=== PATIENT | female | born 1965 | race Caucasian/White ===

== ENCOUNTER → 2016-08-16 | Outpatient (CLI) | payer OTHER ==
[~2016-08-16] MED LIST: AMX500CIP PO; AZIT-21 PO; CEPH500C PO; CIPR-225 PO; CLN150C PO; CYCL10TA9 PO; FERR-57 PO; FLC1T PO; GUAI120L29 PO; HYDR-757 PO; IBUP800T26 PO; LORA0.5T; METH4TAB PO; NADO20TA PO; NADOLOL; NAPR-243 PO; NAPR500T PO; NDL40T PO; NF-ACI30T PO; OMEP40CA36 PO; ONDA-42 SL; ONDA4TAB8 SL; OXYC-12 PO; OXYC10TA8 PO; OXYC5CAP10 PO; OXYC5TAB49 PO; OXYC5TAB71; POLY119P5 PO; PRD20T PO; PROP10TA8 PO; PROP20TA5 PO; RABE20TA PO; RNT150T PO; SCR1T PO; SPIR25TA3 PO; SPIR50TA PO; TRAM-42 PO; TRM50T PO; VARE1TAB17 PO
--- OUTSIDE RECORDS SUMMARY | 2016-08-16 09:23 | XMS REPORT | Continuity of Care Document ---
Author Author [facility] Organization [facility] Address Unknown Phone Unavailable Care Team Providers Care Boot And Shoe Repairman Name Role Phone Miley Harrisona PCP [phone] Source Comments Some departments are not documenting in the electronic medical record. If you do not see the information that you expected, contact Release of Information in the Health Information Management department at [phone] for further assistance in locating additional records.[facility] Active Allergies and Adverse Reactions Allergen Noted Date Severity Reactions Comments Sulfa (Sulfonamide 09/08/2013 HIVES Antibiotics) Current Medications Prescription Sig. Disp. Refills Start End Date Status Date nadolol(+) (CORGARD) 20 Take 20 mg by mouth Active mg tablet daily. folic acid (FOLVITE) 1 mg Take 1 mg by mouth daily. Active tablet RABEprazole DR (+) Take 1 Tab by mouth twice 90 Tab 3 07/16/20 Active (ACIPHEX) 20 mg tablet daily. Take 1 cap twice 14 daily x 1 week, then back to 1 cap daily. spironolactone Take 50 mg by mouth twice Active (ALDACTONE) 50 mg tablet daily. oxyCODONE (ROXICODONE) 5 Take 5 mg by mouth at Active mg tablet bedtime as needed for Pain LORazepam (ATIVAN) 0.5 mg Take 1 Tab by mouth every Active tablet 6 hours as needed for Nausea. Active Problems Problem Noted Date Acute erosive gastritis 10/19/2015 Hypoalbuminemia 07/13/2014 Upper GI bleeding 07/12/2014 Anemia 07/12/2014 Thrombocytopenia (HCC) 07/12/2014 Cirrhosis (HCC) 09/17/2013 Hepatitis C 09/17/2013 Esophageal varices (HCC) 09/17/2013 Most Recent Encounters Date Type Specialty Providers Description 09/22/2016 [facility] Jayla Adkins MD EV (esophageal varices) Encounter (HCC) 08/15/2016 Telephone Hepatology Trever Multani MD Medication Follow- up 08/15/2016 Prep for Case Hepatology Jayla Adkins MD 08/15/2016 Telephone Hepatology Jayla Adkins MD Other Social History Tobacco Use Types Packs/Day Years Used Date Former Smoker Cigarettes 1 09/08/2011 - 07/02/2014 Comments: quit Alcohol Use Drinks/Week oz/Week Comments No 0 Standard 0.0 quit drinks or equivalent Last Filed Vital Signs Vital Sign Reading Time Taken Blood Pressure 106/71 04/05/2016 11:04 AM CDT Pulse 52 04/05/2016 11:04 AM CDT Temperature 36.2 C (97.2 F) 04/05/2016 11:04 AM CDT Respiratory Rate 14 04/05/2016 11:04 AM CDT Height 1.575 m (5' 2.01") 04/05/2016 11:04 AM CDT Weight 45.45 kg (100 lb 3.2 oz) 04/05/2016 11:04 AM CDT Body Mass Index 18.32 04/05/2016 11:04 AM CDT Oxygen Saturation 99% 10/19/2015 12:15 PM PILL MAKER Plan of Care Date Type Specialty Providers Description 09/22/2016 Surgery Jayla Adkins MD ESOPHAGOGASTRODUODENOSCOP [address] [place] [address] [phone] (Fax) 10/19/2016 Appointment Hepatology Jayla Adkins MD [address] [place] [address] [phone] (Fax) Health Maintenance Due Date Last Done Comments Physical (Comprehensive) 1972 Exam Pertussis Vaccine 1976 Tetanus Vaccine 1982 Cervical Cancer Screening 1986 Breast Cancer Screening 2005 Colorectal Cancer 2015 Screening Influenza Vaccine 04/13/2016 Results from Last 3 Months Not on file
--- NOTE | 2016-08-16 13:33 | Diagnostic Imaging Report ---
PROCEDURE: US abdomen complete. INDICATION: Splenomegaly. TECHNIQUE: Multiple real-time stanford scale sonographic images of the abdomen. CORRELATION STUDY: 01/24/2016. FINDINGS: LIVER: There is heterogeneously coarse echotexture throughout the liver parenchyma, could be reflective of underlying cirrhosis. No definitive focal lesion. Liver appears to be somewhat small at 13 cm in length. GALLBLADDER: There are irregular areas of gallbladder wall thickening measuring now up to 4 mm in size. Small amount of pericholecystic fluid present. No definitive shadowing gallstones. COMMON BILE DUCT: Normal at 4 mm. PANCREAS: Largely obscured distally. Visualized portions are unremarkable. SPLEEN: Enlarged at 20 x 7 x 6 cm. ABDOMINAL AORTA: Unremarkable, nonaneurysmal. INFERIOR VENA CAVA: Limited in visualization. RIGHT KIDNEY: 11.2 cm. Unremarkable. LEFT KIDNEY: 12.0 cm. Unremarkable. ASCITES: None. IMPRESSION: 1. Coarse heterogeneous nodular contour of the liver parenchyma, suggestive of underlying cirrhosis. 2. Splenomegaly. 3. Irregular areas of gallbladder wall thickening with small amount of pericholecystic fluid. This could be owing to underlying liver disease. No definitive shadowing gallstones or bile duct dilatation. Dictated by: Dictated on workstation # [id number]
== END ==
LOC: RAD 09:19
PROVIDERS: ATTEND Internal Medicine
DX: K70.30 Alcoholic cirrhosis of liver without ascites (principal)
CPT/HCPCS: 76700

== ENCOUNTER 2016-08-21 14:28 | Outpatient (RCR) | payer OTHER ==
[~2016-08-21 14:28] MED LIST changes: -CIPR-225 PO; -ONDA4TAB8 SL; -POLY119P5 PO
--- OUTSIDE RECORDS SUMMARY | 2016-08-21 14:32 | XMS REPORT | Continuity of Care Document ---
Author Author [facility] Organization [facility] Address Unknown Phone Unavailable Care Team Providers Care Tents Assembler Name Role Phone Miley Harrisona PCP [phone] Source Comments Some departments are not documenting in the electronic medical record. If you do not see the information that you expected, contact Release of Information in the Health Information Management department at [phone] for further assistance in locating additional records.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 Plan of Care Date Type Specialty Providers Description 09/22/2016 Surgery Ervin Krishna MD ESOPHAGOGASTRODUODENOSCOP [address] [place] [address] [phone] (Fax) 10/19/2016 Appointment Hepatology Jayla Adkins MD [address] [place] [address] [phone] (Fax) Health Maintenance Due Date Last Done Comments Physical (Comprehensive) 1972 Exam Pertussis Vaccine 1976 Tetanus Vaccine 1982 Cervical Cancer Screening 1986 Breast Cancer Screening 2005 Colorectal Cancer 2015 Screening Influenza Vaccine 04/13/2016 Results from Last 3 Months Not on file
[2016-08-21 14:49] LABS: BASOPHILS % (AUTO) 1 % (0-10); EOSINOPHILS # (AUTO) 0.1 10^3/uL (0.0-0.3); EOSINOPHILS % (AUTO) 4 % (0-10); LYMPHOCYTES # (AUTO) 0.7 X 10^3 (1.0-4.0); LYMPHOCYTES % (AUTO) 21 % (12-44); MEAN CORPUSCULAR HEMOGLOBIN 29 PG (25-34); MEAN CORPUSCULAR HGB CONC 34 G/DL (32-36); MEAN CORPUSCULAR VOLUME 84 FL (80-99); MEAN PLATELET VOLUME 9.6 FL (7.4-10.4); MONOCYTES # (AUTO) 0.2 X 10^3 (0.0-1.0); MONOCYTES % (AUTO) 8 % (0-12); NEUTROPHILS # (AUTO) 2.1 X 10^3 (1.8-7.8); NEUTROPHILS % (AUTO) 67 % (42-75); PLATELET COUNT 73 10^3/uL (130-400); RED BLOOD COUNT 4.21 10^6/uL (4.35-5.85); WHITE BLOOD COUNT 3.1 10^3/uL (4.3-11.0)
[2016-08-21 15:10] LABS: INR 1.3 (0.8-1.4); PROTHROMBIN TIME PATIENT 15.4 SEC (12.2-14.7)
[2016-08-21 15:15] LABS: ALANINE AMINOTRANSFERASE 22 U/L (0-55); ALBUMIN 4.1 G/DL (3.2-4.5); ANION GAP 6 MMOL/L (5-14); ASPARTATE AMINO TRANSFERASE 27 U/L (5-34); BILIRUBIN,TOTAL 0.8 MG/DL (0.1-1.0); BLOOD UREA NITROGEN 9 MG/DL (7-18); BUN/CREATININE RATIO 12; CALCIUM 9.5 MG/DL (8.5-10.1); CARBON DIOXIDE 23 MMOL/L (21-32); CHLORIDE 108 MMOL/L (98-107); CREATININE SERUM 0.78 MG/DL (0.60-1.30); GFR ESTIMATED > 60; GLUCOSE 103 MG/DL (70-105); POTASSIUM 4.2 MMOL/L (3.6-5.0); SODIUM 137 MMOL/L (135-145); TOTAL PROTEIN 7.1 G/DL (6.4-8.2)
[2016-08-22 07:56] LABS: ALPHA-FETO PROTEIN MARKER 3.3 ng/mL (1.5-10.0)
[2016-10-02] MEDS ORDERED: POLY119P5 PO (01:42)
[2016-10-02] MEDS ORDERED: ONDA4TAB8 SL (01:42)
[2016-10-02] MEDS ORDERED: CIPR-225 PO (06:19)
== END 2016-11-19 | disposition home or self-care (01) ==
LOC: ONC 14:28
PROVIDERS: ATTEND Internal Medicine Hematology & Oncology
DX: D69.6 Thrombocytopenia, unspecified (principal); D72.819 Decreased white blood cell count, unspecified; D50.9 Iron deficiency anemia, unspecified; B18.2 Chronic viral hepatitis C; K70.9 Alcoholic liver disease, unspecified; F10.21 Alcohol dependence, in remission; Z79.899 Other long term (current) drug therapy; Z87.891 Personal history of nicotine dependence
CPT/HCPCS: 36415; 80053; 82105; 82728; 83540; 85025; 85610; 99213

== ENCOUNTER 2016-10-01 21:30 | Emergency (ER) | payer OTHER ==
[~2016-10-01] VITALS: Ht 157.5 cm; Wt 46.3 kg
--- OUTSIDE RECORDS SUMMARY | 2016-10-01 21:36 | XMS REPORT | Continuity of Care Document ---
Author Author [facility] Organization [facility] Address Unknown Phone Unavailable Care Team Providers Care Registered Nurse Post Partum Name Role Phone Hunter Judy PCP [phone] Source Comments Some departments are not documenting in the electronic medical record. If you do not see the information that you expected, contact Release of Information in the Health Information Management department at [phone] for further assistance in locating additional records.[facility] Active Allergies and Adverse Reactions Allergen [...] Encounters Date Type Specialty Providers Description 09/22/2016 [facility] Jayla Adkins MD EV (esophageal varices) Encounter (HCC) 09/22/2016 Endo R[facility] Enc Hepatology Jayla Adkins MD 09/22/2016 Surgery Ervin Krishna MD ESOPHAGOGASTRODUODENOSCOP Y 09/21/2016 Anesthesia Felicia Mullen RN Event 08/15/2016 Telephone Hepatology Trever Multani MD Medication [...] Vital Sign Reading Time Taken Blood Pressure 103/61 09/22/2016 2:54 PM DEEP FRYER ASSEMBLER Pulse 56 09/22/2016 2:54 PM DEEP FRYER ASSEMBLER Temperature 36.4 C (97.5 F) 09/22/2016 2:30 PM DEEP FRYER ASSEMBLER Respiratory Rate 14 04/05/2016 11:04 AM CDT Height 1.575 m (5' 2") 09/22/2016 1:53 PM DEEP FRYER ASSEMBLER Weight 45.36 kg (100 lb) 09/22/2016 1:53 PM DEEP FRYER ASSEMBLER Body Mass Index 18.29 09/22/2016 1:53 PM DEEP FRYER ASSEMBLER Oxygen Saturation 100% 09/22/2016 2:54 PM DEEP FRYER ASSEMBLER Plan of Care Date Type Specialty Providers Description 10/19/2016 Appointment Hepatology Jayla Adkins MD [address] [facility] [address] [place] [address] [phone] (Fax) Health Maintenance Due Date Last Done Comments Physical (Comprehensive) 1972 Exam Pertussis Vaccine 1976 Tetanus Vaccine 1982 Cervical Cancer Screening 1986 Breast Cancer Screening 2005 Colorectal Cancer 2015 Screening Influenza Vaccine 04/13/2016 Procedures from Last 3 Months Procedure Name Priority Date/Time Associated Diagnosis Comments TELEMETRY STRIPS-SCAN 09/25/2016 Results for this 12:22 PM DEEP FRYER ASSEMBLER procedure are in the results section. ESOPHAGOGASTRODUODENOSCOP 09/22/2016 EV (esophageal varices) Y 2:20 PM DEEP FRYER ASSEMBLER (HCC) Special Needs 09/21/2016 Called to see if she could come in earlier for her appointmen t tomorrow. She states she is not able to come in earlier related to her ride. SS2nd Call - EGD - Cld pt & scheduled appt 08/21/16 @ 1:19 pm ()Pt returned my call & lvms @ 9:26 am ()1st Call - EGD - Lvms 08/18/16 @ 3:14 pm () Results from Last 3 Months TELEMETRY STRIPS-SCAN (09/25/2016 12:22 PM) Narrative Ordered by an unspecified provider. EGD REPORT (09/22/2016 2:10 PM) Component Value Range Provation Report Patient Name: Mohamud Leonard Procedure Date: 09/22/2016 2:10 PM CSN: [id number] Date of : 1965 Gender: Female Attending Physician: Ervin Krishna MD Procedure: Upper GI endoscopy Indications: Fo llow-up of esophageal varices Providers: Ervin Krishna MD (Doctor), Justyna Duron RN (Nurse), Buck Kearns (Pot Operator) Referring Physician: Jayla Adkins MD Medications: Mo nitored Anesthesia Care Complications: No immediate complications. Procedure: Pre-Anesthesia Assessment: - Prior to the procedure, a History and Physical was performed, and patient medications and allergies were reviewed. The patient's tolerance of previous anesthesia was also reviewed. The risks and benefits of the procedure and the sedation options and risks were discussed with the patient. All questions were answered, and informed consent was obtained. Prior Anticoagulants: The patient has taken no previous anticoagulant or antiplatelet agents. ASA Grade Assessment: II - A patient with mild systemic disease. After reviewing the risks and benefits, the patient was deemed in satisfactory condition to undergo the procedure. After obtaining informed consent, the endoscope was passed under direct vision. Throughout the procedure, the patient's blood pressure, pulse, and oxygen saturations were monitored continuously. The Endoscope [id number] was introduced through the mouth, and advanced to the second part of duodenum. The upper GI endoscopy was accomplished without difficulty. The patient tolerated the procedure well. Findings: The Z-line was regular and was found 40 cm from the incisors. A post variceal banding scar was found in the lower third of the esophagus. The scar tissue was healthy in appearance. NO esophageal varices were seen The examined duodenum was normal. Mild portal hypertensive gastropathy was found in the gastric body. Impression: - Z-line regular, 40 cm from the incisors. - Scar in the lower third of the esophagus. - NO esophageal varices were seen - Normal stomach. - Normal examined duodenum. - No specimens collected. Estimated Blood Loss: Estimated blood loss: none. Recommendation: - Patient has a contact number available for emergencies. The signs and symptoms of potential delayed complications were discussed with the patient. Return to normal activities tomorrow. Written discharge instructions were provided to the patient. - Resume previous diet. - Continue present medications. - Return to liver clinic as previously scheduled. Scope In: 2:21:50 PM Scope Out: 2:23:37 PM Total Procedure Duration Time 0 hours 1 minute 47 seconds Procedure Code(s): --- Professional --- 52921, Esophagogastroduodenoscopy, flexible, transoral; diagnostic, including collection of specimen(s) by brushing or washing, when performed (separate procedure) Diagnosis Code(s): --- Professional --- I85.00, Esophageal varices without bleeding K22.8, Other specified diseases of esophagus CPT copyright 2015 [employer]. All rights reserved. The codes documented in this report are preliminary and upon childrens club attendant review may be revised to meet current compliance requirements. Attending Participation: I personally performed the entire procedure. MD Ervin Manning MD 09/22/2016 2:30:30 PM The attending physician has electronically signed and finalized this document. Number of Addenda: 0 Note Initiated On: 09/22/2016 2:10 PM
[2016-10-01] MEDS ORDERED: NS IV 1000 ML 1,000 ML IV ONE (23:00)
[2016-10-01] MEDS ORDERED: ONDANSETRON 4 MG/2 ML (SDV) Z0FRAN IVP ONE (23:00)
[2016-10-01 23:12] LABS: KETONES,URINE 1+ (NEGATIVE); LEUKOCYTE ESTERASE ,URINE 3+ (NEGATIVE); NITRITE,URINE POSITIVE (NEGATIVE); PH,URINE 6.5 (5-9); PROTEIN,URINE 2+ (NEGATIVE); UROBILINOGEN,URINE 4 MG/DL (NORMAL)
[2016-10-01 23:26] LABS: BASOPHILS % (AUTO) 0 % (0-10); EOSINOPHILS # (AUTO) 0.1 10^3/uL (0.0-0.3); EOSINOPHILS % (AUTO) 2 % (0-10); LYMPHOCYTES # (AUTO) 0.5 X 10^3 (1.0-4.0); LYMPHOCYTES % (AUTO) 11 % (12-44); MEAN CORPUSCULAR HEMOGLOBIN 29 PG (25-34); MEAN CORPUSCULAR HGB CONC 35 G/DL (32-36); MEAN CORPUSCULAR VOLUME 83 FL (80-99); MEAN PLATELET VOLUME 10.3 FL (7.4-10.4); MONOCYTES # (AUTO) 0.4 X 10^3 (0.0-1.0); MONOCYTES % (AUTO) 10 % (0-12); NEUTROPHILS # (AUTO) 3.4 X 10^3 (1.8-7.8); NEUTROPHILS % (AUTO) 77 % (42-75); PLATELET COUNT 61 10^3/uL (130-400); RED BLOOD COUNT 4.49 10^6/uL (4.35-5.85); RED CELL DISTRIBUTION WIDTH 14.2 % (10.0-14.5); WHITE BLOOD COUNT 4.4 10^3/uL (4.3-11.0)
[2016-10-01 23:32] LABS: BILIRUBIN,URINE 1+ (NEGATIVE)
[2016-10-01 23:35] LABS: INR 1.4 (0.8-1.4); PROTHROMBIN TIME PATIENT 16.4 SEC (12.2-14.7)
[2016-10-01 23:45] LABS: ALANINE AMINOTRANSFERASE 22 U/L (0-55); ALBUMIN 4.1 G/DL (3.2-4.5); ANION GAP 12 MMOL/L (5-14); ASPARTATE AMINO TRANSFERASE 29 U/L (5-34); BILIRUBIN,TOTAL 1.4 MG/DL (0.1-1.0); BLOOD UREA NITROGEN 15 MG/DL (7-18); BUN/CREATININE RATIO 17; CALCIUM 9.3 MG/DL (8.5-10.1); CARBON DIOXIDE 17 MMOL/L (21-32); CHLORIDE 110 MMOL/L (98-107); CREATININE SERUM 0.86 MG/DL (0.60-1.30); GFR ESTIMATED > 60; GLUCOSE 121 MG/DL (70-105); LIPASE 36 U/L (8-78); MAGNESIUM 2.1 MG/DL (1.8-2.4); POTASSIUM 3.6 MMOL/L (3.6-5.0); SODIUM 139 MMOL/L (135-145); TOTAL PROTEIN 7.1 G/DL (6.4-8.2)
[2016-10-02] MEDS ORDERED: fentaNYL INJECTION 100 MCG/2 ML AMP IVP ONE
[2016-10-02] MEDS ORDERED: cefTRIAXone INJECTION 1,000 MG in NS (IVPB) 50 ML IV ONE ×2
[2016-10-02] MEDS ORDERED: NS 100 ML (IVPB) BAG IV ONE (00:30)
[2016-10-02] MEDS ORDERED: IOHEXOL 350 MG/ML 100 ML (OMNIPAQUE 350) VIAL IV ONE (00:30)
[2016-10-02] MEDS ORDERED: KETOROLAC 30 MG/ML VIAL IVP ONE ×2 (01:15→01:45)
--- NOTE | 2016-10-02 01:41 | ED Abdominal Pain ---
General Chief Complaint: Abdominal/GI Problems Stated Complaint: COLD SWEATS, N/V, LEG NUMBNESS Nursing Triage Note: c/o abdomen pain with n/v Sepsis Screen: No Definite Risk Source of Information: Patient Exam Limitations: No Limitations History of Present Illness Time Seen By Provider: 22:48 Initial Comments This 51-year-old woman presents to emergency room with complaints of leg aches, abdominal discomfort, and vomiting today. She also reports recent sinus problems and dental problems and wonders if this may be causing her other feelings of illness. She has an intense backache. She denies any urinary symptoms. She has had a little bit of cough and runny nose recently. She denies fever. Her primary issue seems to be abdominal pain at this time. She has a history of cirrhosis from prior alcohol abuse. Allergies and Home Medications Allergies Coded Allergies: Sulfa (Sulfonamide Antibiotics) (Unverified Allergy, Intermediate, HIVES, 08/27/12) Home Medications Folic Acid 1 Mg Tab 2 MG PO DAILY (Reported) Lorazepam 0.5 Mg Tablet #21 (Reported) Nadolol 20 Mg Tablet 0.5 EACH PO DAILY (Reported) Ondansetron 4 Mg Tab.rapdis #10 4 MG SL Q4H Prescribed by: YARIEL PETERSON on 10/02/16 0142 Oxycodone HCl 5 Mg Tablet #28 (Reported) Polyethylene Glycol 3350 119 Gm Powder #1 17 GM PO TID One capful in 8-12 ounces of water or juice Prescribed by: YARIEL PETERSON on 10/02/16 0142 Rabeprazole Sod Unknown Strength Tab Unknown Dose PO (Reported) Spironolactone 50 Mg Tablet #60 50 MG PO BID Prescribed by: STU YAN on 07/25/14 1455 Review of Systems Constitutional: no symptoms reported EENTM: No Symptoms Reported Respiratory: See HPI Cardiovascular: No Symptoms Reported Gastrointestinal: See HPI Genitourinary: No Symptoms Reported Musculoskeletal: see HPI Skin: no symptoms reported Psychiatric/Neurological: See HPI Headache Endocrine: No Symptoms Reported Past Euckyal-Yltnut-Aidjiy Hx Patient Social History Alcohol Use: Past History Recreational Drug Use: No Smoking Status: Never a Smoker Recent Foreign Travel: No Contact w/Someone Who Travel: No Recent Infectious Disease Expo: No Recent Hopitalizations: No Immunizations Up To Date Tetanus Booster (TDap): Less than 5yrs Date of Pneumonia Vaccine: May 13, 2013 Date of Influenza Vaccine: Jun 15, 2014 Seasonal Allergies Seasonal Allergies: No Surgeries HX Surgeries: Yes Surgeries: Section, Oophorectomy Respiratory Hx Respiratory Disorders: Yes Respiratory Disorders: COPD Cardiovascular Hx Cardiac Disorders: No Neurological Hx Neurological Disorders: No 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 System Hx 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 Disorders: No Sexually Transmitted Disease: No 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 Genitourinary Hx Genitourinary Disorders: No Gastrointestinal Hx Gastrointestinal Disorders: Yes (esophageal varices) Gastrointestinal Disorders: Gastrointestinal Bleed, Esophageal Varices, Ulcer, Cirrhosis Musculoskeletal Hx Musculoskeletal Disorders: No Endocrine Hx Endocrine Disorders: No HEENT HX ENT Disorders: No Loss of Vision: Denies Hearing Impairment: Denies Cancer Hx Cancer: No Psychosocial Hx Psychiatric Problems: No Behavioral Health Disorders: Depression Integumentary HX Skin/Integumentary Disorder: No Blood Transfusions Hx Blood Disorders: No Family Medical History Significant Family History: No Pertinent Family Hx Physical Exam Vital Signs VS - Last 72 Hours, by Label 10/01/16 10/02/16 22:15 01:53 Temp 97.1 98.0 Pulse 52 54 Resp 22 20 B/P 126/85 Pulse Ox 98 97 Capillary Refill : Less Than 3 Seconds General Appearance: WD/WN no apparent distress HEENT: PERRL/EOMI normal ENT inspection other (oropharynx somewhat dry) Neck: normal inspection Respiratory: lungs clear normal breath sounds no respiratory distress no accessory muscle use Cardiovascular: regular rate, rhythm no edema no murmur Gastrointestinal: normal bowel sounds soft tenderness (throughout the left lateral abdomen and left lower quadrant. 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 nml as tested no motor/sensory deficits alert normal mood/affect oriented x 3 Skin: normal color warm/dry Progress/Results/Core Measures Results/Orders Lab Results Laboratory Tests Test 10/01/16 23:04 10/01/16 23:15 Range/Units Urine Bacteria LARGE H /HPF Urine Bilirubin 1+ H NEGATIVE Urine Casts NONE /LPF Urine Clarity VERY CLOUDY H Urine Color SARITA H Urine Crystals NONE /LPF Urine Culture Indicated YES Urine Glucose (UA) NEGATIVE NEGATIVE Urine Ketones 1+ H NEGATIVE Urine Leukocyte Esterase 3+ H NEGATIVE Urine Mucus NEGATIVE /LPF Urine Nitrite POSITIVE H NEGATIVE Urine Protein 2+ H NEGATIVE Urine RBC 0-2 /HPF Urine RBC (Auto) 1+ H NEGATIVE Urine Specific [place] 1.020 1.016-1.022 Urine Urobilinogen 4 H NORMAL MG/DL Urine WBC 10-25 H /HPF Urine pH 6.5 5-9 Alanine Aminotransferase (ALT/SGPT) 22 0-55 U/L Albumin 4.1 3.2-4.5 G/DL Alkaline Phosphatase 84 40-136 U/L Anion Gap 12 5-14 MMOL/L Aspartate Amino Transf (AST/SGOT) 29 5-34 U/L BUN/Creatinine Ratio 17 Basophils # (Auto) 0.0 0.0-0.1 10^3/uL Basophils (%) (Auto) 0 0-10 % Blood Urea Nitrogen 15 7-18 MG/DL C-Reactive Protein High Sensitivity 0.13 0.00-0.50 MG/DL Calcium Level 9.3 8.5-10.1 MG/DL Carbon Dioxide Level 17 L 21-32 MMOL/L Chloride Level 110 H 98-107 MMOL/L Creatinine 0.86 0.60-1.30 MG/DL Eosinophils # (Auto) 0.1 0.0-0.3 10^3/uL Eosinophils (%) (Auto) 2 0-10 % Estimat Glomerular Filtration Rate > 60 Glucose Level 121 H 70-105 MG/DL Hematocrit 37 35-52 % Hemoglobin 12.9 11.5-16.0 G/DL INR Comment 1.4 0.8-1.4 Lipase 36 8-78 U/L Lymphocytes # (Auto) 0.5 L 1.0-4.0 X 10^3 Lymphocytes (%) (Auto) 11 L 12-44 % Magnesium Level 2.1 1.8-2.4 MG/DL Mean Corpuscular Hemoglobin 29 25-34 PG Mean Corpuscular Hemoglobin Concent 35 32-36 G/DL Mean Corpuscular Volume 83 80-99 FL Mean Platelet Volume 10.3 7.4-10.4 FL Monocytes # (Auto) 0.4 0.0-1.0 X 10^3 Monocytes (%) (Auto) 10 0-12 % Neutrophils # (Auto) 3.4 1.8-7.8 X 10^3 Neutrophils (%) (Auto) 77 H 42-75 % Platelet Count 61 L 130-400 10^3/uL Potassium Level 3.6 3.6-5.0 MMOL/L Prothrombin Time 16.4 H 12.2-14.7 SEC Red Blood Count 4.49 4.35-5.85 10^6/uL Red Cell Distribution Width 14.2 10.0-14.5 % Sodium Level 139 135-145 MMOL/L Total Bilirubin 1.4 H 0.1-1.0 MG/DL Total Protein 7.1 6.4-8.2 G/DL White Blood Count 4.4 4.3-11.0 10^3/uL My Orders Orders-YARIEL ROBLES MD Cbc With Automated Diff (10/01/16 23:00) Comprehensive Metabolic Panel (10/01/16 23:00) Lipase (10/01/16 23:00) Magnesium (10/01/16 23:00) Protime With Inr (10/01/16 23:00) Ua Culture If Indicated (10/01/16 23:00) Saline Lock/Iv-Start (10/01/16 23:00) Ns Iv 1000 Ml (Sodium Chloride 0.9%) (10/01/16 23:00) Ondansetron Injection (Zofran Injectio (10/01/16 23:00) Urine Culture (10/01/16 23:04) Ceftriaxone Injection (Rocephin Injectio (10/02/16 00:00) Ct Abdomen/Pelvis W (10/02/16 00:01) Fentanyl Injection (Sublimaze Injection (10/02/16 00:00) Iohexol Injection (Omnipaque 350 Mg/Ml 1 (10/02/16 00:30) Ns (Ivpb) (Sodium Chloride 0.9% Ivpb Bag (10/02/16 00:30) Hs C Reactive Protein (10/02/16 01:05) Ketorolac Injection (Toradol Injection) (10/02/16 01:15) Methylnaltrexone Injection (Relistor Inj (10/02/16 01:45) Bisacodyl Suppository (Dulcolax Supposit (10/02/16 01:45) Ketorolac Injection (Toradol Injection) (10/02/16 01:45) Medications Given in ED Current Medications Medications Dose Ordered Sig/Nabor Route Start Time Stop Time Status Last Admin Dose Admin Bisacodyl 10 mg ONCE ONCE NE 10/02/16 01:45 10/02/16 01:46 DC 10/02/16 01:41 10 MG Ceftriaxone Sodium/Sodium Chloride 50 ml @ 100 mls/hr ONCE ONCE IV 10/02/16 00:00 10/02/16 00:29 DC 10/02/16 00:02 100 MLS/HR Fentanyl Citrate 50 mcg ONCE ONCE IVP 10/02/16 00:00 10/02/16 00:01 DC 10/02/16 00:02 50 MCG Iohexol 100 ml ONCE ONCE IV 10/02/16 00:30 10/02/16 00:31 DC 10/02/16 00:22 100 ML Ketorolac Tromethamine 15 mg ONCE ONCE IVP 10/02/16 01:15 10/02/16 01:16 DC 10/02/16 01:14 15 MG Ketorolac Tromethamine 15 mg ONCE ONCE IVP 10/02/16 01:45 10/02/16 01:46 DC 10/02/16 01:41 15 MG Methylnaltrexone [place] 12 mg ONCE ONCE SQ 10/02/16 01:45 10/02/16 01:46 DC 10/02/16 01:41 12 MG Ondansetron HCl 4 mg 4 mg ONCE ONCE IVP 10/01/16 23:00 10/01/16 23:02 DC 10/01/16 23:16 4 MG Sodium Chloride 100 ml ONCE ONCE IV 10/02/16 00:30 10/02/16 00:31 DC 10/02/16 00:22 80 ML Sodium Chloride 1,000 ml @ 0 mls/hr Q0M ONCE IV 10/01/16 23:00 10/01/16 23:02 DC 10/01/16 23:16 0 MLS/HR Vital Signs/I&O Vital Sign - Last 12Hours 10/01/16 10/02/16 22:15 01:53 Temp 97.1 98.0 Pulse 52 54 Resp 22 20 B/P 126/85 Pulse Ox 98 97 Blood Pressure Mean: 99 Progress Note : Progress Note Patient was initially treated with fentanyl but her pain rebounded. Labs were relatively unremarkable. CT was ordered for further evaluation of her pain. She had an abnormal gallbladder ultrasound performed about a month ago. She didn't get definitive follow-up on the ultrasound. CT scan today again shows abnormal gallbladder findings but repeat examination shows no tenderness over the gallbladder. Her tenderness is located more in the left lower quadrant and seems to be intermittent and spastic. Colitis could not be excluded on the CT scan but this did not correlate with vital signs or labs. There is no tachycardia, fever, leukocytosis, or elevation in CRP. I believe her pain is due to constipation. Dulcolax and Relistor were administered prior to dismissal. Pain was further treated with Toradol. Rocephin was administered for treatment of urinary tract infection. Diagnostic Imaging Diagonstic Imaging: CT Plain Films/CT/US/NM/MRI: abdomen, pelvis Comments CT of the abdomen and pelvis was viewed by me and Stat Rad report was reviewed. There is edema and infiltration of the fat near the pancreas. However, this did not correlate with labs to suggest pancreatitis. There was some question of thickening of the ascending and proximal transverse colon. Colitis could not be excluded. However, this did not correlate with labs or exam. Splenomegaly was noted both on imaging and exam. There is some gallbladder wall thickening and/or pericholecystic fluid suspected. No CT evidence of calcified gallstones. Follow-up gallbladder ultrasound was suggested if clinically significant. However, patient had no right upper quadrant tenderness and no labs or vital signs to suggest acute cholecystitis. Departure Impression Impression: Primary Impression: Abdominal pain, left lower quadrant Additional Impressions: Constipation Qualified Code: K59.00 - Constipation, unspecified Urinary tract infection Qualified Code: N39.0 - Urinary tract infection, site not specified Disposition: 01 HOME, SELF-CARE Condition: Improved Departure-Patient Inst. Decision time for Depature: 01:30 Referrals: MIKE AGUILAR DO (PCP) Primary Care Physician HEATHER FINE (Family) Primary Care Physician Patient Instructions: Acute Abdomen (Belly Pain), Adult (DC), Constipation in Adults Add. Discharge Instructions: Consume primarily a clear liquid diet until a good bowel movement is produced. Use MiraLAX 2 or 3 times daily as prescribed until a good bowel movement is produced. Return to the ER if symptoms worsen. Avoid use of narcotics such as oxycodone until constipation resolves. Alternatively, you may use ibuprofen up to 400 mg every 6 hours as needed. Follow-up with your doctor as soon as possible. Ask your doctor about referral to a surgeon for further evaluation of your abnormal gallbladder ultrasound. Fill the Zofran prescription if needed for treatment of nausea. All discharge instructions reviewed with patient and/or family. Voiced understanding. Scripts Ciprofloxacin HCl (Cipro)500 Mg [id number] Mg PO BID #10 TAB Prov:YARIEL ROBLES MD 10/02/16 Ondansetron (Zofran Odt)4 Mg Tab.rapdis4 Mg SL Q4H #10 TAB Prov:YARIEL ROBLES MD 10/02/16 Polyethylene Glycol 3350 (Miralax)119 Gm Vrgklx77 Gm PO TID Constipation #1 EA One capful in 8-12 ounces of water or juice Prov:YARIEL ROBLES MD 10/02/16 Copy Copies To 1: MIKE AGUILAR JOSHUA T MD Oct 02, 2016 01:41
[2016-10-02] MEDS ORDERED: POLY119P5 PO (01:42)
[2016-10-02] MEDS ORDERED: ONDA4TAB8 SL (01:42)
[2016-10-02] MEDS ORDERED: METHYLNALTREXONE 12 MG/0.6 ML (RELISTOR) VIAL SQ ONE (01:45)
[2016-10-02] MEDS ORDERED: BISACODYL 10 MG SUPP (DULCOLAX) PR ONE (01:45)
[2016-10-02 01:53] VITALS: BP 122/80
--- NOTE | 2016-10-02 06:13 | Diagnostic Imaging Report ---
PROCEDURE: CT abdomen and pelvis with contrast. TECHNIQUE: Multiple contiguous axial images were obtained through the abdomen and pelvis after administration of intravenous contrast. Indication: Generalized abdominal pain with nausea and vomiting for 1 day. Comparison: 07/12/2014. Discussion: The visualized lung bases are well-aerated. The gallbladder appears diffusely thickwalled which is a nonspecific finding and could be due to acalculous cholecystitis or chronic liver disease. Gallbladder wall thickening was noted on gallbladder ultrasound from 08/16/2016. No radiopaque stone identified. Splenomegaly is stable measuring 18.6 x 11.5 x 6.6 cm. No liver mass identified. Mild inflammatory changes are noted involving the pancreas which were present to some extent on the previous exam and may represent chronic changes, however, acute pancreatitis cannot be excluded. Recommend clinical and laboratory correlation with lipase levels. Kidneys appear within normal limits bilaterally. The adrenal glands are unremarkable. There is trace perihepatic and pelvic ascites, decreased from prior. The uterus and urinary bladder are unremarkable. Mild constipation. No obstruction, pneumatosis, or pneumoperitoneum. The ascending and transverse colon appear mildly thickwalled which is a nonspecific finding and could represent reactive changes from underlying ascites though underlying colitis cannot be excluded. Recommend clinical correlation. No acute osseous abnormality. Shotty retroperitoneal lymph nodes are stable. Impression: 1. Changes of chronic lung disease are again demonstrated. There is persistent gallbladder wall thickening and mild surrounding fluid which is nonspecific and could be related to chronic liver disease though underlying acute process cannot be excluded. Additional mild inflammatory changes are noted along the pancreas which can also be seen with acute pancreatitis. 2. Splenomegaly, stable. 3. Diffuse wall thickening of the ascending and transverse colon is nonspecific though could be seen with reactive changes in the setting of chronic liver disease and ascites though underlying colitis cannot be excluded. 4. Agree with preliminary report. Dictated by: Dictated on workstation # [id number]
[2016-10-02] MEDS ORDERED: CIPR-225 PO (06:19)
== END 2016-10-02 01:53 | disposition home or self-care (01) ==
LOC: EDUNIT# 21:30 → ER 21:32
DX: R10.32 Left lower quadrant pain (principal); N39.0 Urinary tract infection, site not specified; K59.00 Constipation, unspecified; J44.9 Chronic obstructive pulmonary disease, unspecified; Z79.899 Other long term (current) drug therapy
CPT/HCPCS: 36415; 74177; 80053; 81000; 83690; 83735; 85025; 85610; 86141; 87088; 87186; 96361; 96365; 96372; 96375

== ENCOUNTER 2017-03-01 14:52 | Outpatient (RCR) | payer OTHER ==
[~2017-03-01 14:52] MED LIST changes: +CIPR-225 PO; +ONDA4TAB8 SL; +POLY119P5 PO
[2017-03-01 15:03] LABS: BASOPHILS % (AUTO) 1 % (0-10); EOSINOPHILS # (AUTO) 0.1 10^3/uL (0.0-0.3); EOSINOPHILS % (AUTO) 5 % (0-10); LYMPHOCYTES # (AUTO) 0.6 X 10^3 (1.0-4.0); LYMPHOCYTES % (AUTO) 21 % (12-44); MEAN CORPUSCULAR HEMOGLOBIN 28 PG (25-34); MEAN CORPUSCULAR HGB CONC 33 G/DL (32-36); MEAN CORPUSCULAR VOLUME 85 FL (80-99); MEAN PLATELET VOLUME 9.9 FL (7.4-10.4); MONOCYTES # (AUTO) 0.3 X 10^3 (0.0-1.0); MONOCYTES % (AUTO) 9 % (0-12); NEUTROPHILS # (AUTO) 1.8 X 10^3 (1.8-7.8); NEUTROPHILS % (AUTO) 64 % (42-75); PLATELET COUNT 61 10^3/uL (130-400); RED CELL DISTRIBUTION WIDTH 14.5 % (10.0-14.5); WHITE BLOOD COUNT 2.9 10^3/uL (4.3-11.0)
[2017-03-01 15:40] LABS: ALANINE AMINOTRANSFERASE 25 U/L (0-55); ALBUMIN 3.9 GM/DL (3.2-4.5); ANION GAP 8 MMOL/L (5-14); ASPARTATE AMINO TRANSFERASE 30 U/L (5-34); BILIRUBIN,TOTAL 1.1 MG/DL (0.1-1.0); BLOOD UREA NITROGEN 13 MG/DL (7-18); BUN/CREATININE RATIO 17; CALCIUM 9.8 MG/DL (8.5-10.1); CARBON DIOXIDE 23 MMOL/L (21-32); CHLORIDE 107 MMOL/L (98-107); CREATININE SERUM 0.76 MG/DL (0.60-1.30); GFR ESTIMATED > 60; GLUCOSE 84 MG/DL (70-105); SODIUM 138 MMOL/L (135-145); TOTAL PROTEIN 7.2 GM/DL (6.4-8.2)
[2017-03-02 08:01] LABS: ALPHA-FETO PROTEIN MARKER 3.6 ng/mL (1.5-10.0)
== END 2017-05-12 | disposition home or self-care (01) ==
LOC: ONC 14:52
PROVIDERS: ATTEND Internal Medicine Hematology & Oncology
DX: D69.6 Thrombocytopenia, unspecified; F10.21 Alcohol dependence, in remission; Z79.899 Other long term (current) drug therapy; K70.9 Alcoholic liver disease, unspecified; D50.9 Iron deficiency anemia, unspecified; Z87.891 Personal history of nicotine dependence; B18.2 Chronic viral hepatitis C; D72.819 Decreased white blood cell count, unspecified
CPT/HCPCS: 36415; 80053; 82105; 82728; 83540; 85025; 99213

== ENCOUNTER → 2017-04-12 | Outpatient (CLI) | payer OTHER | LOC: RAD 14:28 | PROVIDERS: ATTEND Nurse Practitioner Community Health | DX: Z12.31 Encounter for screening mammogram for malignant neoplasm of breast (principal) | CPT/HCPCS: 77067 ==

== ENCOUNTER → 2017-04-19 | Outpatient (CLI) | payer OTHER ==
--- NOTE | 2017-04-19 10:01 | Diagnostic Imaging Report ---
PROCEDURE: US abdomen complete. TECHNIQUE: Multiple real-time grayscale images were obtained over the abdomen in various projections. INDICATION: Splenomegaly. The previous abdominal ultrasound exam of 08/16/2016, noted that the spleen was enlarged. The spleen was estimated to be 20 x 7 x 6 cm. On this study the spleen now measures 17.2 x 7.0 x 6.6 cm. Also, as noted on the prior exam, the liver is small measuring approximately 13 cm. On the previous exam the appearance of the liver did raise the question of cirrhosis. There is no focal mass involving the liver, and the biliary tree is not abnormally dilated. There is no evidence for cholelithiasis, but the gallbladder wall is slightly thickened measuring 5 mm. There also appears to be a small amount of pericholecystic fluid present. The kidneys, pancreas, aorta, and inferior vena cava are unremarkable for an acute abnormality. A small amount of ascites was noted. IMPRESSION: 1. When compared to the previous study there does not appear to have been any significant change. The appearance of the spleen and the liver may be related to cirrhosis. Clinical followup is recommended. 2. There is a trace amount of fluid about the gallbladder. This is nonspecific. If there is clinical concern regarding acute cholecystitis, then a nuclear medicine hepatobiliary scan would be recommended for further study. Dictated by: Dictated on workstation # [id number]
== END ==
LOC: RAD 08:49
PROVIDERS: ATTEND Internal Medicine Hematology & Oncology
DX: R16.1 Splenomegaly, not elsewhere classified (principal)
CPT/HCPCS: 76700

== ENCOUNTER → 2017-10-11 | Outpatient (CLI) | payer OTHER ==
[~2017-10-11] MED LIST changes: +NAPR-1071 PO; -NAPR500T PO; +OXYC-529; -OXYC5TAB71
--- NOTE | 2017-10-11 16:44 | RADIOLOGY REPORT ---
NAME: MARY SAUCEDA [facility] REC#: [id number] PT STATUS: REG CLI : 1965 PHYSICIAN: ARMIDA SCHULTZ APRN ADMIT DATE: 10/11/17/RAD CORRECTED Signed Date of Exam:10/11/17 US ABDOMEN COMPLETE [id number] PROCEDURE: US abdomen complete. TECHNIQUE: Multiple real-time grayscale images were obtained over the abdomen in various projections. INDICATION: Cirrhosis of the liver The liver parenchyma is homogeneous. There is mild gallbladder wall thickening. There are no stones in the gallbladder. Common duct is not dilated. Pancreas is normal. The spleen is enlarged measuring 17.3 cm in length. IVC are normal. Right kidney measures 10.8 cm in length. Left kidney measures 12.8 cm in length. There is no mass, calculus or hydronephrosis in either kidney. No ascites. IMPRESSION: Splenomegaly. Portal vein is patent but mildly dilated measuring 13 mm in diameter. Dictated by: Dictated on workstation # [id number] Dict: 10/11/17 1019 Trans: 10/11/[address] [facility] [id number] Interpreted by: TETO WASHINGTON MD Electronically signed by: TETO WASHINGTON MD 10/11/17 1333 [facility]
== END ==
LOC: RAD 09:27
PROVIDERS: ATTEND Nurse Practitioner Adult Health
DX: K70.30 Alcoholic cirrhosis of liver without ascites (principal); I85.10 Secondary esophageal varices without bleeding; R16.1 Splenomegaly, not elsewhere classified
CPT/HCPCS: 76700

== ENCOUNTER 2018-03-07 14:01 | Outpatient (RCR) | payer OTHER ==
[2018-03-07 14:04] LABS: BASOPHILS % (AUTO) 1 % (0-10); EOSINOPHILS # (AUTO) 0.1 10^3/uL (0.0-0.3); EOSINOPHILS % (AUTO) 2 % (0-10); HEMATOCRIT 35 % (35-52); HEMOGLOBIN 12.4 G/DL (11.5-16.0); LYMPHOCYTES # (AUTO) 0.7 X 10^3 (1.0-4.0); LYMPHOCYTES % (AUTO) 21 % (12-44); MEAN CORPUSCULAR HEMOGLOBIN 30 PG (25-34); MEAN CORPUSCULAR HGB CONC 35 G/DL (32-36); MEAN CORPUSCULAR VOLUME 84 FL (80-99); MONOCYTES # (AUTO) 0.3 X 10^3 (0.0-1.0); MONOCYTES % (AUTO) 8 % (0-12); NEUTROPHILS # (AUTO) 2.3 X 10^3 (1.8-7.8); NEUTROPHILS % (AUTO) 68 % (42-75); PLATELET COUNT 61 10^3/uL (130-400); RED BLOOD COUNT 4.16 10^6/uL (4.35-5.85); RED CELL DISTRIBUTION WIDTH 13.8 % (10.0-14.5); WHITE BLOOD COUNT 3.4 10^3/uL (4.3-11.0)
[2018-03-07 14:25] LABS: ALANINE AMINOTRANSFERASE 26 U/L (0-55); ALBUMIN 4.3 GM/DL (3.2-4.5); ALKALINE PHOSPHATASE 145 U/L (40-136); BILIRUBIN,TOTAL 1.6 MG/DL (0.1-1.0); BUN/CREATININE RATIO 19; CALCIUM 9.9 MG/DL (8.5-10.1); CARBON DIOXIDE 26 MMOL/L (21-32); CHLORIDE 105 MMOL/L (98-107); CREATININE SERUM 0.81 MG/DL (0.60-1.30); GFR ESTIMATED > 60; GLUCOSE 95 MG/DL (70-105); POTASSIUM 4.3 MMOL/L (3.6-5.0); SODIUM 136 MMOL/L (135-145); TOTAL PROTEIN 7.5 GM/DL (6.4-8.2)
== END 2018-03-12 | disposition home or self-care (01) ==
LOC: ONC 14:01
PROVIDERS: ATTEND Internal Medicine Hematology & Oncology
DX: D69.6 Thrombocytopenia, unspecified (principal); D72.819 Decreased white blood cell count, unspecified; D50.9 Iron deficiency anemia, unspecified; B18.2 Chronic viral hepatitis C; K70.30 Alcoholic cirrhosis of liver without ascites; I85.10 Secondary esophageal varices without bleeding; R16.1 Splenomegaly, not elsewhere classified; F10.21 Alcohol dependence, in remission; Z79.899 Other long term (current) drug therapy; Z87.891 Personal history of nicotine dependence
CPT/HCPCS: 36415; 80053; 82105; 85025; 99213

== ENCOUNTER 2018-08-05 02:57 | Inpatient (IN) | payer OTHER ==
[2018-08-05] VITALS (8 sets, daily range): BP systolic 78–93; BP diastolic 44–57
[~2018-08-05] VITALS: Ht 157.5 cm; Wt 48.6 kg
--- OUTSIDE RECORDS SUMMARY | 2018-08-05 03:04 | XMS REPORT | Clinical Summary ---
Author Author [facility] Address Unknown Phone Unavailable Care Team Providers Care Mammography Technician Name Role Phone Xuan Solomon MD Unavailable True Arauz MD Unavailable Radha Chance Unavailable Unavailable Jayla Adkins MD Unavailable Eleuterio Berger MD Unavailable Gabriel Kaur RN Unavailable Unavailable Judy Harrison APRN PCP Michelle Edwards RN Unavailable Unavailable Magalis Stinson Unavailable Unavailable Ervin Stevenson MD Unavailable Asiya Culver Unavailable Unavailable Akila Zavala RN Unavailable Yessi Carreon MD Unavailable Source Comments Some departments are not documenting in the electronic medical record. If you do not see the information that you expected, contact Release of Information in the Health Information Management department at [phone] for further assistance in locating additional records.[facility] Allergies Comments Active Allergy Reactions Severity Noted Date Sulfa (Sulfonamide HIVES 09/08/2013 Antibiotics) Medications End Date Status Medication Sig Dispensed Refills Start Date Active nadolol(+) (CORGARD) 20 Take 10 mg by 0 mg tablet mouth daily. Active folic acid (FOLVITE) 1 mg Take 1 mg by 0 tablet mouth daily. Active RABEprazole DR (+) Take 1 Tab by 90 Tab 3 (ACIPHEX) 20 mg tablet mouth twice 4 daily. Take 1 cap twice daily x 1 week, then back to 1 cap daily. Active spironolactone Take 50 mg by 0 (ALDACTONE) 50 mg tablet mouth daily. Active oxyCODONE (ROXICODONE) 5 Take 5 mg by 0 mg tablet mouth at bedtime as needed for Pain Active LORazepam (ATIVAN) 0.5 mg Take 1 Tab by 0 tablet mouth every 6 hours as needed for Nausea. Active ascorbic acid (VITAMIN C) Take 500 mg 0 500 mg tablet by mouth daily. Active MV,CA,MIN/IRON/FA/GUARANA Take 1 tablet 0 /CAFF (ONE-A-DAY WOMEN'S by mouth ACTIVE PO) daily. Active other medication 1 Dose. 0 Medication Name & Strength: Circulation and Nancy Support Dose(how many): 1 tab Frequency(how often): QDAY Active Problems Problem Noted Date Acute erosive gastritis 10/19/2015 Hypoalbuminemia 07/13/2014 Upper GI bleeding 07/12/2014 Anemia 07/12/2014 Thrombocytopenia 07/12/2014 Cirrhosis 09/17/2013 Hepatitis C 09/17/2013 Esophageal varices 09/17/2013 Encounters Care Team Description Date Type Specialty Laurel Emery RN Alcoholic cirrhosis of liver without ascites (HCC) 05/13/2018 Orders Only Transplant Surgery Jayla Adkins MD Other 05/08/2018 Telephone Hepatology from Last 3 Months Family History Medical History Relation Name Comments Cancer Mother Relation Name Status Comments Mother Social History Date Tobacco Use Types Packs/Day Years Used 09/08/2011 - 07/02/2014 Former Smoker Cigarettes 1 Comments: quit Alcohol Use Drinks/Week oz/Week Comments No 0 Standard 0.0 quit drinks or equivalent Sex Assigned at Date Recorded Not on file Industry Job Start Date Occupation Not on file Not on file Not on file Travel End Travel History Travel Start No recent travel history available. Last Filed Vital Signs Time Taken Vital Sign Reading 10/18/2017 1:55 PM DIAZO TECHNICIAN Blood Pressure 117/71 10/18/2017 1:55 PM DIAZO TECHNICIAN Pulse 98 10/18/2017 1:55 PM DIAZO TECHNICIAN Temperature 36.5 C (97.7 F) 10/18/2017 1:55 PM DIAZO TECHNICIAN Respiratory Rate 16 10/18/2017 1:55 PM DIAZO TECHNICIAN Oxygen Saturation 100% - Inhaled Oxygen - Concentration 10/18/2017 1:55 PM DIAZO TECHNICIAN Weight 46.4 kg (102 lb 6.4 oz) 10/18/2017 1:55 PM DIAZO TECHNICIAN Height 157.5 cm (5' 2") 10/18/2017 1:55 PM DIAZO TECHNICIAN Body Mass Index 18.73 Plan of Treatment Health Maintenance Due Date Last Done Comments PHYSICAL (COMPREHENSIVE) 1972 EXAM HIV SCREENING 1980 DTAP/TDAP VACCINES (1 - 1983 Tdap) CERVICAL CANCER SCREENING 1995 BREAST CANCER SCREENING 2005 COLORECTAL CANCER 2015 SCREENING SHINGLES RECOMBINANT 2015 VACCINE (1 of 2) INFLUENZA VACCINE 03/13/2018 06/29/2008, 06/17/2007 Results Not on filefrom Last 3 Months Advance Directives Patient has advance care planning documents, and code status on file. For more information, please contact: [facility] [address] [place] [address] Date Inactivated Comments Code Status Date Activated 07/16/2014 8:24 PM Full Code 07/12/2014 5:13 PM Provider has discussed Code Status No, more discussion w/Patient or Family? needed
[2018-08-05] MEDS ORDERED: NS IV 1000 ML 1,000 ML IV SCH ×5 (03:05→07:15)
--- OUTSIDE RECORDS SUMMARY | 2018-08-05 03:05 | XMS REPORT | Encounter Summary ---
Author Author [facility] Address Unknown Phone Unavailable Care Team Providers Care It Application Support Analyst Name Role Phone Xuan Solomon MD Unavailable True Arauz MD Unavailable Radha Chance Unavailable Unavailable Jayla Adkins MD Unavailable Eleuterio Berger MD Unavailable Gabriel Kaur RN Unavailable Unavailable Judy Harrison APRN PCP Michelle Edwards RN Unavailable Unavailable Magalis Stinson Unavailable Unavailable Ervin Stevenson MD Unavailable Asiya Culver Unavailable Unavailable Akila Zavala RN Unavailable Yessi Carreon MD Unavailable Reason for Visit * Reason Comments Other Encounter Details Care Team Description Date Type Department Jayla Adkins MD [address] [place] [address] Other 05/08/2018 Telephone [facility] [address] [place] [address] Social History Date Tobacco Use Types Packs/Day [...] Travel Start No recent travel history available. as of this encounter Functional Status Date of Assessment Functional Status Response 10/18/2017 Does the patient have a hearing impairment: No 10/18/2017 Does the patient have a visual impairment: Yes 10/18/2017 Does the patient have impaired ambulation: No 10/18/2017 Does the patient have an activity of daily living No (ADL) impairment: 10/18/2017 Does the patient have an instrumental activity of No daily living (IADL) impairment: Date of Assessment Cognitive Status Response 10/18/2017 Does the patient have a cognitive impairment: No as of this encounter Miscellaneous Notes * Telephone Encounter - Renee Maldonado RN - 05/09/2018 9:25 AM CDT LM for pt informing her that orders were sent to [facility] for imaging and labs. We will scheduled EGD when she is due in October 2018 * Telephone Encounter - Ava Desir - 05/08/2018 8:28 AM CDT Pt called and she will get lab and US results from [facility]. Also, pt wants to know if she needs EGD again in October 2018 in this encounter Plan of Treatment Not on fileas of this encounter Visit Diagnoses Not on filein this encounter
--- OUTSIDE RECORDS SUMMARY | 2018-08-05 03:05 | XMS REPORT | Encounter Summary ---
Author Author [facility] Organization [facility] Address Unknown Phone Unavailable Care Team Providers Care Fabric Worker Foreman Name Role Phone Xuan Solomon MD Unavailable True Arauz MD Unavailable Radha Chance Unavailable Unavailable Jayla Adkins MD Unavailable Eleuterio Berger MD Unavailable Gabriel Kaur RN Unavailable Unavailable Judy Harrison APRN PCP Michelle Edwards RN Unavailable Unavailable Magalis Stinson Unavailable Unavailable Ervin Stevenson MD Unavailable Asiya Culver Unavailable Unavailable Akila Zavala RN Unavailable Yessi Carreon MD Unavailable Encounter Details Care Team Description Date Type Department Laurel Emery RN Alcoholic cirrhosis of liver without ascites (HCC) 05/13/2018 Orders Only [facility] 1st [address]LOOR [address] [place] [address] Social History Date Tobacco Use Types Packs/Day [...] cognitive impairment: No as of this encounter Plan of Treatment Not on fileas of this encounter Procedures Comments Procedure Name Priority Date/Time Associated Diagnosis ALPHA FETO PROTEIN (AFP) Routine 03/07/2018 Alcoholic cirrhosis of 1:58 PM CDT liver without ascites (HCC) CBC AND DIFF Routine 03/07/2018 Alcoholic cirrhosis of 1:58 PM CDT liver without ascites (HCC) COMPREHENSIVE METABOLIC Routine 03/07/2018 Alcoholic cirrhosis of PANEL 1:58 PM CDT liver without ascites (HCC) in this encounter Results * ALPHA FETO PROTEIN (AFP) (03/07/2018 1:58 PM CDT) Alpha Feto Protein 2.8 0.0 - 8.8 [facility] Specimen Blood Narrative Performed At [facility] Lab Verified by Laurel Emery on 05/13/2018. Performing Organization Address City/State/Zipcode Phone Number [facility] * COMPREHENSIVE METABOLIC PANEL (03/07/2018 1:58 PM CDT) Sodium 136 135 - 145 MMOL/L [facility] Potassium 4.3 3.6 - 5.0 [facility] Chloride 105 98 - 107 MMOL/L [facility] CO2 26 21 - 32 MMOL/L [facility] Anion Gap 5 5 - 14 MMOL/L [facility] Blood Urea Nitrogen 15 MG/DL [facility] Creatinine 0.81 0.60 - 1.30 [facility] eGFR Non >60 [facility] Glucose 95 70 - 105 MG/DL [facility] Calcium 9.9 8.5 - 10.1 MG/DL [facility] Total Bilirubin 1.6 (H) 0.1 - 1.0 H [facility] Alk Phosphatase 145 (H) 40 - 136 [facility] AST (SGOT) 37 (H) 5 - 34 H [facility] ALT (SGPT) 26 0 - 55 U/L [facility] Total Protein 7.5 6.4 - 9.2 GM/DL [facility] Albumin 4.3 3.2 - 4.5 GM/DL [facility] Specimen Blood Narrative Performed At [facility] Lab Verified by Laurel Emery on 05/13/2018. Performing Organization Address City/[facility] Phone Number [facility] * CBC AND DIFF (03/07/2018 1:58 PM CDT) White Blood Cells 3.4 (L) 4.3 - 11.0 [facility] RBC 4.16 (L) 4.35 - 5.85 [facility] Hemoglobin 12.4 [facility] Hematocrit 35 [facility] MCV 84 [facility] MCH 30 [facility] MCHC 35 [facility] RDW 13.8 [facility] Platelet Count 61 (L) 130 - 400 [facility] MPV 10.0 [facility] Neutrophils 68 [facility] Lymphocytes 21 [facility] Monocytes 8 [facility] Eosinophil 2 [facility] Basophil 1 [facility] Absolute Neutrophil Count 2.3 [facility] Absolute Lymph Count 0.7 (L) 1.0 - 4.0 [facility] Absolute Monocyte Count 0.3 [facility] Absolute Eosinophil Count 0.1 [facility] Absolute Basophil Count 0.0 [facility] Specimen Blood Narrative Performed At [facility] Lab Verified by Laurel Emery on 05/13/2018. Performing Organization Address City/[facility] Phone Number [facility] in this encounter Visit Diagnoses Diagnosis Alcoholic cirrhosis of liver without ascites (HCC) Alcoholic cirrhosis of liver in this encounter
--- OUTSIDE RECORDS SUMMARY | 2018-08-05 03:06 | XMS REPORT ---
Author Author HEATHER FINE Organization [facility] Address [address] [place] [address] Care Team Providers Care Apron Trimmer Name Role Phone HEATHER FINE Unavailable PROBLEMS Type Condition ICD9-CM Code MBL05-GY Code Onset Dates Condition Status SNOMED Code Problem Unspecified cirrhosis of liver K74.60 Active 183362125 Problem Lymphocytosis D72.820 Active 24837653 Problem Secondary esophageal varices with bleeding I85.11 Active 01125457 Problem Anxiety F41.9 Active 40125872 Problem Asthma J45.909 Active 772317132 Problem Chronic back pain M54.9 Active 943566246 Problem Dysthymia F34.1 Active 94707563 Problem Thrombocytosis D47.3 Active 1659498 Problem Splenomegaly R16.1 Active 62370658 Problem 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 Active 202800248 Problem History of hepatitis C Z86.19 Active [id number] ALLERGIES No Information ENCOUNTERS Encounter Location Date Diagnosis [place] [id number] [place] [address] 74562- 1278 Jul, Anxiety F41.9 [place] [id number] [place] [address] 99690- 5325 Jul, [facility] [id number] [place] [address] 78242- 3664 Jul, [facility] [id number] [place] [address] 33542- 7812 Jul, Chronic back pain M54.9 ; Anxiety F41.9 and Breast cancer screening Z12.31 [facility] [id number] [place] [address] 05341- 3165 Jun, Anxiety F41.9 [facility] [address] [place] [id number] [place] [address] 46577- 3324 Jun, [facility] [address] [place] [address] [id number] [place] [address] 94473- 3308 May, Anxiety F41.9 [facility] [address] [place] [address] [id number] [place] [address] 12679- 2948 May, Right arm pain M79.601 [facility] [address] 56401- 2722 May, Encounter for immunization Z23 [facility] [address] 65604- 8017 Apr, Anxiety F41.9 [facility] [address] 37670- 6715 Apr, [facility] [address] [place] [id number] [place] [address] 69416- 5915 Mar, Anxiety F41.9 [facility] [address] [place] [address] [id number] [place] [address] 12937- 3268 Mar, [facility] [address] [place] [address] [id number] [place] [address] 61436- 5146 Mar, Right arm pain M79.601 [facility] [address] [place] [address] [id number] [place] [address] 50475- 3833 Mar, Anxiety F41.9 [facility] [address] [place] [id number] [place] [address] 28771- 6459 Feb, [facility] [address] [place] [address] [id number] [place] [address] 19579- 6295 Feb, Chronic back pain M54.9 ; Anxiety F41.9 and Dysuria R30.0 [facility] [address] [place] [address] [id number] [place] [address] 41430- 6667 Feb, [facility] [address] [place] [address] [id number] [place] [address] 81727- 2114 Feb, Anxiety F41.9 [facility] [address] [address]- 2409 Jan, [facility] [id number] [place] [address] 15979- 4522 08 Jan, 2018 Chronic back pain M54.9 and Anxiety F41.9 [facility] [id number] [place] [address] 36165- 6973 December, Chronic back pain M54.9 and Anxiety F41.9 [facility] [address] [place] [id number] [place] [address] 17105- 0325 Nov, Chronic back pain M54.9 and Anxiety F41.9 [facility] [address] [place] [id number] [place] [address] 32967- 0546 Oct, Chronic back pain M54.9 and Anxiety F41.9 [facility] [id number] [place] [address] 49974- 1457 Oct, [facility] [id number] [place] [address] 20128- 5471 Sep, Chronic back pain M54.9 ; Anxiety F41.9 ; Pain of left leg M79.605 and Pain in right leg M79.604 [facility] [address] [address]- 2738 Sep, Anxiety F41.9 and Chronic back pain M54.9 [facility] [id number] [place] [address] 45750- 6529 Sep, [facility] [address] [address]- 9959 Aug, Anxiety F41.9 [facility] [id number] [place] [address] 85570- 1396 Jul, Anxiety F41.9 [facility] [address] [address]- 6543 Jul, [facility] [address] [place] [id number] [place] [address] 46095- 3297 Jul, Viral syndrome B34.9 ; Chronic back pain M54.9 and Dysuria R30.0 [facility] [address] [place] [id number] [place] [address] 33110- 1453 Jun, [facility] [address] [place] [id number] [place] [address] 38490- 5408 Jun, Anxiety F41.9 [facility] [address] [place] [address] [id number] [place] [address] 38717 -0766 Jun, Dysuria R30.0 and Acute cystitis without hematuria N30.00 [facility] [address] [place] [id number] [place] [address] 78393- 6235 Jun, [facility] [address] [place] [id number] [place] [address] 26336- 7435 May, Anxiety F41.9 [facility] [address] [place] [id number] [place] [address] 72213- 9116 May, Anxiety F41.9 [facility] [address] [place] [id number] [place] [address] 39350- 5654 Apr, [facility] [address] [place] [id number] [place] [address] 59453- 3865 Apr, Chronic back pain M54.9 and Anxiety F41.9 [facility] [address] [place] [id number] [place] [address] 09508- 1400 Mar, [facility] [address] [place] [id number] [place] [address] 22668- 2395 Mar, [facility] [address] [place] [id number] [place] [address] 61717- 2552 Mar, Well woman exam Z01.419 ; Cervical cancer screening Z12.4 ; Breast cancer screening Z12.31 and Colon cancer screening Z12.11 [facility] [address] [place] [id number] [place] [address] 37137- 5695 Mar, Chronic back pain M54.9 and Anxiety F41.9 [facility] [address] [place] [id number] [place] [address] 37006- 4866 Mar, [facility] [address] [place] [address] [id number] [place] [address] 22568- 2993 Feb, Chronic back pain M54.9 and Anxiety F41.9 [facility] [address] [place] [id number] [place] [address] 96855- 3363 Feb, [facility] [address] [place] [id number] [place] [address] 43256- 7779 Feb, [facility] [address] [place] [id number] [place] [address] 69505- 2191 Jan, Chronic back pain M54.9 and Anxiety F41.9 [facility] [address] [place] [id number] [place] [address] 55453- 0894 Jan, [facility] [address] [place] [id number] [place] [address] 44836- 7337 Jan, [facility] [address] [place] [id number] [place] [address] 34867- 4802 December, Chronic back pain M54.9 and Anxiety F41.9 [facility] [address] [place] [id number] [place] [address] 78053- 8906 Nov, Chronic back pain M54.9 and Anxiety F41.9 [facility] [address] [place] [id number] [place] [address] 00843- 4268 Oct, Chronic back pain M54.9 and Anxiety F41.9 [facility] [address] [place] [id number] [place] [address] 32352- 2982 Oct, Chronic back pain M54.9 [facility] [address] [place] [id number] [place] [address] 47044- 3173 Sep, Anxiety F41.9 and Chronic back pain M54.9 [facility] [address] [place] [address]- 7524 Aug, Anxiety F41.9 and Chronic back pain M54.9 [facility] [address] [place] [id number] [place] [address] 62102- 0614 Aug, [facility] [address] [place] [id number] [place] [address] 10238- 1541 Jul, Chronic back pain M54.9 and Anxiety F41.9 [facility] [address] [place] [id number] [place] [address] 81850- 4502 Jul, Anxiety F41.9 and Chronic back pain M54.9 [facility] [place] [address] [place] [address] Jul, [facility] [address] [place] [id number] [place] [address] 20058- 5773 Jul, Anxiety F41.9 [facility] [address] [place] [id number] [place] [address] 59405- 8538 Jul, Anxiety F41.9 and Dysuria R30.0 [facility] [address] [place] [id number] [place] [address] 21225- 4576 Jul, Chronic back pain M54.9 and Anxiety F41.9 [facility] [address] [place] [id number] [place] [address] 03944- 1920 Jun, Chronic back pain M54.9 [facility] [address] [place] [id number] [place] [address] 21656- 6408 Jun, Chronic back pain M54.9 [facility] [address] [place] [id number] [place] [address] 89225- 2571 May, Anxiety F41.9 [facility] [address] [place] [id number] [place] [address] 25318- 5687 May, Chronic back pain M54.9 [facility] [address] [place] [id number] [place] [address] 56656- 3475 Apr, [facility] [address] [place] [id number] [address]- 7332 29 Apr, 2016 [facility] [address] [place] [id number] [place] [address] 45834- 1751 Apr, [facility] [address] [place] [id number] [place] [address] 85958- 0044 Apr, Chronic back pain M54.9 [facility] [address] [place] [id number] [place] [address] 28461- 3421 Mar, Chronic back pain M54.9 [facility] [address] [place] [id number] [place] [address] 54618- 3845 Feb, Grief F43.20 [facility] [address] [place] [id number] [place] [address] 91136- 3804 Feb, Chronic back pain M54.9 and Anxiety F41.9 [facility] [address] [place] [id number] [place] [address] 02949- 6337 Feb, Chronic back pain M54.9 [facility] [address] [place] [id number] [place] [address] 96562- 3235 Jan, Chronic back pain M54.9 [facility] [address] [place] [id number] [place] [address] 42866- 6559 December, [facility] [address] [place] [id number] [place] [address] 55794- 2333 December, Grief F43.20 [facility] [address] [place] [id number] [place] [address] 85344- 1779 Nov, [facility] [address] [place] [id number] [place] [address] 18755- 9514 28 Oct, 2015 Cervicalgia M54.2 ; Secondary esophageal varices with bleeding I85.11 and Mouth pain K13.79 [facility] [id number] [place] [address] 26486- 5020 Oct, [facility] [address] [place] [id number] [place] [address] 89160- 5529 Oct, [facility] [address] [place] [id number] [place] [address] 96209- 0085 Sep, [facility] [address] [place] [id number] [place] [address] 15590- 8923 Sep, Acute maxillary sinusitis, recurrence not specified J01.00 [facility] [address] 87270- 8250 Aug, [facility] [address] [place] [id number] [place] [address] 61817- 7692 Aug, [facility] [address] [place] [id number] [place] [address] 92360- 3487 Aug, Dysuria R30.0 and Chronic back pain M54.9 [facility] [address] [place] [id number] [place] [address] 57213- 8439 Jul, [facility] [address] [place] [id number] [place] [address] 66597- 3788 Jul, [facility] [address] [place] [id number] [place] [address] 36412- 2041 Jul, [facility] [address] [place] [id number] [place] [address] 13928- 9472 Jul, Chronic back pain M54.9 [facility] [address] [id number] [place] [address] 26982- 2858 Jul, Dysthymia F34.1 and Chronic back pain M54.9 [facility] [address] [place] [id number] [place] [address] 05051- 7495 Jun, [facility] [address] [id number] [place] [address] 91463- 2298 Jun, [facility] [address] [place] [id number] [place] [address] 30104- 8849 May, [facility] [address] [place] [id number] [place] [address] 82548- 1730 May, [facility] [id number] [address]- 5317 May, [facility] [id number] [place] [address] 47713- 3169 May, Encounter for immunization Z23 [facility] [address] [place] [address] [id number] [place] [address] 53926- 3619 [address], [address] [facility] [address] [place] [id number] [place] [address] 95187- 3125 Apr, [facility] [id number] [place] [address] 36363- 1349 Mar, [facility] [address] [place] [id number] [place] [address] 67530- 2462 Mar, Back pain 724.5 [facility] [address] [place] [id number] [place] [address] 62679- 6734 Mar, Cough 786.2 [address] Back [address]24.5 [facility] [id number] [place] [address] 03069- 0242 Mar, [facility] [id number] [place] [address] 75844- 2764 Mar, [facility] [address] [address]- 1662 December, [facility] [address] [address]- 1442 December, [facility] [address] [id number] [address]- 8147 Nov, [facility] [id number] [address]- 6343 Nov, [facility] [address] [address]- 3550 Oct, [facility] [address] [place] [id number] [place] [address], [place] [address]- 2479 Oct, [facility] [place] [facility] [address] [id number] [place] [address]- 7729 Sep, 2014 [facility] [place] [facility] [address] [id number] [place] 3906 Sep, 2014 [facility] [place] [facility] [address] [id number] [place] [address]- 1955 Sep, 2014 [facility] [place] [facility] [address] [id number] [place] [address]- 1867 Sep, 2014 [facility] [place] [facility] [address] [id number] [place] [address]- 5135 Sep, 2014 [facility] [place] [facility] [address] [id number] [place] [address]- 5024 Sep, 2014 [facility] [place] [facility] [address] [id number] [place] [address]- 9060 Sep, 2014 [facility] [place] [facility] [address] [id number] [place] [address]- 8972 Sep, [facility] [place] [facility] [address] [id number] [place] [address]- 7128 Aug, [facility] [place] [facility] [address] [facility] [id number] [place] [address]- 8124 Aug, [facility] [place] [facility] [address] [facility] [id number] [place] [address]- 3541 Aug, [facility] [place] [facility] [address] [id number] [place] [address]- 4157 Aug, [facility] [place] [facility] [address] [id number] [place] [address]- 4960 Aug, [facility] [place] [facility] [address] [facility] [id number] [place] [address]- 9101 Aug, [facility] [place] [facility] [address] [facility] [id number] [place] [address]- 6573 Aug, [facility] [place] [facility] [address] [id number] [place] [address]- 5061 Jul, [facility] [place] [facility] [address] [id number] [place] [address]- 4779 Jul, [facility] [place] [facility] [address] [id number] [place] [address]- 7489 Jul, [facility] [place] [facility] [address] [id number] [place] [address]- 2755 Jul, [facility] [place] [facility] [address] [id number] [place] [address]- 8474 Jul, [facility] [place] [facility] [address] [id number] [place] [address]- 5549 Jul, [facility] [place] [facility] [address] [id number] [place] [address]- 5042 Jul, [facility] [place] [facility] [address] [id number] [place] [address]- 7319 Jul, [facility] [place] [facility] [address] [id number] [place] [address]- 1381 Jun, [facility] [place] [facility] [address] [id number] [place] [address]- 7019 Jun, [facility] [place] [facility] [address] [id number] [place] [address]- 7373 Jun, [facility] [place] [facility] [address] [id number] [address]- 2574 Jun, [facility] [place] [facility] [address] [id number] [place] [address]- 9228 Jun, [facility] [place] [facility] [address] [id number] [place] [address]- 3265 Jun, [facility] [place] [facility] [address] [id number] [place] [address]- 2284 Jun, [facility] [place] [facility] [address] [id number] [place] [address]- 0179 28 May, 2013 [facility] [place] [facility] [address] [id number] [place] [address]- 2409 28 May, 2013 [facility] [place] [facility] [address] [id number] [place] [address]- 3804 28 May, 2014 [facility] [place] [facility] [address] [id number] [place] [address]- 5897 28 May, 2013 [facility] [place] [facility] [address] [id number] [place] [address]- 3562 2013 [facility] [place] [facility] [address] [id number] [place] [address]- 4485 2014 [facility] [place] [facility] [address] [id number] [place] [address]- 8872 2013 [facility] [place] [facility] [address] [id number] [place] [address]- 2150 2013 [facility] [place] [facility] [address] [id number] [place] [address]- 0363 13 May, 2013 [facility] [place] [facility] [address] [id number] [place] [address]- 1545 13 May, 2013 [facility] [place] [facility] [address] [id number] [place] [address]- 5697 10 May, 2014 [facility] [place] [facility] [address] [id number] [place] [address]- 8764 10 May, 2013 [facility] [place] [facility] [address] [id number] [place] [address]- 7177 08 May, 2014 [facility] [place] [facility] [address] [id number] [place] [address]- 6826 08 May, 2014 [facility] [place] [facility] [address] [id number] [place] [address]- 7972 26 Apr, 2013 [facility] [place] [facility] [address] [id number] [place] [address]- 0055 23 Apr2013 [facility] [place] [facility] [address] [id number] [place] [address]- 4257 Apr, [facility] [place] [facility] [address] [id number] [place] [address]- 8696 Apr, [facility] [place] [facility] [address] [id number] [place] [address]- 6281 Apr, [facility] [place] [facility] [address] [id number] [place] [address]- 6017 Apr, [facility] [place] [facility] [address] [id number] [place] [address]- 9824 Apr, [facility] [place] [facility] [address] [id number] [place] [address]- 6601 Mar, [facility] [place] [facility] [address] [id number] [place] [address]- 5551 Mar, [facility] [place] [facility] [address] [id number] [place] [address]- 4677 Mar, [facility] [place] [facility] [address] [id number] [place] [address]- 6319 Mar, [facility] [place] [facility] [address] [id number] [place] [address]- 3070 Mar, [facility] [place] [facility] [address] [id number] [place] [address]- 5802 Mar, [facility] [place] [facility] [address] [id number] [place] [address]- 2830 Feb, [facility] [place] [facility] [address] [id number] [place] [address]- 3252 Feb, [facility] [place] [facility] [address] [id number] [place] [address] Feb, [facility] [place] [facility] [address] [id number] [place] [address] Feb, [facility] [place] [facility] [address] [id number] [place] [address] Feb, [facility] [place] [facility] [address] [id number] [place] [address] Feb, [facility] [place] [facility] [address] [id number] [place] [address] Feb, [facility] [place] [facility] [address] [id number] [place] [address] Feb, [facility] [place] [facility] [address] [id number] [place] [address] Jan, [facility] [place] [facility] [address] [id number] [place] [address] Jan, [facility] [place] [facility] [address] [id number] [place] [address] December, [facility] [place] [facility] [address] [id number] [place] [address] December, [facility] [place] [facility] [address] [id number] [place] [address] December, [facility] [place] [facility] [address] [id number] [place] [address] December, [facility] [place] [facility] [address] [id number] [place] [address] December, [facility] [place] [facility] [address] [id number] [place] [address] December, [facility] [place] [facility] [address] [id number] [place] [address] December, [facility] [place] [facility] [address] [id number] [place] [address] December, [facility] [place] [facility] [address] [id number] [place] [address]- [address] December, [facility] [place] [facility] [address] [id number] [place] [address] December, [facility] [place] [facility] [address] [id number] [place] [address] December, [facility] [address] [id number] [place] [address] December, [facility] [address] [id number] [place] [address] Nov, [facility] [address] [id number] [place] [address] Nov, [facility] [address] [id number] [place] [address] Nov, [facility] [address] [id number] [place] [address] Nov, [facility] [address] [id number] [place] [address] Nov, [facility] [address] [id number] [place] [address] Nov, [facility] [address] [id number] [place] [address] Nov, [facility] [address] [id number] [place] [address] Nov, [facility] [address] [id number] [place] [address] Nov, [facility] [place] [facility] [address] [id number] [place] [address] Nov, [facility] [address] [id number] [place] [address] Nov, [facility] [place] [facility] [address] [id number] [place] [address] Nov, [facility] [place] [facility] [address] [id number] [place] [address] Nov, [facility] [place] [facility] [address] [id number] [place] [address] Oct, [facility] [place] [facility] [address] [id number] [place] [address] Oct, [facility] [place] [facility] [address] [id number] [place] [address] Sep, [facility] [place] [facility] [address] [id number] [place] [address] Sep, [facility] [place] [facility] [address] [id number] [place] [address] Sep, [facility] [place] [facility] [address] [id number] [place] [address] Sep, [facility] [place] [facility] [address] [id number] [place] [address] Sep, [facility] [place] [facility] [address] [id number] [place] [address] Sep, [facility] [place] [facility] [address] [id number] [place] [address] 17[address] Sep, [facility] [place] [facility] [address] [id number] [place] [address] 7937 Sep, [facility] [place] [facility] [address] [id number] [place] [address]- 7000 Sep, [facility] [place] [facility] [address] [id number] [place] [address] 6757 Sep, [facility] [place] [facility] [address] [id number] [place] [address]- 4919 Sep, [facility] [place] [facility] [address] [id number] [place] [address]- 0628 Sep, [facility] [place] [facility] [address] [id number] [place] [address]- 7583 Aug, [facility] [place] [facility] [address] [id number] [place] [address]- 1281 Aug, [facility] [place] [facility] [address] [id number] [place] [address]- 4859 29 Aug, 2013 [facility] [address] [id number] [place] [address] 3072 Aug, [facility] [place] [facility] [address] [id number] [place] [address]- 4541 Aug, [facility] [address] [id number] [place] [address] 3343 Aug, [facility] [place] [facility] [address] [id number] [place] [address]- 8219 Aug, [facility] [place] [facility] [address] [id number] [place] [address]- 9121 Aug, [facility] [place] [facility] [address] [id number] [place] [address]- 3694 Aug, [facility] [place] [facility] [address] [id number] [place] [address]- 6549 Aug, [facility] [address] [id number] [place] [address]- 6247 Aug, [facility] [place] [facility] [address] [id number] [place] [address]- 7627 Aug, [facility] [place] [facility] [address] [id number] [place] [address]- 4809 Aug, [facility] [place] [facility] [address] [id number] [place] [address]- 2304 Aug, [facility] [place] [facility] [address] [id number] [place] [address]- 3819 Aug, [facility] [place] [facility] [address] [id number] [place] [address]- 3599 Aug, [facility] [place] [facility] [address] [id number] [place] [address]- 8665 Aug, [facility] [place] [facility] [address] [id number] [place] [address]- 9727 Aug, [facility] [address] [id number] [place] [address]- 1836 Aug, [facility] [place] [facility] [address] [id number] [place] [address]- 6849 Aug, [facility] [place] [facility] [address] [id number] [place] [address]- 3348 Aug, [facility] [place] [facility] [address] [id number] [place] [address]- 1234 Aug, [facility] [place] [facility] [address] [id number] [place] [address]- 2207 Aug, [facility] [place] [facility] [address] [id number] [place] [address]- 0286 Jul, [facility] [place] [facility] [address] [id number] [place] [address]- 7790 Jul, [facility] [place] [facility] [address] [id number] [place] [address]- 7350 Jul, [facility] [place] [facility] [address] [id number] [place] [address]- 2069 Jul, [facility] [place] [facility] [address] [id number] [place] [address]- 9368 Jul, [facility] [place] [facility] [address] [id number] [place] [address]- 7225 Jul, [facility] [place] [facility] [address] [id number] [place] [address]- 7535 Jun, [facility] [place] [facility] [address] [id number] [place] [address]- 8824 Jun, [facility] [place] [facility] [address] [id number] [place] [address]- 0474 Jun, [facility] [place] [facility] [address] [id number] [place] [address]- 8812 Jun, [facility] [place] [facility] [address] [id number] [place] [address]- 2713 Jun, [facility] [place] [facility] [address] [id number] [place] [address]- 0949 Jun, [facility] [place] [facility] [address] [id number] [place] [address]- 9588 Jun, [facility] [place] [facility] [address] [id number] [place] [address]- 4633 Jun, [facility] [place] [facility] [address] [id number] [place] [address]- 1494 Jun, [facility] [place] [facility] [address] [id number] [place] [address]- 8126 Jun, [facility] [place] [facility] [address] [id number] [place] [address]- 2704 May, [facility] [place] [facility] [address] [id number] [place] [address]- 7513 May, [facility] [place] [facility] [address] [id number] [place] [address]- 0370 May, [facility] [place] [facility] [address] [id number] [place] [address]- 7807 May, [facility] [place] [facility] [address] [facility] [id number] [place] [address]- 8394 May, [facility] [place] [facility] [address] [id number] [place] [address]- 0153 May, [facility] [place] [facility] [address] [id number] [place] [address]- 5664 May, [facility] [place] [facility] [address] [id number] [place] [address]- 6174 May, [facility] [place] [facility] [address] [id number] [place] [address]- 9880 May, [facility] [place] [facility] [address] [id number] [place] [address]- 0307 May, [facility] [place] [facility] [address] [id number] [place] [address]- 7747 17 May, 2013 [facility] [place] [facility] [address] [id number] [place] [address]- 6815 16 May, 2013 [facility] [place] [facility] [address] [id number] [place] [address]- 8637 16 May, 2012 [facility] [place] [facility] [address] [id number] [place] [address]- 1179 16 May, 2013 [facility] [place] [facility] [address] [id number] [place] [address]- 6899 16 May, 2013 [facility] [place] [facility] [address] [id number] [place] [address]- 2871 24 Apr, 2013 [facility] [place] [facility] [address] [id number] [place] [address]- 6548 Apr, [facility] [place] [facility] [address] [id number] [place] [address]- 9660 Apr, [facility] [place] [facility] [address] [id number] [place] [address]- 0975 Mar, [facility] [place] [facility] [address] [id number] [place] [address]- 2791 Mar, [facility] [place] [facility] [address] [id number] [place] [address]- 5580 Mar, [facility] [place] [facility] [address] [id number] [place] [address]- 9691 Mar, [facility] [place] [facility] [address] [id number] [place] [address]- 2445 Mar, [facility] [place] [facility] [address] [id number] [place] [address]- 0286 Mar, [facility] [place] [facility] [address] [id number] [place] [address]- 8079 Feb, [facility] [place] [facility] [address] [id number] [place] [address]- 5915 Feb, [facility] [place] [facility] [address] [id number] [place] [address]- 2403 Feb, [facility] [place] [facility] [address] [id number] [place] [address]- 8995 Feb, [facility] [place] [facility] [address] [id number] [place] [address]- 5717 Feb, [facility] [place] [facility] [address] [id number] [place] [address]- 8491 Feb, [facility] [place] [facility] [address] [id number] [place] [address]- 1550 Feb, [facility] [place] [facility] [address] [id number] [place] [address]- 6354 Feb, [facility] [place] [facility] [address] [id number] [place] [address]- 1325 Feb, [facility] [place] [facility] [address] [id number] [place] [address]- 0201 Feb, [facility] [place] [facility] [address] [id number] [place] [address]- 9618 Jan, [facility] [place] [facility] [address] [id number] [place] [address]- 3796 Jan, [facility] [place] [facility] [address] [id number] [place] [address]- 0987 Jan, [facility] [place] [facility] [address] [id number] [place] [address]- 6542 Jan, [facility] [place] [facility] [address] [id number] [place] [address]- 4908 December, [facility] [place] [facility] [address] [id number] [place] [address]- 1916 December, [facility] [place] [facility] [address] [id number] [place] [address]- 7035 December, [facility] [place] [facility] [address] [id number] [place] [address]- 1047 30 Nov, 2012 [facility] [place] [address] [id number] [place] [address]- 7105 Nov, [facility] [address] [id number] [place] [address]- 0912 24 Nov, 2012 [facility] [address] [id number] [place] [address]- 2545 Nov, [facility] [address] [id number] [place] [address]- 7793 Nov, [facility] [address] [id number] [place] [address]- 4148 Nov, [facility] [address] [id number] [place] [address]- 7118 Oct, [facility] [address] [id number] [place] [address]- 4694 Oct, [facility] [address] [id number] [place] [address]- 1131 Oct, [facility] [address] [id number] [place] [address]- 1351 Sep, [facility] [address] [id number] [place] [address]- 4390 Sep, [facility] [address] [id number] [place] [address] 2548 Sep, [facility] [address] [id number] [place] [address]- 3903 Aug, [facility] [address] [id number] [place] [address]- 4894 Aug, [facility] [address] [id number] [place] [address]- 6242 Aug, [facility] [address] [id number] [place] [address]- 5136 Aug, [facility] [place] [facility] [address] [id number] [place] [address]- 8310 Jul, [facility] [place] [facility] [address] [id number] [place] [address]- 2088 Jul, [facility] [place] [facility] [address] [id number] [place] [address] Jul, [facility] [place] [facility] [address] [id number] [place] [address]- 3147 Jul, [facility] [place] [facility] [address] [id number] [place] [address]- 8336 Jun, [facility] [place] [facility] [address] [id number] [place] [address]- 1020 Jun, [facility] [place] [facility] [address] [id number] [place] [address]- 8648 Jun, [facility] [place] [facility] [address] [id number] [place] [address]- 8760 Jun, [facility] [place] [facility] [address] [id number] [place] [address]- 8974 Jun, [facility] [place] [facility] [address] [id number] [place] [address]- 1719 Jun, [facility] [place] [facility] [address] [id number] [place] [address]- 9467 Jun, [facility] [place] [facility] [address] [id number] [place] [address]- 1467 Jun, [facility] [place] [facility] [address] [id number] [place] [address]- 9559 May, [facility] [place] [facility] [address] [id number] [place] [address]- 2949 May, [facility] [place] [facility] [address] [id number] [place] [address]- 8229 May, [facility] [place] [facility] [address] [id number] [place] [address]- 5040 18 May, 2012 [facility] [place] [facility] [address] [id number] [place] [address]- 2976 2012 [facility] [place] [facility] [address] [id number] [place] [address]- 6416 13 May, 2012 [facility] [place] [facility] [address] [id number] [place] [address]- 9646 11 May, 2012 [facility] [place] [facility] [address] [id number] [place] [address]- 2916 11 May, 2012 [facility] [place] [facility] [address] [id number] [place] [address], [place] [address]- 6591 10 May, 2012 [facility] [place] [facility] [address] [id number] [place] [address]- 7622 08 May, 2012 [facility] [place] [facility] [address] [id number] [place] [address]- 7566 24 Sep2011 [facility] [place] [facility] [address] [id number] [place] [address]- 6972 19 Sep2011 [facility] [place] [facility] [address] [id number] [place] [address]- 1919 18 Sep2011 [facility] [place] [facility] [address] [id number] [place] [address]- 8302 17 Sep2011 [facility] [place] [facility] [address] [id number] [place] [address]- 0463 16 Sep, 2011 [facility] [place] [facility] [address] [id number] [place] [address]- 0909 10 Apr, 2012 [facility] [place] [facility] [address] [id number] [place] [address]- 7730 29 Mar, 2012 [facility] [place] [facility] [address] [id number] [place] [address]- 7181 27 Mar, 2012 [facility] [place] [facility] [address] [id number] [place] [address]- 8635 23 Mar, 2012 [facility] [place] [facility] [address] [id number] [place] [address]- 5202 Mar, [facility] [place] [facility] [address] [id number] [place] [address]- 1596 Mar, [facility] [place] [facility] [address] [id number] [place] [address]- 9376 Mar, [facility] [place] [facility] [address] [id number] [place] [address]- 7676 Feb, [facility] [place] [facility] [address] [id number] [place] [address]- 7246 Feb, [facility] [place] [facility] [address] [id number] [place] [address]- 0623 Feb, [facility] [place] [facility] [address] [id number] [place] [address]- 2220 Feb, [facility] [place] [facility] [address] [id number] [place] [address]- 7643 Feb, [facility] [place] [facility] [address] [id number] [place] [address]- 7523 Feb, [facility] [place] [facility] [address] [id number] [place] [address]- 8931 Feb, [facility] [place] [facility] [address] [id number] [place] [address]- 5308 Feb, [facility] [place] [facility] [address] [id number] [place] [address]- 9900 Feb, [facility] [place] [facility] [address] [id number] [place] [address]- 8721 Jan, [facility] [place] [facility] [address] [id number] [place] [address]- 6486 Jan, [facility] [place] [facility] [address] [id number] [place] [address]- 2328 Jan, [facility] [place] [facility] [address] [id number] [place] [address]- 3491 Jan, [facility] [address] [id number] [place] [address]- 4823 Jan, [facility] [place] [facility] [address] [id number] [place] [address]- 5186 Jan, [facility] [place] [facility] [address] [id number] [place] [address]- 8440 Jan, [facility] [place] [facility] [address] [id number] [place] [address]- 4416 Jan, [facility] [place] [facility] [address] [id number] [place] [address]- 8530 Jan, [facility] [place] [facility] [address] [id number] [place] [address]- 9498 December, [facility] [place] [facility] [address] [id number] [place] [address]- 6526 December, [facility] [place] [facility] [address] [id number] [place] [address]- 7883 December, [facility] [place] [facility] [address] [id number] [place] [address]- 5387 December, [facility] [place] [facility] [address] [id number] [place] [address]- 5459 December, [facility] [place] [facility] [address] [id number] [place] [address]- 5936 December, [facility] [place] [facility] [address] [id number] [place] [address]- 2327 December, [facility] [place] [facility] [address] [id number] [place] [address]- 5326 December, [facility] [place] [facility] [address] [id number] [place] [address]- 7418 December, [facility] [place] [facility] [address] [id number] [place] [address]- 0416 December, [facility] [place] [facility] [address] [id number] [place] [address]- 4152 30 Nov, 2011 [facility] [address] [id number] [place] [address]- 0826 27 Nov, 2011 [facility] [place] [facility] [address] [id number] [place] [address]- 9636 26 Nov, 2011 [facility] [address] [id number] [place] [address]- 6656 20 Nov, 2011 [facility] [place] [facility] [address] [id number] [place] [address]- 9486 16 Nov, 2011 [facility] [address] [id number] [place] [address]- 6304 13 Nov, 2011 [facility] [address] [id number] [place] [address]- 2734 09 Nov, 2011 [facility] [address] [id number] [place] [address]- 5818 06 Nov, 2011 [facility] [address] [id number] [place] [address]- 7543 05 Nov, 2011 [facility] [place] [facility] [address] [id number] [place] [address]- 1812 03 Nov, 2011 [facility] [address] [id number] [place] [address]- 4778 30 Oct, 2011 [facility] [place] [facility] [address] [id number] [place] [address]- 4132 29 Oct, 2011 [facility] [place] [facility] [address] [id number] [place] [address]- 3663 23 Oct, 2011 [facility] [place] [facility] [address] [id number] [place] [address]- 7125 23 Oct, 2011 [facility] [place] [facility] [address] [id number] [place] [address]- 9306 21 Oct, 2011 [facility] [place] [facility] [address] [id number] [place] [address]- 3036 20 Oct, 2011 [facility] [place] [facility] [address] [id number] [place] [address]- 1005 19 Oct, 2011 [facility] [place] [facility] [address] [id number] [place] [address]- 9036 19 Oct, 2011 [facility] [place] [facility] [address] [id number] [place] [address]- 9746 16 Oct, 2011 [facility] [place] [facility] [address] [id number] [place] [address]- 9376 14 Oct, 2011 [facility] [place] [facility] [address] [id number] [place] [address]- 6555 14 Oct, 2011 [facility] [place] [facility] [address] [id number] [place] [address]- 3966 09 Oct, 2011 [facility] [address] [id number] [place] [address]- 5313 08 Oct, 2011 [facility] [place] [facility] [address] [id number] [place] [address]- 1465 06 Oct, 2011 [facility] [place] [facility] [address] [id number] [place] [address]- 0422 02 Oct, 2011 [facility] [place] [facility] [address] [id number] [place] [address]- 9091 28 Sep, 2011 [facility] [place] [facility] [address] [id number] [place] [address]- 0150 24 Sep, 2011 [facility] [place] [facility] [address] [id number] [place] [address]- 9956 20 Sep, 2011 [facility] [place] [facility] [address] [id number] [place] [address]- 5286 17 Sep, 2011 [facility] [place] [facility] [address] [id number] [place] [address]- 9[address] 16 Sep, 2011 [facility] [place] [facility] [address] [id number] [place] [address] 14 Sep, 2011 [facility] [place] [facility] [address] [id number] [place] [address] 13 Sep, 2011 [facility] [address] [id number] [place] [address] 10 Sep, 2011 [facility] [address] [id number] [place] [address] 2546 06 Sep, 2011 [facility] [address] [id number] [place] [address] 03 Sep, 2011 [facility] [address] [id number] [place] [address] 2546 Sep, [facility] [address] [id number] [place] [address] 30 Aug, 2011 [facility] [address] [id number] [place] [address] 47[address] 27 Aug, 2011 [facility] [address] [id number] [place] [address] Aug, [facility] [address] [id number] [place] [address]352 24 Aug, 2011 [facility] [address] [id number] [place] [address]798 Aug, [facility] [address] [id number] [place] [address] 0941 17 Aug, 2011 [facility] [address] [id number] [place] [address]043 17 Aug, 2011 [facility] [address] [id number] [place] [address]- 3626 17 Aug, 2011 [facility] [address] [id number] [place] [address]- 8232 16 Aug, 2011 [facility] [address] [id number] [place] [address]- 9966 13 Aug, 2011 [facility] [address] [id number] [place] [address] Aug, [facility] [address] [id number] [place] [address]106 Aug, [facility] [place] [facility] [address] [id number] [place] [address] 3968 Aug, [facility] [place] [facility] [address] [id number] [place] [address] Aug, [facility] [place] [facility] [address] [id number] [place] [address]165 Aug, [facility] [address] [id number] [place] [address] 1605 Aug, [facility] [place] [facility] [address] [id number] [place] [address] Aug, [facility] [place] [facility] [address] [id number] [place] [address]- 7942 30 Jul, 2011 [facility] [address] [id number] [place] [address] 0924 28 Jul, 2011 [facility] [place] [facility] [address] [id number] [place] [address]- [address]272 27 Jul, 2011 [facility] [place] [facility] [address] [id number] [place] [address]- [address] 23 Jul, 2011 [facility] [place] [facility] [address] [id number] [place] [address] Jul, [facility] [place] [facility] [address] [id number] [place] [address] 19 Jul, 2011 [facility] [place] [facility] [address] [id number] [place] [address]- 9380 17 Jul, 2011 [facility] [place] [facility] [address] [id number] [place] [address] 3179 16 Jul, 2011 [facility] [place] [facility] [address] [id number] [place] [address]472 07 Jul, 2011 [facility] [place] [facility] [address] [id number] [place] [address] Jul, [facility] [address] [facility] [id number] [place] [address] 2546 Jul, [facility] [address] [facility] [id number] [place] [address] 2546 Jun, [facility] [address] [facility] [id number] [place] [address] 2546 Jun, [facility] [address] [facility] [id number] [place] [address] Jun, IMMUNIZATIONS No Known Immunizations SOCIAL HISTORY Never Assessed REASON FOR VISIT Controlled Med Refill 08/05/18 PLAN OF CARE VITAL SIGNS MEDICATIONS Medication Instructions Dosage Frequency Start Date End Date Duration Status Oxycodone HCl 5 MG Orally Once a day 1 tablet at bedtime 24h Jul, 28 days Active Ativan 0.5 MG Orally Once a day 1 tablet as needed 24h December, 28 days Active RESULTS No Results PROCEDURES No Known procedures INSTRUCTIONS MEDICATIONS ADMINISTERED No Known Medications MEDICAL (GENERAL) HISTORY Type Description Date Medical History Asthma Medical History Anxiety Medical History Chronic pain Medical History Thrombocytenpia Medical History Unspecified cirrhosis of liver Liver US 2017 Homogenous Surgical History EGD-check veins if had in bleeding per Dr. Lucille chambers 2 Surgical History oral surgery 10/2016 Hospitalization History GI Bleed
--- OUTSIDE RECORDS SUMMARY | 2018-08-05 03:07 | XMS REPORT ---
Author Author HEATHER FINE Organization [facility] Address [address] [place] [address] Care Team Providers Care Palliative Care Specialist Name Role Phone HEATHER FINE Unavailable PROBLEMS Type Condition ICD9-CM Code NIO34-KC Code Onset Dates Condition Status SNOMED Code Problem Unspecified cirrhosis of liver K74.60 Active 817394034 Problem Lymphocytosis D72.820 Active 65435543 Problem Secondary esophageal varices with bleeding I85.11 Active 87757598 Problem Anxiety F41.9 Active 82409538 Problem Asthma J45.909 Active 516713073 Problem Chronic back pain M54.9 Active 614087997 Problem Dysthymia F34.1 Active 45394855 Problem Thrombocytosis D47.3 Active 3185433 Problem Splenomegaly R16.1 Active 25007495 Problem 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 Active 365245960 Problem History of hepatitis C Z86.19 Active [id number] ALLERGIES No Information ENCOUNTERS Encounter Location Date Diagnosis [place] [id number] [place] [address] 43753- 7104 Jul, [place] [address] [place] [id number] [place] [address] 97062- 7734 Jul, Chronic back pain M54.9 ; Anxiety F41.9 and Breast cancer screening Z12.31 [facility] [id number] [place] [address] 02222- 8203 Jun, Anxiety F41.9 [facility] [id number] [place] [address] 42416- 7606 Jun, [facility] [id number] [place] [address] 13232- 5493 May, Anxiety F41.9 [facility] [id number] [place] [address] 01203- 6648 May, Right arm pain M79.601 [facility] [id number] [place] [address] 35907- 6566 May, Encounter for immunization Z23 [facility] [id number] [place] [address] 53662- 0488 Apr, Anxiety F41.9 [facility] [address] 26510- 6915 Apr, [facility] [id number] [place] [address] 54079- 9709 Mar, Anxiety F41.9 [facility] [id number] [place] [address] 22539- 5502 Mar, [facility] [id number] [place] [address] 02829- 1627 Mar, Right arm pain M79.601 [facility] [id number] [place] [address] 32395- 1536 Mar, Anxiety F41.9 [facility] [id number] [place] [address] 54592- 8517 Feb, [facility] [id number] [place] [address] 70879- 7487 Feb, Chronic back pain M54.9 ; Anxiety F41.9 and Dysuria R30.0 [facility] [id number] [place] [address] 52362- 7463 Feb, [facility] [id number] [place] [address] 15349- 4734 Feb, Anxiety F41.9 [facility] [id number] [place] [address] 91316- 5476 Jan, [facility] [id number] [place] [address] 85666- 5908 Jan, Chronic back pain M54.9 and Anxiety F41.9 [facility] [id number] [place] [address] 92063- 5128 December, Chronic back pain M54.9 and Anxiety F41.9 [facility] [id number] [place] [address] 96099- 1845 Nov, Chronic back pain M54.9 and Anxiety F41.9 [place] [address] 31296- 8077 Oct, Chronic back pain M54.9 and Anxiety F41.9 [place] [id number] [place] [address] 15218- 1705 Oct, [place] [address] [id number] [place] [address] 67447- 3124 Sep, Chronic back pain M54.9 ; Anxiety F41.9 ; Pain of left leg M79.605 and Pain in right leg M79.604 [place] [id number] [place] [address] 41384- 9256 Sep, Anxiety F41.9 and Chronic back pain M54.9 [place] [id number] [place] [address] 35624- 8516 Sep, [facility] [id number] [place] [address] 57943- 2786 Aug, Anxiety F41.9 [place] [id number] [place] [address] 99049- 9138 Jul, Anxiety F41.9 [facility] [id number] [place] [address] 62538- 8492 Jul, [place] [id number] [place] [address] 72162- 2550 Jul, Viral syndrome B34.9 ; Chronic back pain M54.9 and Dysuria R30.0 [place] [address] [address] [id number] [place] [address] 65417- 6128 Jun, [facility] [address] [address]- 5277 Jun, Anxiety F41.9 [facility] [id number] [place] [address] 54858 -8074 Jun, Dysuria R30.0 and Acute cystitis without hematuria N30.00 [facility] [id number] [place] [address] 85220- 4035 Jun, [facility] [id number] [place] [address] 70930- 9487 May, Anxiety F41.9 [facility] [id number] [place] [address] 53754- 0871 May, Anxiety F41.9 [facility] [id number] [place] [address] 65103- 4971 Apr, [facility] [id number] [place] [address] 17108- 9810 Apr, Chronic back pain M54.9 and Anxiety F41.9 [facility] [id number] [place] [address] 62921- 1314 Mar, [facility] [id number] [place] [address] 93862- 8882 Mar, [facility] [id number] [place] [address] 33654- 7832 Mar, Well woman exam Z01.419 ; Cervical cancer screening Z12.4 ; Breast cancer screening Z12.31 and Colon cancer screening Z12.11 [facility] [id number] [place] [address] 58331- 0165 Mar, Chronic back pain M54.9 and Anxiety F41.9 [facility] [id number] [place] [address] 57107- 0056 Mar, [facility] [id number] [place] [address] 34309- 7348 Feb, Chronic back pain M54.9 and Anxiety F41.9 [facility] [address] [facility] [id number] [place] [address] 54916- 9066 Feb, [facility] [address] [place] [id number] [place] [address] 43503- 7786 Feb, [facility] [id number] [place] [address] 81836- 4988 Jan, Chronic back pain M54.9 and Anxiety F41.9 [facility] [address] [facility] [id number] [place] [address] 68793- 2711 Jan, [facility] [address] [place] [id number] [place] [address] 85679- 5426 Jan, [facility] [id number] [place] [address] 95672- 4349 December, Chronic back pain M54.9 and Anxiety F41.9 [facility] [address] [place] [id number] [place] [address] 46579- 7944 Nov, Chronic back pain M54.9 and Anxiety F41.9 [facility] [id number] [place] [address] 41488- 5640 Oct, Chronic back pain M54.9 and Anxiety F41.9 [facility] [id number] [place] [address] 28053- 5601 Oct, Chronic back pain M54.9 [facility] [id number] [place] [address] 71552- 8303 Sep, Anxiety F41.9 and Chronic back pain M54.9 [facility] [address] [place] [id number] [place] [address] 86360- 2036 Aug, Anxiety F41.9 and Chronic back pain M54.9 [facility] [id number] [place] [address] 83357- 7297 Aug, [facility] [id number] [place] [address] 35948- 7774 Jul, Chronic back pain M54.9 and Anxiety F41.9 [facility] [id number] [place] [address] 22447- 5176 Jul, Anxiety F41.9 and Chronic back pain M54.9 [facility] [address] [place] [address] Jul, [facility] [address] 61920- 0368 Jul, Anxiety F41.9 [facility] [address] 33836- 7495 Jul, Anxiety F41.9 and Dysuria R30.0 [facility] [id number] [place] [address] 11303- 7685 Jul, Chronic back pain M54.9 and Anxiety F41.9 [facility] [id number] [place] [address] 03243- 5390 Jun, Chronic back pain M54.9 [facility] [address] 68844- 2028 Jun, Chronic back pain M54.9 [facility] [id number] [place] [address] 48093- 7009 May, Anxiety F41.9 [facility] [id number] [place] [address] 74370- 4762 May, Chronic back pain M54.9 [facility] [id number] [place] [address] 13230- 2854 Apr, [facility] [id number] [place] [address] 23397- 2894 Apr, [facility] [id number] [place] [address] 26767- 6378 Apr, [facility] [address] [place] [address]- 0120 Apr, Chronic back pain M54.9 [facility] [id number] [place] [address] 83568- 3273 Mar, Chronic back pain M54.9 [facility] [id number] [place] [address] 06802- 5000 Feb, Grief F43.20 [facility] [id number] [place] [address] 85699- 6105 Feb, Chronic back pain M54.9 and Anxiety F41.9 [facility] [id number] [place] [address] 02959- 6844 Feb, Chronic back pain M54.9 [facility] [id number] [place] [address] 36263- 5164 Jan, Chronic back pain M54.9 [facility] [id number] [place] [address] 82156- 6183 December, [facility] [id number] [place] [address] 59428- 3682 December, Grief F43.20 [facility] [id number] [place] [address] 04963- 5355 Nov, [facility] [id number] [place] [address] 45673- 5083 Oct, Cervicalgia M54.2 ; Secondary esophageal varices with bleeding I85.11 and Mouth pain K13.79 [facility] [address] [id number] [place] [address] 63209- 4373 Oct, [facility] [id number] [place] [address] 65009- 5492 Oct, [facility] [id number] [place] [address] 25585- 3168 Sep, [facility] [id number] [place] [address] 65247- 5286 Sep, Acute maxillary sinusitis, recurrence not specified J01.00 [facility] [id number] [place] [address] 07682- 2190 Aug, [facility] [id number] [place] [address] 85439- 6727 Aug, [facility] [id number] [place] [address] 65358- 3330 Aug, Dysuria R30.0 and Chronic back pain M54.9 [facility] [id number] [place] [address] 80328- 2274 Jul, [facility] [id number] [place] [address] 48915- 8721 Jul, [facility] [id number] [place] [address] 72278- 5318 Jul, [facility] [id number] [place] [address] 88968- 2571 Jul, Chronic back pain M54.9 [facility] [id number] [place] [address] 30246- 2422 Jul, Dysthymia F34.1 and Chronic back pain M54.9 [facility] [id number] [place] [address] 91044- 6118 Jun, [facility] [id number] [place] [address] 24649- 0894 Jun, [facility] [id number] [place] [address] 57330- 3115 May, [facility] [id number] [place] [address] 53998- 9911 15 May, 2015 [facility] [id number] [place] [address] 61776- 8797 13 May, 2015 [facility] [id number] [place] [address] 24256- 1129 May, Encounter for immunization Z23 [facility] [address] [place] [id number] [place] [address] 95747- 2124 15 Apr, 2015 [facility] [id number] [place] [address] 99488- 8638 10 Apr, 2015 [facility] [id number] [place] [address] 65019- 6801 Mar, [facility] [id number] [place] [address] 18255- 1961 Mar, Back pain 724.5 [facility] [id number] [place] [address] 76559- 9045 Mar, Cough 786.2 and Back pain 724.5 [facility] [id number] [place] [address] 78777- 5516 Mar, [facility] [id number] [place] [address] 22817- 5413 Mar, [facility] [id number] [place] [address] 29012- 6805 December, [facility] [id number] [place] [address] 91842- 6592 December, [facility] [id number] [place] [address] 54534- 3253 Nov, [facility] [id number] [place] [address] 72150- 0541 Nov, [facility] [id number] [place] [address] 19753- 0785 Oct, [facility] [id number] [place] [address] 47457- 3357 Oct, [facility] [address] [place] [address]- 3285 13 Sep, 2014 [facility] [id number] [place] [address] 32356- 0824 Sep, 2014 [facility] [place] [facility] [address] [id number] [place] [address]- 0788 Sep, 2014 [facility] [place] [facility] [address] [id number] [place] 7046 Sep, 2014 [facility] [place] [facility] [address] [id number] [place] [address]- 2686 Sep, 2014 [facility] [place] [facility] [address] [id number] [place] [address]- 1446 Sep, 2014 [facility] [place] [facility] [address] [id number] [place] [address]- 1369 Sep, 2014 [facility] [place] [facility] [address] [id number] [place] [address]- 5942 Sep, [facility] [place] [facility] [address] [id number] [place] [address]- 6006 Aug, [facility] [place] [facility] [address] [id number] [place] [address]- 0985 Aug, [facility] [place] [facility] [address] [id number] [place] [address]- 6931 Aug, [facility] [place] [facility] [address] [facility] [id number] [place] [address]- 3050 Aug, [facility] [place] [facility] [address] [id number] [place] [address]- 7123 Aug, [facility] [place] [facility] [address] [id number] [place] [address]- 7548 Aug, [facility] [place] [facility] [address] [id number] [place] [address]- 8821 Aug, [facility] [place] [facility] [address] [id number] [place] [address]- 6704 Jul, [facility] [place] [facility] [address] [id number] [place] [address]- 7311 Jul, [facility] [place] [facility] [address] [id number] [place] [address]- 2889 Jul, [facility] [place] [facility] [address] [id number] [place]- 4358 Jul, [facility] [place] [facility] [address] [id number] [place] 7511 Jul, [facility] [place] [facility] [address] [id number] [place] [address]- 8720 Jul, [facility] [place] [facility] [address] [id number] [place] [address]- 6098 Jul, [facility] [place] [facility] [address] [id number] [place] [address]- 3012 Jul, [facility] [place] [facility] [address] [id number] [place] [address]- 9269 Jun, [facility] [place] [facility] [address] [id number] [place] [address]- 5009 Jun, [facility] [place] [facility] [address] [id number] [place] [address]- 0661 Jun, [facility] [place] [facility] [address] [id number] [place] [address]- 2646 Jun, [facility] [place] [facility] [address] [id number] [place] [address]- 9026 Jun, [facility] [place] [facility] [address] [id number] [place] [address]- 9695 Jun, [facility] [place] [facility] [address] [id number] [place] [address]- 9934 Jun, [facility] [place] [facility] [address] [id number] [place] [address]- 2225 May, [facility] [place] [facility] [address] [id number] [place] [address]- 9786 May, [facility] [place] [facility] [address] [id number] [place] [address]- 3265 28 May, 2014 [facility] [place] [facility] [address] [id number] [place] [address]- 1402 28 May, 2014 [facility] [place] [facility] [address] [id number] [place] [address]- 0398 2014 [facility] [place] [facility] [address] [id number] [place] [address]- 1074 2014 [facility] [place] [facility] [address] [id number] [place] [address]- 4821 2014 [facility] [place] [facility] [address] [id number] [place] [address]- 1192 2014 [facility] [place] [facility] [address] [id number] [place] [address]- 6807 May, [facility] [place] [facility] [address] [id number] [place] [address]- 8687 13 May, 2014 [facility] [place] [facility] [address] [id number] [place] [address]- 6403 10 May, 2014 [facility] [place] [facility] [address] [id number] [place] [address]- 1293 10 May, 2014 [facility] [place] [facility] [address] [id number] [place] [address]- 4708 08 May, 2014 [facility] [place] [facility] [address] [id number] [place] [address]- 6452 08 May, 2014 [facility] [place] [facility] [address] [id number] [place] [address]- 6922 26 Apr, 2013 [facility] [place] [facility] [address] [id number] [place] [address]- 7120 23 Apr, 2013 [facility] [place] [facility] [address] [id number] [place] [address]- 2780 23 Apr, 2013 [facility] [place] [facility] [address] [id number] [place] [address]- 5975 23 Apr, 2013 [facility] [place] [facility] [address] [id number] [place] [address]- 4352 Apr, [facility] [place] [facility] [address] [id number] [place] [address]- 2986 Apr, [facility] [place] [facility] [address] [id number] [place] [address]- 7486 Apr, [facility] [place] [facility] [address] [id number] [place] [address]- 6696 Mar, [facility] [place] [facility] [address] [id number] [place] [address]- 3277 Mar, [facility] [place] [facility] [address] [id number] [place] [address]- 9806 Mar, [facility] [place] [facility] [address] [id number] [place] [address]- 3463 Mar, [facility] [place] [facility] [address] [id number] [place] [address]- 9824 Mar, [facility] [place] [facility] [address] [id number] [place] [address]- 8093 Mar, [facility] [place] [facility] [address] [id number] [place] [address] Feb, [facility] [place] [facility] [address] [id number] [place] [address] Feb, [facility] [place] [facility] [address] [id number] [place] [address] Feb, [facility] [place] [facility] [address] [id number] [place] [address] Feb, [facility] [place] [facility] [address] [id number] [place] [address] Feb, [facility] [place] [facility] [address] [id number] [place] [address] Feb, [facility] [place] [facility] [address] [id number] [place] [address] Feb, [facility] [place] [facility] [address] [id number] [place] [address] Feb, [facility] [place] [facility] [address] [id number] [place] [address] Jan, [facility] [place] [facility] [address] [id number] [place] [address] Jan, [facility] [place] [facility] [address] [id number] [place] [address] December, [facility] [place] [facility] [address] [id number] [place] [address] December, [facility] [place] [facility] [address] [id number] [place] [address] December, [facility] [place] [facility] [address] [id number] [place] [address] December, [facility] [place] [facility] [address] [id number] [place] [address] December, [facility] [place] [facility] [address] [id number] [place] [address] December, [facility] [place] [facility] [address] [id number] [place] [address] December, [facility] [place] [facility] [address] [id number] [place] [address] December, [facility] [place] [facility] [address] [id number] [place] [address] December, [facility] [place] [facility] [address] [id number] [place] [address] December, [facility] [place] [facility] [address] [id number] [place] [address] December, [facility] [place] [facility] [address] [id number] [place] [address]- [address] December, [facility] [place] [facility] [address] [id number] [place] [address] Nov, [facility] [place] [facility] [address] [id number] [place] [address] Nov, [facility] [place] [facility] [address] [id number] [place] [address] Nov, [facility] [place] [facility] [address] [id number] [place] [address] Nov, [facility] [place] [facility] [address] [id number] [place] [address] Nov, [facility] [place] [facility] [address] [id number] [place] [address] Nov, [facility] [place] [facility] [address] [id number] [place] [address] Nov, [facility] [place] [facility] [address] [id number] [place] [address] Nov, [facility] [place] [facility] [address] [id number] [place] [address] Nov, [facility] [place] [facility] [address] [id number] [place] [address] Nov, [facility] [place] [facility] [address] [id number] [place] [address] Nov, [facility] [place] [facility] [address] [id number] [place] [address]- [address] Nov, [facility] [place] [facility] [address] [id number] [place] [address] Nov, [facility] [place] [facility] [address] [id number] [place] [address] Oct, [facility] [place] [facility] [address] [id number] [place] [address] Oct, [facility] [place] [facility] [address] [id number] [place] [address] Sep, [facility] [place] [facility] [address] [id number] [place] [address] Sep, [facility] [place] [facility] [address] [id number] [place] [address] Sep, [facility] [place] [facility] [address] [id number] [place] [address] Sep, [facility] [place] [facility] [address] [id number] [place] [address] Sep, [facility] [place] [facility] [address] [id number] [place] [address] Sep, [facility] [place] [facility] [address] [id number] [place] [address] Sep, [facility] [place] [facility] [address] [id number] [place] [address] Sep, [facility] [place] [facility] [address] [id number] [place] [address] 3895 Sep, [facility] [place] [facility] [address] [id number] [place] [address] 0061 Sep, [facility] [place] [facility] [address] [facility] [id number] [place] [address] 2083 Sep, [facility] [place] [facility] [address] [id number] [place] [address] 7313 Sep, [facility] [place] [facility] [address] [id number] [place] [address] 8670 Aug, [facility] [place] [facility] [address] [id number] [place] [address]- 3657 Aug, [facility] [place] [facility] [address] [id number] [place] [address]- 0566 Aug, [facility] [place] [facility] [address] [id number] [place] [address] 7212 Aug, [facility] [place] [facility] [address] [id number] [place] [address] 8727 Aug, [facility] [address] [id number] [place] [address] 6487 Aug, [facility] [place] [facility] [address] [id number] [place] [address]- 7093 Aug, [facility] [place] [facility] [address] [id number] [place] [address]- 3526 Aug, [facility] [place] [facility] [address] [id number] [place] [address]- 8015 Aug, [facility] [place] [facility] [address] [id number] [place] [address]- 2616 Aug, [facility] [place] [facility] [address] [id number] [place] [address]- 9100 Aug, [facility] [address] [id number] [place] [address]- 7431 Aug, [facility] [place] [facility] [address] [id number] [place] [address]- 4753 Aug, [facility] [place] [facility] [address] [id number] [place] [address]- 0942 Aug, [facility] [place] [facility] [address] [id number] [place] [address]- 1722 Aug, [facility] [place] [facility] [address] [id number] [place] [address]- 4134 Aug, [facility] [place] [facility] [address] [id number] [place] [address]- 7487 Aug, [facility] [place] [facility] [address] [id number] [place] [address]- 4966 Aug, [facility] [place] [facility] [address] [id number] [place] [address]- 9536 Aug, [facility] [place] [facility] [address] [id number] [place] [address]- 3528 Aug, [facility] [place] [facility] [address] [id number] [place] [address]- 2641 Aug, [facility] [address] [id number] [place] [address] 5920 Aug, [facility] [address] [id number] [place] [address]- 7095 Aug, [facility] [address] [id number] [place] [address]- 7227 Jul, [facility] [address] [id number] [place] [address]- 7093 Jul, [facility] [address] [id number] [place] [address] 1928 Jul, [facility] [address] [id number] [place] [address]- 7163 Jul, [facility] [address] [id number] [place] [address]- 5960 Jul, [facility] [address] [id number] [place] [address]- 1842 Jul, [facility] [address] [id number] [place] [address] 2774 Jun, [facility] [address] [id number] [place] [address]- 2236 Jun, [facility] [address] [id number], [place] [address] Jun, [facility] [place] [facility] [address] [id number] [place] [address] 5045 Jun, [facility] [place] [facility] [address] [id number] [place] [address]- 7065 Jun, [facility] [place] [facility] [address] [id number] [place] [address]- 7479 Jun, [facility] [place] [facility] [address] [id number], [place] [address] 6232 Jun, [facility] [place] [facility] [address] [id number] [place] [address]- 9342 Jun, [facility] [place] [facility] [address] [id number] [place] [address]- 0003 Jun, [facility] [place] [facility] [address] [id number] [place] [address]- 2491 Jun, [facility] [place] [facility] [address] [id number] [place] [address]- 7872 May, [facility] [place] [facility] [address] [id number] [place] [address]- 3204 May, [facility] [place] [facility] [address] [id number] [place] [address]- 2499 May, [facility] [place] [facility] [address] [id number] [place] [address]- 3073 May, [facility] [place] [facility] [address] [id number] [place] [address]- 0079 May, [facility] [place] [facility] [address] [id number] [place] [address]- 0026 May, [facility] [place] [facility] [address] [id number] [place] [address]- 7100 May, [facility] [place] [facility] [address] [id number], [place] [address]- 5625 May, [facility] [place] [facility] [address] [id number], [place] [address]- 2636 May, [facility] [place] [facility] [address] [id number] [place] [address]- 3729 May, [facility] [place] [facility] [address] [id number], [place] [address]- 4250 17 May, 2013 [facility] [place] [facility] [address] [id number] [place] [address]- 7784 16 May, 2013 [facility] [place] [facility] [address] [id number] [place] [address]- 2546 May, [facility] [address] [id number] [place] [address]- 0814 May, [facility] [place] [facility] [address] [id number] [place] [address]- 2546 May, [facility] [address] [id number] [place] [address]- 3858 Apr, [facility] [address] [id number] [place] [address]- 4530 Apr, [facility] [address] [id number] [place] [address]- 7852 Apr, [facility] [address] [id number] [place] [address]- 0895 Mar, [facility] [address] [id number] [place] [address]- 8495 Mar, [facility] [address] [id number] [place] [address]- 7942 Mar, [facility] [place] [facility] [address] [id number] [place] [address]- 9062 Mar, [facility] [address] [id number] [place] [address]- 2848 Mar, [facility] [place] [facility] [address] [id number] [place] [address]- 9461 Mar, [facility] [address] [id number] [place] [address]- 6878 Feb, [facility] [place] [facility] [address] [id number] [place] [address]- 9679 Feb, [facility] [place] [facility] [address] [id number] [place] [address]- 6181 Feb, [facility] [place] [facility] [address] [id number] [place] [address]- 7818 Feb, [facility] [address] [id number] [place] [address]- 3598 Feb, [facility] [place] [facility] [address] [id number] [place] [address]- 0583 Feb, [facility] [place] [facility] [address] [id number] [place] [address]- 0893 Feb, [facility] [place] [facility] [address] [id number] [place] [address]- 9485 Feb, [facility] [place] [facility] [address] [id number] [place] [address]- 4997 Feb, [facility] [place] [facility] [address] [id number] [place] [address]- 4782 Feb, [facility] [place] [facility] [address] [id number] [place] [address]- 5079 Jan, [facility] [place] [facility] [address] [id number] [place] [address]- 7930 Jan, [facility] [place] [facility] [address] [id number] [place] [address]- 5765 Jan, [facility] [place] [facility] [address] [id number] [place] [address]- 5215 Jan, [facility] [place] [facility] [address] [id number] [place] [address]- 4449 December, [facility] [place] [facility] [address] [id number] [place] [address]- 8103 December, [facility] [place] [facility] [address] [id number] [place] [address]- 7932 December, [facility] [place] [facility] [address] [id number] [place] [address]- 7382 Nov, [facility] [place] [facility] [address] [id number] [place] [address]- 4550 Nov, [facility] [place] [facility] [address] [id number] [place] [address]- 3593 24 Nov, 2012 [facility] [address] [id number] [place] [address]- 2934 Nov, [facility] [place] [facility] [address] [id number] [place] [address]- 6995 Nov, [facility] [address] [id number] [place] [address]- 0984 Nov, [facility] [place] [facility] [address] [id number] [place] [address]- 1885 Oct, [facility] [address] [id number] [place] [address]- 9191 Oct, [facility] [place] [facility] [address] [id number] [place] [address]- 9224 Oct, [facility] [address] [id number] [place] [address]- 3667 Sep, [facility] [place] [facility] [address] [id number] [place] [address]- 4903 Sep, [facility] [address] [id number] [place] [address]- 0296 Sep, [facility] [address] [id number] [place] [address]- 9489 Aug, [facility] [address] [id number] [place] [address]- 3931 Aug, [facility] [place] [facility] [address] [id number] [place] [address]- 4360 Aug, [facility] [place] [facility] [address] [id number] [place] [address]- 4637 Aug, [facility] [place] [facility] [address] [id number] [place] [address]- 5384 Jul, [facility] [address] [id number] [place] [address]- 4986 Jul, [facility] [place] [facility] [address] [id number] [place] [address]- 4034 Jul, [facility] [place] [facility] [address] [id number] [place]486 Jul, [facility] [place] [facility] [address] [id number] [place] [address]- 7710 Jun, [facility] [place] [facility] [address] [id number] [place] [address], [place] [address]- 3369 Jun, [facility] [place] [facility] [address] [id number] [place] [address]- 7432 Jun, [facility] [place] [facility] [address] [id number] [place] [address], [place] [address]- 2563 Jun, [facility] [place] [facility] [address] [facility] [id number] [place] [address]- 7503 Jun, [facility] [place] [facility] [address] [id number] [place] [address]- 7372 Jun, [facility] [place] [facility] [address] [id number] [place] [address]- 3894 Jun, [facility] [place] [facility] [address] [id number] [place] [address]- 4560 Jun, [facility] [place] [facility] [address] [facility] [id number] [place] [address]- 8366 May, [facility] [place] [facility] [address] [id number], [place] [address]- 8580 30 May, 2012 [facility] [place] [facility] [address] [id number] [place] [address]- 9033 May, [facility] [place] [facility] [address] [id number] [place] [address]- 0172 May, [facility] [place] [facility] [address] [id number] [place] [address]- 4315 2012 [facility] [place] [facility] [address] [id number], [place] [address]- 3200 13 May, 2012 [facility] [place] [facility] [address] [id number] [place] [address]- 7400 11 May, 2012 [facility] [place] [facility] [address] [id number] [place] [address]- 4416 11 May, 2012 [facility] [place] [facility] [address] [id number] [place] [address]- 9100 10 May, 2012 [facility] [place] [facility] [address] [id number] [place] [address]- 7093 08 May, 2012 [facility] [place] [facility] [address] [id number] [place] [address]- 6014 24 Apr, 2012 [facility] [place] [facility] [address] [id number] [place] [address]- 3219 19 Apr, 2012 [facility] [place] [facility] [address] [id number] [place] [address]- 0269 18 Apr, 2012 [facility] [place] [facility] [address] [id number] [place] [address]- 3040 17 Apr, 2012 [facility] [place] [facility] [address] [id number] [place] [address]- 9680 16 Apr, 2012 [facility] [place] [facility] [address] [id number] [place] [address]- 4529 10 Apr, 2012 [facility] [place] [facility] [address] [id number] [place] [address]- 8169 29 Mar, 2012 [facility] [place] [facility] [address] [id number] [place] [address]- 6593 27 Mar, 2012 [facility] [place] [facility] [address] [id number] [place] [address]- 1719 23 Mar, 2012 [facility] [place] [facility] [address] [id number] [place] [address]- 4113 13 Mar, 2012 [facility] [place] [facility] [address] [id number] [place] [address]- 5086 07 Mar, 2012 [facility] [place] [facility] [address] [id number] [place] [address] 2549 Mar, [facility] [place] [facility] [address] [id number] [place] [address]- 3305 Feb, [facility] [place] [facility] [address] [id number] [place] [address] 2546 Feb, [facility] [address] [id number] [place] [address]- 7858 Feb, [facility] [place] [facility] [address] [id number] [place] [address]- 5375 Feb, [facility] [place] [facility] [address] [id number] [place] [address]- 4302 Feb, [facility] [place] [facility] [address] [id number] [place] [address]- 0226 Feb, [facility] [place] [facility] [address] [id number] [place] [address]- 4097 Feb, [facility] [address] [id number] [place] [address]- 0873 Feb, [facility] [place] [facility] [address] [id number] [place] [address]- 5029 Feb, [facility] [address] [id number] [place] [address]- 7108 Jan, [facility] [place] [facility] [address] [id number] [place] [address]- 6293 Jan, [facility] [place] [facility] [address] [id number] [place] [address]- 7226 Jan, [facility] [place] [facility] [address] [id number] [place] [address]- 4139 Jan, [facility] [place] [facility] [address] [id number] [place] [address]- 4986 15 Jan, 2012 [facility] [place] [facility] [address] [id number] [place] [address]- 4766 Jan, [facility] [address] [id number] [place] [address]- 1440 Jan, [facility] [place] [facility] [address] [id number] [place] [address]- 8135 Jan, [facility] [place] [facility] [address] [id number] [place] [address]- 4872 Jan, [facility] [place] [facility] [address] [id number] [place] [address]- 7321 December, [facility] [place] [facility] [address] [id number] [place] [address]- 8021 December, [facility] [place] [facility] [address] [id number] [place] [address]- 1521 December, [facility] [place] [facility] [address] [id number] [place] [address]- 8570 December, [facility] [place] [facility] [address] [id number] [place] [address]- 5566 December, [facility] [place] [facility] [address] [id number] [place] [address]- 3866 December, [facility] [place] [facility] [address] [id number] [place] [address]- 1775 December, [facility] [place] [facility] [address] [id number] [place] [address]- 1207 December, [facility] [place] [facility] [address] [id number] [place] [address]- 1367 December, [facility] [place] [facility] [address] [id number] [place] [address]- 2780 December, [facility] [place] [facility] [address] [id number] [place] [address]- 9996 Nov, [facility] [place] [facility] [address] [id number] [place] [address]- 3161 Nov, [facility] [place] [facility] [address] [id number], [place] [address]- 1186 26 Nov, 2011 [facility] [address] [id number] [place] [address]- 2243 20 Nov, 2011 [facility] [place] [facility] [address] [id number] [place] [address]- 2516 16 Nov, 2011 [facility] [address] [id number] [place] [address]- 2276 13 Nov, 2011 [facility] [place] [facility] [address] [id number] [place] [address]- 8816 09 Nov, 2011 [facility] [address] [id number] [place] [address]- 4351 06 Nov, 2011 [facility] [address] [id number] [place] [address]- 6319 05 Nov, 2011 [facility] [address] [id number] [place] [address]- 4010 Nov, [facility] [address] [id number] [place] [address]- 7317 30 Oct, 2011 [facility] [address] [id number] [place] [address]- 5570 29 Oct, 2011 [facility] [address] [id number] [place] [address]- 2262 Oct, [facility] [address] [id number] [place] [address]- 3436 23 Oct, 2011 [facility] [place] [facility] [address] [id number] [place] [address]- 6345 21 Oct, 2011 [facility] [place] [facility] [address] [id number] [place] [address]- 3071 20 Oct, 2011 [facility] [place] [facility] [address] [id number] [place] [address]- 0692 19 Oct, 2011 [facility] [place] [facility] [address] [id number] [place] [address]- 3598 19 Oct, 2011 [facility] [place] [facility] [address] [id number] [place] [address]- 2158 16 Oct, 2011 [facility] [place] [facility] [address] [id number] [place] [address]- 6058 14 Oct, 2011 [facility] [place] [facility] [address] [id number] [place] [address] 2546 14 Oct, 2011 [facility] [place] [facility] [address] [id number] [place] [address]- 6972 09 Oct, 2011 [facility] [place] [facility] [address] [id number] [place] [address]- 7500 08 Oct, 2011 [facility] [place] [facility] [address] [id number] [place] [address]- 6980 06 Oct, 2011 [facility] [place] [facility] [address] [facility] [id number] [place] [address] 02 Oct, 2011 [facility] [place] [facility] [address] [id number] [place] [address] 28 Sep, 2011 [facility] [place] [facility] [address] [id number] [place] [address] 24 Sep, 2011 [facility] [place] [facility] [address] [facility] [id number] [place] [address] 20 Sep, 2011 [facility] [place] [facility] [address] [id number] [place] [address] 17 Sep, 2011 [facility] [place] [facility] [address] [id number] [place] [address] 16 Sep, 2011 [facility] [place] [facility] [address] [id number] [place] [address] 14 Sep, 2011 [facility] [place] [facility] [address] [id number] [place] [address] 13 Sep, 2011 [facility] [place] [facility] [address] [facility] [id number] [place] [address] 10 Sep, 2011 [facility] [place] [facility] [address] [facility] [id number] [place] [address] 06 Sep, 2011 [facility] [address] [id number] [place] [address] Sep, [facility] [address] [id number] [place] [address] Sep, [facility] [address] [id number] [place] [address] Aug, [facility] [address] [id number] [place] [address] Aug, [facility] [address] [id number] [place] [address] Aug, [facility] [address] [id number] [place] [address] Aug, [facility] [address] [id number] [place] [address] Aug, [facility] [address] [id number] [place] [address] Aug, [facility] [address] [id number] [place] [address]69 17 Aug, 2011 [facility] [address] [id number] [place] [address] 17 Aug, 2011 [facility] [address] [id number] [place] [address] 16 Aug, 2011 [facility] [address] [id number] [place] [address] 13 Aug, 2011 [facility] [place] [facility] [address] [id number] [place] [address] 11 Aug, 2011 [facility] [place] [facility] [address] [id number] [place] [address] 10 Aug, 2011 [facility] [address] [id number] [place] [address] 09 Aug, 2011 [facility] [address] [id number] [place] [address] Aug, [facility] [address] [id number] [place] [address] Aug, [facility] [address] [id number] [place] [address] Aug, [facility] [address] [id number] [place] [address] Aug, [facility] [address] [id number] [place] [address] Jul, [facility] [address] [id number] [place] [address] Jul, [facility] [address] [id number] [place] [address] Jul, [facility] [address] [id number] [place] [address] Jul, [facility] [address] [id number] [place] [address] Jul, [facility] [address] [id number] [place] [address] Jul, [facility] [address] [id number] [place] [address] 135[address] 17 Jul, 2011 [facility] [address] [id number] [place] [address] 16 Jul, 2011 [facility] [place] [facility] [address] [id number] [place] [address] Jul, [facility] [place] [facility] [address] [id number] [place] [address] Jul, [facility] [place] [facility] [address] [id number] [place] [address] 06 Jul, 2011 [facility] [place] [facility] [address] [id number] [place] [address] Jun, [facility] [address] [facility] [id number] [place] [address] Jun, [facility] [address] [facility] [id number] [place] [address] 2016 Jun, IMMUNIZATIONS No Known Immunizations SOCIAL HISTORY Never Assessed REASON FOR VISIT repository PLAN OF CARE VITAL SIGNS MEDICATIONS Medication Instructions Dosage Frequency Start Date End Date Duration Status Aciphex 20 mg Orally Once a day 1 tablet 24h Active Folic Acid 1 MG Orally Once a day 1 tablet 24h 90 days Active RESULTS No Results PROCEDURES No [...]
--- OUTSIDE RECORDS SUMMARY | 2018-08-05 03:08 | XMS REPORT ---
Author Author HEATHER FINE Organization [facility] Address [address] [place] [address] Care Team Providers Care Mill Control Operator Name Role Phone HEATHER FINE Unavailable PROBLEMS Type Condition ICD9-CM Code UQC61-BS Code Onset Dates Condition Status SNOMED Code Problem Unspecified cirrhosis of liver K74.60 Active 294753464 Problem Lymphocytosis D72.820 Active 97993646 Problem Secondary esophageal varices with bleeding I85.11 Active 70787495 Problem Anxiety F41.9 Active 19262531 Problem Asthma J45.909 Active 915463534 Problem Chronic back pain M54.9 Active 335218886 Problem Dysthymia F34.1 Active 62367023 Problem Thrombocytosis D47.3 Active 1123076 Problem Splenomegaly R16.1 Active 20565571 Problem 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 Active 476184712 Problem History of hepatitis C Z86.19 Active [id number] ALLERGIES No Information ENCOUNTERS Encounter Location Date Diagnosis [place] [id number] [place] [address] 98795- 0656 May, Anxiety F41.9 [place] [address] [place] [id number] [place] [address] 69518- 1566 16 May, 2018 Right arm pain M79.601 [place] [address] [place] [id number] [place] [address] 80806- 0994 May, Encounter for immunization Z23 [place] [address] [place] [id number] [place] [address] 37705- 8541 Apr, Anxiety F41.9 [place] [id number] [place] [id number] [place] [address] 27304- 5423 Apr, [place] [address] [place] [id number] [place] [address] 78100- 3315 Mar, Anxiety F41.9 [facility] [address] [place] [id number] [place] [address] 82181- 6079 Mar, [facility] [address] [place] [id number] [place] [address] 64739- 4938 Mar, Right arm pain M79.601 [facility] [address] [place] [id number] [place] [address] 09162- 0344 Mar, Anxiety F41.9 [facility] [address] [place] [id number] [place] [address] 02514- 9126 Feb, [facility] [address] 47892- 6549 Feb, Chronic back pain M54.9 ; Anxiety F41.9 and Dysuria R30.0 [facility] [address] [place] [id number] [place] [address] 63171- 2788 Feb, [facility] [address] [place] [id number] [place] [address] 98704- 3899 Feb, Anxiety F41.9 [facility] [address] [place] [id number] [place] [address] 97200- 9340 Jan, [facility] [address] [place] [id number] [place] [address] 41260- 1391 Jan, Chronic back pain M54.9 and Anxiety F41.9 [facility] [address] [place] [id number] [place] [address] 20991- 7379 December, Chronic back pain M54.9 and Anxiety F41.9 [facility] [address] [place] [id number] [place] [address] 72171- 2427 Nov, Chronic back pain M54.9 and Anxiety F41.9 [facility] [address] [place] [id number] [place] [address] 47597- 7662 Oct, Chronic back pain M54.9 and Anxiety F41.9 [facility] [address] [place] [id number] [place] [address] 50653- 1116 Oct, [facility] [address] [place] [id number] [place] [address] 39719- 8582 Sep, Chronic back pain M54.9 ; Anxiety F41.9 ; Pain of left leg M79.605 and Pain in right leg M79.604 [facility] [address] [place] [id number] [place] [address] 26867- 3475 Sep, Anxiety F41.9 and Chronic back pain M54.9 [facility] [address] [place] [id number] [place] [address] 25627- 7500 Sep, [facility] [address] [place] [id number] [place] [address] 36515- 7441 Aug, Anxiety F41.9 [facility] [address] [place] [id number] [place] [address] 91562- 4334 Jul, Anxiety F41.9 [facility] [address] [place] [id number] [place] [address] 87700- 9940 Jul, [facility] [address] [place] [id number] [place] [address] 11378- 5051 Jul, Viral syndrome B34.9 ; Chronic back pain M54.9 and Dysuria R30.0 [facility] [address] [place] [id number] [place] [address] 53974- 3637 Jun, [facility] [address] [place] [id number] [place] [address] 01229- 2580 Jun, Anxiety F41.9 [facility] [address] [place] [id number] [place] [address] 42113 -9716 16 Jun, 2017 Dysuria R30.0 and Acute cystitis without hematuria N30.00 [facility] [address] [place] [id number] [place] [address] 55547- 9122 Jun, [facility] [address] [place] [id number] [place] [address] 62601- 6756 May, Anxiety F41.9 [facility] [address] [facility] [id number] [place] [address]- 6404 May, Anxiety F41.9 [facility] [address] [facility] [id number] [address]- 2736 Apr, [facility] [address] [address]- 7496 Apr, Chronic back pain M54.9 and Anxiety F41.9 [facility] [address] [facility] [id number] [place] [address]- 5246 Mar, [facility] [address] [place] [address] 39804- 1456 Mar, [facility] [address] [address]- 9889 Mar, Well woman exam Z01.419 ; Cervical cancer screening Z12.4 ; Breast cancer screening Z12.31 and Colon cancer screening Z12.11 [facility] [address] [address]- 8546 Mar, Chronic back pain M54.9 and Anxiety F41.9 [facility] [address] [address]- 3828 Mar, [facility] [address] [address]- 2953 Feb, Chronic back pain M54.9 and Anxiety F41.9 [facility] [address] [facility] [id number] [place] [address]- 5299 Feb, [facility] [address] [facility] [id number] [place] [address]- 9978 Feb, [facility] [address] [facility] [id number] [place] [address]- 7826 Jan, Chronic back pain M54.9 and Anxiety F41.9 [facility] [address] [place] [address] 79144- 9739 Jan, [facility] [address] [place] [address] 02124- 4264 Jan, [facility] [address] [place] [address] 20073- 9935 December, Chronic back pain M54.9 and Anxiety F41.9 [facility] [address] [place] [id number] [place] [address] 99756- 5545 Nov, Chronic back pain M54.9 and Anxiety F41.9 [facility] [address] [place] [id number] [place] [address] 20837- 9899 Oct, Chronic back pain M54.9 and Anxiety F41.9 [facility] [address] [place] [id number] [place] [address] 24527- 3508 Oct, Chronic back pain M54.9 [facility] [address] [place] [id number] [place] [address] 55933- 9123 Sep, Anxiety F41.9 and Chronic back pain M54.9 [facility] [address] [place] [id number] [place] [address] 70306- 8490 Aug, Anxiety F41.9 and Chronic back pain M54.9 [facility] [address] [place] [address] 02932- 2192 Aug, [facility] [address] [place] [id number] [place] [address] 85789- 1681 Jul, Chronic back pain M54.9 and Anxiety F41.9 [facility] [address] [place] [address] 78839- 6164 Jul, Anxiety F41.9 and Chronic back pain M54.9 [facility] [address] [facility] [place] [address] Jul, [facility] [address] [place] [address] 07936- 3590 Jul, Anxiety F41.9 [facility] [address] [facility] [id number] [place] [address] 73571- 9449 Jul, Anxiety F41.9 and Dysuria R30.0 [facility] [address] [place] [id number] [place] [address] 98735- 6596 Jul, Chronic back pain M54.9 and Anxiety F41.9 [facility] [address] [place] [id number] [place] [address] 66863- 1890 Jun, Chronic back pain M54.9 [facility] [address] [facility] [id number] [place] [address] 51310 2546 Jun, Chronic back pain M54.9 [facility] [address] [place] [id number] [place] [address] 57855- 3746 May, Anxiety F41.9 [facility] [address] [place] [id number] [place] [address] 93990- 5412 May, Chronic back pain M54.9 [facility] [address] [place] [id number] [place] [address] 33973- 9226 Apr, [facility] [address] [place] [id number] [place] [address] 57293 2546 Apr, [facility] [address] [place] [id number] [place] [address] 53592 2540 Apr, [facility] [address] [place] [address] 73158 2541 Apr, Chronic back pain M54.9 [facility] [address] [place] [id number] [place] [address] 91500 2545 Mar, Chronic back pain M54.9 [facility] [address] [place] [id number] [place] [address] 16391 2546 Feb, Grief F43.20 [facility] [address] [place] [id number] [place] [address] 99568- 7783 Feb, Chronic back pain M54.9 and Anxiety F41.9 [facility] [address] [place] [id number] [place] [address] 02610- 1918 Feb, Chronic back pain M54.9 [facility] [address] [place] [id number] [place] [address] 13317- 5183 Jan, Chronic back pain M54.9 [facility] [address] [place] [id number] [place] [address] 69270- 9667 December, [facility] [address] [place] [id number] [place] [address] 31481- 5355 December, Grief F43.20 [facility] [address] [place] [id number] [place] [address] 45292- 5422 Nov, [facility] [address] [place] [id number] [place] [address] 58152- 1178 Oct, Cervicalgia M54.2 ; Secondary esophageal varices with bleeding I85.11 and Mouth pain K13.79 [facility] [address] [place] [id number] [place] [address] 47583- 4353 Oct, [facility] [address] [place] [id number] [place] [address] 83476- 1172 Oct, [facility] [address] [place] [id number] [place] [address] 41144- 4302 Sep, [facility] [address] [place] [id number] [place] [address] 27996- 9797 Sep, Acute maxillary sinusitis, recurrence not specified J01.00 [facility] [address] [place] [id number] [place] [address] 72573- 2268 Aug, [facility] [address] [place] [id number] [place] [address] 88609- 1547 Aug, [facility] [address] [place] [id number] [place] [address] 69900- 1535 Aug, Dysuria R30.0 and Chronic back pain M54.9 [facility] [address] [place] [id number] [place] [address] 33359- 7882 Jul, [facility] [address] [place] [id number] [address]- 0260 Jul, [facility] [address] [place] [address] 337087- 2319 Jul, [facility] [address] [place] [id number] [place] [address] 500515- 2958 Jul, Chronic back pain M54.9 [facility] [address] [place] [id number] [place] [address] 40105- 0076 Jul, Dysthymia F34.1 and Chronic back pain M54.9 [facility] [address] [place] [id number] [place] [address] 08684- 2319 Jun, [facility] [address] [place] [id number] [place] [address] 51180- 1216 Jun, [facility] [address] [place] [id number] [place] [address] 81720- 0054 May, [facility] [address] [place] [address] 48212- 5203 May, [facility] [address] [place] [address] 69246- 8405 May, [facility] [address] [address]- 0673 May, Encounter for immunization Z23 [facility] [address] [place] [address] 88523- 8838 15 Apr, 2015 [facility] [address] [place] [id number] [address]- 8905 Apr, [facility] [address] [place] [id number] [place] [address] 34754- 6052 Mar, [facility] [address] [place] [id number] [address]- 7741 Mar, Back pain 724.5 [facility] [address] [id number] [place] [address]- 9174 17 Mar, 2015 Cough 786.2 and Back pain 724.5 [facility] [place] [facility] [address] [id number] [place] [address]- 9371 Mar, [facility] [place] [facility] [address] [facility] [id number] [place] [address]- 6809 Mar, [facility] [place] [facility] [address] [id number] [place] [address]- 5287 December, [facility] [place] [facility] [address] [id number] [place] [address]- 2513 December, [facility] [place] [facility] [address] [place] [id number] [place] [address]- 0863 Nov, [facility] [place] [facility] [address] [place] [address]- 8515 Nov, [facility] [place] [facility] [address] [place] [id number] [place] [address]- 8434 Oct, [facility] [place] [facility] [address] [id number] [place] [address]- 5940 Oct, [facility] [place] [facility] [address] [place] [address] [id number] [place] [address]- 7166 Sep, [facility] [place] [facility] [address] [place] [address]- 5667 Sep, [facility] [place] [facility] [address] [facility] [id number] [place] [address]- 8485 Sep, [facility] [place] [facility] [address] [id number] [place] [address]- 5082 Sep, [facility] [place] [facility] [address] [facility] [id number] [place] [address]- 4914 Sep, [facility] [place] [facility] [address] [place] [id number] [place] [address]- 3150 Sep, [facility] [place] [facility] [address] [facility] [id number] [place] [address]- 3532 02 Sep, 2014 [facility] [address] [id number] [place] [address]- 2206 Sep, [facility] [place] [facility] [address] [id number] [place] [address]- 6326 Aug, [facility] [place] [facility] [address] [id number] [place] [address]- 4834 Aug, [facility] [place] [facility] [address] [id number] [place] [address]- 3115 Aug, [facility] [place] [facility] [address] [id number] [place] [address]- 5339 Aug, [facility] [place] [facility] [address] [id number] [place] [address]- 2926 Aug, [facility] [place] [facility] [address] [id number] [place] [address]- 6760 Aug, [facility] [place] [facility] [address] [id number] [place] [address]- 8998 Aug, [facility] [place] [facility] [address] [id number] [place] [address]- 4001 Jul, [facility] [place] [facility] [address] [id number] [place] [address]- 8362 Jul, [facility] [place] [facility] [address] [id number] [place] [address]- 8187 18 Jul, 2014 [facility] [place] [facility] [address] [id number] [place] [address]- 4517 18 Jul, 2014 [facility] [place] [facility] [address] [id number] [place] [address]- 3841 15 Jul, 2014 [facility] [place] [facility] [address] [id number] [place] [address]- 9256 15 Jul, 2014 [facility] [place] [facility] [address] [id number] [place] [address]- 8978 05 Jul, 2014 [facility] [place] [facility] [address] [id number] [place] [address]- 3147 05 Jul, 2014 [facility] [place] [facility] [address] [id number] [place] [address]- 8232 Jun, [facility] [place] [facility] [address] [id number] [place] [address]- 7094 Jun, [facility] [place] [facility] [address] [id number] [place] [address]- 8341 Jun, [facility] [place] [facility] [address] [id number] [place] [address] Jun, [facility] [place] [facility] [address] [id number] [place] [address] Jun, [facility] [place] [facility] [address] [id number] [place] [address] Jun, [facility] [place] [facility] [address] [id number] [place] [address] Jun, [facility] [place] [facility] [address] [id number] [place] [address] May, [facility] [place] [facility] [address] [id number] [place] [address] May, [facility] [place] [facility] [address] [id number] [place] [address] May, [facility] [place] [facility] [address] [id number] [place] [address] May, [facility] [place] [facility] [address] [id number] [place] [address] May, [facility] [place] [facility] [address] [id number] [place] [address] May, [facility] [place] [facility] [address] [id number] [place] [address] May, [facility] [place] [facility] [address] [id number] [place] [address] 2014 [facility] [place] [facility] [address] [id number] [place] [address] 13 May, 2014 [facility] [place] [facility] [address] [id number] [place] [address] 13 May, 2014 [facility] [place] [facility] [address] [id number] [place] [address] 10 May, 2014 [facility] [place] [facility] [address] [id number] [place] [address] May, [facility] [place] [facility] [address] [id number] [place] [address] May, [facility] [place] [facility] [address] [id number] [place] [address] May, [facility] [place] [facility] [address] [id number] [place] [address] 26 Apr, 2014 [facility] [place] [facility] [address] [id number] [place] [address] 23 Apr, 2013 [facility] [place] [facility] [address] [id number] [place] [address] 23 Apr, 2014 [facility] [place] [facility] [address] [id number] [place] [address] 23 Apr, 2013 [facility] [place] [facility] [address] [id number] [place] [address] 23 Apr, 2013 [facility] [place] [facility] [address] [id number] [place] [address] 10 Apr, 2014 [facility] [place] [facility] [address] [id number] [place] [address] 10 Apr, 2014 [facility] [place] [facility] [address] [id number] [place] [address] 15 Mar, 2014 [facility] [place] [facility] [address] [id number] [place] [address] 15 Mar, 2014 [facility] [place] [facility] [address] [id number] [place] [address] Mar, [facility] [place] [facility] [address] [id number] [place] [address] Mar, [facility] [place] [facility] [address] [id number] [place] [address] Mar, [facility] [place] [facility] [address] [id number] [place] [address] Mar, [facility] [place] [facility] [address] [id number] [place] [address] Feb, [facility] [place] [facility] [address] [id number] [place] [address] Feb, [facility] [place] [facility] [address] [id number] [place] [address] Feb, [facility] [place] [facility] [address] [id number] [place] [address] Feb, [facility] [place] [facility] [address] [id number] [place] [address] Feb, [facility] [place] [facility] [address] [id number] [place] [address] Feb, [facility] [place] [facility] [address] [id number] [place] [address] Feb, [facility] [place] [facility] [address] [id number] [place] [address] Feb, [facility] [place] [facility] [address] [id number] [place] [address] Jan, [facility] [place] [facility] [address] [id number] [place] [address] Jan, [facility] [place] [facility] [address] [id number] [place] [address] December, [facility] [place] [facility] [address] [id number] [place] [address] December, [facility] [place] [facility] [address] [id number] [place] [address] 7245 December, [facility] [place] [facility] [address] [id number] [place] [address] 1170 December, [facility] [place] [facility] [address] [id number] [place] [address] 4150 December, [facility] [place] [facility] [address] [id number] [place] [address] December, [facility] [place] [facility] [address] [id number] [place] [address]13 December, [facility] [place] [facility] [address] [id number] [place] [address]30 December, [facility] [place] [facility] [address] [id number] [place] [address] 7125 December, [facility] [place] [facility] [address] [id number] [place] [address] 2226 December, [facility] [place] [facility] [address] [id number] [place] [address] 7838 December, [facility] [place] [facility] [address] [id number] [place] [address] 5113 December, [facility] [place] [facility] [address] [id number] [place] [address]- 6191 Nov, [facility] [place] [facility] [address] [id number] [place] [address]- 2534 Nov, [facility] [place] [facility] [address] [id number] [place] [address]- 6145 Nov, [facility] [place] [facility] [address] [id number] [place] [address]- 7410 Nov, [facility] [place] [facility] [address] [id number] [place] [address]- 1794 Nov, [facility] [place] [facility] [address] [id number] [place] [address]- 2943 Nov, [facility] [address] [id number] [place] [address]- 7535 Nov, [facility] [place] [facility] [address] [id number] [place] [address]- 4348 Nov, [facility] [place] [facility] [address] [id number] [place] [address]- 7913 Nov, [facility] [place] [facility] [address] [id number] [place] [address]- 5240 Nov, [facility] [place] [facility] [address] [id number] [place] [address]- 0106 Nov, [facility] [place] [facility] [address] [id number] [place] [address]- 1790 Nov, [facility] [place] [facility] [address] [id number] [place] [address]- 4705 Nov, [facility] [place] [facility] [address] [id number] [place] [address]- 9720 Oct, [facility] [place] [facility] [address] [id number] [place] [address]- 5712 Oct, [facility] [place] [facility] [address] [id number] [place] [address]- 1121 Sep, [facility] [place] [facility] [address] [id number] [place] [address]- 8695 Sep, [facility] [place] [facility] [address] [id number] [place] [address]- 0567 Sep, [facility] [place] [facility] [address] [id number] [place] [address]- 7279 Sep, [facility] [place] [facility] [address] [id number] [place] [address]- 2591 Sep, [facility] [place] [facility] [address] [id number] [place] [address]- 0223 Sep, [facility] [place] [facility] [address] [id number] [place] [address]- 4158 Sep, [facility] [place] [facility] [address] [facility] [id number] [place] [address]- 3420 Sep, [facility] [place] [facility] [address] [facility] [id number] [place] [address]- 0306 Sep, [facility] [place] [facility] [address] [id number] [place] [address]- 0634 Sep, [facility] [place] [facility] [address] [id number] [place] [address]- 8941 Sep, [facility] [place] [facility] [address] [facility] [id number] [place] [address]- 0080 Sep, [facility] [place] [facility] [address] [facility] [id number] [place] [address]- 0467 Aug, [facility] [place] [facility] [address] [facility] [id number] [place] [address]- 8710 Aug, [facility] [place] [facility] [address] [facility] [id number] [place] [address]- 6754 Aug, [facility] [place] [facility] [address] [facility] [id number] [place] [address]- 3273 Aug, [facility] [place] [facility] [address] [facility] [id number] [place] [address]- 6902 Aug, [facility] [place] [facility] [address] [facility] [id number] [place] [address]- 7129 Aug, [facility] [place] [facility] [address] [facility] [id number] [place] [address]- 5364 Aug, [facility] [place] [facility] [address] [facility] [id number] [place] [address]- 9005 Aug, [facility] [place] [facility] [address] [facility] [id number] [place] [address]- 6559 Aug, [facility] [place] [facility] [address] [id number] [place] [address]- 2334 Aug, [facility] [place] [facility] [address] [id number] [place] [address]- 6807 Aug, [facility] [place] [facility] [address] [id number] [place] [address]- 1596 Aug, [facility] [place] [facility] [address] [id number] [place] [address]- 2587 Aug, [facility] [place] [facility] [address] [id number] [place] [address]- 4177 Aug, [facility] [place] [facility] [address] [id number] [place] [address]- 7717 Aug, [facility] [place] [facility] [address] [id number] [place] [address]- 5478 Aug, [facility] [place] [facility] [address] [id number] [place] [address]- 4422 Aug, [facility] [place] [facility] [address] [id number] [place] [address]- 0317 Aug, [facility] [place] [facility] [address] [id number] [place] [address]- 7848 Aug, [facility] [place] [facility] [address] [id number] [place] [address]- 5708 Aug, [facility] [place] [facility] [address] [id number] [place] [address]- 4726 Aug, [facility] [place] [facility] [address] [id number] [place] [address]- 8806 Aug, [facility] [place] [facility] [address] [id number] [place] [address]- 7667 Aug, [facility] [place] [facility] [address] [id number] [place] [address]- 3032 13 Jul, 2013 [facility] [place] [facility] [address] [id number] [place] [address]- 5777 Jul, [facility] [place] [facility] [address] [id number] [place] [address]- 4249 Jul, [facility] [place] [facility] [address] [id number] [place] [address]- 9484 Jul, [facility] [place] [facility] [address] [id number] [place] [address]- 5581 Jul, [facility] [place] [facility] [address] [id number] [place] [address]- 8987 Jul, [facility] [place] [facility] [address] [id number] [place] [address]- 1480 Jun, [facility] [place] [facility] [address] [id number] [place] [address]- 8128 Jun, [facility] [place] [facility] [address] [id number] [place] [address]- 4842 Jun, [facility] [place] [facility] [address] [id number] [place] [address]- 9850 Jun, [facility] [place] [facility] [address] [id number] [place] [address]- 1939 Jun, [facility] [place] [facility] [address] [id number] [place] [address]- 1373 Jun, [facility] [place] [facility] [address] [id number] [place] [address]- 3117 Jun, [facility] [place] [facility] [address] [id number] [place] [address]- 3413 Jun, [facility] [place] [facility] [address] [id number] [place] [address]- 1005 Jun, [facility] [place] [facility] [address] [id number] [place] [address]- 9691 Jun, [facility] [place] [facility] [address] [id number] [place] [address]- 5606 May, [facility] [place] [facility] [address] [id number] [place] [address]- 4246 30 May, 2012 [facility] [address] [id number] [place] [address]- 7658 30 May, 2012 [facility] [place] [facility] [address] [id number] [place] [address]- 1255 30 May, 2012 [facility] [place] [facility] [address] [id number] [place] [address]- 7526 26 May, 2012 [facility] [place] [facility] [address] [id number] [place] [address]- 4094 24 May, 2012 [facility] [place] [facility] [address] [id number] [place] [address]- 0710 24 May, 2012 [facility] [place] [facility] [address] [id number] [place] [address]- 5219 22 May, 2012 [facility] [place] [facility] [address] [id number] [place] [address]- 8745 May, 2012 [facility] [place] [facility] [address] [id number] [place] [address]- 6708 21 May, 2012 [facility] [place] [facility] [address] [id number] [place] [address]- 3824 17 May, 2012 [facility] [place] [facility] [address] [id number] [place] [address]- 1628 16 May, 2012 [facility] [place] [facility] [address] [id number] [place] [address]- 8388 16 May, 2012 [facility] [place] [facility] [address] [id number] [place] [address]- 1429 16 May, 2012 [facility] [place] [facility] [address] [id number] [place] [address]- 7865 16 May, 2012 [facility] [place] [facility] [address] [id number] [place] [address]- 5522 24 Apr, 2012 [facility] [place] [facility] [address] [id number] [place] [address]- 8336 23 Apr, 2013 [facility] [place] [facility] [address] [id number] [place] [address]- 1739 Apr, [facility] [place] [facility] [address] [id number] [place] [address]- 3875 Mar, [facility] [place] [facility] [address] [id number] [place] [address]- 6246 Mar, [facility] [place] [facility] [address] [id number] [place] [address]- 8717 Mar, [facility] [place] [facility] [address] [id number] [place] [address]- 0773 Mar, [facility] [place] [facility] [address] [id number] [place] [address]- 1953 Mar, [facility] [place] [facility] [address] [id number] [place] [address]- 9146 Mar, [facility] [place] [facility] [address] [id number] [place] [address]- 4155 Feb, [facility] [place] [facility] [address] [id number] [place] [address]- 9649 Feb, [facility] [place] [facility] [address] [id number] [place] [address]- 1033 Feb, [facility] [place] [facility] [address] [id number] [place] [address]- 5721 Feb, [facility] [place] [facility] [address] [id number] [place] [address]- 7521 Feb, [facility] [place] [facility] [address] [id number] [place] [address]- 9530 Feb, [facility] [place] [facility] [address] [id number] [place] [address]- 1973 Feb, [facility] [place] [facility] [address] [id number] [place] [address]- 9667 Feb, [facility] [place] [facility] [address] [id number] [place] [address]- 6646 Feb, [facility] [address] [id number] [place] [address]- 8005 Feb, [facility] [place] [facility] [address] [id number] [place] [address]- 8313 Jan, [facility] [address] [id number] [place] [address]- 7570 Jan, [facility] [place] [facility] [address] [id number] [place] [address]- 8865 Jan, [facility] [address] [id number] [place] [address]- 2999 Jan, [facility] [address] [id number] [place] [address]- 6761 December, [facility] [address] [id number] [place] [address]- 1302 December, [facility] [place] [facility] [address] [id number] [place] [address]- 4813 December, [facility] [address] [id number] [place] [address]- 4512 Nov, [facility] [place] [facility] [address] [id number] [place] [address]- 8741 Nov, [facility] [place] [facility] [address] [id number] [place] [address]- 0265 Nov, [facility] [place] [facility] [address] [id number] [place] [address]- 9674 Nov, [facility] [place] [facility] [address] [id number] [place] [address]- 6666 Nov, [facility] [place] [facility] [address] [id number] [place] [address]- 3762 Nov, [facility] [place] [facility] [address] [id number] [place] [address]- 1239 Oct, [facility] [place] [facility] [address] [id number] [place] [address] 2544 Oct, [facility] [address] [id number] [place] [address]- 7399 Oct, [facility] [address] [id number] [place] [address]- 1846 Sep, [facility] [address] [id number] [place] [address] 2546 Sep, [facility] [address] [id number] [place] [address]- 2546 Sep, [facility] [address] [id number] [place] [address]- 1476 Aug, [facility] [address] [id number] [place] [address]- 6797 Aug, [facility] [address] [id number] [place] [address]- 2403 Aug, [facility] [address] [id number] [place] [address]- 5055 Aug, [facility] [address] [id number] [place] [address]- 1323 Jul, [facility] [address] [id number] [place] [address]- 5609 Jul, [facility] [address] [id number] [place] [address]- 2546 Jul, [facility] [address] [id number] [place] [address]- 2546 Jul, [facility] [place] [facility] [address] [id number] [place] [address]- 7566 Jun, [facility] [place] [facility] [address] [id number] [place] [address]- 2546 Jun, [facility] [address] [id number] [place] [address]- 0453 Jun, [facility] [place] [facility] [address] [id number] [place] [address]- 8248 Jun, [facility] [place] [facility] [address] [id number] [place] [address]- 6651 Jun, [facility] [place] [facility] [address] [id number] [place] [address]- 6274 Jun, [facility] [place] [facility] [address] [id number] [place] [address]- 8643 Jun, [facility] [place] [facility] [address] [id number] [place] [address]- 5738 Jun, [facility] [place] [facility] [address] [id number] [place] [address]- 7579 May, [facility] [place] [facility] [address] [id number] [place] [address]- 5887 30 May, 2012 [facility] [place] [facility] [address] [id number] [place] [address]- 2586 May, [facility] [place] [facility] [address] [id number] [place] [address]- 3654 18 May, 2012 [facility] [place] [facility] [address] [facility] [id number] [place] [address]- 8679 2012 [facility] [place] [facility] [address] [id number] [place] [address]- 1397 13 May, 2012 [facility] [place] [facility] [address] [id number] [place] [address]- 8211 11 May, 2012 [facility] [place] [facility] [address] [id number] [place] [address]- 3356 11 May, 2012 [facility] [place] [facility] [address] [id number] [place] [address]- 6336 10 May, 2012 [facility] [place] [facility] [address] [facility] [id number] [place] [address]- 2266 08 May, 2012 [facility] [place] [facility] [address] [id number] [place] [address]- 4793 24 Apr, 2011 [facility] [place] [facility] [address] [id number] [place] [address]- 0776 19 Apr, 2011 [facility] [place] [facility] [address] [id number] [place] [address]- 5536 18 Apr, 2012 [facility] [place] [facility] [address] [id number] [place] [address]- 4426 17 Apr, 2012 [facility] [place] [facility] [address] [id number] [place] [address]- 1336 16 Apr, 2012 [facility] [place] [facility] [address] [id number] [place] [address]- 9416 10 Apr, 2012 [facility] [place] [facility] [address] [id number] [place] [address]- 7529 29 Mar, 2012 [facility] [place] [facility] [address] [id number] [place] [address]- 2871 27 Mar, 2012 [facility] [place] [facility] [address] [id number] [place] [address]- 6869 23 Mar, 2012 [facility] [place] [facility] [address] [id number] [place] [address]- 2967 13 Mar, 2012 [facility] [place] [facility] [address] [id number] [place] [address]- 4685 Mar, [facility] [place] [facility] [address] [id number] [place] [address]- 3198 Mar, [facility] [place] [facility] [address] [id number] [place] [address]- 0410 27 Feb, 2012 [facility] [place] [facility] [address] [id number] [place] [address]- 6190 Feb, [facility] [place] [facility] [address] [id number] [place] [address]- 4654 18 Feb, 2012 [facility] [place] [facility] [address] [id number] [place] 9985 17 Feb, 2012 [facility] [place] [facility] [address] [id number] [place] [address] Feb, [facility] [place] [facility] [address] [id number] [place] [address] Feb, [facility] [place] [facility] [address] [id number] [place] [address] 27[address] Feb, [facility] [place] [facility] [address] [id number] [place] [address] Feb, [facility] [place] [facility] [address] [id number] [place] [address] Feb, [facility] [place] [facility] [address] [id number] [place] [address] 88[address] Jan, [facility] [place] [facility] [address] [id number] [place] [address] Jan, [facility] [place] [facility] [address] [id number] [place] [address]697 Jan, [facility] [place] [facility] [address] [id number] [place] [address] Jan, [facility] [place] [facility] [address] [id number] [place] [address] 8861 Jan, [facility] [place] [facility] [address] [id number] [place] [address] 8825 Jan, [facility] [place] [facility] [address] [id number] [place] [address]- 1030 Jan, [facility] [place] [facility] [address] [id number] [place] [address] Jan, [facility] [place] [facility] [address] [id number] [place] [address] 119[address] Jan, [facility] [place] [facility] [address] [id number] [place] [address] 96[address] December, [facility] [place] [facility] [address] [id number] [place] [address] 66[address] December, [facility] [address] [id number] [place] [address] 3920 December, [facility] [place] [facility] [address] [id number] [place] [address] 4003 December, [facility] [place] [facility] [address] [id number] [place] [address] December, [facility] [place] [facility] [address] [id number] [place] [address] 4383 December, [facility] [place] [facility] [address] [id number] [place] [address] 9239 December, [facility] [place] [facility] [address] [id number] [place] [address]781 December, [facility] [place] [facility] [address] [id number] [place] [address] 3032 December, [facility] [place] [facility] [address] [id number] [place] [address] 9310 December, [facility] [place] [facility] [address] [id number] [place] [address]- [address]85 30 Nov, 2011 [facility] [place] [facility] [address] [id number] [place] [address] 58[address] Nov, [facility] [place] [facility] [address] [id number] [place] [address] 4229 Nov, [facility] [place] [facility] [address] [id number] [place] [address] 7607 Nov, [facility] [place] [facility] [address] [id number] [place] [address] 2498 16 Nov, 2011 [facility] [place] [facility] [address] [id number] [place] [address] 2328 13 Nov, 2011 [facility] [place] [facility] [address] [id number] [place] [address] 8559 Nov, [facility] [place] [facility] [address] [id number] [place] [address] 7518 06 Nov, 2011 [facility] [address] [id number] [place] [address]26 05 Nov, 2011 [facility] [address] [id number] [place] [address]26 03 Nov, 2011 [facility] [address] [id number] [place] [address] 1006 30 Oct, 2011 [facility] [address] [id number] [place] [address] 1150 29 Oct, 2011 [facility] [address] [id number] [place] [address] 1810 23 Oct, 2011 [facility] [address] [id number] [place] [address] 5906 23 Oct, 2011 [facility] [address] [id number] [place] [address] 2510 21 Oct, 2011 [facility] [address] [id number] [place] [address] 9426 20 Oct, 2011 [facility] [address] [id number] [place] [address] 8629 19 Oct, 2011 [facility] [address] [id number] [place] [address] 9060 19 Oct, 2011 [facility] [address] [id number] [place] [address]- 7629 16 Oct, 2011 [facility] [address] [id number] [place] [address]- 0587 14 Oct, 2011 [facility] [place] [facility] [address] [id number] [place] [address]- 9508 14 Oct, 2011 [facility] [address] [id number] [place] [address] 4646 09 Oct, 2011 [facility] [address] [id number] [place] [address] 9753 08 Oct, 2011 [facility] [place] [facility] [address] [id number] [place] [address]- 5479 06 Oct, 2011 [facility] [place] [facility] [address] [id number] [place] [address] 1366 Oct, [facility] [place] [facility] [address] [id number] [place] [address] 2546 28 Sep, 2011 [facility] [place] [facility] [address] [id number] [place] [address] 2546 24 Sep, 2011 [facility] [place] [facility] [address] [id number] [place] [address] 3246 20 Sep, 2011 [facility] [place] [facility] [address] [id number] [place] [address] 2666 17 Sep, 2011 [facility] [place] [facility] [address] [id number] [place] [address]- 9296 16 Sep, 2011 [facility] [place] [facility] [address] [id number] [place] [address]- 4542 14 Sep, 2011 [facility] [place] [facility] [address] [id number] [place] [address] 1880 13 Sep, 2011 [facility] [place] [facility] [address] [id number] [place] [address]- 0045 10 Sep, 2011 [facility] [place] [facility] [address] [id number] [place] [address]- 0396 06 Sep, 2011 [facility] [place] [facility] [address] [id number] [place] [address] 2546 03 Sep, 2011 [facility] [place] [facility] [address] [id number] [place] [address] 2544 Sep, [facility] [place] [facility] [address] [id number] [place] [address]- 2630 Aug, [facility] [place] [facility] [address] [id number] [place] [address] 2546 Aug, [facility] [place] [facility] [address] [id number] [place] [address]- 6519 27 Aug, 2011 [facility] [address] [id number] [place] [address]- 9876 Aug, [facility] [address] [id number] [place] [address]- 7796 Aug, [facility] [address] [id number] [place] [address]- 8166 Aug, [facility] [address] [id number] [place] [address]- 0146 17 Aug, 2011 [facility] [address] [id number] [place] [address]- 0976 Aug, [facility] [address] [id number] [place] [address]- 7826 16 Aug, 2011 [facility] [facility] [address] [id number] [place] [address] Aug, [facility] [address] [id number] [place] [address] Aug, [facility] [address] [id number] [place] [address] Aug, [facility] [address] [id number] [place] [address] Aug, [facility] [address] [id number] [place] [address] Aug, [facility] [address] [id number] [place] [address] Aug, [facility] [address] [id number] [place] [address] Aug, [facility] [address] [id number] [place] [address] Aug, [facility] [address] [id number] [place] [address] Jul, [facility] [address] [facility] [id number] [place] [address] Jul, [facility] [address] [facility] [id number] [place] Jul, [facility] [address] [facility] [id number] [place] Jul, [facility] [address] [facility] [id number] [place] [address] Jul, [facility] [address] [facility] [id number] [place] [address] Jul, [facility] [address] [facility] [id number] [place] Jul, [facility] [id number] [place] [address] Jul, [facility] [id number] [place] [address] Jul, [facility] [address] [facility] [id number] [place] [address] Jul, [facility] [id number] [place] [address] Jul, [facility] [id number] [address] Jun, [facility] [address] [id number] [address] Jun, [facility] [address] [id number] [address] Jun, IMMUNIZATIONS No Known Immunizations SOCIAL HISTORY Never Assessed REASON FOR VISIT Controlled Med Refill 06/10/18 PLAN OF CARE VITAL SIGNS MEDICATIONS Medication Instructions Dosage Frequency Start Date End Date Duration Status Oxycodone HCl 5 MG Orally Once a day 1 tablet at bedtime 24h May, 28 days Active Ativan 0.5 MG Orally [...]
--- OUTSIDE RECORDS SUMMARY | 2018-08-05 03:08 | XMS REPORT ---
Author Author HEATHER FINE Organization [facility] [place] Address [address] [place] [address] Care Team Providers Care Vice President For Instruction Name Role Phone HEATHER FINE Unavailable PROBLEMS Type Condition ICD9-CM Code [id number] Code Onset Dates Condition Status SNOMED Code Problem Unspecified cirrhosis of liver K74.60 Active 044626196 Problem Lymphocytosis D72.820 Active 54397528 Problem Secondary esophageal varices with bleeding I85.11 Active 66616165 Problem Anxiety F41.9 Active 50758094 Problem Asthma J45.909 Active 678837100 Problem Chronic back pain M54.9 Active 079804598 Problem Dysthymia F34.1 Active 15690232 Problem Thrombocytosis D47.3 Active 9840205 Problem Splenomegaly R16.1 Active 64441533 Problem 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 Active 764411813 Problem History of hepatitis C Z86.19 Active [id number] ALLERGIES No Information ENCOUNTERS Encounter Location Date Diagnosis [place] [id number] [place] [address] 03871- 5079 Jul, [place] [address] [place] [id number] [place] [address] 64321- 7840 Jun, Anxiety F41.9 [facility] [place] [id number] [place] [address] 64401- 7048 Jun, [facility] [place] [id number] [place] [address] 63896- 2360 May, Anxiety F41.9 [place] [id number] [place] [address] 28296- 3248 16 May, 2018 Right arm pain M79.601 [place] [address] [place] [id number] [place] [address] 87106- 1555 May, Encounter for immunization Z23 [facility] [place] [address] [place] [id number] [place] [address] 11066- 1488 Apr, Anxiety F41.9 [facility] [place] [address] [place] [id number] [place] [address] 01654- 7546 Apr, [facility] [place] [address] [place] [id number] [place] [address] 03909- 1060 Mar, Anxiety F41.9 [facility] [place] [address] 07582- 0646 Mar, [facility] [place] [address] [place] [id number] [place] [address] 03981- 7317 Mar, Right arm pain M79.601 [facility] [place] [address] [place] [id number] [place] [address] 66825- 2615 Mar, Anxiety F41.9 [facility] [place] [address] [place] [id number] [place] [address] 14481- 1849 Feb, [facility] [place] [address] [place] [id number] [place] [address] 48774- 0752 Feb, Chronic back pain M54.9 ; Anxiety F41.9 and Dysuria R30.0 [facility] [place] [address] [place] [id number] [place] [address] 24098- 4780 Feb, [facility] [place] [address] [place] [id number] [place] [address] 86715- 4395 Feb, Anxiety F41.9 [facility] [place] [address] [place] [id number] [place] [address] 62126- 0541 Jan, [facility] [place] [address] [place] [id number] [place] [address] 08117- 3494 Jan, Chronic back pain M54.9 and Anxiety F41.9 [facility] [place] [address] [place] [id number] [place] [address] 98927- 0892 December, Chronic back pain M54.9 and Anxiety F41.9 [facility] [place] [address] [place] [id number] [place] [address] 16206- 0532 Nov, Chronic back pain M54.9 and Anxiety F41.9 [facility] [place] [address] [place] [id number] [place] [address] 92798- 6868 Oct, Chronic back pain M54.9 and Anxiety F41.9 [facility] [place] [address] [place] [id number] [place] [address] 10856- 4423 Oct, [facility] [place] [address] [place] [id number] [place] [address] 97949- 8517 Sep, Chronic back pain M54.9 ; Anxiety F41.9 ; Pain of left leg M79.605 and Pain in right leg M79.604 [facility] [place] [address] [place] [id number] [place] [address] 81927- 1358 Sep, Anxiety F41.9 and Chronic back pain M54.9 [facility] [place] [address] [place] [id number] [place] [address] 53414- 2033 Sep, [facility] [place] [address] [place] [id number] [place] [address] 26684- 0429 Aug, Anxiety F41.9 [facility] [place] [address] [place] [id number] [place] [address] 16332- 0507 Jul, Anxiety F41.9 [place] [address] [place] [id number] [place] [address] 66669- 1117 Jul, [facility] [place] [address] [place] [id number] [place] [address] 18382- 6305 Jul, Viral syndrome B34.9 ; Chronic back pain M54.9 and Dysuria R30.0 [facility] [place] [address] [place] [id number] [place] [address] 29043- 9005 Jun, [facility] [place] [address] [place] [id number] [place] [address] 06598- 0967 Jun, Anxiety F41.9 [facility] [address] [address] 16 Jun, 2017 Dysuria R30.0 and Acute cystitis without hematuria N30.00 [facility] [place] [address] [address]- 9848 Jun, [facility] [place] [id number] [place] [address] 34744- 3383 May, Anxiety F41.9 [facility] [place] [address] [place] [id number] [place] [address] 03785- 0520 May, Anxiety F41.9 [facility] [place] [address] [place] [id number] [place] [address] 60004- 2200 Apr, [facility] [place] [address] [place] [id number] [place] [address] 34026- 7866 Apr, Chronic back pain M54.9 and Anxiety F41.9 [facility] [place] [address] [place] [id number] [place] [address] 33147- 0089 Mar, [facility] [place] [address] [place] [id number] [place] [address] 98215- 9900 Mar, [facility] [place] [address] [place] [id number] [place] [address] 35435- 2020 Mar, Well woman exam Z01.419 ; Cervical cancer screening Z12.4 ; Breast cancer screening Z12.31 and Colon cancer screening Z12.11 [facility] [place] [address] [address]- 1757 Mar, Chronic back pain M54.9 and Anxiety F41.9 [facility] [place] [address] [address]- 6267 Mar, [facility] [place] [id number] [place] [address] 92786- 6638 Feb, Chronic back pain M54.9 and Anxiety F41.9 [facility] [place] [address] [place] [id number] [place] [address] 77523- 8456 Feb, [facility] [place] [address] [address]- 3394 Feb, [facility] [place] [address] [place] [id number] [place] [address] 68593- 0307 Jan, Chronic back pain M54.9 and Anxiety F41.9 [facility] [place] [address] [place] [id number] [place] [address] 02494- 2428 Jan, [facility] [place] [address] [place] [id number] [place] [address] 52731- 9949 Jan, [facility] [place] [address] [place] [id number] [place] [address] 48768- 2800 December, Chronic back pain M54.9 and Anxiety F41.9 [facility] [place] [address] [place] [id number] [place] [address] 71935- 5908 Nov, Chronic back pain M54.9 and Anxiety F41.9 [facility] [place] [address] [place] [id number] [place] [address] 90354- 8527 Oct, Chronic back pain M54.9 and Anxiety F41.9 [facility] [place] [address] [place] [id number] [place] [address] 90925- 6069 Oct, Chronic back pain M54.9 [facility] [place] [id number] [place] [address] 02582- 6952 Sep, Anxiety F41.9 and Chronic back pain M54.9 [facility] [place] [id number] [place] [address] 93602- 0447 Aug, Anxiety F41.9 and Chronic back pain M54.9 [facility] [place] [address] [place] [id number] [place] [address] 85422- 7782 Aug, [facility] [place] [address] [place] [id number] [place] [address] 10948- 8147 Jul, Chronic back pain M54.9 and Anxiety F41.9 [facility] [place] [address] [place] [id number] [place] [address] 99326- 1442 Jul, Anxiety F41.9 and Chronic back pain M54.9 [facility] [address] [place] [address] Jul, [facility] [place] [address] [place] [id number] [place] [address] 70306- 9553 Jul, Anxiety F41.9 [facility] [place] [address] [place] [id number] [place] [address] 02219- 3167 Jul, Anxiety F41.9 and Dysuria R30.0 [facility] [place] [address] [place] [id number] [place] [address] 83548- 3227 Jul, Chronic back pain M54.9 and Anxiety F41.9 [facility] [place] [address] [place] [id number] [place] [address] 55705- 2619 Jun, Chronic back pain M54.9 [facility] [place] [address] [place] [id number] [place] [address] 86839- 6194 Jun, Chronic back pain M54.9 [facility] [place] [address] [place] [id number] [place] [address] 47782- 0055 May, Anxiety F41.9 [facility] [place] [address] [place] [id number] [place] [address] 45710- 3410 May, Chronic back pain M54.9 [facility] [place] [address] [place] [id number] [place] [address] 17481- 6548 Apr, [facility] [place] [address] [place] [id number] [place] [address] 21116 2549 Apr, [facility] [place] [address] [place] [id number] [place] [address] 79518- 6169 Apr, [facility] [place] [address] [place] [id number] [place] [address] 09889- 2329 Apr, Chronic back pain M54.9 [facility] [place] [address] [place] [id number] [place] [address] 85964- 8552 Mar, Chronic back pain M54.9 [facility] [place] [address] [place] [id number] [place] [address] 31670- 0401 Feb, Grief F43.20 [facility] [place] [address] [place] [id number] [place] [address] 52792- 5902 Feb, Chronic back pain M54.9 and Anxiety F41.9 [facility] [place] [address] [place] [id number] [place] [address] 26738- 0980 Feb, Chronic back pain M54.9 [facility] [place] [address] [place] [id number] [place] [address] 00656- 9700 Jan, Chronic back pain M54.9 [facility] [place] [address] [place] [id number] [place] [address] 43676- 3573 December, [facility] [place] [address] [place] [id number] [place] [address] 54438- 4620 December, Grief F43.20 [facility] [place] [address] [place] [id number] [place] [address] 17910- 0395 Nov, [facility] [place] [address] [place] [id number] [place] [address] 09178- 9584 Oct, Cervicalgia M54.2 ; Secondary esophageal varices with bleeding I85.11 and Mouth pain K13.79 [facility] [place] [address] [place] [id number] [place] [address] 42996- 1583 Oct, [facility] [place] [address] [place] [id number] [place] [address] 08839- 0058 14 Oct, 2015 [facility] [place] [address] [place] [id number] [place] [address] 99248- 6766 Sep, [facility] [place] [address] [place] [id number] [place] [address] 64461- 4918 Sep, Acute maxillary sinusitis, recurrence not specified J01.00 [facility] [place] [address] [place] [id number] [place] [address] 07427- 5036 Aug, [facility] [place] [address] [address]- 8264 Aug, [facility] [place] [address] [place] [id number] [place] [address] 47729- 8532 Aug, Dysuria R30.0 and Chronic back pain M54.9 [facility] [place] [address] [place] [id number] [place] [address] 32311- 0634 Jul, [facility] [place] [address] [place] [id number] [place] [address] 29182- 2097 Jul, [facility] [place] [address] [place] [id number] [place] [address] 03598- 9416 Jul, [facility] [place] [address] [place] [id number] [place] [address] 61733- 0279 Jul, Chronic back pain M54.9 [facility] [place] [address] [place] [id number] [place] [address] 54766- 6687 Jul, Dysthymia F34.1 and Chronic back pain M54.9 [facility] [place] [address] [place] [id number] [place] [address] 91575- 3384 Jun, [facility] [place] [address] [place] [id number] [place] [address] 84599- 2976 Jun, [facility] [place] [id number] [place] [address] 00002- 1668 May, [facility] [place] [address] [place] [id number] [place] [address] 31124- 7821 May, [facility] [place] [id number] [place] [address] 30319- 8763 May, [facility] [place] [address] [place] [id number] [place] [address] 748945- 2043 May, Encounter for immunization Z23 [facility] [place] [address] [place] [id number] [place] [address] 75680- 5018 15 Apr, 2015 [facility] [place] [address] [id number] [place] [address]- 6918 10 Apr, 2015 [facility] [address] [id number] [place] [address]- 6465 Mar, [facility] [place] [facility] [address] [facility] [id number] [place] [address]- 9278 Mar, Back pain 724.5 [facility] [address] [id number] [place] [address]- 4629 Mar, Cough 786.2 and Back pain 724.5 [facility] [address] [id number] [place] [address]- 2345 Mar, [facility] [place] [facility] [address] [facility] [id number] [place] [address]- 4395 Mar, [facility] [address] [place] [address]- 3386 December, [facility] [place] [facility] [address] [facility] [id number] [place] [address]- 3519 December, [facility] [place] [facility] [address] [facility] [id number] [place] [address]- 4477 Nov, [facility] [place] [facility] [address] [facility] [id number] [place] [address]- 6963 Nov, [facility] [place] [facility] [address] [place] [id number] [place] [address]- 3170 Oct, [facility] [place] [facility] [address] [facility] [id number] [place] [address]- 8740 Oct, [facility] [place] [facility] [address] [id number] [place] [address]- 6949 Sep, [facility] [place] [facility] [address] [facility] [id number] [place] [address]- 9955 Sep, [facility] [place] [facility] [address] [facility] [id number] [place] [address]- 3735 Sep, [facility] [place] [facility] [address] [id number] [place] [address]- 2674 10 Sep, 2014 [facility] [place] [facility] [address] [id number] [place] [address]- 4134 Sep, 2014 [facility] [place] [facility] [address] [id number] [place] [address]- 7139 Sep, 2014 [facility] [place] [facility] [address] [id number] [place] [address]- 5596 Sep, 2014 [facility] [place] [facility] [address] [id number] [place] [address]- 1631 Sep, [facility] [place] [facility] [address] [id number] [place] [address]- 3092 Aug, [facility] [place] [facility] [address] [id number] [place] [address]- 4967 Aug, [facility] [place] [facility] [address] [id number] [place] [address]- 9670 Aug, [facility] [place] [facility] [address] [id number] [place] [address]- 2941 Aug, [facility] [place] [facility] [address] [id number] [place] [address]- 3501 Aug, [facility] [place] [facility] [address] [id number] [place] [address]- 3467 Aug, [facility] [place] [facility] [address] [id number] [place] [address]- 8374 Aug, [facility] [place] [facility] [address] [id number] [place] [address]- 1524 Jul, [facility] [place] [facility] [address] [id number] [place] [address]- 0389 Jul, [facility] [place] [facility] [address] [id number] [place] [address]- 7772 Jul, [facility] [place] [facility] [address] [id number] [place] [address]- 3245 Jul, [facility] [place] [facility] [address] [id number] [place] [address]- 7601 Jul, [facility] [place] [facility] [address] [id number] [place] 5769 Jul, [facility] [place] [facility] [address] [id number] [place] [address]- 1243 Jul, [facility] [place] [facility] [address] [id number] [place] [address]- 5998 Jul, [facility] [place] [facility] [address] [id number] [place] [address]- 3378 Jun, [facility] [place] [facility] [address] [id number] [place] [address]- 0067 Jun, [facility] [place] [facility] [address] [id number] [place] [address]- 2934 Jun, [facility] [place] [facility] [address] [id number] [place] [address]- 1469 Jun, [facility] [place] [facility] [address] [id number] [place] [address]- 2977 Jun, [facility] [place] [facility] [address] [id number] [place] [address] Jun, [facility] [place] [facility] [address] [id number] [place] [address] Jun, [facility] [place] [facility] [address] [id number] [place] [address] May, [facility] [place] [facility] [address] [id number] [place] [address] May, [facility] [place] [facility] [address] [id number] [place] [address] May, [facility] [place] [facility] [address] [id number] [place] [address] May, [facility] [place] [facility] [address] [id number] [place] [address] 2014 [facility] [place] [facility] [address] [id number] [place] [address] 2014 [facility] [place] [facility] [address] [id number] [place] [address]- [address] 2014 [facility] [place] [facility] [address] [id number] [place] [address] 2014 [facility] [place] [facility] [address] [id number] [place] [address] 13 May, 2014 [facility] [place] [facility] [address] [id number] [place] [address]- [address] 13 May, 2014 [facility] [place] [facility] [address] [id number] [place] [address]- [address]479 10 May, 2014 [facility] [place] [facility] [address] [id number] [place] [address]- [address]20 10 May, 2014 [facility] [place] [facility] [address] [id number] [place] [address]- 49[address] 08 May, 2014 [facility] [place] [facility] [address] [id number] [place] [address]- [address] 08 May, 2014 [facility] [place] [facility] [address] [id number] [place] [address]- [address] 26 Apr, 2013 [facility] [place] [facility] [address] [id number] [place] [address] 1989 23 Apr, 2013 [facility] [place] [facility] [address] [id number] [place] [address]- [address] 23 Apr, 2013 [facility] [place] [facility] [address] [id number] [place] [address]- 117[address] 23 Apr, 2013 [facility] [place] [facility] [address] [id number] [place] [address]- [address]396 23 Apr, 2013 [facility] [place] [facility] [address] [id number] [place] [address]- 2714 Apr, [facility] [place] [facility] [address] [id number] [place] [address]- [address] Apr, [facility] [place] [facility] [address] [id number] [place] [address] Mar, [facility] [place] [facility] [address] [id number] [place] [address]- [address] Mar, [facility] [place] [facility] [address] [id number] [place] [address]- [address] Mar, [facility] [place] [facility] [address] [id number] [place] [address]- [address] Mar, [facility] [place] [facility] [address] [id number] [place] [address]- [address]141 Mar, [facility] [place] [facility] [address] [id number] [place] [address]- 8985 Mar, [facility] [place] [facility] [address] [id number] [place] [address]- [address] Feb, [facility] [place] [facility] [address] [id number] [place] [address]- [address]137 Feb, [facility] [place] [facility] [address] [id number] [place] [address]- [address] Feb, [facility] [place] [facility] [address] [id number] [place] [address]- [address]267 Feb, [facility] [place] [facility] [address] [id number] [place] [address]- [address]93 Feb, [facility] [place] [facility] [address] [id number] [place] [address]- 1555 Feb, [facility] [place] [facility] [address] [id number] [place] [address]- 73[address] Feb, [facility] [place] [facility] [address] [id number] [place] [address]- 59[address] Feb, [facility] [place] [facility] [address] [id number] [place] [address]- [address] Jan, [facility] [address] [id number] [place] [address]- [address] Jan, [facility] [place] [facility] [address] [id number] [place] [address]- [address] December, [facility] [place] [facility] [address] [id number] [place] [address]- [address] December, [facility] [place] [facility] [address] [id number] [place] [address]- 6187 December, [facility] [place] [facility] [address] [id number] [place] [address] [address] December, [facility] [place] [facility] [address] [id number] [place] [address]- [address] December, [facility] [address] [id number] [place] [address]- [address] December, [facility] [place] [facility] [address] [id number] [place] [address]- [address]166 December, [facility] [place] [facility] [address] [id number] [place] [address]- 119[address] December, [facility] [place] [facility] [address] [id number] [place] [address]- 8631 December, [facility] [place] [facility] [address] [id number] [place] [address]- 6[address] December, [facility] [place] [facility] [address] [id number] [place] [address]- 1858 December, [facility] [place] [facility] [address] [id number] [place] [address]- [address] December, [facility] [place] [facility] [address] [id number] [place] [address] Nov, [facility] [place] [facility] [address] [id number] [place] [address] 5[address] Nov, [facility] [place] [facility] [address] [id number] [place] [address] 8[address] Nov, [facility] [place] [facility] [address] [id number] [place] [address]- 1436 Nov, [facility] [place] [facility] [address] [id number] [place] [address]- 6658 Nov, [facility] [place] [facility] [address] [id number] [place] [address]- 3211 Nov, [facility] [place] [facility] [address] [id number] [place] [address]- 3246 Nov, [facility] [place] [facility] [address] [id number] [place] [address]- 0158 Nov, [facility] [place] [facility] [address] [id number] [place] [address]- 4634 Nov, [facility] [place] [facility] [address] [id number] [place] [address]- 3119 Nov, [facility] [place] [facility] [address] [id number] [place] [address]- 9728 Nov, [facility] [place] [facility] [address] [id number] [place] [address]- 5076 Nov, [facility] [place] [facility] [address] [id number] [place] [address]- 5283 Nov, [facility] [place] [facility] [address] [id number] [place] [address]- 9375 Oct, [facility] [place] [facility] [address] [id number] [place] [address]- 2144 Oct, [facility] [place] [facility] [address] [id number] [place] [address]- 3551 Sep, [facility] [place] [facility] [address] [id number] [place] [address]- 4608 Sep, [facility] [place] [facility] [address] [id number] [place] [address]- 2318 Sep, [facility] [place] [facility] [address] [id number] [place] [address]- 7037 Sep, [facility] [place] [facility] [address] [id number] [place] [address]- 5926 Sep, [facility] [place] [facility] [address] [facility] [id number] [place] [address]- 9296 Sep, [facility] [place] [facility] [address] [id number] [place] [address]- 9710 Sep, [facility] [place] [facility] [address] [id number] [place] [address]- 5914 Sep, [facility] [place] [facility] [address] [id number] [place] [address]- 9135 Sep, [facility] [place] [facility] [address] [facility] [id number] [place] [address]- 5068 Sep, [facility] [place] [facility] [address] [facility] [id number] [place] [address]- 1275 Sep, [facility] [place] [facility] [address] [facility] [id number] [place] [address]- 8144 Sep, [facility] [place] [facility] [address] [facility] [id number] [place] [address]- 8383 Aug, [facility] [place] [facility] [address] [facility] [id number] [place] [address]- 5069 Aug, [facility] [place] [facility] [address] [facility] [id number] [place] [address]- 9610 Aug, [facility] [place] [facility] [address] [id number] [place] [address]- 6838 Aug, [facility] [place] [facility] [address] [facility] [id number] [place] [address]- 5916 Aug, [facility] [place] [facility] [address] [facility] [id number] [place] [address]- 4863 Aug, [facility] [place] [facility] [address] [id number] [place] [address]- 4942 Aug, [facility] [place] [facility] [address] [id number] [place] [address]- 0048 Aug, [facility] [place] [facility] [address] [id number] [place] [address]- 4457 Aug, [facility] [place] [facility] [address] [id number] [place] [address]- 1429 Aug, [facility] [address] [id number] [place] [address]- 9418 Aug, [facility] [place] [facility] [address] [id number] [place] [address]- 4799 Aug, [facility] [address] [id number] [place] [address]- 0937 Aug, [facility] [address] [id number] [place] [address]- 3407 Aug, [facility] [place] [facility] [address] [id number] [place] [address]- 2191 Aug, [facility] [place] [facility] [address] [id number] [place] [address]- 2421 Aug, [facility] [place] [facility] [address] [id number] [place] [address]- 8798 Aug, [facility] [place] [facility] [address] [id number] [place] [address]- 2716 Aug, [facility] [place] [facility] [address] [id number] [place] [address]- 4728 Aug, [facility] [place] [facility] [address] [id number] [place] [address]- 3204 Aug, [facility] [place] [facility] [address] [id number] [place] [address]- 5153 Aug, [facility] [place] [facility] [address] [id number] [place] [address]- 7886 Aug, [facility] [address] [id number] [place] [address]- 8139 Aug, [facility] [place] [facility] [address] [id number] [place] [address] Jul, [facility] [place] [facility] [address] [id number] [place] [address]- 3166 Jul, [facility] [place] [facility] [address] [id number] [place] [address]- 6016 Jul, [facility] [place] [facility] [address] [id number] [place] [address]- 3826 Jul, [facility] [place] [facility] [address] [id number] [place] [address]- 6473 Jul, [facility] [place] [facility] [address] [id number] [place] [address]- 2340 Jul, [facility] [place] [facility] [address] [id number] [place] [address]- 2064 Jun, [facility] [place] [facility] [address] [id number] [place] [address]- 0760 Jun, [facility] [place] [facility] [address] [id number] [place] [address]- 3823 Jun, [facility] [place] [facility] [address] [id number] [place] [address]- 5741 Jun, [facility] [place] [facility] [address] [id number] [place] [address]- 6104 Jun, [facility] [place] [facility] [address] [id number] [place] [address]- 9009 Jun, [facility] [place] [facility] [address] [id number] [place] [address]- 6699 Jun, [facility] [place] [facility] [address] [id number] [place] [address]- 0467 Jun, [facility] [place] [facility] [address] [id number] [place] [address]- 9486 Jun, 2012 [facility] [place] [facility] [address] [id number] [place] [address]- 4813 Jun, [facility] [place] [facility] [address] [id number] [place] [address]- 0757 May, 2012 [facility] [place] [facility] [address] [id number] [place] [address]- 7601 May, 2012 [facility] [place] [facility] [address] [id number] [place] [address]- 5349 May, 2012 [facility] [place] [facility] [address] [id number] [place] [address]- 0558 May, 2012 [facility] [place] [facility] [address] [id number] [place] [address]- 0657 May, 2012 [facility] [place] [facility] [address] [id number] [place] [address]- 7309 May, [facility] [place] [facility] [address] [id number] [place] [address]- 1517 24 May, 2013 [facility] [place] [facility] [address] [id number] [place] [address]- 8586 May, [facility] [place] [facility] [address] [id number] [place] [address]- 3260 May, [facility] [place] [facility] [address] [id number] [place] [address]- 0488 May, 2012 [facility] [place] [facility] [address] [id number] [place] [address]- 2394 17 May, 2012 [facility] [place] [facility] [address] [id number] [place] [address]- 0996 16 May, 2012 [facility] [place] [facility] [address] [id number] [place] [address]- 3168 16 May, 2012 [facility] [place] [facility] [address] [id number] [place] [address]- 7269 May, [facility] [place] [facility] [address] [id number] [place] [address]- 8160 May, [facility] [place] [facility] [address] [id number] [place] [address]- 5406 Apr, [facility] [place] [facility] [address] [id number] [place] [address]- 6653 Apr, [facility] [place] [facility] [address] [id number] [place] [address]- 4349 Apr, [facility] [place] [facility] [address] [id number] [place] [address]- 8262 Mar, [facility] [place] [facility] [address] [id number] [place] [address]- 1385 Mar, [facility] [place] [facility] [address] [id number] [place] [address]- 6481 Mar, [facility] [place] [facility] [address] [id number] [place] [address]- 4303 Mar, [facility] [place] [facility] [address] [id number] [place] [address]- 8249 Mar, [facility] [place] [facility] [address] [id number] [place] [address]- 4080 Mar, [facility] [place] [facility] [address] [id number] [place] [address]- 5043 Feb, [facility] [place] [facility] [address] [id number] [place] [address]- 1612 Feb, [facility] [place] [facility] [address] [id number] [place] [address]- 5412 Feb, [facility] [place] [facility] [address] [id number] [place] [address]- 8384 Feb, [facility] [place] [facility] [address] [id number] [place] [address]- 7378 Feb, [facility] [place] [facility] [address] [id number] [place] [address]- 0805 Feb, [facility] [address] [id number] [place] [address]- 4861 Feb, [facility] [place] [facility] [address] [id number] [place] [address]- 6620 Feb, [facility] [address] [id number] [place] [address]- 4705 Feb, [facility] [address] [id number] [place] [address]- 0970 Feb, [facility] [address] [id number] [place] [address]- 3550 Jan, [facility] [address] [id number] [place] [address]- 5546 Jan, [facility] [address] [id number] [place] [address]- 3019 Jan, [facility] [address] [id number] [place] [address]- 4589 Jan, [facility] [address] [id number] [place] [address]- 9669 December, [facility] [address] [id number] [place] [address]- 2233 December, [facility] [address] [id number] [place] [address]- 8162 December, [facility] [place] [facility] [address] [id number] [place] [address]- 2526 Nov, [facility] [place] [facility] [address] [id number] [place] [address]- 7801 Nov, [facility] [place] [facility] [address] [id number] [place] [address]- 1248 Nov, [facility] [place] [facility] [address] [id number] [place] [address]- 1789 Nov, [facility] [place] [facility] [address] [id number] [place] [address]- 2896 Nov, [facility] [place] [facility] [address] [id number] [place] [address]- 5949 Nov, [facility] [place] [facility] [address] [id number] [place] [address]- 7820 Oct, [facility] [place] [facility] [address] [id number] [place] [address]- 9983 Oct, [facility] [place] [facility] [address] [id number] [place] [address]- 0084 Oct, [facility] [place] [facility] [address] [id number] [place] [address]- 7314 Sep, [facility] [place] [facility] [address] [id number] [place] [address]- 3153 Sep, [facility] [place] [facility] [address] [id number] [place] [address]- 9050 Sep, [facility] [place] [facility] [address] [id number] [place] [address]- 6019 Aug, [facility] [place] [facility] [address] [id number] [place] [address]- 6435 Aug, [facility] [place] [facility] [address] [id number] [place] [address]- 6245 Aug, [facility] [place] [facility] [address] [id number] [place] [address]- 4021 Aug, [facility] [place] [facility] [address] [id number] [place] [address]- 5102 Jul, [facility] [place] [facility] [address] [id number] [place] [address]- 0284 Jul, [facility] [place] [facility] [address] [id number] [place] [address]- 8736 Jul, [facility] [place] [facility] [address] [id number] [place] [address]- 5636 Jul, [facility] [place] [facility] [address] [id number] [place] [address]- 5780 Jun, [facility] [place] [facility] [address] [id number] [place] [address]013 Jun, [facility] [place] [facility] [address] [facility] [id number] [place] [address]- 0755 Jun, [facility] [place] [facility] [address] [id number] [place] [address]596 Jun, [facility] [place] [facility] [address] [id number] [place] [address]- 3545 Jun, [facility] [place] [facility] [address] [facility] [id number] [place] [address]- 4854 Jun, [facility] [place] [facility] [address] [facility] [id number] [place] [address]- 6992 Jun, [facility] [place] [facility] [address] [id number] [place] [address]- 1767 Jun, [facility] [place] [facility] [address] [id number] [place] [address]- 9551 May, [facility] [place] [facility] [address] [id number] [place] [address]- 9362 30 May, 2012 [facility] [place] [facility] [address] [id number] [place] [address]- 8298 18 May, 2012 [facility] [place] [facility] [address] [id number] [place] [address]- 3564 18 May, 2012 [facility] [place] [facility] [address] [id number] [address]- 9354 2012 [facility] [place] [facility] [address] [facility] [id number] [place] [address]- 7025 13 May, 2012 [facility] [place] [facility] [address] [facility] [id number] [place] [address]- 2148 11 May, 2012 [facility] [place] [facility] [address] [id number] [place] [address]- 7351 11 May, 2012 [facility] [address] [id number] [place] [address]- 3513 10 May, 2012 [facility] [place] [facility] [address] [id number] [place] [address]- 6456 08 May, 2012 [facility] [place] [facility] [address] [id number] [place] [address]- 8521 24 Apr, 2012 [facility] [place] [facility] [address] [id number] [place] [address]- 8279 19 Apr, 2012 [facility] [place] [facility] [address] [id number] [place] [address]- 9490 18 Apr, 2012 [facility] [place] [facility] [address] [id number] [place] [address]- 7247 17 Apr, 2012 [facility] [place] [facility] [address] [id number] [place] [address]- 9435 16 Apr, 2012 [facility] [place] [facility] [address] [id number] [place] [address]- 7557 10 Apr, 2012 [facility] [place] [facility] [address] [id number] [place] [address]- 9870 29 Mar, 2012 [facility] [place] [facility] [address] [id number] [place] [address]- 9381 Mar, [facility] [place] [facility] [address] [id number] [place] [address]- 2549 Mar, [facility] [place] [facility] [address] [id number] [place] [address]- 4323 13 Mar, 2012 [facility] [place] [facility] [address] [id number] [place] [address]- 4402 Mar, [facility] [place] [facility] [address] [id number] [place] [address]- 2864 Mar, [facility] [place] [facility] [address] [id number] [place] [address]- 5248 27 Feb, 2012 [facility] [place] [facility] [address] [id number] [place] [address]- 0995 19 Feb, 2011 [facility] [place] [facility] [address] [id number] [place] [address]- 5836 18 Feb, 2012 [facility] [place] [facility] [address] [id number] [place] [address]- 7581 17 Feb, 2012 [facility] [place] [facility] [address] [id number] [place] [address]- 8086 13 Feb, 2012 [facility] [place] [facility] [address] [id number] [place] [address]- 0198 Feb, [facility] [place] [facility] [address] [id number] [place] [address]- 3016 Feb, [facility] [place] [facility] [address] [id number] [place] [address]- 9207 Feb, [facility] [place] [facility] [address] [id number] [place] [address]- 3794 Feb, [facility] [place] [facility] [address] [id number] [place] [address]- 2424 Jan, [facility] [place] [facility] [address] [id number] [place] [address]- 5291 Jan, [facility] [place] [facility] [address] [id number] [place] [address]- 9488 Jan, [facility] [place] [facility] [address] [id number] [place] [address]- 8117 Jan, [facility] [place] [facility] [address] [id number] [place] [address]- 5469 15 Jan, 2012 [facility] [place] [facility] [address] [id number] [place] [address]- 6677 Jan, [facility] [place] [facility] [address] [id number] [place] [address]- 8790 08 Jan, 2012 [facility] [place] [facility] [address] [id number] [place] [address]- 4325 Jan, [facility] [address] [id number] [place] [address]- 6828 Jan, [facility] [place] [facility] [address] [id number] [place] [address]- 9182 December, [facility] [address] [id number] [place] [address]- 0514 December, [facility] [address] [id number] [place] [address]- 2137 December, [facility] [address] [id number] [place] [address]- 3041 December, [facility] [address] [id number] [place] [address]- 6712 December, [facility] [address] [id number] [place] [address]- 1989 December, [facility] [address] [id number] [place] [address]- 1822 December, [facility] [address] [id number] [place] [address]- 2329 December, [facility] [address] [id number] [place] [address]- 1191 December, [facility] [address] [id number] [place] [address]- 6906 December, [facility] [place] [facility] [address] [id number] [place] [address]- 8379 Nov, [facility] [place] [facility] [address] [id number] [place] [address]- 9260 Nov, [facility] [place] [facility] [address] [id number] [place] [address]- 6441 Nov, [facility] [place] [facility] [address] [id number] [place] [address]- 9866 Nov, [facility] [place] [facility] [address] [id number] [place] [address]- 3306 16 Nov, 2011 [facility] [place] [facility] [address] [id number] [place] [address]- 6876 13 Nov, 2011 [facility] [place] [facility] [address] [id number] [place] [address]- 2546 09 Nov, 2011 [facility] [place] [facility] [address] [id number] [place] [address]- 2936 06 Nov, 2011 [facility] [place] [facility] [address] [id number] [place] [address] 05 Nov, 2011 [facility] [place] [facility] [address] [id number] [place] [address] 77[address] 03 Nov, 2011 [facility] [place] [facility] [address] [id number] [place] [address] 30 Oct, 2011 [facility] [place] [facility] [address] [id number] [place] [address] 3482 29 Oct, 2011 [facility] [place] [facility] [address] [id number] [place] [address] 60[address] 23 Oct, 2011 [facility] [place] [facility] [address] [id number] [place] [address] 9490 23 Oct, 2011 [facility] [place] [facility] [address] [id number] [place] [address] 1642 21 Oct, 2011 [facility] [place] [facility] [address] [id number] [place] [address] 2476 20 Oct, 2011 [facility] [place] [facility] [address] [id number] [place] [address] 9894 19 Oct, 2011 [facility] [place] [facility] [address] [id number] [place] [address] 4996 19 Oct, 2011 [facility] [place] [facility] [address] [id number] [place] [address]- 2546 16 Oct, 2011 [facility] [place] [facility] [address] [id number] [place] [address]- 5682 14 Oct, 2011 [facility] [place] [facility] [address] [id number] [place] [address] 7436 14 Oct, 2011 [facility] [place] [facility] [address] [id number] [place] [address]- 6836 09 Oct, 2011 [facility] [place] [facility] [address] [id number] [place] [address]- 7557 08 Oct, 2011 [facility] [place] [facility] [address] [id number] [place] [address]- 2737 06 Oct, 2011 [facility] [place] [facility] [address] [id number] [place] [address]- 1708 02 Oct, 2011 [facility] [place] [facility] [address] [id number] [place] [address]- 9972 28 Sep, 2011 [facility] [place] [facility] [address] [id number] [place] [address]- 2315 24 Sep, 2011 [facility] [place] [facility] [address] [id number] [place] [address] 8343 20 Sep, 2011 [facility] [place] [facility] [address] [id number] [place] [address]- 6883 17 Sep, 2011 [facility] [place] [facility] [address] [facility] [id number] [place] [address]- 1441 16 Sep, 2011 [facility] [place] [facility] [address] [id number] [place] [address]- 5931 14 Sep, 2011 [facility] [place] [facility] [address] [id number] [place] [address]- 6976 13 Sep, 2011 [facility] [place] [facility] [address] [id number] [place] [address]- 7505 10 Sep, 2011 [facility] [place] [facility] [address] [id number] [place] [address]- 9922 06 Sep, 2011 [facility] [place] [facility] [address] [facility] [id number] [place] [address]- 5568 03 Sep, 2011 [facility] [place] [facility] [address] [id number] [place] [address] 2283 Sep, [facility] [address] [id number] [place] [address] 6036 Aug, [facility] [place] [facility] [address] [id number] [place] [address] 555[address] Aug, [facility] [place] [facility] [address] [id number] [place] [address] 0207 Aug, [facility] [place] [facility] [address] [id number] [place] [address] 4866 Aug, [facility] [place] [facility] [address] [id number] [place] [address] 4[address] Aug, [facility] [address] [id number] [place] [address]262 Aug, [facility] [address] [id number] [place] [address]- 6541 Aug, [facility] [address] [id number] [place] [address]- 1505 17 Aug, 2011 [facility] [place] [facility] [address] [id number] [place] [address]- 7059 16 Aug, 2011 [facility] [place] [facility] [address] [id number] [place] [address] 9138 Aug, [facility] [place] [facility] [address] [id number] [place] [address]- 7095 Aug, [facility] [place] [facility] [address] [id number] [place] [address] 6700 Aug, [facility] [place] [facility] [address] [id number] [place] [address] 1385 Aug, [facility] [place] [facility] [address] [id number] [place] [address] 3179 Aug, [facility] [place] [facility] [address] [id number] [place] [address] 6695 Aug, [facility] [place] [facility] [address] [id number] [place] [address] 6514 Aug, [facility] [place] [facility] [address] [id number] [place] [address] 8326 Aug, [facility] [place] [facility] [address] [id number] [place] [address]- 3347 30 Jul, 2011 [facility] [place] [facility] [address] [id number] [place] [address]- 2429 Jul, [facility] [place] [facility] [address] [id number] [place] [address] 9554 Jul, [facility] [place] [facility] [address] [id number] [place] [address]- 7826 Jul, [facility] [place] [facility] [address] [id number] [place] [address]- 9967 Jul, [facility] [place] [facility] [address] [id number] [place] [address] 0059 Jul, [facility] [place] [facility] [address] [id number] [place] [address]- 5361 17 Jul, 2011 [facility] [place] [facility] [address] [id number] [place] [address]- 8547 16 Jul, 2011 [facility] [place] [facility] [address] [id number] [place] [address]- 2761 07 Jul, 2011 [facility] [place] [facility] [address] [id number] [place] [address]- 0465 07 Jul, 2011 [facility] [place] [facility] [address] [id number] [place] [address]- 0618 06 Jul, 2011 [facility] [place] [facility] [address] [id number] [place] [address]- 6690 18 Jun, 2011 [facility] [place] [facility] [address] [id number] [place] [address]- 2549 Jun, [facility] [place] [facility] [address] [facility] [id number] [place] [address] Jun, IMMUNIZATIONS No Known Immunizations SOCIAL HISTORY Never Assessed REASON FOR VISIT Controlled Med Refill 07/08 PLAN OF CARE VITAL SIGNS MEDICATIONS Medication Instructions Dosage Frequency Start Date End Date Duration Status Ativan 0.5 MG Orally Once a day 1 tablet as needed 24h December, 28 days Active Oxycodone HCl 5 MG Orally Once a day 1 tablet at bedtime 24h Jun, 28 days Active RESULTS No Results PROCEDURES No Known procedures INSTRUCTIONS MEDICATIONS ADMINISTERED No Known Medications MEDICAL (GENERAL) HISTORY Type Description Date Medical History Asthma Medical History Anxiety Medical History Chronic pain Medical History Thrombocytenpia Medical History Unspecified cirrhosis of liver Liver US 2018 Homogenous Surgical History EGD-check veins if had in bleeding per Dr. Lucille chambers 2 Surgical History oral surgery 10/2016 Hospitalization History GI Bleed
--- OUTSIDE RECORDS SUMMARY | 2018-08-05 03:09 | XMS REPORT ---
Author Author HEATHER FINE Organization [facility] Address [address] [place] [address] Care Team Providers Care Software Administrator Name Role Phone HEATHER FINE Unavailable PROBLEMS Type Condition ICD9-CM Code ZHU99-CX Code Onset Dates Condition Status SNOMED Code Problem Unspecified cirrhosis of liver K74.60 Active 191106210 Problem Lymphocytosis D72.820 Active 83128979 Problem Secondary esophageal varices with bleeding I85.11 Active 36125911 Problem Anxiety F41.9 Active 55483066 Problem Asthma J45.909 Active 821033248 Problem Chronic back pain M54.9 Active 108166909 Problem Dysthymia F34.1 Active 12343984 Problem Thrombocytosis D47.3 Active 4127790 Problem Splenomegaly R16.1 Active 62520768 Problem 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 Active 331569828 Problem History of hepatitis C Z86.19 Active [id number] ALLERGIES No Information ENCOUNTERS Encounter Location Date Diagnosis [place] [id number] [place] [address] 49868- 9684 May, Encounter for immunization Z23 [place] [id number] [place] [address] 55654- 2370 Apr, Anxiety F41.9 [facility] [id number] [place] [address] 11557- 3926 Apr, [place] [id number] [place] [address] 51971- 6537 Mar, Anxiety F41.9 [facility] [id number] [place] [address] 49291- 8286 Mar, [place] [id number] [place] [address] 54270- 8307 Mar, Right arm pain M79.601 [facility] [id number] [place] [address] 59629- 9792 Mar, Anxiety F41.9 [facility] [id number] [place] [address] 82262- 4096 Feb, [facility] [id number] [place] [address] 43224- 8106 Feb, Chronic back pain M54.9 ; Anxiety F41.9 and Dysuria R30.0 [facility] [id number] [place] [address] 00120- 8854 Feb, [facility] [id number] [place] [address] 13027- 0135 Feb, Anxiety F41.9 [facility] [id number] [place] [address] 63186- 9761 Jan, [facility] [id number] [place] [address] 08074- 9816 Jan, Chronic back pain M54.9 and Anxiety F41.9 [facility] [id number] [place] [address] 18304- 3551 December, Chronic back pain M54.9 and Anxiety F41.9 [facility] [id number] [place] [address] 77418- 8025 Nov, Chronic back pain M54.9 and Anxiety F41.9 [facility] [id number] [place] [address] 83053- 7651 Oct, Chronic back pain M54.9 and Anxiety F41.9 [facility] [id number] [place] [address] 33798- 6324 Oct, [facility] [id number] [place] [address] 49580- 6586 Sep, Chronic back pain M54.9 ; Anxiety F41.9 ; Pain of left leg M79.605 and Pain in right leg M79.604 [facility] [id number] [place] [address] 20095- 5192 Sep, Anxiety F41.9 and Chronic back pain M54.9 [facility] [id number] [place] [address] 02663- 2456 Sep, [facility] [id number] [place] [address] 96690- 6486 Aug, Anxiety F41.9 [facility] [id number] [place] [address] 19915 2546 Jul, Anxiety F41.9 [facility] [address] 69573- 3996 Jul, [facility] [id number] [place] [address] 73628- 7019 Jul, Viral syndrome B34.9 ; Chronic back pain M54.9 and Dysuria R30.0 [facility] [id number] [place] [address] 02217- 1806 Jun, [facility] [id number] [place] [address] 46843 2547 Jun, Anxiety F41.9 [facility] [id number] [place] [address] 16773 -0379 16 Jun, 2017 Dysuria R30.0 and Acute cystitis without hematuria N30.00 [facility] [id number] [place] [address] 70045- 4709 Jun, [facility] [id number] [place] [address] 61013- 3886 May, Anxiety F41.9 [facility] [id number] [place] [address] 39309- 5017 May, Anxiety F41.9 [facility] [id number] [place] [address] 22194- 9042 Apr, [facility] [address] [address]- 7452 Apr, Chronic back pain M54.9 and Anxiety F41.9 [facility] [address] [address]- 1717 Mar, [facility] [id number] [address]- 2661 Mar, [facility] [id number] [place] [address] 81237- 6137 Mar, Well woman exam Z01.419 ; Cervical cancer screening Z12.4 ; Breast cancer screening Z12.31 and Colon cancer screening Z12.11 [facility] [address] [address]- 7362 Mar, Chronic back pain M54.9 and Anxiety F41.9 [facility] [address] [address]- 4728 Mar, [facility] [address] [address]- 5472 Feb, Chronic back pain M54.9 and Anxiety F41.9 [facility] [id number] [address]- 5543 Feb, [facility] [address] [address]- 2135 Feb, [facility] [id number] [address]- 4504 Jan, Chronic back pain M54.9 and Anxiety F41.9 [facility] [id number] [address]- 8134 Jan, [facility] [address] [address]- 0941 Jan, [facility] [address] [address]- 6751 December, Chronic back pain M54.9 and Anxiety F41.9 [facility] [id number] [place] [address] 00085- 6990 Nov, Chronic back pain M54.9 and Anxiety F41.9 [facility] [id number] [place] [address] 24143- 0116 Oct, Chronic back pain M54.9 and Anxiety F41.9 [facility] [address] 62836- 9516 Oct, Chronic back pain M54.9 [facility] [id number] [place] [address] 41894- 8646 Sep, Anxiety F41.9 and Chronic back pain M54.9 [facility] [id number] [place] [address] 26642- 2164 Aug, Anxiety F41.9 and Chronic back pain M54.9 [facility] [id number] [place] [address] 56996- 3819 Aug, [facility] [id number] [place] [address] 92375- 6094 Jul, Chronic back pain M54.9 and Anxiety F41.9 [facility] [id number] [place] [address] 58939- 2727 Jul, Anxiety F41.9 and Chronic back pain M54.9 [id number] [address] [place] [address] Jul, [facility] [id number] [place] [address] 95349- 0087 Jul, Anxiety F41.9 [facility] [id number] [place] [address] 81658- 7862 Jul, Anxiety F41.9 and Dysuria R30.0 [facility] [id number] [place] [address] 72564- 5661 Jul, Chronic back pain M54.9 and Anxiety F41.9 [facility] [address] [facility] [id number] [address] 2546 Jun, Chronic back pain M54.9 [facility] [address] [facility] [id number] [place] [address] 49172 2546 Jun, Chronic back pain M54.9 [facility] [address] [facility] [id number] [place] [address] 32396 2546 May, Anxiety F41.9 [facility] [address] [facility] [id number] [place] [address] 97386 2546 May, Chronic back pain M54.9 [facility] [id number] [place] [address] 61521 2546 Apr, [facility] [address] [facility] [id number] [place] [address] 02915 2546 Apr, [facility] [address] [facility] [id number] [place] [address] 80434 2546 Apr, [facility] [address] [facility] [id number] [place] [address] 30021 2546 Apr, Chronic back pain M54.9 [facility] [address] [facility] [id number] [place] [address] 52402 2546 Mar, Chronic back pain M54.9 [facility] [address] [facility] [id number] [place] [address] 74563 2546 Feb, Grief F43.20 [facility] [address] [facility] [id number] [place] [address] 63994 2546 Feb, Chronic back pain M54.9 and Anxiety F41.9 [facility] [address] [facility] [id number] [place] [address] 16180 2546 Feb, Chronic back pain M54.9 [facility] [address] [facility] [id number] [address] 2546 Jan, Chronic back pain M54.9 [facility] [id number] [place] [address] 06026- 6302 December, [facility] [id number] [place] [address] 06805- 8374 December, Grief F43.20 [facility] [id number] [place] [address] 03428- 9889 Nov, [facility] [id number] [place] [address] 13357- 3495 28 Oct, 2015 Cervicalgia M54.2 ; Secondary esophageal varices with bleeding I85.11 and Mouth pain K13.79 [facility] [id number] [place] [address] 16322- 0118 Oct, [facility] [id number] [place] [address] 36376- 5353 Oct, [facility] [id number] [place] [address] 13800- 6339 Sep, [facility] [id number] [place] [address] 33669- 8753 Sep, Acute maxillary sinusitis, recurrence not specified J01.00 [facility] [id number] [place] [address] 83709- 5789 Aug, [facility] [id number] [place] [address] 97648- 2642 Aug, [facility] [id number] [place] [address] 37343- 0979 Aug, Dysuria R30.0 and Chronic back pain M54.9 [facility] [id number] [place] [address] 92560- 8163 Jul, [facility] [id number] [place] [address] 92297- 7381 Jul, [facility] [id number] [place] [address] 53035- 4859 Jul, [facility] [id number] [place] [address] 87294- 5181 Jul, Chronic back pain M54.9 [facility] [id number] [place] [address] 96791- 9205 Jul, Dysthymia F34.1 and Chronic back pain M54.9 [facility] [id number] [place] [address] 65244- 4741 Jun, [facility] [id number] [place] [address] 68038- 3985 Jun, [facility] [address] 19723- 8482 May, [facility] [id number] [place] [address] 34871- 8720 May, [facility] [address] 42771- 4413 May, [facility] [id number] [place] [address] 81973- 2202 May, Encounter for immunization Z23 [facility] [id number] [place] [address] 88990- 6237 15 Apr, 2015 [facility] [id number] [place] [address] 86499- 6911 Apr, [facility] [id number] [place] [address] 13007- 2235 Mar, [facility] [id number] [place] [address] 88023- 0086 Mar, Back pain 724.5 [facility] [id number] [place] [address] 01433- 5128 17 Mar, 2015 Cough 786.2 and Back pain 724.5 [facility] [id number] [place] [address] 56932- 7668 14 Mar, 2015 [facility] [address] [facility] [id number] [place] [address]- 6632 Mar, [facility] [place] [facility] [address] [id number] [place] [address]- 5302 December, [facility] [place] [facility] [address] [id number] [place] [address]- 9717 December, [facility] [place] [facility] [address] [id number] [place] [address]- 8923 Nov, [facility] [place] [facility] [address] [facility] [id number] [place] [address]- 5453 Nov, [facility] [place] [facility] [address] [id number] [place] [address]- 6372 Oct, [facility] [place] [facility] [address] [facility] [id number] [place] [address]- 8444 Oct, [facility] [place] [facility] [address] [facility] [id number] [place] [address]- 9031 Sep, [facility] [place] [facility] [address] [facility] [id number] [place] [address]- 7820 Sep, [facility] [place] [facility] [address] [facility] [id number] [place] [address]- 0911 Sep, [facility] [place] [facility] [address] [facility] [id number] [place] [address]- 0056 Sep, [facility] [place] [facility] [address] [facility] [id number] [address]- 0558 Sep, [facility] [place] [facility] [address] [facility] [id number] [place] [address]- 3704 Sep, [facility] [place] [facility] [address] [facility] [id number] [place] [address]- 1009 Sep, [facility] [place] [facility] [address] [facility] [id number] [place] 9252 Sep, [facility] [place] [facility] [id number] [address]- 5952 Aug, [facility] [place] [facility] [address] [id number] [place] [address]- 8233 Aug, [facility] [place] [facility] [address] [id number] [place] [address]- 1693 14 Aug, 2014 [facility] [place] [facility] [address] [id number] [place] [address]- 7150 Aug, [facility] [place] [facility] [address] [id number] [place] [address]- 2826 Aug, [facility] [place] [facility] [address] [id number] [place] [address]- 6418 Aug, [facility] [place] [facility] [address] [id number] [place] [address]- 2847 Aug, [facility] [place] [facility] [address] [id number] [place] [address]- 7519 Jul, [facility] [place] [facility] [address] [id number] [place] [address]- 8810 Jul, [facility] [place] [facility] [address] [id number] [place] [address]- 9022 Jul, [facility] [place] [facility] [address] [id number] [place] [address]- 4849 Jul, [facility] [place] [facility] [address] [id number] [place] [address]- 1997 Jul, [facility] [place] [facility] [address] [id number] [place] [address]- 7409 Jul, [facility] [place] [facility] [address] [id number] [place] [address]- 9122 Jul, [facility] [place] [facility] [address] [id number] [place] [address]- 4361 05 Jul, 2014 [facility] [place] [facility] [address] [id number] [place] [address]- 9275 Jun, [facility] [place] [facility] [address] [id number] [place] [address]- 1499 Jun, [facility] [place] [facility] [address] [id number] [place] [address]- 0379 Jun, [facility] [place] [facility] [address] [id number] [place] [address]- 5220 Jun, [facility] [place] [facility] [address] [id number] [place] [address]- 8032 Jun, [facility] [place] [facility] [address] [id number] [place] [address]- 7081 Jun, [facility] [place] [facility] [address] [id number] [place] [address]- 2823 Jun, [facility] [place] [facility] [address] [id number] [place] [address]- 9791 May, [facility] [place] [facility] [address] [id number] [place] [address]- 4559 May, [facility] [place] [facility] [address] [id number] [place] [address]- 5496 28 May, 2014 [facility] [place] [facility] [address] [id number] [place] [address]- 6334 28 May, 2014 [facility] [place] [facility] [address] [id number] [place] [address]- 4807 2014 [facility] [place] [facility] [address] [id number] [place] [address]- 3906 2014 [facility] [place] [facility] [address] [id number] [place] [address]- 9205 2014 [facility] [place] [facility] [address] [id number] [place] [address]- 0304 2014 [facility] [place] [facility] [address] [id number] [place] [address]- 4228 13 May, 2014 [facility] [place] [facility] [address] [id number] [place] [address]- 1479 May, [facility] [place] [facility] [address] [id number] [place] [address]- 9940 May, [facility] [place] [facility] [address] [id number] [place] [address]- 2581 May, [facility] [place] [facility] [address] [id number] [place] [address]- 7128 May, [facility] [place] [facility] [address] [id number] [place] [address]- 2465 May, [facility] [place] [facility] [address] [id number] [place] [address]- 3180 Apr, [facility] [place] [facility] [address] [id number] [place] [address]- 9877 Apr, [facility] [place] [facility] [address] [id number] [place] [address]- 1198 Apr, [facility] [place] [facility] [address] [id number] [place] [address]- 2097 Apr, [facility] [place] [facility] [address] [id number] [place] [address]- 2855 Apr, [facility] [place] [facility] [address] [id number] [place] [address]- 1087 Apr, [facility] [place] [facility] [address] [id number] [place] [address]- 8115 Apr, [facility] [place] [facility] [address] [id number], [place] [address]- 8381 Mar, [facility] [place] [facility] [address] [id number] [place] [address]- 6046 Mar, [facility] [place] [facility] [address] [id number] [place] [address]- 9058 Mar, [facility] [place] [facility] [address] [id number] [place] [address]- 0550 Mar, [facility] [place] [facility] [address] [id number] [place] [address]- 8782 Mar, [facility] [place] [facility] [address] [id number] [place] [address]- 7603 Mar, [facility] [place] [facility] [address] [id number] [place] [address]- 4865 Feb, [facility] [place] [facility] [address] [id number] [place] [address]- 3879 Feb, [facility] [place] [facility] [address] [id number] [place] [address]- 0128 Feb, [facility] [place] [facility] [address] [id number] [place] [address] Feb, [facility] [place] [facility] [address] [id number] [place] [address] Feb, [facility] [place] [facility] [address] [id number] [place] [address] Feb, [facility] [place] [facility] [address] [id number] [place] [address] Feb, [facility] [place] [facility] [address] [id number] [place] [address] Feb, [facility] [place] [facility] [address] [id number] [place] [address] Jan, [facility] [place] [facility] [address] [id number] [place] [address] Jan, [facility] [place] [facility] [address] [id number] [place] [address] December, [facility] [place] [facility] [address] [id number] [place] [address] December, [facility] [place] [facility] [address] [id number] [place] [address] December, [facility] [place] [facility] [address] [id number] [place] [address] December, [facility] [place] [facility] [address] [id number] [place] [address] December, [facility] [place] [facility] [address] [id number] [place] [address] December, [facility] [place] [facility] [address] [id number] [place] [address] December, [facility] [place] [facility] [address] [id number] [place] [address] December, [facility] [place] [facility] [address] [id number] [place] [address] December, [facility] [place] [facility] [address] [id number] [place] [address] December, [facility] [place] [facility] [address] [id number] [place] [address] December, [facility] [place] [facility] [address] [id number] [place] [address] December, [facility] [place] [facility] [address] [id number] [place] [address] Nov, [facility] [place] [facility] [address] [id number] [place] [address] Nov, [facility] [place] [facility] [address] [id number] [place] [address] Nov, [facility] [place] [facility] [address] [id number] [place] [address] Nov, [facility] [place] [facility] [address] [id number] [place] [address] Nov, [facility] [place] [facility] [address] [id number] [place] [address] Nov, [facility] [place] [facility] [address] [id number] [place] [address]598 Nov, [facility] [place] [facility] [address] [id number] [place] [address] Nov, [facility] [place] [facility] [address] [id number] [place] [address] Nov, [facility] [place] [facility] [address] [id number] [place] [address] Nov, [facility] [place] [facility] [address] [facility] [id number] [place] [address] Nov, [facility] [place] [facility] [address] [facility] [id number] [place] [address] Nov, [facility] [place] [facility] [address] [id number] [place] [address] Nov, [facility] [place] [facility] [address] [facility] [id number] [place] [address] Oct, [facility] [place] [facility] [address] [facility] [id number] [place] [address] Oct, [facility] [place] [facility] [address] [facility] [id number] [place] [address]- [address] Sep, [facility] [place] [facility] [address] [facility] [id number] [place] [address] Sep, [facility] [place] [facility] [address] [facility] [id number] [place] [address] Sep, [facility] [place] [facility] [address] [facility] [id number], [place] [address] Sep, [facility] [place] [facility] [address] [facility] [id number], [place] [address] Sep, [facility] [place] [facility] [address] [facility] [id number] [place] [address] Sep, [facility] [place] [facility] [address] [facility] [id number], [place] [address] Sep, [facility] [place] [facility] [address] [id number], [place] [address] 18 Sep, 2013 [facility] [place] [facility] [address] [id number] [place] [address] Sep, [facility] [place] [facility] [address] [id number] [place] [address]- [address]66 Sep, [facility] [place] [facility] [address] [id number] [place] [address]- 5869 Sep, [facility] [place] [facility] [address] [id number] [place] [address]- [address] Sep, [facility] [place] [facility] [address] [id number] [place] [address]- [address] Aug, [facility] [place] [facility] [address] [id number] [place] [address] Aug, [facility] [place] [facility] [address] [id number] [place] [address]- [address]275 Aug, [facility] [place] [facility] [address] [id number] [place] [address]- [address] Aug, [facility] [place] [facility] [address] [id number] [place] [address]248 Aug, [facility] [place] [facility] [address] [id number] [place] [address] Aug, [facility] [place] [facility] [address] [id number] [place] [address] Aug, [facility] [place] [facility] [address] [id number] [place] [address] Aug, [facility] [place] [facility] [address] [id number] [place] [address] 2243 Aug, [facility] [place] [facility] [address] [id number] [place] [address] 5193 Aug, [facility] [place] [facility] [address] [id number] [place] [address] 5213 16 Aug, 2013 [facility] [place] [facility] [address] [id number], [place] [address]6 Aug, [facility] [address] [id number] [place] [address]- 4976 Aug, [facility] [place] [facility] [address] [id number] [place] [address]- 3834 Aug, [facility] [place] [facility] [address] [id number] [place] [address]- 2655 Aug, [facility] [place] [facility] [address] [id number] [place] [address]- 2623 Aug, [facility] [place] [facility] [address] [id number] [place] [address]- 5[address] Aug, [facility] [place] [facility] [address] [id number] [place] [address]- 9330 Aug, [facility] [place] [facility] [address] [id number] [place] [address]- 8156 Aug, [facility] [place] [facility] [address] [id number] [place] [address]- 4523 Aug, [facility] [place] [facility] [address] [id number] [place] [address]- 0150 Aug, [facility] [place] [facility] [address] [id number] [place] [address]- 8341 Aug, [facility] [place] [facility] [address] [id number], [place] [address] 9431 Aug, [facility] [place] [facility] [address] [id number], [place] [address] 2038 Jul, [facility] [place] [facility] [address] [id number] [place] [address]- 4784 Jul, [facility] [place] [facility] [address] [id number] [place] [address]- 6319 Jul, [facility] [place] [facility] [address] [id number] [place] [address]- 4494 Jul, [facility] [place] [facility] [address] [id number] [place] [address]- 6744 Jul, [facility] [place] [facility] [address] [id number] [place] [address]- 4393 Jul, [facility] [place] [facility] [address] [id number] [place] [address]- 5609 Jun, [facility] [place] [facility] [address] [id number] [place] [address]- 9195 Jun, [facility] [place] [facility] [address] [id number] [place] [address]- 5316 Jun, [facility] [place] [facility] [address] [id number] [place] [address]- 0817 Jun, [facility] [place] [facility] [address] [id number] [place] [address]- 7460 Jun, [facility] [place] [facility] [address] [id number] [place] [address]- 4803 Jun, [facility] [place] [facility] [address] [id number] [place] [address]- 3170 Jun, [facility] [place] [facility] [address] [id number] [place] [address]- 4445 Jun, [facility] [place] [facility] [address] [id number] [place] [address]- 3164 Jun, [facility] [place] [facility] [address] [id number] [place] [address]- 5908 Jun, [facility] [place] [facility] [address] [id number] [place] [address]- 2319 May, [facility] [place] [facility] [address] [id number] [place] [address]- 9578 May, [facility] [place] [facility] [address] [id number] [place] [address]- 6384 May, [facility] [place] [facility] [address] [id number] [place] [address]- 9172 May, [facility] [place] [facility] [address] [id number] [place] [address]- 6760 May, [facility] [place] [facility] [address] [id number] [place] [address]- 0664 24 May, 2013 [facility] [place] [facility] [address] [id number] [place] [address]- 6226 24 May, 2013 [facility] [place] [facility] [address] [id number] [place] [address]- 1741 May, [facility] [place] [facility] [address] [id number] [place] [address]- 9211 May, [facility] [place] [facility] [address] [id number] [place] [address]- 2541 May, [facility] [place] [facility] [address] [id number] [place] [address]- 4559 17 May, 2013 [facility] [place] [facility] [address] [id number], [place] [address]- 4102 16 May, 2013 [facility] [place] [facility] [address] [id number] [place] [address]- 3431 16 May, 2013 [facility] [place] [facility] [address] [id number], [place] [address] 2947 16 May, 2013 [facility] [place] [facility] [address] [id number], [place] [address]- 3300 16 May, 2013 [facility] [place] [facility] [address] [id number], [place] [address]- 7990 24 Apr, 2013 [facility] [place] [facility] [address] [id number] [place] [address]- 8114 23 Apr, 2013 [facility] [place] [facility] [address] [id number], [place] [address]- 1387 Apr, [facility] [place] [facility] [address] [id number] [place] [address]- 3923 Mar, [facility] [place] [facility] [address] [id number] [place] [address]- 9027 Mar, [facility] [place] [facility] [address] [id number] [place] [address]- 9667 Mar, [facility] [place] [facility] [address] [id number] [place] [address]- 3844 Mar, [facility] [place] [facility] [address] [id number] [place] [address]- 8552 Mar, [facility] [place] [facility] [address] [id number] [place] [address]- 2652 Mar, [facility] [place] [facility] [address] [id number] [place] [address]- 1440 Feb, [facility] [place] [facility] [address] [id number] [place] [address]- 7019 Feb, [facility] [place] [facility] [address] [id number] [place] [address]- 2570 Feb, [facility] [place] [facility] [address] [id number] [place] [address]- 3449 Feb, [facility] [place] [facility] [address] [id number] [place] [address]- 2917 Feb, [facility] [place] [facility] [address] [id number] [place] [address]- 8571 Feb, [facility] [place] [facility] [address] [id number] [place] [address]- 6511 Feb, [facility] [place] [facility] [address] [id number] [place] [address]- 9719 Feb, [facility] [place] [facility] [address] [id number] [place] [address]- 2458 Feb, [facility] [place] [facility] [address] [id number] [place] [address]- 6187 Feb, [facility] [place] [facility] [address] [id number] [place] [address]- 9608 Jan, [facility] [place] [facility] [address] [id number] [place] [address]- 0027 Jan, [facility] [address] [id number] [place] [address]- 5039 Jan, [facility] [address] [id number] [place] [address]- 8863 Jan, [facility] [address] [id number] [place] [address]- 6901 December, [facility] [address] [id number] [place] [address]- 1327 December, [facility] [address] [id number] [place] [address]- 1199 December, [facility] [address] [id number] [place] [address]- 2355 Nov, [facility] [address] [id number] [place] [address]- 5633 Nov, [facility] [address] [id number] [place] [address]- 4635 Nov, [facility] [address] [id number] [place] [address]- 1054 Nov, [facility] [address] [id number] [place] [address]- 1191 Nov, [facility] [address] [id number] [place] [address]- 9331 Nov, [facility] [place] [facility] [address] [id number] [place] [address]- 5952 Oct, [facility] [place] [facility] [address] [id number] [place] [address]- 3662 Oct, [facility] [place] [facility] [address] [id number] [place] [address]- 5110 Oct, [facility] [place] [facility] [address] [id number] [place] [address]- 8870 Sep, [facility] [place] [facility] [address] [id number] [place] [address]- 9663 Sep, [facility] [place] [facility] [address] [id number] [place] [address]- 5846 Sep, [facility] [place] [facility] [address] [id number] [place] [address]- 0312 Aug, [facility] [place] [facility] [address] [id number] [place] [address]- 5102 Aug, [facility] [place] [facility] [address] [id number] [place] [address]- 3633 Aug, [facility] [place] [facility] [address] [id number] [place] [address]- 2878 Aug, [facility] [address] [id number] [place] [address]- 0983 Jul, [facility] [place] [facility] [address] [id number] [place] [address]- 3371 Jul, [facility] [place] [facility] [address] [id number] [place] [address]- 4021 Jul, [facility] [place] [facility] [address] [id number] [place] [address]- 5972 Jul, [facility] [place] [facility] [address] [id number], [place] [address]- 7162 Jun, [facility] [place] [facility] [address] [id number] [place] [address]- 2689 Jun, [facility] [place] [facility] [address] [id number] [place] [address]- 7869 Jun, [facility] [place] [facility] [address] [id number] [place] [address]- 6936 Jun, [facility] [place] [facility] [address] [id number] [place] [address]- 3618 Jun, [facility] [place] [facility] [address] [id number] [place] [address] 2546 05 Jun, 2012 [facility] [place] [facility] [address] [id number] [place] [address]- 8647 02 Jun, 2012 [facility] [place] [facility] [address] [id number] [place] [address] 2546 02 Jun, 2012 [facility] [place] [facility] [address] [id number] [place] [address]- 9406 30 May, 2012 [facility] [place] [facility] [address] [id number] [place] [address]- 3482 30 May, 2012 [facility] [place] [facility] [address] [id number] [place] [address]- 7374 18 May, 2012 [facility] [place] [facility] [address] [id number] [place] [address]- 5049 18 May, 2012 [facility] [place] [facility] [address] [id number] [place] [address]- 3930 2012 [facility] [place] [facility] [address] [id number] [place] [address]- 1877 13 May, 2012 [facility] [place] [facility] [address] [id number] [place] [address]- 4532 11 May, 2012 [facility] [place] [facility] [address] [facility] [id number] [place] [address]- 6865 11 May, 2012 [facility] [place] [facility] [address] [id number] [place] [address]- 5555 10 May, 2012 [facility] [place] [facility] [address] [id number] [place] [address]- 0435 08 May, 2012 [facility] [place] [facility] [address] [id number] [place] [address]- 3766 24 Apr, 2012 [facility] [place] [facility] [address] [id number] [place] [address] 2546 19 Sep2011 [facility] [place] [facility] [address] [id number] [place] [address]- 1699 18 Apr, 2012 [facility] [place] [facility] [address] [id number] [place] [address]- 4402 17 Apr, 2012 [facility] [place] [facility] [address] [id number] [place] [address]- 3296 16 Apr, 2012 [facility] [place] [facility] [address] [id number] [place] [address]- 5274 10 Apr, 2012 [facility] [place] [facility] [address] [id number] [place] [address]- 7093 29 Mar, 2012 [facility] [place] [facility] [address] [id number] [place] [address]- 3555 Mar, [facility] [place] [facility] [address] [id number] [place] [address]- 3128 Mar, [facility] [place] [facility] [address] [id number] [place] [address]- 8896 Mar, [facility] [place] [facility] [address] [id number] [place] [address]- 4486 Mar, [facility] [place] [facility] [address] [id number] [place] [address]- 9318 Mar, [facility] [place] [facility] [address] [id number] [place] [address]- 0291 Feb, [facility] [place] [facility] [address] [id number] [place] [address]- 9146 Feb, [facility] [place] [facility] [address] [id number] [place] [address]- 4203 Feb, [facility] [place] [facility] [address] [id number] [place] [address]- 1914 Feb, [facility] [place] [facility] [address] [id number] [place] [address]- 9836 Feb, [facility] [place] [facility] [address] [id number] [place] [address]- 4226 Feb, [facility] [place] [facility] [address] [id number] [place] [address]- 8370 Feb, [facility] [place] [facility] [address] [id number] [place] [address]- 3718 Feb, [facility] [place] [facility] [address] [id number] [place] [address]- 7276 Feb, [facility] [place] [facility] [address] [id number] [place] [address]- 4844 Jan, [facility] [place] [facility] [address] [id number] [place] [address]- 9160 Jan, [facility] [place] [facility] [address] [id number] [place] [address]- 5080 Jan, [facility] [place] [facility] [address] [id number] [place] [address]- 5088 Jan, [facility] [place] [facility] [address] [id number] [place] [address]- 9790 Jan, [facility] [place] [facility] [address] [id number] [place] [address]- 3438 Jan, [facility] [place] [facility] [address] [id number] [place] [address]- 6224 Jan, [facility] [place] [facility] [address] [id number] [place] [address]- 3048 Jan, [facility] [place] [facility] [address] [id number] [place] [address]- 2528 Jan, [facility] [place] [facility] [address] [id number] [place] [address]- 9632 December, [facility] [place] [facility] [address] [id number] [place] [address]- 0989 December, [facility] [place] [facility] [address] [id number] [place] [address]- 5124 December, [facility] [place] [facility] [address] [id number] [place] [address]- 3012 December, [facility] [place] [facility] [address] [id number] [place] [address]- 2660 December, [facility] [place] [facility] [address] [id number] [place] [address]- 6863 December, [facility] [place] [facility] [address] [id number] [place] [address]- 1426 December, [facility] [place] [facility] [address] [id number] [place] [address]- 6354 December, [facility] [place] [facility] [address] [id number] [place] [address]- 0252 December, [facility] [place] [facility] [address] [id number] [place] [address]- 9163 December, [facility] [place] [facility] [address] [id number] [place] [address]- 3894 Nov, [facility] [place] [facility] [address] [id number] [place] [address]- 4206 Nov, [facility] [place] [facility] [address] [id number] [place] [address]- 9566 Nov, [facility] [place] [facility] [address] [id number] [place] [address]- 4811 Nov, [facility] [place] [facility] [address] [id number] [place] [address]- 2721 16 Nov, 2011 [facility] [place] [facility] [address] [id number] [place] [address]- 3079 13 Nov, 2011 [facility] [place] [facility] [address] [id number] [place] [address]- 5563 Nov, [facility] [place] [facility] [address] [id number] [place] [address]- 7951 06 Nov, 2011 [facility] [place] [facility] [address] [id number] [place] [address]- 3583 05 Nov, 2011 [facility] [place] [facility] [address] [id number] [place] [address]- 0806 03 Nov, 2011 [facility] [place] [facility] [address] [id number] [place] [address]- 4361 30 Oct, 2011 [facility] [place] [facility] [address] [id number] [place] [address]- 1686 29 Oct, 2011 [facility] [place] [facility] [address] [id number] [place] [address]- 7036 23 Oct, 2011 [facility] [place] [facility] [address] [id number] [place] [address]- 9803 23 Oct, 2011 [facility] [place] [facility] [address] [id number] [place] [address]- 4756 21 Oct, 2011 [facility] [place] [facility] [address] [id number] [place] [address]- 8655 20 Oct, 2011 [facility] [place] [facility] [address] [id number] [place] [address]- 7723 19 Oct, 2011 [facility] [place] [facility] [address] [id number] [place] [address]- 8085 19 Oct, 2011 [facility] [place] [facility] [address] [id number] [place] [address]- 4384 16 Oct, 2011 [facility] [place] [facility] [address] [id number] [place] [address]- 4257 14 Oct, 2011 [facility] [place] [facility] [address] [id number] [place] [address]- 0207 14 Oct, 2011 [facility] [place] [facility] [address] [id number] [place] [address]- 9853 09 Oct, 2011 [facility] [place] [facility] [address] [id number] [place] [address]- 8632 08 Oct, 2011 [facility] [place] [facility] [address] [id number] [place] [address]- 1876 06 Oct, 2011 [facility] [place] [facility] [address] [id number] [place] [address] 2546 02 Oct, 2011 [facility] [place] [facility] [address] [id number] [place] [address]- 1834 28 Sep, 2011 [facility] [address] [id number] [place] [address] 2546 24 Sep, 2011 [facility] [place] [facility] [address] [id number] [place] [address] 2546 20 Sep, 2011 [facility] [place] [facility] [address] [id number] [place] [address] 2546 17 Sep, 2011 [facility] [place] [facility] [address] [id number] [place] [address]- 2546 16 Sep, 2011 [facility] [place] [facility] [address] [id number] [place] [address]- 6156 14 Sep, 2011 [facility] [place] [facility] [address] [id number] [place] [address]- 6576 13 Sep, 2011 [facility] [place] [facility] [address] [id number] [place] [address]- 1237 10 Sep, 2011 [facility] [place] [facility] [address] [id number] [place] [address]- 1540 06 Sep, 2011 [facility] [place] [facility] [address] [id number] [place] [address]- 9749 03 Sep, 2011 [facility] [place] [facility] [address] [facility] [id number] [place] [address]- 9933 Sep, [facility] [place] [facility] [address] [id number] [place] [address] Aug, [facility] [place] [facility] [address] [id number] [place] [address] Aug, [facility] [place] [facility] [address] [id number] [place] [address] Aug, [facility] [place] [facility] [address] [id number] [place] [address] Aug, [facility] [place] [facility] [address] [id number] [place] [address] Aug, [facility] [address] [id number] [place] [address] 17 Aug, 2011 [facility] [place] [facility] [address] [id number] [place] [address] 17 Aug, 2011 [facility] [place] [facility] [address] [id number] [place] [address] 17 Aug, 2011 [facility] [place] [facility] [address] [id number] [place] [address] 16 Aug, 2011 [facility] [place] [facility] [address] [id number] [place] [address] Aug, [facility] [place] [facility] [address] [id number] [place] [address] Aug, [facility] [place] [facility] [address] [id number] [place] [address] Aug, [facility] [place] [facility] [address] [id number] [place] [address] Aug, [facility] [place] [facility] [address] [id number] [place] [address] Aug, [facility] [place] [facility] [address] [id number] [place] [address] Aug, [facility] [place] [facility] [address] [id number] [place] [address] Aug, [facility] [place] [facility] [address] [id number] [place] [address] Aug, [facility] [place] [facility] [address] [id number] [place] [address] Jul, [facility] [place] [facility] [address] [id number] [place] [address] Jul, [facility] [place] [facility] [address] [id number] [place] [address] Jul, [facility] [place] [facility] [id number] [address] Jul, [facility] [id number] [address] Jul, [facility] [id number] [address] Jul, [facility] [id number] [address] Jul, [facility] [id number] [address] 16 Jul, 2011 [facility] [id number] [place] [address] Jul, [facility] [id number] [address] Jul, [facility] [id number] [place] [address]- [address] Jul, [facility] [id number] [address] Jun, [facility] [id number] [address] Jun, [facility] [address] [id number] [address] Jun, IMMUNIZATIONS No Known Immunizations SOCIAL HISTORY Never Assessed REASON FOR VISIT Controlled Med Refill 05/13/18 PLAN OF CARE VITAL SIGNS MEDICATIONS Medication Instructions Dosage Frequency Start Date End Date Duration Status Ativan 0.5 MG Orally Once a day 1 tablet as needed 24h December, 28 days Active Oxycodone HCl 5 MG Orally Once a day 1 tablet at bedtime 24h Apr, 28 days Active RESULTS No Results PROCEDURES [...]
--- OUTSIDE RECORDS SUMMARY | 2018-08-05 03:10 | XMS REPORT ---
Author Author HEATHER FINE Organization [facility] Address [address] [place] [address] Care Team Providers Care Assembly Department Supervisor Name Role Phone HEATHER FINE Unavailable PROBLEMS Type Condition ICD9-CM Code JHQ08-GD Code Onset Dates Condition Status SNOMED Code Problem Unspecified cirrhosis of liver K74.60 Active 399115309 Problem Lymphocytosis D72.820 Active 05593887 Problem Secondary esophageal varices with bleeding I85.11 Active 53217182 Problem Anxiety F41.9 Active 38667486 Problem Asthma J45.909 Active 762114828 Problem Chronic back pain M54.9 Active 887884442 Problem Dysthymia F34.1 Active 49349645 Problem Thrombocytosis D47.3 Active 4474608 Problem Splenomegaly R16.1 Active 50615412 Problem 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 Active 079291721 Problem History of hepatitis C Z86.19 Active [id number] ALLERGIES No Information ENCOUNTERS Encounter Location Date Diagnosis [place] [id number] [place] [address] 83223- 3347 Apr, Anxiety F41.9 [place] [id number] [place] [address] 75244- 6428 Apr, [place] [id number] [place] [address] 36191- 4144 Mar, Anxiety F41.9 [place] [id number] [place] [address] 20542- 0826 Mar, [place] [id number] [place] [address] 21511- 6799 Mar, Right arm pain M79.601 [place] [id number] [place] [address] 26455- 1825 Mar, Anxiety F41.9 [facility] [id number] [place] [address] 27540- 7885 Feb, [facility] [id number] [place] [address] 31614- 3812 Feb, Chronic back pain M54.9 ; Anxiety F41.9 and Dysuria R30.0 [facility] [id number] [place] [address] 64219- 3292 Feb, [facility] [id number] [place] [address] 28997- 6570 Feb, Anxiety F41.9 [facility] [address] 42386- 8092 Jan, [facility] [id number] [place] [address] 97625- 2936 Jan, Chronic back pain M54.9 and Anxiety F41.9 [facility] [id number] [place] [address] 05358- 2057 December, Chronic back pain M54.9 and Anxiety F41.9 [place] [id number] [place] [address] 75771- 7516 Nov, Chronic back pain M54.9 and Anxiety F41.9 [facility] [id number] [place] [address] 36400- 6565 Oct, Chronic back pain M54.9 and Anxiety F41.9 [facility] [id number] [place] [address] 47421- 1993 Oct, [facility] [id number] [place] [address] 62709- 6412 Sep, Chronic back pain M54.9 ; Anxiety F41.9 ; Pain of left leg M79.605 and Pain in right leg M79.604 [facility] [id number] [place] [address] 83056- 2194 Sep, Anxiety F41.9 and Chronic back pain M54.9 [facility] [id number] [place] [address] 34706- 1034 Sep, [facility] [id number] [place] [address] 86216- 4590 Aug, Anxiety F41.9 [facility] [id number] [place] [address] 53506- 7153 Jul, Anxiety F41.9 [facility] [address] 77774- 8244 Jul, [facility] [address] 24518- 6428 Jul, Viral syndrome B34.9 ; Chronic back pain M54.9 and Dysuria R30.0 [facility] [id number] [place] [address] 41638- 7439 Jun, [facility] [address] 39219- 8957 Jun, Anxiety F41.9 [facility] [address] 71921 -6116 Jun, Dysuria R30.0 and Acute cystitis without hematuria N30.00 [facility] [id number] [place] [address] 97677- 1826 Jun, [facility] [id number] [place] [address] 97194- 8139 May, Anxiety F41.9 [facility] [id number] [place] [address] 04642- 9532 May, Anxiety F41.9 [facility] [id number] [place] [address] 78983- 2845 Apr, [facility] [id number] [place] [address] 57956- 7119 Apr, Chronic back pain M54.9 and Anxiety F41.9 [facility] [address] [facility] [id number], [place] [address]- 4839 Mar, [facility] [address] [facility] [id number] [place] [address] 43121- 1416 Mar, [facility] [address] [address]- 3680 Mar, Well woman exam Z01.419 ; Cervical cancer screening Z12.4 ; Breast cancer screening Z12.31 and Colon cancer screening Z12.11 [facility] [address] [facility] [id number] [place] [address] 07698- 3568 Mar, Chronic back pain M54.9 and Anxiety F41.9 [facility] [id number] [place] [address] 20695- 7636 Mar, [facility] [id number] [place] [address] 88852- 9331 Feb, Chronic back pain M54.9 and Anxiety F41.9 [facility] [address], [place] [address]- 3941 Feb, [facility] [id number] [place] [address] 09859- 6355 Feb, [facility] [id number] [address]- 6244 Jan, Chronic back pain M54.9 and Anxiety F41.9 [facility] [id number] [address]- 2817 Jan, [facility] [address] [facility] [id number] [place] [address] 72933- 3116 Jan, [facility] [id number] [place] [address] 35523- 0027 December, Chronic back pain M54.9 and Anxiety F41.9 [facility] [address] [place] [address] 28924- 4254 Nov, Chronic back pain M54.9 and Anxiety F41.9 [facility] [id number] [place] [address] 32819- 0264 Oct, Chronic back pain M54.9 and Anxiety F41.9 [facility] [id number] [place] [address] 32764- 2117 Oct, Chronic back pain M54.9 [facility] [address] 13311- 7794 Sep, Anxiety F41.9 and Chronic back pain M54.9 [facility] [address] 46566- 5836 Aug, Anxiety F41.9 and Chronic back pain M54.9 [facility] [id number] [place] [address] 27020- 2990 Aug, [facility] [address] 11475- 9472 Jul, Chronic back pain M54.9 and Anxiety F41.9 [facility] [address] 63241- 2416 Jul, Anxiety F41.9 and Chronic back pain M54.9 [facility] [address] [place] [address] Jul, [facility] [id number] [place] [address] 21390- 1037 Jul, Anxiety F41.9 [facility] [id number] [place] [address] 67369- 7128 Jul, Anxiety F41.9 and Dysuria R30.0 [facility] [id number] [place] [address] 03403- 3005 Jul, Chronic back pain M54.9 and Anxiety F41.9 [facility] [id number] [place] [address] 43550- 1948 Jun, Chronic back pain M54.9 [facility] [address] [facility] [id number], [place] [address]- 8696 Jun, Chronic back pain M54.9 [facility] [address] [facility] [id number] [place] [address] 26696 2546 May, Anxiety F41.9 [facility] [id number] [place] [address] 92212 2546 May, Chronic back pain M54.9 [facility] [id number] [place] [address] 62821 2546 Apr, [facility] [address] [facility] [id number] [place] [address] 62885 2546 Apr, [facility] [address] [facility] [id number] [place] [address] 87634- 6056 Apr, [facility] [address] [facility] [id number] [place] [address] 22927 2546 Apr, Chronic back pain M54.9 [facility] [address] [facility] [id number] [place] [address] 52481 2546 Mar, Chronic back pain M54.9 [facility] [address] [facility] [id number], [place] [address] 2546 Feb, Grief F43.20 [facility] [address] [facility] [id number], [place] [address] 2549 Feb, Chronic back pain M54.9 and Anxiety F41.9 [facility] [address] [facility] [id number], [place] [address] 2548 Feb, Chronic back pain M54.9 [facility] [address] [facility] [id number] [place] [address] 50601 2546 Jan, Chronic back pain M54.9 [facility] [address] [facility] [id number], [place] [address]- 0766 December, [facility] [address], [place] [address]- 3275 December, Grief F43.20 [facility] [id number] [place] [address] 56090- 9569 Nov, [facility] [id number] [place] [address] 62590 2549 Oct, Cervicalgia M54.2 ; Secondary esophageal varices with bleeding I85.11 and Mouth pain K13.79 [facility] [address] [place] [address] 11341- 9339 Oct, [facility] [id number] [place] [address] 48194- 6816 Oct, [facility] [id number] [place] [address] 55363- 5201 Sep, [facility] [id number] [place] [address] 42187- 2644 Sep, Acute maxillary sinusitis, recurrence not specified J01.00 [facility] [address] [place] [address] 96004- 8671 Aug, [facility] [address] [place] [address] 14336- 2790 Aug, [facility] [address], [place] [address]- 6671 Aug, Dysuria R30.0 and Chronic back pain M54.9 [facility] [address], [place] [address]- 7316 Jul, [facility] [id number] [place] [address] 52924- 5637 Jul, [facility] [id number] [place] [address] 25641- 5795 Jul, [facility] [address], [place] [address]- 0184 Jul, Chronic back pain M54.9 [facility] [address] [place] [address] 01167- 8169 Jul, Dysthymia F34.1 and Chronic back pain M54.9 [facility] [id number] [place] [address] 26701- 4259 Jun, [facility] [id number] [place] [address] 34896- 9782 Jun, [facility] [id number] [place] [address] 89362- 3427 May, [facility] [id number] [place] [address] 97671- 5226 May, [facility] [id number] [place] [address] 72711- 4312 May, [facility] [id number] [place] [address] 95476- 3194 May, Encounter for immunization Z23 [facility] [id number] [place] [address] 86289- 1515 Apr, [facility] [id number] [place] [address] 33369- 5788 Apr, [facility] [id number] [place] [address] 10618- 0846 Mar, [facility] [id number] [place] [address] 77628- 3320 Mar, Back pain 724.5 [facility] [id number] [place] [address] 91748- 6093 17 Mar, 2015 Cough 786.2 and Back pain 724.5 [facility] [id number] [place] [address] 86036- 5072 Mar, [facility] [id number] [place] [address] 05604- 6558 Mar, [facility] [id number] [place] [address]- 4990 December, [facility] [place] [facility] [address] [id number] [place] [address]- 5876 December, [facility] [place] [facility] [address] [id number] [place] [address]- 7328 14 Nov, 2014 [facility] [place] [facility] [address] [id number] [place] [address]- 0564 13 Nov, 2014 [facility] [place] [facility] [address] [id number] [place] [address]- 3465 Oct, [facility] [place] [facility] [address] [id number] [place] [address]- 6292 Oct, [facility] [place] [facility] [address] [facility] [id number] [place] [address]- 8959 13 Sep, 2014 [facility] [place] [facility] [address] [facility] [id number] [place] [address]- 6568 12 Sep, 2014 [facility] [place] [facility] [address] [facility] [id number] [place] [address]- 0751 12 Sep, 2014 [facility] [place] [facility] [id number] [place] [address]- 8805 10 Sep, 2014 [facility] [place] [facility] [address] [facility] [id number] [place] [address]- 0890 02 Sep, 2014 [facility] [place] [facility] [address] [facility] [id number] [place] [address]- 7543 02 Sep, 2014 [facility] [place] [facility] [address] [facility] [id number] [place] [address]- 7365 02 Sep, 2014 [facility] [place] [facility] [address] [facility] [id number] [place] 2520 02 Sep, 2014 [facility] [place] [facility] [address] [facility] [id number] [place] [address]- 7498 27 Aug, 2014 [facility] [place] [facility] [address] [facility] [id number] [place] [address]- 4817 14 Aug, 2014 [facility] [place] [facility] [address] [id number] [place] [address]- 5159 14 Aug, 2014 [facility] [place] [facility] [address] [id number] [place] [address]- 5632 13 Aug, 2014 [facility] [place] [facility] [address] [id number] [place] [address]- 0810 Aug, [facility] [place] [facility] [address] [id number] [place] [address]- 0498 Aug, [facility] [place] [facility] [address] [id number] [place] [address]- 3370 Aug, [facility] [place] [facility] [address] [id number] [place] [address]- 2017 Jul, [facility] [place] [facility] [address] [id number] [place] [address]- 0663 Jul, [facility] [place] [facility] [address] [id number] [place] [address]- 4267 18 Jul, 2014 [facility] [place] [facility] [address] [id number] [place] [address]- 2228 18 Jul, 2014 [facility] [place] [facility] [address] [id number] [place] [address]- 6916 15 Jul, 2014 [facility] [place] [facility] [address] [id number], [place] [address]- 6926 Jul, [facility] [place] [facility] [address] [id number], [place] [address]- 5763 05 Jul, 2014 [facility] [place] [facility] [address] [id number] [place] [address]- 3669 Jul, [facility] [place] [facility] [address] [id number] [place] [address]- 1043 Jun, [facility] [place] [facility] [address] [id number] [place] 5174 Jun, [facility] [place] [facility] [address] [id number] [place] [address]- 1192 Jun, [facility] [place] [facility] [address] [id number] [place] [address]- 1109 07 Jun, 2014 [facility] [place] [facility] [address] [id number] [place] [address]- 7960 Jun, [facility] [place] [facility] [address] [id number] [place] 8197 Jun, [facility] [place] [facility] [address] [id number] [place] [address]- 3146 Jun, [facility] [place] [facility] [address] [id number] [place] [address]- 8566 May, [facility] [place] [facility] [address] [id number] [place] [address]- 8170 28 May, 2014 [facility] [place] [facility] [address] [id number] [place] [address]- 7088 May, [facility] [place] [facility] [address] [id number] [place] [address]- 2596 28 May, 2014 [facility] [place] [facility] [address] [id number] [place] [address]- 7639 2014 [facility] [place] [facility] [address] [id number] [place] [address]- 8070 2014 [facility] [place] [facility] [address] [id number] [place] [address]- 4708 2014 [facility] [place] [facility] [address] [id number] [place] [address]- 8180 2014 [facility] [place] [facility] [address] [id number] [place] [address]- 4529 13 May, 2014 [facility] [place] [facility] [address] [id number] [place] [address]- 1442 13 May, 2014 [facility] [place] [facility] [address] [id number] [place] [address]- 9731 May, [facility] [place] [facility] [address] [id number] [place] [address]- 1496 May, [facility] [place] [facility] [address] [id number] [place] [address]- 7737 May, [facility] [place] [facility] [address] [id number] [place] [address]- 4636 May, [facility] [place] [facility] [address] [id number] [place] [address]- 6216 Apr, [facility] [place] [facility] [address] [id number] [place] [address]- 4925 Apr, [facility] [place] [facility] [address] [id number] [place] [address]- 7465 Apr, [facility] [place] [facility] [address] [id number] [place] [address]- 7829 Apr, [facility] [place] [facility] [address] [id number] [place] [address]- 0385 Apr, [facility] [place] [facility] [address] [id number] [place] [address]- 3153 Apr, [facility] [place] [facility] [address] [id number] [place] [address]- 5892 Apr, [facility] [place] [facility] [address] [id number] [place] [address]- 3419 Mar, [facility] [place] [facility] [address] [id number] [place] [address]- 4032 Mar, [facility] [place] [facility] [address] [id number] [place] [address]- 3763 Mar, [facility] [place] [facility] [address] [id number] [place] [address]- 7227 Mar, [facility] [place] [facility] [address] [id number] [place] [address]- 1323 Mar, [facility] [place] [facility] [address] [id number] [place] [address]- 5245 Mar, [facility] [place] [facility] [address] [id number] [place] 3542 Feb, [facility] [place] [facility] [address] [id number] [place] [address]- 6603 Feb, [facility] [place] [facility] [address] [id number] [place] [address]- 7466 Feb, [facility] [place] [facility] [address] [id number] [place] [address]- 4417 Feb, [facility] [place] [facility] [address] [id number] [place] 8641 Feb, [facility] [place] [facility] [address] [id number] [place] [address]- 3850 Feb, [facility] [place] [facility] [address] [id number] [place] [address] Feb, [facility] [place] [facility] [address] [id number] [place] [address] Feb, [facility] [place] [facility] [address] [id number] [place] [address] Jan, [facility] [place] [facility] [address] [id number] [place] [address] Jan, [facility] [place] [facility] [address] [id number] [place] [address] December, [facility] [place] [facility] [address] [id number] [place] [address] December, [facility] [place] [facility] [address] [id number] [place] [address] December, [facility] [place] [facility] [address] [id number] [place] [address] December, [facility] [place] [facility] [address] [id number] [place] [address] December, [facility] [place] [facility] [address] [id number] [place] [address] December, [facility] [address] [id number] [place] [address] December[facility] [place] [facility] [address] [id number] [place] [address] December, [facility] [address] [id number] [place] [address] December, [facility] [address] [id number] [place] [address] December, [facility] [address] [id number] [place] [address] December, [facility] [address] [id number] [place] [address] December, [facility] [address] [id number] [place] [address] Nov, [facility] [address] [id number] [place] [address] Nov, [facility] [place] [facility] [address] [id number] [place] [address] Nov, [facility] [address] [id number] [place] [address] Nov, [facility] [place] [facility] [address] [id number] [place] [address] Nov, [facility] [place] [facility] [address] [id number] [place] [address] Nov, [facility] [place] [facility] [address] [id number] [place] [address] Nov, [facility] [place] [facility] [address] [id number] [place] [address] Nov, [facility] [place] [facility] [address] [id number] [place] [address] Nov, [facility] [place] [facility] [address] [id number] [place] [address] Nov, [facility] [place] [facility] [address] [id number] [place] [address] Nov, [facility] [place] [facility] [address] [id number] [place] [address] Nov, [facility] [place] [facility] [address] [id number] [place] [address] Nov, [facility] [place] [facility] [address] [id number] [place] [address] Oct, [facility] [place] [facility] [address] [id number] [place] [address] Oct, [facility] [place] [facility] [address] [facility] [id number] [place] [address] Sep, [facility] [place] [facility] [address] [id number] [place] [address] Sep, [facility] [place] [facility] [address] [id number] [place] [address] Sep, [facility] [place] [facility] [address] [facility] [id number] [place] [address] Sep, [facility] [place] [facility] [address] [facility] [id number] [place] [address] Sep, [facility] [place] [facility] [address] [id number] [place] [address] Sep, [facility] [place] [facility] [address] [id number] [place] [address] Sep, [facility] [place] [facility] [address] [facility] [id number] [place] [address] 18 Sep, 2013 [facility] [place] [facility] [address] [facility] [id number] [place] [address] 10 Sep, 2013 [facility] [place] [facility] [address] [id number] [place] [address]- 5369 10 Sep, 2013 [facility] [place] [facility] [address] [id number] [place] [address] Sep, [facility] [place] [facility] [address] [id number] [place] [address] 7136 Sep, [facility] [place] [facility] [address] [id number] [place] [address] 4277 Aug, [facility] [place] [facility] [address] [id number] [place] [address] 0601 Aug, [facility] [place] [facility] [address] [id number] [place] [address] 5[address] Aug, [facility] [place] [facility] [address] [id number] [place] [address] 6827 Aug, [facility] [place] [facility] [address] [id number] [place] [address] 4177 Aug, [facility] [place] [facility] [address] [id number] [place] [address] 3740 Aug, [facility] [place] [facility] [address] [id number] [place] [address] Aug, [facility] [place] [facility] [address] [id number] [place] [address] 6598 Aug, [facility] [place] [facility] [address] [id number] [place] [address]- 7663 Aug, [facility] [place] [facility] [address] [id number] [place] [address]- 7495 Aug, [facility] [place] [facility] [address] [id number] [place] [address]- 5140 Aug, [facility] [place] [facility] [address] [id number] [place] [address]- 4757 16 Aug, 2013 [facility] [place] [facility] [address] [id number] [place] [address] 0480 Aug, [facility] [address] [id number] [place] [address]- 6605 Aug, [facility] [place] [facility] [address] [id number] [place] [address]- 6765 Aug, [facility] [place] [facility] [address] [id number] [place] [address]- 6478 Aug, [facility] [place] [facility] [address] [id number] [place] [address]- 8459 Aug, [facility] [place] [facility] [address] [id number] [place] [address]- 0131 Aug, [facility] [place] [facility] [address] [id number] [place] [address]- 5226 Aug, [facility] [place] [facility] [address] [id number] [place] [address]- 2610 Aug, [facility] [place] [facility] [address] [id number], [place] [address] 1571 Aug, [facility] [place] [facility] [address] [id number] [place] [address]- 6797 Aug, [facility] [place] [facility] [address] [id number] [place] [address]- 9977 Aug, [facility] [place] [facility] [address] [id number], [place] [address]- 4978 Jul, [facility] [place] [facility] [address] [id number], [place] [address] 0[address] Jul, [facility] [place] [facility] [address] [id number] [place] [address]- 6675 Jul, [facility] [place] [facility] [address] [id number], [place] [address] 6581 Jul, [facility] [place] [facility] [address] [id number] [place] [address]- 2094 Jul, [facility] [place] [facility] [address] [id number] [place] [address]- 2244 Jul, [facility] [place] [facility] [address] [id number] [place] [address]- 8632 Jun, [facility] [place] [facility] [address] [id number] [place] [address]- 4064 Jun, [facility] [place] [facility] [address] [id number] [place] [address]- 2566 Jun, [facility] [place] [facility] [address] [id number] [place] [address]- 1082 Jun, [facility] [place] [facility] [address] [id number] [place] [address]- 4570 Jun, [facility] [place] [facility] [address] [id number] [place] [address]- 3355 Jun, [facility] [place] [facility] [address] [id number] [place] [address]- 8725 Jun, [facility] [place] [facility] [address] [id number] [place] [address]- 1173 Jun, [facility] [place] [facility] [address] [id number] [place] [address]- 1162 Jun, [facility] [place] [facility] [address] [facility] [id number] [place] [address]- 4841 Jun, [facility] [place] [facility] [address] [id number] [place] [address]- 6376 May, [facility] [place] [facility] [address] [id number] [place] [address]- 5250 May, [facility] [place] [facility] [address] [id number] [place] [address]- 0473 May, [facility] [place] [facility] [address] [id number] [place] [address]- 1549 May, [facility] [place] [facility] [address] [id number] [place] [address]- 6224 May, [facility] [place] [facility] [address] [id number] [place] [address]- 7173 24 May, 2013 [facility] [place] [facility] [address] [id number] [place] [address]- 1252 24 May, 2013 [facility] [place] [facility] [address] [id number] [place] [address]- 5555 May, [facility] [place] [facility] [address] [id number] [place] [address]- 4999 May, [facility] [address] [id number] [place] [address]- 7490 May, [facility] [place] [facility] [address] [id number] [place] [address]- 8387 17 May, 2013 [facility] [address] [id number] [place] [address]- 6536 16 May, 2013 [facility] [place] [facility] [address] [id number] [place] [address]- 9365 May, [facility] [place] [facility] [address] [id number] [place] [address]- 1573 May, [facility] [place] [facility] [address] [id number] [place] [address]- 6828 16 May, 2013 [facility] [place] [facility] [address] [id number] [place] [address]- 3692 24 Apr, 2013 [facility] [place] [facility] [address] [id number], [place] [address] 2006 23 Apr, 2013 [facility] [place] [facility] [address] [id number] [place] [address]- 6915 Apr, [facility] [place] [facility] [address] [id number] [place] [address]- 8505 Mar, [facility] [place] [facility] [address] [id number] [place] [address]- 8210 Mar, [facility] [place] [facility] [address] [id number] [place] [address]- 8698 Mar, [facility] [place] [facility] [address] [id number] [place] [address]- 8233 Mar, [facility] [place] [facility] [address] [id number] [place] [address]- 2971 Mar, [facility] [place] [facility] [address] [id number] [place] [address]- 2837 Mar, [facility] [place] [facility] [address] [id number] [place] [address]- 7025 Feb, [facility] [place] [facility] [address] [id number] [place] [address]- 9244 Feb, [facility] [place] [facility] [address] [id number] [place] [address]- 8890 Feb, [facility] [place] [facility] [address] [id number] [place] [address]- 4546 Feb, [facility] [place] [facility] [address] [id number] [place] [address]- 0322 Feb, [facility] [place] [facility] [address] [id number] [place] [address]- 7396 Feb, [facility] [place] [facility] [address] [id number] [place] [address]- 7735 Feb, [facility] [place] [facility] [address] [id number] [place] [address]- 0001 Feb, [facility] [place] [facility] [address] [id number] [place] [address]- 3654 Feb, [facility] [place] [facility] [address] [id number] [place] [address]- 7907 Feb, [facility] [place] [facility] [address] [id number] [place] [address]- 0145 Jan, [facility] [place] [facility] [address] [id number] [place] [address]- 9694 Jan, [facility] [place] [facility] [address] [id number] [place] [address]- 5594 Jan, [facility] [address] [id number] [place] [address]- 2183 Jan, [facility] [address] [id number] [place] [address]- 2480 December, [facility] [address] [id number] [place] [address]- 7279 December, [facility] [address] [id number] [place] [address]- 3123 December, [facility] [address] [id number] [place] [address]- 3466 Nov, [facility] [address] [id number] [place] [address]- 4380 Nov, [facility] [address] [id number] [place] [address]- 5831 Nov, [facility] [address] [id number] [place] [address]- 6166 Nov, [facility] [address] [id number] [place] [address]- 1066 Nov, [facility] [address] [id number] [place] [address]- 2643 Nov, [facility] [address] [id number] [place] [address]- 7912 Oct, [facility] [address] [id number] [place] [address]- 0705 Oct, [facility] [place] [facility] [address] [id number] [place] [address]- 6464 Oct, [facility] [address] [id number] [place] [address]- 9306 Sep, [facility] [address] [id number] [place] [address]- 2944 Sep, [facility] [place] [facility] [address] [id number] [place] [address]- 1781 Sep, [facility] [place] [facility] [address] [id number] [place] [address]- 3217 Aug, [facility] [place] [facility] [address] [id number] [place] [address]- 8504 Aug, [facility] [place] [facility] [address] [id number] [place] [address]- 7013 Aug, [facility] [place] [facility] [address] [id number] [place] [address]- 4057 Aug, [facility] [place] [facility] [address] [id number] [place] [address]- 8940 Jul, [facility] [place] [facility] [address] [id number] [place] [address]- 7091 Jul, [facility] [place] [facility] [address] [id number] [place] [address]- 9911 Jul, [facility] [place] [facility] [address] [id number] [place] [address]- 9828 Jul, [facility] [place] [facility] [address] [id number] [place] [address]- 6208 Jun, [facility] [place] [facility] [address] [id number], [place] [address]- 7080 Jun, [facility] [place] [facility] [address] [id number], [place] [address]- 8838 Jun, [facility] [place] [facility] [address] [id number] [place] [address]- 8633 Jun, [facility] [place] [facility] [address] [id number], [place] [address]- 4523 Jun, [facility] [place] [facility] [address] [id number] [place] [address]- 2110 Jun, [facility] [place] [facility] [address] [id number] [place] [address]- 2216 02 Jun, 2012 [facility] [place] [facility] [address] [id number] [place] [address]- 4274 02 Jun, 2012 [facility] [place] [facility] [address] [id number] [place] [address]- 4535 30 May, 2012 [facility] [place] [facility] [address] [id number] [place] [address]- 5182 30 May, 2012 [facility] [place] [facility] [address] [id number] [place] [address]- 2825 18 May, 2012 [facility] [place] [facility] [address] [id number] [place] 18 May, 2012 [facility] [place] [facility] [address] [id number] [place] [address]- 8130 2012 [facility] [place] [facility] [address] [facility] [id number] [place] [address]- 6801 13 May, 2012 [facility] [place] [facility] [address] [id number] [place] [address]- 9577 11 May, 2012 [facility] [place] [facility] [address] [facility] [id number] [place] [address]- 1617 11 May, 2012 [facility] [place] [facility] [address] [facility] [id number] [place] [address]- 1333 10 May, 2012 [facility] [place] [facility] [address] [facility] [id number] [place] [address]- 8430 08 May, 2012 [facility] [place] [facility] [address] [id number] [place] [address]- 9603 24 Sep, 2011 [facility] [place] [facility] [address] [id number] [place] [address]- 0948 19 Sep2011 [facility] [place] [facility] [address] [facility] [id number] [place] [address]- 2248 18 Sep2011 [facility] [place] [facility] [address] [id number] [place] [address]- 4662 17 Apr, 2012 [facility] [place] [facility] [address] [id number] [place] [address]- 1712 16 Apr, 2012 [facility] [place] [facility] [address] [id number] [place] [address]- 7815 Apr, [facility] [place] [facility] [address] [id number] [place] [address]- 2183 Mar, [facility] [place] [facility] [address] [id number] [place] [address]- 2781 Mar, [facility] [place] [facility] [address] [id number] [place] [address]- 9190 Mar, [facility] [place] [facility] [address] [id number] [place] [address]- 0393 Mar, [facility] [place] [facility] [address] [id number] [place] [address]- 4703 Mar, [facility] [place] [facility] [address] [id number] [place] [address]- 8239 Mar, [facility] [place] [facility] [address] [id number] [place] [address]- 5228 Feb, [facility] [place] [facility] [address] [id number] [place] [address]- 3539 Feb, [facility] [place] [facility] [address] [id number] [place] [address]- 1706 Feb, [facility] [place] [facility] [address] [id number] [place] [address]- 5626 Feb, [facility] [place] [facility] [address] [id number] [place] [address]- 8763 Feb, [facility] [place] [facility] [address] [id number] [place] [address]- 8674 Feb, [facility] [place] [facility] [address] [id number] [place] [address]- 5796 Feb, [facility] [place] [facility] [address] [id number] [place] [address]- 6093 Feb, [facility] [place] [facility] [address] [id number] [place] [address]- 6238 Feb, [facility] [place] [facility] [address] [id number] [place] [address]- 5331 Jan, [facility] [place] [facility] [address] [id number] [place] [address]- 3248 Jan, [facility] [place] [facility] [address] [id number] [place] [address]- 8855 Jan, [facility] [place] [facility] [address] [id number] [place] [address]- 2731 Jan, [facility] [place] [facility] [address] [id number] [place] [address]- 7325 Jan, [facility] [place] [facility] [address] [id number] [place] [address]- 5442 Jan, [facility] [place] [facility] [address] [id number] [place] [address]- 9650 Jan, [facility] [place] [facility] [address] [id number] [place] [address]- 9208 Jan, [facility] [place] [facility] [address] [id number] [place] [address]- 2028 Jan, [facility] [place] [facility] [address] [id number] [place] [address]- 9894 December, [facility] [place] [facility] [address] [id number] [place] [address]- 5729 December, [facility] [place] [facility] [address] [id number] [place] [address]- 9321 December, [facility] [place] [facility] [address] [id number] [place] [address]- 0324 December, [facility] [place] [facility] [address] [id number] [place] [address]- 0185 December, [facility] [place] [facility] [address] [id number] [place] [address]- 5958 December, [facility] [address] [id number] [place] [address]- 0756 December, [facility] [address] [id number] [place] [address]- 8416 December, [facility] [address] [id number] [place] [address]- 5376 December, [facility] [address] [id number] [place] [address]- 5675 December, [facility] [address] [id number] [place] [address]- 8582 Nov, [facility] [address] [id number] [place] [address]- 3755 Nov, [facility] [address] [id number] [place] [address]- 7339 Nov, [facility] [address] [id number] [place] [address]- 4691 Nov, [facility] [address] [id number] [place] [address]- 4199 16 Nov, 2011 [facility] [address] [id number] [place] [address]- 1277 Nov, [facility] [address] [id number] [place] [address]- 2394 Nov, [facility] [address] [id number] [place] [address]- 4610 Nov, [facility] [address] [id number] [place] [address]- 3220 Nov, [facility] [address] [id number] [place] [address]- 7796 Nov, [facility] [address] [id number] [place] [address]- 4042 Oct, [facility] [place] [facility] [address] [id number] [place] [address]- 5481 29 Oct, 2011 [facility] [place] [facility] [address] [id number] [place] [address]- 7276 23 Oct, 2011 [facility] [place] [facility] [address] [id number] [place] [address]- 4702 23 Oct, 2011 [facility] [place] [facility] [address] [id number] [place] [address]- 6231 21 Oct, 2011 [facility] [place] [facility] [address] [id number] [place] [address]- 1293 20 Oct, 2011 [facility] [place] [facility] [address] [id number] [place] [address]- 3884 19 Oct, 2011 [facility] [place] [facility] [address] [id number] [place] [address]- 8018 19 Oct, 2011 [facility] [place] [facility] [address] [id number] [place] [address]- 9445 16 Oct, 2011 [facility] [place] [facility] [address] [id number] [place] [address]- 0599 14 Oct, 2011 [facility] [place] [facility] [address] [id number] [place] [address]- 1688 14 Oct, 2011 [facility] [place] [facility] [address] [id number] [place] [address]- 4207 09 Oct, 2011 [facility] [place] [facility] [address] [id number] [place] [address]- 5420 08 Oct, 2011 [facility] [place] [facility] [address] [id number] [place] [address]- 9793 06 Oct, 2011 [facility] [place] [facility] [address] [id number] [place] [address]- 3286 02 Oct, 2011 [facility] [place] [facility] [address] [id number] [place] [address]- 9318 28 Sep, 2011 [facility] [place] [facility] [address] [id number] [place] [address]- 3246 24 Sep, 2011 [facility] [place] [facility] [address] [id number] [place] [address] 20 Sep, 2011 [facility] [place] [facility] [address] [id number] [place] [address]46 17 Sep, 2011 [facility] [place] [facility] [address] [id number] [place] [address] 2546 16 Sep, 2011 [facility] [place] [facility] [address] [id number] [place] [address] 14 Sep, 2011 [facility] [place] [facility] [address] [id number] [place] [address] 13 Sep, 2011 [facility] [place] [facility] [address] [id number] [place] [address]46 10 Sep, 2011 [facility] [place] [facility] [address] [id number] [place] [address] 06 Sep, 2011 [facility] [place] [facility] [address] [id number] [place] [address] 03 Sep, 2011 [facility] [place] [facility] [address] [id number] [place] [address] Sep, [facility] [place] [facility] [address] [id number] [place] [address] Aug, [facility] [place] [facility] [address] [id number] [place] [address] Aug, [facility] [place] [facility] [address] [id number] [place] [address] Aug, [facility] [place] [facility] [address] [id number] [place] [address] Aug, [facility] [place] [facility] [address] [id number] [place] [address] Aug, [facility] [place] [facility] [address] [id number] [place] [address] 17 Aug, 2011 [facility] [address] [id number] [place] [address] 17 Aug, 2011 [facility] [place] [facility] [address] [id number] [place] [address] 17 Aug, 2011 [facility] [place] [facility] [address] [id number] [place] [address] 16 Aug, 2011 [facility] [place] [facility] [address] [id number] [place] [address] 13 Aug, 2011 [facility] [place] [facility] [address] [id number] [place] [address] 11 Aug, 2011 [facility] [place] [facility] [address] [id number] [place] [address] Aug, [facility] [place] [facility] [address] [id number] [place] [address] Aug, [facility] [place] [facility] [address] [id number] [place] [address] Aug, [facility] [place] [facility] [address] [id number] [place] [address] Aug, [facility] [place] [facility] [address] [id number] [place] [address] Aug, [facility] [place] [facility] [address] [id number] [place] [address] Aug, [facility] [place] [facility] [address] [id number], [place] [address] Jul, [facility] [place] [facility] [address] [id number] [place] [address] Jul, [facility] [place] [facility] [address] [id number] [place] [address] Jul, [facility] [place] [facility] [address] [id number] [place] [address] Jul, [facility] [place] [facility] [address] [id number] [address] Jul, [facility] [address] [id number] [address] Jul, [facility] [id number], [place] [address] Jul, [facility] [id number], [place] [address] Jul, [facility] [id number], [place] [address] Jul, [facility] [id number], [place] [address] Jul, [facility] [id number], [place] [address] Jul, [facility] [id number], [place] [address] Jun, [facility] [address] [id number], [place] [address] Jun, [facility] [address] [id number], [place] [address] Jun, IMMUNIZATIONS No Known Immunizations SOCIAL HISTORY Never Assessed REASON FOR VISIT Repository Medication PLAN OF CARE VITAL SIGNS MEDICATIONS Medication Instructions Dosage Frequency Start Date End Date Duration Status Aciphex 20 MG Orally Once a day 1 tablet 24h 30 days Active Folic Acid 1 MG Orally Once a day 1 tablet 24h 90 days Active Nadolol 20 MG Orally Once a day 1 tablet 24h 30 days Active RESULTS No Results PROCEDURES No [...]
--- OUTSIDE RECORDS SUMMARY | 2018-08-05 03:11 | XMS REPORT ---
Author Author HEATHER FINE Organization [facility] [place] Address [address] [place] [address] Care Team Providers Care Superintendent Colliery Name Role Phone HEATHER FINE Unavailable PROBLEMS Type Condition ICD9-CM Code MLI33-JR Code Onset Dates Condition Status SNOMED Code Problem Unspecified cirrhosis of liver K74.60 Active 664796262 Problem Lymphocytosis D72.820 Active 12301798 Problem Secondary esophageal varices with bleeding I85.11 Active 23616246 Problem Anxiety F41.9 Active 30990666 Problem Asthma J45.909 Active 276362686 Problem Chronic back pain M54.9 Active 745948342 Problem Dysthymia F34.1 Active 39622439 Problem Thrombocytosis D47.3 Active 3655707 Problem Splenomegaly R16.1 Active 44263577 Problem 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 Active 962252330 Problem History of hepatitis C Z86.19 Active [id number] ALLERGIES No Information ENCOUNTERS Encounter Location Date Diagnosis [place] [id number] [place] [address] 11229- 8558 Apr, [place] [address] [place] [id number] [place] [address] 82695- 8472 Mar, Anxiety F41.9 [facility] [place] [id number] [place] [address] 10419- 8732 Mar, [facility] [place] [address] [place] [id number] [place] [address] 67060- 1231 Mar, Right arm pain M79.601 [facility] [place] [address] [place] [id number] [place] [address] 01049- 9014 Mar, Anxiety F41.9 [facility] [place] [address] [place] [id number] [place] [address] 75661- 7104 Feb, [facility] [place] [id number] [place] [address] 47595- 4941 Feb, Chronic back pain M54.9 ; Anxiety F41.9 and Dysuria R30.0 [facility] [place] [address] [place] [id number] [place] [address] 56229- 4085 Feb, [facility] [place] [address] [place] [id number] [place] [address] 09719- 4464 Feb, Anxiety F41.9 [facility] [place] [address] [place] [id number] [place] [address] 66279- 0375 Jan, [place] [address] [place] [id number] [place] [address] 39656- 4080 Jan, Chronic back pain M54.9 and Anxiety F41.9 [place] [address] [place] [id number] [place] [address] 76064- 5320 December, Chronic back pain M54.9 and Anxiety F41.9 [place] [address] [place] [id number] [place] [address] 84908- 4368 Nov, Chronic back pain M54.9 and Anxiety F41.9 [place] [address] [place] [id number] [place] [address] 26055- 5874 Oct, Chronic back pain M54.9 and Anxiety F41.9 [place] [address] [place] [id number] [place] [address] 90165- 9412 Oct, [facility] [place] [address] [place] [id number] [place] [address] 93673- 9339 Sep, Chronic back pain M54.9 ; Anxiety F41.9 ; Pain of left leg M79.605 and Pain in right leg M79.604 [facility] [place] [address] [place] [id number] [place] [address] 51845- 5222 Sep, Anxiety F41.9 and Chronic back pain M54.9 [facility] [place] [address] [place] [id number] [place] [address] 99642- 1165 Sep, [facility] [place] [address] [place] [id number] [place] [address] 35606- 9704 Aug, Anxiety F41.9 [facility] [place] [address] [place] [id number] [place] [address] 72688- 6958 Jul, Anxiety F41.9 [facility] [place] [address] 43279- 7524 Jul, [facility] [place] [address] 31541- 6750 Jul, Viral syndrome B34.9 ; Chronic back pain M54.9 and Dysuria R30.0 [facility] [place] [address] [place] [id number] [place] [address] 27666- 8432 Jun, [facility] [place] [address] [place] [id number] [place] [address] 03648- 5432 Jun, Anxiety F41.9 [facility] [address] [place] [id number] [place] [address] 92140 -5210 Jun, Dysuria R30.0 and Acute cystitis without hematuria N30.00 [facility] [place] [address] [place] [id number] [place] [address] 17553- 1506 Jun, [facility] [place] [address] [place] [id number] [place] [address] 87245- 1764 May, Anxiety F41.9 [facility] [place] [address] [place] [id number] [place] [address] 36671- 5166 May, Anxiety F41.9 [facility] [place] [address] [place] [id number] [place] [address] 60030- 5511 Apr, [facility] [place] [address] 01198- 5715 Apr, Chronic back pain M54.9 and Anxiety F41.9 [facility] [place] [address] [place] [id number] [place] [address] 67541- 5112 Mar, [facility] [place] [address] [address] 1656 Mar, [facility] [place] [address] [place] [id number] [place] [address] 62782- 9525 Mar, Well woman exam Z01.419 ; Cervical cancer screening Z12.4 ; Breast cancer screening Z12.31 and Colon cancer screening Z12.11 [facility] [place] [address] [place] [id number] [place] [address] 53490- 8715 Mar, Chronic back pain M54.9 and Anxiety F41.9 [facility] [place] [address] [place] [id number] [place] [address] 53232- 7190 Mar, [facility] [place] [address] [place] [id number] [place] [address] 49114- 0516 Feb, Chronic back pain M54.9 and Anxiety F41.9 [facility] [place] [address] [place] [id number] [place] [address] 14693- 8622 Feb, [facility] [place] [address] [place] [id number] [place] [address] 96167- 3594 Feb, [facility] [place] [address] [place] [id number] [place] [address] 87910- 6725 Jan, Chronic back pain M54.9 and Anxiety F41.9 [facility] [place] [address] [place] [address] 13386- 9496 Jan, [facility] [place] [address] [place] [address] 31975- 4178 Jan, [facility] [place] [address] [address]- 8373 December, Chronic back pain M54.9 and Anxiety F41.9 [facility] [place] [address] [address]- 9771 Nov, Chronic back pain M54.9 and Anxiety F41.9 [facility] [place] [address] [place] [id number] [place] [address] 34117- 7097 Oct, Chronic back pain M54.9 and Anxiety F41.9 [facility] [place] [address] [place] [id number] [place] [address] 74588- 0555 Oct, Chronic back pain M54.9 [facility] [place] [address] [place] [id number] [place] [address] 16981- 2329 Sep, Anxiety F41.9 and Chronic back pain M54.9 [facility] [place] [address] [place] [id number] [place] [address] 80929- 4529 Aug, Anxiety F41.9 and Chronic back pain M54.9 [facility] [place] [address] 02899- 7856 Aug, [facility] [place] [address] [place] [id number] [place] [address] 27366- 8791 Jul, Chronic back pain M54.9 and Anxiety F41.9 [facility] [place] [address] [place] [id number] [place] [address] 10378- 0410 Jul, Anxiety F41.9 and Chronic back pain M54.9 [facility] [address] [place] [address] Jul, [facility] [place] [address] [place] [id number] [place] [address] 68452- 9132 Jul, Anxiety F41.9 [facility] [place] [address] [place] [id number] [place] [address] 23647- 4208 Jul, Anxiety F41.9 and Dysuria R30.0 [facility] [place] [address] [place] [id number] [place] [address] 43232- 0213 Jul, Chronic back pain M54.9 and Anxiety F41.9 [facility] [place] [address] [place] [id number] [place] [address] 69006- 3465 Jun, Chronic back pain M54.9 [facility] [place] [address] [place] [id number] [place] [address] 16018- 5782 Jun, Chronic back pain M54.9 [facility] [place] [address] [facility] [id number], [place] [address]- 0618 May, Anxiety F41.9 [facility] [place] [address] [facility] [id number] [place] [address] 12950- 0806 May, Chronic back pain M54.9 [facility] [place] [id number] [place] [address] 61670- 0747 Apr, [facility] [place] [address] [facility] [id number] [place] [address] 23384- 0105 Apr, [facility] [place] [address] [facility] [id number] [place] [address] 45667- 0380 Apr, [facility] [place] [address] [facility] [id number] [place] [address] 87207- 9475 Apr, Chronic back pain M54.9 [facility] [place] [address] [facility] [id number] [place] [address] 97898- 3102 Mar, Chronic back pain M54.9 [facility] [place] [address] [facility] [id number] [place] [address] 14695- 1817 Feb, Grief F43.20 [facility] [place] [address] [facility] [id number] [place] [address] 02170- 8666 Feb, Chronic back pain M54.9 and Anxiety F41.9 [facility] [place] [address] [facility] [id number] [place] [address] 48803- 8610 Feb, Chronic back pain M54.9 [facility] [place] [address] [facility] [id number], [place] [address]- 1790 Jan, Chronic back pain M54.9 [facility] [place] [address] [facility] [id number] [place] [address] 37629- 9652 December, [facility] [place] [address] [facility] [id number] [place] [address] 65593- 9826 December, Grief F43.20 [facility] [place] [address] [place] [id number] [place] [address] 48366- 2376 Nov, [facility] [place] [address] [place] [id number] [place] [address] 71345- 4903 Oct, Cervicalgia M54.2 ; Secondary esophageal varices with bleeding I85.11 and Mouth pain K13.79 [facility] [place] [address] [place] [id number] [place] [address] 36665- 8011 Oct, [facility] [place] [address] [place] [id number] [place] [address] 54044- 7696 14 Oct, 2015 [facility] [place] [address] [place] [id number] [place] [address] 32908- 2449 Sep, [facility] [place] [address] [place] [id number] [place] [address] 01989- 9217 Sep, Acute maxillary sinusitis, recurrence not specified J01.00 [facility] [place] [address] [place] [id number] [place] [address] 12384- 1191 Aug, [facility] [place] [address] [place] [id number] [place] [address] 55475- 8533 Aug, [facility] [place] [address] [place] [id number] [place] [address] 19230- 0339 Aug, Dysuria R30.0 and Chronic back pain M54.9 [facility] [place] [address] [place] [id number] [place] [address] 49600- 0838 Jul, [facility] [place] [address] [place] [id number] [place] [address] 77487- 5088 Jul, [facility] [place] [address] [place] [id number] [place] [address] 99762- 8647 Jul, [facility] [place] [address] [place] [id number] [place] [address] 46308- 1735 Jul, Chronic back pain M54.9 [facility] [place] [address] [place] [id number] [place] [address] 32072- 7358 Jul, Dysthymia F34.1 and Chronic back pain M54.9 [facility] [place] [address] [place] [id number] [place] [address] 26481- 8495 Jun, [facility] [place] [address] [place] [id number] [place] [address] 12328- 0574 Jun, [facility] [place] [address] [place] [id number] [place] [address] 84434- 2571 May, [facility] [place] [address] [place] [id number] [place] [address] 23342- 0247 May, [facility] [place] [address] [place] [id number] [place] [address] 57337- 7959 May, [facility] [place] [address] [place] [id number] [place] [address] 49446- 5939 May, Encounter for immunization Z23 [facility] [place] [address] [place] [id number] [place] [address] 88332- 0196 Apr, [facility] [place] [address] [id number] [place] [address] 14635- 8878 Apr, [facility] [place] [address] [place] [id number] [place] [address] 68038- 2920 Mar, [facility] [place] [id number] [place] [address] 82059- 6831 Mar, Back pain 724.5 [facility] [place] [id number] [place] [address] 34549- 9227 Mar, Cough 786.2 and Back pain 724.5 [facility] [place] [id number] [place] [address] 36439- 0609 Mar, [facility] [place] [id number] [place] [address] 05039- 3964 Mar, [facility] [place] [id number] [place] [address] 14942- 3687 December, [facility] [place] [id number] [place] [address] 29662- 5667 December, [facility] [place] [facility] [address] [id number] [place] [address]- 0080 Nov, [facility] [place] [facility] [address] [id number] [place] [address]- 1198 Nov, [facility] [place] [facility] [address] [facility] [id number] [place] [address]- 6624 Oct, [facility] [place] [facility] [address] [id number] [place] [address]- 7666 Oct, [facility] [place] [facility] [address] [id number] [place] [address]- 8907 Sep, [facility] [place] [facility] [address] [id number] [place] [address]- 1840 Sep, [facility] [place] [facility] [address] [id number] [place] [address]- 8158 Sep, [facility] [place] [facility] [address] [facility] [id number] [place] [address]- 8765 Sep, [facility] [place] [facility] [address] [id number] [place] [address]- 0301 Sep, [facility] [place] [facility] [address] [facility] [id number] [place] [address]- 7239 Sep, [facility] [place] [facility] [address] [facility] [id number] [place] [address]- 0689 Sep, [facility] [place] [facility] [address] [facility] [id number] [place] [address]- 3352 Sep, [facility] [place] [facility] [address] [id number] [place] [address]- 7079 Aug, [facility] [place] [facility] [address] [facility] [id number] [place] [address]- 6284 Aug, [facility] [place] [facility] [address] [facility] [id number] [place] 9025 Aug, [facility] [place] [facility] [address] [id number] [place] [address] 13 Aug, 2014 [facility] [place] [facility] [address] [id number] [place] [address] 13 Aug, 2014 [facility] [place] [facility] [address] [id number] [place] [address] 12 Aug, 2014 [facility] [place] [facility] [address] [id number] [place] [address] Aug, [facility] [place] [facility] [address] [id number] [place] [address] Jul, [facility] [place] [facility] [address] [id number] [place] [address] Jul, [facility] [place] [facility] [address] [id number] [place] [address] Jul, [facility] [place] [facility] [address] [id number] [place] [address] 18 Jul, 2014 [facility] [place] [facility] [address] [id number] [place] [address] Jul, [facility] [place] [facility] [address] [id number] [place] [address] Jul, [facility] [place] [facility] [address] [id number] [place] [address] Jul, [facility] [place] [facility] [address] [id number], [place] [address] 05 Jul, 2014 [facility] [place] [facility] [address] [id number] [place] [address] Jun, [facility] [place] [facility] [address] [id number] [place] [address] Jun, [facility] [place] [facility] [address] [id number] [place] [address] Jun, [facility] [place] [facility] [address] [id number], [place] [address] 07 Jun, 2014 [facility] [place] [facility] [address] [id number] [place] [address] 07 Jun, 2014 [facility] [place] [facility] [address] [id number] [place] [address] Jun, [facility] [place] [facility] [address] [id number] [place] [address] Jun, [facility] [place] [facility] [address] [id number] [place] [address] 28 May, 2014 [facility] [place] [facility] [address] [id number] [place] [address] 28 May, 2014 [facility] [place] [facility] [address] [id number] [place] [address] 28 May, 2014 [facility] [place] [facility] [address] [id number] [place] [address] May, [facility] [place] [facility] [address] [id number] [place] [address] 2014 [facility] [place] [facility] [address] [id number] [place] [address] [address] 2014 [facility] [place] [facility] [address] [id number] [place] [address]- 95[address] 2014 [facility] [place] [facility] [address] [id number], [place] [address] 2014 [facility] [place] [facility] [address] [id number], [place] [address]- [address] 13 May, 2014 [facility] [place] [facility] [address] [id number], [place] [address] 13 May, 2014 [facility] [place] [facility] [address] [facility] [id number], [place] [address]- [address] 10 May, 2014 [facility] [place] [facility] [address] [id number], [place] [address] 10 May, 2014 [facility] [place] [facility] [address] [id number] [place] [address] May, [facility] [place] [facility] [address] [id number] [place] [address] May, [facility] [place] [facility] [address] [id number] [place] [address] Apr, [facility] [place] [facility] [address] [id number] [place] [address] Apr, [facility] [place] [facility] [address] [id number] [place] [address] Apr, [facility] [place] [facility] [address] [id number] [place] [address] Apr, [facility] [place] [facility] [address] [id number] [place] [address] Apr, [facility] [place] [facility] [address] [id number] [place] [address] Apr, [facility] [place] [facility] [address] [id number] [place] [address] Apr, [facility] [place] [facility] [address] [id number] [place] [address] Mar, [facility] [place] [facility] [address] [id number] [place] [address] Mar, [facility] [place] [facility] [address] [id number] [place] [address] Mar, [facility] [place] [facility] [address] [id number] [place] [address] Mar, [facility] [place] [facility] [address] [id number] [place] [address] Mar, [facility] [place] [facility] [address] [id number] [place] [address] Mar, [facility] [place] [facility] [address] [address] [id number] [place] [address] Feb, [facility] [place] [facility] [address] [id number] [place] [address] 3209 Feb, [facility] [place] [facility] [address] [id number] [place] [address] 8403 Feb, [facility] [place] [facility] [address] [id number] [place] [address] 3215 Feb, [facility] [place] [facility] [address] [id number] [place] [address] 7599 Feb, [facility] [place] [facility] [address] [id number] [place] [address]- 8091 Feb, [facility] [place] [facility] [address] [id number] [place] [address]- 3798 Feb, [facility] [place] [facility] [address] [id number] [place] [address]- 7204 Feb, [facility] [place] [facility] [address] [id number] [place] [address]- 2878 Jan, [facility] [place] [facility] [address] [id number] [place] [address]- 3191 Jan, [facility] [place] [facility] [address] [id number] [place] [address]- 0765 December, [facility] [place] [facility] [address] [id number] [place] [address]- 7952 December, [facility] [place] [facility] [address] [id number] [place] [address]- 9092 December, [facility] [place] [facility] [address] [id number] [place] [address]- 5803 December, [facility] [place] [facility] [address] [id number] [place] [address]- 2511 December, [facility] [place] [facility] [address] [id number] [place] [address]- 4276 December, [facility] [place] [facility] [address] [id number] [place] [address]- 7795 December, [facility] [place] [facility] [address] [id number] [place] [address]- 2516 December, [facility] [place] [facility] [address] [id number] [place] [address]- 5968 December, [facility] [place] [facility] [address] [id number] [place] [address]- 1339 December, [facility] [place] [facility] [address] [id number] [place] [address]- 2219 December, [facility] [place] [facility] [address] [id number] [place] [address]- 6728 December, [facility] [place] [facility] [address] [id number] [place] [address]- 8117 Nov, [facility] [place] [facility] [address] [id number] [place] [address]- 8850 Nov, [facility] [place] [facility] [address] [id number] [place] [address] 1956 Nov, [facility] [place] [facility] [address] [id number] [place] [address]- 8268 Nov, [facility] [place] [facility] [address] [id number] [place] [address]- 1144 Nov, [facility] [place] [facility] [address] [id number] [place] [address]- 8786 Nov, [facility] [place] [facility] [address] [id number] [place] [address]- 0774 Nov, [facility] [place] [facility] [address] [id number] [place] [address]- 0725 Nov, [facility] [place] [facility] [address] [id number] [place] [address]- 3816 Nov, [facility] [place] [facility] [address] [id number] [place] [address]- 6736 Nov, [facility] [place] [facility] [address] [id number] [place] [address]- 6555 Nov, [facility] [place] [facility] [address] [id number] [place] [address]- 8067 Nov, [facility] [place] [facility] [address] [id number] [place] [address]- 0554 Nov, [facility] [place] [facility] [address] [id number] [place] [address]- 0617 Oct, [facility] [place] [facility] [address] [id number] [place] [address]- 8248 Oct, [facility] [place] [facility] [address] [id number] [place] [address]- 0825 Sep, [facility] [place] [facility] [address] [id number] [place] [address]- 2219 Sep, [facility] [place] [facility] [address] [id number] [place] [address]- 5217 Sep, [facility] [place] [facility] [address] [id number] [place] [address]- 8699 Sep, [facility] [place] [facility] [address] [id number] [place] [address]- 5307 Sep, [facility] [place] [facility] [address] [id number] [place] [address]- 8167 Sep, [facility] [place] [facility] [address] [id number] [place] [address]- 6290 Sep, [facility] [place] [facility] [address] [id number] [place] [address]- 6367 18 Sep, 2013 [facility] [place] [facility] [address] [id number] [place] [address]- 2751 Sep, [facility] [place] [facility] [address] [id number] [place] [address]- 6358 Sep, [facility] [place] [facility] [address] [id number] [place] [address]- 7151 Sep, [facility] [address] [id number] [place] [address]- 0115 Sep, [facility] [place] [facility] [address] [id number] [place] [address]- 4392 Aug, [facility] [address] [id number] [place] [address]- 0190 Aug, [facility] [address] [id number] [place] [address]- 1354 Aug, [facility] [address] [id number] [place] [address]- 8260 Aug, [facility] [address] [id number] [place] [address] 9242 Aug, [facility] [address] [id number] [place] [address]- 6551 Aug, [facility] [address] [id number] [place] [address]- 8498 Aug, [facility] [address] [id number] [place] [address]- 9261 Aug, [facility] [address] [id number] [place] [address]- 9019 Aug, [facility] [address] [id number] [place] [address]- 6761 Aug, [facility] [address] [id number] [place] [address]- 2264 Aug, [facility] [place] [facility] [address] [id number] [place] [address]- 2011 Aug, [facility] [place] [facility] [address] [id number] [place] [address]- 0653 Aug, [facility] [address] [id number] [place] [address]- 7402 Aug, [facility] [address] [id number] [place] [address]- 8027 Aug, [facility] [place] [facility] [address] [id number] [place] [address]- 3005 Aug, [facility] [place] [facility] [address] [id number] [place] [address]- 0606 Aug, [facility] [place] [facility] [address] [id number] [place] [address]- 6331 Aug, [facility] [place] [facility] [address] [id number] [place] [address]- 0732 Aug, [facility] [place] [facility] [address] [id number] [place] [address]- 0993 Aug, [facility] [place] [facility] [address] [id number] [place] [address]- 7666 Aug, [facility] [place] [facility] [address] [id number] [place] [address]- 4169 Aug, [facility] [place] [facility] [address] [id number] [place] [address]- 0874 Aug, [facility] [place] [facility] [address] [id number], [place] [address]- 5481 Jul, [facility] [place] [facility] [address] [id number], [place] [address]- 8601 Jul, [facility] [place] [facility] [address] [id number], [place] [address]- 6070 Jul, [facility] [place] [facility] [address] [id number], [place] [address]- 6291 Jul, [facility] [place] [facility] [address] [id number], [place] [address]- 0627 Jul, [facility] [place] [facility] [address] [id number], [place] [address]- 6847 Jul, [facility] [place] [facility] [address] [id number], [place] [address]- 6873 Jun, [facility] [place] [facility] [address] [id number] [place] [address]- 9562 Jun, [facility] [place] [facility] [address] [id number], [place] [address]- 3358 Jun, [facility] [place] [facility] [address] [facility] [id number] [place] [address]- 8887 Jun, [facility] [place] [facility] [address] [id number], [place] [address]- 4208 Jun, [facility] [place] [facility] [address] [facility] [id number] [place] [address], [place] [address]- 2412 Jun, [facility] [place] [facility] [address] [id number] [place] [address]- 8165 Jun, [facility] [place] [facility] [address] [facility] [id number], [place] [address]- 8425 Jun, [facility] [place] [facility] [address] [facility] [id number], [place] [address]- 9251 Jun, [facility] [place] [facility] [address] [id number], [place] [address]- 3192 Jun, [facility] [place] [facility] [address] [facility] [id number], [place] [address]- 4686 May, [facility] [place] [facility] [address] [facility] [id number], [place] [address]- 9696 May, [facility] [place] [facility] [address] [facility] [id number], [place] [address]- 7917 May, [facility] [place] [facility] [address] [facility] [id number], [place] [address]- 2401 May, [facility] [place] [facility] [address] [facility] [id number], [place] [address]- 9536 May, [facility] [place] [facility] [address] [facility] [id number], [place] [address]- 0875 May, [facility] [place] [facility] [address] [id number] [place] [address]- 6434 24 May, 2013 [facility] [place] [facility] [address] [id number] [place] [address]- 1155 22 May, 2013 [facility] [place] [facility] [address] [id number] [place] [address]- 6416 May, [facility] [place] [facility] [address] [id number] [place] [address]- 1604 21 May, 2012 [facility] [place] [facility] [address] [id number] [place] [address]- 2018 17 May, 2012 [facility] [place] [facility] [address] [id number] [place] [address]- 3786 16 May, 2013 [facility] [place] [facility] [address] [id number] [place] [address]- 4648 16 May, 2013 [facility] [place] [facility] [address] [id number] [place] [address]- 4673 16 May, 2013 [facility] [place] [facility] [address] [id number] [place] [address]- 8401 16 May, 2013 [facility] [place] [facility] [address] [id number] [place] [address]- 6920 24 Apr, 2013 [facility] [place] [facility] [address] [id number] [place] [address]- 2613 23 Apr, 2013 [facility] [place] [facility] [address] [id number] [place] [address]- 0095 03 Apr, 2013 [facility] [place] [facility] [address] [id number] [place] [address]- 3627 Mar, [facility] [place] [facility] [address] [id number] [place] [address]- 7330 Mar, [facility] [place] [facility] [address] [id number] [place] [address]- 6935 Mar, [facility] [place] [facility] [address] [id number] [place] 1673 Mar, [facility] [place] [facility] [address] [id number] [place] [address]- 0214 Mar, [facility] [place] [facility] [address] [id number] [place] [address]- 2877 Mar, [facility] [place] [facility] [address] [id number] [place] [address]- 0132 Feb, [facility] [place] [facility] [address] [id number] [place] [address]- 6059 Feb, [facility] [place] [facility] [address] [id number] [place] [address]- 4694 Feb, [facility] [place] [facility] [address] [id number] [place] [address]- 9692 Feb, [facility] [place] [facility] [address] [id number] [place] [address]- 2063 Feb, [facility] [place] [facility] [address] [id number] [place] [address]- 7204 Feb, [facility] [place] [facility] [address] [id number] [place] [address]- 4196 Feb, [facility] [place] [facility] [address] [id number] [place] [address]- 8121 Feb, [facility] [place] [facility] [address] [id number] [place] [address]- 7376 Feb, [facility] [place] [facility] [address] [id number] [place] [address]- 2910 Feb, [facility] [place] [facility] [address] [id number] [place] [address]- 4300 Jan, [facility] [place] [facility] [address] [id number] [place] [address]- 6752 Jan, [facility] [place] [facility] [address] [id number] [place] [address]- 3304 Jan, [facility] [place] [facility] [address] [id number] [place] [address]- 1948 Jan, [facility] [address] [id number] [place] [address]- 1003 December, [facility] [address] [id number] [place] [address]- 4367 December, [facility] [address] [id number] [place] [address]- 2289 December, [facility] [address] [id number] [place] [address]- 4957 Nov, [facility] [address] [id number] [place] [address]- 9177 Nov, [facility] [address] [id number] [place] [address]- 4584 Nov, [facility] [address] [id number] [place] [address]- 2389 Nov, [facility] [address] [id number] [place] [address]- 1799 Nov, [facility] [address] [id number] [place] [address]- 6704 Nov, [facility] [address] [id number] [place] [address]- 8828 Oct, [facility] [place] [facility] [address] [id number] [place] [address]- 8074 Oct, [facility] [place] [facility] [address] [id number] [place] [address]- 2960 Oct, [facility] [place] [facility] [address] [id number] [place] [address]- 8408 Sep, [facility] [place] [facility] [address] [id number] [place] [address]- 0736 Sep, [facility] [place] [facility] [address] [id number] [place] [address]- 1236 Sep, [facility] [address] [id number] [place] [address]- 4308 Aug, [facility] [place] [facility] [address] [id number] [place] [address]- 9442 Aug, [facility] [place] [facility] [address] [id number] [place] [address]- 8065 Aug, [facility] [place] [facility] [address] [id number] [place] [address]- 3852 Aug, [facility] [place] [facility] [address] [id number] [place] [address]- 3456 Jul, [facility] [place] [facility] [address] [id number] [place] [address]- 3410 Jul, [facility] [place] [facility] [address] [id number] [place] [address]- 7191 Jul, [facility] [place] [facility] [address] [id number] [place] [address]- 0766 Jul, [facility] [place] [facility] [address] [id number] [place] [address]- 4304 Jun, [facility] [place] [facility] [address] [id number], [place] [address]- 8138 Jun, [facility] [place] [facility] [address] [id number], [place] [address]- 7808 Jun, [facility] [place] [facility] [address] [id number], [place] [address]- 2436 Jun, [facility] [place] [facility] [address] [id number] [place] [address]- 3698 Jun, [facility] [place] [facility] [address] [id number], [place] [address]- 6384 Jun, [facility] [place] [facility] [address] [facility] [id number], [place] [address]- 8799 Jun, [facility] [place] [facility] [address] [id number], [place] [address]- 8427 02 Jun, 2012 [facility] [place] [facility] [address] [id number] [place] [address]- 8538 30 May, 2012 [facility] [place] [facility] [address] [id number] [place] [address]- 2243 30 May, 2012 [facility] [place] [facility] [address] [facility] [id number] [place] [address]- 6298 18 May, 2012 [facility] [place] [facility] [address] [id number] [place] [address]- 9884 18 May, 2012 [facility] [place] [facility] [address] [id number] [place] [address]- 0814 2012 [facility] [place] [facility] [address] [facility] [id number] [place] [address]- 2379 13 May, 2012 [facility] [place] [facility] [address] [facility] [id number] [place] [address]- 8827 11 May, 2012 [facility] [place] [facility] [address] [facility] [id number] [place] [address]- 4708 11 May, 2012 [facility] [place] [facility] [address] [facility] [id number] [place] [address]- 9280 10 May, 2012 [facility] [place] [facility] [address] [facility] [id number] [place] [address]- 2755 08 May, 2012 [facility] [place] [facility] [address] [facility] [id number], [place] [address]- 9627 24 Sep, 2011 [facility] [place] [facility] [address] [facility] [id number], [place] [address]- 1819 19 Sep, 2011 [facility] [place] [facility] [address] [id number] [place] [address]- 2049 18 Sep, 2011 [facility] [place] [facility] [address] [facility] [id number] [place] [address]- 0130 17 Sep, 2011 [facility] [place] [facility] [address] [facility] [id number] [place] [address]- 1395 16 Sep, 2011 [facility] [place] [facility] [address] [id number] [place] [address]- 8795 Apr, [facility] [place] [facility] [address] [id number] [place] [address]- 6082 Mar, [facility] [place] [facility] [address] [id number] [place] [address]- 4326 Mar, [facility] [place] [facility] [address] [id number] [place] [address]- 9956 Mar, [facility] [place] [facility] [address] [id number] [place] [address]- 4956 Mar, [facility] [place] [facility] [address] [id number] [place] [address]- 7517 Mar, [facility] [place] [facility] [address] [id number] [place] [address]- 2453 Mar, [facility] [place] [facility] [address] [id number] [place] [address]- 5376 Feb, [facility] [place] [facility] [address] [id number] [place] [address]- 9354 Feb, [facility] [place] [facility] [address] [id number] [place] [address]- 7968 Feb, [facility] [place] [facility] [address] [id number] [place] [address]- 5297 Feb, [facility] [place] [facility] [address] [id number] [place] [address]- 6000 Feb, [facility] [place] [facility] [address] [id number] [place] [address]- 4915 Feb, [facility] [place] [facility] [address] [id number] [place] [address]- 1506 Feb, [facility] [place] [facility] [address] [id number] [place] [address]- 5666 Feb, [facility] [place] [facility] [address] [id number] [place] [address]- 0502 Feb, [facility] [place] [facility] [address] [id number] [place] [address]- 4763 Jan, [facility] [place] [facility] [address] [id number] [place] [address]- 2964 Jan, [facility] [place] [facility] [address] [id number] [place] [address]- 6439 Jan, [facility] [place] [facility] [address] [id number] [place] [address]- 0518 Jan, [facility] [place] [facility] [address] [id number] [place] [address] Jan, [facility] [place] [facility] [address] [id number] [place] [address] Jan, [facility] [place] [facility] [address] [id number] [place] [address] Jan, [facility] [place] [facility] [address] [id number] [place] [address] 84[address] Jan, [facility] [place] [facility] [address] [id number] [place] [address] Jan, [facility] [place] [facility] [address] [id number] [place] [address] December, [facility] [place] [facility] [address] [id number] [place] [address] December, [facility] [place] [facility] [address] [id number], [place] [address] December, [facility] [place] [facility] [address] [id number] [place] [address] December, [facility] [place] [facility] [address] [id number] [place] [address] December, [facility] [place] [facility] [address] [id number] [place] [address] 78[address] December, [facility] [place] [facility] [address] [id number] [place] [address] December, [facility] [address] [id number] [place] [address] December, [facility] [place] [facility] [address] [id number] [place] [address] December, [facility] [address] [id number] [place] [address]368 December, [facility] [place] [facility] [address] [id number] [place] [address] Nov, [facility] [address] [id number] [place] [address] Nov, [facility] [place] [facility] [address] [id number] [place] [address] Nov, [facility] [address] [id number] [place] [address]185 Nov, [facility] [address] [id number] [place] [address] 16 Nov, 2011 [facility] [place] [facility] [address] [id number] [place] [address] 3098 Nov, [facility] [address] [id number] [place] [address] Nov, [facility] [place] [facility] [address] [id number] [place] [address] 8614 Nov, [facility] [place] [facility] [address] [id number] [place] [address] Nov, [facility] [place] [facility] [address] [id number] [place] [address] 44[address] Nov, [facility] [place] [facility] [address] [id number] [place] [id number] [address] Oct, [facility] [place] [facility] [address] [id number] [place] [address] Oct, [facility] [place] [facility] [address] [id number] [place] [address] 9692 23 Oct, 2011 [facility] [place] [facility] [address] [id number] [place] [address] 9796 23 Oct, 2011 [facility] [place] [facility] [address] [id number] [place] [address]296 21 Oct, 2011 [facility] [place] [facility] [address] [id number] [place] [address] 1176 20 Oct, 2011 [facility] [place] [facility] [address] [id number] [place] [address]- [address]38 19 Oct, 2011 [facility] [place] [facility] [address] [id number] [place] [address] 1116 19 Oct, 2011 [facility] [place] [facility] [address] [id number] [place] [address] 6060 16 Oct, 2011 [facility] [place] [facility] [address] [id number] [place] [address] 7210 14 Oct, 2011 [facility] [place] [facility] [address] [id number] [place] [address] 14 Oct, 2011 [facility] [place] [facility] [address] [id number] [place] [address]170 09 Oct, 2011 [facility] [place] [facility] [address] [id number] [place] [address] 2218 08 Oct, 2011 [facility] [place] [facility] [address] [id number] [place] [address]756 06 Oct, 2011 [facility] [place] [facility] [address] [id number] [place] [address]- 9501 02 Oct, 2011 [facility] [place] [facility] [address] [id number] [place] [address] 28 Sep, 2011 [facility] [place] [facility] [address] [id number] [place] [address]- 8242 24 Sep, 2011 [facility] [place] [facility] [address] [id number] [place] [address]- 9983 20 Sep, 2011 [facility] [address] [id number] [place] [address]646 17 Sep, 2011 [facility] [place] [facility] [address] [id number] [place] [address] 0146 16 Sep, 2011 [facility] [address] [id number] [place] [address]- [address]356 14 Sep, 2011 [facility] [place] [facility] [address] [id number] [place] [address] 2546 13 Sep, 2011 [facility] [address] [id number] [place] [address] 2716 10 Sep, 2011 [facility] [address] [id number] [place] [address]- 8216 06 Sep, 2011 [facility] [address] [id number] [place] [address]796 03 Sep, 2011 [facility] [address] [id number] [place] [address]58 Sep, [facility] [address] [id number] [place] [address] 30 Aug, 2011 [facility] [address] [id number] [place] [address] 288[address] Aug, [facility] [place] [facility] [address] [id number] [place] [address] 2546 Aug, [facility] [place] [facility] [address] [id number] [place] [address]44 24 Aug, 2011 [facility] [place] [facility] [address] [id number] [place] [address] 3748 Aug, [facility] [place] [facility] [address] [id number] [place] [address] 2336 Aug, [facility] [place] [facility] [address] [id number] [place] [address] 1730 Aug, [facility] [place] [facility] [address] [id number] [place] [address]- 9317 17 Aug, 2011 [facility] [address] [id number] [place] [address]- 1883 16 Aug, 2011 [facility] [address] [id number] [place] [address]- 6946 13 Aug, 2011 [facility] [address] [id number] [place] [address]- 2770 Aug, [facility] [address] [id number] [place] [address]- 8715 10 Aug, 2011 [facility] [address] [id number] [place] [address]- 8546 Aug, [facility] [address] [id number] [place] [address] 2316 Aug, [facility] [address] [id number] [place] [address] Aug, [facility] [address] [id number] [place] [address]- 2009 Aug, [facility] [address] [id number] [place] [address]- 74[address] Aug, [facility] [address] [id number] [place] [address] 30 Jul, 2011 [facility] [address] [id number] [place] [address] Jul, [facility] [place] [facility] [address] [id number] [place] [address] Jul, [facility] [place] [facility] [address] [id number] [place] [address] Jul, [facility] [place] [facility] [address] [id number] [place] [address] Jul, [facility] [address] [id number], [place] [address] Jul, [facility] [place] [address] [id number] [address] Jul, [facility] [place] [address] [id number], [place] [address] Jul, [facility] [place], [facility] [address] [id number], [place] [address] Jul, [facility] [place] [address] [id number], [place] [address] Jul, [facility] [place] [address] [id number] [address] Jul, [facility] [place], [facility] [id number] [address] Jun, [facility] [place], [facility] [id number] [address] Jun, [facility] [place], [facility] [address] [id number], [place] [address] Jun, IMMUNIZATIONS No Known Immunizations SOCIAL HISTORY Never Assessed REASON FOR VISIT Controlled Med Refill 04/15/18 PLAN OF CARE VITAL SIGNS MEDICATIONS Medication Instructions Dosage Frequency Start Date End Date Duration Status Ativan 0.5 MG Orally Once a day 1 tablet as needed 24h December, 28 days Active Oxycodone HCl 5 MG Orally Once a day 1 tablet at bedtime 24h Mar, 28 days Active RESULTS No Results PROCEDURES [...]
--- OUTSIDE RECORDS SUMMARY | 2018-08-05 03:12 | XMS REPORT ---
Author Author HEATHER FINE Organization [facility] Address [address] [place] [address] Care Team Providers Care Sampler And Test Preparer Name Role Phone HEATHER FINE Unavailable PROBLEMS Type Condition ICD9-CM Code CVJ32-QJ Code Onset Dates Condition Status SNOMED Code Problem Unspecified cirrhosis of liver K74.60 Active 014188705 Problem Lymphocytosis D72.820 Active 23428881 Problem Secondary esophageal varices with bleeding I85.11 Active 73792060 Problem Anxiety F41.9 Active 29035444 Problem Asthma J45.909 Active 114998138 Problem Chronic back pain M54.9 Active 744789845 Problem Dysthymia F34.1 Active 99053199 Problem Thrombocytosis D47.3 Active 5080976 Problem Splenomegaly R16.1 Active 83433451 Problem 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 Active 550549701 Problem History of hepatitis C Z86.19 Active [id number] ALLERGIES No Information ENCOUNTERS Encounter Location Date Diagnosis [place] [id number] [place] [address] 08021- 1346 Apr, [place] [address] [place] [id number] [place] [address] 15572- 0816 Mar, Anxiety F41.9 [facility] [id number] [place] [address] 82979- 9145 Mar, [facility] [id number] [place] [address] 36071- 4496 Mar, Right arm pain M79.601 [facility] [id number] [place] [address] 30885- 5523 Mar, Anxiety F41.9 [facility] [id number] [place] [address] 96204- 8078 Feb, [facility] [id number] [place] [address] 98213- 2120 Feb, Chronic back pain M54.9 ; Anxiety F41.9 and Dysuria R30.0 [facility] [id number] [place] [address] 84585- 2327 Feb, [facility] [address] [address] [id number] [place] [address] 99843- 9454 Feb, Anxiety F41.9 [facility] [id number] [place] [address] 00173- 1491 Jan, [place] [address] [id number] [place] [address] 08504- 5040 Jan, Chronic back pain M54.9 and Anxiety F41.9 [place] [address] [place] [id number] [place] [address] 57112- 0446 December, Chronic back pain M54.9 and Anxiety F41.9 [place] [address] [place] [id number] [place] [address] 19690- 7272 Nov, Chronic back pain M54.9 and Anxiety F41.9 [place] [address] [place] [id number] [place] [address] 64533- 7345 Oct, Chronic back pain M54.9 and Anxiety F41.9 [place] [address] [place] [id number] [place] [address] 55186- 3165 Oct, [facility] [address] [address] [id number] [place] [address] 14062- 7177 Sep, Chronic back pain M54.9 ; Anxiety F41.9 ; Pain of left leg M79.605 and Pain in right leg M79.604 [facility] [address] [id number] [place] [address] 10828- 1435 Sep, Anxiety F41.9 and Chronic back pain M54.9 [facility] [address] [place] [id number] [place] [address] 41888- 0614 Sep, [facility] [id number] [place] [address] 09416- 6272 Aug, Anxiety F41.9 [facility] [id number] [place] [address] 46090- 9691 Jul, Anxiety F41.9 [facility] [address] 23444- 6530 Jul, [facility] [address] 09949- 1106 Jul, Viral syndrome B34.9 ; Chronic back pain M54.9 and Dysuria R30.0 [facility] [address] [id number] [place] [address] 88860- 4547 Jun, [facility] [id number] [place] [address] 43250- 8305 Jun, Anxiety F41.9 [facility] [id number] [place] [address] 40404 -2107 Jun, Dysuria R30.0 and Acute cystitis without hematuria N30.00 [facility] [address] [address] [id number] [place] [address] 01846- 6878 Jun, [facility] [id number] [place] [address] 16115- 2369 May, Anxiety F41.9 [facility] [id number] [place] [address] 84402- 5195 May, Anxiety F41.9 [facility] [address] [id number] [place] [address] 26975- 7850 Apr, [facility] [address] 67317- 3189 Apr, Chronic back pain M54.9 and Anxiety F41.9 [facility] [address] [place] [id number] [place] [address] 10841- 2423 Mar, [facility] [address] [address]- 6180 Mar, [facility] [address] [place] [place] [id number] [place] [address] 65933- 6814 Mar, Well woman exam Z01.419 ; Cervical cancer screening Z12.4 ; Breast cancer screening Z12.31 and Colon cancer screening Z12.11 [facility] [address] [id number] [place] [address] 95743- 4183 Mar, Chronic back pain M54.9 and Anxiety F41.9 [facility] [address] [place] [id number] [place] [address] 40514- 0184 Mar, [facility] [address] [id number] [place] [address] 48441- 4180 Feb, Chronic back pain M54.9 and Anxiety F41.9 [facility] [address] [id number] [place] [address] 29671- 6577 Feb, [facility] [address] [place] [id number] [place] [address] 99055- 3719 Feb, [facility] [address] [place] [address] [id number] [place] [address] 65089- 3413 Jan, Chronic back pain M54.9 and Anxiety F41.9 [facility] [id number] [place] [address] 07189- 8832 Jan, [facility] [id number] [place] [address] 23336- 4603 Jan, [facility] [address] [address]- 3924 December, Chronic back pain M54.9 and Anxiety F41.9 [facility] [address] [address]- 2819 Nov, Chronic back pain M54.9 and Anxiety F41.9 [facility] [address] [place] [id number] [place] [address] 87972- 9449 Oct, Chronic back pain M54.9 and Anxiety F41.9 [facility] [address] [place] [id number] [place] [address] 79689- 7735 Oct, Chronic back pain M54.9 [facility] [address] [id number] [place] [address] 20743- 5568 Sep, Anxiety F41.9 and Chronic back pain M54.9 [facility] [address] [id number] [place] [address] 56516- 0122 Aug, Anxiety F41.9 and Chronic back pain M54.9 [facility] [address] 53000- 5918 Aug, [facility] [address] [place] [id number] [place] [address] 38960- 7037 Jul, Chronic back pain M54.9 and Anxiety F41.9 [facility] [address] [place] [id number] [place] [address] 31597- 3657 Jul, Anxiety F41.9 and Chronic back pain M54.9 [facility] [address] [place] [address] Jul, [facility] [address] [place] [id number] [place] [address] 68455- 5732 Jul, Anxiety F41.9 [facility] [address] [id number] [place] [address] 21548- 1475 Jul, Anxiety F41.9 and Dysuria R30.0 [facility] [address] [place] [place] [id number] [place] [address] 42327- 4064 Jul, Chronic back pain M54.9 and Anxiety F41.9 [facility] [address] [place] [id number] [place] [address] 78393- 6163 Jun, Chronic back pain M54.9 [facility] [address] [place] [id number] [place] [address] 05266- 9838 Jun, Chronic back pain M54.9 [facility] [address] [facility] [id number] [address]- 9563 May, Anxiety F41.9 [facility] [address] [facility] [id number] [place] [address] 40653- 8916 May, Chronic back pain M54.9 [facility] [id number] [place] [address] 96194- 6025 Apr, [facility] [address] [facility] [id number] [place] [address] 70467- 9177 Apr, [facility] [address] [facility] [id number] [place] [address] 80095- 5002 Apr, [facility] [address] [facility] [id number] [place] [address] 78669- 6316 Apr, Chronic back pain M54.9 [facility] [address] [facility] [id number] [place] [address] 22726- 0744 Mar, Chronic back pain M54.9 [facility] [address] [facility] [id number] [place] [address] 62840- 1635 Feb, Grief F43.20 [facility] [address] [facility] [id number] [place] [address] 73191- 8791 Feb, Chronic back pain M54.9 and Anxiety F41.9 [facility] [address] [facility] [id number] [place] [address] 01985- 5459 Feb, Chronic back pain M54.9 [facility] [address] [facility] [id number], [place] [address]- 6335 Jan, Chronic back pain M54.9 [facility] [address] [facility] [id number] [place] [address] 31257- 0751 December, [facility] [address] [facility] [id number] [place] [address] 11394- 6426 December, Grief F43.20 [facility] [address] [place] [id number] [place] [address] 54114- 6304 Nov, [facility] [address] [place] [id number] [place] [address] 26628- 2121 Oct, Cervicalgia M54.2 ; Secondary esophageal varices with bleeding I85.11 and Mouth pain K13.79 [facility] [address] [place] [id number] [place] [address] 57101- 6734 Oct, [facility] [address] [place] [place] [id number] [place] [address] 67580- 7186 14 Oct, 2015 [facility] [address] [place] [id number] [place] [address] 87541- 7189 Sep, [facility] [address] [place] [id number] [place] [address] 93180- 6017 Sep, Acute maxillary sinusitis, recurrence not specified J01.00 [facility] [address] [place] [place] [id number] [place] [address] 15043- 2115 Aug, [facility] [address] [place] [id number] [place] [address] 98705- 9579 Aug, [facility] [address] [place] [id number] [place] [address] 11942- 3227 Aug, Dysuria R30.0 and Chronic back pain M54.9 [facility] [address] [place] [id number] [place] [address] 82485- 0768 Jul, [facility] [address] [place] [id number] [place] [address] 35407- 6804 Jul, [facility] [address] [place] [id number] [place] [address] 53513- 5992 Jul, [facility] [address] [place] [id number] [place] [address] 96923- 9827 Jul, Chronic back pain M54.9 [facility] [address] [place] [id number] [place] [address] 05681- 6333 Jul, Dysthymia F34.1 and Chronic back pain M54.9 [facility] [address] [place] [place] [id number] [place] [address] 51377- 8922 Jun, [facility] [address] [place] [place] [id number] [place] [address] 44418- 2889 Jun, [facility] [address] [place] [id number] [place] [address] 38283- 7067 May, [facility] [address] [place] [id number] [place] [address] 88715- 2207 May, [facility] [address] [place] [id number] [place] [address] 38020- 1211 May, [facility] [address] [place] [id number] [place] [address] 30419- 0427 May, Encounter for immunization Z23 [facility] [address] [place] [id number] [place] [address] 18747- 6155 Apr, [facility] [address] [place] [id number] [place] [address] 34040- 6027 Apr, [facility] [address] [place] [id number] [place] [address] 76373- 0901 Mar, [facility] [address] [place] [id number] [place] [address] 17518- 5858 Mar, Back pain 724.5 [facility] [address] [place] [id number] [place] [address] 50659- 1682 Mar, Cough 786.2 and Back pain 724.5 [facility] [address] [place] [place] [id number] [place] [address] 52236- 7774 Mar, [facility] [address] [place] [id number] [place] [address] 63768- 0865 Mar, [facility] [address] [place] [place] [id number] [place] [address] 55269- 5192 December, [facility] [address] [place] [id number] [place] [address] 51194- 6281 December, [facility] [place] [facility] [address] [id number] [place] [address]- 8365 Nov, [facility] [place] [facility] [address] [id number] [place] [address]- 9063 Nov, [facility] [place] [facility] [address] [facility] [id number] [place] [address]- 0075 Oct, [facility] [place] [facility] [address] [id number] [place] [address]- 3371 Oct, [facility] [place] [facility] [address] [id number] [place] [address]- 3406 Sep, [facility] [place] [facility] [address] [id number] [place] [address]- 8332 Sep, [facility] [place] [facility] [address] [id number] [place] [address]- 4523 Sep, [facility] [place] [facility] [address] [facility] [id number] [place] [address]- 9002 Sep, [facility] [place] [facility] [address] [id number] [place] [address]- 7039 Sep, [facility] [place] [facility] [address] [facility] [id number] [place] [address]- 9160 Sep, [facility] [place] [facility] [address] [facility] [id number] [place] [address]- 8146 Sep, [facility] [place] [facility] [address] [facility] [id number] [place] [address]- 3070 Sep, [facility] [place] [facility] [address] [id number] [place] [address]- 7431 Aug, [facility] [place] [facility] [address] [facility] [id number] [place] [address]- 5531 Aug, [facility] [place] [facility] [address] [facility] [id number] [place] 0721 Aug, [facility] [place] [facility] [address] [id number] [place] [address]- 6309 13 Aug, 2014 [facility] [place] [facility] [address] [id number] [place] [address]- 5796 13 Aug, 2014 [facility] [place] [facility] [address] [id number] [place] [address]- 4159 12 Aug, 2014 [facility] [place] [facility] [address] [id number] [place] [address]- 1086 Aug, [facility] [place] [facility] [address] [id number] [place] [address]- 1759 Jul, [facility] [place] [facility] [address] [id number] [place] [address]- 7666 Jul, [facility] [place] [facility] [address] [id number] [place] [address]- 8342 Jul, [facility] [place] [facility] [address] [id number] [place] [address]- 9733 18 Jul, 2014 [facility] [place] [facility] [address] [id number] [place] [address]- 3506 Jul, [facility] [place] [facility] [address] [id number] [place] [address]- 4395 Jul, [facility] [place] [facility] [address] [id number] [place] [address]- 5453 Jul, [facility] [place] [facility] [address] [id number], [place] [address]- 8116 05 Jul, 2014 [facility] [place] [facility] [address] [id number] [place] [address]- 5663 Jun, [facility] [place] [facility] [address] [id number] [place] [address]- 3607 Jun, [facility] [place] [facility] [address] [id number] [place] [address]- 5354 Jun, [facility] [place] [facility] [address] [id number], [place] [address]- 4561 07 Jun, 2014 [facility] [place] [facility] [address] [id number] [place] [address]- 6346 07 Jun, 2014 [facility] [place] [facility] [address] [id number] [place] [address]- 2662 Jun, [facility] [place] [facility] [address] [id number] [place] [address]- 4593 Jun, [facility] [place] [facility] [address] [id number] [place] [address]- 9232 28 May, 2014 [facility] [place] [facility] [address] [id number] [place] [address]- 2580 28 May, 2014 [facility] [place] [facility] [address] [id number] [place] [address]- 4558 28 May, 2014 [facility] [place] [facility] [address] [id number] [place] [address]- 1173 May, [facility] [place] [facility] [address] [id number] [place] [address]- 8189 2014 [facility] [place] [facility] [address] [id number] [place] [address]- 4203 2014 [facility] [place] [facility] [address] [id number] [place] [address]- 1505 2014 [facility] [place] [facility] [address] [id number], [place] [address]- 3802 2014 [facility] [place] [facility] [address] [id number], [place] [address]- 3926 13 May, 2014 [facility] [place] [facility] [address] [id number], [place] [address]- 9173 13 May, 2014 [facility] [place] [facility] [address] [facility] [id number], [place] [address]- 3480 10 May, 2014 [facility] [place] [facility] [address] [id number], [place] [address]- 9448 10 May, 2014 [facility] [place] [facility] [address] [id number] [place] [address]- 0880 May, [facility] [place] [facility] [address] [id number] [place] [address]- 0906 May, [facility] [place] [facility] [address] [id number] [place] [address]- 4116 Apr, [facility] [place] [facility] [address] [id number] [place] [address]- 8096 Apr, [facility] [place] [facility] [address] [id number] [place] [address] 2545 Apr, [facility] [place] [facility] [address] [id number] [place] [address]- 3693 Apr, [facility] [place] [facility] [address] [id number] [place] [address]- 7517 Apr, [facility] [place] [facility] [address] [id number] [place] [address]- 7540 Apr, [facility] [place] [facility] [address] [id number] [place] [address]- 9038 Apr, [facility] [place] [facility] [address] [id number] [place] [address]- 7686 Mar, [facility] [place] [facility] [address] [id number] [place] [address]- 4244 Mar, [facility] [place] [facility] [address] [id number] [place] [address]- 5870 Mar, [facility] [place] [facility] [address] [id number] [place] [address]- 7448 Mar, [facility] [place] [facility] [address] [id number] [place] [address]- 5877 Mar, [facility] [place] [facility] [address] [id number] [place] [address]- 2634 Mar, [facility] [place] [facility] [address] [id number] [place] [address]- 6871 Feb, [facility] [place] [facility] [address] [id number] [place] [address]- 6966 Feb, [facility] [place] [facility] [address] [id number] [place] [address]- 3727 Feb, [facility] [place] [facility] [address] [id number] [place] [address]- 1993 Feb, [facility] [place] [facility] [address] [id number] [place] [address]- 3912 Feb, [facility] [place] [facility] [address] [id number] [place] [address]- 9949 Feb, [facility] [place] [facility] [address] [id number] [place] [address]- 8018 Feb, [facility] [place] [facility] [address] [id number] [place] [address]- 7557 Feb, [facility] [place] [facility] [address] [id number] [place] [address]- 8151 Jan, [facility] [place] [facility] [address] [id number] [place] [address]- 1239 Jan, [facility] [place] [facility] [address] [id number] [place] [address]- 0060 December, [facility] [place] [facility] [address] [id number] [place] [address] December, [facility] [place] [facility] [address] [id number] [place] [address] December, [facility] [place] [facility] [address] [id number] [place] [address] December, [facility] [place] [facility] [address] [id number] [place] [address] December, [facility] [place] [facility] [address] [id number] [place] [address] December, [facility] [place] [facility] [address] [id number] [place] [address] December, [facility] [place] [facility] [address] [id number] [place] [address] December, [facility] [place] [facility] [address] [id number] [place] [address] December, [facility] [place] [facility] [address] [id number] [place] [address] December, [facility] [place] [facility] [address] [id number] [place] [address] December, [facility] [place] [facility] [address] [id number] [place] [address] December, [facility] [place] [facility] [address] [id number] [place] [address] Nov, [facility] [place] [facility] [address] [id number] [place] [address] Nov, [facility] [place] [facility] [address] [id number] [place] [address] Nov, [facility] [place] [facility] [address] [id number] [place] [address] Nov, [facility] [place] [facility] [address] [id number] [place] [address]- [address] Nov, [facility] [place] [facility] [address] [id number] [place] [address] Nov, [facility] [place] [facility] [address] [id number] [place] [address] Nov, [facility] [place] [facility] [address] [id number] [place] [address] 4727 Nov, [facility] [place] [facility] [address] [id number] [place] [address] Nov, [facility] [place] [facility] [address] [id number] [place] [address]- [address] Nov, [facility] [place] [facility] [address] [id number] [place] [address] Nov, [facility] [place] [facility] [address] [id number] [place] [address]698 Nov, [facility] [place] [facility] [address] [id number] [place] [address] Nov, [facility] [place] [facility] [address] [id number] [place] [address] Oct, [facility] [place] [facility] [address] [id number] [place] [address] Oct, [facility] [place] [facility] [address] [id number] [place] [address] Sep, [facility] [place] [facility] [address] [id number] [place] [address] Sep, [facility] [place] [facility] [address] [id number] [place] [address]687 Sep, [facility] [place] [facility] [address] [id number] [place] [address]678 Sep, [facility] [place] [facility] [address] [id number] [place] [address] Sep, [facility] [place] [facility] [address] [id number] [place] [address]- [address] Sep, [facility] [place] [facility] [address] [id number] [place] [address] Sep, [facility] [place] [facility] [address] [id number] [place] [address]- [address] 18 Sep, 2013 [facility] [place] [facility] [address] [id number] [place] [address] Sep, [facility] [place] [facility] [address] [id number] [place] [address] Sep, [facility] [place] [facility] [address] [id number] [place] [address]697 Sep, [facility] [address] [id number] [place] [address] Sep, [facility] [place] [facility] [address] [id number] [place] [address] Aug, [facility] [address] [id number] [place] [address] Aug, [facility] [address] [id number] [place] [address] Aug, [facility] [address] [id number] [place] [address]- [address] Aug, [facility] [address] [id number] [place] [address] Aug, [facility] [address] [id number] [place] [address] Aug, [facility] [address] [id number] [place] [address] Aug, [facility] [address] [id number] [place] [address] Aug, [facility] [facility] [address] [id number] [place] [address] Aug, [facility] [address] [id number] [place] [address] 6[address] Aug, [facility] [address] [id number] [place] [address]605 Aug, [facility] [place] [facility] [address] [id number] [place] [address] Aug, [facility] [place] [facility] [address] [id number] [place] [address] 4965 Aug, [facility] [address] [id number] [place] [address] 6994 Aug, [facility] [address] [id number] [place] [address]- 0622 Aug, [facility] [place] [facility] [address] [id number] [place] [address]- 3782 Aug, [facility] [place] [facility] [address] [id number] [place] [address]- 0560 Aug, [facility] [place] [facility] [address] [id number] [place] [address]- 8702 Aug, [facility] [place] [facility] [address] [id number] [place] [address]- 9735 Aug, [facility] [place] [facility] [address] [id number] [place] [address]- 9463 Aug, [facility] [place] [facility] [address] [id number] [place] [address]- 4116 Aug, [facility] [place] [facility] [address] [id number] [place] [address]- 5797 Aug, [facility] [place] [facility] [address] [id number] [place] [address]- 2352 Aug, [facility] [place] [facility] [address] [id number], [place] [address] Jul, [facility] [place] [facility] [address] [id number], [place] [address] 9645 Jul, [facility] [place] [facility] [address] [id number], [place] [address] 6[address] Jul, [facility] [place] [facility] [address] [id number], [place] [address] 2849 Jul, [facility] [place] [facility] [address] [id number], [place] [address]- 4748 Jul, [facility] [place] [facility] [address] [id number], [place] [address]- 2338 Jul, [facility] [place] [facility] [address] [id number], [place] [address]- 1376 Jun, [facility] [place] [facility] [address] [id number] [place] [address]- 8643 Jun, [facility] [place] [facility] [address] [id number], [place] [address] 9507 Jun, [facility] [place] [facility] [address] [facility] [id number] [place] [address]- 5366 Jun, [facility] [place] [facility] [address] [id number], [place] [address]- 9461 Jun, [facility] [place] [facility] [address] [facility] [id number] [place] [address], [place] [address]- [address]472 Jun, [facility] [place] [facility] [address] [id number] [place] [address]- 9708 Jun, [facility] [place] [facility] [address] [facility] [id number], [place] [address]- 7170 Jun, [facility] [place] [facility] [address] [facility] [id number], [place] [address]- 2392 Jun, [facility] [place] [facility] [address] [id number], [place] [address]- 1424 Jun, [facility] [place] [facility] [address] [facility] [id number], [place] [address]- 6243 May, [facility] [place] [facility] [address] [facility] [id number], [place] [address]- 0984 May, [facility] [place] [facility] [address] [facility] [id number], [place] [address]- 5727 May, [facility] [place] [facility] [address] [facility] [id number], [place] [address]- 9032 May, [facility] [place] [facility] [address] [facility] [id number], [place] [address]- 3776 May, [facility] [place] [facility] [address] [facility] [id number], [place] [address]- 9248 May, [facility] [place] [facility] [address] [id number] [place] [address]- 5981 24 May, 2013 [facility] [place] [facility] [address] [id number] [place] [address]- 2573 22 May, 2013 [facility] [place] [facility] [address] [id number] [place] [address]- 6686 May, [facility] [place] [facility] [address] [id number] [place] [address]- 7313 21 May, 2012 [facility] [place] [facility] [address] [id number] [place] [address]- 4619 17 May, 2012 [facility] [place] [facility] [address] [id number] [place] [address]- 9663 16 May, 2013 [facility] [place] [facility] [address] [id number] [place] [address]- 9791 16 May, 2013 [facility] [place] [facility] [address] [id number] [place] [address]- 5008 16 May, 2013 [facility] [place] [facility] [address] [id number] [place] [address]- 9159 16 May, 2013 [facility] [place] [facility] [address] [id number] [place] [address]- 8489 24 Apr, 2013 [facility] [place] [facility] [address] [id number] [place] [address]- 5310 23 Apr, 2013 [facility] [place] [facility] [address] [id number] [place] [address]- 4233 03 Apr, 2013 [facility] [place] [facility] [address] [id number] [place] [address]- 5082 Mar, [facility] [place] [facility] [address] [id number] [place] [address]- 4299 Mar, [facility] [place] [facility] [address] [id number] [place] [address]- 9392 Mar, [facility] [place] [facility] [address] [id number] [place] [address] Mar, [facility] [place] [facility] [address] [id number] [place] [address]- 5427 Mar, [facility] [place] [facility] [address] [id number] [place] [address]- 1651 Mar, [facility] [place] [facility] [address] [id number] [place] [address]- 5548 Feb, [facility] [place] [facility] [address] [id number] [place] [address]- 3100 Feb, [facility] [place] [facility] [address] [id number] [place] [address]- 1083 Feb, [facility] [place] [facility] [address] [id number] [place] [address]- 3940 Feb, [facility] [place] [facility] [address] [id number] [place] [address]- 5221 Feb, [facility] [place] [facility] [address] [id number] [place] [address]- 0080 Feb, [facility] [place] [facility] [address] [id number] [place] [address]- 0302 Feb, [facility] [place] [facility] [address] [id number] [place] [address]- 5293 Feb, [facility] [place] [facility] [address] [id number] [place] [address]- 2370 Feb, [facility] [place] [facility] [address] [id number] [place] [address]- 9679 Feb, [facility] [place] [facility] [address] [id number] [place] [address]- 2581 Jan, [facility] [place] [facility] [address] [id number] [place] [address]- 4415 Jan, [facility] [place] [facility] [address] [id number] [place] [address]- 7941 Jan, [facility] [place] [facility] [address] [id number] [place] [address]- 6170 Jan, [facility] [address] [id number] [place] [address]- 5958 December, [facility] [address] [id number] [place] [address]- 6871 December, [facility] [address] [id number] [place] [address]- 4903 December, [facility] [address] [id number] [place] [address]- 2301 Nov, [facility] [address] [id number] [place] [address]- 1427 Nov, [facility] [address] [id number] [place] [address]- 4867 Nov, [facility] [address] [id number] [place] [address]- 7262 Nov, [facility] [address] [id number] [place] [address]- 4379 Nov, [facility] [address] [id number] [place] [address]- 0510 Nov, [facility] [address] [id number] [place] [address]- 5104 Oct, [facility] [place] [facility] [address] [id number] [place] [address]- 3849 Oct, [facility] [place] [facility] [address] [id number] [place] [address]- 0295 Oct, [facility] [place] [facility] [address] [id number] [place] [address]- 6793 Sep, [facility] [place] [facility] [address] [id number] [place] [address]- 4926 Sep, [facility] [place] [facility] [address] [id number] [place] [address]- 2931 Sep, [facility] [address] [id number] [place] [address]- 7367 Aug, [facility] [place] [facility] [address] [id number] [place] [address]- 0370 Aug, [facility] [place] [facility] [address] [id number] [place] [address]- 0522 Aug, [facility] [place] [facility] [address] [id number] [place] [address]- 9545 Aug, [facility] [place] [facility] [address] [id number] [place] [address]- 0745 Jul, [facility] [place] [facility] [address] [id number] [place] [address]- 8965 Jul, [facility] [place] [facility] [address] [id number] [place] [address]- 3033 Jul, [facility] [place] [facility] [address] [id number] [place] [address]- 6315 Jul, [facility] [place] [facility] [address] [id number] [place] [address]- 2578 Jun, [facility] [place] [facility] [address] [id number], [place] [address]- 7478 Jun, [facility] [place] [facility] [address] [id number], [place] [address]- 5537 Jun, [facility] [place] [facility] [address] [id number], [place] [address]- 4676 Jun, [facility] [place] [facility] [address] [id number] [place] [address]- 4965 Jun, [facility] [place] [facility] [address] [id number], [place] [address]- 5658 Jun, [facility] [place] [facility] [address] [facility] [id number], [place] [address]- 6599 Jun, [facility] [place] [facility] [address] [id number], [place] [address]- 1111 02 Jun, 2012 [facility] [place] [facility] [address] [id number] [place] [address]- 3539 30 May, 2012 [facility] [place] [facility] [address] [id number] [place] [address]- 2720 30 May, 2012 [facility] [place] [facility] [address] [facility] [id number] [place] [address]- 3319 18 May, 2012 [facility] [place] [facility] [address] [id number] [place] [address]- 5727 18 May, 2012 [facility] [place] [facility] [address] [id number] [place] [address]- 8284 2012 [facility] [place] [facility] [address] [facility] [id number] [place] [address]- 4698 13 May, 2012 [facility] [place] [facility] [address] [facility] [id number] [place] [address]- 3908 11 May, 2012 [facility] [place] [facility] [address] [facility] [id number] [place] [address]- 9472 11 May, 2012 [facility] [place] [facility] [address] [facility] [id number] [place] [address]- 2925 10 May, 2012 [facility] [place] [facility] [address] [facility] [id number] [place] [address]- 0837 08 May, 2012 [facility] [place] [facility] [address] [facility] [id number], [place] [address]- 2572 24 Sep, 2011 [facility] [place] [facility] [address] [facility] [id number], [place] [address]- 2048 19 Sep, 2011 [facility] [place] [facility] [address] [id number] [place] [address]- 1975 18 Sep, 2011 [facility] [place] [facility] [address] [facility] [id number] [place] [address]- 3748 17 Sep, 2011 [facility] [place] [facility] [address] [facility] [id number] [place] [address]- 1562 16 Sep, 2011 [facility] [place] [facility] [address] [id number] [place] [address]- 0036 Apr, [facility] [place] [facility] [address] [id number] [place] [address]- 8287 Mar, [facility] [place] [facility] [address] [id number] [place] [address]- 7156 Mar, [facility] [place] [facility] [address] [id number] [place] [address]- 6616 Mar, [facility] [place] [facility] [address] [id number] [place] [address]- 1566 Mar, [facility] [place] [facility] [address] [id number] [place] [address]- 8829 Mar, [facility] [place] [facility] [address] [id number] [place] [address]- 3671 Mar, [facility] [place] [facility] [address] [id number] [place] [address]- 8411 Feb, [facility] [place] [facility] [address] [id number] [place] [address]- 2643 Feb, [facility] [place] [facility] [address] [id number] [place] [address]- 0342 Feb, [facility] [place] [facility] [address] [id number] [place] [address]- 6370 Feb, [facility] [place] [facility] [address] [id number] [place] [address]- 7810 Feb, [facility] [place] [facility] [address] [id number] [place] [address]- 5121 Feb, [facility] [place] [facility] [address] [id number] [place] [address]- 3176 Feb, [facility] [place] [facility] [address] [id number] [place] [address]- 7826 Feb, [facility] [place] [facility] [address] [id number] [place] [address]- 4100 Feb, [facility] [place] [facility] [address] [id number] [place] [address]- 9850 Jan, [facility] [place] [facility] [address] [id number] [place] [address]- 2991 Jan, [facility] [place] [facility] [address] [id number] [place] [address]- 1493 Jan, [facility] [place] [facility] [address] [id number] [place] [address]- 3762 Jan, [facility] [place] [facility] [address] [id number] [place] [address]- 9383 Jan, [facility] [place] [facility] [address] [id number] [place] [address]- 8763 Jan, [facility] [place] [facility] [address] [id number] [place] [address]- 7005 Jan, [facility] [place] [facility] [address] [id number] [place] [address]- 7809 Jan, [facility] [place] [facility] [address] [id number] [place] [address]- 9482 Jan, [facility] [place] [facility] [address] [id number] [place] [address]- 9124 December, [facility] [place] [facility] [address] [id number] [place] [address]- 8780 December, [facility] [place] [facility] [address] [id number], [place] [address]- 5515 December, [facility] [place] [facility] [address] [id number] [place] [address]- 7656 December, [facility] [place] [facility] [address] [id number] [place] [address]- 5648 December, [facility] [place] [facility] [address] [id number] [place] [address]- 8440 December, [facility] [place] [facility] [address] [id number] [place] [address]- 6587 December, [facility] [address] [id number] [place] [address]- 1779 December, [facility] [place] [facility] [address] [id number] [place] 6226 December, [facility] [address] [id number] [place] [address]- 5048 December, [facility] [place] [facility] [address] [id number] [place] [address]- 6725 Nov, [facility] [address] [id number] [place] [address]- 4439 Nov, [facility] [place] [facility] [address] [id number] [place] [address]- 2336 Nov, [facility] [address] [id number] [place] [address]- 2641 Nov, [facility] [address] [id number] [place] [address]- 4092 16 Nov, 2011 [facility] [place] [facility] [address] [id number] [place] [address]- 1058 Nov, [facility] [address] [id number] [place] [address]- 2891 Nov, [facility] [place] [facility] [address] [id number] [place] [address]- 1459 Nov, [facility] [place] [facility] [address] [id number] [place] [address]- 2473 Nov, [facility] [place] [facility] [address] [id number] [place] [address]- 5300 Nov, [facility] [place] [facility] [address] [id number] [id number] 8629 Oct, [facility] [place] [facility] [address] [id number] [place] [address]- 8640 Oct, [facility] [place] [facility] [address] [id number] [place] [address]- 5033 23 Oct, 2011 [facility] [place] [facility] [address] [id number] [place] [address]- 8606 23 Oct, 2011 [facility] [place] [facility] [address] [id number] [place] [address]- 1776 21 Oct, 2011 [facility] [place] [facility] [address] [id number] [place] [address]- 4166 20 Oct, 2011 [facility] [place] [facility] [address] [id number] [place] [address]- 7007 19 Oct, 2011 [facility] [place] [facility] [address] [id number] [place] [address]- 0119 19 Oct, 2011 [facility] [place] [facility] [address] [id number] [place] [address]- 2911 16 Oct, 2011 [facility] [place] [facility] [address] [id number] [place] [address]- 8240 14 Oct, 2011 [facility] [place] [facility] [address] [id number] [place] [address]- 1535 14 Oct, 2011 [facility] [place] [facility] [address] [id number] [place] [address]- 8864 09 Oct, 2011 [facility] [place] [facility] [address] [id number] [place] [address]- 2071 08 Oct, 2011 [facility] [place] [facility] [address] [id number] [place] [address]- 7056 06 Oct, 2011 [facility] [place] [facility] [address] [id number] [place] [address]- 1838 02 Oct, 2011 [facility] [place] [facility] [address] [id number] [place] [address]- 4711 28 Sep, 2011 [facility] [place] [facility] [address] [id number] [place] [address]- 5647 24 Sep, 2011 [facility] [place] [facility] [address] [id number] [place] [address]- 1178 20 Sep, 2011 [facility] [address] [id number] [place] [address]- 5756 17 Sep, 2011 [facility] [place] [facility] [address] [id number] [place] [address]- 1136 16 Sep, 2011 [facility] [address] [id number] [place] [address]- 2716 14 Sep, 2011 [facility] [place] [facility] [address] [id number] [place] [address] 2546 13 Sep, 2011 [facility] [address] [id number] [place] [address]- 9416 10 Sep, 2011 [facility] [address] [id number] [place] [address]- 7836 06 Sep, 2011 [facility] [address] [id number] [place] [address] 03 Sep, 2011 [facility] [address] [id number] [place] [address] Sep, [facility] [address] [id number] [place] [address] 30 Aug, 2011 [facility] [address] [id number] [place] [address] Aug, [facility] [place] [facility] [address] [id number] [place] [address] Aug, [facility] [place] [facility] [address] [id number] [place] [address] 24 Aug, 2011 [facility] [place] [facility] [address] [id number] [place] [address] Aug, [facility] [place] [facility] [address] [id number] [place] [address] Aug, [facility] [place] [facility] [address] [id number] [place] [address] Aug, [facility] [place] [facility] [address] [id number] [place] [address] 17 Aug, 2011 [facility] [address] [id number] [place] [address] 16 Aug, 2011 [facility] [address] [id number] [place] [address] 13 Aug, 2011 [facility] [address] [id number] [place] [address] Aug, [facility] [address] [id number] [place] [address] 10 Aug, 2011 [facility] [address] [id number] [place] [address] Aug, [facility] [address] [id number] [place] [address] Aug, [facility] [address] [id number] [place] [address] Aug, [facility] [address] [id number] [place] [address] Aug, [facility] [address] [id number] [place] [address] Aug, [facility] [address] [id number] [place] [address] 30 Jul, 2011 [facility] [address] [id number] [place] [address] Jul, [facility] [place] [facility] [address] [id number] [place] [address] Jul, [facility] [place] [facility] [address] [id number] [place] [address] Jul, [facility] [place] [facility] [address] [id number] [place] [address] Jul, [facility] [address] [id number] [address] [address] Jul, [facility] [id number] [address] Jul, [facility] [address] [id number] [address] Jul, [facility] [address] [id number], [place] [address] Jul, [facility] [id number] [address] Jul, [facility] [address] [id number] [address] Jul, [facility] [id number], [place] [address] Jun, [facility] [id number], [place] [address] Jun, [facility] [address] [id number], [place] [address] Jun, IMMUNIZATIONS No Known Immunizations SOCIAL HISTORY Never Assessed REASON FOR VISIT Medication question PLAN OF CARE VITAL SIGNS MEDICATIONS Medication Instructions Dosage Frequency Start Date End Date Duration Status Ibuprofen 800 MG Orally 3 times a day 1 tablet with food or milk as needed Mar, 30 days Active RESULTS No Results PROCEDURES [...]
--- OUTSIDE RECORDS SUMMARY | 2018-08-05 03:12 | XMS REPORT ---
Author Author HEATHER FINE Organization [facility] Address [address] [place] [address] Care Team Providers Care Urban Anthropologist Name Role Phone HEATHER FINE Unavailable PROBLEMS Type Condition ICD9-CM Code ONC16-UP Code Onset Dates Condition Status SNOMED Code Problem Unspecified cirrhosis of liver K74.60 Active 031802523 Problem Lymphocytosis D72.820 Active 68701758 Problem Secondary esophageal varices with bleeding I85.11 Active 60998192 Problem Anxiety F41.9 Active 36068510 Problem Asthma J45.909 Active 583538990 Problem Chronic back pain M54.9 Active 511821070 Problem Dysthymia F34.1 Active 88356821 Problem Thrombocytosis D47.3 Active 3384014 Problem Splenomegaly R16.1 Active 95585978 Problem 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 Active 043238463 Problem History of hepatitis C Z86.19 Active [id number] ALLERGIES No Information ENCOUNTERS Encounter Location Date Diagnosis [place] [id number] [place] [address] 77578- 7532 Apr, [place] [address] [place] [id number] [place] [address] 38654- 3058 Mar, Anxiety F41.9 [facility] [id number] [place] [address] 27487- 6946 Mar, [facility] [address] [place] [id number] [place] [address] 69421- 6793 Mar, Right arm pain M79.601 [facility] [address] [place] [id number] [place] [address] 42160- 2997 Mar, Anxiety F41.9 [facility] [address] [place] [id number] [place] [address] 19602- 3309 Feb, [facility] [id number] [place] [address] 55362- 9747 Feb, Chronic back pain M54.9 ; Anxiety F41.9 and Dysuria R30.0 [facility] [address] [place] [id number] [place] [address] 64602- 4050 Feb, [facility] [address] [place] [id number] [place] [address] 97827- 7879 Feb, Anxiety F41.9 [facility] [address] [place] [id number] [place] [address] 90861- 6286 Jan, [place] [address] [place] [id number] [place] [address] 15765- 1983 Jan, Chronic back pain M54.9 and Anxiety F41.9 [place] [address] [place] [id number] [place] [address] 79033- 5491 December, Chronic back pain M54.9 and Anxiety F41.9 [place] [address] [place] [id number] [place] [address] 80032- 5695 Nov, Chronic back pain M54.9 and Anxiety F41.9 [place] [address] [place] [id number] [place] [address] 83657- 5686 Oct, Chronic back pain M54.9 and Anxiety F41.9 [place] [address] [place] [id number] [place] [address] 03085- 9523 Oct, [facility] [address] [place] [id number] [place] [address] 33349- 0536 Sep, Chronic back pain M54.9 ; Anxiety F41.9 ; Pain of left leg M79.605 and Pain in right leg M79.604 [facility] [address] [place] [id number] [place] [address] 53654- 1584 Sep, Anxiety F41.9 and Chronic back pain M54.9 [facility] [address] [place] [id number] [place] [address] 68172- 0045 Sep, [facility] [address] [place] [id number] [place] [address] 57314- 5887 Aug, Anxiety F41.9 [facility] [address] [place] [id number] [place] [address] 97201- 4971 Jul, Anxiety F41.9 [facility] [address] 35883- 6167 Jul, [facility] [address] 58929- 4705 Jul, Viral syndrome B34.9 ; Chronic back pain M54.9 and Dysuria R30.0 [facility] [address] [place] [id number] [place] [address] 43147- 5856 Jun, [facility] [address] [place] [id number] [place] [address] 28704- 1973 Jun, Anxiety F41.9 [facility] [address] [place] [id number] [place] [address] 20769 -1117 Jun, Dysuria R30.0 and Acute cystitis without hematuria N30.00 [facility] [address] [place] [id number] [place] [address] 34879- 0842 Jun, [facility] [address] [place] [id number] [place] [address] 49968- 1190 May, Anxiety F41.9 [facility] [address] [place] [id number] [place] [address] 59780- 2912 May, Anxiety F41.9 [facility] [address] [place] [id number] [place] [address] 09354- 6507 Apr, [facility] [address] 99199- 7115 Apr, Chronic back pain M54.9 and Anxiety F41.9 [facility] [address] [place] [id number] [place] [address] 83616- 6773 Mar, [facility] [address] [address]- 4737 Mar, [facility] [address] [place] [id number] [place] [address] 83463- 8829 Mar, Well woman exam Z01.419 ; Cervical cancer screening Z12.4 ; Breast cancer screening Z12.31 and Colon cancer screening Z12.11 [facility] [address] [place] [id number] [place] [address] 34881- 0651 Mar, Chronic back pain M54.9 and Anxiety F41.9 [facility] [address] [place] [id number] [place] [address] 26112- 9058 Mar, [facility] [address] [place] [id number] [place] [address] 73990- 6009 Feb, Chronic back pain M54.9 and Anxiety F41.9 [facility] [address] [place] [id number] [place] [address] 42098- 2147 Feb, [facility] [address] [place] [id number] [place] [address] 52499- 7614 Feb, [facility] [address] [place] [id number] [place] [address] 04194- 1631 Jan, Chronic back pain M54.9 and Anxiety F41.9 [facility] [id number] [place] [address] 49314- 5277 Jan, [facility] [id number] [place] [address] 00664- 5254 Jan, [facility] [address] [address]- 4292 December, Chronic back pain M54.9 and Anxiety F41.9 [facility] [address] [address]- 8826 Nov, Chronic back pain M54.9 and Anxiety F41.9 [facility] [address] [place] [id number] [place] [address] 44770- 0507 Oct, Chronic back pain M54.9 and Anxiety F41.9 [facility] [address] [place] [id number] [place] [address] 14494- 6748 Oct, Chronic back pain M54.9 [facility] [address] [place] [id number] [place] [address] 42361- 6771 Sep, Anxiety F41.9 and Chronic back pain M54.9 [facility] [address] [place] [id number] [place] [address] 01819- 9562 Aug, Anxiety F41.9 and Chronic back pain M54.9 [facility] [address] 45316- 7777 Aug, [facility] [address] [place] [id number] [place] [address] 83478- 6297 Jul, Chronic back pain M54.9 and Anxiety F41.9 [facility] [address] [place] [id number] [place] [address] 14712- 0654 Jul, Anxiety F41.9 and Chronic back pain M54.9 [facility] [address] [place] [address] Jul, [facility] [address] [place] [id number] [place] [address] 41183- 2942 Jul, Anxiety F41.9 [facility] [address] [place] [id number] [place] [address] 58791- 0723 Jul, Anxiety F41.9 and Dysuria R30.0 [facility] [address] [place] [id number] [place] [address] 68704- 7330 Jul, Chronic back pain M54.9 and Anxiety F41.9 [facility] [address] [place] [id number] [place] [address] 63821- 5136 Jun, Chronic back pain M54.9 [facility] [address] [place] [id number] [place] [address] 61124- 3617 Jun, Chronic back pain M54.9 [facility] [address] [facility] [id number] [address]- 7532 May, Anxiety F41.9 [facility] [address] [facility] [id number] [place] [address] 74540- 3116 May, Chronic back pain M54.9 [facility] [id number] [place] [address] 38667- 1194 Apr, [facility] [address] [facility] [id number] [place] [address] 68643- 9839 Apr, [facility] [address] [facility] [id number] [place] [address] 12491- 6518 Apr, [facility] [address] [facility] [id number] [place] [address] 91422- 5924 Apr, Chronic back pain M54.9 [facility] [address] [facility] [id number] [place] [address] 78348- 5511 Mar, Chronic back pain M54.9 [facility] [address] [facility] [id number] [place] [address] 51280- 3848 Feb, Grief F43.20 [facility] [address] [facility] [id number] [place] [address] 10496- 9433 Feb, Chronic back pain M54.9 and Anxiety F41.9 [facility] [address] [facility] [id number] [place] [address] 13066- 7296 Feb, Chronic back pain M54.9 [facility] [address] [facility] [id number], [place] [address]- 7637 Jan, Chronic back pain M54.9 [facility] [address] [facility] [id number] [place] [address] 15817- 1155 December, [facility] [address] [facility] [id number] [place] [address] 20180- 7290 December, Grief F43.20 [facility] [address] [place] [id number] [place] [address] 54037- 9731 Nov, [facility] [address] [place] [id number] [place] [address] 95802- 4975 Oct, Cervicalgia M54.2 ; Secondary esophageal varices with bleeding I85.11 and Mouth pain K13.79 [facility] [address] [place] [id number] [place] [address] 51187- 4108 Oct, [facility] [address] [place] [id number] [place] [address] 09442- 4257 14 Oct, 2015 [facility] [address] [place] [id number] [place] [address] 11958- 1340 Sep, [facility] [address] [place] [id number] [place] [address] 87050- 2903 Sep, Acute maxillary sinusitis, recurrence not specified J01.00 [facility] [address] [place] [id number] [place] [address] 85136- 1035 Aug, [facility] [address] [place] [id number] [place] [address] 52995- 4760 Aug, [facility] [address] [place] [id number] [place] [address] 85013- 1293 Aug, Dysuria R30.0 and Chronic back pain M54.9 [facility] [address] [place] [id number] [place] [address] 55956- 1181 Jul, [facility] [address] [place] [id number] [place] [address] 39952- 0840 Jul, [facility] [address] [place] [id number] [place] [address] 47605- 3327 Jul, [facility] [address] [place] [id number] [place] [address] 20684- 4109 Jul, Chronic back pain M54.9 [facility] [address] [place] [id number] [place] [address] 02528- 6565 Jul, Dysthymia F34.1 and Chronic back pain M54.9 [facility] [address] [place] [id number] [place] [address] 20167- 9833 Jun, [facility] [address] [place] [id number] [place] [address] 81584- 0226 Jun, [facility] [address] [place] [id number] [place] [address] 57507- 6266 May, [facility] [address] [place] [id number] [place] [address] 87076- 2870 May, [facility] [address] [place] [id number] [place] [address] 68278- 6280 May, [facility] [address] [place] [id number] [place] [address] 04841- 1568 May, Encounter for immunization Z23 [facility] [address] [place] [id number] [place] [address] 75478- 9910 Apr, [facility] [address] [place] [id number] [place] [address] 61276- 4288 Apr, [facility] [address] [place] [id number] [place] [address] 67500- 6152 Mar, [facility] [address] [place] [id number] [place] [address] 02706- 4701 Mar, Back pain 724.5 [facility] [address] [place] [id number] [place] [address] 55521- 1215 Mar, Cough 786.2 and Back pain 724.5 [facility] [address] [place] [id number] [place] [address] 85964- 1483 Mar, [facility] [address] [place] [id number] [place] [address] 40301- 8928 Mar, [facility] [address] [place] [id number] [place] [address] 03007- 0484 December, [facility] [address] [place] [id number] [place] [address] 32823- 8403 December, [facility] [place] [facility] [address] [id number] [place] [address]- 2426 Nov, [facility] [place] [facility] [address] [id number] [place] [address]- 7208 Nov, [facility] [place] [facility] [address] [facility] [id number] [place] [address]- 3004 Oct, [facility] [place] [facility] [address] [id number] [place] [address]- 4557 Oct, [facility] [place] [facility] [address] [id number] [place] [address]- 8052 Sep, [facility] [place] [facility] [address] [id number] [place] [address]- 3993 Sep, [facility] [place] [facility] [address] [id number] [place] [address]- 2177 Sep, [facility] [place] [facility] [address] [facility] [id number] [place] [address]- 4190 Sep, [facility] [place] [facility] [address] [id number] [place] [address]- 7348 Sep, [facility] [place] [facility] [address] [facility] [id number] [place] [address]- 4339 Sep, [facility] [place] [facility] [address] [facility] [id number] [place] [address]- 6350 Sep, [facility] [place] [facility] [address] [facility] [id number] [place] [address]- 1505 Sep, [facility] [place] [facility] [address] [id number] [place] [address]- 0143 Aug, [facility] [place] [facility] [address] [facility] [id number] [place] [address]- 5671 Aug, [facility] [place] [facility] [address] [facility] [id number] [place] 9889 Aug, [facility] [place] [facility] [address] [id number] [place] [address]- 3118 13 Aug, 2014 [facility] [place] [facility] [address] [id number] [place] [address]- 4983 13 Aug, 2014 [facility] [place] [facility] [address] [id number] [place] [address]- 3070 12 Aug, 2014 [facility] [place] [facility] [address] [id number] [place] [address]- 1244 Aug, [facility] [place] [facility] [address] [id number] [place] [address]- 3924 Jul, [facility] [place] [facility] [address] [id number] [place] [address]- 8224 Jul, [facility] [place] [facility] [address] [id number] [place] [address]- 6989 Jul, [facility] [place] [facility] [address] [id number] [place] [address] 18 Jul, 2014 [facility] [place] [facility] [address] [id number] [place] [address] Jul, [facility] [place] [facility] [address] [id number] [place] [address] Jul, [facility] [place] [facility] [address] [id number] [place] [address] Jul, [facility] [place] [facility] [address] [id number], [place] [address] 05 Jul, 2014 [facility] [place] [facility] [address] [id number] [place] [address] Jun, [facility] [place] [facility] [address] [id number] [place] [address] Jun, [facility] [place] [facility] [address] [id number] [place] [address] Jun, [facility] [place] [facility] [address] [id number], [place] [address] 07 Jun, 2014 [facility] [place] [facility] [address] [id number] [place] [address] 07 Jun, 2014 [facility] [place] [facility] [address] [id number] [place] [address]858 Jun, [facility] [place] [facility] [address] [id number] [place] [address] Jun, [facility] [place] [facility] [address] [id number] [place] [address]- [address] 28 May, 2014 [facility] [place] [facility] [address] [id number] [place] [address] 28 May, 2014 [facility] [place] [facility] [address] [id number] [place] [address] 79[address] 28 May, 2014 [facility] [place] [facility] [address] [id number] [place] [address] May, [facility] [place] [facility] [address] [id number] [place] [address] 2014 [facility] [place] [facility] [address] [id number] [place] [address] 2014 [facility] [place] [facility] [address] [id number] [place] [address]- 5[address] 2014 [facility] [place] [facility] [address] [id number], [place] [address] 2014 [facility] [place] [facility] [address] [id number], [place] [address] 13 May, 2014 [facility] [place] [facility] [address] [id number], [place] [address] 13 May, 2014 [facility] [place] [facility] [address] [facility] [id number], [place] [address] 10 May, 2014 [facility] [place] [facility] [address] [id number], [place] [address] 10 May, 2014 [facility] [place] [facility] [address] [id number] [place] [address]99 May, [facility] [place] [facility] [address] [id number] [place] [address] May, [facility] [place] [facility] [address] [id number] [place] [address] 4656 Apr, [facility] [place] [facility] [address] [id number] [place] [address] Apr, [facility] [place] [facility] [address] [id number] [place] [address] 254 Apr, [facility] [place] [facility] [address] [id number] [place] [address] 98[address] Apr, [facility] [place] [facility] [address] [id number] [place] [address] 88[address] Apr, [facility] [place] [facility] [address] [id number] [place] [address] 2810 Apr, [facility] [place] [facility] [address] [id number] [place] [address] 7750 Apr, [facility] [place] [facility] [address] [id number] [place] [address] Mar, [facility] [place] [facility] [address] [id number] [place] [address] Mar, [facility] [place] [facility] [address] [id number] [place] [address]196 Mar, [facility] [place] [facility] [address] [id number] [place] [address]111 Mar, [facility] [place] [facility] [address] [id number] [place] [address]- [address]137 Mar, [facility] [place] [facility] [address] [id number] [place] [address] Mar, [facility] [place] [facility] [address] [id number] [place] [address] 93[address] Feb, [facility] [place] [facility] [address] [id number] [place] [address] 16[address] Feb, [facility] [place] [facility] [address] [id number] [place] [address] 9979 Feb, [facility] [place] [facility] [address] [id number] [place] [address] Feb, [facility] [place] [facility] [address] [id number] [place] [address]- 134[address] Feb, [facility] [place] [facility] [address] [id number] [place] [address]- 18[address] Feb, [facility] [place] [facility] [address] [id number] [place] [address]- 0869 Feb, [facility] [place] [facility] [address] [id number] [place] [address] Feb, [facility] [place] [facility] [address] [id number] [place] [address]- [address] Jan, [facility] [place] [facility] [address] [id number] [place] [address] 94[address] Jan, [facility] [place] [facility] [address] [id number] [place] [address]- 29[address] December, [facility] [place] [facility] [address] [id number] [place] [address]- [address] December, [facility] [place] [facility] [address] [id number] [place] [address]- 9[address] December, [facility] [place] [facility] [address] [id number] [place] [address]- 26[address] December, [facility] [place] [facility] [address] [id number] [place] [address]- 29[address] December, [facility] [place] [facility] [address] [id number] [place] [address]- 2009 December, [facility] [place] [facility] [address] [id number] [place] [address]- 30[address] December, [facility] [place] [facility] [address] [id number] [place] [address]- 17[address] December, [facility] [place] [facility] [address] [id number] [place] [address]- [address] December, [facility] [place] [facility] [address] [id number] [place] [address] December, [facility] [place] [facility] [address] [id number] [place] [address] 1117 December, [facility] [place] [facility] [address] [id number] [place] [address] 3463 December, [facility] [place] [facility] [address] [id number] [place] [address]- 4477 Nov, [facility] [place] [facility] [address] [id number] [place] [address] 9733 Nov, [facility] [place] [facility] [address] [id number] [place] [address]- 6983 Nov, [facility] [place] [facility] [address] [id number] [place] [address]- 5058 Nov, [facility] [place] [facility] [address] [id number] [place] [address]- 7631 Nov, [facility] [place] [facility] [address] [id number] [place] [address]- 9280 Nov, [facility] [place] [facility] [address] [id number] [place] [address]- 8551 Nov, [facility] [place] [facility] [address] [id number] [place] [address]- 5585 Nov, [facility] [place] [facility] [address] [id number] [place] [address]- 4475 Nov, [facility] [place] [facility] [address] [id number] [place] [address]- 5487 Nov, [facility] [place] [facility] [address] [id number] [place] [address]- 6525 Nov, [facility] [place] [facility] [address] [id number] [place] [address]- 8265 Nov, [facility] [place] [facility] [address] [id number] [place] [address]- 6225 Nov, [facility] [place] [facility] [address] [id number] [place] [address]- 9733 Oct, [facility] [place] [facility] [address] [id number] [place] [address]- 6283 Oct, [facility] [place] [facility] [address] [id number] [place] [address]- 0993 Sep, [facility] [place] [facility] [address] [id number] [place] [address]- 3841 Sep, [facility] [place] [facility] [address] [id number] [place] [address]- 6398 Sep, [facility] [place] [facility] [address] [id number] [place] [address]- 3600 Sep, [facility] [place] [facility] [address] [id number] [place] [address]- 9569 Sep, [facility] [place] [facility] [address] [id number] [place] [address]- 4674 Sep, [facility] [place] [facility] [address] [id number] [place] [address]- 3128 Sep, [facility] [place] [facility] [address] [id number] [place] [address]- 4547 18 Sep, 2013 [facility] [place] [facility] [address] [id number] [place] [address]- 6040 Sep, [facility] [place] [facility] [address] [id number] [place] [address]- 0769 Sep, [facility] [place] [facility] [address] [id number] [place] [address]- 8101 Sep, [facility] [address] [id number] [place] [address]- 9792 Sep, [facility] [place] [facility] [address] [id number] [place] [address]- 5013 Aug, [facility] [address] [id number] [place] [address]- 1834 Aug, [facility] [address] [id number] [place] [address]- 6377 Aug, [facility] [address] [id number] [place] [address]- 9315 Aug, [facility] [address] [id number] [place] [address]- 1838 Aug, [facility] [address] [id number] [place] [address]- 1375 Aug, [facility] [address] [id number] [place] [address]- 8807 Aug, [facility] [address] [id number] [place] [address]- 6729 Aug, [facility] [address] [id number] [place] [address]- 7772 Aug, [facility] [address] [id number] [place] [address]- 4146 Aug, [facility] [address] [id number] [place] [address]- 3253 Aug, [facility] [place] [facility] [address] [id number] [place] [address]- 0859 Aug, [facility] [place] [facility] [address] [id number] [place] [address]- 5996 Aug, [facility] [address] [id number] [place] [address]- 1192 Aug, [facility] [address] [id number] [place] [address]- 2950 Aug, [facility] [place] [facility] [address] [id number] [place] [address]- 1610 Aug, [facility] [place] [facility] [address] [id number] [place] [address]- 6802 Aug, [facility] [place] [facility] [address] [id number] [place] [address]- 0617 Aug, [facility] [place] [facility] [address] [id number] [place] [address]- 8451 Aug, [facility] [place] [facility] [address] [id number] [place] [address]- 1086 Aug, [facility] [place] [facility] [address] [id number] [place] [address]- 4012 Aug, [facility] [place] [facility] [address] [id number] [place] [address]- 1452 Aug, [facility] [place] [facility] [address] [id number] [place] [address]- 6044 Aug, [facility] [place] [facility] [address] [id number], [place] [address]- 0485 Jul, [facility] [place] [facility] [address] [id number], [place] [address]- 3698 Jul, [facility] [place] [facility] [address] [id number], [place] [address]- 5293 Jul, [facility] [place] [facility] [address] [id number][place] [address]- 3751 Jul, [facility] [place] [facility] [address] [id number], [place] [address]- 7296 Jul, [facility] [place] [facility] [address] [id number], [place] [address]- 9306 Jul, [facility] [place] [facility] [address] [id number], [place] [address]- 8499 Jun, [facility] [place] [facility] [address] [id number] [place] [address]- 0171 Jun, [facility] [place] [facility] [address] [id number], [place] [address]- 2018 Jun, [facility] [place] [facility] [address] [facility] [id number] [place] [address]- 8593 Jun, [facility] [place] [facility] [address] [id number], [place] [address]- 3730 Jun, [facility] [place] [facility] [address] [facility] [id number] [place] [address], [place] [address]- 6179 Jun, [facility] [place] [facility] [address] [id number] [place] [address]- 7580 Jun, [facility] [place] [facility] [address] [facility] [id number], [place] [address]- 8782 Jun, [facility] [place] [facility] [address] [facility] [id number], [place] [address]- 8244 Jun, [facility] [place] [facility] [address] [id number], [place] [address]- 6649 Jun, [facility] [place] [facility] [address] [facility] [id number], [place] [address]- 2736 May, [facility] [place] [facility] [address] [facility] [id number], [place] [address]- 7124 May, [facility] [place] [facility] [address] [facility] [id number], [place] [address]- 2080 May, [facility] [place] [facility] [address] [facility] [id number], [place] [address]- 0498 May, [facility] [place] [facility] [address] [facility] [id number], [place] [address]- 2450 May, [facility] [place] [facility] [address] [facility] [id number], [place] [address]- 2764 May, [facility] [place] [facility] [address] [id number] [place] [address]- 0292 24 May, 2013 [facility] [place] [facility] [address] [id number] [place] [address]- 5758 22 May, 2013 [facility] [place] [facility] [address] [id number] [place] [address]- 1633 May, [facility] [place] [facility] [address] [id number] [place] [address]- 6061 21 May, 2012 [facility] [place] [facility] [address] [id number] [place] [address]- 0606 17 May, 2012 [facility] [place] [facility] [address] [id number] [place] [address]- 3118 16 May, 2013 [facility] [place] [facility] [address] [id number] [place] [address]- 1701 16 May, 2013 [facility] [place] [facility] [address] [id number] [place] [address]- 4108 16 May, 2013 [facility] [place] [facility] [address] [id number] [place] [address]- 3188 16 May, 2013 [facility] [place] [facility] [address] [id number] [place] [address]- 9028 24 Apr, 2013 [facility] [place] [facility] [address] [id number] [place] [address]- 3683 23 Apr, 2013 [facility] [place] [facility] [address] [id number] [place] [address]- 8602 03 Apr, 2013 [facility] [place] [facility] [address] [id number] [place] [address]- 5804 Mar, [facility] [place] [facility] [address] [id number] [place] [address]- 9051 Mar, [facility] [place] [facility] [address] [id number] [place] [address]- 0951 Mar, [facility] [place] [facility] [address] [id number] [place] Mar, [facility] [place] [facility] [address] [id number] [place] [address]- 9495 Mar, [facility] [place] [facility] [address] [id number] [place] [address]- 2924 Mar, [facility] [place] [facility] [address] [id number] [place] [address]- 4272 Feb, [facility] [place] [facility] [address] [id number] [place] [address]- 9617 Feb, [facility] [place] [facility] [address] [id number] [place] [address]- 6694 Feb, [facility] [place] [facility] [address] [id number] [place] [address]- 0394 Feb, [facility] [place] [facility] [address] [id number] [place] [address]- 1694 Feb, [facility] [place] [facility] [address] [id number] [place] [address]- 9789 Feb, [facility] [place] [facility] [address] [id number] [place] [address]- 4451 Feb, [facility] [place] [facility] [address] [id number] [place] [address]- 1137 Feb, [facility] [place] [facility] [address] [id number] [place] [address]- 7076 Feb, [facility] [place] [facility] [address] [id number] [place] [address]- 8751 Feb, [facility] [place] [facility] [address] [id number] [place] [address]- 9241 Jan, [facility] [place] [facility] [address] [id number] [place] [address]- 7860 Jan, [facility] [place] [facility] [address] [id number] [place] [address]- 7238 Jan, [facility] [place] [facility] [address] [id number] [place] [address]- 3613 Jan, [facility] [address] [id number] [place] [address]- 8404 December, [facility] [address] [id number] [place] [address]- 4733 December, [facility] [address] [id number] [place] [address]- 9492 December, [facility] [address] [id number] [place] [address]- 5888 Nov, [facility] [address] [id number] [place] [address]- 7818 Nov, [facility] [address] [id number] [place] [address]- 5156 Nov, [facility] [address] [id number] [place] [address]- 0396 Nov, [facility] [address] [id number] [place] [address]- 9182 Nov, [facility] [address] [id number] [place] [address]- 6226 Nov, [facility] [address] [id number] [place] [address]- 4945 Oct, [facility] [place] [facility] [address] [id number] [place] [address]- 5233 Oct, [facility] [place] [facility] [address] [id number] [place] [address]- 0486 Oct, [facility] [place] [facility] [address] [id number] [place] [address]- 0086 Sep, [facility] [place] [facility] [address] [id number] [place] [address]- 9760 Sep, [facility] [place] [facility] [address] [id number] [place] [address]- 2141 Sep, [facility] [address] [id number] [place] [address]- 8187 Aug, [facility] [place] [facility] [address] [id number] [place] [address]- 0818 Aug, [facility] [place] [facility] [address] [id number] [place] [address]- 6450 Aug, [facility] [place] [facility] [address] [id number] [place] [address]- 9390 Aug, [facility] [place] [facility] [address] [id number] [place] [address]- 3873 Jul, [facility] [place] [facility] [address] [id number] [place] [address]- 9430 Jul, [facility] [place] [facility] [address] [id number] [place] [address]- 4989 Jul, [facility] [place] [facility] [address] [id number] [place] [address]- 4362 Jul, [facility] [place] [facility] [address] [id number] [place] [address]- 4264 Jun, [facility] [place] [facility] [address] [id number], [place] [address]- 9436 Jun, [facility] [place] [facility] [address] [id number], [place] [address]- 3808 Jun, [facility] [place] [facility] [address] [id number], [place] [address]- 5852 Jun, [facility] [place] [facility] [address] [id number] [place] [address]- 8334 Jun, [facility] [place] [facility] [address] [id number], [place] [address]- 4851 Jun, [facility] [place] [facility] [address] [facility] [id number], [place] [address]- 5287 Jun, [facility] [place] [facility] [address] [id number], [place] [address]- 8401 02 Jun, 2012 [facility] [place] [facility] [address] [id number] [place] [address]- 5196 30 May, 2012 [facility] [place] [facility] [address] [id number] [place] [address]- 1478 30 May, 2012 [facility] [place] [facility] [address] [facility] [id number] [place] [address]- 8754 18 May, 2012 [facility] [place] [facility] [address] [id number] [place] [address]- 0822 18 May, 2012 [facility] [place] [facility] [address] [id number] [place] [address]- 8380 2012 [facility] [place] [facility] [address] [facility] [id number] [place] [address]- 6141 13 May, 2012 [facility] [place] [facility] [address] [facility] [id number] [place] [address]- 9734 11 May, 2012 [facility] [place] [facility] [address] [facility] [id number] [place] [address]- 0730 11 May, 2012 [facility] [place] [facility] [address] [facility] [id number] [place] [address]- 2545 10 May, 2012 [facility] [place] [facility] [address] [facility] [id number] [place] [address]- 9175 08 May, 2012 [facility] [place] [facility] [address] [facility] [id number], [place] [address]- 2219 24 Sep, 2011 [facility] [place] [facility] [address] [facility] [id number], [place] [address]- 6071 19 Sep, 2011 [facility] [place] [facility] [address] [id number] [place] [address]- 4058 18 Sep, 2011 [facility] [place] [facility] [address] [facility] [id number] [place] [address]- 2314 17 Sep, 2011 [facility] [place] [facility] [address] [facility] [id number] [place] [address]- 9183 16 Sep, 2011 [facility] [place] [facility] [address] [id number] [place] [address]- 1332 Apr, [facility] [place] [facility] [address] [id number] [place] [address]- 9982 Mar, [facility] [place] [facility] [address] [id number] [place] [address]- 1906 Mar, [facility] [place] [facility] [address] [id number] [place] [address]- 6126 Mar, [facility] [place] [facility] [address] [id number] [place] [address]- 5694 Mar, [facility] [place] [facility] [address] [id number] [place] [address]- 3559 Mar, [facility] [place] [facility] [address] [id number] [place] [address]- 0973 Mar, [facility] [place] [facility] [address] [id number] [place] [address]- 5854 Feb, [facility] [place] [facility] [address] [id number] [place] [address]- 3077 Feb, [facility] [place] [facility] [address] [id number] [place] [address]- 9836 Feb, [facility] [place] [facility] [address] [id number] [place] [address]- 6009 Feb, [facility] [place] [facility] [address] [id number] [place] [address]- 7388 Feb, [facility] [place] [facility] [address] [id number] [place] [address]- 1839 Feb, [facility] [place] [facility] [address] [id number] [place] [address]- 3796 Feb, [facility] [place] [facility] [address] [id number] [place] [address]- 3086 Feb, [facility] [place] [facility] [address] [id number] [place] [address]- 5805 Feb, [facility] [place] [facility] [address] [id number] [place] [address]- 2673 Jan, [facility] [place] [facility] [address] [id number] [place] [address]- 3567 Jan, [facility] [place] [facility] [address] [id number] [place] [address]- 1817 Jan, [facility] [place] [facility] [address] [id number] [place] [address]- 3085 Jan, [facility] [place] [facility] [address] [id number] [place] [address]- 3463 Jan, [facility] [place] [facility] [address] [id number] [place] [address]- 6696 Jan, [facility] [place] [facility] [address] [id number] [place] [address]- 9203 Jan, [facility] [place] [facility] [address] [id number] [place] [address]- 6301 Jan, [facility] [place] [facility] [address] [id number] [place] [address]- 2648 Jan, [facility] [place] [facility] [address] [id number] [place] [address]- 6815 December, [facility] [place] [facility] [address] [id number] [place] [address]- 1443 December, [facility] [place] [facility] [address] [id number], [place] [address]- 1479 December, [facility] [place] [facility] [address] [id number] [place] [address]- 0290 December, [facility] [place] [facility] [address] [id number] [place] [address]- 4389 December, [facility] [place] [facility] [address] [id number] [place] [address]- 7324 December, [facility] [place] [facility] [address] [id number] [place] [address]- 3981 December, [facility] [address] [id number] [place] [address]- 8458 December, [facility] [place] [facility] [address] [id number] [place] 7426 December, [facility] [address] [id number] [place] [address]- 9799 December, [facility] [place] [facility] [address] [id number] [place] [address]- 3090 Nov, [facility] [address] [id number] [place] [address]- 5727 Nov, [facility] [place] [facility] [address] [id number] [place] [address]- 6898 Nov, [facility] [address] [id number] [place] [address]- 4287 Nov, [facility] [address] [id number] [place] [address] 16 Nov, 2011 [facility] [place] [facility] [address] [id number] [place] [address] Nov, [facility] [address] [id number] [place] [address] Nov, [facility] [place] [facility] [address] [id number] [place] [address] 6[address] Nov, [facility] [place] [facility] [address] [id number] [place] [address] 0464 Nov, [facility] [place] [facility] [address] [id number] [place] [address] Nov, [facility] [place] [facility] [address] [id number] [place] [id number] [address] Oct, [facility] [place] [facility] [address] [id number] [place] [address] Oct, [facility] [place] [facility] [address] [id number] [place] [address] 365[address] 23 Oct, 2011 [facility] [place] [facility] [address] [id number] [place] [address] 4676 23 Oct, 2011 [facility] [place] [facility] [address] [id number] [place] [address] 21 Oct, 2011 [facility] [place] [facility] [address] [id number] [place] [address]756 20 Oct, 2011 [facility] [place] [facility] [address] [id number] [place] [address] 3797 19 Oct, 2011 [facility] [place] [facility] [address] [id number] [place] [address] 4875 19 Oct, 2011 [facility] [place] [facility] [address] [id number] [place] [address] 6486 16 Oct, 2011 [facility] [place] [facility] [address] [id number] [place] [address]- 1785 14 Oct, 2011 [facility] [place] [facility] [address] [id number] [place] [address] 14 Oct, 2011 [facility] [place] [facility] [address] [id number] [place] [address]- 7022 09 Oct, 2011 [facility] [place] [facility] [address] [id number] [place] [address] 6262 08 Oct, 2011 [facility] [place] [facility] [address] [id number] [place] [address] 5326 06 Oct, 2011 [facility] [place] [facility] [address] [id number] [place] [address] 4531 02 Oct, 2011 [facility] [place] [facility] [address] [id number] [place] [address] 6090 28 Sep, 2011 [facility] [place] [facility] [address] [id number] [place] [address]- 2311 24 Sep, 2011 [facility] [place] [facility] [address] [id number] [place] [address] 8941 20 Sep, 2011 [facility] [address] [id number] [place] [address] 4316 17 Sep, 2011 [facility] [place] [facility] [address] [id number] [place] [address] 8866 16 Sep, 2011 [facility] [address] [id number] [place] [address] 1936 14 Sep, 2011 [facility] [place] [facility] [address] [id number] [place] [address] 2546 13 Sep, 2011 [facility] [address] [id number] [place] [address]- 9526 10 Sep, 2011 [facility] [address] [id number] [place] [address] 3676 06 Sep, 2011 [facility] [address] [id number] [place] [address] 8726 03 Sep, 2011 [facility] [address] [id number] [place] [address]- 1083 Sep, [facility] [address] [id number] [place] [address] 4569 30 Aug, 2011 [facility] [address] [id number] [place] [address] Aug, [facility] [place] [facility] [address] [id number] [place] [address] 2546 Aug, [facility] [place] [facility] [address] [id number] [place] [address] 2545 24 Aug, 2011 [facility] [place] [facility] [address] [id number] [place] [address] 9104 Aug, [facility] [place] [facility] [address] [id number] [place] [address] 8196 Aug, [facility] [place] [facility] [address] [id number] [place] [address]- 5986 Aug, [facility] [place] [facility] [address] [id number] [place] [address] 4961 17 Aug, 2011 [facility] [address] [id number] [place] [address]- 7848 16 Aug, 2011 [facility] [address] [id number] [place] [address]- 2486 13 Aug, 2011 [facility] [address] [id number] [place] [address]- 0287 Aug, [facility] [address] [id number] [place] [address] 4808 10 Aug, 2011 [facility] [address] [id number] [place] [address] 9096 Aug, [facility] [address] [id number] [place] [address] 3893 Aug, [facility] [address] [id number] [place] [address] 0571 Aug, [facility] [address] [id number] [place] [address] 8291 Aug, [facility] [address] [id number] [place] [address] 4509 Aug, [facility] [address] [id number] [place] [address]- 4160 30 Jul, 2011 [facility] [address] [id number] [place] [address] 7641 Jul, [facility] [place] [facility] [address] [id number] [place] [address]- 0538 Jul, [facility] [place] [facility] [address] [id number] [place] [address]- 3496 Jul, [facility] [place] [facility] [address] [id number] [place] [address] 5196 Jul, [facility] [address] [id number] [address] Jul, [facility] [place] [id number] [address] Jul, [facility] [place] [id number] [address] Jul, [facility] [place] [address] [id number] [address] Jul, [facility] [place] [id number] [address] Jul, [facility] [place] [id number], [place] [address] 2721 Jul, [facility] [place] [id number], [place] [address] Jun, [facility] [place] [id number], [place] [address] Jun, [facility] [place] [address] [id number], [place] [address] Jun, IMMUNIZATIONS No Known Immunizations SOCIAL HISTORY Never Assessed REASON FOR VISIT medication request PLAN OF CARE VITAL SIGNS MEDICATIONS Unknown Medications RESULTS No Results PROCEDURES No Known procedures [...]
--- OUTSIDE RECORDS SUMMARY | 2018-08-05 03:13 | XMS REPORT ---
Author Author HEATHER FINE Organization [facility] Address [address] [place] [address] Care Team Providers Care In Home Aide Name Role Phone HEATHER FINE Unavailable PROBLEMS Type Condition ICD9-CM Code FDT88-SL Code Onset Dates Condition Status SNOMED Code Problem Unspecified cirrhosis of liver K74.60 Active 814782296 Problem Lymphocytosis D72.820 Active 18139501 Problem Secondary esophageal varices with bleeding I85.11 Active 47991594 Problem Anxiety F41.9 Active 10417850 Problem Asthma J45.909 Active 929908604 Problem Chronic back pain M54.9 Active 684863096 Problem Dysthymia F34.1 Active 90867248 Problem Thrombocytosis D47.3 Active 8447370 Problem Splenomegaly R16.1 Active 25628769 Problem 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 Active 173292643 Problem History of hepatitis C Z86.19 Active [id number] ALLERGIES No Information ENCOUNTERS Encounter Location Date Diagnosis [place] [id number] [place] [address] 35848- 8956 Mar, Anxiety F41.9 [place] [id number] [place] [address] 92735- 9413 Mar, [facility] [id number] [place] [address] 19047- 1563 Mar, Right arm pain M79.601 [facility] [address] [place] [id number] [place] [address] 47119- 9131 Mar, Anxiety F41.9 [facility] [id number] [place] [address] 16220- 6853 Feb, [facility] [id number] [place] [address] 21461- 0557 Feb, Chronic back pain M54.9 ; Anxiety F41.9 and Dysuria R30.0 [facility] [address] [id number] [place] [address] 28762- 7770 Feb, [facility] [address] [address] [id number] [place] [address] 92613- 1954 Feb, Anxiety F41.9 [facility] [address] [address] [id number] [place] [address] 22651- 0516 Jan, [facility] [address] [address] [id number] [place] [address] 85432- 0659 Jan, Chronic back pain M54.9 and Anxiety F41.9 [facility] [address] [place] [id number] [place] [address] 91197- 9602 December, Chronic back pain M54.9 and Anxiety F41.9 [facility] [address] [place] [id number] [place] [address] 30137- 8187 Nov, Chronic back pain M54.9 and Anxiety F41.9 [facility] [address] [address] [id number] [place] [address] 72611- 1215 Oct, Chronic back pain M54.9 and Anxiety F41.9 [facility] [address] [address] [id number] [place] [address] 97951- 2124 Oct, [facility] [address] [address] [id number] [place] [address] 05312- 9215 Sep, Chronic back pain M54.9 ; Anxiety F41.9 ; Pain of left leg M79.605 and Pain in right leg M79.604 [facility] [address] [id number] [place] [address] 77238- 3679 Sep, Anxiety F41.9 and Chronic back pain M54.9 [facility] [address] [id number] [place] [address] 60976- 6310 Sep, [facility] [address] [id number] [place] [address] 24973- 0826 Aug, Anxiety F41.9 [facility] [address] [id number] [place] [address] 30390- 9023 Jul, Anxiety F41.9 [facility] [address] [address] [id number] [place] [address] 49322- 3346 Jul, [facility] [address] [address] [id number] [place] [address] 54890- 9051 Jul, Viral syndrome B34.9 ; Chronic back pain M54.9 and Dysuria R30.0 [facility] [address] [id number] [place] [address] 90335- 6441 Jun, [facility] [address] 77204- 2307 Jun, Anxiety F41.9 [facility] [address] [address] [id number] [place] [address] 67277 -0250 Jun, Dysuria R30.0 and Acute cystitis without hematuria N30.00 [facility] [address] [place] [id number] [place] [address] 15282- 4741 Jun, [facility] [address] 43621- 0504 May, Anxiety F41.9 [facility] [address] [place] [id number] [place] [address] 60860- 9329 May, Anxiety F41.9 [facility] [address] [id number] [place] [address] 01904- 9782 Apr, [facility] [address] [place] [id number] [place] [address] 70756- 1712 Apr, Chronic back pain M54.9 and Anxiety F41.9 [facility] [address] [place] [id number] [place] [address] 11354- 9713 Mar, [facility] [address] [place] [id number] [place] [address] 98862- 2173 Mar, [facility] [address] [address]- 0373 Mar, 2017 Well woman exam Z01.419 ; Cervical cancer screening Z12.4 ; Breast cancer screening Z12.31 and Colon cancer screening Z12.11 [facility] [address] [address]- 2186 Mar, Chronic back pain M54.9 and Anxiety F41.9 [facility] [address] [place] [id number] [place] [address] 68841- 7525 Mar, [facility] [address] [place] [id number] [place] [address] 95178- 3781 Feb, Chronic back pain M54.9 and Anxiety F41.9 [facility] [address] [place] [id number] [place] [address] 50989- 6017 Feb, [facility] [address] [place] [id number] [place] [address] 88357- 2919 Feb, [facility] [address] [place] [id number] [place] [address] 76209- 3305 Jan, Chronic back pain M54.9 and Anxiety F41.9 [facility] [address] [place] [id number] [address]- 4549 Jan, [facility] [address] [place] [id number] [place] [address] 83008- 0672 Jan, [facility] [address] [place] [id number] [place] [address] 87951- 8325 December, Chronic back pain M54.9 and Anxiety F41.9 [facility] [address] [place] [id number] [place] [address] 23578- 6095 Nov, Chronic back pain M54.9 and Anxiety F41.9 [facility] [address] [address]- 0555 Oct, Chronic back pain M54.9 and Anxiety F41.9 [facility] [address] [place] [id number] [place] [address] 07160- 1877 Oct, Chronic back pain M54.9 [facility] [address] 53315- 8507 Sep, Anxiety F41.9 and Chronic back pain M54.9 [facility] [address] [place] [id number] [place] [address] 22452- 8406 Aug, Anxiety F41.9 and Chronic back pain M54.9 [facility] [address] [place] [id number] [place] [address] 94579- 6234 Aug, [facility] [address] 82155- 9727 Jul, Chronic back pain M54.9 and Anxiety F41.9 [facility] [address] [place] [id number] [place] [address] 26051- 5824 Jul, Anxiety F41.9 and Chronic back pain M54.9 [facility] [address] [facility] [place] [address] Jul, [facility] [address] [place] [id number] [place] [address] 85426- 2968 Jul, Anxiety F41.9 [facility] [address] [place] [id number] [place] [address] 25766- 2672 Jul, Anxiety F41.9 and Dysuria R30.0 [facility] [address] [place] [id number] [place] [address] 05357- 8838 Jul, Chronic back pain M54.9 and Anxiety F41.9 [facility] [address] [place] [id number] [place] [address] 83542- 2362 Jun, Chronic back pain M54.9 [facility] [address] [place] [id number] [place] [address] 20813- 7827 Jun, Chronic back pain M54.9 [facility] [address] [place] [id number] [place] [address] 07316- 0339 May, Anxiety F41.9 [facility] [address] [id number], [place] [address]- 3719 May, Chronic back pain M54.9 [facility] [id number] [place] [address] 37713- 8486 Apr, [facility] [address] [id number] [place] [address] 82276- 3782 Apr, [facility] [address] [id number] [place] [address] 24483- 9333 Apr, [facility] [address] [facility] [id number] [place] [address] 33897- 2171 Apr, Chronic back pain M54.9 [facility] [address] [facility] [id number] [place] [address] 68352- 4774 Mar, Chronic back pain M54.9 [facility] [address] [facility] [id number] [place] [address] 81040- 7080 Feb, Grief F43.20 [facility] [address] [facility] [id number] [place] [address] 51262- 0579 Feb, Chronic back pain M54.9 and Anxiety F41.9 [facility] [address] [facility] [id number] [place] [address] 33258- 9474 Feb, Chronic back pain M54.9 [facility] [address] [facility] [id number] [place] [address] 26615- 7458 Jan, Chronic back pain M54.9 [facility] [address] [facility] [id number], [place] [address]- 8175 December, [facility] [address] [facility] [id number] [place] [address] 78182- 0791 December, Grief F43.20 [facility] [address] [facility] [id number] [address]- 0162 Nov, [facility] [address] [place] [id number] [place] [address] 22194- 1777 28 Oct, 2015 Cervicalgia M54.2 ; Secondary esophageal varices with bleeding I85.11 and Mouth pain K13.79 [facility] [address] [place] [id number] [place] [address] 57500- 2735 22 Oct, 2015 [facility] [address] [place] [id number] [place] [address] 95992- 9214 14 Oct, 2015 [facility] [address] [place] [id number] [place] [address] 74888- 1507 Sep, [facility] [address] [place] [id number] [place] [address] 60436- 6327 Sep, Acute maxillary sinusitis, recurrence not specified J01.00 [facility] [address] [place] [id number] [place] [address] 96652- 4142 Aug, [facility] [address] [place] [id number] [place] [address] 11945- 6174 Aug, [facility] [address] [place] [id number] [place] [address] 45216- 9812 Aug, Dysuria R30.0 and Chronic back pain M54.9 [facility] [address] [place] [id number] [place] [address] 70214- 4517 Jul, [facility] [address] [place] [id number] [place] [address] 65072- 3243 Jul, [facility] [address] [place] [id number] [place] [address] 02151- 1686 Jul, [facility] [address] [place] [id number] [place] [address] 81613- 1627 Jul, Chronic back pain M54.9 [facility] [address] [place] [id number] [place] [address] 43134- 3982 Jul, Dysthymia F34.1 and Chronic back pain M54.9 [facility] [address] [place] [id number] [place] [address] 53224- 0844 Jun, [facility] [address] [address]- 6576 Jun, [facility] [address] [place] [id number] [place] [address] 78088- 5352 May, [facility] [address] [place] [id number] [place] [address] 61028- 2542 May, [facility] [address] [id number] [place] [address] 83245- 2106 May, [facility] [address] [place] [id number] [place] [address] 29945- 8076 May, Encounter for immunization Z23 [facility] [address] [place] [id number] [place] [address] 61052- 8624 Apr, [facility] [address] [place] [id number] [place] [address] 31767- 2800 Apr, [facility] [address] [place] [id number] [place] [address] 35423- 9167 Mar, [facility] [address] [place] [id number] [place] [address] 14165- 9141 Mar, Back pain 724.5 [facility] [address] [place] [id number] [place] [address] 13403- 1613 Mar, Cough 786.2 and Back pain 724.5 [facility] [address] [place] [id number] [place] [address] 97984- 7942 Mar, [facility] [id number] [place] [address] 85129- 4468 Mar, [facility] [address] [place] [id number] [place] [address] 89469- 4051 December, [facility] [id number] [place] [address] 69138- 6368 December, [facility] [address] [place] [id number] [place] [address] 92284- 7381 14 Nov, 2014 [facility] [place] [facility] [address] [id number] [place] [address]- 5012 Nov, [facility] [place] [facility] [address] [id number] [place] [address]- 8698 Oct, [facility] [place] [facility] [address] [facility] [id number] [place] [address]- 7408 Oct, [facility] [place] [facility] [address] [id number] [place] [address]- 4530 Sep, [facility] [place] [facility] [address] [id number] [place] [address]- 8718 Sep, [facility] [place] [facility] [address] [id number] [place] [address]- 2400 Sep, [facility] [place] [facility] [address] [facility] [id number] [place] [address]- 8624 Sep, [facility] [place] [facility] [address] [id number] [place] [address]- 0785 Sep, [facility] [place] [facility] [address] [facility] [id number] [place] [address]- 1916 Sep, [facility] [place] [facility] [address] [facility] [id number] [place] [address]- 2999 Sep, [facility] [place] [facility] [address] [facility] [id number] [place] [address]- 6197 Sep, [facility] [place] [facility] [address] [id number] [place] [address]- 9166 Aug, [facility] [place] [facility] [address] [id number] [place] [address]- 4938 Aug, [facility] [place] [facility] [address] [facility] [id number] [place] [address]- 2798 Aug, [facility] [place] [facility] [address] [facility] [id number] [place] [address]- 9988 Aug, [facility] [place] [facility] [address] [id number] [place] [address]- 7461 13 Aug, 2014 [facility] [place] [facility] [address] [id number] [place] [address]- 4896 Aug, [facility] [place] [facility] [address] [id number] [place] [address]- 4782 Aug, [facility] [place] [facility] [address] [id number] [place] [address]- 1632 Jul, [facility] [place] [facility] [address] [id number] [place] [address]- 3328 Jul, [facility] [place] [facility] [address] [id number] [place] [address]- 9743 Jul, [facility] [place] [facility] [address] [id number] [place] [address]- 3453 Jul, [facility] [place] [facility] [address] [id number] [place] [address]- 7029 Jul, [facility] [place] [facility] [address] [id number] [place] [address]- 4423 Jul, [facility] [place] [facility] [address] [id number] [place] [address]- 7984 Jul, [facility] [place] [facility] [address] [id number] [place] [address]- 8965 Jul, [facility] [place] [facility] [address] [id number], [place] [address]- 8415 Jun, [facility] [place] [facility] [address] [id number] [place] [address]- 4708 Jun, [facility] [place] [facility] [address] [id number] [place] [address]- 0252 Jun, [facility] [place] [facility] [address] [id number] 9055 Jun, [facility] [place] [facility] [address] [id number], [place] [address]- 4055 Jun, [facility] [place] [facility] [address] [id number] [place] [address]- 8022 Jun, [facility] [place] [facility] [address] [id number] [place] [address]- 1300 Jun, [facility] [place] [facility] [address] [id number] [place] [address]- 3233 28 May, 2014 [facility] [place] [facility] [address] [id number] [place] [address]- 9369 28 May, 2014 [facility] [place] [facility] [address] [id number] [place] [address]- 8544 28 May, 2014 [facility] [place] [facility] [address] [id number] [place] [address]- 6579 28 May, 2014 [facility] [place] [facility] [address] [id number] [place] [address]- 4795 2014 [facility] [place] [facility] [address] [id number] [place] [address]- 7202 2014 [facility] [place] [facility] [address] [id number] [place] [address]- 7765 2014 [facility] [place] [facility] [address] [id number] [place] [address]- 7009 2014 [facility] [place] [facility] [address] [id number], [place] [address]- 6468 13 May, 2014 [facility] [place] [facility] [address] [id number], [place] [address]- 8202 13 May, 2014 [facility] [place] [facility] [address] [id number], [place] [address]- 4229 10 May, 2014 [facility] [place] [facility] [address] [id number], [place] [address]- 1095 10 May, 2014 [facility] [place] [facility] [address] [facility] [id number], [place] [address]- 0826 08 May, 2014 [facility] [place] [facility] [address] [id number] [place] [address]- 8085 08 May, 2014 [facility] [place] [facility] [address] [id number] [place] [address]- 1106 Apr, 2013 [facility] [place] [facility] [address] [id number] [place] [address] 2546 Apr, 2013 [facility] [place] [facility] [address] [id number] [place] [address] 2546 Apr, 2013 [facility] [place] [facility] [address] [id number] [place] [address] 2543 Apr, 2013 [facility] [place] [facility] [address] [id number] [place] [address]- 5007 Apr, 2013 [facility] [place] [facility] [address] [id number] [place] [address]- 5708 Apr, [facility] [place] [facility] [address] [id number] [place] [address]- 0529 Apr, [facility] [place] [facility] [address] [id number] [place] [address]- 4558 Mar, [facility] [place] [facility] [address] [id number] [place] [address]- 2914 Mar, [facility] [place] [facility] [address] [id number] [place] [address]- 0933 Mar, [facility] [place] [facility] [address] [id number] [place] [address]- 2254 Mar, [facility] [place] [facility] [address] [id number] [place] [address]- 8236 Mar, [facility] [place] [facility] [address] [id number] [place] [address]- 2828 Mar, [facility] [place] [facility] [address] [id number] [place] [address]- 6385 Feb, [facility] [place] [facility] [address] [id number] [place] [address]- 0690 Feb, [facility] [place] [facility] [address] [id number] [place] [address]- 7610 Feb, [facility] [place] [facility] [address] [id number] [place] [address]- 9626 Feb, [facility] [place] [facility] [address] [id number] [place] [address] Feb, [facility] [place] [facility] [address] [id number] [place] [address] Feb, [facility] [place] [facility] [address] [id number] [place] [address] Feb, [facility] [place] [facility] [address] [id number] [place] [address] Feb, [facility] [place] [facility] [address] [id number] [place] [address] Jan, [facility] [place] [facility] [address] [id number] [place] [address] Jan, [facility] [place] [facility] [address] [id number] [place] [address] December, [facility] [place] [facility] [address] [id number] [place] [address] December, [facility] [place] [facility] [address] [id number] [place] [address] December, [facility] [place] [facility] [address] [id number] [place] [address] December, [facility] [place] [facility] [address] [id number] [place] [address] December, [facility] [place] [facility] [address] [id number] [place] [address] December, [facility] [place] [facility] [address] [id number] [place] [address] December, [facility] [place] [facility] [address] [id number] [place] [address] December, [facility] [place] [facility] [address] [id number] [place] [address] December, [facility] [place] [facility] [address] [id number] [place] [address] December, [facility] [place] [facility] [address] [id number] [place] [address] December, [facility] [place] [facility] [address] [id number] [place] [address] December, [facility] [place] [facility] [address] [id number] [place] [address] Nov, [facility] [place] [facility] [address] [id number] [place] [address] Nov, [facility] [place] [facility] [address] [id number] [place] [address] Nov, [facility] [place] [facility] [address] [id number] [place] [address] Nov, [facility] [place] [facility] [address] [id number] [place] [address] Nov, [facility] [place] [facility] [address] [id number] [place] [address] Nov, [facility] [place] [facility] [address] [id number] [place] [address] Nov, [facility] [place] [facility] [address] [id number] [place] [address] Nov, [facility] [place] [facility] [address] [id number] [place] [address] Nov, [facility] [place] [facility] [address] [id number] [place] [address] Nov, [facility] [place] [facility] [address] [id number] [place] [address] Nov, [facility] [place] [facility] [address] [id number] [place] [address] Nov, [facility] [place] [facility] [address] [id number] [place] [address] Nov, [facility] [place] [facility] [address] [id number] [place] [address] Oct, [facility] [place] [facility] [address] [id number] [place] [address] Oct, [facility] [place] [facility] [address] [id number] [place] [address] Sep, [facility] [place] [facility] [address] [id number] [place] [address] Sep, [facility] [place] [facility] [address] [id number] [place] [address] Sep, [facility] [place] [facility] [address] [id number] [place] [address] Sep, [facility] [place] [facility] [address] [id number] [place] [address] Sep, [facility] [place] [facility] [address] [id number] [place] [address] Sep, [facility] [place] [facility] [address] [id number] [place] [address] Sep, [facility] [place] [facility] [address] [id number] [place] [address] 18 Sep, 2013 [facility] [place] [facility] [address] [id number] [place] [address] Sep, [facility] [place] [facility] [address] [id number] [place] [address] Sep, [facility] [place] [facility] [address] [facility] [id number] [place] [address] 05 Sep, 2013 [facility] [place] [facility] [address] [id number] [place] [address] Sep, [facility] [address] [id number] [place] [address] Aug, [facility] [address] [id number] [place] [address] Aug, [facility] [address] [id number] [place] [address] Aug, [facility] [address] [address] [id number] [place] [address] [address] Aug, [facility] [address] [id number] [place] [address] 5435 Aug, [facility] [address] [id number] [place] [address] [address] Aug, [facility] [address] [id number] [place] [address] 9530 Aug, [facility] [address] [id number] [place] [address] [address] Aug, [facility] [address] [id number] [place] [address] 2173 Aug, [facility] [address] [id number] [place] [address] [address] Aug, [facility] [address] [id number] [place] [address] 1304 Aug, [facility] [address] [id number] [place] [address] 0843 Aug, [facility] [place] [facility] [address] [id number] [place] [address] 8719 Aug, [facility] [place] [facility] [address] [id number] [place] [address] 5[address] Aug, [facility] [address] [id number] [place] [address] 8197 Aug, [facility] [address] [id number] [place] [address] 2576 Aug, [facility] [place] [facility] [address] [id number] [place] [address]- 2314 Aug, [facility] [place] [facility] [address] [id number] [place] [address] 7901 Aug, [facility] [place] [facility] [address] [id number] [place] [address]- 4940 Aug, [facility] [place] [facility] [address] [id number] [place] [address]- 0422 Aug, [facility] [place] [facility] [address] [id number] [place] [address]- 6833 Aug, [facility] [place] [facility] [address] [id number] [place] [address] 7746 Aug, [facility] [place] [facility] [address] [id number] [place] [address]- 0791 Aug, [facility] [place] [facility] [address] [id number] [place] [address] 2766 Jul, [facility] [place] [facility] [address] [id number], [place] [address]- 8280 Jul, [facility] [place] [facility] [address] [id number], [place] [address]- 1102 Jul, [facility] [place] [facility] [address] [id number], [place] [address]- 8105 Jul, [facility] [place] [facility] [address] [id number] [place] [address]- 2478 Jul, [facility] [place] [facility] [address] [id number] [place] [address] Jul, [facility] [place] [facility] [address] [id number], [place] [address]- 3934 Jun, [facility] [place] [facility] [address] [id number], [place] [address]- 6678 Jun, [facility] [place] [facility] [address] [id number] [place] [address]- 6827 Jun, [facility] [place] [facility] [address] [facility] [id number], [place] [address]- 8112 Jun, [facility] [place] [facility] [address] [facility] [id number] [place] [address]- 3124 Jun, [facility] [place] [facility] [address] [id number], [place] [address]- 2051 Jun, [facility] [place] [facility] [address] [facility] [id number] [place] [address], [place] [address]- 2886 Jun, [facility] [place] [facility] [address] [facility] [id number], [place] [address]- 6463 Jun, [facility] [place] [facility] [address] [facility] [id number], [place] [address]- 2036 Jun, [facility] [place] [facility] [address] [facility] [id number], [place] [address]- 9513 Jun, [facility] [place] [facility] [address] [id number], [place] [address]- 0755 May, [facility] [place] [facility] [address] [facility] [id number], [place] [address]- 7584 May, [facility] [place] [facility] [address] [facility] [id number], [place] [address]- 3037 May, [facility] [place] [facility] [address] [facility] [id number], [place] [address]- 9486 May, [facility] [place] [facility] [address] [facility] [id number], [place] [address]- 7970 May, [facility] [place] [facility] [address] [facility] [id number], [place] [address]- 6914 May, [facility] [place] [facility] [address] [facility] [id number], [place] [address]- 1858 May, [facility] [place] [facility] [address] [id number] [place] [address]- 2004 May, 2012 [facility] [place] [facility] [address] [id number] [place] [address] May, [facility] [place] [facility] [address] [id number] [place] 2007 May, [facility] [place] [facility] [address] [id number] [place] [address]- 4590 17 May, 2013 [facility] [place] [facility] [address] [id number] [place] [address]- 3342 16 May, 2013 [facility] [place] [facility] [address] [id number] [place] [address]- 5622 16 May, 2013 [facility] [place] [facility] [address] [id number] [place] [address]- 3308 16 May, 2013 [facility] [place] [facility] [address] [id number] [place] [address]- 8367 16 May, 2013 [facility] [place] [facility] [address] [id number] [place] [address]- 9601 24 Apr, 2013 [facility] [place] [facility] [address] [id number] [place] [address]- 1358 23 Apr, 2013 [facility] [place] [facility] [address] [id number] [place] [address]- 8122 Apr, [facility] [place] [facility] [address] [id number] [place] [address]- 2135 Mar, [facility] [place] [facility] [address] [id number] [place] [address]- 3414 Mar, [facility] [place] [facility] [address] [id number] [place] 77[address] Mar, [facility] [place] [facility] [address] [id number] [place] [address]- 4354 Mar, [facility] [place] [facility] [address] [id number] [place] [address]- 9948 Mar, [facility] [place] [facility] [address] [id number] [place] [address]- 9263 Mar, [facility] [place] [facility] [address] [id number] [place] [address]- 8286 Feb, [facility] [place] [facility] [address] [id number] [place] [address]- 5938 Feb, [facility] [place] [facility] [address] [id number] [place] [address]- 5004 Feb, [facility] [place] [facility] [address] [id number] [place] [address]- 0982 Feb, [facility] [place] [facility] [address] [id number] [place] [address]- 4512 Feb, [facility] [place] [facility] [address] [id number] [place] [address]- 6157 Feb, [facility] [place] [facility] [address] [id number] [place] [address]- 1103 Feb, [facility] [place] [facility] [address] [id number] [place] [address]- 2882 Feb, [facility] [place] [facility] [address] [id number] [place] [address]- 0355 Feb, [facility] [place] [facility] [address] [id number] [place] [address]- 0862 Feb, [facility] [place] [facility] [address] [id number] [place] [address]- 4866 Jan, [facility] [place] [facility] [address] [id number] [place] [address]- 7856 Jan, [facility] [place] [facility] [address] [id number] [place] [address]- 4323 Jan, [facility] [place] [facility] [address] [id number] [place] [address]- 2659 Jan, [facility] [place] [facility] [address] [id number] [place] [address]- 9941 December, [facility] [address] [id number] [place] [address]- 6914 December, [facility] [address] [id number] [place] [address]- 5656 December, [facility] [address] [id number] [place] [address]- 9909 Nov, [facility] [address] [id number] [place] [address]- 0133 Nov, [facility] [address] [id number] [place] [address]- 6964 Nov, [facility] [address] [id number] [place] [address]- 8286 Nov, [facility] [address] [id number] [place] [address]- 0805 Nov, [facility] [address] [id number] [place] [address]- 7475 Nov, [facility] [address] [id number] [place] [address]- 0528 Oct, [facility] [address] [id number] [place] [address]- 2307 Oct, [facility] [address] [id number] [place] [address]- 4308 Oct, [facility] [address] [id number] [place] [address]- 1708 Sep, [facility] [place] [facility] [address] [id number] [place] [address]- 0004 Sep, [facility] [place] [facility] [address] [id number] [place] [address]- 5457 Sep, [facility] [place] [facility] [address] [id number] [place] [address]- 9032 Aug, [facility] [address] [id number] [place] [address]- 1896 Aug, [facility] [place] [facility] [address] [id number] [place] [address]- 4709 Aug, [facility] [place] [facility] [address] [id number] [place] [address]- 4333 Aug, [facility] [place] [facility] [address] [id number] [place] [address]- 8878 Jul, [facility] [place] [facility] [address] [id number] [place] [address]- 8775 Jul, [facility] [place] [facility] [address] [id number] [place] [address]- 2403 Jul, [facility] [place] [facility] [address] [id number] [place] [address]- 4163 Jul, [facility] [place] [facility] [address] [id number] [place] [address]- 9809 Jun, [facility] [place] [facility] [address] [id number] [place] [address]- 3727 Jun, [facility] [place] [facility] [address] [id number], [place] [address]- 1176 Jun, [facility] [place] [facility] [address] [id number], [place] [address]- 8449 Jun, [facility] [place] [facility] [address] [id number], [place] [address]- 1803 Jun, [facility] [place] [facility] [address] [id number] [place] [address]- 5273 Jun, [facility] [place] [facility] [address] [id number], [place] [address]- 0369 Jun, [facility] [place] [facility] [address] [id number], [place] [address]- 4678 Jun, [facility] [place] [facility] [address] [id number], [place] [address]- 2723 30 May, 2012 [facility] [place] [facility] [address] [id number] [place] [address]- 9748 30 May, 2012 [facility] [place] [facility] [address] [id number] [place] [address]- 7791 18 May, 2012 [facility] [place] [facility] [address] [facility] [id number] [place] [address]- 5468 18 May, 2012 [facility] [place] [facility] [address] [id number] [place] [address]- 5768 2012 [facility] [place] [facility] [address] [id number] [place] [address]- 8612 13 May, 2012 [facility] [place] [facility] [address] [id number] [place] [address]- 5525 11 May, 2012 [facility] [place] [facility] [address] [facility] [id number] [place] [address]- 7687 11 May, 2012 [facility] [place] [facility] [address] [facility] [id number] [place] [address]- 4765 10 May, 2012 [facility] [place] [facility] [address] [facility] [id number] [place] [address]- 1210 08 May, 2012 [facility] [place] [facility] [address] [facility] [id number] [place] [address]- 4275 24 Sep, 2011 [facility] [place] [facility] [address] [id number], [place] [address]- 8960 19 Sep, 2011 [facility] [place] [facility] [address] [id number], [place] [address]- 0567 18 Sep, 2011 [facility] [place] [facility] [address] [id number] [place] [address]- 7955 17 Sep, 2011 [facility] [place] [facility] [address] [facility] [id number] [place] [address]- 6229 16 Sep, 2011 [facility] [place] [facility] [address] [facility] [id number] [place] [address]- 3849 10 Sep, 2011 [facility] [place] [facility] [address] [id number] [place] [address]- 0696 Mar, [facility] [place] [facility] [address] [id number] [place] [address]- 6543 Mar, [facility] [place] [facility] [address] [id number] [place] [address]- 8786 Mar, [facility] [place] [facility] [address] [id number] [place] [address]- 7906 Mar, [facility] [place] [facility] [address] [id number] [place] [address]- 0713 Mar, [facility] [place] [facility] [address] [id number] [place] [address]- 3163 Mar, [facility] [place] [facility] [address] [id number] [place] [address]- 6968 Feb, [facility] [place] [facility] [address] [id number] [place] [address]- 6105 Feb, [facility] [place] [facility] [address] [id number] [place] [address]- 5880 Feb, [facility] [place] [facility] [address] [id number] [place] [address]- 9274 Feb, [facility] [place] [facility] [address] [id number] [place] [address]- 7195 Feb, [facility] [place] [facility] [address] [id number] [place] [address]- 9107 Feb, [facility] [place] [facility] [address] [id number] [place] [address]- 4595 Feb, [facility] [place] [facility] [address] [id number] [place] [address]- 7656 Feb, [facility] [place] [facility] [address] [id number] [place] [address]- 2546 Feb, [facility] [place] [facility] [address] [id number] [place] [address]- 8930 Jan, [facility] [place] [facility] [address] [id number] [place] [address]- 6939 Jan, [facility] [place] [facility] [address] [id number] [place] [address]- 1438 Jan, [facility] [place] [facility] [address] [id number] [place] [address]- 1377 Jan, [facility] [place] [facility] [address] [id number] [place] [address]- 8306 Jan, [facility] [place] [facility] [address] [id number] [place] [address]- 8109 Jan, [facility] [place] [facility] [address] [id number] [place] [address]- 8304 Jan, [facility] [place] [facility] [address] [id number] [place] [address]- 8770 Jan, [facility] [place] [facility] [address] [id number] [place] [address]- 2203 Jan, [facility] [place] [facility] [address] [id number] [place] [address]- 7715 December, [facility] [place] [facility] [address] [id number] [place] [address]- 4914 December, [facility] [place] [facility] [address] [id number] [place] [address]- 5021 December, [facility] [place] [facility] [address] [id number], [place] [address]- 7600 December, [facility] [place] [facility] [address] [id number] [place] [address]- 0266 December, [facility] [place] [facility] [address] [id number] [place] [address]- 3278 December, [facility] [place] [facility] [address] [id number] [place] [address]- 7496 December, [facility] [place] [facility] [address] [id number] [place] [address]- 4495 December, [facility] [address] [id number] [place] [address]- 5528 December, [facility] [place] [facility] [address] [id number] [place] [address]- 2176 December, [facility] [address] [id number] [place] [address]- 6428 Nov, [facility] [place] [facility] [address] [id number] [place] [address]- 7497 Nov, [facility] [address] [id number] [place] [address]- 7908 Nov, [facility] [place] [facility] [address] [id number] [place] [address]- 6348 Nov, [facility] [address] [id number] [place] [address]- 1180 16 Nov, 2011 [facility] [address] [id number] [place] [address]- 2321 Nov, [facility] [address] [id number] [place] [address]- 5418 Nov, [facility] [address] [id number] [place] [address]- 8367 Nov, [facility] [place] [facility] [address] [id number] [place] [address]- 0938 Nov, [facility] [place] [facility] [address] [id number] [place] [address]- 8558 Nov, [facility] [place] [facility] [address] [id number] [place] [address]- 6591 Oct, [facility] [place] [facility] [address] [id number] [place] [address]- 5012 Oct, [facility] [place] [facility] [address] [id number] [place] 6484 Oct, [facility] [place] [facility] [address] [id number] [place] [address]- 8037 23 Oct, 2011 [facility] [place] [facility] [address] [id number] [place] [address]- 6766 21 Oct, 2011 [facility] [place] [facility] [address] [id number] [place] [address]- 9303 20 Oct, 2011 [facility] [place] [facility] [address] [id number] [place] [address]- 7506 19 Oct, 2011 [facility] [place] [facility] [address] [id number] [place] [address]- 8451 19 Oct, 2011 [facility] [place] [facility] [address] [id number] [place] [address]- 7566 16 Oct, 2011 [facility] [place] [facility] [address] [id number] [place] [address]- 7326 14 Oct, 2011 [facility] [place] [facility] [address] [id number] [place] [address]- 2116 14 Oct, 2011 [facility] [place] [facility] [address] [id number] [place] [address]- 8367 09 Oct, 2011 [facility] [place] [facility] [address] [id number] [place] [address]- 0230 08 Oct, 2011 [facility] [place] [facility] [address] [id number] [place] [address]- 5622 06 Oct, 2011 [facility] [place] [facility] [address] [id number] [place] [address]- 1806 02 Oct, 2011 [facility] [place] [facility] [address] [id number] [place] [address]- 1889 28 Sep, 2011 [facility] [place] [facility] [address] [id number] [place] [address]- 1486 24 Sep, 2011 [facility] [place] [facility] [address] [id number] [place] [address]- 7591 20 Sep, 2011 [facility] [place] [facility] [address] [id number] [place] [address]- 1812 17 Sep, [address] [facility] [address] [id number] [place] [address] 2546 16 Sep, 2011 [facility] [place] [facility] [address] [id number] [place] [address] 2546 14 Sep, 2011 [facility] [address] [id number] [place] [address] 2546 13 Sep, 2011 [facility] [place] [facility] [address] [id number] [place] [address] 2546 10 Sep, 2011 [facility] [address] [id number] [place] [address] 06 Sep, 2011 [facility] [address] [id number] [place] [address] 2546 03 Sep, 2011 [facility] [address] [id number] [place] [address] Sep, [facility] [address] [id number] [place] [address] 30 Aug, 2011 [facility] [address] [id number] [place] [address] Aug, [facility] [address] [id number] [place] [address] [address] Aug, [facility] [address] [id number] [place] [address] [address], [facility] [address] [id number] [place] [address] 2548 Aug, [facility] [place] [facility] [address] [id number] [place] [address] Aug, [facility] [place] [facility] [address] [id number] [place] [address] Aug, [facility] [place] [facility] [address] [id number] [place] [address] Aug, [facility] [place] [facility] [address] [id number] [place] [address] 16 Aug, 2011 [facility] [address] [id number] [place] [address] 13 Aug, 2011 [facility] [address] [id number] [place] [address] 8616 11 Aug, 2011 [facility] [address] [id number] [place] [address] Aug, [facility] [address] [id number] [place] [address] Aug, [facility] [address] [id number] [place] [address] Aug, [facility] [address] [id number] [place] [address] Aug, [facility] [address] [id number] [place] [address] Aug, [facility] [address] [id number] [place] [address] Aug, [facility] [address] [id number] [place] [address] Jul, [facility] [address] [id number] [place] [address] Jul, [facility] [address] [id number] [place] [address] Jul, [facility] [place] [facility] [address] [id number] [place] [address] Jul, [facility] [place] [facility] [address] [id number] [place] [address] Jul, [facility] [place] [facility] [address] [id number] [place] [address] Jul, [facility] [address] [id number], [place] [address] Jul, [facility] [address] [id number], [place] [address] Jul, [facility] [id number] [address] Jul, [facility] [address] [id number], [place] [address] Jul, [facility] [address] [id number], [place] [address] Jul, [facility] [address] [id number], [place] [address] Jun, [facility] [id number], [place] [address] Jun, [facility] [address] [id number], [place] [address] Jun, IMMUNIZATIONS No Known Immunizations SOCIAL HISTORY Never Assessed REASON FOR VISIT Requests return call PLAN OF CARE VITAL SIGNS MEDICATIONS Unknown [...]
--- OUTSIDE RECORDS SUMMARY | 2018-08-05 03:14 | XMS REPORT ---
Author Author HEATHER FIEN [facility] Address [address] [place] [address] Care Team Providers Care Communications Clerk Name Role Phone HEATHER FINE Unavailable PROBLEMS Type Condition ICD9-CM Code RTM73-HB Code Onset Dates Condition Status SNOMED Code Problem Unspecified cirrhosis of liver K74.60 Active 713542995 Problem Lymphocytosis D72.820 Active 23014457 Problem Secondary esophageal varices with bleeding I85.11 Active 57112537 Problem Anxiety F41.9 Active 89714707 Problem Asthma J45.909 Active 720364075 Problem Chronic back pain M54.9 Active 660084250 Problem Dysthymia F34.1 Active 38765793 Problem Thrombocytosis D47.3 Active 3954414 Problem Splenomegaly R16.1 Active 60613372 Problem 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 Active 184544043 Problem History of hepatitis C Z86.19 Active [id number] ALLERGIES Substance Reaction Event Type Date Status Sulfamethoxazole-Trimethoprim Unknown Drug Allergy Feb, Active ENCOUNTERS Encounter Location Date Diagnosis [place] [id number] [place] [address] 29057- 5457 Mar, Anxiety F41.9 [facility] [place] [address] [place] [id number] [place] [address] 51632- 2838 Mar, [facility] [place] [id number] [place] [address] 97459- 8172 Mar, Right arm pain M79.601 [facility] [place] [address] [place] [id number] [place] [address] 49402- 8210 Mar, Anxiety F41.9 [facility] [place] [id number] [place] [address] 13295- 7277 Feb, [facility] [place] [address] [address] [id number] [place] [address] 96461- 8239 Feb, Chronic back pain M54.9 ; Anxiety F41.9 and Dysuria R30.0 [facility] [place] [id number] [place] [address] 51388- 9620 Feb, [facility] [place] [address] 80028- 9622 Feb, Anxiety F41.9 [facility] [place] [address] 58269- 3702 Jan, [facility] [place] [address] 05400- 4567 Jan, Chronic back pain M54.9 and Anxiety F41.9 [facility] [place] [address] [place] [id number] [place] [address] 07315- 9029 December, Chronic back pain M54.9 and Anxiety F41.9 [place] [address] 85688- 7186 Nov, Chronic back pain M54.9 and Anxiety F41.9 [facility] [place] [address] 63407- 9009 Oct, Chronic back pain M54.9 and Anxiety F41.9 [place] [address] [place] [id number] [place] [address] 01284- 3453 Oct, [facility] [place] [address] [place] [id number] [place] [address] 72231- 2427 Sep, Chronic back pain M54.9 ; Anxiety F41.9 ; Pain of left leg M79.605 and Pain in right leg M79.604 [facility] [place] [address] [place] [id number] [place] [address] 11432- 3725 Sep, Anxiety F41.9 and Chronic back pain M54.9 [facility] [place] [address] [place] [id number] [place] [address] 23180- 0931 Sep, [place] [address] [place] [id number] [place] [address] 24373- 2044 Aug, Anxiety F41.9 [facility] [place] [address] 55171- 0233 Jul, Anxiety F41.9 [facility] [place] [address] [place] [id number] [place] [address] 89070- 1909 Jul, [facility] [place] [address] 51920- 3641 Jul, Viral syndrome B34.9 ; Chronic back pain M54.9 and Dysuria R30.0 [facility] [place] [address] 55108- 0095 Jun, [facility] [place] [address] [place] [address] [id number] [place] [address] 87917- 6804 Jun, Anxiety F41.9 [facility] [address] [place] [address] [id number] [place] [address] 63751 -7901 Jun, Dysuria R30.0 and Acute cystitis without hematuria N30.00 [facility] [place] [address] [place] [id number] [place] [address] 77122- 6325 Jun, [facility] [place] [address] [place] [id number] [place] [address] 49825- 1230 May, Anxiety F41.9 [facility] [place] [address] [place] [id number] [place] [address] 69156- 6030 May, Anxiety F41.9 [facility] [place] [address] [place] [id number] [place] [address] 63958- 5177 Apr, [facility] [place] [address] [place] [id number] [place] [address] 43944- 8423 Apr, Chronic back pain M54.9 and Anxiety F41.9 [facility] [place] [address] [place] [id number] [place] [address] 57553- 6377 Mar, [facility] [place] [address] [place] [address]- 8125 Mar, [facility] [place] [address] [address]- 1123 Mar, Well woman exam Z01.419 ; Cervical cancer screening Z12.4 ; Breast cancer screening Z12.31 and Colon cancer screening Z12.11 [facility] [place] [address] [address]- 9657 Mar, Chronic back pain M54.9 and Anxiety F41.9 [facility] [place] [address] [place] [id number] [place] [address] 56341- 8223 Mar, [facility] [place] [address] [place] [id number] [place] [address] 76453- 7982 Feb, Chronic back pain M54.9 and Anxiety F41.9 [facility] [place] [address] [place] [id number] [place] [address] 14052- 5057 Feb, [facility] [place] [address] [place] [id number] [place] [address] 01259- 7293 Feb, [facility] [place] [address] [place] [id number] [place] [address] 14761- 1587 Jan, Chronic back pain M54.9 and Anxiety F41.9 [facility] [place] [address] [address]- 7698 Jan, [facility] [place] [address] [place] [id number] [place] [address] 31055- 2231 Jan, [facility] [place] [address] [address]- 0887 December, Chronic back pain M54.9 and Anxiety F41.9 [facility] [place] [id number] [place] [address] 58329- 0821 Nov, Chronic back pain M54.9 and Anxiety F41.9 [facility] [place] [address] [address]- 8402 Oct, Chronic back pain M54.9 and Anxiety F41.9 [facility] [place] [address] [place] [id number] [place] [address] 99226- 5454 Oct, Chronic back pain M54.9 [facility] [place] [address] [place] [id number] [place] [address] 49669- 8136 Sep, Anxiety F41.9 and Chronic back pain M54.9 [facility] [place] [address] [place] [id number] [place] [address] 04887- 8676 Aug, Anxiety F41.9 and Chronic back pain M54.9 [facility] [place] [address] [place] [id number] [place] [address] 60654- 9986 Aug, [facility] [place] [address] 68850- 4324 Jul, Chronic back pain M54.9 and Anxiety F41.9 [facility] [place] [address] [place] [id number] [place] [address] 54715- 2172 Jul, Anxiety F41.9 and Chronic back pain M54.9 [facility] [address] [place] [address] Jul, [facility] [place] [address] [place] [id number] [place] [address] 48954- 0399 Jul, Anxiety F41.9 [facility] [place] [address] [place] [id number] [place] [address] 05632- 7449 Jul, Anxiety F41.9 and Dysuria R30.0 [facility] [place] [address] [place] [id number] [place] [address] 93152- 8292 Jul, Chronic back pain M54.9 and Anxiety F41.9 [facility] [place] [address] [place] [id number] [place] [address] 80346- 9487 Jun, Chronic back pain M54.9 [facility] [place] [address] [place] [id number] [place] [address] 84796- 9456 Jun, Chronic back pain M54.9 [facility] [place] [address] [facility] [id number] [address]- 1181 May, Anxiety F41.9 [facility] [place] [address] [facility] [id number] [place] [address] 31032- 9616 May, Chronic back pain M54.9 [facility] [place] [address] [place] [id number] [place] [address], [place] [address]- 0606 Apr, [facility] [place] [address] [facility] [id number] [place] [address] 32912 2546 Apr, [facility] [place] [address] [facility] [id number] [place] [address], [place] [address]- 2166 Apr, [facility] [place] [address] [place] [id number] [place] [address] 00247- 5631 Apr, Chronic back pain M54.9 [facility] [place] [address] [place] [id number] [place] [address] 90886- 2501 Mar, Chronic back pain M54.9 [facility] [place] [address] [place] [id number] [place] [address] 58047- 6231 Feb, Grief F43.20 [facility] [place] [address] [place] [id number] [place] [address] 18673- 1178 Feb, Chronic back pain M54.9 and Anxiety F41.9 [facility] [place] [address] [place] [address] 10227- 8631 Feb, Chronic back pain M54.9 [facility] [place] [address] [facility] [id number] [address]- 2545 Jan, Chronic back pain M54.9 [facility] [place] [address] [place] [id number] [place] [address] 87095- 3286 December, [facility] [place] [address] [place] [id number] [place] [address] 74222- 2546 December, Grief F43.20 [facility] [place] [address] [place] [id number] [place] [address] 04401- 6338 Nov, [facility] [place] [address] [place] [address] 06929- 7553 Oct, Cervicalgia M54.2 ; Secondary esophageal varices with bleeding I85.11 and Mouth pain K13.79 [facility] [place] [address] [place] [id number] [place] [address] 35645- 1225 Oct, [facility] [place] [address] [place] [id number] [place] [address] 75469- 8723 14 Oct, 2015 [facility] [place] [address] [place] [id number] [place] [address] 41619- 4227 Sep, [facility] [place] [address] [place] [id number] [place] [address] 70320- 8593 Sep, Acute maxillary sinusitis, recurrence not specified J01.00 [facility] [place] [address] [place] [id number] [place] [address] 15673- 4183 Aug, [facility] [place] [address] [id number] [place] [address] 43109- 6687 Aug, [facility] [place] [id number] [place] [address] 10197- 9691 Aug, Dysuria R30.0 and Chronic back pain M54.9 [facility] [place] [address] [place] [id number] [place] [address] 60972- 6204 Jul, [facility] [place] [address] [place] [id number] [place] [address] 94773- 4708 Jul, [facility] [place] [address] [place] [address] 11215- 0464 Jul, [facility] [place] [address] [place] [id number] [place] [address] 56760- 5958 Jul, Chronic back pain M54.9 [facility] [place] [address] [place] [address] 520158- 8039 Jul, Dysthymia F34.1 and Chronic back pain M54.9 [facility] [place] [address] [address]- 1130 Jun, [facility] [place] [address] [id number] [place] [address] 42665- 8477 Jun, [facility] [place] [address] [id number] [place] [address] 01956- 3532 May, [facility] [place] [address] [place] [id number] [place] [address] 20980- 8077 May, [facility] [place] [address] [place] [id number] [place] [address] 69616- 1091 May, [facility] [place] [address] [place] [id number] [place] [address] 87864- 2310 May, Encounter for immunization Z23 [facility] [place] [address] [place] [id number] [place] [address] 08729- 9304 Apr, [facility] [place] [address] [id number] [place] [address] 77273- 0141 Apr, [facility] [place] [address] [id number] [place] [address] 43587- 8594 Mar, [facility] [place] [address] [place] [id number] [place] [address] 46655- 9672 Mar, Back pain 724.5 [facility] [place] [address] [id number] [place] [address] 16532- 5805 Mar, Cough 786.2 and Back pain 724.5 [facility] [place] [address] [place] [id number] [place] [address] 19072- 4711 Mar, [facility] [place] [address] [id number] [place] [address] 99185- 6946 Mar, [facility] [place] [address], [place] [address]- 9291 December, [facility] [place] [address] [place] [address] 24527- 7470 December, [facility] [place] [facility] [address] [id number] [place] [address]- 7368 Nov, [facility] [place] [facility] [address] [id number] [place] [address]- 7576 Nov, [facility] [place] [facility] [address] [id number] [place] [address]- 2730 Oct, [facility] [place] [facility] [address] [id number] [place] [address]- 8980 Oct, [facility] [place] [facility] [address] [id number] [place] [address]- 9286 Sep, [facility] [place] [facility] [address] [id number] [place] [address]- 8606 Sep, [facility] [place] [facility] [address] [id number] [place] [address]- 6566 Sep, [facility] [place] [facility] [address] [id number] [place] [address]- 8336 Sep, [facility] [place] [facility] [address] [id number] [place] [address]- 1371 Sep, [facility] [place] [facility] [address] [id number] [place] [address]- 7179 Sep, [facility] [place] [facility] [address] [id number] [place] [address]- 3596 Sep, [facility] [place] [facility] [address] [id number] [place] [address]- 1934 Sep, [facility] [place] [facility] [address] [id number] [place] [address]- 4075 Aug, [facility] [place] [facility] [address] [id number] [place] [address]- 0661 Aug, [facility] [place] [facility] [address] [id number] [place] [address]- 5519 Aug, [facility] [place] [facility] [address] [id number] [place] [address]- 4655 13 Aug, 2014 [facility] [place] [facility] [address] [id number] [place] [address]- 3672 13 Aug, 2014 [facility] [place] [facility] [address] [id number] [place] [address]- 7709 12 Aug, 2014 [facility] [place] [facility] [address] [id number] [place] [address]- 2035 Aug, [facility] [place] [facility] [address] [id number] [place] [address]- 5848 Jul, [facility] [place] [facility] [address] [id number] [place] [address]- 1590 Jul, [facility] [place] [facility] [address] [id number] [place] [address]- 0535 Jul, [facility] [place] [facility] [address] [id number] [place] [address]- 9031 Jul, [facility] [place] [facility] [address] [id number] [place] [address]- 4755 Jul, [facility] [place] [facility] [address] [id number] [place] [address]- 1809 Jul, [facility] [place] [facility] [address] [facility] [id number] [place] [address]- 2174 05 Jul, 2014 [facility] [place] [facility] [address] [id number] [place] [address]- 2388 05 Jul, 2014 [facility] [place] [facility] [address] [id number] [place] [address]- 3371 Jun, [facility] [place] [facility] [address] [id number] [place] [address]- 7794 Jun, [facility] [place] [facility] [address] [id number] [place] [address]- 3266 Jun, [facility] [place] [facility] [address] [id number] [place] [address]- 8365 Jun, [facility] [place] [facility] [address] [id number] [place] [address]- 0452 Jun, [facility] [place] [facility] [address] [id number] [place] [address]- 4380 Jun, [facility] [place] [facility] [address] [id number] [place] [address]- 1310 Jun, [facility] [place] [facility] [address] [id number] [place] [address]- 8799 May, [facility] [place] [facility] [address] [id number] [place] [address]- 3811 May, [facility] [place] [facility] [address] [id number] [place] [address]- 8875 May, [facility] [place] [facility] [address] [id number] [place] [address]- 5083 May, [facility] [place] [facility] [address] [id number] [place] [address]- 9024 2014 [facility] [place] [facility] [address] [id number] [place] [address]- 5888 2014 [facility] [place] [facility] [address] [id number] [place] [address]- 4633 2014 [facility] [place] [facility] [address] [id number] [place] [address]- 1083 2014 [facility] [place] [facility] [address] [id number] [place] [address]- 1589 13 May, 2014 [facility] [place] [facility] [address] [id number] [place] [address]- 2746 13 May, 2014 [facility] [place] [facility] [address] [id number] [place] [address]- 5966 10 May, 2014 [facility] [place] [facility] [address] [id number] [place] 0326 10 May, 2014 [facility] [place] [facility] [address] [id number] [place] [address]- 8259 May, [facility] [place] [facility] [address] [id number] [place] [address]- 3552 May, [facility] [place] [facility] [address] [id number] [place] [address]- 6109 Apr, [facility] [place] [facility] [address] [id number] [place] [address]- 3669 Apr, [facility] [place] [facility] [address] [id number] [place] [address]- 6671 Apr, [facility] [place] [facility] [address] [id number] [place] [address]- 9641 Apr, [facility] [place] [facility] [address] [id number] [place] [address] Apr, [facility] [place] [facility] [address] [id number] [place] [address] Apr, [facility] [place] [facility] [address] [id number] [place] [address] Apr, [facility] [place] [facility] [address] [id number] [place] [address] Mar, [facility] [place] [facility] [address] [id number] [place] [address] Mar, [facility] [place] [facility] [address] [id number] [place] [address] Mar, [facility] [place] [facility] [address] [id number] [place] [address]- [address] Mar, [facility] [place] [facility] [address] [id number] [place] [address] Mar, [facility] [place] [facility] [address] [id number] [place] [address] Mar, [facility] [place] [facility] [address] [id number] [place] [address] Feb, [facility] [place] [facility] [address] [id number] [place] [address] Feb, [facility] [address] [id number] [place] [address] Feb, [facility] [place] [facility] [address] [id number] [place] [address] Feb, [facility] [place] [facility] [address] [id number] [place] [address]- [address] Feb, [facility] [place] [facility] [address] [id number] [place] [address] Feb, [facility] [place] [facility] [address] [id number] [place] [address]- [address] Feb, [facility] [place] [facility] [address] [id number] [place] [address] Feb, [facility] [place] [facility] [address] [id number] [place] [address]- [address] Jan, [facility] [address] [id number] [place] [address] Jan, [facility] [place] [facility] [address] [id number] [place] [address]- [address] December, [facility] [address] [id number] [place] [address]- [address] December, [facility] [place] [facility] [address] [id number] [place] [address] December, [facility] [place] [facility] [address] [id number] [place] [address]- [address] December, [facility] [place] [facility] [address] [id number] [place] [address]- [address] December, [facility] [place] [facility] [address] [id number] [place] [address]- [address] December, [facility] [place] [facility] [address] [id number] [place] [id number] December, [facility] [place] [facility] [address] [id number] [place] [address]- [address]93 December, [facility] [place] [facility] [address] [id number] [place] [address]- [address] December, [facility] [place] [facility] [address] [id number] [place] [address]- [address] December, [facility] [place] [facility] [address] [id number] [place] [address]- [address] December, [facility] [place] [facility] [address] [id number] [place] [address]- [address] December, [facility] [place] [facility] [address] [id number] [place] [address]- [address] Nov, [facility] [place] [facility] [address] [id number] [place] [address]- [address] Nov, [facility] [place] [facility] [address] [id number] [place] [address] Nov, [facility] [place] [facility] [address] [id number] [place] [address]- [address]183 Nov, [facility] [place] [facility] [address] [id number] [place] [address]- [address] Nov, [facility] [place] [facility] [address] [id number] [place] [address]- [address] Nov, [facility] [place] [facility] [address] [id number] [place] [address]- [address] Nov, [facility] [place] [facility] [address] [id number] [place] [address]- [address] Nov, [facility] [place] [facility] [address] [id number] [place] [address] Nov, [facility] [place] [facility] [address] [id number] [place] [address]- [address] Nov, [facility] [place] [facility] [address] [id number] [place] [address] Nov, [facility] [place] [facility] [address] [id number] [place] [address]- [address] Nov, [facility] [facility] [address] [id number] [place] [address] Nov, [facility] [place] [facility] [address] [id number] [place] [address] 6253 Oct, [facility] [place] [facility] [address] [id number] [place] [address] 7154 Oct, [facility] [place] [facility] [address] [id number] [place] [address]- 2966 28 Sep, 2013 [facility] [place] [facility] [address] [id number] [place] [address] 4040 Sep, [facility] [place] [facility] [address] [id number] [place] [address]- 0369 Sep, [facility] [place] [facility] [address] [id number] [place] [address]- 1365 24 Sep, 2013 [facility] [place] [facility] [address] [id number] [place] [address]- 9181 24 Sep, 2013 [facility] [place] [facility] [address] [id number] [place] [address]- 2864 20 Sep, 2013 [facility] [place] [facility] [address] [id number] [place] [address]- 6692 20 Sep, 2013 [facility] [place] [facility] [address] [id number] [place] [address]- 1162 18 Sep, 2013 [facility] [place] [facility] [address] [id number] [place] [address]- 3913 10 Sep, 2013 [facility] [place] [facility] [address] [id number] [place] [address]- 3049 10 Sep, 2013 [facility] [place] [facility] [address] [id number] [place] [address]- 1661 Sep, [facility] [place] [address] [id number] [place] [address]- 6006 Sep, [facility] [place] [facility] [address] [id number] [place] [address]- 3241 Aug, [facility] [place] [address] [id number] [place] [address]- 0665 Aug, [facility] [place] [address] [id number] [place] [address]- 9186 Aug, [facility] [place] [facility] [address] [id number] [place] [address]- 4130 Aug, [facility] [place] [facility] [address] [id number] [place] [address]- 7765 Aug, [facility] [place] [address] [id number] [place] [address]- 4436 Aug, [facility] [place] [facility] [address] [id number] [place] [address]- 6913 Aug, [facility] [place] [facility] [address] [id number] [place] [address]- 8725 Aug, [facility] [place] [facility] [address] [id number] [place] [address]- 9414 Aug, [facility] [address] [id number], [place] [address]- 4226 Aug, [facility] [address] [id number], [place] [address]- 1386 Aug, [facility] [place] [facility] [address] [id number] [place] [address]- 3168 Aug, [facility] [place] [address] [id number], [place] [address]- 2702 Aug, [facility] [address] [id number] [place] [address]- 5842 Aug, [facility] [place] [facility] [address] [id number] [place] [address]- 6475 Aug, [facility] [address] [id number] [place] [address]- 1682 Aug, [facility] [address] [id number] [place] [address]- 9081 Aug, [facility] [address] [id number] [place] [address]- 2123 Aug, [facility] [address] [id number] [place] [address]- 1025 Aug, [facility] [address] [id number] [place] [address]- 6248 Aug, [facility] [address] [id number] [place] [address]- 5883 Aug, [facility] [address] [id number] [place] [address]- 4655 Aug, [facility] [address] [id number] [place] [address]- 1889 Aug, [facility] [address] [id number] [place] [address]- 1511 Jul, [facility] [address] [id number] [place] [address]- 3605 Jul, [facility] [address] [id number] [place] [address]- 5268 Jul, [facility] [address] [id number] [place] [address]- 2495 Jul, [facility] [place] [address] [id number] [place] [address]- 5108 Jul, [facility] [address] [id number] [place] [address]- 1950 Jul, [facility] [address] [id number] [place] [address]- 9365 Jun, [facility] [address] [id number] [place] [address]- 0647 Jun, [facility] [address] [id number] [place] [address]- 2114 Jun, [facility] [address] [id number] [place] [address]- 1510 Jun, [facility] [address] [id number] [place] [address]- 5088 Jun, [facility] [address] [id number] [place] [address]- 1672 Jun, [facility] [address] [id number] [place] [address]- 9930 Jun, [facility] [address] [id number] [place] [address]- 1888 Jun, [facility] [address] [id number] [place] [address]- 8422 Jun, [facility] [address] [id number] [place] [address]- 8462 Jun, [facility] [address] [id number] [place] [address]- 4726 May, [facility] [address] [id number] [place] [address]- 8588 May, [facility] [address] [id number], [place] [address]- 4022 May, [facility] [address] [id number] [place] [address]- 3411 May, [facility] [address] [id number] [place] [address]- 6183 May, [facility] [address] [id number], [place] [address]- 5161 May, [facility] [address] [id number], [place] [address]- 7745 24 May, 2013 [facility] [address] [id number] [place] [address]- 9938 May, [facility] [address] [id number] [place] [address]- 8607 May, [facility] [address] [id number] [place] [address]- 0721 May, [facility] [address] [id number] [place] [address]- 2710 17 May, 2013 [facility] [address] [id number] [place] [address]- 7230 16 May, 2013 [facility] [address] [id number] [place] [address]- 9587 16 May, 2013 [facility] [address] [id number] [place] [address]- 0778 16 May, 2013 [facility] [address] [id number] [place] [address]- 6594 16 May, 2013 [facility] [address] [id number] [place] [address]- 7311 24 Apr, 2013 [facility] [address] [id number] [place] [address]- 3453 23 Apr, 2013 [facility] [address] [id number] [place] [address]- 9589 Apr, [facility] [address] [id number] [place] [address]- 2844 Mar, [facility] [address] [id number] [place] [address]- 5772 Mar, [facility] [address] [id number] [place] [address]- 7370 Mar, [facility] [address] [id number] [place] [address]- 9702 Mar, [facility] [address] [id number] [place] [address] 2548 Mar, [facility] [address] [id number] [place] [address]- 1720 Mar, [facility] [address] [id number] [place] [address]- 8830 Feb, [facility] [address] [id number] [place] [address]- 5862 Feb, [facility] [address] [id number] [place] [address]- 5635 Feb, [facility] [address] [id number] [place] [address]- 2349 Feb, [facility] [address] [id number] [place] [address]- 3174 Feb, [facility] [address] [id number] [place] [address]- 3619 Feb, [facility] [address] [id number] [place] [address]- 5801 Feb, [facility] [address] [id number] [place] [address]- 2000 Feb, [facility] [address] [id number] [place] [address]- 4901 Feb, [facility] [address] [id number] [place] [address]- 0695 Feb, [facility] [address] [id number] [place] [address]- 8944 Jan, [facility] [address] [id number] [place] [address]- 0024 Jan, [facility] [address] [id number] [place] [address]- 3579 Jan, [facility] [address] [id number] [place] [address]- 5802 Jan, [facility] [address] [id number] [place] [address]- 0678 December, [facility] [address] [id number] [place] [address]- 4222 December, [facility] [address] [id number] [place] [address]- 7844 December, [facility] [address] [id number] [place] [address]- 5669 Nov, [facility] [address] [id number] [place] [address]- 1834 Nov, [facility] [address] [id number] [place] [address]- 6799 Nov, [facility] [address] [id number] [place] [address]- 0770 Nov, [facility] [address] [id number] [place] [address]- 3370 Nov, [facility] [address] [id number] [place] [address]- 0534 Nov, [facility] [address] [id number] [place] [address]- 3380 Oct, [facility] [address] [id number] [place] [address]- 3411 Oct, [facility] [address] [id number] [place] [address]- 5134 Oct, [facility] [address] [id number] [place] [address]- 6699 Sep, [facility] [address] [id number] [place] [address]- 8984 Sep, [facility] [address] [id number] [place] [address]- 0911 Sep, [facility] [address] [id number] [place] [address]- 2588 Aug, [facility] [address] [id number] [place] [address]- 1423 Aug, [facility] [address] [id number] [place] [address]- 0256 Aug, [facility] [address] [id number] [place] [address]- 7159 Aug, [facility] [address] [id number] [place] [address]- 4248 Jul, [facility] [address] [id number] [place] [address]- 1612 Jul, [facility] [address] [id number] [place] [address]- 1890 Jul, [facility] [address] [id number] [place] [address]- 9422 Jul, [facility] [address] [id number] [place] [address]- 1890 Jun, [facility] [address] [id number] [place] [address]- 2868 Jun, [facility] [address] [facility] [id number] [place] [address]- 2154 Jun, [facility] [address] [id number] [place] [address]- 8821 Jun, [facility] [address] [id number] [place] [address]- 5088 Jun, [facility] [address] [id number] [place] [address]- 2949 Jun, [facility] [address] [id number] [place] [address]- 4728 Jun, [facility] [address] [id number] [place] [address]38 Jun, [facility] [address] [id number] [place] [address]- 4481 30 May, 2012 [facility] [address] [id number] [place] [address]- 8959 30 May, 2012 [facility] [address] [id number] [place] [address]- 1560 18 May, 2012 [facility] [address] [id number] [place] [address]- 2504 18 May, 2012 [facility] [address] [id number] [place] [address]- 2462 2012 [facility] [address] [id number] [place] [address]- 0844 13 May, 2012 [facility] [address] [id number] [place] [address]- 3840 11 May, 2012 [facility] [address] [id number] [place] [address]- 8724 11 May, 2012 [facility] [address] [id number] [place] [address]- 3358 10 May, 2012 [facility] [address] [id number] [place] [address]- 3319 08 May, 2012 [facility] [address] [id number] [place] [address]- 9020 24 Sep2011 [facility] [address] [id number], [place] [address]- 2825 19 Sep2011 [facility] [address] [id number] [place] [address]- 8525 18 Sep2011 [facility] [address] [id number] [place] [address]- 3966 17 Sep2011 [facility] [address] [id number] [place] [address]- 3024 16 Sep, 2011 [facility] [address] [id number] [place] [address]- 0729 Apr, [facility] [address] [id number] [place] [address]- 4134 Mar, [facility] [address] [id number] [place] [address]- 7055 Mar, [facility] [address] [id number] [place] [address]- 2871 Mar, [facility] [address] [id number] [place] [address]- 5736 Mar, [facility] [address] [id number] [place] [address]- 9948 Mar, [facility] [address] [id number] [place] [address]- 2497 Mar, [facility] [address] [id number] [place] [address]- 8310 Feb, [facility] [address] [id number] [place] [address]- 2651 Feb, [facility] [address] [id number] [place] [address]- 1752 Feb, [facility] [address] [id number] [place] [address]- 2588 Feb, [facility] [address] [id number] [place] [address]- 7844 Feb, [facility] [facility] [address] [id number] [place] [address]- 6019 Feb, [facility] [facility] [address] [id number] [place] [address]- 5942 Feb, [facility] [address] [id number] [place] [address]- 9743 Feb, [facility] [place] [facility] [address] [id number] [place] [address]- 7556 Feb, [facility] [facility] [address] [id number] [place] [address]- 7066 29 Jan, 2012 [facility] [address] [id number] [place] [address]- 9104 Jan, [facility] [facility] [address] [id number] [place] [address]- 6295 Jan, [facility] [address] [id number] [place] [address]- 8470 Jan, [facility] [address] [id number] [place] [address]- 0076 15 Jan, 2012 [facility] [address] [id number] [place] [address]- 1937 Jan, [facility] [address] [id number] [place] [address]- 9150 Jan, [facility] [address] [id number] [place] [address]- 6546 Jan, [facility] [address] [id number] [place] [address]- 8912 Jan, [facility] [address] [id number] [place] [address]- 5456 December, [facility] [address] [id number] [place] [address]- 0374 December, [facility] [address] [id number] [place] [address]- 9075 December, [facility] [address] [id number] [place] [address]- 2299 December, [facility] [place] [facility] [address] [id number] [place] [address]- 5396 December, [facility] [address] [id number] [place] [address]- 4443 December, [facility] [address] [id number] [place] [address]- 7344 December, [facility] [address] [id number] [place] [address]- 5779 December, [facility] [place] [facility] [address] [id number] [place] [address]- 0976 December, [facility] [place] [facility] [address] [id number] [place] [address]- 7853 December, [facility] [place] [facility] [address] [id number] [place] [address]- 5574 Nov, [facility] [place] [facility] [address] [id number] [place] [address]- 3251 Nov, [facility] [place] [facility] [address] [id number] [place] [address]- 0169 Nov, [facility] [place] [facility] [address] [id number] [place] [address]- 5945 Nov, [facility] [place] [facility] [address] [id number] [place] [address]- 7650 16 Nov, 2011 [facility] [place] [facility] [address] [id number] [place] [address]- 1190 Nov, [facility] [place] [facility] [address] [id number] [place] [address]- 8411 Nov, [facility] [place] [facility] [address] [id number] [place] [address]- 5915 Nov, [facility] [place] [facility] [address] [id number] [place] [address]- 0099 Nov, [facility] [place] [facility] [address] [id number] [place] [address]- 7078 Nov, [facility] [place] [facility] [address] [id number] [place] [address]- 6291 Oct, [facility] [place] [facility] [address] [id number] [place] 2983 Oct, [facility] [place] [facility] [address] [id number], [place] [address]- 4169 23 Oct, 2011 [facility] [address] [id number] [place] [address]- 7106 23 Oct, 2011 [facility] [place] [facility] [address] [id number] [place] [address]- 8486 21 Oct, 2011 [facility] [address] [id number] [place] [address]- 1936 20 Oct, 2011 [facility] [address] [id number] [place] [address]- 2866 19 Oct, 2011 [facility] [address] [id number] [place] [address]- 8905 19 Oct, 2011 [facility] [address] [id number] [place] [address]- 6356 16 Oct, 2011 [facility] [address] [facility] [id number] [place] [address]- 1860 14 Oct, 2011 [facility] [address] [id number] [place] [address]- 5733 14 Oct, 2011 [facility] [address] [id number] [place] [address]- 1233 09 Oct, 2011 [facility] [address] [facility] [id number] [place] [address]- 5296 08 Oct, 2011 [facility] [address] [id number] [place] [address]- 2176 06 Oct, 2011 [facility] [place] [facility] [address] [id number] [place] [address]- 1246 02 Oct, 2011 [facility] [place] [facility] [address] [id number] [place] [address]- 2412 28 Sep, 2011 [facility] [place] [facility] [address] [id number] [place] [address]- 2606 24 Sep, 2011 [facility] [place] [facility] [address] [id number] [place] [address]- 1986 20 Sep, 2011 [facility] [place] [facility] [address] [id number] [place] [address] 2546 17 Sep, 2011 [facility] [place] [facility] [address] [id number] [place] [address] 2546 16 Sep, 2011 [facility] [place] [facility] [address] [id number] [place] [address] 25[address] 14 Sep, 2011 [facility] [place] [facility] [address] [id number] [place] [address] 13 Sep, 2011 [facility] [place] [facility] [address] [id number] [place] [address]46 10 Sep, 2011 [facility] [place] [facility] [address] [id number] [place] [address]46 06 Sep, 2011 [facility] [place] [facility] [address] [id number] [place] [address] 03 Sep, 2011 [facility] [place] [facility] [address] [id number] [place] [address] Sep, [facility] [place] [facility] [address] [id number] [place] [address] Aug, [facility] [place] [facility] [address] [id number] [place] [address] Aug, [facility] [place] [facility] [address] [id number] [place] [address] Aug, [facility] [place] [facility] [address] [id number] [place] [address] 2546 Aug, [facility] [place] [facility] [address] [id number] [place] [address] 2546 Aug, [facility] [place] [facility] [address] [id number] [place] [address] Aug, [facility] [place] [facility] [address] [id number] [place] [address] Aug, [facility] [place] [facility] [address] [id number] [place] [address] 17 Aug, 2011 [facility] [address] [id number] [place] [address] 16 Aug, 2011 [facility] [address] [id number] [place] [address] 13 Aug, 2011 [facility] [address] [id number] [place] [address] 11 Aug, 2011 [facility] [address] [id number] [place] [address] 10 Aug, 2011 [facility] [address] [id number] [place] [address] Aug, [facility] [address] [id number] [place] [address] Aug, [facility] [address] [id number] [place] [address] Aug, [facility] [address] [id number] [place] [address] Aug, [facility] [address] [id number] [place] [address] Aug, [facility] [address] [id number] [place] [address] Jul, [facility] [address] [id number] [place] [address] 28 Jul, 2011 [facility] [address] [id number] [place] [address] Jul, [facility] [address] [id number] [place] [address] Jul, [facility] [place] [facility] [address] [id number] [place] [address] Jul, [facility] [address] [id number] [place] [address] Jul, [facility] [place] [address] [facility] [id number] [address] Jul, [facility] [place] [id number], [place] [address] Jul, [facility] [place] [id number], [place] [address] Jul, [facility] [place] [id number], [place] [address] Jul, [facility] [place] [address] [id number] [address] Jul, [facility] [place] [id number] [address] Jun, [facility] [place] [id number], [place] [address] Jun, [facility] [place] [id number], [place] [address] Jun, IMMUNIZATIONS No Known Immunizations SOCIAL HISTORY Never Assessed REASON FOR VISIT Pain management (chronic)-Rakel VEGA, PT has vaginal discharge and concerns with a UTI PLAN OF CARE Activity Details Follow Up 4 Weeks Reason:anxiety VITAL SIGNS Height 61 in 2018-03-04 Weight 103.5 lbs 2018-03-04 Temperature 98.2 degrees Fahrenheit 2018-03-04 Heart Rate 62 bpm 2018-03-04 Respiratory Rate 20 2018-03-04 BMI 19.55 kg/m2 2018-03-04 Blood pressure systolic 122 mmHg 2018-03-04 Blood pressure diastolic 68 mmHg 2018-03-04 MEDICATIONS Medication Instructions Dosage Frequency Start Date End Date Duration Status Aciphex 20 mg Orally Once a day 1 tablet 24h 90 days Active Oxycodone HCl 5 MG Orally Once a day 1 tablet at bedtime 24h Feb, 28 days Active Ativan 0.5 MG Orally Once a day 1 tablet as needed 24h December, 28 days Active Aldactone 50 MG Orally Once a day 1 tablet 24h 180 days Active Pristiq 25 MG Orally Once a day 1 tablets 24h Feb, 30 day(s) Active Omeprazole 20 mg Orally Once a day 1 capsule 24h Jul, 30 day(s ) Not-Taking Folic Acid 1 MG Orally Once a day 1 tablet 24h 90 days Active Nadolol 20 MG Orally Once a day 1 tablet 24h 90 days Active RESULTS No Results PROCEDURES Procedure Date Ordered Result Body Site 09 PANEL (PROFILE 1) March 04, 2018 URINALYSIS, AUTO, W/O SCOPE March 04, 2018 INSTRUCTIONS MEDICATIONS ADMINISTERED No Known Medications MEDICAL [...]
[2018-08-05 03:15] LABS: BASOPHILS % (AUTO) 0 % (0-10); EOSINOPHILS # (AUTO) 0.1 10^3/uL (0.0-0.3); EOSINOPHILS % (AUTO) 1 % (0-10); HEMATOCRIT 25 % (35-52); HEMOGLOBIN 8.3 G/DL (11.5-16.0); LYMPHOCYTES # (AUTO) 0.6 X 10^3 (1.0-4.0); LYMPHOCYTES % (AUTO) 9 % (12-44); MEAN CORPUSCULAR HEMOGLOBIN 28 PG (25-34); MEAN CORPUSCULAR HGB CONC 34 G/DL (32-36); MEAN CORPUSCULAR VOLUME 85 FL (80-99); MEAN PLATELET VOLUME 9.6 FL (7.4-10.4); MONOCYTES # (AUTO) 0.1 X 10^3 (0.0-1.0); MONOCYTES % (AUTO) 1 % (0-12); NEUTROPHILS # (AUTO) 6.6 X 10^3 (1.8-7.8); NEUTROPHILS % (AUTO) 89 % (42-75); PLATELET COUNT 102 10^3/uL (130-400); RED BLOOD COUNT 2.92 10^6/uL (4.35-5.85); RED CELL DISTRIBUTION WIDTH 14.9 % (10.0-14.5); WHITE BLOOD COUNT 7.4 10^3/uL (4.3-11.0)
[2018-08-05] MEDS ORDERED: fentaNYL INJECTION 100 MCG/2 ML AMP IVP ONE ×2 (03:15→05:30)
[2018-08-05] MEDS ORDERED: ONDANSETRON 4 MG/2 ML (SDV) Z0FRAN IVP ONE (03:15)
[2018-08-05] MEDS ORDERED: PANTOPRAZOLE 40 MG (PROTONIX) VIAL IV ONE (03:15)
--- OUTSIDE RECORDS SUMMARY | 2018-08-05 03:15 | XMS REPORT ---
Author Author HEATHER FINE Organization [facility] Address [address] [place] [address] Care Team Providers Care Rehabilitation Liaison Name Role Phone HEATHER FINE Unavailable PROBLEMS Type Condition ICD9-CM Code ODJ46-LL Code Onset Dates Condition Status SNOMED Code Problem Unspecified cirrhosis of liver K74.60 Active 181322376 Problem Lymphocytosis D72.820 Active 81865994 Problem Secondary esophageal varices with bleeding I85.11 Active 77710497 Problem Anxiety F41.9 Active 10992436 Problem Asthma J45.909 Active 234478984 Problem Chronic back pain M54.9 Active 869024850 Problem Dysthymia F34.1 Active 63329948 Problem Thrombocytosis D47.3 Active 3379658 Problem Splenomegaly R16.1 Active 39097058 Problem 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 Active 031941839 Problem History of hepatitis C Z86.19 Active [id number] ALLERGIES No Information ENCOUNTERS Encounter Location Date Diagnosis [place] [id number] [place] [address] 75490- 7783 Mar, Anxiety F41.9 [place] [id number] [place] [address] 79926- 3637 Mar, [facility] [id number] [place] [address] 40775- 8341 Mar, Right arm pain M79.601 [facility] [address] [place] [id number] [place] [address] 65425- 2063 Mar, Anxiety F41.9 [facility] [address] [place] [address] 79019- 0430 Feb, [facility] [address] [place] [address] 68976- 2777 Feb, Chronic back pain M54.9 ; Anxiety F41.9 and Dysuria R30.0 [facility] [address] [place] [id number] [place] [address] 14268- 9747 Feb, [facility] [address] [place] [id number] [place] [address] 04461- 9888 Feb, Anxiety F41.9 [facility] [address] [place] [id number] [place] [address] 44670- 6344 Jan, [facility] [address] [place] [id number] [place] [address] 08651- 9074 Jan, Chronic back pain M54.9 and Anxiety F41.9 [facility] [address] [place] [id number] [place] [address] 27107- 4211 December, Chronic back pain M54.9 and Anxiety F41.9 [facility] [address] [place] [id number] [place] [address] 85037- 4066 Nov, Chronic back pain M54.9 and Anxiety F41.9 [facility] [address] [place] [id number] [place] [address] 21627- 0498 Oct, Chronic back pain M54.9 and Anxiety F41.9 [facility] [address] [place] [id number] [place] [address] 06556- 6390 Oct, [facility] [address] [place] [id number] [place] [address] 16074- 7617 Sep, Chronic back pain M54.9 ; Anxiety F41.9 ; Pain of left leg M79.605 and Pain in right leg M79.604 [facility] [address] [place] [id number] [place] [address] 21758- 3087 Sep, Anxiety F41.9 and Chronic back pain M54.9 [facility] [address] [place] [id number] [place] [address] 90204- 9767 Sep, [facility] [address] [place] [id number] [place] [address] 08223- 2967 Aug, Anxiety F41.9 [facility] [address] [place] [id number] [place] [address] 09588- 2610 Jul, Anxiety F41.9 [facility] [address] [place] [id number] [place] [address] 04369- 1561 Jul, [facility] [address] [place] [id number] [place] [address] 26623- 7152 Jul, Viral syndrome B34.9 ; Chronic back pain M54.9 and Dysuria R30.0 [facility] [address] [place] [id number] [place] [address] 05619- 4133 Jun, [facility] [address] 69966- 8274 Jun, Anxiety F41.9 [facility] [address] [place] [id number] [place] [address] 87705 -3412 Jun, Dysuria R30.0 and Acute cystitis without hematuria N30.00 [facility] [address] [place] [id number] [place] [address] 87290- 7540 Jun, [facility] [address] 68312- 4657 May, Anxiety F41.9 [facility] [address] [place] [id number] [place] [address] 97545- 5892 May, Anxiety F41.9 [facility] [address] [place] [id number] [place] [address] 30194- 9245 Apr, [facility] [address] [place] [id number] [place] [address] 26462- 4416 Apr, Chronic back pain M54.9 and Anxiety F41.9 [facility] [address] [place] [id number] [place] [address] 17092- 2758 Mar, [facility] [address] [place] [id number] [place] [address] 42859- 7006 Mar, [facility] [address] [address]- 8967 Mar, 2017 Well woman exam Z01.419 ; Cervical cancer screening Z12.4 ; Breast cancer screening Z12.31 and Colon cancer screening Z12.11 [facility] [address] [address]- 7225 Mar, Chronic back pain M54.9 and Anxiety F41.9 [facility] [address] [place] [id number] [place] [address] 02364- 6441 Mar, [facility] [address] [place] [id number] [place] [address] 81771- 9205 Feb, Chronic back pain M54.9 and Anxiety F41.9 [facility] [address] [place] [id number] [place] [address] 04038- 9447 Feb, [facility] [address] [place] [id number] [place] [address] 13758- 3416 Feb, [facility] [address] [place] [id number] [place] [address] 01074- 0853 Jan, Chronic back pain M54.9 and Anxiety F41.9 [facility] [address] [place] [id number] [address]- 5246 Jan, [facility] [address] [place] [id number] [place] [address] 11398- 7278 Jan, [facility] [address] [place] [id number] [place] [address] 22052- 2967 December, Chronic back pain M54.9 and Anxiety F41.9 [facility] [address] [place] [id number] [place] [address] 06938- 5359 Nov, Chronic back pain M54.9 and Anxiety F41.9 [facility] [address], [place] [address]- 4307 Oct, Chronic back pain M54.9 and Anxiety F41.9 [facility] [address] [place] [id number] [place] [address] 53936- 4621 Oct, Chronic back pain M54.9 [facility] [address] 60287- 5562 Sep, Anxiety F41.9 and Chronic back pain M54.9 [facility] [address] [place] [id number] [place] [address] 04126- 4666 Aug, Anxiety F41.9 and Chronic back pain M54.9 [facility] [address] [place] [id number] [place] [address] 46371- 9413 Aug, [facility] [address] 48973- 0059 Jul, Chronic back pain M54.9 and Anxiety F41.9 [facility] [address] [place] [id number] [place] [address] 42863- 5736 Jul, Anxiety F41.9 and Chronic back pain M54.9 [facility] [place] [address] [facility] [address] Jul, [facility] [address] [place] [id number] [place] [address] 92659- 4885 Jul, Anxiety F41.9 [facility] [address] [place] [id number] [place] [address] 51305- 2095 Jul, Anxiety F41.9 and Dysuria R30.0 [facility] [address] [place] [id number] [place] [address] 56359- 0807 Jul, Chronic back pain M54.9 and Anxiety F41.9 [facility] [address] [place] [id number] [place] [address] 08597- 3577 Jun, Chronic back pain M54.9 [facility] [address] [place] [id number] [place] [address] 00776- 0018 Jun, Chronic back pain M54.9 [facility] [address] [place] [id number] [place] [address] 24643- 4522 May, Anxiety F41.9 [facility] [address] [id number] [address]- 7932 May, Chronic back pain M54.9 [facility] [id number] [place] [address] 85518- 8766 Apr, [facility] [address] [id number] [place] [address] 57651- 7551 Apr, [facility] [address] [id number] [place] [address] 44600- 0737 Apr, [facility] [address] [facility] [id number] [place] [address] 36986- 6458 Apr, Chronic back pain M54.9 [facility] [address] [facility] [id number] [place] [address] 57940- 0876 Mar, Chronic back pain M54.9 [facility] [address] [facility] [id number] [place] [address] 82262- 5352 Feb, Grief F43.20 [facility] [address] [facility] [id number] [place] [address] 22241- 5908 Feb, Chronic back pain M54.9 and Anxiety F41.9 [facility] [address] [facility] [id number] [place] [address] 55145- 3127 Feb, Chronic back pain M54.9 [facility] [address] [facility] [id number] [place] [address] 41704- 1879 Jan, Chronic back pain M54.9 [facility] [address] [facility] [id number], [place] [address]- 1286 December, [facility] [address] [facility] [id number] [place] [address] 62237- 5492 December, Grief F43.20 [facility] [address] [facility] [id number], [place] [address]- 0830 Nov, [facility] [address] [place] [id number] [place] [address] 14162- 9906 28 Oct, 2015 Cervicalgia M54.2 ; Secondary esophageal varices with bleeding I85.11 and Mouth pain K13.79 [facility] [address] [place] [id number] [place] [address] 90112- 9541 22 Oct, 2015 [facility] [address] [place] [id number] [place] [address] 21252- 7029 14 Oct, 2015 [facility] [address] [place] [id number] [place] [address] 23645- 5380 Sep, [facility] [address] [place] [id number] [place] [address] 85990- 4680 Sep, Acute maxillary sinusitis, recurrence not specified J01.00 [facility] [address] [place] [id number] [place] [address] 97056- 7737 Aug, [facility] [address] [place] [id number] [place] [address] 07390- 7183 Aug, [facility] [address] [place] [id number] [place] [address] 26067- 5590 Aug, Dysuria R30.0 and Chronic back pain M54.9 [facility] [address] [place] [id number] [place] [address] 70069- 2762 Jul, [facility] [address] [place] [id number] [place] [address] 09269- 3668 Jul, [facility] [address] [place] [id number] [place] [address] 25873- 8110 Jul, [facility] [address] [place] [id number] [place] [address] 48963- 8553 Jul, Chronic back pain M54.9 [facility] [address] [place] [id number] [place] [address] 68078- 2631 Jul, Dysthymia F34.1 and Chronic back pain M54.9 [facility] [address] [place] [id number] [place] [address] 71017- 3261 Jun, [facility] [address], [place] [address]- 8086 Jun, [facility] [address] [place] [id number] [place] [address] 62623- 0456 May, [facility] [address] [place] [id number] [place] [address] 11939- 7268 May, [facility] [address] [place] [id number] [place] [address] 49114- 3568 May, [facility] [address] [place] [id number] [place] [address] 72668- 3159 May, Encounter for immunization Z23 [facility] [address] [place] [id number] [place] [address] 56024- 5415 Apr, [facility] [address] [place] [id number] [place] [address] 96754- 9443 Apr, [facility] [address] [place] [id number] [place] [address] 00302- 9684 Mar, [facility] [address] [place] [id number] [place] [address] 77279- 0218 Mar, Back pain 724.5 [facility] [address] [place] [id number] [place] [address] 74389- 6492 Mar, Cough 786.2 and Back pain 724.5 [facility] [address] [place] [id number] [place] [address] 22790- 4091 Mar, [facility] [address] [place] [address] 07780- 7911 Mar, [facility] [address] [place] [id number] [place] [address] 13564- 1463 December, [facility] [address] [place] [address] 45332- 4505 December, [facility] [address] [place] [id number] [place] [address] 72621- 8939 14 Nov, 2014 [facility] [place] [facility] [address] [id number] [place] [address]- 4460 Nov, [facility] [place] [facility] [address] [id number] [place] [address]- 3095 Oct, [facility] [place] [facility] [address] [facility] [id number] [place] [address]- 4664 Oct, [facility] [place] [facility] [address] [id number] [place] [address]- 1449 Sep, [facility] [place] [facility] [address] [id number] [place] [address]- 8922 Sep, [facility] [place] [facility] [address] [id number] [place] [address]- 1937 Sep, [facility] [place] [facility] [address] [facility] [id number] [place] [address]- 1250 Sep, [facility] [place] [facility] [address] [id number] [place] [address]- 9413 Sep, [facility] [place] [facility] [address] [facility] [id number] [place] [address]- 5273 Sep, [facility] [place] [facility] [address] [facility] [id number] [place] [address]- 2110 Sep, [facility] [place] [facility] [address] [facility] [id number] [place] [address]- 0315 Sep, [facility] [place] [facility] [address] [id number] [place] [address]- 0452 Aug, [facility] [place] [facility] [address] [id number] [place] [address]- 5777 Aug, [facility] [place] [facility] [address] [facility] [id number] [place] [address]- 5474 Aug, [facility] [place] [facility] [address] [facility] [id number] [place] [address]- 1558 Aug, [facility] [place] [facility] [address] [id number] [place] [address]- 7599 13 Aug, 2014 [facility] [place] [facility] [address] [id number] [place] [address]- 0127 Aug, [facility] [place] [facility] [address] [id number] [place] [address]- 1708 Aug, [facility] [place] [facility] [address] [id number] [place] [address]- 4688 Jul, [facility] [place] [facility] [address] [id number] [place] [address]- 8038 Jul, [facility] [place] [facility] [address] [id number] [place] [address]- 3344 Jul, [facility] [place] [facility] [address] [id number] [place] [address]- 0477 Jul, [facility] [place] [facility] [address] [id number] [place] [address]- 5397 Jul, [facility] [place] [facility] [address] [id number] [place] [address]- 2064 Jul, [facility] [place] [facility] [address] [id number] [place] [address]- 4212 Jul, [facility] [place] [facility] [address] [id number] [place] [address]- 9052 Jul, [facility] [place] [facility] [address] [id number], [place] [address]- 0522 Jun, [facility] [place] [facility] [address] [id number] [place] [address]- 7143 Jun, [facility] [place] [facility] [address] [id number] [place] [address]- 7012 Jun, [facility] [place] [facility] [address] [id number] 8909 Jun, [facility] [place] [facility] [address] [id number], [place] [address]- 7731 Jun, [facility] [place] [facility] [address] [id number] [place] [address]- 1071 Jun, [facility] [place] [facility] [address] [id number] [place] [address]- 8790 Jun, [facility] [place] [facility] [address] [id number] [place] [address]- 8278 28 May, 2014 [facility] [place] [facility] [address] [id number] [place] [address]- 5238 28 May, 2014 [facility] [place] [facility] [address] [id number] [place] [address]- 4423 28 May, 2014 [facility] [place] [facility] [address] [id number] [place] [address]- 6853 28 May, 2014 [facility] [place] [facility] [address] [id number] [place] [address]- 4574 2014 [facility] [place] [facility] [address] [id number] [place] [address]- 8208 2014 [facility] [place] [facility] [address] [id number] [place] [address]- 7907 2014 [facility] [place] [facility] [address] [id number] [place] [address]- 1469 2014 [facility] [place] [facility] [address] [id number], [place] [address]- 2608 13 May, 2014 [facility] [place] [facility] [address] [id number], [place] [address]- 0919 13 May, 2014 [facility] [place] [facility] [address] [id number], [place] [address]- 9119 10 May, 2014 [facility] [place] [facility] [address] [id number], [place] [address]- 6751 10 May, 2014 [facility] [place] [facility] [address] [facility] [id number], [place] [address]- 5021 08 May, 2014 [facility] [place] [facility] [address] [id number] [place] [address]- 5439 08 May, 2014 [facility] [place] [facility] [address] [id number] [place] [address]- 0026 Apr, 2013 [facility] [place] [facility] [address] [id number] [place] [address] 2546 Apr, 2013 [facility] [place] [facility] [address] [id number] [place] [address] 2546 Apr, 2013 [facility] [place] [facility] [address] [id number] [place] [address] 2541 Apr, 2013 [facility] [place] [facility] [address] [id number] [place] [address]- 6443 Apr, 2013 [facility] [place] [facility] [address] [id number] [place] [address]- 3111 Apr, [facility] [place] [facility] [address] [id number] [place] [address]- 9411 Apr, [facility] [place] [facility] [address] [id number] [place] [address]- 0463 Mar, [facility] [place] [facility] [address] [id number] [place] [address]- 3419 Mar, [facility] [place] [facility] [address] [id number] [place] [address]- 4109 Mar, [facility] [place] [facility] [address] [id number] [place] [address]- 7505 Mar, [facility] [place] [facility] [address] [id number] [place] [address]- 0294 Mar, [facility] [place] [facility] [address] [id number] [place] [address]- 0754 Mar, [facility] [place] [facility] [address] [id number] [place] [address]- 5115 Feb, [facility] [place] [facility] [address] [id number] [place] [address]- 5884 Feb, [facility] [place] [facility] [address] [id number] [place] [address]- 8251 Feb, [facility] [place] [facility] [address] [id number] [place] [address]- 1212 Feb, [facility] [place] [facility] [address] [id number] [place] [address]- 3311 Feb, [facility] [place] [facility] [address] [id number] [place] [address]- 8295 Feb, [facility] [place] [facility] [address] [id number] [place] [address]- 3738 Feb, [facility] [place] [facility] [address] [id number] [place] [address]- 5189 Feb, [facility] [place] [facility] [address] [id number] [place] [address]- 1734 Jan, [facility] [place] [facility] [address] [id number] [place] [address]- 4891 Jan, [facility] [place] [facility] [address] [id number] [place] [address] December, [facility] [place] [facility] [address] [id number] [place] [address] December, [facility] [place] [facility] [address] [id number] [place] [address] December, [facility] [place] [facility] [address] [id number] [place] [address] December, [facility] [place] [facility] [address] [id number] [place] [address] December, [facility] [place] [facility] [address] [id number] [place] [address] December, [facility] [place] [facility] [address] [id number] [place] [address] December, [facility] [place] [facility] [address] [id number] [place] [address] December, [facility] [place] [facility] [address] [id number] [place] [address] December, [facility] [place] [facility] [address] [id number] [place] [address] December, [facility] [place] [facility] [address] [id number] [place] [address] December, [facility] [place] [facility] [address] [id number] [place] [address] December, [facility] [place] [facility] [address] [id number] [place] [address] Nov, [facility] [place] [facility] [address] [id number] [place] [address] Nov, [facility] [place] [facility] [address] [id number] [place] [address] Nov, [facility] [place] [facility] [address] [id number] [place] [address] Nov, [facility] [place] [facility] [address] [id number] [place] [address] Nov, [facility] [place] [facility] [address] [id number] [place] [address] Nov, [facility] [place] [facility] [address] [id number] [place] [address] Nov, [facility] [place] [facility] [address] [id number] [place] [address] 2018 Nov, [facility] [place] [facility] [address] [id number] [place] [address] Nov, [facility] [place] [facility] [address] [id number] [place] [address] Nov, [facility] [place] [facility] [address] [id number] [place] [address] Nov, [facility] [place] [facility] [address] [id number] [place] [address] Nov, [facility] [place] [facility] [address] [id number] [place] [address] Nov, [facility] [place] [facility] [address] [id number] [place] [address] Oct, [facility] [place] [facility] [address] [id number] [place] [address] Oct, [facility] [place] [facility] [address] [id number] [place] [address] Sep, [facility] [place] [facility] [address] [id number] [place] [address] Sep, [facility] [place] [facility] [address] [id number] [place] [address] Sep, [facility] [place] [facility] [address] [id number] [place] [address] Sep, [facility] [place] [facility] [address] [id number] [place] [address] Sep, [facility] [place] [facility] [address] [id number] [place] [address] Sep, [facility] [place] [facility] [address] [id number] [place] [address] Sep, [facility] [place] [facility] [address] [id number] [place] [address] 18 Sep, 2013 [facility] [place] [facility] [address] [id number] [place] [address] Sep, [facility] [place] [facility] [address] [id number] [place] [address] Sep, [facility] [place] [facility] [address] [facility] [id number] [place] [address] 05 Sep, 2013 [facility] [place] [facility] [address] [id number] [place] [address] Sep, [facility] [address] [id number] [place] [address] Aug, [facility] [address] [id number] [place] [address] Aug, [facility] [address] [id number] [place] [address] Aug, [facility] [address] [id number] [place] [address] Aug, [facility] [address] [id number] [place] [address] Aug, [facility] [address] [id number] [place] [address] Aug, [facility] [address] [id number] [place] [address] Aug, [facility] [address] [id number] [place] [address] 1435 Aug, [facility] [address] [id number] [place] [address] Aug, [facility] [address] [id number] [place] [address] 37[address] Aug, [facility] [address] [id number] [place] [address] 30[address] Aug, [facility] [address] [id number] [place] [address] 2792 Aug, [facility] [place] [facility] [address] [id number] [place] [address] 8[address] Aug, [facility] [place] [facility] [address] [id number] [place] [address] Aug, [facility] [address] [id number] [place] [address] Aug, [facility] [address] [id number] [place] [address] 3872 Aug, [facility] [place] [facility] [address] [id number] [place] [address] 4666 Aug, [facility] [place] [facility] [address] [id number] [place] [address] 3534 Aug, [facility] [place] [facility] [address] [id number] [place] [address] 2901 Aug, [facility] [place] [facility] [address] [id number] [place] [address] 7225 Aug, [facility] [place] [facility] [address] [id number] [place] [address] 6710 Aug, [facility] [place] [facility] [address] [id number] [place] [address] 8973 Aug, [facility] [place] [facility] [address] [id number] [place] [address] 1363 Aug, [facility] [place] [facility] [address] [id number] [place] [address] 3[address] Jul, [facility] [place] [facility] [address] [id number], [place] [address] Jul, [facility] [place] [facility] [address] [id number], [place] [address] 5[address] Jul, [facility] [place] [facility] [address] [id number], [place] [address]874 Jul, [facility] [place] [facility] [address] [id number] [place] [address]- 0838 Jul, [facility] [place] [facility] [address] [id number] [place] [address] Jul, [facility] [place] [facility] [address] [id number], [place] [address]- 6632 Jun, [facility] [place] [facility] [address] [id number], [place] [address]- 7[address] Jun, [facility] [place] [facility] [address] [id number] [place] [address]- 8604 Jun, [facility] [place] [facility] [address] [facility] [id number], [place] [address]- 7[address] Jun, [facility] [place] [facility] [address] [facility] [id number] [place] [address]- 3053 Jun, [facility] [place] [facility] [address] [id number], [place] [address] 2620 Jun, [facility] [place] [facility] [address] [facility] [id number] [place] [address], [place] [address] 8264 Jun, [facility] [place] [facility] [address] [facility] [id number], [place] [address]- 8487 Jun, [facility] [place] [facility] [address] [facility] [id number], [place] [address]- 7240 Jun, [facility] [place] [facility] [address] [facility] [id number], [place] [address]- 7408 Jun, [facility] [place] [facility] [address] [id number], [place] [address] May, [facility] [place] [facility] [address] [facility] [id number], [place] [address]- 0[address] May, [facility] [place] [facility] [address] [facility] [id number], [place] [address]- 4467 May, [facility] [place] [facility] [address] [facility] [id number], [place] [address]- 1483 May, [facility] [place] [facility] [address] [facility] [id number], [place] [address]- 7374 May, [facility] [place] [facility] [address] [facility] [id number], [place] [address]- 4382 May, [facility] [place] [facility] [address] [facility] [id number], [place] [address]- 7845 May, [facility] [place] [facility] [address] [id number] [place] [address]- 2834 May, 2012 [facility] [place] [facility] [address] [id number] [place] [address] May, [facility] [place] [facility] [address] [id number] [place] [address] May, [facility] [place] [facility] [address] [id number] [place] [address]- 3830 17 May, 2013 [facility] [place] [facility] [address] [id number] [place] [address]- 0857 16 May, 2013 [facility] [place] [facility] [address] [id number] [place] [address]- 8135 16 May, 2013 [facility] [place] [facility] [address] [id number] [place] [address]- 2170 16 May, 2013 [facility] [place] [facility] [address] [id number] [place] [address]- 4239 16 May, 2013 [facility] [place] [facility] [address] [id number] [place] [address]- 3511 24 Apr, 2013 [facility] [place] [facility] [address] [id number] [place] [address]- 5831 23 Apr, 2013 [facility] [place] [facility] [address] [id number] [place] [address]- 7368 Apr, [facility] [place] [facility] [address] [id number] [place] [address]- 2293 Mar, [facility] [place] [facility] [address] [id number] [place] [address]- 3965 Mar, [facility] [place] [facility] [address] [id number] [place] [address] Mar, [facility] [place] [facility] [address] [id number] [place] [address]- 4708 Mar, [facility] [place] [facility] [address] [id number] [place] [address]- 9535 Mar, [facility] [place] [facility] [address] [id number] [place] [address]- 7952 Mar, [facility] [place] [facility] [address] [id number] [place] [address]- 5679 Feb, [facility] [place] [facility] [address] [id number] [place] [address]- 4038 Feb, [facility] [place] [facility] [address] [id number] [place] [address]- 1044 Feb, [facility] [place] [facility] [address] [id number] [place] [address]- 8521 Feb, [facility] [place] [facility] [address] [id number] [place] [address]- 3012 Feb, [facility] [place] [facility] [address] [id number] [place] [address]- 9554 Feb, [facility] [place] [facility] [address] [id number] [place] [address]- 8770 Feb, [facility] [place] [facility] [address] [id number] [place] [address]- 3811 Feb, [facility] [place] [facility] [address] [id number] [place] [address]- 5000 Feb, [facility] [place] [facility] [address] [id number] [place] [address]- 8126 Feb, [facility] [place] [facility] [address] [id number] [place] [address]- 4908 Jan, [facility] [place] [facility] [address] [id number] [place] [address]- 4124 Jan, [facility] [place] [facility] [address] [id number] [place] [address]- 7173 Jan, [facility] [place] [facility] [address] [id number] [place] [address]- 0312 Jan, [facility] [place] [facility] [address] [id number] [place] [address]- 1461 December, [facility] [address] [id number] [place] [address]- 6056 December, [facility] [address] [id number] [place] [address]- 1678 December, [facility] [address] [id number] [place] [address]- 0098 Nov, [facility] [address] [id number] [place] [address]- 9859 Nov, [facility] [address] [id number] [place] [address]- 9695 Nov, [facility] [address] [id number] [place] [address]- 3827 Nov, [facility] [address] [id number] [place] [address]- 2285 Nov, [facility] [address] [id number] [place] [address]- 2646 Nov, [facility] [address] [id number] [place] [address]- 4076 Oct, [facility] [address] [id number] [place] [address]- 7964 Oct, [facility] [address] [id number] [place] [address]- 3309 Oct, [facility] [address] [id number] [place] [address]- 0688 Sep, [facility] [place] [facility] [address] [id number] [place] [address]- 2996 Sep, [facility] [place] [facility] [address] [id number] [place] [address]- 0246 Sep, [facility] [place] [facility] [address] [id number] [place] [address]- 1420 Aug, [facility] [address] [id number] [place] [address]- 0954 Aug, [facility] [place] [facility] [address] [id number] [place] [address]- 5844 Aug, [facility] [place] [facility] [address] [id number] [place] [address]- 9455 Aug, [facility] [place] [facility] [address] [id number] [place] [address]- 2280 Jul, [facility] [place] [facility] [address] [id number] [place] [address]- 4509 Jul, [facility] [place] [facility] [address] [id number] [place] [address]- 4575 Jul, [facility] [place] [facility] [address] [id number] [place] [address]- 8689 Jul, [facility] [place] [facility] [address] [id number] [place] [address]- 6612 Jun, [facility] [place] [facility] [address] [id number] [place] [address]- 4586 Jun, [facility] [place] [facility] [address] [id number], [place] [address]- 4000 Jun, [facility] [place] [facility] [address] [id number], [place] [address]- 4056 Jun, [facility] [place] [facility] [address] [id number], [place] [address]- 4852 Jun, [facility] [place] [facility] [address] [id number] [place] [address]- 3246 Jun, [facility] [place] [facility] [address] [id number], [place] [address]- 6805 Jun, [facility] [place] [facility] [address] [id number], [place] [address]- 3363 Jun, [facility] [place] [facility] [address] [id number], [place] [address]- 4347 30 May, 2012 [facility] [place] [facility] [address] [id number] [place] [address]- 2403 30 May, 2012 [facility] [place] [facility] [address] [id number] [place] [address]- 8244 18 May, 2012 [facility] [place] [facility] [address] [facility] [id number] [place] [address]- 6502 18 May, 2012 [facility] [place] [facility] [address] [id number] [place] [address]- 3306 2012 [facility] [place] [facility] [address] [id number] [place] [address]- 6148 13 May, 2012 [facility] [place] [facility] [address] [id number] [place] [address]- 3931 11 May, 2012 [facility] [place] [facility] [address] [facility] [id number] [place] [address]- 7113 11 May, 2012 [facility] [place] [facility] [address] [facility] [id number] [place] [address]- 3937 10 May, 2012 [facility] [place] [facility] [address] [facility] [id number] [place] [address]- 5304 08 May, 2012 [facility] [place] [facility] [address] [facility] [id number] [place] [address]- 8852 24 Sep, 2011 [facility] [place] [facility] [address] [id number], [place] [address]- 3056 19 Sep, 2011 [facility] [place] [facility] [address] [id number], [place] [address]- 6034 18 Sep, 2011 [facility] [place] [facility] [address] [id number] [place] [address]- 1160 17 Sep, 2011 [facility] [place] [facility] [address] [facility] [id number] [place] [address]- 3162 16 Sep, 2011 [facility] [place] [facility] [address] [facility] [id number] [place] [address]- 1594 10 Sep, 2011 [facility] [place] [facility] [address] [id number] [place] [address]- 1128 Mar, [facility] [place] [facility] [address] [id number] [place] [address]- 7476 Mar, [facility] [place] [facility] [address] [id number] [place] [address]- 7016 Mar, [facility] [place] [facility] [address] [id number] [place] [address]- 6756 Mar, [facility] [place] [facility] [address] [id number] [place] [address]- 9945 Mar, [facility] [place] [facility] [address] [id number] [place] [address]- 4242 Mar, [facility] [place] [facility] [address] [id number] [place] [address]- 9776 Feb, [facility] [place] [facility] [address] [id number] [place] [address]- 2950 Feb, [facility] [place] [facility] [address] [id number] [place] [address]- 6544 Feb, [facility] [place] [facility] [address] [id number] [place] [address]- 4706 Feb, [facility] [place] [facility] [address] [id number] [place] [address]- 0516 Feb, [facility] [place] [facility] [address] [id number] [place] [address]- 4414 Feb, [facility] [place] [facility] [address] [id number] [place] [address]- 9155 Feb, [facility] [place] [facility] [address] [id number] [place] [address]- 6766 Feb, [facility] [place] [facility] [address] [id number] [place] [address]- 2546 Feb, [facility] [place] [facility] [address] [id number] [place] [address]- 7132 Jan, [facility] [place] [facility] [address] [id number] [place] [address]- 5813 Jan, [facility] [place] [facility] [address] [id number] [place] [address]- 5289 Jan, [facility] [place] [facility] [address] [id number] [place] [address]- 8103 Jan, [facility] [place] [facility] [address] [id number] [place] [address]- 7208 Jan, [facility] [place] [facility] [address] [id number] [place] [address]- 3846 Jan, [facility] [place] [facility] [address] [id number] [place] [address]- 3809 Jan, [facility] [place] [facility] [address] [id number] [place] [address]- 8743 Jan, [facility] [place] [facility] [address] [id number] [place] [address]- 7919 Jan, [facility] [place] [facility] [address] [id number] [place] [address]- 4797 December, [facility] [place] [facility] [address] [id number] [place] [address]- 9747 December, [facility] [place] [facility] [address] [id number] [place] [address]- 9627 December, [facility] [place] [facility] [address] [id number], [place] [address]- 3519 December, [facility] [place] [facility] [address] [id number] [place] [address]- 4556 December, [facility] [place] [facility] [address] [id number] [place] [address]- 2421 December, [facility] [place] [facility] [address] [id number] [place] [address]- 2524 December, [facility] [place] [facility] [address] [id number] [place] [address]- 4635 December, [facility] [address] [id number] [place] [address]- 1815 December, [facility] [place] [facility] [address] [id number] [place] [address]- 1846 December, [facility] [address] [id number] [place] [address]- 2021 Nov, [facility] [place] [facility] [address] [id number] [place] [address]- 6935 Nov, [facility] [address] [id number] [place] [address]- 2589 Nov, [facility] [place] [facility] [address] [id number] [place] [address]- 9255 Nov, [facility] [address] [id number] [place] [address]- 1059 16 Nov, 2011 [facility] [address] [id number] [place] [address]- 8911 Nov, [facility] [address] [id number] [place] [address]- 7960 Nov, [facility] [address] [id number] [place] [address]- 6761 Nov, [facility] [place] [facility] [address] [id number] [place] [address]- 5723 Nov, [facility] [place] [facility] [address] [id number] [place] [address]- 0688 Nov, [facility] [place] [facility] [address] [id number] [place] [address]- 5796 Oct, [facility] [place] [facility] [address] [id number] [place] [address]- 3873 Oct, [facility] [place] [facility] [address] [id number] [place] [address]100 Oct, [facility] [place] [facility] [address] [id number] [place] [address]- 0348 23 Oct, 2011 [facility] [place] [facility] [address] [id number] [place] [address]- 6836 21 Oct, 2011 [facility] [place] [facility] [address] [id number] [place] [address]- 6791 20 Oct, 2011 [facility] [place] [facility] [address] [id number] [place] [address]- 9346 19 Oct, 2011 [facility] [place] [facility] [address] [id number] [place] [address]- 1880 19 Oct, 2011 [facility] [place] [facility] [address] [id number] [place] [address]- 2252 16 Oct, 2011 [facility] [place] [facility] [address] [id number] [place] [address]- 4943 14 Oct, 2011 [facility] [place] [facility] [address] [id number] [place] [address]- 3624 14 Oct, 2011 [facility] [place] [facility] [address] [id number] [place] [address]- 4989 09 Oct, 2011 [facility] [place] [facility] [address] [id number] [place] [address]- 4503 08 Oct, 2011 [facility] [place] [facility] [address] [id number] [place] [address]- 0146 06 Oct, 2011 [facility] [place] [facility] [address] [id number] [place] [address]- 3256 02 Oct, 2011 [facility] [place] [facility] [address] [id number] [place] [address]- 3011 28 Sep, 2011 [facility] [place] [facility] [address] [id number] [place] [address]- 1066 24 Sep, 2011 [facility] [place] [facility] [address] [id number] [place] [address]- 5159 20 Sep, 2011 [facility] [place] [facility] [address] [id number] [place] [address]- 9728 17 Sep, [address] [facility] [address] [id number] [place] [address] 2546 16 Sep, 2011 [facility] [place] [facility] [address] [id number] [place] [address] 2546 14 Sep, 2011 [facility] [address] [id number] [place] [address] 2546 13 Sep, 2011 [facility] [place] [facility] [address] [id number] [place] [address] 2546 10 Sep, 2011 [facility] [address] [id number] [place] [address]- 9336 06 Sep, 2011 [facility] [address] [id number] [place] [address] 2546 03 Sep, 2011 [facility] [address] [id number] [place] [address] Sep, [facility] [address] [id number] [place] [address] 30 Aug, 2011 [facility] [address] [id number] [place] [address] Aug, [facility] [address] [id number] [place] [address] Aug, [facility] [address] [id number] [place] [address] Aug, [facility] [address] [id number] [place] [address] Aug, [facility] [place] [facility] [address] [id number] [place] [address] Aug, [facility] [place] [facility] [address] [id number] [place] [address] Aug, [facility] [place] [facility] [address] [id number] [place] [address] Aug, [facility] [place] [facility] [address] [id number] [place] [address] 16 Aug, 2011 [facility] [address] [id number] [place] [address] 13 Aug, 2011 [facility] [address] [id number] [place] [address] 11 Aug, 2011 [facility] [address] [id number] [place] [address] Aug, [facility] [address] [id number] [place] [address] Aug, [facility] [address] [id number] [place] [address] Aug, [facility] [address] [id number] [place] [address] Aug, [facility] [address] [id number] [place] [address] Aug, [facility] [address] [id number] [place] [address] Aug, [facility] [address] [id number] [place] [address] Jul, [facility] [address] [id number] [place] [address] Jul, [facility] [address] [id number] [place] [address] Jul, [facility] [place] [facility] [address] [id number] [place] [address] Jul, [facility] [place] [facility] [address] [id number] [place] [address] Jul, [facility] [place] [facility] [address] [id number] [place] [address] Jul, [facility] [address] [id number], [place] [address] Jul, [facility] [address] [id number] [address] Jul, [facility] [address] [facility] [id number], [place] [address] Jul, [facility] [address] [id number], [place] [address] Jul, [facility] [address] [id number], [place] [address] Jul, [facility] [address] [id number] [address] [address] Jun, [facility] [id number], [place] [address] Jun, [facility] [address] [id number] [address] Jun, IMMUNIZATIONS No Known Immunizations SOCIAL HISTORY Never Assessed REASON FOR VISIT Controlled Med Refill 03/18/18 PLAN OF CARE VITAL SIGNS MEDICATIONS Medication Instructions Dosage Frequency Start Date End Date Duration Status Oxycodone HCl 5 MG Orally Once a day 1 tablet at bedtime 24h Mar, 28 days Active Ativan 0.5 MG Orally [...]
--- OUTSIDE RECORDS SUMMARY | 2018-08-05 03:16 | XMS REPORT ---
Author Author HEATHER FINE Organization [facility] Address [address] [place] [address] Care Team Providers Care Transmission And Protection Engineer Name Role Phone HEATHER FINE Unavailable PROBLEMS Type Condition ICD9-CM Code DVA66-YB Code Onset Dates Condition Status SNOMED Code Problem Unspecified cirrhosis of liver K74.60 Active 495657972 Problem Lymphocytosis D72.820 Active 81125936 Problem Secondary esophageal varices with bleeding I85.11 Active 88841737 Problem Anxiety F41.9 Active 35347512 Problem Asthma J45.909 Active 409756555 Problem Chronic back pain M54.9 Active 048813051 Problem Dysthymia F34.1 Active 64329431 Problem Thrombocytosis D47.3 Active 5894272 Problem Splenomegaly R16.1 Active 59500231 Problem 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 Active 276820354 Problem History of hepatitis C Z86.19 Active [id number] ALLERGIES No Information ENCOUNTERS Encounter Location Date Diagnosis [place] [id number] [place] [address] 34478- 2161 Mar, Anxiety F41.9 [place] [id number] [place] [address] 30431- 4219 Mar, [facility] [id number] [place] [address] 77592- 3047 Mar, Right arm pain M79.601 [facility] [address] [place] [id number] [place] [address] 15831- 7691 Mar, An[address]41.[address] [facility] [id number] [place] [address] 60926- 3967 Feb, [facility] [id number] [place] [address] 04213- 7129 Feb, Chronic back pain M54.9 ; Anxiety F41.[address] [facility] [address] [place] [id number] [place] [address] 68487- 8755 Feb, [facility] [address] [place] [id number] [place] [address] 51127- 5586 Feb, Anxiety F41.9 [facility] [address] [place] [address] [id number] [place] [address] 55703- 7042 Jan, [facility] [address] [place] [id number] [place] [address] 62109- 6341 Jan, Chronic back pain M54.[address] [facility] [address] [place] [id number] [place] [address] 75175- 3561 December, Chronic back pain M54.[address] [facility] [address] [place] [id number] [place] [address] 92679- 7268 Nov, Chronic back pain M54.[address] [facility] [address] [place] [address] [id number] [place] [address] 11568- 8344 Oct, Chronic back pain M54.[address] [facility] [address] [place] [id number] [place] [address] 29758- 7038 Oct, [facility] [address] [place] [address] [id number] [place] [address] 26480- 2506 Sep, Chronic back pain M54.9 ; Anxiety F41.9 ; Pain of left leg M79.605 and Pain in right leg M79.604 [facility] [address] [place] [id number] [place] [address] 42522- 9416 Sep, Anxiety F41.9 and Chronic back pain M54.9 [facility] [address] [place] [address] [id number] [place] [address] 86386- 1789 Sep, [facility] [address] [place] [address] [id number] [place] [address] 26851- 3079 Aug, Anxiety F41.9 [facility] [address] [place] [address] [id number] [place] [address] 20507- 3454 Jul, [address].9 [facility] [address] [place] [id number] [place] [address] 38063- 2509 Jul, [facility] [address] [place] [id number] [place] [address] 51809- 3054 Jul, Viral syndrome B34.9 ; Chronic back pain M54.[address] [facility] [address] [place] [id number] [place] [address] 15520- 0557 Jun, [facility] [address] 04207- 2417 Jun, Anxiety F41.9 [facility] [address] [place] [address] [id number] [place] [address] 58575 -0965 Jun, Dysuria R30.0 and Acute cystitis without hematuria N30.00 [facility] [address] [place] [id number] [place] [address] 52516- 9042 Jun, [facility] [address] 79842- 3589 May, Anxiety [address]41.9 [facility] [address] [place] [id number] [place] [address] 94002- 7294 May, Anxiety F41.9 [facility] [address] [place] [id number] [place] [address] 27798- 8650 Apr, [facility] [address] [place] [id number] [place] [address] 14429- 8949 Apr, Chronic back pain M54.[address] [facility] [address] [place] [id number] [place] [address] 93635- 5457 Mar, [facility] [address] [id number] [place] [address] 44606- 0330 Mar, [facility] [address] [address]- 0650 Mar, 2017 Well woman exam Z01.419 ; Cervical cancer screening Z12.4 ; Breast cancer screening Z12.31 and Colon cancer screening Z12.11 [facility] [address] [address]- 2764 Mar, Chronic back pain M54.[address] [facility] [address] [place] [id number] [place] [address] 05748- 4602 Mar, [facility] [address] [place] [id number] [place] [address] 37514- 5814 Feb, Chronic back pain M54.[address] [facility] [address] [place] [id number] [place] [address] 10040- 5036 Feb, [facility] [address] [place] [id number] [place] [address] 83902- 8750 Feb, [facility] [address] [place] [id number] [place] [address] 56750- 7897 Jan, Chronic back pain M54.[address] [facility] [address] [place] [id number] [address]- 0183 Jan, [facility] [address] [place] [id number] [place] [address] 79048- 6638 Jan, [facility] [address] [place] [id number] [place] [address] 64217- 0624 December, Chronic back pain M54.[address] [facility] [address] [place] [id number] [place] [address] 81326- 2246 Nov, Chronic back pain M54.[address] [facility] [address] [address]- 3594 Oct, Chronic back pain M54.[address] [facility] [address] [place] [id number] [place] [address] 63874- 0524 Oct, Chronic back pain M54.9 [facility] [address] 06220- 9766 Sep, Anxiety F41.9 and Chronic back pain M54.9 [facility] [address] [place] [id number] [place] [address] 02859- 5306 Aug, Anxiety F41.9 and Chronic back pain M54.9 [facility] [address] [place] [id number] [place] [address] 90819- 8723 Aug, [facility] [address] 14761- 3919 Jul, Chronic back pain M54.[address] [facility] [address] [place] [id number] [place] [address] 36881- 3796 Jul, Anxiety F41.9 and Chronic back pain M54.9 [facility] [address] [place] [address] Jul, [facility] [address] [place] [id number] [place] [address] 72685- 3132 Jul, Anxiety F41.9 [facility] [address] [place] [id number] [place] [address] 39614- 9772 Jul, Anxiety F41.[address] [facility] [address] [place] [id number] [place] [address] 08743- 8496 Jul, Chronic back pain M54.[address] [facility] [address] [place] [id number] [place] [address] 38761- 8226 Jun, Chronic back pain M54.9 [facility] [address] [place] [id number] [place] [address] 77088- 9777 Jun, Chronic back pain M54.9 [facility] [address] [place] [id number] [place] [address] 92630- 0444 May, Anxiety F41.9 [facility] [address] [facility] [id number] [address]- 2650 May, Chronic back pain M54.9 [facility] [address] [facility] [id number] [address]- 1166 Apr, [facility] [address] [facility] [id number] [place] [address], [facility] [address] [facility] [id number] [place] [address] 84006- 8135 Apr, [facility] [address] [facility] [id number] [place] [address] 46310- 1636 Apr, Chronic back pain M54.9 [facility] [address] [facility] [id number] [address]- 2756 Mar, Chronic back pain M54.9 [facility] [address] [facility] [id number] [place] [address] 85400- 0816 Feb, Grief F43.20 [facility] [address] [facility] [id number] [place] [address] 07689- 3566 Feb, Chronic back pain M54.[address] [facility] [address] [facility] [id number] [address]- 1770 Feb, Chronic back pain M54.9 [facility] [address] [facility] [id number] [address]- 3860 Jan, Chronic back pain M54.9 [facility] [address] [facility] [id number][place] [address]- 1196 December, [facility] [address] [facility] [id number][place] [address]- 0556 December, Grief F43.20 [facility] [address] [facility] [id number] [address]- 8519 Nov, [facility] [address] [place] [id number] [place] [address] 01911- 7708 28 Oct, 2015 Cervicalgia M54.2 ; Secondary esophageal varices with bleeding I85.11 and Mouth pain K13.79 [facility] [address] [place] [id number] [place] [address] 31539- 0448 22 Oct, 2015 [facility] [address] [place] [id number] [place] [address] 28257- 5438 14 Oct, 2015 [facility] [address] [place] [id number] [place] [address] 62069- 7885 Sep, [facility] [address] [place] [id number] [place] [address] 87492- 9737 Sep, Acute maxillary sinusitis, recurrence not specified J01.00 [facility] [address] [place] [id number] [place] [address] 23442- 1609 Aug, [facility] [address] [id number] [place] [address] 88988- 8596 Aug, [facility] [address] [place] [id number] [place] [address] 43450- 2408 Aug, Dysuria R30.0 and Chronic back pain M54.9 [facility] [address] [place] [id number] [place] [address] 36271- 8967 Jul, [facility] [address] [place] [id number] [place] [address] 92658- 9366 Jul, [facility] [address] [place] [id number] [place] [address] 78836- 6569 Jul, [facility] [address] [place] [id number] [place] [address] 95265- 0157 Jul, Chronic back pain M54.9 [facility] [address] [place] [id number] [place] [address] 81162- 7218 Jul, Dysthymia F34.1 and Chronic back pain M54.9 [facility] [address] [place] [id number] [place] [address] 25288- 8914 Jun, [facility] [address] [address]- 2247 Jun, [facility] [address] [place] [address] 05704- 7496 May, [facility] [address] [place] [id number] [place] [address] 64928- 8112 May, [facility] [address] [id number] [place] [address] 44298- 1871 May, [facility] [address] [place] [id number] [place] [address] 88787- 3539 May, Encounter for immunization Z23 [facility] [address] [place] [id number] [place] [address] 55472- 7745 Apr, [facility] [address] [place] [id number] [place] [address] 46890- 9565 Apr, [facility] [address] [place] [address] 78728- 6748 Mar, [facility] [address] [place] [id number] [place] [address] 89556- 3327 Mar, Back pain 724.5 [facility] [address] [place] [address] 31350- 9284 Mar, Cough 786.2 and Back pain 724.5 [facility] [address] [place] [address] 76422- 8538 Mar, [facility] [address] [place] [address] 90531- 2033 Mar, [facility] [id number] [place] [address] 60836- 5845 December, [facility] [address]- 6525 December, [facility] [address] [place] [id number] [place] [address] 46238- 2052 14 Nov, 2014 [facility] [place] [facility] [address] [id number] [place] [address]- 6285 Nov, [facility] [place] [facility] [address] [id number] [place] [address]- 1798 Oct, [facility] [place] [facility] [address] [facility] [id number] [place] [address]- 6199 Oct, [facility] [place] [facility] [address] [id number] [place] [address]- 7191 Sep, 2014 [facility] [place] [facility] [address] [id number] [place] [address]- 6213 Sep, [facility] [place] [facility] [address] [id number] [place] [address]- 3166 Sep, [facility] [place] [facility] [address] [facility] [id number] [place] [address]- 1668 Sep, 2014 [facility] [place] [facility] [address] [facility] [id number] [place] [address]- 8686 Sep, [facility] [place] [facility] [address] [facility] [id number] [place] [address]- 8650 Sep, [facility] [place] [facility] [address] [facility] [id number] [place] [address]- 1122 Sep, [facility] [place] [facility] [address] [facility] [id number] [place] [address]- 0378 Sep, [facility] [place] [facility] [address] [facility] [id number] [place] [address]- 3911 Aug, [facility] [place] [facility] [address] [id number] [place] [address]- 8384 Aug, [facility] [place] [facility] [address] [facility] [id number] [place] [address]- 7182 Aug, [facility] [place] [facility] [address] [facility] [id number] [place] [address]- 0339 Aug, [facility] [place] [facility] [address] [id number] [place] [address]- 9913 13 Aug, 2014 [facility] [place] [facility] [address] [id number] [place] [address]- 9734 Aug, [facility] [place] [facility] [address] [id number] [place] [address]- 7792 Aug, [facility] [place] [facility] [address] [id number] [place] [address]- 2607 Jul, [facility] [place] [facility] [address] [id number] [place] [address]- 4363 Jul, [facility] [place] [facility] [address] [id number] [place] [address]- 4393 Jul, [facility] [place] [facility] [address] [id number] [place] [address]- 1105 Jul, [facility] [place] [facility] [address] [id number] [place] [address]- 2491 Jul, [facility] [place] [facility] [address] [id number] [place] [address]- 2962 Jul, [facility] [place] [facility] [address] [id number] [place] [address]- 7696 Jul, [facility] [place] [facility] [address] [id number] [place] [address]- 5807 Jul, [facility] [place] [facility] [address] [id number] [place] [address]- 5265 Jun, [facility] [place] [facility] [address] [id number] [place] [address]- 8892 Jun, [facility] [place] [facility] [address] [id number] [place] [address]- 2814 Jun, [facility] [place] [facility] [address] [id number] [place] [address]- 0701 Jun, [facility] [place] [facility] [address] [id number] [address]- 7358 Jun, [facility] [place] [facility] [address] [id number] [place] [address]- 1462 Jun, [facility] [place] [facility] [address] [id number] [place] 6708 Jun, [facility] [place] [facility] [address] [id number] [place] [address]- 3063 28 May, 2014 [facility] [place] [facility] [address] [id number] [place] [address]- 2709 28 May, 2014 [facility] [place] [facility] [address] [id number] [place] [address]- 3746 28 May, 2014 [facility] [place] [facility] [address] [id number] [place] [address]- 0011 28 May, 2014 [facility] [place] [facility] [address] [id number] [place] [address]- 4215 2014 [facility] [place] [facility] [address] [id number] [place] [address] 5928 2014 [facility] [place] [facility] [address] [id number] [place] [address]- 5355 2014 [facility] [place] [facility] [address] [id number] [place] [address] 2014 [facility] [place] [facility] [address] [id number] [address] 13 May, 2014 [facility] [place] [facility] [address] [id number], [place] [address] 13 May, 2014 [facility] [place] [facility] [address] [id number] [place] [address] 10 May, 2014 [facility] [place] [facility] [address] [id number], [place] [address] 10 May, 2014 [facility] [place] [facility] [address] [id number] [place] [address] 08 May, 2014 [facility] [place] [facility] [address] [id number] [place] [address] May, [facility] [place] [facility] [address] [id number] [place] [address] Apr, [facility] [place] [facility] [address] [id number] [place] [address] Apr, 2013 [facility] [place] [facility] [address] [id number] [place] [address]- [address] Apr, 2013 [facility] [place] [facility] [address] [id number] [place] [address] Apr, 2013 [facility] [place] [facility] [address] [id number] [place] [address]- [address] Apr, [facility] [place] [facility] [address] [id number] [place] [address] Apr, [facility] [place] [facility] [address] [id number] [place] [address]- [address] Apr, [facility] [place] [facility] [address] [id number] [place] [address] Mar, [facility] [place] [facility] [address] [id number] [place] [address]- [address] Mar, [facility] [place] [facility] [address] [id number] [place] [address] Mar, [facility] [place] [facility] [address] [id number] [place] [address]- [address] Mar, [facility] [place] [facility] [address] [id number] [place] [address] Mar, [facility] [place] [facility] [address] [id number] [place] [address]- [address]95 Mar, [facility] [place] [facility] [address] [id number] [place] [address] Feb, [facility] [place] [facility] [address] [id number] [place] [address]- [address] Feb, [facility] [place] [facility] [address] [id number] [place] [address]- [address] Feb, [facility] [place] [facility] [address] [id number] [place] [address]- [address] Feb, [facility] [place] [facility] [address] [id number] [place] [address]- 267[address] Feb, [facility] [place] [facility] [address] [id number] [place] [address]- 1428 Feb, [facility] [place] [facility] [address] [id number] [place] [address]- [address] Feb, [facility] [place] [facility] [address] [id number] [place] [address] Feb, [facility] [place] [facility] [address] [id number] [place] [address]- [address] Jan, [facility] [place] [facility] [address] [id number] [place] [address] Jan, [facility] [place] [facility] [address] [id number] [place] [address]- 84[address] December, [facility] [place] [facility] [address] [id number] [place] [address]- [address] December, [facility] [place] [facility] [address] [id number] [place] [address]- [address] December, [facility] [place] [facility] [address] [id number] [place] [address]- [address] December, [facility] [place] [facility] [address] [id number] [place] [address]- 1083 December, [facility] [place] [facility] [address] [id number] [place] [address]- [address] December, [facility] [place] [facility] [address] [id number] [place] [address]- 0717 December, [facility] [place] [facility] [address] [id number] [place] [address]- [address] December, [facility] [place] [facility] [address] [id number] [place] [address]- [address] December, [facility] [place] [facility] [address] [id number] [place] [address]- 73[address] December, [facility] [place] [facility] [address] [id number] [place] [address]- 279[address] December, [facility] [place] [facility] [address] [id number] [place] [address]- 8[address] December, [facility] [place] [facility] [address] [id number] [place] [address]- [address] Nov, [facility] [place] [facility] [address] [id number] [place] [address]- [address]79 Nov, [facility] [place] [facility] [address] [id number] [place] [address]- 164[address] Nov, [facility] [place] [facility] [address] [id number] [place] [address]- [address]473 Nov, [facility] [place] [facility] [address] [id number] [place] [address]- [address] Nov, [facility] [place] [facility] [address] [id number] [place] [address]- 135[address] Nov, [facility] [place] [facility] [address] [id number] [place] [address]- [address] Nov, [facility] [place] [facility] [address] [id number] [place] [address]- [address] Nov, [facility] [place] [facility] [address] [id number] [place] [address]- [address] Nov, [facility] [place] [facility] [address] [id number] [place] [address]- 0810 Nov, [facility] [place] [facility] [address] [id number] [place] [address]- 164[address] Nov, [facility] [place] [facility] [address] [id number] [place] [address]- [address] Nov, [facility] [place] [facility] [address] [id number] [place] [address]- [address]21 Nov, [facility] [place] [facility] [address] [id number] [place] [address]- [address] Oct, [facility] [place] [facility] [address] [id number] [place] [address]- [address] Oct, [facility] [place] [facility] [address] [id number] [place] [address]- 270[address] Sep, [facility] [place] [facility] [address] [id number] [place] [address]- 9[address] Sep, [facility] [place] [facility] [address] [id number] [place] [address]- [address] Sep, [facility] [place] [facility] [address] [id number] [place] [address] Sep, [facility] [place] [facility] [address] [id number] [place] [address] 4[address] Sep, [facility] [place] [facility] [address] [id number] [place] [address] 7035 Sep, [facility] [place] [facility] [address] [id number] [place] [address] 7855 Sep, [facility] [place] [facility] [address] [id number] [place] [address]- 4594 18 Sep, 2013 [facility] [place] [facility] [address] [id number] [place] [address]- 9386 Sep, [facility] [place] [facility] [address] [id number] [place] [address]- 7909 Sep, [facility] [place] [facility] [address] [facility] [id number] [place] [address]- 3986 05 Sep, 2013 [facility] [place] [facility] [address] [id number] [place] [address]- 0262 05 Sep, 2013 [facility] [address] [id number] [place] [address]- 4526 Aug, [facility] [address] [id number] [place] [address] 9102 Aug, [facility] [address] [id number] [place] [address]- 2974 Aug, [facility] [address] [id number] [place] [address]- 9718 Aug, [facility] [address] [id number] [place] [address]- 1464 Aug, [facility] [address] [id number] [place] [address]- 8126 Aug, [facility] [address] [id number] [place] [address]- 0204 Aug, [facility] [address] [id number] [place] [address]- 9116 Aug, [facility] [address] [id number] [place] [address]- 6224 Aug, [facility] [address] [id number] [place] [address]- 6752 Aug, [facility] [address] [id number] [place] [address]- 5524 Aug, [facility] [address] [id number] [place] [address]- 2904 Aug, [facility] [place] [facility] [address] [id number] [place] [address]- 9979 Aug, [facility] [place] [facility] [address] [id number] [place] [address]- 3680 Aug, [facility] [place] [facility] [address] [id number] [place] [address]- 1729 Aug, [facility] [place] [facility] [address] [id number] [place] [address]- 3999 Aug, [facility] [place] [facility] [address] [id number] [place] [address]- 7984 Aug, [facility] [place] [facility] [address] [id number] [place] [address]- 2590 Aug, [facility] [place] [facility] [address] [id number] [place] [address]- 6649 Aug, [facility] [address] [id number] [place] [address]- 9254 Aug, [facility] [place] [facility] [address] [id number] [place] [address]- 1808 Aug, [facility] [address] [id number] [place] [address]- 0634 Aug, [facility] [address] [id number] [place] [address]- 3978 Aug, [facility] [place] [facility] [address] [id number] [place] [address]- 8934 Jul, [facility] [place] [facility] [address] [id number] [place] [address]- 1808 Jul, [facility] [place] [facility] [address] [id number] [place] [address]- 7089 Jul, [facility] [place] [facility] [address] [id number], [place] [address]- 5381 Jul, [facility] [place] [facility] [address] [id number] [place] [address]- 5938 Jul, [facility] [place] [facility] [address] [id number] [place] [address]- 8184 Jul, [facility] [place] [facility] [address] [id number] [place] [address]- 1940 Jun, [facility] [place] [facility] [address] [id number][place] [address] 8172 Jun, [facility] [place] [facility] [address] [id number] [place] [address]- 0061 Jun, [facility] [place] [facility] [address] [id number] [address]- 6211 Jun, [facility] [place] [facility] [address] [id number] [place] [address]- 1983 Jun, [facility] [place] [facility] [address] [id number] [address]- 2640 Jun, [facility] [place] [facility] [address] [id number] [place] [address]- 5341 Jun, [facility] [place] [facility] [address] [id number] [place] [address]- 3465 Jun, [facility] [place] [facility] [address] [id number][place] [address]- 4294 Jun, [facility] [place] [facility] [address] [id number] [place] [address]- 4991 Jun, [facility] [place] [facility] [address] [id number][place] [address]- 4386 May, [facility] [place] [facility] [address] [id number] [place] [address]- 5120 May, [facility] [place] [facility] [address] [id number] [address]- 1007 May, [facility] [place] [facility] [address] [id number][place] [address]- 0585 May, [facility] [place] [facility] [address] [id number], [place] [address]- 3067 May, [facility] [place] [facility] [address] [id number], [place] [address]- 7772 May, [facility] [place] [facility] [address] [id number] [place] [address]- 9278 May, [facility] [place] [facility] [address] [id number] [place] [address]- 0423 May, [facility] [place] [facility] [address] [id number] [place] [address]- 1241 May, [facility] [place] [facility] [address] [id number] [place] [address]- 9359 May, [facility] [place] [facility] [address] [id number] [place] [address]- 5052 17 May, 2012 [facility] [place] [facility] [address] [id number] [place] [address]- 3033 16 May, 2013 [facility] [place] [facility] [address] [id number] [place] [address]- 4969 May, [facility] [place] [facility] [address] [id number] [place] [address]- 9583 16 May, 2013 [facility] [place] [facility] [address] [id number] [place] [address]- 0811 May, [facility] [place] [facility] [address] [id number] [place] [address]- 1333 24 Apr, 2013 [facility] [place] [facility] [address] [id number] [place] [address]- 5158 23 Apr, 2013 [facility] [place] [facility] [address] [id number] [place] [address]- 5633 Apr, [facility] [place] [facility] [address] [id number] [place] [address]- 0479 Mar, [facility] [place] [facility] [address] [id number] [place] [address]- 9429 Mar, [facility] [place] [facility] [address] [id number] [place] [address]- 4313 Mar, [facility] [place] [facility] [address] [id number] [place] [address]- 2010 Mar, [facility] [place] [facility] [address] [id number] [place] [address]- 4162 Mar, [facility] [place] [facility] [address] [id number] [place] [address]- 2497 Mar, [facility] [place] [facility] [address] [id number] [place] [address]- 4121 Feb, [facility] [place] [facility] [address] [id number] [place] [address]- 8832 Feb, [facility] [place] [facility] [address] [id number] [place] [address]- 8041 Feb, [facility] [place] [facility] [address] [id number] [place] [address]- 5229 Feb, [facility] [place] [facility] [address] [id number] [place] [address]- 3246 Feb, [facility] [place] [facility] [address] [id number] [place] [address]- 6199 Feb, [facility] [place] [facility] [address] [id number] [place] [address]- 5440 Feb, [facility] [place] [facility] [address] [id number] [place] [address]- 0027 Feb, [facility] [place] [facility] [address] [id number] [place] [address]- 5951 Feb, [facility] [place] [facility] [address] [id number] [place] [address]- 7115 Feb, [facility] [place] [facility] [address] [id number] [place] [address]- 4434 Jan, [facility] [place] [facility] [address] [id number] [place] [address]- 9773 Jan, [facility] [place] [facility] [address] [id number] [place] [address]- 4026 Jan, [facility] [place] [facility] [address] [id number] [place] [address]- 6481 Jan, [facility] [place] [facility] [address] [id number] [place] [address]- 2926 December, [facility] [address] [id number] [place] [address]- 0121 December, [facility] [address] [id number] [place] [address]- 5772 December, [facility] [address] [id number] [place] [address]- 9641 Nov, [facility] [place] [facility] [address] [id number] [place] [address]- 7409 Nov, [facility] [address] [id number] [place] [address]- 9325 Nov, [facility] [address] [id number] [place] [address]- 4821 Nov, [facility] [address] [id number] [place] [address]- 8840 Nov, [facility] [address] [id number] [place] [address]- 7852 Nov, [facility] [address] [id number] [place] [address]- 0574 Oct, [facility] [place] [facility] [address] [id number] [place] [address]- 5508 Oct, [facility] [place] [facility] [address] [id number] [place] [address]- 6486 Oct, [facility] [place] [facility] [address] [id number] [place] [address]- 7920 Sep, [facility] [place] [facility] [address] [id number] [place] [address]- 5308 Sep, [facility] [place] [facility] [address] [id number] [place] [address]- 6170 Sep, [facility] [place] [facility] [address] [id number] [place] [address]- 7855 Aug, [facility] [place] [facility] [address] [id number] [place] [address]- 1939 Aug, [facility] [address] [id number] [place] [address]- 3112 Aug, [facility] [address] [id number] [place] [address]- 3478 Aug, [facility] [address] [id number] [place] [address]- 6884 Jul, [facility] [address] [id number] [place] [address]- 1107 Jul, [facility] [address] [id number] [place] [address]- 1140 Jul, [facility] [address] [id number] [place] [address]- 6800 Jul, [facility] [address] [id number] [place] [address]- 1110 Jun, [facility] [address] [id number] [place] [address]- 8506 Jun, [facility] [address] [id number] [place] [address]- 5584 Jun, [facility] [place] [facility] [address] [id number] [place] [address]- 6906 Jun, [facility] [place] [facility] [address] [id number], [place] [address]- 7623 Jun, [facility] [place] [facility] [address] [id number] [place] [address]- 0305 Jun, [facility] [place] [facility] [address] [id number] [place] [address]- 7125 Jun, [facility] [place] [facility] [address] [id number] [place] [address]- 4542 Jun, [facility] [place] [facility] [address] [id number], [place] [address]- 0424 30 May, 2012 [facility] [place] [facility] [address] [id number] [place] [address]- 2512 30 May, 2012 [facility] [place] [facility] [address] [id number] [place] [address]- 2770 18 May, 2012 [facility] [place] [facility] [address] [id number] [place] [address]- 5484 18 May, 2012 [facility] [place] [facility] [address] [id number] [place] [address]- 1149 2012 [facility] [place] [facility] [address] [id number] [place] [address]- 8368 13 May, 2012 [facility] [place] [facility] [address] [id number] [place] [address]- 5812 11 May, 2012 [facility] [place] [facility] [address] [id number] [place] [address]- 3951 11 May, 2012 [facility] [place] [facility] [address] [id number] [place] [address]- 5635 10 May, 2012 [facility] [place] [facility] [address] [id number] [place] [address]- 9983 08 May, 2012 [facility] [place] [facility] [address] [id number] [place] [address]- 6944 24 Sep, 2011 [facility] [place] [facility] [address] [id number], [place] [address]- 0352 19 Sep, 2011 [facility] [place] [facility] [address] [id number], [place] [address]- 2476 18 Sep, 2011 [facility] [place] [facility] [address] [id number] [place] [address]- 4847 17 Sep, 2011 [facility] [place] [facility] [address] [id number] [place] [address]- 3329 16 Sep, 2011 [facility] [place] [facility] [address] [id number] [place] [address]- 7348 10 Sep, 2011 [facility] [place] [facility] [address] [id number] [place] [address]- 6101 Mar, [facility] [place] [facility] [address] [id number] [place] [address]- 4604 Mar, [facility] [place] [facility] [address] [id number] [place] [address]- 2616 Mar, [facility] [place] [facility] [address] [id number] [place] [address]- 6860 Mar, [facility] [place] [facility] [address] [id number] [place] [address]- 2453 Mar, [facility] [place] [facility] [address] [id number] [place] [address]- 1830 Mar, [facility] [place] [facility] [address] [id number] [place] [address]- 6552 Feb, [facility] [place] [facility] [address] [id number] [place] [address]- 2118 Feb, [facility] [address] [id number] [place] [address]- 3291 Feb, [facility] [place] [facility] [address] [id number] [place] [address]- 4062 Feb, [facility] [place] [facility] [address] [id number] [place] [address]- 5045 Feb, [facility] [place] [facility] [address] [id number] [place] [address]- 4134 Feb, [facility] [place] [facility] [address] [id number] [place] [address]- 7192 Feb, [facility] [place] [facility] [address] [id number] [place] [address]- 0699 Feb, [facility] [place] [facility] [address] [id number] [place] [address]- 6216 Feb, [facility] [place] [facility] [address] [id number] [place] [address]- 5027 Jan, [facility] [place] [facility] [address] [id number] [place] [address]- 5663 Jan, [facility] [place] [facility] [address] [id number] [place] [address]- 4816 Jan, [facility] [place] [facility] [address] [id number] [place] [address]- 4182 Jan, [facility] [place] [facility] [address] [id number] [place] [address]- 9878 Jan, [facility] [place] [facility] [address] [id number] [place] [address]- 2221 Jan, [facility] [place] [facility] [address] [id number] [place] [address]- 0586 Jan, [facility] [place] [facility] [address] [id number] [place] [address]- 0835 Jan, [facility] [place] [facility] [address] [id number] [place] [address]- 1486 Jan, [facility] [place] [facility] [address] [id number] [place] [address]- 5370 December, [facility] [place] [facility] [address] [id number] [place] [address]- 2243 December, [facility] [place] [facility] [address] [id number] [place] [address]- 9074 December, [facility] [place] [facility] [address] [id number] [place] [address]- 3476 December, [facility] [place] [facility] [address] [id number] [place] [address]- 0414 December, [facility] [place] [facility] [address] [id number] [place] [address]- 5719 December, [facility] [place] [facility] [address] [id number] [place] [address]- 6477 December, [facility] [place] [facility] [address] [id number] [place] [address]- 5009 December, [facility] [address] [id number] [place] [address]- 0287 December, [facility] [address] [id number] [place] [address]- 0680 December, [facility] [address] [id number] [place] [address]- 9274 Nov, [facility] [place] [facility] [address] [id number] [place] [address]- 0152 Nov, [facility] [address] [id number] [place] [address]- 9352 Nov, [facility] [address] [id number] [place] [address]- 7296 Nov, [facility] [address] [id number] [place] [address]- 8979 16 Nov, 2011 [facility] [address] [id number] [place] [address]- 5370 Nov, [facility] [address] [id number] [place] [address]- 0538 Nov, [facility] [address] [id number] [place] [address]- 5256 Nov, [facility] [address] [id number] [place] [address]- 1240 Nov, [facility] [place] [facility] [address] [id number] [place] [address]- 4254 Nov, [facility] [place] [facility] [address] [id number] [place] [address]- 6094 Oct, [facility] [place] [facility] [address] [id number] [place] [address]- 8886 Oct, [facility] [place] [facility] [address] [id number] [place] [address]- 3924 Oct, [facility] [place] [facility] [address] [id number] [place] [address]- 2883 23 Oct, 2011 [facility] [place] [facility] [address] [id number] [place] [address]- 1215 21 Oct, 2011 [facility] [place] [facility] [address] [id number] [place] [address]- 8416 20 Oct, 2011 [facility] [place] [facility] [address] [id number] [place] [address]- 1086 19 Oct, 2011 [facility] [place] [facility] [address] [id number] [place] [address]- 1935 19 Oct, 2011 [facility] [place] [facility] [address] [id number] [place] [address]- 9341 16 Oct, 2011 [facility] [place] [facility] [address] [id number] [place] [address] 14 Oct, 2011 [facility] [place] [facility] [address] [id number] [place] [address] 49[address] 14 Oct, 2011 [facility] [place] [facility] [address] [id number] [place] [address] 09 Oct, 2011 [facility] [place] [facility] [address] [id number] [place] [address] 08 Oct, 2011 [facility] [place] [facility] [address] [id number] [place] [address] 06 Oct, 2011 [facility] [place] [facility] [address] [id number] [place] [address] 02 Oct, 2011 [facility] [place] [facility] [address] [id number] [place] [address] 45[address] 28 Sep, 2011 [facility] [place] [facility] [address] [id number] [place] [address] 7847 24 Sep, 2011 [facility] [place] [facility] [address] [id number] [place] [address]86 20 Sep, 2011 [facility] [place] [facility] [address] [id number] [place] [address]- 7055 17 Sep, 2011 [facility] [address] [id number] [place] [address] 16 Sep, 2011 [facility] [place] [facility] [address] [id number] [place] [address] 2546 14 Sep, 2011 [facility] [place] [facility] [address] [id number] [place] [address]- 9756 13 Sep, 2011 [facility] [place] [facility] [address] [id number] [place] [address]- [address]498 10 Sep, 2011 [facility] [place] [facility] [address] [id number] [place] [address]- 7466 06 Sep, 2011 [facility] [place] [facility] [address] [id number] [place] [address]236 03 Sep, 2011 [facility] [address] [id number] [place] [address] Sep, [facility] [place] [facility] [address] [id number] [place] [address] 5932 30 Aug, 2011 [facility] [place] [facility] [address] [id number] [place] [address] Aug, [facility] [place] [facility] [address] [id number] [place] [address] Aug, [facility] [place] [facility] [address] [id number] [place] [address] Aug, [facility] [place] [facility] [address] [id number] [place] [address] Aug, [facility] [place] [facility] [address] [id number] [place] [address] Aug, [facility] [place] [facility] [address] [id number] [place] [address]96 Aug, [facility] [place] [facility] [address] [id number] [place] [address]367 Aug, [facility] [place] [facility] [address] [id number] [place] [address] 8451 16 Aug, 2011 [facility] [address] [id number] [place] [address] 2415 13 Aug, 2011 [facility] [address] [id number] [place] [address] 11 Aug, 2011 [facility] [address] [id number] [place] [address] 2414 Aug, [facility] [address] [id number] [place] [address] Aug, [facility] [address] [id number] [place] [address] 6416 Aug, [facility] [address] [id number] [place] [address] Aug, [facility] [address] [id number] [place] [address] Aug, [facility] [address] [id number] [place] [address]777 Aug, [facility] [address] [id number] [place] [address] Jul, [facility] [address] [id number] [place] [address] 4826 Jul, [facility] [address] [id number] [place] [address] 8640 Jul, [facility] [address] [id number] [place] [address] Jul, [facility] [address] [id number] [place] [address] Jul, [facility] [address] [id number] [place] [address] Jul, [facility] [address] [id number] [address] Jul, [facility] [address] [id number] [address] Jul, [facility] [address] [facility] [id number] Jul, [facility] [address] [id number] [address] Jul, [facility] [address] [id number] Jul, [facility] [address] [id number] [address] Jun, [facility] [address] [id number] [address] Jun, [facility] [address] [id number], [place] [address] Jun, IMMUNIZATIONS No Known Immunizations SOCIAL HISTORY Never Assessed REASON FOR VISIT Controlled Meds Due Date PLAN OF CARE VITAL SIGNS MEDICATIONS Unknown [...]
--- OUTSIDE RECORDS SUMMARY | 2018-08-05 03:17 | XMS REPORT ---
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 Name Role Phone HEATHER FINE Unavailable PROBLEMS Type Condition ICD9-CM Code XWN22-EO Code Onset Dates Condition Status SNOMED Code Problem Unspecified cirrhosis of liver K74.60 Active 603350280 Problem Lymphocytosis D72.820 Active 87318181 Problem Secondary esophageal varices with bleeding I85.11 Active 15840579 Problem Anxiety F41.9 Active 77624361 Problem Asthma J45.909 Active 271690139 Problem Chronic back pain M54.9 Active 426905514 Problem Dysthymia F34.1 Active 48370729 Problem Thrombocytosis D47.3 Active 7202849 Problem Splenomegaly R16.1 Active 18452368 Problem 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 Active 638829866 Problem History of hepatitis C Z86.19 Active [id number] ALLERGIES No Information ENCOUNTERS Encounter Location Date Diagnosis [place] [id number] [place] [address] 17650- 9429 Mar, Anxiety F41.9 [place] [id number] [place] [address] 32009- 4676 Mar, [facility] [id number] [place] [address] 86582- 2624 Mar, Right arm pain M79.601 [facility] [address] [place] [id number] [place] [address] 72055- 4510 Mar, Anxiety F41.9 [facility] [address] [place] [address] 20358- 8083 Feb, [facility] [address] [place] [address] 89066- 3465 Feb, Chronic back pain M54.9 ; Anxiety F41.9 and Dysuria R30.0 [facility] [address] [place] [id number] [place] [address] 83596- 0750 Feb, [facility] [address] [id number] [place] [address] 21268- 8186 Feb, Anxiety F41.9 [facility] [address] [id number] [place] [address] 98139- 7142 Jan, [facility] [id number] [place] [address] 88206- 0996 Jan, Chronic back pain M54.9 and Anxiety F41.9 [facility] [address] [id number] [place] [address] 45063- 7777 December, Chronic back pain M54.9 and Anxiety F41.9 [facility] [address] [place] [id number] [place] [address] 55258- 6727 Nov, Chronic back pain M54.9 and Anxiety F41.9 [facility] [address] [id number] [place] [address] 53819- 5877 Oct, Chronic back pain M54.9 and Anxiety F41.9 [facility] [address] [id number] [place] [address] 74174- 1699 Oct, [facility] [id number] [place] [address] 55312- 2344 Sep, Chronic back pain M54.9 ; Anxiety F41.9 ; Pain of left leg M79.605 and Pain in right leg M79.604 [facility] [id number] [place] [address] 02615- 3232 Sep, Anxiety F41.9 and Chronic back pain M54.9 [facility] [address] [id number] [place] [address] 98496- 5122 Sep, [facility] [address] [address] [id number] [place] [address] 95444- 8303 Aug, Anxiety F41.9 [facility] [address] [id number] [place] [address] 65805- 0298 Jul, Anxiety F41.9 [facility] [address] [id number] [place] [address] 74295- 5116 Jul, [facility] [id number] [place] [address] 53765- 3836 Jul, Viral syndrome B34.9 ; Chronic back pain M54.9 and Dysuria R30.0 [facility] [address] [address] [id number] [place] [address] 91870- 7460 Jun, [facility] [address] 39574- 8745 Jun, Anxiety F41.9 [facility] [address] [id number] [place] [address] 94170 -9046 Jun, Dysuria R30.0 and Acute cystitis without hematuria N30.00 [facility] [address] [id number] [place] [address] 56665- 9613 Jun, [facility] [address] 63032- 5302 May, Anxiety F41.9 [facility] [address] [id number] [place] [address] 66381- 5942 May, Anxiety F41.9 [facility] [address] [id number] [place] [address] 35483- 5308 Apr, [facility] [address] [address] [id number] [place] [address] 06665- 6831 Apr, Chronic back pain M54.9 and Anxiety F41.9 [facility] [address] [address] [id number] [place] [address] 62805- 3283 Mar, [facility] [address] [id number] [place] [address] 31449- 9651 Mar, [facility] [address] [address]- 3810 Mar, 2017 Well woman exam Z01.419 ; Cervical cancer screening Z12.4 ; Breast cancer screening Z12.31 and Colon cancer screening Z12.11 [facility] [address] [address]- 4643 Mar, Chronic back pain M54.9 and Anxiety F41.9 [facility] [address] [id number] [place] [address] 03746- 9127 Mar, [facility] [address] [place] [id number] [place] [address] 82065- 6969 Feb, Chronic back pain M54.9 and Anxiety F41.9 [facility] [address] [place] [id number] [place] [address] 15823- 8539 Feb, [facility] [address] [place] [id number] [place] [address] 99938- 0032 Feb, [facility] [address] [id number] [place] [address] 30672- 1174 Jan, Chronic back pain M54.9 and Anxiety F41.9 [facility] [address] [address] [id number] [address]- 1153 Jan, [facility] [address] [id number] [place] [address] 92655- 7816 Jan, [facility] [address] [id number] [place] [address] 37591- 5929 December, Chronic back pain M54.9 and Anxiety F41.9 [facility] [address] [id number] [place] [address] 82340- 6204 Nov, Chronic back pain M54.9 and Anxiety F41.9 [facility] [address] [address]- 9058 Oct, Chronic back pain M54.9 and Anxiety F41.9 [facility] [address] [place] [id number] [place] [address] 28289- 8737 Oct, Chronic back pain M54.9 [facility] [address] 03358- 6945 Sep, Anxiety F41.9 and Chronic back pain M54.9 [facility] [address] [id number] [place] [address] 55033- 0886 Aug, Anxiety F41.9 and Chronic back pain M54.9 [facility] [address] [place] [id number] [place] [address] 53419- 7683 Aug, [facility] [address] 43829- 1994 Jul, Chronic back pain M54.9 and Anxiety F41.9 [facility] [address] [place] [id number] [place] [address] 79979- 8386 Jul, Anxiety F41.9 and Chronic back pain M54.9 [facility] [address] [place] [address] Jul, [facility] [address] [place] [id number] [place] [address] 38447- 1265 Jul, Anxiety F41.9 [facility] [address] [place] [id number] [place] [address] 27711- 7771 Jul, Anxiety F41.9 and Dysuria R30.0 [facility] [address] [place] [id number] [place] [address] 28279- 9592 Jul, Chronic back pain M54.9 and Anxiety F41.9 [facility] [address] [place] [id number] [place] [address] 42913- 9589 Jun, Chronic back pain M54.9 [facility] [address] [id number] [place] [address] 33092- 0053 Jun, Chronic back pain M54.9 [facility] [address] [place] [id number] [place] [address] 32362- 7385 May, Anxiety F41.9 [facility] [address] [facility] [id number], [place] [address]- 8783 May, Chronic back pain M54.9 [facility] [address] [facility] [id number], [place] [address]- 1136 Apr, [facility] [address] [facility] [id number] [place] [address] 13749 2546 Apr, [facility] [address] [facility] [id number] [place] [address] 92215- 9580 Apr, [facility] [address] [facility] [id number] [place] [address] 48659- 0104 Apr, Chronic back pain M54.9 [facility] [address] [facility] [id number], [place] [address]- 1576 Mar, Chronic back pain M54.9 [facility] [address] [facility] [id number] [place] [address] 04463- 8898 Feb, Grief F43.20 [facility] [address] [facility] [id number] [place] [address] 08526- 2134 Feb, Chronic back pain M54.9 and Anxiety F41.9 [facility] [address] [facility] [id number], [place] [address]- 6705 Feb, Chronic back pain M54.9 [facility] [address] [facility] [id number], [place] [address]- 0596 Jan, Chronic back pain M54.9 [facility] [address] [facility] [id number], [place] [address]- 1756 December, [facility] [address] [facility] [id number], [place] [address]- 4136 December, Grief F43.20 [facility] [address] [facility] [id number], [place] [address]- 9670 Nov, [facility] [address] [place] [id number] [place] [address] 39993- 5728 28 Oct, 2015 Cervicalgia M54.2 ; Secondary esophageal varices with bleeding I85.11 and Mouth pain K13.79 [facility] [address] [place] [id number] [place] [address] 19948- 0587 22 Oct, 2015 [facility] [address] [id number] [place] [address] 48661- 0017 14 Oct, 2015 [facility] [address] [id number] [place] [address] 33063- 1183 Sep, [facility] [address] [place] [id number] [place] [address] 20505- 7107 Sep, Acute maxillary sinusitis, recurrence not specified J01.00 [facility] [address] [place] [id number] [place] [address] 33698- 5911 Aug, [facility] [address] [id number] [place] [address] 98107- 0262 Aug, [facility] [address] [place] [id number] [place] [address] 93203- 0433 Aug, Dysuria R30.0 and Chronic back pain M54.9 [facility] [address] [place] [id number] [place] [address] 32683- 5681 Jul, [facility] [address] [id number] [place] [address] 05462- 3178 Jul, [facility] [address] [id number] [place] [address] 31942- 9652 Jul, [facility] [address] [id number] [place] [address] 90644- 1264 Jul, Chronic back pain M54.9 [facility] [address] [id number] [place] [address] 51412- 6418 Jul, Dysthymia F34.1 and Chronic back pain M54.9 [facility] [address] [place] [id number] [place] [address] 39517- 3947 Jun, [facility] [address] [address]- 1331 Jun, [facility] [address] [place] [address] 63807- 5966 May, [facility] [address] [id number] [place] [address] 17607- 0541 May, [facility] [address] [id number] [place] [address] 61586- 3850 May, [facility] [address] [id number] [place] [address] 60297- 2916 May, Encounter for immunization Z23 [facility] [address] [id number] [place] [address] 68265- 2215 Apr, [facility] [address] [id number] [place] [address] 40059- 2014 Apr, [facility] [address] [place] [address] 81135- 8841 Mar, [facility] [address] [id number] [place] [address] 09048- 3737 Mar, Back pain 724.5 [facility] [address] [place] [address] 36527- 8558 Mar, Cough 786.2 and Back pain 724.5 [facility] [address] [place] [address] 81613- 2031 Mar, [facility] [address] [place] [address] 08894- 3377 Mar, [facility] [address] [id number] [place] [address] 85753- 0676 December, [facility] [address] 3350 December, [facility] [address] [id number] [place] [address] 32902- 4230 14 Nov, 2014 [facility] [place] [facility] [address] [id number] [place] [address]- 5395 Nov, [facility] [place] [facility] [address] [id number] [place] [address]- 3391 Oct, [facility] [place] [facility] [address] [facility] [id number] [place] [address]- 3761 Oct, [facility] [place] [facility] [address] [id number] [place] [address]- 9484 Sep, 2014 [facility] [place] [facility] [address] [id number] [place] [address]- 1674 Sep, [facility] [place] [facility] [address] [id number] [place] [address]- 0915 Sep, [facility] [place] [facility] [address] [facility] [id number] [place] [address]- 5172 Sep, 2014 [facility] [place] [facility] [address] [facility] [id number] [place] [address]- 3104 Sep, [facility] [place] [facility] [address] [facility] [id number] [place] [address]- 4719 Sep, [facility] [place] [facility] [address] [facility] [id number] [place] [address]- 6893 Sep, [facility] [place] [facility] [address] [facility] [id number] [place] [address]- 4394 Sep, [facility] [place] [facility] [address] [facility] [id number] [place] [address]- 1690 Aug, [facility] [place] [facility] [address] [id number] [place] [address]- 3966 Aug, [facility] [place] [facility] [address] [facility] [id number] [place] [address]- 3502 Aug, [facility] [place] [facility] [address] [facility] [id number] [place] [address]- 3127 Aug, [facility] [place] [facility] [address] [id number] [place] [address]- 7744 13 Aug, 2014 [facility] [place] [facility] [address] [id number] [place] [address]- 0886 Aug, [facility] [place] [facility] [address] [id number] [place] [address]- 4576 Aug, [facility] [place] [facility] [address] [id number] [place] [address]- 2021 Jul, [facility] [place] [facility] [address] [id number] [place] [address]- 2504 Jul, [facility] [place] [facility] [address] [id number] [place] [address]- 0913 Jul, [facility] [place] [facility] [address] [id number] [place] [address]- 1572 Jul, [facility] [place] [facility] [address] [id number] [place] [address]- 6672 Jul, [facility] [place] [facility] [address] [id number] [place] [address]- 7683 Jul, [facility] [place] [facility] [address] [id number] [place] [address]- 9874 Jul, [facility] [place] [facility] [address] [id number] [place] [address]- 3909 Jul, [facility] [place] [facility] [address] [id number] [place] [address]- 5025 Jun, [facility] [place] [facility] [address] [id number] [place] [address]- 5424 Jun, [facility] [place] [facility] [address] [id number] [place] [address]- 1609 Jun, [facility] [place] [facility] [address] [id number] [place] [address]- 5385 Jun, [facility] [place] [facility] [address] [id number], [place] [address]- 3589 Jun, [facility] [place] [facility] [address] [id number] [place] [address]- 4014 Jun, [facility] [place] [facility] [address] [id number] [place] 3761 Jun, [facility] [place] [facility] [address] [id number] [place] [address]- 7980 28 May, 2014 [facility] [place] [facility] [address] [id number] [place] [address]- 5837 28 May, 2014 [facility] [place] [facility] [address] [id number] [place] [address]- 9652 28 May, 2014 [facility] [place] [facility] [address] [id number] [place] [address]- 8455 28 May, 2014 [facility] [place] [facility] [address] [id number] [place] [address]- 6535 2014 [facility] [place] [facility] [address] [id number] [place] [address]- 3943 2014 [facility] [place] [facility] [address] [id number] [place] [address]- 3861 2014 [facility] [place] [facility] [address] [id number] [place] [address]- 9322 2014 [facility] [place] [facility] [address] [id number], [place] [address]- 8935 13 May, 2014 [facility] [place] [facility] [address] [id number], [place] [address]- 2901 13 May, 2014 [facility] [place] [facility] [address] [id number] [place] [address]- 7160 10 May, 2014 [facility] [place] [facility] [address] [id number], [place] [address]- 1955 10 May, 2014 [facility] [place] [facility] [address] [id number] [place] [address]- 3173 08 May, 2014 [facility] [place] [facility] [address] [id number] [place] [address]- 7478 May, [facility] [place] [facility] [address] [id number] [place] [address]- 9669 Apr, [facility] [place] [facility] [address] [id number] [place] [address]- 7886 Apr, 2013 [facility] [place] [facility] [address] [id number] [place] [address]- 7446 Apr, 2013 [facility] [place] [facility] [address] [id number] [place] [address]- 1407 Apr, 2013 [facility] [place] [facility] [address] [id number] [place] [address]- 4811 Apr, [facility] [place] [facility] [address] [id number] [place] [address]- 0177 Apr, [facility] [place] [facility] [address] [id number] [place] [address]- 0886 Apr, [facility] [place] [facility] [address] [id number] [place] [address]- 0586 Mar, [facility] [place] [facility] [address] [id number] [place] [address]- 8194 Mar, [facility] [place] [facility] [address] [id number] [place] [address]- 4424 Mar, [facility] [place] [facility] [address] [id number] [place] [address]- 3697 Mar, [facility] [place] [facility] [address] [id number] [place] [address]- 6129 Mar, [facility] [place] [facility] [address] [id number] [place] [address]- 9545 Mar, [facility] [place] [facility] [address] [id number] [place] 2870 Feb, [facility] [place] [facility] [address] [id number] [place] [address]- 2770 Feb, [facility] [place] [facility] [address] [id number] [place] [address]- 9846 Feb, [facility] [place] [facility] [address] [id number] [place] [address]- 0826 Feb, [facility] [place] [facility] [address] [id number] [place] [address]- 5193 Feb, [facility] [place] [facility] [address] [id number] [place] [address]- 0723 Feb, [facility] [place] [facility] [address] [id number] [place] [address] Feb, [facility] [place] [facility] [address] [id number] [place] [address] Feb, [facility] [place] [facility] [address] [id number] [place] [address] Jan, [facility] [place] [facility] [address] [id number] [place] [address] Jan, [facility] [place] [facility] [address] [id number] [place] [address] December, [facility] [place] [facility] [address] [id number] [place] [address] December, [facility] [place] [facility] [address] [id number] [place] [address] December, [facility] [place] [facility] [address] [id number] [place] [address] December, [facility] [place] [facility] [address] [id number] [place] [address] December, [facility] [place] [facility] [address] [id number] [place] [address] December, [facility] [place] [facility] [address] [id number] [place] [address] December, [facility] [place] [facility] [address] [id number] [place] [address] December, [facility] [place] [facility] [address] [id number] [place] [address] December, [facility] [place] [facility] [address] [id number] [place] [address] December, [facility] [place] [facility] [address] [id number] [place] [address] December, [facility] [place] [facility] [address] [id number] [place] [address] December, [facility] [place] [facility] [address] [id number] [place] [address] Nov, [facility] [place] [facility] [address] [id number] [place] [address] Nov, [facility] [place] [facility] [address] [id number] [place] [address] Nov, [facility] [place] [facility] [address] [id number] [place] [address] Nov, [facility] [place] [facility] [address] [id number] [place] [address] Nov, [facility] [place] [facility] [address] [id number] [place] [address] Nov, [facility] [place] [facility] [address] [id number] [place] [address] Nov, [facility] [place] [facility] [address] [id number] [place] [address] Nov, [facility] [place] [facility] [address] [id number] [place] [address] Nov, [facility] [place] [facility] [address] [id number] [place] [address] Nov, [facility] [place] [facility] [address] [id number] [place] [address] Nov, [facility] [place] [facility] [address] [id number] [place] [address] Nov, [facility] [place] [facility] [address] [id number] [place] [address] Nov, [facility] [place] [facility] [address] [id number] [place] [address] Oct, [facility] [place] [facility] [address] [id number] [place] [address] Oct, [facility] [place] [facility] [address] [id number] [place] [address] Sep, [facility] [place] [facility] [address] [id number] [place] [address] Sep, [facility] [place] [facility] [address] [id number] [place] [address] Sep, [facility] [place] [facility] [address] [id number] [place] [address] Sep, [facility] [place] [facility] [address] [id number] [place] [address] Sep, [facility] [place] [facility] [address] [id number] [place] [address] Sep, [facility] [place] [facility] [address] [id number] [place] [address] Sep, [facility] [place] [facility] [address] [id number] [place] [address] 18 Sep, 2013 [facility] [place] [facility] [address] [id number] [place] [address] Sep, [facility] [place] [facility] [address] [id number] [place] [address] Sep, [facility] [place] [facility] [address] [facility] [id number] [place] [address] 05 Sep, 2013 [facility] [place] [facility] [address] [id number] [place] [address] 05 Sep, 2013 [facility] [address] [id number] [place] [address] Aug, [facility] [address] [id number] [place] [address] 46[address] Aug, [facility] [address] [id number] [place] [address] 28[address] Aug, [facility] [address] [id number] [place] [address] 9095 Aug, [facility] [address] [id number] [place] [address] 3963 Aug, [facility] [address] [id number] [place] [address] 49[address] Aug, [facility] [address] [id number] [place] [address] 28[address] Aug, [facility] [address] [id number] [place] [address] 4440 Aug, [facility] [address] [id number] [place] [address] 9159 Aug, [facility] [address] [id number] [place] [address] 9810 Aug, [facility] [address] [id number] [place] [address] 6[address] Aug, [facility] [address] [id number] [place] [address] 7770 Aug, [facility] [place] [facility] [address] [id number] [place] [address] 6268 Aug, [facility] [place] [facility] [address] [id number] [place] [address] 2169 Aug, [facility] [place] [facility] [address] [id number] [place] [address] 1239 Aug, [facility] [place] [facility] [address] [id number] [place] [address]- 7864 Aug, [facility] [place] [facility] [address] [id number] [place] [address]- 3825 Aug, [facility] [place] [facility] [address] [id number] [place] [address]- 9369 Aug, [facility] [place] [facility] [address] [id number] [place] [address]- 0345 Aug, [facility] [address] [id number] [place] [address]- 9205 Aug, [facility] [place] [facility] [address] [id number] [place] [address]- 9916 Aug, [facility] [address] [id number] [place] [address]- 1102 Aug, [facility] [address] [id number] [place] [address]- 3310 Aug, [facility] [place] [facility] [address] [id number] [place] [address]- 1512 Jul, [facility] [place] [facility] [address] [id number] [place] [address]- 3029 Jul, [facility] [place] [facility] [address] [id number] [place] [address]- 5911 Jul, [facility] [place] [facility] [address] [id number], [place] [address] 8318 Jul, [facility] [place] [facility] [address] [id number] [place] [address]- 2258 Jul, [facility] [place] [facility] [address] [id number] [place] [address]- 4364 Jul, [facility] [place] [facility] [address] [id number] [place] [address]- 9186 Jun, [facility] [place] [facility] [address] [id number], [place] [address]- 00[address] Jun, [facility] [place] [facility] [address] [id number] [place] [address]- 4942 Jun, [facility] [place] [facility] [address] [id number], [place] [address] 3840 Jun, [facility] [place] [facility] [address] [id number] [place] [address]- 7039 Jun, [facility] [place] [facility] [address] [id number], [place] [address]- 0083 Jun, [facility] [place] [facility] [address] [id number] [place] [address]- 5268 Jun, [facility] [place] [facility] [address] [id number] [place] [address]- 3688 Jun, [facility] [place] [facility] [address] [id number], [place] [address]- 8942 Jun, [facility] [place] [facility] [address] [id number] [place] [address]- 5915 Jun, [facility] [place] [facility] [address] [id number], [place] [address]- 7606 May, [facility] [place] [facility] [address] [id number] [place] [address]- 0659 May, [facility] [place] [facility] [address] [id number], [place] [address]- 3122 May, [facility] [place] [facility] [address] [id number], [place] [address]- 9457 May, [facility] [place] [facility] [address] [id number], [place] [address]- 6393 May, [facility] [place] [facility] [address] [id number], [place] [address]- 0624 May, [facility] [place] [facility] [address] [id number] [place] [address]- 9397 May, [facility] [place] [facility] [address] [id number] [place] [address]- 2381 May, [facility] [place] [facility] [address] [id number] [place] [address]- 5829 May, [facility] [place] [facility] [address] [id number] [place] [address]- 8999 May, [facility] [place] [facility] [address] [id number] [place] [address]- 2751 17 May, 2012 [facility] [place] [facility] [address] [id number] [place] [address]- 5059 16 May, 2013 [facility] [place] [facility] [address] [id number] [place] [address]- 8050 May, [facility] [place] [facility] [address] [id number] [place] [address]- 3352 16 May, 2013 [facility] [place] [facility] [address] [id number] [place] [address]- 3964 May, [facility] [place] [facility] [address] [id number] [place] [address]- 0734 24 Apr, 2013 [facility] [place] [facility] [address] [id number] [place] [address]- 6008 23 Apr, 2013 [facility] [place] [facility] [address] [id number] [place] [address]- 1510 Apr, [facility] [place] [facility] [address] [id number] [place] [address]- 2507 Mar, [facility] [place] [facility] [address] [id number] [place] [address]- 7197 Mar, [facility] [place] [facility] [address] [id number] [place] [address]- 9909 Mar, [facility] [place] [facility] [address] [id number] [place] [address]- 9166 Mar, [facility] [place] [facility] [address] [id number] [place] [address]- 0304 Mar, [facility] [place] [facility] [address] [id number] [place] [address]- 4069 Mar, [facility] [place] [facility] [address] [id number] [place] [address]- 4312 Feb, [facility] [place] [facility] [address] [id number] [place] [address]- 4275 Feb, [facility] [place] [facility] [address] [id number] [place] [address]- 2114 Feb, [facility] [place] [facility] [address] [id number] [place] [address]- 9944 Feb, [facility] [place] [facility] [address] [id number] [place] [address]- 3856 Feb, [facility] [place] [facility] [address] [id number] [place] [address]- 8433 Feb, [facility] [place] [facility] [address] [id number] [place] [address]- 0221 Feb, [facility] [place] [facility] [address] [id number] [place] [address]- 1923 Feb, [facility] [place] [facility] [address] [id number] [place] [address]- 3979 Feb, [facility] [place] [facility] [address] [id number] [place] [address]- 2521 Feb, [facility] [place] [facility] [address] [id number] [place] [address]- 5922 Jan, [facility] [place] [facility] [address] [id number] [place] [address]- 8294 Jan, [facility] [place] [facility] [address] [id number] [place] [address]- 6150 Jan, [facility] [place] [facility] [address] [id number] [place] [address]- 2859 Jan, [facility] [place] [facility] [address] [id number] [place] [address]- 7133 December, [facility] [address] [id number] [place] [address]- 1181 December, [facility] [address] [id number] [place] [address]- 7147 December, [facility] [address] [id number] [place] [address]- 6950 Nov, [facility] [place] [facility] [address] [id number] [place] [address]- 5126 Nov, [facility] [address] [id number] [place] [address]- 9382 Nov, [facility] [address] [id number] [place] [address]- 4657 Nov, [facility] [address] [id number] [place] [address]- 7482 Nov, [facility] [address] [id number] [place] [address]- 3778 Nov, [facility] [address] [id number] [place] [address]- 1043 Oct, [facility] [place] [facility] [address] [id number] [place] [address]- 9777 Oct, [facility] [place] [facility] [address] [id number] [place] [address]- 2305 Oct, [facility] [place] [facility] [address] [id number] [place] [address]- 8695 Sep, [facility] [place] [facility] [address] [id number] [place] [address]- 2839 Sep, [facility] [place] [facility] [address] [id number] [place] [address]- 9643 Sep, [facility] [place] [facility] [address] [id number] [place] [address]- 5423 Aug, [facility] [place] [facility] [address] [id number] [place] [address]- 6585 Aug, [facility] [address] [id number] [place] [address]- 5250 Aug, [facility] [address] [id number] [place] [address]- 4666 Aug, [facility] [address] [id number] [place] [address]- 6499 Jul, [facility] [address] [id number] [place] [address]- 3800 Jul, [facility] [address] [id number] [place] [address]- 5005 Jul, [facility] [address] [id number] [place] [address]- 6904 Jul, [facility] [address] [id number] [place] [address]- 1815 Jun, [facility] [address] [id number] [place] [address]- 8447 Jun, [facility] [address] [id number] [place] [address]- 8740 Jun, [facility] [place] [facility] [address] [id number] [place] [address]- 3216 Jun, [facility] [place] [facility] [address] [id number], [place] [address]- 2246 Jun, [facility] [place] [facility] [address] [id number] [place] [address]- 2395 Jun, [facility] [place] [facility] [address] [id number] [place] [address]- 3754 Jun, [facility] [place] [facility] [address] [id number] [place] [address]- 3546 Jun, [facility] [place] [facility] [address] [id number], [place] [address]- 8578 30 May, 2012 [facility] [place] [facility] [address] [id number] [place] [address]- 2096 30 May, 2012 [facility] [place] [facility] [address] [id number] [place] [address]- 4076 18 May, 2012 [facility] [place] [facility] [address] [id number] [place] [address]- 8251 18 May, 2012 [facility] [place] [facility] [address] [id number] [place] [address]- 3377 2012 [facility] [place] [facility] [address] [id number] [place] [address]- 2257 13 May, 2012 [facility] [place] [facility] [address] [id number] [place] [address]- 2485 11 May, 2012 [facility] [place] [facility] [address] [id number] [place] [address]- 4477 11 May, 2012 [facility] [place] [facility] [address] [id number] [place] [address]- 1183 10 May, 2012 [facility] [place] [facility] [address] [id number] [place] [address]- 6437 08 May, 2012 [facility] [place] [facility] [address] [id number] [place] [address]- 1479 24 Sep, 2011 [facility] [place] [facility] [address] [id number], [place] [address]- 3074 19 Sep, 2011 [facility] [place] [facility] [address] [id number], [place] [address]- 6597 18 Sep, 2011 [facility] [place] [facility] [address] [id number] [place] [address]- 3106 17 Sep, 2011 [facility] [place] [facility] [address] [id number] [place] [address]- 4969 16 Sep, 2011 [facility] [place] [facility] [address] [id number] [place] [address]- 9996 10 Sep, 2011 [facility] [place] [facility] [address] [id number] [place] [address]- 7580 Mar, [facility] [place] [facility] [address] [id number] [place] [address]- 8225 Mar, [facility] [place] [facility] [address] [id number] [place] [address]- 8366 Mar, [facility] [place] [facility] [address] [id number] [place] [address]- 8760 Mar, [facility] [place] [facility] [address] [id number] [place] [address]- 7582 Mar, [facility] [place] [facility] [address] [id number] [place] [address]- 5960 Mar, [facility] [place] [facility] [address] [id number] [place] [address]- 4815 Feb, [facility] [place] [facility] [address] [id number] [place] [address]- 6392 Feb, [facility] [address] [id number] [place] [address]- 4705 Feb, [facility] [place] [facility] [address] [id number] [place] [address]- 1131 Feb, [facility] [place] [facility] [address] [id number] [place] [address]- 3269 Feb, [facility] [place] [facility] [address] [id number] [place] [address]- 7031 Feb, [facility] [place] [facility] [address] [id number] [place] [address]- 8082 Feb, [facility] [place] [facility] [address] [id number] [place] [address]- 5558 Feb, [facility] [place] [facility] [address] [id number] [place] [address]- 8416 Feb, [facility] [place] [facility] [address] [id number] [place] [address]- 3567 Jan, [facility] [place] [facility] [address] [id number] [place] [address]- 4439 Jan, [facility] [place] [facility] [address] [id number] [place] [address]- 7198 Jan, [facility] [place] [facility] [address] [id number] [place] [address]- 1292 Jan, [facility] [place] [facility] [address] [id number] [place] [address]- 8584 Jan, [facility] [place] [facility] [address] [id number] [place] [address]- 2332 Jan, [facility] [place] [facility] [address] [id number] [place] [address]- 5677 Jan, [facility] [place] [facility] [address] [id number] [place] [address]- 3927 Jan, [facility] [place] [facility] [address] [id number] [place] [address]- 3541 Jan, [facility] [place] [facility] [address] [id number] [place] [address]- 0052 December, [facility] [place] [facility] [address] [id number] [place] [address]- 5062 December, [facility] [place] [facility] [address] [id number] [place] [address]- 4573 December, [facility] [place] [facility] [address] [id number] [place] [address]- 9086 December, [facility] [place] [facility] [address] [id number] [place] [address]- 8498 December, [facility] [place] [facility] [address] [id number] [place] [address]- 1504 December, [facility] [place] [facility] [address] [id number] [place] [address]- 5527 December, [facility] [place] [facility] [address] [id number] [place] [address]- 6817 December, [facility] [address] [id number] [place] [address]- 5627 December, [facility] [address] [id number] [place] [address]- 4976 December, [facility] [address] [id number] [place] [address]- 5244 Nov, [facility] [place] [facility] [address] [id number] [place] [address]- 3993 Nov, [facility] [address] [id number] [place] [address]- 6011 Nov, [facility] [address] [id number] [place] [address]- 2912 Nov, [facility] [address] [id number] [place] [address]- 2623 16 Nov, 2011 [facility] [address] [id number] [place] [address]- 6977 Nov, [facility] [address] [id number] [place] [address]- 2959 Nov, [facility] [address] [id number] [place] [address]- 6638 Nov, [facility] [address] [id number] [place] [address]- 8844 Nov, [facility] [place] [facility] [address] [id number] [place] [address]- 2741 Nov, [facility] [place] [facility] [address] [id number] [place] [address]- 3508 Oct, [facility] [place] [facility] [address] [id number] [place] [address]- 6528 Oct, [facility] [place] [facility] [address] [id number] [place] [address]- 0546 Oct, [facility] [place] [facility] [address] [id number] [place] [address]- 2527 23 Oct, 2011 [facility] [place] [facility] [address] [id number] [place] [address]- 6153 21 Oct, 2011 [facility] [place] [facility] [address] [id number] [place] [address]- 7616 20 Oct, 2011 [facility] [place] [facility] [address] [id number] [place] [address]- 8106 19 Oct, 2011 [facility] [place] [facility] [address] [id number] [place] [address]- 9419 19 Oct, 2011 [facility] [place] [facility] [address] [id number] [place] [address]- 2544 16 Oct, 2011 [facility] [place] [facility] [address] [id number] [place] [address]- 7168 14 Oct, 2011 [facility] [place] [facility] [address] [id number] [place] [address]- 5696 14 Oct, 2011 [facility] [place] [facility] [address] [id number] [place] [address]- 9128 09 Oct, 2011 [facility] [place] [facility] [address] [id number] [place] [address]- 9629 08 Oct, 2011 [facility] [place] [facility] [address] [id number] [place] [address]- [address] 06 Oct, 2011 [facility] [place] [facility] [address] [id number] [place] [address] 02 Oct, 2011 [facility] [place] [facility] [address] [id number] [place] [address] 28 Sep, 2011 [facility] [place] [facility] [address] [id number] [place] [address] 24 Sep, 2011 [facility] [place] [facility] [address] [id number] [place] [address] 20 Sep, 2011 [facility] [place] [facility] [address] [id number] [place] [address] 17 Sep, 2011 [facility] [address] [id number] [place] [address]66 16 Sep, 2011 [facility] [place] [facility] [address] [id number] [place] [address] 14 Sep, 2011 [facility] [place] [facility] [address] [id number] [place] [address] 13 Sep, 2011 [facility] [place] [facility] [address] [id number] [place] [address] 10 Sep, 2011 [facility] [place] [facility] [address] [id number] [place] [address] 06 Sep, 2011 [facility] [place] [facility] [address] [id number] [place] [address] 03 Sep, 2011 [facility] [address] [id number] [place] [address] Sep, [facility] [place] [facility] [address] [id number] [place] [address] 30 Aug, 2011 [facility] [place] [facility] [address] [id number] [place] [address] Aug, [facility] [place] [facility] [address] [id number] [place] [address] Aug, [facility] [place] [facility] [address] [id number] [place] [address] Aug, [facility] [place] [facility] [address] [id number] [place] [address] Aug, [facility] [place] [facility] [address] [id number] [place] [address] Aug, [facility] [place] [facility] [address] [id number] [place] [address] Aug, [facility] [place] [facility] [address] [id number] [place] [address] Aug, [facility] [place] [facility] [address] [id number] [place] [address] 16 Aug, 2011 [facility] [address] [id number] [place] [address] 13 Aug, 2011 [facility] [address] [id number] [place] [address]676 11 Aug, 2011 [facility] [address] [id number] [place] [address] Aug, [facility] [address] [id number] [place] [address] Aug, [facility] [address] [id number] [place] [address] Aug, [facility] [address] [id number] [place] [address] 3474 Aug, [facility] [address] [id number] [place] [address] Aug, [facility] [address] [id number] [place] [address] Aug, [facility] [address] [id number] [place] [address] Jul, [facility] [address] [id number] [place] [address] 2865 Jul, [facility] [address] [id number] [place] [address] Jul, [facility] [address] [id number] [place] [address] Jul, [facility] [address] [id number] [place] [address] Jul, [facility] [address] [id number] [place] [address] Jul, [facility] [address] [id number], [place] [address] Jul, [facility] [address] [facility] [id number], [place] [address] Jul, [facility] [address] [facility] [id number], [place] [address] Jul, [facility] [address] [facility] [id number], [place] [address] Jul, [facility] [address] [facility] [id number], [place] [address] Jul, [facility] [address] [facility] [id number], [place] [address] Jun, [facility] [address] [id number], [place] [address] Jun, [facility] [address] [id number], [place] [address] Jun, IMMUNIZATIONS No Known Immunizations SOCIAL HISTORY Never Assessed REASON FOR VISIT Controlled Med Refill 02/22/18 PLAN OF CARE VITAL SIGNS MEDICATIONS Medication [...]
--- OUTSIDE RECORDS SUMMARY | 2018-08-05 03:17 | XMS REPORT ---
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 Role Phone HEATHER FINE Unavailable PROBLEMS Type Condition ICD9-CM Code VNJ28-RI Code Onset Dates Condition Status SNOMED Code Problem Unspecified cirrhosis of liver K74.60 Active 089235453 Problem Lymphocytosis D72.820 Active 15479768 Problem Secondary esophageal varices with bleeding I85.11 Active 28506020 Problem Anxiety F41.9 Active 12018591 Problem Asthma J45.909 Active 503400464 Problem Chronic back pain M54.9 Active 479111359 Problem Dysthymia F34.1 Active 92904493 Problem Thrombocytosis D47.3 Active 3264121 Problem Splenomegaly R16.1 Active 07287197 Problem 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 Active 211448640 Problem History of hepatitis C Z86.19 Active [id number] ALLERGIES No Information ENCOUNTERS Encounter Location Date Diagnosis [place] [id number] [place] [address] 17789- 6243 Mar, [facility] [id number] [place] [address] 94665- 1438 Mar, Anxiety F41.9 [facility] [id number] [place] [address] 27204- 2610 Feb, [facility] [id number] [place] [address] 68015- 7052 Feb, Chronic back pain M54.9 ; Anxiety F41.9 and Dysuria R30.0 [facility] [id number] [place] [address] 19599- 1410 Feb, [facility] [id number] [place] [address] 26394- 8832 Feb, Anxiety F41.9 [facility] [address], [place] [address]- 2865 Jan, [facility] [id number] [place] [address] 61159- 8525 Jan, Chronic back pain M54.9 and Anxiety F41.9 [facility] [id number] [place] [address] 32706- 0356 December, Chronic back pain M54.9 and Anxiety F41.9 [facility] [id number] [place] [address] 78855- 6516 Nov, Chronic back pain M54.9 and Anxiety F41.9 [facility] [id number] [place] [address] 13730- 2653 Oct, Chronic back pain M54.9 and Anxiety F41.9 [facility] [id number] [place] [address] 22239- 9073 Oct, [facility] [id number] [place] [address] 03523- 8340 Sep, Chronic back pain M54.9 ; Anxiety F41.9 ; Pain of left leg M79.605 and Pain in right leg M79.604 [facility] [address] [address]- 3427 Sep, Anxiety F41.9 and Chronic back pain M54.9 [facility] [address], [place] [address]- 7896 Sep, [facility] [id number] [place] [address] 23303- 6907 Aug, Anxiety F41.9 [facility] [id number] [place] [address] 11666- 6396 Jul, Anxiety F41.9 [facility] [id number] [place] [address] 82621- 1412 Jul, [facility] [address] [address]- 3551 Jul, Viral syndrome B34.9 ; Chronic back pain M54.9 and Dysuria R30.0 [facility] [id number] [address]- 7596 Jun, [facility] [id number] [place] [address] 80815- 0808 Jun, Anxiety F41.9 [facility] [id number] [place] [address] 45608 -4681 Jun, Dysuria R30.0 and Acute cystitis without hematuria N30.00 [facility] [id number] [place] [address] 81753- 9618 Jun, [facility] [id number] [place] [address] 42523- 2734 May, Anxiety F41.9 [facility] [id number] [place] [address] 84910- 3695 May, Anxiety F41.9 [facility] [id number] [place] [address] 77042- 2543 Apr, [facility] [id number] [place] [address] 62955- 6043 Apr, Chronic back pain M54.9 and Anxiety F41.9 [facility] [id number] [place] [address] 07357- 6950 Mar, [facility] [id number] [place] [address] 89503- 3672 Mar, [facility] [id number] [place] [address] 84683- 7637 Mar, Well woman exam Z01.419 ; Cervical cancer screening Z12.4 ; Breast cancer screening Z12.31 and Colon cancer screening Z12.11 [facility] [id number] [address]- 6863 Mar, Chronic back pain M54.9 and Anxiety F41.9 [facility] [id number] [place] [address] 38578- 7313 Mar, [facility] [id number] [place] [address] 17309- 7648 Feb, Chronic back pain M54.9 and Anxiety F41.9 [facility] [id number] [place] [address] 06079- 2800 Feb, [facility] [id number] [place] [address] 06015- 8703 Feb, [facility] [id number] [place] [address] 05291- 2077 Jan, Chronic back pain M54.9 and Anxiety F41.9 [facility] [id number] [place] [address] 63973- 7386 Jan, [facility] [id number] [place] [address] 66225- 9590 Jan, [facility] [id number] [place] [address] 00819- 1722 December, Chronic back pain M54.9 and Anxiety F41.9 [facility] [id number] [place] [address] 73285- 9067 Nov, Chronic back pain M54.9 and Anxiety F41.9 [facility] [address], [place] [address]- 8579 Oct, Chronic back pain M54.9 and Anxiety F41.9 [facility] [id number] [place] [address] 96405- 3135 Oct, Chronic back pain M54.9 [facility] [address], [place] [address]- 2654 Sep, Anxiety F41.9 and Chronic back pain M54.9 [facility] [id number] [place] [address] 10674- 3858 Aug, Anxiety F41.9 and Chronic back pain M54.9 [facility] [id number] [place] [address] 73258 2546 Aug, [facility] [id number] [place] [address] 35036- 0616 Jul, Chronic back pain M54.9 and Anxiety F41.9 [facility] [id number] [place] [address] 26225 2546 Jul, Anxiety F41.9 and Chronic back pain M54.9 [facility] [address] [place] [address] Jul, [facility] [id number] [place] [address] 96470- 2322 Jul, Anxiety F41.9 [facility] [id number] [place] [address] 03462 2546 Jul, Anxiety F41.9 and Dysuria R30.0 [facility] [id number] [place] [address] 74982 2543 Jul, Chronic back pain M54.9 and Anxiety F41.9 [facility] [id number] [place] [address] 48633 2543 Jun, Chronic back pain M54.9 [facility] [id number] [place] [address] 54526 2546 Jun, Chronic back pain M54.9 [facility] [id number] [place] [address] 69215 2546 May, Anxiety F41.9 [facility] [id number] [place] [address] 78699 2546 May, Chronic back pain M54.9 [facility] [id number] [place] [address] 06815- 0759 Apr, [facility] [id number] [place] [address] 28431- 5154 Apr, [facility] [id number] [place] [address] 51173- 9425 Apr, [facility] [id number] [place] [address] 79965- 8842 Apr, Chronic back pain M54.9 [facility] [id number] [place] [address] 11913- 7447 Mar, Chronic back pain M54.9 [facility] [id number] [place] [address] 37816- 1175 Feb, Grief F43.20 [facility] [id number] [place] [address] 09260- 3919 Feb, Chronic back pain M54.9 and Anxiety F41.9 [facility] [id number] [place] [address] 87242- 6388 Feb, Chronic back pain M54.9 [facility] [id number] [place] [address] 69823- 4501 Jan, Chronic back pain M54.9 [facility] [id number] [place] [address] 85850- 7656 December, [facility] [id number] [place] [address] 47556- 2149 December, Grief F43.20 [facility] [id number] [place] [address] 93536- 3137 Nov, [facility] [id number] [place] [address] 32373- 2871 28 Oct, 2015 Cervicalgia M54.2 ; Secondary esophageal varices with bleeding I85.11 and Mouth pain K13.79 [facility] [id number] [place] [address] 06611- 9325 Oct, [facility] [address], [place] [address]- 5659 Oct, [facility] [id number] [place] [address] 33970- 0024 Sep, [facility] [id number] [place] [address] 29722- 0496 Sep, Acute maxillary sinusitis, recurrence not specified J01.00 [facility] [id number] [place] [address] 68641- 1006 Aug, [facility] [id number] [place] [address] 41123- 0564 Aug, [facility] [id number] [place] [address] 57200- 7408 Aug, Dysuria R30.0 and Chronic back pain M54.9 [facility] [id number] [place] [address] 88016- 7373 Jul, [facility] [id number] [place] [address] 17961- 9316 Jul, [facility] [id number] [place] [address] 68488- 3493 Jul, [facility] [id number] [place] [address] 15176- 9102 Jul, Chronic back pain M54.9 [facility] [id number] [place] [address] 68824- 4670 Jul, Dysthymia F34.1 and Chronic back pain M54.9 [facility] [id number] [place] [address] 64679- 8528 Jun, [facility] [id number] [place] [address] 552506- 1013 Jun, [facility] [id number] [place] [address] 45025- 1919 May, [facility] [address] [facility] [id number] [address]- 0499 15 May, 2015 [facility] [address] [facility] [id number] [place] [address]- 6436 May, [facility] [address] [facility] [id number] [place] [address]- 9283 07 May, 2015 Encounter for immunization Z23 [facility] [address] [facility] [id number] [place] [address], [place] [address]- 1764 15 Apr, 2015 [facility] [address] [facility] [id number] [place] [address]- 5448 10 Apr, 2015 [facility] [id number] [place] [address] 67236- 6738 Mar, [facility] [address] [place] [address]- 7167 Mar, Back pain 724.5 [facility] [id number] [address]- 1005 Mar, Cough 786.2 and Back pain 724.5 [facility] [address] [place] [address]- 8343 Mar, [facility] [id number] [address]- 0852 Mar, [facility] [address], [place] [address]- 5592 December, [facility] [address] [facility] [id number], [place] [address]- 8026 December, [facility] [address] [facility] [id number], [place] [address]- 3513 14 Nov, 2014 [facility] [address] [facility] [id number], [place] [address]- 8770 Nov, [facility] [id number] [address]- 0897 Oct, [facility] [place] [facility] [address] [id number] [place] [address]- 6678 Oct, [facility] [place] [facility] [address] [id number] [place] [address]- 8992 Sep, [facility] [place] [facility] [address] [id number] [place] [address]- 9797 Sep, [facility] [place] [facility] [address] [id number] [place] [address]- 9693 Sep, [facility] [place] [facility] [address] [id number] [place] [address]- 1535 Sep, [facility] [place] [facility] [address] [id number] [place] [address]- 5497 Sep, [facility] [place] [facility] [address] [id number] [place] [address]- 7534 Sep, [facility] [place] [facility] [address] [id number] [place] [address]- 8120 Sep, [facility] [place] [facility] [address] [id number] [place] [address]- 9364 Sep, [facility] [place] [facility] [address] [id number] [place] [address]- 6325 Aug, [facility] [place] [facility] [address] [id number] [place] [address]- 7222 Aug, [facility] [place] [facility] [address] [id number] [place] [address]- 8877 Aug, [facility] [place] [facility] [address] [id number] [place] [address]- 3295 Aug, [facility] [place] [facility] [address] [id number] [place] [address]- 8151 Aug, [facility] [place] [facility] [address] [id number] [place] [address]- 4800 Aug, [facility] [place] [facility] [address] [id number] [place] [address]- 9058 Aug, [facility] [place] [facility] [address] [id number] [place] [address]- 6646 Jul, [facility] [place] [facility] [address] [id number] [place] [address]- 8420 Jul, [facility] [place] [facility] [address] [id number] [place] [address]- 3732 Jul, [facility] [place] [facility] [address] [id number] [place] [address]- 9707 Jul, [facility] [place] [facility] [address] [id number] [place] [address]- 8065 Jul, [facility] [place] [facility] [address] [id number] [place] [address]- 1634 Jul, [facility] [place] [facility] [address] [id number] [place] [address]- 0207 Jul, [facility] [place] [facility] [address] [id number] [place] [address]- 5759 Jul, [facility] [place] [facility] [address] [id number] [place] [address]- 4122 Jun, [facility] [place] [facility] [address] [id number] [place] [address]- 1238 Jun, [facility] [place] [facility] [address] [id number] [place] [address]- 0805 Jun, [facility] [place] [facility] [address] [id number] [place] [address]- 4750 Jun, [facility] [place] [facility] [address] [id number] [place] [address]- 4996 Jun, [facility] [place] [facility] [address] [id number] [place] [address]- 2454 Jun, [facility] [place] [facility] [address] [id number] [place] [address]- 6471 Jun, [facility] [place] [facility] [address] [id number] [place] [address]- 3618 May, [facility] [place] [facility] [address] [id number] [place] [address]- 2003 May, [facility] [place] [facility] [address] [id number] [place] [address]- 3931 May, [facility] [place] [facility] [address] [id number] [place] [address]- 2760 May, [facility] [place] [facility] [address] [id number] [place] [address]- 0079 May, [facility] [place] [facility] [address] [id number] [place] [address]- 9799 May, [facility] [place] [facility] [address] [id number] [place] [address]- 4986 May, [facility] [place] [facility] [address] [id number] [place] [address]- 0765 May, [facility] [place] [facility] [address] [id number] [place] [address]- 3278 May, [facility] [place] [facility] [address] [id number] [place] [address]- 1970 May, [facility] [place] [facility] [address] [id number] [place] [address]- 9110 May, [facility] [place] [facility] [address] [id number] [place] [address]- 0735 10 May, 2014 [facility] [place] [facility] [address] [id number] [place] [address]- 7944 May, [facility] [place] [facility] [address] [id number] [place] [address]- 6898 May, [facility] [place] [facility] [address] [id number] [place] 8550 Apr, [facility] [place] [facility] [address] [id number] [place] [address]- 8704 Apr, [facility] [place] [facility] [address] [id number] [place] [address]- 4536 Apr, [facility] [place] [facility] [address] [id number] [place] [address]- 7746 Apr, [facility] [place] [facility] [address] [id number] [place] [address]- 8731 Apr, [facility] [place] [facility] [address] [id number] [place] [address]- 0774 Apr, [facility] [place] [facility] [address] [id number] [place] [address]- 3754 Apr, [facility] [place] [facility] [address] [id number] [place] [address]- 3624 Mar, [facility] [place] [facility] [address] [id number] [place] [address]- 9165 Mar, [facility] [place] [facility] [address] [id number] [place] [address]- 4329 Mar, [facility] [place] [facility] [address] [id number] [place] [address]- 2935 Mar, [facility] [place] [facility] [address] [id number] [place] [address] Mar, [facility] [place] [facility] [address] [id number] [place] [address] Mar, [facility] [place] [facility] [address] [id number] [place] [address] Feb, [facility] [place] [facility] [address] [id number] [place] [address] Feb, [facility] [place] [facility] [address] [id number] [place] [address] Feb, [facility] [place] [facility] [address] [id number] [place] [address] Feb, [facility] [place] [facility] [address] [id number] [place] [address] Feb, [facility] [address] [id number] [place] [address] Feb, [facility] [place] [facility] [address] [id number] [place] [address] Feb, [facility] [address] [id number] [place] [address] Feb, [facility] [address] [id number] [place] [address] Jan, [facility] [address] [id number] [place] [address] Jan, [facility] [address] [id number] [place] [address] December, [facility] [address] [id number] [place] [address]- [address] December, [facility] [address] [id number] [place] [address]- [address] December, [facility] [address] [id number] [place] [address]- [address] December, [facility] [address] [id number] [place] [address] December, [facility] [place] [facility] [address] [id number] [place] [address] December, [facility] [address] [id number] [place] [address] December, [facility] [place] [facility] [address] [id number] [place] [address] December, [facility] [place] [facility] [address] [id number] [place] [address] December, [facility] [place] [place] [facility] [address] [id number] [place] [id number] [address] December, [facility] [place] [facility] [address] [id number] [place] [address] December, [facility] [place] [facility] [address] [id number] [place] [address]- [address] December, [facility] [place] [facility] [address] [id number] [place] [address]- [address] Nov, [facility] [place] [facility] [address] [id number] [place] [address] Nov, [facility] [place] [facility] [address] [id number] [place] [address]- [address]97 Nov, [facility] [place] [facility] [address] [id number] [place] [address] Nov, [facility] [place] [facility] [address] [id number] [place] [address]- [address] Nov, [facility] [place] [facility] [address] [id number] [place] [address]- [address]199 Nov, [facility] [place] [facility] [address] [id number] [place] [address]- [address] Nov, [facility] [place] [facility] [address] [id number] [place] [address] Nov, [facility] [place] [facility] [address] [id number] [place] [address]- [address] Nov, [facility] [place] [facility] [address] [id number] [place] [address]- [address] Nov, [facility] [place] [facility] [address] [id number] [place] [address]- [address]33 Nov, [facility] [place] [facility] [address] [id number] [place] [address]- [address] Nov, [facility] [place] [facility] [address] [id number] [place] [address]992 Nov, [facility] [place] [facility] [address] [id number] [place] [address] Oct, [facility] [place] [facility] [address] [id number] [place] [address]- [address] Oct, [facility] [place] [facility] [address] [id number] [place] [address]- [address] Sep, [facility] [place] [facility] [address] [id number] [place] [address]- [address]34 Sep, [facility] [place] [facility] [address] [id number] [place] [address]- [address] Sep, [facility] [place] [facility] [address] [id number] [place] [address]- [address] Sep, [facility] [place] [facility] [address] [id number] [place] [address]- [address]121 Sep, [facility] [place] [facility] [address] [id number] [place] [address]- [address]79 Sep, [facility] [place] [facility] [address] [id number] [place] [address]- [address] Sep, [facility] [place] [facility] [address] [id number] [place] [address]- [address] Sep, [facility] [place] [facility] [address] [facility] [id number] [place] [address]- [address] Sep, [facility] [place] [facility] [address] [id number] [place] [address]- [address] Sep, [facility] [place] [facility] [address] [id number] [place] [address]- [address]44 Sep, [facility] [place] [facility] [address] [id number] [place] [address]- [address] Sep, [facility] [place] [facility] [address] [address] [id number] [place] [address] Aug, [facility] [place] [facility] [address] [id number] [place] [address]54 Aug, [facility] [place] [facility] [address] [id number] [place] [address] 4747 Aug, [facility] [place] [facility] [address] [id number] [place] [address] 6314 Aug, [facility] [place] [facility] [address] [id number] [place] [address] 4066 Aug, [facility] [place] [facility] [address] [id number] [place] [address] 2109 Aug, [facility] [place] [facility] [address] [id number] [place] [address] 0805 Aug, [facility] [place] [facility] [address] [id number] [place] [address] 5457 Aug, [facility] [place] [facility] [address] [id number] [place] [address] 1760 Aug, [facility] [place] [facility] [address] [id number], [place] [address] Aug, [facility] [place] [facility] [address] [id number] [place] [address]- 1069 Aug, [facility] [place] [facility] [address] [id number] [place] [address] 8279 Aug, [facility] [place] [facility] [address] [id number], [place] [address]87 Aug, [facility] [place] [facility] [address] [id number], [place] [address] 8590 Aug, [facility] [place] [facility] [address] [id number] [place] [address]- 7122 Aug, [facility] [place] [facility] [address] [id number], [place] [address] 20[address] Aug, [facility] [place] [facility] [address] [id number] [place] [address]- 4813 Aug, [facility] [place] [facility] [address] [id number] [place] [address]- 3098 Aug, [facility] [address] [id number] [place] [address] 8213 Aug, [facility] [place] [facility] [address] [id number] [place] [address] 6259 Aug, [facility] [address] [id number] [place] [address]- 4334 Aug, [facility] [address] [id number] [place] [address]- 9842 Aug, [facility] [address] [id number] [place] [address]- 4079 Aug, [facility] [address] [id number] [place] [address]- 5661 Jul, [facility] [address] [id number] [place] [address]- 5923 Jul, [facility] [address] [id number] [place] [address] 1927 Jul, [facility] [place] [facility] [address] [id number] [place] [address]- 6507 Jul, [facility] [address] [id number] [place] [address]- 2785 Jul, [facility] [address] [id number] [place] [address]- 5678 Jul, [facility] [place] [facility] [address] [id number] [place] [address]- 6140 Jun, [facility] [place] [facility] [address] [id number] [place] [address]- 5308 Jun, [facility] [place] [facility] [address] [id number] [place] [address]- 8991 Jun, [facility] [place] [facility] [address] [id number] [place] [address]- 3118 Jun, [facility] [place] [facility] [address] [id number] [place] [address]- 4365 Jun, [facility] [place] [facility] [address] [id number] [place] [address]- 7615 Jun, [facility] [place] [facility] [address] [id number] [place] [address]- 6488 Jun, [facility] [place] [facility] [address] [id number] [place] [address]- 9851 Jun, [facility] [place] [facility] [address] [id number] [place] [address]- 6603 Jun, [facility] [place] [facility] [address] [id number] [place] [address]- 8074 Jun, [facility] [place] [facility] [address] [id number] [place] [address]- 5054 May, [facility] [place] [facility] [address] [id number] [place] [address]- 3203 May, [facility] [place] [facility] [address] [id number] [place] [address]- 1335 May, [facility] [place] [facility] [address] [id number] [place] [address]- 1603 May, [facility] [place] [facility] [address] [id number] [place] [address]- 2453 May, [facility] [place] [facility] [address] [id number], [place] [address]- 5513 May, [facility] [place] [facility] [address] [id number] [place] [address]- 1166 May, [facility] [place] [facility] [address] [id number] [place] [address]- 0978 May, [facility] [place] [facility] [address] [id number] [place] [address]- 1669 May, [facility] [place] [facility] [address] [id number], [place] [address]- 3359 May, [facility] [place] [facility] [address] [id number] [place] [address]- 3999 17 May, 2013 [facility] [place] [facility] [address] [id number] [place] [address] May, [facility] [place] [facility] [address] [id number] [place] [address]- 3204 May, [facility] [place] [facility] [address] [id number] [place] [address]- 2550 May, [facility] [place] [facility] [address] [id number] [place] [address]- 3953 May, [facility] [place] [facility] [address] [id number] [place] [address]- 8132 24 Apr, 2013 [facility] [place] [facility] [address] [id number] [place] [address]- 5867 Apr, [facility] [place] [facility] [address] [id number] [place] [address]- 7000 Apr, [facility] [place] [facility] [address] [id number] [place] [address]- 8682 Mar, [facility] [place] [facility] [address] [id number] [place] [address]- 8099 Mar, [facility] [place] [facility] [address] [id number] [place] [address]- 5356 Mar, [facility] [place] [facility] [address] [id number] [place] [address]- 4844 Mar, [facility] [place] [facility] [address] [id number] [place] [address]- 9028 Mar, [facility] [place] [facility] [address] [id number] [place] [address]- 0915 Mar, [facility] [place] [facility] [address] [id number] [place] [address]- 3985 Feb, [facility] [place] [facility] [address] [id number] [place] [address]- 8528 Feb, [facility] [address] [id number] [place] [address]- 9977 Feb, [facility] [address] [id number] [place] [address]- 0870 Feb, [facility] [address] [id number] [place] [address]- 2433 Feb, [facility] [address] [id number] [place] [address]- 2829 Feb, [facility] [address] [id number] [place] [address]- 3179 Feb, [facility] [address] [id number] [place] [address]- 0566 Feb, [facility] [address] [id number] [place] [address]- 7322 Feb, [facility] [address] [id number] [place] [address]- 7766 Feb, [facility] [address] [id number] [place] [address]- 3569 Jan, [facility] [address] [id number] [place] [address]- 8840 Jan, [facility] [address] [id number] [place] [address]- 9379 Jan, [facility] [address] [id number] [place] [address]- 0452 Jan, [facility] [place] [facility] [address] [id number] [place] [address]- 9699 December, [facility] [place] [facility] [address] [id number] [place] [address]- 1786 December, [facility] [address] [id number] [place] [address]- 3941 December, [facility] [address] [id number] [place] [address]- 8582 Nov, [facility] [place] [facility] [address] [id number] [place] [address]- 2165 Nov, [facility] [place] [facility] [address] [id number] [place] [address]- 3004 Nov, [facility] [place] [facility] [address] [id number] [place] [address]- 1893 Nov, [facility] [address] [id number] [place] [address]- 5253 Nov, [facility] [place] [facility] [address] [id number] [place] [address]- 9910 Nov, [facility] [place] [facility] [address] [id number] [place] [address]- 5762 Oct, [facility] [place] [facility] [address] [id number] [place] [address]- 3101 Oct, [facility] [place] [facility] [address] [id number] [place] [address]- 9274 Oct, [facility] [place] [facility] [address] [id number] [place] [address]- 7151 Sep, [facility] [place] [facility] [address] [id number] [place] [address]- 9141 Sep, [facility] [place] [facility] [address] [id number] [place] [address]- 7717 Sep, [facility] [place] [facility] [address] [id number] [place] [address]- 0149 Aug, [facility] [place] [facility] [address] [id number] [place] [address]- 0671 Aug, [facility] [place] [facility] [address] [id number] [place] [address]- 6579 Aug, [facility] [place] [facility] [address] [id number] [place] [address]- 1197 Aug, [facility] [place] [facility] [address] [id number] [place] [address]- 9266 Jul, [facility] [place] [facility] [address] [id number] [place] 4831 Jul, [facility] [place] [facility] [address] [id number] [place] [address]- 2027 Jul, [facility] [place] [facility] [address] [id number] [place] [address]- 9006 Jul, [facility] [place] [facility] [address] [id number] [place]18 Jun, [facility] [place] [facility] [address] [id number] [place] [address]- 7752 Jun, [facility] [place] [facility] [address] [facility] [id number] [place] [address]- 2148 Jun, [facility] [place] [facility] [address] [id number] [place] [address]- 6601 Jun, [facility] [place] [facility] [address] [facility] [id number] [place] [address]- 1887 Jun, [facility] [place] [facility] [address] [facility] [id number] [place] [address]- 5294 Jun, [facility] [place] [facility] [address] [facility] [id number] [place] [address]- 2008 Jun, [facility] [place] [facility] [address] [facility] [id number], [place] [address]- 9086 Jun, [facility] [place] [facility] [address] [id number] [place] [address]- 3228 May, [facility] [place] [facility] [address] [facility] [id number] [place] [address]- 7546 May, [facility] [place] [facility] [address] [facility] [id number], [place] [address]- 4836 May, [facility] [place] [facility] [address] [id number] [place] [address]- 3318 18 May, 2012 [facility] [place] [facility] [address] [id number] [place] [address]- 6543 2012 [facility] [place] [facility] [address] [id number] [place] [address]- 7061 13 May, 2012 [facility] [place] [facility] [address] [id number] [place] [address], [place] [address]- 9421 11 May, 2012 [facility] [place] [facility] [address] [id number] [place] [address]- 5152 11 May, 2012 [facility] [place] [facility] [address] [id number] [place] [address]- 0112 10 May, 2012 [facility] [place] [facility] [address] [id number] [place] [address]- 4120 08 May, 2012 [facility] [place] [facility] [address] [id number] [place] [address]- 5269 24 Apr, 2012 [facility] [place] [facility] [address] [id number] [place] [address]- 2090 19 Apr, 2012 [facility] [place] [facility] [address] [id number] [place] [address]- 5563 18 Apr, 2012 [facility] [place] [facility] [address] [id number] [place] [address]- 1457 17 Apr, 2012 [facility] [place] [facility] [address] [id number] [place] [address]- 3863 16 Apr, 2012 [facility] [place] [facility] [address] [id number] [place] [address]- 6232 10 Apr, 2012 [facility] [place] [facility] [address] [id number] [place] [address]- 5305 29 Mar, 2012 [facility] [place] [facility] [address] [id number] [place] [address]- 8923 27 Mar, 2012 [facility] [place] [facility] [address] [id number] [place] [address]- 2546 Mar, [facility] [place] [facility] [address] [id number] [place] [address]- 9290 Mar, [facility] [place] [facility] [address] [id number] [place] [address]- 8276 Mar, [facility] [place] [facility] [address] [id number] [place] [address]- 0676 Mar, [facility] [place] [facility] [address] [id number] [place] [address]- 5524 Feb, [facility] [place] [facility] [address] [id number] [place] [address]- 0770 Feb, [facility] [place] [facility] [address] [id number] [place] [address]- 9680 Feb, [facility] [place] [facility] [address] [id number] [place] [address]- 5199 Feb, [facility] [place] [facility] [address] [id number] [place] [address]- 0651 Feb, [facility] [place] [facility] [address] [id number] [place] [address]- 5572 Feb, [facility] [place] [facility] [address] [id number] [place] [address]- 2262 Feb, [facility] [place] [facility] [address] [id number] [place] [address]- 6836 Feb, [facility] [place] [facility] [address] [id number] [place] [address]- 1670 Feb, [facility] [place] [facility] [address] [id number] [place] [address]- 6503 Jan, [facility] [place] [facility] [address] [id number] [place] [address]- 1530 Jan, [facility] [place] [facility] [address] [id number] [place] [address]- 2734 Jan, [facility] [place] [facility] [address] [id number] [place] [address]- 1148 Jan, [facility] [address] [id number] [place] [address]- 0681 Jan, [facility] [address] [id number] [place] [address]- 3540 Jan, [facility] [address] [id number] [place] [address]- 9297 Jan, [facility] [address] [id number] [place] [address]- 3437 Jan, [facility] [address] [id number] [place] [address]- 2797 Jan, [facility] [address] [id number] [place] [address]- 5173 December, [facility] [address] [id number] [place] [address]- 8971 December, [facility] [address] [id number] [place] [address]- 0270 December, [facility] [address] [id number] [place] [address]- 2094 December, [facility] [address] [id number] [place] [address]- 4941 December, [facility] [address] [id number] [place] [address]- 7864 December, [facility] [address] [id number] [place] [address]- 5670 December, [facility] [place] [place] [facility] [address] [id number] [place] [address]- 9235 December, [facility] [address] [id number] [place] [address]- 6846 December, [facility] [address] [id number] [place] 0779 December, [facility] [address] [id number] [place] [address]- 4149 30 Nov, 2011 [facility] [place] [facility] [address] [id number] [place] [address]- 9372 Nov, [facility] [place] [facility] [address] [id number] [place] [address]- 7115 Nov, [facility] [place] [facility] [address] [id number] [place] [address]- 0448 Nov, [facility] [place] [facility] [address] [id number] [place] [address]- 7113 16 Nov, 2011 [facility] [place] [facility] [address] [id number] [place] [address]- 0661 Nov, [facility] [place] [facility] [address] [id number] [place] [address]- 5373 Nov, [facility] [place] [facility] [address] [id number] [place] [address]- 7479 Nov, [facility] [place] [facility] [address] [id number] [place] [address]- 9554 Nov, [facility] [place] [facility] [address] [id number] [place] [address]- 0856 Nov, [facility] [place] [facility] [address] [id number] [place] [address]- 1713 Oct, [facility] [place] [facility] [address] [id number] [place] [address]- 4851 Oct, [facility] [place] [facility] [address] [id number] [place] [address]- 0113 Oct, [facility] [place] [facility] [address] [id number] [place] [address]- 6914 Oct, [facility] [place] [facility] [address] [id number] [place] [address]- 7321 Oct, [facility] [place] [facility] [address] [id number], [place] [address]- 3658 20 Oct, 2011 [facility] [address] [id number] [place] [address]- 8336 19 Oct, 2011 [facility] [place] [facility] [address] [id number] [place] [address]- 3446 19 Oct, 2011 [facility] [place] [facility] [address] [facility] [id number] [place] [address]- 0536 16 Oct, 2011 [facility] [place] [facility] [address] [id number] [place] [address]- 8938 14 Oct, 2011 [facility] [place] [facility] [address] [id number] [place] [address]- 9625 14 Oct, 2011 [facility] [place] [facility] [address] [facility] [id number] [place] [address]- 2672 09 Oct, 2011 [facility] [address] [id number] [place] [address]- 2969 08 Oct, 2011 [facility] [place] [facility] [address] [facility] [id number] [place] [address]- 5326 06 Oct, 2011 [facility] [place] [facility] [address] [id number] [place] [address]- 6561 02 Oct, 2011 [facility] [place] [facility] [address] [id number] [place] [address]- 3783 28 Sep, 2011 [facility] [place] [facility] [address] [id number] [place] [address]- 9226 24 Sep, 2011 [facility] [place] [facility] [address] [facility] [id number] [place] [address] 20 Sep, 2011 [facility] [place] [facility] [address] [id number] [place] [address]66 17 Sep, 2011 [facility] [place] [facility] [address] [facility] [id number] [place] [address] 6726 16 Sep, 2011 [facility] [place] [facility] [address] [facility] [id number] [place] [address]- 1015 14 Sep, 2011 [facility] [place] [facility] [address] [id number] [place] [address] 8276 13 Sep, 2011 [facility] [place] [facility] [address] [id number] [place] [address] 5366 10 Sep, 2011 [facility] [place] [facility] [address] [id number] [place] [address] 9525 06 Sep, 2011 [facility] [place] [facility] [address] [id number] [place] [address]344 03 Sep, 2011 [facility] [place] [facility] [address] [id number] [place] [address] Sep, [facility] [place] [facility] [address] [id number] [place] [address] 9752 30 Aug, 2011 [facility] [place] [facility] [address] [id number] [place] [address] Aug, [facility] [place] [facility] [address] [id number] [place] [address] 7499 27 Aug, 2011 [facility] [place] [facility] [address] [id number] [place] [address] 5701 24 Aug, 2011 [facility] [place] [facility] [address] [id number] [place] [address]- 1584 Aug, [facility] [place] [facility] [address] [id number] [place] [address] 0822 17 Aug, 2011 [facility] [place] [facility] [address] [id number], [place] [address] 17 Aug, 2011 [facility] [place] [facility] [address] [id number] [place] [address]- 1402 17 Aug, 2011 [facility] [place] [facility] [address] [id number] [place] [address]- 6419 16 Aug, 2011 [facility] [place] [facility] [address] [id number] [place] [address]- 7053 13 Aug, 2011 [facility] [place] [facility] [address] [id number] [place] [address]- 7308 11 Aug, 2011 [facility] [address] [id number] [place] [address] 2796 Aug, [facility] [address] [id number] [place] [address] 1586 Aug, [facility] [address] [id number] [place] [address] 5086 Aug, [facility] [address] [id number] [place] [address]- 8532 Aug, [facility] [address] [id number] [place] [address] 3314 Aug, [facility] [address] [id number] [place] [address] Aug, [facility] [address] [id number] [place] [address] 0387 30 Jul, 2011 [facility] [address] [id number] [place] [address]- 2743 28 Jul, 2011 [facility] [address] [id number] [place] [address]- 8848 27 Jul, 2011 [facility] [address] [id number] [place] [address] 8328 23 Jul, 2011 [facility] [address] [id number] [place] [address]- 5486 19 Jul, 2011 [facility] [place] [facility] [address] [id number] [place] [address] 2544 19 Jul, 2011 [facility] [place] [facility] [address] [id number] [place] [address]- 3570 17 Jul, 2011 [facility] [place] [facility] [address] [id number] [place] [address]- 1566 16 Jul, 2011 [facility] [address] [id number] [place] [address]- 7969 07 Jul, 2011 [facility] [address] [facility] [id number], [place] [address] Jul, [facility] [address] [facility] [id number], [place] [address] Jul, [facility] [address] [facility] [id number], [place] [address] Jun, [facility] [address] [facility] [id number], [place] [address] Jun, [facility] [address] [facility] [id number], [place] [address] Jun, IMMUNIZATIONS No Known Immunizations SOCIAL HISTORY Never Assessed REASON FOR VISIT Repository Medication PLAN OF CARE VITAL SIGNS MEDICATIONS Medication Instructions Dosage Frequency Start Date End Date Duration Status Aldactone 50 MG Orally Once a day 1 tablet 24h 180 days Active Nadolol 20 MG Orally Once a day 1 tablet 24h 90 days Active Folic Acid 1 MG Orally Once a day 1 tablet 24h 90 days Active Aciphex 20 mg Orally Once a day [...]
--- OUTSIDE RECORDS SUMMARY | 2018-08-05 03:18 | XMS REPORT ---
Author Author HEATHER FINE Organization [facility] Address [address] [place] [address] Care Team Providers Care Motor Equipment Commanding Officer Name Role Phone HEATHER FINE Unavailable PROBLEMS Type Condition ICD9-CM Code [id number] Code Onset Dates Condition Status SNOMED Code Problem Unspecified cirrhosis of liver K74.60 Active 371180849 Problem Lymphocytosis D72.820 Active 36488486 Problem Secondary esophageal varices with bleeding I85.11 Active 49342916 Problem Anxiety F41.9 Active 57846948 Problem Asthma J45.909 Active 544595742 Problem Chronic back pain M54.9 Active 008417864 Problem Dysthymia F34.1 Active 59430658 Problem Thrombocytosis D47.3 Active 1840047 Problem Splenomegaly R16.1 Active 79787493 Problem 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 Active 354116272 Problem History of hepatitis C Z86.19 Active [id number] ALLERGIES No Information ENCOUNTERS Encounter Location Date Diagnosis [place] [id number] [place] [address] 35740- 6290 Mar, [facility] [id number] [place] [address] 85295- 6887 Mar, Anxiety F41.9 [facility] [id number] [place] [address] 12372- 6155 Feb, [facility] [id number] [place] [address] 69716- 7364 Feb, Chronic back pain M54.9 ; Anxiety F41.9 and Dysuria R30.0 [facility] [id number] [place] [address] 94256- 3316 Feb, [facility] [id number] [place] [address] 13392- 8598 Feb, Anxiety F41.9 [facility] [address], [place] [address] 2297 Jan, [facility] [id number] [place] [address] 80403- 9667 Jan, Chronic back pain M54.9 and Anxiety F41.9 [facility] [id number] [place] [address] 83163- 0949 December, Chronic back pain M54.9 and Anxiety F41.9 [facility] [id number] [place] [address] 47535- 6176 Nov, Chronic back pain M54.9 and Anxiety F41.9 [facility] [id number] [place] [address] 87511- 3800 Oct, Chronic back pain M54.9 and Anxiety F41.9 [facility] [id number] [place] [address] 64849- 0330 Oct, [facility] [id number] [place] [address] 66771- 7550 Sep, Chronic back pain M54.9 ; Anxiety F41.9 ; Pain of left leg M79.605 and Pain in right leg M79.604 [facility] [address] [address]- 2751 Sep, Anxiety F41.9 and Chronic back pain M54.9 [facility] [address] [address]- 1292 Sep, [facility] [id number] [place] [address] 50231- 4803 Aug, Anxiety F41.9 [facility] [id number] [place] [address] 94475- 7605 Jul, Anxiety F41.9 [facility] [id number] [place] [address] 42787- 1852 Jul, [facility] [address] [address]- 3284 Jul, Viral syndrome B34.9 ; Chronic back pain M54.9 and Dysuria R30.0 [facility] [id number] [address]- 9346 Jun, [facility] [id number] [place] [address] 61506- 2260 Jun, Anxiety F41.9 [facility] [id number] [place] [address] 17726 -6014 Jun, Dysuria R30.0 and Acute cystitis without hematuria N30.00 [facility] [id number] [place] [address] 88146- 4772 Jun, [facility] [id number] [place] [address] 48847- 2413 May, Anxiety F41.9 [facility] [id number] [place] [address] 44883- 1106 May, Anxiety F41.9 [facility] [id number] [place] [address] 30226- 2545 Apr, [facility] [id number] [place] [address] 04022- 6061 Apr, Chronic back pain M54.9 and Anxiety F41.9 [facility] [address] [place] [address] 96095- 0240 Mar, [facility] [address] [place] [address] 79884- 6081 Mar, [facility] [address] [id number] [place] [address] 67937- 5389 Mar, Well woman exam Z01.419 ; Cervical cancer screening Z12.4 ; Breast cancer screening Z12.31 and Colon cancer screening Z12.11 [facility] [id number] [address]- 1805 Mar, Chronic back pain M54.9 and Anxiety F41.9 [facility] [id number] [place] [address] 24726- 6150 Mar, [facility] [id number] [place] [address] 84543- 8328 Feb, Chronic back pain M54.9 and Anxiety F41.9 [facility] [id number] [place] [address] 47994- 1329 Feb, [facility] [id number] [place] [address] 96694- 4120 Feb, [facility] [id number] [place] [address] 24716- 3195 Jan, Chronic back pain M54.9 and Anxiety F41.9 [facility] [id number] [place] [address] 32839- 2351 Jan, [facility] [id number] [place] [address] 79983- 1716 Jan, [facility] [id number] [place] [address] 13522- 3920 December, Chronic back pain M54.9 and Anxiety F41.9 [facility] [address] [place] [address] 14017- 9453 Nov, Chronic back pain M54.9 and Anxiety F41.9 [facility] [address] [address]- 5944 Oct, Chronic back pain M54.9 and Anxiety F41.9 [facility] [id number] [place] [address] 03146- 5342 Oct, Chronic back pain M54.9 [facility] [address] [address]- 1436 Sep, Anxiety F41.9 and Chronic back pain M54.9 [facility] [address] [place] [address] 38906- 4132 Aug, Anxiety F41.9 and Chronic back pain M54.9 [facility] [id number] [place] [address] 12752 2546 Aug, [facility] [id number] [place] [address] 46718- 7066 Jul, Chronic back pain M54.9 and Anxiety F41.9 [facility] [id number] [place] [address] 16574 2546 Jul, Anxiety F41.9 and Chronic back pain M54.9 [facility] [address] [place] [address] Jul, [facility] [id number] [place] [address] 08430- 3853 Jul, Anxiety F41.9 [facility] [id number] [place] [address] 64249 2546 Jul, Anxiety F41.9 and Dysuria R30.0 [facility] [id number] [place] [address] 92639 2548 Jul, Chronic back pain M54.9 and Anxiety F41.9 [facility] [id number] [place] [address] 30549 2541 Jun, Chronic back pain M54.9 [facility] [id number] [place] [address] 17861 2546 Jun, Chronic back pain M54.9 [facility] [id number] [place] [address] 77420 2546 May, Anxiety F41.9 [facility] [id number] [place] [address] 21120 2546 May, Chronic back pain M54.9 [facility] [id number] [place] [address] 59151- 3348 Apr, [facility] [address] [place] [address] 48063- 8242 Apr, [facility] [id number] [place] [address] 85402- 7950 Apr, [facility] [id number] [place] [address] 40648- 3376 Apr, Chronic back pain M54.9 [facility] [id number] [place] [address] 43032- 0690 Mar, Chronic back pain M54.9 [facility] [id number] [place] [address] 63628- 9817 Feb, Grief F43.20 [facility] [id number] [place] [address] 55955- 8197 Feb, Chronic back pain M54.9 and Anxiety F41.9 [facility] [id number] [place] [address] 73257- 2317 Feb, Chronic back pain M54.9 [facility] [id number] [place] [address] 44960- 6088 Jan, Chronic back pain M54.9 [facility] [id number] [place] [address] 88824- 0956 December, [facility] [id number] [place] [address] 06049- 3003 December, Grief F43.20 [facility] [id number] [place] [address] 73651- 1277 Nov, [facility] [id number] [place] [address] 38841- 1754 28 Oct, 2015 Cervicalgia M54.2 ; Secondary esophageal varices with bleeding I85.11 and Mouth pain K13.79 [facility] [id number] [place] [address] 48318- 2374 Oct, [facility] [address] [address]- 3939 Oct, [facility] [id number] [place] [address] 69989- 3435 Sep, [facility] [id number] [place] [address] 47269- 2666 Sep, Acute maxillary sinusitis, recurrence not specified J01.00 [facility] [id number] [place] [address] 59598- 1182 Aug, [facility] [id number] [place] [address] 34294- 3307 Aug, [facility] [id number] [place] [address] 17824- 8419 Aug, Dysuria R30.0 and Chronic back pain M54.9 [facility] [id number] [place] [address] 08192- 5031 Jul, [facility] [id number] [place] [address] 51823- 1135 Jul, [facility] [id number] [place] [address] 45349- 9676 Jul, [facility] [id number] [place] [address] 40762- 2922 Jul, Chronic back pain M54.9 [facility] [id number] [place] [address] 12316- 3466 Jul, Dysthymia F34.1 and Chronic back pain M54.9 [facility] [id number] [place] [address] 07227- 9107 Jun, [facility] [id number] [place] [address] 636049- 4287 Jun, [facility] [id number] [place] [address] 90769- 6628 May, [facility] [address] [facility] [id number] [address]- 3016 15 May, 2015 [facility] [address] [facility] [id number] [place] [address]- 3768 May, [facility] [address] [facility] [id number] [place] [address]- 4894 07 May, 2015 Encounter for immunization Z23 [facility] [address] [facility] [id number] [place] [address], [place] [address]- 3563 15 Apr, 2015 [facility] [address] [facility] [id number] [place] [address]- 8047 10 Apr, 2015 [facility] [id number] [place] [address] 00066- 2037 Mar, [facility] [address] [place] [address]- 9883 Mar, Back pain 724.5 [facility] [id number] [address]- 4059 Mar, Cough 786.2 and Back pain 724.5 [facility] [address] [place] [address]- 6111 Mar, [facility] [id number] [address]- 8467 Mar, [facility] [address] [address]- 7986 December, [facility] [address] [facility] [id number] [address]- 1775 December, [facility] [address] [facility] [id number] [address]- 1438 14 Nov, 2014 [facility] [address] [facility] [id number] [address]- 2301 Nov, [facility] [id number] [address]- 1646 Oct, [facility] [place] [facility] [address] [id number] [place] [address]- 4505 Oct, [facility] [place] [facility] [address] [id number] [place] [address]- 7552 Sep, [facility] [place] [facility] [address] [id number] [place] [address]- 2100 Sep, [facility] [place] [facility] [address] [id number] [place] [address]- 6796 Sep, [facility] [place] [facility] [address] [id number] [place] [address]- 2643 Sep, [facility] [place] [facility] [address] [id number] [place] [address]- 3803 Sep, [facility] [place] [facility] [address] [id number] [place] [address]- 3631 Sep, [facility] [place] [facility] [address] [id number] [place] [address]- 0025 Sep, [facility] [place] [facility] [address] [id number] [place] [address]- 1690 Sep, [facility] [place] [facility] [address] [id number] [place] [address]- 7999 Aug, [facility] [place] [facility] [address] [id number] [place] [address]- 3428 Aug, [facility] [place] [facility] [address] [id number] [place] [address]- 9461 Aug, [facility] [place] [facility] [address] [id number] [place] [address]- 9177 Aug, [facility] [place] [facility] [address] [id number] [place] [address]- 8028 Aug, [facility] [place] [facility] [address] [id number] [place] [address]- 3383 Aug, [facility] [place] [facility] [address] [id number] [place] [address]- 7070 Aug, [facility] [place] [facility] [address] [id number] [place] [address]- 8465 Jul, [facility] [place] [facility] [address] [id number] [place] [address]- 9525 Jul, [facility] [place] [facility] [address] [id number] [place] [address]- 8460 Jul, [facility] [place] [facility] [address] [id number] [place] [address]- 2470 Jul, [facility] [place] [facility] [address] [id number] [place] [address]- 3165 Jul, [facility] [place] [facility] [address] [id number] [place] [address]- 3806 Jul, [facility] [place] [facility] [address] [id number] [place] [address]- 7121 Jul, [facility] [place] [facility] [address] [id number] [place] [address]- 7568 Jul, [facility] [place] [facility] [address] [id number] [place] [address]- 5014 Jun, [facility] [place] [facility] [address] [id number] [place] [address]- 8142 Jun, [facility] [place] [facility] [address] [id number] [place] [address]- 9537 Jun, [facility] [place] [facility] [address] [id number] [place] [address]- 6239 Jun, [facility] [place] [facility] [address] [id number] [place] [address]- 7022 Jun, [facility] [place] [facility] [address] [id number] [place] [address]- 1636 Jun, [facility] [place] [facility] [address] [id number] [place] [address]- 1218 Jun, [facility] [place] [facility] [address] [id number] [place] [address]- 1062 May, [facility] [place] [facility] [address] [id number] [place] [address]- 2383 May, [facility] [place] [facility] [address] [id number] [place] [address]- 4971 May, [facility] [place] [facility] [address] [id number] [place] [address]- 0054 May, [facility] [place] [facility] [address] [id number] [place] [address] May, [facility] [place] [facility] [address] [id number] [place] [address] May, [facility] [place] [facility] [address] [id number] [place] [address] May, [facility] [place] [facility] [address] [id number] [place] [address] May, [facility] [place] [facility] [address] [id number] [place] [address] May, [facility] [place] [facility] [address] [id number] [place] [address] May, [facility] [place] [facility] [address] [id number] [place] [address] May, [facility] [place] [facility] [address] [id number] [place] [address] 10 May, 2014 [facility] [place] [facility] [address] [id number] [place] [address] May, [facility] [place] [facility] [address] [id number] [place] [address] May, [facility] [place] [facility] [address] [id number] [place] [address] Apr, [facility] [place] [facility] [address] [id number] [place] [address] Apr, [facility] [place] [facility] [address] [id number] [place] [address] Apr, [facility] [place] [facility] [address] [id number] [place] [address] Apr, [facility] [place] [facility] [address] [id number] [place] [address] Apr, [facility] [place] [facility] [address] [id number] [place] [address] Apr, [facility] [place] [facility] [address] [id number] [place] [address]- [address] Apr, [facility] [place] [facility] [address] [id number] [place] [address] Mar, [facility] [place] [facility] [address] [id number] [place] [address] Mar, [facility] [place] [facility] [address] [id number] [place] [address] Mar, [facility] [place] [facility] [address] [id number] [place] [address] Mar, [facility] [place] [facility] [address] [id number] [place] [address] Mar, [facility] [place] [facility] [address] [id number] [place] [address] Mar, [facility] [place] [facility] [address] [id number] [place] [address] Feb, [facility] [place] [facility] [address] [id number] [place] [address]57 Feb, [facility] [place] [facility] [address] [id number] [place] [address] 8634 Feb, [facility] [place] [facility] [address] [id number] [place] [address] Feb, [facility] [place] [facility] [address] [id number] [place] [address] 79[address] Feb, [facility] [address] [id number] [place] [address] Feb, [facility] [place] [facility] [address] [id number] [place] [address] Feb, [facility] [address] [id number] [place] [address] Feb, [facility] [address] [id number] [place] [address] Jan, [facility] [address] [id number] [place] [address] Jan, [facility] [address] [id number] [place] [address] December, [facility] [address] [id number] [place] [address] December, [facility] [address] [id number] [place] [address]- 24[address] December, [facility] [address] [id number] [place] [address]- 365[address] December, [facility] [address] [id number] [place] [address]- 9627 December, [facility] [place] [facility] [address] [id number] [place] [address]- [address] December, [facility] [address] [id number] [place] [address] December, [facility] [place] [facility] [address] [id number] [place] [address]- [address] December, [facility] [place] [facility] [address] [id number] [place] [address]- 37[address] December, [facility] [place] [facility] [address] [id number] [id number] [address] December, [facility] [place] [facility] [address] [id number] [place] [address]- 1446 December, [facility] [place] [facility] [address] [id number] [place] [address]- 6531 December, [facility] [place] [facility] [address] [id number] [place] [address]- [address] Nov, [facility] [place] [facility] [address] [id number] [place] [address]- 47[address] Nov, [facility] [place] [facility] [address] [id number] [place] [address]- [address] Nov, [facility] [place] [facility] [address] [id number] [place] [address] Nov, [facility] [place] [facility] [address] [id number] [place] [address]- [address] Nov, [facility] [place] [facility] [address] [id number] [place] [address]- 2569 Nov, [facility] [place] [facility] [address] [id number] [place] [address] Nov, [facility] [place] [facility] [address] [id number] [place] [address]- 2835 Nov, [facility] [place] [facility] [address] [id number] [place] [address]- 8589 Nov, [facility] [place] [facility] [address] [id number] [place] [address]- 0[address] Nov, [facility] [place] [facility] [address] [id number] [place] [address]- 67[address] Nov, [facility] [place] [facility] [address] [id number] [place] [address] 8[address] Nov, [facility] [place] [facility] [address] [id number] [place] [address]- [address] Nov, [facility] [place] [facility] [address] [id number] [place] [address] Oct, [facility] [place] [facility] [address] [id number] [place] [address]605 Oct, [facility] [place] [facility] [address] [id number] [place] [address] Sep, [facility] [place] [facility] [address] [id number] [place] [address] 2596 Sep, [facility] [place] [facility] [address] [id number] [place] [address] 8329 Sep, [facility] [place] [facility] [address] [id number] [place] [address] 6238 Sep, [facility] [place] [facility] [address] [id number] [place] [address] 1532 Sep, [facility] [place] [facility] [address] [id number] [place] [address]- 6284 Sep, [facility] [place] [facility] [address] [id number] [place] [address]- 4926 Sep, [facility] [place] [facility] [address] [id number] [place] [address]- 7389 Sep, [facility] [place] [facility] [address] [facility] [id number] [place] [address]- 8064 Sep, [facility] [place] [facility] [address] [id number] [place] [address] 8714 Sep, [facility] [place] [facility] [address] [id number] [place] [address]- 2547 Sep, [facility] [place] [facility] [address] [id number] [place] [address]- 5166 Sep, [facility] [place] [facility] [address] [id number] [place] [address]- 8369 Aug, [facility] [place] [facility] [address] [id number] [place] [address] 5093 Aug, [facility] [place] [facility] [address] [id number] [place] [address] 4162 Aug, [facility] [place] [facility] [address] [id number] [place] [address]- 4965 Aug, [facility] [place] [facility] [address] [id number] [place] [address]- 5687 Aug, [facility] [place] [facility] [address] [id number] [place] [address]- 9015 Aug, [facility] [place] [facility] [address] [id number] [place] [address]- 7460 Aug, [facility] [place] [facility] [address] [id number] [place] [address]- 9400 Aug, [facility] [place] [facility] [address] [id number] [place] [address]- 4394 Aug, [facility] [place] [facility] [address] [id number], [place] [address] 295[address] Aug, [facility] [place] [facility] [address] [id number] [place] [address]- 9599 Aug, [facility] [place] [facility] [address] [id number] [place] [address]- 0072 Aug, [facility] [place] [facility] [address] [id number] [address]- 2435 Aug, [facility] [place] [facility] [address] [id number], [place] [address] 9788 Aug, [facility] [place] [facility] [address] [id number] [place] [address]- 5877 Aug, [facility] [place] [facility] [address] [id number] [address] 5296 Aug, [facility] [place] [facility] [address] [id number] [place] [address]- 8870 Aug, [facility] [place] [facility] [address] [id number] [place] [address]- 5907 Aug, [facility] [address] [id number] [place] [address]- 6673 Aug, [facility] [place] [facility] [address] [id number] [place] [address]- 5340 Aug, [facility] [address] [id number] [place] [address]- 4797 Aug, [facility] [address] [id number] [place] [address]- 2874 Aug, [facility] [address] [id number] [place] [address]- 4765 Aug, [facility] [address] [id number] [place] [address]- 5377 Jul, [facility] [address] [id number] [place] [address]- 8755 Jul, [facility] [address] [id number] [place] [address]- 1901 Jul, [facility] [place] [facility] [address] [id number] [place] [address]- 8181 Jul, [facility] [address] [id number] [place] [address]- 5135 Jul, [facility] [address] [id number] [place] [address]- 5241 Jul, [facility] [place] [facility] [address] [id number] [place] [address]- 8259 Jun, [facility] [place] [facility] [address] [id number] [place] [address]- 2621 Jun, [facility] [place] [facility] [address] [id number] [place] [address]- 0049 Jun, [facility] [place] [facility] [address] [id number] [place] [address]- 5545 Jun, [facility] [place] [facility] [address] [id number] [place] [address]- 3798 Jun, [facility] [place] [facility] [address] [id number] [place] [address]- 7866 Jun, [facility] [place] [facility] [address] [id number] [place] [address]- 2660 Jun, [facility] [place] [facility] [address] [id number] [place] [address]- 1033 Jun, [facility] [place] [facility] [address] [id number] [place] [address]- 2087 Jun, [facility] [place] [facility] [address] [id number] [place] [address]- 4354 Jun, [facility] [place] [facility] [address] [id number] [place] [address]- 4524 May, [facility] [place] [facility] [address] [id number] [place] [address]- 7822 May, [facility] [place] [facility] [address] [id number] [place] [address]- 4632 May, [facility] [place] [facility] [address] [id number] [place] [address]- 3435 May, [facility] [place] [facility] [address] [id number] [place] [address]- 1184 May, [facility] [place] [facility] [address] [id number], [place] [address]- 0198 May, [facility] [place] [facility] [address] [id number] [place] [address]- 4076 May, [facility] [place] [facility] [address] [id number] [place] [address]- 6453 May, [facility] [place] [facility] [address] [id number] [place] [address]- 3222 May, [facility] [place] [facility] [address] [id number], [place] [address]- 3384 May, [facility] [place] [facility] [address] [id number] [place] [address]- 0709 17 May, 2013 [facility] [place] [facility] [address] [id number] [place] May, [facility] [place] [facility] [address] [id number] [place] [address]- 9628 May, [facility] [place] [facility] [address] [id number] [place] [address]- 9149 May, [facility] [place] [facility] [address] [id number] [place] [address]- 6312 May, [facility] [place] [facility] [address] [id number] [place] [address]- 4663 24 Apr, 2013 [facility] [place] [facility] [address] [id number] [place] [address]- 2603 Apr, [facility] [place] [facility] [address] [id number] [place] [address]- 6050 Apr, [facility] [place] [facility] [address] [id number] [place] [address]- 4702 Mar, [facility] [place] [facility] [address] [id number] [place] [address]- 1850 Mar, [facility] [place] [facility] [address] [id number] [place] [address]- 3906 Mar, [facility] [place] [facility] [address] [id number] [place] [address]- 9650 Mar, [facility] [place] [facility] [address] [id number] [place] [address]- 5462 Mar, [facility] [place] [facility] [address] [id number] [place] [address]- 4378 Mar, [facility] [place] [facility] [address] [id number] [place] [address]- 7457 Feb, [facility] [place] [facility] [address] [id number] [place] [address]- 6652 Feb, [facility] [address] [id number] [place] [address]- 2579 Feb, [facility] [address] [id number] [place] [address]- 8049 Feb, [facility] [address] [id number] [place] [address]- 1449 Feb, [facility] [address] [id number] [place] [address]- 4298 Feb, [facility] [address] [id number] [place] [address]- 7335 Feb, [facility] [address] [id number] [place] [address]- 9981 Feb, [facility] [address] [id number] [place] [address]- 6006 Feb, [facility] [address] [id number] [place] [address]- 8871 Feb, [facility] [address] [id number] [place] [address]- 0175 Jan, [facility] [address] [id number] [place] [address]- 4869 Jan, [facility] [address] [id number] [place] [address]- 0084 Jan, [facility] [address] [id number] [place] [address]- 4735 Jan, [facility] [place] [facility] [address] [id number] [place] [address]- 1223 December, [facility] [place] [facility] [address] [id number] [place] [address]- 2136 December, [facility] [address] [id number] [place] [address]- 3519 December, [facility] [address] [id number] [place] [address]- 4563 Nov, [facility] [place] [facility] [address] [id number] [place] [address]- 2802 Nov, [facility] [place] [facility] [address] [id number] [place] [address]- 3944 Nov, [facility] [place] [facility] [address] [id number] [place] [address]- 0896 Nov, [facility] [address] [id number] [place] [address]- 6334 Nov, [facility] [place] [facility] [address] [id number] [place] [address]- 7991 Nov, [facility] [place] [facility] [address] [id number] [place] [address]- 5346 Oct, [facility] [place] [facility] [address] [id number] [place] [address]- 7883 Oct, [facility] [place] [facility] [address] [id number] [place] [address]- 8503 Oct, [facility] [place] [facility] [address] [id number] [place] [address]- 6311 Sep, [facility] [place] [facility] [address] [id number] [place] [address]- 4122 Sep, [facility] [place] [facility] [address] [id number] [place] [address]- 7720 Sep, [facility] [place] [facility] [address] [id number] [place] [address]- 1535 Aug, [facility] [place] [facility] [address] [id number] [place] [address]- 0015 Aug, [facility] [place] [facility] [address] [id number] [place] [address]- 2713 Aug, [facility] [place] [facility] [address] [id number] [place] [address]- 4740 Aug, [facility] [place] [facility] [address] [id number] [place] [address]- 0036 Jul, [facility] [place] [facility] [address] [id number] [place] [address]66 Jul, [facility] [place] [facility] [address] [id number] [place] [address]- 1179 Jul, [facility] [place] [facility] [address] [id number] [place] [address]- 5380 Jul, [facility] [place] [facility] [address] [id number] [place] [address]686 Jun, [facility] [place] [facility] [address] [id number] [place] [address]- 4168 Jun, [facility] [place] [facility] [address] [facility] [id number] [place] [address]- 2183 Jun, [facility] [place] [facility] [address] [id number] [place] [address]- 4289 Jun, [facility] [place] [facility] [address] [facility] [id number] [place] [address]- 9822 Jun, [facility] [place] [facility] [address] [facility] [id number] [place] [address]- 5134 Jun, [facility] [place] [facility] [address] [facility] [id number] [place] [address]- 7880 Jun, [facility] [place] [facility] [address] [facility] [id number] [address]- 8079 Jun, [facility] [place] [facility] [address] [id number] [place] [address]- 2704 May, [facility] [place] [facility] [address] [facility] [id number] [place] [address]- 9680 May, [facility] [place] [facility] [address] [facility] [id number], [place] [address]- 8317 May, [facility] [place] [facility] [address] [id number] [place] [address]- 9401 18 May, 2012 [facility] [place] [facility] [address] [id number] [place] [address]- 5783 2012 [facility] [place] [facility] [address] [id number] [place] [address]- 5671 13 May, 2012 [facility] [place] [facility] [address] [id number] [place] [address], [place] [address]- 1405 11 May, 2012 [facility] [place] [facility] [address] [id number] [place] [address]- 5771 11 May, 2012 [facility] [place] [facility] [address] [id number] [place] [address]- 4663 10 May, 2012 [facility] [place] [facility] [address] [id number] [place] [address]- 0707 08 May, 2012 [facility] [place] [facility] [address] [id number] [place] [address]- 7824 24 Apr, 2012 [facility] [place] [facility] [address] [id number] [place] [address]- 1704 19 Apr, 2012 [facility] [place] [facility] [address] [id number] [place] [address]- 6039 18 Apr, 2012 [facility] [place] [facility] [address] [id number] [place] [address]- 3713 17 Apr, 2012 [facility] [place] [facility] [address] [id number] [place] [address]- 2459 16 Apr, 2012 [facility] [place] [facility] [address] [id number] [place] [address]- 1217 10 Apr, 2012 [facility] [place] [facility] [address] [id number] [place] [address]- 9161 29 Mar, 2012 [facility] [place] [facility] [address] [id number] [place] [address]- 2034 27 Mar, 2012 [facility] [place] [facility] [address] [id number] [place] [address]- 2546 Mar, [facility] [place] [facility] [address] [id number] [place] [address]- 9319 Mar, [facility] [place] [facility] [address] [id number] [place] [address]- 0146 Mar, [facility] [place] [facility] [address] [id number] [place] [address]- 1436 Mar, [facility] [place] [facility] [address] [id number] [place] [address]- 3847 Feb, [facility] [place] [facility] [address] [id number] [place] [address]- 7518 Feb, [facility] [place] [facility] [address] [id number] [place] [address]- 5346 Feb, [facility] [place] [facility] [address] [id number] [place] [address]- 1705 Feb, [facility] [place] [facility] [address] [id number] [place] [address]- 9699 Feb, [facility] [place] [facility] [address] [id number] [place] [address]- 9118 Feb, [facility] [place] [facility] [address] [id number] [place] [address]- 1162 Feb, [facility] [place] [facility] [address] [id number] [place] [address]- 7006 Feb, [facility] [place] [facility] [address] [id number] [place] [address]- 8585 Feb, [facility] [place] [facility] [address] [id number] [place] [address]- 1278 Jan, [facility] [place] [facility] [address] [id number] [place] [address]- 9717 Jan, [facility] [place] [facility] [address] [id number] [place] [address]- 3849 Jan, [facility] [place] [facility] [address] [id number] [place] [address]- 9410 Jan, [facility] [address] [id number] [place] [address]- 6814 Jan, [facility] [address] [id number] [place] [address]- 6764 Jan, [facility] [address] [id number] [place] [address]- 8855 Jan, [facility] [address] [id number] [place] [address]- 3560 Jan, [facility] [address] [id number] [place] [address]- 2331 Jan, [facility] [address] [id number] [place] [address]- 1088 December, [facility] [address] [id number] [place] [address]- 9496 December, [facility] [address] [id number] [place] [address]- 5460 December, [facility] [address] [id number] [place] [address]- 5135 December, [facility] [address] [id number] [place] [address]- 5344 December, [facility] [address] [id number] [place] [address]- 5561 December, [facility] [address] [id number] [place] [address]- 1509 December, [facility] [place] [facility] [address] [id number] [place] [address]- 8081 December, [facility] [address] [id number] [place] [address]- 8586 December, [facility] [address] [id number] [place] 2210 December, [facility] [address] [id number] [place] [address]- 3868 30 Nov, 2011 [facility] [place] [facility] [address] [id number] [place] [address]- 3988 Nov, [facility] [place] [facility] [address] [id number] [place] [address]- 1755 Nov, [facility] [place] [facility] [address] [id number] [place] [address]- 1189 Nov, [facility] [place] [facility] [address] [id number] [place] [address]- 2363 16 Nov, 2011 [facility] [place] [facility] [address] [id number] [place] [address]- 9301 Nov, [facility] [place] [facility] [address] [id number] [place] [address]- 1939 Nov, [facility] [place] [facility] [address] [id number] [place] [address]- 2230 Nov, [facility] [place] [facility] [address] [id number] [place] [address]- 0372 Nov, [facility] [place] [facility] [address] [id number] [place] [address]- 7838 Nov, [facility] [place] [facility] [address] [id number] [place] [address]- 0752 Oct, [facility] [place] [facility] [address] [id number] [place] [address]- 9572 Oct, [facility] [place] [facility] [address] [id number] [place] [address]- 0896 Oct, [facility] [place] [facility] [address] [id number] [place] [address]- 6385 Oct, [facility] [place] [facility] [address] [id number] [place] [address]- 8848 Oct, [facility] [place] [facility] [address] [id number], [place] [address]- 0473 20 Oct, 2011 [facility] [address] [id number] [place] [address]- 5716 19 Oct, 2011 [facility] [place] [facility] [address] [id number] [place] [address]- 6676 19 Oct, 2011 [facility] [place] [facility] [address] [facility] [id number] [place] [address]- 0606 16 Oct, 2011 [facility] [place] [facility] [address] [id number] [place] [address]- 9220 14 Oct, 2011 [facility] [place] [facility] [address] [id number] [place] [address]- 9618 14 Oct, 2011 [facility] [place] [facility] [address] [facility] [id number] [place] [address]- 9734 09 Oct, 2011 [facility] [address] [id number] [place] [address]- 1280 08 Oct, 2011 [facility] [place] [facility] [address] [facility] [id number] [place] [address]- 7764 06 Oct, 2011 [facility] [place] [facility] [address] [id number] [place] [address] 02 Oct, 2011 [facility] [place] [facility] [address] [id number] [place] [address] 28 Sep, 2011 [facility] [place] [facility] [address] [id number] [place] [address] 24 Sep, 2011 [facility] [place] [facility] [address] [facility] [id number] [place] [address] 20 Sep, 2011 [facility] [place] [facility] [address] [id number] [place] [address] 17 Sep, 2011 [facility] [place] [facility] [address] [facility] [id number] [place] [address] 16 Sep, 2011 [facility] [place] [facility] [address] [facility] [id number] [place] [address] 1845 14 Sep, 2011 [facility] [place] [facility] [address] [id number] [place] [address] 6[address] 13 Sep, 2011 [facility] [place] [facility] [address] [id number] [place] [address] 10 Sep, 2011 [facility] [place] [facility] [address] [id number] [place] [address] 7255 06 Sep, 2011 [facility] [place] [facility] [address] [id number] [place] [address] 2510 03 Sep, 2011 [facility] [place] [facility] [address] [id number] [place] [address] Sep, [facility] [place] [facility] [address] [id number] [place] [address] 288[address] 30 Aug, 2011 [facility] [place] [facility] [address] [id number] [place] [address]- [address]679 Aug, [facility] [place] [facility] [address] [id number] [place] [address]181 27 Aug, 2011 [facility] [place] [facility] [address] [id number] [place] [address] 8958 24 Aug, 2011 [facility] [place] [facility] [address] [id number] [place] [address]- [address] Aug, [facility] [place] [facility] [address] [id number] [place] [address]- 7146 17 Aug, 2011 [facility] [place] [facility] [address] [id number] [address] 17 Aug, 2011 [facility] [place] [facility] [address] [id number] [place] [address]- 0444 17 Aug, 2011 [facility] [place] [facility] [address] [id number] [place] [address]- 6826 16 Aug, 2011 [facility] [place] [facility] [address] [id number] [place] [address]- 1311 13 Aug, 2011 [facility] [place] [facility] [address] [id number] [place] [address]- 5399 11 Aug, 2011 [facility] [address] [id number] [place] [address] 65[address] Aug, [facility] [address] [id number] [place] [address] Aug, [facility] [address] [id number] [place] [address] 7256 Aug, [facility] [address] [id number] [place] [address]- 6[address] Aug, [facility] [address] [id number] [place] [address] Aug, [facility] [address] [id number] [place] [address] 1762 Aug, [facility] [address] [id number] [place] [address] 8968 30 Jul, 2011 [facility] [address] [id number] [place] [address] 6665 28 Jul, 2011 [facility] [address] [id number] [place] [address] 4702 27 Jul, 2011 [facility] [address] [id number] [place] [address] 23 Jul, 2011 [facility] [address] [id number] [place] [address] 0756 19 Jul, 2011 [facility] [place] [facility] [address] [id number] [place] [address] 2542 19 Jul, 2011 [facility] [place] [facility] [address] [id number] [place] [address]- [address]857 17 Jul, 2011 [facility] [place] [facility] [address] [id number] [place] [address]- 2096 16 Jul, 2011 [facility] [address] [id number] [place] [address]- 7277 07 Jul, 2011 [facility] [address] [facility] [id number], [place] [address] Jul, [facility] [address] [facility] [id number], [place] [address] Jul, [facility] [address] [facility] [id number], [place] [address] Jun, [facility] [address] [facility] [id number], [place] [address] Jun, [facility] [address] [facility] [id number] [address] Jun, IMMUNIZATIONS No Known Immunizations SOCIAL HISTORY Never Assessed REASON FOR VISIT Controlled Med Refill 01/21/18 PLAN OF CARE VITAL SIGNS MEDICATIONS Medication Instructions Dosage Frequency Start Date End Date Duration Status Ativan 0.5 MG Orally Once a day 1 tablet as needed 24h December, 28 days Active Oxycodone HCl 5 MG Orally Once a day 1 tablet at bedtime 24h Jan, 28 days Active RESULTS No Results PROCEDURES [...]
--- OUTSIDE RECORDS SUMMARY | 2018-08-05 03:19 | XMS REPORT ---
Author Author HEATHER FINE Organization [facility] Address [address] [place] [address] Care Team Providers Care Structural Rigger Name Role Phone HEATHER FINE Unavailable PROBLEMS Type Condition ICD9-CM Code VLN90-FH Code Onset Dates Condition Status SNOMED Code Problem Unspecified cirrhosis of liver K74.60 Active 381352540 Problem Lymphocytosis D72.820 Active 59949334 Problem Secondary esophageal varices with bleeding I85.11 Active 47378939 Problem Anxiety F41.9 Active 28844540 Problem Asthma J45.909 Active 491377886 Problem Chronic back pain M54.9 Active 464668336 Problem Dysthymia F34.1 Active 29045694 Problem Thrombocytosis D47.3 Active 7797161 Problem Splenomegaly R16.1 Active 41507603 Problem 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 Active 754146442 Problem History of hepatitis C Z86.19 Active [id number] ALLERGIES No Information ENCOUNTERS Encounter Location Date Diagnosis [place] [id number] [place] [address] 05440- 6063 Mar, Anxiety F41.9 [place] [address] [place] [id number] [place] [address] 19801- 2798 Feb, [place] [address] [place] [id number] [place] [address] 65974- 2646 Feb, Chronic back pain M54.9 ; Anxiety F41.9 and Dysuria R30.0 [place] [address] [place] [id number] [place] [address] 27038- 2511 Feb, [place] [address] [place] [id number] [place] [address] 56966- 8146 Feb, Anxiety F41.9 [place] [address] [place] [id number] [place] [address] 52635- 1724 Jan, [facility] [id number] [place] [address] 01745- 7307 08 Jan, 2018 Chronic back pain M54.9 and Anxiety F41.9 [facility] [address] [id number] [place] [address] 44429- 1696 December, Chronic back pain M54.9 and Anxiety F41.9 [facility] [address] [id number] [place] [address] 44232- 1417 Nov, Chronic back pain M54.9 and Anxiety F41.9 [facility] [address] [id number] [place] [address] 09201- 9269 Oct, Chronic back pain M54.9 and Anxiety F41.9 [facility] [address] [id number] [place] [address] 85366- 5928 Oct, [facility] [address] [id number] [place] [address] 06127- 1602 Sep, Chronic back pain M54.9 ; Anxiety F41.9 ; Pain of left leg M79.605 and Pain in right leg M79.604 [facility] [address] [id number] [place] [address] 92314- 0555 Sep, Anxiety F41.9 and Chronic back pain M54.9 [facility] [address] [id number] [place] [address] 52521- 4929 Sep, [facility] [address] [id number] [place] [address] 45037- 7288 Aug, Anxiety F41.9 [facility] [address] [id number] [place] [address] 14416- 4435 Jul, Anxiety F41.9 [facility] [address] [place] [address] 06313- 8476 Jul, [facility] [address] [id number] [place] [address] 57345- 3248 Jul, Viral syndrome B34.9 ; Chronic back pain M54.9 and Dysuria R30.0 [facility] [address] [id number] [place] [address] 41810- 5613 Jun, [facility] [id number] [place] [address] 08222- 8210 Jun, Anxiety F41.9 [facility] [address] [id number] [place] [address] 95481 -6911 Jun, Dysuria R30.0 and Acute cystitis without hematuria N30.00 [facility] [address] [id number] [place] [address] 50272- 9003 Jun, [facility] [address] [id number] [place] [address] 80028- 5813 May, Anxiety F41.9 [facility] [address] [id number] [place] [address] 03451- 2445 May, Anxiety F41.9 [facility] [address] [id number] [place] [address] 49281- 3741 Apr, [facility] [address] [id number] [place] [address] 06642- 5490 Apr, Chronic back pain M54.9 and Anxiety F41.9 [facility] [address] [id number] [place] [address] 71507- 9387 Mar, [facility] [address] [id number] [place] [address] 20517- 4151 Mar, [facility] [address] [id number] [place] [address] 22859- 3598 Mar, Well woman exam Z01.419 ; Cervical cancer screening Z12.4 ; Breast cancer screening Z12.31 and Colon cancer screening Z12.11 [facility] [address] [place] [address] 11866- 3677 Mar, Chronic back pain M54.9 and Anxiety F41.9 [facility] [address] [address]- 8080 Mar, [facility] [address] [place] [address] [id number] [place] [address] 38220- 1054 Feb, Chronic back pain M54.9 and Anxiety F41.9 [facility] [address] [place] [address] [id number] [place] [address] 31328- 8407 Feb, [facility] [address] [place] [address] [id number] [place] [address] 81378- 3104 Feb, [facility] [address] [place] [address] [id number] [place] [address] 58332- 5650 Jan, Chronic back pain M54.9 and Anxiety F41.9 [facility] [address] [place] [address] [id number] [place] [address] 76733- 7615 Jan, [facility] [address] [place] [id number] [place] [address] 29085- 3157 Jan, [facility] [address] [place] [address] [id number] [place] [address] 15119- 2994 December, Chronic back pain M54.9 and Anxiety F41.9 [facility] [address] [place] [address] [id number] [place] [address] 00643- 7941 Nov, Chronic back pain M54.9 and Anxiety F41.9 [facility] [address] [place] [address] 27378- 2851 Oct, Chronic back pain M54.9 and Anxiety F41.9 [facility] [address] [place] [address] 94296- 1872 Oct, Chronic back pain M54.9 [facility] [address] [place] [address] [id number] [place] [address] 65888- 6389 Sep, Anxiety F41.9 and Chronic back pain M54.9 [facility] [address] [place] [address] [id number] [place] [address] 85909- 6862 Aug, Anxiety F41.9 and Chronic back pain M54.9 [facility] [address] [place] [id number] [place] [address] 06744- 7631 Aug, [facility] [address] [place] [id number] [place] [address] 74983- 2176 Jul, Chronic back pain M54.9 and Anxiety F41.9 [facility] [address] 64446- 4337 Jul, Anxiety F41.9 and Chronic back pain M54.9 [facility] [address] [place] [address] Jul, [facility] [address] [place] [address] [id number] [place] [address] 96210- 0845 Jul, Anxiety F41.9 [facility] [address] [place] [address] [id number] [place] [address] 36586- 6362 Jul, Anxiety F41.9 and Dysuria R30.0 [facility] [address] [place] [id number] [place] [address] 48559- 0698 Jul, Chronic back pain M54.9 and Anxiety F41.9 [facility] [address] [place] [id number] [place] [address] 17242- 9297 Jun, Chronic back pain M54.9 [facility] [address] [place] [address] [id number] [place] [address] 94788- 1157 Jun, Chronic back pain M54.9 [facility] [address] [place] [id number] [place] [address] 68425- 7417 May, Anxiety F41.9 [facility] [address] [place] [address] [id number] [place] [address] 25620- 4959 May, Chronic back pain M54.9 [facility] [address] [place] [id number] [place] [address] 18384- 9977 Apr, [facility] [address] [place] [address] [id number] [place] [address] 07884- 3111 Apr, [facility] [address] [address]- 1066 Apr, [facility] [address] [place] [address] [id number] [place] [address] 09647- 4696 Apr, Chronic back pain M54.9 [facility] [address] [place] [address] [id number] [place] [address] 62723- 4726 Mar, Chronic back pain M54.9 [facility] [address] [place] [address] [id number] [place] [address] 04707 2546 Feb, Grief F43.20 [facility] [address] [place] [id number] [place] [address] 69077- 4186 Feb, Chronic back pain M54.9 and Anxiety F41.9 [facility] [address] [place] [address] [id number] [place] [address] 24233- 5300 Feb, Chronic back pain M54.9 [facility] [address] [place] [id number] [place] [address] 70689- 9606 Jan, Chronic back pain M54.9 [facility] [address] [place] [id number] [place] [address] 95112- 5107 December, [facility] [address] [place] [id number] [place] [address] 48489- 2816 December, Grief F43.20 [facility] [address] [place] [id number] [place] [address] 07552- 1465 Nov, [facility] [address] [place] [id number] [place] [address] 85272- 9981 28 Oct, 2015 Cervicalgia M54.2 ; Secondary esophageal varices with bleeding I85.11 and Mouth pain K13.79 [facility] [address] [address]- 1936 22 Oct, 2015 [facility] [address] [place] [id number] [place] [address] 75765- 0861 Oct, [facility] [address] [place] [id number] [place] [address] 37630- 3741 Sep, [facility] [address] [place] [id number] [place] [address] 48362- 2764 Sep, Acute maxillary sinusitis, recurrence not specified J01.00 [facility] [address] [place] [id number] [place] [address] 65845- 2555 Aug, [facility] [address] [place] [id number] [place] [address] 72613- 1359 Aug, [facility] [address] [place] [id number] [place] [address] 50777- 7434 Aug, Dysuria R30.0 and Chronic back pain M54.9 [facility] [address] [place] [id number] [place] [address] 91513- 6652 Jul, [facility] [address] [place] [id number] [place] [address] 34994- 9633 Jul, [facility] [address] [place] [id number] [place] [address] 76193- 8456 Jul, [facility] [address] [place] [id number] [place] [address] 95778- 9419 Jul, Chronic back pain M54.9 [facility] [address] [place] [id number] [place] [address] 14576- 1086 Jul, Dysthymia F34.1 and Chronic back pain M54.9 [facility] [address] [place] [id number] [place] [address] 22749- 5556 Jun, [facility] [address] [place] [id number] [place] [address] 75364- 8518 Jun, [facility] [address] [place] [id number] [place] [address] 93364- 2225 May, [facility] [address] [place] [address] [id number] [place] [address] 90458- 1121 May, [facility] [address] [id number] [place] [address]- 0202 May, [facility] [address] [id number] [address]- 2068 May, Encounter for immunization Z23 [facility] [address] [facility] [id number] [place] [address]- 6256 15 Apr, 2015 [facility] [address] [id number] [place] [address]- 8206 10 Apr, 2015 [facility] [address] [id number] [place] [address]- 9595 Mar, [facility] [address] [facility] [id number] [place] [address]- 5667 Mar, Back pain 724.5 [facility] [id number] [place] [address], [place] [address]- 9932 Mar, Cough 786.2 and Back pain 724.5 [facility] [address] [id number] [place] [address]- 3074 Mar, [facility] [address] [place] [id number] [address]- 8894 Mar, [facility] [address] [facility] [id number] [place] [address]- 0860 December, [facility] [address] [place] [id number] [address]- 4130 December, [facility] [address] [facility] [id number] [place] [address]- 2224 Nov, [facility] [address] [facility] [id number] [place] [address]- 9987 Nov, [facility] [address] [facility] [id number] [place] [address]- 2958 Oct, [facility] [address] [facility] [id number] [place] [address]- 9909 Oct, [facility] [place] [facility] [address] [id number] [place] [address]- 7405 Sep, [facility] [place] [facility] [address] [id number] [place] [address]- 7750 Sep, [facility] [place] [facility] [address] [id number] [place] [address]- 4058 Sep, [facility] [place] [facility] [address] [id number] [place] [address]- 8425 Sep, 2014 [facility] [place] [facility] [address] [id number] [place] [address]- 4003 Sep, [facility] [place] [facility] [address] [id number] [place] [address]- 9121 Sep, [facility] [place] [facility] [address] [id number] [place] [address]- 8129 Sep, [facility] [place] [facility] [address] [id number] [place] [address]- 0872 Sep, [facility] [place] [facility] [address] [id number] [place] [address]- 7319 Aug, [facility] [place] [facility] [address] [id number] [place] [address]- 5810 Aug, [facility] [place] [facility] [address] [id number] [place] [address]- 4581 Aug, [facility] [place] [facility] [address] [id number] [place] [address]- 5375 Aug, [facility] [place] [facility] [address] [id number] [place] [address]- 1023 Aug, [facility] [place] [facility] [address] [id number] [place] [address]- 2108 Aug, [facility] [place] [facility] [address] [id number] [place] [address]- 2481 Aug, [facility] [place] [facility] [address] [id number] [place] [address]- 0545 Jul, [facility] [place] [facility] [address] [id number] [place] [address]- 7195 Jul, [facility] [place] [facility] [address] [id number] [place] [address]- 7633 Jul, [facility] [place] [facility] [address] [id number] [place] 3859 Jul, [facility] [place] [facility] [address] [id number] [place] [address]- 4912 15 Jul, 2014 [facility] [place] [facility] [address] [id number] [place] [address]- 5039 Jul, [facility] [place] [facility] [address] [id number] [place] [address]- 4281 Jul, [facility] [place] [facility] [address] [id number] [place] [address]- 8569 Jul, [facility] [place] [facility] [address] [id number] [place] [address]- 8297 Jun, [facility] [place] [facility] [address] [id number] [place] [address]- 9988 Jun, [facility] [place] [facility] [address] [facility] [id number] [place] [address]- 1580 Jun, [facility] [place] [facility] [address] [id number] [place] [address]- 5067 Jun, [facility] [place] [facility] [address] [id number] [place] [address]- 8098 Jun, [facility] [place] [facility] [address] [id number] [place] [address]- 8675 Jun, [facility] [place] [facility] [address] [id number] [place] [address]- 7353 Jun, [facility] [place] [facility] [address] [id number] [place] [address]- 2380 May, [facility] [place] [facility] [address] [id number] [place] [address]- 3870 28 May, 2014 [facility] [place] [facility] [address] [id number] [place] [address]- 3806 May, [facility] [place] [facility] [address] [id number] [place] [address]- 7736 28 May, 2014 [facility] [place] [facility] [address] [id number] [place] [address]- 2933 May, [facility] [place] [facility] [address] [id number] [place] [address]- 4539 2014 [facility] [place] [facility] [address] [id number] [place] [address]- 9522 May, [facility] [place] [facility] [address] [id number] [place] [address]- 5337 2014 [facility] [place] [facility] [address] [id number] [place] [address]- 2032 May, [facility] [place] [facility] [address] [id number] [place] [address]- 8992 May, [facility] [place] [facility] [address] [id number] [place] [address]- 0547 May, [facility] [place] [facility] [address] [id number] [place] [address]- 9709 10 May, 2014 [facility] [place] [facility] [address] [id number] [place] [address]- 8780 08 May, 2014 [facility] [place] [facility] [address] [id number] [place] [address]- 5582 08 May, 2014 [facility] [place] [facility] [address] [id number] [place] [address]- 1593 26 Apr, 2014 [facility] [place] [facility] [address] [id number] [place] 2083 23 Apr, 2014 [facility] [place] [facility] [address] [id number] [place] [address]- 7584 Apr, [facility] [place] [facility] [address] [id number] [place] [address]- 6753 Apr, [facility] [place] [facility] [address] [id number] [place] [address]- 9234 Apr, [facility] [place] [facility] [address] [id number] [place] [address]- 1693 Apr, [facility] [place] [facility] [address] [id number] [place] [address]- 9727 Apr, [facility] [place] [facility] [address] [id number] [place] [address]- 0375 Mar, [facility] [place] [facility] [address] [id number] [place] [address]- 2967 Mar, [facility] [place] [facility] [address] [id number] [place] [address]- 9402 Mar, [facility] [place] [facility] [address] [id number] [place] [address]- 9811 Mar, [facility] [place] [facility] [address] [id number] [place] [address]- 2181 Mar, [facility] [place] [facility] [address] [id number] [place] [address]- 3805 Mar, [facility] [place] [facility] [address] [id number] [place] [address]- 5500 Feb, [facility] [place] [facility] [address] [id number] [place] [address]- 2737 Feb, [facility] [place] [facility] [address] [id number] [place] [address]- 2948 Feb, [facility] [place] [facility] [address] [id number] [place] [address]- 6343 Feb, [facility] [place] [facility] [address] [id number] [place] [address]- 4361 Feb, [facility] [place] [facility] [address] [id number] [place] [address]- 2546 Feb, [facility] [address] [id number] [place] [address]- 6266 Feb, [facility] [place] [facility] [address] [id number] [place] [address]- 1016 Feb, [facility] [address] [id number] [place] [address]- 9925 Jan, [facility] [place] [facility] [address] [id number] [place] [address]- 0689 Jan, [facility] [address] [id number] [place] [address]- 9845 December, [facility] [address] [id number] [place] [address]- 4476 December, [facility] [address] [id number] [place] [address]- 9223 December, [facility] [address] [id number] [place] [address]- 3361 December, [facility] [place] [facility] [address] [id number] [place] [address]- 3686 December, [facility] [address] [id number] [place] [address]- 4236 December, [facility] [place] [facility] [address] [id number] [place] [address]- 4576 December, [facility] [place] [facility] [address] [id number] [place] [address]- 1746 December, [facility] [place] [facility] [address] [id number] [place] [address] December, [facility] [place] [facility] [address] [id number] [place] [address] December, [facility] [place] [facility] [address] [id number] [place] [address] December, [facility] [place] [facility] [address] [id number] [place] [address] December, [facility] [place] [facility] [address] [id number] [place] [address] Nov, [facility] [place] [facility] [address] [id number] [place] [address] Nov, [facility] [place] [facility] [address] [id number] [place] [address] Nov, [facility] [place] [facility] [address] [id number] [place] [address] Nov, [facility] [place] [facility] [address] [id number] [place] [address] Nov, [facility] [place] [facility] [address] [id number] [place] [address] Nov, [facility] [place] [facility] [address] [id number] [place] [address] Nov, [facility] [place] [facility] [address] [id number] [place] [address] Nov, [facility] [place] [facility] [address] [id number] [place] [address] Nov, [facility] [place] [facility] [address] [id number] [place] [address] Nov, [facility] [place] [facility] [address] [id number] [place] [address] Nov, [facility] [place] [facility] [address] [id number] [place] [address] Nov, [facility] [place] [facility] [address] [id number] [place] [address] Nov, [facility] [place] [facility] [address] [id number] [place] [address] Oct, [facility] [place] [facility] [address] [id number] [place] [address] Oct, [facility] [place] [facility] [address] [id number] [place] [address] Sep, [facility] [place] [facility] [address] [id number] [place] [address] Sep, [facility] [place] [facility] [address] [id number] [place] [address] Sep, [facility] [place] [facility] [address] [id number] [place] [address] Sep, [facility] [place] [facility] [address] [id number] [place] [address] Sep, [facility] [place] [facility] [address] [id number] [place] [address] Sep, [facility] [place] [facility] [address] [id number] [place] [address] Sep, [facility] [place] [facility] [address] [id number] [place] [address] Sep, [facility] [place] [facility] [address] [facility] [id number] [place] [address] Sep, [facility] [place] [facility] [address] [facility] [id number] [place] [address] Sep, [facility] [place] [facility] [address] [facility] [id number] [place] [address] Sep, [facility] [place] [facility] [address] [id number] [place] [address] Sep, [facility] [place] [facility] [address] [id number] [place] [address] Aug, [facility] [place] [facility] [address] [id number] [place] [address] Aug, [facility] [place] [facility] [address] [id number] [place] [address] Aug, [facility] [place] [facility] [address] [id number] [place] [address] Aug, [facility] [place] [facility] [address] [id number] [place] [address] Aug, [facility] [place] [facility] [address] [id number] [place] [address] Aug, [facility] [place] [facility] [address] [id number] [place] [address] Aug, [facility] [place] [facility] [address] [id number] [place] [address] Aug, [facility] [place] [facility] [address] [id number] [place] [address] Aug, [facility] [place] [facility] [address] [id number] [place] [address] Aug, [facility] [place] [facility] [address] [id number], [place] [address] Aug, [facility] [place] [facility] [address] [id number] [place] [address] Aug, [facility] [place] [facility] [address] [id number] [place] [address] Aug, [facility] [place] [facility] [address] [id number], [place] [address] Aug, [facility] [place] [facility] [address] [id number], [place] [address] Aug, [facility] [place] [facility] [address] [id number] [place] [address] Aug, [facility] [place] [facility] [address] [id number], [place] [address]- 6139 Aug, [facility] [place] [facility] [address] [id number] [place] [address] Aug, [facility] [place] [facility] [address] [id number] [place] [address] 2898 09 Aug, 2013 [facility] [address] [id number] [place] [address] 62[address] Aug, [facility] [place] [facility] [address] [id number] [place] [address]146 Aug, [facility] [address] [id number] [place] [address] 8816 Aug, [facility] [address] [id number] [place] [address] 9521 Aug, [facility] [address] [id number] [place] [address] 0[address] Jul, [facility] [address] [id number] [place] [address] 7758 Jul, [facility] [address] [id number] [place] [address] 49[address] Jul, [facility] [address] [id number] [place] [address] 9047 Jul, [facility] [place] [facility] [address] [id number] [place] [address] 0142 Jul, [facility] [address] [id number] [place] [address] 18[address] Jul, [facility] [address] [id number] [place] [address] 8400 Jun, [facility] [place] [facility] [address] [id number] [place] [address] 6347 Jun, [facility] [place] [facility] [address] [id number] [place] [address]- 1180 Jun, [facility] [place] [facility] [address] [id number] [place] [address]- 4234 Jun, [facility] [place] [facility] [address] [id number] [place] [address]- 8362 Jun, [facility] [place] [facility] [address] [id number] [place] [address]- 9406 Jun, [facility] [place] [facility] [address] [id number] [place] [address]- 5587 Jun, [facility] [place] [facility] [address] [id number] [place] [address]- 5611 Jun, [facility] [place] [facility] [address] [id number] [place] [address]- 0883 Jun, [facility] [place] [facility] [address] [id number] [place] [address]- 5417 Jun, [facility] [place] [facility] [address] [id number] [place] [address]- 3656 May, [facility] [place] [facility] [address] [id number] [place] [address]- 1165 May, [facility] [place] [facility] [address] [id number] [place] [address]- 3076 May, [facility] [place] [facility] [address] [id number] [place] [address]- 6234 May, [facility] [place] [facility] [address] [id number] [place] [address]- 9252 May, [facility] [place] [facility] [address] [id number] [place] [address]- 8243 May, [facility] [place] [facility] [address] [id number], [place] [address]- 9[address] May, [facility] [place] [facility] [address] [id number] [place] [address]- 5865 May, [facility] [place] [facility] [address] [id number] [place] [address]- 7552 May, [facility] [place] [facility] [address] [id number] [place] [address]- 8407 May, [facility] [place] [facility] [address] [id number], [place] [address]- 1058 May, [facility] [place] [facility] [address] [id number] [place] [address]- 7045 May, [facility] [place] [facility] [address] [id number] [place] [address]- 1274 May, [facility] [place] [facility] [address] [id number] [place] [address]- 6976 May, [facility] [place] [facility] [address] [id number] [place] [address] May, [facility] [place] [facility] [address] [id number] [place] [address]- 7688 24 Apr, 2013 [facility] [place] [facility] [address] [id number] [place] [address]- 2878 Apr, [facility] [place] [facility] [address] [id number] [place] [address]- 5357 Apr, [facility] [place] [facility] [address] [id number] [place] [address]- 0444 Mar, [facility] [place] [facility] [address] [id number] [place] [address]- 6014 Mar, [facility] [place] [facility] [address] [id number] [place] [address]- 8696 Mar, [facility] [place] [facility] [address] [id number] [place] [address]- 2519 Mar, [facility] [place] [facility] [address] [id number] [place] [address]- 1817 Mar, [facility] [place] [facility] [address] [id number] [place] [address]- 2689 Mar, [facility] [place] [facility] [address] [id number] [place] [address] Feb, [facility] [place] [facility] [address] [id number] [place] [address] Feb, [facility] [place] [facility] [address] [id number] [place] [address]- 1310 Feb, [facility] [address] [id number] [place] [address]- 3587 Feb, [facility] [address] [id number] [place] [address]- 7646 Feb, [facility] [address] [id number] [place] [address]- 3716 Feb, [facility] [address] [id number] [place] [address]- 2877 Feb, [facility] [address] [id number] [place] [address]- 4633 Feb, [facility] [address] [id number] [place] [address]- 7611 Feb, [facility] [address] [id number] [place] [address]- 4727 Feb, [facility] [address] [id number] [place] [address]- 5274 Jan, [facility] [address] [id number] [place] [address]- 3145 Jan, [facility] [address] [id number] [place] [address]- 1181 Jan, [facility] [address] [id number] [place] [address]- 2925 Jan, [facility] [address] [id number] [place] [address]- 4716 December, [facility] [place] [facility] [address] [id number] [place] [address]- 3591 December, [facility] [address] [id number] [place] [address]- 2546 December, [facility] [address] [id number] [place] [address]- 0059 Nov, [facility] [address] [id number] [place] [address]- 6333 Nov, [facility] [place] [facility] [address] [id number] [place] [address]- 2040 Nov, [facility] [address] [id number] [place] [address]- 4828 Nov, [facility] [place] [facility] [address] [id number] [place] [address]- 1583 Nov, [facility] [address] [id number] [place] [address]- 5418 Nov, [facility] [place] [facility] [address] [id number] [place] [address]- 2024 Oct, [facility] [place] [facility] [address] [id number] [place] [address]- 9492 Oct, [facility] [place] [facility] [address] [id number] [place] [address]- 3967 Oct, [facility] [place] [facility] [address] [id number] [place] [address]- 6481 Sep, [facility] [place] [facility] [address] [id number] [place] [address]- 8577 Sep, [facility] [place] [facility] [address] [id number] [place] [address]- 6783 Sep, [facility] [place] [facility] [address] [id number] [place] [address]- 4655 Aug, [facility] [place] [facility] [address] [id number] [place] [address]- 0780 Aug, [facility] [place] [facility] [address] [id number] [place] [address]- 9114 Aug, [facility] [place] [facility] [address] [id number] [place] [address]- 2441 Aug, [facility] [place] [facility] [address] [id number] [place] 9542 Jul, [facility] [place] [facility] [address] [id number] [place] [address] Jul, [facility] [place] [facility] [address] [id number] [place] [address]30 Jul, [facility] [place] [facility] [address] [facility] [id number] [place] [address]- 0219 Jul, [facility] [place] [facility] [address] [id number] [place] [address]- 3584 Jun, [facility] [place] [facility] [address] [id number] [place] [address]- 0058 Jun, [facility] [place] [facility] [address] [facility] [id number] [place] [address]- 0843 Jun, [facility] [place] [facility] [address] [facility] [id number] [place] [address]- 9441 Jun, [facility] [place] [facility] [address] [id number] [place] [address]- 1439 Jun, [facility] [place] [facility] [address] [facility] [id number] [place] [address]- 4868 Jun, [facility] [place] [facility] [address] [facility] [id number] [place] [address]- 6848 Jun, [facility] [place] [facility] [address] [facility] [id number] [place] [address]- 1873 Jun, [facility] [place] [facility] [address] [facility] [id number], [place] [address]- 5842 May, [facility] [place] [facility] [address] [id number] [place] [address]- 7630 May, [facility] [place] [facility] [address] [facility] [id number] [place] [address]- 3333 May, [facility] [place] [facility] [address] [facility] [id number] [place] 7196 May, [facility] [place] [facility] [address] [id number] [place] [address]- 3386 2012 [facility] [place] [facility] [address] [id number] [place] [address]- 1593 13 May, 2012 [facility] [place] [facility] [address] [id number] [place] [address]- 7150 11 May, 2012 [facility] [place] [facility] [id number] [place] [address], [place] [address]- 8638 11 May, 2012 [facility] [place] [facility] [address] [id number] [place] [address]- 2731 10 May, 2012 [facility] [place] [facility] [address] [id number] [place] [address]- 0175 08 May, 2012 [facility] [place] [facility] [address] [id number] [place] [address]- 7267 24 Apr, 2012 [facility] [place] [facility] [address] [id number] [place] [address]- 8715 19 Apr, 2012 [facility] [place] [facility] [address] [id number] [place] [address]- 1814 18 Apr, 2012 [facility] [place] [facility] [address] [id number] [place] [address]- 7103 17 Apr, 2012 [facility] [place] [facility] [address] [id number] [place] [address]- 9441 16 Apr, 2012 [facility] [place] [facility] [address] [id number] [place] [address]- 2356 10 Apr, 2012 [facility] [place] [facility] [address] [id number] [place] [address]- 2295 29 Mar, 2012 [facility] [place] [facility] [address] [id number] [place] [address]- 8773 27 Mar, 2012 [facility] [place] [facility] [address] [id number] [place] [address]- 7741 23 Mar, 2012 [facility] [place] [facility] [address] [id number] [place] [address]- 2546 Mar, [facility] [place] [facility] [address] [id number] [place] [address]- 9290 Mar, [facility] [place] [facility] [address] [id number] [place] [address]- 3096 Mar, [facility] [place] [facility] [address] [id number] [place] [address]- 2703 Feb, [facility] [place] [facility] [address] [id number] [place] [address]- 2082 Feb, [facility] [place] [facility] [address] [id number] [place] [address]- 4496 Feb, [facility] [place] [facility] [address] [id number] [place] [address]- 9706 Feb, [facility] [place] [facility] [address] [id number] [place] [address]- 0127 Feb, [facility] [place] [facility] [address] [id number] [place] [address]- 3733 Feb, [facility] [place] [facility] [address] [id number] [place] [address]- 6337 Feb, [facility] [place] [facility] [address] [id number] [place] [address]- 6812 Feb, [facility] [place] [facility] [address] [id number] [place] [address]- 8951 Feb, [facility] [place] [facility] [address] [id number] [place] [address]- 6529 Jan, [facility] [place] [facility] [address] [id number] [place] [address]- 1658 Jan, [facility] [place] [facility] [address] [id number] [place] [address]- 4899 Jan, [facility] [place] [facility] [address] [id number] [place] [address]- 0877 Jan, [facility] [place] [facility] [address] [id number] [place] [address]- 0988 15 Jan, 2012 [facility] [address] [id number] [place] [address]- 2828 Jan, [facility] [address] [id number] [place] [address]- 6536 Jan, [facility] [address] [id number] [place] [address]- 6988 Jan, [facility] [address] [id number] [place] [address]- 2226 Jan, [facility] [address] [id number] [place] [address]- 3391 December, [facility] [address] [id number] [place] [address]- 9919 December, [facility] [address] [id number] [place] [address]- 9341 December, [facility] [address] [id number] [place] [address]- 0195 December, [facility] [address] [id number] [place] [address]- 2609 December, [facility] [address] [id number] [place] [address]- 8355 December, [facility] [address] [id number] [place] [address]- 5806 December, [facility] [address] [id number] [place] [address]- 7056 December, [facility] [place] [facility] [address] [id number] [place] [address]- 5316 December, [facility] [address] [id number] [place] [address]- 5546 December, [facility] [address] [id number] [place] 6868 Nov, [facility] [place] [facility] [address] [id number] [place] [address]- 1058 27 Nov, 2011 [facility] [place] [facility] [address] [id number] [place] [address]- 0982 26 Nov, 2011 [facility] [place] [facility] [address] [id number] [place] [address]- 3022 20 Nov, 2011 [facility] [place] [facility] [address] [id number] [place] [address]- 9462 16 Nov, 2011 [facility] [place] [facility] [address] [id number] [place] [address]- 1325 13 Nov, 2011 [facility] [place] [facility] [address] [id number] [place] [address]- 3088 09 Nov, 2011 [facility] [place] [facility] [address] [id number] [place] [address]- 8071 Nov, [facility] [place] [facility] [address] [id number] [place] [address]- 7813 05 Nov, 2011 [facility] [place] [facility] [address] [id number] [place] [address]- 7309 Nov, [facility] [place] [facility] [address] [id number] [place] [address]- 6860 30 Oct, 2011 [facility] [place] [facility] [address] [id number] [place] [address]- 5438 29 Oct, 2011 [facility] [place] [facility] [address] [id number], [place] [address]- 6989 Oct, [facility] [place] [facility] [address] [id number] [place] [address]- 5058 Oct, [facility] [place] [facility] [address] [id number] [place] [address]- 5029 Oct, [facility] [place] [facility] [address] [id number] [place] [address]- 5359 Oct, [facility] [place] [facility] [address] [id number], [place] [address]- 2926 19 Oct, 2011 [facility] [place] [facility] [address] [id number] [place] [address]- 3426 19 Oct, 2011 [facility] [place] [facility] [address] [id number] [place] [address]- 6976 16 Oct, 2011 [facility] [place] [facility] [address] [facility] [id number] [place] [address]- 4086 14 Oct, 2011 [facility] [place] [facility] [address] [id number] [place] [address]- 1130 14 Oct, 2011 [facility] [place] [facility] [address] [id number] [place] [address]- 0800 09 Oct, 2011 [facility] [place] [facility] [address] [facility] [id number] [place] [address]- 8932 08 Oct, 2011 [facility] [place] [facility] [address] [id number] [address]- 8183 06 Oct, 2011 [facility] [place] [facility] [address] [facility] [id number] [place] [address]- 7345 02 Oct, 2011 [facility] [place] [facility] [address] [id number] [address]- 6209 28 Sep, 2011 [facility] [place] [facility] [address] [id number] [address]- 8746 24 Sep, 2011 [facility] [place] [facility] [address] [id number] [address]- 4636 20 Sep, 2011 [facility] [place] [facility] [address] [facility] [id number] [place] [address] 2546 17 Sep, 2011 [facility] [place] [facility] [address] [id number] [place] [address]- 2913 16 Sep, 2011 [facility] [place] [facility] [address] [facility] [id number] [place] [address]- 9006 14 Sep, 2011 [facility] [place] [facility] [address] [facility] [id number] [place] [address]- 5418 13 Sep, 2011 [facility] [address] [id number] [place] [address]- 2976 10 Sep, 2011 [facility] [place] [facility] [address] [id number] [place] [address]- 9386 06 Sep, 2011 [facility] [place] [facility] [address] [id number] [place] [address]- 2416 03 Sep, 2011 [facility] [place] [facility] [address] [id number] [place] [address]- 6975 Sep, [facility] [address] [id number] [place] [address]- 0247 30 Aug, 2011 [facility] [place] [facility] [address] [id number] [place] [address]- 1217 Aug, [facility] [place] [facility] [address] [id number] [place] [address]- 7436 Aug, [facility] [place] [facility] [address] [id number] [place] [address]- 3862 24 Aug, 2011 [facility] [place] [facility] [address] [id number] [place] [address]- 3362 Aug, [facility] [place] [facility] [address] [id number] [place] [address]- 1286 17 Aug, 2011 [facility] [place] [facility] [address] [id number] [place] [address]- 3511 17 Aug, 2011 [facility] [place] [facility] [address] [id number], [place] [address]- 4561 17 Aug, 2011 [facility] [place] [facility] [address] [id number] [place] [address]- 8782 16 Aug, 2011 [facility] [place] [facility] [address] [id number] [place] [address]- 9257 13 Aug, 2011 [facility] [place] [facility] [address] [id number] [place] [address]- 0332 11 Aug, 2011 [facility] [place] [facility] [address] [id number] [place] [address]- 0611 10 Aug, 2011 [facility] [address] [id number] [place] [address]- 7718 Aug, [facility] [address] [id number] [place] [address]- 4236 Aug, [facility] [address] [id number] [place] [address]- 1536 Aug, [facility] [address] [id number] [place] [address]- 0449 Aug, [facility] [address] [id number] [place] [address]- 4639 Aug, [facility] [address] [id number] [place] [address]- 9186 30 Jul, 2011 [facility] [address] [id number] [place] [address] 28 Jul, 2011 [facility] [address] [id number] [place] [address] 27 Jul, 2011 [facility] [address] [id number] [place] [address] 23 Jul, 2011 [facility] [address] [id number] [place] [address] Jul, [facility] [address] [id number] [place] [address] 19 Jul, 2011 [facility] [place] [facility] [address] [id number] [place] [address] 17 Jul, 2011 [facility] [address] [id number] [place] [address] 16 Jul, 2011 [facility] [place] [facility] [address] [id number] [place] [address] 07 Jul, 2011 [facility] [address] [id number] [place] [address] 07 Jul, 2011 [facility] [address] [facility] [id number] [address] Jul, [facility] [address] [facility] [id number], [place] [address] Jun, [facility] [address] [facility] [id number], [place] [address] Jun, [facility] [address] [facility] [id number], [place] [address] Jun, IMMUNIZATIONS No Known Immunizations SOCIAL HISTORY Never Assessed REASON FOR VISIT Controlled Med Refill 12/24/17 PLAN OF CARE VITAL SIGNS MEDICATIONS Medication Instructions Dosage Frequency Start Date End Date Duration Status Ativan 0.5 MG Orally Once a day 1 tablet as needed 24h December, 28 days Active Oxycodone HCl 5 MG Orally Once a day 1 tablet at bedtime 24h December, 28 days Active RESULTS No [...]
--- NOTE | 2018-08-05 03:20 | ED GI ---
General Stated Complaint: DEHYDRATION Source of Information: Patient, Family Exam Limitations: No Limitations History of Present Illness Date Seen by Provider: Aug 05, 2018 Time Seen by Provider: 03:00 Initial Comments Patient presents to ER by EMS with chief complaint that she's been having nausea vomiting and vomiting up blood for the past day and a half now. She started having some abdominal pain in her mid epigastric region down to her umbilicus. 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 She gets scoped up at by her GI doctor and is followed by Judy Fine at [facility]. She gets labs frequently and says of it all been normal recently. She's had a normal bowel movement earlier today. She still having some nausea EMS was unable to start a IV. She has a fever of 100.6. She has a history of a vertical as well as tubal ligation and had a ovary removed but still has her uterus. Allergies and Home Medications Allergies Coded Allergies: Sulfa (Sulfonamide Antibiotics) (Unverified Allergy, Intermediate, HIVES, 08/27/12) Home Medications Ciprofloxacin HCl 500 Mg Tablet, 500 MG PO BID Prescribed by: YARIEL PETERSON on 10/02/16 0619 Folic Acid 1 Mg Tab, 2 MG PO DAILY, (Reported) Nadolol 20 Mg Tablet, 0.5 EACH PO DAILY, (Reported) Ondansetron 4 Mg Tab.rapdis, 4 MG SL Q4H Prescribed by: YARIEL PETERSON on 10/02/16 014 Polyethylene Glycol 3350 119 Gm Powder, 17 GM PO TID One capful in 8-12 ounces of water or juice Prescribed by: YARIEL PETERSON on 10/02/16 014 Spironolactone 50 Mg Tablet, 50 MG PO BID Prescribed by: STU YAN on 07/25/14 4543 Patient Home Medication List Home Medication List Reviewed: Yes Review of Systems Review of Systems Constitutional: No chills, No diaphoresis; fever, malaise EENTM: No Blurred Vision, No Double Vision Respiratory: Denies Cough, Denies Shortness of Air, Denies SOA at Rest, Denies Wheezing Cardiovascular: Denies Chest Pain, Denies Edema Gastrointestinal: See HPI; Denies Abdomen Distended; Abdominal Pain; Denies Constipated, Denies Diarrhea; Nausea, Poor Appetite, Poor Fluid Intake, Vomiting Genitourinary: Denies Burning, Denies Discharge Musculoskeletal: No back pain, No joint pain Skin: No dryness, No pruritus, No rash Psychiatric/Neurological: Denies Headache, Denies Numbness, Denies Paresthesia Past [id number] Hx Patient Social History Alcohol Use: Past History (quit 2010) Recreational Drug Use: No Smoking Status: Former Smoker Type Used: Cigarettes (former) Recent Foreign Travel: No Contact w/Someone Who Travel: No Recent Hopitalizations: No Immunizations Up To Date Tetanus Booster (TDap): Less than 5yrs Date of Pneumonia Vaccine: May 13, 2013 Date of Influenza Vaccine: Jun 15, 2014 Seasonal Allergies Seasonal Allergies: No Past Medical History Section, Oophorectomy COPD 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 Disorders: No [employer] History: Menopausal Sexually Transmitted Disease: No Gastrointestinal Bleed, Esophageal Varices, Ulcer, Cirrhosis Loss of Vision: Denies Hearing Impairment: Denies Depression Family Medical History No Pertinent Family Hx Physical Exam Vital Signs Vital Signs - First Documented 08/05/18 02:57 Temp 100.6 Pulse 76 Resp 19 B/P (MAP) 96/52 (67) O2 Delivery Room Air Capillary Refill : Height/Weight/BMI Height: 5'2" Weight: 102lbs. 0oz. 46.475431kj; 19.93 BMI Method:Stated General Appearance: moderate distress, thin HEENT: PERRL/EOMI, pharynx normal (oropharynx is dry) Neck: non-tender, full range of motion, normal inspection Respiratory: chest non-tender, lungs clear, normal breath sounds, no respiratory distress, no accessory muscle use Cardiovascular: normal peripheral pulses, regular rate, rhythm, no edema Peripheral Pulses: 2+ Dorsalis Pedis (R), 2+ Left Dors-Pedis (L) Gastrointestinal: normal bowel sounds (active bowel sounds), soft, no organomegaly, tenderness (diffuse upper left and right Quadrant tenderness.), other (negative for Santoyo sign) Extremities: normal range of motion, non-tender, normal inspection, no pedal edema, normal capillary refill Neurologic/Psychiatric: alert, normal mood/affect, oriented x 3 Skin: normal color, warm/dry Progress/Results/Core Measures Results/Orders Lab Results Laboratory Tests Test 08/05/18 03:05 Range/Units White Blood Count 7.4 4.3-11.0 10^3/uL Red Blood Count 2.92 L 4.35-5.85 10^6/uL Hemoglobin 8.3 L 11.5-16.0 G/DL Hematocrit 25 L 35-52 % Mean Corpuscular Volume 85 80-99 FL Mean Corpuscular Hemoglobin 28 25-34 PG Mean Corpuscular Hemoglobin Concent 34 32-36 G/DL Red Cell Distribution Width 14.9 H 10.0-14.5 % Platelet Count 102 L 130-400 10^3/uL Mean Platelet Volume 9.6 7.4-10.4 FL Neutrophils (%) (Auto) 89 H 42-75 % Lymphocytes (%) (Auto) 9 L 12-44 % Monocytes (%) (Auto) 1 0-12 % Eosinophils (%) (Auto) 1 0-10 % Basophils (%) (Auto) 0 0-10 % Neutrophils # (Auto) 6.6 1.8-7.8 X 10^3 Lymphocytes # (Auto) 0.6 L 1.0-4.0 X 10^3 Monocytes # (Auto) 0.1 0.0-1.0 X 10^3 Eosinophils # (Auto) 0.1 0.0-0.3 10^3/uL Basophils # (Auto) 0.0 0.0-0.1 10^3/uL Neutrophils % (Manual) 82 % Lymphocytes % (Manual) 9 % Monocytes % (Manual) 1 % Eosinophils % (Manual) 2 % Basophils % (Manual) 1 % Band Neutrophils 4 % Reactive Lymphocytes 1 % Polychromasia SLIGHT Poikilocytosis SLIGHT Anisocytosis SLIGHT Macrocytosis SLIGHT Elliptocytes SLIGHT Rouleau SLIGHT Prothrombin Time 15.6 H 12.2-14.7 SEC INR Comment 1.2 0.8-1.4 Activated Partial Thromboplast Time 27 24-35 SEC Sodium Level 138 135-145 MMOL/L Potassium Level 4.0 3.6-5.0 MMOL/L Chloride Level 107 98-107 MMOL/L Carbon Dioxide Level 20 L 21-32 MMOL/L Anion Gap 11 5-14 MMOL/L Blood Urea Nitrogen 33 H 7-18 MG/DL Creatinine 0.77 0.60-1.30 MG/DL Estimat Glomerular Filtration Rate > 60 BUN/Creatinine Ratio 43 Glucose Level 126 H 70-105 MG/DL Calcium Level 9.0 8.5-10.1 MG/DL Corrected Calcium 9.2 8.5-10.1 MG/DL Magnesium Level 1.8 1.8-2.4 MG/DL Total Bilirubin 1.1 H 0.1-1.0 MG/DL Aspartate Amino Transf (AST/SGOT) 33 5-34 U/L Alanine Aminotransferase (ALT/SGPT) 30 0-55 U/L Alkaline Phosphatase 70 40-136 U/L Total Protein 6.3 L 6.4-8.2 GM/DL Albumin 3.7 3.2-4.5 GM/DL Lipase 48 8-78 U/L Micro Results Microbiology 08/05/18 Influenza Types A,B Antigen (ULISES) - Final, Complete My Orders Orders - YADIRA VINES Saline Lock/Iv-Start (08/05/18 03:05) Ns Iv 1000 Ml (Sodium Chloride 0.9%) (08/05/18 03:05) Cbc With Automated Diff (08/05/18 03:05) Comprehensive Metabolic Panel (08/05/18 03:05) Lipase (08/05/18 03:05) Magnesium (08/05/18 03:05) Protime With Inr (08/05/18 03:05) Partial Thromboplastin Time (08/05/18 03:05) Ua Culture If Indicated (08/05/18 03:05) Influenza A And B Antigens (08/05/18 03:05) Chest 1 View, Ap/Pa Only (08/05/18 03:05) Ondansetron Injection (Zofran Injectio (08/05/18 03:15) Saline Lock/Iv-Start (08/05/18 03:05) Pantoprazole Injection (Protonix Injecti (08/05/18 03:15) Fentanyl Injection (Sublimaze Injection (08/05/18 03:15) Manual Differential (08/05/18 03:05) Type And Screen (08/05/18 03:36) Saline Lock/Iv-Start (08/05/18 03:44) Ns Iv 1000 Ml (Sodium Chloride 0.9%) (08/05/18 03:44) Ketorolac Injection (Toradol Injection) (08/05/18 04:00) Medications Given in ED Current Medications Medications Dose Ordered Sig/Nabor Route Start Time Stop Time Status Last Admin Dose Admin Fentanyl Citrate 50 mcg ONCE ONCE IVP 08/05/18 03:15 08/05/18 03:16 DC 08/05/18 03:23 50 MCG Ondansetron HCl 4 mg ONCE ONCE IVP 08/05/18 03:15 08/05/18 03:16 DC 08/05/18 03:23 4 MG Pantoprazole 40 mg ONCE ONCE IV 08/05/18 03:15 08/05/18 03:16 DC 08/05/18 03:23 40 MG Vital Signs/I&O 08/05/18 02:57 Temp 100.6 Pulse 76 Resp 19 B/P (MAP) 96/52 (67) O2 Delivery Room Air Progress Progress Note #1: Time: 03:21 Progress Note Pantoprazole, suspect possible upper GI bleed versus since she has a fever as could be just gastroenteritis that's irritated her esophageal varices. Nausea medicine and fentanyl. We'll get a chest x-ray to look at her mediastinum. Start with a liter of IV fluids. Labs, urinalysis. Lipase. Progress Note #2: Time: 03:36 Progress Note Hemoglobin 6 months ago was 12.4 now it's 8. We'll going get a type and screen and plan an inpatient workup. We'll use Toradol for her pain and fever since the fentanyl did not help much and her blood pressures on the soft side. It's holding right around 90s. We'll also increase her fluid volume bolus from 20 up to 30 cc/kg. Type and Screen. Repeat H&H in a few hours to gauge the trajectory of the anemia. Diagnostic Imaging Diagonstic Imaging: Xray Plain Films/CT/US/NM/MRI: chest (1v) Comments No acute osseous abdomen mildly's. No acute cardio pulmonary processes. Mediastinum is unremarkable. Reviewed: Reviewed by Me Departure Communication (Admissions) Time/Spoke to Admitting Phy: 03:45 Discussed case lab imaging findings with Dr. Reynaga. Urinalysis is still pending. Type and screen, fluid boluses, she will see the patient the morning sickness to consult surgery. Because of the fever we suspect viral gastroenteritis. Impression Primary Impression: Viral gastroenteritis Additional Impressions: Hematemesis Qualified Codes: K92.0 - Hematemesis History of esophageal varices with bleeding Anemia Qualified Codes: D64.9 - Anemia, unspecified Disposition: ADMITTED INPATIENT Condition: Improved Admissions Decision to Admit Reason: Admit from ER (General) Decision to Admit/Date: Aug 05, 2018 Time/Decision to Admit Time: 03:55 Departure-Patient Inst. Referrals: MIKE AGUILAR DO (PCP) Primary Care Physician JUDY FINE (Family) Primary Care Physician YADIRA VINES Aug 05, 2018 03:20
--- OUTSIDE RECORDS SUMMARY | 2018-08-05 03:20 | XMS REPORT ---
Author Author HEATHER FINE Organization [facility] Address [address] [place] [address] Care Team Providers Care General House Worker Name Role Phone HEATHER FINE Unavailable PROBLEMS Type Condition ICD9-CM Code AVR44-UF Code Onset Dates Condition Status SNOMED Code Problem Unspecified cirrhosis of liver K74.60 Active 694514080 Problem Lymphocytosis D72.820 Active 40872772 Problem Secondary esophageal varices with bleeding I85.11 Active 92733194 Problem Anxiety F41.9 Active 12154773 Problem Asthma J45.909 Active 527366841 Problem Chronic back pain M54.9 Active 289820315 Problem Dysthymia F34.1 Active 86551115 Problem Thrombocytosis D47.3 Active 3973899 Problem Splenomegaly R16.1 Active 93168534 Problem 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 Active 320492191 Problem History of hepatitis C Z86.19 Active [id number] ALLERGIES No Information ENCOUNTERS Encounter Location Date Diagnosis [place] [address], [place] [address] Feb, Chronic back pain M54.9 ; Anxiety F41.9 and Dysuria R30.0 [facility] [address], [place] [address] Feb, [facility] [id number] [place] [address] 19452- 2967 Feb, Anxiety F41.9 [place] [id number] [place] [address] 74617- 1648 Jan, [facility] [address], [place] [address] 5[address] Jan, Chronic back pain M54.9 and Anxiety F41.9 [place] [id number] [place] [address] 26065- 8717 December, Chronic back pain M54.9 and Anxiety F41.9 [facility] [id number] [place] [address] 67051- 7694 Nov, Chronic back pain M54.9 and Anxiety F41.9 [facility] [id number] [place] [address] 80910- 7676 Oct, Chronic back pain M54.9 and Anxiety F41.9 [facility] [id number] [place] [address] 00332- 5959 Oct, [facility] [id number] [place] [address] 74746- 0363 Sep, Chronic back pain M54.9 ; Anxiety F41.9 ; Pain of left leg M79.605 and Pain in right leg M79.604 [facility] [id number] [place] [address] 33616- 2195 Sep, Anxiety F41.9 and Chronic back pain M54.9 [facility] [id number] [place] [address] 73849- 0874 Sep, [facility] [id number] [place] [address] 42681- 0285 Aug, Anxiety F41.9 [facility] [id number] [place] [address] 16482- 6919 Jul, Anxiety F41.9 [facility] [id number] [place] [address] 95793- 7656 Jul, [facility] [id number] [place] [address] 28587- 4642 Jul, Viral syndrome B34.9 ; Chronic back pain M54.9 and Dysuria R30.0 [facility] [id number] [place] [address] 05016- 5902 Jun, [facility] [address], [place] [address]- 2270 Jun, Anxiety F41.9 [facility] [id number] [place] [address] 41732 -0986 16 Jun, 2017 Dysuria R30.0 and Acute cystitis without hematuria N30.00 [facility] [id number] [place] [address] 28101- 1345 Jun, [facility] [id number] [place] [address] 95083- 1069 May, Anxiety F41.9 [facility] [id number] [place] [address] 15088- 1540 May, Anxiety F41.9 [facility] [id number] [place] [address] 03228- 1446 Apr, [facility] [id number] [place] [address] 77942- 3077 Apr, Chronic back pain M54.9 and Anxiety F41.9 [facility] [id number] [place] [address] 90354- 2590 Mar, [facility] [id number] [place] [address] 47717- 5291 Mar, [facility] [id number] [place] [address] 13166- 0926 Mar, Well woman exam Z01.419 ; Cervical cancer screening Z12.4 ; Breast cancer screening Z12.31 and Colon cancer screening Z12.11 [facility] [id number] [place] [address] 02973- 6228 Mar, Chronic back pain M54.9 and Anxiety F41.9 [facility] [id number] [place] [address] 41518- 2192 Mar, [facility] [id number] [place] [address] 29640- 5035 Feb, Chronic back pain M54.9 and Anxiety F41.9 [facility] [address], [place] [address]- 1639 Feb, [facility] [id number] [place] [address] 61695- 4136 Feb, [facility] [id number] [place] [address] 59463- 2173 Jan, Chronic back pain M54.9 and Anxiety F41.9 [facility] [id number] [place] [address] 04901- 7713 Jan, [facility] [id number] [place] [address] 90033- 2708 Jan, [facility] [id number] [place] [address] 03269- 9415 December, Chronic back pain M54.9 and Anxiety F41.9 [facility] [id number] [place] [address] 12969- 0275 Nov, Chronic back pain M54.9 and Anxiety F41.9 [facility] [id number] [place] [address] 15987- 5321 Oct, Chronic back pain M54.9 and Anxiety F41.9 [facility] [id number] [place] [address] 89108- 5639 Oct, Chronic back pain M54.9 [facility] [id number] [place] [address] 35328- 6960 Sep, Anxiety F41.9 and Chronic back pain M54.9 [facility] [id number] [place] [address] 04223- 7902 Aug, Anxiety F41.9 and Chronic back pain M54.9 [facility] [id number] [place] [address] 34747- 7916 Aug, [facility] [id number] [place] [address] 17094- 2546 Jul, Chronic back pain M54.9 and Anxiety F41.9 [facility] [id number] [place] [address] 49255- 0496 Jul, Anxiety F41.9 and Chronic back pain M54.9 [facility] [address] [place] [address] Jul, [facility] [id number] [place] [address] 17107- 2196 Jul, Anxiety F41.9 [facility] [id number] [place] [address] 30383 2548 Jul, Anxiety F41.9 and Dysuria R30.0 [facility] [id number] [place] [address] 96455- 2239 Jul, Chronic back pain M54.9 and Anxiety F41.9 [facility] [id number] [place] [address] 54466- 5235 Jun, Chronic back pain M54.9 [facility] [id number] [place] [address] 59964 2547 Jun, Chronic back pain M54.9 [facility] [id number] [place] [address] 17384- 4591 May, Anxiety F41.9 [facility] [id number] [place] [address] 88211 254 May, Chronic back pain M54.9 [facility] [id number] [place] [address] 51932 2548 Apr, [facility] [id number] [place] [address] 48498 2547 Apr, [facility] [id number] [place] [address] 78904 2546 Apr, [facility] [id number] [place] [address] 93177- 9624 Apr, Chronic back pain M54.9 [facility] [id number] [place] [address] 72354 2546 Mar, Chronic back pain M54.9 [facility] [id number] [place] [address] 42665 2546 Feb, Grief F43.20 [facility] [id number] [place] [address] 73018 2546 Feb, Chronic back pain M54.9 and Anxiety F41.9 [facility] [id number] [place] [address] 90530- 4426 Feb, Chronic back pain M54.9 [facility] [id number] [place] [address] 10848- 7526 Jan, Chronic back pain M54.9 [facility] [id number] [place] [address] 45401- 7326 December, [facility] [id number] [place] [address] 41054 2544 December, Grief F43.20 [facility] [id number] [place] [address] 62523 2546 Nov, [facility] [id number] [place] [address] 89965 2547 Oct, Cervicalgia M54.2 ; Secondary esophageal varices with bleeding I85.11 and Mouth pain K13.79 [facility] [id number] [place] [address] 86979- 2304 Oct, [facility] [id number] [place] [address] 71016 2546 Oct, [facility] [id number] [place] [address] 99338 2546 Sep, [facility] [id number] [place] [address] 97738- 5826 Sep, Acute maxillary sinusitis, recurrence not specified J01.00 [facility] [address], [place] [address]- 9452 Aug, [facility] [id number] [place] [address] 59353- 6536 Aug, [facility] [id number] [place] [address] 80087- 5935 Aug, Dysuria R30.0 and Chronic back pain M54.9 [facility] [id number] [place] [address] 31980- 6713 Jul, [facility] [id number] [place] [address] 22427- 5648 Jul, [facility] [id number] [place] [address] 04970- 0764 Jul, [facility] [address] 95343- 2690 Jul, Chronic back pain M54.9 [facility] [id number] [place] [address] 38920- 0102 Jul, Dysthymia F34.1 and Chronic back pain M54.9 [facility] [id number] [place] [address] 10631- 2418 Jun, [facility] [id number] [place] [address] 16974- 2518 Jun, [facility] [id number] [place] [address] 94770- 4540 May, [facility] [id number] [place] [address] 62637- 9167 May, [facility] [id number] [place] [address] 59933- 6583 May, [facility] [id number] [place] [address] 60185- 0173 May, Encounter for immunization Z23 [facility] [address] [id number] [place] [address]- 3487 15 Apr, 2015 [facility] [address] [id number] [place] [address]- 2752 10 Apr, 2015 [facility] [address] [id number] [place] [address]- 5340 Mar, [facility] [id number] [place] [address], [place] [address]- 3178 Mar, Back pain 724.5 [facility] [address] [id number] [place] [address]- 1890 Mar, Cough 786.2 and Back pain 724.5 [facility] [address] [id number] [place] [address]- 2335 Mar, [facility] [id number] [place] [address] 68477- 1982 Mar, [facility] [id number] [place] [address]- 7472 December, [facility] [id number] [place] [address]- 9130 December, [facility] [id number] [place] [address]- 7744 Nov, [facility] [address], [place] [address]- 2249 Nov, [facility] [id number] [address]- 6985 Oct, [facility] [address] [id number] [place] [address]- 1015 Oct, [facility] [place] [facility] [address] [id number], [place] [address]- 5249 13 Sep, 2014 [facility] [place] [facility] [id number] [place] [address]- 6994 Sep, [facility] [place] [facility] [address] [id number] [place] [address]- 7740 12 Sep, 2014 [facility] [place] [facility] [address] [id number] [place] [address]- 1630 Sep, 2014 [facility] [place] [facility] [address] [id number] [place]- 6568 Sep, 2014 [facility] [place] [facility] [address] [id number] [place] [address]- 9381 Sep, 2014 [facility] [place] [facility] [address] [id number] [place] [address]- 4038 Sep, 2014 [facility] [place] [facility] [address] [id number] [place] [address]- 9606 Sep, [facility] [place] [facility] [address] [id number] [place] [address]- 1560 Aug, [facility] [place] [facility] [address] [id number] [place] [address]- 3669 Aug, [facility] [place] [facility] [address] [id number] [place] [address]- 3859 Aug, [facility] [place] [facility] [address] [id number] [place] [address]- 6577 Aug, [facility] [place] [facility] [address] [id number] [place] [address]- 1572 Aug, [facility] [place] [facility] [address] [id number] [place] [address]- 4502 Aug, [facility] [place] [facility] [address] [id number] [place] [address]- 6495 Aug, [facility] [place] [facility] [address] [id number] [place] [address]- 7754 Jul, [facility] [place] [facility] [address] [id number] [place] 2632 Jul, [facility] [place] [facility] [address] [id number], [place] [address]- 9013 Jul, [facility] [place] [facility] [address] [id number] [place] [address]- 1778 Jul, [facility] [place] [facility] [address] [id number] [place] 0582 Jul, [facility] [place] [facility] [address] [id number] [place] [address]- 0420 Jul, [facility] [place] [facility] [address] [id number] [place] [address]- 5078 Jul, [facility] [place] [facility] [address] [id number] [place] [address]- 0857 Jul, [facility] [place] [facility] [address] [id number] [place] [address]- 4965 Jun, [facility] [place] [facility] [address] [id number] [place] [address]- 1820 Jun, [facility] [place] [facility] [address] [id number] [place] [address]- 8015 Jun, [facility] [place] [facility] [address] [id number] [place] [address]- 6775 Jun, [facility] [place] [facility] [address] [id number] [place] [address]- 5349 Jun, [facility] [place] [facility] [address] [id number], [place] [address]- 8912 Jun, [facility] [place] [facility] [address] [id number], [place] [address]- 4446 Jun, [facility] [place] [facility] [address] [id number] [place] [address]- 2958 May, [facility] [place] [facility] [address] [id number] [place] [address]- 6274 May, [facility] [place] [facility] [address] [id number] [place] [address]- 9275 May, [facility] [place] [facility] [address] [id number] [place] [address]- 6083 28 May, 2014 [facility] [place] [facility] [address] [id number] [place] [address]- 9930 2014 [facility] [place] [facility] [address] [id number] [place] [address]- 5937 2014 [facility] [place] [facility] [address] [id number] [place] [address]- 2877 2013 [facility] [place] [facility] [address] [id number] [place] [address]- 2696 2014 [facility] [place] [facility] [address] [id number] [place] [address]- 1876 May, [facility] [place] [facility] [address] [id number] [place] [address]- 3818 13 May, 2014 [facility] [place] [facility] [address] [id number] [place] [address]- 4746 10 May, 2014 [facility] [place] [facility] [address] [id number] [place] [address]- 2663 10 May, 2014 [facility] [place] [facility] [address] [id number] [place] [address]- 0985 08 May, 2014 [facility] [place] [facility] [address] [id number] [place] [address]- 7514 08 May, 2014 [facility] [place] [facility] [address] [id number] [place] [address]- 0783 26 Apr, 2013 [facility] [place] [facility] [address] [id number] [place] [address]- 0191 23 Apr, 2013 [facility] [place] [facility] [address] [id number] [place] [address]- 6172 23 Apr, 2013 [facility] [place] [facility] [address] [id number] [place] [address]- 6645 23 Apr, 2013 [facility] [place] [facility] [address] [id number] [place] [address]- 4857 Apr, [facility] [place] [facility] [address] [id number] [place] [address]- 7089 Apr, [facility] [place] [facility] [address] [id number] [place] [address]- 6348 Apr, [facility] [place] [facility] [address] [id number] [place] [address]- 0111 Mar, [facility] [place] [facility] [address] [id number] [place] [address]- 1284 Mar, [facility] [place] [facility] [address] [id number] [place] [address]- 1470 Mar, [facility] [place] [facility] [address] [id number] [place] [address]- 3670 Mar, [facility] [place] [facility] [address] [id number] [place] [address]- 6577 Mar, [facility] [place] [facility] [address] [id number] [place] [address]- 5529 Mar, [facility] [place] [facility] [address] [id number] [place] [address]- 6380 Feb, [facility] [place] [facility] [address] [id number] [place] [address]- 5956 Feb, [facility] [place] [facility] [address] [id number] [place] [address]- 6657 Feb, [facility] [place] [facility] [address] [id number] [place] [address]- 1367 Feb, [facility] [place] [facility] [address] [id number] [place] [address]- 2550 Feb, [facility] [place] [facility] [address] [id number] [place] [address]- 2416 Feb, [facility] [place] [facility] [address] [id number] [place] [address]- 6777 Feb, [facility] [place] [facility] [address] [id number] [place] [address]- 8691 Feb, [facility] [place] [facility] [address] [id number] [place] [address]- 0819 Jan, [facility] [place] [facility] [address] [id number] [place] [address]- 2146 Jan, [facility] [place] [facility] [address] [id number] [place] [address]- 4556 December, [facility] [place] [facility] [address] [id number] [place] [address]- 0685 December, [facility] [place] [facility] [address] [id number] [place] [address]- 0186 December, [facility] [place] [facility] [address] [id number] [place] [address]- 4376 December, [facility] [place] [facility] [address] [id number] [place] [address]- 4216 December, [facility] [place] [facility] [address] [id number] [place] [address]- 9729 December, [facility] [place] [facility] [address] [id number] [place] [address]- 1413 December, [facility] [place] [facility] [address] [id number] [place] [address] December, [facility] [place] [facility] [address] [id number] [place] [address] December, [facility] [place] [facility] [address] [id number] [place] [address] December, [facility] [place] [facility] [address] [id number] [place] [address] December, [facility] [place] [facility] [address] [id number] [place] [address] December, [facility] [place] [facility] [address] [id number] [place] [address] Nov, [facility] [place] [facility] [address] [id number] [place] [address] Nov, [facility] [place] [facility] [address] [id number] [place] [address] Nov, [facility] [place] [facility] [address] [id number] [place] [address] Nov, [facility] [place] [facility] [address] [id number] [place] [address] Nov, [facility] [place] [facility] [address] [id number] [place] [address] Nov, [facility] [place] [facility] [address] [id number] [place] [address] Nov, [facility] [place] [facility] [address] [id number] [place] [address] Nov, [facility] [place] [facility] [address] [id number] [place] [address] Nov, [facility] [place] [facility] [address] [id number] [place] [address] Nov, [facility] [place] [facility] [address] [id number] [place] [address]- [address] Nov, [facility] [place] [facility] [address] [id number] [place] [address] Nov, [facility] [place] [facility] [address] [id number] [place] [address] Nov, [facility] [place] [facility] [address] [id number] [place] [address] Oct, [facility] [place] [facility] [address] [id number] [place] [address] Oct, [facility] [place] [facility] [address] [id number] [place] [address] Sep, [facility] [place] [facility] [address] [id number] [place] [address] Sep, [facility] [place] [facility] [address] [id number] [place] [address] Sep, [facility] [place] [facility] [address] [id number] [place] [address] Sep, [facility] [place] [facility] [address] [id number] [place] [address] Sep, [facility] [place] [facility] [address] [id number] [place] [address] Sep, [facility] [place] [facility] [address] [id number] [place] [address] Sep, [facility] [place] [facility] [address] [id number] [place] [address]- [address] 18 Sep, 2013 [facility] [place] [facility] [address] [id number] [place] [address] Sep, [facility] [place] [facility] [address] [id number] [place] [address] Sep, [facility] [place] [facility] [address] [id number] [place] [address] Sep, [facility] [place] [facility] [address] [id number] [place] [address] Sep, [facility] [place] [facility] [address] [id number] [place] [address] Aug, [facility] [place] [facility] [address] [id number] [place] [address] Aug, [facility] [place] [facility] [address] [id number] [place] [address] Aug, [facility] [place] [facility] [address] [id number] [place] [address] Aug, [facility] [place] [facility] [address] [id number] [place] [address] Aug, [facility] [place] [facility] [address] [id number] [place] [address] Aug, [facility] [place] [facility] [address] [id number] [place] [address] Aug, [facility] [place] [facility] [address] [id number] [place] [address] Aug, [facility] [place] [facility] [address] [id number] [place] [address]- [address] Aug, [facility] [place] [facility] [address] [id number] [place] [address]- [address] Aug, [facility] [place] [facility] [address] [id number] [place] [address]- [address] Aug, [facility] [place] [facility] [address] [id number] [place] [address] Aug, [facility] [place] [facility] [address] [id number] [place] [address] Aug, [facility] [place] [facility] [address] [id number] [place] [address] Aug, [facility] [place] [facility] [address] [id number] [place] [address] Aug, [facility] [place] [facility] [address] [id number] [place] [address] Aug, [facility] [place] [facility] [address] [id number], [place] [address] Aug, [facility] [place] [facility] [address] [id number] [place] [address] 6373 Aug, [facility] [place] [facility] [address] [id number] [place] [address]- 7086 Aug, [facility] [place] [facility] [address] [id number] [place] [address] 4813 Aug, [facility] [place] [facility] [address] [id number], [place] [address] Aug, [facility] [address] [id number] [place] [address]- 5722 Aug, [facility] [place] [facility] [address] [id number] [place] [address]- 7731 Aug, [facility] [address] [id number] [place] [address]- 2895 Jul, [facility] [place] [facility] [address] [id number] [place] [address] 5862 Jul, [facility] [address] [id number] [place] [address] 8638 Jul, [facility] [place] [facility] [address] [id number] [place] [address]- 5572 Jul, [facility] [address] [id number] [place] [address]- 2250 Jul, [facility] [place] [facility] [address] [id number] [place] [address]- 2739 Jul, [facility] [address] [id number] [place] [address]- 5384 Jun, [facility] [place] [facility] [address] [id number] [place] [address]- 6308 Jun, [facility] [place] [facility] [address] [id number], [place] [address]- 6529 Jun, [facility] [place] [facility] [address] [id number], [place] [address]- 6783 Jun, [facility] [place] [facility] [address] [id number] [place] [address]- 7775 Jun, [facility] [place] [facility] [address] [id number] [place] [address]- 5305 Jun, [facility] [place] [facility] [address] [id number] [place] [address]- 5683 Jun, [facility] [place] [facility] [address] [id number] [place] [address]- 4601 Jun, [facility] [place] [facility] [address] [id number] [place] [address]- 0115 Jun, [facility] [place] [facility] [address] [id number] [place] [address]- 3812 Jun, [facility] [place] [facility] [address] [id number] [place] [address]- 5370 May, 2012 [facility] [place] [facility] [address] [id number] [place] [address]- 9232 May, 2012 [facility] [place] [facility] [address] [id number] [place] [address]- 8565 May, [facility] [place] [facility] [address] [id number] [place] [address]- 5223 May, [facility] [place] [facility] [address] [id number] [place] [address]- 7999 May, [facility] [place] [facility] [address] [id number] [place] [address]- 8469 May, [facility] [place] [facility] [address] [id number] [place] [address]- 4936 May, [facility] [place] [facility] [address] [id number] [place] [address]- 0210 May, [facility] [place] [facility] [address] [id number] [place] [address]- 9823 May, [facility] [place] [facility] [address] [id number] [place] [address]- 1145 May, [facility] [place] [facility] [address] [id number] [place] [address]- 6317 17 May, 2013 [facility] [place] [facility] [address] [id number] [place] [address]- 8426 May, [facility] [place] [facility] [address] [id number] [place] [address]- 9116 May, [facility] [place] [facility] [address] [id number] [place] [address]- 8372 May, [facility] [place] [facility] [address] [id number] [place] [address]- 9316 May, [facility] [place] [facility] [address] [id number] [place] [address]- 4586 Apr, [facility] [place] [facility] [address] [id number] [place] [address]- 2335 Apr, [facility] [place] [facility] [address] [id number] [place] [address]- 0497 Apr, [facility] [place] [facility] [address] [id number] [place] [address]- 3887 Mar, [facility] [place] [facility] [address] [id number] [place] [address]- 0446 Mar, [facility] [place] [facility] [address] [id number] [place] [address]- 5199 Mar, [facility] [place] [facility] [address] [id number] [place] [address]- 5288 Mar, [facility] [place] [facility] [address] [id number] [place] [address]- 4237 Mar, [facility] [place] [facility] [address] [id number] [place] [address]- 9311 Mar, [facility] [place] [facility] [address] [id number], [place] [address]- 1614 Feb, [facility] [place] [facility] [address] [id number] [place] [address]- 6058 Feb, [facility] [place] [facility] [address] [id number] [place] [address]- 3065 Feb, [facility] [place] [facility] [address] [id number] [place] [address]- 9082 Feb, [facility] [place] [facility] [address] [id number] [place] [address]- 0638 Feb, [facility] [address] [id number] [place] [address]- 7162 Feb, [facility] [place] [facility] [address] [id number] [place] [address]- 5598 Feb, [facility] [place] [facility] [address] [id number] [place] [address]- 9407 Feb, [facility] [place] [facility] [address] [id number] [place] [address]- 3527 Feb, [facility] [place] [facility] [address] [id number] [place] [address]- 2094 Feb, [facility] [place] [facility] [address] [id number] [place] [address]- 9258 Jan, [facility] [address] [id number] [place] [address]- 9827 Jan, [facility] [place] [facility] [address] [id number] [place] [address]- 9720 Jan, [facility] [place] [facility] [address] [id number] [place] [address]- 7751 Jan, [facility] [place] [facility] [address] [id number] [place] [address]- 4758 December, [facility] [place] [facility] [address] [id number] [place] [address]- 2966 December, [facility] [place] [facility] [address] [id number] [place] [address]- 7861 December, [facility] [place] [facility] [address] [id number] [place] [address]- 1560 Nov, [facility] [place] [facility] [address] [id number] [place] [address]- 1001 Nov, [facility] [place] [facility] [address] [id number] [place] [address]- 4081 Nov, [facility] [place] [facility] [address] [id number] [place] [address]- 7546 Nov, [facility] [address] [id number] [place] [address]- 1316 Nov, [facility] [place] [facility] [address] [id number] [place] [address]- 7586 Nov, [facility] [address] [id number] [place] [address]- 3543 Oct, [facility] [address] [id number] [place] [address]- 9035 Oct, [facility] [address] [id number] [place] [address]- 7439 Oct, [facility] [address] [id number] [place] [address]- 3831 Sep, [facility] [address] [id number] [place] [address]- 3890 Sep, [facility] [address] [id number] [place] [address]- 5316 Sep, [facility] [address] [id number] [place] [address]- 6276 Aug, [facility] [address] [id number] [place] [address]- 4657 Aug, [facility] [address] [id number] [place] [address]- 1902 Aug, [facility] [place] [facility] [address] [id number] [place] [address]- 0150 Aug, [facility] [place] [facility] [address] [id number] [place] [address]- 1586 Jul, [facility] [place] [facility] [address] [id number] [place] [address]- 6635 Jul, [facility] [address] [id number], [place] [address]- 9214 Jul, [facility] [place] [facility] [address] [id number] [place] [address]- 8083 Jul, [facility] [place] [facility] [address] [id number], [place] [address]- 2798 Jun, [facility] [place] [facility] [address] [id number] [place] [address]- 9289 Jun, [facility] [place] [facility] [address] [id number], [place] [address]- 4875 Jun, [facility] [place] [facility] [address] [id number] [place] [address]- 8258 Jun, [facility] [place] [facility] [address] [id number] [place] [address]- 7218 Jun, [facility] [place] [facility] [address] [id number], [place] [address]- 2438 Jun, [facility] [place] [facility] [address] [id number], [place] [address]- 4491 Jun, [facility] [place] [facility] [address] [id number], [place] [address]- 1762 Jun, [facility] [place] [facility] [address] [id number], [place] [address]- 5049 May, [facility] [place] [facility] [address] [id number], [place] [address]- 0528 30 May, 2012 [facility] [place] [facility] [address] [id number], [place] [address]- 5952 18 May, 2012 [facility] [place] [facility] [address] [id number], [place] [address]- 9424 18 May, 2012 [facility] [place] [facility] [address] [id number], [place] [address]- 5680 2012 [facility] [place] [facility] [address] [id number], [place] [address]- 5778 13 May, 2012 [facility] [place] [facility] [address] [id number] [place] [address]- 6151 11 May, 2012 [facility] [place] [facility] [address] [id number] [place] [address]- 9242 11 May, 2012 [facility] [place] [facility] [address] [id number] [place] [address]- 2806 10 May, 2012 [facility] [place] [facility] [address] [id number] [place] [address]- 9990 08 May, 2012 [facility] [place] [facility] [address] [id number] [place] [address]- 6677 24 Apr, 2012 [facility] [place] [facility] [address] [id number] [place] [address]- 4787 19 Apr, 2012 [facility] [place] [facility] [address] [id number] [place] [address]- 0735 18 Apr, 2012 [facility] [place] [facility] [address] [id number] [place] [address]- 2294 17 Apr, 2012 [facility] [place] [facility] [address] [id number] [place] [address]- 8443 16 Apr, 2012 [facility] [place] [facility] [address] [id number] [place] [address]- 2904 10 Apr, 2012 [facility] [place] [facility] [address] [id number] [place] [address]- 2658 29 Mar, 2012 [facility] [place] [facility] [address] [id number] [place] [address]- 6316 27 Mar, 2012 [facility] [place] [facility] [address] [id number] [place] [address]- 2543 23 Mar, 2012 [facility] [place] [facility] [address] [id number] [place] [address]- 5905 13 Mar, 2012 [facility] [place] [facility] [address] [id number] [place] [address]- 2547 07 Mar, 2012 [facility] [place] [facility] [address] [id number] [place] [address]- 6125 Mar, [facility] [place] [facility] [address] [id number] [place] [address]- 2300 Feb, [facility] [place] [facility] [address] [id number] [place] [address]- 2366 Feb, [facility] [place] [facility] [address] [id number] [place] [address]- 6415 Feb, [facility] [place] [facility] [address] [id number] [place] [address]- 4110 Feb, [facility] [place] [facility] [address] [id number] [place] [address]- 6685 Feb, [facility] [place] [facility] [address] [id number] [place] [address]- 0339 Feb, [facility] [place] [facility] [address] [id number] [place] [address]- 5232 Feb, [facility] [place] [facility] [address] [id number] [place] [address]- 1216 Feb, [facility] [place] [facility] [address] [id number] [place] [address]- 0494 Feb, [facility] [place] [facility] [address] [id number] [place] [address]- 8607 Jan, [facility] [place] [facility] [address] [id number] [place] [address]- 2205 Jan, [facility] [place] [facility] [address] [id number] [place] [address]- 5877 Jan, [facility] [place] [facility] [address] [id number] [place] [address]- 3614 Jan, [facility] [place] [facility] [address] [id number] [place] [address]- 3879 Jan, [facility] [place] [facility] [address] [id number] [place] [address]- 8405 Jan, [facility] [place] [facility] [address] [id number] [place] [address]- 5271 Jan, [facility] [address] [id number] [place] [address]- 6477 Jan, [facility] [address] [id number] [place] [address]- 5284 Jan, [facility] [address] [id number] [place] [address]- 2722 December, [facility] [address] [id number] [place] [address]- 5959 December, [facility] [address] [id number] [place] [address]- 8954 December, [facility] [address] [id number] [place] [address]- 6949 December, [facility] [address] [id number] [place] [address]- 0453 December, [facility] [address] [id number] [place] [address]- 8296 December, [facility] [address] [id number] [place] [address]- 1008 December, [facility] [address] [id number] [place] [address]- 5561 December, [facility] [address] [id number] [place] [address]- 7094 December, [facility] [place] [facility] [address] [id number] [place] [address]- 8525 December, [facility] [place] [facility] [address] [id number] [place] [address]- 2057 Nov, [facility] [place] [facility] [address] [id number] [place] [address]- 8972 Nov, [facility] [address] [id number] [place] [address]- 8661 Nov, [facility] [place] [facility] [address] [id number] [place] [address]- 2983 20 Nov, 2011 [facility] [place] [facility] [address] [id number] [place] [address]- 5736 16 Nov, 2011 [facility] [place] [facility] [address] [id number] [place] [address] 2546 13 Nov, 2011 [facility] [place] [facility] [address] [id number] [place] [address] 2546 09 Nov, 2011 [facility] [place] [facility] [address] [id number] [place] [address] 2546 06 Nov, 2011 [facility] [place] [facility] [address] [id number] [place] [address]- 5957 05 Nov, 2011 [facility] [place] [facility] [address] [id number] [place] [address]- 0633 03 Nov, 2011 [facility] [place] [facility] [address] [id number] [place] [address]- 1835 30 Oct, 2011 [facility] [place] [facility] [address] [id number] [place] [address]- 3589 29 Oct, 2011 [facility] [place] [facility] [address] [id number] [place] [address]- 8542 23 Oct, 2011 [facility] [place] [facility] [address] [id number] [place] [address]- 5529 23 Oct, 2011 [facility] [place] [facility] [address] [id number] [place] [address]- 2546 21 Oct, 2011 [facility] [place] [facility] [address] [id number] [place] [address]- 2995 20 Oct, 2011 [facility] [place] [facility] [address] [id number] [place] [address] 2546 19 Oct, 2011 [facility] [place] [facility] [address] [id number] [place] [address] 2546 19 Oct, 2011 [facility] [place] [facility] [address] [id number] [place] [address]- 7848 16 Oct, 2011 [facility] [place] [facility] [address] [id number] [place] [address]- 1094 14 Oct, 2011 [facility] [place] [facility] [address] [id number] [place] [address]- 1826 14 Oct, 2011 [facility] [place] [facility] [address] [id number] [place] [address]- 3326 09 Oct, 2011 [facility] [place] [facility] [address] [id number] [place] [address]- 8729 08 Oct, 2011 [facility] [place] [facility] [address] [id number] [place] [address]- 5720 06 Oct, 2011 [facility] [place] [facility] [address] [id number] [place] [address]- 0893 02 Oct, 2011 [facility] [place] [facility] [address] [id number] [place] [address]- 7273 28 Sep, 2011 [facility] [place] [facility] [address] [id number] [place] [address]- 9719 24 Sep, 2011 [facility] [place] [facility] [address] [id number] [place] [address]- 1166 20 Sep, 2011 [facility] [place] [facility] [address] [id number] [place] [address]- 9752 17 Sep, 2011 [facility] [place] [facility] [address] [id number] [place] [address]- 0986 16 Sep, 2011 [facility] [place] [facility] [address] [id number] [place] [address]- 6080 14 Sep, 2011 [facility] [place] [facility] [address] [id number] [place] [address]- 9354 13 Sep, 2011 [facility] [place] [facility] [address] [id number] [place] [address]- 0188 10 Sep, 2011 [facility] [place] [facility] [address] [id number] [place] [address]- 9826 06 Sep, 2011 [facility] [place] [facility] [address] [id number] [place] [address]- 1776 Sep, [facility] [address] [id number] [place] [address]- 0176 Sep, [facility] [address] [id number] [place] [address]- 8754 Aug, [facility] [address] [id number] [place] [address]- 2776 Aug, [facility] [address] [id number] [place] [address]- 8359 Aug, [facility] [address] [id number] [place] [address]- 9135 Aug, [facility] [address] [id number] [place] [address]- 7501 Aug, [facility] [address] [id number] [place] [address]- 7841 Aug, [facility] [address] [id number] [place] [address]- 0395 Aug, [facility] [address] [id number] [place] [address]- 4035 17 Aug, 2011 [facility] [address] [id number] [place] [address]- 3580 16 Aug, 2011 [facility] [address] [id number] [place] [address]- 8328 13 Aug, 2011 [facility] [place] [facility] [address] [id number] [place] [address]- 8932 Aug, [facility] [place] [facility] [address] [id number] [place] [address] 10 Aug, 2011 [facility] [place] [facility] [address] [id number] [place] [address] 09 Aug, 2011 [facility] [address] [id number] [place] [address] Aug, [facility] [address] [id number] [place] [address] Aug, [facility] [place] [facility] [address] [id number] [place] [address] Aug, [facility] [place] [facility] [address] [id number] [place] [address] Aug, [facility] [place] [facility] [address] [id number] [place] [address] 30 Jul, 2011 [facility] [place] [facility] [address] [id number] [place] [address] Jul, [facility] [place] [facility] [address] [id number] [place] [address] Jul, [facility] [place] [facility] [address] [id number] [place] [address] Jul, [facility] [place] [facility] [address] [id number] [place] [address] Jul, [facility] [place] [facility] [address] [id number] [place] [address] Jul, [facility] [place] [facility] [address] [id number] [place] [address] 17 Jul, 2011 [facility] [place] [facility] [address] [id number] [place] [address] 16 Jul, 2011 [facility] [place] [facility] [address] [id number] [place] [address] 07 Jul, 2011 [facility] [place] [facility] [address] [id number] [place] [address] 07 Jul, 2011 [facility] [place] [facility] [address] [id number] [place] [address] 06 Jul, 2011 [facility] [place] [facility] [address] [id number] [place] [address] 18 Jun, 2011 [facility] [place] [facility] [address] [id number] [place] [id number] Jun, [facility] [address] [id number], [place] [address] Jun, IMMUNIZATIONS No Known Immunizations SOCIAL HISTORY Never Assessed REASON FOR VISIT Controlled Med Refill 11/26/17 PLAN OF CARE VITAL SIGNS MEDICATIONS Medication Instructions Dosage Frequency Start Date End Date Duration Status Ativan 0.5 MG Orally Once a day 1 tablet as needed 24h December, 28 days Active Oxycodone HCl 5 MG Orally Once a day 1 tablet at bedtime 24h Nov, 28 days Active RESULTS No Results PROCEDURES [...]
--- OUTSIDE RECORDS SUMMARY | 2018-08-05 03:21 | XMS REPORT ---
Author Author HEATHER FINE Organization [facility] Address [address] [place] [address] Care Team Providers Care Silk Screen Printer Machine Name Role Phone HEATHER FINE Unavailable PROBLEMS Type Condition ICD9-CM Code DYI07-HT Code Onset Dates Condition Status SNOMED Code Problem Unspecified cirrhosis of liver K74.60 Active 761215634 Problem Lymphocytosis D72.820 Active 39041047 Problem Secondary esophageal varices with bleeding I85.11 Active 18925273 Problem Anxiety F41.9 Active 73287019 Problem Asthma J45.909 Active 140692926 Problem Chronic back pain M54.9 Active 704797934 Problem Dysthymia F34.1 Active 69663457 Problem Thrombocytosis D47.3 Active 2331611 Problem Splenomegaly R16.1 Active 66872858 Problem 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 Active 975613022 Problem History of hepatitis C Z86.19 Active [id number] ALLERGIES No Information ENCOUNTERS Encounter Location Date Diagnosis [place] [id number] [place] [address] 29402- 0935 Feb, [facility] [id number] [place] [address] 98462- 3764 Feb, [facility] [id number] [place] [address] 27370- 7445 Feb, Anxiety F41.9 [facility] [id number] [place] [address] 76036- 9607 Jan, [place] [address] [place] [address] [id number] [place] [address] 48505- 3872 Jan, Chronic back pain M54.9 and Anxiety F41.9 [facility] [id number] [place] [address] 25504- 4288 December, Chronic back pain M54.9 and Anxiety F41.9 [facility] [id number] [place] [address] 57724- 7139 Nov, Chronic back pain M54.9 and Anxiety F41.9 [facility] [id number] [place] [address] 80159- 2536 Oct, Chronic back pain M54.9 and Anxiety F41.9 [facility] [id number] [place] [address] 94443- 2498 Oct, [facility] [id number] [place] [address] 46215- 8805 Sep, Chronic back pain M54.9 ; Anxiety F41.9 ; Pain of left leg M79.605 and Pain in right leg M79.604 [facility] [id number] [place] [address] 68078- 2638 Sep, Anxiety F41.9 and Chronic back pain M54.9 [facility] [id number] [place] [address] 39131- 4594 Sep, [facility] [id number] [place] [address] 81712- 9380 Aug, Anxiety F41.9 [facility] [id number] [place] [address] 49635- 1821 Jul, Anxiety F41.9 [facility] [id number] [place] [address] 88953- 6977 Jul, [facility] [id number] [place] [address] 23780- 4742 Jul, Viral syndrome B34.9 ; Chronic back pain M54.9 and Dysuria R30.0 [facility] [id number] [place] [address] 40487- 2121 Jun, [facility] [id number] [place] [address] 25281- 9144 Jun, Anxiety F41.9 [facility] [address] [address] 16 Jun, 2017 Dysuria R30.0 and Acute cystitis without hematuria N30.00 [facility] [id number] [address]- 4888 Jun, [facility] [id number] [place] [address] 51966- 9098 May, Anxiety F41.9 [facility] [id number] [place] [address] 45174- 1722 May, Anxiety F41.9 [facility] [id number] [place] [address] 76779- 0479 Apr, [facility] [id number] [place] [address] 08183- 3962 Apr, Chronic back pain M54.9 and Anxiety F41.9 [facility] [address] [address]- 2959 Mar, [facility] [id number] [place] [address] 25999- 7584 Mar, [facility] [address] [address]- 4106 Mar, Well woman exam Z01.419 ; Cervical cancer screening Z12.4 ; Breast cancer screening Z12.31 and Colon cancer screening Z12.11 [facility] [address] [address]- 3509 Mar, Chronic back pain M54.9 and Anxiety F41.9 [facility] [id number] [place] [address] 29159- 9491 Mar, [facility] [id number] [address]- 9645 Feb, Chronic back pain M54.9 and Anxiety F41.9 [facility] [id number] [address]- 6498 Feb, [facility] [id number] [place] [address] 81654- 5236 Feb, [facility] [address] [place] [id number] [address]- 9146 Jan, Chronic back pain M54.9 and Anxiety F41.9 [facility] [address] [id number] [place] [address] 74774- 8266 Jan, [facility] [id number] [place] [address] 40350- 8630 Jan, [facility] [id number] [place] [address] 08583- 2638 December, Chronic back pain M54.9 and Anxiety F41.9 [facility] [id number] [place] [address] 12076- 1777 Nov, Chronic back pain M54.9 and Anxiety F41.9 [facility] [id number] [place] [address] 57454- 1142 Oct, Chronic back pain M54.9 and Anxiety F41.9 [facility] [address] [address]- 4065 Oct, Chronic back pain M54.9 [facility] [id number] [place] [address] 15994- 9612 Sep, Anxiety F41.9 and Chronic back pain M54.9 [facility] [address] [address]- 4609 Aug, Anxiety F41.9 and Chronic back pain M54.9 [facility] [address] [address]- 2944 Aug, [facility] [address] [address]- 1094 Jul, Chronic back pain M54.9 and Anxiety F41.9 [facility] [id number] [place] [address] 21661- 4456 Jul, Anxiety F41.9 and Chronic back pain M54.9 [facility] [address] [place] [address] Jul, [facility] [id number] [place] [address] 79984- 4605 Jul, Anxiety F41.9 [facility] [address] [id number] [place] [address] 31496- 7942 Jul, Anxiety F41.9 and Dysuria R30.0 [facility] [address] 32428- 5360 Jul, Chronic back pain M54.9 and Anxiety F41.9 [facility] [id number] [place] [address] 66781- 7720 Jun, Chronic back pain M54.9 [facility] [id number] [place] [address] 30039- 7111 Jun, Chronic back pain M54.9 [facility] [id number] [place] [address] 75542- 1219 May, Anxiety F41.9 [facility] [id number] [place] [address] 04786- 5414 May, Chronic back pain M54.9 [facility] [id number] [place] [address] 08662- 8719 Apr, [facility] [id number] [place] [address] 36035- 4382 Apr, [facility] [id number] [place] [address] 83847- 4921 Apr, [facility] [id number] [place] [address] 42877- 4673 Apr, Chronic back pain M54.9 [facility] [address] [place] [address]- 9319 Mar, Chronic back pain M54.9 [facility] [id number] [place] [address] 81966- 1066 Feb, Grief F43.20 [facility] [id number] [place] [address] 53694- 1601 Feb, Chronic back pain M54.9 and Anxiety F41.9 [facility] [id number] [place] [address] 04329- 7838 Feb, Chronic back pain M54.9 [facility] [address] [id number] [place] [address] 07427- 2319 Jan, Chronic back pain M54.9 [facility] [id number] [place] [address] 63149- 9906 December, [facility] [id number] [place] [address] 15055- 2042 December, Grief F43.20 [facility] [id number] [place] [address] 81902- 0683 Nov, [facility] [id number] [place] [address] 41827- 6966 Oct, Cervicalgia M54.2 ; Secondary esophageal varices with bleeding I85.11 and Mouth pain K13.79 [facility] [id number] [place] [address] 76342- 3235 Oct, [facility] [id number] [place] [address] 33693- 6087 Oct, [facility] [id number] [place] [address] 48070- 9984 Sep, [facility] [id number] [place] [address] 51366- 8808 Sep, Acute maxillary sinusitis, recurrence not specified J01.00 [facility] [address] [place] [address]- 1715 Aug, [facility] [id number] [place] [address] 24745- 5326 Aug, [facility] [id number] [place] [address] 24526- 9483 Aug, Dysuria R30.0 and Chronic back pain M54.9 [facility] [id number] [place] [address] 33916- 2361 Jul, [facility] [id number] [place] [address] 01313- 7019 Jul, [facility] [id number] [place] [address] 49439- 4640 Jul, [facility] [id number] [place] [address] 84767- 9421 Jul, Chronic back pain M54.9 [facility] [address] [id number] [place] [address] 67183- 9842 Jul, Dysthymia F34.1 and Chronic back pain M54.9 [facility] [id number] [place] [address] 76503- 2698 Jun, [facility] [id number] [place] [address] 16940- 6134 Jun, [facility] [id number] [place] [address] 08151- 2688 May, [facility] [id number] [place] [address] 73170- 5814 May, [facility] [id number] [place] [address] 25706- 2765 13 May, 2015 [facility] [id number] [place] [address] 27583- 8956 07 May, 2015 Encounter for immunization Z23 [facility] [id number] [place] [address] 99522- 3099 15 Apr, 2015 [facility] [address] [id number] [place] [address]- 3386 Apr, [facility] [address] [id number] [place] [address]- 8847 Mar, [facility] [address] [id number] [address]- 2970 Mar, Back pain 724.5 [facility] [id number] [place] [address], [place] [address]- 5534 17 Mar, 2015 Cough 786.2 and Back pain 724.5 [facility] [address] [id number] [place] [address], [place] [address]- 1957 Mar, [facility] [address] [facility] [id number] [place] [address]- 1980 Mar, [facility] [id number] [address]- 4695 December, [facility] [address] [facility] [id number] [place] [address]- 6060 December, [facility] [id number] [address]- 6609 Nov, [facility] [id number] [address]- 1367 Nov, [facility] [place] [facility] [address] [address]- 5033 Oct, [facility] [place] [facility] [address] [id number], [place] [address]- 5618 Oct, [facility] [place] [facility] [address] [facility] [id number] [place] 6414 13 Sep, 2014 [facility] [place] [facility] [address] [facility] [id number] [address]- 0546 Sep, [facility] [place] [facility] [id number] [address]- 6700 Sep, [facility] [place] [facility] [address] [id number] [place] [address]- 8000 Sep, [facility] [place] [facility] [address] [id number] [place] [address]- 3622 Sep, [facility] [place] [facility] [address] [id number] [place] [address]- 0311 Sep, [facility] [place] [facility] [address] [id number] [place] [address]- 9457 Sep, [facility] [place] [facility] [address] [id number] [place] [address]- 8589 Sep, [facility] [place] [facility] [address] [id number] [place] [address]- 8627 Aug, [facility] [place] [facility] [address] [id number] [place] [address]- 4519 Aug, [facility] [place] [facility] [address] [id number] [place] [address]- 1478 Aug, [facility] [place] [facility] [address] [id number] [place] [address]- 1100 Aug, [facility] [place] [facility] [address] [facility] [id number] [place] [address]- 4466 Aug, [facility] [place] [facility] [address] [id number] [place] [address]- 2130 Aug, [facility] [place] [facility] [address] [id number] [place] [address]- 3014 Aug, [facility] [place] [facility] [address] [id number] [place] [address]- 0221 Jul, [facility] [place] [facility] [address] [id number] [place] [address]- 7803 Jul, [facility] [place] [facility] [address] [id number] [place] [address]- 7074 Jul, [facility] [place] [facility] [address] [id number] [place] [address]- 3024 18 Jul, 2014 [facility] [place] [facility] [address] [id number] [place] [address]- 0396 Jul, [facility] [place] [facility] [address] [id number] [place] [address]- 0235 Jul, [facility] [place] [facility] [address] [id number] [place] [address]- 9239 05 Jul, 2014 [facility] [place] [facility] [address] [id number] [place] [address]- 4744 Jul, [facility] [place] [facility] [address] [id number] [place] [address]- 6235 Jun, [facility] [place] [facility] [address] [id number] [place] [address]- 5447 Jun, [facility] [place] [facility] [address] [id number] [place] [address]- 0955 Jun, [facility] [place] [facility] [address] [id number] [place] [address]- 5020 Jun, [facility] [place] [facility] [address] [id number] [place] [address]- 1886 Jun, [facility] [place] [facility] [address] [facility] [id number] [place] [address]- 7313 Jun, [facility] [place] [facility] [address] [id number] [place] [address]- 4286 Jun, [facility] [place] [facility] [address] [id number] [place] [address]- 2994 May, [facility] [place] [facility] [address] [id number] [place] [address]- 4603 May, [facility] [place] [facility] [address] [id number] [place] [address]- 4049 May, [facility] [place] [facility] [address] [id number] [place] [address]- 6981 May, [facility] [place] [facility] [address] [id number] [place] [address]- 2954 2014 [facility] [place] [facility] [address] [id number] [place] [address]- 3385 2014 [facility] [place] [facility] [address] [id number] [place] [address]- 0791 2014 [facility] [place] [facility] [address] [id number] [place] [address]- 9112 2014 [facility] [place] [facility] [address] [id number] [place] [address]- 8295 13 May, 2014 [facility] [place] [facility] [address] [id number] [place] [address]- 3964 13 May, 2014 [facility] [place] [facility] [address] [id number] [place] [address]- 1303 10 May, 2014 [facility] [place] [facility] [address] [id number] [place] [address]- 6106 10 May, 2014 [facility] [place] [facility] [address] [id number] [place] [address]- 6452 08 May, 2014 [facility] [place] [facility] [address] [id number], [place] [address]- 0417 08 May, 2014 [facility] [place] [facility] [address] [id number], [place] [address]- 3465 26 Apr, 2013 [facility] [place] [facility] [address] [id number], [place] [address]- 7471 23 Apr, 2013 [facility] [place] [facility] [address] [id number] [place] [address]- 0920 23 Apr, 2014 [facility] [place] [facility] [address] [id number] [place] [address]- 0922 23 Apr, 2013 [facility] [place] [facility] [address] [id number] [place] [address]- 2811 23 Apr, 2013 [facility] [place] [facility] [address] [id number] [place] [address]- 2803 Apr, [facility] [place] [facility] [address] [id number] [place] [address]- 5112 Apr, [facility] [place] [facility] [address] [id number] [place] [address]- 1484 Mar, [facility] [place] [facility] [address] [id number] [place] [address]- 1906 Mar, [facility] [place] [facility] [address] [id number] [place] [address]- 7007 Mar, [facility] [place] [facility] [address] [id number] [place] [address]- 6498 Mar, [facility] [place] [facility] [address] [id number] [place] [address]- 2570 Mar, [facility] [place] [facility] [address] [id number] [place] [address]- 1855 Mar, [facility] [place] [facility] [address] [id number] [place] [address]- 1157 Feb, [facility] [place] [facility] [address] [id number] [place] [address]- 9031 Feb, [facility] [place] [facility] [address] [id number] [place] [address]- 2325 Feb, [facility] [place] [facility] [address] [id number] [place] [address]- 39[address] Feb, [facility] [place] [facility] [address] [id number] [place] [address] Feb, [facility] [place] [facility] [address] [id number] [place] [address] Feb, [facility] [place] [facility] [address] [id number] [place] [address] Feb, [facility] [place] [facility] [address] [id number] [place] [address] Feb, [facility] [place] [facility] [address] [id number] [place] [address] Jan, [facility] [place] [facility] [address] [id number] [place] [address] Jan, [facility] [place] [facility] [address] [id number] [place] [address] December, [facility] [place] [facility] [address] [id number] [place] [address] December, [facility] [place] [facility] [address] [id number] [place] [address] December, [facility] [place] [facility] [address] [id number] [place] [address] December, [facility] [place] [facility] [address] [id number] [place] [address] December, [facility] [place] [facility] [address] [id number] [place] [address] December, [facility] [place] [facility] [address] [id number] [place] [address] December, [facility] [place] [facility] [address] [id number] [place] [address] December, [facility] [place] [facility] [address] [id number] [place] [address] December, [facility] [place] [facility] [address] [id number] [place] [address] December, [facility] [place] [facility] [address] [id number] [place] [address] December, [facility] [place] [facility] [address] [id number] [place] [address] December, [facility] [place] [facility] [address] [id number] [place] [address] Nov, [facility] [place] [facility] [address] [id number] [place] [address] Nov, [facility] [place] [facility] [address] [id number] [place] [address] Nov, [facility] [place] [facility] [address] [id number] [place] [address] Nov, [facility] [place] [facility] [address] [id number] [place] [address] Nov, [facility] [place] [facility] [address] [id number] [place] [address] Nov, [facility] [place] [facility] [address] [id number] [place] [address] Nov, [facility] [place] [facility] [address] [id number] [place] [address] Nov, [facility] [place] [facility] [address] [id number] [place] [address] Nov, [facility] [place] [facility] [address] [id number] [place] [address] Nov, [facility] [place] [facility] [address] [id number] [place] [address] Nov, [facility] [place] [facility] [address] [id number] [place] [address] Nov, [facility] [place] [facility] [address] [id number] [place] [address] Nov, [facility] [place] [facility] [address] [id number] [place] [address] Oct, [facility] [place] [facility] [address] [id number] [place] [address] Oct, [facility] [place] [facility] [address] [id number] [place] [address] Sep, [facility] [place] [facility] [address] [id number] [place] [address] Sep, [facility] [place] [facility] [address] [id number] [place] [address] Sep, [facility] [place] [facility] [address] [id number] [place] [address] Sep, [facility] [place] [facility] [address] [id number] [place] [address] Sep, [facility] [place] [facility] [address] [id number] [place] [address] Sep, [facility] [place] [facility] [address] [id number] [place] [address] Sep, [facility] [place] [facility] [address] [id number] [place] [address] Sep, [facility] [place] [facility] [address] [facility] [id number] [place] [address]- [address] Sep, [facility] [place] [facility] [address] [facility] [id number] [place] [address]- [address] Sep, [facility] [place] [facility] [address] [facility] [id number] [place] [address] Sep, [facility] [place] [facility] [address] [facility] [id number] [place] [address] Sep, [facility] [place] [facility] [address] [facility] [id number] [place] [address] Aug, [facility] [place] [facility] [address] [id number] [place] [address] Aug, [facility] [place] [facility] [address] [id number] [place] [address] Aug, [facility] [place] [facility] [address] [address] [id number] [place] [address] Aug, [facility] [place] [facility] [address] [facility] [id number] [place] [address] 2595 Aug, [facility] [place] [facility] [address] [facility] [id number], [place] [address] Aug, [facility] [place] [facility] [address] [id number] [place] [address] 1011 Aug, [facility] [place] [facility] [address] [id number] [place] [address] 2107 Aug, [facility] [place] [facility] [address] [id number] [place] [address]- 9575 Aug, [facility] [place] [facility] [address] [id number] [place] [address] 2291 Aug, [facility] [place] [facility] [address] [id number] [place] [address] 5326 Aug, [facility] [place] [facility] [address] [id number] [place] [address] 3470 Aug, [facility] [place] [facility] [address] [id number] [place] [address] 3028 Aug, [facility] [place] [facility] [address] [id number] [place] [address]- 3361 Aug, [facility] [place] [facility] [address] [id number] [place] [address]- 4881 Aug, [facility] [place] [facility] [address] [id number] [place] [address]- 3149 Aug, [facility] [place] [facility] [address] [id number] [place] [address]- 7203 Aug, [facility] [place] [facility] [address] [id number] [place] [address] 1865 Aug, [facility] [place] [facility] [address] [id number] [place] [address] 3017 Aug, [facility] [place] [facility] [address] [id number] [place] [address]- 4539 Aug, [facility] [place] [facility] [address] [id number] [place] [address]- 2967 Aug, [facility] [place] [facility] [address] [id number] [place] [address]- [address] Aug, [facility] [address] [id number] [place] [address] 5250 Aug, [facility] [address] [id number] [place] [address] 6958 Jul, [facility] [address] [id number] [place] [address] 7721 Jul, [facility] [address] [id number] [place] [address]- 2730 Jul, [facility] [address] [id number] [place] [address]- 0459 Jul, [facility] [address] [id number] [place] [address]- 7414 Jul, [facility] [address] [id number] [place] [address]- 6091 Jul, [facility] [address] [id number] [place] [address]- 4312 Jun, [facility] [address] [id number] [place] [address]- 1297 Jun, [facility] [address] [id number] [place] [address]- 0125 Jun, [facility] [place] [facility] [address] [id number] [place] [address]- 8340 Jun, [facility] [place] [facility] [address] [id number] [place] [address]- 5189 Jun, [facility] [place] [facility] [address] [id number] [place] [address]- 3310 Jun, [facility] [place] [facility] [address] [id number] [place] [address]- 0559 Jun, [facility] [place] [facility] [address] [id number] [place] [address] 8346 Jun, [facility] [place] [facility] [address] [id number] [place] [address]- 4680 Jun, [facility] [place] [facility] [address] [id number] [place] [address]- 1622 Jun, [facility] [place] [facility] [address] [id number] [place] [address]- 7589 May, [facility] [place] [facility] [address] [id number] [place] [address]- 2055 May, [facility] [place] [facility] [address] [id number] [place] [address]- 0915 May, [facility] [place] [facility] [address] [id number] [place] [address]- 2482 May, [facility] [place] [facility] [address] [id number] [place] [address]- 6892 May, [facility] [place] [facility] [address] [id number], [place] [address]- 2842 May, [facility] [place] [facility] [address] [id number] [place] [address]- 5351 May, [facility] [place] [facility] [address] [id number], [place] [address]- 5493 May, [facility] [place] [facility] [address] [id number], [place] [address]- 3869 May, [facility] [place] [facility] [address] [id number], [place] [address]- 3187 May, [facility] [place] [facility] [address] [id number] [place] [address]- 3543 17 May, 2013 [facility] [place] [facility] [address] [id number] [address]- 6379 16 May, 2013 [facility] [place] [facility] [address] [id number] [address] May, [facility] [place] [facility] [address] [id number] [place] [address]- 6844 May, [facility] [address] [id number] [place] [address]- 5549 16 May, 2013 [facility] [place] [facility] [address] [id number] [place] [address]- 6922 Apr, [facility] [place] [facility] [address] [id number] [place] [address]- 4173 Apr, [facility] [place] [facility] [address] [id number] [place] [address]- 2930 Apr, [facility] [place] [facility] [address] [id number] [place] [address]- 4440 Mar, [facility] [place] [facility] [address] [id number] [place] [address]- 6441 Mar, [facility] [place] [facility] [address] [id number] [place] [address]- 5273 Mar, [facility] [place] [facility] [address] [id number] [place] [address]- 3195 Mar, [facility] [place] [facility] [address] [id number] [place] [address]- 1648 Mar, [facility] [place] [facility] [address] [id number] [place] [address]- 4334 Mar, [facility] [place] [facility] [address] [id number] [place] [address]- 8643 Feb, [facility] [place] [facility] [address] [id number] [place] [address]- 0292 Feb, [facility] [place] [facility] [address] [id number] [place] [address]- 6886 Feb, [facility] [place] [facility] [address] [id number] [place] [address]- 9141 Feb, [facility] [place] [facility] [address] [id number] [place] [address]- 1800 Feb, [facility] [place] [facility] [address] [id number] [place] [address]- 9862 Feb, [facility] [address] [id number] [place] [address]- 4019 Feb, [facility] [place] [facility] [address] [id number] [place] [address]- 9527 Feb, [facility] [place] [facility] [address] [id number] [place] [address]- 4281 Feb, [facility] [place] [facility] [address] [id number] [place] [address]- 3947 Feb, [facility] [place] [facility] [address] [id number] [place] [address]- 4891 Jan, [facility] [place] [facility] [address] [id number] [place] [address]- 3154 Jan, [facility] [address] [id number] [place] [address]- 8590 Jan, [facility] [address] [id number] [place] [address]- 3541 Jan, [facility] [place] [facility] [address] [id number] [place] [address]- 2529 December, [facility] [place] [facility] [address] [id number] [place] [address]- 2895 December, [facility] [place] [facility] [address] [id number] [place] [address]- 3744 December, [facility] [place] [facility] [address] [id number] [place] [address]- 4703 Nov, [facility] [place] [facility] [address] [id number] [place] [address]- 9411 Nov, [facility] [place] [facility] [address] [id number] [place] [address]- 1662 Nov, [facility] [place] [facility] [address] [id number] [place] [address]- 2719 Nov, [facility] [address] [id number] [place] [address]- 0946 Nov, [facility] [address] [id number] [place] [address]- 6756 Nov, [facility] [address] [id number] [place] [address]- 2929 Oct, [facility] [place] [facility] [address] [id number] [place] [address]- 0661 Oct, [facility] [address] [id number] [place] [address]- 4976 Oct, [facility] [address] [id number] [place] [address]- 6796 Sep, [facility] [address] [id number] [place] [address]- 6543 Sep, [facility] [place] [facility] [address] [id number] [place] [address]- 5764 Sep, [facility] [address] [id number] [place] [address]- 3208 Aug, [facility] [address] [id number] [place] [address]- 9083 Aug, [facility] [address] [id number] [place] [address]- 6956 Aug, [facility] [place] [facility] [address] [id number] [place] [address]- 4933 Aug, [facility] [place] [facility] [address] [id number] [place] [address]- 7658 Jul, [facility] [place] [facility] [address] [id number] [place] [address]- 7268 Jul, [facility] [place] [facility] [address] [id number] [place] [address] 2546 Jul, [facility] [place] [facility] [address] [id number] [place] [address]- 5673 Jul, [facility] [place] [facility] [address] [id number] [place] [address]- 4483 Jun, [facility] [place] [facility] [address] [id number] [place] [address]- 1125 Jun, [facility] [place] [facility] [address] [id number] [place] [address]- 6355 Jun, [facility] [place] [facility] [address] [id number] [place] [address]- 6233 Jun, [facility] [place] [facility] [address] [id number] [place] [address]- 3308 Jun, [facility] [place] [facility] [address] [facility] [id number] [place] [address]- 7976 Jun, [facility] [place] [facility] [address] [facility] [id number] [place] [address]- 2783 Jun, [facility] [place] [facility] [address] [id number] [place] [address]- 9215 Jun, [facility] [place] [facility] [address] [facility] [id number] [place] [address]- 6691 May, [facility] [place] [facility] [address] [facility] [id number] [place] [address]- 3377 30 May, 2012 [facility] [place] [facility] [address] [id number] [place] [address]- 3526 18 May, 2012 [facility] [place] [facility] [address] [id number] [place] [address]- 3380 18 May, 2012 [facility] [place] [facility] [address] [id number] [place] [address]- 6665 2012 [facility] [place] [facility] [address] [facility] [id number] [place] [address]- 4386 13 May, 2012 [facility] [place] [facility] [address] [id number] [place] [address]272 11 May, 2012 [facility] [place] [facility] [address] [id number] [place] [address]- 2016 11 May, 2012 [facility] [place] [facility] [address] [id number] [place] [address]- 9006 10 May, 2012 [facility] [place] [facility] [address] [id number] [place] [address]- 1306 08 May, 2012 [facility] [place] [facility] [address] [id number] [place] [address]- 6218 24 Apr, 2012 [facility] [place] [facility] [address] [id number] [place] [address]- 2911 19 Apr, 2012 [facility] [place] [facility] [address] [id number] [place] [address]- 3564 18 Apr, 2012 [facility] [place] [facility] [address] [id number] [place] [address]- 9902 17 Apr, 2012 [facility] [place] [facility] [address] [id number] [place] [address]- 2579 16 Apr, 2012 [facility] [place] [facility] [address] [id number] [place] [address]- 8209 10 Apr, 2012 [facility] [place] [facility] [address] [id number] [place] [address]- 2651 29 Mar, 2012 [facility] [place] [facility] [address] [id number] [place] [address]- 6973 27 Mar, 2012 [facility] [place] [facility] [address] [id number] [place] [address]- 8781 23 Mar, 2012 [facility] [place] [facility] [address] [id number] [place] [address]- 9606 13 Mar, 2012 [facility] [place] [facility] [address] [id number] [place] [address]- 1738 07 Mar, 2012 [facility] [place] [facility] [address] [id number] [place] [address]- 6305 06 Mar, 2012 [facility] [place] [facility] [address] [id number] [place] [address]- 6205 27 Feb, 2012 [facility] [place] [facility] [address] [id number] [place] [address]- 3466 19 Feb, 2011 [facility] [place] [facility] [address] [id number] [place] [address]- 4816 18 Feb, 2011 [facility] [place] [facility] [address] [id number] [place] [address]- 5946 17 Feb, 2011 [facility] [place] [facility] [address] [id number] [place] [address]- 3893 13 Feb, 2011 [facility] [place] [facility] [address] [id number] [place] [address]- 7563 09 Feb, 2012 [facility] [place] [facility] [address] [id number] [place] [address]- 9245 Feb, [facility] [place] [facility] [address] [id number] [place] [address]- 3899 Feb, [facility] [place] [facility] [address] [id number] [place] [address]- 2385 Feb, [facility] [place] [facility] [address] [id number] [place] [address]- 7018 Jan, [facility] [place] [facility] [address] [id number] [place] [address]- 1897 Jan, [facility] [place] [facility] [address] [id number] [place] [address]- 7551 Jan, [facility] [place] [facility] [address] [id number] [place] [address]- 3663 Jan, [facility] [place] [facility] [address] [id number] [place] [address]- 9034 15 Jan, 2012 [facility] [place] [facility] [address] [id number] [place] [address]- 9821 Jan, [facility] [place] [facility] [address] [id number] [place] [address]- 3898 08 Jan, 2012 [facility] [place] [facility] [address] [id number] [place] [address]- 6944 Jan, [facility] [place] [facility] [address] [id number] [place] [address]- 7399 Jan, [facility] [place] [facility] [address] [id number] [place] [address]- 7560 December, [facility] [place] [facility] [address] [id number] [place] [address]- 6920 December, [facility] [place] [facility] [address] [id number] [place] [address]- 1606 December, [facility] [place] [facility] [address] [id number] [place] [address]- 1518 December, [facility] [place] [facility] [address] [id number] [place] [address]- [address] December, [facility] [address] [id number] [place] [address]- 4912 December, [facility] [address] [id number] [place] [address]- 1474 December, [facility] [place] [facility] [address] [id number] [place] [address]- 3446 December, [facility] [place] [facility] [address] [id number] [place] [address]- 9402 December, [facility] [place] [facility] [address] [id number] [place] [address]- 8345 December, [facility] [place] [facility] [address] [id number] [place] [address]- 1023 Nov, [facility] [place] [facility] [address] [id number] [place] [address]- 9833 Nov, [facility] [place] [facility] [address] [id number] [place] [address]- 5783 Nov, [facility] [place] [facility] [address] [id number] [place] [address]- 9922 20 Nov, 2011 [facility] [address] [id number] [place] [address]- 5163 16 Nov, 2011 [facility] [place] [facility] [address] [id number] [place] [address]- 8906 13 Nov, 2011 [facility] [place] [facility] [address] [id number] [place] [address]- 1336 09 Nov, 2011 [facility] [place] [facility] [address] [id number] [place] [address]- 5950 06 Nov, 2011 [facility] [place] [facility] [address] [id number] [place] [address]- 2322 05 Nov, 2011 [facility] [place] [facility] [address] [id number] [place] [address]- 1849 03 Nov, 2011 [facility] [place] [facility] [address] [id number] [place] [address]- 3980 30 Oct, 2011 [facility] [place] [facility] [address] [id number] [place] [address]- 0233 29 Oct, 2011 [facility] [place] [facility] [address] [id number] [place] [address]- 7022 23 Oct, 2011 [facility] [place] [facility] [address] [id number] [place] [address]- 9975 23 Oct, 2011 [facility] [place] [facility] [address] [id number] [place] [address]- 5346 21 Oct, 2011 [facility] [place] [facility] [address] [id number], [place] [address]- 3784 20 Oct, 2011 [facility] [place] [facility] [address] [id number] [place] [address]- 3887 19 Oct, 2011 [facility] [place] [facility] [address] [id number] [place] [address]- 1987 19 Oct, 2011 [facility] [place] [facility] [address] [id number] [place] [address]- 1406 16 Oct, 2011 [facility] [place] [facility] [address] [id number] [place] [address]- 9017 14 Oct, 2011 [facility] [place] [facility] [address] [id number] [place] [address]- 6051 14 Oct, 2011 [facility] [place] [facility] [address] [id number] [place] [address]- 4196 09 Oct, 2011 [facility] [place] [facility] [address] [id number] [place] [address] 08 Oct, 2011 [facility] [place] [facility] [address] [id number] [place] [address] 06 Oct, 2011 [facility] [place] [facility] [address] [id number] [place] [address] 02 Oct, 2011 [facility] [place] [facility] [address] [id number] [place] [address] 28 Sep, 2011 [facility] [place] [facility] [address] [facility] [id number] [place] [address] 24 Sep, 2011 [facility] [place] [facility] [address] [id number] [place] [address] 1365 20 Sep, 2011 [facility] [place] [facility] [id number] [address] 17 Sep, 2011 [facility] [place] [facility] [address] [facility] [id number] [place] [address] 2886 16 Sep, 2011 [facility] [place] [facility] [address] [facility] [id number] [place] [address] 14 Sep, 2011 [facility] [place] [facility] [address] [id number] [place] [address]40 13 Sep, 2011 [facility] [place] [facility] [address] [id number] [place] [address]- 3528 10 Sep, 2011 [facility] [place] [facility] [address] [facility] [id number] [place] [address] 06 Sep, 2011 [facility] [place] [facility] [address] [facility] [id number] [place] [address] Sep, [facility] [address] [id number] [place] [address] Sep, [facility] [place] [facility] [address] [id number] [place] [address] 140[address] Aug, [facility] [address] [id number] [place] [address] 495[address] Aug, [facility] [place] [facility] [address] [id number] [place] [address]148 Aug, [facility] [address] [id number] [place] [address] Aug, [facility] [place] [facility] [address] [id number] [place] [address] 8619 Aug, [facility] [address] [id number] [place] [address]046 Aug, [facility] [place] [facility] [address] [id number] [place] [address] 0[address] Aug, [facility] [place] [facility] [address] [id number] [place] [address] 3340 17 Aug, 2011 [facility] [place] [facility] [address] [id number] [place] [address] 7984 16 Aug, 2011 [facility] [address] [id number] [place] [address] Aug, [facility] [place] [facility] [address] [id number] [place] [address] Aug, [facility] [place] [facility] [address] [id number] [place] [address] 1594 10 Aug, 2011 [facility] [place] [facility] [address] [id number] [place] [address] 6025 09 Aug, 2011 [facility] [place] [facility] [address] [id number] [place] [address] 68[address] Aug, [facility] [place] [facility] [address] [id number] [place] [address]42 Aug, [facility] [address] [id number] [place] [address] Aug, [facility] [address] [id number] [place] [address] 2546 Aug, [facility] [address] [id number] [place] [address]99 30 Jul, [address] [facility] [address] [id number] [place] [address] Jul, [facility] [address] [id number] [place] [address] Jul, [facility] [address] [id number] [place] [address] Jul, [facility] [address] [id number] [place] [address] Jul, [facility] [address] [id number] [place] [address]148 Jul, [facility] [address] [id number] [place] [address]245 17 Jul, 2011 [facility] [address] [id number] [place] [address] 4845 16 Jul, 2011 [facility] [address] [id number] [place] [address] 77[address] 07 Jul, 2011 [facility] [address] [id number] [place] [address] Jul, [facility] [address] [id number] [place] [address]559 06 Jul, 2011 [facility] [address] [id number] [place] [address] Jun, [facility] [address] [id number] [place] [address] Jun, [facility] [address] [facility] [id number] [place] [address] Jun, IMMUNIZATIONS No Known Immunizations SOCIAL HISTORY Never Assessed REASON FOR VISIT Controlled Med Refill 10/29/17 PLAN OF CARE VITAL SIGNS MEDICATIONS Medication Instructions Dosage Frequency Start Date End Date Duration Status Ativan 0.5 MG Orally Once a day 1 tablet as needed 24h December, 28 days Active Oxycodone HCl 5 MG Orally Once a day 1 tablet at bedtime 24h Oct, 28 days Active RESULTS No Results PROCEDURES [...]
--- OUTSIDE RECORDS SUMMARY | 2018-08-05 03:21 | XMS REPORT ---
Author Author HEATHER FINE Organization [facility] Address [address] [place] [address] Care Team Providers Care Change Director Name Role Phone HEATHER FINE Unavailable PROBLEMS Type Condition ICD9-CM Code TMI15-QK Code Onset Dates Condition Status SNOMED Code Problem Unspecified cirrhosis of liver K74.60 Active 832355640 Problem Lymphocytosis D72.820 Active 97454331 Problem Secondary esophageal varices with bleeding I85.11 Active 26931624 Problem Anxiety F41.9 Active 75507125 Problem Asthma J45.909 Active 463811535 Problem Chronic back pain M54.9 Active 619732427 Problem Dysthymia F34.1 Active 35296702 Problem Thrombocytosis D47.3 Active 7324235 Problem Splenomegaly R16.1 Active 21139734 Problem 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 Active 323363924 Problem History of hepatitis C Z86.19 Active [id number] ALLERGIES No Information ENCOUNTERS Encounter Location Date Diagnosis [place] [id number] [place] [address] 15136- 9422 Oct, Chronic back pain M54.9 and Anxiety F41.9 [place] [address] [place] [id number] [place] [address] 34464- 2855 Oct, [place] [address] [place] [id number] [place] [address] 83956- 6585 Sep, Chronic back pain M54.9 ; Anxiety F41.9 ; Pain of left leg M79.605 and Pain in right leg M79.604 [place] [address] [place] [id number] [place] [address] 44271- 6911 Sep, Anxiety F41.9 and Chronic back pain M54.9 [place] [address] 89275- 5507 Sep, [facility] [id number] [place] [address] 84180- 2262 Aug, Anxiety F41.9 [facility] [id number] [place] [address] 29245- 2105 Jul, Anxiety F41.9 [facility] [address] 98804- 5998 Jul, [facility] [address] 62447- 4216 Jul, Viral syndrome B34.9 ; Chronic back pain M54.9 and Dysuria R30.0 [facility] [id number] [place] [address] 67482- 5992 Jun, [facility] [id number] [place] [address] 13193- 5471 Jun, Anxiety F41.[address] [facility] [id number] [place] [address] 79050 -2077 Jun, Dysuria R30.0 and Acute cystitis without hematuria N30.00 [facility] [id number] [place] [address] 17705- 9761 Jun, [facility] [id number] [place] [address] 58442- 6574 May, Anxiety F41.9 [facility] [id number] [place] [address] 59634- 0857 May, Anxiety F41.9 [facility] [id number] [place] [address] 55192- 6586 Apr, [facility] [address] [place] [address] [id number] [place] [address] 62912- 8087 Apr, Chronic back pain M54.9 and Anxiety F41.9 [facility] [id number] [place] [address] 49853- 6155 Mar, [facility] [address] [address] 9951 Mar, [facility] [address] [address]- 9671 Mar, Well woman exam Z01.419 ; Cervical cancer screening Z12.4 ; Breast cancer screening Z12.31 and Colon cancer screening Z12.11 [facility] [id number] [place] [address] 41898- 1379 Mar, Chronic back pain M54.9 and Anxiety F41.9 [facility] [id number] [place] [address] 97706- 0441 Mar, [facility] [id number] [place] [address] 54566- 1146 Feb, Chronic back pain M54.9 and Anxiety F41.9 [facility] [id number] [place] [address] 53834- 1817 Feb, [facility] [id number] [place] [address] 90125- 1880 Feb, [facility] [id number] [place] [address] 70332- 0178 Jan, Chronic back pain M54.9 and Anxiety F41.9 [facility] [address] [address]- 8898 Jan, [facility] [address], [place] [address]- 3962 Jan, [facility] [id number] [address]- 0789 December, Chronic back pain M54.9 and Anxiety F41.9 [facility] [id number] [address]- 8964 Nov, Chronic back pain M54.9 and Anxiety F41.9 [facility] [id number] [address]- 0629 Oct, Chronic back pain M54.9 and Anxiety F41.9 [facility] [id number] [place] [address] 70813- 4576 Oct, Chronic back pain M54.9 [facility] [id number] [place] [address] 16755- 4166 Sep, Anxiety F41.9 and Chronic back pain M54.9 [facility] [id number] [place] [address] 38228- 8721 Aug, Anxiety F41.9 and Chronic back pain M54.9 [facility] [id number] [place] [address] 78076- 0966 Aug, [facility] [address] [id number] [place] [address] 67763- 9124 Jul, Chronic back pain M54.9 and Anxiety F41.9 [facility] [address] [place] [address] [id number] [place] [address] 91694- 3926 Jul, Anxiety F41.9 and Chronic back pain M54.9 [facility] [place] [id number] [id number] Jul, [facility] [id number] [place] [address] 42810- 1807 Jul, Anxiety F41.9 [facility] [id number] [place] [address] 17193- 7598 Jul, Anxiety F41.9 and Dysuria R30.0 [facility] [id number] [place] [address] 96784- 0862 Jul, Chronic back pain M54.9 and Anxiety F41.9 [facility] [id number] [place] [address] 91010- 4726 Jun, Chronic back pain M54.9 [facility] [address] [place] [id number] [place] [address] 07899- 3155 Jun, Chronic back pain M54.9 [facility] [address] [facility] [place] [id number] [address]- 3200 May, Anxiety F41.9 [facility] [address] [facility] [place] [place] [id number], [place] [address]- 5106 May, Chronic back pain M54.9 [facility] [address] [facility] [place] [id number] [place] [address] 20328- 2176 Apr, [facility] [address] [facility] [place] [place] [id number], [place] [address] 2546 Apr, [facility] [address] [facility] [place] [place] [id number] [place] [address] 27720- 3257 Apr, [facility] [address] [facility] [place] [place] [id number] [place] [address] 70238- 7764 Apr, Chronic back pain M54.9 [facility] [address] [facility] [place] [place] [id number] [place] [address] 98519- 9443 Mar, Chronic back pain M54.9 [facility] [address] [facility] [place] [place] [id number] [place] [address] 19166- 8730 Feb, Grief F43.20 [facility] [address] [facility] [place] [place] [id number], [place] [address]- 0206 Feb, Chronic back pain M54.9 and Anxiety F41.9 [facility] [address] [facility] [place] [place] [id number], [place] [address]- 4066 Feb, Chronic back pain M54.9 [facility] [address] [facility] [place] [id number], [place] [address]- 7197 Jan, Chronic back pain M54.9 [facility] [address] [facility] [place] [place] [id number], [place] [address]- 3866 December, [facility] [address] [facility] [place] [place] [id number], [place] [address]- 2696 December, Grief F43.20 [facility] [address], [place] [address]- 8406 Nov, [facility] [address] [place] [id number] [place] [address] 00138- 6100 28 Oct, 2015 Cervicalgia M54.2 ; Secondary esophageal varices with bleeding I85.11 and Mouth pain K13.79 [facility] [address] [id number] [place] [address] 63811- 6901 Oct, [facility] [id number] [place] [address] 24410- 5375 14 Oct, 2015 [facility] [id number] [place] [address] 31319- 9058 Sep, [facility] [id number] [place] [address] 92576- 8381 Sep, Acute maxillary sinusitis, recurrence not specified J01.00 [facility] [id number] [place] [address] 42538- 6988 Aug, [facility] [id number] [place] [address] 04412- 8287 Aug, [facility] [id number] [place] [address] 52995- 4133 Aug, Dysuria R30.0 and Chronic back pain M54.9 [facility] [id number] [place] [address] 66221- 2466 Jul, [facility] [id number] [place] [address] 12264- 1458 Jul, [facility] [id number] [place] [address] 48145- 3186 Jul, [facility] [id number] [place] [address] 73232- 6051 Jul, Chronic back pain M54.9 [facility] [id number] [place] [address] 54507- 0620 Jul, Dysthymia F34.1 and Chronic back pain M54.9 [facility] [id number] [place] [address] 95027- 8652 Jun, [facility] [id number] [place] [address] 79913- 0908 Jun, [facility] [id number] [place] [address] 02893- 7776 May, [facility] [id number] [place] [address] 03578- 8470 May, [facility] [id number] [place] [address] 53569- 1437 May, [facility] [id number] [place] [address] 02838- 5583 May, Encounter for immunization Z23 [facility] [id number] [place] [address] 80148- 9766 Apr, [facility] [id number] [place] [address] 29339- 0722 Apr, [facility] [id number] [place] [address] 43215- 3402 Mar, [facility] [address] [place] [id number] [place] [address] 08894- 7880 Mar, Back pain 724.5 [facility] [id number] [place] [address] 53870- 7424 Mar, Cough 786.2 and Back pain 724.5 [facility] [address] [id number] [place] [address] 96526- 8768 Mar, [facility] [address] [id number] [place] [address] 20766- 8080 Mar, [facility] [id number] [place] [address] 96732- 9707 December, [facility] [address] [place] [address]- 7066 December, [facility] [place] [facility] [address] [id number] [place] [address]- 4297 Nov, [facility] [place] [facility] [address] [id number] [place] [address]- 2685 Nov, [facility] [place] [facility] [address] [id number] [place] [address]- 1652 Oct, [facility] [place] [facility] [address] [id number] [place] [address]- 0974 Oct, [facility] [place] [facility] [address] [id number] [place] [address]- 3094 Sep, [facility] [place] [facility] [address] [id number] [place] [address]- 1287 Sep, [facility] [place] [facility] [address] [facility] [place] [place] [id number] [place] [address]- 4739 Sep, [facility] [place] [facility] [address] [id number] [place] [address]- 0494 Sep, [facility] [place] [facility] [address] [id number] [place] [address]- 6981 Sep, [facility] [place] [facility] [address] [facility] [place] [place] [id number] [place] [address]- 9880 Sep, [facility] [place] [facility] [address] [facility] [place] [place] [id number] [place] [address]- 7668 Sep, [facility] [place] [facility] [address] [id number] [place] [address]- 4295 Sep, [facility] [place] [facility] [address] [id number] [place] [address]- 2093 Aug, [facility] [place] [facility] [address] [id number] [place] [address]- 8395 Aug, [facility] [place] [facility] [address] [facility] [place] [place] [id number] [place] [address]- 4467 14 Aug, 2014 [facility] [place] [facility] [address] [id number] [place] [address]- 7596 Aug, [facility] [place] [facility] [address] [id number] [place] [address]- 4458 Aug, [facility] [place] [facility] [address] [id number] [place] [address]- 7949 Aug, [facility] [place] [facility] [address] [id number] [place] [address]- 0239 Aug, [facility] [place] [facility] [address] [id number] [place] [address]- 1179 Jul, [facility] [place] [facility] [address] [id number] [place] [address]- 7821 Jul, [facility] [place] [facility] [address] [id number] [place] [address]- 7517 Jul, [facility] [place] [facility] [address] [id number] [place] [address]- 9779 18 Jul, 2014 [facility] [place] [facility] [address] [id number] [place] [address]- 0295 Jul, [facility] [place] [facility] [address] [id number] [place] [address]- 5640 Jul, [facility] [place] [facility] [address] [id number] [place] [address]- 7921 Jul, [facility] [place] [facility] [address] [id number], [place] [address]- 3590 Jul, [facility] [place] [facility] [address] [id number] [place] [address]- 1289 Jun, [facility] [place] [facility] [address] [id number] [place] [address]- 7816 Jun, [facility] [place] [facility] [address] [id number] [place] [address]- 4526 Jun, [facility] [place] [facility] [address] [id number] [place] [address]- 1354 07 Jun, 2013 [facility] [place] [facility] [address] [id number] [place] [address]- 9346 07 Jun, 2014 [facility] [place] [facility] [address] [id number] [place] [address]- 3153 Jun, [facility] [place] [facility] [address] [id number] [place] 5874 Jun, [facility] [place] [facility] [address] [id number] [place] [address]- 4525 28 May, 2014 [facility] [place] [facility] [address] [id number] [place] [address]- 0256 28 May, 2014 [facility] [place] [facility] [address] [id number] [place] [address]- 8397 28 May, 2014 [facility] [place] [facility] [address] [id number] [place] [address]- 0644 28 May, 2014 [facility] [place] [facility] [address] [id number] [place] [address]- 7579 2014 [facility] [place] [facility] [address] [id number] [place] [address]- 6233 2014 [facility] [place] [facility] [address] [id number] [place] [address]- 7967 2014 [facility] [place] [facility] [address] [id number] [place] [address]- 6665 2014 [facility] [place] [facility] [address] [id number] [place] [address]- 3385 13 May, 2014 [facility] [place] [facility] [address] [id number] [place] [address]- 6726 13 May, 2014 [facility] [place] [facility] [address] [id number] [place] [address]- 7224 10 May, 2014 [facility] [place] [facility] [address] [id number] [place] [address]- 9972 May, [facility] [place] [facility] [address] [id number] [place] [address]- 8055 May, [facility] [place] [facility] [address] [id number] [place] [address]- 3723 May, [facility] [place] [facility] [address] [id number] [place] [address]- 2102 Apr, [facility] [place] [facility] [address] [id number] [place] [address]- 5068 Apr, [facility] [place] [facility] [address] [id number] [place] [address]- 0193 Apr, [facility] [place] [facility] [address] [id number] [place] [address]- 4900 Apr, [facility] [place] [facility] [address] [id number] [place] [address]- 6822 Apr, [facility] [place] [facility] [address] [id number] [place] [address]- 4718 Apr, [facility] [place] [facility] [address] [id number] [place] [address]- 4524 Apr, [facility] [place] [facility] [address] [id number] [place] [address]- 0232 Mar, [facility] [place] [facility] [address] [id number] [place] [address]- 1801 Mar, [facility] [place] [facility] [address] [id number] [place] [address]- 4937 Mar, [facility] [place] [facility] [address] [id number] [place] [address]- 4805 Mar, [facility] [place] [facility] [address] [id number] [place] [address]- 4910 Mar, [facility] [place] [facility] [address] [id number] [place] [address]- 8993 Mar, [facility] [place] [facility] [address] [id number] [place] [address]- 2546 Feb, [facility] [place] [facility] [address] [id number] [place]- 1495 Feb, [facility] [place] [facility] [address] [id number] [place] [address]- 7764 Feb, [facility] [place] [facility] [address] [id number] [place] [address]- 1150 Feb, [facility] [place] [facility] [address] [id number] [place] 9560 Feb, [facility] [place] [facility] [address] [id number] [place] [address]- 8316 Feb, [facility] [place] [facility] [address] [id number] [place] [address]- 1338 Feb, [facility] [place] [facility] [address] [id number] [place] [address]- 0860 Feb, [facility] [place] [facility] [address] [id number] [place] [address]- 4941 Jan, [facility] [place] [facility] [address] [id number] [place] [address]- 7854 Jan, [facility] [place] [facility] [address] [id number] [place] [address]- 8145 December, [facility] [place] [facility] [address] [id number] [place] [address]- 5233 December, [facility] [place] [facility] [address] [id number] [place] [address]- 2174 December, [facility] [place] [facility] [address] [id number] [place] 3792 December, [facility] [place] [facility] [address] [id number] [place] 6541 December, [facility] [place] [facility] [address] [id number] [place] 5688 December, [facility] [place] [facility] [address] [id number] [place] [address]- 4691 December, [facility] [address] [id number] [place] [address]- 0890 December, [facility] [address] [id number] [place] [address]- 5271 December, [facility] [address] [id number] [place] [address]- 4844 December, [facility] [address] [id number] [place] [address]- 2931 December, [facility] [address] [id number] [place] [address]- 3093 December, [facility] [address] [id number] [place] [address] Nov, [facility] [address] [id number] [place] [address] Nov, [facility] [address] [id number] [place] [address] Nov, [facility] [address] [id number] [place] [address] Nov, [facility] [address] [id number] [place] [address] Nov, [facility] [place] [place] [facility] [address] [id number] [place] [address] Nov, [facility] [place] [facility] [address] [id number] [place] [address] Nov, [facility] [place] [facility] [address] [id number] [place] [address] Nov, [facility] [place] [facility] [address] [id number] [place] [address] Nov, [facility] [place] [place] [facility] [address] [id number] [place] [address] Nov, [facility] [place] [facility] [address] [id number] [place] [address] Nov, [facility] [place] [facility] [address] [id number] [place] [address] Nov, [facility] [place] [facility] [address] [id number] [place] [address] Nov, [facility] [place] [facility] [address] [id number] [place] [address] Oct, [facility] [place] [facility] [address] [id number] [place] [address] Oct, [facility] [place] [facility] [address] [id number] [place] [address] Sep, [facility] [place] [facility] [address] [id number] [place] [address] Sep, [facility] [place] [facility] [address] [id number] [place] [address] Sep, [facility] [place] [facility] [address] [id number] [place] [address] Sep, [facility] [place] [facility] [address] [facility] [place] [id number] [place] [address] Sep, [facility] [place] [facility] [address] [facility] [place] [id number] [place] [address] Sep, [facility] [place] [facility] [address] [id number] [place] [address] Sep, [facility] [place] [facility] [address] [id number] [place] [address] 18 Sep, 2013 [facility] [place] [facility] [address] [id number] [place] [address] Sep, [facility] [place] [facility] [address] [facility] [place] [id number] [place] [address] Sep, [facility] [place] [facility] [address] [id number] [place] [address] 05 Sep, 2013 [facility] [place] [facility] [address] [id number] [place] [address] Sep, [facility] [place] [facility] [address] [id number] [place] [address] Aug, [facility] [place] [facility] [address] [id number] [place] [address] Aug, [facility] [place] [facility] [address] [id number] [place] [address] Aug, [facility] [place] [facility] [address] [id number] [place] [address] Aug, [facility] [place] [facility] [address] [id number] [place] [address] Aug, [facility] [place] [facility] [address] [id number] [place] [address] Aug, [facility] [place] [facility] [address] [id number] [place] [address] Aug, [facility] [place] [facility] [address] [id number] [place] [address] Aug, [facility] [place] [facility] [address] [id number] [place] [address] Aug, [facility] [place] [facility] [address] [id number] [place] [address] Aug, [facility] [place] [facility] [address] [id number] [place] [address] Aug, [facility] [place] [facility] [address] [id number] [place] [address]- [address] Aug, [facility] [place] [facility] [address] [id number] [place] [address] Aug, [facility] [place] [facility] [address] [id number] [place] [address] Aug, [facility] [address] [id number] [place] [address] Aug, [facility] [place] [facility] [address] [id number] [place] [address]- [address] Aug, [facility] [place] [facility] [address] [id number] [place] [address]- [address] Aug, [facility] [place] [facility] [address] [id number] [place] [address]- [address] Aug, [facility] [place] [facility] [address] [id number] [place] [address]- [address] Aug, [facility] [place] [facility] [address] [id number] [place] [address]- [address] Aug, [facility] [place] [facility] [address] [id number] [place] [address]- [address] Aug, [facility] [place] [facility] [address] [id number] [place] [address]- [address] Aug, [facility] [place] [facility] [address] [id number] [place] [address]- [address] Aug, [facility] [place] [facility] [address] [id number] [place] [address] Jul, [facility] [place] [facility] [address] [id number], [place] [address] Jul, [facility] [place] [facility] [address] [id number], [place] [address] Jul, [facility] [place] [facility] [address] [id number] [place] [address]- 4314 Jul, [facility] [place] [facility] [address] [id number], [place] [address] Jul, [facility] [place] [facility] [address] [id number], [place] [address] Jul, [facility] [place] [facility] [address] [id number] [place] [address] 8264 Jun, [facility] [place] [facility] [address] [id number] [place] [address]- 9363 Jun, [facility] [place] [facility] [address] [id number] [place] [address]- 4362 Jun, [facility] [place] [facility] [address] [id number] [place] [address]- 0573 Jun, [facility] [place] [facility] [address] [id number] [place] [address]- 8004 Jun, [facility] [place] [facility] [address] [id number] [place] [address]- 8639 Jun, [facility] [place] [facility] [address] [id number] [place] [address]- 1437 Jun, [facility] [place] [facility] [address] [id number] [place] [address]- 6296 Jun, [facility] [place] [facility] [address] [id number] [place] [address]- 7672 Jun, [facility] [place] [facility] [address] [id number] [place] [address]- 9547 Jun, [facility] [place] [facility] [address] [facility] [place] [id number] [place] [address]- 3630 May, [facility] [place] [facility] [address] [id number] [place] [address]- 2063 May, [facility] [place] [facility] [address] [id number], [place] [address]- [address]92 May, [facility] [place] [facility] [address] [id number] [place] [address]- 0796 May, [facility] [place] [facility] [address] [facility] [place] [id number] [place] [address]- 8474 May, [facility] [place] [facility] [address] [id number], [place] [address]- [address]608 May, [facility] [place] [facility] [address] [id number] [place] [address]- 9746 May, [facility] [place] [facility] [address] [id number] [place] [address]- 6630 May, [facility] [place] [facility] [address] [id number] [place] [address]- 9705 May, [facility] [place] [facility] [address] [id number] [place] [address]- 0329 May, [facility] [place] [facility] [address] [id number] [place] [address]- 6091 17 May, 2013 [facility] [place] [facility] [address] [id number] [place] [address]- 2368 May, [facility] [place] [facility] [address] [id number] [place] [address]- 3928 May, [facility] [place] [facility] [address] [id number] [place] [address]- 5904 May, [facility] [place] [facility] [address] [id number] [place] [address]- 9840 May, [facility] [place] [facility] [address] [id number] [place] [address]- 5975 24 Apr, 2013 [facility] [place] [facility] [address] [id number] [place] [address]- 1912 Apr, [facility] [place] [facility] [address] [id number] [place] [address]- 1572 Apr, [facility] [place] [facility] [address] [id number] [place] [address]- 1300 Mar, [facility] [place] [facility] [address] [id number] [place] [address]- 0676 Mar, [facility] [place] [facility] [address] [id number] [place] [address]- 5107 Mar, [facility] [place] [facility] [address] [id number] [place] [address]- 2546 Mar, [facility] [place] [facility] [address] [id number] [place] [address]- 1210 Mar, [facility] [place] [facility] [address] [id number] [place] [address]- 2864 Mar, [facility] [place] [facility] [address] [id number] [place] [address] Feb, [facility] [place] [facility] [address] [id number] [place] [address]- 5349 Feb, [facility] [place] [facility] [address] [id number] [place] [address]- 1300 Feb, [facility] [place] [facility] [address] [id number] [place] [address]- 5246 Feb, [facility] [place] [facility] [address] [id number] [place] [address]- 0128 Feb, [facility] [place] [facility] [address] [id number] [place] [address]- 4597 Feb, [facility] [place] [facility] [address] [id number] [place] [address]- 1809 Feb, [facility] [place] [facility] [address] [id number] [place] [address]- 6461 Feb, [facility] [place] [facility] [address] [id number] [place] [address]- 2060 Feb, [facility] [place] [facility] [address] [id number] [place] [address]- 7242 Feb, [facility] [place] [facility] [address] [id number] [place] [address]- 8442 Jan, [facility] [place] [facility] [address] [id number] [place] [address]- 4079 Jan, [facility] [place] [facility] [address] [id number] [place] [address]- 1130 Jan, [facility] [place] [facility] [address] [id number] [place] [address]- 1400 Jan, [facility] [address] [id number] [place] [address]- 9257 December, [facility] [address] [id number] [place] [address]- 4791 December, [facility] [address] [id number] [place] [address]- 3413 December, [facility] [address] [id number] [place] [address]- 9033 Nov, [facility] [address] [id number] [place] [address]- 4866 Nov, [facility] [address] [id number] [place] [address]- 0049 Nov, [facility] [address] [id number] [place] [address]- 9148 Nov, [facility] [address] [id number] [place] [address]- 1640 Nov, [facility] [address] [id number] [place] [address]- 6128 Nov, [facility] [address] [id number] [place] [address]- 0036 Oct, [facility] [address] [id number] [place] [address]- 8931 Oct, [facility] [address] [id number] [place] [address]- 5139 Oct, [facility] [place] [facility] [address] [id number] [place] [address]- 5826 Sep, [facility] [address] [id number] [place] [address]- 2546 Sep, [facility] [address] [id number] [place] [address]- 8538 Sep, [facility] [place] [facility] [address] [id number] [place] [address]- 7196 Aug, [facility] [place] [facility] [address] [id number] [place] [address]- 3501 Aug, [facility] [place] [facility] [address] [id number] [place] [address]- 3935 Aug, [facility] [place] [facility] [address] [id number] [place] [address]- 3135 Aug, [facility] [place] [facility] [address] [id number] [place] [address]- 0101 Jul, [facility] [place] [facility] [address] [id number] [place] [address]- 7416 Jul, [facility] [place] [facility] [address] [id number] [place] [address]- 3725 Jul, [facility] [place] [facility] [address] [id number] [place] [address]- 2035 Jul, [facility] [place] [facility] [address] [id number] [place] [address]- 1132 Jun, [facility] [place] [facility] [address] [id number] [place] [address]- 9711 Jun, [facility] [place] [facility] [address] [id number], [place] [address]- 9989 Jun, [facility] [place] [facility] [address] [id number], [place] [address]- 0049 Jun, [facility] [place] [facility] [address] [id number] [place] [address]- 5846 Jun, [facility] [place] [facility] [address] [id number], [place] [address]- 8869 Jun, [facility] [place] [facility] [address] [id number] [place] [address]- 1390 Jun, [facility] [place] [facility] [address] [id number] [place] [address]- 1552 02 Jun, 2012 [facility] [place] [facility] [address] [id number] [place] [address]- 9174 30 May, 2012 [facility] [place] [facility] [address] [id number] [place] [address]- 9739 30 May, 2012 [facility] [place] [facility] [address] [id number] [place] [address]- 5898 18 May, 2012 [facility] [place] [facility] [address] [id number] [place] [address]- 5348 18 May, 2012 [facility] [place] [facility] [address] [id number] [place] [address]- 6559 2012 [facility] [place] [facility] [address] [id number] [place] [address]- 9440 13 May, 2012 [facility] [place] [facility] [address] [id number] [place] [address]- 4569 11 May, 2012 [facility] [place] [facility] [address] [id number] [place] [address]- 7369 11 May, 2012 [facility] [place] [facility] [address] [id number] [place] [address]- 6496 10 May, 2012 [facility] [place] [facility] [address] [facility] [place] [id number] [place] [address]- 8843 08 May, 2012 [facility] [place] [facility] [address] [id number] [place] [address]- 1451 24 Sep, 2011 [facility] [place] [facility] [address] [id number] [place] [address]- 2543 19 Sep, 2011 [facility] [place] [facility] [address] [id number] [place] [address]- 2685 18 Sep, 2011 [facility] [place] [facility] [address] [id number] [place] [address]- 9156 17 Sep, 2011 [facility] [place] [facility] [address] [id number] [place] [address]- 3267 16 Apr, 2012 [facility] [place] [facility] [address] [id number] [place] [address]- 1168 Apr, [facility] [place] [facility] [address] [id number] [place] [address]- 4273 Mar, [facility] [place] [facility] [address] [id number] [place] [address]- 2612 Mar, [facility] [place] [facility] [address] [id number] [place] [address]- 7689 Mar, [facility] [place] [facility] [address] [id number] [place] [address]- 4430 Mar, [facility] [place] [facility] [address] [id number] [place] [address]- 2032 Mar, [facility] [place] [facility] [address] [id number] [place] [address]- 4040 Mar, [facility] [place] [facility] [address] [id number] [place] [address]- 1695 Feb, [facility] [place] [facility] [address] [id number] [place] [address]- 8886 Feb, [facility] [place] [facility] [address] [id number] [place] [address]- 1732 Feb, [facility] [place] [facility] [address] [id number] [place] [address]- 9944 Feb, [facility] [place] [facility] [address] [id number] [place] [address]- 2475 Feb, [facility] [place] [facility] [address] [id number] [place] [address]- 7615 Feb, [facility] [place] [facility] [address] [id number] [place] [address]- 7295 Feb, [facility] [place] [facility] [address] [id number] [place] [address]- 6012 Feb, [facility] [place] [facility] [address] [id number] [place] [address]- 4408 Feb, [facility] [place] [facility] [address] [id number] [place] [address]- 1354 Jan, [facility] [place] [facility] [address] [id number] [place] 1214 Jan, [facility] [place] [facility] [address] [id number] [place] [address]- 9764 Jan, [facility] [place] [facility] [address] [id number] [place] [address]- 1998 Jan, [facility] [place] [facility] [address] [id number] [place] [address]- 5179 Jan, [facility] [place] [facility] [address] [id number] [place] [address]- 5698 Jan, [facility] [place] [facility] [address] [id number] [place] [address]- 1231 Jan, [facility] [place] [facility] [address] [id number] [place] [address]- 2603 Jan, [facility] [place] [facility] [address] [id number] [place] [address]- 2522 Jan, [facility] [place] [facility] [address] [id number] [place] [address]- 9776 December, [facility] [place] [facility] [address] [id number] [place] [address]- 5407 December, [facility] [place] [facility] [address] [id number] [place] [address]- 3943 December, [facility] [place] [facility] [address] [id number] [place] [address]- 9245 December, [facility] [place] [facility] [address] [id number] [place] [address]- 7350 December, [facility] [place] [facility] [address] [id number] [place] [address]- 9441 December, [facility] [place] [facility] [address] [id number] [place] [address]- 5030 December, [facility] [address] [id number] [place] [address]- 7483 December, [facility] [address] [id number] [place] [address]- 2488 December, [facility] [address] [id number] [place] [address]- 6734 December, [facility] [address] [id number] [place] [address]- 8167 Nov, [facility] [address] [id number] [place] [address]- 6117 Nov, [facility] [address] [id number] [place] [address]- 4644 Nov, [facility] [address] [id number] [place] [address]- 0527 Nov, [facility] [address] [id number] [place] [address]- 6823 16 Nov, 2011 [facility] [address] [id number] [place] [address]- 3372 Nov, [facility] [address] [id number] [place] [address]- 2774 Nov, [facility] [address] [id number] [place] [address]- 9227 Nov, [facility] [address] [id number] [place] [address]- 9624 Nov, [facility] [address] [id number] [place] 9274 Nov, [facility] [address] [id number] [place] 8141 Oct, [facility] [address] [id number] [place] [address]- 6492 Oct, [facility] [place] [facility] [address] [id number] [place] [address]- 7767 23 Oct, 2011 [facility] [place] [facility] [address] [id number] [place] [address]- 1436 23 Oct, 2011 [facility] [place] [facility] [address] [id number] [place] [address]- 6076 21 Oct, 2011 [facility] [place] [facility] [address] [id number] [place] [address]- 3466 20 Oct, 2011 [facility] [place] [facility] [address] [id number] [place] [address]- 0936 19 Oct, 2011 [facility] [place] [facility] [address] [id number] [place] [address]- 0936 19 Oct, 2011 [facility] [place] [facility] [address] [id number] [place] [address]- 9876 16 Oct, 2011 [facility] [place] [facility] [address] [id number] [place] [address]- 3685 14 Oct, 2011 [facility] [place] [facility] [address] [id number] [place] [address]- 0026 14 Oct, 2011 [facility] [place] [facility] [address] [id number] [place] [address]- 0284 09 Oct, 2011 [facility] [place] [facility] [address] [id number] [place] [address]- 3086 08 Oct, 2011 [facility] [place] [facility] [address] [id number] [place] [address]- 8606 06 Oct, 2011 [facility] [place] [facility] [address] [id number] [place] [address]- 3516 02 Oct, 2011 [facility] [place] [facility] [address] [id number] [place] [address]- 8586 28 Sep, 2011 [facility] [place] [facility] [address] [id number] [place] [address]- 0486 24 Sep, 2011 [facility] [place] [facility] [address] [id number] [place] [address]- 8916 20 Sep, 2011 [facility] [place] [facility] [address] [id number] [place] [address] 2546 17 Sep, 2011 [facility] [place] [facility] [address] [id number] [place] [address] 2546 16 Sep, 2011 [facility] [place] [facility] [address] [id number] [place] [address] 2546 14 Sep, 2011 [facility] [place] [facility] [address] [id number] [place] [address] 2546 13 Sep, 2011 [facility] [place] [facility] [address] [id number] [place] [address]- 0366 10 Sep, 2011 [facility] [place] [facility] [address] [id number] [place] [address] 2546 06 Sep, 2011 [facility] [place] [facility] [address] [id number] [place] [address] 2546 03 Sep, 2011 [facility] [place] [facility] [address] [id number] [place] [address]- 3209 Sep, [facility] [place] [facility] [address] [id number] [place] [address]- 1486 Aug, [facility] [place] [facility] [address] [id number] [place] [address]- 4626 Aug, [facility] [place] [facility] [address] [id number] [place] [address] 2546 Aug, [facility] [place] [facility] [address] [id number] [place] [address] 2546 Aug, [facility] [place] [facility] [address] [id number] [place] [address] 2546 Aug, [facility] [place] [facility] [address] [id number] [place] [address] 2546 Aug, [facility] [place] [facility] [address] [id number] [place] [address]- 9311 Aug, [facility] [address] [id number] [place] [address]- 8059 17 Aug, 2011 [facility] [place] [facility] [address] [id number] [place] [address]- 7519 16 Aug, 2011 [facility] [place] [facility] [address] [id number] [place] [address]- 8288 13 Aug, 2011 [facility] [place] [facility] [address] [id number] [place] [address]- 3451 Aug, [facility] [address] [id number] [place] [address]- 3894 Aug, [facility] [place] [facility] [address] [id number] [place] [address]- 4525 Aug, [facility] [address] [id number] [place] [address]- 4641 Aug, [facility] [place] [facility] [address] [id number] [place] [address]- 3810 Aug, [facility] [place] [facility] [address] [id number] [place] [address]- 7307 Aug, [facility] [place] [facility] [address] [id number] [place] [address]- 3319 Aug, [facility] [place] [facility] [address] [id number] [place] [address]- 3688 30 Jul, 2011 [facility] [place] [facility] [address] [id number] [place] [address]- 6291 28 Jul, 2011 [facility] [place] [facility] [address] [id number] [place] [address]- 9564 Jul, [facility] [place] [facility] [address] [id number] [place] [address]- 5781 23 Jul, 2011 [facility] [place] [facility] [address] [id number] [place] [address]- 2554 19 Jul, 2011 [facility] [place] [facility] [address] [id number] [address] Jul, [facility] [address] [id number] [address] 17 Jul, 2011 [facility] [address] [id number] [address] 16 Jul, 2011 [facility] [id number] [address] Jul, [facility] [id number] [address] Jul, [facility] [id number] [address] Jul, [facility] [id number] [address] Jun, [facility] [id number] [address] Jun, [facility] [id number], [place] [address] Jun, IMMUNIZATIONS No Known Immunizations SOCIAL HISTORY Never Assessed REASON FOR VISIT Controlled Med Refill 03/20/2017 PLAN OF CARE VITAL SIGNS MEDICATIONS Medication [...] Thrombocytenpia Medical History Unspecified cirrhosis of liver Surgical History EGD-check veins if had in bleeding per Dr. Lucille chambers 2 Surgical History oral surgery 10/2016 Hospitalization History GI Bleed
--- OUTSIDE RECORDS SUMMARY | 2018-08-05 03:22 | XMS REPORT ---
Author Author HEATHER FINE Organization [facility] Address [address] [place] [address] Care Team Providers Care Baseball Player Name Role Phone HEATHER FINE Unavailable PROBLEMS Type Condition ICD9-CM Code SAT74-UV Code Onset Dates Condition Status SNOMED Code Problem Unspecified cirrhosis of liver K74.60 Active 798987342 Problem Lymphocytosis D72.820 Active 90372137 Problem Secondary esophageal varices with bleeding I85.11 Active 21036341 Problem Anxiety F41.9 Active 77757560 Problem Asthma J45.909 Active 448639397 Problem Chronic back pain M54.9 Active 856173791 Problem Dysthymia F34.1 Active 39913585 Problem Thrombocytosis D47.3 Active 0739746 Problem Splenomegaly R16.1 Active 07493305 Problem 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 Active 814867388 Problem History of hepatitis C Z86.19 Active [id number] ALLERGIES No Information ENCOUNTERS Encounter Location Date Diagnosis [place] [id number] [place] [address] 32203- 0707 Feb, [facility] [id number] [place] [address] 65682- 5894 Feb, [facility] [id number] [place] [address] 06564- 1032 Feb, Anxiety F41.9 [facility] [id number] [place] [address] 91301- 8361 Jan, [place] [address] [id number] [place] [address] 64151- 7463 Jan, Chronic back pain M54.9 and Anxiety F41.9 [facility] [id number] [place] [address] 27314- 1628 December, Chronic back pain M54.9 and Anxiety F41.9 [facility] [id number] [place] [address] 63518- 3644 Nov, Chronic back pain M54.9 and Anxiety F41.9 [facility] [id number] [place] [address] 28926- 6136 Oct, Chronic back pain M54.9 and Anxiety F41.9 [facility] [id number] [place] [address] 19929- 8170 Oct, [facility] [id number] [place] [address] 54280- 0748 Sep, Chronic back pain M54.9 ; Anxiety F41.9 ; Pain of left leg M79.605 and Pain in right leg M79.604 [facility] [id number] [place] [address] 02306- 5664 Sep, Anxiety F41.9 and Chronic back pain M54.9 [facility] [id number] [place] [address] 23733- 3052 Sep, [facility] [id number] [place] [address] 58965- 3918 Aug, Anxiety F41.9 [facility] [id number] [place] [address] 80312- 6483 Jul, Anxiety F41.9 [facility] [id number] [place] [address] 72423- 3972 Jul, [facility] [id number] [place] [address] 23235- 5773 Jul, Viral syndrome B34.9 ; Chronic back pain M54.9 and Dysuria R30.0 [facility] [id number] [place] [address] 38187- 6429 Jun, [facility] [id number] [place] [address] 06360- 7922 Jun, Anxiety F41.9 [facility] [address] [address] 16 Jun, 2017 Dysuria R30.0 and Acute cystitis without hematuria N30.00 [facility] [address] [address]- 9044 Jun, [facility] [id number] [place] [address] 34479- 9116 May, Anxiety F41.9 [facility] [id number] [place] [address] 29223- 6320 May, Anxiety F41.9 [facility] [id number] [place] [address] 53570- 6889 Apr, [facility] [id number] [place] [address] 14071- 2859 Apr, Chronic back pain M54.9 and Anxiety F41.9 [facility] [id number] [address]- 7537 Mar, [facility] [id number] [place] [address] 92424- 9846 Mar, [facility] [address] [address]- 9820 Mar, Well woman exam Z01.419 ; Cervical cancer screening Z12.4 ; Breast cancer screening Z12.31 and Colon cancer screening Z12.11 [facility] [address] [address]- 4840 Mar, Chronic back pain M54.9 and Anxiety F41.9 [facility] [id number] [place] [address] 78198- 7121 Mar, [facility] [address] [address]- 4232 Feb, Chronic back pain M54.9 and Anxiety F41.9 [facility] [id number] [address]- 4475 Feb, [facility] [id number] [place] [address] 43961- 0616 Feb, [facility] [address] [id number] [address]- 4906 Jan, Chronic back pain M54.9 and Anxiety F41.9 [facility] [id number] [place] [address] 45312- 7836 Jan, [facility] [id number] [place] [address] 97481- 7082 Jan, [facility] [id number] [place] [address] 50748- 7242 December, Chronic back pain M54.9 and Anxiety F41.9 [facility] [id number] [place] [address] 01937- 4925 Nov, Chronic back pain M54.9 and Anxiety F41.9 [facility] [id number] [place] [address] 92036- 3568 Oct, Chronic back pain M54.9 and Anxiety F41.9 [facility] [address] [address]- 6402 Oct, Chronic back pain M54.9 [facility] [id number] [place] [address] 28776- 3500 Sep, Anxiety F41.9 and Chronic back pain M54.9 [facility] [address] [address]- 4420 Aug, Anxiety F41.9 and Chronic back pain M54.9 [facility] [address] [address]- 8990 Aug, [facility] [address] [address]- 1935 Jul, Chronic back pain M54.9 and Anxiety F41.9 [facility] [address] [id number] [place] [address]- 7418 Jul, Anxiety F41.9 and Chronic back pain M54.9 [facility] [place] [address] [facility] [id number] [place] [id number] Jul, [facility] [address] [facility] [id number] [place] [address]- 6456 Jul, Anxiety F41.9 [facility] [address] [facility] [id number] [place] [address]- 7116 Jul, Anxiety F41.9 and Dysuria R30.0 [facility] [address] [place] [id number] [place] [address] 31960- 8926 Jul, Chronic back pain M54.9 and Anxiety F41.9 [facility] [address] [place] [address] 58927- 0710 Jun, Chronic back pain M54.9 [facility] [address] [place] [id number] [address]- 5715 Jun, Chronic back pain M54.9 [facility] [address] [id number] [place] [address] 25321- 8496 May, Anxiety F41.9 [facility] [address] [address]- 4336 May, Chronic back pain M54.9 [facility] [address] [place] [id number] [address]- 5390 Apr, [facility] [address] [facility] [id number] [place] [address] 2546 Apr, [facility] [address] [facility] [id number] [place] [address] 23980 2546 Apr, [facility] [address] [address]- 4640 Apr, Chronic back pain M54.9 [facility] [id number] [place] [address] 02083- 7314 Mar, Chronic back pain M54.9 [facility] [id number] [place] [address] 80559- 6996 Feb, Grief F43.20 [facility] [id number] [place] [address] 10829- 0774 Feb, Chronic back pain M54.9 and Anxiety F41.9 [facility] [id number] [place] [address] 56131- 3290 Feb, Chronic back pain M54.9 [facility] [address] [id number] [place] [address] 15597- 4294 Jan, Chronic back pain M54.9 [facility] [id number] [place] [address] 63702- 4617 December, [facility] [address] [id number] [place] [address] 00736- 4019 December, Grief F43.20 [facility] [id number] [place] [address] 38034- 1574 Nov, [facility] [address] [address] [id number] [place] [address] 84186- 2271 Oct, Cervicalgia M54.2 ; Secondary esophageal varices with bleeding I85.11 and Mouth pain K13.79 [facility] [address] [address] [id number] [place] [address] 00266- 0068 Oct, [facility] [address] [address] [id number] [place] [address] 84521- 1856 Oct, [facility] [address] [id number] [place] [address] 51257- 9650 Sep, [facility] [address] [id number] [place] [address] 64551- 8973 Sep, Acute maxillary sinusitis, recurrence not specified J01.00 [facility] [id number] [place] [address] 46638- 9977 Aug, [facility] [id number] [place] [address] 67870- 1764 Aug, [facility] [id number] [place] [address] 10971- 2820 Aug, Dysuria R30.0 and Chronic back pain M54.9 [facility] [id number] [place] [address] 65610- 1632 Jul, [facility] [id number] [place] [address] 97492- 4212 Jul, [facility] [id number] [place] [address] 37708- 1974 Jul, [facility] [id number] [place] [address] 68096- 5307 Jul, Chronic back pain M54.9 [facility] [id number] [place] [address] 50521- 1597 Jul, Dysthymia F34.1 and Chronic back pain M54.9 [facility] [id number] [place] [address] 85818- 6186 Jun, [facility] [id number] [place] [address] 85644- 5959 Jun, [facility] [id number] [place] [address] 99765- 0085 May, [facility] [id number] [place] [address] 91522- 9313 May, [facility] [id number] [place] [address] 73473- 5527 May, [facility] [id number] [place] [address] 80015- 1977 07 May, 2015 Encounter for immunization Z23 [facility] [id number] [place] [address] 45219- 5545 15 Apr, 2015 [facility] [address] [id number] [place] [address]- 0301 Apr, [facility] [address] [facility] [id number] [place] [address]- 8990 Mar, [facility] [address] [facility] [id number] [place] [address]- 8835 Mar, Back pain 724.5 [facility] [address] [id number] [place] [address], [place] [address]- 6461 Mar, Cough 786.2 and Back pain 724.5 [facility] [address] [id number] [place] [address], [place] [address]- 3753 Mar, [facility] [address] [address]- 0966 Mar, [facility] [address] [place] [address] [id number] [address]- 1491 December, [facility] [address] [place] [address] [id number] [address]- 7174 December, [facility] [id number] [address]- 8546 Nov, [facility] [address] [address]- 3045 Nov, [facility] [place] [facility] [address] [facility] [id number] [place] [address]- 4776 Oct, [facility] [place] [facility] [address] [facility] [id number] [place] [address]- 1632 Oct, [facility] [place] [facility] [address] [facility] [id number] [place] [address]- 2071 Sep, [facility] [place] [facility] [address] [facility] [id number] [place] 0203 Sep, [facility] [place] [facility] [address] [id number] [address]- 5967 Sep, 2014 [facility] [place] [facility] [address] [id number] [place] [address]- 2630 Sep, 2014 [facility] [place] [facility] [address] [id number] [place] [address]- 7785 Sep, 2014 [facility] [place] [facility] [address] [id number] [place] [address]- 5179 Sep, [facility] [place] [facility] [address] [id number] [place] [address]- 4021 Sep, [facility] [place] [facility] [address] [id number] [place] [address]- 2502 Sep, [facility] [place] [facility] [address] [id number] [place] [address]- 6518 Aug, [facility] [place] [facility] [address] [id number] [place] [address]- 1585 Aug, [facility] [place] [facility] [address] [id number] [place] [address]- 2007 Aug, [facility] [place] [facility] [address] [id number] [place] [address]- 3767 Aug, [facility] [place] [facility] [address] [facility] [id number] [place] [address]- 5087 Aug, [facility] [place] [facility] [address] [id number] [place] [address]- 5983 Aug, [facility] [place] [facility] [address] [id number] [place] [address]- 3861 Aug, [facility] [place] [facility] [address] [id number] [place] [address]- 2288 Jul, [facility] [place] [facility] [address] [id number] [place] [address]- 5079 Jul, [facility] [place] [facility] [address] [id number] [place] [address]- 6238 Jul, [facility] [place] [facility] [address] [id number] [place] [address]- 6035 Jul, [facility] [place] [facility] [address] [id number] [place] [address]- 8248 Jul, [facility] [place] [facility] [address] [id number] [place] [address]- 5801 Jul, [facility] [place] [facility] [address] [id number] [place] [address]- 9574 Jul, [facility] [place] [facility] [address] [id number] [place] [address]- 3090 Jul, [facility] [place] [facility] [address] [id number] [place] [address]- 0260 Jun, [facility] [place] [facility] [address] [id number] [place] [address]- 3187 Jun, [facility] [place] [facility] [address] [id number] [place] [address]- 8742 Jun, [facility] [place] [facility] [address] [id number] [place] [address]- 9337 Jun, [facility] [place] [facility] [address] [id number] [place] [address]- 0083 Jun, [facility] [place] [facility] [address] [id number] [place] [address]- 1680 Jun, [facility] [place] [facility] [address] [id number] [place] [address]- 6538 Jun, [facility] [place] [facility] [address] [id number] [place] [address]- 9718 May, [facility] [place] [facility] [address] [id number] [place] [address]- 0713 May, [facility] [place] [facility] [address] [id number] [place] [address]- 8029 May, [facility] [place] [facility] [address] [id number] [place] [address]- 0887 28 May, 2014 [facility] [place] [facility] [address] [id number] [place] [address]- 6652 2014 [facility] [place] [facility] [address] [id number] [place] [address]- 9271 2014 [facility] [place] [facility] [address] [id number] [place] [address]- 5255 2014 [facility] [place] [facility] [address] [id number] [place] [address]- 2774 2014 [facility] [place] [facility] [address] [id number] [place] [address]- 6584 13 May, 2014 [facility] [place] [facility] [address] [id number] [place] [address]- 3538 13 May, 2014 [facility] [place] [facility] [address] [id number] [place] [address]- 5493 10 May, 2014 [facility] [place] [facility] [address] [id number] [place] [address]- 4781 10 May, 2014 [facility] [place] [facility] [address] [id number] [place] [address]- 7679 08 May, 2014 [facility] [place] [facility] [address] [id number] [place] [address]- 8853 08 May, 2014 [facility] [place] [facility] [address] [id number] [place] [address]- 2999 26 Apr, 2013 [facility] [place] [facility] [address] [id number] [place] [address]- 5354 23 Apr, 2013 [facility] [place] [facility] [address] [id number] [place] [address]- 4493 23 Apr, 2013 [facility] [place] [facility] [address] [id number] [place] [address]- 4686 23 Apr, 2013 [facility] [place] [facility] [address] [id number] [place] [address]- 7230 23 Apr, 2013 [facility] [place] [facility] [address] [id number] [place] [address]- 9026 Apr, [facility] [place] [facility] [address] [id number] [place] [address]- 2566 Apr, [facility] [place] [facility] [address] [id number] [place] [address]- 5178 Mar, [facility] [place] [facility] [address] [id number] [place] [address]- 3071 Mar, [facility] [place] [facility] [address] [id number] [place] [address]- 1979 Mar, [facility] [place] [facility] [address] [id number] [place] [address]- 0102 Mar, [facility] [place] [facility] [address] [id number] [place] [address]- 9763 Mar, [facility] [place] [facility] [address] [id number] [place] [address]- 6778 Mar, [facility] [place] [facility] [address] [id number] [place] [address]- 7119 Feb, [facility] [place] [facility] [address] [id number] [place] [address]- 2279 Feb, [facility] [place] [facility] [address] [id number] [place] [address]- 0802 Feb, [facility] [place] [facility] [address] [id number] [place] [address]- 8332 Feb, [facility] [place] [facility] [address] [id number] [place] [address]- 8055 Feb, [facility] [place] [facility] [address] [id number] [place] [address]- 2712 Feb, [facility] [place] [facility] [address] [id number] [place] [address]- 8830 Feb, [facility] [place] [facility] [address] [id number] [place] [address]- 2299 Feb, [facility] [place] [facility] [address] [id number] [place] [address] Jan, [facility] [place] [facility] [address] [id number] [place] [address] Jan, [facility] [place] [facility] [address] [id number] [place] [address] December, [facility] [place] [facility] [address] [id number] [place] [address] December, [facility] [place] [facility] [address] [id number] [place] [address] December, [facility] [place] [facility] [address] [id number] [place] [address] December, [facility] [place] [facility] [address] [id number] [place] [address] December, [facility] [place] [facility] [address] [id number] [place] [address] December, [facility] [place] [facility] [address] [id number] [place] [address] December, [facility] [place] [facility] [address] [id number] [place] [address] December, [facility] [place] [facility] [address] [id number] [place] [address] December, [facility] [place] [facility] [address] [id number] [place] [address] December, [facility] [place] [facility] [address] [id number] [place] [address]- [address] December, [facility] [place] [facility] [address] [id number] [place] [address] December, [facility] [place] [facility] [address] [id number] [place] [address] Nov, [facility] [place] [facility] [address] [id number] [place] [address] Nov, [facility] [address] [id number] [place] [address]46 Nov, [facility] [place] [facility] [address] [id number] [place] [address]- 1765 Nov, [facility] [place] [facility] [address] [id number] [place] [address] Nov, [facility] [place] [facility] [address] [id number] [place] [address] 1676 Nov, [facility] [place] [facility] [address] [id number] [place] [address] Nov, [facility] [place] [facility] [address] [id number] [place] [address] 9998 Nov, [facility] [place] [facility] [address] [id number] [place] [address] Nov, [facility] [place] [facility] [address] [id number] [place] [address] Nov, [facility] [place] [facility] [address] [id number] [place] [address] 4660 Nov, [facility] [place] [facility] [address] [facility] [id number] [place] [address] Nov, [facility] [place] [facility] [address] [id number] [place] [address] Nov, [facility] [place] [facility] [address] [id number] [place] [address] Oct, [facility] [place] [facility] [address] [id number] [place] [address] Oct, [facility] [place] [facility] [address] [id number] [place] [address] Sep, [facility] [place] [facility] [address] [id number] [place] [address] 2246 Sep, [facility] [place] [facility] [address] [id number] [place] [address] Sep, [facility] [place] [facility] [address] [id number] [place] [address]- [address]758 Sep, [facility] [place] [facility] [address] [id number] [place] [address]757 Sep, [facility] [place] [facility] [address] [id number] [place] [address] Sep, [facility] [place] [facility] [address] [id number] [place] [address]18 Sep, [facility] [place] [facility] [address] [id number] [place] [address]- [address]892 Sep, [facility] [place] [facility] [address] [id number] [place] [address]- 285[address] Sep, [facility] [place] [facility] [address] [id number] [place] [address]- 238[address] Sep, [facility] [place] [facility] [address] [id number] [place] [address]- [address] Sep, [facility] [place] [facility] [address] [facility] [id number] [place] [address]- [address] Sep, [facility] [place] [facility] [address] [id number] [place] [address]677 Aug, [facility] [place] [facility] [address] [id number] [place] [address]- [address]77 Aug, [facility] [place] [facility] [address] [id number] [place] [address] 9060 Aug, [facility] [place] [facility] [address] [id number] [place] [address] Aug, [facility] [place] [facility] [address] [id number] [place] [address] Aug, [facility] [place] [facility] [address] [id number] [place] [address] Aug, [facility] [place] [facility] [address] [id number] [place] [address] 9270 Aug, [facility] [place] [facility] [address] [id number] [place] [address] 5465 Aug, [facility] [place] [facility] [address] [id number] [place] [address] 0999 Aug, [facility] [place] [facility] [address] [id number] [place] [address]- 8551 Aug, [facility] [place] [facility] [address] [id number] [place] [address]- 2530 Aug, [facility] [place] [facility] [address] [id number] [place] [address]- 8190 Aug, [facility] [place] [facility] [address] [id number] [place] [address]- 0732 Aug, [facility] [place] [facility] [address] [id number] [place] [address]- 2910 Aug, [facility] [place] [facility] [address] [id number] [place] [address]- 5234 Aug, [facility] [place] [facility] [address] [id number] [place] [address]- 2535 Aug, [facility] [place] [facility] [address] [id number] [place] [address]- 6897 Aug, [facility] [place] [facility] [address] [id number] [place] [address]- 3603 Aug, [facility] [place] [facility] [address] [id number] [place] [address]- 9954 Aug, [facility] [place] [facility] [address] [id number] [place] [address]- 3445 Aug, [facility] [place] [facility] [address] [id number] [place] [address]- 1623 Aug, [facility] [place] [facility] [address] [id number] [place] [address]- 1877 Aug, [facility] [address] [id number] [place] [address]- 8887 Aug, [facility] [address] [id number] [place] [address]- 0792 Jul, [facility] [address] [id number] [place] [address]- 0895 Jul, [facility] [address] [id number] [place] [address]- 0850 Jul, [facility] [address] [id number] [place] [address]- 9214 Jul, [facility] [address] [id number] [place] [address]- 1663 Jul, [facility] [address] [id number] [place] [address]- 9426 Jul, [facility] [address] [id number] [place] [address]- 0765 Jun, [facility] [address] [id number] [place] [address]- 3240 Jun, [facility] [address] [id number] [place] [address]- 1124 Jun, [facility] [address] [id number] [place] [address]- 0760 Jun, [facility] [place] [facility] [address] [id number] [place] [address]- 8993 Jun, [facility] [place] [facility] [address] [id number] [place] [address]- 1979 Jun, [facility] [place] [facility] [address] [id number] [place] [address]- 8453 Jun, [facility] [place] [facility] [address] [id number] [place] [address]- 2546 Jun, [facility] [place] [facility] [address] [id number] [place] [address]- 1047 Jun, [facility] [place] [facility] [address] [id number] [place] [address]- 1924 Jun, [facility] [place] [facility] [address] [id number] [place] [address]- 3985 May, [facility] [place] [facility] [address] [id number] [place] [address]- 2410 May, [facility] [place] [facility] [address] [id number] [place] [address]- 1182 May, [facility] [place] [facility] [address] [id number] [place] [address]- 6843 May, [facility] [place] [facility] [address] [id number] [place] [address]- 1542 May, [facility] [place] [facility] [address] [id number] [place] [address]- 7534 May, [facility] [place] [facility] [address] [id number] [place] [address]- 0357 May, [facility] [place] [facility] [address] [id number] [place] [address]- 0548 May, [facility] [place] [facility] [address] [id number] [place] [address]- 5203 May, [facility] [place] [facility] [address] [id number] [place] [address]- 7888 May, [facility] [place] [facility] [address] [id number] [place] [address]- 6737 17 May, 2013 [facility] [place] [facility] [address] [id number] [place] [address] 16 May, 2013 [facility] [place] [facility] [address] [id number] [place] [address] May, [facility] [place] [facility] [address] [id number] [place] [address]- 0571 May, [facility] [address] [id number] [place] [address]- 4481 May, [facility] [address] [id number] [place] [address]- 3146 Apr, [facility] [address] [id number] [place] [address]- 4037 Apr, [facility] [address] [id number] [place] [address]- 4624 Apr, [facility] [address] [id number] [place] [address]- 6403 Mar, [facility] [address] [id number] [place] [address]- 8566 Mar, [facility] [address] [id number] [place] [address]- 2581 Mar, [facility] [address] [id number] [place] [address]- 1404 Mar, [facility] [address] [id number] [place] [address]- 5893 Mar, [facility] [address] [id number] [place] [address]- 2588 Mar, [facility] [address] [id number] [place] [address]- 6879 Feb, [facility] [address] [id number] [place] [address]- 0442 Feb, [facility] [place] [facility] [address] [id number] [place] [address]- 5054 Feb, [facility] [place] [facility] [address] [id number] [place] [address]- 5965 Feb, [facility] [address] [id number] [place] [address]- 8305 Feb, [facility] [address] [id number] [place] [address]- 4866 Feb, [facility] [place] [facility] [address] [id number] [place] [address]- 5579 Feb, [facility] [place] [facility] [address] [id number] [place] [address]- 0858 Feb, [facility] [place] [facility] [address] [id number] [place] [address]- 9711 Feb, [facility] [place] [facility] [address] [id number] [place] [address]- 9299 Feb, [facility] [place] [facility] [address] [id number] [place] [address]- 4945 Jan, [facility] [place] [facility] [address] [id number] [place] [address]- 1955 Jan, [facility] [place] [facility] [address] [id number] [place] [address]- 3884 Jan, [facility] [place] [facility] [address] [id number] [place] [address]- 9813 Jan, [facility] [place] [facility] [address] [id number] [place] [address]- 0224 December, [facility] [place] [facility] [address] [id number] [place] [address]- 5971 December, [facility] [place] [facility] [address] [id number] [place] [address]- 5975 December, [facility] [place] [facility] [address] [id number] [place] [address]- 2472 Nov, [facility] [place] [facility] [address] [id number] [place] [address]- 0159 Nov, [facility] [place] [facility] [address] [id number] [place] [address]- 3158 Nov, [facility] [place] [facility] [address] [id number] [place] [address]- 6577 Nov, [facility] [address] [id number] [place] [address]- 4252 Nov, [facility] [place] [facility] [address] [id number] [place] [address]- 0465 Nov, [facility] [address] [id number] [place] [address]- 3218 Oct, [facility] [place] [facility] [address] [id number] [place] [address]- 0176 Oct, [facility] [address] [id number] [place] [address]- 3634 Oct, [facility] [place] [facility] [address] [id number] [place] [address]- 1151 Sep, [facility] [address] [id number] [place] [address]- 2649 Sep, [facility] [address] [id number] [place] [address]- 8239 Sep, [facility] [address] [id number] [place] [address]- 9006 Aug, [facility] [address] [id number] [place] [address]- 0884 Aug, [facility] [address] [id number] [place] [address]- 4328 Aug, [facility] [place] [facility] [address] [id number] [place] [address]- 254 Aug, [facility] [place] [facility] [address] [id number] [place] [address]- 3532 Jul, [facility] [place] [facility] [address] [id number] [place] [address]- 0506 Jul, [facility] [address] [id number] [place] [address]- 6516 Jul, [facility] [place] [facility] [address] [id number] [place] [address]- 5148 Jul, [facility] [place] [facility] [address] [id number] [place] [address]- 6327 Jun, [facility] [place] [facility] [address] [id number] [place] [address]- 3408 Jun, [facility] [place] [facility] [address] [id number] [place] [address], [place] [address]- 3452 Jun, [facility] [place] [facility] [address] [id number] [place] [address]- 2036 Jun, [facility] [place] [facility] [address] [id number] [place] [address], [place] [address]- 4200 Jun, [facility] [place] [facility] [address] [facility] [id number] [place] [address]- 4638 Jun, [facility] [place] [facility] [address] [id number] [place] [address]- 5510 Jun, [facility] [place] [facility] [address] [id number] [place] [address]- 7753 Jun, [facility] [place] [facility] [address] [id number] [place] [address]- 9308 May, [facility] [place] [facility] [address] [id number] [place] [address]- 6488 30 May, 2012 [facility] [place] [facility] [address] [id number] [place] [address]- 3956 18 May, 2012 [facility] [place] [facility] [address] [id number] [place] [address]- 7755 18 May, 2012 [facility] [place] [facility] [address] [id number] [place] [address]- 6104 2012 [facility] [place] [facility] [address] [id number] [place] [address]- 0414 13 May, 2012 [facility] [place] [facility] [address] [id number] [place] [address]- 7522 11 May, 2012 [facility] [place] [facility] [address] [id number] [place] [address]- 9212 11 May, 2012 [facility] [place] [facility] [address] [id number] [place] [address]- 5758 10 May, 2012 [facility] [place] [facility] [address] [id number] [place] [address]- 6343 08 May, 2012 [facility] [place] [facility] [address] [id number] [place] [address]- 2384 24 Apr, 2012 [facility] [place] [facility] [address] [id number] [place] [address]- 4542 19 Apr, 2012 [facility] [place] [facility] [address] [id number] [place] [address]- 7123 18 Apr, 2012 [facility] [place] [facility] [address] [id number] [place] [address]- 5625 17 Apr, 2012 [facility] [place] [facility] [address] [id number] [place] [address]- 1098 16 Apr, 2012 [facility] [place] [facility] [address] [id number] [place] [address]- 7872 10 Apr, 2012 [facility] [place] [facility] [address] [id number] [place] [address]- 7736 29 Mar, 2012 [facility] [place] [facility] [address] [id number] [place] [address]- 0422 27 Mar, 2012 [facility] [place] [facility] [address] [id number] [place] [address]- 1935 23 Mar, 2012 [facility] [place] [facility] [address] [id number] [place] [address]- 1006 13 Mar, 2012 [facility] [place] [facility] [address] [id number] [place] [address]- 9763 07 Mar, 2012 [facility] [place] [facility] [address] [id number] [place] [address]- 9590 06 Mar, 2012 [facility] [place] [facility] [address] [id number] [place] [address]- 1026 27 Feb, 2011 [facility] [address] [id number] [place] [address]- 9386 19 Feb, 2011 [facility] [place] [facility] [address] [id number] [place] [address] 2546 18 Feb, 2011 [facility] [address] [id number] [place] [address]- 8286 17 Feb, 2011 [facility] [place] [facility] [address] [id number] [place] [address] 2546 13 Feb, 2011 [facility] [address] [id number] [place] [address]- 9140 09 Feb, 2012 [facility] [place] [facility] [address] [id number] [place] [address]- 0771 06 Feb, 2012 [facility] [place] [facility] [address] [id number] [place] [address]- 8030 Feb, [facility] [place] [facility] [address] [id number] [place] [address]- 0826 02 Feb, 2012 [facility] [place] [facility] [address] [id number] [place] [address]- 7053 29 Jan, 2012 [facility] [address] [id number] [place] [address]- 9057 Jan, [facility] [place] [facility] [address] [id number] [place] [address] 2544 Jan, [facility] [place] [facility] [address] [id number] [place] [address]- 2818 22 Jan, 2012 [facility] [place] [facility] [address] [id number] [place] [address]- 7596 15 Jan, 2012 [facility] [place] [facility] [address] [id number] [place] [address]- 2540 11 Jan, 2012 [facility] [place] [facility] [address] [id number] [place] [address]- 8008 Jan, [facility] [address] [id number] [place] [address]- 2158 Jan, [facility] [place] [facility] [address] [id number] [place] [address]- 2656 Jan, [facility] [place] [facility] [address] [id number] [place] [address]- 1696 December, [facility] [place] [facility] [address] [id number] [place] [address]- 4896 December, [facility] [address] [id number] [place] [address]- 5691 December, [facility] [place] [facility] [address] [id number] [place] [address]- 3626 December, [facility] [place] [facility] [address] [id number] [place] [address]- 9423 December, [facility] [place] [facility] [address] [id number] [place] [address]- 2016 December, [facility] [place] [facility] [address] [id number] [place] [address]- 9865 December, [facility] [place] [facility] [address] [id number] [place] [address]- 1346 December, [facility] [place] [facility] [address] [id number] [place] [address]- 3186 December, [facility] [place] [facility] [address] [id number] [place] [address]- 5676 December, [facility] [place] [facility] [address] [id number] [place] [address]- 7899 Nov, [facility] [place] [facility] [address] [id number] [place] [address]- 4226 Nov, [facility] [place] [facility] [address] [id number] [place] [address]- 2586 Nov, [facility] [place] [facility] [address] [id number] [place] [address]- 3880 20 Nov, 2011 [facility] [address] [id number] [place] [address]- 6285 16 Nov, 2011 [facility] [place] [facility] [address] [id number] [place] [address]- 8846 13 Nov, 2011 [facility] [place] [facility] [address] [id number] [place] [address]- 6756 09 Nov, 2011 [facility] [place] [facility] [address] [id number] [place] [address]- 3346 06 Nov, 2011 [facility] [address] [id number] [place] [address]- 5993 05 Nov, 2011 [facility] [place] [facility] [address] [id number] [place] [address]- 7705 03 Nov, 2011 [facility] [address] [id number] [place] [address]- 1937 30 Oct, 2011 [facility] [place] [facility] [address] [id number] [place] [address]- 8900 29 Oct, 2011 [facility] [place] [facility] [address] [id number] [place] [address]- 7363 23 Oct, 2011 [facility] [place] [facility] [address] [id number] [place] [address]- 9725 23 Oct, 2011 [facility] [place] [facility] [address] [id number] [place] [address]- 6070 21 Oct, 2011 [facility] [place] [facility] [address] [id number] [place] [address]- 7806 20 Oct, 2011 [facility] [place] [facility] [address] [id number] [place] [address]- 4945 19 Oct, 2011 [facility] [place] [facility] [address] [id number] [place] [address]- 4852 19 Oct, 2011 [facility] [place] [facility] [address] [facility] [id number] [place] [address]- 9762 16 Oct, 2011 [facility] [place] [facility] [address] [id number] [place] [address]- 1252 14 Oct, 2011 [facility] [place] [facility] [address] [id number] [place] [address]- 2621 14 Oct, 2011 [facility] [place] [facility] [address] [id number] [place] [address]- 4326 09 Oct, 2011 [facility] [place] [facility] [address] [id number] [place] [address]- 8043 08 Oct, 2011 [facility] [place] [facility] [address] [id number] [place] [address]- 2363 06 Oct, 2011 [facility] [place] [facility] [address] [id number] [place] [address]- 8761 02 Oct, 2011 [facility] [place] [facility] [address] [facility] [id number] [place] [address]- 1914 28 Sep, 2011 [facility] [place] [facility] [address] [id number] [place] [address]- 2615 24 Sep, 2011 [facility] [place] [facility] [address] [id number] [place] [address]- 8064 20 Sep, 2011 [facility] [place] [facility] [address] [facility] [id number] [place] [address]- 2778 17 Sep, 2011 [facility] [place] [facility] [address] [facility] [id number] [place] [address]- 9005 16 Sep, 2011 [facility] [place] [facility] [address] [id number] [place] [address]- 3396 14 Sep, 2011 [facility] [place] [facility] [address] [id number] [place] [address]- 5502 13 Sep, 2011 [facility] [place] [facility] [address] [id number] [place] [address] 10 Sep, 2011 [facility] [place] [facility] [address] [facility] [id number] [place] [address] 06 Sep, 2011 [facility] [place] [facility] [address] [facility] [id number] [place] [address] Sep, [facility] [address] [id number] [place] [address] Sep, [facility] [address] [id number] [place] [address] Aug, [facility] [address] [id number] [place] [address] Aug, [facility] [address] [id number] [place] [address] Aug, [facility] [address] [id number] [place] [address] Aug, [facility] [address] [id number] [place] [address] Aug, [facility] [address] [id number] [place] [address] 17 Aug, 2011 [facility] [address] [id number] [place] [address]66 17 Aug, 2011 [facility] [address] [id number] [place] [address] 17 Aug, 2011 [facility] [address] [id number] [place] [address] 16 Aug, 2011 [facility] [address] [id number] [place] [address] 13 Aug, 2011 [facility] [address] [id number] [place] [address] Aug, [facility] [address] [id number] [place] [address] 10 Aug, 2011 [facility] [place] [facility] [address] [id number] [place] [address]- [address] 09 Aug, 2011 [facility] [address] [id number] [place] [address] Aug, [facility] [address] [id number] [place] [address] Aug, [facility] [address] [id number] [place] [address] 58[address] Aug, [facility] [place] [facility] [address] [id number] [place] [address] 267[address] Aug, [facility] [address] [id number] [place] [address]- 3582 30 Jul, 2011 [facility] [address] [id number] [place] [address]- [address] Jul, [facility] [place] [facility] [address] [id number] [place] [address]- 1062 Jul, [facility] [address] [id number] [place] [address] Jul, [facility] [address] [id number] [place] [address] Jul, [facility] [address] [id number] [place] [address] Jul, [facility] [address] [id number] [place] [address] Jul, [facility] [place] [facility] [address] [id number] [place] [address] 16 Jul, 2011 [facility] [place] [facility] [address] [id number] [place] [address] Jul, [facility] [place] [facility] [address] [id number] [place] [address] Jul, [facility] [place] [facility] [address] [id number] [place] [address] 69[address] Jul, [facility] [place] [facility] [address] [id number] [place] [address] 18 Jun, 2011 [facility] [place] [facility] [address] [id number] [place] [address] Jun, [facility] [address] [facility] [id number] [place] [address] Jun, IMMUNIZATIONS No Known Immunizations SOCIAL HISTORY Never Assessed REASON FOR VISIT Repository Medication PLAN OF CARE VITAL SIGNS MEDICATIONS Medication Instructions Dosage Frequency Start Date End Date Duration Status Folic Acid 1 MG Orally Once a day 1 tablet 24h 90 days Active Aldactone 50 MG Orally Once [...]
--- OUTSIDE RECORDS SUMMARY | 2018-08-05 03:23 | XMS REPORT ---
Author Author HEATHER FINE Organization [facility] Address [address] [place] [address] Care Team Providers Care Cell Tester Name Role Phone HEATHER FINE Unavailable PROBLEMS Type Condition ICD9-CM Code JCU17-QL Code Onset Dates Condition Status SNOMED Code Problem Unspecified cirrhosis of liver K74.60 Active 484391500 Problem Lymphocytosis D72.820 Active 26307816 Problem Secondary esophageal varices with bleeding I85.11 Active 37405593 Problem Anxiety F41.9 Active 67981903 Problem Asthma J45.909 Active 781529381 Problem Chronic back pain M54.9 Active 110979743 Problem Dysthymia F34.1 Active 79674574 Problem Thrombocytosis D47.3 Active 9974905 Problem Splenomegaly R16.1 Active 57629816 Problem 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 Active 651308439 Problem History of hepatitis C Z86.19 Active [id number] ALLERGIES Substance Reaction Event Type Date Status Sulfamethoxazole-Trimethoprim Unknown Drug Allergy Sep, Active ENCOUNTERS Encounter Location Date Diagnosis [facility] [place] [id number] [place] [address] 22347- 5674 Feb, [facility] [id number] [place] [address] 17769- 4874 Feb, [facility] [id number] [place] [address] 29564- 4981 Feb, Anxiety F41.9 [facility] [id number] [place] [address] 63116- 8439 Jan, [facility] [address] [address]- 8534 Jan, Chronic back pain M54.9 and Anxiety F41.9 [facility] [id number] [place] [address] 04842- 6394 December, Chronic back pain M54.9 and Anxiety F41.9 [facility] [id number] [place] [address] 28661- 4201 Nov, Chronic back pain M54.9 and Anxiety F41.9 [facility] [id number] [place] [address] 69752- 1096 Oct, Chronic back pain M54.9 and Anxiety F41.9 [facility] [id number] [place] [address] 60386- 8418 Oct, [facility] [id number] [place] [address] 91488- 2760 Sep, Chronic back pain M54.9 ; Anxiety F41.9 ; Pain of left leg M79.605 and Pain in right leg M79.604 [facility] [id number] [place] [address] 53565- 8224 Sep, Anxiety F41.9 and Chronic back pain M54.9 [facility] [id number] [place] [address] 65217- 0413 Sep, [facility] [id number] [place] [address] 15858- 1705 Aug, Anxiety F41.9 [facility] [id number] [place] [address] 45007- 3009 Jul, Anxiety F41.9 [facility] [id number] [place] [address] 66191- 9900 Jul, [facility] [id number] [place] [address] 05591- 7672 Jul, Viral syndrome B34.9 ; Chronic back pain M54.9 and Dysuria R30.0 [facility] [id number] [place] [address] 43554- 5825 Jun, [facility] [id number] [address]- 5094 Jun, Anxiety F41.9 [facility] [id number] [place] [address] 99590 -3590 16 Jun, 2017 Dysuria R30.0 and Acute cystitis without hematuria N30.00 [facility] [address] [address]- 5965 Jun, [facility] [id number] [place] [address] 14313- 8323 May, Anxiety F41.9 [facility] [id number] [place] [address] 66226- 3641 May, Anxiety F41.9 [facility] [id number] [place] [address] 38451- 1233 Apr, [facility] [id number] [place] [address] 07893- 5490 Apr, Chronic back pain M54.9 and Anxiety F41.9 [facility] [id number] [place] [address] 00716- 5278 Mar, [facility] [id number] [place] [address] 14026- 4646 Mar, [facility] [address] [address]- 1252 Mar, Well woman exam Z01.419 ; Cervical cancer screening Z12.4 ; Breast cancer screening Z12.31 and Colon cancer screening Z12.11 [facility] [address] [address]- 2306 Mar, Chronic back pain M54.9 and Anxiety F41.9 [facility] [id number] [place] [address] 47401- 8202 Mar, [facility] [id number] [place] [address] 91114- 3328 Feb, Chronic back pain M54.9 and Anxiety F41.9 [facility] [address] [facility] [id number] [address]- 9381 Feb, [facility] [address] [facility] [id number] [place] [address] 82676- 1016 Feb, [facility] [id number] [place] [address] 73134- 3533 Jan, Chronic back pain M54.9 and Anxiety F41.9 [facility] [id number] [place] [address] 88323- 3049 Jan, [facility] [id number] [place] [address] 41791- 2194 Jan, [facility] [id number] [place] [address] 20967- 6629 December, Chronic back pain M54.9 and Anxiety F41.9 [facility] [id number] [place] [address] 13468- 6354 Nov, Chronic back pain M54.9 and Anxiety F41.9 [facility] [id number] [place] [address] 87619- 5570 Oct, Chronic back pain M54.9 and Anxiety F41.9 [facility] [address] [place] [address] 80753- 3949 Oct, Chronic back pain M54.9 [facility] [id number] [place] [address] 87998- 7311 Sep, Anxiety F41.9 and Chronic back pain M54.9 [facility] [id number] [place] [address] 25605- 1500 Aug, Anxiety F41.9 and Chronic back pain M54.9 [facility] [id number] [place] [address] 48688- 9424 Aug, [facility] [id number] [place] [address] 58408- 6521 Jul, Chronic back pain M54.9 and Anxiety F41.9 [facility] [address] [facility] [id number] [address] 2546 Jul, Anxiety F41.9 and Chronic back pain M54.9 [facility] [place] [address] [facility] [id number] [place] [id number] Jul, [facility] [address] [facility] [id number] [place] [address] 02461 2546 Jul, Anxiety F41.9 [facility] [address] [facility] [id number] [place] [address] 03742 2546 Jul, Anxiety F41.9 and Dysuria R30.0 [facility] [id number] [place] [address] 04900 2546 Jul, Chronic back pain M54.9 and Anxiety F41.9 [facility] [address] [place] [address] 37844 254 Jun, Chronic back pain M54.9 [facility] [id number] [place] [address] 37066 2546 Jun, Chronic back pain M54.9 [facility] [id number] [place] [address] 50910 2546 May, Anxiety F41.9 [facility] [address] [place] [address] 54128 2546 May, Chronic back pain M54.9 [facility] [address] [facility] [id number] [address] 2546 Apr, [facility] [address] [facility] [id number] [place] [address] 48807 2546 Apr, [facility] [address] [facility] [id number] [address] 2546 Apr, [facility] [address] [place] [address] 64677- 1034 Apr, Chronic back pain M54.9 [facility] [id number] [place] [address] 54435- 7806 Mar, Chronic back pain M54.9 [facility] [id number] [place] [address] 39458- 1376 Feb, Grief F43.20 [facility] [id number] [place] [address] 39992- 8426 Feb, Chronic back pain M54.9 and Anxiety F41.9 [facility] [id number] [place] [address] 27686- 8684 Feb, Chronic back pain M54.9 [facility] [id number] [place] [address] 65014- 6690 Jan, Chronic back pain M54.9 [facility] [id number] [place] [address] 39764- 2766 December, [facility] [id number] [place] [address] 28040- 3171 December, Grief F43.20 [facility] [id number] [place] [address] 51896- 3065 Nov, [facility] [id number] [place] [address] 66509- 5941 Oct, Cervicalgia M54.2 ; Secondary esophageal varices with bleeding I85.11 and Mouth pain K13.79 [facility] [id number] [place] [address] 66012- 3288 Oct, [facility] [id number] [place] [address] 51805- 6026 Oct, [facility] [id number] [place] [address] 96080- 5375 Sep, [facility] [id number] [place] [address] 21531- 2233 Sep, Acute maxillary sinusitis, recurrence not specified J01.00 [facility] [address] [address]- 4735 Aug, [facility] [id number] [place] [address] 62717- 5246 Aug, [facility] [id number] [place] [address] 35126- 6727 Aug, Dysuria R30.0 and Chronic back pain M54.9 [facility] [id number] [place] [address] 38340- 8660 Jul, [facility] [id number] [place] [address] 93593- 5035 Jul, [facility] [id number] [place] [address] 96348- 6998 Jul, [facility] [id number] [place] [address] 42681- 6628 Jul, Chronic back pain M54.9 [facility] [id number] [place] [address] 03993- 7996 Jul, Dysthymia F34.1 and Chronic back pain M54.9 [facility] [id number] [place] [address] 81298- 2499 Jun, [facility] [id number] [place] [address] 27312- 0317 Jun, [facility] [id number] [place] [address] 67035- 7775 May, [facility] [id number] [place] [address] 75423- 9504 May, [facility] [id number] [place] [address] 84145- 4524 May, [facility] [id number] [place] [address] 24735- 8737 May, [facility]counter for [facility] Z23 [facility] [address] [facility] [id number] [place] [address]- 4632 15 Apr, 2015 [facility] [id number] [place] [address], [place] [address]- 5824 10 Apr, 2015 [facility] [id number] [place] [address]- 6660 Mar, [facility] [id number] [place] [address], [place] [address]- 5616 Mar, Back pain 724.5 [facility] [id number] [place] [address], [place] [address]- 4558 Mar, Cough 786.2 and Back pain 724.5 [facility] [id number] [place] [address], [place] [address]- 0696 Mar, [facility] [id number] [place] [address] 56672- 3940 Mar, [facility] [address] [address]- 6974 December, [facility] [address] [place] [address]- 9720 December, [facility] [address] [address]- 5701 Nov, [facility] [address] [address]- 2434 Nov, [facility] [id number] [address]- 2023 Oct, [facility] [id number] [address]- 4433 Oct, [facility] [address] [address]- 5215 Sep, [facility] [address] [address]- 7851 Sep, [facility] [place] [facility] [address] [id number] [place] [address]- 6173 Sep, [facility] [place] [facility] [address] [id number] [place] [address]- 6139 Sep, 2014 [facility] [place] [facility] [address] [id number] [place] [address]- 9046 Sep, 2014 [facility] [place] [facility] [address] [id number] [place] [address]- 8706 Sep, [facility] [place] [facility] [address] [id number] [place] [address]- 7027 Sep, [facility] [place] [facility] [address] [id number] [place] [address]- 9305 Sep, [facility] [place] [facility] [address] [id number] [place] [address]- 5722 Aug, [facility] [place] [facility] [address] [id number] [place] [address]- 8168 Aug, [facility] [place] [facility] [address] [id number] [place] [address]- 1835 Aug, [facility] [place] [facility] [address] [id number] [place] [address]- 5981 Aug, [facility] [place] [facility] [address] [id number] [place] [address]- 5301 Aug, [facility] [place] [facility] [address] [id number] [place] [address]- 9639 Aug, [facility] [place] [facility] [address] [id number] [place] [address]- 8143 Aug, [facility] [place] [facility] [address] [id number] [place] [address]- 1039 Jul, [facility] [place] [facility] [address] [id number] [place] [address]- 2025 Jul, [facility] [place] [facility] [address] [id number] [place] 8082 18 Jul, 2014 [facility] [place] [facility] [address] [id number] [place] [address]- 3094 18 Jul, 2014 [facility] [place] [facility] [address] [id number] [place] [address]- 4819 15 Jul, 2014 [facility] [place] [facility] [address] [id number] [place] [address]- 7651 Jul, [facility] [place] [facility] [address] [id number] [place] [address]- 6127 05 Jul, 2014 [facility] [place] [facility] [address] [id number] [place] [address]- 7909 05 Jul, 2014 [facility] [place] [facility] [address] [id number] [place] [address]- 4490 Jun, [facility] [place] [facility] [address] [id number] [place] [address]- 9499 Jun, [facility] [place] [facility] [address] [id number] [place] [address]- 6184 Jun, [facility] [place] [facility] [address] [id number] [place] [address]- 0374 Jun, [facility] [place] [facility] [address] [facility] [id number] [place] [address]- 5538 Jun, [facility] [place] [facility] [address] [id number] [place] [address]- 2135 Jun, [facility] [place] [facility] [address] [id number] [place] [address]- 7259 Jun, [facility] [place] [facility] [address] [id number] [place] [address]- 9849 May, [facility] [place] [facility] [address] [id number] [place] [address]- 1191 May, [facility] [place] [facility] [address] [facility] [id number] [place] [address]- 4311 May, [facility] [place] [facility] [address] [id number] [place] [address]- 1319 28 May, 2014 [facility] [place] [facility] [address] [id number] [place] [address]- 7718 2014 [facility] [place] [facility] [address] [id number] [place] [address]- 2740 2014 [facility] [place] [facility] [address] [id number] [place] [address]- 2772 2014 [facility] [place] [facility] [address] [id number] [place] [address]- 0255 2014 [facility] [place] [facility] [address] [id number] [place] [address]- 5182 May, [facility] [place] [facility] [address] [id number] [place] [address]- 7497 May, [facility] [place] [facility] [address] [id number] [place] [address]- 0298 10 May, 2014 [facility] [place] [facility] [address] [id number] [place] [address]- 7868 10 May, 2014 [facility] [place] [facility] [address] [id number] [place] [address]- 6192 08 May, 2014 [facility] [place] [facility] [address] [id number] [place] [address]- 8069 08 May, 2014 [facility] [place] [facility] [address] [id number] [place] [address]- 9640 26 Apr, 2013 [facility] [place] [facility] [address] [id number] [place] [address]- 7502 23 Apr, 2014 [facility] [place] [facility] [address] [id number] [place] [address]- 4833 23 Apr, 2013 [facility] [place] [facility] [address] [id number] [place] [address]- 2753 23 Apr, 2013 [facility] [place] [facility] [address] [id number] [place] [address]- 9286 Apr, [facility] [place] [facility] [address] [id number] [place] [address]- 5572 Apr, [facility] [place] [facility] [address] [id number] [place] [address]- 9406 Apr, [facility] [place] [facility] [address] [id number] [place] [address]- 5599 Mar, [facility] [place] [facility] [address] [id number] [place] [address]- 0563 Mar, [facility] [place] [facility] [address] [id number] [place] [address]- 3490 Mar, [facility] [place] [facility] [address] [id number] [place] [address]- 1050 Mar, [facility] [place] [facility] [address] [id number] [place] [address]- 7045 Mar, [facility] [place] [facility] [address] [id number] [place] [address]- 1478 Mar, [facility] [place] [facility] [address] [id number] [place] [address]- 8612 Feb, [facility] [place] [facility] [address] [id number] [place] [address]- 4318 Feb, [facility] [place] [facility] [address] [id number] [place] [address]- 3120 Feb, [facility] [place] [facility] [address] [id number] [place] [address]- 2569 Feb, [facility] [place] [facility] [address] [id number] [place] [address] Feb, [facility] [place] [facility] [address] [id number] [place] [address] Feb, [facility] [place] [facility] [address] [id number] [place] [address] Feb, [facility] [place] [facility] [address] [id number] [place] [address] Feb, [facility] [address] [id number] [place] [address] Jan, [facility] [address] [id number] [place] [address] Jan, [facility] [address] [id number] [place] [address] December, [facility] [address] [id number] [place] [address] December, [facility] [address] [id number] [place] [address] December, [facility] [address] [id number] [place] [address] December, [facility] [address] [id number] [place] [address] December, [facility] [address] [id number] [place] [address] December, [facility] [address] [id number] [place] [address] December, [facility] [address] [id number] [place] [address] December, [facility] [address] [id number] [place] [address] December, [facility] [address] [id number] [place] [address] December, [facility] [place] [facility] [address] [id number] [place] [address] December, [facility] [address] [id number] [place] [address] December, [facility] [address] [id number] [place] [address] Nov, [facility] [place] [facility] [address] [id number] [place] [address] Nov, [facility] [place] [facility] [address] [id number] [place] [address] Nov, [facility] [place] [facility] [address] [id number] [place] [address] Nov, [facility] [place] [facility] [address] [id number] [place] [address] Nov, [facility] [place] [facility] [address] [id number] [place] [address] Nov, [facility] [place] [facility] [address] [id number] [place] [address] Nov, [facility] [place] [facility] [address] [id number] [place] [address] Nov, [facility] [place] [facility] [address] [id number] [place] [address] Nov, [facility] [place] [facility] [address] [id number] [place] [address] Nov, [facility] [place] [facility] [address] [id number] [place] [address] Nov, [facility] [place] [facility] [address] [id number] [place] [address] Nov, [facility] [place] [facility] [address] [id number] [place] [address] Nov, [facility] [place] [facility] [address] [id number] [place] [address] Oct, [facility] [place] [facility] [address] [id number] [place] [address] Oct, [facility] [place] [facility] [address] [id number] [place] [address] Sep, [facility] [place] [facility] [address] [id number] [place] [address] Sep, [facility] [place] [facility] [address] [id number] [place] [address] Sep, [facility] [place] [facility] [address] [id number] [place] [address] Sep, [facility] [place] [facility] [address] [id number] [place] [address] Sep, [facility] [place] [facility] [address] [id number] [place] [address] Sep, [facility] [place] [facility] [address] [id number] [place] [address] Sep, [facility] [place] [facility] [address] [id number] [place] [address] Sep, [facility] [place] [facility] [address] [facility] [id number] [place] [address] Sep, [facility] [place] [facility] [address] [id number] [place] [address] Sep, [facility] [place] [facility] [address] [address] [facility] [id number] [place] [address] Sep, [facility] [place] [facility] [address] [facility] [id number] [place] [address] Sep, [facility] [place] [facility] [address] [facility] [id number] [place] [address] 3590 Aug, [facility] [place] [facility] [address] [id number] [place] [address] 3063 Aug, [facility] [place] [facility] [address] [id number] [place] [address] 1311 Aug, [facility] [place] [facility] [address] [facility] [id number] [place] [address]- 4833 Aug, [facility] [place] [facility] [address] [facility] [id number] [place] [address]- 8240 Aug, [facility] [place] [facility] [address] [id number] [place] [address]- 0974 Aug, [facility] [place] [facility] [address] [id number] [place] [address]- 6219 Aug, [facility] [place] [facility] [address] [id number] [place] [address]- 8793 Aug, [facility] [place] [facility] [address] [id number] [place] [address]- 5296 Aug, [facility] [place] [facility] [address] [id number] [place] [address] 5814 Aug, [facility] [place] [facility] [address] [id number] [place] [address]- 8617 Aug, [facility] [place] [facility] [address] [id number] [place] [address]- 4520 Aug, [facility] [place] [facility] [address] [id number] [place] [address]- 2495 Aug, [facility] [place] [facility] [address] [id number] [place] [address]- 2912 Aug, [facility] [place] [facility] [address] [id number] [place] [address]- 1112 Aug, [facility] [place] [facility] [address] [id number] [place] [address]- 9578 Aug, [facility] [place] [facility] [address] [id number] [address] Aug, [facility] [place] [facility] [address] [id number] [place] [address]- 0729 Aug, [facility] [place] [facility] [address] [id number] [place] [address]- 1555 Aug, [facility] [place] [facility] [address] [id number] [place] [address]- 2230 Aug, [facility] [place] [facility] [address] [id number] [place] [address]- 4696 Aug, [facility] [address] [id number] [place] [address]- 2498 Aug, [facility] [place] [facility] [address] [id number] [place] [address]- 9731 Aug, [facility] [address] [id number] [place] [address]- 6237 Jul, [facility] [place] [facility] [address] [id number] [place] [address]- 6924 Jul, [facility] [address] [id number] [place] [address]- 3895 Jul, [facility] [place] [facility] [address] [id number] [place] [address]- 4869 Jul, [facility] [address] [id number] [place] [address]- 2880 Jul, [facility] [place] [facility] [address] [id number] [place] [address] Jul, [facility] [address] [id number] [place] [address]- 5180 Jun, [facility] [address] [id number] [place] [address]- 1945 Jun, [facility] [place] [facility] [address] [id number] [place] [address]- 1868 Jun, [facility] [place] [facility] [address] [id number] [place] [address]- 6463 Jun, [facility] [place] [facility] [address] [id number] [place] [address]- 9111 Jun, [facility] [place] [facility] [address] [id number] [place] [address]- 4767 Jun, [facility] [place] [facility] [address] [id number] [place] [address]- 5499 Jun, [facility] [place] [facility] [address] [id number] [place] [address]- 7233 Jun, [facility] [place] [facility] [address] [id number] [place] [address] Jun, [facility] [place] [facility] [address] [id number] [place] [address]- 3218 Jun, [facility] [place] [facility] [address] [id number] [place] [address]- 9003 May, [facility] [place] [facility] [address] [id number] [place] [address]- 8249 May, [facility] [place] [facility] [address] [id number] [place] [address]- 6136 May, [facility] [place] [facility] [address] [id number] [place] [address]- 4412 May, [facility] [place] [facility] [address] [id number] [place] [address]- 3589 May, [facility] [place] [facility] [address] [id number] [place] [address]- 3368 May, [facility] [place] [facility] [address] [id number] [place] [address]- 2430 May, [facility] [place] [facility] [address] [id number] [place] [address]- 4136 May, [facility] [place] [facility] [address] [id number] [place] [address]- 5348 May, [facility] [place] [facility] [address] [id number] [place] [address]- 7552 May, [facility] [place] [facility] [address] [id number] [place] [address]- 2687 17 May, 2013 [facility] [place] [facility] [address] [id number] [place] [address]- 7397 16 May, 2013 [facility] [place] [facility] [address] [id number] [place] [address]- 5512 May, [facility] [place] [facility] [address] [id number] [place] [address]- 6291 May, [facility] [place] [facility] [address] [id number] [place] [address]- 8430 May, [facility] [place] [facility] [address] [id number] [place] [address]- 6803 Apr, [facility] [place] [facility] [address] [id number] [place] [address]- 3766 Apr, [facility] [place] [facility] [address] [id number] [place] [address]- 6190 Apr, [facility] [place] [facility] [address] [id number] [place] [address]- 3319 Mar, [facility] [place] [facility] [address] [id number] [place] [address]- 9572 Mar, [facility] [place] [facility] [address] [id number] [place] [address]- 3730 Mar, [facility] [place] [facility] [address] [id number] [place] [address]- 6994 Mar, [facility] [place] [facility] [address] [id number] [place] [address]- 1852 Mar, [facility] [place] [facility] [address] [id number] [place] [address]- 8726 Mar, [facility] [place] [facility] [address] [id number] [place] [address]- 9511 Feb, [facility] [place] [facility] [address] [id number] [place] [address]- 2313 Feb, [facility] [place] [facility] [address] [id number] [place] [address]- 5653 Feb, [facility] [place] [facility] [address] [id number] [place] [address]- 8204 Feb, [facility] [place] [facility] [address] [id number] [place] [address]- 3556 Feb, [facility] [address] [id number] [place] [address]- 9771 Feb, [facility] [address] [id number] [place] [address]- 0726 Feb, [facility] [address] [id number] [place] [address]- 0239 Feb, [facility] [address] [id number] [place] [address]- 4340 Feb, [facility] [address] [id number] [place] [address]- 9098 Feb, [facility] [address] [id number] [place] [address]- 5384 Jan, [facility] [address] [id number] [place] [address]- 6724 Jan, [facility] [address] [id number] [place] [address]- 6658 Jan, [facility] [address] [id number] [place] [address]- 0382 Jan, [facility] [address] [id number] [place] [address]- 4309 December, [facility] [address] [id number] [place] [address]- 7091 December, [facility] [address] [id number] [place] [address]- 4966 December, [facility] [address] [id number] [place] [address]- 9392 Nov[facility] [address] [id number] [place] [address]- 0591 Nov, [facility] [address] [id number] [place] [address]- 9772 Nov, [facility] [place] [facility] [address] [id number] [place] [address]- 7776 Nov, [facility] [address] [id number] [place] [address]- 4830 Nov, [facility] [address] [id number] [place] [address]- 7257 Nov, [facility] [place] [facility] [address] [id number] [place] [address]- 9563 Oct, [facility] [address] [id number] [place] [address]- 0558 Oct, [facility] [place] [facility] [address] [id number] [place] [address]- 8117 Oct, [facility] [address] [id number] [place] [address]- 3281 Sep, [facility] [address] [id number] [place] [address]- 0483 Sep, [facility] [address] [id number] [place] [address]- 5804 Sep, [facility] [address] [id number] [place] [address]- 4815 Aug, [facility] [address] [id number] [place] [address]- 9334 Aug, [facility] [place] [facility] [address] [id number] [place] [address]- 8124 Aug, [facility] [place] [facility] [address] [id number] [place] [address]- 6195 Aug, [facility] [place] [facility] [address] [id number] [place] [address]- 7706 Jul, [facility] [place] [facility] [address] [id number] [place] [address]- 9257 Jul, [facility] [address] [id number] [address]- 2231 Jul, [facility] [place] [facility] [address] [id number] [place] [address]- 3173 Jul, [facility] [place] [facility] [address] [id number] [place] [address]- 6675 Jun, [facility] [place] [facility] [address] [id number] [place] [address]- 6381 Jun, [facility] [place] [facility] [address] [id number] [place] [address]- 9263 Jun, [facility] [place] [facility] [address] [id number] [place] [address], [place] [address]- 8728 Jun, [facility] [place] [facility] [address] [id number] [place] [address]- 8766 Jun, [facility] [place] [facility] [id number] [place] [address]- 3594 Jun, [facility] [place] [facility] [address] [id number] [address]- 9600 Jun, [facility] [place] [facility] [address] [facility] [id number] [place] [address]- 3173 Jun, [facility] [place] [facility] [address] [facility] [id number] [place] [address]- 3188 May, [facility] [place] [facility] [address] [facility] [id number] [place] [address]- 2191 30 May, 2012 [facility] [place] [facility] [address] [id number] [place] [address]- 9177 18 May, 2012 [facility] [place] [facility] [address] [id number] [place] [address]- 7519 18 May, 2012 [facility] [place] [facility] [address] [facility] [id number] [place] [address]- 4533 2012 [facility] [place] [facility] [address] [facility] [id number] [place] [address]- 1778 13 May, 2012 [facility] [place] [facility] [address] [id number] [place] [address]- 6117 11 May, 2012 [facility] [place] [facility] [address] [id number] [place] [address]- 3256 11 May, 2012 [facility] [place] [facility] [address] [id number] [place] [address]- 2546 10 May, 2012 [facility] [place] [facility] [address] [id number] [place] [address]- 8412 08 May, 2012 [facility] [place] [facility] [address] [id number] [place] [address]- 5227 24 Apr, 2012 [facility] [place] [facility] [address] [id number] [place] [address]- 8176 19 Apr, 2012 [facility] [place] [facility] [address] [id number] [place] [address]- 6231 18 Apr, 2012 [facility] [place] [facility] [address] [id number] [place] [address]- 5183 17 Apr, 2012 [facility] [place] [facility] [address] [id number] [place] [address]- 7307 16 Apr, 2012 [facility] [place] [facility] [address] [id number] [place] [address]- 9885 10 Apr, 2012 [facility] [place] [facility] [address] [id number] [place] [address]- 7157 29 Mar, 2012 [facility] [place] [facility] [address] [id number] [place] [address]- 2547 27 Mar, 2012 [facility] [place] [facility] [address] [id number] [place] [address] 2544 23 Mar, 2012 [facility] [place] [facility] [address] [id number] [place] [address] 2546 13 Mar, 2012 [facility] [place] [facility] [address] [id number] [place] [address] 2548 07 Mar, 2012 [facility] [place] [facility] [address] [id number] [place] [address]- 254 Mar, [facility] [place] [facility] [address] [id number] [place] [address]- 6084 Feb, [facility] [place] [facility] [address] [id number] [place] [address]- 5456 Feb, [facility] [place] [facility] [address] [id number] [place] [address]- 9016 Feb, [facility] [place] [facility] [address] [id number] [place] [address]- 8145 Feb, [facility] [place] [facility] [address] [id number] [place] [address]- 2506 Feb, [facility] [place] [facility] [address] [id number] [place] [address]- 3826 Feb, [facility] [place] [facility] [address] [id number] [place] [address]- 5476 Feb, [facility] [place] [facility] [address] [id number] [place] [address]- 6975 Feb, [facility] [place] [facility] [address] [id number] [place] [address]- 2995 Feb, [facility] [place] [facility] [address] [id number] [place] [address]- 2696 Jan, [facility] [place] [facility] [address] [id number] [place] [address]- 9052 Jan, [facility] [place] [facility] [address] [id number] [place] [address]- 0130 Jan, [facility] [place] [facility] [address] [id number] [place] [address]- 2223 Jan, [facility] [place] [facility] [address] [id number] [place] [address]- 9968 Jan, [facility] [place] [facility] [address] [id number] [place] [address]- 5432 Jan, [facility] [place] [facility] [address] [id number] [place] [address]- 2530 Jan, [facility] [address] [id number] [place] [address]- 8895 Jan, [facility] [place] [facility] [address] [id number] [place] [address]- 0476 Jan, [facility] [address] [id number] [place] [address]- 1463 December, [facility] [address] [id number] [place] [address]- 7863 December, [facility] [address] [id number] [place] [address]- 3877 December, [facility] [address] [id number] [place] [address]- 2923 December, [facility] [address] [id number] [place] [address]- 0261 December, [facility] [address] [id number] [place] [address]- 5417 December, [facility] [address] [id number] [place] [address]- 9425 December, [facility] [address] [id number] [place] [address]- 2521 December, [facility] [address] [id number] [place] [address]- 0807 December, [facility] [address] [id number] [place] [address]- 5074 December, [facility] [place] [facility] [address] [id number] [place] [address]- 2237 Nov, [facility] [place] [facility] [address] [id number] [place] [address]- 4935 Nov, [facility] [address] [id number] [place] [address]- 5952 Nov, [facility] [place] [facility] [address] [id number] [place] [address]- 6867 20 Nov, 2011 [facility] [address] [id number] [place] [address]- 0438 16 Nov, 2011 [facility] [address] [id number] [place] [address]- 4936 13 Nov, 2011 [facility] [address] [id number] [place] [address]- 8783 09 Nov, 2011 [facility] [address] [id number] [place] [address]- 6548 06 Nov, 2011 [facility] [address] [id number] [place] [address]- 7645 05 Nov, 2011 [facility] [address] [id number] [place] [address]- 3673 Nov, [facility] [address] [id number] [place] [address]- 6244 30 Oct, 2011 [facility] [address] [id number] [place] [address]- 5081 29 Oct, 2011 [facility] [address] [id number] [place] [address]- 2182 23 Oct, 2011 [facility] [address] [id number] [place] [address]- 1599 23 Oct, 2011 [facility] [address] [id number] [place] [address]- 9391 21 Oct, 2011 [facility] [place] [facility] [address] [id number] [place] [address]- 9501 20 Oct, 2011 [facility] [place] [facility] [address] [id number] [place] [address]- 0001 19 Oct, 2011 [facility] [place] [facility] [address] [id number] [place] [address]- 3935 19 Oct, 2011 [facility] [place] [facility] [address] [id number] [place] [address]- 8601 16 Oct, 2011 [facility] [place] [facility] [address] [id number] [place] [address]- 2042 14 Oct, 2011 [facility] [place] [facility] [address] [id number] [place] [address]- 9756 14 Oct, 2011 [facility] [place] [facility] [address] [facility] [id number] [place] [address]- 9932 09 Oct, 2011 [facility] [place] [facility] [address] [id number] [place] [address]- 5201 08 Oct, 2011 [facility] [place] [facility] [address] [id number] [place] [address]- 2558 06 Oct, 2011 [facility] [place] [facility] [address] [facility] [id number] [place] [address]- 1144 02 Oct, 2011 [facility] [place] [facility] [address] [facility] [id number] [place] [address]- 9772 28 Sep, 2011 [facility] [place] [facility] [address] [facility] [id number] [place] [address]- 9320 24 Sep, 2011 [facility] [place] [facility] [address] [facility] [id number] [place] [address]- 7430 20 Sep, 2011 [facility] [place] [facility] [address] [facility] [id number] [place] [address]- 4531 17 Sep, 2011 [facility] [place] [facility] [address] [facility] [id number] [place] [address]- 9417 16 Sep, 2011 [facility] [place] [facility] [address] [facility] [id number] [place] [address]- 9901 14 Sep, 2011 [facility] [place] [facility] [address] [facility] [id number] [place] [address]- 9606 13 Sep, 2011 [facility] [place] [facility] [address] [facility] [id number] [place] [address]- 2680 10 Sep, 2011 [facility] [place] [facility] [address] [facility] [id number] [address]- [address] 06 Sep, 2011 [facility] [place] [facility] [address] [id number] [place] [address] Sep, [facility] [place] [facility] [address] [id number] [place] [address] Sep, [facility] [place] [facility] [address] [id number] [place] [address] Aug, [facility] [place] [facility] [address] [id number] [place] [address] Aug, [facility] [place] [facility] [address] [id number] [place] [address] Aug, [facility] [place] [facility] [address] [id number] [place] [address] Aug, [facility] [place] [facility] [address] [id number] [place] [address] Aug, [facility] [place] [facility] [address] [id number] [place] [address] 17 Aug, 2011 [facility] [place] [facility] [address] [id number] [place] [address] Aug, [facility] [place] [facility] [address] [id number] [place] [address] 17 Aug, 2011 [facility] [place] [facility] [address] [id number] [place] [address] 285[address] 16 Aug, 2011 [facility] [place] [facility] [address] [id number] [address] 13 Aug, 2011 [facility] [place] [facility] [address] [id number] [place] [address] 11 Aug, 2011 [facility] [place] [facility] [address] [id number] [place] [address] 10 Aug, 2011 [facility] [place] [facility] [address] [id number] [place] [address] 09 Aug, 2011 [facility] [place] [facility] [address] [id number] [place] [address] Aug, [facility] [address] [id number] [place] [address] Aug, [facility] [address] [id number] [place] [address] Aug, [facility] [address] [id number] [place] [address] Aug, [facility] [address] [id number] [place] [address] 30 Jul, 2011 [facility] [id number] [place] [address], [place] [address] Jul, [facility] [address] [id number] [place] [address] Jul, [facility] [id number] [place] [address] Jul, [facility] [address] [id number] [place] [address] Jul, [facility] [address] [id number] [place] [address] Jul, [facility] [address] [id number] [place] [address] 17 Jul, 2011 [facility] [address] [id number] [place] [address] 16 Jul, 2011 [facility] [place] [facility] [address] [id number] [place] [address] 07 Jul, 2011 [facility] [place] [facility] [address] [id number] [place] [address] 07 Jul, 2011 [facility] [place] [facility] [address] [id number] [place] [address] 06 Jul, 2011 [facility] [place] [facility] [address] [id number] [place] [address] 18 Jun, 2011 [facility] [place] [facility] [address] [id number] [place] [address] Jun, [facility] [address] [id number] [place] [address] Jun, IMMUNIZATIONS No Known Immunizations SOCIAL HISTORY Never Assessed REASON FOR VISIT Pain management (chronic), reports leg pains at night, describes as aches. CBrumbackRN PLAN OF CARE Activity Details Follow Up 3 Months Reason:chronic pain VITAL SIGNS Height 61 in 2017-10-08 Weight 101.3 lbs 2017-10-08 Temperature 98.2 degrees Fahrenheit 2017-10-08 Heart Rate 62 bpm 2017-10-08 Respiratory Rate 16 2017-10-08 BMI 19.14 kg/m2 2017-10-08 Blood pressure systolic 92 mmHg 2017-10-08 Blood pressure diastolic 64 mmHg 2017-10-08 MEDICATIONS Medication Instructions Dosage Frequency Start Date End Date Duration Status Ativan 0.5 MG Orally Once a day 1 tablet as needed 24h December, 28 days Active Oxycodone HCl 5 MG Orally Once a day 1 tablet at bedtime 24h Sep, 28 days Active Nadolol 20 MG Orally Once a day 1 tablet 24h 90 days Active Aciphex 20 mg Orally Once a day 1 tablet 24h 30 Active Omeprazole 20 mg Orally Once a day 1 capsule 24h Jul, 30 day(s ) Active Folic Acid 1 MG Orally Once [...]
--- OUTSIDE RECORDS SUMMARY | 2018-08-05 03:23 | XMS REPORT ---
Author Author HEATHER FINE [facility] Address [address] [place] [address] Care Team Providers Care Cat Hooker Name Role Phone HEATHER FINE Unavailable PROBLEMS Type Condition ICD9-CM Code OOY55-CV Code Onset Dates Condition Status SNOMED Code Problem Asthma J45.909 Active 033510872 Problem History of hepatitis C Z86.19 Active 11068749517205 Problem Secondary esophageal varices with bleeding I85.11 Active 50461866 Problem Unspecified cirrhosis of liver K74.60 Active 542086619 Problem Anxiety F41.9 Active 54254955 Problem Dysthymia F34.1 Active 30373320 Problem Chronic back pain M54.9 Active 318304705 Problem Splenomegaly R16.1 Active 55766611 Problem 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 Active 070896348 Problem Thrombocytosis D47.3 Active 5009126 Problem Lymphocytosis D72.820 Active 90846283 ALLERGIES Unknown Allergies SOCIAL HISTORY No smoking Hx information available PLAN OF CARE VITAL SIGNS MEDICATIONS Unknown Medications RESULTS No Results PROCEDURES No Known procedures IMMUNIZATIONS No Known Immunizations
--- OUTSIDE RECORDS SUMMARY | 2018-08-05 03:24 | XMS REPORT ---
Author Author HEATHER FINE Organization [facility] Address [address] [place] [address] Care Team Providers Care Autocad Operator Name Role Phone HEATHER FINE Unavailable PROBLEMS Type Condition ICD9-CM Code [id number] Code Onset Dates Condition Status SNOMED Code Problem Asthma J45.909 Active 098455459 Problem History of hepatitis C Z86.19 Active 74279827938323 Problem Secondary esophageal varices with bleeding I85.11 Active 51040000 Assessment Dysuria R30.0 Jul, Active 11288884 Problem Anxiety F41.9 Active 68426769 Problem Dysthymia F34.1 Active 54588599 Problem Chronic back pain M54.9 Active 432233079 Problem Splenomegaly R16.1 Active 54802142 Problem 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 Active 126260045 Problem Thrombocytosis D47.3 Active 6473985 Problem Lymphocytosis D72.820 Active 53985526 ALLERGIES Unknown Allergies SOCIAL HISTORY No smoking Hx information available PLAN OF CARE VITAL SIGNS MEDICATIONS Medication Instructions Dosage Frequency Start Date End Date Duration Status Ativan 0.5 MG Orally 3 times a day 1 tablet as needed 8h December, Active RESULTS No Results PROCEDURES No Known procedures IMMUNIZATIONS No Known Immunizations
--- OUTSIDE RECORDS SUMMARY | 2018-08-05 03:24 | XMS REPORT ---
Author Author HEATHER FINE [facility] eClinicalWorks Address Unknown Phone Unavailable Care Team Providers Care Package Sealer Machine Name Role Phone HEATHER FINE CP Unavailable Allergies No Known Allergies Problems Problem Type Condition Code Onset Dates Condition Status Problem Anxiety F41.9 Active Problem Secondary esophageal varices with bleeding I85.11 Active Problem Asthma J45.909 Active Assessment Chronic back pain M54.9 Active Problem Chronic back pain M54.9 Active Problem Thrombocytosis D47.3 Active Problem Dysthymia F34.1 Active Problem 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 Active Problem History of hepatitis C Z86.19 Active Problem Lymphocytosis D72.820 Active Problem Splenomegaly R16.1 Active Medications Medication Code System Code Instructions Start Date End Date Status Dosage Oxycodone HCl [facility] [address]-14 5 MG Orally Once a day Mar 29, 2015 1 tablet at bedtime Results No Known Results Summary Purpose eClinicalWorks Submission
--- OUTSIDE RECORDS SUMMARY | 2018-08-05 03:24 | XMS REPORT ---
Author Author HEATHER FINE Organization [facility] Address [address] [place] [address] Care Team Providers Care Group Teacher Name Role Phone HEATHER FINE Unavailable PROBLEMS Type Condition ICD9-CM Code GIW83-GT Code Onset Dates Condition Status SNOMED Code Problem Unspecified cirrhosis of liver K74.60 Active 125667015 Problem Lymphocytosis D72.820 Active 35996820 Problem Secondary esophageal varices with bleeding I85.11 Active 66422235 Problem Anxiety F41.9 Active 37586124 Problem Asthma J45.909 Active 894722384 Problem Chronic back pain M54.9 Active 416553776 Problem Dysthymia F34.1 Active 07503839 Problem Thrombocytosis D47.3 Active 2176072 Problem Splenomegaly R16.1 Active 84824732 Problem 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 Active 139287417 Problem History of hepatitis C Z86.19 Active [id number] ALLERGIES No Information ENCOUNTERS Encounter Location Date Diagnosis [place] [id number] [place] [address] 52851- 3030 Nov, Chronic back pain M54.9 and Anxiety F41.9 [place] [id number] [place] [address] 93791- 6647 Oct, Chronic back pain M54.9 and Anxiety F41.9 [place] [id number] [place] [address] 40814- 4630 Oct, [place] [address] 22465- 5113 Sep, Chronic back pain M54.9 ; Anxiety F41.9 ; Pain of left leg M79.605 and Pain in right leg M79.604 [place] [address] 18763- 5232 Sep, Anxiety F41.9 and Chronic back pain M54.9 [facility] [id number] [place] [address] 36866- 3542 Sep, [facility] [id number] [place] [address] 68864- 0262 Aug, Anxiety F41.9 [facility] [address] 20742- 2094 Jul, Anxiety F41.9 [facility] [address] 51129- 3955 Jul, [facility] [id number] [place] [address] 62783- 0092 Jul, Viral syndrome B34.9 ; Chronic back pain M54.9 and Dysuria R30.0 [facility] [id number] [place] [address] 25112- 7513 Jun, [facility] [id number] [place] [address] 38493- 3868 Jun, Anxiety F41.9 [facility] [id number] [place] [address] 65529 -0275 Jun, Dysuria R30.0 and Acute cystitis without hematuria N30.00 [facility] [id number] [place] [address] 54671- 2387 Jun, [facility] [id number] [place] [address] 03432- 0492 May, Anxiety F41.9 [facility] [id number] [place] [address] 23552- 6443 May, Anxiety F41.9 [facility] [id number] [place] [address] 66223- 0481 Apr, [facility] [id number] [place] [address] 25685- 2454 Apr, Chronic back pain M54.9 and Anxiety F41.9 [facility] [address] [address] 8319 Mar, [facility] [id number] [address]- 4843 Mar, [facility] [address] [place] [address] 05007- 6898 Mar, Well woman exam Z01.419 ; Cervical cancer screening Z12.4 ; Breast cancer screening Z12.31 and Colon cancer screening Z12.11 [facility] [id number] [place] [address] 56536- 1880 Mar, Chronic back pain M54.9 and Anxiety F41.9 [facility] [id number] [address] 1886 Mar, [facility] [id number] [place] [address] 63019- 8321 Feb, Chronic back pain M54.9 and Anxiety F41.9 [facility] [address] [place] [address] 21839- 8528 Feb, [facility] [address] [place] [address] 25908- 8399 Feb, [facility] [address] [address]- 8777 Jan, Chronic back pain M54.9 and Anxiety F41.9 [facility] [address] [address]- 1984 Jan, [facility] [id number] [place] [address] 90185- 9988 Jan, [facility] [id number] [address]- 7479 December, Chronic back pain M54.9 and Anxiety F41.9 [facility] [id number] [place] [address] 72058- 6056 Nov, Chronic back pain M54.9 and Anxiety F41.9 [facility] [id number] [place] [address] 50705- 0951 Oct, Chronic back pain M54.9 and Anxiety F41.9 [facility] [id number] [place] [address] 92513- 0576 Oct, Chronic back pain M54.9 [facility] [id number] [place] [address] 66506- 0506 Sep, Anxiety F41.9 and Chronic back pain M54.9 [facility] [id number] [place] [address] 19536- 9440 Aug, Anxiety F41.9 and Chronic back pain M54.9 [facility] [id number] [place] [address] 98462- 8616 Aug, [facility] [id number] [place] [address] 12840- 0737 Jul, Chronic back pain M54.9 and Anxiety F41.9 [facility] [id number] [place] [address] 09064- 5540 Jul, Anxiety F41.9 and Chronic back pain M54.9 [facility] [id number] [id number] Jul, [facility] [address] [place] [address] 15182- 2940 Jul, Anxiety F41.9 [facility] [address] [place] [address] 09773- 5075 Jul, Anxiety F41.9 and Dysuria R30.0 [facility] [address] [place] [address] 75618- 4906 Jul, Chronic back pain M54.9 and Anxiety F41.9 [facility] [id number] [place] [address] 27414- 4355 Jun, Chronic back pain M54.9 [facility] [id number] [place] [address] 89908- 2026 Jun, Chronic back pain M54.9 [facility] [address] [facility] [id number] [address] 2546 May, Anxiety F41.9 [facility] [address] [facility] [id number] [place] [address] 94753 2546 May, Chronic back pain M54.9 [facility] [address] [facility] [id number] [place] [address] 33750- 5336 Apr, [facility] [address] [facility] [id number] [place] [address] 89190- 2256 Apr, [facility] [address] [facility] [id number] [place] [address] 54973- 8486 Apr, [facility] [address] [facility] [id number] [place] [address] 83831 2549 Apr, Chronic back pain M54.9 [facility] [address] [facility] [id number] [place] [address] 45406- 8110 Mar, Chronic back pain M54.9 [facility] [address] [facility] [id number] [place] [address] 95377- 5210 Feb, Grief F43.20 [facility] [address] [facility] [id number] [place] [address] 94034- 1471 Feb, Chronic back pain M54.9 and Anxiety F41.9 [facility] [address] [facility] [id number], [place] [address]- 8046 Feb, Chronic back pain M54.9 [facility] [address] [facility] [id number] [place] [address] 51450- 4076 Jan, Chronic back pain M54.9 [facility] [address] [facility] [id number] [place] [address] 93482- 7095 December, [facility] [id number] [place] [address] 53586- 4491 December, Grief F43.20 [facility] [id number] [place] [address] 83036- 7872 Nov, [facility] [id number] [place] [address] 30015- 4836 Oct, Cervicalgia M54.2 ; Secondary esophageal varices with bleeding I85.11 and Mouth pain K13.79 [facility] [id number] [place] [address] 32523- 3454 Oct, [facility] [id number] [place] [address] 50503- 4928 Oct, [facility] [id number] [place] [address] 15394- 6791 Sep, [facility] [id number] [place] [address] 46195- 2682 Sep, Acute maxillary sinusitis, recurrence not specified J01.00 [facility] [id number] [place] [address] 84238- 1203 Aug, [facility] [id number] [place] [address] 65443- 2462 Aug, [facility] [id number] [place] [address] 65271- 9861 Aug, Dysuria R30.0 and Chronic back pain M54.9 [facility] [id number] [place] [address] 13763- 5414 Jul, [facility] [id number] [place] [address] 36790- 5698 Jul, [facility] [id number] [place] [address] 00786- 9448 10 Jul, 2015 [facility] [id number] [place] [address] 86929- 8234 Jul, Chronic back pain M54.9 [facility] [address] [place] [address] 08215- 2856 Jul, Dysthymia F34.1 and Chronic back pain M54.9 [facility] [id number] [place] [address] 39198- 2099 Jun, [facility] [address] 81018- 4046 Jun, [facility] [id number] [place] [address] 71481- 0338 May, [facility] [id number] [place] [address] 49672- 5904 May, [facility] [id number] [place] [address] 76939- 3667 May, [facility] [id number] [place] [address] 06245- 9651 May, Encounter for immunization Z23 [facility] [id number] [place] [address] 60049- 4453 Apr, [facility] [id number] [place] [address] 78797- 8794 Apr, [facility] [address] [place] [address] 86233- 5028 Mar, [facility] [id number] [place] [address] 35638- 0915 Mar, Back pain 724.5 [facility] [id number] [place] [address] 71405- 1426 Mar, Cough 786.2 and Back pain 724.5 [facility] [id number] [place] [address] 30287- 9765 Mar, [facility] [id number] [place] [address] 11826- 4518 Mar, [facility] [place] [facility] [address] [id number] [place] [address]- 3032 December, [facility] [place] [facility] [address] [id number] [place] [address]- 6000 December, [facility] [place] [facility] [address] [id number] [place] [address]- 1172 Nov, [facility] [place] [facility] [address] [id number] [place] [address]- 6563 Nov, [facility] [place] [facility] [address] [id number] [place] [address]- 3695 Oct, [facility] [place] [facility] [address] [id number] [place] [address]- 5280 Oct, [facility] [place] [facility] [address] [facility] [id number] [place] [address]- 8902 Sep, [facility] [place] [facility] [address] [id number] [place] [address]- 6598 Sep, [facility] [place] [facility] [address] [id number] [place] [address]- 1911 Sep, [facility] [place] [facility] [address] [facility] [id number] [place] [address]- 3756 Sep, [facility] [place] [facility] [address] [id number] [place] [address]- 5886 Sep, [facility] [place] [facility] [address] [id number] [place] [address]- 7354 Sep, [facility] [place] [facility] [address] [id number] [place] [address]- 6521 Sep, [facility] [place] [facility] [address] [id number] [place] [address]- 6525 Sep, [facility] [place] [facility] [address] [facility] [id number] [place] [address]- 8422 Aug, [facility] [place] [facility] [address] [id number] [place] [address]- 8691 14 Aug, 2014 [facility] [address] [id number] [place] [address]- 8642 14 Aug, 2014 [facility] [place] [facility] [address] [id number] [place] [address]- 8766 13 Aug, 2014 [facility] [place] [facility] [address] [id number] [place] [address]- 8500 13 Aug, 2014 [facility] [place] [facility] [address] [id number] [place] [address]- 9545 12 Aug, 2014 [facility] [place] [facility] [address] [id number] [place] [address]- 8762 Aug, [facility] [place] [facility] [address] [id number] [place] [address]- 4679 Jul, [facility] [address] [id number] [place] [address]- 1133 Jul, [facility] [place] [facility] [address] [id number] [place] [address]- 3955 Jul, [facility] [place] [facility] [address] [id number] [place] [address]- 0204 Jul, [facility] [place] [facility] [address] [id number] [place] [address]- 2681 15 Jul, 2014 [facility] [place] [facility] [address] [id number] [place] [address]- 8959 Jul, [facility] [place] [facility] [address] [id number] [place] [address]- 6807 Jul, [facility] [place] [facility] [address] [id number] [place] 1181 Jul, [facility] [place] [facility] [address] [id number] [place] [address]- 0268 Jun, [facility] [place] [facility] [address] [id number] [place] [address]- 2920 Jun, [facility] [place] [facility] [address] [id number] [place] [address]- 5327 Jun, [facility] [place] [facility] [address] [id number] [place] 5045 Jun, [facility] [place] [facility] [address] [id number] [place] [address]- 5503 Jun, [facility] [place] [facility] [address] [id number] [place] [address]- 9850 Jun, [facility] [place] [facility] [address] [id number] [place] [address]- 7457 Jun, [facility] [place] [facility] [address] [id number] [place] [address]- 2242 May, [facility] [place] [facility] [address] [id number] [place] [address]- 8424 May, [facility] [place] [facility] [address] [id number] [place] [address]- 0713 May, [facility] [place] [facility] [address] [id number] [place] [address]- 1855 May, [facility] [place] [facility] [address] [id number] [place] [address]- 8549 May, [facility] [place] [facility] [address] [id number] [place] [address]- 2209 2014 [facility] [place] [facility] [address] [id number] [place] [address]- 1521 2014 [facility] [place] [facility] [address] [id number] [place] [address]- 7653 2014 [facility] [place] [facility] [address] [id number] [place] [address]- 0381 13 May, 2014 [facility] [place] [facility] [address] [id number] [place] [address]- 4744 13 May, 2014 [facility] [place] [facility] [address] [id number] [place] [address]- 0072 May, [facility] [place] [facility] [address] [id number] [place] [address]- 1321 May, [facility] [place] [facility] [address] [id number] [place] [address]- 7250 May, [facility] [place] [facility] [address] [id number] [place] [address]- 2775 May, [facility] [place] [facility] [address] [id number] [place] [address]- 7626 Apr, [facility] [place] [facility] [address] [id number] [place] [address]- 8101 Apr, [facility] [place] [facility] [address] [id number] [place] [address]- 1419 Apr, [facility] [place] [facility] [address] [id number] [place] [address]- 9299 Apr, [facility] [place] [facility] [address] [id number] [place] [address]- 6289 Apr, [facility] [place] [facility] [address] [id number] [place] [address]- 1772 Apr, [facility] [place] [facility] [address] [id number] [place] [address]- 3587 Apr, [facility] [place] [facility] [address] [id number] [place] [address]- 9219 Mar, [facility] [place] [facility] [address] [id number] [place] [address]- 5699 Mar, [facility] [place] [facility] [address] [id number] [place] [address]- 6842 Mar, [facility] [place] [facility] [address] [id number] [place] [address]- 9184 Mar, [facility] [place] [facility] [address] [id number] [place] [address]- 6016 Mar, [facility] [place] [facility] [address] [id number] [place] [address]- 2546 Mar, [facility] [place] [facility] [address] [id number] [place] [address]- 6872 Feb, [facility] [place] [facility] [address] [id number] [place] [address]- 4726 Feb, [facility] [place] [facility] [address] [id number] [place] [address]- 6816 Feb, [facility] [place] [facility] [address] [id number] [place] [address] Feb, [facility] [place] [facility] [address] [id number] [place] [address] Feb, [facility] [place] [facility] [address] [id number] [place] [address] Feb, [facility] [place] [facility] [address] [id number] [place] [address] Feb, [facility] [address] [id number] [place] [address] Feb, [facility] [place] [facility] [address] [id number] [place] [address] Jan, [facility] [place] [facility] [address] [id number] [place] [address] Jan, [facility] [place] [facility] [address] [id number] [place] [address] December, [facility] [place] [facility] [address] [id number] [place] [address] December, [facility] [place] [facility] [address] [id number] [place] [address] December, [facility] [place] [facility] [address] [id number] [place] [address] December, [facility] [place] [facility] [address] [id number] [place] [id number] December, [facility] [place] [facility] [address] [id number] [place] [address] December, [facility] [place] [facility] [address] [id number] [place] [address] 31[address] December, [facility] [place] [facility] [address] [id number] [place] [address]- [address] December, [facility] [place] [facility] [address] [id number] [place] [address] December, [facility] [place] [facility] [address] [id number] [place] [address] December, [facility] [place] [facility] [address] [id number] [place] [address]- [address] December, [facility] [place] [facility] [address] [id number] [place] [address] December, [facility] [place] [facility] [address] [id number] [place] [address] Nov, [facility] [place] [facility] [address] [id number] [place] [address] Nov, [facility] [place] [facility] [address] [id number] [place] [address] Nov, [facility] [place] [facility] [address] [id number] [place] [address]- [address] Nov, [facility] [place] [facility] [address] [id number] [place] [address] Nov, [facility] [place] [facility] [address] [id number] [place] [address] Nov, [facility] [place] [facility] [address] [id number] [place] [address] Nov, [facility] [place] [facility] [address] [id number] [place] [address]- [address] Nov, [facility] [place] [facility] [address] [id number] [place] [address] Nov, [facility] [place] [facility] [address] [id number] [place] [address] Nov, [facility] [place] [facility] [address] [id number] [place] [address] Nov, [facility] [place] [facility] [address] [id number] [place] [address] Nov, [facility] [place] [facility] [address] [id number] [place] [address] Nov, [facility] [place] [facility] [address] [id number] [place] [address] Oct, [facility] [place] [facility] [address] [id number] [place] [address] Oct, [facility] [place] [facility] [address] [facility] [id number] [place] [address] Sep, [facility] [place] [facility] [address] [id number] [place] [address] Sep, [facility] [place] [facility] [address] [id number] [place] [address] Sep, [facility] [place] [facility] [address] [facility] [id number] [place] [address]- [address] Sep, [facility] [place] [facility] [address] [facility] [id number] [place] [address] 24 Sep, 2013 [facility] [place] [facility] [address] [facility] [id number] [place] [address] Sep, [facility] [place] [facility] [address] [facility] [id number] [place] [address] 8565 Sep, [facility] [place] [facility] [address] [facility] [id number] [place] [address] 2593 18 Sep, 2013 [facility] [place] [facility] [address] [id number] [address]269 Sep, [facility] [place] [facility] [address] [id number] [place] [address] 0725 Sep, [facility] [place] [facility] [address] [id number] [place] [address] 9650 Sep, [facility] [place] [facility] [address] [id number] [place] [address] 8351 Sep, [facility] [place] [facility] [address] [id number] [place] [address] 8710 Aug, [facility] [place] [facility] [address] [id number] [place] [address] 2334 Aug, [facility] [place] [facility] [address] [id number] [place] [address]- 5315 Aug, [facility] [place] [facility] [address] [id number] [place] [address] 7947 Aug, [facility] [place] [facility] [address] [id number] [place] [address] 2248 Aug, [facility] [place] [facility] [address] [id number] [place] [address]- 0898 Aug, [facility] [place] [facility] [address] [id number] [place] [address]- 6157 Aug, [facility] [place] [facility] [address] [id number] [place] [address]- 8184 Aug, [facility] [place] [facility] [address] [id number], [place] [address] 43[address] Aug, [facility] [place] [facility] [address] [id number] [place] [address] 8806 Aug, [facility] [place] [facility] [address] [id number] [place] [address]- 0820 Aug, [facility] [place] [facility] [address] [id number] [place] [address]- 1339 Aug, [facility] [place] [facility] [address] [id number] [place] [address]- 2451 13 Aug, 2013 [facility] [address] [id number] [place] [address] 8183 13 Aug, 2013 [facility] [place] [facility] [address] [id number] [place] [address]- 8568 Aug, [facility] [address] [id number] [place] [address]- 0074 Aug, [facility] [place] [facility] [address] [id number] [place] [address]- 3487 Aug, [facility] [address] [id number] [place] [address]- 5140 Aug, [facility] [address] [id number] [place] [address]- 3585 Aug, [facility] [address] [id number] [place] [address]- 0977 Aug, [facility] [address] [id number] [place] [address]- 7857 Aug, [facility] [place] [facility] [address] [id number] [place] [address]- 5397 Aug, [facility] [address] [id number] [place] [address]- 7744 Aug, [facility] [address] [id number] [place] [address]- 7405 Jul, [facility] [place] [facility] [address] [id number] [place] [address]- 8879 Jul, [facility] [place] [facility] [address] [id number] [place] [address]- 1672 Jul, [facility] [place] [facility] [address] [id number] [place] [address]- 7379 Jul, [facility] [place] [facility] [address] [id number] [place] [address]- 5452 Jul, [facility] [place] [facility] [address] [id number] [place] [address]- 5369 Jul, [facility] [place] [facility] [address] [id number] [place] [address]- 0361 Jun, [facility] [place] [facility] [address] [id number] [place] [address]- 0357 Jun, [facility] [place] [facility] [address] [id number] [place] [address]- 4413 Jun, [facility] [place] [facility] [address] [id number] [place] [address]- 9335 Jun, [facility] [place] [facility] [address] [id number] [place] [address]- 4854 Jun, [facility] [place] [facility] [address] [id number] [place] [address]- 7687 Jun, [facility] [place] [facility] [address] [id number] [place] [address]- 0930 Jun, [facility] [place] [facility] [address] [id number] [place] [address]- 0497 Jun, [facility] [place] [facility] [address] [id number] [place] [address]- 6470 Jun, [facility] [place] [facility] [address] [id number] [place] [address]- 7709 Jun, [facility] [place] [facility] [address] [id number], [place] [address]- 3383 May, [facility] [place] [facility] [address] [id number] [place] [address]- 3148 May, [facility] [place] [facility] [address] [id number] [place] [address]- 9322 May, [facility] [place] [facility] [address] [id number] [place] [address]- 8832 May, [facility] [place] [facility] [address] [id number], [place] [address]- 3343 May, [facility] [place] [facility] [address] [id number] [place] [address]- 7696 24 May, 2013 [facility] [place] [facility] [address] [id number] [place] [address]- 8496 24 May, 2013 [facility] [place] [facility] [address] [id number] [place] [address]- 2126 May, [facility] [place] [facility] [address] [id number] [place] [address]- 3646 May, [facility] [place] [facility] [address] [id number] [place] [address]- 8898 May, [facility] [place] [facility] [address] [id number] [place] [address]- 4296 17 May, 2013 [facility] [place] [facility] [address] [id number] [place] [address]- 0082 16 May, 2013 [facility] [place] [facility] [address] [id number] [place] [address]- 1088 16 May, 2013 [facility] [place] [facility] [address] [id number] [place] [address]- 8113 16 May, 2013 [facility] [place] [facility] [address] [id number] [place] [address]- 1698 16 May, 2013 [facility] [place] [facility] [address] [id number], [place] [address]- 4239 24 Apr, 2013 [facility] [place] [facility] [address] [id number] [place] [address]- 3060 23 Apr, 2013 [facility] [place] [facility] [address] [id number] [place] [address]- 6272 Apr, [facility] [place] [facility] [address] [id number] [place] [address]- 4813 Mar, [facility] [place] [facility] [address] [id number] [place] [address]- 3257 Mar, [facility] [place] [facility] [address] [id number] [place] [address]- 8942 Mar, [facility] [address] [id number] [place] [address]- 4021 Mar, [facility] [place] [facility] [address] [id number] [place] [address]- 9370 Mar, [facility] [address] [id number] [place] [address]- 5920 Mar, [facility] [address] [id number] [place] [address]- 6942 Feb, [facility] [address] [id number] [place] [address]- 1508 Feb, [facility] [address] [id number] [place] [address]- 3215 Feb, [facility] [address] [id number] [place] [address]- 9064 Feb, [facility] [address] [id number] [place] [address]- 7779 Feb, [facility] [address] [id number] [place] [address]- 6978 Feb, [facility] [address] [id number] [place] [address]- 8744 Feb, [facility] [place] [facility] [address] [id number] [place] [address]- 9794 Feb, [facility] [address] [id number] [place] [address]- 0891 Feb, [facility] [place] [facility] [address] [id number] [place] [address]- 8902 Feb, [facility] [place] [facility] [address] [id number] [place] [address]- 2178 Jan, [facility] [place] [facility] [address] [id number] [place] [address]- 1105 Jan, [facility] [address] [id number] [place] [address]- 3904 Jan, [facility] [place] [facility] [address] [id number] [place] [address]- 5757 Jan, [facility] [address] [id number] [place] [address]- 1917 December, [facility] [place] [facility] [address] [id number] [place] [address]- 9727 December, [facility] [address] [id number] [place]887 December, [facility] [place] [facility] [address] [id number] [place] [address]- 1318 Nov, [facility] [place] [facility] [address] [id number] [place] [address]- 5370 Nov, [facility] [address] [id number] [place] [address]- 5616 Nov, [facility] [place] [facility] [address] [id number] [place] [address]- 3443 Nov, [facility] [place] [facility] [address] [id number] [place] [address]- 7741 Nov, [facility] [place] [facility] [address] [id number] [place] [address]- 2687 Nov, [facility] [place] [facility] [address] [id number] [place] [address]- 7521 Oct, [facility] [place] [facility] [address] [id number] [place] [address]- 2629 Oct, [facility] [place] [facility] [address] [id number] [place] [address]- 3202 Oct, [facility] [place] [facility] [address] [id number] [place] [address]- 7118 Sep, [facility] [place] [facility] [address] [id number] [place] [address]- 9894 Sep, [facility] [address] [id number] [place] [address]- 5559 Sep, [facility] [place] [facility] [address] [id number] [place] [address]- 3335 Aug, [facility] [place] [facility] [address] [id number] [place] [address]- 6956 Aug, [facility] [place] [facility] [address] [id number] [place] [address]- 0364 Aug, [facility] [place] [facility] [address] [id number] [place] [address]- 2899 Aug, [facility] [place] [facility] [address] [id number] [place] [address]- 4977 Jul, [facility] [address] [id number] [place] [address]42 Jul, [facility] [place] [facility] [address] [id number] [place] [address]- 0725 Jul, [facility] [place] [facility] [address] [id number] [place] [address]- 0423 Jul, [facility] [place] [facility] [address] [facility] [id number] [place] [address]- 3236 Jun, [facility] [place] [facility] [address] [id number] [place] [address]- 2553 Jun, [facility] [place] [facility] [address] [id number] [place] [address]- 3668 Jun, [facility] [place] [facility] [address] [id number] [place] [address]- 6568 Jun, [facility] [place] [facility] [address] [id number] [place] [address]- 6337 Jun, [facility] [place] [facility] [address] [id number] [place] [address]- 7654 Jun, [facility] [place] [facility] [address] [id number] [place] [address]- 3972 Jun, [facility] [place] [facility] [address] [id number] [place] [address]- 1273 Jun, [facility] [place] [facility] [address] [id number] [place] [address]- 2983 30 May, 2012 [facility] [place] [facility] [id number] [place] [address], [place] [address]- 0127 30 May, 2012 [facility] [place] [facility] [address] [id number] [place] [address]- 7108 May, [facility] [place] [facility] [address] [id number] [place] [address]- 4025 18 May, 2012 [facility] [place] [facility] [address] [id number] [place] [address]- 6696 2012 [facility] [place] [facility] [address] [id number] [place] [address]- 6420 13 May, 2012 [facility] [place] [facility] [address] [id number] [place] [address]- 2481 May, [facility] [place] [facility] [address] [id number] [place] [address]- 7707 11 May, 2012 [facility] [place] [facility] [address] [id number] [place] [address]- 3984 10 May, 2012 [facility] [place] [facility] [address] [id number], [place] [address]- 3351 08 May, 2012 [facility] [place] [facility] [address] [id number] [place] [address]- 7745 24 Apr, 2012 [facility] [place] [facility] [address] [id number] [place] [address]- 4371 19 Apr, 2012 [facility] [place] [facility] [address] [id number] [place] [address]- 9679 18 Apr, 2012 [facility] [place] [facility] [address] [id number] [place] [address]- 3580 17 Apr, 2012 [facility] [place] [facility] [address] [id number] [place] [address]- 4989 16 Apr, 2012 [facility] [place] [facility] [address] [id number] [place] Apr, [facility] [place] [facility] [address] [id number] [place] [address]- 6413 Mar, [facility] [place] [facility] [address] [id number] [place] [address]- 3181 Mar, [facility] [place] [facility] [address] [id number] [place] [address]- 9530 Mar, [facility] [place] [facility] [address] [id number] [place] [address]- 7367 Mar, [facility] [place] [facility] [address] [id number] [place] [address]- 0459 Mar, [facility] [place] [facility] [address] [id number] [place] [address]- 2105 Mar, [facility] [place] [facility] [address] [id number] [place] [address]- 6764 Feb, [facility] [place] [facility] [address] [id number] [place] [address]- 9261 Feb, [facility] [place] [facility] [address] [id number] [place] [address]- 3503 Feb, [facility] [place] [facility] [address] [id number] [place] [address]- 1230 Feb, [facility] [place] [facility] [address] [id number] [place] [address]- 6907 Feb, [facility] [place] [facility] [address] [id number] [place] [address]- 4911 Feb, [facility] [place] [facility] [address] [id number] [place] [address]- 4756 Feb, [facility] [place] [facility] [address] [id number] [place] [address]- 4454 Feb, [facility] [address] [id number] [place] [address]- 3504 Feb, [facility] [place] [facility] [address] [id number] [place] [address]- 3044 Jan, [facility] [address] [id number] [place] [address]- 9494 Jan, [facility] [place] [facility] [address] [id number] [place] [address]- 1976 Jan, [facility] [address] [id number] [place] [address]- 4621 Jan, [facility] [address] [id number] [place] [address]- 3425 Jan, [facility] [address] [id number] [place] [address]- 2664 Jan, [facility] [address] [id number] [place] [address]- 4137 Jan, [facility] [place] [facility] [address] [id number] [place] [address]- 7201 Jan, [facility] [address] [id number] [place] [address]- 3358 Jan, [facility] [place] [facility] [address] [id number] [place] [address]- 5123 December, [facility] [address] [id number] [place] [address]- 8558 December, [facility] [place] [facility] [address] [id number] [place] [address]- 6279 December, [facility] [place] [facility] [address] [id number] [place] [address]- 1166 December, [facility] [place] [facility] [address] [id number] [place]10 December, [facility] [address] [id number] [place] [address]- 8239 December, [facility] [place] [facility] [address] [id number] [place] [address]- 9551 December, [facility] [place] [facility] [address] [id number] [place] [address]- 2356 December, [facility] [place] [facility] [address] [id number] [place] [address]- 8397 December, [facility] [place] [facility] [address] [id number] [place] [address]- 0618 December, [facility] [place] [facility] [address] [id number] [place] [address]- 1222 Nov, [facility] [place] [facility] [address] [id number] [place] [address]- 8115 Nov, [facility] [place] [facility] [address] [id number] [place] [address]- 0622 Nov, [facility] [place] [facility] [address] [id number] [place] [address]- 5822 Nov, [facility] [place] [facility] [address] [id number] [place] [address]- 8093 16 Nov, 2011 [facility] [place] [facility] [address] [id number] [place] [address]- 5668 Nov, [facility] [place] [facility] [address] [id number] [place] [address]- 1779 Nov, [facility] [place] [facility] [address] [id number] [place] [address]- 8857 Nov, [facility] [place] [facility] [address] [id number] [place] [address]- 6092 05 Nov, 2011 [facility] [place] [facility] [address] [id number] [place] [address]- 5513 Nov, [facility] [place] [facility] [address] [id number], [place] [address]- 8489 30 Oct, 2011 [facility] [address] [id number] [place] [address]- 7817 29 Oct, 2011 [facility] [place] [facility] [address] [id number] [place] [address]- 6466 23 Oct, 2011 [facility] [address] [id number] [place] [address]- 8796 23 Oct, 2011 [facility] [place] [facility] [address] [id number] [place] [address]- 2903 21 Oct, 2011 [facility] [address] [id number] [place] [address]- 6447 20 Oct, 2011 [facility] [place] [facility] [address] [id number] [place] [address]- 1592 19 Oct, 2011 [facility] [address] [id number] [place] [address]- 4160 19 Oct, 2011 [facility] [address] [id number] [place] [address]- 6328 16 Oct, 2011 [facility] [address] [id number] [place] [address]- 1027 14 Oct, 2011 [facility] [address] [id number] [place] [address]- 3057 14 Oct, 2011 [facility] [place] [facility] [address] [id number] [place] [address]- 2341 09 Oct, 2011 [facility] [place] [facility] [address] [id number] [place] [address]- 8807 08 Oct, 2011 [facility] [place] [facility] [address] [id number] [place] [address]- 9593 06 Oct, 2011 [facility] [place] [facility] [address] [id number] [place] [address]- 4216 02 Oct, 2011 [facility] [place] [facility] [address] [id number] [place] [address]- 7389 28 Sep, 2011 [facility] [place] [facility] [address] [id number] [place] [address]- 6556 24 Sep, 2011 [facility] [place] [facility] [address] [id number] [place] [address]- 2986 20 Sep, 2011 [facility] [place] [facility] [address] [id number] [place] [address] 2546 17 Sep, 2011 [facility] [place] [facility] [address] [id number] [place] [address]- 9976 16 Sep, 2011 [facility] [place] [facility] [address] [id number] [place] [address]- 6104 14 Sep, 2011 [facility] [place] [facility] [address] [id number] [place] [address]- 8106 13 Sep, 2011 [facility] [place] [facility] [address] [id number] [place] [address]- 4946 10 Sep, 2011 [facility] [place] [facility] [address] [id number] [place] [address]- 7423 06 Sep, 2011 [facility] [place] [facility] [address] [id number] [place] [address] 03 Sep, 2011 [facility] [place] [facility] [address] [id number] [place] [address] Sep, [facility] [place] [facility] [address] [id number] [place] [address] Aug, [facility] [place] [facility] [address] [id number] [place] [address] Aug, [facility] [place] [facility] [address] [id number] [place] [address] Aug, [facility] [place] [facility] [address] [id number] [place] [address] 2012 Aug, [facility] [place] [facility] [address] [id number] [place] [address] Aug, [facility] [place] [facility] [address] [id number] [place] [address] 17 Aug, 2011 [facility] [address] [id number] [place] [address] 17 Aug, 2011 [facility] [address] [id number] [place] [address] 17 Aug, 2011 [facility] [address] [id number] [place] [address] 16 Aug, 2011 [facility] [address] [id number] [place] [address] 13 Aug, 2011 [facility] [address] [id number] [place] [address] 11 Aug, 2011 [facility] [address] [id number] [place] [address] 10 Aug, 2011 [facility] [address] [id number] [place] [address] Aug, [facility] [address] [id number] [place] [address] Aug, [facility] [address] [id number] [place] [address] Aug, [facility] [address] [id number] [place] [address] Aug, [facility] [address] [id number] [place] [address] Aug, [facility] [address] [id number] [place] [address] Jul, [facility] [place] [facility] [address] [id number] [place] [address] Jul, [facility] [place] [facility] [address] [id number] [place] [address] Jul, [facility] [address] [id number] [place] [address] Jul, [facility] [address] [facility] [id number], [place] [address] Jul, [facility] [address] [facility] [id number], [place] [address] Jul, [facility] [address] [facility] [id number], [place] [address] Jul, [facility] [id number], [place] [address] 16 Jul, 2011 [facility] [address] [facility] [id number], [place] [address] Jul, [facility] [id number], [place] [address] Jul, [facility] [id number], [place] [address] Jul, [facility] [id number], [place] [address] Jun, [facility] [address] [id number], [place] [address] Jun, [facility] [address] [id number], [place] [address] Jun, IMMUNIZATIONS No Known Immunizations SOCIAL HISTORY [...]
--- OUTSIDE RECORDS SUMMARY | 2018-08-05 03:25 | XMS REPORT ---
Author Author HEATHER FINE [facility] eClinicalWorks Address Unknown Phone Unavailable Care Team Providers Care Personal Financial Counselor Name Role Phone HEATHER FINE CP Unavailable Allergies No Known Allergies Problems Problem Type Condition Code Onset Dates Condition Status Problem Unspecified thrombocytopenia 287.5 Active Problem Anxiety state, unspecified 300.00 Active Problem Asthma, unspecified, unspecified status 493.90 Active Problem Lumbago 724.2 Active Problem Esophageal varices without mention of bleeding 456.1 Active Medications Medication Code System Code Instructions Start Date End Date Status Dosage Oxycodone HCl [facility] [address]-02 5 MG Orally Once a day at Mar 29, 2015 1 tablet Results No Known Results Summary Purpose eClinicalWorks Submission
--- OUTSIDE RECORDS SUMMARY | 2018-08-05 03:25 | XMS REPORT ---
Author Author HEATHER FINE Organization [facility] Address [address] [place] [address] Care Team Providers Care Social Work Case Manager Name Role Phone HEATHER FINE Unavailable PROBLEMS Type Condition ICD9-CM Code DUN82-TZ Code Onset Dates Condition Status SNOMED Code Problem Unspecified cirrhosis of liver K74.60 Active 131436360 Problem Lymphocytosis D72.820 Active 63037166 Problem Secondary esophageal varices with bleeding I85.11 Active 56937302 Problem Anxiety F41.9 Active 67765723 Problem Asthma J45.909 Active 344365821 Problem Chronic back pain M54.9 Active 846497641 Problem Dysthymia F34.1 Active 47239062 Problem Thrombocytosis D47.3 Active 6506228 Problem Splenomegaly R16.1 Active 32863357 Problem 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 Active 646691428 Problem History of hepatitis C Z86.19 Active [id number] ALLERGIES No Information ENCOUNTERS Encounter Location Date Diagnosis [place] [id number] [place] [address] 67107- 4658 Feb, [facility] [id number] [place] [address] 88857- 1070 Jan, [facility] [address] [id number] [place] [address] 93198- 9181 08 Jan, 2018 Chronic back pain M54.9 and Anxiety F41.9 [facility] [address] [id number] [place] [address] 17809- 2463 December, Chronic back pain M54.9 and Anxiety F41.9 [facility] [id number] [place] [address] 00380- 3082 Nov, Chronic back pain M54.9 and Anxiety F41.9 [place] [id number] [address] 5189 Oct, Chronic back pain M54.9 and Anxiety F41.9 [facility] [id number] [place] [address] 30786 2546 Oct, [facility] [id number] [place] [address] 58839- 0937 Sep, Chronic back pain M54.9 ; Anxiety F41.9 ; Pain of left leg M79.605 and Pain in right leg M79.604 [facility] [id number] [place] [address] 27495- 6020 Sep, Anxiety F41.9 and Chronic back pain M54.9 [facility] [id number] [place] [address] 90981- 1666 Sep, [facility] [id number] [place] [address] 29003- 8109 Aug, Anxiety F41.9 [facility] [id number] [place] [address] 89724- 7442 Jul, Anxiety F41.9 [facility] [id number] [place] [address] 01610- 0383 Jul, [facility] [id number] [place] [address] 67778- 5983 Jul, Viral syndrome B34.9 ; Chronic back pain M54.9 and Dysuria R30.0 [facility] [id number] [place] [address] 10121- 2898 Jun, [facility] [id number] [place] [address] 72669- 8786 Jun, Anxiety F41.9 [facility] [id number] [place] [address] 15916 -6337 16 Jun, 2017 Dysuria R30.0 and Acute cystitis without hematuria N30.00 [facility] [address] [place] [place] [address] 8479 Jun, [facility] [address] [address]- 0791 May, Anxiety F41.9 [facility] [id number], [place] [address]- 2679 May, Anxiety F41.9 [facility] [id number] [place] [address] 66732- 2518 Apr, [facility] [id number] [place] [address] 55600- 1704 Apr, Chronic back pain M54.9 and Anxiety F41.9 [facility] [id number] [place] [address] 80091- 1280 Mar, [facility] [id number] [place] [address] 98717- 3061 Mar, [facility] [id number] [place] [address] 21795- 8658 Mar, Well woman exam Z01.419 ; Cervical cancer screening Z12.4 ; Breast cancer screening Z12.31 and Colon cancer screening Z12.11 [facility] [address], [place] [address]- 8250 Mar, Chronic back pain M54.9 and Anxiety F41.9 [facility] [address], [place] [address]- 2667 Mar, [facility] [address], [place] [address]- 0057 Feb, Chronic back pain M54.9 and Anxiety F41.9 [facility] [address], [place] [address]- 9171 Feb, [facility] [address], [place] [address]- 1799 Feb, [facility] [address], [place] [address]- 5070 Jan, Chronic back pain M54.9 and Anxiety F41.9 [facility] [id number] [place] [address] 60613- 0906 Jan, [facility] [id number] [place] [address] 07342- 0186 Jan, [facility] [id number] [place] [address] 54933- 6755 December, Chronic back pain M54.9 and Anxiety F41.9 [facility] [id number] [place] [address] 95774- 6536 Nov, Chronic back pain M54.9 and Anxiety F41.9 [facility] [id number] [place] [address] 17159- 2929 Oct, Chronic back pain M54.9 and Anxiety F41.9 [facility] [id number] [place] [address] 64068- 4988 Oct, Chronic back pain M54.9 [facility] [id number] [place] [address] 75270- 0743 Sep, Anxiety F41.9 and Chronic back pain M54.9 [facility] [address], [place] [address]- 0533 Aug, Anxiety F41.9 and Chronic back pain M54.9 [facility] [address], [place] [address]- 7442 Aug, [facility] [address], [place] [address]- 2792 Jul, Chronic back pain M54.9 and Anxiety F41.9 [facility] [address], [place] [address]- 2462 Jul, Anxiety F41.9 and Chronic back pain M54.9 [facility] [place] [address] [facility] [id number] [place] [id number] Jul, [facility] [id number] [place] [address] 30126- 9776 Jul, Anxiety F41.9 [facility] [id number] [place] [address] 86822 2546 Jul, Anxiety F41.9 and Dysuria R30.0 [facility] [id number] [place] [address] 06880 2546 Jul, Chronic back pain M54.9 and Anxiety F41.9 [facility] [id number] [place] [address] 16308- 8666 Jun, Chronic back pain M54.9 [facility] [id number] [place] [address] 57308- 1716 Jun, Chronic back pain M54.9 [facility] [id number] [place] [address] 93230- 4306 May, Anxiety F41.9 [facility] [id number] [place] [address] 57067- 1548 May, Chronic back pain M54.9 [facility] [id number] [place] [address] 50988- 0366 Apr, [facility] [id number] [place] [address] 95997 2546 Apr, [facility] [id number] [place] [address] 29918 2546 Apr, [facility] [id number] [place] [address] 20449 2546 Apr, Chronic back pain M54.9 [facility] [id number] [place] [address] 813320- 1076 Mar, Chronic back pain M54.9 [facility] [id number] [place] [address] 81957- 4703 Feb, Grief F43.20 [facility] [id number] [place] [address] 21156- 7204 Feb, Chronic back pain M54.9 and Anxiety F41.9 [facility] [id number] [place] [address] 05972- 6390 Feb, Chronic back pain M54.9 [facility] [id number] [place] [address] 45240- 5510 Jan, Chronic back pain M54.9 [facility] [id number] [place] [address] 31470- 0867 December, [facility] [id number] [place] [address] 50292- 3548 December, Grief F43.20 [facility] [id number] [place] [address] 83134- 2592 Nov, [facility] [id number] [place] [address] 67009- 7768 Oct, Cervicalgia M54.2 ; Secondary esophageal varices with bleeding I85.11 and Mouth pain K13.79 [facility] [id number] [place] [address] 02424- 5545 Oct, [facility] [id number] [place] [address] 76147- 2002 Oct, [facility] [id number] [place] [address] 57333- 0893 Sep, [facility] [id number] [place] [address] 06044- 6960 Sep, Acute maxillary sinusitis, recurrence not specified J01.00 [facility] [id number] [place] [address] 17120- 4033 Aug, [facility] [id number] [place] [address] 81216- 8553 Aug, [facility] [address] [id number] [place] [address]- 1732 Aug, Dysuria R30.0 and Chronic back pain M54.9 [facility] [id number] [place] [address] 80402- 4003 Jul, [facility] [id number] [place] [address] 62505- 3939 Jul, [facility] [address] 63626- 1075 Jul, [facility] [id number] [place] [address] 00341- 6917 Jul, Chronic back pain M54.9 [facility] [id number] [place] [address] 27431- 5543 Jul, Dysthymia F34.1 and Chronic back pain M54.9 [facility] [id number] [place] [address] 07752- 2043 Jun, [facility] [id number] [place] [address] 00374- 0015 Jun, [facility] [id number] [place] [address] 44447- 8884 May, [facility] [id number] [place] [address] 72722- 0565 May, [facility] [id number] [place] [address] 86599- 6268 13 May, 2015 [facility] [id number] [place] [address] 12008- 2206 07 May, 2015 Encounter for immunization Z23 [facility] [id number] [place] [address] 08768- 0062 15 Apr, 2015 [facility] [id number] [place] [address] 85101- 1223 10 Apr, 2015 [facility] [id number] [place] [address] 58607- 0505 Mar, [facility] [address] [facility] [id number] [place] [address]- 1469 Mar, Back pain 724.5 [facility] [address] [id number] [place] [address]- 6708 17 Mar, 2015 Cough 786.2 and Back pain 724.5 [facility] [id number] [place] [address], [place] [address]- 3257 Mar, [facility] [address] [id number] [place] [address]- 0283 Mar, [facility] [address] [id number] [place] [address], [place] [address]- 2625 December, [facility] [address] [id number] [place] [address]- 3534 December, [facility] [id number] [place] [address], [place] [address]- 9256 Nov, [facility] [address] [facility] [id number] [address]- 9206 Nov, [facility] [address], [place] [address]- 4078 Oct, [facility] [id number], [place] [address]- 0147 Oct, [facility] [address], [place] [address]- 6544 Sep, [facility] [address] [facility] [id number], [place] [address]- 0587 Sep, [facility] [place] [facility] [address] [facility] [id number] [place] [address]- 5694 Sep, [facility] [place] [facility] [address] [facility] [id number], [place] [address]- 1225 Sep, [facility] [place] [facility] [address], [place] [address]- 4204 Sep, [facility] [address] [id number] [place] [address]- 9284 Sep, [facility] [place] [facility] [address] [id number] [place] [address]- 7869 Sep, [facility] [place] [facility] [address] [id number] [place] [address]- 5472 Sep, [facility] [place] [facility] [address] [id number] [place] [address]- 0204 Aug, [facility] [place] [facility] [address] [id number] [place] [address]- 6567 Aug, [facility] [place] [facility] [address] [id number] [place] [address]- 7709 Aug, [facility] [address] [facility] [id number] [place] [address]- 9171 Aug, [facility] [place] [facility] [address] [id number] [place] [address]- 8501 Aug, [facility] [address] [facility] [id number] [place] [address]- 1153 Aug, [facility] [place] [facility] [address] [facility] [id number] [place] [address]- 7915 Aug, [facility] [place] [facility] [address] [id number] [place] [address]- 5100 Jul, [facility] [place] [facility] [address] [id number] [place] [address]- 4489 Jul, [facility] [place] [facility] [address] [id number] [place] [address]- 5235 Jul, [facility] [place] [facility] [address] [id number] [place] [address]- 9435 Jul, [facility] [place] [facility] [address] [facility] [id number] [place] [address]- 8949 15 Jul, 2014 [facility] [place] [facility] [address] [id number] [place] [address]- 5650 15 Jul, 2014 [facility] [place] [facility] [address] [id number] [place] [address]- 4386 05 Jul, 2014 [facility] [place] [facility] [address] [id number] [place] 5070 05 Jul, 2014 [facility] [place] [facility] [address] [id number] [place] [address]- 3546 Jun, [facility] [place] [facility] [address] [id number] [place] [address]- 1662 Jun, [facility] [place] [facility] [address] [id number] [place] [address]- 7044 Jun, [facility] [place] [facility] [address] [id number] [place] [address]- 0442 Jun, [facility] [place] [facility] [address] [id number] [place] [address]- 8927 Jun, [facility] [place] [facility] [address] [id number] [place] [address]- 2864 Jun, [facility] [place] [facility] [address] [id number] [place] [address]- 5762 Jun, [facility] [place] [facility] [address] [facility] [id number] [place] [address]- 3276 May, [facility] [place] [facility] [address] [id number] [place] [address]- 3912 May, [facility] [place] [facility] [address] [id number] [place] [address]- 2513 May, [facility] [place] [facility] [address] [id number] [place] [address]- 1769 May, [facility] [place] [facility] [address] [id number] [place] [address]- 1703 May, [facility] [place] [facility] [address] [id number] [place] [address]- 7503 2014 [facility] [place] [facility] [address] [id number] [place] [address]- 8257 2014 [facility] [place] [facility] [address] [id number] [place] [address]- 6637 2014 [facility] [place] [facility] [address] [id number] [place] [address]- 6894 13 May, 2014 [facility] [place] [facility] [address] [id number] [place] [address]- 5303 13 May, 2014 [facility] [place] [facility] [address] [id number] [place] [address]- 4784 10 May, 2014 [facility] [place] [facility] [address] [id number] [place] [address]- 6295 10 May, 2014 [facility] [place] [facility] [address] [id number] [place] [address]- 1359 08 May, 2014 [facility] [place] [facility] [address] [id number] [place] [address]- 8719 08 May, 2014 [facility] [place] [facility] [address] [id number] [place] [address]- 8290 26 Apr, 2014 [facility] [place] [facility] [address] [id number] [place] [address]- 4947 23 Apr, 2013 [facility] [place] [facility] [address] [id number], [place] [address]- 5152 23 Apr, 2013 [facility] [place] [facility] [address] [id number], [place] [address]- 9967 23 Apr, 2013 [facility] [place] [facility] [address] [id number] [place] [address]- 3428 23 Apr, 2013 [facility] [place] [facility] [address] [id number] [place] [address]- 4008 10 Apr, 2013 [facility] [place] [facility] [address] [id number] [place] [address]- 5993 10 Apr, 2013 [facility] [place] [facility] [address] [id number] [place] [address]- 7507 Mar, [facility] [place] [facility] [address] [id number] [place] [address]- 5469 Mar, [facility] [place] [facility] [address] [id number] [place] [address]- 1778 Mar, [facility] [place] [facility] [address] [id number] [place] [address]- 3809 Mar, [facility] [place] [facility] [address] [id number] [place] [address]- 7511 Mar, [facility] [place] [facility] [address] [id number] [place] [address]- 8782 Mar, [facility] [place] [facility] [address] [id number] [place] [address]- 9715 Feb, [facility] [place] [facility] [address] [id number] [place] [address]- 6067 Feb, [facility] [place] [facility] [address] [id number] [place] [address]- 8163 Feb, [facility] [place] [facility] [address] [id number] [place] [address]- 3395 Feb, [facility] [place] [facility] [address] [id number] [place] [address]- 0227 Feb, [facility] [place] [facility] [address] [id number] [place] [address]- 8330 Feb, [facility] [place] [facility] [address] [id number] [place] [address]- 4674 Feb, [facility] [place] [facility] [address] [id number] [place] [address]- 6468 Feb, [facility] [place] [facility] [address] [id number] [place] [address]- 2855 Jan, [facility] [place] [facility] [address] [id number] [place] [address]- 2916 Jan, [facility] [place] [facility] [address] [id number] [place] [address]- 3929 December, [facility] [place] [facility] [address] [id number] [place] [address] December, [facility] [place] [facility] [address] [id number] [place] [address] December, [facility] [place] [facility] [address] [id number] [place] [address] December, [facility] [place] [facility] [address] [id number] [place] [address] December, [facility] [place] [facility] [address] [id number] [place] [address] December, [facility] [place] [facility] [address] [id number] [place] [address] December, [facility] [place] [facility] [address] [id number] [place] [address] December, [facility] [place] [facility] [address] [id number] [place] [address] December, [facility] [place] [facility] [address] [id number] [place] [address] December, [facility] [place] [facility] [address] [id number] [place] [address] December, [facility] [place] [facility] [address] [id number] [place] [address] December, [facility] [place] [facility] [address] [id number] [place] [address] Nov, [facility] [place] [facility] [address] [id number] [place] [address] Nov, [facility] [place] [facility] [address] [id number] [place] [address] Nov, [facility] [place] [facility] [address] [id number] [place] [address] Nov, [facility] [place] [facility] [address] [id number] [place] [address] Nov, [facility] [place] [facility] [address] [id number] [place] [address] Nov, [facility] [place] [facility] [address] [facility] [id number] [place] [address] Nov, [facility] [place] [facility] [address] [id number] [place] [address] Nov, [facility] [place] [facility] [address] [id number] [place] [address] Nov, [facility] [place] [facility] [address] [id number] [place] [address] Nov, [facility] [place] [facility] [address] [id number] [place] [address] Nov, [facility] [place] [facility] [address] [id number] [place] [address] Nov, [facility] [place] [facility] [address] [id number] [place] [address] Nov, [facility] [place] [facility] [address] [id number] [place] [address] Oct, [facility] [place] [facility] [address] [id number] [place] [address] Oct, [facility] [place] [facility] [address] [id number] [place] [address] Sep, [facility] [place] [facility] [address] [id number] [place] [address] Sep, [facility] [place] [facility] [address] [id number] [place] [address] Sep, [facility] [place] [facility] [address] [id number] [place] [address]- [address] Sep, [facility] [place] [facility] [address] [id number] [place] [address] Sep, [facility] [place] [facility] [address] [id number] [place] [address] Sep, [facility] [place] [facility] [address] [id number] [place] [address] Sep, [facility] [place] [facility] [address] [id number] [place] [address] Sep, [facility] [place] [facility] [address] [id number] [place] [address] Sep, [facility] [place] [facility] [address] [id number] [place] [address] Sep, [facility] [place] [facility] [address] [facility] [id number] [place] [address] Sep, [facility] [place] [facility] [address] [id number] [place] [address] Sep, [facility] [place] [facility] [address] [id number] [place] [address] Aug, [facility] [place] [facility] [address] [facility] [id number] [place] [address] Aug, [facility] [place] [facility] [address] [facility] [id number] [place] [address] Aug, [facility] [place] [facility] [address] [id number], [place] [address] Aug, [facility] [place] [facility] [address] [id number] [place] [address] Aug, [facility] [place] [facility] [address] [id number] [place] [address] Aug, [facility] [place] [facility] [address] [facility] [id number], [place] [address] Aug, [facility] [place] [facility] [address] [id number], [place] [address] Aug, [facility] [place] [facility] [address] [id number] [place] [address] Aug, [facility] [place] [facility] [address] [id number] [place] [address] Aug, [facility] [place] [facility] [address] [address] [id number] [place] [address] Aug, [facility] [place] [facility] [address] [id number] [place] [address] 6[address] Aug, [facility] [place] [facility] [address] [id number] [place] [address] 9610 Aug, [facility] [place] [facility] [address] [id number] [place] [address] 6435 Aug, [facility] [place] [facility] [address] [id number] [place] [address] 2692 Aug, [facility] [place] [facility] [address] [id number] [place] [address] 8819 Aug, [facility] [place] [facility] [address] [id number] [place] [address] 0169 Aug, [facility] [place] [facility] [address] [id number] [place] [address] 5824 Aug, [facility] [place] [facility] [address] [id number] [place] [address] Aug, [facility] [place] [facility] [address] [id number] [place] [address] 45[address] Aug, [facility] [place] [facility] [address] [id number] [place] [address] 3871 Aug, [facility] [place] [facility] [address] [id number] [place] [address] 7647 Aug, [facility] [place] [facility] [address] [id number] [place] [address] 1566 Aug, [facility] [place] [facility] [address] [id number] [place] [address] 0608 Jul, [facility] [address] [id number] [place] [address] Jul, [facility] [place] [facility] [address] [id number] [place] [address]- 3295 Jul, [facility] [place] [facility] [address] [id number] [place] [address]- 7179 Jul, [facility] [place] [facility] [address] [id number] [place] [address]- 0500 Jul, [facility] [place] [facility] [address] [id number] [place] [address] Jul, [facility] [place] [facility] [address] [id number] [place] [address] 8315 Jun, [facility] [place] [facility] [address] [id number] [place] [address]- 0[address] Jun, [facility] [place] [facility] [address] [id number] [place] [address]- 8917 Jun, [facility] [place] [facility] [address] [id number] [place] [address] 8458 Jun, [facility] [place] [facility] [address] [facility] [id number] [place] [address] 9956 Jun, [facility] [place] [facility] [address] [id number] [place] [address]- 1594 Jun, [facility] [place] [facility] [address] [id number] [place] [address]- 9023 Jun, [facility] [place] [facility] [address] [id number] [place] [address] Jun, [facility] [place] [facility] [address] [id number] [place] [address]- 0946 Jun, [facility] [place] [facility] [address] [id number] [place] [address]- 5348 Jun, [facility] [place] [facility] [address] [id number] [place] [address]- 8216 May, 2012 [facility] [place] [facility] [address] [id number] [place] [address]- 4222 May, 2012 [facility] [place] [facility] [address] [id number] [place] [address]- 6334 May, [facility] [place] [facility] [address] [id number], [place] [address] 5416 May, 2012 [facility] [place] [facility] [address] [id number] [place] [address]- 2822 May, [facility] [place] [facility] [address] [id number], [place] [address] 3[address] May, [facility] [place] [facility] [address] [id number] [place] [address]- 8104 May, [facility] [place] [facility] [address] [id number], [place] [address] 8207 May, [facility] [place] [facility] [address] [id number], [place] [address]- 7968 May, [facility] [place] [facility] [address] [id number], [place] [address]- 2954 May, [facility] [place] [facility] [address] [id number], [place] [address]- 8273 17 May, 2012 [facility] [place] [facility] [address] [id number], [place] [address]- 5145 16 May, 2012 [facility] [place] [facility] [address] [id number], [place] [address]- 1104 16 May, 2013 [facility] [place] [facility] [address] [id number], [place] [address]- 1321 16 May, 2012 [facility] [place] [facility] [address] [id number], [place] [address]- 7393 16 May, 2013 [facility] [place] [facility] [address] [id number] [place] [address]- 8964 Apr, [facility] [address] [id number] [place] [address] 8210 Apr, [facility] [place] [facility] [address] [id number] [place] [address]- 4516 Apr, [facility] [place] [facility] [address] [id number] [place] [address] 1842 Mar, [facility] [place] [facility] [address] [id number] [place] [address]- 0980 Mar, [facility] [place] [facility] [address] [id number] [place] [address]- 0525 Mar, [facility] [place] [facility] [address] [id number] [place] [address]- 9056 Mar, [facility] [address] [id number] [place] [address]- 4765 Mar, [facility] [place] [facility] [address] [id number] [place] [address]- 0696 Mar, [facility] [place] [facility] [address] [id number] [place] [address]- 5372 Feb, [facility] [place] [facility] [address] [id number] [place] [address]- 5755 Feb, [facility] [place] [facility] [address] [id number] [place] [address]- 0076 Feb, [facility] [place] [facility] [address] [id number] [place] [address]- 8308 Feb, [facility] [place] [facility] [address] [id number] [place] [address]- 3297 Feb, [facility] [place] [facility] [address] [id number] [place] [address]- 6429 Feb, [facility] [place] [facility] [address] [id number] [place] [address]- 8425 Feb, [facility] [place] [facility] [address] [id number] [place] [address]- 1491 Feb, [facility] [place] [facility] [address] [id number] [place] [address]- 6372 Feb, [facility] [place] [facility] [address] [id number] [place] [address]- 7052 Feb, [facility] [place] [facility] [address] [id number] [place] [address]- 4061 Jan, [facility] [place] [facility] [address] [id number] [place] [address]- 1110 Jan, [facility] [place] [facility] [address] [id number] [place] [address]- 5484 Jan, [facility] [place] [facility] [address] [id number] [place] [address]- 2908 Jan, [facility] [place] [facility] [address] [id number] [place] [address]- 8436 December, [facility] [place] [facility] [address] [id number] [place] [address]- 1562 December, [facility] [place] [facility] [address] [id number] [place] [address]- 3590 December, [facility] [place] [facility] [address] [id number] [place] [address]- 7955 Nov, [facility] [place] [facility] [address] [id number] [place] [address]- 0531 Nov, [facility] [place] [facility] [address] [id number] [place] [address]- 0353 Nov, [facility] [place] [facility] [address] [id number] [place] [address]- 9612 Nov, [facility] [place] [facility] [address] [id number] [place] [address]- 2809 Nov, [facility] [place] [facility] [address] [id number] [place] [address]- 4926 Nov, [facility] [address] [id number] [place] [address]- 7131 Oct, [facility] [address] [id number] [place] [address]- 3806 Oct, [facility] [address] [id number] [place] [address]- 9559 Oct, [facility] [address] [id number] [place] [address]- 4264 Sep, [facility] [address] [id number] [place] [address]- 2648 Sep, [facility] [address] [id number] [place] [address]- 1916 Sep, [facility] [address] [id number] [place] [address]- 2862 Aug, [facility] [address] [id number] [place] [address]- 2268 Aug, [facility] [address] [id number] [place] [address]- 6844 Aug, [facility] [address] [id number] [place] [address]- 2978 Aug, [facility] [address] [id number] [place] [address]- 1213 Jul, [facility] [place] [facility] [address] [id number] [place] [address]- 3482 Jul, [facility] [place] [facility] [address] [id number] [place] [address]- 1242 Jul, [facility] [place] [facility] [address] [id number] [place] [address]- 0796 Jul, [facility] [place] [facility] [address] [id number] [place] [address]- 3516 Jun, [facility] [place] [facility] [address] [id number] [place] [address]- 8380 Jun, [facility] [place] [facility] [address] [id number] [place] [address]- 5278 Jun, [facility] [place] [facility] [address] [id number] [place] [address]- 3016 Jun, [facility] [place] [facility] [address] [id number] [place] [address]- 3697 Jun, [facility] [place] [facility] [address] [id number] [place] [address]- 0925 Jun, [facility] [place] [facility] [address] [id number] [place] [address]- 6731 Jun, [facility] [place] [facility] [address] [id number] [place] [address]- 4097 Jun, [facility] [place] [facility] [address] [id number] [place] [address]- 7209 May, [facility] [place] [facility] [address] [id number] [place] [address]- 7977 30 May, 2012 [facility] [place] [facility] [address] [id number] [place] [address]- 9085 18 May, 2012 [facility] [place] [facility] [address] [facility] [id number] [place] [address]- 3992 18 May, 2012 [facility] [place] [facility] [address] [id number] [place] [address]- 5332 2012 [facility] [place] [facility] [address] [id number] [place] [address]- 4252 13 May, 2012 [facility] [place] [facility] [address] [id number] [place] [address] 11 May, 2012 [facility] [place] [facility] [address] [facility] [id number] [place] [address]185 11 May, 2012 [facility] [place] [facility] [address] [id number] [place] [address]- 6844 10 May, 2012 [facility] [place] [facility] [address] [id number] [place] [address]- 4869 08 May, 2012 [facility] [place] [facility] [address] [id number] [place] [address]- 6026 24 Apr, 2012 [facility] [place] [facility] [address] [id number] [place] [address]- 6630 19 Apr, 2012 [facility] [place] [facility] [address] [id number] [place] [address]- 6708 18 Apr, 2012 [facility] [place] [facility] [address] [id number] [place] [address]- 8396 17 Apr, 2012 [facility] [place] [facility] [address] [id number] [place] [address]- 9017 16 Apr, 2012 [facility] [place] [facility] [address] [id number] [place] [address]- 3572 10 Apr, 2012 [facility] [place] [facility] [address] [id number] [place] [address]- 9114 29 Mar, 2012 [facility] [place] [facility] [address] [id number] [place] [address]- 3700 Mar, [facility] [place] [facility] [address] [id number] [place] [address]- 7090 Mar, [facility] [place] [facility] [address] [id number] [place] [address]- 5702 Mar, [facility] [place] [facility] [address] [id number], [place] [address]- 8963 Mar, [facility] [place] [facility] [address] [id number] [place] [address]- 0313 Mar, [facility] [place] [facility] [address] [id number] [place] [address]- 9450 Feb, [facility] [place] [facility] [address] [id number] [place] [address]- 1288 Feb, [facility] [place] [facility] [address] [id number] [place] [address]- 7011 18 Feb, 2012 [facility] [place] [facility] [address] [id number] [place] [address]- 6686 17 Feb, 2011 [facility] [place] [facility] [address] [id number] [place] [address]- 6896 13 Feb, 2012 [facility] [place] [facility] [address] [id number] [place] [address]- 8576 Feb, 2011 [facility] [place] [facility] [address] [id number] [place] [address]- 8233 Feb, [facility] [place] [facility] [address] [id number] [place] [address]- 6486 Feb, [facility] [place] [facility] [address] [id number] [place] [address]- 0915 Feb, [facility] [place] [facility] [address] [id number] [place] [address]- 5797 29 Jan, 2012 [facility] [place] [facility] [address] [id number] [place] [address]- 5677 Jan, [facility] [place] [facility] [address] [id number] [place] [address]- 6224 Jan, [facility] [place] [facility] [address] [id number] [place] [address]- 4857 Jan, [facility] [place] [facility] [address] [id number] [place] [address]- 9424 15 Jan, 2012 [facility] [place] [facility] [address] [id number] [place] [address]- 9132 Jan, [facility] [place] [facility] [address] [id number] [place] [address]- 1713 08 Jan, 2012 [facility] [place] [facility] [address] [id number] [place] [address]- 6695 04 Jan, 2012 [facility] [place] [facility] [address] [id number] [place] [address]- 0003 Jan, [facility] [place] [facility] [address] [id number] [place] [address]- 6911 December, [facility] [address] [id number] [place] [address]- 2933 December, [facility] [address] [id number] [place] [address]- 9417 December, [facility] [address] [id number] [place] [address]- 2701 December, [facility] [address] [id number] [place] [address]- 6914 December, [facility] [address] [id number] [place] [address]- 6544 December, [facility] [address] [id number] [place] [address]- 3818 December, [facility] [address] [id number] [place] [address]- 3809 December, [facility] [address] [id number] [place] [address]- 3177 December, [facility] [address] [id number] [place] [address]- 4351 December, [facility] [address] [id number] [place] [address]- 2002 30 Nov, 2011 [facility] [place] [facility] [address] [id number] [place] [address]- 3422 Nov, [facility] [place] [facility] [address] [id number] [place] [address]- 8687 Nov, [facility] [place] [facility] [address] [id number] [place] [address]- 1062 Nov, [facility] [place] [facility] [address] [id number] [place] [address]- 1133 16 Nov, 2011 [facility] [place] [facility] [address] [id number] [place] [address]- 1240 13 Nov, 2011 [facility] [place] [facility] [address] [id number] [place] [address]- 3575 09 Nov, 2011 [facility] [place] [facility] [address] [id number] [place] [address]- 7316 06 Nov, 2011 [facility] [place] [facility] [address] [id number] [place] [address]- 7286 05 Nov, 2011 [facility] [place] [facility] [address] [id number] [place] [address]- 5964 03 Nov, 2011 [facility] [place] [facility] [address] [id number] [place] [address]- 7970 30 Oct, 2011 [facility] [place] [facility] [address] [id number] [place] [address]- 7346 29 Oct, 2011 [facility] [place] [facility] [address] [id number] [place] [address]- 7477 23 Oct, 2011 [facility] [place] [facility] [address] [id number] [place] [address]- 9749 23 Oct, 2011 [facility] [place] [facility] [address] [id number] [place] [address]- 3058 21 Oct, 2011 [facility] [place] [facility] [address] [id number] [place] [address]- 8694 20 Oct, 2011 [facility] [place] [facility] [address] [id number] [place] [address]- 7193 19 Oct, 2011 [facility] [place] [facility] [address] [id number] [place] [address]- 4909 19 Oct, 2011 [facility] [place] [facility] [address] [id number] [place] [address]- 6888 16 Oct, 2011 [facility] [place] [facility] [address] [id number] [place] [address]- 0029 14 Oct, 2011 [facility] [place] [facility] [address] [id number] [place] [address]- 7714 14 Oct, 2011 [facility] [place] [facility] [address] [id number] [place] [address]- 0659 09 Oct, 2011 [facility] [place] [facility] [address] [id number] [place] [address]- 7516 08 Oct, 2011 [facility] [place] [facility] [address] [id number] [place] [address]- 2186 06 Oct, 2011 [facility] [place] [facility] [address] [id number] [place] [address]- 7105 Oct, [facility] [place] [facility] [address] [id number] [place] [address]- 6623 28 Sep, 2011 [facility] [place] [facility] [address] [id number] [place] [address]- 0122 24 Sep, 2011 [facility] [place] [facility] [address] [facility] [id number] [place] [address]- 0852 20 Sep, 2011 [facility] [place] [facility] [address] [facility] [id number] [place] [address]- 5456 17 Sep, 2011 [facility] [place] [facility] [address] [id number] [place] [address]- 7736 16 Sep, 2011 [facility] [place] [facility] [address] [facility] [id number] [place] [address]- 9235 14 Sep, 2011 [facility] [place] [facility] [address] [facility] [id number] [place] [address]- 4293 13 Sep, 2011 [facility] [place] [facility] [address] [facility] [id number] [place] [address]- 0810 10 Sep, 2011 [facility] [place] [facility] [address] [id number] [place] [address]- 0742 06 Sep, 2011 [facility] [place] [facility] [address] [id number] [place] [address]- 0313 03 Sep, 2011 [facility] [place] [facility] [address] [facility] [id number] [place] [address]- 6011 01 Sep, 2011 [facility] [place] [facility] [address] [facility] [id number] [place] [address]- 3799 Aug, [facility] [address] [id number] [place] [address]- 2181 Aug, [facility] [place] [facility] [address] [id number] [place] [address]- 3434 Aug, [facility] [address] [id number] [place] [address]- 7519 Aug, [facility] [place] [facility] [address] [id number] [place] [address]- 1026 Aug, [facility] [address] [id number] [place] [address]- 7682 Aug, [facility] [place] [facility] [address] [id number] [place] [address]- 4355 Aug, [facility] [address] [id number] [place] [address]- 8194 Aug, [facility] [place] [facility] [address] [id number] [place] [address]- 1568 16 Aug, 2011 [facility] [address] [id number] [place] [address] Aug, [facility] [place] [facility] [address] [id number] [place] [address] Aug, [facility] [address] [id number] [place] [address] Aug, [facility] [place] [facility] [address] [id number] [place] [address] Aug, [facility] [place] [facility] [address] [id number] [place] [address] Aug, [facility] [place] [facility] [address] [id number] [place] [address] Aug, [facility] [place] [facility] [address] [id number] [place] [address] Aug, [facility] [place] [facility] [address] [facility] [id number], [place] [address] Aug, [facility] [address] [facility] [id number], [place] [address] Jul, [facility] [address] [facility] [id number] [address] Jul, [facility] [address] [facility] [id number] [address] Jul, [facility] [address] [facility] [id number], [place] [address] Jul, [facility] [address] [facility] [id number] [place] [address] Jul, [facility] [address] [facility] [id number], [place] [address] Jul, [facility] [id number] [place] [address] Jul, [facility] [address] [facility] [id number], [place] [address] Jul, [facility] [id number] [address] Jul, [facility] [address] [id number] [address] Jul, [facility] [id number], [place] [address] Jul, [facility] [address] [facility] [id number], [place] [address] Jun, [facility] [id number], [place] [address] Jun, [facility] [id number], [place] [address] Jun, IMMUNIZATIONS No Known Immunizations SOCIAL HISTORY Never Assessed REASON FOR VISIT Controlled Med Refill PRN PLAN OF CARE VITAL SIGNS MEDICATIONS Medication Instructions Dosage Frequency Start Date End Date Duration Status Aldactone 50 MG Orally Once a day 1 tablet 24h 90 days Active Folic Acid 1 MG Orally Once a day 1 tablet 24h 90 days Active Ativan 0.5 MG Orally Once [...]
--- OUTSIDE RECORDS SUMMARY | 2018-08-05 03:25 | XMS REPORT ---
Author Author HEATHER FINE [facility] eClinicalWorks Address Unknown Phone Unavailable Care Team Providers Care Wash Test Checker Name Role Phone HEATHER FINE CP Unavailable Allergies No Known Allergies Problems Problem Type Condition Code Onset Dates Condition Status Problem Chronic back pain M54.9 Active Problem Asthma, unspecified, unspecified status 493.90 Active Problem Dysthymia F34.1 Active Problem Lumbago 724.2 Active Problem Esophageal varices without mention of bleeding 456.1 Active Problem Unspecified thrombocytopenia 287.5 Active Problem Anxiety state, unspecified 300.00 Active Medications Medication Code System Code Instructions Start Date End Date Status Dosage Oxycodone HCl [facility] [address]-85 5 MG Orally Once a day at hs Mar 29, [address] [facility] [address]-67 500 MG Orally Twice a day Sep 02, 2015 Sep 09, 2015 1 tablet Results No Known Results Summary Purpose eClinicalWorks Submission
--- OUTSIDE RECORDS SUMMARY | 2018-08-05 03:25 | XMS REPORT ---
Author Author HEATHER FINE [facility] eClinicalWorks Address Unknown Phone Unavailable Care Team Providers Care Rubbish Collection Supervisor Name Role Phone HEATHER FINE CP Unavailable Allergies, Adverse Reactions, Alerts Substance Reaction Event Type Sulfamethoxazole hives Drug Allergy Problems Problem Type Condition Code Onset Dates Condition Status Assessment Dysuria R30.0 Active Assessment Chronic back pain M54.9 Active [...] Status Dosage Oxycodone HCl [facility] [address]-43 5 MG Orally Once a day at hs Mar 29, 2015 1 tablet Nadolol [facility] 30285776424 40 MG TAKE ONE-HALF TABLET BY MOUTH DAILY Aldactone [facility] 59772705794 50 MG Once a day 1 Tablet by Oral route Folic Acid [facility] [address]-42 1 MG Once a day October 25, 2015 TAKE ONE TABLET BY MOUTH ONCE DAILY Aciphex [facility] 39244516276 20 MG TAKE ONE TABLET BY MOUTH TWICE DAILY FOR 7 DAYS AFTER DISCHARGE THEN DECREASE TO ONE TABLET DAILY THEREAFTER Procedures Procedure Coding System Code Date URINE CULTURE/COLONY COUNT CPT-4 19180 Aug 30, 2015 Office Visit, Est Pt., Level 3 CPT-4 75159 Aug 30, 2015 URINALYSIS, AUTO, W/O SCOPE CPT-4 34937 Aug 30, 2015 Vital Signs Date/Time: Aug 30, 2015 Temperature 98.0 F Weight 104 lbs Height 61 in BMI 19.65 Index Blood Pressure Diastolic 78 mmHg Blood Pressure Systolic 110 mmHg Cardiac Monitoring Heart Rate 70 bpm Results Name Result Date Reference Range Unit Abnormality Flag UA LONG DIP (IN HOUSE) ----TRINI 3+ 20150830 ----NIT Neg 20150830 ----SG 1.015 20150830 ----KET Neg [id number] ----HUSEYIN Neg 20150830 ----GLU Neg 20150830 ----Odor odor 20150830 ----pH 7.0 20150830 ----BLO Neg [id number] ----URO 0.2 20150830 ----Protein Neg [id number] ----Lot # [id number] ----Exp date [id number] ----Clarity clear 20150830 ----Color yellow 20150830 CULTURE, URINE ----Urine Culture, Routine Final report [id number] Summary Purpose eClinicalWorks Submission
--- OUTSIDE RECORDS SUMMARY | 2018-08-05 03:25 | XMS REPORT ---
Author Author HEATHER FINE [facility] eClinicalWorks Address Unknown Phone Unavailable Care Team Providers Care Semi Conductor Assembler Name Role Phone HEATHER FINE CP Unavailable [...] Date End Date Status Dosage Oxycodone HCl [facility] [address]-33 5 MG Orally Once a day Mar 29, 2015 1 tablet at bedtime Results No Known Results Summary Purpose eClinicalWorks Submission
[2018-08-05 03:26] LABS: INR 1.2 (0.8-1.4); PROTHROMBIN TIME PATIENT 15.6 SEC (12.2-14.7)
--- OUTSIDE RECORDS SUMMARY | 2018-08-05 03:26 | XMS REPORT ---
Author Author HEATHER FINE [facility] Address [address] [place] [address] Care Team Providers Care Rn Trauma Name Role Phone HEATHER FINE Unavailable PROBLEMS Type Condition ICD9-CM Code TDF48-KG Code Onset Dates Condition Status SNOMED Code Problem Asthma J45.909 Active 601951541 Problem History of hepatitis C Z86.19 Active 62445683406816 Problem Secondary esophageal varices with bleeding I85.11 Active 41328142 Problem Anxiety F41.9 Active 06463636 Problem Dysthymia F34.1 Active 09908894 Problem Chronic back pain M54.9 Active 073317848 Problem Splenomegaly R16.1 Active 33797438 Problem 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 Active 550369312 Problem Thrombocytosis D47.3 Active 4945081 Problem Lymphocytosis D72.820 Active 98675408 ALLERGIES Unknown Allergies SOCIAL HISTORY No smoking Hx information available PLAN OF CARE VITAL SIGNS MEDICATIONS Medication Instructions Dosage Frequency Start Date End Date Duration Status Aciphex 20 mg Orally Once a day 1 tablet 24h Active RESULTS No Results PROCEDURES No Known procedures IMMUNIZATIONS No Known Immunizations
--- OUTSIDE RECORDS SUMMARY | 2018-08-05 03:26 | XMS REPORT ---
Author Author HEATHER FINE [facility] Address [address] [place] [address] Care Team Providers Care Map And Chart Mounter Name Role Phone HEATHER FINE Unavailable PROBLEMS Type Condition ICD9-CM Code GND70-VM Code Onset Dates Condition Status SNOMED Code Problem Asthma J45.909 Active 174263571 Problem History of hepatitis C Z86.19 Active 26368886993184 Problem Secondary esophageal varices with bleeding I85.11 Active 51098266 Assessment Anxiety F41.9 Jul, Active 37401872 Problem Anxiety F41.9 Active 67820978 Problem Dysthymia F34.1 Active 35106480 Problem Chronic back pain M54.9 Active 568352376 Problem Splenomegaly R16.1 Active 42090494 Problem 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 Active 161009706 Problem Thrombocytosis D47.3 Active 3838675 Problem Lymphocytosis D72.820 Active 60742117 ALLERGIES Unknown Allergies SOCIAL HISTORY No smoking Hx information available PLAN OF CARE VITAL SIGNS MEDICATIONS Unknown Medications RESULTS No Results PROCEDURES Procedure Date Ordered Related Diagnosis Body Site URINALYSIS, AUTO, W/O SCOPE Jul 17, 2016 IMMUNIZATIONS No Known Immunizations
--- OUTSIDE RECORDS SUMMARY | 2018-08-05 03:26 | XMS REPORT ---
Author Author HEATHER FINE [facility] eClinicalWorks Address Unknown Phone Unavailable Care Team Providers Care Stallion Manager Name Role Phone HEATHER FINE CP Unavailable Allergies No Known Allergies Problems Problem Type Condition ICD-9 Code Onset Dates Condition Status Problem Unspecified thrombocytopenia 287.5 Active Problem Anxiety state, unspecified 300.00 Active Problem Asthma, unspecified, unspecified status 493.90 Active Problem Lumbago 724.2 Active Problem Esophageal varices without mention of bleeding 456.1 Active Medications No Known Medications Results No Known Results Summary Purpose eClinicalWorks Submission
--- OUTSIDE RECORDS SUMMARY | 2018-08-05 03:26 | XMS REPORT ---
Author Author HEATHER FINE Organization [facility] Address [address] [place] [address] Care Team Providers Care Product Picker Name Role Phone HEATHER FINE Unavailable PROBLEMS Type Condition ICD9-CM Code DBW22-WG Code Onset Dates Condition Status SNOMED Code Problem Unspecified cirrhosis of liver K74.60 Active 749776531 Problem Lymphocytosis D72.820 Active 27491699 Problem Secondary esophageal varices with bleeding I85.11 Active 92641498 Problem Anxiety F41.9 Active 03680150 Problem Asthma J45.909 Active 502363191 Problem Chronic back pain M54.9 Active 144467570 Problem Dysthymia F34.1 Active 51057301 Problem Thrombocytosis D47.3 Active 6714229 Problem Splenomegaly R16.1 Active 90262243 Problem 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 Active 719585140 Problem History of hepatitis C Z86.19 Active [id number] ALLERGIES No Information ENCOUNTERS Encounter Location Date Diagnosis [place] [id number] [place] [address] 26859- 6809 Feb, [place] [id number] [place] [address] 94373- 7004 Feb, Anxiety F41.9 [facility] [id number] [place] [address] 59818- 9682 Jan, [place] [id number] [place] [address] 43974- 1422 Jan, Chronic back pain M54.9 and Anxiety F41.9 [place] [id number] [place] [address] 51145- 5520 December, Chronic back pain M54.9 and Anxiety F41.9 [place] [address] [place] [id number] [place] [address] 95056- 2347 Nov, Chronic back pain M54.9 and Anxiety F41.9 [facility] [address] 73733- 6424 Oct, Chronic back pain M54.9 and Anxiety F41.9 [facility] [address] [place] [id number] [place] [address] 90217- 0037 Oct, [facility] [address] 66029- 9595 Sep, Chronic back pain M54.9 ; Anxiety F41.9 ; Pain of left leg M79.605 and Pain in right leg M79.604 [facility] [address] [place] [id number] [place] [address] 17453- 1089 Sep, Anxiety F41.9 and Chronic back pain M54.9 [place] [address] 09800- 4384 Sep, [facility] [address] [place] [id number] [place] [address] 88552- 3615 Aug, Anxiety F41.9 [facility] [address] [place] [id number] [place] [address] 62287- 0960 Jul, Anxiety F41.9 [facility] [address] [place] [id number] [place] [address] 80820- 4621 Jul, [facility] [address] 79457- 9297 Jul, Viral syndrome B34.9 ; Chronic back pain M54.9 and Dysuria R30.0 [facility] [address] 78170- 6713 Jun, [facility] [address] [place] [id number] [place] [address] 29789- 0118 Jun, Anxiety F41.9 [facility] [address] 89800 -5017 Jun, Dysuria R30.0 and Acute cystitis without hematuria N30.00 [facility] [address] [place] [id number] [place] [address] 84895- 9730 Jun, [facility] [address] [place] [id number] [place] [address] 00020- 9601 May, Anxiety F41.9 [facility] [address] [place] [id number] [place] [address] 93482- 2951 May, Anxiety F41.9 [facility] [address] [place] [id number] [place] [address] 69475- 5225 Apr, [facility] [address] [place] [id number] [place] [address] 20768- 7079 Apr, Chronic back pain M54.9 and Anxiety F41.9 [facility] [address] [place] [id number] [place] [address] 77303- 1622 Mar, [facility] [address] [place] [id number] [place] [address] 91255- 0272 Mar, [facility] [address] [place] [id number] [place] [address] 48000- 4778 Mar, Well woman exam Z01.419 ; Cervical cancer screening Z12.4 ; Breast cancer screening Z12.31 and Colon cancer screening Z12.11 [facility] [address] [place] [address] 20615- 1245 Mar, Chronic back pain M54.9 and Anxiety F41.9 [facility] [address] [place] [id number] [place] [address] 61378- 2258 Mar, [facility] [address] [place] [id number] [place] [address] 84346- 3175 Feb, Chronic back pain M54.9 and Anxiety F41.9 [facility] [id number] [place] [address] 74572- 9445 Feb, [facility] [address] [place] [id number] [address]- 3418 Feb, [facility] [address] [place] [address] 52324- 3195 Jan, Chronic back pain M54.9 and Anxiety F41.9 [facility] [address] [place] [address] 28871- 8419 Jan, [facility] [address] [place] [id number] [place] [address] 49850- 5859 Jan, [facility] [address] [place] [address] 74839- 4816 December, Chronic back pain M54.9 and Anxiety F41.9 [facility] [address] [place] [id number] [place] [address] 39904- 2396 Nov, Chronic back pain M54.9 and Anxiety F41.9 [facility] [address] [place] [id number] [place] [address] 92362- 6863 Oct, Chronic back pain M54.9 and Anxiety F41.9 [facility] [address] [place] [id number] [place] [address] 19362- 3643 Oct, Chronic back pain M54.9 [facility] [address] [place] [id number] [place] [address] 02653- 7851 Sep, Anxiety F41.9 and Chronic back pain M54.9 [facility] [address] [place] [address] 05062- 4861 Aug, Anxiety F41.9 and Chronic back pain M54.9 [facility] [address] [place] [address] 83051- 8472 Aug, [facility] [address] [place] [address] 98087- 5101 Jul, Chronic back pain M54.9 and Anxiety F41.9 [facility] [address] [place] [address] 49867- 9621 Jul, Anxiety F41.9 and Chronic back pain M54.9 [facility] [place] [address] [facility] [id number] [place] [id number] Jul, [facility] [address] [facility] [id number] [place] [address] 53257- 4681 Jul, Anxiety F41.9 [facility] [address] [facility] [id number] [place] [address] 68101- 5986 Jul, Anxiety F41.9 and Dysuria R30.0 [facility] [address] [facility] [id number] [place] [address] 28442- 6455 Jul, Chronic back pain M54.9 and Anxiety F41.9 [facility] [address] [place] [id number] [place] [address] 13608- 3391 Jun, Chronic back pain M54.9 [facility] [address] [place] [address] 85724- 1851 Jun, Chronic back pain M54.9 [facility] [address] [facility] [id number] [place] [address] 04084- 2985 May, Anxiety F41.9 [facility] [address] [place] [id number] [place] [address] 81878- 8314 May, Chronic back pain M54.9 [facility] [address] [place] [id number] [place] [address] 67949- 1625 Apr, [facility] [address] [facility] [id number] [place] [address] 81943 2546 Apr, [facility] [address] [facility] [id number] [address]- 2216 Apr, [facility] [address] [facility] [id number] [place] [address] 67790 2546 Apr, Chronic back pain M54.9 [facility] [address] [place] [id number] [place] [address] 16806- 7507 Mar, Chronic back pain M54.9 [facility] [address] [address]- 0490 Feb, Grief F43.20 [facility] [address] [place] [id number] [place] [address] 40455 2546 Feb, Chronic back pain M54.9 and Anxiety F41.9 [facility] [address] [place] [id number] [place] [address] 29643- 8176 Feb, Chronic back pain M54.9 [facility] [address] [place] [id number] [place] [address] 55080 2546 Jan, Chronic back pain M54.9 [facility] [address] [place] [id number] [place] [address] 26184- 8336 December, [facility] [address] [place] [id number] [place] [address] 81567- 2661 December, Grief F43.20 [facility] [address] [place] [id number] [place] [address] 87245- 1679 Nov, [facility] [address] [place] [id number] [place] [address] 65609- 5318 Oct, Cervicalgia M54.2 ; Secondary esophageal varices with bleeding I85.11 and Mouth pain K13.79 [facility] [address] [place] [id number] [place] [address] 11670- 4116 Oct, [facility] [address] [place] [id number] [place] [address] 34599 2546 Oct, [facility] [address] [place] [address] 98575- 9994 Sep, [facility] [address] [place] [id number] [place] [address] 24962- 8086 Sep, Acute maxillary sinusitis, recurrence not specified J01.00 [facility] [address] [place] [id number] [place] [address] 13227- 7426 Aug, [facility] [address] [place] [id number] [place] [address] 29357- 8017 Aug, [facility] [address] [place] [id number] [place] [address] 05670- 1019 Aug, Dysuria R30.0 and Chronic back pain M54.9 [facility] [address] [place] [id number] [place] [address] 80010- 8825 Jul, [facility] [address] 80336- 7165 Jul, [facility] [address] [place] [id number] [place] [address] 16801- 9789 Jul, [facility] [address] 61888- 2033 Jul, Chronic back pain M54.9 [facility] [address] [place] [id number] [place] [address] 17578- 1484 Jul, Dysthymia F34.1 and Chronic back pain M54.9 [facility] [address] [place] [id number] [place] [address] 30861- 9424 Jun, [facility] [address] [place] [id number] [place] [address] 37887- 3824 Jun, [facility] [address] [place] [id number] [place] [address] 29546- 4232 May, [facility] [address] [place] [id number] [place] [address] 17061- 3686 May, [facility] [address] [place] [id number] [place] [address] 35575- 9353 May, [facility] [address] [place] [id number] [place] [address] 02900- 5589 May, Encounter for immunization Z23 [facility] [address] [place] [id number] [place] [address] 82278- 7328 15 Apr, 2015 [facility] [address] [place] [id number] [place] [address] 04296- 4781 Apr, [facility] [address] [facility] [id number] [place] [address]- 8571 Mar, [facility] [address] [place] [id number] [address]- 6959 Mar, Back pain 724.5 [facility] [id number] [place] [address] 20765- 1224 Mar, Cough 786.2 and Back pain 724.5 [facility] [address] [id number] [address]- 7022 Mar, [facility] [address] [place] [id number] [place] [address] 75277- 0755 Mar, [facility] [address] [address]- 3082 December, [facility] [address] [address]- 1910 December, [facility] [address] [place] [id number] [address]- 4778 Nov, [facility] [address] [address]- 9921 Nov, [facility] [address] [address]- 6440 Oct, [facility] [place] [facility] [address] [place] [address] [id number] [address]- 3122 Oct, [facility] [place] [facility] [address] [place] [address] [id number] [address]- 0897 Sep, [facility] [place] [facility] [address] [address] [id number] [address]- 5712 Sep, [facility] [place] [facility] [address] [place] [address] [id number] [address]- 1855 Sep, [facility] [place] [facility] [address] [address]- 1018 10 Sep, 2014 [facility] [place] [facility] [address] [id number] [place] [address]- 5291 Sep, 2014 [facility] [place] [facility] [address] [id number] [place] 3671 Sep, 2014 [facility] [place] [facility] [address] [id number] [place] [address]- 3766 Sep, [facility] [place] [facility] [address] [id number] [place] [address]- 2841 Sep, [facility] [place] [facility] [address] [id number] [place] [address]- 4973 Aug, [facility] [place] [facility] [address] [id number] [place] [address]- 4160 Aug, [facility] [place] [facility] [address] [id number] [place] [address]- 0394 Aug, [facility] [place] [facility] [address] [id number] [place] [address]- 5589 Aug, [facility] [place] [facility] [address] [id number] [place] [address]- 6131 Aug, [facility] [place] [facility] [address] [facility] [id number] [place] [address]- 5272 Aug, [facility] [place] [facility] [address] [id number] [place] [address]- 5314 Aug, [facility] [place] [facility] [address] [id number] [place] [address]- 7139 Jul, [facility] [place] [facility] [address] [id number] [place] [address]- 8259 Jul, [facility] [place] [facility] [address] [id number] [place] [address]- 5297 Jul, [facility] [place] [facility] [address] [id number] [place]- 9734 Jul, [facility] [place] [facility] [address] [id number] [place] [address]- 9815 Jul, [facility] [place] [facility] [address] [id number] [place] [address]- 0772 Jul, [facility] [place] [facility] [address] [id number] [place]- 0249 Jul, [facility] [place] [facility] [address] [id number] [place] [address]- 1490 Jul, [facility] [place] [facility] [address] [id number] [place] [address]- 1448 Jun, [facility] [place] [facility] [address] [id number] [place] [address]- 5271 Jun, [facility] [place] [facility] [address] [id number] [place] [address]- 8025 Jun, [facility] [place] [facility] [address] [id number] [place] [address]- 2855 Jun, [facility] [place] [facility] [address] [id number] [place] [address]- 8604 Jun, [facility] [place] [facility] [address] [id number] [place] [address]- 6602 Jun, [facility] [place] [facility] [address] [id number] [place] [address]- 8845 Jun, [facility] [place] [facility] [address] [id number] [place] [address]- 6159 May, [facility] [place] [facility] [address] [id number] [place] [address]- 3222 May, [facility] [place] [facility] [address] [id number] [place] [address]- 8311 May, [facility] [place] [facility] [address] [id number] [place] [address]- 2597 May, [facility] [place] [facility] [address] [id number] [place] [address]- 0630 2014 [facility] [place] [facility] [address] [id number] [place] [address]- 1011 2014 [facility] [place] [facility] [address] [id number] [place] [address]- 3847 2014 [facility] [place] [facility] [address] [id number] [place] [address]- 3518 2014 [facility] [place] [facility] [address] [id number] [place] [address]- 0542 13 May, 2014 [facility] [place] [facility] [address] [id number] [place] [address]- 4726 13 May, 2014 [facility] [place] [facility] [address] [id number] [place] [address]- 0880 10 May, 2014 [facility] [place] [facility] [address] [id number] [place] [address]- 0705 10 May, 2014 [facility] [place] [facility] [address] [id number] [place] [address]- 5264 08 May, 2014 [facility] [place] [facility] [address] [id number] [place] [address]- 9294 08 May, 2014 [facility] [place] [facility] [address] [id number] [place] [address]- 0547 26 Apr, 2014 [facility] [place] [facility] [address] [id number] [place] [address]- 4827 23 Apr, 2013 [facility] [place] [facility] [address] [id number] [place] [address]- 1795 23 Apr, 2013 [facility] [place] [facility] [address] [id number] [place] [address]- 5435 23 Apr, 2013 [facility] [place] [facility] [address] [id number] [place] [address]- 5714 23 Apr, 2013 [facility] [place] [facility] [address] [id number] [place] [address]- 5247 10 Apr, 2013 [facility] [place] [facility] [address] [id number] [place] [address]- 7297 Apr, [facility] [place] [facility] [address] [id number] [place] [address]- 5492 Mar, [facility] [place] [facility] [address] [id number] [place] [address]- 9175 Mar, [facility] [place] [facility] [address] [id number] [place] [address]- 3746 Mar, [facility] [place] [facility] [address] [id number] [place] [address]- 4294 Mar, [facility] [place] [facility] [address] [id number] [place] [address]- 3638 Mar, [facility] [place] [facility] [address] [id number] [place] [address]- 4450 Mar, [facility] [place] [facility] [address] [id number] [place] [address]- 4013 Feb, [facility] [place] [facility] [address] [id number] [place] [address]- 4663 Feb, [facility] [place] [facility] [address] [id number] [place] [address]- 9110 Feb, [facility] [place] [facility] [address] [id number] [place] [address]- 1748 Feb, [facility] [place] [facility] [address] [id number] [place] [address]- 7666 Feb, [facility] [place] [facility] [address] [id number] [place] [address] Feb, [facility] [place] [facility] [address] [id number] [place] [address] Feb, [facility] [place] [facility] [address] [id number] [place] [address] Feb, [facility] [place] [facility] [address] [id number] [place] [address] Jan, [facility] [place] [facility] [address] [id number] [place] [address] Jan, [facility] [place] [facility] [address] [id number] [place] [address] 2477 December, [facility] [place] [facility] [address] [id number] [place] [address] December, [facility] [place] [facility] [address] [id number] [place] [address] 89[address] December, [facility] [place] [facility] [address] [id number] [place] [address] December, [facility] [place] [facility] [address] [id number] [place] [address]- [address]873 December, [facility] [place] [facility] [address] [id number] [place] [address]- [address] December, [facility] [place] [facility] [address] [id number] [place] [address]- 2737 December, [facility] [place] [facility] [address] [id number] [place] [address]- 30[address] December, [facility] [place] [facility] [address] [id number] [place] [address]- 8224 December, [facility] [place] [facility] [address] [id number] [place] [address]- 7514 December, [facility] [place] [facility] [address] [id number] [place] [address]- 12[address] December, [facility] [place] [facility] [address] [id number] [place] [address] December, [facility] [place] [facility] [address] [id number] [place] [address]6 Nov, [facility] [place] [facility] [address] [id number] [place] [address]- [address] Nov, [facility] [place] [facility] [address] [id number] [place] [address]- 9516 Nov, [facility] [place] [facility] [address] [id number] [place] [address]- 2354 Nov, [facility] [place] [facility] [address] [id number] [place] [address] Nov, [facility] [place] [facility] [address] [id number] [place] [address]- 7672 Nov, [facility] [place] [facility] [address] [id number] [place] [address]- 60[address] Nov, [facility] [place] [facility] [address] [id number] [place] [address]- 4067 Nov, [facility] [place] [facility] [address] [id number] [place] [address]- [address] Nov, [facility] [place] [facility] [address] [facility] [id number] [place] [address]- [address] Nov, [facility] [place] [facility] [address] [id number] [place] [address] 9759 Nov, [facility] [place] [facility] [address] [id number] [place] [address]- [address]573 Nov, [facility] [place] [facility] [address] [facility] [id number] [place] [address]- [address] Nov, [facility] [place] [facility] [address] [id number] [place] [address] Oct, [facility] [place] [facility] [address] [id number] [place] [address] 58[address] Oct, [facility] [place] [facility] [address] [id number] [place] [address]- [address] Sep, [facility] [place] [facility] [address] [id number] [place] [address]- 49[address] Sep, [facility] [place] [facility] [address] [facility] [id number] [place] [address]- 8863 Sep, [facility] [place] [facility] [address] [id number] [place] [address]- [address]338 Sep, [facility] [place] [facility] [address] [id number] [place] [address]- 395[address] Sep, [facility] [place] [facility] [address] [id number] [place] [address]- 6176 Sep, [facility] [place] [facility] [address] [id number] [place] [address]- [address]606 Sep, [facility] [place] [facility] [address] [id number] [place] [address]- 1020 Sep, [facility] [place] [facility] [address] [id number] [place] [address]- 8526 Sep, [facility] [place] [facility] [address] [id number] [place] [address]- 9301 Sep, [facility] [place] [facility] [address] [id number] [place] [address]- 1844 Sep, [facility] [place] [facility] [address] [id number] [place] [address]- [address]245 Sep, [facility] [place] [facility] [address] [facility] [id number] [place] [address]- 2809 Aug, [facility] [place] [facility] [address] [id number] [place] [address]- [address]77 Aug, [facility] [place] [facility] [address] [id number] [place] [address]- 7663 Aug, [facility] [place] [facility] [address] [id number] [place] [address]- 6[address] Aug, [facility] [place] [facility] [address] [id number] [place] [address]- 6705 Aug, [facility] [place] [facility] [address] [id number] [place] [address]- [address] Aug, [facility] [place] [facility] [address] [id number] [place] [address]- 4701 Aug, [facility] [place] [facility] [address] [id number] [place] [address]- 4782 Aug, [facility] [place] [facility] [address] [id number] [place] [address] Aug, [facility] [place] [facility] [address] [id number] [place] [address] 8667 Aug, [facility] [place] [facility] [address] [id number] [place] [address]- [address] Aug, [facility] [place] [facility] [address] [id number] [place] [address] 1101 Aug, [facility] [place] [facility] [address] [id number] [place] [address]- 8934 Aug, [facility] [place] [facility] [address] [id number] [place] [address]- 5848 Aug, [facility] [place] [facility] [address] [id number] [place] [address]- 0863 Aug, [facility] [place] [facility] [address] [id number] [place] [address]- 9093 Aug, [facility] [place] [facility] [address] [id number] [place] [address]- 0087 Aug, [facility] [place] [facility] [address] [id number] [place] [address]- 3966 Aug, [facility] [place] [facility] [address] [id number] [place] [address]- 9005 Aug, [facility] [place] [facility] [address] [id number] [place] [address]- 3917 Aug, [facility] [place] [facility] [address] [id number] [place] [address]- 0264 Aug, [facility] [place] [facility] [address] [id number] [place] [address]- 4843 Aug, [facility] [place] [facility] [address] [id number] [place] [address]- 6461 Aug, [facility] [address] [id number] [place] [address]- 8301 Jul, [facility] [address] [id number] [place] [address] Jul, [facility] [address] [id number] [place] [address]- 3838 Jul, [facility] [address] [id number] [place] [address]- 5775 Jul, [facility] [address] [id number] [place] [address]- 7554 Jul, [facility] [address] [id number] [place] [address]- 2901 Jul, [facility] [address] [id number] [place] [address]- 5868 Jun, [facility] [address] [id number] [place] [address]- 8112 Jun, [facility] [address] [id number] [place] [address]- 7098 Jun, [facility] [address] [id number] [place] [address]- 4002 Jun, [facility] [place] [facility] [address] [id number] [place] [address]- 5177 Jun, [facility] [place] [facility] [address] [id number] [place] [address]- 6627 Jun, [facility] [place] [facility] [address] [id number] [place] [address]- 5069 Jun, [facility] [place] [facility] [address] [id number] [place] [address]- 7278 05 Jun, 2013 [facility] [place] [facility] [address] [id number] [place] [address]- 2546 Jun, [facility] [place] [facility] [address] [id number] [place] [address] Jun, [facility] [place] [facility] [address] [id number] [place] [address]- 5723 May, [facility] [place] [facility] [address] [id number] [place] [address]- 9517 May, [facility] [place] [facility] [address] [id number] [place] [address]- 3769 May, [facility] [place] [facility] [address] [id number] [place] [address]- 7225 May, [facility] [place] [facility] [address] [id number] [place] [address]- 7667 May, [facility] [place] [facility] [address] [id number] [place] [address]- 3601 May, [facility] [place] [facility] [address] [id number] [place] [address]- 8085 May, [facility] [place] [facility] [address] [id number] [place] [address]- 0135 May, [facility] [place] [facility] [address] [id number] [place] [address]- 2212 May, [facility] [place] [facility] [address] [id number] [place] [address]- 5735 May, [facility] [place] [facility] [address] [id number] [place] [address]- [address] 17 May, 2013 [facility] [place] [facility] [address] [id number] [place] [address]- 1626 16 May, 2013 [facility] [place] [facility] [address] [id number] [place] [address]- 7705 May, [facility] [place] [facility] [address] [id number] [place] [address]- 2910 16 May, 2013 [facility] [place] [facility] [address] [id number] [place] [address]- 4188 May, [facility] [address] [id number] [place] [address]- 0895 Apr, [facility] [address] [id number] [place] [address]- 5854 Apr, [facility] [address] [id number] [place] [address]- 5653 Apr, [facility] [address] [id number] [place] [address]- 3400 Mar, [facility] [address] [id number] [place] [address]- 8729 Mar, [facility] [address] [id number] [place] [address]- 5502 Mar, [facility] [address] [id number] [place] [address]- 5903 Mar, [facility] [address] [id number] [place] [address]- 1041 Mar, [facility] [address] [id number] [place] [address]- 6365 Mar, [facility] [address] [id number] [place] [address]- 4391 Feb, [facility] [place] [facility] [address] [id number] [place] [address]- 3132 Feb, [facility] [address] [id number] [place] [address]- 0272 Feb, [facility] [place] [facility] [address] [id number] [place] [address]- 5403 Feb, [facility] [place] [facility] [address] [id number] [place] [address]- 4660 Feb, [facility] [address] [id number] [place] [address]- 2874 Feb, [facility] [address] [id number] [place] [address]- 0140 Feb, [facility] [place] [facility] [address] [id number] [place] [address]- 3976 Feb, [facility] [place] [facility] [address] [id number] [place] [address]- 4564 Feb, [facility] [place] [facility] [address] [id number] [place] [address]- 9343 Feb, [facility] [place] [facility] [address] [id number] [place] [address]- 3151 Jan, [facility] [place] [facility] [address] [id number] [place] [address]- 7379 Jan, [facility] [place] [facility] [address] [id number] [place] [address]- 3908 Jan, [facility] [place] [facility] [address] [id number] [place] [address]- 1605 Jan, [facility] [place] [facility] [address] [id number] [place] [address]- 8436 December, [facility] [place] [facility] [address] [id number] [place] [address]- 2745 December, [facility] [place] [facility] [address] [id number] [place] [address]- 4374 December, [facility] [place] [facility] [address] [id number] [place] [address]- 8821 Nov, [facility] [place] [facility] [address] [id number] [place] [address]- 1094 Nov, [facility] [place] [facility] [address] [id number] [place] [address]- 2699 Nov, [facility] [place] [facility] [address] [id number] [place] [address]- 7750 Nov, [facility] [place] [facility] [address] [id number] [place] [address]- 7072 Nov, [facility] [address] [id number] [place] [address]- 2632 Nov, [facility] [address] [id number] [place] [address]- 4825 Oct, [facility] [address] [id number] [place] [address]- 1142 Oct, [facility] [address] [id number] [place] [address]- 8572 Oct, [facility] [address] [id number] [place] [address]- 4771 Sep, [facility] [address] [id number] [place] [address]- 4409 Sep, [facility] [address] [id number] [place] [address]- 0362 Sep, [facility] [address] [id number] [place] [address]- 4765 Aug, [facility] [address] [id number] [place] [address]- 1496 Aug, [facility] [address] [id number] [place] [address]- 5550 Aug, [facility] [address] [id number] [place] [address]- 7394 Aug, [facility] [address] [id number] [place] [address]- 4294 Jul, [facility] [place] [facility] [address] [id number] [place] [address]- 0884 Jul, [facility] [place] [facility] [address] [id number] [place] [address]- 8716 Jul, [facility] [address] [id number] [place] [address]- 4902 Jul, [facility] [place] [facility] [address] [id number] [place] [address]- 2581 Jun, [facility] [place] [facility] [address] [id number] [place] [address]- 2543 Jun, [facility] [place] [facility] [address] [id number] [place] [address]- 4356 Jun, [facility] [place] [facility] [address] [id number] [place] [address], [place] [address]- 5553 Jun, [facility] [place] [facility] [address] [id number] [place] [address]- 9312 Jun, [facility] [place] [facility] [address] [id number] [place] [address], [place] [address]- 8822 Jun, [facility] [place] [facility] [address] [facility] [id number] [place] [address]- 3749 Jun, [facility] [place] [facility] [address] [id number] [place] [address]- 3901 Jun, [facility] [place] [facility] [address] [id number] [place] [address]- 0128 May, [facility] [place] [facility] [address] [id number] [place] [address]- 8535 30 May, 2012 [facility] [place] [facility] [address] [facility] [id number] [place] [address]- 4826 May, [facility] [place] [facility] [address] [id number] [place] [address]- 4605 18 May, 2012 [facility] [place] [facility] [address] [id number] [place] [address]- 2915 2012 [facility] [place] [facility] [address] [id number] [place] [address]- 0449 13 May, 2012 [facility] [place] [facility] [address] [id number] [place] [address]- 8216 11 May, 2012 [facility] [place] [facility] [address] [id number] [place] [address]- 0059 11 May, 2012 [facility] [place] [facility] [address] [id number] [place] [address]- 1783 10 May, 2012 [facility] [place] [facility] [address] [id number] [place] [address]- 0507 08 May, 2012 [facility] [place] [facility] [address] [id number] [place] [address]- 4698 24 Apr, 2012 [facility] [place] [facility] [address] [id number] [place] [address]- 3831 19 Apr, 2012 [facility] [place] [facility] [address] [id number] [place] [address]- 0243 18 Apr, 2012 [facility] [place] [facility] [address] [id number] [place] [address]- 9047 17 Apr, 2012 [facility] [place] [facility] [address] [id number] [place] [address]- 8231 16 Apr, 2012 [facility] [place] [facility] [address] [id number] [place] [address]- 2291 10 Apr, 2012 [facility] [place] [facility] [address] [id number] [place] [address]- 7874 29 Mar, 2012 [facility] [place] [facility] [address] [id number] [place] [address]- 8349 Mar, [facility] [place] [facility] [address] [id number] [place] [address]- 5200 Mar, [facility] [place] [facility] [address] [id number] [place] [address]- 7977 Mar, [facility] [place] [facility] [address] [id number] [place] [address]- 9845 Mar, [facility] [place] [facility] [address] [id number] [place] [address]- 6968 Mar, [facility] [place] [facility] [address] [id number] [place] [address]- 5006 Feb, [facility] [place] [facility] [address] [id number] [place] [address]- 9869 19 Feb, 2011 [facility] [address] [id number] [place] [address]- 4368 18 Feb, 2011 [facility] [place] [facility] [address] [id number] [place] [address]- 8366 17 Feb, 2011 [facility] [address] [id number] [place] [address]- 3036 13 Feb, 2011 [facility] [place] [facility] [address] [id number] [place] [address]- 8613 09 Feb, 2011 [facility] [address] [id number] [place] [address]- 3922 06 Feb, 2012 [facility] [place] [facility] [address] [id number] [place] [address]- 3705 Feb, [facility] [place] [facility] [address] [id number] [place] [address]- 3699 Feb, [facility] [address] [id number] [place] [address]- 7127 Jan, [facility] [place] [facility] [address] [id number] [place] [address]- 0030 Jan, [facility] [address] [id number] [place] [address]- 3978 Jan, [facility] [place] [facility] [address] [id number] [place] [address]- 9399 Jan, [facility] [place] [facility] [address] [id number] [place] [address]- 8301 15 Jan, 2012 [facility] [place] [facility] [address] [id number] [place] [address]- 4516 Jan, [facility] [place] [facility] [address] [id number] [place] [address]- 6958 08 Jan, 2012 [facility] [place] [facility] [address] [id number] [place] [address]- 7453 Jan, [facility] [address] [id number] [place] [address]- 9576 Jan, [facility] [place] [facility] [address] [id number] [place] [address]- 3760 December, [facility] [place] [facility] [address] [id number] [place] [address]- 5096 December, [facility] [place] [facility] [address] [id number] [place] [address]- 1466 December, [facility] [address] [id number] [place] [address]- 4367 December, [facility] [place] [facility] [address] [id number] [place] [address]- 7296 December, [facility] [place] [facility] [address] [id number] [place] [address]- 9649 December, [facility] [place] [facility] [address] [id number] [place] [address]- 2557 December, [facility] [place] [facility] [address] [id number] [place] [address]- 2726 December, [facility] [place] [facility] [address] [id number] [place] [address]- 0003 December, [facility] [place] [facility] [address] [id number] [place] [address]- 6076 December, [facility] [place] [facility] [address] [id number] [place] [address]- 1207 Nov, [facility] [place] [facility] [address] [id number] [place] [address]- 2665 Nov, [facility] [place] [facility] [address] [id number] [place] [address]- 3130 Nov, [facility] [place] [facility] [address] [id number] [place] [address]- 2476 Nov, [facility] [place] [facility] [address] [id number] [place] [address]- 0672 16 Nov, 2011 [facility] [address] [id number] [place] [address]- 4619 13 Nov, 2011 [facility] [place] [facility] [address] [id number] [place] [address]- 6826 09 Nov, 2011 [facility] [place] [facility] [address] [id number] [place] [address]- 4066 06 Nov, 2011 [facility] [place] [facility] [address] [id number] [place] [address]- 9276 05 Nov, 2011 [facility] [place] [facility] [address] [id number] [place] [address]- 3697 03 Nov, 2011 [facility] [place] [facility] [address] [id number] [place] [address]- 5640 30 Oct, 2011 [facility] [address] [id number] [place] [address]- 6155 29 Oct, 2011 [facility] [place] [facility] [address] [id number] [place] [address]- 9954 23 Oct, 2011 [facility] [place] [facility] [address] [id number] [place] [address]- 2437 23 Oct, 2011 [facility] [place] [facility] [address] [facility] [id number] [place] [address]- 0279 21 Oct, 2011 [facility] [place] [facility] [address] [id number] [place] [address]- 3340 20 Oct, 2011 [facility] [place] [facility] [address] [id number] [place] [address]- 8568 19 Oct, 2011 [facility] [place] [facility] [address] [id number] [place] [address]- 5149 19 Oct, 2011 [facility] [place] [facility] [address] [id number] [place] [address]- 7682 16 Oct, 2011 [facility] [place] [facility] [address] [facility] [id number] [place] [address]- 9037 14 Oct, 2011 [facility] [place] [facility] [address] [id number] [place] [address]- 7939 14 Oct, 2011 [facility] [place] [facility] [address] [id number] [place] [address]- 6712 09 Oct, 2011 [facility] [place] [facility] [address] [id number] [place] [address]- 4026 08 Oct, 2011 [facility] [place] [facility] [address] [id number] [place] [address]- 1334 06 Oct, 2011 [facility] [place] [facility] [address] [id number] [place] [address]- 0144 02 Oct, 2011 [facility] [place] [facility] [address] [id number] [place] [address]- 2014 28 Sep, 2011 [facility] [place] [facility] [address] [id number] [place] [address]- 0063 24 Sep, 2011 [facility] [place] [facility] [address] [id number] [place] [address]- 1213 20 Sep, 2011 [facility] [place] [facility] [address] [id number] [place] [address]- 1398 17 Sep, 2011 [facility] [place] [facility] [address] [id number] [place] [address]- 5133 16 Sep, 2011 [facility] [place] [facility] [address] [id number] [place] [address]- 9170 14 Sep, 2011 [facility] [place] [facility] [address] [id number] [place] [address]- 6386 13 Sep, 2011 [facility] [place] [facility] [address] [id number] [place] [address]- 1370 10 Sep, 2011 [facility] [place] [facility] [address] [id number] [place] [address]- 8476 06 Sep, 2011 [facility] [place] [facility] [address] [id number] [place] [address]- 6776 03 Sep, 2011 [facility] [place] [facility] [address] [id number] [place] [address]- 1121 Sep, [facility] [address] [id number] [place] [address]- 3842 Aug, [facility] [address] [id number] [place] [address]- 2994 Aug, [facility] [address] [id number] [place] [address]- 2445 Aug, [facility] [address] [id number] [place] [address]- 4030 Aug, [facility] [address] [id number] [place] [address]- 8753 Aug, [facility] [address] [id number] [place] [address]- 2567 Aug, [facility] [address] [id number] [place] [address]- 7728 17 Aug, 2011 [facility] [address] [id number] [place] [address]- 1763 17 Aug, 2011 [facility] [address] [id number] [place] [address] 16 Aug, 2011 [facility] [address] [id number] [place] [address] Aug, [facility] [address] [id number] [place] [address] Aug, [facility] [place] [facility] [address] [id number] [place] [address] Aug, [facility] [place] [facility] [address] [id number] [place] [address] Aug, [facility] [place] [facility] [address] [id number] [place] [address] Aug, [facility] [address] [id number] [place] [address] Aug, [facility] [address] [id number] [place] [address] Aug, [facility] [address] [id number] [place] [address] Aug, [facility] [place] [facility] [address] [id number] [place] [address] 30 Jul, 2011 [facility] [place] [facility] [address] [id number] [place] [address] Jul, [facility] [place] [facility] [address] [id number] [place] [address] Jul, [facility] [place] [facility] [address] [id number] [place] [address] Jul, [facility] [address] [id number] [place] [address] Jul, [facility] [address] [id number] [place] [address] Jul, [facility] [address] [id number] [place] [address] 17 Jul, 2011 [facility] [place] [facility] [address] [id number] [place] [address] 16 Jul, 2011 [facility] [place] [facility] [address] [id number] [place] [address] Jul, [facility] [place] [facility] [address] [id number] [place] [address] Jul, [facility] [place] [facility] [address] [id number] [place] [address] Jul, [facility] [place] [facility] [address] [id number] [place] [address] Jun, [facility] [place] [facility] [address] [id number] [place] [address] Jun, [facility] [place] [facility] [address] [id number] [place] [address] Jun, IMMUNIZATIONS No Known Immunizations SOCIAL HISTORY Never Assessed REASON FOR VISIT Controlled Med Refill 10/02/17 PLAN OF CARE VITAL SIGNS MEDICATIONS Medication Instructions Dosage Frequency Start Date End Date Duration Status Oxycodone HCl 5 MG Orally Once a day 1 tablet at bedtime 24h Sep, 28 days Active Ativan 0.5 MG Orally [...]
--- OUTSIDE RECORDS SUMMARY | 2018-08-05 03:27 | XMS REPORT ---
Author Author HEATHER FINE Organization [facility] Address [address] [place] [address] Care Team Providers Care Court Recorder Name Role Phone HEATHER FINE Unavailable PROBLEMS Type Condition ICD9-CM Code [id number] Code Onset Dates Condition Status SNOMED Code Problem Unspecified cirrhosis of liver K74.60 Active 314112460 Problem Lymphocytosis D72.820 Active 91913842 Problem Secondary esophageal varices with bleeding I85.11 Active 83085473 Problem Anxiety F41.9 Active 94952832 Problem Asthma J45.909 Active 220583365 Problem Chronic back pain M54.9 Active 783759121 Problem Dysthymia F34.1 Active 75091598 Problem Thrombocytosis D47.3 Active 4139920 Problem Splenomegaly R16.1 Active 83080770 Problem 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 Active 120896062 Problem History of hepatitis C Z86.19 Active [id number] ALLERGIES No Information ENCOUNTERS Encounter Location Date Diagnosis [place] [id number] [place] [address] 06990- 8915 Feb, [place] [address] [place] [id number] [place] [address] 42047- 3380 08 Jan, 2018 Chronic back pain M54.9 and Anxiety F41.9 [place] [id number] [place] [address] 85339- 1994 December, Chronic back pain M54.9 and Anxiety F41.9 [place] [address] [place] [id number] [place] [address] 91299- 3065 Nov, Chronic back pain M54.9 and Anxiety F41.9 [place] [address] [address] 1408 Oct, Chronic back pain M54.9 and Anxiety F41.9 [facility] [id number] [place] [address] 36881- 9325 Oct, [facility] [address] 82866- 7672 Sep, Chronic back pain M54.9 ; Anxiety F41.9 ; Pain of left leg M79.605 and Pain in right leg M79.604 [facility] [id number] [place] [address] 45147- 5475 Sep, Anxiety F41.9 and Chronic back pain M54.9 [facility] [address] [id number] [place] [address] 80333- 9189 Sep, [facility] [id number] [place] [address] 76035- 3128 Aug, Anxiety F41.9 [facility] [id number] [place] [address] 56536- 7916 Jul, Anxiety F41.9 [facility] [id number] [place] [address] 59361- 9419 Jul, [facility] [address] 76636- 9405 Jul, Viral syndrome B34.9 ; Chronic back pain M54.9 and Dysuria R30.0 [facility] [address] [id number] [place] [address] 48340- 1895 Jun, [facility] [id number] [place] [address] 35536- 5886 Jun, Anxiety F41.9 [facility] [address] 64271 -6252 Jun, Dysuria R30.0 and Acute cystitis without hematuria N30.00 [facility] [id number] [place] [address] 40234- 4458 Jun, [facility] [address] [place] [address]- 3878 May, Anxiety F41.9 [facility] [id number] [place] [address] 73298- 3259 May, Anxiety F41.9 [facility] [address] [facility] [id number] [address] 0466 Apr, [facility] [id number] [place] [address] 66538- 2391 Apr, Chronic back pain M54.9 and Anxiety F41.9 [facility] [id number] [place] [address] 79641- 9002 Mar, [facility] [id number] [place] [address] 90673- 8123 Mar, [facility] [id number] [place] [address] 18356- 5679 Mar, Well woman exam Z01.419 ; Cervical cancer screening Z12.4 ; Breast cancer screening Z12.31 and Colon cancer screening Z12.11 [facility] [id number] [place] [address] 54662- 3688 Mar, Chronic back pain M54.9 and Anxiety F41.9 [facility] [address] [address]- 7644 Mar, [facility] [id number] [place] [address] 46139- 2158 Feb, Chronic back pain M54.9 and Anxiety F41.9 [facility] [address], [place] [address]- 8676 Feb, [facility] [id number] [address]- 0796 Feb, [facility] [id number] [address]- 2556 Jan, Chronic back pain M54.9 and Anxiety F41.9 [facility] [address], [place] [address]- 5260 Jan, [facility] [address] [place] [address] 85802- 6511 Jan, [facility] [address], [place] [address]- 3316 December, Chronic back pain M54.9 and Anxiety F41.9 [facility] [address] [id number] [place] [address] 56210- 0468 Nov, Chronic back pain M54.9 and Anxiety F41.9 [facility] [address] [id number] [place] [address] 03359- 8224 Oct, Chronic back pain M54.9 and Anxiety F41.9 [facility] [id number] [place] [address] 13674- 2077 Oct, Chronic back pain M54.9 [facility] [id number] [place] [address] 29358- 2804 Sep, Anxiety F41.9 and Chronic back pain M54.9 [facility] [address] [address]- 8157 Aug, Anxiety F41.9 and Chronic back pain M54.9 [facility] [address], [place] [address]- 4126 Aug, [facility] [address], [place] [address]- 7429 Jul, Chronic back pain M54.9 and Anxiety F41.9 [facility] [address], [place] [address]- 5156 Jul, Anxiety F41.9 and Chronic back pain M54.9 [facility] [place] [address] [facility] [id number] [place] [id number] Jul, [facility] [address], [place] [address]- 6334 Jul, Anxiety F41.9 [facility] [address] [facility] [id number] [place] [address] 54844 2546 Jul, Anxiety F41.9 and Dysuria R30.0 [facility] [address] [facility] [id number] [place] [address] 53631 2546 Jul, Chronic back pain M54.9 and Anxiety F41.9 [facility] [address] [facility] [id number] [place] [address] 19609- 7752 Jun, Chronic back pain M54.9 [facility] [address] [facility] [id number] [place] [address] 06454- 5699 Jun, Chronic back pain M54.9 [facility] [id number] [place] [address] 04905- 7050 May, Anxiety F41.9 [facility] [address] [id number] [place] [address] 78512- 5073 May, Chronic back pain M54.9 [facility] [id number] [place] [address] 92391- 0576 Apr, [facility] [address] [place] [address] [id number] [place] [address] 33679- 7620 Apr, [facility] [id number] [place] [address] 83244- 8286 Apr, [facility] [address] [id number] [place] [address] 08071 2546 Apr, Chronic back pain M54.9 [facility] [address] [facility] [id number] [place] [address] 00878- 5716 Mar, Chronic back pain M54.9 [facility] [address] [place] [id number] [place] [address] 91992- 9527 Feb, Grief F43.20 [facility] [address] [place] [id number] [place] [address] 69479- 5862 Feb, Chronic back pain M54.9 and Anxiety F41.9 [facility] [id number] [place] [address] 88866- 6505 Feb, Chronic back pain M54.9 [facility] [address] [id number] [place] [address] 66832- 4809 Jan, Chronic back pain M54.9 [facility] [id number] [place] [address] 02920- 1640 December, [facility] [id number] [place] [address] 07062- 9454 December, Grief F43.20 [facility] [address] [place] [id number] [place] [address] 60801- 4775 Nov, [facility] [address] [id number] [place] [address] 22839- 1587 Oct, Cervicalgia M54.2 ; Secondary esophageal varices with bleeding I85.11 and Mouth pain K13.79 [facility] [address] [id number] [place] [address] 75405- 3230 Oct, [facility] [id number] [place] [address] 05223- 6141 Oct, [facility] [id number] [place] [address] 94661- 3112 Sep, [facility] [id number] [place] [address] 58344- 4207 Sep, Acute maxillary sinusitis, recurrence not specified J01.00 [facility] [id number] [place] [address] 39009- 9623 Aug, [facility] [id number] [place] [address] 44163- 1116 Aug, [facility] [id number] [place] [address] 13824- 3418 Aug, Dysuria R30.0 and Chronic back pain M54.9 [facility] [address] [facility] [id number], [place] [address]- 9078 Jul, [facility] [address] [facility] [id number] [place] [address] 45021- 4706 Jul, [facility] [address] [id number] [place] [address] 52352- 1959 Jul, [facility] [address] [facility] [id number] [place] [address] 47291- 7671 Jul, Chronic back pain M54.9 [facility] [address] [facility] [id number] [place] [address] 516594- 7538 Jul, Dysthymia F34.1 and Chronic back pain M54.9 [facility] [address] [place] [id number] [place] [address] 33274- 2485 Jun, [facility] [id number] [place] [address] 16857- 5617 Jun, [facility] [address] [place] [id number] [place] [address] 06962- 8342 May, [facility] [id number] [place] [address] 47113- 1796 May, [facility] [id number] [place] [address] 55031- 6347 May, [facility] [id number] [place] [address] 73607- 0152 May, Encounter for immunization Z23 [facility] [id number], [place] [address]- 6569 15 Apr, 2015 [facility] [id number] [place] [address] 71769- 4331 Apr, [facility] [address] [facility] [id number] [address]- 6425 Mar, [facility] [address] [id number] [place] [address] 64330- 2246 Mar, Back pain 724.5 [facility] [address] [id number] [place] [address]- 5836 Mar, Cough 786.2 and Back pain 724.5 [facility] [address] [id number] [place] [address]- 5638 Mar, [facility] [address] [id number] [place] [address]- 3834 Mar, [facility] [address] [id number] [place] [address]- 2536 December, [facility] [address] [facility] [id number] [place] [address], [place] [address]- 4857 December, [facility] [address] [id number] [place] [address]- 7920 Nov, [facility] [address] [place] [address]- 4581 Nov, [facility] [address] [facility] [id number] [place] [address]- 2357 Oct, [facility] [address] [place] [address]- 4397 Oct, [facility] [address] [id number] [place] [address]- 9416 Sep, [facility] [id number] [address]- 3457 Sep, [facility] [address] [facility] [id number] [place] [address]- 6123 Sep, [facility] [address] [facility] [id number] [place] [address]- 9734 Sep, [facility] [address] [facility] [id number], [place] [address]- 4119 Sep, [facility] [address] [address]- 6543 Sep, [facility] [place] [facility] [address] [id number] [place] [address]- 5745 Sep, [facility] [place] [facility] [address] [id number] [place] 5595 Sep, [facility] [place] [facility] [address] [id number] [place] [address]- 1926 Aug, [facility] [place] [facility] [address] [id number] [place] [address]- 8700 Aug, [facility] [place] [facility] [address] [id number] [place] [address]- 7835 Aug, [facility] [place] [facility] [address] [id number] [place] [address]- 0461 Aug, [facility] [place] [facility] [address] [facility] [id number] [place] [address]- 9138 Aug, [facility] [place] [facility] [address] [id number] [place] [address]- 0654 Aug, [facility] [place] [facility] [address] [id number] [place] [address]- 2289 Aug, [facility] [place] [facility] [address] [facility] [id number] [place] [address]- 3747 Jul, [facility] [place] [facility] [address] [id number] [place] [address]- 0102 Jul, [facility] [place] [facility] [address] [id number] [place] [address]- 8812 Jul, [facility] [place] [facility] [address] [id number] [place] [address]- 6918 18 Jul, 2014 [facility] [place] [facility] [address] [id number] [place] [address]- 7823 15 Jul, 2014 [facility] [place] [facility] [address] [facility] [id number] [place] [address]- 4661 15 Jul, 2014 [facility] [place] [facility] [address] [id number] [place] [address]- 6039 05 Jul, 2014 [facility] [place] [facility] [address] [id number] [place] 5220 05 Jul, 2014 [facility] [place] [facility] [address] [id number] [place] [address]- 6683 Jun, [facility] [place] [facility] [address] [id number] [place] [address]- 2932 Jun, [facility] [place] [facility] [address] [id number] [place] [address]- 8674 Jun, [facility] [place] [facility] [address] [id number] [place] [address]- 0689 Jun, [facility] [place] [facility] [address] [id number] [place] [address]- 2158 Jun, [facility] [place] [facility] [address] [id number] [place] [address]- 1922 Jun, [facility] [place] [facility] [address] [id number] [place] [address]- 1864 Jun, [facility] [place] [facility] [address] [id number] [place] [address]- 0282 May, [facility] [place] [facility] [address] [id number] [place] [address]- 9411 May, [facility] [place] [facility] [address] [id number] [place] [address]- 2388 May, [facility] [place] [facility] [address] [id number] [place] [address]- 2913 28 May, 2014 [facility] [place] [facility] [address] [id number] [place] 1621 May, [facility] [place] [facility] [address] [id number] [place] 7279 May, [facility] [place] [facility] [address] [id number] [place] [address]- 6896 2014 [facility] [place] [facility] [address] [id number] [place] [address]- 5285 2014 [facility] [place] [facility] [address] [id number] [place] [address]- 0475 13 May, 2014 [facility] [place] [facility] [address] [id number] [place] [address]- 5983 13 May, 2014 [facility] [place] [facility] [address] [id number] [place] [address]- 8971 10 May, 2014 [facility] [place] [facility] [address] [id number] [place] [address]- 6679 May, [facility] [place] [facility] [address] [id number] [place] [address]- 4490 08 May, 2014 [facility] [place] [facility] [address] [id number] [place] [address]- 7050 May, [facility] [place] [facility] [address] [id number] [place] [address]- 9701 26 Apr, 2014 [facility] [place] [facility] [address] [id number] [place] [address]- 1289 23 Apr, 2014 [facility] [place] [facility] [address] [id number] [place] [address]- 1230 23 Apr, 2014 [facility] [place] [facility] [address] [id number], [place] [address]- 0644 23 Apr, 2013 [facility] [place] [facility] [address] [id number], [place] [address]- 4959 23 Apr, 2013 [facility] [place] [facility] [address] [id number] [place] [address]- 2976 10 Apr, 2014 [facility] [place] [facility] [address] [id number] [place] [address]- 3108 10 Apr, 2014 [facility] [place] [facility] [address] [id number] [place] [address]- 6604 15 Mar, 2014 [facility] [place] [facility] [address] [id number] [place] [address]- 6994 Mar, [facility] [place] [facility] [address] [id number] [place] [address]- 4850 Mar, [facility] [place] [facility] [address] [id number] [place] [address]- 9870 Mar, [facility] [place] [facility] [address] [id number] [place] [address]- 0569 Mar, [facility] [place] [facility] [address] [id number] [place] [address]- 4084 Mar, [facility] [place] [facility] [address] [id number] [place] [address]- 0727 Feb, [facility] [place] [facility] [address] [id number] [place] [address]- 5859 Feb, [facility] [place] [facility] [address] [id number] [place] [address]- 3228 Feb, [facility] [place] [facility] [address] [id number] [place] [address]- 4927 Feb, [facility] [place] [facility] [address] [id number] [place] [address]- 1304 Feb, [facility] [place] [facility] [address] [id number] [place] [address]- 7917 Feb, [facility] [place] [facility] [address] [id number] [place] [address]- 5512 Feb, [facility] [place] [facility] [address] [id number] [place] [address]- 7547 Feb, [facility] [place] [facility] [address] [id number] [place] [address]- 2055 Jan, [facility] [place] [facility] [address] [id number] [place] [address]- 7409 Jan, [facility] [place] [facility] [address] [id number] [place] [address]- 9462 December, [facility] [place] [facility] [address] [id number] [place] [address]- 8125 December, [facility] [place] [facility] [address] [id number] [place] [address]- 1931 December, [facility] [place] [facility] [address] [id number] [place] [address]- 7278 December, [facility] [place] [facility] [address] [id number] [place] [address]- 9268 December, [facility] [place] [facility] [address] [id number] [place] [address]- 0103 December, [facility] [place] [facility] [address] [id number] [place] [address]- 3508 December, [facility] [place] [facility] [address] [id number] [place] [address]- 8149 December, [facility] [place] [facility] [address] [id number] [place] [address]- 4849 December, [facility] [place] [facility] [address] [id number] [place] [address]- 3628 December, [facility] [place] [facility] [address] [id number] [place] [address]- 6683 December, [facility] [place] [facility] [address] [id number] [place] [address] December, [facility] [place] [facility] [address] [id number] [place] [address] Nov, [facility] [place] [facility] [address] [id number] [place] [address] Nov, [facility] [place] [facility] [address] [id number] [place] [address] Nov, [facility] [place] [facility] [address] [id number] [place] [address] Nov, [facility] [place] [facility] [address] [id number] [place] [address] Nov, [facility] [place] [facility] [address] [id number] [place] [address] Nov, [facility] [place] [facility] [address] [id number] [place] [address] Nov, [facility] [place] [facility] [address] [facility] [id number] [place] [address] Nov, [facility] [place] [facility] [address] [id number] [place] [address] Nov, [facility] [place] [facility] [address] [id number] [place] [address] Nov, [facility] [place] [facility] [address] [facility] [id number] [place] [address] Nov, [facility] [place] [facility] [address] [facility] [id number] [place] [address] Nov, [facility] [place] [facility] [address] [id number] [place] [address] Nov, [facility] [place] [facility] [address] [id number] [place] [address] Oct, [facility] [place] [facility] [address] [id number] [place] [address] Oct, [facility] [place] [facility] [address] [id number] [place] [address] Sep, [facility] [place] [facility] [address] [id number] [place] [address] Sep, [facility] [place] [facility] [address] [id number] [place] [address] Sep, [facility] [place] [facility] [address] [id number] [place] [address] Sep, [facility] [place] [facility] [address] [id number] [place] [address] Sep, [facility] [place] [facility] [address] [id number] [place] [address] Sep, [facility] [place] [facility] [address] [id number] [place] [address] Sep, [facility] [place] [facility] [address] [id number] [place] [address] 18 Sep, 2013 [facility] [place] [facility] [address] [id number] [place] [address] Sep, [facility] [place] [facility] [address] [id number] [place] [address] Sep, [facility] [place] [facility] [address] [id number] [place] [address] Sep, [facility] [place] [facility] [address] [facility] [id number] [place] [address] Sep, [facility] [place] [facility] [address] [id number] [place] [address] Aug, [facility] [place] [facility] [address] [id number] [place] [address] Aug, [facility] [place] [facility] [address] [facility] [id number] [place] [address] Aug, [facility] [place] [facility] [address] [facility] [id number] [place] [address] Aug, [facility] [place] [facility] [address] [id number], [place] [address] Aug, [facility] [place] [facility] [address] [id number] [place] [address] Aug, [facility] [place] [facility] [address] [id number] [place] [address] Aug, [facility] [place] [facility] [address] [id number] [place] [address] Aug, [facility] [place] [facility] [address] [id number], [place] [address] Aug, [facility] [address] [id number] [place] [address] Aug, [facility] [place] [facility] [address] [id number] [place] [address] Aug, [facility] [place] [facility] [address] [id number] [place] [address] Aug, [facility] [place] [facility] [address] [id number] [place] [address] Aug, [facility] [place] [facility] [address] [id number] [place] [address] Aug, [facility] [place] [facility] [address] [id number] [place] [address] Aug, [facility] [place] [facility] [address] [id number] [place] [address] Aug, [facility] [place] [facility] [address] [id number] [place] [address] Aug, [facility] [place] [facility] [address] [id number] [place] [address] 3[address] Aug, [facility] [place] [facility] [address] [id number] [place] [address] 5317 Aug, [facility] [place] [facility] [address] [id number] [place] [address] 6442 Aug, [facility] [place] [facility] [address] [id number] [place] [address]- 2344 Aug, [facility] [place] [facility] [address] [id number] [place] [address]- 1168 Aug, [facility] [place] [facility] [address] [id number] [place] [address] 7301 Aug, [facility] [place] [facility] [address] [id number] [place] [address]- 1014 Jul, [facility] [place] [facility] [address] [id number] [place] [address]- 2997 13 Jul, 2013 [facility] [place] [facility] [address] [id number] [place] [address] 1380 Jul, [facility] [place] [facility] [address] [id number] [place] [address]- 3582 Jul, [facility] [place] [facility] [address] [id number] [place] [address]- 9119 Jul, [facility] [place] [facility] [address] [id number] [place] [address]- 3813 Jul, [facility] [place] [facility] [address] [id number] [place] [address] 3624 Jun, [facility] [place] [facility] [address] [id number] [place] [address] 8363 Jun, [facility] [place] [facility] [address] [id number] [place] [address]- 3690 Jun, [facility] [place] [facility] [address] [id number] [place] [address]- 7622 Jun, [facility] [place] [facility] [address] [id number] [place] [address]- 6837 Jun, [facility] [place] [facility] [address] [facility] [id number] [place] [address]- 5114 Jun, [facility] [place] [facility] [address] [id number] [place] [address]- 5650 Jun, [facility] [place] [facility] [address] [id number] [place] [address]- 7262 Jun, [facility] [place] [facility] [address] [id number] [place] [address]- 4456 Jun, [facility] [place] [facility] [address] [facility] [id number] [place] [address]- 2367 Jun, [facility] [place] [facility] [address] [id number] [place] [address]- 2100 May, 2012 [facility] [place] [facility] [address] [id number] [place] [address]- 5281 30 May, 2012 [facility] [place] [facility] [address] [id number] [place] [address]- 8674 30 May, 2012 [facility] [place] [facility] [address] [id number] [place] [address]- 5736 30 May, 2012 [facility] [place] [facility] [address] [id number], [place] [address]- [address] May, 2012 [facility] [place] [facility] [address] [id number] [place] [address]- 9582 24 May, 2013 [facility] [place] [facility] [address] [id number] [place] [address]- 0259 24 May, 2013 [facility] [place] [facility] [address] [id number] [place] [address]- 4817 May, 2012 [facility] [place] [facility] [address] [id number], [place] [address]- 7278 May, [facility] [place] [facility] [address] [id number], [place] [address]- 9507 21 May, 2013 [facility] [place] [facility] [address] [id number], [place] [address]- 7776 17 May, 2012 [facility] [place] [facility] [address] [id number], [place] [address]- 1568 16 May, 2012 [facility] [place] [facility] [address] [id number], [place] [address]- 2843 16 May, 2012 [facility] [place] [facility] [address] [id number], [place] [address]- 4820 16 May, 2013 [facility] [place] [facility] [address] [id number], [place] [address]- 7090 16 May, 2012 [facility] [place] [facility] [address] [id number], [place] [address]- 4503 24 Apr, 2013 [facility] [place] [facility] [address] [id number] [place] [address]- 6269 Apr, [facility] [address] [id number] [place] [address]- 4136 Apr, [facility] [place] [facility] [address] [id number] [place] [address]- 6478 Mar, [facility] [place] [facility] [address] [id number] [place] [address]- 1151 Mar, [facility] [place] [facility] [address] [id number] [place] [address]- 5625 Mar, [facility] [place] [facility] [address] [id number] [place] [address]- 5352 Mar, [facility] [place] [facility] [address] [id number] [place] [address]- 3823 Mar, [facility] [address] [id number] [place] [address]- 1218 Mar, [facility] [place] [facility] [address] [id number] [place] [address]- 6582 Feb, [facility] [place] [facility] [address] [id number] [place] [address]- 8294 Feb, [facility] [place] [facility] [address] [id number] [place] [address]- 2350 Feb, [facility] [place] [facility] [address] [id number] [place] [address]- 4931 Feb, [facility] [place] [facility] [address] [id number] [place] [address]- 2003 Feb, [facility] [place] [facility] [address] [id number] [place] [address]- 6921 Feb, [facility] [place] [facility] [address] [id number] [place] [address]- 7637 Feb, [facility] [place] [facility] [address] [id number] [place] [address]- 2807 Feb, [facility] [place] [facility] [address] [id number] [place] [address]- 2271 Feb, [facility] [address] [id number] [place] [address]- 1324 Feb, [facility] [place] [facility] [address] [id number] [place] [address]- 0391 Jan, [facility] [place] [facility] [address] [id number] [place] [address]- 6203 Jan, [facility] [address] [id number] [place] [address]- 5904 Jan, [facility] [place] [facility] [address] [id number] [place] [address]- 9182 Jan, [facility] [address] [id number] [place] [address]- 3044 December, [facility] [address] [id number] [place] [address]- 9476 December, [facility] [address] [id number] [place] [address]- 0350 December, [facility] [place] [facility] [address] [id number] [place] [address]- 8089 Nov, [facility] [place] [facility] [address] [id number] [place] [address]- 7508 Nov, [facility] [place] [facility] [address] [id number] [place] [address]- 9676 Nov, [facility] [place] [facility] [address] [id number] [place] [address]- 0725 Nov, [facility] [place] [facility] [address] [id number] [place] [address]- 7255 Nov, [facility] [place] [facility] [address] [id number] [place] [address]- 4552 Nov, [facility] [place] [facility] [address] [id number] [place] [address]- 1516 Oct, [facility] [address] [id number] [place] [address]- 4220 Oct, [facility] [address] [id number] [place] [address]- 5933 Oct, [facility] [address] [id number] [place] [address]- 5658 Sep, [facility] [address] [id number] [place] [address]- 0378 Sep, [facility] [address] [id number] [place] [address]- 1445 Sep, [facility] [address] [id number] [place] [address]28 Aug, [facility] [address] [id number] [place] [address]- 2155 Aug, [facility] [address] [id number] [place] [address]- 2095 Aug, [facility] [address] [id number] [place] [address]- 7745 Aug, [facility] [address] [id number] [place] [address]- 7659 Jul, [facility] [address] [id number] [place] [address]- 2796 Jul, [facility] [place] [facility] [address] [id number] [place] [address]- 8928 Jul, [facility] [place] [facility] [address] [id number] [place] [address]- 8047 Jul, [facility] [place] [facility] [address] [id number] [place] [address]- 5933 Jun, [facility] [place] [facility] [address] [id number] [place] [address]- 6747 Jun, [facility] [place] [facility] [address] [id number] [place] [address]- 8626 Jun, [facility] [place] [facility] [address] [id number] [place] [address]- 2360 Jun, [facility] [place] [facility] [address] [id number] [place] [address]- 3314 Jun, [facility] [place] [facility] [address] [id number] [place] [address]- 9966 Jun, [facility] [place] [facility] [address] [id number] [place] [address]- 6515 Jun, [facility] [place] [facility] [address] [id number] [place] [address]- 2083 Jun, [facility] [place] [facility] [address] [id number] [place] [address]- 2792 May, [facility] [place] [facility] [address] [id number] [place] [address]- 0741 30 May, 2012 [facility] [place] [facility] [address] [id number] [place] [address]- 5260 18 May, 2012 [facility] [place] [facility] [address] [id number] [place] [address]- 0387 18 May, 2012 [facility] [place] [facility] [address] [facility] [id number] [place] [address]- 9292 2012 [facility] [place] [facility] [address] [id number] [place] [address]- 6301 13 May, 2012 [facility] [place] [facility] [address] [id number] [place] [address]- 1467 11 May, 2012 [facility] [place] [facility] [address] [id number] [place] 6427 11 May, 2012 [facility] [place] [facility] [address] [facility] [id number] [place] [address]- 9374 10 May, 2012 [facility] [place] [facility] [address] [id number] [place] [address]- 9189 08 May, 2012 [facility] [place] [facility] [address] [id number] [place] [address]- 9844 24 Apr, 2012 [facility] [place] [facility] [address] [id number] [place] [address]- 1366 19 Apr, 2012 [facility] [place] [facility] [address] [id number] [place] [address]- 7722 18 Apr, 2012 [facility] [place] [facility] [address] [id number] [place] [address]- 2435 17 Apr, 2012 [facility] [place] [facility] [address] [id number] [place] [address]- 6487 16 Apr, 2012 [facility] [place] [facility] [address] [id number] [place] [address]- 1814 10 Apr, 2012 [facility] [place] [facility] [address] [id number] [place] [address]- 8486 29 Mar, 2012 [facility] [place] [facility] [address] [id number] [place] [address]- 0287 Mar, [facility] [place] [facility] [address] [id number] [place] [address]- 3869 Mar, [facility] [place] [facility] [address] [id number] [place] [address]- 2469 Mar, [facility] [place] [facility] [address] [id number] [place] [address]- 6339 Mar, [facility] [place] [facility] [address] [id number] [place] [address]- 8174 Mar, [facility] [place] [facility] [address] [id number] [place] [address]- 1130 Feb, [facility] [place] [facility] [address] [id number] [place] [address]- 3887 Feb, [facility] [place] [facility] [address] [id number] [place] [address]- 4216 Feb, [facility] [place] [facility] [address] [id number] [place] [address]- 8487 17 Feb, 2012 [facility] [place] [facility] [address] [id number] [place] [address]- 6269 Feb, [facility] [place] [facility] [address] [id number] [place] [address]- 3486 Feb, [facility] [place] [facility] [address] [id number] [place] [address]- 7536 Feb, [facility] [place] [facility] [address] [id number] [place] [address]- 6483 Feb, [facility] [place] [facility] [address] [id number] [place] [address]- 3872 Feb, [facility] [place] [facility] [address] [id number] [place] [address]- 2385 Jan, [facility] [place] [facility] [address] [id number] [place] [address]- 3772 Jan, [facility] [place] [facility] [address] [id number] [place] [address]- 4239 Jan, [facility] [place] [facility] [address] [id number] [place] [address]- 8639 Jan, [facility] [place] [facility] [address] [id number] [place] [address]- 1798 Jan, [facility] [place] [facility] [address] [id number] [place] [address]- 3216 Jan, [facility] [place] [facility] [address] [id number] [place] [address]- 6675 Jan, [facility] [place] [facility] [address] [id number] [place] [address]- 4986 Jan, [facility] [place] [facility] [address] [id number] [place] [address]- 1437 Jan, [facility] [place] [facility] [address] [id number] [place] [address]- 3818 December, [facility] [place] [facility] [address] [id number] [place] [address]- 0932 December, [facility] [address] [id number] [place] [address]- 3981 December, [facility] [address] [id number] [place] [address]- 1786 December, [facility] [address] [id number] [place] [address]- 9384 December, [facility] [address] [id number] [place] [address]- 6016 December, [facility] [address] [id number] [place] [address]- 6812 December, [facility] [address] [id number] [place] [address]- 4603 December, [facility] [address] [id number] [place] [address]- 1319 December, [facility] [address] [id number] [place] [address]- 4119 December, [facility] [address] [id number] [place] [address]- 1331 30 Nov, 2011 [facility] [place] [facility] [address] [id number] [place] [address]- 7088 Nov, [facility] [place] [facility] [address] [id number] [place] [address]- 5667 Nov, [facility] [place] [facility] [address] [id number] [place] [address]- 6934 Nov, [facility] [place] [facility] [address] [id number] [place] [address]- 9619 16 Nov, 2011 [facility] [place] [facility] [address] [id number] [place] [address]- 4948 13 Nov, 2011 [facility] [place] [facility] [address] [id number] [place] [address]- 7313 09 Nov, 2011 [facility] [place] [facility] [address] [id number] [place] [address]- 9542 06 Nov, 2011 [facility] [place] [facility] [address] [id number] [place] [address]- 9246 05 Nov, 2011 [facility] [place] [facility] [address] [id number] [place] [address] 2546 Nov, [facility] [place] [facility] [address] [id number] [place] [address]- 9391 30 Oct, 2011 [facility] [place] [facility] [address] [id number] [place] [address]- 9281 29 Oct, 2011 [facility] [place] [facility] [address] [id number] [place] [address]- 0087 23 Oct, 2011 [facility] [place] [facility] [address] [id number] [place] [address]- 5647 23 Oct, 2011 [facility] [place] [facility] [address] [id number] [place] [address]- 1243 21 Oct, 2011 [facility] [place] [facility] [address] [id number] [place] [address]- 9168 20 Oct, 2011 [facility] [place] [facility] [address] [id number] [place] [address]- 3377 19 Oct, 2011 [facility] [place] [facility] [address] [id number] [place] [address]- 3966 19 Oct, 2011 [facility] [place] [facility] [address] [id number] [place] [address]- 3256 16 Oct, 2011 [facility] [place] [facility] [address] [id number] [place] [address]- 7036 14 Oct, 2011 [facility] [place] [facility] [address] [id number] [place] [address]- 0121 14 Oct, 2011 [facility] [place] [facility] [address] [id number] [place] [address]- 9566 09 Oct, 2011 [facility] [place] [facility] [address] [id number] [place] [address]- 3801 08 Oct, 2011 [facility] [place] [facility] [address] [id number] [place] [address]- 9526 06 Oct, 2011 [facility] [place] [facility] [address] [id number] [place] [address] 2546 Oct, [facility] [place] [facility] [address] [id number] [place] [address]- 8232 28 Sep, 2011 [facility] [place] [facility] [address] [id number] [place] [address] 254 24 Sep, 2011 [facility] [place] [facility] [address] [id number] [place] [address]- 0696 20 Sep, 2011 [facility] [place] [facility] [address] [id number] [place] [address]- 6616 17 Sep, 2011 [facility] [place] [facility] [address] [id number] [place] [address]- 1494 16 Sep, 2011 [facility] [place] [facility] [address] [id number] [place] [address]- 9831 14 Sep, 2011 [facility] [place] [facility] [address] [id number] [place] [address]- 6399 13 Sep, 2011 [facility] [place] [facility] [address] [facility] [id number] [place] [address]- 8909 10 Sep, 2011 [facility] [place] [facility] [address] [id number] [place] [address] 2545 06 Sep, 2011 [facility] [place] [facility] [address] [id number] [place] [address]- 6804 03 Sep, 2011 [facility] [place] [facility] [address] [id number] [place] [address]- 5936 Sep, [facility] [place] [facility] [address] [id number] [place] [address]- 5332 Aug, [facility] [place] [facility] [address] [id number] [place] [address]- 8198 Aug, [facility] [address] [id number] [place] [address]- 9275 Aug, [facility] [place] [facility] [address] [id number] [place] [address]- 2840 Aug, [facility] [place] [facility] [address] [id number] [place] [address]- 1054 Aug, [facility] [place] [facility] [address] [id number] [place] [address]- 0628 17 Aug, 2011 [facility] [address] [id number] [place] [address]- 0943 Aug, [facility] [place] [facility] [address] [id number] [place] [address] 17 Aug, 2011 [facility] [address] [id number] [place] [address] 16 Aug, 2011 [facility] [place] [facility] [address] [id number] [place] [address] Aug, [facility] [place] [facility] [address] [id number] [place] [address] Aug, [facility] [place] [facility] [address] [id number] [place] [address] Aug, [facility] [place] [facility] [address] [id number] [place] [address] Aug, [facility] [place] [facility] [address] [id number] [place] [address] Aug, [facility] [place] [facility] [address] [id number] [place] [address] Aug, [facility] [place] [facility] [address] [id number] [place] [address] Aug, [facility] [place] [facility] [address] [id number] [place] [address] Aug, [facility] [place] [facility] [address] [facility] [id number], [place] [address] 30 Jul, 2011 [facility] [address] [facility] [id number][place] [address] Jul, [facility] [address] [facility] [id number][place] [address] Jul, [facility] [address] [facility] [id number], [place] [address] Jul, [facility] [address] [facility] [id number][place] [address] [address] Jul, [facility] [address] [facility] [id number] [place] [address] Jul, [facility] [address] [facility] [id number][place] [address] [address] Jul, [facility] [id number] [place] [address] Jul, [facility] [id number], [place] [address] Jul, [facility] [id number], [place] [address] Jul, [facility] [id number] [address] Jul, [facility] [id number], [place] [address] Jun, [facility] [address] [id number] [address] Jun, [facility] [id number], [place] [address] Jun, IMMUNIZATIONS No Known Immunizations SOCIAL HISTORY Never Assessed REASON FOR VISIT Controlled Med Refill -08/07/17 PLAN OF CARE VITAL SIGNS MEDICATIONS Medication Instructions Dosage Frequency Start Date End Date Duration Status Oxycodone HCl 5 MG Orally Once a day 1 tablet at bedtime 24h Jul, 28 days Active RESULTS No Results PROCEDURES [...]
--- OUTSIDE RECORDS SUMMARY | 2018-08-05 03:27 | XMS REPORT ---
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 Name Role Phone HEATHER FINE CP Unavailable Allergies, Adverse Reactions, Alerts Substance Reaction Event Type Sulfamethoxazole-Trimethoprim Info Not Available Drug Allergy Problems Problem Type Condition Code Onset Dates Condition Status Problem Anxiety F41.9 Active Problem Secondary esophageal varices with bleeding I85.11 Active Problem Asthma J45.909 Active Assessment Anxiety F41.9 Active Assessment Chronic back pain M54.9 Active Problem Chronic back pain M54.9 Active Problem Thrombocytosis D47.3 Active Problem Dysthymia F34.1 Active Problem 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 Active Problem History of hepatitis C Z86.19 Active Problem Lymphocytosis D72.820 Active Problem Splenomegaly R16.1 Active Medications Medication Code System Code Instructions Start Date End Date Status Dosage Nadolol [facility] [address]-77 40 mg Orally Once a day 0.5 tablet Ativan [facility] [address]-00 0.5 MG Orally 3 times a day December 14, 2015 1 tablet as needed Folic Acid [facility] [address]-58 1 MG Orally Once a day 1 tablet Aldactone [facility] 24046017653 50 MG Once a day 1 Tablet by Oral route Aciphex [facility] [address]-62 20 mg Orally Once a day 1 tablet Oxycodone HCl [facility] [address]-33 5 MG Orally Once a day Mar 29, 2015 1 tablet at bedtime Procedures Procedure Coding System Code Date Office Visit, Est Pt., Level 3 CPT-4 41227 February 22, 2016 Vital Signs Date/Time: February 22, 2016 Cardiac Monitoring Heart Rate 60 bpm Weight 99.6 lbs Height 61 in BMI 18.82 Index Blood Pressure Diastolic 60 mmHg Blood Pressure Systolic 92 mmHg Results No Known Results Summary Purpose [employer] Submission
--- OUTSIDE RECORDS SUMMARY | 2018-08-05 03:28 | XMS REPORT ---
Author Author HEATHER FINE Organization [facility] [place] Address [address] [place] [address] Care Team Providers Care Auditor Tax Name Role Phone HEATHER FINE Unavailable PROBLEMS Type Condition ICD9-CM Code WMC41-AH Code Onset Dates Condition Status SNOMED Code Problem Unspecified cirrhosis of liver K74.60 Active 803276057 Problem Lymphocytosis D72.820 Active 79184471 Problem Secondary esophageal varices with bleeding I85.11 Active 24790409 Problem Anxiety F41.9 Active 64663491 Problem Asthma J45.909 Active 446251130 Problem Chronic back pain M54.9 Active 389931640 Problem Dysthymia F34.1 Active 77444236 Problem Thrombocytosis D47.3 Active 9953599 Problem Splenomegaly R16.1 Active 81856030 Problem 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 Active 720516947 Problem History of hepatitis C Z86.19 Active [id number] ALLERGIES No Information ENCOUNTERS Encounter Location Date Diagnosis [place] [id number] [place] [address] 06150- 7755 December, Chronic back pain M54.9 and Anxiety F41.9 [place] [address] [place] [id number] [place] [address] 50026- 9418 Nov, Chronic back pain M54.9 and Anxiety F41.9 [place] [address] [id number] [place] [address] 37311- 8300 Oct, Chronic back pain M54.9 and Anxiety F41.9 [place] [address] [place] [id number] [place] [address] 39994- 9880 Oct, [facility] [place] [id number] [place] [address] 15836- 7818 Sep, Chronic back pain M54.9 ; Anxiety F41.9 ; Pain of left leg M79.605 and Pain in right leg M79.604 [facility] [place] [id number] [place] [address] 02483- 0610 Sep, Anxiety F41.9 and Chronic back pain M54.9 [facility] [place] [id number] [place] [address] 18512- 6318 Sep, [facility] [place] [address] 65194- 5887 Aug, Anxiety F41.9 [facility] [place] [id number] [place] [address] 07402- 5036 Jul, Anxiety F41.9 [facility] [place] [address] 90027- 4244 Jul, [facility] [place] [address] 41859- 4103 Jul, Viral syndrome B34.9 ; Chronic back pain M54.9 and Dysuria R30.0 [facility] [place] [id number] [place] [address] 31386- 1758 Jun, [facility] [place] [id number] [place] [address] 32107- 8477 Jun, Anxiety F41.9 [facility] [id number] [place] [address] 51865 -6684 Jun, Dysuria R30.0 and Acute cystitis without hematuria N30.00 [facility] [place] [id number] [place] [address] 18811- 7164 Jun, [facility] [place] [id number] [place] [address] 71758- 0029 May, Anxiety F41.9 [facility] [place] [id number] [place] [address] 53638- 4667 May, Anxiety F41.9 [facility] [place] [address] [place] [address]- 0174 07 Apr, 2017 [facility] [place] [address], [place] [address]- 6027 Apr, Chronic back pain M54.9 and Anxiety F41.9 [facility] [place] [address], [place] [address]- 9003 Mar, [facility] [place] [id number] [place] [address] 74742- 1709 Mar, [facility] [place] [address], [place] [address]- 5259 Mar, Well woman exam Z01.419 ; Cervical cancer screening Z12.4 ; Breast cancer screening Z12.31 and Colon cancer screening Z12.11 [facility] [place] [address], [place] [address]- 3265 Mar, Chronic back pain M54.9 and Anxiety F41.9 [facility] [place] [address], [place] [address]- 0899 Mar, [facility] [place] [id number] [place] [address] 18389- 7941 Feb, Chronic back pain M54.9 and Anxiety F41.9 [facility] [place] [address], [place] [address]- 1086 Feb, [facility] [place] [address], [place] [address]- 6550 Feb, [facility] [place] [address] [id number] [address]- 0179 Jan, Chronic back pain M54.9 and Anxiety F41.9 [facility] [place] [address] [address]- 5617 Jan, [facility] [place] [address], [place] [address]- 9418 Jan, [facility] [place] [id number] [address]- 1223 December, Chronic back pain M54.9 and Anxiety F41.9 [facility] [place] [address] [id number] [place] [address] 40858- 5378 Nov, Chronic back pain M54.9 and Anxiety F41.9 [facility] [place] [address] [id number] [place] [address] 47369- 9195 Oct, Chronic back pain M54.9 and Anxiety F41.9 [facility] [place] [id number] [place] [address] 21403- 5402 Oct, Chronic back pain M54.9 [facility] [place] [id number] [place] [address] 80189- 8895 Sep, Anxiety F41.9 and Chronic back pain M54.9 [facility] [place] [id number] [place] [address] 33961- 3542 Aug, Anxiety F41.9 and Chronic back pain M54.9 [facility] [place] [id number] [place] [address] 25661- 7693 Aug, [facility] [place] [id number] [place] [address] 92512- 8883 Jul, Chronic back pain M54.9 and Anxiety F41.9 [facility] [place] [address] [place] [address] 98576- 5467 Jul, Anxiety F41.9 and Chronic back pain M54.9 [facility] [place] [address] [facility] [id number] [place] [id number] Jul, [facility] [place] [address] [place] [address] 09453- 0525 Jul, Anxiety F41.9 [facility] [place] [address] [place] [address] 26240- 0237 Jul, Anxiety F41.9 and Dysuria R30.0 [facility] [place] [address] [place] [place] [id number] [place] [address] 96044- 4595 Jul, Chronic back pain M54.9 and Anxiety F41.9 [facility] [place] [address] [facility] [id number] [place] [address] 91684- 8027 Jun, Chronic back pain M54.9 [facility] [place] [address] [facility] [id number] [place] [address] 89950 2546 Jun, Chronic back pain M54.9 [facility] [place] [address] [facility] [id number] [place] [address] 03078- 8416 May, Anxiety F41.9 [facility] [place] [address] [facility] [id number] [place] [address] 95472- 9193 May, Chronic back pain M54.9 [facility] [place] [address] [facility] [id number] [place] [address] 59532- 2866 Apr, [facility] [place] [address] [place] [id number] [place] [address] 60188- 0546 Apr, [facility] [place] [address] [facility] [id number] [place] [address] 38603 2541 Apr, [facility] [place] [address] [facility] [id number] [place] [address] 77309- 1716 Apr, Chronic back pain M54.9 [facility] [place] [address] [place] [address] [id number] [place] [address] 47106- 2303 Mar, Chronic back pain M54.9 [facility] [place] [address] [facility] [id number] [place] [address] 39064 2542 Feb, Grief F43.20 [facility] [place] [address] [facility] [id number] [place] [address] 20916- 9416 Feb, Chronic back pain M54.9 and Anxiety F41.9 [facility] [place] [address] [facility] [id number] [place] [address] 39296 2546 Feb, Chronic back pain M54.9 [facility] [place] [address] [facility] [id number] [place] [address] 32310- 1301 Jan, Chronic back pain M54.9 [facility] [place] [address] [place] [id number] [place] [address] 56674- 6896 December, [facility] [place] [address] [place] [id number] [place] [address] 59517- 8563 December, Grief F43.20 [facility] [place] [address] [place] [id number] [place] [address] 07216- 0948 Nov, [facility] [place] [id number] [place] [address] 65891- 7669 Oct, Cervicalgia M54.2 ; Secondary esophageal varices with bleeding I85.11 and Mouth pain K13.79 [facility] [place] [address] [id number] [place] [address] 61530- 4589 Oct, [facility] [place] [address] [place] [id number] [place] [address] 23243- 8194 Oct, [facility] [place] [id number] [place] [address] 88626- 2280 Sep, [facility] [place] [address] [id number] [place] [address] 82126- 6834 Sep, Acute maxillary sinusitis, recurrence not specified J01.00 [facility] [place] [address] [place] [id number] [place] [address] 79945- 5161 Aug, [facility] [place] [id number] [place] [address] 13978- 4037 Aug, [facility] [place] [id number] [place] [address] 07917- 4594 Aug, Dysuria R30.0 and Chronic back pain M54.9 [facility] [place] [id number] [place] [address] 94349- 8415 Jul, [facility] [place] [id number] [place] [address] 51840- 7662 Jul, [facility] [place] [address] [place] [id number] [place] [address] 34299- 1506 Jul, [facility] [place] [id number] [place] [address] 20719- 7550 Jul, Chronic back pain M54.9 [facility] [place] [id number] [place] [address] 57541- 9413 Jul, Dysthymia F34.1 and Chronic back pain M54.9 [facility] [place] [id number] [place] [address] 66140- 5312 Jun, [facility] [place] [id number] [place] [address] 43235- 2427 Jun, [facility] [place] [id number] [place] [address] 25831- 5735 May, [facility] [place] [id number] [place] [address] 74037- 9088 May, [facility] [place] [id number] [place] [address] 88504- 3647 May, [facility] [place] [id number] [place] [address] 70393- 6786 May, Encounter for immunization Z23 [facility] [place] [id number] [place] [address] 19790- 2090 15 Apr, 2015 [facility] [place] [id number] [place] [address] 61417- 8762 Apr, [facility] [place] [id number] [place] [address] 43553- 8068 Mar, [facility] [place] [id number] [place] [address] 68221- 2890 Mar, Back pain 724.5 [facility] [place] [id number] [place] [address] 32027- 4721 17 Mar, 2015 Cough 786.2 and Back pain 724.5 [facility] [place] [id number] [place] [address] 29483- 2942 Mar, [facility] [place] [facility] [address] [id number] [place] [address]- 0922 Mar, [facility] [place] [facility] [address] [id number] [place] 3021 December, [facility] [place] [facility] [address] [facility] [id number] [place] [address]- 5926 December, [facility] [place] [facility] [address] [facility] [id number] [place] [address]- 5942 Nov, [facility] [place] [facility] [address] [facility] [id number] [place] [address]- 3183 Nov, [facility] [place] [facility] [address] [facility] [id number] [place] [address]- 6948 Oct, [facility] [place] [facility] [id number] [place] [address]- 3346 Oct, [facility] [place] [facility] [address] [facility] [id number] [place] [address]- 1299 Sep, [facility] [place] [facility] [id number] [place] [address]- 7611 Sep, [facility] [place] [facility] [id number] [place] [address]- 2894 Sep, [facility] [place] [facility] [id number] [place] [address]- 0551 Sep, 2014 [facility] [place] [facility] [address] [facility] [id number], [place] [address]- 4467 Sep, [facility] [place] [facility] [address] [facility] [id number] [place] [address]- 7531 Sep, [facility] [place] [facility] [address] [facility] [id number], [place] [address]- 0239 Sep, [facility] [place] [facility] [id number] 4646 Sep, [facility] [place] [facility] [address] [id number] [place] [address]- 6574 Aug, [facility] [place] [facility] [address] [id number] [place] [address]- 6749 Aug, [facility] [place] [facility] [address] [id number] [place] [address]- 0134 Aug, [facility] [place] [facility] [address] [id number] [place] [address]- 2155 Aug, [facility] [place] [facility] [address] [id number] [place] [address]- 0790 Aug, [facility] [place] [facility] [address] [id number] [place] [address]- 5513 Aug, [facility] [place] [facility] [address] [id number] [place] [address]- 8677 Aug, [facility] [place] [facility] [address] [id number] [place] [address]- 1808 Jul, [facility] [place] [facility] [address] [id number] [place] [address]- 1793 Jul, [facility] [place] [facility] [address] [id number] [place] [address]- 3445 Jul, [facility] [place] [facility] [address] [id number] [place] [address]- 5849 Jul, [facility] [place] [facility] [address] [id number] [place] [address]- 5325 15 Jul, 2014 [facility] [place] [facility] [address] [id number] [place] [address]- 2504 Jul, [facility] [place] [facility] [address] [id number] [place] 1465 Jul, [facility] [place] [facility] [address] [id number] [place] [address]- 3821 05 Jul, 2014 [facility] [place] [facility] [address] [id number], [place] [address]- 0629 Jun, [facility] [place] [facility] [address] [id number] [place] [address]- 7042 Jun, [facility] [place] [facility] [address] [id number] [place] [address]- 2221 Jun, [facility] [place] [facility] [address] [id number] [place] [address]- 9079 Jun, [facility] [place] [facility] [address] [id number] [place] [address]- 3507 Jun, [facility] [place] [facility] [address] [id number] [place] [address]- 5262 Jun, [facility] [place] [facility] [address] [id number] [place] [address]- 6620 Jun, [facility] [place] [facility] [address] [id number] [place] [address]- 5977 May, [facility] [place] [facility] [address] [id number] [place] [address]- 1010 28 May, 2014 [facility] [place] [facility] [address] [id number] [place] [address]- 9590 28 May, 2014 [facility] [place] [facility] [address] [id number] [place] [address]- 0074 28 May, 2014 [facility] [place] [facility] [address] [id number], [place] [address]- 6099 2014 [facility] [place] [facility] [address] [id number], [place] [address]- 9758 2014 [facility] [place] [facility] [address] [id number] [place] [address]- 4558 2014 [facility] [place] [facility] [address] [id number], [place] [address]- 6324 2014 [facility] [place] [facility] [address] [id number] [place] [address]- 5209 13 May, 2014 [facility] [place] [facility] [address] [id number] [place] [address]- 9457 13 May, 2014 [facility] [place] [facility] [address] [id number] [place] [address]- 1739 10 May, 2014 [facility] [place] [facility] [address] [id number] [place] [address]- 0234 May, [facility] [place] [facility] [address] [id number] [place] [address]- 8759 08 May, 2014 [facility] [place] [facility] [address] [id number] [place] [address]- 5952 08 May, 2014 [facility] [place] [facility] [address] [id number] [place] [address]- 5667 26 Apr, 2014 [facility] [place] [facility] [address] [id number] [place] [address]- 6595 23 Apr, 2014 [facility] [place] [facility] [address] [id number] [place] [address]- 7786 Apr, 2013 [facility] [place] [facility] [address] [id number] [place] [address] 23 Apr, 2014 [facility] [place] [facility] [address] [id number] [place] [address] 23 Apr, 2014 [facility] [place] [facility] [address] [id number] [place] [address] 10 Apr, 2014 [facility] [place] [facility] [address] [id number] [place] [address] 10 Apr, 2014 [facility] [place] [facility] [address] [id number] [place] [address] 15 Mar, 2014 [facility] [place] [facility] [address] [id number] [place] [address] Mar, [facility] [place] [facility] [address] [id number] [place] [address] Mar, [facility] [place] [facility] [address] [id number] [place] [address] Mar, [facility] [place] [facility] [address] [id number] [place] [address] Mar, [facility] [place] [facility] [address] [id number] [place] [address] Mar, [facility] [place] [facility] [address] [id number] [place] [address] Feb, [facility] [place] [facility] [address] [id number] [place] [address] Feb, [facility] [place] [facility] [address] [id number] [place] [address] Feb, [facility] [place] [facility] [address] [id number] [place] [address] Feb, [facility] [place] [facility] [address] [id number] [place] [address] 27[address] Feb, [facility] [place] [facility] [address] [id number] [place] [address] Feb, [facility] [place] [facility] [address] [id number] [place] [address] 45[address] Feb, [facility] [place] [facility] [address] [id number] [place] [address] Feb, [facility] [place] [facility] [address] [id number] [place] [address] Jan, [facility] [place] [facility] [address] [id number] [place] [address] Jan, [facility] [place] [facility] [address] [id number] [place] [address] December, [facility] [place] [facility] [address] [id number] [place] [address] December, [facility] [place] [facility] [address] [id number] [place] [address] December, [facility] [place] [facility] [address] [id number] [place] [address] December, [facility] [place] [facility] [address] [id number] [place] [address] December, [facility] [place] [facility] [address] [id number] [place] [address] December, [facility] [place] [facility] [address] [id number] [place] [address] December, [facility] [place] [facility] [address] [id number] [place] [address]60 December, [facility] [place] [facility] [address] [id number] [place] [address] December, [facility] [place] [facility] [address] [id number] [place] [address] December, [facility] [place] [facility] [address] [id number] [place] [address]- 2426 December, [facility] [place] [facility] [address] [id number] [place] [address] 98[address] December, [facility] [place] [facility] [address] [id number] [place] [address] Nov, [facility] [place] [facility] [address] [id number] [place] [address] Nov, [facility] [place] [facility] [address] [id number] [place] [address] 4074 Nov, [facility] [place] [facility] [address] [id number] [place] [address] Nov, [facility] [place] [facility] [address] [id number] [place] [address] Nov, [facility] [place] [facility] [address] [id number] [place] [address] Nov, [facility] [place] [facility] [address] [id number] [place] [address]- [address] Nov, [facility] [place] [facility] [address] [id number] [place] [address] Nov, [facility] [place] [facility] [address] [id number] [place] [address] Nov, [facility] [place] [facility] [address] [id number] [place] [address]- [address] Nov, [facility] [place] [facility] [address] [id number] [place] [address] Nov, [facility] [place] [facility] [address] [address] [id number] [place] [address] Nov, [facility] [place] [facility] [address] [id number] [place] [address]290 Nov, [facility] [place] [facility] [address] [id number] [place] [address] 7120 Oct, [facility] [place] [facility] [address] [id number] [place] [address] 6531 Oct, [facility] [place] [facility] [address] [id number] [place] [address] 5218 Sep, [facility] [place] [facility] [address] [id number] [place] [address] 4391 Sep, [facility] [place] [facility] [address] [id number] [place] [address] 0486 Sep, [facility] [place] [facility] [address] [id number] [place] [address] 6530 Sep, [facility] [place] [facility] [address] [id number] [place] [address] 0449 Sep, [facility] [place] [facility] [address] [id number] [place] [address] 6606 Sep, [facility] [place] [facility] [address] [id number] [place] [address] 8[address] Sep, [facility] [place] [facility] [address] [id number] [place] [address] 9002 18 Sep, 2013 [facility] [place] [facility] [address] [id number] [place] [address]- 2376 Sep, [facility] [place] [facility] [address] [id number] [place] [address]- 9186 Sep, [facility] [place] [facility] [address] [id number] [place] [address]- 4156 Sep, [facility] [place] [facility] [address] [id number] [place] [address]- 4180 Sep, [facility] [place] [facility] [address] [id number] [place] [address]- 9623 Aug, [facility] [place] [facility] [address] [id number] [place] [address]- 8266 Aug, [facility] [place] [facility] [address] [id number] [place] [address]- 8742 Aug, [facility] [place] [facility] [address] [id number] [place] [address]- 9050 Aug, [facility] [place] [facility] [address] [id number] [place] [address] 1933 Aug, [facility] [place] [facility] [address] [id number] [place] [address]- 9899 Aug, [facility] [place] [facility] [address] [id number] [place] [address]- 9985 Aug, [facility] [place] [facility] [address] [id number] [place] [address]- 9459 Aug, [facility] [place] [facility] [address] [id number] [place] [address]- 7936 Aug, [facility] [place] [facility] [address] [id number] [place] [address]- 5877 24 Aug, 2013 [facility] [place] [facility] [address] [id number] [place] [address]- 6056 16 Aug, 2013 [facility] [place] [facility] [address] [id number] [place] [address]- 9938 16 Aug, 2013 [facility] [place] [facility] [address] [id number] [place] [address]- 4011 Aug, [facility] [place] [facility] [address] [id number] [place] [address]- 7186 Aug, [facility] [place] [facility] [address] [id number] [place] [address]- 3719 Aug, [facility] [address] [id number] [place] [address]- 4674 Aug, [facility] [place] [facility] [address] [id number] [place] [address]- 1410 Aug, [facility] [place] [facility] [address] [id number] [place] [address] 8479 Aug, [facility] [place] [facility] [address] [id number] [place] [address]- 2298 Aug, [facility] [place] [facility] [address] [id number] [place] [address]- 0985 Aug, [facility] [place] [facility] [address] [id number] [place] [address]- 2921 Aug, [facility] [place] [facility] [address] [id number] [place] [address]- 0642 Aug, [facility] [place] [facility] [address] [id number], [place] [address] 1495 Aug, [facility] [place] [facility] [address] [id number] [place] [address]- 8935 Jul, [facility] [place] [facility] [address] [id number] [place] [address] 4132 Jul, [facility] [place] [facility] [address] [id number] [place] [address]- 1516 Jul, [facility] [place] [facility] [address] [id number], [place] [address] 6298 Jul, [facility] [place] [facility] [address] [id number] [place] [address]- 3625 Jul, [facility] [place] [facility] [address] [id number] [address] Jul, [facility] [place] [facility] [address] [id number] [place] [address]- 3607 Jun, [facility] [place] [facility] [address] [id number], [place] [address]- 2428 Jun, [facility] [place] [facility] [address] [id number] [place] [address]- 6812 Jun, [facility] [place] [facility] [address] [id number] [place] [address]- 8197 Jun, [facility] [place] [facility] [address] [id number], [place] [address] 3103 Jun, [facility] [place] [facility] [address] [id number] [place] [address]- 3770 Jun, [facility] [place] [facility] [address] [id number], [place] [address]- 7534 Jun, [facility] [place] [facility] [address] [id number], [place] [address]- 5784 Jun, [facility] [place] [facility] [address] [id number], [place] [address]- 7663 Jun, [facility] [place] [facility] [address] [id number], [place] [address]- 5583 Jun, [facility] [place] [facility] [address] [id number], [place] [address]- 2081 May, [facility] [place] [facility] [address] [id number], [place] [address]- 0056 May, [facility] [place] [facility] [address] [id number] [place] [address]- 1726 May, [facility] [place] [facility] [address] [id number] [place] [address]- 5300 30 May, 2012 [facility] [place] [facility] [address] [id number] [place] [address]- 2462 26 May, 2012 [facility] [place] [facility] [address] [id number] [place] [address]- 7930 24 May, 2013 [facility] [place] [facility] [address] [id number] [place] [address]- 1415 24 May, 2012 [facility] [place] [facility] [address] [id number] [place] [address]- 4651 22 May, 2012 [facility] [place] [facility] [address] [id number] [place] [address]- 2727 May, [facility] [place] [facility] [address] [id number] [place] [address]- 2367 May, [facility] [place] [facility] [address] [id number] [place] [address]- 3028 17 May, 2012 [facility] [place] [facility] [address] [id number] [place] [address]- 9817 16 May, 2013 [facility] [place] [facility] [address] [id number] [place] [address]- 3612 16 May, 2013 [facility] [place] [facility] [address] [id number] [place] [address]- 6061 16 May, 2013 [facility] [place] [facility] [address] [id number] [place] [address]- 8618 16 May, 2013 [facility] [place] [facility] [address] [id number] [place] [address]- 1510 24 Apr, 2013 [facility] [place] [facility] [address] [id number] [place] [address]- 8251 23 Apr, 2013 [facility] [place] [facility] [address] [id number] [place] [address]- 0223 Apr, [facility] [place] [facility] [address] [id number] [place] [address]- 3093 Mar, [facility] [place] [facility] [address] [id number] [place] [address]- 2580 Mar, [facility] [place] [facility] [address] [id number] [place] [address]- 3802 Mar, [facility] [place] [facility] [address] [id number] [place] [address]- 6188 Mar, [facility] [place] [facility] [address] [id number] [place] [address]- 2644 Mar, [facility] [place] [facility] [address] [id number] [place] [address]- 6350 Mar, [facility] [place] [facility] [address] [id number] [place] [address]- 8337 Feb, [facility] [place] [facility] [address] [id number] [place] [address]- 8915 Feb, [facility] [place] [facility] [address] [id number] [place] [address]- 9375 Feb, [facility] [place] [facility] [address] [id number] [place] [address]- 2533 Feb, [facility] [place] [facility] [address] [id number] [place] [address]- 5451 Feb, [facility] [place] [facility] [address] [id number] [place] [address]- 4061 Feb, [facility] [place] [facility] [address] [id number] [place] [address]- 9640 Feb, [facility] [place] [facility] [address] [id number] [place] [address]- 5650 Feb, [facility] [place] [facility] [address] [id number] [place] [address]- 2356 Feb, [facility] [place] [facility] [address] [id number] [place] [address]- 0822 Feb, [facility] [place] [facility] [address] [id number] [place] [address]- 9308 Jan, [facility] [address] [id number] [place] [address]- 5506 Jan, [facility] [place] [facility] [address] [id number] [place] [address]- 9806 Jan, [facility] [address] [id number] [place] [address]- 3977 Jan, [facility] [place] [facility] [address] [id number] [place] [address]- 4269 December, [facility] [address] [id number] [place] [address]- 3887 December, [facility] [address] [id number] [place] [address]- 4303 December, [facility] [address] [id number] [place] [address]- 6949 Nov, [facility] [address] [id number] [place] [address]- 3106 Nov, [facility] [address] [id number] [place] [address]- 6850 Nov, [facility] [address] [id number] [place] [address]- 5883 Nov, [facility] [place] [facility] [address] [id number] [place] [address]- 4262 Nov, [facility] [place] [facility] [address] [id number] [place] [address]- 9980 Nov, [facility] [place] [facility] [address] [id number] [place] [address]- 0840 Oct, [facility] [place] [facility] [address] [id number] [place] [address]- 4796 Oct, [facility] [place] [facility] [address] [id number] [place] [address]- 3393 Oct, [facility] [place] [facility] [address] [id number] [place] [address]- 1531 Sep, [facility] [address] [id number] [place] [address]- 9266 Sep, [facility] [place] [facility] [address] [id number] [place] [address]- 5166 Sep, [facility] [address] [id number] [place] [address]- 5257 Aug, [facility] [address] [id number] [place] [address]- 8268 Aug, [facility] [address] [id number] [place] [address]- 6056 Aug, [facility] [address] [id number] [place] [address]- 0739 Aug, [facility] [address] [id number] [place] [address]- 1883 Jul, [facility] [address] [id number] [place] [address]- 2019 Jul, [facility] [address] [id number] [place] [address]- 0175 Jul, [facility] [address] [id number] [place] [address]- 6204 Jul, [facility] [address] [id number] [place] [address]- 8318 Jun, [facility] [place] [facility] [address] [id number] [place] [address]- 9826 Jun, [facility] [place] [facility] [address] [id number] [place] [address]- 7396 Jun, [facility] [place] [facility] [address] [id number] [place] [address]- 0931 Jun, [facility] [place] [facility] [address] [id number], [place] [address]- 2231 Jun, [facility] [place] [facility] [address] [id number] [place] [address]- 5341 05 Jun, 2012 [facility] [place] [facility] [address] [id number] [place] [address]- 7333 Jun, [facility] [place] [facility] [address] [id number] [place] [address]- 0085 Jun, [facility] [place] [facility] [address] [id number] [place] [address]- 4684 30 May, 2012 [facility] [place] [facility] [address] [id number] [place] [address]- 3787 30 May, 2012 [facility] [place] [facility] [address] [id number] [place] [address] 18 May, 2012 [facility] [place] [facility] [address] [id number] [place] [address]- 2555 18 May, 2012 [facility] [place] [facility] [address] [id number] [place] [address]- 0336 2012 [facility] [place] [facility] [address] [id number] [place] [address]- 6102 13 May, 2012 [facility] [place] [facility] [address] [id number] [place] [address]- 8249 11 May, 2012 [facility] [place] [facility] [address] [id number], [place] [address]- 9988 11 May, 2012 [facility] [place] [facility] [address] [id number], [place] [address]- 0569 10 May, 2012 [facility] [place] [facility] [address] [id number] [place] [address] 08 May, 2012 [facility] [place] [facility] [address] [id number], [place] [address]- 2387 24 Apr, 2012 [facility] [place] [facility] [address] [id number] [place] [address]- 3815 19 Sep2011 [facility] [place] [facility] [address] [id number] [place] [address]- 6524 18 Apr, 2011 [facility] [place] [facility] [address] [id number] [place] [address]- 4036 17 Apr, 2012 [facility] [place] [facility] [address] [id number] [place] [address]- 9386 16 Apr, 2012 [facility] [address] [id number] [place] [address]- 0356 10 Apr, 2012 [facility] [place] [facility] [address] [id number] [place] [address]- 7334 29 Mar, 2012 [facility] [place] [facility] [address] [id number] [place] [address]- 0976 27 Mar, 2012 [facility] [place] [facility] [address] [id number] [place] [address]- 6745 23 Mar, 2012 [facility] [address] [id number] [place] [address]- 5762 Mar, [facility] [address] [id number] [place] [address]- 4914 Mar, [facility] [place] [facility] [address] [id number] [place] [address]- 0560 Mar, [facility] [address] [id number] [place] [address]- 7689 27 Feb, 2012 [facility] [place] [facility] [address] [id number] [place] [address]- 3630 Feb, [facility] [place] [facility] [address] [id number] [place] [address]- 7334 18 Feb, 2012 [facility] [place] [facility] [address] [id number] [place] [address]- 7210 17 Feb, 2012 [facility] [place] [facility] [address] [id number] [place] [address]- 4966 13 Feb, 2012 [facility] [place] [facility] [address] [id number] [place] [address]- 5684 Feb, [facility] [place] [facility] [address] [id number] [place] [address]- 7962 Feb, [facility] [place] [facility] [address] [id number] [place] [address]- 7875 Feb, [facility] [place] [facility] [address] [id number] [place] [address]- 9414 Feb, [facility] [place] [facility] [address] [id number] [place] [address]- 7447 Jan, [facility] [place] [facility] [address] [id number] [place] [address]- 5143 Jan, [facility] [place] [facility] [address] [id number] [place] [address]- 7372 Jan, [facility] [place] [facility] [address] [id number] [place] [address]- 9510 Jan, [facility] [place] [facility] [address] [id number] [place] [address]- 1885 Jan, [facility] [place] [facility] [address] [id number] [place] [address]- 4986 Jan, [facility] [place] [facility] [address] [id number] [place] [address]- 3560 Jan, [facility] [place] [facility] [address] [id number] [place] [address]- 4731 Jan, [facility] [place] [facility] [address] [id number] [place] [address]- 0730 Jan, [facility] [place] [facility] [address] [id number] [place] [address]- 6221 December, [facility] [place] [facility] [address] [id number] [place] [address]- 1079 December, [facility] [place] [facility] [address] [id number] [place] [address]- 7728 December, [facility] [place] [facility] [address] [id number] [place] [address]- 4810 December, [facility] [address] [id number] [place] [address]- 5618 December, [facility] [address] [id number] [place] [address]- 3078 December, [facility] [address] [id number] [place] [address]- 4487 December, [facility] [address] [id number] [place] [address]- 2902 December, [facility] [address] [id number] [place] [address]- 8519 December, [facility] [address] [id number] [place] [address]- 2934 December, [facility] [address] [id number] [place] [address]- 2503 30 Nov, 2011 [facility] [address] [id number] [place] [address]- 4730 Nov, [facility] [address] [id number] [place] [address]- 1913 26 Nov, 2011 [facility] [address] [id number] [place] [address]- 1321 Nov, [facility] [address] [id number] [place] [address]- 0270 16 Nov, 2011 [facility] [place] [facility] [address] [id number] [place] [address]- 4709 13 Nov, 2011 [facility] [place] [facility] [address] [id number] [place] [address]- 2073 09 Nov, 2011 [facility] [place] [facility] [address] [id number] [place] [address]- 3182 06 Nov, 2011 [facility] [address] [id number] [place] [address] 05 Nov, 2011 [facility] [place] [facility] [address] [id number] [place] [address] 03 Nov, 2011 [facility] [place] [facility] [address] [id number] [place] [address] 1596 30 Oct, 2011 [facility] [place] [facility] [address] [id number] [place] [address]6 29 Oct, 2011 [facility] [place] [facility] [address] [id number] [place] [address] 23 Oct, 2011 [facility] [place] [facility] [address] [id number] [place] [address] 23 Oct, 2011 [facility] [place] [facility] [address] [id number] [place] [address] 6366 21 Oct, 2011 [facility] [place] [facility] [address] [id number] [place] [address] 7[address] 20 Oct, 2011 [facility] [place] [facility] [address] [id number] [place] [address] 00[address] 19 Oct, 2011 [facility] [place] [facility] [address] [id number] [place] [address] 8699 19 Oct, 2011 [facility] [place] [facility] [address] [id number] [place] [address] 9723 16 Oct, 2011 [facility] [place] [facility] [address] [id number] [place] [address] 5678 14 Oct, 2011 [facility] [place] [facility] [address] [id number] [place] [address] 5633 14 Oct, 2011 [facility] [place] [facility] [address] [id number] [place] [address] 0419 09 Oct, 2011 [facility] [place] [facility] [address] [id number] [place] [address]- 2206 08 Oct, 2011 [facility] [place] [facility] [address] [id number] [place] [address] 2546 06 Oct, 2011 [facility] [place] [facility] [address] [id number] [place] [address]- 1141 Oct, [facility] [address] [id number] [place] [address] 3536 28 Sep, 2011 [facility] [place] [facility] [address] [id number] [place] [address] 4306 24 Sep, 2011 [facility] [place] [facility] [address] [facility] [id number] [place] [address] 2546 20 Sep, 2011 [facility] [place] [facility] [address] [id number] [place] [address] 2546 17 Sep, 2011 [facility] [place] [facility] [address] [id number] [place] [address]- 4236 16 Sep, 2011 [facility] [place] [facility] [address] [id number] [place] [address]- 7846 14 Sep, 2011 [facility] [address] [id number] [address] 13 Sep, 2011 [facility] [place] [facility] [address] [facility] [id number] [place] [address] 3745 10 Sep, 2011 [facility] [place] [facility] [address] [facility] [id number] [place] [address] 8369 06 Sep, 2011 [facility] [place] [facility] [address] [facility] [id number] [place] [address]- 3977 Sep, [facility] [place] [facility] [address] [id number] [place] [address] 12[address] Sep, [facility] [place] [facility] [address] [facility] [id number] [place] [address] 7418 Aug, [facility] [place] [facility] [address] [id number] [place] [address] 9416 Aug, [facility] [place] [facility] [address] [facility] [id number] [place] [address] 9536 Aug, [facility] [place] [facility] [address] [facility] [id number] [place] [address] 0123 Aug, [facility] [place] [facility] [address] [id number] [place] [address] 1736 Aug, [facility] [address] [id number] [place] [address] Aug, [facility] [address] [id number] [place] [address] 7796 Aug, [facility] [address] [id number] [place] [address] 0[address] Aug, [facility] [address] [id number] [place] [address] 3149 16 Aug, 2011 [facility] [address] [id number] [place] [address]- 2311 Aug, [facility] [address] [id number] [place] [address]- 0178 Aug, [facility] [address] [id number] [place] [address] 9812 Aug, [facility] [address] [id number] [place] [address] 7691 Aug, [facility] [address] [id number] [place] [address]- 1202 Aug, [facility] [address] [id number] [place] [address] 3050 Aug, [facility] [address] [id number] [place] [address] 1603 Aug, [facility] [address] [id number] [place] [address] 7427 Aug, [facility] [address] [id number] [place] [address] 8106 Jul, [facility] [address] [id number] [place] [address]- 6392 Jul, [facility] [address] [id number], [place] [address] Jul, [facility] [place] [id number], [place] [address] Jul, [facility] [place] [address] [facility] [id number] Jul, [facility] [place] [id number], [place] [address] Jul, [facility] [place] [id number] [address] Jul, [facility] [place] [id number], [place] [address]195 Jul, [facility] [place] [id number] [place] [address] Jul, [facility] [place] [id number] [address] Jul, [facility] [place] [id number], [place] [address] 9424 Jul, [facility] [place] [id number], [place] [address]018 Jun, [facility] [place] [id number], [place] [address] 8940 Jun, [facility] [place] [address] [id number] [address] Jun, IMMUNIZATIONS No Known Immunizations SOCIAL HISTORY Never Assessed REASON FOR VISIT Controlled Med Refill 06/12/2017 PLAN OF CARE VITAL SIGNS MEDICATIONS Medication [...]
--- OUTSIDE RECORDS SUMMARY | 2018-08-05 03:29 | XMS REPORT ---
Author Author HEATHER FINE [facility] eClinicalWorks Address Unknown Phone Unavailable Care Team Providers Care Cloth Bleaching Range Operator Chief Name Role Phone HEATHER FINE CP Unavailable [...] Date End Date Status Dosage Oxycodone HCl [facility] [address]-91 5 MG Orally Once a day Mar 29, 2015 1 tablet at bedtime Results No Known Results Summary Purpose eClinicalWorks Submission
--- OUTSIDE RECORDS SUMMARY | 2018-08-05 03:29 | XMS REPORT ---
Author Author HEATHER FINE Organization eClinicalWorks Address Unknown Phone Unavailable Care Team Providers Care Field Professional Name Role Phone HEATHER FINE CP Unavailable [...] Instructions Start Date End Date Status Dosage Aldactone [facility] [address]-06 50 MG Once a day Aug 25, 2014 Jul 21, 2015 1 Tablet by Oral route Results No Known Results Summary Purpose eClinicalWorks Submission
--- OUTSIDE RECORDS SUMMARY | 2018-08-05 03:30 | XMS REPORT ---
Author Author HEATHER FINE [facility] eClinicalWorks Address Unknown Phone Unavailable Care Team Providers Care Lvn Lpn Name Role Phone HEATHER FINE CP Unavailable [...] Date End Date Status Dosage Oxycodone HCl [facility] [address]-18 5 MG Orally Once a day at Mar 29, 2015 1 tablet Results No Known Results Summary Purpose eClinicalWorks Submission
--- OUTSIDE RECORDS SUMMARY | 2018-08-05 03:30 | XMS REPORT ---
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
--- OUTSIDE RECORDS SUMMARY | 2018-08-05 03:30 | XMS REPORT ---
Author Author HEATHER FINE Organization [facility] Address [address] [place] [address] Care Team Providers Care Mechanical Integrity Engineer Name Role Phone HEATHER FINE Unavailable PROBLEMS Type Condition ICD9-CM Code [id number] Code Onset Dates Condition Status SNOMED Code Problem Unspecified cirrhosis of liver K74.60 Active 430320438 Problem Lymphocytosis D72.820 Active 10175362 Problem Secondary esophageal varices with bleeding I85.11 Active 79969201 Problem Anxiety F41.9 Active 54037802 Problem Asthma J45.909 Active 891529229 Problem Chronic back pain M54.9 Active 809880173 Problem Dysthymia F34.1 Active 40663049 Problem Thrombocytosis D47.3 Active 7726923 Problem Splenomegaly R16.1 Active 41427904 Problem 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 Active 873218320 Problem History of hepatitis C Z86.19 Active [id number] ALLERGIES No Information ENCOUNTERS Encounter Location Date Diagnosis [place] [address], [place] [address] Feb, [facility] [address], [place] [address] December, Chronic back pain M54.9 and Anxiety F41.9 [facility] [id number] [place] [address] 01553- 0008 Nov, Chronic back pain M54.9 and Anxiety F41.9 [facility] [address] [id number] [place] [address] 19240- 9927 Oct, Chronic back pain M54.9 and Anxiety F41.9 [facility] [address], [place] [address] 47[address] Oct, [facility] [id number] [place] [address] 65340- 5723 Sep, Chronic back pain M54.9 ; Anxiety F41.9 ; Pain of left leg M79.605 and Pain in right leg M79.604 [facility] [id number] [place] [address] 97627- 3833 Sep, Anxiety F41.9 and Chronic back pain M54.9 [facility] [address] [address]- 2936 Sep, [facility] [address] [address]- 1878 Aug, Anxiety F41.9 [facility] [address] 89894- 0224 Jul, Anxiety F41.9 [place] [address] 7[address]- 9371 Jul, [facility] [address] [id number] [place] [address] 57068- 9695 Jul, Viral syndrome B34.9 ; Chronic back pain M54.9 and Dysuria R30.0 [place] [address] [place] [id number] [place] [address] 86196- 3886 Jun, [facility] [id number] [place] [address] 26717- 6282 Jun, Anxiety F41.9 [facility] [address] [address] 16 Jun, 2017 Dysuria R30.0 and Acute cystitis without hematuria N30.00 [facility] [address] 00916- 0299 Jun, [facility] [id number] [place] [address] 32895- 0804 May, Anxiety F41.9 [facility] [address] 75287- 3360 May, Anxiety F41.9 [facility] [address], [place] [address]- 5065 Apr, [facility] [id number] [place] [address] 69303- 1265 Apr, Chronic back pain M54.9 and Anxiety F41.9 [facility] [id number] [place] [address] 12106- 4308 Mar, [facility] [id number] [place] [address] 81649- 7717 Mar, [facility] [id number] [place] [address] 70908- 4528 Mar, Well woman exam Z01.419 ; Cervical cancer screening Z12.4 ; Breast cancer screening Z12.31 and Colon cancer screening Z12.11 [facility] [id number] [place] [address] 76815- 4163 Mar, Chronic back pain M54.9 and Anxiety F41.9 [facility] [id number] [place] [address] 53826- 8682 Mar, [facility] [id number] [place] [address] 30166- 4931 Feb, Chronic back pain M54.9 and Anxiety F41.9 [facility] [address], [place] [address]- 3354 Feb, [facility] [address], [place] [address]- 6286 Feb, [facility] [id number] [place] [address] 96551- 2912 Jan, Chronic back pain M54.9 and Anxiety F41.9 [facility] [address], [place] [address]- 6151 Jan, [facility] [id number], [place] [address]- 9979 Jan, [facility] [id number] [place] [address] 19764- 1385 December, Chronic back pain M54.9 and Anxiety F41.9 [facility] [id number] [place] [address] 25448- 6606 Nov, Chronic back pain M54.9 and Anxiety F41.9 [facility] [id number] [place] [address] 66876- 9856 Oct, Chronic back pain M54.9 and Anxiety F41.9 [facility] [id number] [place] [address] 60998- 1980 Oct, Chronic back pain M54.9 [facility] [id number] [place] [address] 10838- 6796 Sep, Anxiety F41.9 and Chronic back pain M54.9 [facility] [id number] [place] [address] 59206- 3872 Aug, Anxiety F41.9 and Chronic back pain M54.9 [facility] [id number] [place] [address] 80812- 4760 Aug, [facility] [id number] [place] [address] 43804- 4229 Jul, Chronic back pain M54.9 and Anxiety F41.9 [facility] [address], [place] [address]- 8445 Jul, Anxiety F41.9 and Chronic back pain M54.9 [facility] [place] [address] [facility] [id number] [place] [id number] Jul, [facility] [address], [place] [address]- 6690 Jul, Anxiety F41.9 [facility] [id number] [place] [address] 96524- 9602 Jul, Anxiety F41.9 and Dysuria R30.0 [facility] [id number] [place] [address] 33277- 9465 Jul, Chronic back pain M54.9 and Anxiety F41.9 [facility] [address] [place] [id number] [place] [address] 87252- 6256 Jun, Chronic back pain M54.9 [facility] [id number] [place] [address] 68355 2546 Jun, Chronic back pain M54.9 [facility] [id number] [place] [address] 01632- 6596 May, Anxiety F41.9 [facility] [id number] [place] [address] 37514- 1176 May, Chronic back pain M54.9 [facility] [id number] [place] [address] 63408- 0916 Apr, [facility] [id number] [place] [address] 72453 2541 Apr, [facility] [address] [id number] [place] [address] 39442 2546 Apr, [facility] [id number] [place] [address] 11398 2549 Apr, Chronic back pain M54.9 [facility] [id number] [place] [address] 48739 2546 Mar, Chronic back pain M54.9 [facility] [id number] [place] [address] 43032 2546 Feb, Grief F43.20 [facility] [address] [id number] [place] [address] 33713- 6616 Feb, Chronic back pain M54.9 and Anxiety F41.9 [facility] [address] [id number] [place] [address] 95794- 5537 Feb, Chronic back pain M54.9 [facility] [id number] [place] [address] 63392- 1932 Jan, Chronic back pain M54.9 [facility] [address] [id number] [place] [address] 61919- 4156 December, [facility] [address] [id number] [place] [address] 30841- 6896 December, Grief F43.20 [facility] [address] [id number] [place] [address] 66544- 2474 Nov, [facility] [address] [id number] [place] [address] 29780- 4379 Oct, Cervicalgia M54.2 ; Secondary esophageal varices with bleeding I85.11 and Mouth pain K13.79 [facility] [address] [place] [id number] [place] [address] 37605- 1771 Oct, [facility] [id number] [place] [address] 14298- 8201 Oct, [facility] [id number] [place] [address] 34795- 8251 Sep, [facility] [id number] [place] [address] 61764- 0988 Sep, Acute maxillary sinusitis, recurrence not specified J01.00 [facility] [address] [id number] [place] [address] 03217- 3706 Aug, [facility] [id number] [place] [address] 98936- 1259 Aug, [facility] [id number] [place] [address] 93295- 6828 Aug, Dysuria R30.0 and Chronic back pain M54.9 [facility] [address], [place] [address]- 1803 Jul, [facility] [id number] [address]- 0340 Jul, [facility] [id number] [place] [address] 97047- 1359 Jul, [facility] [address] [id number] [place] [address] 031358- 1364 Jul, Chronic back pain M54.9 [facility] [address] [id number] [place] [address] 35022- 4420 Jul, Dysthymia F34.1 and Chronic back pain M54.9 [facility] [address] [id number] [place] [address] 73772- 8208 Jun, [facility] [id number] [place] [address] 73343- 2780 Jun, [facility] [id number] [place] [address] 48655- 2680 May, [facility] [id number] [place] [address] 88982- 2354 May, [facility] [id number] [place] [address] 21696- 7938 May, [facility] [id number] [place] [address] 98176- 7947 May, Encounter for immunization Z23 [facility] [id number] [place] [address] 91635- 4659 15 Apr, 2015 [facility] [id number] [place] [address] 92024- 2544 Apr, [facility] [id number] [place] [address] 14899- 2935 Mar, [facility] [id number] [place] [address] 71559- 3935 Mar, Back pain 724.5 [facility] [address] [id number] [place] [address] 27461- 7363 Mar, Cough 786.2 and Back pain 724.5 [facility] [address] [place] [address]- 0722 Mar, [facility] [address] [facility] [id number], [place] [address]- 0788 Mar, [facility] [address] [place] [address]- 7869 December, [facility] [address] [facility] [id number], [place] [address]- 4721 December, [facility] [address] [facility] [id number] [place] [address]- 9810 Nov, [facility] [id number] [address]- 0443 Nov, [facility] [address], [place] [address]- 2666 Oct, [facility] [place] [facility] [address], [place] [address]- 7655 Oct, [facility] [address], [place] [address]- 5414 Sep, [facility] [address], [place] [address]- 3149 Sep, [facility] [address], [place] [address]- 6577 Sep, [facility] [place] [facility] [id number] [address]- 3801 Sep, [facility] [place] [facility] [address], [place] [address]- 9171 Sep, [facility] [place] [facility] [address], [place] [address]- 6678 Sep, [facility] [place] [facility] [address] 3924 Sep, [facility] [place] [facility] [address] [id number] [place] [address]- 3697 Sep, [facility] [place] [facility] [address] [id number] [place] [address]- 8879 Aug, [facility] [place] [facility] [address] [id number] [place] [address]- 3456 Aug, [facility] [place] [facility] [address] [id number] [place] [address]- 2570 Aug, [facility] [place] [facility] [address] [id number] [place] [address]- 2918 Aug, [facility] [place] [facility] [address] [id number] [place] [address]- 8680 Aug, [facility] [place] [facility] [address] [id number] [place] [address]- 9440 Aug, [facility] [place] [facility] [address] [id number] [place] [address]- 6921 Aug, [facility] [place] [facility] [address] [id number] [place] [address]- 6175 Jul, [facility] [place] [facility] [address] [id number] [place] [address]- 6517 Jul, [facility] [place] [facility] [address] [id number] [place] [address]- 9118 Jul, [facility] [place] [facility] [address] [id number] [place] [address]- 9162 Jul, [facility] [place] [facility] [address] [id number] [place] [address]- 1282 Jul, [facility] [place] [facility] [address] [id number] [place] [address]- 7852 Jul, [facility] [place] [facility] [address] [id number] [place] [address]- 5567 05 Jul, 2014 [facility] [place] [facility] [address] [id number], [place] [address]- 5237 Jul, [facility] [place] [facility] [address] [id number] [place] [address]- 8299 Jun, [facility] [place] [facility] [address] [id number] [place] [address]- 1632 Jun, [facility] [place] [facility] [address] [id number] [place] [address]- 1702 Jun, [facility] [place] [facility] [address] [id number] [place] [address]- 2011 Jun, [facility] [place] [facility] [address] [id number] [place] [address]- 2043 Jun, [facility] [place] [facility] [address] [id number] [place] [address]- 4890 Jun, [facility] [place] [facility] [address] [id number] [place] [address]- 3455 Jun, [facility] [place] [facility] [address] [id number] [place] [address]- 6456 May, [facility] [place] [facility] [address] [id number] [place] [address]- 7728 May, [facility] [place] [facility] [address] [id number] [place] [address]- 8971 May, [facility] [place] [facility] [address] [id number], [place] [address]- 5558 May, [facility] [place] [facility] [address] [id number], [place] [address]- 5624 2014 [facility] [place] [facility] [address] [id number] [place] [address]- 7572 May, [facility] [place] [facility] [address] [id number] [place] [address]- 7586 2014 [facility] [place] [facility] [address] [id number] [place] [address]- 7614 May, [facility] [place] [facility] [address] [id number] [place] [address]- 4888 13 May, 2014 [facility] [place] [facility] [address] [id number] [place] [address]- 1720 May, [facility] [place] [facility] [address] [id number] [place] [address]- 7913 May, [facility] [place] [facility] [address] [id number] [place] [address]- 9832 May, [facility] [place] [facility] [address] [id number] [place] [address]- 4271 May, [facility] [place] [facility] [address] [id number] [place] [address]- 8631 May, [facility] [place] [facility] [address] [id number] [place] [address]- 8947 26 Apr, 2014 [facility] [place] [facility] [address] [id number] [place] [address]- 5471 Apr, [facility] [place] [facility] [address] [id number] [place] [address]- 0490 Apr, [facility] [place] [facility] [address] [id number] [place] [address]- 7713 Apr, [facility] [place] [facility] [address] [id number] [place] [address]- 1701 23 Apr, 2014 [facility] [place] [facility] [address] [id number] [place] [address]- 1880 10 Apr, 2014 [facility] [place] [facility] [address] [id number] [place] [address]- 1911 10 Apr, 2014 [facility] [place] [facility] [address] [id number] [place] [address]- 6710 15 Mar, 2014 [facility] [place] [facility] [address] [id number] [place] [address]- 0105 15 Mar, 2014 [facility] [place] [facility] [address] [id number] [place] [address]- 9063 Mar, [facility] [place] [facility] [address] [id number] [place] [address]- 4816 Mar, [facility] [place] [facility] [address] [id number] [place] [address]- 3109 Mar, [facility] [place] [facility] [address] [id number] [place] [address]- 3147 Mar, [facility] [place] [facility] [address] [id number] [place] [address]- 6374 Feb, [facility] [place] [facility] [address] [id number] [place] [address]- 3264 Feb, [facility] [place] [facility] [address] [id number] [place] [address]- 1166 Feb, [facility] [place] [facility] [address] [id number] [place] [address]- 1149 Feb, [facility] [place] [facility] [address] [id number] [place] [address]- 0162 Feb, [facility] [place] [facility] [address] [id number] [place] [address]- 0780 Feb, [facility] [place] [facility] [address] [id number] [place] [address]- 3852 Feb, [facility] [place] [facility] [address] [id number] [place] [address]- 2898 Feb, [facility] [place] [facility] [address] [id number] [place] [address]- 2358 Jan, [facility] [place] [facility] [address] [id number] [place] [address]- 6645 Jan, [facility] [place] [facility] [address] [id number] [place] [address]- 6764 December, [facility] [place] [facility] [address] [id number] [place] [address]- 6143 December, [facility] [place] [facility] [address] [id number] [place] [address]- 0798 December, [facility] [place] [facility] [address] [id number] [place] 8189 December, [facility] [place] [facility] [address] [id number] [place] [address]- 6474 December, [facility] [place] [facility] [address] [id number] [place] [address] December, [facility] [place] [facility] [address] [id number] [place] [address] December, [facility] [place] [facility] [address] [id number] [place] [address] December, [facility] [place] [facility] [address] [id number] [place] [address] December, [facility] [place] [facility] [address] [id number] [place] [address] December, [facility] [place] [facility] [address] [id number] [place] [address] December, [facility] [place] [facility] [address] [id number] [place] [address] December, [facility] [place] [facility] [address] [id number] [place] [address] Nov, [facility] [place] [facility] [address] [id number] [place] [address] Nov, [facility] [place] [facility] [address] [id number] [place] [address] Nov, [facility] [place] [facility] [address] [id number] [place] [address] Nov, [facility] [place] [facility] [address] [id number] [place] [address] Nov, [facility] [place] [facility] [address] [id number] [place] [address] Nov, [facility] [place] [facility] [address] [id number] [place] [address]137 Nov, [facility] [place] [facility] [address] [id number] [place] [address] 3963 Nov, [facility] [place] [facility] [address] [id number] [place] [address] Nov, [facility] [place] [facility] [address] [id number] [place] [address] Nov, [facility] [place] [facility] [address] [id number] [place] [address] Nov, [facility] [place] [facility] [address] [id number] [place] [address] Nov, [facility] [place] [facility] [address] [facility] [id number] [place] [address] Nov, [facility] [place] [facility] [address] [id number] [place] [address] 9[address] Oct, [facility] [place] [facility] [address] [id number] [place] [address] Oct, [facility] [place] [facility] [address] [id number] [place] [address] Sep, [facility] [place] [facility] [address] [facility] [id number] [place] [address] Sep, [facility] [place] [facility] [address] [id number] [place] [address] Sep, [facility] [place] [facility] [address] [id number] [place] [address] Sep, [facility] [place] [facility] [address] [id number] [place] [address] 94[address] Sep, [facility] [place] [facility] [address] [id number] [place] [address] Sep, [facility] [place] [facility] [address] [id number], [place] [address] Sep, [facility] [place] [facility] [address] [id number] [place] [address] 18 Sep, 2013 [facility] [place] [facility] [address] [id number] [place] [address] Sep, [facility] [place] [facility] [address] [id number] [place] [address] 47[address] Sep, [facility] [place] [facility] [address] [id number] [place] [address]763 Sep, [facility] [place] [facility] [address] [id number] [place] [address] Sep, [facility] [place] [facility] [address] [id number] [place] [address] Aug, [facility] [place] [facility] [address] [id number] [place] [address] 7936 Aug, [facility] [place] [facility] [address] [id number] [place] [address] Aug, [facility] [place] [facility] [address] [id number] [place] [address] Aug, [facility] [place] [facility] [address] [id number] [place] [address] Aug, [facility] [place] [facility] [address] [id number] [place] [address]- [address] Aug, [facility] [place] [facility] [address] [id number] [place] [address]- 1694 Aug, [facility] [place] [facility] [address] [id number] [place] [address]- [address] Aug, [facility] [place] [facility] [address] [id number] [place] [address]- [address]58 Aug, [facility] [place] [facility] [address] [id number] [place] [address]- 9315 Aug, [facility] [place] [facility] [address] [id number] [place] [address] 2006 Aug, [facility] [place] [facility] [address] [id number] [place] [address]- 1624 Aug, [facility] [place] [facility] [address] [id number] [place] [address]- [address] Aug, [facility] [place] [facility] [address] [id number] [place] [address]- [address] Aug, [facility] [place] [facility] [address] [id number] [place] [address]- 6535 Aug, [facility] [place] [facility] [address] [id number] [place] [address]- 8890 Aug, [facility] [place] [facility] [address] [id number] [place] [address]- [address] Aug, [facility] [place] [facility] [address] [id number] [place] [address]- 6[address] Aug, [facility] [place] [facility] [address] [id number] [place] [address] 9862 Aug, [facility] [place] [facility] [address] [id number] [place] [address]- 132[address] Aug, [facility] [place] [facility] [address] [id number] [place] [address]- [address]58 Aug, [facility] [place] [facility] [address] [id number], [place] [address] Aug, [facility] [place] [facility] [address] [id number] [place] [address] Aug, [facility] [place] [facility] [address] [id number] [place] [address] 7[address] Jul, [facility] [place] [facility] [address] [id number] [place] [address] 6[address] Jul, [facility] [place] [facility] [address] [id number], [place] [address] Jul, [facility] [place] [facility] [address] [id number] [place] [address] 4359 Jul, [facility] [place] [facility] [address] [id number], [place] [address] 7959 Jul, [facility] [place] [facility] [address] [id number] [place] [address] 8223 Jul, [facility] [place] [facility] [address] [id number], [place] [address] Jun, [facility] [place] [facility] [address] [id number] [place] [address]- 4123 Jun, [facility] [place] [facility] [address] [id number] [place] [address]- 5354 Jun, [facility] [place] [facility] [address] [id number], [place] [address] 4766 Jun, [facility] [place] [facility] [address] [id number] [place] [address] 1968 Jun, [facility] [place] [facility] [address] [id number], [place] [address] 8084 Jun, [facility] [place] [facility] [address] [id number], [place] [address] Jun, [facility] [place] [facility] [address] [id number], [place] [address] 3[address] Jun, [facility] [place] [facility] [address] [id number], [place] [address]- 8360 Jun, [facility] [place] [facility] [address] [id number], [place] [address] 2006 Jun, [facility] [place] [facility] [address] [id number], [place] [address] 7478 May, [facility] [place] [facility] [address] [id number] [place] [address]- 8596 May, [facility] [place] [facility] [address] [id number] [place] [address]- 9231 30 May, 2012 [facility] [place] [facility] [address] [id number] [place] [address]- 7183 30 May, 2012 [facility] [place] [facility] [address] [id number] [place] [address]- 8836 26 May, 2012 [facility] [place] [facility] [address] [id number] [place] [address]- 9242 24 May, 2012 [facility] [place] [facility] [address] [id number] [place] [address]- 8974 24 May, 2012 [facility] [place] [facility] [address] [id number] [place] [address]- 4078 22 May, 2012 [facility] [place] [facility] [address] [id number] [place] [address]- 5897 May, 2012 [facility] [place] [facility] [address] [id number] [place] [address]- 2183 21 May, 2012 [facility] [place] [facility] [address] [id number] [place] [address]- 1571 17 May, 2012 [facility] [place] [facility] [address] [id number] [place] [address]- 9821 16 May, 2012 [facility] [place] [facility] [address] [id number] [place] [address]- 2281 16 May, 2012 [facility] [place] [facility] [address] [id number] [place] [address]- 9753 16 May, 2012 [facility] [place] [facility] [address] [id number] [place] [address]- 3879 16 May, 2012 [facility] [place] [facility] [address] [id number] [place] [address] 24 Apr, 2012 [facility] [place] [facility] [address] [id number] [place] [address] 23 Apr, 2012 [facility] [place] [facility] [address] [id number] [place] [address]- 9931 Apr, [facility] [address] [id number] [place] [address] 6670 Mar, [facility] [place] [facility] [address] [id number] [place] [address]- 9005 Mar, [facility] [place] [facility] [address] [id number] [place] [address]- 3118 Mar, [facility] [place] [facility] [address] [id number] [place] [address]- 9528 Mar, [facility] [place] [facility] [address] [id number] [place] [address]- 9248 Mar, [facility] [place] [facility] [address] [id number] [place] [address]- 2068 Mar, [facility] [place] [facility] [address] [id number] [place] [address]- 8104 Feb, [facility] [place] [facility] [address] [id number] [place] [address]- 2167 Feb, [facility] [place] [facility] [address] [id number] [place] [address]- 6387 Feb, [facility] [place] [facility] [address] [id number] [place] [address]- 2417 Feb, [facility] [place] [facility] [address] [id number] [place] [address]- 8985 Feb, [facility] [place] [facility] [address] [id number] [place] [address]- 9145 Feb, [facility] [place] [facility] [address] [id number] [place] [address]- 3291 Feb, [facility] [place] [facility] [address] [id number] [place] [address]- 3380 Feb, [facility] [place] [facility] [address] [id number] [place] [address]- 6496 Feb, [facility] [place] [facility] [address] [id number] [place] [address]- 2916 Feb, [facility] [address] [id number] [place] [address]- 7098 Jan, [facility] [place] [facility] [address] [id number] [place] [address]- 7208 Jan, [facility] [address] [id number] [place] [address]- 9287 Jan, [facility] [place] [facility] [address] [id number] [place] [address]- 7380 Jan, [facility] [address] [id number] [place] [address]- 6130 December, [facility] [address] [id number] [place] [address]- 7672 December, [facility] [address] [id number] [place] [address]- 1326 December, [facility] [address] [id number] [place] [address]- 0079 Nov, [facility] [address] [id number] [place] [address]- 6389 Nov, [facility] [address] [id number] [place] [address]- 0621 Nov, [facility] [place] [facility] [address] [id number] [place] [address]- 1219 Nov, [facility] [place] [facility] [address] [id number] [place] [address]- 5439 Nov, [facility] [place] [facility] [address] [id number] [place] Nov, [facility] [place] [facility] [address] [id number] [place] [address] Oct, [facility] [place] [facility] [address] [id number] [place] [address]- 1072 Oct, [facility] [place] [facility] [address] [id number] [place] [address]- 0399 Oct, [facility] [address] [id number] [place] [address]- 5783 Sep, [facility] [place] [facility] [address] [id number] [place] [address]- 2546 Sep, [facility] [place] [facility] [address] [id number] [place] [address]- 4976 Sep, [facility] [address] [id number] [place] [address]- 7510 Aug, [facility] [place] [facility] [address] [id number] [place] [address]- 1239 Aug, [facility] [address] [id number] [place] [address]- 4785 Aug, [facility] [address] [id number] [place] [address]- 8883 Aug, [facility] [address] [id number] [place] [address]- 6517 Jul, [facility] [address] [id number] [place] [address]- 0355 Jul, [facility] [place] [facility] [address] [id number] [place] [address]- 3241 Jul, [facility] [place] [facility] [address] [id number] [place] [address]- 9530 Jul, [facility] [place] [facility] [address] [id number] [place] [address]- 6080 Jun, [facility] [place] [facility] [address] [id number] [place] [address]- 6710 Jun, [facility] [place] [facility] [address] [id number] [place] [address]- 0675 Jun, [facility] [place] [facility] [address] [id number], [place] [address]- 3388 Jun, [facility] [place] [facility] [address] [id number] [place] [address]- 1248 Jun, [facility] [place] [facility] [address] [id number], [place] [address]- 8959 Jun, [facility] [place] [facility] [address] [id number] [place] [address]- 6820 Jun, [facility] [place] [facility] [address] [id number] [place] [address]- 0112 Jun, [facility] [place] [facility] [address] [id number] [place] [address]- 5731 May, [facility] [place] [facility] [address] [id number] [place] [address]- 4576 30 May, 2012 [facility] [place] [facility] [address] [id number] [place] [address]- 6398 May, [facility] [place] [facility] [address] [id number], [place] [address]- 4859 18 May, 2012 [facility] [place] [facility] [address] [id number], [place] [address]- 8375 2012 [facility] [place] [facility] [address] [id number], [place] [address]- 3254 13 May, 2012 [facility] [place] [facility] [address] [id number], [place] [address]- 9950 11 May, 2012 [facility] [place] [facility] [address] [id number], [place] [address]- 6657 11 May, 2012 [facility] [place] [facility] [address] [id number], [place] [address]- 3100 10 May, 2012 [facility] [place] [facility] [address] [facility] [id number], [place] [address]- 5053 08 May, 2012 [facility] [place] [facility] [address] [id number] [place] [address]- 8843 24 Apr, 2012 [facility] [place] [facility] [address] [id number] [place] [address]- 7357 19 Apr, 2011 [facility] [place] [facility] [address] [id number] [place] [address]- 5386 18 Apr, 2012 [facility] [place] [facility] [address] [id number] [place] [address]- 2546 17 Apr, 2012 [facility] [address] [id number] [place] [address]- 6946 16 Apr, 2012 [facility] [place] [facility] [address] [id number] [place] [address]- 4909 10 Apr, 2012 [facility] [address] [id number] [place] [address]- 5603 29 Mar, 2012 [facility] [place] [facility] [address] [id number] [place] [address]- 6207 27 Mar, 2012 [facility] [address] [id number] [place] [address]- 8695 23 Mar, 2012 [facility] [address] [id number] [place] [address]- 8339 Mar, [facility] [place] [facility] [address] [id number] [place] [address]- 7474 Mar, [facility] [address] [id number] [place] [address]- 2786 Mar, [facility] [place] [facility] [address] [id number] [place] [address]- 4204 27 Feb, 2012 [facility] [place] [facility] [address] [id number] [place] [address]- 4272 Feb, [facility] [place] [facility] [address] [id number] [place] [address]- 5161 18 Feb, 2012 [facility] [place] [facility] [address] [id number] [place] [address]- 2896 17 Feb, 2012 [facility] [place] [facility] [address] [id number] [place] [address]- 1756 Feb, [facility] [place] [facility] [address] [id number] [place] [address]- 5839 Feb, [facility] [place] [facility] [address] [id number] [place] [address]- 3625 Feb, [facility] [place] [facility] [address] [id number] [place] [address]- 1084 Feb, [facility] [place] [facility] [address] [id number] [place] [address]- 3623 Feb, [facility] [place] [facility] [address] [id number] [place] [address]- 7368 Jan, [facility] [place] [facility] [address] [id number] [place] [address]- 3187 Jan, [facility] [place] [facility] [address] [id number] [place] [address]- 0696 Jan, [facility] [place] [facility] [address] [id number] [place] [address]- 0983 Jan, [facility] [place] [facility] [address] [id number] [place] [address]- 0031 Jan, [facility] [place] [facility] [address] [id number] [place] [address]- 6275 Jan, [facility] [place] [facility] [address] [id number] [place] [address]- 4472 Jan, [facility] [place] [facility] [address] [id number] [place] [address]- 3620 Jan, [facility] [place] [facility] [address] [id number] [place] [address]- 4884 Jan, [facility] [place] [facility] [address] [id number] [place] [address]- 5925 December, [facility] [place] [facility] [address] [id number] [place] [address]- 9437 December, [facility] [place] [facility] [address] [id number] [place] [address]- 4092 December, [facility] [address] [id number] [place] [address]- 5804 December, [facility] [address] [id number] [place] [address]- 0416 December, [facility] [address] [id number] [place] [address]- 4092 December, [facility] [address] [id number] [place] [address]- 0109 December, [facility] [address] [id number] [place] [address]- 2342 December, [facility] [address] [id number] [place] [address]- 5141 December, [facility] [address] [id number] [place] [address]- 9577 December, [facility] [address] [id number] [place] [address]- 5025 30 Nov, 2011 [facility] [address] [id number] [place] [address]- 0156 Nov, [facility] [address] [id number] [place] [address]- 5493 Nov, [facility] [address] [id number] [place] [address]- 5143 Nov, [facility] [place] [facility] [address] [id number] [place] [address]- 7061 16 Nov, 2011 [facility] [place] [facility] [address] [id number] [place] [address]- 3737 Nov, [facility] [place] [facility] [address] [id number] [place] [address]- 7115 Nov, [facility] [address] [id number] [place] [address]- 7576 Nov, [facility] [place] [facility] [address] [id number] [place] [address]- 6093 05 Nov, 2011 [facility] [place] [facility] [address] [id number] [place] [address]- 1926 03 Nov, 2011 [facility] [place] [facility] [address] [id number] [place] [address]- 8796 30 Oct, 2011 [facility] [place] [facility] [address] [id number] [place] [address]- 7356 29 Oct, 2011 [facility] [place] [facility] [address] [id number] [place] [address]- 6544 23 Oct, 2011 [facility] [place] [facility] [address] [id number] [place] [address]- 5256 23 Oct, 2011 [facility] [place] [facility] [address] [id number] [place] [address]- 6714 21 Oct, 2011 [facility] [place] [facility] [address] [id number] [place] [address]- 3099 20 Oct, 2011 [facility] [place] [facility] [address] [id number] [place] [address]- 5369 19 Oct, 2011 [facility] [place] [facility] [address] [id number] [place] [address]- 6279 19 Oct, 2011 [facility] [place] [facility] [address] [id number] [place] [address]- 3625 16 Oct, 2011 [facility] [place] [facility] [address] [id number] [place] [address]- 3349 14 Oct, 2011 [facility] [place] [facility] [address] [id number] [place] [address]- 6398 14 Oct, 2011 [facility] [place] [facility] [address] [id number] [place] [address]- 3456 09 Oct, 2011 [facility] [place] [facility] [address] [id number] [place] [address]- 6116 08 Oct, 2011 [facility] [place] [facility] [address] [id number] [place] [address]- 3999 Oct, [facility] [place] [facility] [address] [id number] [place] [address]- 4876 Oct, [facility] [place] [facility] [address] [id number] [place] [address]- 9476 28 Sep, 2011 [facility] [place] [facility] [address] [facility] [id number] [place] [address]- 8726 24 Sep, 2011 [facility] [place] [facility] [address] [id number] [place] [address]- 3321 20 Sep, 2011 [facility] [place] [facility] [address] [id number] [place] [address]- 8676 17 Sep, 2011 [facility] [place] [facility] [address] [facility] [id number] [place] [address]- 7426 16 Sep, 2011 [facility] [place] [facility] [address] [id number] [place] [address]- 7476 14 Sep, 2011 [facility] [place] [facility] [address] [facility] [id number] [place] [address]- 2766 13 Sep, 2011 [facility] [place] [facility] [address] [id number] [place] [address]- 6036 10 Sep, 2011 [facility] [place] [facility] [address] [facility] [id number] [place] [address]- 1568 06 Sep, 2011 [facility] [place] [facility] [address] [id number] [place] [address]- 6786 03 Sep, 2011 [facility] [place] [facility] [address] [facility] [id number] [place] [address] 2547 Sep, [facility] [place] [facility] [address] [id number] [place] [address]- 7878 Aug, [facility] [place] [facility] [address] [facility] [id number] [place] [address] 4946 Aug, [facility] [place] [facility] [address] [facility] [id number] [place] [address] Aug, [facility] [place] [facility] [address] [id number] [place] [address] Aug, [facility] [address] [id number] [place] [address] Aug, [facility] [address] [id number] [place] [address] Aug, [facility] [address] [id number] [place] [address] Aug, [facility] [address] [id number] [place] [address] 17 Aug, 2011 [facility] [address] [id number] [place] [address] Aug, [facility] [address] [id number] [place] [address] Aug, [facility] [address] [id number] [place] [address] Aug, [facility] [address] [id number] [place] [address] Aug, [facility] [address] [id number] [place] [address] Aug, [facility] [address] [id number] [place] [address] Aug, [facility] [address] [id number] [place] [address] Aug, [facility] [address] [id number] [place] [address] Aug, [facility] [address] [id number] [place] [address] Aug, [facility] [address] [id number] [place] [address] Jul, [facility] [address] [id number] [place] [address] Jul, [facility] [id number] [place] [address] Jul, [facility] [id number] [address] Jul, [facility] [id number], [place] [address] Jul, [facility] [id number] [address] [address] Jul, [facility] [id number], [place] [address] Jul, [facility] [id number] [place] [address] Jul, [facility] [id number], [place] [address] Jul, [facility] [id number], [place] [address] Jul, [facility] [id number] [place] [address] Jul, [facility] [id number], [place] [address] Jun, [facility] [id number], [place] [address] Jun, [facility] [id number], [place] [address] Jun, IMMUNIZATIONS No Known Immunizations SOCIAL HISTORY Never Assessed REASON FOR VISIT Medication question PLAN OF CARE VITAL SIGNS MEDICATIONS Medication Instructions Dosage Frequency Start Date End Date Duration Status Omeprazole 20 mg Orally Once a day 1 capsule 24h Jul, 30 day(s ) Active RESULTS No Results PROCEDURES No Known [...]
--- OUTSIDE RECORDS SUMMARY | 2018-08-05 03:30 | XMS REPORT ---
Author Author HEATHER FINE [facility] eClinicalWorks Address Unknown Phone Unavailable Care Team Providers Care Floor Coverings Installer Name Role Phone HEATHER FINE CP Unavailable [...] Date End Date Status Dosage Oxycodone HCl [facility] [address]-09 5 MG Orally Once a day at Mar 29, 2015 1 tablet Results No Known Results Summary Purpose eClinicalWorks Submission
--- OUTSIDE RECORDS SUMMARY | 2018-08-05 03:31 | XMS REPORT ---
Author Author HEATHER FINE Organization [facility], [place] Address [address] [place] [address] Care Team Providers Care Milking Worker Name Role Phone HEATHER FINE Unavailable PROBLEMS Type Condition ICD9-CM Code NIH80-HS Code Onset Dates Condition Status SNOMED Code Problem Unspecified cirrhosis of liver K74.60 Active 327966230 Problem Lymphocytosis D72.820 Active 28281868 Problem Secondary esophageal varices with bleeding I85.11 Active 23963573 Problem Anxiety F41.9 Active 66225465 Problem Asthma J45.909 Active 249393997 Problem Chronic back pain M54.9 Active 164473450 Problem Dysthymia F34.1 Active 65272850 Problem Thrombocytosis D47.3 Active 9269490 Problem Splenomegaly R16.1 Active 90494941 Problem 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 Active 586499110 Problem History of hepatitis C Z86.19 Active [id number] ALLERGIES No Information ENCOUNTERS Encounter Location Date Diagnosis [place] [id number] [place] [address] 33083- 9846 Oct, Chronic back pain M54.9 and Anxiety F41.9 [place] [address] [place] [id number] [place] [address] 05895- 5044 Oct, [place] [address] [place] [id number] [place] [address] 89134- 1069 Sep, Chronic back pain M54.9 ; Anxiety F41.9 ; Pain of left leg M79.605 and Pain in right leg M79.604 [place] [address] [place] [id number] [place] [address] 27891- 1276 Sep, Anxiety F41.9 and Chronic back pain M54.9 [place] [address] 35121- 0427 Sep, [facility], [place] [address] [place] [id number] [place] [address] 27480- 0826 Aug, Anxiety F41.9 [facility], [place] [address] [place] [address] [id number] [place] [address] 59712- 9735 Jul, Anxiety F41.9 [facility], [place] [address] 40550- 1802 Jul, [facility], [place] [address] 34410- 9740 Jul, Viral syndrome B34.9 ; Chronic back pain M54.9 and Dysuria R30.0 [facility], [place] [address] [place] [id number] [place] [address] 47082- 6157 Jun, [facility], [place] [address] [place] [address] [id number] [place] [address] 54546- 7748 Jun, Anxiety F41.9 [facility] [address] [place] [address] [id number] [place] [address] 02324 -2562 Jun, Dysuria R30.0 and Acute cystitis without hematuria N30.00 [facility], [place] [address] [place] [id number] [place] [address] 42274- 3280 Jun, [facility] [place] [address] [place] [address] [id number] [place] [address] 14721- 3622 May, Anxiety F41.9 [facility], [place] [address] [place] [id number] [place] [address] 83514- 9123 May, Anxiety F41.9 [facility], [place] [address] [place] [id number] [place] [address] 33070- 0694 Apr, [facility], [place] [address] [place] [id number] [place] [address] 75616- 4823 Apr, Chronic back pain M54.9 and Anxiety F41.9 [facility], [place] [address] [place] [id number] [place] [address] 64609- 0771 Mar, [facility], [place] [address], [place] [address]- 6606 Mar, [facility], [place] [address], [place] [address] 9177 Mar, Well woman exam Z01.419 ; Cervical cancer screening Z12.4 ; Breast cancer screening Z12.31 and Colon cancer screening Z12.11 [facility], [place] [id number] [place] [address] 51383- 2257 Mar, Chronic back pain M54.9 and Anxiety F41.9 [facility], [place] [address] [place] [id number] [place] [address] 47319- 7487 Mar, [facility] [place] [address] [place] [id number] [place] [address] 58580- 4936 Feb, Chronic back pain M54.9 and Anxiety F41.9 [facility], [place] [address] [place] [id number] [place] [address] 40469- 8491 Feb, [facility], [place] [id number] [place] [address] 67872- 9316 Feb, [facility] [place] [address] [place] [id number] [place] [address] 15405- 5332 Jan, Chronic back pain M54.9 and Anxiety F41.9 [facility], [place] [address], [place] [address]- 1263 Jan, [facility] [place] [address], [place] [address]- 2300 Jan, [facility], [place] [address] [place] [id number] [address]- 6039 December, Chronic back pain M54.9 and Anxiety F41.9 [facility], [place] [address] [place] [id number], [place] [address]- 1333 Nov, Chronic back pain M54.9 and Anxiety F41.9 [facility], [place] [address] [place] [id number] [address]- 1712 Oct, Chronic back pain M54.9 and Anxiety F41.9 [facility] [place] [address] [place] [id number] [place] [address] 39808- 8146 Oct, Chronic back pain M54.9 [facility] [place] [id number] [place] [address] 41782- 7876 Sep, Anxiety F41.9 and Chronic back pain M54.9 [facility] [place] [address] [place] [id number] [place] [address] 17489- 7461 Aug, Anxiety F41.9 and Chronic back pain M54.9 [facility], [place] [address] [place] [id number] [place] [address] 83443- 7346 Aug, [facility] [place] [address] [place] [id number] [place] [address] 50237- 1536 Jul, Chronic back pain M54.9 and Anxiety F41.9 [facility] [place] [address] [place] [id number] [place] [address] 95556- 6484 Jul, Anxiety F41.9 and Chronic back pain M54.9 [facility] [id number] [id number] Jul, [facility], [place] [id number] [place] [address] 05604- 9905 Jul, Anxiety F41.9 [facility], [place] [id number] [place] [address] 01396- 9678 Jul, Anxiety F41.9 and Dysuria R30.0 [facility], [place] [id number] [place] [address] 99249- 5856 Jul, Chronic back pain M54.9 and Anxiety F41.9 [facility], [place] [id number] [place] [address] 22862- 8308 Jun, Chronic back pain M54.9 [facility], [place] [address] [place] [id number] [place] [address] 21945- 2952 Jun, Chronic back pain M54.9 [facility], [place] [address] [facility] [id number] [address]- 9595 May, Anxiety F41.9 [facility], [place] [address] [facility] [id number], [place] [address]- 5246 May, Chronic back pain M54.9 [facility], [place] [address] [facility] [id number] [place] [address] 35951- 9416 Apr, [facility], [place] [address] [facility] [id number], [place] [address] 2546 Apr, [facility], [place] [address] [facility] [id number] [place] [address] 13485- 7924 Apr, [facility], [place] [address] [facility] [id number] [place] [address] 58206- 7720 Apr, Chronic back pain M54.9 [facility], [place] [address] [facility] [id number] [place] [address] 46270- 2179 Mar, Chronic back pain M54.9 [facility], [place] [address] [facility] [id number] [place] [address] 39952- 9279 Feb, Grief F43.20 [facility], [place] [address] [facility] [id number], [place] [address]- 6372 Feb, Chronic back pain M54.9 and Anxiety F41.9 [facility], [place] [address] [facility] [id number], [place] [address]- 6221 Feb, Chronic back pain M54.9 [facility], [place] [address] [facility] [id number], [place] [address]- 0360 Jan, Chronic back pain M54.9 [facility], [place] [address] [facility] [id number], [place] [address]- 6586 December, [facility], [place] [address] [facility] [id number], [place] [address]- 3686 December, Grief F43.20 [facility], [place] [address], [place] [address]- 0003 Nov, [facility], [place] [address] [place] [id number] [place] [address] 65598- 1914 28 Oct, 2015 Cervicalgia M54.2 ; Secondary esophageal varices with bleeding I85.11 and Mouth pain K13.79 [facility], [place] [address] [place] [id number] [place] [address] 01716- 6150 Oct, [facility], [place] [address] [place] [id number] [place] [address] 36024- 9719 14 Oct, 2015 [facility] [place] [address] [place] [id number] [place] [address] 90476- 0233 Sep, [facility], [place] [address] [place] [id number] [place] [address] 26820- 9255 Sep, Acute maxillary sinusitis, recurrence not specified J01.00 [facility], [place] [address] [place] [id number] [place] [address] 15241- 9166 Aug, [facility] [place] [address] [place] [id number] [place] [address] 66508- 6140 Aug, [facility] [place] [address] [place] [id number] [place] [address] 96110- 0469 Aug, Dysuria R30.0 and Chronic back pain M54.9 [facility], [place] [address] [place] [id number] [place] [address] 16800- 7481 Jul, [facility], [place] [address] [place] [id number] [place] [address] 35461- 3946 Jul, [facility], [place] [address] [place] [id number] [place] [address] 42895- 9404 Jul, [facility], [place] [address] [place] [id number] [place] [address] 06601- 9943 Jul, Chronic back pain M54.9 [facility], [place] [address] [place] [id number] [place] [address] 86568- 5056 Jul, Dysthymia F34.1 and Chronic back pain M54.9 [facility], [place] [address] [place] [id number] [place] [address] 29155- 2752 Jun, [facility], [place] [address] [place] [id number] [place] [address] 83617- 6606 Jun, [facility], [place] [address] [place] [id number] [place] [address] 30902- 5659 May, [facility], [place] [address] [place] [id number] [place] [address] 64516- 0357 May, [facility], [place] [address] [place] [id number] [place] [address] 46272- 6421 May, [facility], [place] [address] [place] [id number] [place] [address] 24892- 7574 May, Encounter for immunization Z23 [facility], [place] [address] [place] [id number] [place] [address] 98021- 3992 Apr, [facility], [place] [address] [place] [id number] [place] [address] 68006- 5923 Apr, [facility], [place] [address] [place] [id number] [place] [address] 81158- 4103 Mar, [facility], [place] [address] [place] [id number] [place] [address] 16782- 0469 Mar, Back pain 724.5 [facility], [place] [address] [place] [id number] [place] [address] 75260- 5602 Mar, Cough 786.2 and Back pain 724.5 [facility], [place] [address] [place] [id number] [place] [address] 22969- 0154 Mar, [facility], [place] [address] [place] [id number] [place] [address] 60418- 8090 Mar, [facility], [place] [address] [place] [id number] [place] [address] 11591- 4731 December, [facility], [place] [address] [place] [address]- 4618 December, [facility] [place] [facility] [address] [id number] [place] [address]- 5477 Nov, [facility] [place] [facility] [address] [id number] [place] [address]- 2277 Nov, [facility] [place] [facility] [address] [id number] [place] [address]- 5031 Oct, [facility] [place] [facility] [address] [id number] [place] [address]- 9181 Oct, [facility] [place] [facility] [address] [id number] [place] [address]- 7852 Sep, [facility] [place] [facility] [address] [id number] [place] [address]- 9403 Sep, [facility] [place] [facility] [address] [facility] [id number] [place] [address]- 8124 Sep, [facility] [place] [facility] [address] [id number] [place] [address]- 3107 Sep, [facility] [place] [facility] [address] [id number] [place] [address]- 2404 Sep, [facility] [place] [facility] [address] [facility] [id number] [place] [address]- 0953 Sep, [facility] [place] [facility] [address] [facility] [id number] [place] [address]- 8402 Sep, [facility] [place] [facility] [address] [id number] [place] [address]- 7045 Sep, [facility] [place] [facility] [address] [id number] [place] [address]- 7369 Aug, [facility] [place] [facility] [address] [id number] [place] [address]- 0670 Aug, [facility] [place] [facility] [address] [facility] [id number] [place] [address]- 9414 14 Aug, 2014 [facility] [place] [facility] [address] [id number] [place] [address]- 8643 Aug, [facility] [place] [facility] [address] [id number] [place] [address]- 8778 Aug, [facility] [place] [facility] [address] [id number] [place] [address]- 9273 Aug, [facility] [place] [facility] [address] [id number] [place] [address]- 8205 Aug, [facility] [place] [facility] [address] [id number] [place] [address]- 9821 Jul, [facility] [place] [facility] [address] [id number] [place] [address]- 3425 Jul, [facility] [place] [facility] [address] [id number] [place] [address]- 3393 Jul, [facility] [place] [facility] [address] [id number] [place] [address]- 7533 18 Jul, 2014 [facility] [place] [facility] [address] [id number] [place] [address]- 0404 Jul, [facility] [place] [facility] [address] [id number] [place] [address]- 7988 Jul, [facility] [place] [facility] [address] [id number] [place] [address]- 3150 Jul, [facility] [place] [facility] [address] [id number], [place] [address]- 6447 Jul, [facility] [place] [facility] [address] [id number] [place] [address]- 9250 Jun, [facility] [place] [facility] [address] [id number] [place] [address]- 4454 Jun, [facility] [place] [facility] [address] [id number] [place] [address]- 5905 Jun, [facility] [place] [facility] [address] [id number] [place] [address]- 1637 07 Jun, 2013 [facility] [place] [facility] [address] [id number] [place] [address]- 3825 07 Jun, 2014 [facility] [place] [facility] [address] [id number] [place] [address]- 3326 Jun, [facility] [place] [facility] [address] [id number] [place] 2221 Jun, [facility] [place] [facility] [address] [id number] [place] [address]- 5749 28 May, 2014 [facility] [place] [facility] [address] [id number] [place] [address]- 3634 28 May, 2014 [facility] [place] [facility] [address] [id number] [place] [address]- 7803 28 May, 2014 [facility] [place] [facility] [address] [id number] [place] [address]- 5341 28 May, 2014 [facility] [place] [facility] [address] [id number] [place] [address]- 5393 2014 [facility] [place] [facility] [address] [id number] [place] [address]- 5814 2014 [facility] [place] [facility] [address] [id number] [place] [address]- 2595 2014 [facility] [place] [facility] [address] [id number] [place] [address]- 2294 2014 [facility] [place] [facility] [address] [id number] [place] [address]- 6599 13 May, 2014 [facility] [place] [facility] [address] [id number] [place] [address]- 4010 13 May, 2014 [facility] [place] [facility] [address] [id number] [place] [address]- 0822 10 May, 2014 [facility] [place] [facility] [address] [id number] [place] [address]- 2080 May, [facility] [place] [facility] [address] [id number] [place] [address]- 8340 May, [facility] [place] [facility] [address] [id number] [place] [address]- 9227 May, [facility] [place] [facility] [address] [id number] [place] [address]- 4887 Apr, [facility] [place] [facility] [address] [id number] [place] [address]- 1789 Apr, [facility] [place] [facility] [address] [id number] [place] [address]- 3768 Apr, [facility] [place] [facility] [address] [id number] [place] [address]- 4020 Apr, [facility] [place] [facility] [address] [id number] [place] [address]- 8122 Apr, [facility] [place] [facility] [address] [id number] [place] [address]- 6122 Apr, [facility] [place] [facility] [address] [id number] [place] [address]- 1494 Apr, [facility] [place] [facility] [address] [id number] [place] [address]- 5144 Mar, [facility] [place] [facility] [address] [id number] [place] [address]- 6887 Mar, [facility] [place] [facility] [address] [id number] [place] [address]- 7565 Mar, [facility] [place] [facility] [address] [id number] [place] [address]- 6663 Mar, [facility] [place] [facility] [address] [id number] [place] [address]- 0210 Mar, [facility] [place] [facility] [address] [id number] [place] [address]- 9443 Mar, [facility] [place] [facility] [address] [id number] [place] [address]- 2546 Feb, [facility] [place] [facility] [address] [id number] [place] 7754 Feb, [facility] [place] [facility] [address] [id number] [place] [address]- 9877 Feb, [facility] [place] [facility] [address] [id number] [place] [address]- 5710 Feb, [facility] [place] [facility] [address] [id number] [place] 4440 Feb, [facility] [place] [facility] [address] [id number] [place] [address]- 7336 Feb, [facility] [place] [facility] [address] [id number] [place] [address]- 9930 Feb, [facility] [place] [facility] [address] [id number] [place] [address]- 2473 Feb, [facility] [place] [facility] [address] [id number] [place] [address] Jan, [facility] [place] [facility] [address] [id number] [place] [address] Jan, [facility] [place] [facility] [address] [id number] [place] [address] December, [facility] [place] [facility] [address] [id number] [place] [address] December, [facility] [place] [facility] [address] [id number] [place] [address] December, [facility] [place] [facility] [address] [id number] [place] [address] December, [facility] [place] [facility] [address] [id number] [place] [address] December, [facility] [place] [facility] [address] [id number] [place] [address] December, [facility] [place] [facility] [address] [id number] [place] [address] December, [facility] [address] [id number] [place] [address] December, [facility] [address] [id number] [place] [address] December, [facility] [address] [id number] [place] [address] December, [facility] [address] [id number] [place] [address] December, [facility] [address] [id number] [place] [address] December, [facility] [address] [id number] [place] [address] Nov, [facility] [address] [id number] [place] [address] Nov, [facility] [address] [id number] [place] [address] Nov, [facility] [address] [id number] [place] [address] Nov, [facility] [address] [id number] [place] [address] Nov, [facility] [place] [facility] [address] [id number] [place] [address] Nov, [facility] [place] [facility] [address] [id number] [place] [address]79 Nov, [facility] [place] [facility] [address] [id number] [place] [address] Nov, [facility] [place] [facility] [address] [id number] [place] [address] Nov, [facility] [place] [facility] [address] [id number] [place] [address] Nov, [facility] [place] [facility] [address] [id number] [place] [address] Nov, [facility] [place] [facility] [address] [id number] [place] [address] Nov, [facility] [place] [facility] [address] [id number] [place] [address] Nov, [facility] [place] [facility] [address] [id number] [place] [address] Oct, [facility] [place] [facility] [address] [id number] [place] [address]368 Oct, [facility] [place] [facility] [address] [id number] [place] [address] Sep, [facility] [place] [facility] [address] [id number] [place] [address] 3926 Sep, [facility] [place] [facility] [address] [id number] [place] [address] 8[address] Sep, [facility] [place] [facility] [address] [id number] [place] [address] 15[address] Sep, [facility] [place] [facility] [address] [facility] [id number] [place] [address] 7068 Sep, [facility] [place] [facility] [address] [facility] [id number] [place] [address]604 Sep, [facility] [place] [facility] [address] [id number] [place] [address] 3580 Sep, [facility] [place] [facility] [address] [id number] [place] [address] 18 Sep, 2013 [facility] [place] [facility] [address] [id number] [place] [address] Sep, [facility] [place] [facility] [address] [facility] [id number] [place] [address]- 8315 Sep, [facility] [place] [facility] [address] [id number] [place] [address]- [address] 05 Sep, 2013 [facility] [place] [facility] [address] [id number] [place] [address]- [address] Sep, [facility] [place] [facility] [address] [id number] [place] [address] Aug, [facility] [place] [facility] [address] [id number] [place] [address] Aug, [facility] [place] [facility] [address] [id number] [place] [address] 8[address] Aug, [facility] [place] [facility] [address] [id number] [place] [address] 29[address] Aug, [facility] [place] [facility] [address] [id number] [place] [address]26 Aug, [facility] [place] [facility] [address] [id number] [place] [address] Aug, [facility] [place] [facility] [address] [id number] [place] [address] 9599 Aug, [facility] [place] [facility] [address] [id number] [place] [address] Aug, [facility] [place] [facility] [address] [id number] [place] [address] Aug, [facility] [place] [facility] [address] [id number] [place] [address]- [address] Aug, [facility] [place] [facility] [address] [id number] [place] [address] 4841 Aug, [facility] [place] [facility] [address] [id number] [place] [address]- 0845 Aug, [facility] [place] [facility] [address] [id number] [place] [address] 8656 Aug, [facility] [place] [facility] [address] [id number] [place] [address] Aug, [facility] [address] [id number] [place] [address] Aug, [facility] [place] [facility] [address] [id number] [place] [address] 6530 Aug, [facility] [place] [facility] [address] [id number] [place] [address] 3970 Aug, [facility] [place] [facility] [address] [id number] [place] [address]- 2987 Aug, [facility] [place] [facility] [address] [id number] [place] [address]- 1065 Aug, [facility] [place] [facility] [address] [id number] [place] [address] 3707 Aug, [facility] [place] [facility] [address] [id number] [place] [address] 9446 Aug, [facility] [place] [facility] [address] [id number] [place] [address]- 6887 Aug, [facility] [place] [facility] [address] [id number] [place] [address]- 6010 Aug, [facility] [place] [facility] [address] [id number] [place] [address]- 7702 Jul, [facility] [place] [facility] [address] [id number], [place] [address] 43[address] Jul, [facility] [place] [facility] [address] [id number], [place] [address] 8607 Jul, [facility] [place] [facility] [address] [id number] [place] [address]- 6320 Jul, [facility] [place] [facility] [address] [id number], [place] [address] 26[address] Jul, [facility] [place] [facility] [address] [id number], [place] [address] 2746 Jul, [facility] [place] [facility] [address] [id number] [place] [address]- 4896 Jun, [facility] [place] [facility] [address] [id number] [place] [address]- 4738 Jun, [facility] [place] [facility] [address] [id number] [place] [address]- 1801 Jun, [facility] [place] [facility] [address] [id number] [place] [address]- 0648 Jun, [facility] [place] [facility] [address] [id number] [place] [address]- 7611 Jun, [facility] [place] [facility] [address] [id number] [place] [address]- 7659 Jun, [facility] [place] [facility] [address] [id number] [place] [address]- 3691 Jun, [facility] [place] [facility] [address] [id number] [place] [address]- 1241 Jun, [facility] [place] [facility] [address] [id number] [place] [address]- 7163 Jun, [facility] [place] [facility] [address] [id number] [place] [address]- 7603 Jun, [facility] [place] [facility] [address] [facility] [id number] [place] [address]- 9966 May, [facility] [place] [facility] [address] [id number] [place] [address]- 9451 May, [facility] [place] [facility] [address] [id number], [place] [address]- 5217 May, [facility] [place] [facility] [address] [id number] [place] [address]- 8934 May, [facility] [place] [facility] [address] [facility] [id number] [place] [address]- 7852 May, [facility] [place] [facility] [address] [id number], [place] [address]- 0423 May, [facility] [place] [facility] [address] [id number] [place] [address]- 6640 May, [facility] [place] [facility] [address] [id number] [place] [address]- 2538 May, [facility] [place] [facility] [address] [id number] [place] [address]- 0414 May, [facility] [place] [facility] [address] [id number] [place] [address]- 9141 May, [facility] [place] [facility] [address] [id number] [place] [address]- 8345 17 May, 2013 [facility] [place] [facility] [address] [id number] [place] [address]- 4521 May, [facility] [place] [facility] [address] [id number] [place] [address]- 6214 May, [facility] [place] [facility] [address] [id number] [place] [address]- 8969 May, [facility] [place] [facility] [address] [id number] [place] [address]- 6492 May, [facility] [place] [facility] [address] [id number] [place] [address]- 5117 24 Apr, 2013 [facility] [place] [facility] [address] [id number] [place] [address]- 8110 Apr, [facility] [place] [facility] [address] [id number] [place] [address]- 2762 Apr, [facility] [place] [facility] [address] [id number] [place] [address]- 2335 Mar, [facility] [place] [facility] [address] [id number] [place] [address]- 7366 Mar, [facility] [place] [facility] [address] [id number] [place] [address]- 4864 Mar, [facility] [place] [facility] [address] [id number] [place] [address]- 2546 Mar, [facility] [place] [facility] [address] [id number] [place] [address]- 6752 Mar, [facility] [place] [facility] [address] [id number] [place] [address]- 0644 Mar, [facility] [place] [facility] [address] [id number] [place] [address]- 3928 Feb, [facility] [place] [facility] [address] [id number] [place] [address]- 3512 Feb, [facility] [place] [facility] [address] [id number] [place] [address]- 6504 Feb, [facility] [place] [facility] [address] [id number] [place] [address]- 8119 Feb, [facility] [place] [facility] [address] [id number] [place] [address]- 1048 Feb, [facility] [place] [facility] [address] [id number] [place] [address]- 3946 Feb, [facility] [place] [facility] [address] [id number] [place] [address]- 3407 Feb, [facility] [place] [facility] [address] [id number] [place] [address]- 7876 Feb, [facility] [place] [facility] [address] [id number] [place] [address]- 2436 Feb, [facility] [place] [facility] [address] [id number] [place] [address]- 7888 Feb, [facility] [place] [facility] [address] [id number] [place] [address]- 4405 Jan, [facility] [place] [facility] [address] [id number] [place] [address]- 3480 Jan, [facility] [place] [facility] [address] [id number] [place] [address]- 5130 Jan, [facility] [place] [facility] [address] [id number] [place] [address]- 4616 Jan, [facility] [address] [id number] [place] [address]- 2299 December, [facility] [address] [id number] [place] [address]- 3310 December, [facility] [address] [id number] [place] [address]- 7584 December, [facility] [address] [id number] [place] [address]- 3836 Nov, [facility] [address] [id number] [place] [address]- 8449 Nov, [facility] [address] [id number] [place] [address]- 9093 Nov, [facility] [address] [id number] [place] [address]- 4178 Nov, [facility] [address] [id number] [place] [address]- 1762 Nov, [facility] [address] [id number] [place] [address]- 5117 Nov, [facility] [address] [id number] [place] [address]- 3622 Oct, [facility] [address] [id number] [place] [address]- 5331 Oct, [facility] [address] [id number] [place] [address]- 3280 Oct, [facility] [place] [facility] [address] [id number] [place] [address]- 2336 Sep, [facility] [address] [id number] [place] [address]- 2546 Sep, [facility] [address] [id number] [place] [address]- 2415 Sep, [facility] [place] [facility] [address] [id number] [place] [address]- 6018 Aug, [facility] [place] [facility] [address] [id number] [place] [address]- 1780 Aug, [facility] [place] [facility] [address] [id number] [place] [address]- 4254 Aug, [facility] [place] [facility] [address] [id number] [place] [address]- 9959 Aug, [facility] [place] [facility] [address] [id number] [place] [address]- 2341 Jul, [facility] [place] [facility] [address] [id number] [place] [address]- 7112 Jul, [facility] [place] [facility] [address] [id number] [place] [address]- 1524 Jul, [facility] [place] [facility] [address] [id number] [place] [address]- 1706 Jul, [facility] [place] [facility] [address] [id number] [place] [address]- 2976 Jun, [facility] [place] [facility] [address] [id number] [place] [address]- 0780 Jun, [facility] [place] [facility] [address] [id number], [place] [address]- 8223 Jun, [facility] [place] [facility] [address] [id number], [place] [address]- 7763 Jun, [facility] [place] [facility] [address] [id number] [place] [address]- 2001 Jun, [facility] [place] [facility] [address] [id number], [place] [address]- 0846 Jun, [facility] [place] [facility] [address] [id number] [place] [address]- 5031 Jun, [facility] [place] [facility] [address] [id number] [place] [address]- 7944 02 Jun, 2012 [facility] [place] [facility] [address] [id number] [place] [address]- 9631 30 May, 2012 [facility] [place] [facility] [address] [id number] [place] [address]- 3303 30 May, 2012 [facility] [place] [facility] [address] [id number] [place] [address]- 8488 18 May, 2012 [facility] [place] [facility] [address] [id number] [place] [address]- 3243 18 May, 2012 [facility] [place] [facility] [address] [id number] [place] [address]- 5414 2012 [facility] [place] [facility] [address] [id number] [place] [address]- 3119 13 May, 2012 [facility] [place] [facility] [address] [id number] [place] [address]- 3763 11 May, 2012 [facility] [place] [facility] [address] [id number] [place] [address]- 6021 11 May, 2012 [facility] [place] [facility] [address] [id number] [place] [address]- 3837 10 May, 2012 [facility] [place] [facility] [address] [facility] [id number] [place] [address]- 4316 08 May, 2012 [facility] [place] [facility] [address] [id number] [place] [address]- 0566 24 Sep, 2011 [facility] [place] [facility] [address] [id number] [place] [address]- 2545 19 Sep, 2011 [facility] [place] [facility] [address] [id number] [place] [address]- 3501 18 Sep, 2011 [facility] [place] [facility] [address] [id number] [place] [address]- 1116 17 Sep, 2011 [facility] [place] [facility] [address] [id number] [place] [address]- 2527 16 Apr, 2012 [facility] [place] [facility] [address] [id number] [place] [address]- 6616 Apr, [facility] [place] [facility] [address] [id number] [place] [address]- 2132 Mar, [facility] [place] [facility] [address] [id number] [place] [address]- 7613 Mar, [facility] [place] [facility] [address] [id number] [place] [address]- 6444 Mar, [facility] [place] [facility] [address] [id number] [place] [address]- 9975 Mar, [facility] [place] [facility] [address] [id number] [place] [address]- 0627 Mar, [facility] [place] [facility] [address] [id number] [place] [address]- 1328 Mar, [facility] [place] [facility] [address] [id number] [place] [address]- 5339 Feb, [facility] [place] [facility] [address] [id number] [place] [address]- 1346 Feb, [facility] [place] [facility] [address] [id number] [place] [address]- 2824 Feb, [facility] [place] [facility] [address] [id number] [place] [address]- 7734 Feb, [facility] [place] [facility] [address] [id number] [place] [address]- 5764 Feb, [facility] [place] [facility] [address] [id number] [place] [address]- 6439 Feb, [facility] [place] [facility] [address] [id number] [place] [address]- 8174 Feb, [facility] [place] [facility] [address] [id number] [place] [address]- 6248 Feb, [facility] [place] [facility] [address] [id number] [place] [address]- 5210 Feb, [facility] [place] [facility] [address] [id number] [place] [address]- 2323 Jan, [facility] [place] [facility] [address] [id number] [place] 6617 Jan, [facility] [place] [facility] [address] [id number] [place] [address]- 0372 Jan, [facility] [place] [facility] [address] [id number] [place] [address]- 6734 Jan, [facility] [place] [facility] [address] [id number] [place] [address]- 2289 Jan, [facility] [place] [facility] [address] [id number] [place] [address]- 8935 Jan, [facility] [place] [facility] [address] [id number] [place] [address]- 4166 Jan, [facility] [place] [facility] [address] [id number] [place] [address]- 8377 Jan, [facility] [place] [facility] [address] [id number] [place] [address]- 2903 Jan, [facility] [place] [facility] [address] [id number] [place] [address]- 1745 December, [facility] [place] [facility] [address] [id number] [place] [address]- 1052 December, [facility] [place] [facility] [address] [id number] [place] [address]- 5218 December, [facility] [place] [facility] [address] [id number] [place] [address]- 5294 December, [facility] [place] [facility] [address] [id number] [place] [address]- 4314 December, [facility] [place] [facility] [address] [id number] [place] [address]- 1563 December, [facility] [place] [facility] [address] [id number] [place] [address]- 9908 December, [facility] [address] [id number] [place] [address]- 9846 December, [facility] [address] [id number] [place] [address]- 8971 December, [facility] [address] [id number] [place] [address]- 2240 December, [facility] [address] [id number] [place] [address]- 4943 Nov, [facility] [address] [id number] [place] [address]- 9875 Nov, [facility] [address] [id number] [place] [address]- 6014 Nov, [facility] [address] [id number] [place] [address]- 5341 Nov, [facility] [address] [id number] [place] [address]- 9009 16 Nov, 2011 [facility] [address] [id number] [place] [address]- 3814 Nov, [facility] [address] [id number] [place] [address]- 8426 Nov, [facility] [address] [id number] [place] [address]- 4483 Nov, [facility] [address] [id number] [place] [address]- 7782 Nov, [facility] [address] [id number] [place]6 Nov, [facility] [address] [id number] [place] 5633 Oct, [facility] [address] [id number] [place] [address]- 6318 Oct, [facility] [place] [facility] [address] [id number] [place] [address]- 5468 23 Oct, 2011 [facility] [place] [facility] [address] [id number] [place] [address]- 6776 23 Oct, 2011 [facility] [place] [facility] [address] [id number] [place] [address]- 9956 21 Oct, 2011 [facility] [place] [facility] [address] [id number] [place] [address]- 6366 20 Oct, 2011 [facility] [place] [facility] [address] [id number] [place] [address]- 1031 19 Oct, 2011 [facility] [place] [facility] [address] [id number] [place] [address]- 8276 19 Oct, 2011 [facility] [place] [facility] [address] [id number] [place] [address]- 4176 16 Oct, 2011 [facility] [place] [facility] [address] [id number] [place] [address]- 3316 14 Oct, 2011 [facility] [place] [facility] [address] [id number] [place] [address]- 2013 14 Oct, 2011 [facility] [place] [facility] [address] [id number] [place] [address]- 6541 09 Oct, 2011 [facility] [place] [facility] [address] [id number] [place] [address]- 6456 08 Oct, 2011 [facility] [place] [facility] [address] [id number] [place] [address]- 2246 06 Oct, 2011 [facility] [place] [facility] [address] [id number] [place] [address]- 0926 02 Oct, 2011 [facility] [place] [facility] [address] [id number] [place] [address]- 6316 28 Sep, 2011 [facility] [place] [facility] [address] [id number] [place] [address]- 9736 24 Sep, 2011 [facility] [place] [facility] [address] [id number] [place] [address]- 0086 20 Sep, 2011 [facility] [place] [facility] [address] [id number] [place] [address] 2546 17 Sep, 2011 [facility] [place] [facility] [address] [id number] [place] [address] 2546 16 Sep, 2011 [facility] [place] [facility] [address] [id number] [place] [address] 2546 14 Sep, 2011 [facility] [place] [facility] [address] [id number] [place] [address] 2546 13 Sep, 2011 [facility] [place] [facility] [address] [id number] [place] [address]- 3206 10 Sep, 2011 [facility] [place] [facility] [address] [id number] [place] [address] 2546 06 Sep, 2011 [facility] [place] [facility] [address] [id number] [place] [address] 2546 03 Sep, 2011 [facility] [place] [facility] [address] [id number] [place] [address]- 5856 Sep, [facility] [place] [facility] [address] [id number] [place] [address]- 2836 Aug, [facility] [place] [facility] [address] [id number] [place] [address]- 4266 Aug, [facility] [place] [facility] [address] [id number] [place] [address] 2546 Aug, [facility] [place] [facility] [address] [id number] [place] [address] 2546 Aug, [facility] [place] [facility] [address] [id number] [place] [address] 2546 Aug, [facility] [place] [facility] [address] [id number] [place] [address] 2546 Aug, [facility] [place] [facility] [address] [id number] [place] [address]- 5973 Aug, [facility] [address] [id number] [place] [address]- 6836 17 Aug, 2011 [facility] [place] [facility] [address] [id number] [place] [address]- 8608 16 Aug, 2011 [facility] [place] [facility] [address] [id number] [place] [address]- 6764 13 Aug, 2011 [facility] [place] [facility] [address] [id number] [place] [address] Aug, [facility] [address] [id number] [place] [address] Aug, [facility] [place] [facility] [address] [id number] [place] [address] Aug, [facility] [address] [id number] [place] [address] Aug, [facility] [place] [facility] [address] [id number] [place] [address] Aug, [facility] [place] [facility] [address] [id number] [place] [address] Aug, [facility] [place] [facility] [address] [id number] [place] [address] Aug, [facility] [place] [facility] [address] [id number] [place] [address] 30 Jul, 2011 [facility] [place] [facility] [address] [id number] [place] [address] 28 Jul, 2011 [facility] [place] [facility] [address] [id number] [place] [address] Jul, [facility] [place] [facility] [address] [id number] [place] [address] 23 Jul, 2011 [facility] [place] [facility] [address] [id number] [place] [address] 19 Jul, 2011 [facility] [place] [facility] [address] [id number] [address] Jul, [facility] [place] [address] [id number] [address] Jul, [facility] [place] [address] [id number], [place] [address] Jul, [facility], [place] [id number], [place] [address] Jul, [facility], [place] [id number], [place] [address] Jul, [facility], [place] [id number] [place] [address] Jul, [facility], [place] [id number], [place] [address] Jun, [facility], [place] [id number], [place] [address] Jun, [facility], [place] [address] [id number] [address] Jun, IMMUNIZATIONS No Known Immunizations SOCIAL HISTORY [...]
--- OUTSIDE RECORDS SUMMARY | 2018-08-05 03:32 | XMS REPORT ---
Author Author HEATHER FINE Organization [facility] Address [address] [place] [address] Care Team Providers Care Patient Accounting Representative Name Role Phone HEATHER FINE Unavailable PROBLEMS Type Condition ICD9-CM Code LOI91-TF Code Onset Dates Condition Status SNOMED Code Problem Unspecified cirrhosis of liver K74.60 Active 935307380 Problem Lymphocytosis D72.820 Active 69782998 Problem Secondary esophageal varices with bleeding I85.11 Active 22197814 Problem Anxiety F41.9 Active 34359211 Problem Asthma J45.909 Active 538572678 Problem Chronic back pain M54.9 Active 808343860 Problem Dysthymia F34.1 Active 97782039 Problem Thrombocytosis D47.3 Active 6942576 Problem Splenomegaly R16.1 Active 85328692 Problem 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 Active 165064756 Problem History of hepatitis C Z86.19 Active [id number] ALLERGIES Substance Reaction Event Type Date Status Sulfamethoxazole-Trimethoprim Unknown Drug Allergy Mar, Active ENCOUNTERS Encounter Location Date Diagnosis [place] [id number] [place] [address] 46913- 0822 Nov, Chronic back pain M54.9 and Anxiety F41.9 [place] [address] [place] [id number] [place] [address] 64114- 5960 Oct, Chronic back pain M54.9 and Anxiety F41.9 [place] [address] [place] [id number] [place] [address] 96872- 0942 Oct, [place] [address] [place] [id number] [place] [address] 95425- 4264 Sep, Chronic back pain M54.9 ; Anxiety F41.9 ; Pain of left leg M79.605 and Pain in right leg M79.604 [place] [address] [place] [id number] [place] [address] 28967- 2241 Sep, Anxiety F41.9 and Chronic back pain M54.9 [facility] [address] [place] [id number] [place] [address] 71491- 3726 Sep, [facility] [address] [place] [id number] [place] [address] 46939- 9695 Aug, Anxiety F41.9 [facility] [address] [place] [id number] [place] [address] 81787- 1369 Jul, Anxiety F41.9 [facility] [address] [place] [address] [id number] [place] [address] 13137- 0483 Jul, [facility] [address] [place] [id number] [place] [address] 53330- 3198 Jul, Viral syndrome B34.9 ; Chronic back pain M54.9 and Dysuria R30.0 [facility] [address] [place] [id number] [place] [address] 69781- 8750 Jun, [facility] [address] [place] [address] [id number] [place] [address] 07356- 6936 Jun, Anxiety F41.9 [facility] [id number] [place] [address] 82227 -2467 Jun, Dysuria R30.0 and Acute cystitis without hematuria N30.00 [facility] [address] [place] [id number] [place] [address] 50164- 8083 Jun, [facility] [address] [place] [id number] [place] [address] 62129- 5483 May, Anxiety F41.9 [facility] [address] [place] [id number] [place] [address] 94773- 8627 May, Anxiety F41.9 [facility] [address] [place] [id number] [place] [address] 48304- 9328 Apr, [facility] [address] [id number] [address] 5142 Apr, Chronic back pain M54.9 and Anxiety F41.9 [facility] [address] [address]- 5688 Mar, [facility] [address] [place] [id number] [address]- 9329 Mar, [facility] [id number] [place] [address] 75194- 4725 Mar, Well woman exam Z01.419 ; Cervical cancer screening Z12.4 ; Breast cancer screening Z12.31 and Colon cancer screening Z12.11 [facility] [address] [address]- 2099 Mar, Chronic back pain M54.9 and Anxiety F41.9 [facility] [address] [address]- 5921 Mar, [facility] [address] [address]- 3120 Feb, Chronic back pain M54.9 and Anxiety F41.9 [facility] [address] [address]- 0337 Feb, [facility] [address] [address]- 8877 Feb, [facility] [address] [address]- 0221 Jan, Chronic back pain M54.9 and Anxiety F41.9 [facility] [address] [address]- 9066 Jan, [facility] [address] [address]- 9270 Jan, [facility] [address] [address]- 1533 December, Chronic back pain M54.9 and Anxiety F41.9 [facility] [address] [address]- 1789 Nov, Chronic back pain M54.9 and Anxiety F41.9 [facility] [id number] [place] [address] 49278 2546 Oct, Chronic back pain M54.9 and Anxiety F41.9 [facility] [id number] [place] [address] 21752- 3696 Oct, Chronic back pain M54.9 [facility] [id number] [place] [address] 82258- 4096 Sep, Anxiety F41.9 and Chronic back pain M54.9 [facility] [id number] [place] [address] 78223- 3526 Aug, Anxiety F41.9 and Chronic back pain M54.9 [facility] [address] [place] [id number] [place] [address] 71839- 9673 Aug, [facility] [id number] [place] [address] 24543- 5546 Jul, Chronic back pain M54.9 and Anxiety F41.9 [facility] [address] [address]- 0666 Jul, Anxiety F41.9 and Chronic back pain M54.9 [facility] [address] [place] [id number] [id number] Jul, [facility] [address] [address]- 8126 Jul, Anxiety F41.9 [facility] [address] [address]- 6966 Jul, Anxiety F41.9 and Dysuria R30.0 [facility] [address] [address]- 4848 Jul, Chronic back pain M54.9 and Anxiety F41.9 [facility] [address] [id number] [address] 2546 Jun, Chronic back pain M54.9 [facility] [id number] [place] [address] 55067 2546 Jun, Chronic back pain M54.9 [facility] [address] [facility] [id number] [place] [address] 11876 2546 May, Anxiety F41.9 [facility] [address] [facility] [id number] [place] [address] 46018 2546 May, Chronic back pain M54.9 [facility] [id number] [place] [address], [place] [address] 2546 Apr, [facility] [address] [facility] [id number] [place] [address] 23965 2546 Apr, [facility] [address] [facility] [id number] [place] [address] 71618 2546 Apr, [facility] [address] [facility] [id number] [place] [address] 98249 2546 Apr, Chronic back pain M54.9 [facility] [address] [facility] [id number] [place] [address] 13104 2546 Mar, Chronic back pain M54.9 [facility] [address] [facility] [id number] [place] [address] 2546 Feb, Grief F43.20 [facility] [address] [facility] [id number] [place] [address] 2546 Feb, Chronic back pain M54.9 and Anxiety F41.9 [facility] [id number] [place] [address] 78107 2546 Feb, Chronic back pain M54.9 [facility] [address] [facility] [id number] [place] [address] 2546 Jan, Chronic back pain M54.9 [facility] [address] [place] [id number] [place] [address] 66822- 6211 December, [facility] [address] [place] [id number] [place] [address] 83754- 3362 December, Grief F43.20 [facility] [address] [place] [id number] [place] [address] 89166- 3035 Nov, [facility] [address] [place] [id number] [place] [address] 95690- 0157 Oct, Cervicalgia M54.2 ; Secondary esophageal varices with bleeding I85.11 and Mouth pain K13.79 [facility] [address] [place] [id number] [place] [address] 29210- 8648 Oct, [facility] [address] [place] [id number] [place] [address] 36884- 4543 Oct, [facility] [address] [place] [id number] [place] [address] 56501- 8869 Sep, [facility] [address] [place] [id number] [place] [address] 39992- 2644 Sep, Acute maxillary sinusitis, recurrence not specified J01.00 [facility] [address] [place] [id number] [place] [address] 38924- 4586 Aug, [facility] [address] [place] [id number] [place] [address] 54321- 4695 Aug, [facility] [address] [place] [id number] [place] [address] 72673- 4231 Aug, Dysuria R30.0 and Chronic back pain M54.9 [facility] [address] [place] [id number] [place] [address] 78893- 9824 Jul, [facility] [address] [place] [id number] [place] [address] 23243- 1652 Jul, [facility] [address] [place] [id number] [place] [address] 59613- 0992 Jul, [facility] [address] [place] [id number] [place] [address] 57271- 7635 Jul, Chronic back pain M54.9 [facility] [address] 65563- 4705 Jul, Dysthymia F34.1 and Chronic back pain M54.9 [facility] [address] [place] [id number] [place] [address] 72132- 7874 Jun, [facility] [address] [place] [id number] [place] [address] 25080- 8661 Jun, [facility] [address] [place] [id number] [place] [address] 32110- 6371 May, [facility] [address] [place] [id number] [place] [address] 62224- 4304 May, [facility] [address] [place] [id number] [place] [address] 58950- 4391 May, [facility] [address] [place] [id number] [place] [address] 15470- 3511 May, Encounter for immunization Z23 [facility] [address] 83808- 3207 15 Apr, 2015 [facility] [address] [place] [id number] [place] [address] 83646- 1176 Apr, [facility] [address] [place] [id number] [place] [address] 81280- 7635 Mar, [facility] [address] [place] [id number] [place] [address] 86615- 0664 Mar, Back pain 724.5 [facility] [address] [place] [id number] [place] [address] 00460- 6043 17 Mar, 2015 Cough 786.2 and Back pain 724.5 [facility] [address] [place] [id number] [place] [address] 67262- 6158 Mar, [facility] [address] [place] [address]- 6217 Mar, [facility] [place] [facility] [address] [id number] [place] [address]- 0510 December, [facility] [place] [facility] [address] [id number] [place] [address]- 9071 December, [facility] [place] [facility] [address] [facility] [id number] [place] [address]- 7127 Nov, [facility] [place] [facility] [address] [id number] [place] [address]- 0596 Nov, [facility] [place] [facility] [address] [id number] [place] [address]- 5933 Oct, [facility] [place] [facility] [address] [facility] [id number] [place] [address]- 4673 Oct, [facility] [place] [facility] [address] [facility] [id number] [place] [address]- 2534 Sep, [facility] [place] [facility] [address] [facility] [id number] [place] [address]- 1271 Sep, [facility] [place] [facility] [address] [place] [id number] [address]- 3434 Sep, [facility] [place] [facility] [address] [facility] [id number] [place] [address]- 7700 Sep, [facility] [place] [facility] [address] [facility] [id number] [place] [address]- 6039 Sep, [facility] [place] [facility] [address] [facility] [id number] [place] [address]- 8211 Sep, [facility] [place] [facility] [address] [facility] [id number] [place] [address]- 8442 Sep, [facility] [place] [facility] [address] [facility] [id number] [place] [address]- 3849 Sep, [facility] [place] [facility] [address] [place] [id number] [address]- 8820 Aug, [facility] [place] [facility] [address] [id number] [place] [address]- 6094 14 Aug, 2014 [facility] [place] [facility] [address] [id number] [place] [address]- 6497 14 Aug, 2014 [facility] [place] [facility] [address] [id number] [place] [address]- 9436 13 Aug, 2014 [facility] [place] [facility] [address] [id number] [place] [address]- 8631 Aug, [facility] [place] [facility] [address] [id number] [place] [address]- 9781 Aug, [facility] [place] [facility] [address] [id number] [place] [address]- 9209 Aug, [facility] [place] [facility] [address] [id number] [place] [address]- 5013 Jul, [facility] [place] [facility] [address] [id number] [place] [address]- 3617 Jul, [facility] [place] [facility] [address] [id number] [place] [address]- 5681 Jul, [facility] [place] [facility] [address] [id number] [place] [address]- 1245 Jul, [facility] [place] [facility] [address] [id number] [place] [address]- 2856 15 Jul, 2014 [facility] [place] [facility] [address] [id number] [place] [address]- 0799 Jul, [facility] [place] [facility] [address] [id number] [place] [address]- 6091 Jul, [facility] [place] [facility] [address] [id number] [place] [address]- 2219 Jul, [facility] [place] [facility] [address] [id number] [place] [address]- 8964 Jun, [facility] [place] [facility] [address] [id number] [place] [address]- 7540 Jun, [facility] [place] [facility] [address] [id number] [place] [address]- 2029 Jun, [facility] [place] [facility] [address] [id number] [place] [address]- 5695 Jun, [facility] [place] [facility] [address] [id number] [place] [address]- 9728 Jun, [facility] [place] [facility] [address] [id number] [place] [address]- 1561 Jun, [facility] [place] [facility] [address] [id number] [place] [address]- 7257 Jun, [facility] [place] [facility] [address] [id number] [place] [address]- 2628 May, [facility] [place] [facility] [address] [id number] [place] [address]- 0564 May, [facility] [place] [facility] [address] [id number] [place] [address]- 6711 28 May, 2014 [facility] [place] [facility] [address] [id number] [place] [address]- 4653 28 May, 2014 [facility] [place] [facility] [address] [id number] [place] [address]- 3769 May, [facility] [place] [facility] [address] [id number] [place] [address]- 8593 2014 [facility] [place] [facility] [address] [id number] [place] [address]- 2649 2014 [facility] [place] [facility] [address] [id number] [place] [address]- 7560 2014 [facility] [place] [facility] [address] [id number] [place] [address]- 2889 13 May, 2014 [facility] [place] [facility] [address] [id number] [place] [address]- 5787 13 May, 2014 [facility] [place] [facility] [address] [id number] [place] [address]- 4842 May, [facility] [place] [facility] [address] [id number] [place] [address]- 0577 May, [facility] [place] [facility] [address] [id number] [place] [address]- 1214 May, [facility] [place] [facility] [address] [id number] [place] [address]- 1060 May, [facility] [place] [facility] [address] [id number] [place] [address] Apr, [facility] [place] [facility] [address] [id number] [place] [address] Apr, [facility] [place] [facility] [address] [id number] [place] [address] Apr, [facility] [place] [facility] [address] [id number] [place] [address] Apr, [facility] [place] [facility] [address] [id number] [place] [address] Apr, [facility] [place] [facility] [address] [id number] [place] [address] Apr, [facility] [place] [facility] [address] [id number] [place] [address] Apr, [facility] [place] [facility] [address] [id number] [place] [address] Mar, [facility] [place] [facility] [address] [id number] [place] [address] Mar, [facility] [place] [facility] [address] [id number] [place] [address] Mar, [facility] [place] [facility] [address] [id number] [place] [address] Mar, [facility] [place] [facility] [address] [id number] [place] [address] Mar, [facility] [place] [facility] [address] [id number] [place] [address] Mar, [facility] [place] [facility] [address] [id number] [place] [address] Feb, [facility] [place] [facility] [address] [id number] [place] [address] Feb, [facility] [place] [facility] [address] [id number] [place] [address] Feb, [facility] [place] [facility] [address] [id number] [place] [address] Feb, [facility] [place] [facility] [address] [id number] [place] [address]- [address]47 Feb, [facility] [place] [facility] [address] [id number] [place] [address]- [address] Feb, [facility] [place] [facility] [address] [id number] [place] [address] Feb, [facility] [place] [facility] [address] [id number] [place] [address]- [address] Feb, [facility] [place] [facility] [address] [id number] [place] [address] Jan, [facility] [place] [facility] [address] [id number] [place] [address]- [address] Jan, [facility] [place] [facility] [address] [id number] [place] [address]- [address] December, [facility] [place] [facility] [address] [id number] [place] [address]- [address] December, [facility] [place] [facility] [address] [id number] [place] [address]- [address] December, [facility] [place] [facility] [address] [id number] [place] [address]- 89[address] December, [facility] [place] [facility] [address] [id number] [place] [address]- [address] December, [facility] [address] [id number] [place] [address]- 46[address] December, [facility] [address] [id number] [place] [address]- [address] December, [facility] [address] [id number] [place] [address] December, [facility] [address] [id number] [place] [address]- 140[address] December, [facility] [address] [id number] [place] [address]- [address] December, [facility] [address] [id number] [place] [address] 84[address] December, [facility] [address] [id number] [place] [address]- [address] December, [facility] [address] [id number] [place] [address] Nov, [facility] [address] [id number] [place] [address] Nov, [facility] [address] [id number] [place] [address]- [address] Nov, [facility] [address] [id number] [place] [address] Nov, [facility] [address] [id number] [place] [address]- [address] Nov, [facility] [place] [facility] [address] [id number] [place] [address]- [address] Nov, [facility] [place] [facility] [address] [id number] [place] [address] Nov, [facility] [place] [facility] [address] [id number] [place] [address]- [address] Nov, [facility] [place] [facility] [address] [id number] [place] [address]- [address] Nov, [facility] [place] [facility] [address] [id number] [place] [address]- [address] Nov, [facility] [place] [facility] [address] [id number] [place] [address] Nov, [facility] [place] [facility] [address] [id number] [place] [address]- [address] Nov, [facility] [place] [facility] [address] [id number] [place] [address]- 38[address] Nov, [facility] [place] [facility] [address] [id number] [place] [address]- [address] Oct, [facility] [place] [facility] [address] [facility] [id number] [place] [address]- [address] Oct, [facility] [place] [facility] [address] [id number] [place] [address]- [address]697 Sep, [facility] [place] [facility] [address] [id number] [place] [address]- [address] Sep, [facility] [place] [facility] [address] [id number] [place] [address]- [address]136 Sep, [facility] [place] [facility] [address] [id number] [place] [address]- 73[address] Sep, [facility] [place] [facility] [address] [id number] [place] [address]- 7[address] Sep, [facility] [place] [facility] [address] [id number] [place] [address] 0[address] Sep, [facility] [place] [facility] [address] [id number] [place] [address]- [address] Sep, [facility] [facility] [address] [facility] [id number] [place] [address]20 18 Sep, 2013 [facility] [place] [facility] [address] [id number] [place] [address] 1197 10 Sep, 2013 [facility] [place] [facility] [address] [id number] [place] [address]- 1186 Sep, [facility] [place] [facility] [address] [id number] [place] [address] 7756 Sep, [facility] [place] [facility] [address] [id number] [place] [address]- 3686 Sep, [facility] [place] [facility] [address] [id number] [place] [address] 1923 Aug, [facility] [place] [facility] [address] [id number] [place] [address]- 7284 Aug, [facility] [place] [facility] [address] [id number] [place] [address]- 9904 Aug, [facility] [place] [facility] [address] [id number] [place] [address]- 6318 Aug, [facility] [facility] [address] [id number] [place] [address]- 7488 Aug, [facility] [facility] [address] [id number] [place] [address]- 5529 Aug, [facility] [facility] [address] [id number] [place] [address]- 8846 Aug, [facility] [place] [facility] [address] [id number] [place] [address]- 8648 Aug, [facility] [place] [facility] [address] [id number] [place] [address]- 4766 Aug, [facility] [place] [facility] [address] [id number] [place] [address]- 8919 Aug, [facility] [place] [facility] [address] [id number] [place] [address] Aug, [facility] [place] [facility] [address] [id number] [place] [address]- 2310 Aug, [facility] [address] [id number] [place] [address]- 9497 Aug, [facility] [place] [facility] [address] [id number] [place] [address]- 5680 Aug, [facility] [place] [facility] [address] [id number] [place] [address]- 2471 Aug, [facility] [place] [facility] [address] [id number] [place] [address]- 6370 Aug, [facility] [place] [facility] [address] [id number] [place] [address]- 0177 Aug, [facility] [place] [facility] [address] [id number] [place] [address]- 0234 Aug, [facility] [place] [facility] [address] [id number] [place] [address]- 2772 Aug, [facility] [place] [facility] [address] [id number] [place] [address]- 6394 Aug, [facility] [place] [facility] [address] [id number] [place] [address]- 1187 Aug, [facility] [place] [facility] [address] [id number] [place] [address]- 5029 Aug, [facility] [place] [address] [id number] [place] [address]- 3913 Aug, [facility] [place] [address] [id number] [place] [address] 3695 Jul, [facility] [place] [facility] [address] [id number] [place] [address]- 1237 Jul, [facility] [place] [facility] [address] [id number] [place] [address]- 8276 Jul, [facility] [place] [address] [id number] [place] [address]- 8538 Jul, [facility] [place] [facility] [address] [id number] [place] [address]- 2214 Jul, [facility] [place] [address] [id number] [place] [address]- 3061 Jul, [facility] [place] [facility] [address] [id number] [place] [address]- 7945 Jun, [facility] [place] [facility] [address] [id number] [place] [address]- 6517 Jun, [facility] [place] [facility] [address] [id number] [place] [address]- 3225 Jun, [facility] [place] [facility] [address] [id number] [place] [address]- 2690 Jun, [facility] [place] [facility] [address] [id number] [place] [address]- 5900 Jun, [facility] [address] [id number] [place] [address]- 9871 Jun, [facility] [place] [address] [id number] [place] [address]- 4843 Jun, [facility] [place] [address] [id number] [place] [address]- 5105 Jun, [facility] [address] [facility] [id number] [place] [address]- 4600 Jun, [facility] [address] [id number] [place] [address]- 3103 Jun, [facility] [address] [id number] [place] [address] 5793 May, [facility] [address] [id number] [place] [address]- 4733 May, [facility] [address] [facility] [id number] [place] [address]- 1265 May, [facility] [address] [facility] [id number] [place] [address]- 5214 May, [facility] [address] [id number] [place] [address]- 9231 May, 2012 [facility] [address] [id number] [place] [address]- 1206 24 May, 2013 [facility] [address] [id number] [place] [address]- 8305 24 May, 2013 [facility] [address] [id number] [place] [address]- 9486 22 May, 2013 [facility] [address] [id number] [place] [address]- 6630 May, [facility] [address] [id number] [place] [address]- 4631 May, [facility] [address] [id number] [place] [address]- 2795 17 May, 2013 [facility] [address] [id number] [place] [address]- 3956 16 May, 2013 [facility] [address] [id number] [place] [address]- 6143 16 May, 2013 [facility] [address] [id number] [place] [address]- 7788 16 May, 2013 [facility] [address] [id number] [place] [address]- 2737 16 May, 2013 [facility] [address] [id number] [place] [address]- 7848 24 Apr, 2013 [facility] [address] [id number] [place] [address]- 1257 23 Apr, 2013 [facility] [address] [id number] [place] [address]- 4000 Apr, [facility] [address] [id number] [place] [address]- 4972 Mar, [facility] [address] [id number] [place] [address]- 0407 Mar, [facility] [address] [id number] [place] [address]- 7675 Mar, [facility] [address] [id number] [place] [address]- 6003 Mar, [facility] [address] [id number] [place] [address]- 2500 Mar, [facility] [address] [id number] [place] [address]- 0149 Mar, [facility] [address] [id number] [place] [address]- 1952 Feb, [facility] [address] [id number] [place] [address]- 5987 Feb, [facility] [address] [id number] [place] [address]- 4028 Feb, [facility] [address] [id number] [place] [address]- 9415 Feb, [facility] [facility] [address] [id number] [place] [address]- 7445 Feb, [facility] [address] [id number] [place] [address]- 7370 Feb, [facility] [address] [id number] [place] [address]- 6570 Feb, [facility] [address] [id number] [place] [address]- 8726 Feb, [facility] [address] [id number] [place] [address]- 4857 Feb, [facility] [address] [id number] [place] [address]- 3843 Feb, [facility] [address] [id number] [place] [address]- 8869 Jan, [facility] [address] [id number] [place] [address]- 8179 Jan, [facility] [address] [id number] [place] [address]- 3533 Jan, [facility] [address] [id number] [place] [address]- 5812 Jan, [facility] [address] [id number] [place] [address]- 4682 December, [facility] [address] [id number] [place] [address]- 4898 December, [facility] [address] [id number] [place] [address]- 3418 December, [facility] [address] [id number] [place] [address]- 1391 Nov, [facility] [address] [id number] [place] [address]- 3891 Nov, [facility] [address] [id number] [place] [address]- 3723 Nov, [facility] [address] [id number] [place] [address]- 4429 Nov, [facility] [address] [id number] [place] [address]- 3224 Nov, [facility] [address] [id number] [place] [address]- 0450 Nov, [facility] [address] [id number] [place] [address]- 6613 Oct, [facility] [address] [id number] [place] [address]- 8999 Oct, [facility] [address] [id number] [place] [address]- 9158 Oct, [facility] [address] [id number] [place] [address]- 2662 Sep, [facility] [address] [id number] [place] [address]- 3838 Sep, [facility] [address] [id number] [place] [address]- 5846 Sep, [facility] [address] [id number] [place] [address]- 8368 Aug, [facility] [address] [id number] [place] [address]- 1440 Aug, [facility] [address] [id number] [place] [address]- 4580 Aug, [facility] [address] [id number] [place] [address]- 5707 Aug, [facility] [facility] [address] [id number] [place] [address]- 5941 Jul, [facility] [place] [facility] [address] [id number] [place] [address]- 4343 Jul, [facility] [address] [id number] [place] [address]- 2210 Jul, [facility] [address] [id number] [place] [address]- 7484 Jul, [facility] [address] [id number] [place] [address]- 0165 Jun, [facility] [address] [id number] [place] [address]- 1454 Jun, [facility] [address] [id number] [place] [address] 2545 Jun, [facility] [place] [facility] [address] [id number] [place] [address]- 0559 Jun, [facility] [place] [facility] [address] [id number] [place] [address]- 9892 Jun, [facility] [address] [id number] [place] [address]- 1629 05 Jun, 2012 [facility] [facility] [address] [id number] [place] [address]- 7956 02 Jun, 2012 [facility] [place] [facility] [address] [id number] [place] [address]- 9323 02 Jun, 2012 [facility] [place] [facility] [address] [id number] [place] [address]- 8776 30 May, 2012 [facility] [place] [facility] [address] [id number] [place] [address]- 0764 30 May, 2012 [facility] [address] [id number] [place] [address], [place] [address]- 5202 18 May, 2012 [facility] [address] [id number] [place] [address]- 0606 18 May, 2012 [facility] [address] [facility] [id number] [place] [address]- 8354 2012 [facility] [facility] [address] [id number] [place] [address]- 1243 13 May, 2012 [facility] [address] [facility] [id number] [place] [address]- 9283 11 May, 2012 [facility] [address] [facility] [id number] [place] [address]- 4170 11 May, 2012 [facility] [address] [id number] [place] [address]- 0699 10 May, 2012 [facility] [place] [facility] [address] [id number] [place] [address]- 3858 08 May, 2012 [facility] [address] [id number] [place] [address]- 9817 24 Apr, 2012 [facility] [place] [facility] [address] [id number] [place] [address]- 2253 19 Sep2011 [facility] [facility] [address] [facility] [id number] [place] [address]- 3764 18 Apr, 2012 [facility] [place] [address] [id number] [place] [address]- 5756 17 Apr, 2012 [facility] [place] [facility] [address] [id number] [place] [address]- 9926 16 Apr, 2012 [facility] [place] [facility] [address] [id number] [place] [address] 2546 10 Apr, 2012 [facility] [place] [facility] [address] [id number] [place] [address]- 6096 29 Mar, 2012 [facility] [place] [facility] [address] [id number] [place] [address]- 9764 Mar, [facility] [place] [facility] [address] [id number] [place] [address]- 7849 Mar, [facility] [place] [facility] [address] [id number] [place] [address]- 1247 Mar, [facility] [place] [facility] [address] [id number] [place] [address]- 6309 Mar, [facility] [place] [facility] [address] [id number] [place] [address]- 2367 Mar, [facility] [place] [facility] [address] [id number] [place] [address]- 1426 Feb, [facility] [place] [facility] [address] [id number] [place] [address]- 7461 Feb, [facility] [place] [facility] [address] [id number] [place] [address]- 9906 Feb, [facility] [place] [facility] [address] [id number] [place] [address]- 1033 17 Feb, 2012 [facility] [place] [facility] [address] [id number] [place] [address] 2546 Feb, [facility] [place] [facility] [address] [id number] [place] [address] 2546 Feb, [facility] [place] [facility] [address] [id number] [place] [address]- 4842 Feb, [facility] [place] [facility] [address] [id number] [place] [address]- 5276 Feb, [facility] [place] [facility] [address] [id number] [place] [address]- 3670 Feb, [facility] [place] [facility] [address] [id number] [place] [address]- 1632 Jan, [facility] [place] [facility] [address] [id number] [place] [address]- 9790 Jan, [facility] [place] [facility] [address] [id number] [place] [address]- 9499 Jan, [facility] [place] [facility] [address] [id number] [place] [address]- 5605 Jan, [facility] [place] [facility] [address] [id number] [place] [address]- 3475 Jan, [facility] [place] [facility] [address] [id number] [place] [address]- 3144 Jan, [facility] [place] [facility] [address] [id number] [place] [address]- 4288 Jan, [facility] [place] [facility] [address] [id number] [place] [address]- 5111 Jan, [facility] [place] [facility] [address] [id number] [place] [address]- 9414 Jan, [facility] [place] [facility] [address] [id number] [place] [address]- 4147 December, [facility] [place] [facility] [address] [id number] [place] [address]- 1521 December, [facility] [place] [facility] [address] [id number] [place] [address]- 8058 December, [facility] [place] [facility] [address] [id number] [place] [address]- 1480 December, [facility] [place] [facility] [address] [id number] [place] [address]- 7041 December, [facility] [address] [id number] [place] [address]- 3440 December, [facility] [address] [id number] [place] [address]- 8036 December, [facility] [address] [id number] [place] [address]- 3955 December, [facility] [address] [id number] [place] [address]- 3559 December, [facility] [address] [id number] [place] [address]- 4512 December, [facility] [address] [id number] [place] [address]- 3018 Nov, [facility] [address] [id number] [place] [address]- 0418 Nov, [facility] [address] [id number] [place] [address]- 7880 Nov, [facility] [place] [facility] [address] [id number] [place] [address]- 0060 Nov, [facility] [address] [id number] [place] [address]- 5577 16 Nov, 2011 [facility] [facility] [address] [id number] [place] [address]- 9125 13 Nov, 2011 [facility] [address] [id number] [place] [address]- 2842 Nov, [facility] [place] [facility] [address] [id number] [place] [address]- 2130 06 Nov, 2011 [facility] [place] [facility] [address] [id number] [place] [address]- 7131 05 Nov, 2011 [facility] [place] [facility] [address] [id number] [place] [address]- 1773 Nov, [facility] [place] [facility] [address] [id number] [place] [address]- 0017 30 Oct, 2011 [facility] [address] [id number] [place] [address]- 5503 29 Oct, 2011 [facility] [address] [id number] [place] [address]- 0556 23 Oct, 2011 [facility] [place] [facility] [address] [id number] [place] [address]- 9616 23 Oct, 2011 [facility] [address] [id number] [place] [address]- 7775 21 Oct, 2011 [facility] [address] [id number] [place] [address]- 6429 20 Oct, 2011 [facility] [address] [id number] [place] [address]- 0809 19 Oct, 2011 [facility] [address] [id number] [place] [address]- 5865 19 Oct, 2011 [facility] [address] [id number] [place] [address]- 2956 16 Oct, 2011 [facility] [address] [id number] [place] [address] 14 Oct, 2011 [facility] [place] [facility] [address] [id number] [place] [address] 14 Oct, 2011 [facility] [place] [facility] [address] [id number] [place] [address] 09 Oct, 2011 [facility] [place] [facility] [address] [id number] [place] [address] 26[address] 08 Oct, 2011 [facility] [place] [facility] [address] [id number] [place] [address] 06 Oct, 2011 [facility] [place] [facility] [address] [id number] [place] [address] 02 Oct, 2011 [facility] [place] [facility] [address] [id number] [place] [address] 1496 28 Sep, 2011 [facility] [address] [id number] [place] [address] 2546 24 Sep, 2011 [facility] [place] [facility] [address] [id number] [place] [address] 2546 20 Sep, 2011 [facility] [place] [facility] [address] [id number] [place] [address]- 1556 17 Sep, 2011 [facility] [place] [facility] [address] [id number] [place] [address] 2546 16 Sep, 2011 [facility] [address] [id number] [place] [address] 1996 14 Sep, 2011 [facility] [place] [facility] [address] [id number] [place] [address] 2546 13 Sep, 2011 [facility] [address] [id number] [place] [address] 1446 10 Sep, 2011 [facility] [address] [id number] [place] [address]- 6145 06 Sep, 2011 [facility] [address] [id number] [place] [address] 29[address] 03 Sep, 2011 [facility] [address] [id number] [place] [address] 119[address] Sep, [facility] [address] [id number] [place] [address] 2546 Aug, [facility] [place] [facility] [address] [id number] [place] [address] 2546 Aug, [facility] [place] [facility] [address] [id number] [place] [address] Aug, [facility] [place] [facility] [address] [id number] [place] [address] Aug, [facility] [place] [facility] [address] [id number] [place] [address]44 Aug, [facility] [address] [id number] [place] [address]858 17 Aug, 2011 [facility] [place] [facility] [address] [id number] [place] [address]- 0016 17 Aug, 2011 [facility] [place] [facility] [address] [id number] [place] [address] 3816 17 Aug, 2011 [facility] [place] [facility] [address] [id number] [place] [address]- 7960 16 Aug, 2011 [facility] [address] [id number] [place] [address] 0389 13 Aug, 2011 [facility] [place] [facility] [address] [id number] [place] [address]- 5297 Aug, [facility] [place] [facility] [address] [id number] [place] [address] 1689 Aug, [facility] [address] [id number] [place] [address] 2834 Aug, [facility] [place] [facility] [address] [id number] [place] [address] 8969 Aug, [facility] [place] [facility] [address] [id number] [place] [address]228 Aug, [facility] [place] [facility] [address] [id number] [place] [address] Aug, [facility] [place] [facility] [address] [id number] [place] [address] Aug, [facility] [place] [facility] [address] [id number] [place] [address] Jul, [facility] [place] [facility] [address] [id number] [place] [address] 3746 Jul, [facility] [place] [facility] [address] [id number] [place] [address] 4[address] Jul, [facility] [place] [facility] [address] [id number] [place] [address] Jul, [facility] [address] [place] [address] Jul, [facility] [id number] [place] [address] Jul, [facility] [id number] [place] [address] 17 Jul, 2011 [facility] [id number] [place] [address] 16 Jul, 2011 [facility] [id number] [place] [address]- [address] Jul, [facility] [id number] [place] [address]- [address]64 Jul, [facility] [id number] [place] [address]- [address] Jul, [facility] [id number] [place] [address] Jun, [facility] [address] [place] [address] Jun, [facility] [id number] [place] [address] Jun, IMMUNIZATIONS No Known Immunizations SOCIAL HISTORY Never Assessed REASON FOR VISIT Annual physical (female)--ABoggsLaura PLAN OF CARE Activity Details Follow Up prn Reason: VITAL SIGNS Height 61 in 2017-04-02 Weight 99.1 lbs 2017-04-02 Temperature 97.9 degrees Fahrenheit 2017-04-02 Heart Rate 64 bpm 2017-04-02 Respiratory Rate 18 2017-04-02 BMI 18.72 kg/m2 2017-04-02 Blood pressure systolic 92 mmHg 2017-04-02 Blood pressure diastolic 60 mmHg 2017-04-02 MEDICATIONS Medication Instructions Dosage Frequency Start Date End Date Duration Status Ativan 0.5 MG Orally Once a day 1 tablet as needed 24h December, 28 days Active Aldactone 50 MG 1 Tablet by Oral route 24h 90 Active Oxycodone HCl 5 MG Orally Once a day 1 tablet at bedtime 24h 07 Mar, 2017 28 days Active Aciphex 20 mg Orally Once a day 1 tablet 24h 30 Active Folic Acid 1 MG TAKE ONE TABLET BY MOUTH ONCE DAILY 90 Active Nadolol 40 mg Orally Once a day 0.5 tablet 24h 30 Active RESULTS Name Result Date Reference Range PDF Report 2017-04-02 PDF Report1 LCLS PAP TEST W/ HPV REGARDLESS 2017-04-02 DIAGNOSIS: Specimen adequacy: Clinician provided ICD10: Performed by: . . Note: HPV, high-risk Negative Negative Mammogram, Bilateral Screening 2017-04-12 PROCEDURES Procedure Date Ordered Result Body Site SPECIMEN HANDLING Apr 02, 2017 INSTRUCTIONS MEDICATIONS ADMINISTERED No Known Medications MEDICAL [...]
--- OUTSIDE RECORDS SUMMARY | 2018-08-05 03:33 | XMS REPORT ---
Author Author HEATHER FINE Organization [facility] Address [address] [place] [address] Care Team Providers Care Batch Mixer Operator Name Role Phone HEATHER FINE Unavailable PROBLEMS Type Condition ICD9-CM Code XOA14-MQ Code Onset Dates Condition Status SNOMED Code Problem Unspecified cirrhosis of liver K74.60 Active 694548854 Problem Lymphocytosis D72.820 Active 70080477 Problem Secondary esophageal varices with bleeding I85.11 Active 74016927 Problem Anxiety F41.9 Active 34834667 Problem Asthma J45.909 Active 784379680 Problem Chronic back pain M54.9 Active 987749559 Problem Dysthymia F34.1 Active 13595707 Problem Thrombocytosis D47.3 Active 1882604 Problem Splenomegaly R16.1 Active 45893369 Problem 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 Active 681927273 Problem History of hepatitis C Z86.19 Active [id number] ALLERGIES No Information SOCIAL HISTORY Never Assessed PLAN OF CARE VITAL SIGNS MEDICATIONS Unknown Medications RESULTS No Results PROCEDURES No Known procedures IMMUNIZATIONS No Known Immunizations MEDICAL (GENERAL) HISTORY Type Description Date Medical History Asthma Medical History Anxiety Medical History Chronic pain Medical History Thrombocytenpia Medical History Unspecified cirrhosis of liver Surgical History EGD-check veins if had in bleeding per Dr. Lucille chambers 2 Surgical History oral surgery 10/2016 Hospitalization History GI Bleed
--- OUTSIDE RECORDS SUMMARY | 2018-08-05 03:33 | XMS REPORT ---
Author MIKE Acuna [facility] eClinicalWorks Address Unknown Phone Unavailable Care Team Providers Care Needle Loom Operator Name Role Phone MIKE AGUILAR CP Unavailable Allergies No Known Allergies Problems Problem Type Condition Code Onset Dates Condition Status Problem Unspecified thrombocytopenia 287.5 Active Problem Anxiety state, unspecified 300.00 Active Problem Asthma, unspecified, unspecified status 493.90 Active Assessment Encounter for immunization Z23 Active Problem Lumbago 724.2 Active Problem Esophageal varices without mention of bleeding 456.1 Active Medications No Known Medications Procedures Procedure Coding System Code Date SINGLE IMMUNIZATION ADMIN CPT-4 66545 May 19, 2015 FLUARIX QUAD (3 & UP)-GSK-2014 CPT-4 59000 May 19, 2015 Results No Known Results Immunizations Vaccine Administration Date FLUARIX QUAD (3 & UP)-GSK-2014May 19, 2015 Summary Purpose eClinicalWorks Submission
--- OUTSIDE RECORDS SUMMARY | 2018-08-05 03:33 | XMS REPORT ---
Author Author HEATHER FINE Organization [facility] Address [address] [place] [address] Care Team Providers Care Thread Pulling Machine Attendant Name Role Phone HEATHER FINE Unavailable PROBLEMS Type Condition ICD9-CM Code MED09-ZQ Code Onset Dates Condition Status SNOMED Code Problem Unspecified cirrhosis of liver K74.60 Active 314681676 Problem Lymphocytosis D72.820 Active 42656443 Problem Secondary esophageal varices with bleeding I85.11 Active 05625884 Problem Anxiety F41.9 Active 17487115 Problem Asthma J45.909 Active 442440381 Problem Chronic back pain M54.9 Active 987467911 Problem Dysthymia F34.1 Active 78052348 Problem Thrombocytosis D47.3 Active 2303260 Problem Splenomegaly R16.1 Active 91135162 Problem 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 Active 303592761 Problem History of hepatitis C Z86.19 Active [id number] ALLERGIES No Information ENCOUNTERS Encounter Location Date Diagnosis [facility] [id number] [place] [address] 11650- 7959 Nov, Chronic back pain M54.9 and Anxiety F41.9 [facility] [id number] [place] [address] 66344- 7726 Oct, Chronic back pain M54.9 and Anxiety F41.9 [facility] [id number] [place] [address] 02902- 9603 Oct, [facility] [address] 11222- 9230 Sep, Chronic back pain M54.9 ; Anxiety F41.9 ; Pain of left leg M79.605 and Pain in right leg M79.604 [place] [address] 15590- 9072 Sep, Anxiety F41.9 and Chronic back pain M54.9 [facility] [id number] [place] [address] 44084- 5888 Sep, [facility] [id number] [place] [address] 61163- 2860 Aug, Anxiety F41.9 [facility] [address] 30414- 0667 Jul, Anxiety F41.9 [facility] [address] 59927- 1661 Jul, [facility] [id number] [place] [address] 90091- 8705 Jul, Viral syndrome B34.9 ; Chronic back pain M54.9 and Dysuria R30.0 [facility] [id number] [place] [address] 13747- 3033 Jun, [facility] [id number] [place] [address] 93344- 7563 Jun, Anxiety F41.9 [facility] [id number] [place] [address] 45818 -5299 Jun, Dysuria R30.0 and Acute cystitis without hematuria N30.00 [facility] [id number] [place] [address] 95402- 1880 Jun, [facility] [id number] [place] [address] 45064- 6456 May, Anxiety F41.9 [facility] [id number] [place] [address] 17103- 4207 May, Anxiety F41.9 [facility] [id number] [place] [address] 42522- 8241 Apr, [facility] [id number] [place] [address] 09666- 7883 Apr, Chronic back pain M54.9 and Anxiety F41.9 [facility] [address], [place] [address] 7299 Mar, [facility] [id number] [address]- 6048 Mar, [facility] [address] [place] [address] 95285- 0738 Mar, Well woman exam Z01.419 ; Cervical cancer screening Z12.4 ; Breast cancer screening Z12.31 and Colon cancer screening Z12.11 [facility] [address] [place] [address] 59499- 6570 Mar, Chronic back pain M54.9 and Anxiety F41.9 [facility] [id number] [address] 1996 Mar, [facility] [id number] [place] [address] 79585- 9564 Feb, Chronic back pain M54.9 and Anxiety F41.9 [facility] [id number] [place] [address] 41045- 2278 Feb, [facility] [id number] [place] [address] 99569- 2788 Feb, [facility] [address], [place] [address]- 2893 Jan, Chronic back pain M54.9 and Anxiety F41.9 [facility] [address], [place] [address]- 7232 Jan, [facility] [id number] [place] [address] 59304- 3500 Jan, [facility] [id number], [place] [address]- 1618 December, Chronic back pain M54.9 and Anxiety F41.9 [facility] [id number] [place] [address] 11045- 9851 Nov, Chronic back pain M54.9 and Anxiety F41.9 [facility] [id number] [place] [address] 65446- 5496 Oct, Chronic back pain M54.9 and Anxiety F41.9 [facility] [id number] [place] [address] 18173- 3986 Oct, Chronic back pain M54.9 [facility] [id number] [place] [address] 12433- 4508 Sep, Anxiety F41.9 and Chronic back pain M54.9 [facility] [id number] [place] [address] 17403- 3384 Aug, Anxiety F41.9 and Chronic back pain M54.9 [facility] [id number] [place] [address] 13173- 7790 Aug, [facility] [id number] [place] [address] 47137- 5834 Jul, Chronic back pain M54.9 and Anxiety F41.9 [facility] [id number] [place] [address] 13009- 5279 Jul, Anxiety F41.9 and Chronic back pain M54.9 [facility] [id number] [id number] Jul, [facility] [address] [place] [address] 62485- 3582 Jul, Anxiety F41.9 [facility] [address] [place] [address] 62648- 4747 Jul, Anxiety F41.9 and Dysuria R30.0 [facility] [address] [place] [address] 61804- 1598 Jul, Chronic back pain M54.9 and Anxiety F41.9 [facility] [id number] [place] [address] 53244- 6546 Jun, Chronic back pain M54.9 [facility] [id number] [place] [address] 29087- 0906 Jun, Chronic back pain M54.9 [facility] [address] [facility] [id number] [address] 2546 May, Anxiety F41.9 [facility] [address] [facility] [id number] [place] [address] 53471 2546 May, Chronic back pain M54.9 [facility] [address] [facility] [id number] [place] [address] 71938- 9266 Apr, [facility] [address] [facility] [id number] [place] [address] 63091- 7236 Apr, [facility] [address] [facility] [id number] [place] [address] 33759- 1266 Apr, [facility] [address] [facility] [id number] [place] [address] 52266 2545 Apr, Chronic back pain M54.9 [facility] [address] [facility] [id number] [place] [address] 71795- 8457 Mar, Chronic back pain M54.9 [facility] [address] [facility] [id number] [place] [address] 02926- 4015 Feb, Grief F43.20 [facility] [address] [facility] [id number] [place] [address] 86464- 3684 Feb, Chronic back pain M54.9 and Anxiety F41.9 [facility] [address] [facility] [id number] [address]- 1296 Feb, Chronic back pain M54.9 [facility] [address] [facility] [id number] [place] [address] 78073- 2076 Jan, Chronic back pain M54.9 [facility] [address] [facility] [id number] [place] [address] 72816- 2575 December, [facility] [id number] [place] [address] 85514- 5993 December, Grief F43.20 [facility] [id number] [place] [address] 14563- 0828 Nov, [facility] [id number] [place] [address] 43963- 8310 Oct, Cervicalgia M54.2 ; Secondary esophageal varices with bleeding I85.11 and Mouth pain K13.79 [facility] [id number] [place] [address] 67787- 6569 Oct, [facility] [id number] [place] [address] 43531- 1504 Oct, [facility] [id number] [place] [address] 06875- 6490 Sep, [facility] [id number] [place] [address] 42835- 0106 Sep, Acute maxillary sinusitis, recurrence not specified J01.00 [facility] [id number] [place] [address] 10698- 9010 Aug, [facility] [id number] [place] [address] 91287- 4773 Aug, [facility] [id number] [place] [address] 24713- 5652 Aug, Dysuria R30.0 and Chronic back pain M54.9 [facility] [id number] [place] [address] 95959- 1726 Jul, [facility] [id number] [place] [address] 62783- 6486 Jul, [facility] [id number] [place] [address] 36709- 3167 10 Jul, 2015 [facility] [id number] [place] [address] 00288- 7532 Jul, Chronic back pain M54.9 [facility] [address] [place] [address] 29742- 7582 Jul, Dysthymia F34.1 and Chronic back pain M54.9 [facility] [id number] [place] [address] 15426- 7388 Jun, [facility] [address] 87724- 7239 Jun, [facility] [id number] [place] [address] 49744- 6804 May, [facility] [id number] [place] [address] 28311- 2106 May, [facility] [id number] [place] [address] 55810- 1333 May, [facility] [id number] [place] [address] 99457- 0617 May, Encounter for immunization Z23 [facility] [id number] [place] [address] 64739- 7054 Apr, [facility] [id number] [place] [address] 73173- 4921 Apr, [facility] [address] [place] [address] 63656- 5361 Mar, [facility] [id number] [place] [address] 66850- 0077 Mar, Back pain 724.5 [facility] [id number] [place] [address] 96847- 1091 Mar, Cough 786.2 and Back pain 724.5 [facility] [id number] [place] [address] 15748- 1570 Mar, [facility] [id number] [place] [address] 95980- 1090 Mar, [facility] [place] [facility] [address] [id number] [place] [address]- 9261 December, [facility] [place] [facility] [address] [id number] [place] [address]- 3141 December, [facility] [place] [facility] [address] [id number] [place] [address]- 0661 Nov, [facility] [place] [facility] [address] [id number] [place] [address]- 8287 Nov, [facility] [place] [facility] [address] [id number] [place] [address]- 0942 Oct, [facility] [place] [facility] [address] [id number] [place] [address]- 4875 Oct, [facility] [place] [facility] [address] [facility] [id number] [place] [address]- 0918 Sep, [facility] [place] [facility] [address] [id number] [place] [address]- 3649 Sep, [facility] [place] [facility] [address] [id number] [place] [address]- 5630 Sep, [facility] [place] [facility] [address] [facility] [id number] [place] [address]- 0635 Sep, [facility] [place] [facility] [address] [id number] [place] [address]- 9452 Sep, [facility] [place] [facility] [address] [id number] [place] [address]- 1845 Sep, [facility] [place] [facility] [address] [id number] [place] [address]- 8708 Sep, [facility] [place] [facility] [address] [id number] [place] [address]- 6367 Sep, [facility] [place] [facility] [address] [facility] [id number] [place] [address]- 4854 Aug, [facility] [place] [facility] [address] [id number] [place] [address]- 4087 14 Aug, 2014 [facility] [address] [id number] [place] [address]- 1125 14 Aug, 2014 [facility] [place] [facility] [address] [id number] [place] [address]- 6932 13 Aug, 2014 [facility] [place] [facility] [address] [id number] [place] [address]- 2767 13 Aug, 2014 [facility] [place] [facility] [address] [id number] [place] [address]- 3515 12 Aug, 2014 [facility] [place] [facility] [address] [id number] [place] [address]- 3880 Aug, [facility] [place] [facility] [address] [id number] [place] [address]- 5513 Jul, [facility] [address] [id number] [place] [address]- 5525 Jul, [facility] [place] [facility] [address] [id number] [place] [address]- 7854 Jul, [facility] [place] [facility] [address] [id number] [place] [address]- 4598 Jul, [facility] [place] [facility] [address] [id number] [place] [address]- 6525 15 Jul, 2014 [facility] [place] [facility] [address] [id number] [place] [address]- 6414 Jul, [facility] [place] [facility] [address] [id number] [place] [address]- 9467 Jul, [facility] [place] [facility] [address] [id number] [place] 8285 Jul, [facility] [place] [facility] [address] [id number] [place] [address]- 1111 Jun, [facility] [place] [facility] [address] [id number] [place] [address]- 4912 Jun, [facility] [place] [facility] [address] [id number] [place] [address]- 2729 Jun, [facility] [place] [facility] [address] [id number] [place] 0099 Jun, [facility] [place] [facility] [address] [id number] [place] [address]- 1047 Jun, [facility] [place] [facility] [address] [id number] [place] [address]- 4683 Jun, [facility] [place] [facility] [address] [id number] [place] [address]- 7535 Jun, [facility] [place] [facility] [address] [id number] [place] [address]- 7939 May, [facility] [place] [facility] [address] [id number] [place] [address]- 6941 May, [facility] [place] [facility] [address] [id number] [place] [address]- 4460 May, [facility] [place] [facility] [address] [id number] [place] [address]- 4076 May, [facility] [place] [facility] [address] [id number] [place] [address]- 1307 May, [facility] [place] [facility] [address] [id number] [place] [address]- 5506 2014 [facility] [place] [facility] [address] [id number] [place] [address] 1963 2014 [facility] [place] [facility] [address] [id number] [place] [address]- 2115 2014 [facility] [place] [facility] [address] [id number] [place] [address]- 2155 13 May, 2014 [facility] [place] [facility] [address] [id number] [place] [address]- 2132 13 May, 2014 [facility] [place] [facility] [address] [id number] [place] [address]- 9138 May, [facility] [place] [facility] [address] [id number] [place] [address]- 4891 May, [facility] [place] [facility] [address] [id number] [place] [address]- 9491 May, [facility] [place] [facility] [address] [id number] [place] [address]- 4946 May, [facility] [place] [facility] [address] [id number] [place] [address]- 3533 Apr, [facility] [place] [facility] [address] [id number] [place] [address]- 1861 Apr, [facility] [place] [facility] [address] [id number] [place] [address]- 5043 Apr, [facility] [place] [facility] [address] [id number] [place] [address]- 7812 Apr, [facility] [place] [facility] [address] [id number] [place] [address]- 0046 Apr, [facility] [place] [facility] [address] [id number] [place] [address]- 0689 Apr, [facility] [place] [facility] [address] [id number] [place] [address]- 5096 Apr, [facility] [place] [facility] [address] [id number] [place] [address]- 8901 Mar, [facility] [place] [facility] [address] [id number] [place] [address]- 0335 Mar, [facility] [place] [facility] [address] [id number] [place] [address]- 3554 Mar, [facility] [place] [facility] [address] [id number] [place] [address]- 3034 Mar, [facility] [place] [facility] [address] [id number] [place] [address]- 3601 Mar, [facility] [place] [facility] [address] [id number] [place] [address]- 2546 Mar, [facility] [place] [facility] [address] [id number] [place] [address]- 2854 Feb, [facility] [place] [facility] [address] [id number] [place] [address]- 5186 Feb, [facility] [place] [facility] [address] [id number] [place] [address]- 1043 Feb, [facility] [place] [facility] [address] [id number] [place] [address]- 9383 Feb, [facility] [place] [facility] [address] [id number] [place] [address]- 7179 Feb, [facility] [place] [facility] [address] [id number] [place] [address]- 5949 Feb, [facility] [place] [facility] [address] [id number] [place] [address]- 8145 Feb, [facility] [address] [id number] [place] [address]- 2348 Feb, [facility] [place] [facility] [address] [id number] [place] [address]- 6603 Jan, [facility] [place] [facility] [address] [id number] [place] [address]- 1148 Jan, [facility] [place] [facility] [address] [id number] [place] [address]- 6773 December, [facility] [place] [facility] [address] [id number] [place] [address]- 6911 December, [facility] [place] [facility] [address] [id number] [place] [address]- 2276 December, [facility] [place] [facility] [address] [id number] [place] [address]- 2546 December, [facility] [place] [facility] [address] [id number] [place] 3743 December, [facility] [place] [facility] [address] [id number] [place] [address]- 9499 December, [facility] [place] [facility] [address] [id number] [place] [address]- 5449 December, [facility] [place] [facility] [address] [id number] [place] [address]- 6456 December, [facility] [place] [facility] [address] [id number] [place] [address]- 0497 December, [facility] [place] [facility] [address] [id number] [place] [address]- 0549 December, [facility] [place] [facility] [address] [id number] [place] [address]- 5581 December, [facility] [place] [facility] [address] [id number] [place] [address]- 6643 December, [facility] [place] [facility] [address] [id number] [place] [address]- 1797 Nov, [facility] [place] [facility] [address] [id number] [place] [address]- 0487 Nov, [facility] [place] [facility] [address] [id number] [place] [address]- 4061 Nov, [facility] [place] [facility] [address] [id number] [place] [address]- 1433 Nov, [facility] [place] [facility] [address] [id number] [place] [address] Nov, [facility] [place] [facility] [address] [id number] [place] [address] Nov, [facility] [place] [facility] [address] [id number] [place] [address] Nov, [facility] [place] [facility] [address] [id number] [place] [address] Nov, [facility] [place] [facility] [address] [id number] [place] [address] Nov, [facility] [place] [facility] [address] [id number] [place] [address] Nov, [facility] [place] [facility] [address] [id number] [place] [address] Nov, [facility] [place] [facility] [address] [id number] [place] [address] Nov, [facility] [place] [facility] [address] [id number] [place] [address] Nov, [facility] [place] [facility] [address] [id number] [place] [address] Oct, [facility] [place] [facility] [address] [id number] [place] [address] Oct, [facility] [place] [facility] [address] [facility] [id number] [place] [address] Sep, [facility] [place] [facility] [address] [id number] [place] [address] Sep, [facility] [place] [facility] [address] [id number] [place] [address] Sep, [facility] [place] [facility] [address] [facility] [id number] [place] [address] Sep, [facility] [place] [facility] [address] [facility] [id number] [place] [address] 24 Sep, 2013 [facility] [place] [facility] [address] [facility] [id number] [place] [address] Sep, [facility] [place] [facility] [address] [facility] [id number] [place] [address] Sep, [facility] [place] [facility] [address] [facility] [id number] [place] [address] 18 Sep, 2013 [facility] [place] [facility] [address] [id number] [place] [address] Sep, [facility] [place] [facility] [address] [id number] [place] [address] Sep, [facility] [place] [facility] [address] [id number] [place] [address] Sep, [facility] [place] [facility] [address] [id number] [place] [address] Sep, [facility] [place] [facility] [address] [id number] [place] [address] Aug, [facility] [place] [facility] [address] [id number] [place] [address] Aug, [facility] [place] [facility] [address] [id number] [place] [address] Aug, [facility] [place] [facility] [address] [id number] [place] [address] Aug, [facility] [place] [facility] [address] [id number] [place] [address] Aug, [facility] [place] [facility] [address] [id number] [place] [address] Aug, [facility] [place] [facility] [address] [id number] [place] [address] Aug, [facility] [place] [facility] [address] [id number] [place] [address] 288[address] Aug, [facility] [place] [facility] [address] [id number], [place] [address] Aug, [facility] [place] [facility] [address] [id number] [place] [address] 4[address] Aug, [facility] [place] [facility] [address] [id number] [place] [address] Aug, [facility] [place] [facility] [address] [id number] [place] [address] Aug, [facility] [place] [facility] [address] [id number] [place] [address] 13 Aug, 2013 [facility] [address] [id number] [place] [address] 13 Aug, 2013 [facility] [place] [facility] [address] [id number] [place] [address] Aug, [facility] [address] [id number] [place] [address] Aug, [facility] [place] [facility] [address] [id number] [place] [address] 29[address] Aug, [facility] [address] [id number] [place] [address] 1438 Aug, [facility] [address] [id number] [place] [address] Aug, [facility] [address] [id number] [place] [address] Aug, [facility] [address] [id number] [place] [address] Aug, [facility] [place] [facility] [address] [id number] [place] [address] Aug, [facility] [address] [id number] [place] [address] Aug, [facility] [address] [id number] [place] [address] 00[address] Jul, [facility] [place] [facility] [address] [id number] [place] [address] 3965 Jul, [facility] [place] [facility] [address] [id number] [place] [address] Jul, [facility] [place] [facility] [address] [id number] [place] [address] Jul, [facility] [place] [facility] [address] [id number] [place] [address] Jul, [facility] [place] [facility] [address] [id number] [place] [address] Jul, [facility] [place] [facility] [address] [id number] [place] [address] Jun, [facility] [place] [facility] [address] [id number] [place] [address]- [address] Jun, [facility] [place] [facility] [address] [id number] [place] [address] 0[address] Jun, [facility] [place] [facility] [address] [id number] [place] [address] Jun, [facility] [place] [facility] [address] [id number] [place] [address] Jun, [facility] [place] [facility] [address] [id number] [place] [address] Jun, [facility] [place] [facility] [address] [id number] [place] [address] 8243 Jun, [facility] [place] [facility] [address] [id number] [place] [address] 6673 Jun, [facility] [place] [facility] [address] [id number] [place] [address] 2327 Jun, [facility] [place] [facility] [address] [id number] [place] [address] 4361 Jun, [facility] [place] [facility] [address] [id number], [place] [address] May, [facility] [place] [facility] [address] [id number] [place] [address] 3555 May, [facility] [place] [facility] [address] [id number] [place] [address] 9152 May, [facility] [place] [facility] [address] [id number] [place] [address] 6555 May, [facility] [place] [facility] [address] [id number], [place] [address] 84[address] May, [facility] [place] [facility] [address] [id number] [place] [address] 4797 24 May, 2013 [facility] [place] [facility] [address] [id number] [place] [address] 0476 24 May, 2013 [facility] [place] [facility] [address] [id number] [place] [address]- 6242 May, [facility] [place] [facility] [address] [id number] [place] [address] 6754 May, [facility] [place] [facility] [address] [id number] [place] [address] 9192 May, [facility] [place] [facility] [address] [id number] [place] [address] 3820 17 May, 2013 [facility] [place] [facility] [address] [id number] [place] [address]- 2727 16 May, 2013 [facility] [place] [facility] [address] [id number] [place] [address]- 4228 16 May, 2013 [facility] [place] [facility] [address] [id number] [place] [address]- 6492 16 May, 2013 [facility] [place] [facility] [address] [id number] [place] [address]- 4294 16 May, 2013 [facility] [place] [facility] [address] [id number], [place] [address] 2369 24 Apr, 2013 [facility] [place] [facility] [address] [id number] [place] [address]- 8351 23 Apr, 2013 [facility] [place] [facility] [address] [id number] [place] [address]- 3783 Apr, [facility] [place] [facility] [address] [id number] [place] [address] 6399 Mar, [facility] [place] [facility] [address] [id number] [place] [address]- 9455 Mar, [facility] [place] [facility] [address] [id number] [place] [address] 6216 Mar, [facility] [address] [id number] [place] [address] 3411 Mar, [facility] [place] [facility] [address] [id number] [place] [address]- 4823 Mar, [facility] [address] [id number] [place] [address] 6387 Mar, [facility] [address] [id number] [place] [address] 4767 Feb, [facility] [address] [id number] [place] [address] 4559 Feb, [facility] [address] [id number] [place] [address] 4307 Feb, [facility] [address] [id number] [place] [address] 5719 Feb, [facility] [address] [id number] [place] [address]- 5900 Feb, [facility] [address] [id number] [place] [address]- 9852 Feb, [facility] [address] [id number] [place] [address]- 0257 Feb, [facility] [place] [facility] [address] [id number] [place] [address] 4498 Feb, [facility] [address] [id number] [place] [address] 1810 Feb, [facility] [place] [facility] [address] [id number] [place] [address] 4087 Feb, [facility] [place] [facility] [address] [id number] [place] [address] 0802 Jan, [facility] [place] [facility] [address] [id number] [place] [address] 7977 Jan, [facility] [address] [id number] [place] [address]- 0374 Jan, [facility] [place] [facility] [address] [id number] [place] [address]- 9694 Jan, [facility] [address] [id number] [place] [address]- 8749 December, [facility] [place] [facility] [address] [id number] [place] [address]- 2207 December, [facility] [address] [id number] [place] [address] December, [facility] [place] [facility] [address] [id number] [place] [address]- 7328 Nov, [facility] [place] [facility] [address] [id number] [place] [address]- 1822 Nov, [facility] [address] [id number] [place] [address]- 6642 Nov, [facility] [place] [facility] [address] [id number] [place] [address]- 6420 Nov, [facility] [place] [facility] [address] [id number] [place] [address]- 6642 Nov, [facility] [place] [facility] [address] [id number] [place] [address]- 3262 Nov, [facility] [place] [facility] [address] [id number] [place] [address]- 5466 Oct, [facility] [place] [facility] [address] [id number] [place] [address]- 9753 Oct, [facility] [place] [facility] [address] [id number] [place] [address]- 7003 Oct, [facility] [place] [facility] [address] [id number] [place] [address]- 0558 Sep, [facility] [place] [facility] [address] [id number] [place] [address]- 3590 Sep, [facility] [address] [id number] [place] [address]- 7052 Sep, [facility] [place] [facility] [address] [id number] [place] [address]- 3898 Aug, [facility] [place] [facility] [address] [id number] [place] [address]- 6145 Aug, [facility] [place] [facility] [address] [id number] [place] [address]- 7223 Aug, [facility] [place] [facility] [address] [id number] [place] [address]- 2917 Aug, [facility] [place] [facility] [address] [id number] [place] [address]- 9362 Jul, [facility] [address] [id number] [place] [address] Jul, [facility] [place] [facility] [address] [id number] [place] [address]- 7460 Jul, [facility] [place] [facility] [address] [id number] [place] [address]- 3868 Jul, [facility] [place] [facility] [address] [facility] [id number] [place] [address]- 2320 Jun, [facility] [place] [facility] [address] [id number] [place] [address]- 2028 Jun, [facility] [place] [facility] [address] [id number] [place] [address]- 7858 Jun, [facility] [place] [facility] [address] [id number] [place] [address]- 4210 Jun, [facility] [place] [facility] [address] [id number] [place] [address]- 7585 Jun, [facility] [place] [facility] [address] [id number] [place] [address]- 6432 Jun, [facility] [place] [facility] [address] [id number] [place] [address]- 6755 Jun, [facility] [place] [facility] [address] [id number] [place] [address]- 4744 Jun, [facility] [place] [facility] [address] [id number] [place] [address]- 0546 30 May, 2012 [facility] [place] [facility] [id number] [place] [address], [place] [address]- 8237 30 May, 2012 [facility] [place] [facility] [address] [id number] [place] [address]- 2488 May, [facility] [place] [facility] [address] [id number] [place] [address]- 5961 18 May, 2012 [facility] [place] [facility] [address] [id number] [place] [address]- 9486 2012 [facility] [place] [facility] [address] [id number] [place] [address]- 7933 13 May, 2012 [facility] [place] [facility] [address] [id number] [place] [address]- 5998 May, [facility] [place] [facility] [address] [id number] [place] [address]- 0879 11 May, 2012 [facility] [place] [facility] [address] [id number] [place] [address]- 9534 10 May, 2012 [facility] [place] [facility] [address] [id number], [place] [address]- 8106 08 May, 2012 [facility] [place] [facility] [address] [id number] [place] [address]- 7023 24 Apr, 2012 [facility] [place] [facility] [address] [id number] [place] [address]- 2465 19 Apr, 2012 [facility] [place] [facility] [address] [id number] [place] [address]- 2601 18 Apr, 2012 [facility] [place] [facility] [address] [id number] [place] [address]- 7867 17 Apr, 2012 [facility] [place] [facility] [address] [id number] [place] [address]- 2338 16 Apr, 2012 [facility] [place] [facility] [address] [id number] [place] [address] Apr, [facility] [place] [facility] [address] [id number] [place] [address]- 0535 Mar, [facility] [place] [facility] [address] [id number] [place] [address]- 8364 Mar, [facility] [place] [facility] [address] [id number] [place] [address]- 1029 Mar, [facility] [place] [facility] [address] [id number] [place] [address]- 3268 Mar, [facility] [place] [facility] [address] [id number] [place] [address]- 3613 Mar, [facility] [place] [facility] [address] [id number] [place] [address]- 5847 Mar, [facility] [place] [facility] [address] [id number] [place] [address]- 8973 Feb, [facility] [place] [facility] [address] [id number] [place] [address]- 2628 Feb, [facility] [place] [facility] [address] [id number] [place] [address]- 2459 Feb, [facility] [place] [facility] [address] [id number] [place] [address]- 7836 Feb, [facility] [place] [facility] [address] [id number] [place] [address]- 3799 Feb, [facility] [place] [facility] [address] [id number] [place] [address]- 3576 Feb, [facility] [place] [facility] [address] [id number] [place] [address]- 2650 Feb, [facility] [place] [facility] [address] [id number] [place] [address]- 5650 Feb, [facility] [address] [id number] [place] [address]- 4473 Feb, [facility] [place] [facility] [address] [id number] [place] [address]- 9155 Jan, [facility] [address] [id number] [place] [address]- 2687 Jan, [facility] [place] [facility] [address] [id number] [place] [address]- 2984 Jan, [facility] [address] [id number] [place] [address]- 9205 Jan, [facility] [address] [id number] [place] [address]- 2055 Jan, [facility] [address] [id number] [place] [address]- 3811 Jan, [facility] [address] [id number] [place] [address]- 5937 Jan, [facility] [place] [facility] [address] [id number] [place] [address]- 3034 Jan, [facility] [address] [id number] [place] [address]- 2515 Jan, [facility] [place] [facility] [address] [id number] [place] [address]- 7892 December, [facility] [address] [id number] [place] [address]- 8146 December, [facility] [place] [facility] [address] [id number] [place] [address]- 0430 December, [facility] [place] [facility] [address] [id number] [place] [address]- 0426 December, [facility] [place] [facility] [address] [id number] [place] December, [facility] [address] [id number] [place] [address]- 9354 December, [facility] [place] [facility] [address] [id number] [place] [address]- 2149 December, [facility] [place] [facility] [address] [id number] [place] [address]- 9490 December, [facility] [place] [facility] [address] [id number] [place] [address]- 1636 December, [facility] [place] [facility] [address] [id number] [place] [address]- 2658 December, [facility] [place] [facility] [address] [id number] [place] [address]- 8463 Nov, [facility] [place] [facility] [address] [id number] [place] [address]- 2362 Nov, [facility] [place] [facility] [address] [id number] [place] [address]- 9050 Nov, [facility] [place] [facility] [address] [id number] [place] [address]- 8954 Nov, [facility] [place] [facility] [address] [id number] [place] [address]- 6183 16 Nov, 2011 [facility] [place] [facility] [address] [id number] [place] [address]- 1291 Nov, [facility] [place] [facility] [address] [id number] [place] [address]- 3875 Nov, [facility] [place] [facility] [address] [id number] [place] [address]- 9433 Nov, [facility] [place] [facility] [address] [id number] [place] [address]- 1785 05 Nov, 2011 [facility] [place] [facility] [address] [id number] [place] [address]- 7234 Nov, [facility] [place] [facility] [address] [id number], [place] [address]- 6061 30 Oct, 2011 [facility] [address] [id number] [place] [address]- 7053 29 Oct, 2011 [facility] [place] [facility] [address] [id number] [place] [address]- 0366 23 Oct, 2011 [facility] [address] [id number] [place] [address]- 3946 23 Oct, 2011 [facility] [place] [facility] [address] [id number] [place] [address]- 4921 21 Oct, 2011 [facility] [address] [id number] [place] [address]- 9100 20 Oct, 2011 [facility] [place] [facility] [address] [id number] [place] [address]- 2380 19 Oct, 2011 [facility] [address] [id number] [place] [address]- 4244 19 Oct, 2011 [facility] [address] [id number] [place] [address]- 6116 16 Oct, 2011 [facility] [address] [id number] [place] [address]- 5766 14 Oct, 2011 [facility] [address] [id number] [place] [address]- 6873 14 Oct, 2011 [facility] [place] [facility] [address] [id number] [place] [address]- 0840 09 Oct, 2011 [facility] [place] [facility] [address] [id number] [place] [address]- 3687 08 Oct, 2011 [facility] [place] [facility] [address] [id number] [place] [address]- 0013 06 Oct, 2011 [facility] [place] [facility] [address] [id number] [place] [address]- 9716 02 Oct, 2011 [facility] [place] [facility] [address] [id number] [place] [address]- 9216 28 Sep, 2011 [facility] [place] [facility] [address] [id number] [place] [address]- 0066 24 Sep, 2011 [facility] [place] [facility] [address] [id number] [place] [address]- 7566 20 Sep, 2011 [facility] [place] [facility] [address] [id number] [place] [address] 2546 17 Sep, 2011 [facility] [place] [facility] [address] [id number] [place] [address]- 6246 16 Sep, 2011 [facility] [place] [facility] [address] [id number] [place] [address]- 8776 14 Sep, 2011 [facility] [place] [facility] [address] [id number] [place] [address]- 4516 13 Sep, 2011 [facility] [place] [facility] [address] [id number] [place] [address]- 3876 10 Sep, 2011 [facility] [place] [facility] [address] [id number] [place] [address]- 0593 06 Sep, 2011 [facility] [place] [facility] [address] [id number] [place] [address]- 5200 03 Sep, 2011 [facility] [place] [facility] [address] [id number] [place] [address]- 8541 Sep, [facility] [place] [facility] [address] [id number] [place] [address]- 0365 Aug, [facility] [place] [facility] [address] [id number] [place] [address] 2543 Aug, [facility] [place] [facility] [address] [id number] [place] [address]- 6656 Aug, [facility] [place] [facility] [address] [id number] [place] [address]- 2729 Aug, [facility] [place] [facility] [address] [id number] [place] [address]- 5787 Aug, [facility] [place] [facility] [address] [id number] [place] [address]- 7798 17 Aug, 2011 [facility] [address] [id number] [place] [address]- 8732 17 Aug, 2011 [facility] [address] [id number] [place] [address]- 7796 17 Aug, 2011 [facility] [address] [id number] [place] [address]- 9766 16 Aug, 2011 [facility] [address] [id number] [place] [address]- 8304 13 Aug, 2011 [facility] [address] [id number] [place] [address]- 3164 11 Aug, 2011 [facility] [address] [id number] [place] [address]- 8502 10 Aug, 2011 [facility] [address] [id number] [place] [address]- 9010 Aug, [facility] [address] [id number] [place] [address]- 4376 Aug, [facility] [address] [id number] [place] [address]- 3467 Aug, [facility] [address] [id number] [place] [address]- 3045 Aug, [facility] [address] [id number] [place] [address]- 1135 Aug, [facility] [address] [id number] [place] [address]- 6983 Jul, [facility] [place] [facility] [address] [id number] [place] [address]- 2493 Jul, [facility] [place] [facility] [address] [id number] [place] [address]- 0532 Jul, [facility] [address] [id number] [place] [address]- 4257 Jul, [facility] [address] [facility] [id number], [place] [address]- 1918 Jul, [facility] [address] [facility] [id number], [place] [address]- 4257 Jul, [facility] [address] [facility] [id number], [place] [address]- 6674 Jul, [facility] [address], [place] [address]- 3506 16 Jul, 2011 [facility] [address] [facility] [id number], [place] [address]- 3144 Jul, [facility] [address], [place] [address]- 5404 Jul, [facility] [address], [place] [address]- 8721 Jul, [facility] [address], [place] [address]- 2084 Jun, [facility] [address], [place] [address]- 2417 Jun, [facility] [address] [id number], [place] [address] 9001 Jun, IMMUNIZATIONS No Known Immunizations SOCIAL HISTORY Never Assessed REASON FOR VISIT Controlled Med Refill 04/17/2017 PLAN OF CARE VITAL SIGNS MEDICATIONS Medication [...]
--- OUTSIDE RECORDS SUMMARY | 2018-08-05 03:33 | XMS REPORT ---
Author Author HEATHER FINE [facility] e[employer] Address Unknown Phone Unavailable Care Team Providers Care Soaker Name Role Phone HEATHER FINE CP Unavailable Allergies No Known Allergies Problems Problem Type Condition Code Onset Dates Condition Status Problem Chronic back pain M54.9 Active Problem Asthma, unspecified, unspecified status 493.90 Active Problem Dysthymia F34.1 Active Problem Lumbago 724.2 Active Problem Esophageal varices without mention of bleeding 456.1 Active Problem Unspecified thrombocytopenia 287.5 Active Problem Anxiety state, unspecified 300.00 Active Medications No Known Medications Results No Known Results Summary Purpose eClinicalWorks Submission
--- OUTSIDE RECORDS SUMMARY | 2018-08-05 03:33 | XMS REPORT ---
Author Author HEATHER FINE [facility] e[employer] Address Unknown Phone Unavailable Care Team Providers Care Solid Waste Analyst Name Role Phone HEATHER FINE CP Unavailable [...]
--- OUTSIDE RECORDS SUMMARY | 2018-08-05 03:34 | XMS REPORT ---
Author Author HEATHER FINE [facility] Address [address] [place] [address] Care Team Providers Care Skin Diving Teacher Name Role Phone HEATHER FINE Unavailable PROBLEMS Type Condition ICD9-CM Code XJB65-TA Code Onset Dates Condition Status SNOMED Code Problem Asthma J45.909 Active 602533876 Problem History of hepatitis C Z86.19 Active 46218860474209 Problem Secondary esophageal varices with bleeding I85.11 Active 23702565 Problem Anxiety F41.9 Active 50769192 Problem Dysthymia F34.1 Active 38782157 Problem Chronic back pain M54.9 Active 963432465 Problem Splenomegaly R16.1 Active 75838607 Problem 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 Active 415056868 Problem Thrombocytosis D47.3 Active 8524689 Problem Lymphocytosis D72.820 Active 23237244 ALLERGIES Unknown Allergies SOCIAL HISTORY No smoking Hx information available PLAN OF CARE VITAL SIGNS MEDICATIONS Medication Instructions Dosage Frequency Start Date End Date Duration Status Oxycodone HCl 5 MG Orally Once a day 1 tablet at bedtime 24h Mar, 28 days Active RESULTS No Results PROCEDURES No Known procedures IMMUNIZATIONS No Known Immunizations
--- OUTSIDE RECORDS SUMMARY | 2018-08-05 03:34 | XMS REPORT ---
Author Author HEATHER FINE [facility] Address [address] [place] [address] Care Team Providers Care Machine Stone Polisher Name Role Phone HEATHER FINE Unavailable PROBLEMS Type Condition ICD9-CM Code [id number] Code Onset Dates Condition Status SNOMED Code Problem Asthma J45.909 Active 834390248 Problem History of hepatitis C Z86.19 Active 13923483340588 Problem Secondary esophageal varices with bleeding I85.11 Active 36947226 Problem Anxiety F41.9 Active 85041567 Problem Dysthymia F34.1 Active 85241273 Problem Chronic back pain M54.9 Active 163205703 Problem Splenomegaly R16.1 Active 81868278 Problem 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 Active 410286639 Problem Thrombocytosis D47.3 Active 9800326 Problem Lymphocytosis D72.820 Active 51280938 ALLERGIES Unknown Allergies SOCIAL HISTORY No smoking Hx information available PLAN OF CARE VITAL SIGNS MEDICATIONS Medication Instructions Dosage Frequency Start Date End Date Duration Status Nadolol 40 mg Orally Once a day 0.5 tablet 24h Active RESULTS No Results PROCEDURES No Known procedures IMMUNIZATIONS No Known Immunizations
--- OUTSIDE RECORDS SUMMARY | 2018-08-05 03:35 | XMS REPORT ---
Author Author HEATHER FINE [facility] [employer] Address Unknown Phone Unavailable Care Team Providers Care Rhythmic Gymnastics Coach Name Role Phone HEATHER FINE CP Unavailable [...]
--- OUTSIDE RECORDS SUMMARY | 2018-08-05 03:35 | XMS REPORT ---
Author Author HEATHER FINE [facility] [employer] Address Unknown Phone Unavailable Care Team Providers Care Strapper Operator Name Role Phone HEATHER FINE CP Unavailable [...]
--- OUTSIDE RECORDS SUMMARY | 2018-08-05 03:35 | XMS REPORT ---
Author Author HEATHER FINE Organization [facility] Address [address] [place] [address] Care Team Providers Care Automotive Engineering Technician Name Role Phone HEATHER FINE Unavailable PROBLEMS Type Condition ICD9-CM Code ERN99-HP Code Onset Dates Condition Status SNOMED Code Problem Unspecified cirrhosis of liver K74.60 Active 043584905 Problem Lymphocytosis D72.820 Active 29010297 Problem Secondary esophageal varices with bleeding I85.11 Active 79702141 Problem Anxiety F41.9 Active 35595434 Problem Asthma J45.909 Active 745458243 Problem Chronic back pain M54.9 Active 502543957 Problem Dysthymia F34.1 Active 28115899 Problem Thrombocytosis D47.3 Active 6957615 Problem Splenomegaly R16.1 Active 37139135 Problem 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 Active 924482250 Problem History of hepatitis C Z86.19 Active [id number] ALLERGIES No Information ENCOUNTERS Encounter Location Date Diagnosis [place] [id number] [place] [address] 00336- 6321 Feb, [facility] [id number] [place] [address] 93879- 4380 Jan, [facility] [id number] [place] [address] 60456- 9769 08 Jan, 2018 Chronic back pain M54.9 and Anxiety F41.9 [facility] [id number] [place] [address] 16357- 1162 December, Chronic back pain M54.9 and Anxiety F41.9 [facility] [address] [place] [address] 85102- 2843 Nov, Chronic back pain M54.9 and Anxiety F41.9 [facility] [id number] [address]- 2905 Oct, Chronic back pain M54.9 and Anxiety F41.9 [facility] [id number] [place] [address] 90100 2546 Oct, [facility] [id number] [place] [address] 91490- 0920 Sep, Chronic back pain M54.9 ; Anxiety F41.9 ; Pain of left leg M79.605 and Pain in right leg M79.604 [facility] [address] [place] [address] 71949- 9613 Sep, Anxiety F41.9 and Chronic back pain M54.9 [facility] [id number] [place] [address] 22625- 2456 Sep, [facility] [id number] [place] [address] 61762- 1778 Aug, Anxiety F41.9 [facility] [id number] [place] [address] 31559- 7566 Jul, Anxiety F41.9 [facility] [id number] [place] [address] 78887- 4908 Jul, [facility] [id number] [place] [address] 18270- 5604 Jul, Viral syndrome B34.9 ; Chronic back pain M54.9 and Dysuria R30.0 [facility] [address] [place] [address] 43981- 3899 Jun, [facility] [id number] [place] [address] 79563- 3726 Jun, Anxiety F41.9 [facility] [id number] [place] [address] 03855 -3533 16 Jun, 2017 Dysuria R30.0 and Acute cystitis without hematuria N30.00 [facility] [address] [address] 1693 Jun, [facility] [address] [address]- 5813 May, Anxiety F41.9 [facility] [id number] [address]- 2577 May, Anxiety F41.9 [facility] [id number] [place] [address] 84893- 9987 Apr, [facility] [id number] [place] [address] 95894- 7493 Apr, Chronic back pain M54.9 and Anxiety F41.9 [facility] [address] [place] [address] 72244- 8053 Mar, [facility] [id number] [place] [address] 97566- 3749 Mar, [facility] [id number] [place] [address] 96119- 0352 Mar, Well woman exam Z01.419 ; Cervical cancer screening Z12.4 ; Breast cancer screening Z12.31 and Colon cancer screening Z12.11 [facility] [address] [address]- 5426 Mar, Chronic back pain M54.9 and Anxiety F41.9 [facility] [address] [address]- 8612 Mar, [facility] [address] [address]- 3181 Feb, Chronic back pain M54.9 and Anxiety F41.9 [facility] [address] [address]- 2660 Feb, [facility] [address] [address]- 1579 Feb, [facility] [address] [address]- 8733 Jan, Chronic back pain M54.9 and Anxiety F41.9 [facility] [address] [place] [address] 45480- 4776 Jan, [facility] [address] [place] [address] 29822- 2656 Jan, [facility] [address] [place] [address] 86258- 2416 December, Chronic back pain M54.9 and Anxiety F41.9 [facility] [address] [place] [address] 33093- 3436 Nov, Chronic back pain M54.9 and Anxiety F41.9 [facility] [address] [place] [address] 35614- 8941 Oct, Chronic back pain M54.9 and Anxiety F41.9 [facility] [id number] [place] [address] 61876- 7630 Oct, Chronic back pain M54.9 [facility] [address] [place] [address] 37865- 5835 Sep, Anxiety F41.9 and Chronic back pain M54.9 [facility] [address] [address]- 2096 Aug, Anxiety F41.9 and Chronic back pain M54.9 [facility] [address] [address]- 5269 Aug, [facility] [address] [address]- 6555 Jul, Chronic back pain M54.9 and Anxiety F41.9 [facility] [address] [address]- 7323 Jul, Anxiety F41.9 and Chronic back pain M54.9 [facility] [place] [address] [facility] [id number] [place] [id number] Jul, [facility] [id number] [place] [address] 15749- 9806 Jul, Anxiety F41.9 [facility] [id number] [place] [address] 89122 2546 Jul, Anxiety F41.9 and Dysuria R30.0 [facility] [id number] [place] [address] 98587 2546 Jul, Chronic back pain M54.9 and Anxiety F41.9 [facility] [id number] [place] [address] 52377- 3366 Jun, Chronic back pain M54.9 [facility] [id number] [place] [address] 43962- 2896 Jun, Chronic back pain M54.9 [facility] [id number] [place] [address] 09265- 1056 May, Anxiety F41.9 [facility] [id number] [place] [address] 49156- 0941 May, Chronic back pain M54.9 [facility] [id number] [place] [address] 28294- 4736 Apr, [facility] [id number] [place] [address] 35963 2546 Apr, [facility] [id number] [place] [address] 61376 2546 Apr, [facility] [address] [place] [address] 27111 2546 Apr, Chronic back pain M54.9 [facility] [id number] [place] [address] 504312- 8796 Mar, Chronic back pain M54.9 [facility] [address] [place] [address] 04553- 3292 Feb, Grief F43.20 [facility] [id number] [place] [address] 46652- 7459 Feb, Chronic back pain M54.9 and Anxiety F41.9 [facility] [id number] [place] [address] 21349- 6106 Feb, Chronic back pain M54.9 [facility] [id number] [place] [address] 50484- 4692 Jan, Chronic back pain M54.9 [facility] [id number] [place] [address] 87546- 1091 December, [facility] [id number] [place] [address] 69859- 8938 December, Grief F43.20 [facility] [id number] [place] [address] 24415- 2028 Nov, [facility] [id number] [place] [address] 63073- 8294 Oct, Cervicalgia M54.2 ; Secondary esophageal varices with bleeding I85.11 and Mouth pain K13.79 [facility] [id number] [place] [address] 25645- 3537 Oct, [facility] [id number] [place] [address] 68087- 9540 Oct, [facility] [id number] [place] [address] 93215- 0266 Sep, [facility] [id number] [place] [address] 28582- 7417 Sep, Acute maxillary sinusitis, recurrence not specified J01.00 [facility] [id number] [place] [address] 63280- 0702 Aug, [facility] [id number] [place] [address] 09135- 6600 Aug, [facility] [id number] [place] [address]- 9511 Aug, Dysuria R30.0 and Chronic back pain M54.9 [facility] [id number] [place] [address] 65608- 3723 Jul, [facility] [id number] [place] [address] 53339- 7271 Jul, [facility] [address] 39791- 5126 Jul, [facility] [id number] [place] [address] 11061- 6865 Jul, Chronic back pain M54.9 [facility] [id number] [place] [address] 27678- 2191 Jul, Dysthymia F34.1 and Chronic back pain M54.9 [facility] [id number] [place] [address] 90327- 8540 Jun, [facility] [id number] [place] [address] 30144- 4724 Jun, [facility] [id number] [place] [address] 15362- 7606 May, [facility] [id number] [place] [address] 55507- 9287 May, [facility] [id number] [place] [address] 51801- 4771 13 May, 2015 [facility] [id number] [place] [address] 80657- 5534 07 May, 2015 Encounter for immunization Z23 [facility] [id number] [place] [address] 87428- 6926 15 Apr, 2015 [facility] [id number] [place] [address] 55933- 2196 10 Apr, 2015 [facility] [id number] [place] [address] 60802- 0873 Mar, [facility] [address] [facility] [id number] [place] [address]- 6028 Mar, Back pain 724.5 [facility] [address] [id number] [place] [address]- 9515 17 Mar, 2015 Cough 786.2 and Back pain 724.5 [facility] [id number] [place] [address], [place] [address]- 6995 Mar, [facility] [address] [id number] [place] [address]- 1767 Mar, [facility] [address] [id number] [place] [address], [place] [address]- 9578 December, [facility] [id number] [place] [address]- 8373 December, [facility] [id number] [place] [address], [place] [address]- 8468 Nov, [facility] [address] [facility] [id number] [address]- 7348 Nov, [facility] [address] [address]- 6538 Oct, [facility] [id number] [address]- 4289 Oct, [facility] [address] [address]- 8231 Sep, [facility] [address] [facility] [id number] [place] [address]- 1277 Sep, [facility] [place] [facility] [address] [facility] [id number] [place] [address]- 6960 Sep, [facility] [place] [facility] [address] [facility] [id number] [address]- 0653 Sep, [facility] [place] [facility] [address] [address]- 3686 Sep, [facility] [address] [id number] [place] [address]- 5434 Sep, [facility] [place] [facility] [address] [id number] [place] [address]- 8295 Sep, [facility] [place] [facility] [address] [id number] [place] [address]- 7041 Sep, [facility] [place] [facility] [address] [id number] [place] [address]- 3318 Aug, [facility] [place] [facility] [address] [id number] [place] [address]- 1889 Aug, [facility] [place] [facility] [address] [id number] [place] [address]- 3985 Aug, [facility] [address] [facility] [id number] [place] [address]- 1854 Aug, [facility] [place] [facility] [address] [id number] [place] [address]- 5707 Aug, [facility] [address] [facility] [id number] [place] [address]- 1132 Aug, [facility] [place] [facility] [address] [facility] [id number] [place] [address]- 7901 Aug, [facility] [place] [facility] [address] [id number] [place] [address]- 8981 Jul, [facility] [place] [facility] [address] [id number] [place] [address]- 6766 Jul, [facility] [place] [facility] [address] [id number] [place] [address]- 8204 Jul, [facility] [place] [facility] [address] [id number] [place] [address]- 5384 Jul, [facility] [place] [facility] [address] [facility] [id number] [place] [address]- 5454 15 Jul, 2014 [facility] [place] [facility] [address] [id number] [place] [address]- 2838 15 Jul, 2014 [facility] [place] [facility] [address] [id number] [place] [address]- 5187 05 Jul, 2014 [facility] [place] [facility] [address] [id number] [place] 8559 05 Jul, 2014 [facility] [place] [facility] [address] [id number] [place] [address]- 6060 Jun, [facility] [place] [facility] [address] [id number] [place] [address]- 9659 Jun, [facility] [place] [facility] [address] [id number] [place] [address]- 5000 Jun, [facility] [place] [facility] [address] [id number] [place] [address]- 8208 Jun, [facility] [place] [facility] [address] [id number] [place] [address]- 1590 Jun, [facility] [place] [facility] [address] [id number] [place] [address]- 1732 Jun, [facility] [place] [facility] [address] [id number] [place] [address]- 3356 Jun, [facility] [place] [facility] [address] [facility] [id number] [place] [address]- 6121 May, [facility] [place] [facility] [address] [id number] [place] [address]- 1287 May, [facility] [place] [facility] [address] [id number] [place] [address]- 0243 May, [facility] [place] [facility] [address] [id number] [place] [address]- 4192 May, [facility] [place] [facility] [address] [id number] [place] [address]- 2288 May, [facility] [place] [facility] [address] [id number] [place] [address]- 3382 2014 [facility] [place] [facility] [address] [id number] [place] [address]- 8535 2014 [facility] [place] [facility] [address] [id number] [place] [address]- 4032 2014 [facility] [place] [facility] [address] [id number] [place] [address]- 2759 13 May, 2014 [facility] [place] [facility] [address] [id number] [place] [address]- 2241 13 May, 2014 [facility] [place] [facility] [address] [id number] [place] [address]- 3016 10 May, 2014 [facility] [place] [facility] [address] [id number] [place] [address]- 6281 10 May, 2014 [facility] [place] [facility] [address] [id number] [place] [address]- 8398 08 May, 2014 [facility] [place] [facility] [address] [id number] [place] [address]- 8578 08 May, 2014 [facility] [place] [facility] [address] [id number] [place] [address]- 9806 26 Apr, 2014 [facility] [place] [facility] [address] [id number] [place] [address]- 7062 23 Apr, 2013 [facility] [place] [facility] [address] [id number] [address]- 2205 23 Apr, 2013 [facility] [place] [facility] [address] [id number] [place] [address]- 4400 23 Apr, 2013 [facility] [place] [facility] [address] [id number] [place] [address]- 1806 23 Apr, 2013 [facility] [place] [facility] [address] [id number] [place] [address]- 1760 10 Apr, 2013 [facility] [place] [facility] [address] [id number] [place] [address]- 8716 10 Apr, 2013 [facility] [place] [facility] [address] [id number] [place] [address]- 9985 Mar, [facility] [place] [facility] [address] [id number] [place] [address]- 0515 Mar, [facility] [place] [facility] [address] [id number] [place] [address]- 4329 Mar, [facility] [place] [facility] [address] [id number] [place] [address]- 9394 Mar, [facility] [place] [facility] [address] [id number] [place] [address]- 8526 Mar, [facility] [place] [facility] [address] [id number] [place] [address]- 6644 Mar, [facility] [place] [facility] [address] [id number] [place] [address]- 4838 Feb, [facility] [place] [facility] [address] [id number] [place] [address]- 6397 Feb, [facility] [place] [facility] [address] [id number] [place] [address]- 0114 Feb, [facility] [place] [facility] [address] [id number] [place] [address]- 8322 Feb, [facility] [place] [facility] [address] [id number] [place] [address]- 7795 Feb, [facility] [place] [facility] [address] [id number] [place] [address]- 9253 Feb, [facility] [place] [facility] [address] [id number] [place] [address]- 0678 Feb, [facility] [place] [facility] [address] [id number] [place] [address]- 5493 Feb, [facility] [place] [facility] [address] [id number] [place] [address]- 8401 Jan, [facility] [place] [facility] [address] [id number] [place] [address] Jan, [facility] [place] [facility] [address] [id number] [place] [address] December, [facility] [place] [facility] [address] [id number] [place] [address] December, [facility] [place] [facility] [address] [id number] [place] [address] December, [facility] [place] [facility] [address] [id number] [place] [address] December, [facility] [place] [facility] [address] [id number] [place] [address] December, [facility] [place] [facility] [address] [id number] [place] [address] December, [facility] [place] [facility] [address] [id number] [place] [address] December, [facility] [place] [facility] [address] [id number] [place] [address] December, [facility] [place] [facility] [address] [id number] [place] [address] December, [facility] [place] [facility] [address] [id number] [place] [address] December, [facility] [place] [facility] [address] [id number] [place] [address] December, [facility] [place] [facility] [address] [id number] [place] [address] December, [facility] [place] [facility] [address] [id number] [place] [address] Nov, [facility] [place] [facility] [address] [id number] [place] [address] Nov, [facility] [place] [facility] [address] [id number] [place] [address] Nov, [facility] [place] [facility] [address] [id number] [place] [address] Nov, [facility] [place] [facility] [address] [id number] [place] [address] Nov, [facility] [place] [facility] [address] [id number] [place] [address] Nov, [facility] [place] [facility] [address] [facility] [id number] [place] [address] Nov, [facility] [place] [facility] [address] [id number] [place] [address] Nov, [facility] [place] [facility] [address] [id number] [place] [address] Nov, [facility] [place] [facility] [address] [id number] [place] [address] Nov, [facility] [place] [facility] [address] [id number] [place] [address] Nov, [facility] [place] [facility] [address] [id number] [place] [address] Nov, [facility] [place] [facility] [address] [id number] [place] [address] Nov, [facility] [place] [facility] [address] [id number] [place] [address] Oct, [facility] [place] [facility] [address] [id number] [place] [address] Oct, [facility] [place] [facility] [address] [id number] [place] [address] Sep, [facility] [place] [facility] [address] [id number] [place] [address] Sep, [facility] [place] [facility] [address] [id number] [place] [address] Sep, [facility] [place] [facility] [address] [id number] [place] [address] Sep, [facility] [place] [facility] [address] [id number] [place] [address] Sep, [facility] [place] [facility] [address] [id number] [place] [address] Sep, [facility] [place] [facility] [address] [id number] [place] [address] Sep, [facility] [place] [facility] [address] [id number] [place] [address] Sep, [facility] [place] [facility] [address] [id number] [place] [address] Sep, [facility] [place] [facility] [address] [id number] [place] [address] Sep, [facility] [place] [facility] [address] [facility] [id number] [place] [address] Sep, [facility] [place] [facility] [address] [id number] [place] [address] Sep, [facility] [place] [facility] [address] [id number] [place] [address] Aug, [facility] [place] [facility] [address] [facility] [id number] [place] [address] Aug, [facility] [place] [facility] [address] [facility] [id number] [place] [address] Aug, [facility] [place] [facility] [address] [id number] [address] Aug, [facility] [place] [facility] [address] [id number] [place] [address] Aug, [facility] [place] [facility] [address] [id number] [place] [address] Aug, [facility] [place] [facility] [address] [facility] [id number] [address] Aug, [facility] [place] [facility] [address] [id number] [address] Aug, [facility] [place] [facility] [address] [id number] [place] [address] Aug, [facility] [place] [facility] [address] [id number] [place] [address] Aug, [facility] [place] [facility] [address] [id number] [place] [address] Aug, [facility] [place] [facility] [address] [id number] [place] [address]70 Aug, [facility] [place] [facility] [address] [id number] [place] [address] 45[address] Aug, [facility] [place] [facility] [address] [id number] [place] [address] Aug, [facility] [place] [facility] [address] [id number] [place] [address] 7565 Aug, [facility] [place] [facility] [address] [id number] [place] [address] 1758 Aug, [facility] [place] [facility] [address] [id number] [place] [address] 1787 Aug, [facility] [place] [facility] [address] [id number] [place] [address] 5089 Aug, [facility] [place] [facility] [address] [id number] [place] [address] 3056 Aug, [facility] [place] [facility] [address] [id number] [place] [address] 5531 Aug, [facility] [place] [facility] [address] [id number] [place] [address] 0576 Aug, [facility] [place] [facility] [address] [id number] [place] [address]- 4571 Aug, [facility] [place] [facility] [address] [id number] [place] [address] 6498 Aug, [facility] [place] [facility] [address] [id number] [place] [address] 7724 Jul, [facility] [address] [id number] [place] [address] Jul, [facility] [place] [facility] [address] [id number] [place] [address] 4971 Jul, [facility] [place] [facility] [address] [id number] [place] [address]- 2081 Jul, [facility] [place] [facility] [address] [id number] [place] [address] 1918 Jul, [facility] [place] [facility] [address] [id number] [place] [address] Jul, [facility] [place] [facility] [address] [id number] [place] [address] 8505 Jun, [facility] [place] [facility] [address] [id number] [place] [address]- 1167 Jun, [facility] [place] [facility] [address] [id number] [place] [address] 2120 Jun, [facility] [place] [facility] [address] [id number] [place] [address] 4167 Jun, [facility] [place] [facility] [address] [facility] [id number] [place] [address]- 9207 Jun, [facility] [place] [facility] [address] [id number] [place] [address]- 8562 Jun, [facility] [place] [facility] [address] [id number] [place] [address]- 7177 Jun, [facility] [place] [facility] [address] [id number] [place] [address] Jun, [facility] [place] [facility] [address] [id number] [place] [address]- 5063 Jun, [facility] [place] [facility] [address] [id number] [place] [address]- 7573 Jun, [facility] [place] [facility] [address] [id number] [place] [address]- 2286 May, 2012 [facility] [place] [facility] [address] [id number] [place] [address]- 3899 May, 2012 [facility] [place] [facility] [address] [id number] [place] [address]- 5136 May, [facility] [place] [facility] [address] [id number] [address] 1569 May, 2012 [facility] [place] [facility] [address] [id number] [place] [address]- 8992 May, [facility] [place] [facility] [address] [id number] [address]- 9894 May, [facility] [place] [facility] [address] [id number] [place] [address]- 7518 May, [facility] [place] [facility] [address] [id number] [address]- 2223 May, [facility] [place] [facility] [address] [id number] [place] [address]- 7587 May, [facility] [place] [facility] [address] [id number] [place] [address]- 2444 May, [facility] [place] [facility] [address] [id number] [place] [address]- 6118 17 May, 2012 [facility] [place] [facility] [address] [id number] [address]- 1279 16 May, 2012 [facility] [place] [facility] [address] [id number] [place] [address]- 3354 16 May, 2013 [facility] [place] [facility] [address] [id number] [place] [address]- 5976 16 May, 2012 [facility] [place] [facility] [address] [id number] [place] [address]- 6199 16 May, 2013 [facility] [place] [facility] [address] [id number] [place] [address]- 2332 Apr, [facility] [address] [id number] [place] [address]- 1081 Apr, [facility] [place] [facility] [address] [id number] [place] [address]- 0016 Apr, [facility] [place] [facility] [address] [id number] [place] [address]- 3184 Mar, [facility] [place] [facility] [address] [id number] [place] [address]- 4439 Mar, [facility] [place] [facility] [address] [id number] [place] [address]- 0994 Mar, [facility] [place] [facility] [address] [id number] [place] [address]- 9283 Mar, [facility] [address] [id number] [place] [address]- 2960 Mar, [facility] [place] [facility] [address] [id number] [place] [address]- 2835 Mar, [facility] [place] [facility] [address] [id number] [place] [address]- 8321 Feb, [facility] [place] [facility] [address] [id number] [place] [address]- 1242 Feb, [facility] [place] [facility] [address] [id number] [place] [address]- 0192 Feb, [facility] [place] [facility] [address] [id number] [place] [address]- 6491 Feb, [facility] [place] [facility] [address] [id number] [place] [address]- 9222 Feb, [facility] [place] [facility] [address] [id number] [place] [address]- 5404 Feb, [facility] [place] [facility] [address] [id number] [place] [address]- 4373 Feb, [facility] [place] [facility] [address] [id number] [place] [address]- 3890 Feb, [facility] [place] [facility] [address] [id number] [place] [address]- 6959 Feb, [facility] [place] [facility] [address] [id number] [place] [address]- 7523 Feb, [facility] [place] [facility] [address] [id number] [place] [address]- 4974 Jan, [facility] [place] [facility] [address] [id number] [place] [address]- 3610 Jan, [facility] [place] [facility] [address] [id number] [place] [address]- 6243 Jan, [facility] [place] [facility] [address] [id number] [place] [address]- 9649 Jan, [facility] [place] [facility] [address] [id number] [place] [address]- 3185 December, [facility] [place] [facility] [address] [id number] [place] [address]- 5394 December, [facility] [place] [facility] [address] [id number] [place] [address]- 7999 December, [facility] [place] [facility] [address] [id number] [place] [address]- 3410 Nov, [facility] [place] [facility] [address] [id number] [place] [address]- 9051 Nov, [facility] [place] [facility] [address] [id number] [place] [address]- 2524 Nov, [facility] [place] [facility] [address] [id number] [place] [address]- 7313 Nov, [facility] [place] [facility] [address] [id number] [place] [address]- 4286 Nov, [facility] [place] [facility] [address] [id number] [place] [address]- 5646 Nov, [facility] [address] [id number] [place] [address]- 1125 Oct, [facility] [address] [id number] [place] [address]- 5946 Oct, [facility] [address] [id number] [place] [address]- 0062 Oct, [facility] [address] [id number] [place] [address]- 3785 Sep, [facility] [address] [id number] [place] [address]- 6108 Sep, [facility] [address] [id number] [place] [address]- 0176 Sep, [facility] [address] [id number] [place] [address]- 4225 Aug, [facility] [address] [id number] [place] [address]- 3003 Aug, [facility] [address] [id number] [place] [address]- 5272 Aug, [facility] [address] [id number] [place] [address]- 7290 Aug, [facility] [address] [id number] [place] [address]- 1561 Jul, [facility] [place] [facility] [address] [id number] [place] [address]- 2989 Jul, [facility] [place] [facility] [address] [id number] [place] [address]- 2877 Jul, [facility] [place] [facility] [address] [id number] [place] [address]- 6416 Jul, [facility] [place] [facility] [address] [id number] [place] [address]- 0521 Jun, [facility] [place] [facility] [address] [id number] [place] [address]- 1299 Jun, [facility] [place] [facility] [address] [id number] [place] [address]- 5815 Jun, [facility] [place] [facility] [address] [id number] [place] [address]- 8936 Jun, [facility] [place] [facility] [address] [id number] [place] [address]- 7998 Jun, [facility] [place] [facility] [address] [id number] [place] [address]- 3646 Jun, [facility] [place] [facility] [address] [id number] [place] [address]- 8032 Jun, [facility] [place] [facility] [address] [id number] [place] [address]- 1103 Jun, [facility] [place] [facility] [address] [id number] [place] [address]- 8324 May, [facility] [place] [facility] [address] [id number] [place] [address]- 9610 30 May, 2012 [facility] [place] [facility] [address] [id number] [place] [address]- 5260 18 May, 2012 [facility] [place] [facility] [address] [facility] [id number] [place] [address]- 7189 18 May, 2012 [facility] [place] [facility] [address] [id number] [place] [address]- 8441 2012 [facility] [place] [facility] [address] [id number] [place] [address]- 1784 13 May, 2012 [facility] [place] [facility] [address] [id number] [place]702 11 May, 2012 [facility] [place] [facility] [address] [facility] [id number] [place] 11 May, 2012 [facility] [place] [facility] [address] [id number] [place] [address]- 8313 10 May, 2012 [facility] [place] [facility] [address] [id number] [place] [address]- 6547 08 May, 2012 [facility] [place] [facility] [address] [id number] [place] [address]- 3871 24 Apr, 2012 [facility] [place] [facility] [address] [id number] [place] [address]- 9807 19 Apr, 2012 [facility] [place] [facility] [address] [id number] [place] [address]- 0864 18 Apr, 2012 [facility] [place] [facility] [address] [id number] [place] [address]- 2590 17 Apr, 2012 [facility] [place] [facility] [address] [id number] [place] [address]- 3098 16 Apr, 2012 [facility] [place] [facility] [address] [id number] [place] [address]- 1296 10 Apr, 2012 [facility] [place] [facility] [address] [id number] [place] [address]- 9556 29 Mar, 2012 [facility] [place] [facility] [address] [id number] [place] [address]- 2221 Mar, [facility] [place] [facility] [address] [id number] [place] [address]- 3756 Mar, [facility] [place] [facility] [address] [id number] [place] [address]- 5169 Mar, [facility] [place] [facility] [address] [id number] [address]- 5853 Mar, [facility] [place] [facility] [address] [id number] [place] [address]- 9778 Mar, [facility] [place] [facility] [address] [id number] [place] [address]- 0581 Feb, [facility] [place] [facility] [address] [id number] [place] [address]- 7063 Feb, [facility] [place] [facility] [address] [id number] [place] [address]- 1122 18 Feb, 2012 [facility] [place] [facility] [address] [id number] [place] [address]- 3586 17 Feb, 2011 [facility] [place] [facility] [address] [id number] [place] [address]- 4336 13 Feb, 2012 [facility] [place] [facility] [address] [id number] [place] [address]- 7856 Feb, 2011 [facility] [place] [facility] [address] [id number] [place] [address]- 7592 Feb, [facility] [place] [facility] [address] [id number] [place] [address]- 1155 Feb, [facility] [place] [facility] [address] [id number] [place] [address]- 1981 Feb, [facility] [place] [facility] [address] [id number] [place] [address]- 8808 29 Jan, 2012 [facility] [place] [facility] [address] [id number] [place] [address]- 4215 Jan, [facility] [place] [facility] [address] [id number] [place] [address]- 4547 Jan, [facility] [place] [facility] [address] [id number] [place] [address]- 5127 Jan, [facility] [place] [facility] [address] [id number] [place] [address]- 3501 15 Jan, 2012 [facility] [place] [facility] [address] [id number] [place] [address]- 4417 Jan, [facility] [place] [facility] [address] [id number] [place] [address]- 2806 08 Jan, 2012 [facility] [place] [facility] [address] [id number] [place] [address]- 4359 04 Jan, 2012 [facility] [place] [facility] [address] [id number] [place] [address]- 4117 Jan, [facility] [place] [facility] [address] [id number] [place] [address]- 3438 December, [facility] [address] [id number] [place] [address]- 8002 December, [facility] [address] [id number] [place] [address]- 4599 December, [facility] [address] [id number] [place] [address]- 6931 December, [facility] [address] [id number] [place] [address]- 5986 December, [facility] [address] [id number] [place] [address]- 9886 December, [facility] [address] [id number] [place] [address]- 0600 December, [facility] [address] [id number] [place] [address]- 8159 December, [facility] [address] [id number] [place] [address]- 5518 December, [facility] [address] [id number] [place] [address]- 8357 December, [facility] [address] [id number] [place] [address]- 2245 30 Nov, 2011 [facility] [place] [facility] [address] [id number] [place] [address]- 7787 Nov, [facility] [place] [facility] [address] [id number] [place] [address]- 5754 Nov, [facility] [place] [facility] [address] [id number] [place] [address]- 7974 Nov, [facility] [place] [facility] [address] [id number] [place] [address]- 8153 16 Nov, 2011 [facility] [place] [facility] [address] [id number] [place] [address]- 3248 13 Nov, 2011 [facility] [place] [facility] [address] [id number] [place] [address]- 1703 09 Nov, 2011 [facility] [place] [facility] [address] [id number] [place] [address]- 0236 06 Nov, 2011 [facility] [place] [facility] [address] [id number] [place] [address]- 3666 05 Nov, 2011 [facility] [place] [facility] [address] [id number] [place] [address]- 2086 03 Nov, 2011 [facility] [place] [facility] [address] [id number] [place] [address]- 2443 30 Oct, 2011 [facility] [place] [facility] [address] [id number] [place] [address]- 7205 29 Oct, 2011 [facility] [place] [facility] [address] [id number] [place] [address]- 7344 23 Oct, 2011 [facility] [place] [facility] [address] [id number] [place] [address]- 7931 23 Oct, 2011 [facility] [place] [facility] [address] [id number] [place] [address]- 9117 21 Oct, 2011 [facility] [place] [facility] [address] [id number] [place] [address]- 6365 20 Oct, 2011 [facility] [place] [facility] [address] [id number] [place] [address]- 2407 19 Oct, 2011 [facility] [place] [facility] [address] [id number] [place] [address]- 2919 19 Oct, 2011 [facility] [place] [facility] [address] [id number] [place] [address]- 3511 16 Oct, 2011 [facility] [place] [facility] [address] [id number] [place] [address]- 2952 14 Oct, 2011 [facility] [place] [facility] [address] [id number] [place] [address]- 8424 14 Oct, 2011 [facility] [place] [facility] [address] [id number] [place] [address]- 1899 09 Oct, 2011 [facility] [place] [facility] [address] [id number] [place] [address]- 0495 08 Oct, 2011 [facility] [place] [facility] [address] [id number] [place] [address]- 4026 06 Oct, 2011 [facility] [place] [facility] [address] [id number] [place] [address]- 3904 Oct, [facility] [place] [facility] [address] [id number] [place] [address]- 8265 28 Sep, 2011 [facility] [place] [facility] [address] [id number] [place] [address]- 7936 24 Sep, 2011 [facility] [place] [facility] [address] [facility] [id number] [place] [address]- 6871 20 Sep, 2011 [facility] [place] [facility] [address] [facility] [id number] [place] [address]- 8227 17 Sep, 2011 [facility] [place] [facility] [address] [id number] [place] [address]- 1740 16 Sep, 2011 [facility] [place] [facility] [address] [facility] [id number] [place] [address]- 6046 14 Sep, 2011 [facility] [place] [facility] [address] [facility] [id number] [place] [address]- 5221 13 Sep, 2011 [facility] [place] [facility] [address] [facility] [id number] [place] [address]- 1689 10 Sep, 2011 [facility] [place] [facility] [address] [id number] [place] [address]- 0389 06 Sep, 2011 [facility] [place] [facility] [address] [id number] [place] [address] 03 Sep, 2011 [facility] [place] [facility] [address] [facility] [id number] [place] [address] 01 Sep, 2011 [facility] [place] [facility] [address] [facility] [id number] [place] [address] Aug, [facility] [address] [id number] [place] [address] Aug, [facility] [place] [facility] [address] [id number] [place] [address] Aug, [facility] [address] [id number] [place] [address] Aug, [facility] [place] [facility] [address] [id number] [place] [address] Aug, [facility] [address] [id number] [place] [address] Aug, [facility] [place] [facility] [address] [id number] [place] [address] Aug, [facility] [address] [id number] [place] [address] Aug, [facility] [place] [facility] [address] [id number] [place] [address] 16 Aug, 2011 [facility] [address] [id number] [place] [address] Aug, [facility] [place] [facility] [address] [id number] [place] [address] Aug, [facility] [address] [id number] [place] [address] Aug, [facility] [place] [facility] [address] [id number] [place] [address] Aug, [facility] [place] [facility] [address] [id number] [place] [address] Aug, [facility] [place] [facility] [address] [id number] [place] [address] Aug, [facility] [place] [facility] [address] [id number] [place] [address] Aug, [facility] [place] [facility] [address] [facility] [id number] [address] Aug, [facility] [address] [facility] [id number] [address] Jul, [facility] [address] [facility] [id number] [place] [address] Jul, [facility] [address] [facility] [id number] [address] Jul, [facility] [address] [facility] [id number] [place] [address] Jul, [facility] [id number] [place] [address] Jul, [facility] [address] [facility] [id number] [place] [address] [address] Jul, [facility] [id number] [place] [address] Jul, [facility] [address] [id number] [address] Jul, [facility] [id number] [address] Jul, [facility] [id number] [address] Jul, [facility] [id number] [address] Jul, [facility] [address] [facility] [id number] [place] [address] Jun, [facility] [id number] [address] Jun, [facility] [id number] [address] Jun, IMMUNIZATIONS No Known Immunizations SOCIAL HISTORY Never Assessed REASON FOR VISIT Controlled Med Refill 09/04/17 PLAN OF CARE VITAL SIGNS MEDICATIONS Medication Instructions Dosage Frequency Start Date End Date Duration Status Ativan 0.5 MG Orally Once a day 1 tablet as needed 24h December, 28 days Active Oxycodone HCl 5 MG Orally Once a day 1 tablet at bedtime 24h Aug, 28 days Active RESULTS No Results PROCEDURES [...]
--- OUTSIDE RECORDS SUMMARY | 2018-08-05 03:35 | XMS REPORT ---
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 Active Problem History of hepatitis C Z86.19 Active Problem Lymphocytosis D72.820 Active Problem Splenomegaly R16.1 Active Medications Medication Code System Code Instructions Start Date End Date Status Dosage Folic Acid [facility] 07739963801 1 MG TAKE ONE TABLET BY MOUTH ONCE DAILY Aciphex [facility] [address]-62 20 mg Orally Once a day 1 tablet Ativan [facility] [address]-38 0.5 MG Orally 3 times a day December 14, 2015 1 tablet as needed Aldactone [facility] 83462970505 50 MG Once a day 1 Tablet by Oral route Nadolol [facility] [address]-30 40 mg Orally Once a day 0.5 tablet Oxycodone HCl [facility] [address]-49 5 MG Orally Once a day Mar 29, 2015 1 tablet at bedtime Results No Known Results Summary Purpose eClinicalWorks Submission
--- OUTSIDE RECORDS SUMMARY | 2018-08-05 03:35 | XMS REPORT ---
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 Name Role Phone HEATHER FINE Unavailable PROBLEMS Type Condition ICD9-CM Code ULQ51-VG Code Onset Dates Condition Status SNOMED Code Problem Unspecified cirrhosis of liver K74.60 Active 561784859 Problem Lymphocytosis D72.820 Active 96160613 Problem Secondary esophageal varices with bleeding I85.11 Active 55465199 Problem Anxiety F41.9 Active 65195840 Problem Asthma J45.909 Active 216045132 Problem Chronic back pain M54.9 Active 250643367 Problem Dysthymia F34.1 Active 91629028 Problem Thrombocytosis D47.3 Active 2593060 Problem Splenomegaly R16.1 Active 25297492 Problem 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 Active 396454214 Problem History of hepatitis C Z86.19 Active [id number] ALLERGIES Unknown Allergies SOCIAL HISTORY No smoking Hx information available PLAN OF CARE VITAL SIGNS MEDICATIONS Unknown Medications RESULTS No Results PROCEDURES No Known procedures IMMUNIZATIONS No Known Immunizations
[2018-08-05 03:36] LABS: ALANINE AMINOTRANSFERASE 30 U/L (0-55); ALBUMIN 3.7 GM/DL (3.2-4.5); ALKALINE PHOSPHATASE 70 U/L (40-136); BILIRUBIN,TOTAL 1.1 MG/DL (0.1-1.0); BUN/CREATININE RATIO 43; CARBON DIOXIDE 20 MMOL/L (21-32); CHLORIDE 107 MMOL/L (98-107); CREATININE SERUM 0.77 MG/DL (0.60-1.30); GFR ESTIMATED > 60; GLUCOSE 126 MG/DL (70-105); LIPASE 48 U/L (8-78); MAGNESIUM 1.8 MG/DL (1.8-2.4); SODIUM 138 MMOL/L (135-145); TOTAL PROTEIN 6.3 GM/DL (6.4-8.2)
--- OUTSIDE RECORDS SUMMARY | 2018-08-05 03:36 | XMS REPORT ---
Author Author HEATHER FINE Organization [facility] Address [address] [place] [address] Care Team Providers Care Chicken Vaccinator Name Role Phone HEATHER FINE Unavailable PROBLEMS Type Condition ICD9-CM Code UMB93-YB Code Onset Dates Condition Status SNOMED Code Problem Unspecified cirrhosis of liver K74.60 Active 941152838 Problem Lymphocytosis D72.820 Active 88662074 Problem Secondary esophageal varices with bleeding I85.11 Active 06573732 Problem Anxiety F41.9 Active 78242714 Problem Asthma J45.909 Active 881767189 Problem Chronic back pain M54.9 Active 444157034 Problem Dysthymia F34.1 Active 13449701 Problem Thrombocytosis D47.3 Active 4975208 Problem Splenomegaly R16.1 Active 40975058 Problem 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 Active 964745924 Problem History of hepatitis C Z86.19 Active [id number] ALLERGIES Substance Reaction Event Type Date Status Sulfamethoxazole-Trimethoprim Unknown Drug Allergy Jul, Active ENCOUNTERS Encounter Location Date Diagnosis [place] [id number] [place] [address] 17164- 6471 Feb, [place] [address] [place] [id number] [place] [address] 13952- 7868 Jan, [facility] [id number] [place] [address] 04110- 1716 Jan, Chronic back pain M54.9 and Anxiety F41.9 [place] [id number] [place] [address] 18448- 6187 December, Chronic back pain M54.[address] [facility] [id number] [place] [address] 70739- 9944 Nov, Chronic back pain M54.[address] [facility] [id number] [place] [address] 98129- 1479 Oct, Chronic back pain M54.[address] [facility] [id number] [place] [address] 07974- 1002 Oct, [facility] [id number] [place] [address] 39137- 8770 Sep, Chronic back pain M54.9 ; Anxiety F41.9 ; Pain of left leg M79.605 and Pain in right leg M79.604 [facility] [id number] [place] [address] 11479- 3464 Sep, Anxiety F41.9 and Chronic back pain M54.9 [facility] [id number] [place] [address] 83795- 6444 Sep, [facility] [id number] [place] [address] 41766- 5645 Aug, Anxiety F41.9 [facility] [id number] [place] [address] 48134- 9817 Jul, Anxiety F41.9 [facility] [id number] [place] [address] 77546- 9864 Jul, [facility] [id number] [place] [address] 26914- 9958 Jul, Viral syndrome B34.9 ; Chronic back pain M54.[address] [facility] [id number] [place] [address] 02401- 7435 Jun, [facility] [id number] [place] [address] 29464- 3936 Jun, Anxiety F41.9 [facility] [id number] [place] [address] 99260 -2256 Jun, Dysuria R30.0 and Acute cystitis without hematuria N30.00 [facility] [address] [address]- 1461 Jun, [facility] [id number] [place] [address] 82953- 5006 May, Anxiety F41.9 [facility] [id number] [place] [address] 31586- 4236 May, Anxiety F41.9 [facility] [id number] [place] [address] 35576- 9875 Apr, [facility] [id number] [place] [address] 70053- 0502 Apr, Chronic back pain M54.[address] [facility] [id number] [place] [address] 64536- 9582 Mar, [facility] [id number] [place] [address] 63887- 4863 Mar, [facility] [id number] [place] [address] 60038- 6162 Mar, Well woman exam Z01.419 ; Cervical cancer screening Z12.4 ; Breast cancer screening Z12.31 and Colon cancer screening Z12.11 [facility] [address] [address]- 7612 Mar, Chronic back pain M54.[address] [facility] [id number] [place] [address] 36567- 6126 Mar, [facility] [address] [address]- 5040 Feb, Chronic back pain M54.[address] [facility] [address] [address]- 6256 Feb, [facility] [id number] [place] [address] 54394- 5159 Feb, [facility] [id number] [place] [address] 78396- 2969 Jan, Chronic back pain M54.[address] [facility] [id number] [place] [address] 84811- 9241 Jan, [facility] [id number] [place] [address] 24820- 1524 Jan, [facility] [id number] [place] [address] 46583- 1782 December, Chronic back pain M54.[address] [facility] [id number] [place] [address] 55954- 1772 Nov, Chronic back pain M54.[address] [facility] [id number] [place] [address] 32771- 9040 Oct, Chronic back pain M54.[address] [facility] [id number] [place] [address] 66098- 2287 Oct, Chronic back pain M54.9 [facility] [id number] [place] [address] 61115- 5174 Sep, Anxiety F41.9 and Chronic back pain M54.9 [facility] [id number] [place] [address] 87380- 4422 Aug, Anxiety F41.9 and Chronic back pain M54.9 [facility] [id number] [place] [address] 06946- 0553 Aug, [facility] [id number] [place] [address] 49124- 3305 Jul, Chronic back pain M54.[address] [facility] [id number] [place] [address] 29094- 3860 Jul, Anxiety F41.9 and Chronic back pain M54.9 [facility] [place] [address] [facility] [id number] [place] [id number] Jul, [facility] [address] [facility] [id number] [place] [address] 26981- 8336 Jul, Anxiety F41.9 [facility] [address] [facility] [id number] [place] [address] 78960- 7956 Jul, Anxiety F41.[address] [facility] [address] [facility] [id number] [place] [address] 20545- 1235 Jul, Chronic back pain M54.[address] [facility] [id number] [place] [address] 57303- 3898 Jun, Chronic back pain M54.9 [facility] [id number] [place] [address] 81534- 6201 Jun, Chronic back pain M54.9 [facility] [id number] [place] [address] 01212- 6198 May, Anxiety F41.9 [facility] [id number] [place] [address] 75175- 4362 May, Chronic back pain M54.9 [facility] [address] [place] [id number] [place] [address] 97764 2542 Apr, [facility] [address] [address] 2546 Apr, [facility] [address] [id number] [place] [address] 19678 2546 Apr, [facility] [id number] [place] [address] 93438- 8896 Apr, Chronic back pain M54.9 [facility] [address] [place] [id number] [address]- 2546 Mar, Chronic back pain M54.9 [facility] [id number] [place] [address] 65400- 3087 Feb, Grief F43.20 [facility] [id number] [place] [address] 00179- 0168 Feb, Chronic back pain M54.[address] [facility] [id number] [place] [address] 84460- 4265 Feb, Chronic back pain M54.9 [facility] [id number] [place] [address] 88538- 7852 Jan, Chronic back pain M54.9 [facility] [id number] [place] [address] 56669- 6896 December, [facility] [address] [id number] [place] [address] 90437- 0395 December, Grief F43.20 [facility] [address] [id number] [place] [address] 81992- 9718 Nov, [facility] [id number] [place] [address] 77646- 5800 Oct, Cervicalgia M54.2 ; Secondary esophageal varices with bleeding I85.11 and Mouth pain K13.79 [facility] [id number] [place] [address] 96673- 8277 Oct, [facility] [id number] [place] [address] 69397- 8044 Oct, [facility] [id number] [place] [address] 88583- 9953 Sep, [facility] [id number] [place] [address] 89723- 6390 Sep, Acute maxillary sinusitis, recurrence not specified J01.00 [facility] [id number] [place] [address] 14751- 3556 Aug, [facility] [id number] [place] [address] 49764- 1168 Aug, [facility] [address] [address]- 3358 Aug, Dysuria R30.0 and Chronic back pain M54.9 [facility] [id number] [place] [address] 44006- 9103 Jul, [facility] [id number] [place] [address] 35611- 6430 Jul, [facility] [id number] [place] [address] 22520- 4919 Jul, [facility] [id number] [place] [address] 64807- 8598 Jul, Chronic back pain M54.9 [facility] [id number] [place] [address] 42470- 7571 Jul, Dysthymia F34.1 and Chronic back pain M54.9 [facility] [id number] [place] [address] 09624- 4340 Jun, [facility] [id number] [place] [address] 49356- 5247 Jun, [facility] [id number] [place] [address] 86244- 9264 May, [facility] [id number] [place] [address] 91530- 9659 May, [facility] [id number] [place] [address] 76174- 4640 13 May, 2015 [facility] [id number] [place] [address] 08791- 7135 07 May, 2015 Encounter for immunization Z23 [facility] [id number] [place] [address] 86850- 2099 [address], [address] [facility] [id number] [place] [address] 58809- 7765 [address], [address] [facility] [address] [id number] [place] [address]- 5733 Mar, [facility] [address] [facility] [id number] [place] [address]- 5889 Mar, Back pain 724.5 [facility] [address] [id number] [place] [address]- 4832 Mar, Cough 786.2 and Back pain 724.5 [facility] [place] [address] [id number] [place] [address]- 6753 Mar, [facility] [place] [facility] [address] [id number] [place] [address]- 8847 Mar, [facility] [address] [facility] [id number] [place] [address]- 3602 December, [facility] [address] [place] [address]- 2441 December, [facility] [address] [place] [address]- 4013 Nov, [facility] [place] [facility] [address] [id number] [place] [address]- 9978 Nov, [facility] [place] [facility] [address] [place] [address]- 6292 Oct, [facility] [place] [facility] [address] [place] [address]- 4878 Oct, [facility] [place] [facility] [address] [facility] [id number], [place] [address]- 6814 Sep, [facility] [place] [facility] [address] [facility] [id number] [place] [address]- 0685 Sep, [facility] [place] [facility] [address] [facility] [id number] [place] [address]- 5626 Sep, [facility] [place] [facility] [address] [place] [id number] [place] [address]- 9165 Sep, [facility] [place] [facility] [address] [id number] [place] [address]- 5085 Sep, 2014 [facility] [place] [facility] [address] [id number] [place] [address]- 8393 Sep, [facility] [place] [facility] [address] [id number] [place] [address]- 7046 Sep, [facility] [place] [facility] [address] [id number] [place] [address]- 5259 Sep, [facility] [place] [facility] [address] [id number] [place] [address]- 9737 Aug, [facility] [place] [facility] [address] [id number] [place] [address]- 3521 Aug, [facility] [place] [facility] [address] [id number] [place] [address]- 3715 Aug, [facility] [place] [facility] [address] [id number] [place] [address]- 4882 Aug, [facility] [place] [facility] [address] [id number] [place] [address]- 0017 Aug, [facility] [place] [facility] [address] [id number] [place] [address]- 9438 Aug, [facility] [place] [facility] [address] [id number] [place] [address]- 0360 Aug, [facility] [place] [facility] [address] [id number] [place] [address]- 2388 Jul, [facility] [place] [facility] [address] [id number] [place] [address]- 5805 Jul, [facility] [place] [facility] [address] [id number] [place] [address]- 0540 Jul, [facility] [place] [facility] [address] [id number] [place] [address]- 0917 Jul, [facility] [place] [facility] [address] [id number] [place] [address]- 6654 Jul, [facility] [place] [facility] [address] [id number] [place] [address]- 5248 Jul, [facility] [place] [facility] [address] [id number] [place] 5254 Jul, [facility] [place] [facility] [address] [id number] [place] [address]- 3394 Jul, [facility] [place] [facility] [address] [id number] [place] [address]- 4000 Jun, [facility] [place] [facility] [address] [id number] [place] [address]- 1289 Jun, [facility] [place] [facility] [address] [id number] [place] [address]- 6713 Jun, [facility] [place] [facility] [address] [id number] [place] [address]- 7694 Jun, [facility] [place] [facility] [address] [id number] [place] [address]- 0645 Jun, [facility] [place] [facility] [address] [id number] [place] [address]- 3245 Jun, [facility] [place] [facility] [address] [id number] [place] [address]- 5477 Jun, [facility] [place] [facility] [address] [id number] [place] [address]- 2271 May, [facility] [place] [facility] [address] [id number], [place] [address]- 6154 May, [facility] [place] [facility] [address] [id number] [place] [address]- 7754 May, [facility] [place] [facility] [address] [id number] [place] [address]- 0388 May, [facility] [place] [facility] [address] [id number] [place] [address]- 3726 2014 [facility] [place] [facility] [address] [id number] [place] [address]- 4150 2014 [facility] [place] [facility] [address] [id number] [place] [address]- 5021 2014 [facility] [place] [facility] [address] [id number] [place] [address]- 4665 2014 [facility] [place] [facility] [address] [id number] [place] [address]- 1571 13 May, 2014 [facility] [place] [facility] [address] [id number] [place] [address]- 1865 13 May, 2014 [facility] [place] [facility] [address] [id number] [place] [address]- 5689 10 May, 2014 [facility] [place] [facility] [address] [id number] [place] [address]- 6833 10 May, 2014 [facility] [place] [facility] [address] [id number] [place] [address]- 0897 08 May, 2014 [facility] [place] [facility] [address] [id number] [place] [address]- 9017 08 May, 2014 [facility] [place] [facility] [address] [id number] [place] [address]- 7499 26 Apr, 2013 [facility] [place] [facility] [address] [id number] [place] [address]- 5721 23 Sep, 2013 [facility] [place] [facility] [address] [id number] [place] [address]- 2542 23 Sep, 2013 [facility] [place] [facility] [address] [id number] [place] [address]- 2542 23 Sep, 2013 [facility] [place] [facility] [address] [id number] [place] [address]- 2547 23 Apr, 2013 [facility] [place] [facility] [address] [id number] [place] [address]- 2547 10 Apr, 2013 [facility] [place] [facility] [address] [id number] [place] [address]- 2235 Apr, [facility] [place] [facility] [address] [id number] [place] [address]- 6991 Mar, [facility] [place] [facility] [address] [id number] [place] [address]- 0070 Mar, [facility] [place] [facility] [address] [id number] [place] [address]- 8153 Mar, [facility] [place] [facility] [address] [id number] [place] [address]- 2517 Mar, [facility] [place] [facility] [address] [id number] [place] [address]- 6398 Mar, [facility] [place] [facility] [address] [id number] [place] [address]- 0777 Mar, [facility] [place] [facility] [address] [id number] [place] [address]- 2001 Feb, [facility] [place] [facility] [address] [id number] [place] [address]- 5172 Feb, [facility] [place] [facility] [address] [id number] [place] [address]- 8878 Feb, [facility] [place] [facility] [address] [id number] [place] [address] Feb, [facility] [place] [facility] [address] [id number] [place] [address] Feb, [facility] [place] [facility] [address] [id number] [place] [address] Feb, [facility] [place] [facility] [address] [id number] [place] [address] Feb, [facility] [place] [facility] [address] [id number] [place] [address] Feb, [facility] [place] [facility] [address] [id number] [place] [address] Jan, [facility] [place] [facility] [address] [id number], [place] [address] Jan, [facility] [address] [id number] [place] [address] December, [facility] [place] [facility] [address] [id number] [place] [address] December, [facility] [place] [facility] [address] [id number] [place] [address] December, [facility] [place] [facility] [address] [id number] [place] [address] December, [facility] [place] [facility] [address] [id number] [place] [address]- [address] December, [facility] [place] [facility] [address] [id number] [place] [address] December, [facility] [address] [id number] [place] [address] December, [facility] [place] [facility] [address] [id number] [place] [address] December, [facility] [place] [facility] [address] [id number] [place] [address] December, [facility] [place] [facility] [address] [id number] [place] [address]- [address] December, [facility] [place] [facility] [address] [id number] [place] [address] December, [facility] [place] [facility] [address] [id number] [place] [address] December, [facility] [place] [facility] [address] [id number] [place] [address] Nov, [facility] [place] [facility] [address] [id number] [place] [address] Nov, [facility] [place] [facility] [address] [id number] [place] [address]- [address]695 Nov, [facility] [place] [facility] [address] [id number] [place] [address]- [address] Nov, [facility] [place] [facility] [address] [id number] [place] [address] Nov, [facility] [place] [facility] [address] [id number] [place] [address] Nov, [facility] [place] [facility] [address] [id number] [place] [address] Nov, [facility] [place] [facility] [address] [id number] [place] [address]- [address] Nov, [facility] [place] [facility] [address] [id number] [place] [address] Nov, [facility] [place] [facility] [address] [id number] [place] [address] Nov, [facility] [place] [facility] [address] [id number] [place] [address] Nov, [facility] [place] [facility] [address] [id number] [place] [address] Nov, [facility] [place] [facility] [address] [id number] [place] [address]- [address] Nov, [facility] [place] [facility] [address] [id number] [place] [address] Oct, [facility] [place] [facility] [address] [id number] [place] [address] Oct, [facility] [place] [facility] [address] [id number] [place] [address]- [address] Sep, [facility] [place] [facility] [address] [id number] [place] [address]- [address] Sep, [facility] [place] [facility] [address] [id number] [place] [address]- [address] Sep, [facility] [place] [facility] [address] [id number] [place] [address]- [address] Sep, [facility] [place] [facility] [address] [id number] [place] [address]- [address] Sep, [facility] [place] [facility] [address] [id number] [place] [address]- [address] Sep, [facility] [place] [facility] [address] [id number] [place] [address]- [address] Sep, [facility] [place] [facility] [address] [id number] [place] [address]- [address] Sep, [facility] [place] [facility] [address] [id number] [place] [address]- [address] Sep, [facility] [place] [facility] [address] [id number] [place] [address]- [address] Sep, [facility] [place] [facility] [address] [id number] [place] [address]- [address] Sep, [facility] [place] [facility] [address] [id number] [place] [address]- [address] Sep, [facility] [place] [facility] [address] [id number] [place] [address]- [address] Aug, [facility] [place] [facility] [address] [facility] [id number] [place] [address] Aug, [facility] [place] [facility] [address] [id number] [place] [address]- [address] Aug, [facility] [place] [facility] [address] [id number] [place] [address] Aug, [facility] [place] [facility] [address] [id number] [place] [address]- [address] Aug, [facility] [place] [facility] [address] [facility] [id number] [place] [address] Aug, [facility] [place] [facility] [address] [id number] [place] [address]- [address] Aug, [facility] [place] [facility] [address] [id number] [place] [address]- 4347 Aug, [facility] [place] [facility] [address] [id number] [place] [address]39 Aug, [facility] [place] [facility] [address] [id number] [place] [address]- 5477 Aug, [facility] [place] [facility] [address] [id number] [place] [address] 9388 Aug, [facility] [address] [id number] [place] [address] 6005 Aug, [facility] [place] [facility] [address] [id number] [place] [address] 5466 Aug, [facility] [address] [id number] [place] [address] 6000 Aug, [facility] [address] [id number] [place] [address] 2721 Aug, [facility] [place] [facility] [address] [id number] [place] [address]- 6041 Aug, [facility] [place] [facility] [address] [id number] [place] [address]- 2818 Aug, [facility] [place] [facility] [address] [id number] [place] [address] 8046 Aug, [facility] [place] [facility] [address] [id number] [place] [address]- 1060 Aug, [facility] [place] [facility] [address] [id number] [place] [address]- 2543 Aug, [facility] [place] [facility] [address] [id number] [place] [address]- 2634 Aug, [facility] [place] [facility] [address] [id number] [place] [address]- 2929 Aug, [facility] [place] [facility] [address] [id number] [place] [address]- 5086 Aug, [facility] [place] [facility] [address] [id number] [place] [address]- 9922 Jul, [facility] [place] [facility] [address] [id number] [place] [address] Jul, [facility] [place] [facility] [address] [id number] [place] [address]- 6600 Jul, [facility] [place] [facility] [address] [id number] [place] [address]- 6975 Jul, [facility] [place] [facility] [address] [id number] [place] [address]- 9930 Jul, [facility] [place] [facility] [address] [id number] [place] [address]- 6817 Jul, [facility] [place] [facility] [address] [id number] [place] [address]- 6049 Jun, [facility] [place] [facility] [address] [id number] [place] [address]- 5460 Jun, [facility] [place] [facility] [address] [id number] [place] [address]- 8985 Jun, [facility] [place] [facility] [address] [id number] [place] [address]- 6350 Jun, [facility] [place] [facility] [address] [id number] [address]- 3784 Jun, [facility] [place] [facility] [address] [id number], [place] [address]- 6066 Jun, [facility] [place] [facility] [address] [id number] [place] [address]- 5640 Jun, [facility] [place] [facility] [address] [id number], [place] [address]- 5352 Jun, [facility] [place] [facility] [address] [id number] [place] [address]- 2953 Jun, [facility] [place] [facility] [address] [id number] [place] [address]- 6521 Jun, 2012 [facility] [place] [facility] [address] [id number] [place] [address]- 2783 May, 2012 [facility] [place] [facility] [address] [id number] [place] [address]- 8850 May, 2012 [facility] [place] [facility] [address] [id number] [place] [address]- 0683 May, 2012 [facility] [place] [facility] [address] [id number] [place] [address]- 2255 May, 2012 [facility] [place] [facility] [address] [id number] [place] [address]- 3177 May, 2012 [facility] [place] [facility] [address] [id number] [place] [address]- 7969 May, 2012 [facility] [place] [facility] [address] [id number] [place] [address]- 1255 May, 2012 [facility] [place] [facility] [address] [id number] [place] [address]- 8073 May, 2012 [facility] [place] [facility] [address] [id number] [place] [address]- 9777 May, [facility] [place] [facility] [address] [id number] [place] [address]- 7550 May, [facility] [place] [facility] [address] [id number] [place] [address]- 1551 17 May, 2012 [facility] [place] [facility] [address] [id number] [place] [address]- 2251 16 May, 2012 [facility] [place] [facility] [address] [id number] [place] [address]- 5772 16 May, 2012 [facility] [place] [facility] [address] [id number] [place] [address] 16 May, 2012 [facility] [place] [facility] [address] [id number] [place] [address]- 1962 May, [facility] [place] [facility] [address] [id number] [place] [address]- 0106 Apr, [facility] [place] [facility] [address] [id number] [place] [address]- 0213 Apr, [facility] [place] [facility] [address] [id number] [place] [address] Apr, [facility] [place] [facility] [address] [id number] [place] [address]- 6656 Mar, [facility] [place] [facility] [address] [id number] [place] [address]- 1090 Mar, [facility] [place] [facility] [address] [id number] [place] [address]- 9270 Mar, [facility] [place] [facility] [address] [id number] [place] [address]- 8258 Mar, [facility] [place] [facility] [address] [id number] [place] [address]- 8067 Mar, [facility] [place] [facility] [address] [id number] [place] [address]- 2783 Mar, [facility] [place] [facility] [address] [id number] [place] [address]- 9167 Feb, [facility] [place] [facility] [address] [id number] [place] [address]- 7886 Feb, [facility] [place] [facility] [address] [id number], [place] [address]- 8426 Feb, [facility] [place] [facility] [address] [id number] [place] [address]- 1946 Feb, [facility] [place] [facility] [address] [id number] [place] [address]- 1339 Feb, [facility] [place] [facility] [address] [id number] [place] [address]- 9751 Feb, [facility] [place] [facility] [address] [id number], [place] [address]- 4910 Feb, [facility] [address] [id number] [place] [address]- 8043 Feb, [facility] [address] [id number] [place] [address]- 2304 Feb, [facility] [address] [id number] [place] [address]- 1497 Feb, [facility] [address] [id number] [place] [address]- 7760 Jan, [facility] [address] [id number] [place] [address]- 8045 Jan, [facility] [address] [id number] [place] [address]- 9945 Jan, [facility] [address] [id number] [place] [address]- 8647 Jan, [facility] [address] [id number] [place] [address]- 6115 December, [facility] [address] [id number] [place] [address]- 1324 December, [facility] [address] [id number] [place] [address]- 7594 December, [facility] [address] [id number] [place] [address]- 8989 Nov, [facility] [place] [facility] [address] [id number] [place] [address]- 6626 Nov, [facility] [place] [facility] [address] [id number] [place] [address]- 0114 Nov, [facility] [place] [facility] [address] [id number] [place] [address]- 4878 Nov, [facility] [place] [facility] [address] [id number] [place] [address]- 2143 Nov, [facility] [place] [facility] [address] [id number] [place] [address]- 5272 Nov, [facility] [place] [facility] [address] [id number] [place] [address]- 5053 Oct, [facility] [place] [facility] [address] [id number] [place] [address]- 7546 Oct, [facility] [place] [facility] [address] [id number] [place] [address]- 5420 Oct, [facility] [place] [facility] [address] [id number] [place] [address]- 3274 Sep, [facility] [place] [facility] [address] [id number] [place] [address]- 0736 Sep, [facility] [place] [facility] [address] [id number] [place] [address]- 3874 Sep, [facility] [place] [facility] [address] [id number] [place] [address]- 4218 Aug, [facility] [place] [facility] [address] [id number] [place] [address]- 4891 Aug, [facility] [place] [facility] [address] [id number] [place] [address]- 4852 Aug, [facility] [place] [facility] [address] [id number] [place] [address]- 0170 Aug, [facility] [place] [facility] [address] [id number] [place] [address]- 5212 Jul, [facility] [place] [facility] [address] [id number] [place] [address]- 8809 Jul, [facility] [place] [facility] [address] [id number] [place] [address]- 3416 Jul, [facility] [place] [facility] [address] [id number] [place] [address]- 1286 Jul, [facility] [place] [facility] [address] [id number], [place] [address]- 2766 Jun, [facility] [place] [facility] [address] [id number] [place] [address]- 3489 Jun, [facility] [place] [facility] [address] [id number] [place] [address]- 5691 Jun, [facility] [place] [facility] [address] [facility] [id number] [place] [address]- 5240 Jun, [facility] [place] [facility] [address] [id number], [place] [address]- 6449 Jun, [facility] [place] [facility] [address] [id number] [place] [address]- 4562 Jun, [facility] [place] [facility] [address] [facility] [id number], [place] [address]- 4150 Jun, [facility] [place] [facility] [address] [facility] [id number], [place] [address]- 9424 Jun, [facility] [place] [facility] [address] [id number], [place] [address]- 6371 May, [facility] [place] [facility] [address] [id number], [place] [address]- 2968 30 May, 2012 [facility] [place] [facility] [address] [id number], [place] [address]- 4404 May, [facility] [place] [facility] [address] [id number], [place] [address]- 7797 18 May, 2012 [facility] [place] [facility] [address] [id number], [place] [address]- 8901 2012 [facility] [place] [facility] [address] [id number], [place] [address]- 9067 13 May, 2012 [facility] [place] [facility] [address] [facility] [id number], [place] [address]- 0894 11 May, 2012 [facility] [place] [facility] [address] [facility] [id number], [place] [address]- 7190 11 May, 2012 [facility] [place] [facility] [address] [id number] [place] [address]- 0437 10 May, 2012 [facility] [address] [id number] [place] [address]- 8034 08 May, 2012 [facility] [place] [facility] [address] [id number] [place] [address]- 0476 24 Apr, 2012 [facility] [address] [id number] [place] [address]- 1636 19 Apr, 2012 [facility] [place] [facility] [address] [id number] [place] [address]- 5219 18 Apr, 2012 [facility] [address] [id number] [place] [address]- 7435 17 Apr, 2012 [facility] [place] [facility] [address] [id number] [place] [address]- 2732 16 Apr, 2012 [facility] [place] [facility] [address] [id number] [place] [address]- 9836 10 Apr, 2012 [facility] [address] [id number] [place] [address]- 6513 29 Mar, 2012 [facility] [place] [facility] [address] [id number] [place] [address]- 7861 Mar, [facility] [address] [id number] [place] [address]- 1216 Mar, [facility] [place] [facility] [address] [id number] [place] [address]- 2549 Mar, [facility] [place] [facility] [address] [id number] [place] [address]- 1337 Mar, [facility] [place] [facility] [address] [id number] [place] [address]- 7774 Mar, [facility] [place] [facility] [address] [id number] [place] [address]- 4774 Feb, [facility] [place] [facility] [address] [id number] [place] [address]- 5054 Feb, [facility] [place] [facility] [address] [id number] [place] [address]- 0827 18 Feb, 2012 [facility] [place] [facility] [address] [id number] [place] [address]- 5756 17 Feb, 2012 [facility] [place] [facility] [address] [id number] [place] [address]- 4469 13 Feb, 2012 [facility] [place] [facility] [address] [id number] [place] [address]- 9797 Feb, [facility] [place] [facility] [address] [id number] [place] [address]- 8059 Feb, [facility] [place] [facility] [address] [id number] [place] [address]- 3587 Feb, [facility] [place] [facility] [address] [id number] [place] [address]- 1572 Feb, [facility] [place] [facility] [address] [id number] [place] [address]- 5652 Jan, [facility] [place] [facility] [address] [id number] [place] [address]- 9194 Jan, [facility] [place] [facility] [address] [id number] [place] [address]- 2906 Jan, [facility] [place] [facility] [address] [id number] [place] [address]- 9955 Jan, [facility] [place] [facility] [address] [id number] [place] [address]- 4676 15 Jan, 2012 [facility] [place] [facility] [address] [id number] [place] [address]- 2490 Jan, [facility] [place] [facility] [address] [id number] [place] [address]- 5714 08 Jan, 2012 [facility] [place] [facility] [address] [id number] [place] [address]- 6978 04 Jan, 2012 [facility] [place] [facility] [address] [id number] [place] [address]- 1949 Jan, [facility] [address] [id number] [place] [address]- 4633 December, [facility] [address] [id number] [place] [address]- 0228 December, [facility] [address] [id number] [place] [address]- 4593 December, [facility] [address] [id number] [place] [address]- 8735 December, [facility] [address] [id number] [place] [address]- 8263 December, [facility] [address] [id number] [place] [address]- 2983 December, [facility] [address] [id number] [place] [address]- 9819 December, [facility] [address] [id number] [place] [address]- 8741 December, [facility] [address] [id number] [place] [address]- 2920 December, [facility] [address] [id number] [place] [address]- 4040 December, [facility] [address] [id number] [place] [address]- 2419 30 Nov, 2011 [facility] [place] [facility] [address] [id number] [place] [address]- 5892 Nov, [facility] [place] [facility] [address] [id number] [place] [address]- 7306 Nov, [facility] [place] [facility] [address] [id number] [place] [address]- 9077 Nov, [facility] [place] [facility] [address] [id number] [place] [address]- 3118 16 Nov, 2011 [facility] [place] [facility] [address] [id number] [place] [address]- 9026 13 Nov, 2011 [facility] [place] [facility] [address] [id number] [place] [address]- 5716 09 Nov, 2011 [facility] [place] [facility] [address] [id number] [place] [address]- 2546 06 Nov, 2011 [facility] [place] [facility] [address] [id number] [place] [address]- 8436 05 Nov, 2011 [facility] [place] [facility] [address] [id number] [place] [address]- 2216 03 Nov, 2011 [facility] [place] [facility] [address] [id number] [place] [address]- 1683 30 Oct, 2011 [facility] [place] [facility] [address] [id number] [place] [address]- 1816 29 Oct, 2011 [facility] [place] [facility] [address] [id number] [place] [address]- 5909 23 Oct, 2011 [facility] [place] [facility] [address] [id number] [place] [address]- 0589 23 Oct, 2011 [facility] [place] [facility] [address] [id number] [place] [address]- 6830 21 Oct, 2011 [facility] [place] [facility] [address] [id number] [place] [address]- 3564 20 Oct, 2011 [facility] [place] [facility] [address] [id number] [place] [address]- 6425 19 Oct, 2011 [facility] [place] [facility] [address] [id number] [place] [address]- 4586 19 Oct, 2011 [facility] [place] [facility] [address] [id number] [place] [address]- 9816 16 Oct, 2011 [facility] [place] [facility] [address] [id number] [place] [address]- 5206 14 Oct, 2011 [facility] [place] [facility] [address] [id number] [place] [address]- 9947 14 Oct, 2011 [facility] [place] [facility] [address] [id number] [place] [address]- 3038 09 Oct, 2011 [facility] [place] [facility] [address] [id number] [place] [address]- 7656 08 Oct, 2011 [facility] [place] [facility] [address] [id number] [place] [address]- 8226 06 Oct, 2011 [facility] [place] [facility] [address] [id number] [place] [address]- 6589 02 Oct, 2011 [facility] [place] [facility] [address] [id number] [place] [address]- 5074 28 Sep, 2011 [facility] [place] [facility] [address] [id number] [place] [address]- 5714 24 Sep, 2011 [facility] [place] [facility] [address] [id number] [place] [address]- 8163 20 Sep, 2011 [facility] [place] [facility] [address] [id number] [place] [address]- 5786 17 Sep, 2011 [facility] [place] [facility] [address] [id number] [place] [address]- 6336 16 Sep, 2011 [facility] [place] [facility] [address] [id number] [place] [address]- 5682 14 Sep, 2011 [facility] [place] [facility] [address] [id number] [place] [address]- 7208 13 Sep, 2011 [facility] [place] [facility] [address] [id number] [place] [address]- 2565 10 Sep, 2011 [facility] [place] [facility] [address] [id number] [place] [address] 06 Sep, 2011 [facility] [place] [facility] [address] [id number] [place] [address] 03 Sep, 2011 [facility] [place] [facility] [address] [facility] [id number] [place] [address] 01 Sep, 2011 [facility] [place] [facility] [address] [id number] [place] [address] 30 Aug, 2011 [facility] [address] [id number] [place] [address] Aug, [facility] [place] [facility] [address] [id number] [place] [address] Aug, [facility] [address] [id number] [place] [address] Aug, [facility] [address] [id number] [place] [address] Aug, [facility] [address] [id number] [place] [address] Aug, [facility] [address] [id number] [place] [address] Aug, [facility] [address] [id number] [place] [address] 17 Aug, 2011 [facility] [address] [id number] [place] [address] 16 Aug, 2011 [facility] [address] [id number] [place] [address] Aug, [facility] [place] [facility] [address] [id number] [place] [address] Aug, [facility] [address] [id number] [place] [address] Aug, [facility] [place] [facility] [address] [id number] [place] [address] Aug, [facility] [place] [facility] [address] [id number] [place] [address] Aug, [facility] [place] [facility] [address] [id number] [place] [address] Aug, [facility] [place] [facility] [address] [id number] [place] [address] Aug, [facility] [address] [facility] [id number] [place] [address] Aug, [facility] [address] [facility] [id number] [address] Jul, [facility] [address] [facility] [id number] [address] Jul, [facility] [address] [facility] [id number], [place] [address] Jul, [facility] [address] [facility] [id number] [place] [address] Jul, [facility] [address] [facility] [id number], [place] [address] Jul, [facility] [address] [id number], [place] [address] Jul, [facility] [address] [facility] [id number], [place] [address] [address], [address] [facility] [address] [id number] [address] [address], [address] [facility] [address] [id number] [address] Jul, [facility] [address] [id number] [address] Jul, [facility] [address] [facility] [id number] [address] Jul, [facility] [address] [facility] [id number] [address] Jun, [facility] [address] [facility] [id number] [address] Jun, [facility] [address] [id number], [place] [address] Jun, IMMUNIZATIONS No Known Immunizations SOCIAL HISTORY Never Assessed REASON FOR VISIT headache, body ache. Symptoms began sunday with pain on the lower right abdominal area. PT was vomiting sat but not currently-[place], PT think she may still have a UTI that has not cleared up PLAN OF CARE Activity Details Follow Up prn Reason: VITAL SIGNS Height 61 in 2017-07-16 Weight 95.1 lbs 2017-07-16 Temperature 98.2 degrees Fahrenheit 2017-07-16 Heart Rate 68 bpm 2017-07-16 Respiratory Rate 18 2017-07-16 BMI 17.97 kg/m2 2017-07-16 Blood pressure systolic 98 mmHg 2017-07-16 Blood pressure diastolic 64 mmHg 2017-07-16 MEDICATIONS Medication Instructions Dosage Frequency Start Date End Date Duration Status Nadolol 40 MG Orally Once a day 0.5 tablet 24h 180 days Active Aldactone 50 MG Orally Once a day 1 tablet 24h 90 days Active Omeprazole 20 mg Orally Once a day 1 capsule 24h Jul, 30 day(s ) Active Oxycodone HCl 5 MG Orally Once a day 1 tablet at bedtime 24h Jun, 28 days Active Ativan 0.5 MG Orally Once a day 1 tablet as needed 24h December, 28 days Active Folic Acid 1 MG Orally Once a day 1 tablet 24h 90 days Active Aciphex 20 mg Orally Once a day 1 tablet 24h 30 Active RESULTS No Results PROCEDURES Procedure Date Ordered Result Body Site INFLUENZA ASSAY W/OPTIC Jul 16, 2017 URINALYSIS, AUTO, W/O SCOPE Jul 16, 2017 No Charge Jul 16, 2017 URINE CULTURE/COLONY COUNT Jul 16, 2017 INSTRUCTIONS MEDICATIONS ADMINISTERED No Known Medications [...]
--- OUTSIDE RECORDS SUMMARY | 2018-08-05 03:36 | XMS REPORT ---
Author Author HEATHER FINE [facility] eClinicalWorks Address Unknown Phone Unavailable Care Team Providers Care Farm Instructor Name Role Phone HEATHER FINE CP Unavailable [...] Date End Date Status Dosage Oxycodone HCl [facility] [address]-51 5 MG Orally Once a day Mar 29, 2015 1 tablet at bedtime Results No Known Results Summary Purpose eClinicalWorks Submission
--- OUTSIDE RECORDS SUMMARY | 2018-08-05 03:36 | XMS REPORT ---
Author Author HEATHER FINE [facility] eClinicalWorks Address Unknown Phone Unavailable Care Team Providers Care Orthopedic Nurse Practitioner Name Role Phone HEATHER FINE CP Unavailable Allergies, Adverse Reactions, Alerts Substance Reaction Event Type Sulfamethoxazole hives Drug Allergy Problems Problem Type Condition Code Onset Dates Condition Status Assessment Dysthymia F34.1 Active Assessment Chronic back pain M54.9 Active Problem Chronic back pain M54.9 Active Problem Asthma, unspecified, unspecified status 493.90 Active Problem Dysthymia F34.1 Active Problem Lumbago 724.2 Active Problem Esophageal varices without mention of bleeding 456.1 Active Problem Unspecified thrombocytopenia 287.5 Active Problem Anxiety state, unspecified 300.00 Active Medications Medication Code System Code Instructions Start Date End Date Status Dosage Aciphex [facility] [address]-04 20 MG Orally Once a day [address] [facility] [address]-81 5 MG Orally Once a day at hs Mar 29, [address] [facility] [address]-77 50 MG Once a day Aug 25, 2014 Jul 21, 2015 1 Tablet by Oral route Nadolol [facility] 19746605113 40 MG TAKE ONE-HALF TABLET BY MOUTH DAILY ZyrTEC [facility] [address]-34 10 MG Orally Once a day in AM Mar 29, 2015 October 25, 2015 1 tablet as needed for cough Folic Acid [facility] [address]-78 1 MG Once a day October 25, 2015 TAKE ONE TABLET BY MOUTH ONCE DAILY Prozac [facility] [address]-05 20 MG Orally Once a day Jul 13, 2015 1 capsule in the morning Procedures Procedure Coding System Code Date Office Visit, Est Pt., Level 3 CPT-4 46704 Jul 13, 2015 Vital Signs Date/Time: Jul 13, 2015 Temperature 98.1 F Weight 105.0 lbs Height 61 in BMI 19.84 Index Blood Pressure Diastolic 80 mmHg Blood Pressure Systolic 112 mmHg Cardiac Monitoring Heart Rate 64 bpm Results No Known Results Summary Purpose eClinicalWorks Submission
--- OUTSIDE RECORDS SUMMARY | 2018-08-05 03:37 | XMS REPORT ---
Author Author HEATHER FINE Organization [facility] Address [address] [place] [address] Care Team Providers Care Aba Tutor Name Role Phone HEATHER FINE Unavailable PROBLEMS Type Condition ICD9-CM Code CHY94-KF Code Onset Dates Condition Status SNOMED Code Problem Unspecified cirrhosis of liver K74.60 Active 285185932 Problem Lymphocytosis D72.820 Active 16376977 Problem Secondary esophageal varices with bleeding I85.11 Active 21830884 Problem Anxiety F41.9 Active 77067585 Problem Asthma J45.909 Active 995323589 Problem Chronic back pain M54.9 Active 720143575 Problem Dysthymia F34.1 Active 22142865 Problem Thrombocytosis D47.3 Active 3234916 Problem Splenomegaly R16.1 Active 18676926 Problem 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 Active 324200697 Problem History of hepatitis C Z86.19 Active [id number] ALLERGIES No Information ENCOUNTERS Encounter Location Date Diagnosis [place] [id number] [place] [address] 76117- 6622 Oct, Chronic back pain M54.9 and Anxiety F41.9 [place] [address] [place] [id number] [place] [address] 46691- 3884 Oct, [place] [address] [address] [id number] [place] [address] 61282- 6345 Sep, Chronic back pain M54.9 ; Anxiety F41.9 ; Pain of left leg M79.605 and Pain in right leg M79.604 [place] [address] [place] [id number] [place] [address] 88194- 9448 Sep, Anxiety F41.9 and Chronic back pain M54.9 [place] [address] 71059- 3512 Sep, [facility] [id number] [place] [address] 44358- 5584 Aug, Anxiety F41.9 [facility] [id number] [place] [address] 77295- 9946 Jul, Anxiety F41.9 [facility] [address] 04223- 5054 Jul, [facility] [address] 36622- 2865 Jul, Viral syndrome B34.9 ; Chronic back pain M54.9 and Dysuria R30.0 [facility] [id number] [place] [address] 63680- 9140 Jun, [facility] [id number] [place] [address] 05582- 6725 Jun, Anxiety F41.9 [facility] [id number] [place] [address] 05498 -6163 Jun, Dysuria R30.0 and Acute cystitis without hematuria N30.00 [facility] [id number] [place] [address] 46435- 3469 Jun, [facility] [id number] [place] [address] 90608- 6704 May, Anxiety F41.9 [facility] [id number] [place] [address] 70987- 8992 May, Anxiety F41.9 [facility] [id number] [place] [address] 60680- 7385 Apr, [facility] [address] [id number] [place] [address] 18657- 7995 Apr, Chronic back pain M54.9 and Anxiety F41.9 [facility] [id number] [place] [address] 96777- 4629 Mar, [facility] [address] [address]- 0885 Mar, [facility] [address] [address]- 1580 Mar, Well woman exam Z01.419 ; Cervical cancer screening Z12.4 ; Breast cancer screening Z12.31 and Colon cancer screening Z12.11 [facility] [id number] [place] [address] 96343- 5422 Mar, Chronic back pain M54.9 and Anxiety F41.9 [facility] [id number] [place] [address] 28000- 3552 Mar, [facility] [id number] [place] [address] 62233- 8308 Feb, Chronic back pain M54.9 and Anxiety F41.9 [facility] [id number] [place] [address] 59965- 0147 Feb, [facility] [id number] [place] [address] 22606- 1175 Feb, [facility] [id number] [place] [address] 53656- 2696 Jan, Chronic back pain M54.9 and Anxiety F41.9 [facility] [address] [address]- 3865 Jan, [facility] [address] [address]- 2670 Jan, [facility] [id number] [address]- 6406 December, Chronic back pain M54.9 and Anxiety F41.9 [facility] [id number] [address]- 0264 Nov, Chronic back pain M54.9 and Anxiety F41.9 [facility] [id number] [address]- 0996 Oct, Chronic back pain M54.9 and Anxiety F41.9 [facility] [id number] [place] [address] 02075- 5796 Oct, Chronic back pain M54.9 [facility] [address] [place] [address] 30386- 6196 Sep, Anxiety F41.9 and Chronic back pain M54.9 [facility] [id number] [place] [address] 49287- 5709 Aug, Anxiety F41.9 and Chronic back pain M54.9 [facility] [id number] [place] [address] 55806- 2216 Aug, [facility] [address] [id number] [place] [address] 98253- 8972 Jul, Chronic back pain M54.9 and Anxiety F41.9 [facility] [address] [id number] [place] [address] 26196- 5849 Jul, Anxiety F41.9 and Chronic back pain M54.9 [facility] [id number] [id number] Jul, [facility] [address] [place] [address] 12265- 5806 Jul, Anxiety F41.9 [facility] [address] [place] [address] 53136- 2335 Jul, Anxiety F41.9 and Dysuria R30.0 [facility] [address] [place] [address] 34065- 3322 Jul, Chronic back pain M54.9 and Anxiety F41.9 [facility] [address] [place] [address] 79968- 0741 Jun, Chronic back pain M54.9 [facility] [address] [id number] [place] [address] 01716- 0317 Jun, Chronic back pain M54.9 [facility] [address] [facility] [id number] [address]- 5922 May, Anxiety F41.9 [facility] [address] [facility] [id number] [address]- 9826 May, Chronic back pain M54.9 [facility] [address] [facility] [id number] [place] [address] 93327- 2896 Apr, [facility] [address] [facility] [id number] [address] 2546 Apr, [facility] [address] [facility] [id number] [place] [address] 73087- 6652 Apr, [facility] [address] [facility] [id number] [place] [address] 18287- 8768 Apr, Chronic back pain M54.9 [facility] [address] [facility] [id number] [place] [address] 08990- 9103 Mar, Chronic back pain M54.9 [facility] [address] [facility] [id number] [place] [address] 84836- 8074 Feb, Grief F43.20 [facility] [address] [facility] [id number] [address]- 1175 Feb, Chronic back pain M54.9 and Anxiety F41.9 [facility] [address] [facility] [id number] [address]- 2091 Feb, Chronic back pain M54.9 [facility] [address] [facility] [id number], [place] [address]- 6019 Jan, Chronic back pain M54.9 [facility] [address] [facility] [id number] [address]- 2806 December, [facility] [address] [facility] [id number], [place] [address]- 4696 December, Grief F43.20 [facility] [address] [address]- 2445 Nov, [facility] [address] [place] [id number] [place] [address] 50451- 9395 28 Oct, 2015 Cervicalgia M54.2 ; Secondary esophageal varices with bleeding I85.11 and Mouth pain K13.79 [facility] [address] [place] [id number] [place] [address] 74019- 8865 Oct, [facility] [id number] [place] [address] 06206- 5684 14 Oct, 2015 [facility] [address] [id number] [place] [address] 89151- 8143 Sep, [facility] [id number] [place] [address] 88518- 7709 Sep, Acute maxillary sinusitis, recurrence not specified J01.00 [facility] [id number] [place] [address] 45576- 2473 Aug, [facility] [id number] [place] [address] 88141- 3932 Aug, [facility] [address] [id number] [place] [address] 94671- 2143 Aug, Dysuria R30.0 and Chronic back pain M54.9 [facility] [id number] [place] [address] 36149- 0853 Jul, [facility] [id number] [place] [address] 64505- 1772 Jul, [facility] [id number] [place] [address] 48505- 7891 Jul, [facility] [id number] [place] [address] 64947- 6002 Jul, Chronic back pain M54.9 [facility] [id number] [place] [address] 59203- 2376 Jul, Dysthymia F34.1 and Chronic back pain M54.9 [facility] [id number] [place] [address] 46311- 5546 Jun, [facility] [id number] [place] [address] 02544- 0241 Jun, [facility] [id number] [place] [address] 34689- 2556 May, [facility] [id number] [place] [address] 22029- 3542 May, [facility] [id number] [place] [address] 37801- 8564 May, [facility] [id number] [place] [address] 22190- 0390 May, Encounter for immunization Z23 [facility] [address] [id number] [place] [address] 51548- 2945 Apr, [facility] [id number] [place] [address] 78540- 5006 Apr, [facility] [id number] [place] [address] 67712- 6616 Mar, [facility] [id number] [place] [address] 91882- 5682 Mar, Back pain 724.5 [facility] [id number] [place] [address] 10928- 9949 Mar, Cough 786.2 and Back pain 724.5 [facility] [id number] [place] [address] 77576- 6412 Mar, [facility] [id number] [place] [address] 75115- 3194 Mar, [facility] [id number] [place] [address] 04163- 1408 December, [facility] [address] [place] [address]- 5687 December, [facility] [place] [facility] [address] [id number] [place] [address]- 7725 Nov, [facility] [place] [facility] [address] [id number] [place] [address]- 0662 Nov, [facility] [place] [facility] [address] [id number] [place] [address]- 1277 Oct, [facility] [place] [facility] [address] [id number] [place] [address]- 0106 Oct, [facility] [place] [facility] [address] [id number] [place] [address]- 1316 Sep, [facility] [place] [facility] [address] [id number] [place] [address]- 1051 Sep, [facility] [place] [facility] [address] [facility] [id number] [place] [address]- 0597 Sep, [facility] [place] [facility] [address] [id number] [place] [address]- 1334 Sep, [facility] [place] [facility] [address] [id number] [place] [address]- 5845 Sep, [facility] [place] [facility] [address] [facility] [id number] [place] [address]- 2944 Sep, [facility] [place] [facility] [address] [facility] [id number] [place] [address]- 5393 Sep, [facility] [place] [facility] [address] [id number] [place] [address]- 9856 Sep, [facility] [place] [facility] [address] [id number] [place] [address]- 0540 Aug, [facility] [place] [facility] [address] [id number] [place] [address]- 6379 Aug, [facility] [place] [facility] [address] [facility] [id number] [place] [address]- 2181 14 Aug, 2014 [facility] [place] [facility] [address] [id number] [place] [address]- 4782 Aug, [facility] [place] [facility] [address] [id number] [place] [address]- 0095 Aug, [facility] [place] [facility] [address] [id number] [place] [address]- 3021 Aug, [facility] [place] [facility] [address] [id number] [place] [address]- 5791 Aug, [facility] [place] [facility] [address] [id number] [place] [address]- 6425 Jul, [facility] [place] [facility] [address] [id number] [place] [address]- 4235 Jul, [facility] [place] [facility] [address] [id number] [place] [address]- 4223 Jul, [facility] [place] [facility] [address] [id number] [place] [address]- 4300 18 Jul, 2014 [facility] [place] [facility] [address] [id number] [place] [address]- 4092 Jul, [facility] [place] [facility] [address] [id number] [place] [address]- 3874 Jul, [facility] [place] [facility] [address] [id number] [place] [address]- 9253 Jul, [facility] [place] [facility] [address] [id number] [address]- 7805 Jul, [facility] [place] [facility] [address] [id number] [place] [address]- 4320 Jun, [facility] [place] [facility] [address] [id number] [place] [address]- 9662 Jun, [facility] [place] [facility] [address] [id number] [place] [address]- 1259 Jun, [facility] [place] [facility] [address] [id number] [place] [address]- 6224 07 Jun, 2013 [facility] [place] [facility] [address] [id number] [place] [address]- 1291 07 Jun, 2014 [facility] [place] [facility] [address] [id number] [place] [address]- 1491 Jun, [facility] [place] [facility] [address] [id number] [place] 0775 Jun, [facility] [place] [facility] [address] [id number] [place] [address]- 8592 28 May, 2014 [facility] [place] [facility] [address] [id number] [place] [address]- 9763 28 May, 2014 [facility] [place] [facility] [address] [id number] [place] [address]- 3228 28 May, 2014 [facility] [place] [facility] [address] [id number] [place] [address]- 4063 28 May, 2014 [facility] [place] [facility] [address] [id number] [place] [address]- 0522 2014 [facility] [place] [facility] [address] [id number] [place] [address]- 1400 2014 [facility] [place] [facility] [address] [id number] [place] [address]- 8585 2014 [facility] [place] [facility] [address] [id number] [place] [address]- 0205 2014 [facility] [place] [facility] [address] [id number] [place] [address]- 2566 13 May, 2014 [facility] [place] [facility] [address] [id number] [place] [address]- 4963 13 May, 2014 [facility] [place] [facility] [address] [id number] [place] [address]- 1692 10 May, 2014 [facility] [place] [facility] [address] [id number] [place] [address]- 8489 May, [facility] [place] [facility] [address] [id number] [place] [address]- 9715 May, [facility] [place] [facility] [address] [id number] [place] [address]- 0611 May, [facility] [place] [facility] [address] [id number] [place] [address]- 2719 Apr, [facility] [place] [facility] [address] [id number] [place] [address]- 3447 Apr, [facility] [place] [facility] [address] [id number] [place] [address]- 4747 Apr, [facility] [place] [facility] [address] [id number] [place] [address]- 3821 Apr, [facility] [place] [facility] [address] [id number] [place] [address]- 9803 Apr, [facility] [place] [facility] [address] [id number] [place] [address]- 3373 Apr, [facility] [place] [facility] [address] [id number] [place] [address]- 9165 Apr, [facility] [place] [facility] [address] [id number] [place] [address]- 0562 Mar, [facility] [place] [facility] [address] [id number] [place] [address]- 5982 Mar, [facility] [place] [facility] [address] [id number] [place] [address]- 8621 Mar, [facility] [place] [facility] [address] [id number] [place] [address]- 5745 Mar, [facility] [place] [facility] [address] [id number] [place] [address]- 9040 Mar, [facility] [place] [facility] [address] [id number] [place] [address]- 1761 Mar, [facility] [place] [facility] [address] [id number] [place] [address]- 2546 Feb, [facility] [place] [facility] [address] [id number] [place] 1014 Feb, [facility] [place] [facility] [address] [id number] [place] [address]- 0427 Feb, [facility] [place] [facility] [address] [id number] [place] [address]- 6253 Feb, [facility] [place] [facility] [address] [id number] [place] 3461 Feb, [facility] [place] [facility] [address] [id number] [place] [address]- 0305 Feb, [facility] [place] [facility] [address] [id number] [place] [address]- 4108 Feb, [facility] [place] [facility] [address] [id number] [place] [address]- 7454 Feb, [facility] [place] [facility] [address] [id number] [place] [address]- 1037 Jan, [facility] [place] [facility] [address] [id number] [place] [address]- 3389 Jan, [facility] [place] [facility] [address] [id number] [place] [address]- 8667 December, [facility] [place] [facility] [address] [id number] [place] [address]- 2855 December, [facility] [place] [facility] [address] [id number] [place] [address]- 5556 December, [facility] [place] [facility] [address] [id number] [place] 3641 December, [facility] [place] [facility] [address] [id number] [place] 0181 December, [facility] [place] [facility] [address] [id number] [place] 9929 December, [facility] [place] [facility] [address] [id number] [place] [address]- 0488 December, [facility] [address] [id number] [place] [address]- 1658 December, [facility] [address] [id number] [place] [address]- 7664 December, [facility] [address] [id number] [place] [address]- 8977 December, [facility] [address] [id number] [place] [address]- 3617 December, [facility] [address] [id number] [place] [address]- 9336 December, [facility] [address] [id number] [place] [address]- 2654 Nov, [facility] [address] [id number] [place] [address]- 3045 Nov, [facility] [address] [id number] [place] [address]- 4683 Nov, [facility] [address] [id number] [place] [address]- 1008 Nov, [facility] [address] [id number] [place] [address]- 9295 Nov, [facility] [place] [facility] [address] [id number] [place] [address]- 1642 Nov, [facility] [place] [facility] [address] [id number] [place] [address]- 8200 Nov, [facility] [place] [facility] [address] [id number] [place] [address]- 4345 Nov, [facility] [place] [facility] [address] [id number] [place] [address]- 2586 Nov, [facility] [place] [facility] [address] [id number] [place] [address] Nov, [facility] [place] [facility] [address] [id number] [place] [address] Nov, [facility] [place] [facility] [address] [id number] [place] [address] Nov, [facility] [place] [facility] [address] [id number] [place] [address] Nov, [facility] [place] [facility] [address] [id number] [place] [address] Oct, [facility] [place] [facility] [address] [id number] [place] [address] Oct, [facility] [place] [facility] [address] [id number] [place] [address] Sep, [facility] [place] [facility] [address] [id number] [place] [address] Sep, [facility] [place] [facility] [address] [id number] [place] [address] Sep, [facility] [place] [facility] [address] [id number] [place] [address] Sep, [facility] [place] [facility] [address] [facility] [id number] [place] [address] Sep, [facility] [place] [facility] [address] [facility] [id number] [place] [address] Sep, [facility] [place] [facility] [address] [id number] [place] [address] Sep, [facility] [place] [facility] [address] [id number] [place] [address] 18 Sep, 2013 [facility] [place] [facility] [address] [id number] [place] [address] Sep, [facility] [place] [facility] [address] [facility] [id number] [place] [address] Sep, [facility] [place] [facility] [address] [id number] [place] [address] 05 Sep, 2013 [facility] [place] [facility] [address] [id number] [place] [address] Sep, [facility] [place] [facility] [address] [id number] [place] [address] Aug, [facility] [place] [facility] [address] [id number] [place] [address] Aug, [facility] [place] [facility] [address] [id number] [place] [address] Aug, [facility] [place] [facility] [address] [id number] [place] [address] Aug, [facility] [place] [facility] [address] [id number] [place] [address] Aug, [facility] [place] [facility] [address] [id number] [place] [address] Aug, [facility] [place] [facility] [address] [id number] [place] [address] Aug, [facility] [place] [facility] [address] [id number] [place] [address] Aug, [facility] [place] [facility] [address] [id number] [place] [address] Aug, [facility] [place] [facility] [address] [id number] [place] [address] Aug, [facility] [place] [facility] [address] [id number] [place] [address] Aug, [facility] [place] [facility] [address] [id number] [place] [address] Aug, [facility] [place] [facility] [address] [id number] [place] [address] Aug, [facility] [place] [facility] [address] [id number] [place] [address] Aug, [facility] [address] [id number] [place] [address] Aug, [facility] [place] [facility] [address] [id number] [place] [address] Aug, [facility] [place] [facility] [address] [id number] [place] [address] Aug, [facility] [place] [facility] [address] [id number] [place] [address] Aug, [facility] [place] [facility] [address] [id number] [place] [address] Aug, [facility] [place] [facility] [address] [id number] [place] [address] Aug, [facility] [place] [facility] [address] [id number] [place] [address] Aug, [facility] [place] [facility] [address] [id number] [place] [address] Aug, [facility] [place] [facility] [address] [id number] [place] [address] Aug, [facility] [place] [facility] [address] [id number] [place] [address] Jul, [facility] [place] [facility] [address] [id number] [address] Jul, [facility] [place] [facility] [address] [id number], [place] [address] Jul, [facility] [place] [facility] [address] [id number] [place] [address] Jul, [facility] [place] [facility] [address] [id number], [place] [address] Jul, [facility] [place] [facility] [address] [id number], [place] [address] Jul, [facility] [place] [facility] [address] [id number] [place] [address] Jun, [facility] [place] [facility] [address] [id number] [place] [address] 1723 Jun, [facility] [place] [facility] [address] [id number] [place] [address]- [address]248 Jun, [facility] [place] [facility] [address] [id number] [place] [address]- 2273 Jun, [facility] [place] [facility] [address] [id number] [place] [address] 1359 Jun, [facility] [place] [facility] [address] [id number] [place] [address]- 2061 Jun, [facility] [place] [facility] [address] [id number] [place] [address]- 9656 Jun, [facility] [place] [facility] [address] [id number] [place] [address]- 6805 Jun, [facility] [place] [facility] [address] [id number] [place] [address]- 2788 Jun, [facility] [place] [facility] [address] [id number] [place] [address]- 1494 Jun, [facility] [place] [facility] [address] [facility] [id number] [place] [address]- 6166 May, [facility] [place] [facility] [address] [id number] [place] [address]- 6818 May, [facility] [place] [facility] [address] [id number], [place] [address] 6[address] May, [facility] [place] [facility] [address] [id number] [place] [address]- 9289 May, [facility] [place] [facility] [address] [facility] [id number] [place] [address]- 8129 May, [facility] [place] [facility] [address] [id number], [place] [address] May, [facility] [place] [facility] [address] [id number] [place] [address]- 7142 May, [facility] [place] [facility] [address] [id number] [place] [address]- 0575 May, [facility] [place] [facility] [address] [id number] [place] [address]- 2919 May, [facility] [place] [facility] [address] [id number] [place] [address]- 3016 May, [facility] [place] [facility] [address] [id number] [place] [address]- 2442 17 May, 2013 [facility] [place] [facility] [address] [id number] [place] [address]- 5226 May, [facility] [place] [facility] [address] [id number] [place] [address]- 1265 May, [facility] [place] [facility] [address] [id number] [place] [address]- 5417 May, [facility] [place] [facility] [address] [id number] [place] [address]- 0238 May, [facility] [place] [facility] [address] [id number] [place] [address]- 4478 24 Apr, 2013 [facility] [place] [facility] [address] [id number] [place] [address]- 4472 Apr, [facility] [place] [facility] [address] [id number] [place] [address]- 0008 Apr, [facility] [place] [facility] [address] [id number] [place] [address]- 5321 Mar, [facility] [place] [facility] [address] [id number] [place] [address]- 4793 Mar, [facility] [place] [facility] [address] [id number] [place] [address]- 0259 Mar, [facility] [place] [facility] [address] [id number] [place] [address]- 2546 Mar, [facility] [place] [facility] [address] [id number] [place] [address]- 9535 Mar, [facility] [place] [facility] [address] [id number] [place] [address]- 7424 Mar, [facility] [place] [facility] [address] [id number] [place] [address]- 7182 Feb, [facility] [place] [facility] [address] [id number] [place] [address]- 2163 Feb, [facility] [place] [facility] [address] [id number] [place] [address]- 0616 Feb, [facility] [place] [facility] [address] [id number] [place] [address]- 9921 Feb, [facility] [place] [facility] [address] [id number] [place] [address]- 9340 Feb, [facility] [place] [facility] [address] [id number] [place] [address]- 0319 Feb, [facility] [place] [facility] [address] [id number] [place] [address]- 6532 Feb, [facility] [place] [facility] [address] [id number] [place] [address]- 6575 Feb, [facility] [place] [facility] [address] [id number] [place] [address]- 1954 Feb, [facility] [place] [facility] [address] [id number] [place] [address]- 3475 Feb, [facility] [place] [facility] [address] [id number] [place] [address]- 3247 Jan, [facility] [place] [facility] [address] [id number] [place] [address]- 2547 Jan, [facility] [place] [facility] [address] [id number] [place] [address]- 2622 Jan, [facility] [place] [facility] [address] [id number] [place] [address]- 6071 Jan, [facility] [address] [id number] [place] [address]- 0223 December, [facility] [address] [id number] [place] [address]- 0138 December, [facility] [address] [id number] [place] [address]- 0693 December, [facility] [address] [id number] [place] [address]- 4584 Nov, [facility] [address] [id number] [place] [address]- 7703 Nov, [facility] [address] [id number] [place] [address]- 8093 Nov, [facility] [address] [id number] [place] [address]- 6283 Nov, [facility] [address] [id number] [place] [address]- 9776 Nov, [facility] [address] [id number] [place] [address]- 6425 Nov, [facility] [address] [id number] [place] [address]- 5152 Oct, [facility] [address] [id number] [place] [address]- 5104 Oct, [facility] [address] [id number] [place] [address]- 5527 Oct, [facility] [place] [facility] [address] [id number] [place] [address]- 3496 Sep, [facility] [address] [id number] [place] [address]- 2546 Sep, [facility] [address] [id number] [place] [address]- 0158 Sep, [facility] [place] [facility] [address] [id number] [place] [address]- 2171 Aug, [facility] [place] [facility] [address] [id number] [place] [address]- 6444 Aug, [facility] [place] [facility] [address] [id number] [place] [address]- 2539 Aug, [facility] [place] [facility] [address] [id number] [place] [address]- 3786 Aug, [facility] [place] [facility] [address] [id number] [place] [address]- 9589 Jul, [facility] [place] [facility] [address] [id number] [place] [address]- 4419 Jul, [facility] [place] [facility] [address] [id number] [place] [address]- 3243 Jul, [facility] [place] [facility] [address] [id number] [place] [address]- 3354 Jul, [facility] [place] [facility] [address] [id number] [place] [address]- 7404 Jun, [facility] [place] [facility] [address] [id number] [place] [address]- 2926 Jun, [facility] [place] [facility] [address] [id number], [place] [address]- 4527 Jun, [facility] [place] [facility] [address] [id number], [place] [address]- 9896 Jun, [facility] [place] [facility] [address] [id number] [place] [address]- 7512 Jun, [facility] [place] [facility] [address] [id number], [place] [address]- 8973 Jun, [facility] [place] [facility] [address] [id number] [place] [address]- 4109 Jun, [facility] [place] [facility] [address] [id number] [place] [address]- 8657 02 Jun, 2012 [facility] [place] [facility] [address] [id number] [place] [address]- 1804 30 May, 2012 [facility] [place] [facility] [address] [id number] [place] [address]- 9593 30 May, 2012 [facility] [place] [facility] [address] [id number] [place] [address]- 4931 18 May, 2012 [facility] [place] [facility] [address] [id number] [place] [address]- 9410 18 May, 2012 [facility] [place] [facility] [address] [id number] [place] [address]- 1247 2012 [facility] [place] [facility] [address] [id number] [place] [address]- 3640 13 May, 2012 [facility] [place] [facility] [address] [id number] [place] [address]- 2673 11 May, 2012 [facility] [place] [facility] [address] [id number] [place] [address]- 7345 11 May, 2012 [facility] [place] [facility] [address] [id number] [place] [address]- 9600 10 May, 2012 [facility] [place] [facility] [address] [facility] [id number] [place] [address]- 7424 08 May, 2012 [facility] [place] [facility] [address] [id number] [place] [address]- 1719 24 Sep, 2011 [facility] [place] [facility] [address] [id number] [place] [address]- 2542 19 Sep, 2011 [facility] [place] [facility] [address] [id number] [place] [address]- 1819 18 Sep, 2011 [facility] [place] [facility] [address] [id number] [place] [address]- 6506 17 Sep, 2011 [facility] [place] [facility] [address] [id number] [place] [address]- 3244 16 Apr, 2012 [facility] [place] [facility] [address] [id number] [place] [address]- 0360 Apr, [facility] [place] [facility] [address] [id number] [place] [address]- 6749 Mar, [facility] [place] [facility] [address] [id number] [place] [address]- 6534 Mar, [facility] [place] [facility] [address] [id number] [place] [address]- 9263 Mar, [facility] [place] [facility] [address] [id number] [place] [address]- 9228 Mar, [facility] [place] [facility] [address] [id number] [place] [address]- 6688 Mar, [facility] [place] [facility] [address] [id number] [place] [address]- 6647 Mar, [facility] [place] [facility] [address] [id number] [place] [address]- 1109 Feb, [facility] [place] [facility] [address] [id number] [place] [address]- 8004 Feb, [facility] [place] [facility] [address] [id number] [place] [address]- 6046 Feb, [facility] [place] [facility] [address] [id number] [place] [address]- 5229 Feb, [facility] [place] [facility] [address] [id number] [place] [address]- 6452 Feb, [facility] [place] [facility] [address] [id number] [place] [address]- 5533 Feb, [facility] [place] [facility] [address] [id number] [place] [address]- 3696 Feb, [facility] [place] [facility] [address] [id number] [place] [address]- 6468 Feb, [facility] [place] [facility] [address] [id number] [place] [address]- 6436 Feb, [facility] [place] [facility] [address] [id number] [place] [address]- 4670 Jan, [facility] [place] [facility] [address] [id number] [place] [address]64 Jan, [facility] [place] [facility] [address] [id number] [place] [address]- 8555 Jan, [facility] [place] [facility] [address] [id number] [place] [address]- 0801 Jan, [facility] [place] [facility] [address] [id number] [place] [address]- 5956 Jan, [facility] [place] [facility] [address] [id number] [place] [address]- 1518 Jan, [facility] [place] [facility] [address] [id number] [place] [address]- 3454 Jan, [facility] [place] [facility] [address] [id number] [place] [address]- 5350 Jan, [facility] [place] [facility] [address] [id number] [place] [address]- 1486 Jan, [facility] [place] [facility] [address] [id number] [place] [address]- 1902 December, [facility] [place] [facility] [address] [id number] [place] [address]- 6742 December, [facility] [place] [facility] [address] [id number] [place] [address]- 5556 December, [facility] [place] [facility] [address] [id number] [place] [address]- 7845 December, [facility] [place] [facility] [address] [id number] [place] [address]- 5553 December, [facility] [place] [facility] [address] [id number] [place] [address]- 5947 December, [facility] [place] [facility] [address] [id number] [place] [address]- 6912 December, [facility] [address] [id number] [place] [address]- 1098 December, [facility] [address] [id number] [place] [address]- 1511 December, [facility] [address] [id number] [place] [address]- 3051 December, [facility] [address] [id number] [place] [address]- 2865 Nov, [facility] [address] [id number] [place] [address]- 7326 Nov, [facility] [address] [id number] [place] [address]- 7236 Nov, [facility] [address] [id number] [place] [address]- 7423 Nov, [facility] [address] [id number] [place] [address]- 1953 16 Nov, 2011 [facility] [address] [id number] [place] [address]- 2715 Nov, [facility] [address] [id number] [place] [address]- 7919 Nov, [facility] [address] [id number] [place] [address]- 8335 Nov, [facility] [address] [id number] [place] [address]- 5728 Nov, [facility] [address] [id number] [place]349 Nov, [facility] [address] [id number] [place] 9285 Oct, [facility] [address] [id number] [place] [address]- 2564 Oct, [facility] [place] [facility] [address] [id number] [place] [address]- 2587 23 Oct, 2011 [facility] [place] [facility] [address] [id number] [place] [address]- 9746 23 Oct, 2011 [facility] [place] [facility] [address] [id number] [place] [address]- 5606 21 Oct, 2011 [facility] [place] [facility] [address] [id number] [place] [address]- 7096 20 Oct, 2011 [facility] [place] [facility] [address] [id number] [place] [address]- 4424 19 Oct, 2011 [facility] [place] [facility] [address] [id number] [place] [address]- 5036 19 Oct, 2011 [facility] [place] [facility] [address] [id number] [place] [address]- 7956 16 Oct, 2011 [facility] [place] [facility] [address] [id number] [place] [address]- 2270 14 Oct, 2011 [facility] [place] [facility] [address] [id number] [place] [address]- 3092 14 Oct, 2011 [facility] [place] [facility] [address] [id number] [place] [address]- 8859 09 Oct, 2011 [facility] [place] [facility] [address] [id number] [place] [address]- 3646 08 Oct, 2011 [facility] [place] [facility] [address] [id number] [place] [address]- 2966 06 Oct, 2011 [facility] [place] [facility] [address] [id number] [place] [address]- 4596 02 Oct, 2011 [facility] [place] [facility] [address] [id number] [place] [address]- 7556 28 Sep, 2011 [facility] [place] [facility] [address] [id number] [place] [address]- 7306 24 Sep, 2011 [facility] [place] [facility] [address] [id number] [place] [address]- 8636 20 Sep, 2011 [facility] [place] [facility] [address] [id number] [place] [address] 2546 17 Sep, 2011 [facility] [place] [facility] [address] [id number] [place] [address] 2546 16 Sep, 2011 [facility] [place] [facility] [address] [id number] [place] [address] 2546 14 Sep, 2011 [facility] [place] [facility] [address] [id number] [place] [address] 2546 13 Sep, 2011 [facility] [place] [facility] [address] [id number] [place] [address]- 9696 10 Sep, 2011 [facility] [place] [facility] [address] [id number] [place] [address] 2546 06 Sep, 2011 [facility] [place] [facility] [address] [id number] [place] [address] 2546 03 Sep, 2011 [facility] [place] [facility] [address] [id number] [place] [address]- 7272 Sep, [facility] [place] [facility] [address] [id number] [place] [address]- 6776 Aug, [facility] [place] [facility] [address] [id number] [place] [address]- 1676 Aug, [facility] [place] [facility] [address] [id number] [place] [address] 2546 Aug, [facility] [place] [facility] [address] [id number] [place] [address] 2546 Aug, [facility] [place] [facility] [address] [id number] [place] [address] 2546 Aug, [facility] [place] [facility] [address] [id number] [place] [address] 2546 Aug, [facility] [place] [facility] [address] [id number] [place] [address]- 5375 Aug, [facility] [address] [id number] [place] [address]- 3701 17 Aug, 2011 [facility] [place] [facility] [address] [id number] [place] [address]- 8631 16 Aug, 2011 [facility] [place] [facility] [address] [id number] [place] [address]- 8861 13 Aug, 2011 [facility] [place] [facility] [address] [id number] [place] [address]- 3360 Aug, [facility] [address] [id number] [place] [address]- 4889 Aug, [facility] [place] [facility] [address] [id number] [place] [address]- 4418 Aug, [facility] [address] [id number] [place] [address]- 9228 Aug, [facility] [place] [facility] [address] [id number] [place] [address]- 8461 Aug, [facility] [place] [facility] [address] [id number] [place] [address]- 9532 Aug, [facility] [place] [facility] [address] [id number] [place] [address]- 1079 Aug, [facility] [place] [facility] [address] [id number] [place] [address]- 4024 30 Jul, 2011 [facility] [place] [facility] [address] [id number] [place] [address]- 0248 28 Jul, 2011 [facility] [place] [facility] [address] [id number] [place] [address]- 7994 Jul, [facility] [place] [facility] [address] [id number] [place] [address]- 7989 23 Jul, 2011 [facility] [place] [facility] [address] [id number] [place] [address]- 0941 19 Jul, 2011 [facility] [place] [facility] [address] [id number] [address] Jul, [facility] [id number] [address] Jul, [facility] [id number], [place] [address] Jul, [facility] [id number] [address] Jul, [facility] [id number] [address] Jul, [facility] [id number] [address] Jul, [facility] [id number] [address] Jun, [facility] [address], [place] [address] Jun, [facility] [id number], [place] [address] Jun, IMMUNIZATIONS No Known Immunizations SOCIAL HISTORY Never Assessed REASON FOR VISIT Controlled Med Refill 02/20/2017 PLAN OF CARE VITAL SIGNS MEDICATIONS Medication Instructions Dosage Frequency Start Date End Date Duration Status Ativan 0.5 MG Orally Once a day 1 tablet as needed 24h December, 28 days Active Oxycodone HCl 5 MG Orally Once a day 1 tablet at bedtime 24h Feb, 28 days Active RESULTS No Results PROCEDURES [...]
--- OUTSIDE RECORDS SUMMARY | 2018-08-05 03:38 | XMS REPORT ---
Author Author HEATHER FINE Organization [facility] Address [address] [place] [address] Care Team Providers Care Tuber Helper Name Role Phone HEATHER FINE Unavailable PROBLEMS Type Condition ICD9-CM Code [id number] Code Onset Dates Condition Status SNOMED Code Problem Unspecified cirrhosis of liver K74.60 Active 645652353 Problem Lymphocytosis D72.820 Active 52591230 Problem Secondary esophageal varices with bleeding I85.11 Active 13523821 Problem Anxiety F41.9 Active 96706835 Problem Asthma J45.909 Active 913392740 Problem Chronic back pain M54.9 Active 260169117 Problem Dysthymia F34.1 Active 31954188 Problem Thrombocytosis D47.3 Active 9604774 Problem Splenomegaly R16.1 Active 71687739 Problem 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 Active 612044785 Problem History of hepatitis C Z86.19 Active [id number] ALLERGIES No Information SOCIAL HISTORY Never Assessed [...]
--- OUTSIDE RECORDS SUMMARY | 2018-08-05 03:38 | XMS REPORT ---
Author Author HEATHER FINE [facility] e[employer] Address Unknown Phone Unavailable Care Team Providers Care Managed Care Provider Name Role Phone HEATHER FINE CP Unavailable [...]
[2018-08-05 03:39] LABS: ANISOCYTOSIS SLIGHT; BAND NEUTROPHILS 4 %; BASOPHILS % (MANUAL) 1 %; ELLIPT/OVALOCYTES SLIGHT; EOSINOPHILS % (MANUAL) 2 %; LYMPHOCYTES % (MANUAL) 9 %; MONOCYTES % (MANUAL) 1 %; NEUTROPHILS % (MANUAL) 82 %; POIKILOCYTOSIS SLIGHT; POLYCHROMASIA SLIGHT; REACTIVE LYMPHOCYTES 1 %
--- OUTSIDE RECORDS SUMMARY | 2018-08-05 03:39 | XMS REPORT ---
Author Author HEATHER FINE [facility] [address] Address [address] [place] [address] Care Team Providers Care Soda Tester Name Role Phone HEATHER FINE Unavailable PROBLEMS Type Condition ICD9-CM Code [id number] Code Onset Dates Condition Status SNOMED Code Problem Asthma J45.909 Active 192171130 Problem History of hepatitis C Z86.19 Active 31919658252662 Problem Secondary esophageal varices with bleeding I85.11 Active 24705441 Assessment Chronic back pain M54.9 Jul, Active 030268278 Problem Anxiety F41.9 Active 43839707 Problem Dysthymia F34.1 Active 02920020 Problem Chronic back pain M54.9 Active 529206988 Problem Splenomegaly R16.1 Active 81517372 Problem 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 Active 353653135 Problem Thrombocytosis D47.3 Active 6237577 Problem Lymphocytosis D72.820 Active 73190833 ALLERGIES Substance Reaction Event Type Date Status Sulfamethoxazole-Trimethoprim Unknown Drug Allergy Jul, Active SOCIAL HISTORY No smoking Hx information available PLAN OF CARE VITAL SIGNS Height 61 in 2016-07-13 Weight 100.4 lbs 2016-07-13 Heart Rate 62 bpm 2016-07-13 Respiratory Rate 16 2016-07-13 BMI 18.97 kg/m2 2016-07-13 Blood pressure systolic 86 mmHg 2016-07-13 Blood pressure diastolic 60 mmHg 2016-07-13 MEDICATIONS Medication Instructions Dosage Frequency Start Date End Date Duration Status Ativan 0.5 MG Orally 3 times a day 1 tablet as needed 8h December, Active Aldactone 50 MG 1 Tablet by Oral route 24h 90 Active Oxycodone HCl 5 MG Orally Once a day 1 tablet at bedtime 24h Mar, 28 days Active Aciphex 20 mg Orally Once a day 1 tablet 24h Active Folic Acid 1 MG TAKE ONE TABLET BY MOUTH ONCE DAILY 90 Active Nadolol 40 mg Orally Once a day 0.5 tablet 24h Active RESULTS No Results PROCEDURES Procedure Date Ordered Related Diagnosis Body Site Office Visit, Est Pt., Level 3 Jul 13, 2016 IMMUNIZATIONS No Known Immunizations
--- OUTSIDE RECORDS SUMMARY | 2018-08-05 03:39 | XMS REPORT ---
Author Author HEATHER FINE [facility] e[employer] Address Unknown Phone Unavailable Care Team Providers Care Space Engineer Name Role Phone HEATHER FINE CP Unavailable Allergies No Known Allergies Problems Problem Type Condition Code Onset Dates Condition Status Problem Anxiety F41.9 Active Problem Secondary esophageal varices with bleeding I85.11 Active Problem Asthma J45.909 Active Problem Chronic back pain M54.9 Active Problem Thrombocytosis D47.3 Active Problem Dysthymia F34.1 Active Problem 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 Active Problem History of hepatitis C Z86.19 Active Problem Lymphocytosis D72.820 Active Problem Splenomegaly R16.1 Active Medications Medication Code System Code Instructions Start Date End Date Status Dosage Oxycodone HCl [facility] [address]-59 5 MG Orally Once a day Mar 29, 2015 1 tablet at bedtime Results No Known Results Summary Purpose eClinicalWorks Submission
--- OUTSIDE RECORDS SUMMARY | 2018-08-05 03:39 | XMS REPORT ---
Author Author HEATHER FINE [facility] e[employer] Address Unknown Phone Unavailable Care Team Providers Care Environmental Engineering Aide Name Role Phone HEATHER FINE CP Unavailable [...] Status Dosage Oxycodone HCl [facility] [address]-20 5 MG Orally Once a day Mar 29, 2015 1 tablet at bedtime Results No Known Results Summary Purpose eClinicalWorks Submission
--- OUTSIDE RECORDS SUMMARY | 2018-08-05 03:39 | XMS REPORT ---
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 Name Role Phone HEATHER FINE Unavailable PROBLEMS Type Condition ICD9-CM Code [id number] Code Onset Dates Condition Status SNOMED Code Problem Unspecified cirrhosis of liver K74.60 Active 580712717 Problem Lymphocytosis D72.820 Active 22668645 Problem Secondary esophageal varices with bleeding I85.11 Active 34904568 Problem Anxiety F41.9 Active 87601393 Problem Asthma J45.909 Active 750865926 Problem Chronic back pain M54.9 Active 596882286 Problem Dysthymia F34.1 Active 21575061 Problem Thrombocytosis D47.3 Active 3155855 Problem Splenomegaly R16.1 Active 08544027 Problem 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 Active 109418389 Problem History of hepatitis C Z86.19 Active [id number] ALLERGIES No Information ENCOUNTERS Encounter Location Date Diagnosis [place] [id number] [place] [address] 97147- 9828 Nov, Chronic back pain M54.9 and Anxiety F41.9 [place] [id number] [place] [address] 57809- 4086 Oct, Chronic back pain M54.9 and Anxiety F41.9 [place] [id number] [place] [address] 46070- 2377 Oct, [place] [address] 7[address]40- 0243 Sep, Chronic back pain M54.9 ; Anxiety F41.9 ; Pain of left leg M79.605 and Pain in right leg M79.604 [place] [address] 85103- 6646 Sep, Anxiety F41.9 and Chronic back pain M54.9 [facility] [id number] [place] [address] 33204- 6076 Sep, [facility] [id number] [place] [address] 47539- 7963 Aug, Anxiety F41.9 [facility] [address] 87750- 6355 Jul, Anxiety F41.9 [facility] [address] 67013- 1756 Jul, [facility] [id number] [place] [address] 62282- 4314 Jul, Viral syndrome B34.9 ; Chronic back pain M54.9 and Dysuria R30.0 [facility] [id number] [place] [address] 46047- 1049 Jun, [facility] [id number] [place] [address] 09857- 7015 Jun, Anxiety F41.9 [facility] [id number] [place] [address] 82437 -7456 Jun, Dysuria R30.0 and Acute cystitis without hematuria N30.00 [facility] [id number] [place] [address] 65079- 4656 Jun, [facility] [id number] [place] [address] 79328- 4753 May, Anxiety F41.9 [facility] [id number] [place] [address] 05220- 4528 May, Anxiety F41.9 [facility] [id number] [place] [address] 60737- 3838 Apr, [facility] [id number] [place] [address] 05279- 1931 Apr, Chronic back pain M54.9 and Anxiety F41.9 [facility] [address] [address] 8758 Mar, [facility] [id number] [address] 4909 Mar, [facility] [id number] [place] [address] 26408- 0772 Mar, Well woman exam Z01.419 ; Cervical cancer screening Z12.4 ; Breast cancer screening Z12.31 and Colon cancer screening Z12.11 [facility] [id number] [place] [address] 37403- 3944 Mar, Chronic back pain M54.9 and Anxiety F41.9 [facility] [id number] [address]- 2375 Mar, [facility] [id number] [place] [address] 79403- 8064 Feb, Chronic back pain M54.9 and Anxiety F41.9 [facility] [id number] [place] [address] 04726- 2112 Feb, [facility] [id number] [place] [address] 53549- 1243 Feb, [facility] [address] [address]- 4959 Jan, Chronic back pain M54.9 and Anxiety F41.9 [facility] [address] [address]- 6904 Jan, [facility] [id number] [place] [address] 69725- 5710 Jan, [facility] [id number] [address]- 5111 December, Chronic back pain M54.9 and Anxiety F41.9 [facility] [id number] [place] [address] 80182- 0429 Nov, Chronic back pain M54.9 and Anxiety F41.9 [facility] [id number] [place] [address] 20550- 2946 Oct, Chronic back pain M54.9 and Anxiety F41.9 [facility] [id number] [place] [address] 82201- 3406 Oct, Chronic back pain M54.9 [facility] [id number] [place] [address] 72254- 1341 Sep, Anxiety F41.9 and Chronic back pain M54.9 [facility] [id number] [place] [address] 23462- 9325 Aug, Anxiety F41.9 and Chronic back pain M54.9 [facility] [id number] [place] [address] 96571- 3284 Aug, [facility] [id number] [place] [address] 21639- 7411 Jul, Chronic back pain M54.9 and Anxiety F41.9 [facility] [id number] [place] [address] 25719- 2300 Jul, Anxiety F41.9 and Chronic back pain M54.9 [facility] [id number] [id number] Jul, [facility] [id number] [place] [address] 04179- 6303 Jul, Anxiety F41.9 [facility] [id number] [place] [address] 21647- 3440 Jul, Anxiety F41.9 and Dysuria R30.0 [facility] [id number] [place] [address] 51582- 5873 Jul, Chronic back pain M54.9 and Anxiety F41.9 [facility] [id number] [place] [address] 64572- 2548 Jun, Chronic back pain M54.9 [facility] [id number] [place] [address] 82131- 6526 Jun, Chronic back pain M54.9 [facility] [address] [facility] [id number] [address] 2546 May, Anxiety F41.9 [facility] [address] [facility] [id number] [place] [address] 56034 2546 May, Chronic back pain M54.9 [facility] [address] [facility] [id number] [place] [address] 06119- 4856 Apr, [facility] [address] [facility] [id number] [place] [address] 51908- 8536 Apr, [facility] [address] [facility] [id number] [place] [address] 66519- 4246 Apr, [facility] [address] [facility] [id number] [place] [address] 18476 2547 Apr, Chronic back pain M54.9 [facility] [address] [facility] [id number] [place] [address] 69604- 3706 Mar, Chronic back pain M54.9 [facility] [address] [facility] [id number] [place] [address] 09107- 1104 Feb, Grief F43.20 [facility] [address] [facility] [id number] [place] [address] 06734- 6905 Feb, Chronic back pain M54.9 and Anxiety F41.9 [facility] [address] [facility] [id number] [address]- 9976 Feb, Chronic back pain M54.9 [facility] [address] [facility] [id number] [place] [address] 15808- 9246 Jan, Chronic back pain M54.9 [facility] [address] [facility] [id number] [place] [address] 18312- 9450 December, [facility] [id number] [place] [address] 38332- 0685 December, Grief F43.20 [facility] [id number] [place] [address] 32429- 2909 Nov, [facility] [id number] [place] [address] 80250- 1770 Oct, Cervicalgia M54.2 ; Secondary esophageal varices with bleeding I85.11 and Mouth pain K13.79 [facility] [id number] [place] [address] 79871- 4123 Oct, [facility] [id number] [place] [address] 99601- 6934 Oct, [facility] [id number] [place] [address] 41941- 8285 Sep, [facility] [id number] [place] [address] 94842- 8877 Sep, Acute maxillary sinusitis, recurrence not specified J01.00 [facility] [id number] [place] [address] 85249- 0757 Aug, [facility] [id number] [place] [address] 71990- 9155 Aug, [facility] [id number] [place] [address] 56122- 3857 Aug, Dysuria R30.0 and Chronic back pain M54.9 [facility] [id number] [place] [address] 66147- 2818 Jul, [facility] [id number] [place] [address] 76522- 6725 Jul, [facility] [id number] [place] [address] 97341- 2559 10 Jul, 2015 [facility] [id number] [place] [address] 39405- 8420 Jul, Chronic back pain M54.9 [facility] [id number] [place] [address] 78524- 9930 Jul, Dysthymia F34.1 and Chronic back pain M54.9 [facility] [id number] [place] [address] 35302- 8556 Jun, [facility] [address] 72107- 2199 Jun, [facility] [id number] [place] [address] 01441- 0528 May, [facility] [id number] [place] [address] 70139- 0723 May, [facility] [id number] [place] [address] 52981- 9923 May, [facility] [id number] [place] [address] 36518- 2850 May, Encounter for immunization Z23 [facility] [id number] [place] [address] 25565- 3527 Apr, [facility] [id number] [place] [address] 42952- 9742 Apr, [facility] [id number] [place] [address] 43414- 7342 Mar, [facility] [id number] [place] [address] 92322- 9387 Mar, Back pain 724.5 [facility] [id number] [place] [address] 43620- 0992 Mar, Cough 786.2 and Back pain 724.5 [facility] [id number] [place] [address] 04902- 6308 Mar, [facility] [id number] [place] [address] 51906- 0076 Mar, [facility] [place] [facility] [address] [id number] [place] [address]- 6142 December, [facility] [place] [facility] [address] [id number] [place] [address]- 9481 December, [facility] [place] [facility] [address] [id number] [place] [address]- 1494 Nov, [facility] [place] [facility] [address] [id number] [place] [address]- 7037 Nov, [facility] [place] [facility] [address] [id number] [place] [address]- 6995 Oct, [facility] [place] [facility] [address] [id number] [place] [address]- 6194 Oct, [facility] [place] [facility] [address] [facility] [id number] [place] [address]- 7624 Sep, [facility] [place] [facility] [address] [id number] [place] [address]- 9905 Sep, [facility] [place] [facility] [address] [id number] [place] [address]- 5018 Sep, [facility] [place] [facility] [address] [facility] [id number] [place] [address]- 8907 Sep, [facility] [place] [facility] [address] [id number] [place] [address]- 9368 Sep, [facility] [place] [facility] [address] [id number] [place] [address]- 0211 Sep, [facility] [place] [facility] [address] [id number] [place] [address]- 1796 Sep, [facility] [place] [facility] [address] [id number] [place] [address]- 2426 Sep, [facility] [place] [facility] [address] [facility] [id number] [place] [address]- 8253 Aug, [facility] [place] [facility] [address] [id number] [place] [address]- 9915 14 Aug, 2014 [facility] [address] [id number] [place] [address]- 6807 14 Aug, 2014 [facility] [place] [facility] [address] [id number] [place] [address]- 2217 13 Aug, 2014 [facility] [place] [facility] [address] [id number] [place] [address]- 7615 13 Aug, 2014 [facility] [place] [facility] [address] [id number] [place] [address]- 5228 12 Aug, 2014 [facility] [place] [facility] [address] [id number] [place] [address]- 1451 Aug, [facility] [place] [facility] [address] [id number] [place] [address]- 5717 Jul, [facility] [address] [id number] [place] [address]- 2263 Jul, [facility] [place] [facility] [address] [id number] [place] [address]- 9824 Jul, [facility] [place] [facility] [address] [id number] [place] [address]- 2263 Jul, [facility] [place] [facility] [address] [id number] [place] [address]- 2560 15 Jul, 2014 [facility] [place] [facility] [address] [id number] [place] [address]- 5569 Jul, [facility] [place] [facility] [address] [id number] [place] [address]- 4198 Jul, [facility] [place] [facility] [address] [id number] [place] 7485 Jul, [facility] [place] [facility] [address] [id number] [place] [address]- 4707 Jun, [facility] [place] [facility] [address] [id number] [place] [address]- 8244 Jun, [facility] [place] [facility] [address] [id number] [place] [address]- 7217 Jun, [facility] [place] [facility] [address] [id number] [place] 8299 Jun, [facility] [place] [facility] [address] [id number] [place] [address]- 0816 Jun, [facility] [place] [facility] [address] [id number] [place] [address]- 2612 Jun, [facility] [place] [facility] [address] [id number] [place] [address]- 7158 Jun, [facility] [place] [facility] [address] [id number] [place] [address]- 2411 May, [facility] [place] [facility] [address] [id number] [place] [address]- 9242 May, [facility] [place] [facility] [address] [id number] [place] [address]- 3260 May, [facility] [place] [facility] [address] [id number] [place] [address]- 1766 May, [facility] [place] [facility] [address] [id number] [place] [address]- 8664 May, [facility] [place] [facility] [address] [id number] [place] [address]- 3729 2014 [facility] [place] [facility] [address] [id number] [place] [address]- 7218 2014 [facility] [place] [facility] [address] [id number] [place] [address]- 4993 2014 [facility] [place] [facility] [address] [id number] [place] [address]- 3726 13 May, 2014 [facility] [place] [facility] [address] [id number] [place] [address]- 9408 13 May, 2014 [facility] [place] [facility] [address] [id number] [place] [address]- 7143 May, [facility] [place] [facility] [address] [id number] [place] [address]- 1993 May, [facility] [place] [facility] [address] [id number] [place] [address]- 9720 May, [facility] [place] [facility] [address] [id number] [place] [address]- 8170 May, [facility] [place] [facility] [address] [id number] [place] [address]- 6715 Apr, [facility] [place] [facility] [address] [id number] [place] [address]- 7146 Apr, [facility] [place] [facility] [address] [id number] [place] [address]- 8920 Apr, [facility] [place] [facility] [address] [id number] [place] [address]- 6859 Apr, [facility] [place] [facility] [address] [id number] [place] [address]- 5263 Apr, [facility] [place] [facility] [address] [id number] [place] [address]- 1808 Apr, [facility] [place] [facility] [address] [id number] [place] [address]- 9312 Apr, [facility] [place] [facility] [address] [id number] [place] [address]- 1448 Mar, [facility] [place] [facility] [address] [id number] [place] [address]- 6260 Mar, [facility] [place] [facility] [address] [id number] [place] [address]- 3398 Mar, [facility] [place] [facility] [address] [id number] [place] [address]- 4669 Mar, [facility] [place] [facility] [address] [id number] [place] [address]- 9253 Mar, [facility] [place] [facility] [address] [id number] [place] [address]- 2546 Mar, [facility] [place] [facility] [address] [id number] [place] [address]- 1247 Feb, [facility] [place] [facility] [address] [id number] [place] [address]- 4416 Feb, [facility] [place] [facility] [address] [id number] [place] [address]- 3089 Feb, [facility] [place] [facility] [address] [id number] [place] [address]- 2107 Feb, [facility] [place] [facility] [address] [id number] [place] [address]- 5780 Feb, [facility] [place] [facility] [address] [id number] [place] [address]- 7467 Feb, [facility] [place] [facility] [address] [id number] [place] [address]- 1554 Feb, [facility] [address] [id number] [place] [address]- 5199 Feb, [facility] [place] [facility] [address] [id number] [place] [address]- 5224 Jan, [facility] [place] [facility] [address] [id number] [place] [address]- 6979 Jan, [facility] [place] [facility] [address] [id number] [place] [address]- 9939 December, [facility] [place] [facility] [address] [id number] [place] [address]- 8511 December, [facility] [place] [facility] [address] [id number] [place] [address]- 8416 December, [facility] [place] [facility] [address] [id number] [place] [address]- 2546 December, [facility] [place] [facility] [address] [id number] [place] 3075 December, [facility] [place] [facility] [address] [id number] [place] [address]- 5088 December, [facility] [place] [facility] [address] [id number] [place] [address]- 2128 December, [facility] [place] [facility] [address] [id number] [place] [address]- 5097 December, [facility] [place] [facility] [address] [id number] [place] [address]- 3095 December, [facility] [place] [facility] [address] [id number] [place] [address] December, [facility] [place] [facility] [address] [id number] [place] [address] December, [facility] [place] [facility] [address] [id number] [place] [address] December, [facility] [place] [facility] [address] [id number] [place] [address] Nov, [facility] [place] [facility] [address] [id number] [place] [address] Nov, [facility] [place] [facility] [address] [id number] [place] [address] Nov, [facility] [place] [facility] [address] [id number] [place] [address] Nov, [facility] [place] [facility] [address] [id number] [place] [address] Nov, [facility] [place] [facility] [address] [id number] [place] [address] Nov, [facility] [place] [facility] [address] [id number] [place] [address] Nov, [facility] [place] [facility] [address] [id number] [place] [address] Nov, [facility] [place] [facility] [address] [id number] [place] [address] Nov, [facility] [place] [facility] [address] [id number] [place] [address] Nov, [facility] [place] [facility] [address] [id number] [place] [address] Nov, [facility] [place] [facility] [address] [id number] [place] [address] Nov, [facility] [place] [facility] [address] [id number] [place] [address] Nov, [facility] [place] [facility] [address] [id number] [place] [address] Oct, [facility] [place] [facility] [address] [id number] [place] [address] Oct, [facility] [place] [facility] [address] [facility] [id number] [place] [address] Sep, [facility] [place] [facility] [address] [id number] [place] [address] Sep, [facility] [place] [facility] [address] [id number] [place] [address] Sep, [facility] [place] [facility] [address] [facility] [id number] [place] [address] Sep, [facility] [place] [facility] [address] [facility] [id number] [place] [address] 24 Sep, 2013 [facility] [place] [facility] [address] [facility] [id number] [place] [address] Sep, [facility] [place] [facility] [address] [facility] [id number] [place] [address] Sep, [facility] [place] [facility] [address] [facility] [id number] [place] [address] 18 Sep, 2013 [facility] [place] [facility] [address] [id number] [place] [address] Sep, [facility] [place] [facility] [address] [id number] [place] [address] Sep, [facility] [place] [facility] [address] [id number] [place] [address] Sep, [facility] [place] [facility] [address] [id number] [place] [address] Sep, [facility] [place] [facility] [address] [id number] [place] [address] Aug, [facility] [place] [facility] [address] [id number] [place] [address] Aug, [facility] [place] [facility] [address] [id number] [place] [address] Aug, [facility] [place] [facility] [address] [id number] [place] [address] Aug, [facility] [place] [facility] [address] [id number] [place] [address] Aug, [facility] [place] [facility] [address] [id number] [place] [address] Aug, [facility] [place] [facility] [address] [id number] [place] [address] Aug, [facility] [place] [facility] [address] [id number] [place] [address] Aug, [facility] [place] [facility] [address] [id number] [address] Aug, [facility] [facility] [address] [id number] [place] [address] Aug, [facility] [place] [facility] [address] [id number] [place] [address] Aug, [facility] [facility] [address] [id number] [place] [address] Aug, [facility] [place] [facility] [address] [id number] [place] [address]- [address] 13 Aug, 2013 [facility] [address] [id number] [place] [address]- [address] 13 Aug, 2013 [facility] [place] [facility] [address] [id number] [place] [address] Aug, [facility] [address] [address] [id number] [place] [address] Aug, [facility] [place] [facility] [address] [id number] [place] [address] Aug, [facility] [address] [id number] [place] [address] 5690 Aug, [facility] [address] [id number] [place] [address] 2897 Aug, [facility] [address] [id number] [place] [address] 2894 Aug, [facility] [address] [id number] [place] [address] 4988 Aug, [facility] [place] [facility] [address] [id number] [place] [address] 2639 Aug, [facility] [address] [id number] [place] [address] 6433 Aug, [facility] [address] [id number] [place] [address] 0431 Jul, [facility] [place] [facility] [address] [id number] [place] [address] 4453 Jul, [facility] [place] [facility] [address] [id number] [place] [address] 3190 Jul, [facility] [place] [facility] [address] [id number] [place] [address]- 4820 Jul, [facility] [place] [facility] [address] [id number] [place] [address] 2717 Jul, [facility] [place] [facility] [address] [id number] [place] [address]- 0431 Jul, [facility] [place] [facility] [address] [id number] [place] [address]- 9256 Jun, [facility] [place] [facility] [address] [id number] [place] [address]- 0985 Jun, [facility] [place] [facility] [address] [id number] [place] [address]- 2903 Jun, [facility] [place] [facility] [address] [id number] [place] [address]- 6209 Jun, [facility] [place] [facility] [address] [id number] [place] [address]- 9731 Jun, [facility] [place] [facility] [address] [id number] [place] [address]- 5668 Jun, [facility] [place] [facility] [address] [id number] [place] [address]- 7792 Jun, [facility] [place] [facility] [address] [id number] [place] [address]- 0938 Jun, [facility] [place] [facility] [address] [id number] [place] [address]- 3958 Jun, [facility] [place] [facility] [address] [id number] [place] [address]- 6437 Jun, [facility] [place] [facility] [address] [id number], [place] [address]- 1060 May, [facility] [place] [facility] [address] [id number] [place] [address]- 4860 May, [facility] [place] [facility] [address] [id number] [place] [address]- 1602 May, [facility] [place] [facility] [address] [id number] [place] [address]- 3099 May, [facility] [place] [facility] [address] [id number][place] [address]- 2458 May, [facility] [place] [facility] [address] [id number] [place] [address]- 3987 24 May, 2013 [facility] [place] [facility] [address] [id number] [place] [address]- 3318 24 May, 2013 [facility] [place] [facility] [address] [id number] [place] [address]- 8090 May, [facility] [place] [facility] [address] [id number] [place] [address]- 7320 May, [facility] [place] [facility] [address] [id number] [place] [address]- 1909 May, [facility] [place] [facility] [address] [id number] [place] [address]- 3087 17 May, 2013 [facility] [place] [facility] [address] [id number] [place] [address]- 8311 16 May, 2013 [facility] [place] [facility] [address] [id number] [place] [address]- 0898 16 May, 2013 [facility] [place] [facility] [address] [id number] [place] [address]- 1946 16 May, 2013 [facility] [place] [facility] [address] [id number] [place] [address]- 5906 16 May, 2013 [facility] [place] [facility] [address] [id number], [place] [address]- 0[address] 24 Apr, 2013 [facility] [place] [facility] [address] [id number] [place] [address]- 8357 23 Apr, 2013 [facility] [place] [facility] [address] [id number] [place] [address]- 7948 Apr, [facility] [place] [facility] [address] [id number] [place] [address]- 9176 Mar, [facility] [place] [facility] [address] [id number] [place] [address]- 8493 Mar, [facility] [place] [facility] [address] [id number] [place] [address]- 3030 Mar, [facility] [address] [id number] [place] [address]- 7528 Mar, [facility] [place] [facility] [address] [id number] [place] [address]- 8503 Mar, [facility] [address] [id number] [place] [address]- 4094 Mar, [facility] [address] [id number] [place] [address]- 0174 Feb, [facility] [address] [id number] [place] [address]- 9126 Feb, [facility] [address] [id number] [place] [address]- 7599 Feb, [facility] [address] [id number] [place] [address]- 5399 Feb, [facility] [address] [id number] [place] [address]- 8843 Feb, [facility] [address] [id number] [place] [address]- 8155 Feb, [facility] [address] [id number] [place] [address]- 1427 Feb, [facility] [place] [facility] [address] [id number] [place] [address]- 6240 Feb, [facility] [address] [id number] [place] [address]- 2076 Feb, [facility] [place] [facility] [address] [id number] [place] [address] 2008 Feb, [facility] [place] [facility] [address] [id number] [place] [address]- 8012 Jan, [facility] [place] [facility] [address] [id number] [place] [address]- 2374 Jan, [facility] [address] [id number] [place] [address]- 6300 Jan, [facility] [place] [facility] [address] [id number] [place] [address]- 0748 Jan, [facility] [address] [id number] [place] [address]- 3247 December, [facility] [place] [facility] [address] [id number] [place] [address]- 4568 December, [facility] [address] [id number] [place] [address] December, [facility] [place] [facility] [address] [id number] [place] [address]- 6033 Nov, [facility] [place] [facility] [address] [id number] [place] [address]- 9348 Nov, [facility] [address] [id number] [place] [address]- 1045 Nov, [facility] [place] [facility] [address] [id number] [place] [address]- 4479 Nov, [facility] [place] [facility] [address] [id number] [place] [address]- 3907 Nov, [facility] [place] [facility] [address] [id number] [place] [address]- 7542 Nov, [facility] [place] [facility] [address] [id number] [place] [address]- 9144 Oct, [facility] [place] [facility] [address] [id number] [place] [address]- 0644 Oct, [facility] [place] [facility] [address] [id number] [place] [address]- 7951 Oct, [facility] [place] [facility] [address] [id number] [place] [address]- 9209 Sep, [facility] [place] [facility] [address] [id number] [place] [address]- 6030 Sep, [facility] [address] [id number] [place] [address]- 0124 Sep, [facility] [place] [facility] [address] [id number] [place] [address]- 7487 Aug, [facility] [place] [facility] [address] [id number] [place] [address]- 2461 Aug, [facility] [place] [facility] [address] [id number] [place] [address]- 5249 Aug, [facility] [place] [facility] [address] [id number] [place] [address]- 6862 Aug, [facility] [place] [facility] [address] [id number] [place] [address]- 9419 Jul, [facility] [address] [id number] [place] [address] Jul, [facility] [place] [facility] [address] [id number] [place] [address]- 5471 Jul, [facility] [place] [facility] [address] [id number] [place] [address]- 2027 Jul, [facility] [place] [facility] [address] [facility] [id number] [place] [address]- 2031 Jun, [facility] [place] [facility] [address] [id number] [place] [address]- 6532 Jun, [facility] [place] [facility] [address] [id number] [place] [address]- 1770 Jun, [facility] [place] [facility] [address] [id number] [place] [address]- 7676 Jun, [facility] [place] [facility] [address] [id number] [place] [address]- 0350 Jun, [facility] [place] [facility] [address] [id number] [place] [address]- 1822 Jun, [facility] [place] [facility] [address] [id number] [place] [address]- 5007 Jun, [facility] [place] [facility] [address] [id number] [place] [address]- 2629 Jun, [facility] [place] [facility] [address] [id number] [place] [address]- 8699 30 May, 2012 [facility] [place] [facility] [address] [id number] [place] [address], [place] [address]- 7446 30 May, 2012 [facility] [place] [facility] [address] [id number] [place] [address]- 1506 May, [facility] [place] [facility] [address] [id number] [place] [address]- 3818 18 May, 2012 [facility] [place] [facility] [address] [id number] [place] [address]- 0378 2012 [facility] [place] [facility] [address] [id number] [place] [address]- 3811 13 May, 2012 [facility] [place] [facility] [address] [id number] [place] [address]- 7719 May, [facility] [place] [facility] [address] [id number] [place] [address]- 4580 11 May, 2012 [facility] [place] [facility] [address] [id number] [place] [address]- 9038 10 May, 2012 [facility] [place] [facility] [address] [id number], [place] [address]- 9733 08 May, 2012 [facility] [place] [facility] [address] [id number] [place] [address]- 7695 24 Apr, 2012 [facility] [place] [facility] [address] [id number] [place] [address]- 5705 19 Apr, 2012 [facility] [place] [facility] [address] [id number] [place] [address]- 3408 18 Apr, 2012 [facility] [place] [facility] [address] [id number] [place] [address]- 1187 17 Apr, 2012 [facility] [place] [facility] [address] [id number] [place] [address]- 9862 16 Apr, 2012 [facility] [place] [facility] [address] [id number] [place] [address] Apr, [facility] [place] [facility] [address] [id number] [place] [address]- 7779 Mar, [facility] [place] [facility] [address] [id number] [place] [address]- 9477 Mar, [facility] [place] [facility] [address] [id number] [place] [address]- 4213 Mar, [facility] [place] [facility] [address] [id number] [place] [address]- 3973 Mar, [facility] [place] [facility] [address] [id number] [place] [address]- 2484 Mar, [facility] [place] [facility] [address] [id number] [place] [address]- 2334 Mar, [facility] [place] [facility] [address] [id number] [place] [address]- 5238 Feb, [facility] [place] [facility] [address] [id number] [place] [address]- 3718 Feb, [facility] [place] [facility] [address] [id number] [place] [address]- 6239 Feb, [facility] [place] [facility] [address] [id number] [place] [address]- 6553 Feb, [facility] [place] [facility] [address] [id number] [place] [address]- 4700 Feb, [facility] [place] [facility] [address] [id number] [place] [address]- 8020 Feb, [facility] [place] [facility] [address] [id number] [place] [address]- 4451 Feb, [facility] [place] [facility] [address] [id number] [place] [address]- 3860 Feb, [facility] [address] [id number] [place] [address]- 7469 Feb, [facility] [place] [facility] [address] [id number] [place] [address]- 4142 Jan, [facility] [address] [id number] [place] [address]- 7960 Jan, [facility] [place] [facility] [address] [id number] [place] [address]- 2901 Jan, [facility] [address] [id number] [place] [address]- 3577 Jan, [facility] [address] [id number] [place] [address]- 0961 Jan, [facility] [address] [id number] [place] [address]- 9083 Jan, [facility] [address] [id number] [place] [address]- 6838 Jan, [facility] [place] [facility] [address] [id number] [place] [address]- 1228 Jan, [facility] [address] [id number] [place] [address]- 6255 Jan, [facility] [place] [facility] [address] [id number] [place] [address]- 7369 December, [facility] [address] [id number] [place] [address]- 6173 December, [facility] [place] [facility] [address] [id number] [place] [address]- 3476 December, [facility] [place] [facility] [address] [id number] [place] [address]- 8096 December, [facility] [place] [facility] [address] [id number] [place] [address] December, [facility] [address] [id number] [place] [address]- 2631 December, [facility] [place] [facility] [address] [id number] [place] [address]- 1348 December, [facility] [place] [facility] [address] [id number] [place] [address]- 6445 December, [facility] [place] [facility] [address] [id number] [place] [address]- 0040 December, [facility] [place] [facility] [address] [id number] [place] [address]- 3818 December, [facility] [place] [facility] [address] [id number] [place] [address]- 6943 Nov, [facility] [place] [facility] [address] [id number] [place] [address]- 4088 Nov, [facility] [place] [facility] [address] [id number] [place] [address]- 3797 Nov, [facility] [place] [facility] [address] [id number] [place] [address]- 5344 Nov, [facility] [place] [facility] [address] [id number] [place] [address]- 4531 16 Nov, 2011 [facility] [place] [facility] [address] [id number] [place] [address]- 4447 Nov, [facility] [place] [facility] [address] [id number] [place] [address]- 7460 Nov, [facility] [place] [facility] [address] [id number] [place] [address]- 3729 Nov, [facility] [place] [facility] [address] [id number] [place] [address]- 8356 05 Nov, 2011 [facility] [place] [facility] [address] [id number] [place] [address]- 8329 Nov, [facility] [place] [facility] [address] [id number], [place] [address]- 4359 30 Oct, 2011 [facility] [address] [id number] [place] [address]- 3523 29 Oct, 2011 [facility] [place] [facility] [address] [id number] [place] [address]- 9066 23 Oct, 2011 [facility] [address] [id number] [place] [address]- 3736 23 Oct, 2011 [facility] [place] [facility] [address] [id number] [place] [address]- 4552 21 Oct, 2011 [facility] [address] [id number] [place] [address]- 3138 20 Oct, 2011 [facility] [place] [facility] [address] [id number] [place] [address]- 3372 19 Oct, 2011 [facility] [address] [id number] [place] [address]- 9770 19 Oct, 2011 [facility] [address] [id number] [place] [address]- 7015 16 Oct, 2011 [facility] [address] [id number] [place] [address]- 4533 14 Oct, 2011 [facility] [address] [id number] [place] [address]- 0673 14 Oct, 2011 [facility] [place] [facility] [address] [id number] [place] [address]- 1034 09 Oct, 2011 [facility] [place] [facility] [address] [id number] [place] [address]- 2096 08 Oct, 2011 [facility] [place] [facility] [address] [id number] [place] [address]- 5843 06 Oct, 2011 [facility] [place] [facility] [address] [id number] [place] [address]- 4376 02 Oct, 2011 [facility] [place] [facility] [address] [id number] [place] [address]- 9476 28 Sep, 2011 [facility] [place] [facility] [address] [id number] [place] [address]- 7086 24 Sep, 2011 [facility] [place] [facility] [address] [id number] [place] [address]- 4016 20 Sep, 2011 [facility] [place] [facility] [address] [id number] [place] [address] 2546 17 Sep, 2011 [facility] [place] [facility] [address] [id number] [place] [address]- 2596 16 Sep, 2011 [facility] [place] [facility] [address] [id number] [place] [address]- 3412 14 Sep, 2011 [facility] [place] [facility] [address] [id number] [place] [address]- 5456 13 Sep, 2011 [facility] [place] [facility] [address] [id number] [place] [address]- 1216 10 Sep, 2011 [facility] [place] [facility] [address] [id number] [place] [address]- 8703 06 Sep, 2011 [facility] [place] [facility] [address] [id number] [place] [address]- 1507 03 Sep, 2011 [facility] [place] [facility] [address] [id number] [place] [address]- 8131 Sep, [facility] [place] [facility] [address] [id number] [place] [address]- 8130 Aug, [facility] [place] [facility] [address] [id number] [place] [address] 254 Aug, [facility] [place] [facility] [address] [id number] [place] [address]- 8406 Aug, [facility] [place] [facility] [address] [id number] [place] [address]- 7818 Aug, [facility] [place] [facility] [address] [id number] [place] [address]- 7500 Aug, [facility] [place] [facility] [address] [id number] [place] [address]- 8208 17 Aug, 2011 [facility] [address] [id number] [place] [address]- 4427 17 Aug, 2011 [facility] [address] [id number] [place] [address]- 7813 17 Aug, 2011 [facility] [address] [id number] [place] [address]- 8586 16 Aug, 2011 [facility] [address] [id number] [place] [address]- 4413 13 Aug, 2011 [facility] [address] [id number] [place] [address] 11 Aug, 2011 [facility] [address] [id number] [place] [address] 10 Aug, 2011 [facility] [address] [id number] [place] [address] Aug, [facility] [address] [id number] [place] [address] Aug, [facility] [address] [id number] [place] [address] Aug, [facility] [address] [id number] [place] [address] Aug, [facility] [address] [id number] [place] [address] Aug, [facility] [address] [id number] [place] [address] Jul, [facility] [place] [facility] [address] [id number] [place] [address] Jul, [facility] [place] [facility] [address] [id number] [place] [address] Jul, [facility] [address] [id number] [place] [address] Jul, [facility] [address] [facility] [id number] [address] Jul, [facility] [address] [facility] [id number][place] [address] Jul, [facility] [address] [facility] [id number][place] [address] Jul, [facility] [address] [facility] [id number][place] [address] 16 Jul, 2011 [facility] [address] [facility] [id number], [place] [address] Jul, [facility] [id number], [place] [address] Jul, [facility] [id number], [place] [address] Jul, [facility] [id number], [place] [address] Jun, [facility] [id number], [place] [address] Jun, [facility] [address] [id number], [place] [address] Jun, IMMUNIZATIONS No Known Immunizations SOCIAL HISTORY Never Assessed REASON FOR VISIT Controlled Med Refill 05/15/2017 PLAN OF CARE VITAL SIGNS MEDICATIONS Medication Instructions Dosage Frequency Start Date End Date Duration Status Ativan 0.5 MG Orally Once a day 1 tablet as needed 24h December, 28 days Active Oxycodone HCl 5 MG Orally Once a day 1 tablet at bedtime 24h May, 28 days Active RESULTS No Results PROCEDURES [...]
[2018-08-05 03:40] LABS: ROULEAUX SLIGHT
--- OUTSIDE RECORDS SUMMARY | 2018-08-05 03:40 | XMS REPORT ---
Author Author HEATHER FINE [facility] Address [address] [place] [address] Care Team Providers Care Installer Helper Name Role Phone HEATHER FINE Unavailable PROBLEMS Type Condition ICD9-CM Code [id number] Code Onset Dates Condition Status SNOMED Code Problem Unspecified cirrhosis of liver K74.60 Active 337000583 Problem Lymphocytosis D72.820 Active 06504594 Problem Secondary esophageal varices with bleeding I85.11 Active 22995109 Problem Anxiety F41.9 Active 87634934 Problem Asthma J45.909 Active 623278143 Problem Chronic back pain M54.9 Active 008201149 Problem Dysthymia F34.1 Active 39566654 Problem Thrombocytosis D47.3 Active 1692448 Problem Splenomegaly R16.1 Active 45583442 Problem 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 Active 172288061 Problem History of hepatitis C Z86.19 Active [id number] ALLERGIES Unknown Allergies SOCIAL HISTORY No smoking Hx information available PLAN OF CARE VITAL SIGNS MEDICATIONS Medication Instructions Dosage Frequency Start Date End Date Duration Status Oxycodone HCl 5 MG Orally Once a day 1 tablet at bedtime 24h Aug, 28 days Active Ativan 0.5 MG Orally Once a day 1 tablet as needed 24h December, 28 days Active RESULTS No Results PROCEDURES No Known procedures IMMUNIZATIONS No Known Immunizations
--- OUTSIDE RECORDS SUMMARY | 2018-08-05 03:40 | XMS REPORT ---
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 Name Role Phone HEATHER FINE Unavailable PROBLEMS Type Condition ICD9-CM Code GTN84-TY Code Onset Dates Condition Status SNOMED Code Problem Unspecified cirrhosis of liver K74.60 Active 776434969 Problem Lymphocytosis D72.820 Active 65342013 Problem Secondary esophageal varices with bleeding I85.11 Active 37309201 Problem Anxiety F41.9 Active 72639554 Problem Asthma J45.909 Active 400169993 Problem Chronic back pain M54.9 Active 285478795 Problem Dysthymia F34.1 Active 16179300 Problem Thrombocytosis D47.3 Active 1876144 Problem Splenomegaly R16.1 Active 76436132 Problem 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 Active 649302487 Problem History of hepatitis C Z86.19 Active [id number] ALLERGIES No Information ENCOUNTERS Encounter Location Date Diagnosis [place] [id number] [place] [address] 62710- 3446 Nov, Chronic back pain M54.9 and Anxiety F41.9 [place] [id number] [place] [address] 21708- 1147 Oct, Chronic back pain M54.9 and Anxiety F41.9 [place] [id number] [place] [address] 87756- 0193 Oct, [place] [address] 09475- 8712 Sep, Chronic back pain M54.9 ; Anxiety F41.9 ; Pain of left leg M79.605 and Pain in right leg M79.604 [place] [address] 51423- 6583 Sep, Anxiety F41.9 and Chronic back pain M54.9 [facility] [id number] [place] [address] 79451- 1722 Sep, [facility] [id number] [place] [address] 71315- 2273 Aug, Anxiety F41.9 [facility] [address] 95582- 1313 Jul, Anxiety F41.9 [facility] [address] 64607- 0924 Jul, [facility] [id number] [place] [address] 16562- 3256 Jul, Viral syndrome B34.9 ; Chronic back pain M54.9 and Dysuria R30.0 [facility] [id number] [place] [address] 18342- 7311 Jun, [facility] [id number] [place] [address] 12095- 8463 Jun, Anxiety F41.9 [facility] [id number] [place] [address] 58377 -8290 Jun, Dysuria R30.0 and Acute cystitis without hematuria N30.00 [facility] [id number] [place] [address] 85445- 2577 Jun, [facility] [id number] [place] [address] 97127- 1847 May, Anxiety F41.9 [facility] [id number] [place] [address] 27276- 9289 May, Anxiety F41.9 [facility] [id number] [place] [address] 51490- 6174 Apr, [facility] [id number] [place] [address] 26419- 0699 Apr, Chronic back pain M54.9 and Anxiety F41.9 [facility] [address] [address] 7931 Mar, [facility] [id number] [address]- 2071 Mar, [facility] [address] [place] [address] 86799- 4942 Mar, Well woman exam Z01.419 ; Cervical cancer screening Z12.4 ; Breast cancer screening Z12.31 and Colon cancer screening Z12.11 [facility] [address] [place] [address] 13059- 6497 Mar, Chronic back pain M54.9 and Anxiety F41.9 [facility] [id number] [address]- 1481 Mar, [facility] [id number] [place] [address] 09890- 9127 Feb, Chronic back pain M54.9 and Anxiety F41.9 [facility] [id number] [place] [address] 34945- 0491 Feb, [facility] [address] [place] [address] 76250- 0206 Feb, [facility] [address] [address]- 5350 Jan, Chronic back pain M54.9 and Anxiety F41.9 [facility] [address] [address]- 9812 Jan, [facility] [id number] [place] [address] 79832- 1533 Jan, [facility] [id number] [address]- 5908 December, Chronic back pain M54.9 and Anxiety F41.9 [facility] [id number] [place] [address] 16594- 1267 Nov, Chronic back pain M54.9 and Anxiety F41.9 [facility] [id number] [place] [address] 66138- 0593 Oct, Chronic back pain M54.9 and Anxiety F41.9 [facility] [id number] [place] [address] 71299- 4836 Oct, Chronic back pain M54.9 [facility] [id number] [place] [address] 44782- 0446 Sep, Anxiety F41.9 and Chronic back pain M54.9 [facility] [id number] [place] [address] 35341- 6201 Aug, Anxiety F41.9 and Chronic back pain M54.9 [facility] [id number] [place] [address] 40459- 0591 Aug, [facility] [id number] [place] [address] 08096- 5017 Jul, Chronic back pain M54.9 and Anxiety F41.9 [facility] [id number] [place] [address] 65479- 9848 Jul, Anxiety F41.9 and Chronic back pain M54.9 [facility] [place] [id number] [id number] Jul, [facility] [address] [place] [address] 83226- 4561 Jul, Anxiety F41.9 [facility] [address] [place] [address] 14143- 2006 Jul, Anxiety F41.9 and Dysuria R30.0 [facility] [address] [place] [address] 90470- 9210 Jul, Chronic back pain M54.9 and Anxiety F41.9 [facility] [id number] [place] [address] 03760- 5117 Jun, Chronic back pain M54.9 [facility] [id number] [place] [address] 40015- 9316 Jun, Chronic back pain M54.9 [facility] [address] [facility] [id number] [address] 2546 May, Anxiety F41.9 [facility] [address] [facility] [id number] [place] [address] 48299 2546 May, Chronic back pain M54.9 [facility] [address] [facility] [id number] [place] [address] 00561- 0456 Apr, [facility] [address] [facility] [id number] [place] [address] 04833- 8436 Apr, [facility] [address] [facility] [id number] [place] [address] 35043- 6916 Apr, [facility] [address] [facility] [id number] [place] [address] 95826 2541 Apr, Chronic back pain M54.9 [facility] [address] [facility] [id number] [place] [address] 07513- 5628 Mar, Chronic back pain M54.9 [facility] [address] [facility] [id number] [place] [address] 66772- 3551 Feb, Grief F43.20 [facility] [address] [facility] [id number] [place] [address] 60830- 7890 Feb, Chronic back pain M54.9 and Anxiety F41.9 [facility] [address] [facility] [id number] [address]- 5516 Feb, Chronic back pain M54.9 [facility] [address] [facility] [id number] [place] [address] 75670- 6656 Jan, Chronic back pain M54.9 [facility] [address] [facility] [id number] [place] [address] 50451- 8646 December, [facility] [id number] [place] [address] 39337- 7746 December, Grief F43.20 [facility] [id number] [place] [address] 16852- 1959 Nov, [facility] [id number] [place] [address] 89126- 6711 Oct, Cervicalgia M54.2 ; Secondary esophageal varices with bleeding I85.11 and Mouth pain K13.79 [facility] [id number] [place] [address] 41950- 9976 Oct, [facility] [id number] [place] [address] 42216- 0282 Oct, [facility] [id number] [place] [address] 32729- 7063 Sep, [facility] [id number] [place] [address] 55400- 8260 Sep, Acute maxillary sinusitis, recurrence not specified J01.00 [facility] [id number] [place] [address] 28482- 6945 Aug, [facility] [id number] [place] [address] 58324- 1541 Aug, [facility] [id number] [place] [address] 05127- 1315 Aug, Dysuria R30.0 and Chronic back pain M54.9 [facility] [id number] [place] [address] 99932- 9736 Jul, [facility] [id number] [place] [address] 22078- 7304 Jul, [facility] [id number] [place] [address] 51095- 3142 10 Jul, 2015 [facility] [id number] [place] [address] 70150- 5929 Jul, Chronic back pain M54.9 [facility] [address] [place] [address] 15507- 4860 Jul, Dysthymia F34.1 and Chronic back pain M54.9 [facility] [id number] [place] [address] 07554- 7734 Jun, [facility] [address] 64052- 1245 Jun, [facility] [id number] [place] [address] 27810- 5032 May, [facility] [id number] [place] [address] 15994- 2000 May, [facility] [id number] [place] [address] 09746- 2486 May, [facility] [id number] [place] [address] 42511- 5411 May, Encounter for immunization Z23 [facility] [id number] [place] [address] 45230- 8834 Apr, [facility] [id number] [place] [address] 10775- 1500 Apr, [facility] [address] [place] [address] 35638- 6544 Mar, [facility] [id number] [place] [address] 90444- 9129 Mar, Back pain 724.5 [facility] [id number] [place] [address] 35018- 5996 Mar, Cough 786.2 and Back pain 724.5 [facility] [id number] [place] [address] 38793- 8909 Mar, [facility] [id number] [place] [address] 29718- 5927 Mar, [facility] [place] [facility] [address] [id number] [place] [address]- 7671 December, [facility] [place] [facility] [address] [id number] [place] [address]- 3802 December, [facility] [place] [facility] [address] [id number] [place] [address]- 5983 Nov, [facility] [place] [facility] [address] [id number] [place] [address]- 1107 Nov, [facility] [place] [facility] [address] [id number] [place] [address]- 4909 Oct, [facility] [place] [facility] [address] [id number] [place] [address]- 8323 Oct, [facility] [place] [facility] [address] [facility] [id number] [place] [address]- 5788 Sep, [facility] [place] [facility] [address] [id number] [place] [address]- 9014 Sep, [facility] [place] [facility] [address] [id number] [place] [address]- 2626 Sep, [facility] [place] [facility] [address] [facility] [id number] [place] [address]- 4498 Sep, [facility] [place] [facility] [address] [id number] [place] [address]- 2891 Sep, [facility] [place] [facility] [address] [id number] [place] [address]- 9398 Sep, [facility] [place] [facility] [address] [id number] [place] [address]- 1484 Sep, [facility] [place] [facility] [address] [id number] [place] [address]- 0961 Sep, [facility] [place] [facility] [address] [facility] [id number] [place] [address]- 0208 Aug, [facility] [place] [facility] [address] [id number] [place] [address]- 7048 14 Aug, 2014 [facility] [address] [id number] [place] [address]- 1923 14 Aug, 2014 [facility] [place] [facility] [address] [id number] [place] [address]- 4850 13 Aug, 2014 [facility] [place] [facility] [address] [id number] [place] [address]- 3820 13 Aug, 2014 [facility] [place] [facility] [address] [id number] [place] [address]- 1995 12 Aug, 2014 [facility] [place] [facility] [address] [id number] [place] [address]- 7997 Aug, [facility] [place] [facility] [address] [id number] [place] [address]- 7774 Jul, [facility] [address] [id number] [place] [address]- 6587 Jul, [facility] [place] [facility] [address] [id number] [place] [address]- 0372 Jul, [facility] [place] [facility] [address] [id number] [place] [address]- 2976 Jul, [facility] [place] [facility] [address] [id number] [place] [address]- 4175 15 Jul, 2014 [facility] [place] [facility] [address] [id number] [place] [address]- 4239 Jul, [facility] [place] [facility] [address] [id number] [place] [address]- 0682 Jul, [facility] [place] [facility] [address] [id number] [place] 3931 Jul, [facility] [place] [facility] [address] [id number] [place] [address]- 8614 Jun, [facility] [place] [facility] [address] [id number] [place] [address]- 0108 Jun, [facility] [place] [facility] [address] [id number] [place] [address]- 6202 Jun, [facility] [place] [facility] [address] [id number] [place] 8892 Jun, [facility] [place] [facility] [address] [id number] [place] [address]- 2847 Jun, [facility] [place] [facility] [address] [id number] [place] [address]- 1662 Jun, [facility] [place] [facility] [address] [id number] [place] [address]- 1503 Jun, [facility] [place] [facility] [address] [id number] [place] [address]- 8351 May, [facility] [place] [facility] [address] [id number] [place] [address]- 2584 May, [facility] [place] [facility] [address] [id number] [place] [address]- 2877 May, [facility] [place] [facility] [address] [id number] [place] [address]- 0218 May, [facility] [place] [facility] [address] [id number] [place] [address]- 5877 May, [facility] [place] [facility] [address] [id number] [place] [address]- 0684 2014 [facility] [place] [facility] [address] [id number] [place] [address]- 2981 2014 [facility] [place] [facility] [address] [id number] [place] [address]- 9202 2014 [facility] [place] [facility] [address] [id number] [place] [address]- 9615 13 May, 2014 [facility] [place] [facility] [address] [id number] [place] [address]- 5900 13 May, 2014 [facility] [place] [facility] [address] [id number] [place] [address]- 1534 May, [facility] [place] [facility] [address] [id number] [place] [address]- 5389 May, [facility] [place] [facility] [address] [id number] [place] [address]- 1543 May, [facility] [place] [facility] [address] [id number] [place] [address]- 0506 May, [facility] [place] [facility] [address] [id number] [place] [address]- 2590 Apr, [facility] [place] [facility] [address] [id number] [place] [address]- 0533 Apr, [facility] [place] [facility] [address] [id number] [place] [address]- 2413 Apr, [facility] [place] [facility] [address] [id number] [place] [address]- 4761 Apr, [facility] [place] [facility] [address] [id number] [place] [address]- 3418 Apr, [facility] [place] [facility] [address] [id number] [place] [address]- 1911 Apr, [facility] [place] [facility] [address] [id number] [place] [address]- 0518 Apr, [facility] [place] [facility] [address] [id number] [place] [address]- 6891 Mar, [facility] [place] [facility] [address] [id number] [place] [address]- 7879 Mar, [facility] [place] [facility] [address] [id number] [place] [address]- 4948 Mar, [facility] [place] [facility] [address] [id number] [place] [address]- 2618 Mar, [facility] [place] [facility] [address] [id number] [place] [address]- 2385 Mar, [facility] [place] [facility] [address] [id number] [place] [address]- 2546 Mar, [facility] [place] [facility] [address] [id number] [place] [address]- 2102 Feb, [facility] [place] [facility] [address] [id number] [place] [address]- 7446 Feb, [facility] [place] [facility] [address] [id number] [place] [address]- 0416 Feb, [facility] [place] [facility] [address] [id number] [place] [address]- 3455 Feb, [facility] [place] [facility] [address] [id number] [place] [address]- 6628 Feb, [facility] [place] [facility] [address] [id number] [place] [address]- 8753 Feb, [facility] [place] [facility] [address] [id number] [place] [address]- 2841 Feb, [facility] [address] [id number] [place] [address]- 7814 Feb, [facility] [place] [place] [facility] [address] [id number] [place] [address]- 4802 Jan, [facility] [place] [facility] [address] [id number] [place] [address]- 8597 Jan, [facility] [place] [place] [facility] [address] [id number] [place] [address]- 4340 December, [facility] [place] [facility] [address] [id number] [place] [address]- 2567 December, [facility] [place] [facility] [address] [id number] [place] [address]- 8156 December, [facility] [place] [facility] [address] [id number] [place] [address]- 2546 December, [facility] [place] [facility] [address] [id number] [id number] 8888 December, [facility] [place] [facility] [address] [id number] [place] [address]- 1071 December, [facility] [place] [facility] [address] [id number] [place] [address]- 6496 December, [facility] [place] [facility] [address] [id number] [place] [address] December, [facility] [place] [facility] [address] [id number] [place] [address] December, [facility] [place] [facility] [address] [id number] [place] [address] December, [facility] [place] [facility] [address] [id number] [place] [address] December, [facility] [place] [facility] [address] [id number] [place] [address] December, [facility] [place] [facility] [address] [id number] [place] [address] Nov, [facility] [place] [facility] [address] [id number] [place] [address] Nov, [facility] [place] [facility] [address] [id number] [place] [address] Nov, [facility] [place] [facility] [address] [id number] [place] [address] Nov, [facility] [place] [facility] [address] [id number] [place] [address] Nov, [facility] [place] [facility] [address] [id number] [place] [address] Nov, [facility] [place] [facility] [address] [id number] [place] [address] Nov, [facility] [place] [facility] [address] [id number] [place] [address] Nov, [facility] [place] [facility] [address] [id number] [place] [address] 6291 Nov, [facility] [place] [facility] [address] [id number] [place] [address]136 Nov, [facility] [place] [facility] [address] [id number] [place] [address] 9932 Nov, [facility] [place] [facility] [address] [id number] [place] [address]453 Nov, [facility] [place] [facility] [address] [id number] [place] [address] 2188 Nov, [facility] [place] [facility] [address] [id number] [place] [address] 45[address] Oct, [facility] [place] [facility] [address] [id number] [place] [address]648 Oct, [facility] [place] [facility] [address] [facility] [id number] [place] [address] Sep, [facility] [place] [facility] [address] [id number] [place] [address] 4910 Sep, [facility] [place] [facility] [address] [id number] [place] [address]136 Sep, [facility] [place] [facility] [address] [facility] [id number] [place] [address]- 7082 Sep, [facility] [place] [facility] [address] [facility] [id number] [place] [address] 24 Sep, 2013 [facility] [place] [facility] [address] [facility] [id number] [place] [address] Sep, [facility] [place] [facility] [address] [facility] [id number] [place] [address] 1079 Sep, [facility] [place] [facility] [address] [facility] [id number] [place] [address] 18 Sep, 2013 [facility] [place] [facility] [address] [id number] [place] [address]34 Sep, [facility] [place] [facility] [address] [id number] [place] [address] 6041 Sep, [facility] [place] [facility] [address] [id number] [place] [address] 6883 Sep, [facility] [place] [facility] [address] [id number] [place] [address]106 Sep, [facility] [place] [facility] [address] [id number] [place] [address]006 Aug, [facility] [place] [facility] [address] [id number] [place] [address]642 Aug, [facility] [place] [facility] [address] [id number] [place] [address]- 9335 Aug, [facility] [place] [facility] [address] [id number] [place] [address]- 4110 Aug, [facility] [place] [facility] [address] [id number] [place] [address] 7069 Aug, [facility] [place] [facility] [address] [id number] [place] [address]395 Aug, [facility] [place] [facility] [address] [id number] [place] [address]- 4799 Aug, [facility] [place] [facility] [address] [id number] [place] [address]- 2246 Aug, [facility] [place] [facility] [address] [id number], [place] [address] Aug, [facility] [place] [facility] [address] [id number] [place] [address]- [address]256 Aug, [facility] [place] [facility] [address] [id number] [place] [address]- 4169 Aug, [facility] [place] [facility] [address] [id number] [place] [address]- 2796 Aug, [facility] [place] [facility] [address] [id number] [place] [address] 13 Aug, 2013 [facility] [address] [id number] [place] [address]27 13 Aug, 2013 [facility] [place] [facility] [address] [id number] [place] [address]- [address]196 Aug, [facility] [address] [id number] [place] [address] 5715 Aug, [facility] [place] [facility] [address] [id number] [place] [address]- 8138 Aug, [facility] [address] [id number] [place] [address]160 Aug, [facility] [address] [id number] [place] [address]- 9566 Aug, [facility] [address] [id number] [place] [address]- 1335 Aug, [facility] [address] [id number] [place] [address]- 2053 Aug, [facility] [place] [facility] [address] [id number] [place] [address]- 5456 Aug, [facility] [address] [id number] [place] [address] 8946 Aug, [facility] [address] [id number] [place] [address] Jul, [facility] [place] [facility] [address] [id number] [place] [address] Jul, [facility] [place] [facility] [address] [id number] [place] [address] Jul, [facility] [place] [facility] [address] [id number] [place] [address] 5680 Jul, [facility] [place] [facility] [address] [id number] [place] [address]- 0482 Jul, [facility] [place] [facility] [address] [id number] [place] [address] 4691 Jul, [facility] [place] [facility] [address] [id number] [place] [address] 9777 Jun, [facility] [place] [facility] [address] [id number] [place] [address]- 4406 Jun, [facility] [place] [facility] [address] [id number] [place] [address]- 2111 Jun, [facility] [place] [facility] [address] [id number] [place] [address]- 1829 Jun, [facility] [place] [facility] [address] [id number] [place] [address]- 8373 Jun, [facility] [place] [facility] [address] [id number] [place] [address]- 5630 Jun, [facility] [place] [facility] [address] [id number] [place] [address]- 2430 Jun, [facility] [place] [facility] [address] [id number] [place] [address]- 6140 Jun, [facility] [place] [facility] [address] [id number] [place] [address]- 1893 Jun, [facility] [place] [facility] [address] [id number] [place] [address]- 7472 Jun, [facility] [place] [facility] [address] [id number], [place] [address] May, [facility] [place] [facility] [address] [id number] [place] [address]- 1215 May, [facility] [place] [facility] [address] [id number] [place] [address]- 9036 May, [facility] [place] [facility] [address] [id number] [place] [address]- 8314 May, [facility] [place] [facility] [address] [id number], [place] [address] 46[address] May, [facility] [place] [facility] [address] [id number] [place] [address]- 6606 24 May, 2013 [facility] [place] [facility] [address] [id number] [place] [address]- 1347 24 May, 2013 [facility] [place] [facility] [address] [id number] [place] [address]- 0782 May, [facility] [place] [facility] [address] [id number] [place] [address]- 6488 May, [facility] [place] [facility] [address] [id number] [place] [address]- 1911 May, [facility] [place] [facility] [address] [id number] [place] [address]- 3035 17 May, 2013 [facility] [place] [facility] [address] [id number] [place] [address]- 9279 16 May, 2013 [facility] [place] [facility] [address] [id number] [place] [address]- 0969 16 May, 2013 [facility] [place] [facility] [address] [id number] [place] [address]- 7218 16 May, 2013 [facility] [place] [facility] [address] [id number] [place] [address]- 6693 16 May, 2013 [facility] [place] [facility] [address] [id number], [place] [address] 17[address] 24 Apr, 2013 [facility] [place] [facility] [address] [id number] [place] [address]- 7287 23 Apr, 2013 [facility] [place] [facility] [address] [id number] [place] [address]- 2065 Apr, [facility] [place] [facility] [address] [id number] [place] [address]- 6445 Mar, [facility] [place] [facility] [address] [id number] [place] [address]- 1202 Mar, [facility] [place] [facility] [address] [id number] [place] [address]- 0243 Mar, [facility] [address] [id number] [place] [address]- 6804 Mar, [facility] [place] [facility] [address] [id number] [place] [address]- 0658 Mar, [facility] [address] [id number] [place] [address]- 6150 Mar, [facility] [address] [id number] [place] [address]- 9549 Feb, [facility] [address] [id number] [place] [address]- 0230 Feb, [facility] [address] [id number] [place] [address]- 4403 Feb, [facility] [address] [id number] [place] [address]- 6897 Feb, [facility] [address] [id number] [place] [address]- 8261 Feb, [facility] [address] [id number] [place] [address]- 8086 Feb, [facility] [address] [id number] [place] [address]- 0752 Feb, [facility] [place] [place] [facility] [address] [id number] [place] [address]- 5161 Feb, [facility] [address] [id number] [place] [address]- 3043 Feb, [facility] [place] [facility] [address] [id number] [place] [address]- 1247 Feb, [facility] [place] [place] [facility] [address] [id number] [place] [address]- 6282 Jan, [facility] [place] [facility] [address] [id number] [place] [address]- 7459 Jan, [facility] [address] [id number] [place] [address]- 7783 Jan, [facility] [place] [facility] [address] [id number] [place] [address]- 7227 Jan, [facility] [address] [id number] [place] [address]- 9097 December, [facility] [place] [facility] [address] [id number] [place] [address]- 3059 December, [facility] [address] [id number] [place]16 December, [facility] [place] [facility] [address] [id number] [place] [address]- 1765 Nov, [facility] [place] [facility] [address] [id number] [place] [address]- 7932 Nov, [facility] [address] [id number] [place] [address]- 0860 Nov, [facility] [place] [facility] [address] [id number] [place] [address]- 5509 Nov, [facility] [place] [facility] [address] [id number] [place] [address]- 8313 Nov, [facility] [place] [facility] [address] [id number] [place] [address]- 1580 Nov, [facility] [place] [facility] [address] [id number] [place] [address]- 8285 Oct, [facility] [place] [facility] [address] [id number] [place] [address]- 8861 Oct, [facility] [place] [facility] [address] [id number] [place] [address]- 9706 Oct, [facility] [place] [facility] [address] [id number] [place] [address]- 4699 Sep, [facility] [place] [facility] [address] [id number] [place] [address]- 1204 Sep, [facility] [address] [id number] [place] [address]- 9995 Sep, [facility] [place] [facility] [address] [id number] [place] [address]- 2807 Aug, [facility] [place] [facility] [address] [id number] [place] [address]- 4425 Aug, [facility] [place] [facility] [address] [id number] [place] [address]- 3643 Aug, [facility] [place] [facility] [address] [id number] [place] [address]- 8989 Aug, [facility] [place] [facility] [address] [id number] [place] [address]- 8146 Jul, [facility] [address] [id number] [place] [address] Jul, [facility] [place] [facility] [address] [id number] [place] [address]- 0030 Jul, [facility] [place] [facility] [address] [id number] [place] [address]- 7502 Jul, [facility] [place] [facility] [address] [facility] [id number] [place] [address]- 1581 Jun, [facility] [place] [facility] [address] [id number] [place] [address]- 8166 Jun, [facility] [place] [facility] [address] [id number] [place] [address]- 3767 Jun, [facility] [place] [facility] [address] [id number] [place] [address]- 9419 Jun, [facility] [place] [facility] [address] [id number] [place] [address]- 7272 Jun, [facility] [place] [facility] [address] [id number] [place] [address]- 7698 Jun, [facility] [place] [facility] [address] [id number] [place] [address]- 0435 Jun, [facility] [place] [facility] [address] [id number] [place] [address]- 9042 Jun, [facility] [place] [facility] [address] [id number] [place] [address]- 7256 30 May, 2012 [facility] [place] [facility] [address] [id number] [place] [address], [place] [address]- 5021 30 May, 2012 [facility] [place] [facility] [address] [id number] [place] [address]- 7518 May, [facility] [place] [facility] [address] [id number] [place] [address]- 3275 18 May, 2012 [facility] [place] [facility] [address] [id number] [place] [address]- 5385 2012 [facility] [place] [facility] [address] [id number] [place] [address]- 9953 13 May, 2012 [facility] [place] [facility] [address] [id number] [place] [address]- 2376 May, [facility] [place] [facility] [address] [id number] [place] [address]- 3962 11 May, 2012 [facility] [place] [facility] [address] [id number] [place] [address]- 1533 10 May, 2012 [facility] [place] [facility] [address] [id number], [place] [address]- 0106 08 May, 2012 [facility] [place] [facility] [address] [id number] [place] [address]- 6036 24 Apr, 2012 [facility] [place] [facility] [address] [id number] [place] [address]- 9710 19 Apr, 2012 [facility] [place] [facility] [address] [id number] [place] [address]- 6482 18 Apr, 2012 [facility] [place] [facility] [address] [id number] [place] [address]- 6457 17 Apr, 2012 [facility] [place] [facility] [address] [id number] [place] [address]- 6537 16 Apr, 2012 [facility] [place] [facility] [address] [id number] [place] 4996 Apr, [facility] [place] [facility] [address] [id number] [place] [address]- 6022 Mar, [facility] [place] [facility] [address] [id number] [place] [address]- 6153 Mar, [facility] [place] [facility] [address] [id number] [place] [address]- 5222 Mar, [facility] [place] [facility] [address] [id number] [place] [address]- 1968 Mar, [facility] [place] [facility] [address] [id number] [place] [address]- 9937 Mar, [facility] [place] [facility] [address] [id number] [place] [address]- 0273 Mar, [facility] [place] [facility] [address] [id number] [place] [address]- 0784 Feb, [facility] [place] [facility] [address] [id number] [place] [address]- 9844 Feb, [facility] [place] [facility] [address] [id number] [place] [address]- 8386 Feb, [facility] [place] [facility] [address] [id number] [place] [address]- 1953 Feb, [facility] [place] [facility] [address] [id number] [place] [address]- 5240 Feb, [facility] [place] [facility] [address] [id number] [place] [address]- 7516 Feb, [facility] [place] [facility] [address] [id number] [place] [address]- 5827 Feb, [facility] [place] [facility] [address] [id number] [place] [address]- 2516 Feb, [facility] [address] [id number] [place] [address]- 9307 Feb, [facility] [place] [facility] [address] [id number] [place] [address]- 5116 Jan, [facility] [address] [id number] [place] [address]- 9500 Jan, [facility] [place] [facility] [address] [id number] [place] [address]- 4126 Jan, [facility] [address] [id number] [place] [address]- 8807 Jan, [facility] [address] [id number] [place] [address]- 6858 Jan, [facility] [address] [id number] [place] [address]- 4759 Jan, [facility] [address] [id number] [place] [address]- 6748 Jan, [facility] [place] [facility] [address] [id number] [place] [address]- 7806 Jan, [facility] [address] [id number] [place] [address]- 8894 Jan, [facility] [place] [place] [facility] [address] [id number] [place] [address]- 9972 December, [facility] [address] [id number] [place] [address]- 4514 December, [facility] [place] [facility] [address] [id number] [place] [address]- 6338 December, [facility] [place] [facility] [address] [id number] [place] [address]- 1906 December, [facility] [place] [facility] [address] [id number] [place] 3199 December, [facility] [address] [id number] [place] [address]- 7459 December, [facility] [place] [facility] [address] [id number] [place] [address]- 2059 December, [facility] [place] [facility] [address] [id number] [place] [address]- 4496 December, [facility] [place] [facility] [address] [id number] [place] [address]- 3648 December, [facility] [place] [facility] [address] [id number] [place] [address]- 1221 December, [facility] [place] [facility] [address] [id number] [place] [address]- 4679 Nov, [facility] [place] [facility] [address] [id number] [place] [address]- 0149 Nov, [facility] [place] [facility] [address] [id number] [place] [address]- 4991 Nov, [facility] [place] [facility] [address] [id number] [place] [address]- 6214 Nov, [facility] [place] [facility] [address] [id number] [place] [address]- 1384 16 Nov, 2011 [facility] [place] [facility] [address] [id number] [place] [address]- 9879 Nov, [facility] [place] [facility] [address] [id number] [place] [address]- 4382 Nov, [facility] [place] [facility] [address] [id number] [place] [address]- 0426 Nov, [facility] [place] [facility] [address] [id number] [place] [address]- 0173 05 Nov, 2011 [facility] [place] [facility] [address] [id number] [place] [address]- 0170 Nov, [facility] [place] [facility] [address] [id number], [place] [address]- 4219 30 Oct, 2011 [facility] [address] [id number] [place] [address]- 1038 29 Oct, 2011 [facility] [place] [facility] [address] [id number] [place] [address]- 2046 23 Oct, 2011 [facility] [address] [id number] [place] [address]- 2046 23 Oct, 2011 [facility] [place] [facility] [address] [id number] [place] [address]- 3095 21 Oct, 2011 [facility] [address] [id number] [place] [address]- 4597 20 Oct, 2011 [facility] [place] [facility] [address] [id number] [place] [address]- 5184 19 Oct, 2011 [facility] [address] [id number] [place] [address]- 6244 19 Oct, 2011 [facility] [address] [id number] [place] [address]- 0269 16 Oct, 2011 [facility] [address] [id number] [place] [address]- 8449 14 Oct, 2011 [facility] [address] [id number] [place] [address]- 6764 14 Oct, 2011 [facility] [place] [facility] [address] [id number] [place] [address]- 9786 09 Oct, 2011 [facility] [place] [facility] [address] [id number] [place] [address]- 7543 08 Oct, 2011 [facility] [place] [facility] [address] [id number] [place] [address]- 8611 06 Oct, 2011 [facility] [place] [facility] [address] [id number] [place] [address]- 4216 02 Oct, 2011 [facility] [place] [facility] [address] [id number] [place] [address]- 8101 28 Sep, 2011 [facility] [place] [facility] [address] [id number] [place] [address]- 6146 24 Sep, 2011 [facility] [place] [facility] [address] [id number] [place] [address]- 3416 20 Sep, 2011 [facility] [place] [facility] [address] [id number] [place] [address] 2546 17 Sep, 2011 [facility] [place] [facility] [address] [id number] [place] [address]- 6186 16 Sep, 2011 [facility] [place] [facility] [address] [id number] [place] [address]- 2099 14 Sep, 2011 [facility] [place] [facility] [address] [id number] [place] [address]- 8786 13 Sep, 2011 [facility] [place] [facility] [address] [id number] [place] [address]- 0096 10 Sep, 2011 [facility] [place] [facility] [address] [id number] [place] [address]- 0510 06 Sep, 2011 [facility] [place] [facility] [address] [id number] [place] [address]- 2141 03 Sep, 2011 [facility] [place] [facility] [address] [id number] [place] [address]- 5931 Sep, [facility] [place] [facility] [address] [id number] [place] [address]- 4629 Aug, [facility] [place] [facility] [address] [id number] [place] [address] 2540 Aug, [facility] [place] [facility] [address] [id number] [place] [address]- 6496 Aug, [facility] [place] [facility] [address] [id number] [place] [address]- 2586 Aug, [facility] [place] [facility] [address] [id number] [place] [address]- 1278 Aug, [facility] [place] [facility] [address] [id number] [place] [address]- 7262 17 Aug, 2011 [facility] [address] [id number] [place] [address]- 2351 17 Aug, 2011 [facility] [address] [id number] [place] [address]- 8723 17 Aug, 2011 [facility] [address] [id number] [place] [address]- 8866 16 Aug, 2011 [facility] [address] [id number] [place] [address]- 2804 13 Aug, 2011 [facility] [address] [id number] [place] [address]- 5109 11 Aug, 2011 [facility] [address] [id number] [place] [address]- 8543 10 Aug, 2011 [facility] [address] [id number] [place] [address]- 8422 Aug, [facility] [address] [id number] [place] [address]- 7202 Aug, [facility] [address] [id number] [place] [address] Aug, [facility] [address] [id number] [place] [address] Aug, [facility] [address] [id number] [place] [address] Aug, [facility] [address] [id number] [place] [address] Jul, [facility] [place] [facility] [address] [id number] [place] [address] Jul, [facility] [place] [facility] [address] [id number] [place] [address] Jul, [facility] [address] [id number] [place] [address] Jul, [facility] [address] [facility] [id number] [address] Jul, [facility] [address] [facility] [id number], [place] [address] Jul, [facility] [address] [facility] [id number], [place] [address] Jul, [facility] [id number] [place] [address] 16 Jul, 2011 [facility] [address] [facility] [id number], [place] [address] Jul, [facility] [id number] [place] [address] Jul, [facility] [id number] [address] Jul, [facility] [id number] [address] Jun, [facility] [id number] [address] Jun, [facility] [address] [id number] [address] Jun, IMMUNIZATIONS No Known Immunizations SOCIAL HISTORY Never Assessed 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
--- OUTSIDE RECORDS SUMMARY | 2018-08-05 03:41 | XMS REPORT ---
Author Author HEATHER FINE Organization [facility] Address [address] [place] [address] Care Team Providers Care Assurance Engineer Name Role Phone HEATHER FINE Unavailable PROBLEMS Type Condition ICD9-CM Code MSW89-PN Code Onset Dates Condition Status SNOMED Code Problem Unspecified cirrhosis of liver K74.60 Active 940313582 Problem Lymphocytosis D72.820 Active 69656556 Problem Secondary esophageal varices with bleeding I85.11 Active 94832142 Problem Anxiety F41.9 Active 08212160 Problem Asthma J45.909 Active 644977705 Problem Chronic back pain M54.9 Active 843761779 Problem Dysthymia F34.1 Active 09935079 Problem Thrombocytosis D47.3 Active 4858936 Problem Splenomegaly R16.1 Active 52818747 Problem 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 Active 001817789 Problem History of hepatitis C Z86.19 Active [id number] ALLERGIES No Information ENCOUNTERS Encounter Location Date Diagnosis [place] [id number] [place] [address] 92416- 3691 Nov, Chronic back pain M54.9 and Anxiety F41.9 [place] [id number] [place] [address] 63812- 9703 Oct, Chronic back pain M54.9 and Anxiety F41.9 [place] [id number] [place] [address] 48567- 1433 Oct, [place] [address] 06129- 6631 Sep, Chronic back pain M54.9 ; Anxiety F41.9 ; Pain of left leg M79.605 and Pain in right leg M79.604 [place] [address] 01252- 7521 Sep, Anxiety F41.9 and Chronic back pain M54.9 [facility] [id number] [place] [address] 21261- 3271 Sep, [facility] [id number] [place] [address] 46958- 5084 Aug, Anxiety F41.9 [facility] [address] 67753- 8029 Jul, [address] [facility] [address] 55466- 8302 Jul, [facility] [id number] [place] [address] 03377- 2926 Jul, Viral syndrome B34.9 ; Chronic back pain M54.[address] [facility] [id number] [place] [address] 93183- 4496 Jun, [facility] [id number] [place] [address] 39159- 8096 Jun, Anxiety F41.9 [facility] [id number] [place] [address] 24141 -7341 Jun, Dysuria R30.0 and Acute cystitis without hematuria N30.00 [facility] [id number] [place] [address] 42634- 9361 Jun, [facility] [id number] [place] [address] 81899- 5894 May, Anxiety F41.9 [facility] [id number] [place] [address] 35745- 0165 May, Anxiety F41.9 [facility] [id number] [place] [address] 72699- 8771 Apr, [facility] [id number] [place] [address] 46340- 6964 Apr, Chronic back pain M54.[address] [facility] [address] [address]- 0368 Mar, [facility] [id number] [address]- 5303 Mar, [facility] [id number] [place] [address] 85422- 5696 Mar, Well woman exam Z01.419 ; Cervical cancer screening Z12.4 ; Breast cancer screening Z12.31 and Colon cancer screening Z12.11 [facility] [id number] [place] [address] 42930- 2922 Mar, Chronic back pain M54.[address] [facility] [id number] [address]- 5979 Mar, [facility] [id number] [place] [address] 98124- 0801 Feb, Chronic back pain M54.[address] [facility] [id number] [place] [address] 26970- 6926 Feb, [facility] [id number] [place] [address] 54904- 6008 Feb, [facility] [address], [place] [address]- 1789 Jan, Chronic back pain M54.[address] [facility] [address], [place] [address]- 6919 Jan, [facility] [id number] [place] [address] 38815- 5387 Jan, [facility] [id number], [place] [address]- 5373 December, Chronic back pain M54.[address] [facility] [id number] [place] [address] 51516- 8173 Nov, Chronic back pain M54.[address] [facility] [id number] [place] [address] 15560- 1125 Oct, Chronic back pain M54.[address] [facility] [id number] [place] [address] 99703- 4986 Oct, Chronic back pain M54.9 [facility] [id number] [place] [address] 83417- 6189 Sep, Anxiety F41.9 and Chronic back pain M54.9 [facility] [id number] [place] [address] 71436- 0191 Aug, Anxiety F41.9 and Chronic back pain M54.9 [facility] [id number] [place] [address] 50854- 9783 Aug, [facility] [id number] [place] [address] 91407- 9740 Jul, Chronic back pain M54.[address] [facility] [id number] [place] [address] 84186- 2893 Jul, Anxiety F41.9 and Chronic back pain M54.9 [facility] [place] [id number] [id number] Jul, [facility] [address] [place] [address] 06488- 1480 Jul, Anxiety F41.9 [facility] [address] [place] [address] 63988- 7657 Jul, Anxiety F41.[address] [facility] [id number] [place] [address] 98961- 6143 Jul, Chronic back pain M54.[address] [facility] [id number] [place] [address] 79689- 5594 Jun, Chronic back pain M54.9 [facility] [id number] [place] [address] 09234- 7406 Jun, Chronic back pain M54.9 [facility] [address] [facility] [id number] [address] 2546 May, Anxiety F41.9 [facility] [address] [facility] [id number] [place] [address] 85905 2546 May, Chronic back pain M54.9 [facility] [address] [facility] [id number] [place] [address] 86668- 3796 Apr, [facility] [address] [facility] [id number] [place] [address] 94860- 7906 Apr, [facility] [address] [facility] [id number] [place] [address] 13793- 6936 Apr, [facility] [address] [facility] [id number] [place] [address] 10903 2547 Apr, Chronic back pain M54.9 [facility] [address] [facility] [id number] [place] [address] 72212- 1247 Mar, Chronic back pain M54.9 [facility] [address] [facility] [id number] [place] [address] 72148- 4426 Feb, Grief F43.20 [facility] [address] [facility] [id number] [place] [address] 55934- 6014 Feb, Chronic back pain M54.[address] [facility] [address] [facility] [id number], [place] [address]- 1996 Feb, Chronic back pain M54.9 [facility] [address] [facility] [id number] [place] [address] 83874- 5906 Jan, Chronic back pain M54.9 [facility] [address] [facility] [id number] [place] [address] 32450- 7887 December, [facility] [id number] [place] [address] 37439- 6877 December, Grief F43.20 [facility] [id number] [place] [address] 88239- 0069 Nov, [facility] [id number] [place] [address] 15568- 6542 Oct, Cervicalgia M54.2 ; Secondary esophageal varices with bleeding I85.11 and Mouth pain K13.79 [facility] [id number] [place] [address] 81353- 6142 Oct, [facility] [id number] [place] [address] 18932- 8187 Oct, [facility] [id number] [place] [address] 31229- 5598 Sep, [facility] [id number] [place] [address] 56081- 7952 Sep, Acute maxillary sinusitis, recurrence not specified J01.00 [facility] [id number] [place] [address] 44014- 9760 Aug, [facility] [id number] [place] [address] 93626- 7957 Aug, [facility] [id number] [place] [address] 69986- 8211 Aug, Dysuria R30.0 and Chronic back pain M54.9 [facility] [id number] [place] [address] 99344- 2974 Jul, [facility] [id number] [place] [address] 56019- 9867 Jul, [facility] [id number] [place] [address] 85053- 1356 10 Jul, 2015 [facility] [id number] [place] [address] 32715- 3450 Jul, Chronic back pain M54.9 [facility] [id number] [place] [address] 03076- 4868 Jul, Dysthymia F34.1 and Chronic back pain M54.9 [facility] [id number] [place] [address] 02430- 4848 Jun, [facility] [address] 84096- 9745 Jun, [facility] [id number] [place] [address] 03322- 6279 May, [facility] [id number] [place] [address] 74857- 7167 May, [facility] [id number] [place] [address] 59314- 1800 May, [facility] [id number] [place] [address] 55624- 1579 May, Encounter for immunization Z23 [facility] [id number] [place] [address] 46931- 6667 Apr, [facility] [id number] [place] [address] 06541- 6718 Apr, [facility] [id number] [place] [address] 18708- 8289 Mar, [facility] [id number] [place] [address] 30914- 0057 Mar, Back pain 724.5 [facility] [id number] [place] [address] 79784- 0031 Mar, Cough 786.2 [address] Back pain 724.5 [facility] [id number] [place] [address] 23178- 7771 Mar, [facility] [id number] [place] [address] 71304- 0318 Mar, [facility] [place] [facility] [address] [id number] [place] [address]- 4837 December, [facility] [place] [facility] [address] [id number] [place] [address]- 4290 December, [facility] [place] [facility] [address] [id number] [place] [address]- 2373 Nov, [facility] [place] [facility] [address] [id number] [place] [address]- 4659 Nov, [facility] [place] [facility] [address] [id number] [place] [address]- 0038 Oct, [facility] [place] [facility] [address] [id number] [place] [address]- 4752 Oct, [facility] [place] [facility] [address] [facility] [id number] [place] [address]- 8702 Sep, [facility] [place] [facility] [address] [id number] [place] [address]- 9459 Sep, [facility] [place] [facility] [address] [id number] [place] [address]- 7308 Sep, [facility] [place] [facility] [address] [facility] [id number] [place] [address]- 4244 Sep, [facility] [place] [facility] [address] [id number] [place] [address]- 5277 Sep, [facility] [place] [facility] [address] [id number] [place] [address]- 6856 Sep, [facility] [place] [facility] [address] [id number] [place] [address]- 5642 Sep, [facility] [place] [facility] [address] [id number] [place] [address]- 8050 Sep, [facility] [place] [facility] [address] [facility] [id number] [place] [address]- 2176 Aug, [facility] [place] [facility] [address] [id number] [place] [address]- 3601 14 Aug, 2014 [facility] [address] [id number] [place] [address]- 8840 14 Aug, 2014 [facility] [place] [facility] [address] [id number] [place] [address]- 1208 13 Aug, 2014 [facility] [place] [facility] [address] [id number] [place] [address]- 9614 13 Aug, 2014 [facility] [place] [facility] [address] [id number] [place] [address]- 9049 12 Aug, 2014 [facility] [place] [facility] [address] [id number] [place] [address]- 5181 Aug, [facility] [place] [facility] [address] [id number] [place] [address]- 9886 Jul, [facility] [address] [id number] [place] [address]- 8970 Jul, [facility] [place] [facility] [address] [id number] [place] [address]- 2674 Jul, [facility] [place] [facility] [address] [id number] [place] [address]- 8018 Jul, [facility] [place] [facility] [address] [id number] [place] [address]- 0700 15 Jul, 2014 [facility] [place] [facility] [address] [id number] [place] [address]- 0127 Jul, [facility] [place] [facility] [address] [id number] [place] [address]- 9737 Jul, [facility] [place] [facility] [address] [id number] [place] 6061 Jul, [facility] [place] [facility] [address] [id number] [place] [address]- 0288 Jun, [facility] [place] [facility] [address] [id number] [place] [address]- 8899 Jun, [facility] [place] [facility] [address] [id number] [place] [address]- 8137 Jun, [facility] [place] [facility] [address] [id number] [place] 7054 Jun, [facility] [place] [facility] [address] [id number] [place] [address]- 5794 Jun, [facility] [place] [facility] [address] [id number] [place] [address]- 1064 Jun, [facility] [place] [facility] [address] [id number] [place] [address]- 8398 Jun, [facility] [place] [facility] [address] [id number] [place] [address]- 3477 May, [facility] [place] [facility] [address] [id number] [place] [address]- 8255 May, [facility] [place] [facility] [address] [id number] [place] [address]- 9821 May, [facility] [place] [facility] [address] [id number] [place] [address]- 4345 May, [facility] [place] [facility] [address] [id number] [place] [address]- 4815 May, [facility] [place] [facility] [address] [id number] [place] [address]- 2055 2014 [facility] [place] [facility] [address] [id number] [place] [address]- 6843 2014 [facility] [place] [facility] [address] [id number] [place] [address]- 0329 2014 [facility] [place] [facility] [address] [id number] [place] [address]- 2605 13 May, 2014 [facility] [place] [facility] [address] [id number] [place] [address]- 0399 13 May, 2014 [facility] [place] [facility] [address] [id number] [place] [address]- 4056 May, [facility] [place] [facility] [address] [id number] [place] [address]- 8588 May, [facility] [place] [facility] [address] [id number] [place] [address]- 4031 May, [facility] [place] [facility] [address] [id number] [place] [address]- 7724 May, [facility] [place] [facility] [address] [id number] [place] [address]- 1447 Apr, [facility] [place] [facility] [address] [id number] [place] [address]- 9229 Apr, [facility] [place] [facility] [address] [id number] [place] [address]- 5293 Apr, [facility] [place] [facility] [address] [id number] [place] [address]- 0555 Apr, [facility] [place] [facility] [address] [id number] [place] [address]- 0590 Apr, [facility] [place] [facility] [address] [id number] [place] [address]- 2777 Apr, [facility] [place] [facility] [address] [id number] [place] [address]- 3928 Apr, [facility] [place] [facility] [address] [id number] [place] [address]- 0713 Mar, [facility] [place] [facility] [address] [id number] [place] [address]- 6632 Mar, [facility] [place] [facility] [address] [id number] [place] [address]- 6385 Mar, [facility] [place] [facility] [address] [id number] [place] [address]- 7329 Mar, [facility] [place] [facility] [address] [id number] [place] [address]- 1412 Mar, [facility] [place] [facility] [address] [id number] [place] [address]- 2546 Mar, [facility] [place] [facility] [address] [id number] [place] [address]- 7034 Feb, [facility] [place] [facility] [address] [id number] [place] [address]- 8786 Feb, [facility] [place] [facility] [address] [id number] [place] [address]- 5721 Feb, [facility] [place] [facility] [address] [id number] [place] [address]- 8634 Feb, [facility] [place] [facility] [address] [id number] [place] [address]- 5229 Feb, [facility] [place] [facility] [address] [id number] [place] [address]- 0666 Feb, [facility] [place] [facility] [address] [id number] [place] [address]- 6570 Feb, [facility] [address] [id number] [place] [address]- 1578 Feb, [facility] [place] [facility] [address] [id number] [place] [address]- 8426 Jan, [facility] [place] [facility] [address] [id number] [place] [address]- 5685 Jan, [facility] [place] [facility] [address] [id number] [place] [address] December, [facility] [place] [facility] [address] [id number] [place] [address] December, [facility] [place] [facility] [address] [id number] [place] [address] December, [facility] [place] [facility] [address] [id number] [place] [address] December, [facility] [place] [facility] [address] [id number] [place] [id number] December, [facility] [place] [facility] [address] [id number] [place] [address] December, [facility] [place] [facility] [address] [id number] [place] [address] December, [facility] [place] [facility] [address] [id number] [place] [address] December, [facility] [place] [facility] [address] [id number] [place] [address] December, [facility] [place] [facility] [address] [id number] [place] [address] December, [facility] [place] [facility] [address] [id number] [place] [address] December, [facility] [place] [facility] [address] [id number] [place] [address] December, [facility] [place] [facility] [address] [id number] [place] [address] Nov, [facility] [place] [facility] [address] [id number] [place] [address] Nov, [facility] [place] [facility] [address] [id number] [place] [address] Nov, [facility] [place] [facility] [address] [id number] [place] [address] Nov, [facility] [place] [facility] [address] [id number] [place] [address] Nov, [facility] [place] [facility] [address] [id number] [place] [address] Nov, [facility] [place] [facility] [address] [id number] [place] [address] Nov, [facility] [place] [facility] [address] [id number] [place] [address]- [address] Nov, [facility] [place] [facility] [address] [id number] [place] [address] Nov, [facility] [place] [facility] [address] [id number] [place] [address]- [address] Nov, [facility] [place] [facility] [address] [id number] [place] [address] Nov, [facility] [place] [facility] [address] [id number] [place] [address] Nov, [facility] [place] [facility] [address] [id number] [place] [address] Nov, [facility] [place] [facility] [address] [id number] [place] [address] Oct, [facility] [place] [facility] [address] [id number] [place] [address] Oct, [facility] [place] [facility] [address] [facility] [id number] [place] [address] Sep, [facility] [place] [facility] [address] [id number] [place] [address] Sep, [facility] [place] [facility] [address] [id number] [place] [address] Sep, [facility] [place] [facility] [address] [facility] [id number] [place] [address] Sep, [facility] [place] [facility] [address] [facility] [id number] [place] [address] 24 Sep, 2013 [facility] [place] [facility] [address] [facility] [id number] [place] [address] Sep, [facility] [place] [facility] [address] [facility] [id number] [place] [address]- [address] Sep, [facility] [place] [facility] [address] [facility] [id number] [place] [address] 18 Sep, 2013 [facility] [place] [facility] [address] [id number] [place] [address] Sep, [facility] [place] [facility] [address] [id number] [place] [address] Sep, [facility] [place] [facility] [address] [id number] [place] [address] Sep, [facility] [place] [facility] [address] [id number] [place] [address] Sep, [facility] [place] [facility] [address] [id number] [place] [address] Aug, [facility] [place] [facility] [address] [id number] [place] [address] Aug, [facility] [place] [facility] [address] [id number] [place] [address] Aug, [facility] [place] [facility] [address] [id number] [place] [address]- [address] Aug, [facility] [place] [facility] [address] [id number] [place] [address]- 65[address] Aug, [facility] [place] [facility] [address] [id number] [place] [address]- [address] Aug, [facility] [place] [facility] [address] [id number] [place] [address] Aug, [facility] [place] [facility] [address] [id number] [place] [address] Aug, [facility] [place] [facility] [address] [id number], [place] [address] Aug, [facility] [place] [facility] [address] [id number] [place] [address] Aug, [facility] [place] [facility] [address] [id number] [place] [address]- [address]20 Aug, [facility] [place] [facility] [address] [id number] [place] [address]39 Aug, [facility] [place] [facility] [address] [id number] [place] [address]- [address] 13 Aug, 2013 [facility] [address] [id number] [place] [address] 13 Aug, 2013 [facility] [place] [facility] [address] [id number] [place] [address]- [address] Aug, [facility] [address] [id number] [place] [address] Aug, [facility] [place] [facility] [address] [id number] [place] [address]- [address] Aug, [facility] [address] [id number] [place] [address] Aug, [facility] [facility] [address] [id number] [place] [address] Aug, [facility] [address] [id number] [place] [address] Aug, [facility] [address] [id number] [place] [address] 95[address] Aug, [facility] [place] [facility] [address] [id number] [place] [address] Aug, [facility] [address] [id number] [place] [address] Aug, [facility] [address] [id number] [place] [address] 4[address] Jul, [facility] [place] [facility] [address] [id number] [place] [address] 9529 Jul, [facility] [place] [facility] [address] [id number] [place] [address] 4982 Jul, [facility] [place] [facility] [address] [id number] [place] [address] 8074 Jul, [facility] [place] [facility] [address] [id number] [place] [address] 1992 Jul, [facility] [place] [facility] [address] [id number] [place] [address] 4216 Jul, [facility] [place] [facility] [address] [id number] [place] [address]- 0453 Jun, [facility] [place] [facility] [address] [id number] [place] [address] 1848 Jun, [facility] [place] [facility] [address] [id number] [place] [address]- 3707 Jun, [facility] [place] [facility] [address] [id number] [place] [address]- 7889 Jun, [facility] [place] [facility] [address] [id number] [place] [address] Jun, [facility] [place] [facility] [address] [id number] [place] [address]- 0951 Jun, [facility] [place] [facility] [address] [id number] [place] [address]- 8058 Jun, [facility] [place] [facility] [address] [id number] [place] [address]- 1681 Jun, [facility] [place] [facility] [address] [id number] [place] [address]- 6500 Jun, [facility] [place] [facility] [address] [id number] [place] [address]- 1749 Jun, [facility] [place] [facility] [address] [id number], [place] [address] 6[address] May, [facility] [place] [facility] [address] [id number] [place] [address] 9954 May, [facility] [place] [facility] [address] [id number] [place] [address]- 2485 May, [facility] [place] [facility] [address] [id number] [place] [address]- 0375 May, [facility] [place] [facility] [address] [id number], [place] [address]- 4[address] May, [facility] [place] [facility] [address] [id number] [place] [address]- 2110 24 May, 2013 [facility] [place] [facility] [address] [id number] [place] [address]- 0951 24 May, 2013 [facility] [place] [facility] [address] [id number] [place] [address]- 0119 May, [facility] [place] [facility] [address] [id number] [place] [address]- 1265 May, [facility] [place] [facility] [address] [id number] [place] [address]- 8752 May, [facility] [place] [facility] [address] [id number] [place] [address]- 5364 17 May, 2013 [facility] [place] [facility] [address] [id number] [place] [address]- 1398 16 May, 2013 [facility] [place] [facility] [address] [id number] [place] [address]- 3345 16 May, 2013 [facility] [place] [facility] [address] [id number] [place] [address]- 8106 16 May, 2013 [facility] [place] [facility] [address] [id number] [place] [address]- 8218 16 May, 2013 [facility] [place] [facility] [address] [id number], [place] [address]- 2756 24 Apr, 2013 [facility] [place] [facility] [address] [id number] [place] [address]- 0538 23 Apr, 2013 [facility] [place] [facility] [address] [id number] [place] [address]- 4853 Apr, [facility] [place] [facility] [address] [id number] [place] [address]- 0052 Mar, [facility] [place] [facility] [address] [id number] [place] [address]- 6321 Mar, [facility] [place] [facility] [address] [id number] [place] [address] 1929 Mar, [facility] [address] [id number] [place] [address] 0431 Mar, [facility] [place] [facility] [address] [id number] [place] [address] 1942 Mar, [facility] [address] [id number] [place] [address]- 9168 Mar, [facility] [address] [id number] [place] [address]- 9843 Feb, [facility] [address] [id number] [place] [address]- 4510 Feb, [facility] [address] [id number] [place] [address]- 1649 Feb, [facility] [address] [id number] [place] [address]- 4495 Feb, [facility] [address] [id number] [place] [address]- 2728 Feb, [facility] [address] [id number] [place] [address]- 3734 Feb, [facility] [address] [id number] [place] [address]- 7925 Feb, [facility] [place] [facility] [address] [id number] [place] [address]- 1626 Feb, [facility] [address] [id number] [place] [address]- 4383 Feb, [facility] [place] [facility] [address] [id number] [place] [address]- 7435 Feb, [facility] [place] [facility] [address] [id number] [place] [address]- 2914 Jan, [facility] [place] [facility] [address] [id number] [place] [address]- 8997 Jan, [facility] [address] [id number] [place] [address]- 1679 Jan, [facility] [place] [facility] [address] [id number] [place] [address]- 9954 Jan, [facility] [address] [id number] [place] [address]- 8796 December, [facility] [place] [facility] [address] [id number] [place] [address]- 8045 December, [facility] [address] [id number] [place] [address] December, [facility] [place] [facility] [address] [id number] [place] [address]- 3165 Nov, [facility] [place] [facility] [address] [id number] [place] [address]- 6267 Nov, [facility] [address] [id number] [place] [address]- 1862 Nov, [facility] [place] [facility] [address] [id number] [place] [address]- 0643 Nov, [facility] [place] [facility] [address] [id number] [place] [address]- 8109 Nov, [facility] [place] [facility] [address] [id number] [place] [address]- 6298 Nov, [facility] [place] [facility] [address] [id number] [place] [address]- 8928 Oct, [facility] [place] [facility] [address] [id number] [place] [address]- 8017 Oct, [facility] [place] [facility] [address] [id number] [place] [address]- 9594 Oct, [facility] [place] [facility] [address] [id number] [place] [address]- 7373 Sep, [facility] [place] [facility] [address] [id number] [place] [address]- 1661 Sep, [facility] [address] [id number] [place] [address]- 5546 Sep, [facility] [place] [facility] [address] [id number] [place] [address]- 0262 Aug, [facility] [place] [facility] [address] [id number] [place] [address]- 0666 Aug, [facility] [place] [facility] [address] [id number] [place] [address]- 3040 Aug, [facility] [place] [facility] [address] [id number] [place] [address]- 6571 Aug, [facility] [place] [facility] [address] [id number] [place] [address]- 0358 Jul, [facility] [address] [id number] [place] [address] Jul, [facility] [place] [facility] [address] [id number] [place] [address]- 7530 Jul, [facility] [place] [facility] [address] [id number] [place] [address]- 3426 Jul, [facility] [place] [facility] [address] [facility] [id number] [place] [address]- 7430 Jun, [facility] [place] [facility] [address] [id number] [place] [address]- 4943 Jun, [facility] [place] [facility] [address] [id number] [place] [address]- 7131 Jun, [facility] [place] [facility] [address] [id number] [place] [address]- 0624 Jun, [facility] [place] [facility] [address] [id number] [place] [address]- 8715 Jun, [facility] [place] [facility] [address] [id number] [place] [address]- 5293 Jun, [facility] [place] [facility] [address] [id number] [place] [address]- 1169 Jun, [facility] [place] [facility] [address] [id number] [place] [address]- 3118 Jun, [facility] [place] [facility] [address] [id number] [place] [address]- 6475 30 May, 2012 [facility] [place] [facility] [address] [id number] [place] [address], [place] [address]- 1631 30 May, 2012 [facility] [place] [facility] [address] [id number] [place] [address]- 6217 May, [facility] [place] [facility] [address] [id number] [place] [address]- 3619 18 May, 2012 [facility] [place] [facility] [address] [id number] [place] [address]- 3004 2012 [facility] [place] [facility] [address] [id number] [place] [address]- 0106 13 May, 2012 [facility] [place] [facility] [address] [id number] [place] [address]- 1318 May, [facility] [place] [facility] [address] [id number] [place] [address]- 2001 11 May, 2012 [facility] [place] [facility] [address] [id number] [place] [address]- 7099 10 May, 2012 [facility] [place] [facility] [address] [id number], [place] [address]- 7875 08 May, 2012 [facility] [place] [facility] [address] [id number] [place] [address]- 3252 24 Apr, 2012 [facility] [place] [facility] [address] [id number] [place] [address]- 5935 19 Apr, 2012 [facility] [place] [facility] [address] [id number] [place] [address]- 1721 18 Apr, 2012 [facility] [place] [facility] [address] [id number] [place] [address]- 1695 17 Apr, 2012 [facility] [place] [facility] [address] [id number] [place] [address]- 0966 16 Apr, 2012 [facility] [place] [facility] [address] [id number] [place] [address] Apr, [facility] [place] [facility] [address] [id number] [place] [address]- 8253 Mar, [facility] [place] [facility] [address] [id number] [place] [address]- 7078 Mar, [facility] [place] [facility] [address] [id number] [place] [address]- 1729 Mar, [facility] [place] [facility] [address] [id number] [place] [address]- 7738 Mar, [facility] [place] [facility] [address] [id number] [place] [address]- 2013 Mar, [facility] [place] [facility] [address] [id number] [place] [address]- 4176 Mar, [facility] [place] [facility] [address] [id number] [place] [address]- 5090 Feb, [facility] [place] [facility] [address] [id number] [place] [address]- 9624 Feb, [facility] [place] [facility] [address] [id number] [place] [address]- 9856 Feb, [facility] [place] [facility] [address] [id number] [place] [address]- 0933 Feb, [facility] [place] [facility] [address] [id number] [place] [address]- 9206 Feb, [facility] [place] [facility] [address] [id number] [place] [address]- 5941 Feb, [facility] [place] [facility] [address] [id number] [place] [address]- 1574 Feb, [facility] [place] [facility] [address] [id number] [place] [address]- 6309 Feb, [facility] [address] [id number] [place] [address]- 2964 Feb, [facility] [place] [facility] [address] [id number] [place] [address]- 1599 Jan, [facility] [address] [id number] [place] [address]- 8499 Jan, [facility] [place] [facility] [address] [id number] [place] [address]- 6498 Jan, [facility] [address] [id number] [place] [address]- 8257 Jan, [facility] [address] [id number] [place] [address]- 3729 Jan, [facility] [address] [id number] [place] [address]- 0115 Jan, [facility] [address] [id number] [place] [address]- 0258 Jan, [facility] [place] [facility] [address] [id number] [place] [address]- 1603 Jan, [facility] [address] [id number] [place] [address]- 2360 Jan, [facility] [place] [facility] [address] [id number] [place] [address]- 6600 December, [facility] [address] [id number] [place] [address]- 3906 December, [facility] [place] [facility] [address] [id number] [place] [address]- 4420 December, [facility] [place] [facility] [address] [id number] [place] [address]- 1286 December, [facility] [place] [facility] [address] [id number] [place] [address] December, [facility] [address] [id number] [place] [address]- 6229 December, [facility] [place] [facility] [address] [id number] [place] [address]- 7549 December, [facility] [place] [facility] [address] [id number] [place] [address]- 0071 December, [facility] [place] [facility] [address] [id number] [place] [address]- 9525 December, [facility] [place] [facility] [address] [id number] [place] [address]- 8082 December, [facility] [place] [facility] [address] [id number] [place] [address]- 1662 Nov, [facility] [place] [facility] [address] [id number] [place] [address]- 3121 Nov, [facility] [place] [facility] [address] [id number] [place] [address]- 6824 Nov, [facility] [place] [facility] [address] [id number] [place] [address]- 2335 Nov, [facility] [place] [facility] [address] [id number] [place] [address]- 8519 16 Nov, 2011 [facility] [place] [facility] [address] [id number] [place] [address]- 0966 Nov, [facility] [place] [facility] [address] [id number] [place] [address]- 5717 Nov, [facility] [place] [facility] [address] [id number] [place] [address]- 3185 Nov, [facility] [place] [facility] [address] [id number] [place] [address]- 5647 05 Nov, 2011 [facility] [place] [facility] [address] [id number] [place] [address]- 0147 Nov, [facility] [place] [facility] [address] [id number], [place] [address]- 3834 30 Oct, 2011 [facility] [address] [id number] [place] [address]- 4100 29 Oct, 2011 [facility] [place] [facility] [address] [id number] [place] [address]- 2216 23 Oct, 2011 [facility] [address] [id number] [place] [address]- 0456 23 Oct, 2011 [facility] [place] [facility] [address] [id number] [place] [address]- 9876 21 Oct, 2011 [facility] [address] [id number] [place] [address]- 6132 20 Oct, 2011 [facility] [place] [facility] [address] [id number] [place] [address]- 9042 19 Oct, 2011 [facility] [address] [id number] [place] [address]- 9043 19 Oct, 2011 [facility] [address] [id number] [place] [address]- 4504 16 Oct, 2011 [facility] [address] [id number] [place] [address]- 9795 14 Oct, 2011 [facility] [address] [id number] [place] [address]- 2880 14 Oct, 2011 [facility] [place] [facility] [address] [id number] [place] [address]- 0018 09 Oct, 2011 [facility] [place] [facility] [address] [id number] [place] [address]- 4857 08 Oct, 2011 [facility] [place] [facility] [address] [id number] [place] [address]- 6592 06 Oct, 2011 [facility] [place] [facility] [address] [id number] [place] [address]- 9536 02 Oct, 2011 [facility] [place] [facility] [address] [id number] [place] [address]- 6484 28 Sep, 2011 [facility] [place] [facility] [address] [id number] [place] [address]- 1866 24 Sep, 2011 [facility] [place] [facility] [address] [id number] [place] [address]- 2256 20 Sep, 2011 [facility] [place] [facility] [address] [id number] [place] [address] 2546 17 Sep, 2011 [facility] [place] [facility] [address] [id number] [place] [address]- 3836 16 Sep, 2011 [facility] [place] [facility] [address] [id number] [place] [address]- 4013 14 Sep, 2011 [facility] [place] [facility] [address] [id number] [place] [address]- 7626 13 Sep, 2011 [facility] [place] [facility] [address] [id number] [place] [address]- 3566 10 Sep, 2011 [facility] [place] [facility] [address] [id number] [place] [address]- 0274 06 Sep, 2011 [facility] [place] [facility] [address] [id number] [place] [address]- 7471 03 Sep, 2011 [facility] [place] [facility] [address] [id number] [place] [address]- 1687 Sep, [facility] [place] [facility] [address] [id number] [place] [address]- 4058 Aug, [facility] [place] [facility] [address] [id number] [place] [address] 2540 Aug, [facility] [place] [facility] [address] [id number] [place] [address]- 0216 Aug, [facility] [place] [facility] [address] [id number] [place] [address]- 3729 Aug, [facility] [place] [facility] [address] [id number] [place] [address]- 1191 Aug, [facility] [place] [facility] [address] [id number] [place] [address]- 0061 17 Aug, 2011 [facility] [address] [id number] [place] [address]- 4659 17 Aug, 2011 [facility] [address] [id number] [place] [address]- 9033 17 Aug, 2011 [facility] [address] [id number] [place] [address]- 8436 16 Aug, 2011 [facility] [address] [id number] [place] [address]- 6233 13 Aug, 2011 [facility] [address] [id number] [place] [address]- 8851 11 Aug, 2011 [facility] [address] [id number] [place] [address]- 2502 10 Aug, 2011 [facility] [address] [id number] [place] [address]- 7011 Aug, [facility] [address] [id number] [place] [address] Aug, [facility] [address] [id number] [place] [address] Aug, [facility] [address] [id number] [place] [address] Aug, [facility] [address] [id number] [place] [address] Aug, [facility] [address] [id number] [place] [address] Jul, [facility] [place] [facility] [address] [id number] [place] [address] Jul, [facility] [place] [facility] [address] [id number] [place] [address] Jul, [facility] [address] [id number] [place] [address] Jul, [facility] [address] [facility] [id number] [address] Jul, [facility] [address] [facility] [id number] [address] Jul, [facility] [address] [facility] [id number] [address] Jul, [facility] [address] [facility] [id number], [place] [address] [address], [address] [facility] [address] [facility] [id number], [place] [address] Jul, [facility] [address] [facility] [id number] [address] Jul, [facility] [id number] [address] Jul, [facility] [id number] [address] Jun, [facility] [address] [id number] [address] Jun, [facility] [address] [id number], [place] [address] Jun, IMMUNIZATIONS No Known Immunizations SOCIAL HISTORY Never Assessed REASON FOR VISIT Requests return call PLAN OF CARE VITAL SIGNS MEDICATIONS Medication Instructions Dosage Frequency Start Date End Date Duration Status Nadolol 40 MG Orally Once a day 0.5 tablet 24h 180 days Active Folic Acid 1 MG Orally [...]
--- OUTSIDE RECORDS SUMMARY | 2018-08-05 03:42 | XMS REPORT ---
Author Author HEATHER FINE [facility] eClinicalWorks Address Unknown Phone Unavailable Care Team Providers Care Drug Safety Specialist Name Role Phone HEATHER FINE CP Unavailable Allergies No Known Allergies Problems Problem Type Condition Code Onset Dates Condition Status Assessment Chronic back pain M54.9 Active Problem Chronic back pain M54.9 Active Problem Asthma, unspecified, unspecified status 493.90 Active Problem Dysthymia F34.1 Active Problem Lumbago 724.2 Active Problem Esophageal varices without mention of bleeding 456.1 Active Problem Unspecified thrombocytopenia 287.5 Active Problem Anxiety state, unspecified 300.00 Active Medications No Known Medications Procedures Procedure Coding System Code Date No Charge CPT-4 17635 Jul 19, 2015 Results No Known Results Summary Purpose eClinicalWorks Submission
--- OUTSIDE RECORDS SUMMARY | 2018-08-05 03:42 | XMS REPORT ---
Author Author HEATHER FINE Organization [facility] Address [address] [place] [address] Care Team Providers Care Yarn Polishing Machine Operator Name Role Phone HEATHER FINE Unavailable PROBLEMS Type Condition ICD9-CM Code NZU08-CM Code Onset Dates Condition Status SNOMED Code Problem Unspecified cirrhosis of liver K74.60 Active 197613757 Problem Lymphocytosis D72.820 Active 55634603 Problem Secondary esophageal varices with bleeding I85.11 Active 21300920 Problem Anxiety F41.9 Active 21135171 Problem Asthma J45.909 Active 583395959 Problem Chronic back pain M54.9 Active 140723276 Problem Dysthymia F34.1 Active 15406127 Problem Thrombocytosis D47.3 Active 4105873 Problem Splenomegaly R16.1 Active 60421507 Problem 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 Active 133086427 Problem History of hepatitis C Z86.19 Active [id number] ALLERGIES No Information SOCIAL HISTORY Never Assessed PLAN OF CARE VITAL SIGNS MEDICATIONS Medication Instructions Dosage Frequency Start Date End Date Duration Status Oxycodone HCl 5 MG Orally Once a day 1 tablet at bedtime 24h December, 28 days Active Ativan 0.5 MG Orally [...]
--- OUTSIDE RECORDS SUMMARY | 2018-08-05 03:42 | XMS REPORT ---
Author Author HEATHER FINE Organization [facility] Address [address] [place] [address] Care Team Providers Care Elevated Motorman Name Role Phone HEATHER FINE Unavailable PROBLEMS Type Condition ICD9-CM Code XKK46-HD Code Onset Dates Condition Status SNOMED Code Problem Unspecified cirrhosis of liver K74.60 Active 858844873 Problem Lymphocytosis D72.820 Active 57902173 Problem Secondary esophageal varices with bleeding I85.11 Active 37438764 Problem Anxiety F41.9 Active 71182992 Problem Asthma J45.909 Active 818933352 Problem Chronic back pain M54.9 Active 260854151 Problem Dysthymia F34.1 Active 81187537 Problem Thrombocytosis D47.3 Active 6398589 Problem Splenomegaly R16.1 Active 66867399 Problem 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 Active 764518226 Problem History of hepatitis C Z86.19 Active [id number] ALLERGIES No Information SOCIAL HISTORY Never Assessed [...]
--- OUTSIDE RECORDS SUMMARY | 2018-08-05 03:42 | XMS REPORT ---
Author Author HEATHER FINE Organization [facility] Address [address] [place] [address] Care Team Providers Care Humanities Coordinator Name Role Phone HEATHER FINE Unavailable PROBLEMS Type Condition ICD9-CM Code HGR46-SI Code Onset Dates Condition Status SNOMED Code Problem Unspecified cirrhosis of liver K74.60 Active 327374985 Problem Lymphocytosis D72.820 Active 33376466 Problem Secondary esophageal varices with bleeding I85.11 Active 93807725 Problem Anxiety F41.9 Active 78154934 Problem Asthma J45.909 Active 304095605 Problem Chronic back pain M54.9 Active 199526396 Problem Dysthymia F34.1 Active 66306337 Problem Thrombocytosis D47.3 Active 3892420 Problem Splenomegaly R16.1 Active 86348780 Problem 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 Active 517618980 Problem History of hepatitis C Z86.19 Active [id number] ALLERGIES No Information SOCIAL HISTORY Never Assessed PLAN OF CARE VITAL SIGNS MEDICATIONS Medication Instructions Dosage Frequency Start Date End Date Duration Status Oxycodone HCl 5 MG Orally Once a day 1 tablet at bedtime 24h Oct, 28 days Active Ativan 0.5 MG Orally [...]
--- OUTSIDE RECORDS SUMMARY | 2018-08-05 03:42 | XMS REPORT ---
Author Author HEATHER FINE Organization [employer] Address Unknown Phone Unavailable Care Team Providers Care Aeronautical Drafter Name Role Phone HEATHER FINE CP Unavailable Allergies No Known Allergies Problems Problem Type Condition ICD-9 Code Onset Dates Condition Status Problem Lumbago 724.2 Active Problem Unspecified thrombocytopenia 287.5 Active Problem Anxiety state, unspecified 300.00 Active Problem Abdominal pain, epigastric 789.06 Active Problem Intestinal infection due to other organism, NEC 008.8 Active Problem Unspecified breast screening V76.10 Active Problem Cough 786.2 Active Assessment Back pain 724.5 Active Problem Back pain 724.5 Active Problem Asthma, unspecified, unspecified status 493.90 Active Problem Unspecified disorder of the teeth and supporting structures 525.9 Active Problem Cramp of limb 729.82 Active Problem Allergic rhinitis due to pollen 477.0 Active Problem Urinary tract infection, site not specified 599.0 Active Problem Unspecified hypertrophic and atrophic condition of skin 701.9 Active Problem Dysuria 788.1 Active Problem Nondependent tobacco use disorder 305.1 Active Problem Hemorrhage of gastrointestinal tract, unspecified 578.9 Active Problem Other ascites 789.59 Active Problem Pain in joint, lower leg 719.46 Active Problem Screening for malignant neoplasm of the cervix V76.2 Active Problem Esophageal varices without mention of bleeding 456.1 Active Problem Other screening breast examination V76.19 Active Medications No Known Medications Procedures Procedure Coding System Code Date X-RAY EXAM OF THORACIC SPINE CPT-4 74307 Mar 31, 2015 Results Name Result Date Reference Range Unit Abnormality Flag Xray : Spine, Thoracic 2 views (IN HOUSE) Summary Purpose [employer] Submission
--- OUTSIDE RECORDS SUMMARY | 2018-08-05 03:43 | XMS REPORT ---
Author Author HEATHER FINE [facility] [employer] Address Unknown Phone Unavailable Care Team Providers Care Zoo Keeper Name Role Phone HEATHER FINE CP Unavailable [...] End Date Status Dosage Oxycodone HCl [facility] [address]-67 5 MG Orally Once a day at Mar 29, 2015 Jun 28, 2015 1 tablet Results No Known Results Summary Purpose [employer] Submission
--- OUTSIDE RECORDS SUMMARY | 2018-08-05 03:43 | XMS REPORT ---
Author Author HEATHER FINE [facility] Address [address] [place] [address] Care Team Providers Care Data Compiler Name Role Phone HEATHER FINE Unavailable PROBLEMS Type Condition ICD9-CM Code [id number] Code Onset Dates Condition Status SNOMED Code Problem Asthma J45.909 Active 654803509 Problem History of hepatitis C Z86.19 Active 05843519474466 Problem Secondary esophageal varices with bleeding I85.11 Active 97702163 Problem Unspecified cirrhosis of liver K74.60 Active 203624712 Problem Anxiety F41.9 Active 05404954 Problem Dysthymia F34.1 Active 66909857 Problem Chronic back pain M54.9 Active 213891212 Problem Splenomegaly R16.1 Active 24609281 Problem 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 Active 716471093 Problem Thrombocytosis D47.3 Active 1255577 Problem Lymphocytosis D72.820 Active 92207310 ALLERGIES Unknown Allergies SOCIAL HISTORY No smoking [...]
--- OUTSIDE RECORDS SUMMARY | 2018-08-05 03:43 | XMS REPORT ---
Author Author HEATHER FINE [facility] [employer] Address Unknown Phone Unavailable Care Team Providers Care Supervisor [employer] Name Role Phone HEATHER FINE CP Unavailable Allergies, Adverse Reactions, Alerts Substance Reaction Event Type Sulfamethoxazole hives Drug Allergy Problems Problem Type Condition ICD-9 Code Onset Dates Condition Status Problem Lumbago 724.2 Active Problem Unspecified thrombocytopenia 287.5 Active Problem Anxiety state, unspecified 300.00 Active Problem Abdominal pain, epigastric 789.06 Active Problem Intestinal infection due to other organism, NEC 008.8 Active Problem Unspecified breast screening V76.10 Active Problem Cough 786.2 Active Assessment Cough 786.2 Active Problem Back pain 724.5 Active Problem [...] malignant neoplasm of the cervix V76.2 Active Assessment Back pain 724.5 Active Problem Esophageal varices without mention of bleeding 456.1 Active Problem Other screening breast examination V76.19 Active Medications Medication Code System Code Instructions Start Date End Date Status Dosage Folic Acid [facility] [address]-00 1 MG Once a day October 25, 2015 TAKE ONE TABLET BY MOUTH ONCE DAILY Iron [facility] [address]26 325 (65 Fe) MG Orally Once a day 1 tablet ZyrTEC [facility] [address]-76 10 MG Orally Once a day in AM Mar 29, 2015 October 25, 2015 1 tablet as needed for cough Oxycodone HCl [facility] [address]-50 5 MG Orally Once a day at hs Mar 29, 2015 Apr 28, 2015 1 tablet Aldactone [facility] [address]-67 50 MG Aug 25, 2014 1 Tablet by Oral route 2 times per day Aciphex [facility] [address]-96 20 MG Orally Once a day 1 tablet Nadolol [facility] [address]-28 20 MG Orally Once a day at bedtime 1/2 tablet Singulair [facility] [address]-69 10 MG Orally Once a day at hs Mar 29, 2015 1 tablet in the evening Symbicort [facility] [address]-15 160-4.5 MCG/ACT Inhalation Twice a day 1 sample given Mar 29, 2015 1 puffs Procedures Procedure Coding System Code Date Office Visit, Est Pt., Level 3 CPT-4 01105 Mar 29, 2015 X-RAY EXAM OF THORACIC SPINE CPT-4 72807 Mar 29, 2015 Vital Signs Date/Time: Mar 29, 2015 Temperature 98.0 F Weight 109 lbs Height 61 in BMI 20.59 Index Blood Pressure Diastolic 70 mmHg Blood Pressure Systolic 112 mmHg Cardiac Monitoring Heart Rate 60 bpm Results No Known Results Summary Purpose [employer] Submission
--- OUTSIDE RECORDS SUMMARY | 2018-08-05 03:43 | XMS REPORT ---
Author Author HEATHER FINE Organization [facility] Address [address] [place] [address] Care Team Providers Care Aircraft Dispatcher Name Role Phone HEATHER FINE Unavailable PROBLEMS Type Condition ICD9-CM Code XRB80-RZ Code Onset Dates Condition Status SNOMED Code Problem Unspecified cirrhosis of liver K74.60 Active 174273261 Problem Lymphocytosis D72.820 Active 41861687 Problem Secondary esophageal varices with bleeding I85.11 Active 88389705 Problem Anxiety F41.9 Active 89533339 Problem Asthma J45.909 Active 526623543 Problem Chronic back pain M54.9 Active 606761686 Problem Dysthymia F34.1 Active 31721195 Problem Thrombocytosis D47.3 Active 8447684 Problem Splenomegaly R16.1 Active 70661625 Problem 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 Active 698505366 Problem History of hepatitis C Z86.19 Active [id number] ALLERGIES No Information ENCOUNTERS Encounter Location Date Diagnosis [place] [id number] [place] [address] 92218- 8616 Oct, Chronic back pain M54.9 and Anxiety F41.9 [place] [address] [place] [id number] [place] [address] 14448- 8733 Oct, [place] [address] [place] [id number] [place] [address] 89047- 1637 Sep, Chronic back pain M54.9 ; Anxiety F41.9 ; Pain of left leg M79.605 and Pain in right leg M79.604 [place] [address] [place] [id number] [place] [address] 02293- 5121 Sep, Anxiety F41.9 and Chronic back pain M54.9 [place] [address] 44372- 0871 Sep, [facility] [id number] [place] [address] 70365- 8221 Aug, Anxiety F41.9 [facility] [id number] [place] [address] 28842- 4284 Jul, Anxiety F41.9 [facility] [address] 51567- 7859 Jul, [facility] [address] 10487- 9477 Jul, Viral syndrome B34.9 ; Chronic back pain M54.9 and Dysuria R30.0 [facility] [id number] [place] [address] 38498- 8752 Jun, [facility] [id number] [place] [address] 05934- 4200 Jun, Anxiety F41.9 [facility] [id number] [place] [address] 83186 -9393 Jun, Dysuria R30.0 and Acute cystitis without hematuria N30.00 [facility] [id number] [place] [address] 30619- 6946 Jun, [facility] [id number] [place] [address] 43240- 2050 May, Anxiety F41.9 [facility] [id number] [place] [address] 27850- 0635 May, Anxiety F41.9 [facility] [id number] [place] [address] 57553- 0885 Apr, [facility] [address] [place] [id number] [place] [address] 50124- 1514 Apr, Chronic back pain M54.9 and Anxiety F41.9 [facility] [id number] [place] [address] 13851- 3922 Mar, [facility] [address] [address] 2013 Mar, [facility] [address] [address] 5793 Mar, Well woman exam Z01.419 ; Cervical cancer screening Z12.4 ; Breast cancer screening Z12.31 and Colon cancer screening Z12.11 [facility] [address] [place] [address] 19641- 7874 Mar, Chronic back pain M54.9 and Anxiety F41.9 [facility] [id number] [place] [address] 63202- 8953 Mar, [facility] [id number] [place] [address] 03062- 3310 Feb, Chronic back pain M54.9 and Anxiety F41.9 [facility] [address] [address] [id number] [place] [address] 47765- 0023 Feb, [facility] [id number] [place] [address] 68446- 2184 Feb, [facility] [id number] [place] [address] 83025- 4189 Jan, Chronic back pain M54.9 and Anxiety F41.9 [facility] [address] [address]- 4070 Jan, [facility] [address] [address]- 5093 Jan, [facility] [address] [place] [id number] [address]- 3201 December, Chronic back pain M54.9 and Anxiety F41.9 [facility] [address] [place] [id number] [address]- 9442 Nov, Chronic back pain M54.9 and Anxiety F41.9 [facility] [id number] [address]- 2220 Oct, Chronic back pain M54.9 and Anxiety F41.9 [facility] [address] [address] [id number] [place] [address] 79198- 3966 Oct, Chronic back pain M54.9 [facility] [address] [place] [address] 02097- 8426 Sep, Anxiety F41.9 and Chronic back pain M54.9 [facility] [address] [address] [id number] [place] [address] 45028- 2122 Aug, Anxiety F41.9 and Chronic back pain M54.9 [facility] [address] [address] [id number] [place] [address] 86803- 5696 Aug, [facility] [address] [place] [address] [id number] [place] [address] 75773- 5285 Jul, Chronic back pain M54.9 and Anxiety F41.9 [facility] [address] [address] [id number] [place] [address] 78742- 5802 Jul, Anxiety F41.9 and Chronic back pain M54.9 [facility] [address] [id number] [id number] Jul, [facility] [address] [place] [address] 22988- 1027 Jul, Anxiety F41.9 [facility] [address] [place] [address] 43353- 8363 Jul, Anxiety F41.9 and Dysuria R30.0 [facility] [address] [place] [address] 16682- 2407 Jul, Chronic back pain M54.9 and Anxiety F41.9 [facility] [address] [place] [address] 94739- 0729 Jun, Chronic back pain M54.9 [facility] [address] [address] [id number] [place] [address] 09044- 0046 Jun, Chronic back pain M54.9 [facility] [address] [facility] [id number] [address]- 0671 May, Anxiety F41.9 [facility] [address] [facility] [id number], [place] [address]- 7916 May, Chronic back pain M54.9 [facility] [address] [facility] [id number] [place] [address] 08413- 4746 Apr, [facility] [address] [facility] [id number], [place] [address] 2546 Apr, [facility] [address] [facility] [id number] [place] [address] 35293- 2247 Apr, [facility] [address] [facility] [id number] [place] [address] 80982- 4713 Apr, Chronic back pain M54.9 [facility] [address] [facility] [id number] [place] [address] 62344- 3726 Mar, Chronic back pain M54.9 [facility] [address] [facility] [id number] [place] [address] 92797- 6221 Feb, Grief F43.20 [facility] [address] [facility] [id number], [place] [address]- 7345 Feb, Chronic back pain M54.9 and Anxiety F41.9 [facility] [address] [facility] [id number], [place] [address]- 8980 Feb, Chronic back pain M54.9 [facility] [address] [facility] [id number], [place] [address]- 4548 Jan, Chronic back pain M54.9 [facility] [address] [facility] [id number], [place] [address]- 1216 December, [facility] [address] [facility] [id number], [place] [address]- 7636 December, Grief F43.20 [facility] [address], [place] [address]- 1136 Nov, [facility] [address] [place] [id number] [place] [address] 24956- 9949 28 Oct, 2015 Cervicalgia M54.2 ; Secondary esophageal varices with bleeding I85.11 and Mouth pain K13.79 [facility] [address] [place] [address] [id number] [place] [address] 21387- 9514 Oct, [facility] [address] [place] [address] [id number] [place] [address] 99189- 4654 14 Oct, 2015 [facility] [address] [place] [address] [id number] [place] [address] 21902- 1871 Sep, [facility] [address] [place] [address] [id number] [place] [address] 25630- 7260 Sep, Acute maxillary sinusitis, recurrence not specified J01.00 [facility] [address] [address] [id number] [place] [address] 79659- 7351 Aug, [facility] [address] [address] [id number] [place] [address] 54594- 7185 Aug, [facility] [address] [place] [address] [id number] [place] [address] 62066- 9832 Aug, Dysuria R30.0 and Chronic back pain M54.9 [facility] [address] [place] [address] [id number] [place] [address] 60742- 8875 Jul, [facility] [address] [place] [address] [id number] [place] [address] 50547- 7642 Jul, [facility] [address] [address] [id number] [place] [address] 70965- 3364 Jul, [facility] [address] [place] [address] [id number] [place] [address] 07403- 9257 Jul, Chronic back pain M54.9 [facility] [address] [place] [id number] [place] [address] 33521- 5395 Jul, Dysthymia F34.1 and Chronic back pain M54.9 [facility] [address] [place] [address] [id number] [place] [address] 14987- 1694 Jun, [facility] [address] [address] [id number] [place] [address] 58336- 2236 Jun, [facility] [address] [address] [id number] [place] [address] 90709- 0512 May, [facility] [address] [id number] [place] [address] 98752- 7508 May, [facility] [address] [address] [id number] [place] [address] 54425- 8931 May, [facility] [address] [place] [address] [id number] [place] [address] 23196- 4306 May, Encounter for immunization Z23 [facility] [address] [place] [address] [id number] [place] [address] 83088- 1756 Apr, [facility] [address] [place] [address] [id number] [place] [address] 89129- 2915 Apr, [facility] [address] [place] [address] [id number] [place] [address] 31679- 1578 Mar, [facility] [address] [place] [id number] [place] [address] 15034- 7945 Mar, Back pain 724.5 [facility] [address] [place] [address] [id number] [place] [address] 39972- 5991 Mar, Cough 786.2 and Back pain 724.5 [facility] [address] [place] [id number] [place] [address] 90889- 5514 Mar, [facility] [address] [place] [address] [id number] [place] [address] 54056- 8769 Mar, [facility] [address] [place] [address] [id number] [place] [address] 74682- 2789 December, [facility] [address] [place] [address]- 6484 December, [facility] [place] [facility] [address] [id number] [place] [address]- 1407 Nov, [facility] [place] [facility] [address] [id number] [place] [address]- 0166 Nov, [facility] [place] [facility] [address] [id number] [place] [address]- 7347 Oct, [facility] [place] [facility] [address] [id number] [place] [address]- 7015 Oct, [facility] [place] [facility] [address] [id number] [place] [address]- 4170 Sep, [facility] [place] [facility] [address] [id number] [place] [address]- 8908 Sep, [facility] [place] [facility] [address] [facility] [id number] [place] [address]- 9408 Sep, [facility] [place] [facility] [address] [id number] [place] [address]- 0165 Sep, [facility] [place] [facility] [address] [id number] [place] [address]- 6989 Sep, [facility] [place] [facility] [address] [facility] [id number] [place] [address]- 9929 Sep, [facility] [place] [facility] [address] [facility] [id number] [place] [address]- 8918 Sep, [facility] [place] [facility] [address] [id number] [place] [address]- 1785 Sep, [facility] [place] [facility] [address] [id number] [place] [address]- 5271 Aug, [facility] [place] [facility] [address] [id number] [place] [address]- 5238 Aug, [facility] [place] [facility] [address] [facility] [id number] [place] [address]- 4907 14 Aug, 2014 [facility] [place] [facility] [address] [id number] [place] [address]- 7395 Aug, [facility] [place] [facility] [address] [id number] [place] [address]- 8441 Aug, [facility] [place] [facility] [address] [id number] [place] [address]- 1827 Aug, [facility] [place] [facility] [address] [id number] [place] [address]- 9054 Aug, [facility] [place] [facility] [address] [id number] [place] [address]- 5287 Jul, [facility] [place] [facility] [address] [id number] [place] [address]- 8669 Jul, [facility] [place] [facility] [address] [id number] [place] [address]- 8625 Jul, [facility] [place] [facility] [address] [id number] [place] [address]- 4102 18 Jul, 2014 [facility] [place] [facility] [address] [id number] [place] [address]- 4896 Jul, [facility] [place] [facility] [address] [id number] [place] [address]- 1845 Jul, [facility] [place] [facility] [address] [id number] [place] [address]- 1126 Jul, [facility] [place] [facility] [address] [id number], [place] [address]- 8956 Jul, [facility] [place] [facility] [address] [id number] [place] [address]- 0626 Jun, [facility] [place] [facility] [address] [id number] [place] [address]- 9518 Jun, [facility] [place] [facility] [address] [id number] [place] [address]- 0209 Jun, [facility] [place] [facility] [address] [id number] [place] [address]- 5604 07 Jun, 2013 [facility] [place] [facility] [address] [id number] [place] [address]- 1752 07 Jun, 2014 [facility] [place] [facility] [address] [id number] [place] [address]- 6693 Jun, [facility] [place] [facility] [address] [id number] [place] 6103 Jun, [facility] [place] [facility] [address] [id number] [place] [address]- 4442 28 May, 2014 [facility] [place] [facility] [address] [id number] [place] [address]- 3905 28 May, 2014 [facility] [place] [facility] [address] [id number] [place] [address]- 2718 28 May, 2014 [facility] [place] [facility] [address] [id number] [place] [address]- 5259 28 May, 2014 [facility] [place] [facility] [address] [id number] [place] [address]- 6281 2014 [facility] [place] [facility] [address] [id number] [place] [address]- 2844 2014 [facility] [place] [facility] [address] [id number] [place] [address]- 1849 2014 [facility] [place] [facility] [address] [id number] [place] [address]- 8656 2014 [facility] [place] [facility] [address] [id number] [place] [address]- 4566 13 May, 2014 [facility] [place] [facility] [address] [id number] [place] [address]- 9784 13 May, 2014 [facility] [place] [facility] [address] [id number] [place] [address]- 7212 10 May, 2014 [facility] [place] [facility] [address] [id number] [place] [address]- 2692 May, [facility] [place] [facility] [address] [id number] [place] [address]- 7389 May, [facility] [place] [facility] [address] [id number] [place] [address]- 9364 May, [facility] [place] [facility] [address] [id number] [place] [address]- 6162 Apr, [facility] [place] [facility] [address] [id number] [place] [address]- 7647 Apr, [facility] [place] [facility] [address] [id number] [place] [address]- 4045 Apr, [facility] [place] [facility] [address] [id number] [place] [address]- 6259 Apr, [facility] [place] [facility] [address] [id number] [place] [address]- 3670 Apr, [facility] [place] [facility] [address] [id number] [place] [address]- 6461 Apr, [facility] [place] [facility] [address] [id number] [place] [address]- 6108 Apr, [facility] [place] [facility] [address] [id number] [place] [address]- 3356 Mar, [facility] [place] [facility] [address] [id number] [place] [address]- 3833 Mar, [facility] [place] [facility] [address] [id number] [place] [address]- 0971 Mar, [facility] [place] [facility] [address] [id number] [place] [address]- 7716 Mar, [facility] [place] [facility] [address] [id number] [place] [address]- 2332 Mar, [facility] [place] [facility] [address] [id number] [place] [address]- 7160 Mar, [facility] [place] [facility] [address] [id number] [place] [address]- 2546 Feb, [facility] [place] [facility] [address] [id number] [place] 8143 Feb, [facility] [place] [facility] [address] [id number] [place] [address]- 4982 Feb, [facility] [place] [facility] [address] [id number] [place] [address]- 7926 Feb, [facility] [place] [facility] [address] [id number] [place] 2004 Feb, [facility] [place] [facility] [address] [id number] [place] [address]- 3908 Feb, [facility] [place] [facility] [address] [id number] [place] [address]- 2780 Feb, [facility] [place] [facility] [address] [id number] [place] [address]- 9020 Feb, [facility] [place] [facility] [address] [id number] [place] [address]- 8276 Jan, [facility] [place] [facility] [address] [id number] [place] [address]- 3908 Jan, [facility] [place] [facility] [address] [id number] [place] [address]- 8961 December, [facility] [place] [facility] [address] [id number] [place] [address]- 3531 December, [facility] [place] [facility] [address] [id number] [place] [address]- 5103 December, [facility] [place] [facility] [address] [id number] [place] 8728 December, [facility] [place] [facility] [address] [id number] [place] 7882 December, [facility] [place] [facility] [address] [id number] [place] 4896 December, [facility] [place] [facility] [address] [id number] [place] [address]- 1931 December, [facility] [address] [id number] [place] [address]- 1403 December, [facility] [address] [id number] [place] [address]- 6693 December, [facility] [address] [id number] [place] [address]- 6110 December, [facility] [address] [id number] [place] [address]- 2592 December, [facility] [address] [id number] [place] [address] December, [facility] [address] [id number] [place] [address] Nov, [facility] [address] [id number] [place] [address] Nov, [facility] [address] [id number] [place] [address] Nov, [facility] [address] [id number] [place] [address] Nov, [facility] [address] [id number] [place] [address] Nov, [facility] [place] [facility] [address] [id number] [place] [address] Nov, [facility] [place] [facility] [address] [id number] [place] [address] Nov, [facility] [place] [facility] [address] [id number] [place] [address] Nov, [facility] [place] [facility] [address] [id number] [place] [address] Nov, [facility] [place] [facility] [address] [id number] [place] [address] Nov, [facility] [place] [facility] [address] [id number] [place] [address] Nov, [facility] [place] [facility] [address] [id number] [place] [address] Nov, [facility] [place] [facility] [address] [id number] [place] [address] Nov, [facility] [place] [facility] [address] [id number] [place] [address] Oct, [facility] [place] [facility] [address] [id number] [place] [address] Oct, [facility] [place] [facility] [address] [id number] [place] [address] Sep, [facility] [place] [facility] [address] [id number] [place] [address] Sep, [facility] [place] [facility] [address] [id number] [place] [address] Sep, [facility] [place] [facility] [address] [id number] [place] [address] Sep, [facility] [place] [facility] [address] [facility] [id number] [place] [address] Sep, [facility] [place] [facility] [address] [facility] [id number] [place] [address]- [address] Sep, [facility] [place] [facility] [address] [id number] [place] [address] Sep, [facility] [place] [facility] [address] [id number] [place] [address] 18 Sep, 2013 [facility] [place] [facility] [address] [id number] [place] [address] Sep, [facility] [place] [facility] [address] [facility] [id number] [place] [address] Sep, [facility] [place] [facility] [address] [id number] [place] [address]- [address] 05 Sep, 2013 [facility] [place] [facility] [address] [id number] [place] [address] Sep, [facility] [place] [facility] [address] [id number] [place] [address] Aug, [facility] [place] [facility] [address] [id number] [place] [address] Aug, [facility] [place] [facility] [address] [id number] [place] [address] Aug, [facility] [place] [facility] [address] [id number] [place] [address] Aug, [facility] [place] [facility] [address] [id number] [place] [address] Aug, [facility] [place] [facility] [address] [id number] [place] [address] Aug, [facility] [place] [facility] [address] [id number] [place] [address] Aug, [facility] [place] [facility] [address] [id number] [place] [address] Aug, [facility] [place] [facility] [address] [id number] [place] [address] Aug, [facility] [place] [facility] [address] [id number] [place] [address] Aug, [facility] [place] [facility] [address] [id number] [place] [address] Aug, [facility] [place] [facility] [address] [id number] [place] [address] Aug, [facility] [place] [facility] [address] [id number] [place] [address] Aug, [facility] [place] [facility] [address] [id number] [place] [address] Aug, [facility] [address] [id number] [place] [address] Aug, [facility] [place] [facility] [address] [id number] [place] [address] Aug, [facility] [place] [facility] [address] [id number] [place] [address] Aug, [facility] [place] [facility] [address] [id number] [place] [address] Aug, [facility] [place] [facility] [address] [id number] [place] [address]- [address] Aug, [facility] [place] [facility] [address] [id number] [place] [address]- [address] Aug, [facility] [place] [facility] [address] [id number] [place] [address]- [address] Aug, [facility] [place] [facility] [address] [id number] [place] [address] Aug, [facility] [place] [facility] [address] [id number] [place] [address] Aug, [facility] [place] [facility] [address] [id number] [place] [address] Jul, [facility] [place] [facility] [address] [id number], [place] [address] Jul, [facility] [place] [facility] [address] [id number], [place] [address] Jul, [facility] [place] [facility] [address] [id number] [place] [address] 2358 Jul, [facility] [place] [facility] [address] [id number], [place] [address] Jul, [facility] [place] [facility] [address] [id number], [place] [address] 1586 Jul, [facility] [place] [facility] [address] [id number] [place] [address] 6424 Jun, [facility] [place] [facility] [address] [id number] [place] [address] 3170 Jun, [facility] [place] [facility] [address] [id number] [place] [address]- 48[address] Jun, [facility] [place] [facility] [address] [id number] [place] [address]- [address] Jun, [facility] [place] [facility] [address] [id number] [place] [address]- 8287 Jun, [facility] [place] [facility] [address] [id number] [place] [address]- 5660 Jun, [facility] [place] [facility] [address] [id number] [place] [address]- 7376 Jun, [facility] [place] [facility] [address] [id number] [place] [address]- 3879 Jun, [facility] [place] [facility] [address] [id number] [place] [address]- 4980 Jun, [facility] [place] [facility] [address] [id number] [place] [address]- 6545 Jun, [facility] [place] [facility] [address] [facility] [id number] [place] [address]- 1754 May, [facility] [place] [facility] [address] [id number] [place] [address]- 4049 May, [facility] [place] [facility] [address] [id number], [place] [address] 4[address] May, [facility] [place] [facility] [address] [id number] [place] [address]- 5538 May, [facility] [place] [facility] [address] [facility] [id number] [place] [address]- 1[address] May, [facility] [place] [facility] [address] [id number], [place] [address] 3[address] May, [facility] [place] [facility] [address] [id number] [place] [address]- 0515 May, [facility] [place] [facility] [address] [id number] [place] [address]- 4894 May, [facility] [place] [facility] [address] [id number] [place] [address]- 4360 May, [facility] [place] [facility] [address] [id number] [place] [address]- 0178 May, [facility] [place] [facility] [address] [id number] [place] [address]- 8411 17 May, 2013 [facility] [place] [facility] [address] [id number] [place] [address]- 5789 May, [facility] [place] [facility] [address] [id number] [place] [address]- 3858 May, [facility] [place] [facility] [address] [id number] [place] [address]- 2535 May, [facility] [place] [facility] [address] [id number] [place] [address]- 7701 May, [facility] [place] [facility] [address] [id number] [place] [address]- 0656 24 Apr, 2013 [facility] [place] [facility] [address] [id number] [place] [address]- 4420 Apr, [facility] [place] [facility] [address] [id number] [place] [address]- 1443 Apr, [facility] [place] [facility] [address] [id number] [place] [address]- 9434 Mar, [facility] [place] [facility] [address] [id number] [place] [address]- 8665 Mar, [facility] [place] [facility] [address] [id number] [place] [address]- 6624 Mar, [facility] [place] [facility] [address] [id number] [place] [address]- 2546 Mar, [facility] [place] [facility] [address] [id number] [place] [address]- 2643 Mar, [facility] [place] [facility] [address] [id number] [place] [address]- 6305 Mar, [facility] [place] [facility] [address] [id number] [place] [address]- 8188 Feb, [facility] [place] [facility] [address] [id number] [place] [address]- 4662 Feb, [facility] [place] [facility] [address] [id number] [place] [address] 1864 Feb, [facility] [place] [facility] [address] [id number] [place] [address]- 5536 Feb, [facility] [place] [facility] [address] [id number] [place] [address]- 6251 Feb, [facility] [place] [facility] [address] [id number] [place] [address]- 0085 Feb, [facility] [place] [facility] [address] [id number] [place] [address]- 7853 Feb, [facility] [place] [facility] [address] [id number] [place] [address]- 5428 Feb, [facility] [place] [facility] [address] [id number] [place] [address]- 1060 Feb, [facility] [place] [facility] [address] [id number] [place] [address]- 5469 Feb, [facility] [place] [facility] [address] [id number] [place] [address]- 9263 Jan, [facility] [place] [facility] [address] [id number] [place] [address]- 3613 Jan, [facility] [place] [facility] [address] [id number] [place] [address]- 8996 Jan, [facility] [place] [facility] [address] [id number] [place] [address]- 8361 Jan, [facility] [address] [id number] [place] [address]- 6716 December, [facility] [address] [id number] [place] [address]- 3827 December, [facility] [address] [id number] [place] [address] 1977 December, [facility] [address] [id number] [place] [address]- 3444 Nov, [facility] [address] [id number] [place] [address]- 6422 Nov, [facility] [address] [id number] [place] [address]- 1531 Nov, [facility] [address] [id number] [place] [address]- 9464 Nov, [facility] [address] [id number] [place] [address]- 4216 Nov, [facility] [address] [id number] [place] [address]- 3886 Nov, [facility] [address] [id number] [place] [address]- 0659 Oct, [facility] [address] [id number] [place] [address]- 9961 Oct, [facility] [address] [id number] [place] [address]- 4685 Oct, [facility] [place] [facility] [address] [id number] [place] [address]- 1726 Sep, [facility] [address] [id number] [place] [address]- 2546 Sep, [facility] [address] [id number] [place] [address]- 7480 Sep, [facility] [place] [facility] [address] [id number] [place] [address]- 7142 Aug, [facility] [place] [facility] [address] [id number] [place] [address]- 2815 Aug, [facility] [place] [facility] [address] [id number] [place] [address]- 4608 Aug, [facility] [place] [facility] [address] [id number] [place] [address]- 7750 Aug, [facility] [place] [facility] [address] [id number] [place] [address]- 9160 Jul, [facility] [place] [facility] [address] [id number] [place] [address]- 9421 Jul, [facility] [place] [facility] [address] [id number] [place] [address]- 2860 Jul, [facility] [place] [facility] [address] [id number] [place] [address]- 8629 Jul, [facility] [place] [facility] [address] [id number] [place] [address]- 8637 Jun, [facility] [place] [facility] [address] [id number] [place] [address]- 5719 Jun, [facility] [place] [facility] [address] [id number], [place] [address]- 4681 Jun, [facility] [place] [facility] [address] [id number], [place] [address]- 5346 Jun, [facility] [place] [facility] [address] [id number] [place] [address]- 6148 Jun, [facility] [place] [facility] [address] [id number], [place] [address]- 9896 Jun, [facility] [place] [facility] [address] [id number] [place] [address]- 1503 Jun, [facility] [place] [facility] [address] [id number] [place] [address]- 6341 02 Jun, 2012 [facility] [place] [facility] [address] [id number] [place] [address]- 6390 30 May, 2012 [facility] [place] [facility] [address] [id number] [place] [address]- 6401 30 May, 2012 [facility] [place] [facility] [address] [id number] [place] [address]- 6296 18 May, 2012 [facility] [place] [facility] [address] [id number] [place] [address]- 9045 18 May, 2012 [facility] [place] [facility] [address] [id number] [place] [address]- 3957 2012 [facility] [place] [facility] [address] [id number] [place] [address]- 1327 13 May, 2012 [facility] [place] [facility] [address] [id number] [place] [address]- 7946 11 May, 2012 [facility] [place] [facility] [address] [id number] [place] [address]- 7335 11 May, 2012 [facility] [place] [facility] [address] [id number] [place] [address]- 1577 10 May, 2012 [facility] [place] [facility] [address] [facility] [id number] [place] [address]- 6639 08 May, 2012 [facility] [place] [facility] [address] [id number] [place] [address]- 2308 24 Sep, 2011 [facility] [place] [facility] [address] [id number] [place] [address]- 2548 19 Sep, 2011 [facility] [place] [facility] [address] [id number] [place] [address]- 4428 18 Sep, 2011 [facility] [place] [facility] [address] [id number] [place] [address]- 6636 17 Sep, 2011 [facility] [place] [facility] [address] [id number] [place] [address]- 3055 16 Apr, 2012 [facility] [place] [facility] [address] [id number] [place] [address]- 6625 Apr, [facility] [place] [facility] [address] [id number] [place] [address]- 8877 Mar, [facility] [place] [facility] [address] [id number] [place] [address]- 9079 Mar, [facility] [place] [facility] [address] [id number] [place] [address]- 3645 Mar, [facility] [place] [facility] [address] [id number] [place] [address]- 9568 Mar, [facility] [place] [facility] [address] [id number] [place] [address]- 9760 Mar, [facility] [place] [facility] [address] [id number] [place] [address]- 4565 Mar, [facility] [place] [facility] [address] [id number] [place] [address]- 7850 Feb, [facility] [place] [facility] [address] [id number] [place] [address]- 8318 Feb, [facility] [place] [facility] [address] [id number] [place] [address]- 9716 Feb, [facility] [place] [facility] [address] [id number] [place] [address]- 2982 Feb, [facility] [place] [facility] [address] [id number] [place] [address]- 6699 Feb, [facility] [place] [facility] [address] [id number] [place] [address]- 2425 Feb, [facility] [place] [facility] [address] [id number] [place] [address]- 0658 Feb, [facility] [place] [facility] [address] [id number] [place] [address]- 6169 Feb, [facility] [place] [facility] [address] [id number] [place] [address]- 3061 Feb, [facility] [place] [facility] [address] [id number] [place] [address]- 5422 Jan, [facility] [place] [facility] [address] [id number] [place] Jan, [facility] [place] [facility] [address] [id number] [place] [address]- 7571 Jan, [facility] [place] [facility] [address] [id number] [place] [address]- 7592 Jan, [facility] [place] [facility] [address] [id number] [place] [address]- 4795 Jan, [facility] [place] [facility] [address] [id number] [place] [address]- 9952 Jan, [facility] [place] [facility] [address] [id number] [place] [address]- 4561 Jan, [facility] [place] [facility] [address] [id number] [place] [address]- 2369 Jan, [facility] [place] [facility] [address] [id number] [place] [address]- 0269 Jan, [facility] [place] [facility] [address] [id number] [place] [address]- 0323 December, [facility] [place] [facility] [address] [id number] [place] [address]- 9104 December, [facility] [place] [facility] [address] [id number] [place] [address]- 9730 December, [facility] [place] [facility] [address] [id number] [place] [address]- 1173 December, [facility] [place] [facility] [address] [id number] [place] [address]- 4652 December, [facility] [place] [facility] [address] [id number] [place] [address]- 5397 December, [facility] [place] [facility] [address] [id number] [place] [address]- 6541 December, [facility] [address] [id number] [place] [address]- 3341 December, [facility] [address] [id number] [place] [address]- 6834 December, [facility] [address] [id number] [place] [address]- 2411 December, [facility] [address] [id number] [place] [address]- 1902 Nov, [facility] [address] [id number] [place] [address]- 2470 Nov, [facility] [address] [id number] [place] [address]- 9073 Nov, [facility] [address] [id number] [place] [address]- 1155 Nov, [facility] [address] [id number] [place] [address]- 5566 16 Nov, 2011 [facility] [address] [id number] [place] [address]- 2625 Nov, [facility] [address] [id number] [place] [address]- 2742 Nov, [facility] [address] [id number] [place] [address]- 8735 Nov, [facility] [address] [id number] [place] [address]- 8036 Nov, [facility] [address] [id number] [place] 9408 Nov, [facility] [address] [id number] [id number] 7440 Oct, [facility] [address] [id number] [place] [address]- 4478 Oct, [facility] [place] [facility] [address] [id number] [place] [address]- 1628 23 Oct, 2011 [facility] [place] [facility] [address] [id number] [place] [address]- 7726 23 Oct, 2011 [facility] [place] [facility] [address] [id number] [place] [address]- 4226 21 Oct, 2011 [facility] [place] [facility] [address] [id number] [place] [address]- 0156 20 Oct, 2011 [facility] [place] [facility] [address] [id number] [place] [address]- 6996 19 Oct, 2011 [facility] [place] [facility] [address] [id number] [place] [address]- 5966 19 Oct, 2011 [facility] [place] [facility] [address] [id number] [place] [address]- 2516 16 Oct, 2011 [facility] [place] [facility] [address] [id number] [place] [address]- 8536 14 Oct, 2011 [facility] [place] [facility] [address] [id number] [place] [address]- 9481 14 Oct, 2011 [facility] [place] [facility] [address] [id number] [place] [address]- 2163 09 Oct, 2011 [facility] [place] [facility] [address] [id number] [place] [address]- 0896 08 Oct, 2011 [facility] [place] [facility] [address] [id number] [place] [address]- 3776 06 Oct, 2011 [facility] [place] [facility] [address] [id number] [place] [address]- 8586 02 Oct, 2011 [facility] [place] [facility] [address] [id number] [place] [address]- 2626 28 Sep, 2011 [facility] [place] [facility] [address] [id number] [place] [address]- 0456 24 Sep, 2011 [facility] [place] [facility] [address] [id number] [place] [address]- 4666 20 Sep, 2011 [facility] [place] [facility] [address] [id number] [place] [address] 2546 17 Sep, 2011 [facility] [place] [facility] [address] [id number] [place] [address] 2546 16 Sep, 2011 [facility] [place] [facility] [address] [id number] [place] [address] 2546 14 Sep, 2011 [facility] [place] [facility] [address] [id number] [place] [address] 2546 13 Sep, 2011 [facility] [place] [facility] [address] [id number] [place] [address]- 6376 10 Sep, 2011 [facility] [place] [facility] [address] [id number] [place] [address] 2546 06 Sep, 2011 [facility] [place] [facility] [address] [id number] [place] [address] 2546 03 Sep, 2011 [facility] [place] [facility] [address] [id number] [place] [address]- 5786 Sep, [facility] [place] [facility] [address] [id number] [place] [address]- 1936 Aug, [facility] [place] [facility] [address] [id number] [place] [address]- 8126 Aug, [facility] [place] [facility] [address] [id number] [place] [address] 2546 Aug, [facility] [place] [facility] [address] [id number] [place] [address] 2546 Aug, [facility] [place] [facility] [address] [id number] [place] [address] 2546 Aug, [facility] [place] [facility] [address] [id number] [place] [address] 2546 Aug, [facility] [place] [facility] [address] [id number] [place] [address]- 9731 Aug, [facility] [address] [id number] [place] [address]- 6881 17 Aug, 2011 [facility] [place] [facility] [address] [id number] [place] [address]- 0381 16 Aug, 2011 [facility] [place] [facility] [address] [id number] [place] [address]- 5591 13 Aug, 2011 [facility] [place] [facility] [address] [id number] [place] [address]- 6768 Aug, [facility] [address] [id number] [place] [address]- 1563 Aug, [facility] [place] [facility] [address] [id number] [place] [address]- 4814 Aug, [facility] [address] [id number] [place] [address]- 5629 Aug, [facility] [place] [facility] [address] [id number] [place] [address]- 8246 Aug, [facility] [place] [facility] [address] [id number] [place] [address]- 7937 Aug, [facility] [place] [facility] [address] [id number] [place] [address] Aug, [facility] [place] [facility] [address] [id number] [place] [address] 30 Jul, 2011 [facility] [place] [facility] [address] [id number] [place] [address] 28 Jul, 2011 [facility] [place] [facility] [address] [id number] [place] [address] Jul, [facility] [place] [facility] [address] [id number] [place] [address] 23 Jul, 2011 [facility] [place] [facility] [address] [id number] [place] [address] 19 Jul, 2011 [facility] [place] [facility] [address] [id number] [address] Jul, [facility] [id number] [address] Jul, [facility] [address] [id number], [place] [address] Jul, [facility] [id number], [place] [address] Jul, [facility] [id number], [place] [address] Jul, [facility] [id number] [place] [address] Jul, [facility] [id number], [place] [address] Jun, [facility] [id number], [place] [address] Jun, [facility] [address] [id number], [place] [address] Jun, IMMUNIZATIONS No Known Immunizations SOCIAL HISTORY Never Assessed REASON FOR VISIT Medication question PLAN OF CARE VITAL SIGNS MEDICATIONS Unknown [...]
--- OUTSIDE RECORDS SUMMARY | 2018-08-05 03:43 | XMS REPORT ---
Author Author HEATHER FINE Organization [facility] [place] Address [address] [place] [address] Care Team Providers Care Residential Treatment Specialist Name Role Phone HEATHER FINE Unavailable PROBLEMS Type Condition ICD9-CM Code YNK11-AL Code Onset Dates Condition Status SNOMED Code Problem Asthma J45.909 Active 905887791 Problem History of hepatitis C Z86.19 Active 84858133151529 Problem Secondary esophageal varices with bleeding I85.11 Active 19555805 Problem Unspecified cirrhosis of liver K74.60 Active 027825804 Problem Anxiety F41.9 Active 14374149 Problem Dysthymia F34.1 Active 13621196 Problem Chronic back pain M54.9 Active 858839364 Problem Splenomegaly R16.1 Active 48893823 Problem 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 Active 983410636 Problem Thrombocytosis D47.3 Active 2857024 Problem Lymphocytosis D72.820 Active 78707774 ALLERGIES Unknown Allergies SOCIAL HISTORY No smoking Hx information available PLAN OF CARE VITAL SIGNS MEDICATIONS Medication Instructions Dosage Frequency Start Date End Date Duration Status Aldactone 50 MG 1 Tablet by Oral route 24h 90 Active Folic Acid 1 MG TAKE ONE TABLET BY MOUTH ONCE DAILY 90 Active Aciphex 20 mg Orally Once a day 1 tablet 24h Active Oxycodone HCl 5 MG Orally Once a day 1 tablet at bedtime 24h Mar, 28 days Active Nadolol 40 mg Orally Once a day 0.5 tablet 24h Active Ativan 0.5 MG Orally Once a day 1 tablet as needed 24h December, 28 days Active RESULTS Name Result Date Reference Range [employer] 2016-08-09 PROCEDURES Procedure Date Ordered Related Diagnosis Body Site No Charge Aug 09, 2016 IMMUNIZATIONS No Known Immunizations
--- OUTSIDE RECORDS SUMMARY | 2018-08-05 03:52 | XMS REPORT | Continuity of Care Document ---
Author Author [facility] Address Unknown Phone Unavailable Allergies Active Description Code Type Severity Reaction Onset Reported/Identified Relationship to Patient Clinical Status Yes Sulfa (Sulfonamide Antibiotics) Drug Allergy N/A N/A 10/31/2010 Yes sulfa drug Drug Allergy 10/31/2010 Yes Sulfa (Sulfonamide Antibiotics) [id number] Drug Allergy Moderate HIVES Medications There is no data. Problems Date Dx Coded Attending Type Code Diagnosis Diagnosed By 01/16/2010 Ot 724.1 01/21/2010 Ot 724.5 04/19/2010 Ot 845.00 04/19/2010 Ot 959.7 04/19/2010 Ot E000.8 04/19/2010 Ot E849.0 04/19/2010 Ot E927.8 10/31/2010 HEATHER FINE APRN S 285.9 ANEMIA UNSPECIFIED 10/31/2010 HEATHER FINE APRN 780.79 fatigue 10/31/2010 HEATHER FINE APRN 785.1 PALPITATIONS 10/31/2010 285.9 ANEMIA UNSPECIFIED 10/31/2010 780.79 fatigue 10/31/2010 785.1 PALPITATIONS 10/31/2010 MIROSLAVA HILL MD 285.9 ANEMIA UNSPECIFIED 10/31/2010 MIROSLAVA HILL MD 780.79 fatigue 10/31/2010 MIROSLAVA HILL MD 785.1 PALPITATIONS 10/31/2010 TRAM LAGOS APRN 285.9 ANEMIA UNSPECIFIED 10/31/2010 TRAM LAGOS APRN 780.79 fatigue 10/31/2010 TRAM LAGOS APRN A 785.1 PALPITATIONS 10/31/2010 285.9 ANEMIA UNSPECIFIED 10/31/2010 780.79 fatigue 10/31/2010 785.1 PALPITATIONS 10/31/2010 285.9 ANEMIA UNSPECIFIED 10/31/2010 780.79 fatigue 10/31/2010 785.1 PALPITATIONS 10/31/2010 AGUILAR DO, MIKE K 285.9 ANEMIA UNSPECIFIED 10/31/2010 AGUILAR DO, MIKE K 780.79 fatigue 10/31/2010 AGUILAR DO, MIKE K 785.1 PALPITATIONS 10/31/2010 AGUILAR DO, MIKE K 285.9 ANEMIA UNSPECIFIED 10/31/2010 AGUILAR DO, MIKE K 780.79 fatigue 10/31/2010 AGUILAR DO, MIKE K 785.1 PALPITATIONS 10/31/2010 RODY CERTIFIED NURSES AIDE, HEATHER S 285.9 ANEMIA UNSPECIFIED 10/31/2010 RODY CERTIFIED NURSES AIDE, HEATHER S 780.79 fatigue 10/31/2010 RODY CERTIFIED NURSES AIDE, HEATHER S 785.1 PALPITATIONS 10/31/2010 WHITE DDS, MERCEDES D 285.9 ANEMIA UNSPECIFIED 10/31/2010 WHITE DDS, MERCEDES D 780.79 fatigue 10/31/2010 WHITE DDS, MERCEDES D 785.1 PALPITATIONS 10/31/2010 RODY CERTIFIED NURSES AIDE, HEATHER S 285.9 ANEMIA UNSPECIFIED 10/31/2010 RODY CERTIFIED NURSES AIDE, HEATHER S 780.79 fatigue 10/31/2010 RODY CERTIFIED NURSES AIDE, HEATHER S 785.1 PALPITATIONS 10/31/2010 RODY CERTIFIED NURSES AIDE, HEATHER S 285.9 ANEMIA UNSPECIFIED 10/31/2010 RODY CERTIFIED NURSES AIDE, HEATHER S 780.79 fatigue 10/31/2010 RODY CERTIFIED NURSES AIDE, HEATHER S 785.1 PALPITATIONS 10/31/2010 RODY CERTIFIED NURSES AIDE, HEATHER S 285.9 ANEMIA UNSPECIFIED 10/31/2010 RODY CERTIFIED NURSES AIDE, HEATHER S 780.79 fatigue 10/31/2010 RODY CERTIFIED NURSES AIDE, HEATHER S 785.1 PALPITATIONS 10/31/2010 RODY CERTIFIED NURSES AIDE, HEATHER S 285.9 ANEMIA UNSPECIFIED 10/31/2010 RODY CERTIFIED NURSES AIDE, HEATHER S 780.79 fatigue 10/31/2010 RODY CERTIFIED NURSES AIDE, HEATHER S 785.1 PALPITATIONS 10/31/2010 RODY CERTIFIED NURSES AIDE, HEATHER S 285.9 ANEMIA UNSPECIFIED 10/31/2010 RODY CERTIFIED NURSES AIDE, HEATHER S 780.79 fatigue 10/31/2010 RODY CERTIFIED NURSES AIDE, HEATHER S 785.1 PALPITATIONS 10/31/2010 RODY CERTIFIED NURSES AIDE, HEATHER S 285.9 ANEMIA UNSPECIFIED 10/31/2010 RODY CERTIFIED NURSES AIDE, HEATHER S 780.79 fatigue 10/31/2010 RODY CERTIFIED NURSES AIDE, HEATHER S 785.1 PALPITATIONS 10/31/2010 DEMOND CERTIFIED NURSES AIDE, TRAM A 285.9 ANEMIA UNSPECIFIED 10/31/2010 DEMOND CERTIFIED NURSES AIDE, TRAM A 780.79 fatigue 10/31/2010 DEMOND CERTIFIED NURSES AIDE, TRAM A 785.1 PALPITATIONS 10/31/2010 AGUILAR DO, MIKE K 285.9 ANEMIA UNSPECIFIED 10/31/2010 AGUILAR DO, MIKE K 780.79 fatigue 10/31/2010 AGUILAR DO, MIKE K 785.1 PALPITATIONS 10/31/2010 RODY CERTIFIED NURSES AIDE, HEATHER S 285.9 ANEMIA UNSPECIFIED 10/31/2010 RODY CERTIFIED NURSES AIDE, HEATHER S 780.79 fatigue 10/31/2010 RODY CERTIFIED NURSES AIDE, HEATHER S 785.1 PALPITATIONS 10/31/2010 RODY CERTIFIED NURSES AIDE, HEATHER S 285.9 ANEMIA UNSPECIFIED 10/31/2010 RODY CERTIFIED NURSES AIDE, HEATHER S 780.79 fatigue 10/31/2010 RODY CERTIFIED NURSES AIDE, HEATHER S 785.1 PALPITATIONS 10/31/2010 RODY CERTIFIED NURSES AIDE, HEATHER S 285.9 ANEMIA UNSPECIFIED 10/31/2010 RODY CERTIFIED NURSES AIDE, HEATHER S 780.79 fatigue 10/31/2010 RODY CERTIFIED NURSES AIDE, HEATHER S 785.1 PALPITATIONS 10/31/2010 RODY CERTIFIED NURSES AIDE, HEATHER S 285.9 ANEMIA UNSPECIFIED 10/31/2010 RODY CERTIFIED NURSES AIDE, HEATHER S 780.79 fatigue 10/31/2010 RODY CERTIFIED NURSES AIDE, HEATHER S 785.1 PALPITATIONS 10/31/2010 RODY CERTIFIED NURSES AIDE, HEATHER S 285.9 ANEMIA UNSPECIFIED 10/31/2010 RODY CERTIFIED NURSES AIDE, HEATHER S 780.79 FATIGUE 10/31/2010 RODY CERTIFIED NURSES AIDE, HEATHER S 785.1 PALPITATIONS 11/03/2010 Ot 263.9 PROTEIN-ORTIZ MALNUTR NOS 11/03/2010 Ot 285.9 ANEMIA NOS 11/03/2010 Ot 287.5 THROMBOCYTOPENIA NOS 11/03/2010 Ot 300.4 DYSTHYMIC DISORDER 11/03/2010 Ot 305.1 TOBACCO USE DISORDER 11/03/2010 Ot 456.21 ESOPH VARICE OTH DIS NOS 11/03/2010 Ot 535.40 OTH SPECIFIED GASTRITIS,W/O MENTION OF H 11/03/2010 Ot 564.00 UNSPEC CONSTIPATION 11/03/2010 Ot 571.5 CIRRHOSIS OF LIVER NOS 11/03/2010 Ot 789.59 OTHER ASCITES 11/03/2010 Ot V12.09 PERSONAL HISTORY OTH SPEC INFECT ARLYN 11/08/2010 HEATHER FINE APRN S 571.5 CIRRHOSIS OF LIVER WITHOUT ALCOHOL 11/08/2010 571.5 CIRRHOSIS OF LIVER WITHOUT ALCOHOL 11/08/2010 LIZ HOOKS, MIROSLAVA 571.5 CIRRHOSIS OF LIVER WITHOUT ALCOHOL 11/08/2010 TRAM LAGOS APRN 571.5 CIRRHOSIS OF LIVER WITHOUT ALCOHOL 11/08/2010 571.5 CIRRHOSIS OF LIVER WITHOUT ALCOHOL 11/08/2010 571.5 CIRRHOSIS OF LIVER WITHOUT ALCOHOL 11/08/2010 AGUILAR DO, MIKE K 571.5 CIRRHOSIS OF LIVER WITHOUT ALCOHOL 11/08/2010 AGUILAR DO, MIKE K 571.5 CIRRHOSIS OF LIVER WITHOUT ALCOHOL 11/08/2010 CARINA FINE APRNA S 571.5 CIRRHOSIS OF LIVER WITHOUT ALCOHOL 11/08/2010 WHITE DDS, MERCEDES D 571.5 CIRRHOSIS OF LIVER WITHOUT ALCOHOL 11/08/2010 RUSLAN FINE APRNNDA S 571.5 CIRRHOSIS OF LIVER WITHOUT ALCOHOL 11/08/2010 RUSLAN FINE APRNNDA S 571.5 CIRRHOSIS OF LIVER WITHOUT ALCOHOL 11/08/2010 RUSLAN FINE APRNNDA S 571.5 CIRRHOSIS OF LIVER WITHOUT ALCOHOL 11/08/2010 RUSLAN FINE APRNNDA S 571.5 CIRRHOSIS OF LIVER WITHOUT ALCOHOL 11/08/2010 RUSLAN FINE APRNNDA S 571.5 CIRRHOSIS OF LIVER WITHOUT ALCOHOL 11/08/2010 RUSLAN FINE APRNNDA S 571.5 CIRRHOSIS OF LIVER WITHOUT ALCOHOL 11/08/2010 DEMOND CERTIFIED NURSES AIDE, TRAM A 571.5 CIRRHOSIS OF LIVER WITHOUT ALCOHOL 11/08/2010 AGUILAR DO, MIKE K 571.5 CIRRHOSIS OF LIVER WITHOUT ALCOHOL 11/08/2010 RODY CERTIFIED NURSES AIDE, HEATHER S 571.5 CIRRHOSIS OF LIVER WITHOUT ALCOHOL 11/08/2010 RODY CERTIFIED NURSES AIDE, HEATHER S 571.5 CIRRHOSIS OF LIVER WITHOUT ALCOHOL 11/08/2010 RODY CERTIFIED NURSES AIDE, HEATHER S 571.5 CIRRHOSIS OF LIVER WITHOUT ALCOHOL 11/08/2010 RODY CERTIFIED NURSES AIDE, HEATHER S 571.5 CIRRHOSIS OF LIVER WITHOUT ALCOHOL 11/08/2010 RODY CERTIFIED NURSES AIDE, HEATHER S 571.5 CIRRHOSIS OF LIVER WITHOUT ALCOHOL 11/11/2010 RODY CERTIFIED NURSES AIDE, HEATHER S 070.54 HEPATITIS C CHRONIC 11/11/2010 070.54 HEPATITIS C CHRONIC 11/11/2010 LIZ HOOKS, MIROSLAVA 070.54 HEPATITIS C CHRONIC 11/11/2010 DEMOND SAVAGE, TRAM A 070.54 HEPATITIS C CHRONIC 11/11/2010 070.54 HEPATITIS C CHRONIC 11/11/2010 070.54 HEPATITIS C CHRONIC 11/11/2010 AGUILAR DO MIKE K 070.54 HEPATITIS C CHRONIC 11/11/2010 AGUILAR DO MIKE K 070.54 HEPATITIS C CHRONIC 11/11/2010 RODY BOYKINN, HEATHER S 070.54 HEPATITIS C CHRONIC 11/11/2010 MERCEDES JENNINGS DDS 070.54 HEPATITIS C CHRONIC 11/11/2010 RODY CERTIFIED NURSES AIDE, HEATHER S 070.54 HEPATITIS C CHRONIC 11/11/2010 RODY CERTIFIED NURSES AIDE, HEATHER S 070.54 HEPATITIS C CHRONIC 11/11/2010 RODY CERTIFIED NURSES AIDE, HEATHER S 070.54 HEPATITIS C CHRONIC 11/11/2010 RODY CERTIFIED NURSES AIDE, HEATHER S 070.54 HEPATITIS C CHRONIC 11/11/2010 RODY CERTIFIED NURSES AIDE, HEATHER S 070.54 HEPATITIS C CHRONIC 11/11/2010 RODY CERTIFIED NURSES AIDE, HEATHER S 070.54 HEPATITIS C CHRONIC 11/11/2010 DEMOND SAVAGE, TRAM A 070.54 HEPATITIS C CHRONIC 11/11/2010 AGUILAR DO MIKE K 070.54 HEPATITIS C CHRONIC 11/11/2010 RODY CERTIFIED NURSES AIDE, HEATHER S 070.54 HEPATITIS C CHRONIC 11/11/2010 RODY CERTIFIED NURSES AIDE, HEATHER S 070.54 HEPATITIS C CHRONIC 11/11/2010 RODY CERTIFIED NURSES AIDE, HEATHER S 070.54 HEPATITIS C CHRONIC 11/11/2010 RODY CERTIFIED NURSES AIDE, HEATHER S 070.54 HEPATITIS C CHRONIC 11/11/2010 RODY CERTIFIED NURSES AIDE, HEATHER S 070.54 HEPATITIS C CHRONIC 10/25/2011 RODY SAVAGE, HEATHER S V76.19 OTHER SCREENING BREAST EXAMINATION 10/25/2011 RODY SAVAGE, HEATHER S V76.2 CERVICAL CANCER SCREENING (PAP SMEAR) 10/25/2011 V76.19 OTHER SCREENING BREAST EXAMINATION 10/25/2011 V76.2 CERVICAL CANCER SCREENING (PAP SMEAR) 10/25/2011 MIROSLAVA HILL MD V76.19 OTHER SCREENING BREAST EXAMINATION 10/25/2011 MIROSLAVA HILL MD V76.2 CERVICAL CANCER SCREENING (PAP SMEAR) 10/25/2011 TRAM LAGOS APRN V76.19 OTHER SCREENING BREAST EXAMINATION 10/25/2011 TRAM LAGOS APRN V76.2 CERVICAL CANCER SCREENING (PAP SMEAR) 10/25/2011 V76.19 OTHER SCREENING BREAST EXAMINATION 10/25/2011 V76.2 CERVICAL CANCER SCREENING (PAP SMEAR) 10/25/2011 V76.19 OTHER SCREENING BREAST EXAMINATION 10/25/2011 V76.2 CERVICAL CANCER SCREENING (PAP SMEAR) 10/25/2011 MIKE AGUILAR DO V76.19 OTHER SCREENING BREAST EXAMINATION 10/25/2011 MIKE AGUILAR DO V76.2 CERVICAL CANCER SCREENING (PAP SMEAR) 10/25/2011 MIKE AGUILAR DO V76.19 OTHER SCREENING BREAST EXAMINATION 10/25/2011 MIKE AGUILAR DO V76.2 CERVICAL CANCER SCREENING (PAP SMEAR) 10/25/2011 CARINA FINE APRNA S V76.19 OTHER SCREENING BREAST EXAMINATION 10/25/2011 RUSLAN FINE APRNNDA S V76.2 CERVICAL CANCER SCREENING (PAP SMEAR) 10/25/2011 MERCEDES JENNINGS DDS V76.19 OTHER SCREENING BREAST EXAMINATION 10/25/2011 MERCEDES JENNINGS DDS V76.2 CERVICAL CANCER SCREENING (PAP SMEAR) 10/25/2011 RODY CERTIFIED NURSES AIDE, HEATHER S V76.19 OTHER SCREENING BREAST EXAMINATION 10/25/2011 RODY CERTIFIED NURSES AIDE HEATHER S V76.2 CERVICAL CANCER SCREENING (PAP SMEAR) 10/25/2011 RODY CERTIFIED NURSES AIDE, HEATHER S V76.19 OTHER SCREENING BREAST EXAMINATION 10/25/2011 RODY CERTIFIED NURSES AIDE, HEATHER S V76.2 CERVICAL CANCER SCREENING (PAP SMEAR) 10/25/2011 RODY CERTIFIED NURSES AIDE HEATHER S V76.19 OTHER SCREENING BREAST EXAMINATION 10/25/2011 RODY CERTIFIED NURSES AIDE HEATHER S V76.2 CERVICAL CANCER SCREENING (PAP SMEAR) 10/25/2011 RDOY CERTIFIED NURSES AIDE HEATHER S V76.19 OTHER SCREENING BREAST EXAMINATION 10/25/2011 RODY CERTIFIED NURSES AIDE HEATHER S V76.2 CERVICAL CANCER SCREENING (PAP SMEAR) 10/25/2011 RODY CERTIFIED NURSES AIDE, HEATHER S V76.19 OTHER SCREENING BREAST EXAMINATION 10/25/2011 RODY CERTIFIED NURSES AIDE, HEATHER S V76.2 CERVICAL CANCER SCREENING (PAP SMEAR) 10/25/2011 RODY CERTIFIED NURSES AIDE, HEATHER S V76.19 OTHER SCREENING BREAST EXAMINATION 10/25/2011 RODY CERTIFIED NURSES AIDE, HEATHER S V76.2 CERVICAL CANCER SCREENING (PAP SMEAR) 10/25/2011 DEMOND SAVAGE TRAM A V76.19 OTHER SCREENING BREAST EXAMINATION 10/25/2011 DEMOND APRN, TRAM A V76.2 CERVICAL CANCER SCREENING (PAP SMEAR) 10/25/2011 LAUREN DO MIKE K V76.19 OTHER SCREENING BREAST EXAMINATION 10/25/2011 AGUILAR DO MIKE K V76.2 CERVICAL CANCER SCREENING (PAP SMEAR) 10/25/2011 RODY CERTIFIED NURSES AIDE, HEATHER S V76.19 OTHER SCREENING BREAST EXAMINATION 10/25/2011 RODY CERTIFIED NURSES AIDE, HEATHER S V76.2 CERVICAL CANCER SCREENING (PAP SMEAR) 10/25/2011 RODY CERTIFIED NURSES AIDE, HEATHER S V76.19 OTHER SCREENING BREAST EXAMINATION 10/25/2011 RODY CERTIFIED NURSES AIDE, HEATHER S V76.2 CERVICAL CANCER SCREENING (PAP SMEAR) 10/25/2011 RODY CERTIFIED NURSES AIDE, HEATHER S V76.19 OTHER SCREENING BREAST EXAMINATION 10/25/2011 RODY SAVAGE, HEATHER S V76.2 CERVICAL CANCER SCREENING (PAP SMEAR) 10/25/2011 RODY CERTIFIED NURSES AIDE, HEATHER S V76.19 OTHER SCREENING BREAST EXAMINATION 10/25/2011 RODY CERTIFIED NURSES AIDE, HEATHER S V76.2 CERVICAL CANCER SCREENING (PAP SMEAR) 10/25/2011 RODY CERTIFIED NURSES AIDE, HEATHER S V76.19 OTHER SCREENING BREAST EXAMINATION 10/25/2011 RODY CERTIFIED NURSES AIDE, HEATHER S V76.2 CERVICAL CANCER SCREENING (PAP SMEAR) 11/16/2011 RODY SAVAGE, HEATHER S 729.82 CRAMP OF LIMB 11/16/2011 729.82 CRAMP OF LIMB 11/16/2011 MIROSLAVA HILL MD 729.82 CRAMP OF LIMB 11/16/2011 TRAM LAGOS APRN A 729.82 CRAMP OF LIMB 11/16/2011 729.82 CRAMP OF LIMB 11/16/2011 729.82 CRAMP OF LIMB 11/16/2011 MIKE AGUILAR DO K 729.82 CRAMP OF LIMB 11/16/2011 AGUILAR MIKE TENA K 729.82 CRAMP OF LIMB 11/16/2011 RODY SAVAGE, HEATHER S 729.82 CRAMP OF LIMB 11/16/2011 MERCEDES JENNINGS DDS 729.82 CRAMP OF LIMB 11/16/2011 RODY SAVAGE, HEATHER S 729.82 CRAMP OF LIMB 11/16/2011 RODY SAVAGE, HEATHER S 729.82 CRAMP OF LIMB 11/16/2011 RODY CERTIFIED NURSES AIDE, HEATHER S 729.82 CRAMP OF LIMB 11/16/2011 RODY CERTIFIED NURSES AIDE, HEATHER S 729.82 CRAMP OF LIMB 11/16/2011 RODY CERTIFIED NURSES AIDE, HEATHER S 729.82 CRAMP OF LIMB 11/16/2011 RODY CERTIFIED NURSES AIDE, HEATHER S 729.82 CRAMP OF LIMB 11/16/2011 TRAM LAGOS APRN A 729.82 CRAMP OF LIMB 11/16/2011 PRACHI AGUILAR DOA K 729.82 CRAMP OF LIMB 11/16/2011 RODY CERTIFIED NURSES AIDE, HEATHER S 729.82 CRAMP OF LIMB 11/16/2011 RODY CERTIFIED NURSES AIDE, HEATHER S 729.82 CRAMP OF LIMB 11/16/2011 RODY CERTIFIED NURSES AIDE, HEATHER S 729.82 CRAMP OF LIMB 11/16/2011 RODY CERTIFIED NURSES AIDE, HEATHER S 729.82 CRAMP OF LIMB 11/16/2011 RODY CERTIFIED NURSES AIDE, HEATHER S 729.82 CRAMP OF LIMB 02/09/2012 RODY CERTIFIED NURSES AIDE, HEATHER S 788.1 DYSURIA 02/09/2012 788.1 DYSURIA 02/09/2012 MIROSLAVA HILL MD 788.1 DYSURIA 02/09/2012 DEMONDPATRICIA SAVAGE TRAM A 788.1 DYSURIA 02/09/2012 788.1 DYSURIA 02/09/2012 788.1 DYSURIA 02/09/2012 AGUILAR DO, MIKE K 788.1 DYSURIA 02/09/2012 AGUILAR DO, MIKE K 788.1 DYSURIA 02/09/2012 RODYJAIMEE BOYKINN, HEATHER S 788.1 DYSURIA 02/09/2012 MERCEDES JENNINGS DDS 788.1 DYSURIA 02/09/2012 RODY BOYKINN, HEATHER S 788.1 DYSURIA 02/09/2012 RODY CERTIFIED NURSES AIDE, HEATHER S 788.1 DYSURIA 02/09/2012 RODY CERTIFIED NURSES AIDE, HEATHER S 788.1 DYSURIA 02/09/2012 RODY CERTIFIED NURSES AIDE, HEATHER S 788.1 DYSURIA 02/09/2012 RODY CERTIFIED NURSES AIDE, HEATHER S 788.1 DYSURIA 02/09/2012 RODY CERTIFIED NURSES AIDE, HEATHER S 788.1 DYSURIA 02/09/2012 JEAN CARLOS LAGOS APRNIDI A 788.1 DYSURIA 02/09/2012 AGUILAR DO, MIKE K 788.1 DYSURIA 02/09/2012 RODY CERTIFIED NURSES AIDE, HEATHER S 788.1 DYSURIA 02/09/2012 RODY CERTIFIED NURSES AIDE, HEATHER S 788.1 DYSURIA 02/09/2012 RODY CERTIFIED NURSES AIDE, HEATHER S 788.1 DYSURIA 02/09/2012 HEATHER FINE APRN 788.1 DYSURIA 02/09/2012 HEATHER FINE APRN 788.1 DYSURIA 04/16/2012 Ot 070.54 CHRONIC HEPATITIS C W/O HEPATIC COMA 04/16/2012 Ot 284.19 OTHER PANCYTOPENIA 04/16/2012 Ot 300.00 ANXIETY STATE NOS 04/16/2012 Ot 305.1 TOBACCO USE DISORDER 04/16/2012 Ot 311 DEPRESSIVE DISORDER NEC 04/16/2012 Ot 456.20 BLEED ESOPH TASHI OTH DIS 04/16/2012 Ot 535.50 UNSP GASTRITIS GASTRODUODENITIS W/O ME 04/16/2012 Ot 571.2 ALCOHOL CIRRHOSIS LIVER 04/16/2012 Ot 724.5 BACKACHE NOS 04/30/2012 HEATHER FINE APRN 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 04/30/2012 HEATHER FINE APRN 578.9 HEMORRHAGE OF GASTROINTESTINAL TRACT UNSPECIFIED 04/30/2012 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 04/30/2012 578.9 HEMORRHAGE OF GASTROINTESTINAL TRACT UNSPECIFIED 04/30/2012 MIROSLAVA HILL MD 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 04/30/2012 MIROSLAVA HILL MD 578.9 HEMORRHAGE OF GASTROINTESTINAL TRACT UNSPECIFIED 04/30/2012 TRAM LAGOS APRN 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 04/30/2012 TRAM LAGOS APRN 578.9 HEMORRHAGE OF GASTROINTESTINAL TRACT UNSPECIFIED 04/30/2012 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 04/30/2012 578.9 HEMORRHAGE OF GASTROINTESTINAL TRACT UNSPECIFIED 04/30/2012 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 04/30/2012 578.9 HEMORRHAGE OF GASTROINTESTINAL TRACT UNSPECIFIED 04/30/2012 AGUILAR DO, MIKE K 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 04/30/2012 AGUILAR DO MIKE K 578.9 HEMORRHAGE OF GASTROINTESTINAL TRACT UNSPECIFIED 04/30/2012 AGUILAR DO MIKE K 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 04/30/2012 AGUILAR DO, MIKE K 578.9 HEMORRHAGE OF GASTROINTESTINAL TRACT UNSPECIFIED 04/30/2012 HEATHER FINE APRN 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 04/30/2012 RODY CERTIFIED NURSES AIDE, HEATHER S 578.9 HEMORRHAGE OF GASTROINTESTINAL TRACT UNSPECIFIED 04/30/2012 WHITE DDS, MERCEDES D 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 04/30/2012 WHITE DDS, MERCEDES D 578.9 HEMORRHAGE OF GASTROINTESTINAL TRACT UNSPECIFIED 04/30/2012 RODY CERTIFIED NURSES AIDE, HEATHER S 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 04/30/2012 RODY CERTIFIED NURSES AIDE, HEATHER S 578.9 HEMORRHAGE OF GASTROINTESTINAL TRACT UNSPECIFIED 04/30/2012 RODY CERTIFIED NURSES AIDE, HEATHER S 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 04/30/2012 RODY CERTIFIED NURSES AIDE, HEATHER S 578.9 HEMORRHAGE OF GASTROINTESTINAL TRACT UNSPECIFIED 04/30/2012 RODY CERTIFIED NURSES AIDE, HEATHER S 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 04/30/2012 RODY CERTIFIED NURSES AIDE, HEATHER S 578.9 HEMORRHAGE OF GASTROINTESTINAL TRACT UNSPECIFIED 04/30/2012 RODY CERTIFIED NURSES AIDE, HEATHER S 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 04/30/2012 RODY CERTIFIED NURSES AIDE, HEATHER S 578.9 HEMORRHAGE OF GASTROINTESTINAL TRACT UNSPECIFIED 04/30/2012 RODY CERTIFIED NURSES AIDE, HEATHER S 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 04/30/2012 RODY CERTIFIED NURSES AIDE, HEATHER S 578.9 HEMORRHAGE OF GASTROINTESTINAL TRACT UNSPECIFIED 04/30/2012 RODY CERTIFIED NURSES AIDE, HEATHER S 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 04/30/2012 RODY CERTIFIED NURSES AIDE, HEATHER S 578.9 HEMORRHAGE OF GASTROINTESTINAL TRACT UNSPECIFIED 04/30/2012 DEMOND CERTIFIED NURSES AIDE, TRAM A 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 04/30/2012 DEMOND CERTIFIED NURSES AIDE, TRAM A 578.9 HEMORRHAGE OF GASTROINTESTINAL TRACT UNSPECIFIED 04/30/2012 AGUILAR DO, MIKE K 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 04/30/2012 AGUILAR DO, MIKE K 578.9 HEMORRHAGE OF GASTROINTESTINAL TRACT UNSPECIFIED 04/30/2012 RODY CERTIFIED NURSES AIDE, HEATHER S 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 04/30/2012 RODY CERTIFIED NURSES AIDE, HEATHER S 578.9 HEMORRHAGE OF GASTROINTESTINAL TRACT UNSPECIFIED 04/30/2012 RODY CERTIFIED NURSES AIDE, HEATHER S 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 04/30/2012 RODY CERTIFIED NURSES AIDE, HEATHER S 578.9 HEMORRHAGE OF GASTROINTESTINAL TRACT UNSPECIFIED 04/30/2012 RODY CERTIFIED NURSES AIDE, HEATHER S 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 04/30/2012 RODY CERTIFIED NURSES AIDE, HEATHER S 578.9 HEMORRHAGE OF GASTROINTESTINAL TRACT UNSPECIFIED 04/30/2012 RODY CERTIFIED NURSES AIDE, HEATHER S 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 04/30/2012 RODY CERTIFIED NURSES AIDE, HEATHER S 578.9 HEMORRHAGE OF GASTROINTESTINAL TRACT UNSPECIFIED 04/30/2012 RODY CERTIFIED NURSES AIDE, HEATHER S 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 04/30/2012 RODY CERTIFIED NURSES AIDE, HEATHER S 578.9 HEMORRHAGE OF GASTROINTESTINAL TRACT UNSPECIFIED 07/09/2012 RODY SAVAGE, HEATHER S 305.1 NONDEPENDENT TOBACCO USE DISORDER 07/09/2012 305.1 NONDEPENDENT TOBACCO USE DISORDER 07/09/2012 LIZ HOOKS, MIROSLAVA 305.1 NONDEPENDENT TOBACCO USE DISORDER 07/09/2012 TRAM LAGOS APRN A 305.1 NONDEPENDENT TOBACCO USE DISORDER 07/09/2012 305.1 NONDEPENDENT TOBACCO USE DISORDER 07/09/2012 305.1 NONDEPENDENT TOBACCO USE DISORDER 07/09/2012 AGUILAR DO, MIEK K 305.1 NONDEPENDENT TOBACCO USE DISORDER 07/09/2012 AGUILAR DO, MIKE K 305.1 NONDEPENDENT TOBACCO USE DISORDER 07/09/2012 RODY SAVAGE, HEATHER S 305.1 NONDEPENDENT TOBACCO USE DISORDER 07/09/2012 MICHAELA FUENTESSMERCEDES 305.1 NONDEPENDENT TOBACCO USE DISORDER 07/09/2012 RODY SAVAGE, HEATHER S 305.1 NONDEPENDENT TOBACCO USE DISORDER 07/09/2012 RODY SAVAGE, HEATHER S 305.1 NONDEPENDENT TOBACCO USE DISORDER 07/09/2012 RODY SAVAGE HEATHER S 305.1 NONDEPENDENT TOBACCO USE DISORDER 07/09/2012 RODY SAVAGE, HEATHER S 305.1 NONDEPENDENT TOBACCO USE DISORDER 07/09/2012 RODY SAVAGE HEATHER S 305.1 NONDEPENDENT TOBACCO USE DISORDER 07/09/2012 RODY SAVAGE HEATHER S 305.1 NONDEPENDENT TOBACCO USE DISORDER 07/09/2012 DEMOND TRAM SAVAGE A 305.1 NONDEPENDENT TOBACCO USE DISORDER 07/09/2012 MIKE AGUILAR DO K 305.1 NONDEPENDENT TOBACCO USE DISORDER 07/09/2012 CARINA FINE APRNA S 305.1 NONDEPENDENT TOBACCO USE DISORDER 07/09/2012 CARINA FINE APRNA S 305.1 NONDEPENDENT TOBACCO USE DISORDER 07/09/2012 HEATHER FINE APRN S 305.1 NONDEPENDENT TOBACCO USE DISORDER 07/09/2012 CARINA FINE APRNA S 305.1 NONDEPENDENT TOBACCO USE DISORDER 07/09/2012 HEATHER FINE APRN S 305.1 NONDEPENDENT TOBACCO USE DISORDER 08/27/2012 Ot 070.32 CHRONIC VIRAL HEP B W/O HEP COMA W/O HEP 08/27/2012 Ot 285.9 ANEMIA NOS 08/27/2012 Ot 287.5 THROMBOCYTOPENIA NOS 08/27/2012 Ot 300.00 ANXIETY STATE NOS 08/27/2012 Ot 303.93 ALCOH DEP NEC/NOS-REMISS 08/27/2012 Ot 311 DEPRESSIVE DISORDER NEC 08/27/2012 Ot 456.20 BLEED ESOPH TASHI OTH DIS 08/27/2012 Ot 535.50 UNSP GASTRITIS GASTRODUODENITIS W/O ME 08/27/2012 Ot 571.2 ALCOHOL CIRRHOSIS LIVER 08/27/2012 Ot V15.82 HISTORY OF TOBACCO USE 11/13/2012 TRAM LAGOS APRN A V76.10 BREAST CANCER SCREENING 11/13/2012 V76.10 BREAST CANCER SCREENING 11/13/2012 V76.10 BREAST CANCER SCREENING 11/13/2012 MIKE AGUILAR DO K V76.10 BREAST CANCER SCREENING 11/13/2012 MIKE AGUILAR DO K V76.10 BREAST CANCER SCREENING 11/13/2012 HEATHER FINE APRN S V76.10 BREAST CANCER SCREENING 11/13/2012 MERCEDES JENNINGS DDS V76.10 BREAST CANCER SCREENING 11/13/2012 HEATHER FINE APRN S V76.10 BREAST CANCER SCREENING 11/13/2012 HEATHER FINE APRN S V76.10 BREAST CANCER SCREENING 11/13/2012 HEATHER FINE APRN S V76.10 BREAST CANCER SCREENING 11/13/2012 RODY CERTIFIED NURSES AIDE, HEATHER S V76.10 BREAST CANCER SCREENING 11/13/2012 RODY CERTIFIED NURSES AIDE, HEATHER S V76.10 BREAST CANCER SCREENING 11/13/2012 RODY CERTIFIED NURSES AIDE, HEATHER S V76.10 BREAST CANCER SCREENING 11/13/2012 DEMOND CERTIFIED NURSES AIDE, TRAM A V76.10 BREAST CANCER SCREENING 11/13/2012 AGUILAR DO, MIKE K V76.10 BREAST CANCER SCREENING 11/13/2012 RODY CERTIFIED NURSES AIDE, HEATHER S V76.10 BREAST CANCER SCREENING 11/13/2012 RODY CERTIFIED NURSES AIDE, HEATHER S V76.10 BREAST CANCER SCREENING 11/13/2012 RODY CERTIFIED NURSES AIDE, HEATHER S V76.10 BREAST CANCER SCREENING 11/13/2012 RODY CERTIFIED NURSES AIDE, HEATHER S V76.10 BREAST CANCER SCREENING 12/31/2012 719.46 PAIN- KNEE 12/31/2012 AGUILAR DO, MIKE K 719.46 PAIN- KNEE 12/31/2012 AGUILAR DO, MIKE K 719.46 PAIN- KNEE 12/31/2012 RODY CERTIFIED NURSES AIDE, HEATHER S 719.46 PAIN- KNEE 12/31/2012 MERCEDES JENNINGS DDS 719.46 PAIN- KNEE 12/31/2012 RODY CERTIFIED NURSES AIDE, HEATHER S 719.46 PAIN- KNEE 12/31/2012 RODY CERTIFIED NURSES AIDE, HEATHER S 719.46 PAIN- KNEE 12/31/2012 RODY CERTIFIED NURSES AIDE, HEATHER S 719.46 PAIN- KNEE 12/31/2012 RODY CERTIFIED NURSES AIDE, HEATHER S 719.46 PAIN- KNEE 12/31/2012 RODY CERTIFIED NURSES AIDE, HEATHER S 719.46 PAIN- KNEE 12/31/2012 RODY CERTIFIED NURSES AIDE, HEATHER S 719.46 PAIN- KNEE 12/31/2012 DEMOND CERTIFIED NURSES AIDE, TRAM A 719.46 PAIN- KNEE 12/31/2012 AGUILAR DO, MIKE K 719.46 PAIN- KNEE 12/31/2012 RODY CERTIFIED NURSES AIDE, HEATHER S 719.46 PAIN- KNEE 12/31/2012 RODY CERTIFIED NURSES AIDE, HEATHER S 719.46 PAIN- KNEE 12/31/2012 RODY CERTIFIED NURSES AIDE, HEATHER S 719.46 PAIN- KNEE 12/31/2012 RODY CERTIFIED NURSES AIDE, HEATHER S 719.46 PAIN- KNEE 02/20/2013 AGUILAR DO, MIKE K 300.00 ANXIETY STATE UNSPECIFIED 02/20/2013 AGUILAR DO, MIKE K 300.00 ANXIETY STATE UNSPECIFIED 02/20/2013 RODY CERTIFIED NURSES AIDE, HEATHER S 300.00 ANXIETY STATE UNSPECIFIED 02/20/2013 WHITE DDS, MERCEDES D 300.00 ANXIETY STATE UNSPECIFIED 02/20/2013 RODY CERTIFIED NURSES AIDE, HEATHER S 300.00 ANXIETY STATE UNSPECIFIED 02/20/2013 RODY CERTIFIED NURSES AIDE, HEATHER S 300.00 ANXIETY STATE UNSPECIFIED 02/20/2013 RODY CERTIFIED NURSES AIDE, HEATHER S 300.00 ANXIETY STATE UNSPECIFIED 02/20/2013 RODY CERTIFIED NURSES AIDE, HEATHER S 300.00 ANXIETY STATE UNSPECIFIED 02/20/2013 RODY CERTIFIED NURSES AIDE, HEATHER S 300.00 ANXIETY STATE UNSPECIFIED 02/20/2013 RODY CERTIFIED NURSES AIDE, HEATHER S 300.00 ANXIETY STATE UNSPECIFIED 02/20/2013 DEMOND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 HISTORY OTH SPEC DIGESTIVE SYST 01/24/2016 MARLO BRYANT MD Ot V58.69 OTH MED,LT,CURRENT USE 01/24/2016 MARLO BRYANT MD Ot 070.54 CHRONIC HEPATITIS C W/O HEPATIC COMA 01/24/2016 MARLO BRYANT MD Ot 285.9 ANEMIA NOS 01/24/2016 MARLO BRYANT MD Ot 287.5 THROMBOCYTOPENIA NOS 01/24/2016 MARLO BRYANT MD Ot 571.3 ALCOHOL LIVER DAMAGE NOS 01/24/2016 MARLO BRYANT MD Ot V11.3 HX OF ALCOHOLISM 01/24/2016 MARLO BRYANT MD Ot V12.79 PERSONAL HISTORY OTH SPEC DIGESTIVE SYST 01/24/2016 MARLO BRYANT MD Ot V58.69 OTH MED,LT,CURRENT USE 01/24/2016 NWAAF TORRES MD Ot V72.84 EXAM PRE-OPERATIVE NOS 01/24/2016 MARLO BRYANT MD Ot 571.5 CIRRHOSIS OF LIVER NOS 01/24/2016 MARLO BRYANT MD Ot 789.2 SPLENOMEGALY 01/24/2016 MARLO BRYANT MD Ot 070.54 CHRONIC HEPATITIS C W/O HEPATIC COMA 01/24/2016 MARLO BRYANT MD Ot 285.9 ANEMIA NOS 01/24/2016 MARLO BRYANT MD Ot 287.5 THROMBOCYTOPENIA NOS 01/24/2016 MARLO BRYANT MD Ot 571.3 ALCOHOL LIVER DAMAGE NOS 01/24/2016 MARLO BRYANT MD Ot V11.3 HX OF ALCOHOLISM 01/24/2016 MARLO BRYANT MD Ot V12.79 PERSONAL HISTORY OTH SPEC DIGESTIVE SYST 01/24/2016 MARLO BRYANT MD Ot V58.69 OTH MED,LT,CURRENT USE 01/24/2016 MARLO BRYANT MD Ot 070.54 CHRONIC HEPATITIS C W/O HEPATIC COMA 01/24/2016 MARLO BRYANT MD Ot 285.9 ANEMIA NOS 01/24/2016 MARLO BRYANT MD Ot 287.5 THROMBOCYTOPENIA NOS 01/24/2016 MARLO BRYANT MD Ot 571.3 ALCOHOL LIVER DAMAGE NOS 01/24/2016 MARLO BRYANT MD Ot V11.3 HX OF ALCOHOLISM 01/24/2016 MARLO BRYANT MD Ot V12.79 PERSONAL HISTORY OTH SPEC DIGESTIVE SYST 01/24/2016 MARLO BRYANT MD Ot V58.69 OTH MED,LT,CURRENT USE 01/24/2016 CHRISTOPHER ZHENG MD Ot 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 01/24/2016 CHRISTOPHER ZHENG MD Ot 571.5 CIRRHOSIS OF LIVER NOS 01/24/2016 CHRISTOPHER ZHENG MD Ot 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 01/24/2016 CHRISTOPHER ZHENG MD Ot 571.5 CIRRHOSIS OF LIVER NOS 01/24/2016 MARLO BRYANT MD Ot B18.2 CHRONIC VIRAL HEPATITIS C 01/24/2016 MARLO BRYANT MD Ot D64.9 ANEMIA, UNSPECIFIED 01/24/2016 MARLO BRYANT MD Ot D69.6 THROMBOCYTOPENIA, UNSPECIFIED 01/24/2016 MARLO BRYANT MD Ot F10.21 ALCOHOL DEPENDENCE, IN REMISSION 01/24/2016 MARLO BRYANT MD Ot K70.9 ALCOHOLIC LIVER DISEASE, UNSPECIFIED 01/24/2016 MARLO BRYANT MD Ot Z79.899 OTHER CUSTODIAL (CURRENT) DRUG THERAPY 01/27/2016 MARLO BRYANT MD Ot B18.2 CHRONIC VIRAL HEPATITIS C 01/27/2016 MARLO BRYANT MD Ot R16.1 SPLENOMEGALY, NOT ELSEWHERE CLASSIFIED 03/01/2016 KOSTA MAGANA Ot J01.90 ACUTE SINUSITIS, UNSPECIFIED 03/01/2016 KOSTA MAGANA Ot K08.8 OTHER SPECIFIED DISORDERS OF TEETH AND S 03/01/2016 Ot 070.54 CHRONIC HEPATITIS C W/O HEPATIC COMA 03/01/2016 Ot V12.79 PERSONAL HISTORY OTH SPEC DIGESTIVE SYST 03/01/2016 Ot V58.69 OTH MED,LT, CURRENT USE 03/01/2016 Ot 070.70 UNSPECIFIED VIRAL HEPATITIS C WITHOUT HE 03/01/2016 Ot 789.2 SPLENOMEGALY 03/01/2016 Ot 070.70 UNSPECIFIED VIRAL HEPATITIS C WITHOUT HE 03/01/2016 Ot 287.5 THROMBOCYTOPENIA NOS 03/01/2016 Ot 793.82 INCONCLUSIVE MAMMOGRAM 03/01/2016 Ot V76.12 OTH SCREEN MAMMO-MALIGN NEOPLASM OF CARLEE 03/01/2016 MARLO BRYANT MD Ot 070.54 CHRONIC HEPATITIS C W/O HEPATIC COMA 03/01/2016 MARLO BRYANT MD Ot 285.9 ANEMIA NOS 03/01/2016 MARLO BRYANT MD Ot 287.5 THROMBOCYTOPENIA NOS 03/01/2016 MARLO BRYANT MD Ot 571.3 ALCOHOL LIVER DAMAGE NOS 03/01/2016 MARLO BRYANT MD Ot V12.79 PERSONAL HISTORY OTH SPEC DIGESTIVE SYST 03/01/2016 MARLO BRYANT MD Ot V58.69 OTH MED,LT,CURRENT USE 03/01/2016 MARLO BRYANT MD Ot 070.54 CHRONIC HEPATITIS C W/O HEPATIC COMA 03/01/2016 MARLO BRYANT MD Ot 285.9 ANEMIA NOS 03/01/2016 MARLO BRYANT MD Ot 287.5 THROMBOCYTOPENIA NOS 03/01/2016 MARLO BRYANT MD Ot 571.3 ALCOHOL LIVER DAMAGE NOS 03/01/2016 MARLO BRYANT MD Ot V11.3 HX OF ALCOHOLISM 03/01/2016 MARLO BRYANT MD Ot V12.79 PERSONAL HISTORY OTH SPEC DIGESTIVE SYST 03/01/2016 MARLO BRYANT MD Ot V58.69 OTH MED,LT,CURRENT USE 03/01/2016 MELISSA HOOKS, NAWAF Garvin Ot V72.84 EXAM PRE-OPERATIVE NOS 03/01/2016 MARLO BRYANT MD Ot 571.5 CIRRHOSIS OF LIVER NOS 03/01/2016 MARLO BRYANT MD Ot 789.2 SPLENOMEGALY 03/01/2016 MARLO BRYANT MD Ot 070.54 CHRONIC HEPATITIS C W/O HEPATIC COMA 03/01/2016 MARLO BRYANT MD Ot 285.9 ANEMIA NOS 03/01/2016 MARLO BRYANT MD Ot 287.5 THROMBOCYTOPENIA NOS 03/01/2016 MARLO BRYANT MD Ot 571.3 ALCOHOL LIVER DAMAGE NOS 03/01/2016 MARLO BRYANT MD Ot V11.3 HX OF ALCOHOLISM 03/01/2016 MARLO BRYANT MD Ot V12.79 PERSONAL HISTORY OTH SPEC DIGESTIVE SYST 03/01/2016 MARLO BRYANT MD Ot V58.69 OTH MED,LT,CURRENT USE 03/01/2016 MARLO BRYANT MD Ot 070.54 CHRONIC HEPATITIS C W/O HEPATIC COMA 03/01/2016 MARLO BRYANT MD Ot 285.9 ANEMIA NOS 03/01/2016 MARLO BRYANT MD Ot 287.5 THROMBOCYTOPENIA NOS 03/01/2016 MARLO BRYANT MD Ot 571.3 ALCOHOL LIVER DAMAGE NOS 03/01/2016 MARLO BRYANT MD Ot V11.3 HX OF ALCOHOLISM 03/01/2016 MARLO BRYANT MD Ot V12.79 PERSONAL HISTORY OTH SPEC DIGESTIVE SYST 03/01/2016 MARLO BRYANT MD Ot V58.69 OTH MED,LT,CURRENT USE 03/01/2016 CHRISTOPHER ZHENG MD Ot 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 03/01/2016 CHRISTOPHER ZHENG MD Ot 571.5 CIRRHOSIS OF LIVER NOS 03/01/2016 CHRISTOPHER ZHENG MD Ot 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 03/01/2016 CHRISTOPHER ZHENG MD Ot 571.5 CIRRHOSIS OF LIVER NOS 03/01/2016 MARLO BRYANT MD Ot B18.2 CHRONIC VIRAL HEPATITIS C 03/01/2016 MARLO BRYANT MD Ot R16.1 SPLENOMEGALY, NOT ELSEWHERE CLASSIFIED 03/06/2016 Ot 070.54 CHRONIC HEPATITIS C W/O HEPATIC COMA 03/06/2016 Ot V12.79 PERSONAL HISTORY OTH SPEC DIGESTIVE SYST 03/06/2016 Ot V58.69 OTH MED,LT, CURRENT USE 03/06/2016 Ot 070.70 UNSPECIFIED VIRAL HEPATITIS C WITHOUT HE 03/06/2016 Ot 789.2 SPLENOMEGALY 03/06/2016 Ot 070.70 UNSPECIFIED VIRAL HEPATITIS C WITHOUT HE 03/06/2016 Ot 287.5 THROMBOCYTOPENIA NOS 03/06/2016 Ot 793.82 INCONCLUSIVE MAMMOGRAM 03/06/2016 Ot V76.12 OTH SCREEN MAMMO-MALIGN NEOPLASM OF CARLEE 03/06/2016 MARLO BRYANT MD Ot 070.54 CHRONIC HEPATITIS C W/O HEPATIC COMA 03/06/2016 MARLO BRYANT MD Ot 285.9 ANEMIA NOS 03/06/2016 MARLO BRYANT MD Ot 287.5 THROMBOCYTOPENIA NOS 03/06/2016 MARLO BRYANT MD Ot 571.3 ALCOHOL LIVER DAMAGE NOS 03/06/2016 MARLO BRYANT MD Ot V12.79 PERSONAL HISTORY OTH SPEC DIGESTIVE SYST 03/06/2016 MARLO BRYANT MD Ot V58.69 OTH MED,LT,CURRENT USE 03/06/2016 MARLO BRYANT MD Ot 070.54 CHRONIC HEPATITIS C W/O HEPATIC COMA 03/06/2016 MARLO BRYANT MD Ot 285.9 ANEMIA NOS 03/06/2016 MARLO BRYANT MD Ot 287.5 THROMBOCYTOPENIA NOS 03/06/2016 MARLO BRYANT MD Ot 571.3 ALCOHOL LIVER DAMAGE NOS 03/06/2016 MARLO BRYANT MD Ot V11.3 HX OF ALCOHOLISM 03/06/2016 MARLO BRYANT MD Ot V12.79 PERSONAL HISTORY OTH SPEC DIGESTIVE SYST 03/06/2016 MARLO BRYANT MD Ot V58.69 OTH MED,LT,CURRENT USE 03/06/2016 MELISSA HOOKS, NAWAF Garvin Ot V72.84 EXAM PRE-OPERATIVE NOS 03/06/2016 MARLO BRYANT MD Ot 571.5 CIRRHOSIS OF LIVER NOS 03/06/2016 MARLO BRYANT MD Ot 789.2 SPLENOMEGALY 03/06/2016 MARLO BRYANT MD Ot 070.54 CHRONIC HEPATITIS C W/O HEPATIC COMA 03/06/2016 MARLO BRYANT MD Ot 285.9 ANEMIA NOS 03/06/2016 MARLO BRYANT MD Ot 287.5 THROMBOCYTOPENIA NOS 03/06/2016 MARLO BRYANT MD Ot 571.3 ALCOHOL LIVER DAMAGE NOS 03/06/2016 MARLO BRYANT MD Ot V11.3 HX OF ALCOHOLISM 03/06/2016 MARLO BRYANT MD Ot V12.79 PERSONAL HISTORY OTH SPEC DIGESTIVE SYST 03/06/2016 MARLO BRYANT MD Ot V58.69 OTH MED,LT,CURRENT USE 03/06/2016 MARLO BRYANT MD Ot 070.54 CHRONIC HEPATITIS C W/O HEPATIC COMA 03/06/2016 MARLO BRYANT MD Ot 285.9 ANEMIA NOS 03/06/2016 MARLO BRYANT MD Ot 287.5 THROMBOCYTOPENIA NOS 03/06/2016 MARLO BRYANT MD Ot 571.3 ALCOHOL LIVER DAMAGE NOS 03/06/2016 MARLO BRYANT MD Ot V11.3 HX OF ALCOHOLISM 03/06/2016 MARLO BRYANT MD, Ot V12.79 PERSONAL HISTORY OTH SPEC DIGESTIVE SYST 03/06/2016 MARLO BRYANT MD, Ot V58.69 OTH MED,LT,CURRENT USE 03/06/2016 CHRISTOPHER ZHENG MD Ot 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 03/06/2016 CHRISTOPHER ZHENG MD Ot 571.5 CIRRHOSIS OF LIVER NOS 03/06/2016 CHRISTOPHER ZHENG MD Ot 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 03/06/2016 CHRISTOPHER ZHENG MD Ot 571.5 CIRRHOSIS OF LIVER NOS 03/06/2016 MARLO BRYANT MD, Ot B18.2 CHRONIC VIRAL HEPATITIS C 03/06/2016 MARLO BRYANT MD Ot R16.1 SPLENOMEGALY, NOT ELSEWHERE CLASSIFIED 03/07/2016 KOSTA MAGANA Ot J01.90 ACUTE SINUSITIS, UNSPECIFIED 03/07/2016 KOSTA MAGANA Ot K08.8 OTHER SPECIFIED DISORDERS OF TEETH AND S 04/04/2016 KOSTA MAGANA Ot J01.90 ACUTE SINUSITIS, UNSPECIFIED 04/04/2016 KOSTA MAGANA Ot K08.8 OTHER SPECIFIED DISORDERS OF TEETH AND S 04/19/2016 MARLO BRYANT MD Ot B18.2 CHRONIC VIRAL HEPATITIS C 04/19/2016 MARLO BRYANT MD Ot D64.9 ANEMIA, UNSPECIFIED 04/19/2016 MARLO BRYANT MD Ot D69.6 THROMBOCYTOPENIA, UNSPECIFIED 04/19/2016 MARLO BRYANT MD Ot F10.21 ALCOHOL DEPENDENCE, IN REMISSION 04/19/2016 MARLO BRYANT MD Ot K70.9 ALCOHOLIC LIVER DISEASE, UNSPECIFIED 04/19/2016 MARLO BRYANT MD Ot 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 04/20/2016 MARLO BRYANT MD Ot B18.2 CHRONIC VIRAL HEPATITIS C 04/20/2016 MARLO BRYANT MD Ot D64.9 ANEMIA, UNSPECIFIED 04/20/2016 MARLO BRYANT MD Ot D69.6 THROMBOCYTOPENIA, UNSPECIFIED 04/20/2016 MARLO BRYANT MD Ot F10.21 ALCOHOL DEPENDENCE, IN REMISSION 04/20/2016 MARLO BRYANT MD Ot K70.9 ALCOHOLIC LIVER DISEASE, UNSPECIFIED 04/20/2016 MANNY HOOKS, MARLO Summers Ot Z79.899 OTHER CUSTODIAL (CURRENT) DRUG THERAPY 06/10/2016 AZUL EMMANUEL Ot J11.1 FLU DUE TO UNIDENTIFIED INFLUENZA VIRUS 06/10/2016 AZUL EMMANUELP Ot R50.9 FEVER, UNSPECIFIED 06/10/2016 AZUL EMMANUEL Ot R51 HEADACHE 06/10/2016 Ot 070.54 CHRONIC HEPATITIS C W/O HEPATIC COMA 06/10/2016 Ot V12.79 PERSONAL HISTORY OTH SPEC DIGESTIVE SYST 06/10/2016 Ot V58.69 OTH MED,LT, CURRENT USE 06/10/2016 Ot 070.70 UNSPECIFIED VIRAL HEPATITIS C WITHOUT HE 06/10/2016 Ot 789.2 SPLENOMEGALY 06/10/2016 Ot 070.70 UNSPECIFIED VIRAL HEPATITIS C WITHOUT HE 06/10/2016 Ot 287.5 THROMBOCYTOPENIA NOS 06/10/2016 Ot 793.82 INCONCLUSIVE MAMMOGRAM 06/10/2016 Ot V76.12 OTH SCREEN MAMMO-MALIGN NEOPLASM OF CARLEE 06/10/2016 MARLO BRYANT MD Ot 070.54 CHRONIC HEPATITIS C W/O HEPATIC COMA 06/10/2016 MARLO BRYANT MD Ot 285.9 ANEMIA NOS 06/10/2016 MARLO BRYANT MD Ot 287.5 THROMBOCYTOPENIA NOS 06/10/2016 MARLO BRYANT MD Ot 571.3 ALCOHOL LIVER DAMAGE NOS 06/10/2016 MARLO BRYANT MD Ot V12.79 PERSONAL HISTORY OTH SPEC DIGESTIVE SYST 06/10/2016 MARLO BRYANT MD Ot V58.69 OTH MED,LT,CURRENT USE 06/10/2016 MARLO BRYANT MD Ot 070.54 CHRONIC HEPATITIS C W/O HEPATIC COMA 06/10/2016 MARLO BRYANT MD Ot 285.9 ANEMIA NOS 06/10/2016 MARLO BRYANT MD Ot 287.5 THROMBOCYTOPENIA NOS 06/10/2016 MARLO BRYANT MD Ot 571.3 ALCOHOL LIVER DAMAGE NOS 06/10/2016 MARLO BRYANT MD Ot V11.3 HX OF ALCOHOLISM 06/10/2016 MARLO BRYANT MD Ot V12.79 PERSONAL HISTORY OTH SPEC DIGESTIVE SYST 06/10/2016 MARLO BRYANT MD Ot V58.69 OTH MED,LT,CURRENT USE 06/10/2016 MELISSA HOOKS, NAWAF Garvin Ot V72.84 EXAM PRE-OPERATIVE NOS 06/10/2016 MARLO BRYANT MD Ot 571.5 CIRRHOSIS OF LIVER NOS 06/10/2016 MARLO BRYANT MD Ot 789.2 SPLENOMEGALY 06/10/2016 MARLO BRYANT MD Ot 070.54 CHRONIC HEPATITIS C W/O HEPATIC COMA 06/10/2016 MARLO BRYANT MD Ot 285.9 ANEMIA NOS 06/10/2016 MARLO BRYANT MD Ot 287.5 THROMBOCYTOPENIA NOS 06/10/2016 MARLO BRYANT MD Ot 571.3 ALCOHOL LIVER DAMAGE NOS 06/10/2016 MARLO BRYANT MD Ot V11.3 HX OF ALCOHOLISM 06/10/2016 MARLO BRYANT MD Ot V12.79 PERSONAL HISTORY OTH SPEC DIGESTIVE SYST 06/10/2016 MARLO BRYANT MD Ot V58.69 OTH MED,LT,CURRENT USE 06/10/2016 MARLO BRYANT MD Ot 070.54 CHRONIC HEPATITIS C W/O HEPATIC COMA 06/10/2016 MARLO BRYANT MD Ot 285.9 ANEMIA NOS 06/10/2016 MARLO BRYANT MD Ot 287.5 THROMBOCYTOPENIA NOS 06/10/2016 MARLO BRYANT MD Ot 571.3 ALCOHOL LIVER DAMAGE NOS 06/10/2016 MARLO BRYANT MD Ot V11.3 HX OF ALCOHOLISM 06/10/2016 MARLO BRYANT MD Ot V12.79 PERSONAL HISTORY OTH SPEC DIGESTIVE SYST 06/10/2016 MARLO BRYANT MD Ot V58.69 OTH MED,LT,CURRENT USE 06/10/2016 CHRISTOPHER ZHENG MD Ot 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 06/10/2016 CHRISTOPHER ZHENG MD Ot 571.5 CIRRHOSIS OF LIVER NOS 06/10/2016 CHRISTOPHER ZHENG MD Ot 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 06/10/2016 CHRISTOPHER ZHENG MD Ot 571.5 CIRRHOSIS OF LIVER NOS 06/10/2016 MARLO BRYANT MD Ot B18.2 CHRONIC VIRAL HEPATITIS C 06/10/2016 MARLO BRYANT MD Ot R16.1 SPLENOMEGALY, NOT ELSEWHERE CLASSIFIED 06/10/2016 MARLO BRYANT MD Ot B18.2 CHRONIC VIRAL HEPATITIS C 06/10/2016 MARLO BRYANT MD Ot D64.9 ANEMIA, UNSPECIFIED 06/10/2016 MARLO BRYANT MD Ot D69.6 THROMBOCYTOPENIA, UNSPECIFIED 06/10/2016 MARLO BRYANT MD Ot F10.21 ALCOHOL DEPENDENCE, IN REMISSION 06/10/2016 MARLO BRYANT MD Ot K70.9 ALCOHOLIC LIVER DISEASE, UNSPECIFIED 06/10/2016 MARLO BRYANT MD Ot Z79.899 OTHER CUSTODIAL (CURRENT) DRUG THERAPY 08/17/2016 MARCE HOOKS, CHRISTOPHER Evans Ot K70.30 ALCOHOLIC CIRRHOSIS OF LIVER WITHOUT ASC 08/22/2016 MARLO BRYANT MD Ot B18.2 CHRONIC VIRAL HEPATITIS C 08/22/2016 MARLO BRYANT MD Ot D64.9 ANEMIA, UNSPECIFIED 08/22/2016 MARLO BRYANT MD Ot D69.6 THROMBOCYTOPENIA, UNSPECIFIED 08/22/2016 MARLO BRYANT MD Ot F10.21 ALCOHOL DEPENDENCE, IN REMISSION 08/22/2016 MARLO BRYANT MD Ot K70.9 ALCOHOLIC LIVER DISEASE, UNSPECIFIED 08/22/2016 MARLO BRYANT MD Ot Z79.899 OTHER CUSTODIAL (CURRENT) DRUG THERAPY 10/02/2016 TRAVIS HOOKS, YARIEL Gutierrez Ot J44.9 CHRONIC OBSTRUCTIVE PULMONARY DISEASE, U 10/02/2016 TRAVIS HOOKS, YARIEL Gutierrez Ot K59.00 CONSTIPATION, UNSPECIFIED 10/02/2016 TRAVIS HOOKS, YARIEL Gutierrez Ot N39.0 URINARY TRACT INFECTION, SITE NOT SPECIF 10/02/2016 TRAVIS HOOKS, YARIEL Gutierrez Ot R10.32 LEFT LOWER QUADRANT PAIN 10/02/2016 TRAVIS HOOKS, YARIEL Gutierrez Ot Z79.899 OTHER CUSTODIAL (CURRENT) DRUG THERAPY 10/02/2016 Ot 070.54 CHRONIC HEPATITIS C W/O HEPATIC COMA 10/02/2016 Ot V12.79 PERSONAL HISTORY OTH SPEC DIGESTIVE SYST 10/02/2016 Ot V58.69 OTH MED,LT, CURRENT USE 10/02/2016 Ot 070.70 UNSPECIFIED VIRAL HEPATITIS C WITHOUT HE 10/02/2016 Ot 287.5 THROMBOCYTOPENIA NOS 10/02/2016 Ot 793.82 INCONCLUSIVE MAMMOGRAM 10/02/2016 Ot V76.12 OTH SCREEN MAMMO-MALIGN NEOPLASM OF CARLEE 10/02/2016 MANNY HOOKS, MARLO Summers Ot 070.54 CHRONIC HEPATITIS C W/O HEPATIC COMA 10/02/2016 MARLO BRYANT MD Ot 285.9 ANEMIA NOS 10/02/2016 MARLO BRYANT MD Ot 287.5 THROMBOCYTOPENIA NOS 10/02/2016 MARLO BRYANT MD Ot 571.3 ALCOHOL LIVER DAMAGE NOS 10/02/2016 MARLO BRYANT MD Ot V12.79 PERSONAL HISTORY OTH SPEC DIGESTIVE SYST 10/02/2016 MARLO BRYANT MD Ot V58.69 OTH MED,LT,CURRENT USE 10/02/2016 MARLO BRYANT MD Ot 070.54 CHRONIC HEPATITIS C W/O HEPATIC COMA 10/02/2016 MARLO BRYANT MD Ot 285.9 ANEMIA NOS 10/02/2016 MARLO BRYANT MD Ot 287.5 THROMBOCYTOPENIA NOS 10/02/2016 MARLO BRYANT MD Ot 571.3 ALCOHOL LIVER DAMAGE NOS 10/02/2016 MARLO BRYANT MD Ot V11.3 HX OF ALCOHOLISM 10/02/2016 MARLO BRYANT MD Ot V12.79 PERSONAL HISTORY OTH SPEC DIGESTIVE SYST 10/02/2016 MARLO BRYANT MD Ot V58.69 OTH MED,LT,CURRENT USE 10/02/2016 MELISSA HOOKS, NAWAF Ot V72.84 EXAM PRE-OPERATIVE NOS 10/02/2016 MARLO BRYANT MD Ot 571.5 CIRRHOSIS OF LIVER NOS 10/02/2016 MARLO BRYANT MD Ot 789.2 SPLENOMEGALY 10/02/2016 MARLO BRYANT MD Ot 070.54 CHRONIC HEPATITIS C W/O HEPATIC COMA 10/02/2016 MARLO BRYANT MD Ot 285.9 ANEMIA NOS 10/02/2016 MARLO BRYANT MD Ot 287.5 THROMBOCYTOPENIA NOS 10/02/2016 MARLO BRYANT MD Ot 571.3 ALCOHOL LIVER DAMAGE NOS 10/02/2016 MARLO BRYANT MD Ot V11.3 HX OF ALCOHOLISM 10/02/2016 MARLO BRYANT MD Ot V12.79 PERSONAL HISTORY OTH SPEC DIGESTIVE SYST 10/02/2016 MARLO BRYANT MD Ot V58.69 OTH MED,LT,CURRENT USE 10/02/2016 MARLO BRYANT MD Ot 070.54 CHRONIC HEPATITIS C W/O HEPATIC COMA 10/02/2016 MARLO BRYANT MD Ot 285.9 ANEMIA NOS 10/02/2016 MARLO BRYANT MD Ot 287.5 THROMBOCYTOPENIA NOS 10/02/2016 MARLO BRYANT MD Ot 571.3 ALCOHOL LIVER DAMAGE NOS 10/02/2016 MARLO BRYANT MD Ot V11.3 HX OF ALCOHOLISM 10/02/2016 MARLO BRYANT MD, Ot V12.79 PERSONAL HISTORY OTH SPEC DIGESTIVE SYST 10/02/2016 MARLO BRYANT MD, Ot V58.69 OTH MED,LT,CURRENT USE 10/02/2016 MARCE HOOKS, CHRISTOPHER Evans Ot 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 10/02/2016 CHRISTOPHER ZHENG MD Ot 571.5 CIRRHOSIS OF LIVER NOS 10/02/2016 CHRISTOPHER ZHENG MD, Ot 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 10/02/2016 CHRISTOPHER ZHENG MD, Ot 571.5 CIRRHOSIS OF LIVER NOS 10/02/2016 MARLO BRYANT MD, Ot B18.2 CHRONIC VIRAL HEPATITIS C 10/02/2016 MARLO BRYANT MD, Ot R16.1 SPLENOMEGALY, NOT ELSEWHERE CLASSIFIED 10/02/2016 CHRISTOPHER ZHENG MD, Ot K70.30 ALCOHOLIC CIRRHOSIS OF LIVER WITHOUT ASC 10/02/2016 MARLO BRYANT MD, Ot B18.2 CHRONIC VIRAL HEPATITIS C 10/02/2016 MARLO BRYANT MD, Ot D50.9 IRON DEFICIENCY ANEMIA, UNSPECIFIED 10/02/2016 MARLO BRYANT MD Ot D69.6 THROMBOCYTOPENIA, UNSPECIFIED 10/02/2016 MARLO BRYANT MD, Ot D72.819 DECREASED WHITE BLOOD CELL COUNT, UNSPEC 10/02/2016 MARLO BRYANT MD Ot F10.21 ALCOHOL DEPENDENCE, IN REMISSION 10/02/2016 MARLO BRYANT MD, Ot K70.9 ALCOHOLIC LIVER DISEASE, UNSPECIFIED 10/02/2016 MARLO BRYANT MD, Ot 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 10/02/2016 MARLO BRYANT MD Ot Z87.891 PERSONAL HISTORY OF NICOTINE DEPENDENCE 10/03/2016 YARIEL ROBLES MD, Ot J44.9 CHRONIC OBSTRUCTIVE PULMONARY DISEASE, U 10/03/2016 YARIEL ROBLES MD, Ot K59.00 CONSTIPATION, UNSPECIFIED 10/03/2016 YARIEL ROBLES MD, Ot N39.0 URINARY TRACT INFECTION, SITE NOT SPECIF 10/03/2016 YARIEL ROBLES MD, Ot R10.32 LEFT LOWER QUADRANT PAIN 10/03/2016 YARIEL ROBLES MD, Ot Z79.899 OTHER CUSTODIAL (CURRENT) DRUG THERAPY 10/04/2016 YARIEL ROBLES MD Ot J44.9 CHRONIC OBSTRUCTIVE PULMONARY DISEASE, U 10/04/2016 YARIEL ROBLES MD Ot K59.00 CONSTIPATION, UNSPECIFIED 10/04/2016 YARIEL ROBLES MD Ot N39.0 URINARY TRACT INFECTION, SITE NOT SPECIF 10/04/2016 YARIEL ROBLES MD Ot R10.32 LEFT LOWER QUADRANT PAIN 10/04/2016 YARIEL ROBLES MD, Ot 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 11/19/2016 MARLO BRYANT MD Ot B18.2 CHRONIC VIRAL HEPATITIS C 11/19/2016 MARLO BRYANT MD Ot D50.9 IRON DEFICIENCY ANEMIA, UNSPECIFIED 11/19/2016 MARLO BRYANT MD Ot D69.6 THROMBOCYTOPENIA, UNSPECIFIED 11/19/2016 MARLO BRYANT MD Ot D72.819 DECREASED WHITE BLOOD CELL COUNT, UNSPEC 11/19/2016 MARLO BRYANT MD Ot F10.21 ALCOHOL DEPENDENCE, IN REMISSION 11/19/2016 MARLO BRYANT MD Ot K70.9 ALCOHOLIC LIVER DISEASE, UNSPECIFIED 11/19/2016 MARLO BRYANT MD Ot 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 11/19/2016 MARLO BRYANT MD Ot Z87.891 PERSONAL HISTORY OF NICOTINE DEPENDENCE 11/23/2016 Ot 070.54 CHRONIC HEPATITIS C W/O HEPATIC COMA 11/23/2016 Ot V12.79 PERSONAL HISTORY OTH SPEC DIGESTIVE SYST 11/23/2016 Ot V58.69 OTH MED,LT, CURRENT USE 11/23/2016 Ot 070.70 UNSPECIFIED VIRAL HEPATITIS C WITHOUT HE 11/23/2016 Ot 287.5 THROMBOCYTOPENIA NOS 11/23/2016 Ot 793.82 INCONCLUSIVE MAMMOGRAM 11/23/2016 Ot V76.12 OTH SCREEN MAMMO-MALIGN NEOPLASM OF CARLEE 11/23/2016 MARLO BRYANT MD Ot 070.54 CHRONIC HEPATITIS C W/O HEPATIC COMA 11/23/2016 MARLO BRYANT MD Ot 285.9 ANEMIA NOS 11/23/2016 MARLO BRYANT MD Ot 287.5 THROMBOCYTOPENIA NOS 11/23/2016 MARLO BRYANT MD Ot 571.3 ALCOHOL LIVER DAMAGE NOS 11/23/2016 MARLO BRYANT MD Ot V12.79 PERSONAL HISTORY OTH SPEC DIGESTIVE SYST 11/23/2016 MARLO BRYANT MD Ot V58.69 OTH MED,LT,CURRENT USE 11/23/2016 MARLO BRYANT MD Ot 070.54 CHRONIC HEPATITIS C W/O HEPATIC COMA 11/23/2016 MARLO BRYANT MD Ot 285.9 ANEMIA NOS 11/23/2016 MARLO BRYANT MD Ot 287.5 THROMBOCYTOPENIA NOS 11/23/2016 MARLO BRYANT MD Ot 571.3 ALCOHOL LIVER DAMAGE NOS 11/23/2016 MARLO BRYANT MD Ot V11.3 HX OF ALCOHOLISM 11/23/2016 MARLO BRYANT MD Ot V12.79 PERSONAL HISTORY OTH SPEC DIGESTIVE SYST 11/23/2016 MARLO BRYANT MD Ot V58.69 OTH MED,LT,CURRENT USE 11/23/2016 NAWAF TORRES MD Ot V72.84 EXAM PRE-OPERATIVE NOS 11/23/2016 MARLO BRYANT MD Ot 571.5 CIRRHOSIS OF LIVER NOS 11/23/2016 MARLO BRYANT MD Ot 789.2 SPLENOMEGALY 11/23/2016 MARLO BRYANT MD Ot 070.54 CHRONIC HEPATITIS C W/O HEPATIC COMA 11/23/2016 MARLO BRYANT MD Ot 285.9 ANEMIA NOS 11/23/2016 MARLO BRYANT MD Ot 287.5 THROMBOCYTOPENIA NOS 11/23/2016 MARLO BRYANT MD Ot 571.3 ALCOHOL LIVER DAMAGE NOS 11/23/2016 MARLO BRYANT MD Ot V11.3 HX OF ALCOHOLISM 11/23/2016 MARLO BRYANT MD Ot V12.79 PERSONAL HISTORY OTH SPEC DIGESTIVE SYST 11/23/2016 MARLO BRYANT MD Ot V58.69 OTH MED,LT,CURRENT USE 11/23/2016 MARLO BRYANT MD Ot 070.54 CHRONIC HEPATITIS C W/O HEPATIC COMA 11/23/2016 MARLO BRYANT MD Ot 285.9 ANEMIA NOS 11/23/2016 MARLO BRYANT MD Ot 287.5 THROMBOCYTOPENIA NOS 11/23/2016 MARLO BRYANT MD Ot 571.3 ALCOHOL LIVER DAMAGE NOS 11/23/2016 MARLO BRYANT MD Ot V11.3 HX OF ALCOHOLISM 11/23/2016 MARLO BRYANT MD Ot V12.79 PERSONAL HISTORY OTH SPEC DIGESTIVE SYST 11/23/2016 MARLO BRYANT MD, Ot V58.69 OT MED,LT,CURRENT USE 11/23/2016 CHRISTOPHER ZHENG MD, Ot 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 11/23/2016 CHRISTOPHER ZHENG MD, Ot 571.5 CIRRHOSIS OF LIVER NOS 11/23/2016 CHRISTOPHER ZHENG MD, Ot 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 11/23/2016 CHRISTOPHER ZHENG MD, Ot 571.5 CIRRHOSIS OF LIVER NOS 11/23/2016 MARLO BRYANT MD, Ot B18.2 CHRONIC VIRAL HEPATITIS C 11/23/2016 MARLO BRYANT MD Ot R16.1 SPLENOMEGALY, NOT ELSEWHERE CLASSIFIED 11/23/2016 CHRISTOPHER ZHENG MD, Ot K70.30 ALCOHOLIC CIRRHOSIS OF LIVER WITHOUT ASC 11/23/2016 MARLO BRYANT MD, Ot B18.2 CHRONIC VIRAL HEPATITIS C 11/23/2016 MARLO BRYANT MD Ot D50.9 IRON DEFICIENCY ANEMIA, UNSPECIFIED 11/23/2016 MARLO BRYANT MD Ot D69.6 THROMBOCYTOPENIA, UNSPECIFIED 11/23/2016 MARLO BRYANT MD Ot D72.819 DECREASED WHITE BLOOD CELL COUNT, UNSPEC 11/23/2016 MARLO BRYANT MD Ot F10.21 ALCOHOL DEPENDENCE, IN REMISSION 11/23/2016 MARLO BRYANT MD Ot K70.9 ALCOHOLIC LIVER DISEASE, UNSPECIFIED 11/23/2016 MARLO BRYANT MD Ot Z79.899 OTHER CUSTODIAL (CURRENT) DRUG THERAPY 11/23/2016 MARLO BRYANT MD Ot Z87.891 PERSONAL HISTORY OF NICOTINE DEPENDENCE 11/23/2016 MARLO BRYANT MD, Ot B18.2 CHRONIC VIRAL HEPATITIS C 11/23/2016 MARLO BRYANT MD Ot R16.1 SPLENOMEGALY, NOT ELSEWHERE CLASSIFIED 11/23/2016 CHRISTOPHER ZHENG MD Ot K70.30 ALCOHOLIC CIRRHOSIS OF LIVER WITHOUT ASC 11/23/2016 CHRISTOPHER ZHENG MD Ot 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 11/23/2016 CHRISTOPHER ZHENG MD, Ot 571.5 CIRRHOSIS OF LIVER NOS 11/23/2016 CHRISTOPHER ZHENG MD Ot 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 11/23/2016 CHRISTOPHER ZHENG MD Ot 571.5 CIRRHOSIS OF LIVER NOS 11/24/2016 TRAVIS HOOKS, YARIEL Gutierrez Ot 525.9 DENTAL DISORDER NOS 11/24/2016 MARLO BRYANT MD Ot B18.2 CHRONIC VIRAL HEPATITIS C 11/24/2016 MARLO BRYANT MD, Ot D64.9 ANEMIA, UNSPECIFIED 11/24/2016 MARLO BRYANT MD Ot D69.6 THROMBOCYTOPENIA, UNSPECIFIED 11/24/2016 MARLO BRYANT MD Ot F10.21 ALCOHOL DEPENDENCE, IN REMISSION 11/24/2016 MARLO BRYANT MD Ot K70.9 ALCOHOLIC LIVER DISEASE, UNSPECIFIED 11/24/2016 MARLO BRYANT MD, Ot Z79.899 OTHER CUSTODIAL (CURRENT) DRUG THERAPY 11/24/2016 CHOLOAZUL Mejia Ot J11.1 FLU DUE TO UNIDENTIFIED INFLUENZA VIRUS 11/24/2016 AZUL EMMANUEL Ot R50.9 FEVER, UNSPECIFIED 11/24/2016 AZUL EMMANUEL Ot R51 HEADACHE 12/06/2016 CHRISTOPHER ZHENG MD Ot K70.30 ALCOHOLIC CIRRHOSIS OF LIVER WITHOUT ASC 01/25/2017 CHRISTOPHER ZHENG MD Ot 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 01/25/2017 CHRISTOPHER ZHENG MD Ot 571.5 CIRRHOSIS OF LIVER NOS 01/25/2017 CHRISTOPHER ZHENG MD Ot 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 01/25/2017 CHRISTOPHER ZHENG MD Ot 571.5 CIRRHOSIS OF LIVER NOS 01/25/2017 MARLO BRYANT MD Ot B18.2 CHRONIC VIRAL HEPATITIS C 01/25/2017 MARLO BRYANT MD Ot R16.1 SPLENOMEGALY, NOT ELSEWHERE CLASSIFIED 01/26/2017 MARLO BRYANT MD Ot 070.54 CHRONIC HEPATITIS C W/O HEPATIC COMA 01/26/2017 MARLO BRYANT MD Ot 285.9 ANEMIA NOS 01/26/2017 MARLO BRYANT MD Ot 287.5 THROMBOCYTOPENIA NOS 01/26/2017 MARLO BRYANT MD Ot 571.3 ALCOHOL LIVER DAMAGE NOS 01/26/2017 MARLO BRYANT MD Ot V11.3 HX OF ALCOHOLISM 01/26/2017 MARLO BRYANT MD Ot V12.79 PERSONAL HISTORY OTH SPEC DIGESTIVE SYST 01/26/2017 MARLO BRYANT MD Ot V58.69 OTH MED,LT,CURRENT USE 01/26/2017 MARLO BRYANT MD Ot B18.2 CHRONIC VIRAL HEPATITIS C 01/26/2017 MARLO BRYANT MD Ot D64.9 ANEMIA, UNSPECIFIED 01/26/2017 MARLO BRYANT MD Ot D69.6 THROMBOCYTOPENIA, UNSPECIFIED 01/26/2017 MARLO BRYANT MD Ot F10.21 ALCOHOL DEPENDENCE, IN REMISSION 01/26/2017 MARLO BRYANT MD Ot K70.9 ALCOHOLIC LIVER DISEASE, UNSPECIFIED 01/26/2017 MARLO BRYANT MD Ot 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 01/26/2017 KOSTA MAGANA Ot J01.90 ACUTE SINUSITIS, UNSPECIFIED 01/26/2017 KOSTA MAGANA Ot K08.8 OTHER SPECIFIED DISORDERS OF TEETH AND S 03/01/2017 MARLO BRYANT MD, Ot B18.2 CHRONIC VIRAL HEPATITIS C 03/01/2017 MARLO BRYANT MD Ot D50.9 IRON DEFICIENCY ANEMIA, UNSPECIFIED 03/01/2017 MARLO BRYANT MD Ot D69.6 THROMBOCYTOPENIA, UNSPECIFIED 03/01/2017 MARLO BRYANT MD Ot D72.819 DECREASED WHITE BLOOD CELL COUNT, UNSPEC 03/01/2017 MARLO BRYANT MD Ot F10.21 ALCOHOL DEPENDENCE, IN REMISSION 03/01/2017 MARLO BRYANT MD Ot K70.9 ALCOHOLIC LIVER DISEASE, UNSPECIFIED 03/01/2017 MARLO BRYANT MD Ot 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 03/01/2017 MARLO BRYANT MD Ot Z87.891 PERSONAL HISTORY OF NICOTINE DEPENDENCE 03/02/2017 MARLO BRYANT MD Ot B18.2 CHRONIC VIRAL HEPATITIS C 03/02/2017 MARLO BRYANT MD Ot D50.9 IRON DEFICIENCY ANEMIA, UNSPECIFIED 03/02/2017 MARLO BRYANT MD Ot D69.6 THROMBOCYTOPENIA, UNSPECIFIED 03/02/2017 MARLO BRYANT MD Ot D72.819 DECREASED WHITE BLOOD CELL COUNT, UNSPEC 03/02/2017 MARLO BRYANT MD Ot F10.21 ALCOHOL DEPENDENCE, IN REMISSION 03/02/2017 MARLO BRYANT MD Ot K70.9 ALCOHOLIC LIVER DISEASE, UNSPECIFIED 03/02/2017 MARLO BRYANT MD Ot Z79.899 OTHER CUSTODIAL (CURRENT) DRUG THERAPY 03/02/2017 MARLO BRYANT MD Ot Z87.891 PERSONAL HISTORY OF NICOTINE DEPENDENCE 03/19/2017 MARLO BRYANT MD Ot B18.2 CHRONIC VIRAL HEPATITIS C 03/19/2017 MARLO BRYANT MD Ot D50.9 IRON DEFICIENCY ANEMIA, UNSPECIFIED 03/19/2017 MARLO BRYANT MD Ot D69.6 THROMBOCYTOPENIA, UNSPECIFIED 03/19/2017 MARLO BRYANT MD Ot D72.819 DECREASED WHITE BLOOD CELL COUNT, UNSPEC 03/19/2017 MARLO BRYANT MD Ot F10.21 ALCOHOL DEPENDENCE, IN REMISSION 03/19/2017 MARLO BRYANT MD Ot K70.9 ALCOHOLIC LIVER DISEASE, UNSPECIFIED 03/19/2017 MARLO BRYANT MD Ot 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 03/19/2017 MARLO BRYANT MD Ot Z87.891 PERSONAL HISTORY OF NICOTINE DEPENDENCE 04/03/2017 Ot 070.54 CHRONIC HEPATITIS C W/O HEPATIC COMA 04/03/2017 Ot V12.79 PERSONAL HISTORY OTH SPEC DIGESTIVE SYST 04/03/2017 Ot V58.69 OTH MED,LT, CURRENT USE 04/03/2017 Ot 070.70 UNSPECIFIED VIRAL HEPATITIS C WITHOUT HE 04/03/2017 Ot 287.5 THROMBOCYTOPENIA NOS 04/03/2017 Ot 793.82 INCONCLUSIVE MAMMOGRAM 04/03/2017 Ot V76.12 OTH SCREEN MAMMO-MALIGN NEOPLASM OF CARLEE 04/03/2017 MARLO BRYANT MD Ot 070.54 CHRONIC HEPATITIS C W/O HEPATIC COMA 04/03/2017 MARLO BRYANT MD Ot 285.9 ANEMIA NOS 04/03/2017 MARLO BRYANT MD Ot 287.5 THROMBOCYTOPENIA NOS 04/03/2017 MARLO BRYANT MD Ot 571.3 ALCOHOL LIVER DAMAGE NOS 04/03/2017 MARLO BRYANT MD Ot V12.79 PERSONAL HISTORY OTH SPEC DIGESTIVE SYST 04/03/2017 MARLO BRYANT MD Ot V58.69 OTH MED,LT,CURRENT USE 04/03/2017 MARLO BRYANT MD Ot 070.54 CHRONIC HEPATITIS C W/O HEPATIC COMA 04/03/2017 MARLO BRYANT MD Ot 285.9 ANEMIA NOS 04/03/2017 MARLO BRYANT MD Ot 287.5 THROMBOCYTOPENIA NOS 04/03/2017 MARLO BRYANT MD Ot 571.3 ALCOHOL LIVER DAMAGE NOS 04/03/2017 MARLO BRYANT MD Ot V11.3 HX OF ALCOHOLISM 04/03/2017 MARLO BRYANT MD Ot V12.79 PERSONAL HISTORY OTH SPEC DIGESTIVE SYST 04/03/2017 MARLO BRYANT MD Ot V58.69 OTH MED,LT,CURRENT USE 04/03/2017 MELISSA HOOKS, NAWAF Garvin Ot V72.84 EXAM PRE-OPERATIVE NOS 04/03/2017 MARLO BRYANT MD Ot 571.5 CIRRHOSIS OF LIVER NOS 04/03/2017 MARLO BRYANT MD Ot 789.2 SPLENOMEGALY 04/03/2017 MARLO BRYANT MD Ot 070.54 CHRONIC HEPATITIS C W/O HEPATIC COMA 04/03/2017 MARLO BRYANT MD Ot 285.9 ANEMIA NOS 04/03/2017 MARLO BRYANT MD Ot 287.5 THROMBOCYTOPENIA NOS 04/03/2017 MARLO BRYANT MD Ot 571.3 ALCOHOL LIVER DAMAGE NOS 04/03/2017 MARLO BRYANT MD Ot V11.3 HX OF ALCOHOLISM 04/03/2017 MARLO BRYANT MD Ot V12.79 PERSONAL HISTORY OTH SPEC DIGESTIVE SYST 04/03/2017 MARLO BRYANT MD Ot V58.69 OTH MED,LT,CURRENT USE 04/03/2017 MARLO BRYANT MD Ot 070.54 CHRONIC HEPATITIS C W/O HEPATIC COMA 04/03/2017 MARLO BRYANT MD Ot 285.9 ANEMIA NOS 04/03/2017 MARLO BRYATN MD Ot 287.5 THROMBOCYTOPENIA NOS 04/03/2017 MARLO BRYANT MD Ot 571.3 ALCOHOL LIVER DAMAGE NOS 04/03/2017 MARLO BRYANT MD Ot V11.3 HX OF ALCOHOLISM 04/03/2017 MARLO BRYANT MD Ot V12.79 PERSONAL HISTORY OTH SPEC DIGESTIVE SYST 04/03/2017 MARLO BRYANT MD Ot V58.69 OTH MED,LT,CURRENT USE 04/03/2017 CHRISTOPHER ZHENG MD Ot 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 04/03/2017 CHRISTOPHER ZHENG MD Ot 571.5 CIRRHOSIS OF LIVER NOS 04/03/2017 CHRISTOPHER ZHENG MD Ot 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 04/03/2017 CHRISTOPHER ZHENG MD Ot 571.5 CIRRHOSIS OF LIVER NOS 04/03/2017 MARLO BRYANT MD Ot B18.2 CHRONIC VIRAL HEPATITIS C 04/03/2017 MARLO BRYANT MD Ot R16.1 SPLENOMEGALY, NOT ELSEWHERE CLASSIFIED 04/03/2017 CHRISTOPHER ZHENG MD Ot K70.30 ALCOHOLIC CIRRHOSIS OF LIVER WITHOUT ASC 04/03/2017 MARLO BRYANT MD Ot B18.2 CHRONIC VIRAL HEPATITIS C 04/03/2017 MARLO BRYANT MD Ot D50.9 IRON DEFICIENCY ANEMIA, UNSPECIFIED 04/03/2017 MARLO BRYANT MD Ot D69.6 THROMBOCYTOPENIA, UNSPECIFIED 04/03/2017 MARLO BRYANT MD Ot D72.819 DECREASED WHITE BLOOD CELL COUNT, UNSPEC 04/03/2017 MARLO BRYANT MD Ot F10.21 ALCOHOL DEPENDENCE, IN REMISSION 04/03/2017 MARLO BRYANT MD Ot K70.9 ALCOHOLIC LIVER DISEASE, UNSPECIFIED 04/03/2017 MARLO BRYANT MD Ot 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 04/03/2017 MARLO BRYANT MD Ot Z87.891 PERSONAL HISTORY OF NICOTINE DEPENDENCE 04/06/2017 Ot 070.54 CHRONIC HEPATITIS C W/O HEPATIC COMA 04/06/2017 Ot V12.79 PERSONAL HISTORY OTH SPEC DIGESTIVE SYST 04/06/2017 Ot V58.69 OTH MED,LT, CURRENT USE 04/06/2017 Ot 070.70 UNSPECIFIED VIRAL HEPATITIS C WITHOUT HE 04/06/2017 Ot 287.5 THROMBOCYTOPENIA NOS 04/06/2017 Ot 793.82 INCONCLUSIVE MAMMOGRAM 04/06/2017 Ot V76.12 OTH SCREEN MAMMO-MALIGN NEOPLASM OF CARLEE 04/06/2017 MARLO BRYANT MD Ot 070.54 CHRONIC HEPATITIS C W/O HEPATIC COMA 04/06/2017 MARLO BRYANT MD Ot 285.9 ANEMIA NOS 04/06/2017 MARLO BRYANT MD Ot 287.5 THROMBOCYTOPENIA NOS 04/06/2017 MARLO BRYANT MD Ot 571.3 ALCOHOL LIVER DAMAGE NOS 04/06/2017 MARLO BRYANT MD Ot V12.79 PERSONAL HISTORY OTH SPEC DIGESTIVE SYST 04/06/2017 MARLO BRYANT MD Ot V58.69 OTH MED,LT,CURRENT USE 04/06/2017 MARLO BRYANT MD Ot 070.54 CHRONIC HEPATITIS C W/O HEPATIC COMA 04/06/2017 MARLO BRYANT MD Ot 285.9 ANEMIA NOS 04/06/2017 MARLO BRYANT MD Ot 287.5 THROMBOCYTOPENIA NOS 04/06/2017 MARLO BRYANT MD Ot 571.3 ALCOHOL LIVER DAMAGE NOS 04/06/2017 MARLO BRYANT MD Ot V11.3 HX OF ALCOHOLISM 04/06/2017 MANNY HOOKS MARLO Kristopher Ot V12.79 PERSONAL HISTORY OTH SPEC DIGESTIVE SYST 04/06/2017 MANNY HOOKS MARLO Kristopher Ot V58.69 OTH MED,LT,CURRENT USE 04/06/2017 MELISSA HOOKS, NAWAF Garvin Ot V72.84 EXAM PRE-OPERATIVE NOS 04/06/2017 MARLO BRYANT MD Ot 571.5 CIRRHOSIS OF LIVER NOS 04/06/2017 MARLO BRYANT MD Ot 789.2 SPLENOMEGALY 04/06/2017 MARLO BRYANT MD Ot 070.54 CHRONIC HEPATITIS C W/O HEPATIC COMA 04/06/2017 MARLO BRYANT MD Ot 285.9 ANEMIA NOS 04/06/2017 MARLO BRYANT MD Ot 287.5 THROMBOCYTOPENIA NOS 04/06/2017 MARLO BRYANT MD Ot 571.3 ALCOHOL LIVER DAMAGE NOS 04/06/2017 MANNY HOOKS MARLO Kristopher Ot V11.3 HX OF ALCOHOLISM 04/06/2017 MANNY HOOKS MARLO Kristopher Ot V12.79 PERSONAL HISTORY OTH SPEC DIGESTIVE SYST 04/06/2017 MANNY HOOKS MARLO Kristopher Ot V58.69 OTH MED,LT,CURRENT USE 04/06/2017 MANNY HOOKS MARLO Kristopher Ot 070.54 CHRONIC HEPATITIS C W/O HEPATIC COMA 04/06/2017 MARLO BRYANT MD Ot 285.9 ANEMIA NOS 04/06/2017 MARLO BRYANT MD Ot 287.5 THROMBOCYTOPENIA NOS 04/06/2017 MARLO BRYANT MD Ot 571.3 ALCOHOL LIVER DAMAGE NOS 04/06/2017 MANNY HOOKS MARLO Kristopher Ot V11.3 HX OF ALCOHOLISM 04/06/2017 MANNY HOOKS MARLO Kristopher Ot V12.79 PERSONAL HISTORY OTH SPEC DIGESTIVE SYST 04/06/2017 MANNY HOOKS MARLO Kristopher Ot V58.69 OTH MED,LT,CURRENT USE 04/06/2017 MARCE HOOKS, CHRISTOPHER Evans Ot 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 04/06/2017 CHRISTOPHER ZHENG MD Ot 571.5 CIRRHOSIS OF LIVER NOS 04/06/2017 CHRISTOPHER ZHENG MD Ot 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 04/06/2017 CHRISTOPHER ZHENG MD Ot 571.5 CIRRHOSIS OF LIVER NOS 04/06/2017 MARLO BRYANT MD Ot B18.2 CHRONIC VIRAL HEPATITIS C 04/06/2017 MARLO BRYANT MD Ot R16.1 SPLENOMEGALY, NOT ELSEWHERE CLASSIFIED 04/06/2017 MARCE HOOKS, CHRISTOPHER Evans Ot K70.30 ALCOHOLIC CIRRHOSIS OF LIVER WITHOUT ASC 04/06/2017 MARLO BRYANT MD Ot B18.2 CHRONIC VIRAL HEPATITIS C 04/06/2017 MARLO BRYANT MD Ot D50.9 IRON DEFICIENCY ANEMIA, UNSPECIFIED 04/06/2017 MARLO BRYANT MD Ot D69.6 THROMBOCYTOPENIA, UNSPECIFIED 04/06/2017 MARLO BRYANT MD Ot D72.819 DECREASED WHITE BLOOD CELL COUNT, UNSPEC 04/06/2017 MARLO BRYANT MD Ot F10.21 ALCOHOL DEPENDENCE, IN REMISSION 04/06/2017 MARLO BRYANT MD Ot K70.9 ALCOHOLIC LIVER DISEASE, UNSPECIFIED 04/06/2017 MARLO BRYANT MD Ot 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 04/06/2017 MARLO BRYANT MD Ot Z87.891 PERSONAL HISTORY OF NICOTINE DEPENDENCE 04/12/2017 Ot 070.54 CHRONIC HEPATITIS C W/O HEPATIC COMA 04/12/2017 Ot V12.79 PERSONAL HISTORY OTH SPEC DIGESTIVE SYST 04/12/2017 Ot V58.69 OTH MED,LT, CURRENT USE 04/12/2017 Ot 070.70 UNSPECIFIED VIRAL HEPATITIS C WITHOUT HE 04/12/2017 Ot 287.5 THROMBOCYTOPENIA NOS 04/12/2017 Ot 793.82 INCONCLUSIVE MAMMOGRAM 04/12/2017 Ot V76.12 OTH SCREEN MAMMO-MALIGN NEOPLASM OF CARLEE 04/12/2017 MARLO BRYANT MD Ot 070.54 CHRONIC HEPATITIS C W/O HEPATIC COMA 04/12/2017 MARLO BRYANT MD Ot 285.9 ANEMIA NOS 04/12/2017 MARLO BRYANT MD Ot 287.5 THROMBOCYTOPENIA NOS 04/12/2017 MARLO BRYANT MD Ot 571.3 ALCOHOL LIVER DAMAGE NOS 04/12/2017 MARLO BRYANT MD Ot V12.79 PERSONAL HISTORY OTH SPEC DIGESTIVE SYST 04/12/2017 MARLO BRYANT MD Ot V58.69 OTH MED,LT,CURRENT USE 04/12/2017 MARLO BRYANT MD Ot 070.54 CHRONIC HEPATITIS C W/O HEPATIC COMA 04/12/2017 MARLO BRYANT MD Ot 285.9 ANEMIA NOS 04/12/2017 MARLO BRYANT MD Ot 287.5 THROMBOCYTOPENIA NOS 04/12/2017 MARLO BRYANT MD Ot 571.3 ALCOHOL LIVER DAMAGE NOS 04/12/2017 MANNY HOOKS MARLO Kristopher Ot V11.3 HX OF ALCOHOLISM 04/12/2017 MARLO BRYANT MD Ot V12.79 PERSONAL HISTORY OTH SPEC DIGESTIVE SYST 04/12/2017 MANNY HOOKS MARLO Kristopher Ot V58.69 OTH MED,LT,CURRENT USE 04/12/2017 MELISSA HOOKS, NAWAF Garvin Ot V72.84 EXAM PRE-OPERATIVE NOS 04/12/2017 MARLO BRYANT MD Ot 571.5 CIRRHOSIS OF LIVER NOS 04/12/2017 MARLO BRYANT MD Ot 789.2 SPLENOMEGALY 04/12/2017 MARLO BRYANT MD Ot 070.54 CHRONIC HEPATITIS C W/O HEPATIC COMA 04/12/2017 MARLO BRYANT MD Ot 285.9 ANEMIA NOS 04/12/2017 MARLO BRYANT MD Ot 287.5 THROMBOCYTOPENIA NOS 04/12/2017 MARLO BRYANT MD Ot 571.3 ALCOHOL LIVER DAMAGE NOS 04/12/2017 MARLO BRYANT MD Ot V11.3 HX OF ALCOHOLISM 04/12/2017 MANNY HOOKS MARLO Kristopher Ot V12.79 PERSONAL HISTORY OTH SPEC DIGESTIVE SYST 04/12/2017 MANNY HOOKS MARLO Kristopher Ot V58.69 OTH MED,LT,CURRENT USE 04/12/2017 MARLO BRYANT MD Ot 070.54 CHRONIC HEPATITIS C W/O HEPATIC COMA 04/12/2017 MARLO BRYANT MD Ot 285.9 ANEMIA NOS 04/12/2017 MARLO BRYANT MD Ot 287.5 THROMBOCYTOPENIA NOS 04/12/2017 MARLO BRYANT MD Ot 571.3 ALCOHOL LIVER DAMAGE NOS 04/12/2017 MANNY HOOKS MARLO Kristopher Ot V11.3 HX OF ALCOHOLISM 04/12/2017 MANNY HOOKS MARLO Kristopher Ot V12.79 PERSONAL HISTORY OTH SPEC DIGESTIVE SYST 04/12/2017 MANNY HOOKS MARLO Kristopher Ot V58.69 OTH MED,LT,CURRENT USE 04/12/2017 CHRISTOPHER ZHENG MD Ot 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 04/12/2017 CHRISTOPHER ZHENG MD Ot 571.5 CIRRHOSIS OF LIVER NOS 04/12/2017 CHRISTOPHER ZHENG MD Ot 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 04/12/2017 CHRISTOPHER ZHENG MD Ot 571.5 CIRRHOSIS OF LIVER NOS 04/12/2017 MARLO BRYANT MD Ot B18.2 CHRONIC VIRAL HEPATITIS C 04/12/2017 MARLO BRYANT MD Ot R16.1 SPLENOMEGALY, NOT ELSEWHERE CLASSIFIED 04/12/2017 CHRISTOPHER ZHENG MD Ot K70.30 ALCOHOLIC CIRRHOSIS OF LIVER WITHOUT ASC 04/12/2017 MARLO BRYANT MD Ot B18.2 CHRONIC VIRAL HEPATITIS C 04/12/2017 MARLO BRYANT MD Ot D50.9 IRON DEFICIENCY ANEMIA, UNSPECIFIED 04/12/2017 MARLO BRYANT MD Ot D69.6 THROMBOCYTOPENIA, UNSPECIFIED 04/12/2017 MARLO BRYANT MD Ot D72.819 DECREASED WHITE BLOOD CELL COUNT, UNSPEC 04/12/2017 MARLO BRYANT MD Ot F10.21 ALCOHOL DEPENDENCE, IN REMISSION 04/12/2017 MARLO BRYANT MD, Ot K70.9 ALCOHOLIC LIVER DISEASE, UNSPECIFIED 04/12/2017 MARLO BRYANT MD Ot 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 04/12/2017 MARLO BRYANT MD, Ot Z87.891 PERSONAL HISTORY OF NICOTINE DEPENDENCE 04/18/2017 HEATHER FINE Ot Z12.31 ENCNTR SCREEN MAMMOGRAM FOR MALIGNANT NE 04/20/2017 MARLO BRYANT MD Ot R16.1 SPLENOMEGALY, NOT ELSEWHERE CLASSIFIED 05/09/2017 MARLO BRYANT MD, Ot R16.1 SPLENOMEGALY, NOT ELSEWHERE CLASSIFIED 05/12/2017 MARLO BRYANT MD Ot B18.2 CHRONIC VIRAL HEPATITIS C 05/12/2017 MARLO BRYANT MD Ot D50.9 IRON DEFICIENCY ANEMIA, UNSPECIFIED 05/12/2017 MARLO BRYANT MD Ot D69.6 THROMBOCYTOPENIA, UNSPECIFIED 05/12/2017 MARLO BRYANT MD Ot D72.819 DECREASED WHITE BLOOD CELL COUNT, UNSPEC 05/12/2017 MARLO BRYANT MD Ot F10.21 ALCOHOL DEPENDENCE, IN REMISSION 05/12/2017 MARLO BRYANT MD Ot K70.9 ALCOHOLIC LIVER DISEASE, UNSPECIFIED 05/12/2017 MARLO BRYANT MD Ot Z79.899 OTHER CUSTODIAL (CURRENT) DRUG THERAPY 05/12/2017 MARLO BRYANT MD Ot Z87.891 PERSONAL HISTORY OF NICOTINE DEPENDENCE 10/11/2017 Ot 070.54 CHRONIC HEPATITIS C W/O HEPATIC COMA 10/11/2017 Ot V12.79 PERSONAL HISTORY OTH SPEC DIGESTIVE SYST 10/11/2017 Ot V58.69 OTH MED,LT, CURRENT USE 10/11/2017 Ot 793.82 INCONCLUSIVE MAMMOGRAM 10/11/2017 Ot V76.12 OTH SCREEN MAMMO-MALIGN NEOPLASM OF CARLEE 10/11/2017 MANNY HOOKS, MARLO Summers Ot 070.54 CHRONIC HEPATITIS C W/O HEPATIC COMA 10/11/2017 MARLO BRYANT MD Ot 285.9 ANEMIA NOS 10/11/2017 MARLO BRYANT MD Ot 287.5 THROMBOCYTOPENIA NOS 10/11/2017 MARLO BRYANT MD Ot 571.3 ALCOHOL LIVER DAMAGE NOS 10/11/2017 MARLO BRYANT MD Ot V12.79 PERSONAL HISTORY OTH SPEC DIGESTIVE SYST 10/11/2017 MARLO BRYANT MD Ot V58.69 OTH MED,LT,CURRENT USE 10/11/2017 MARLO BRYANT MD Ot 070.54 CHRONIC HEPATITIS C W/O HEPATIC COMA 10/11/2017 MARLO BRYANT MD Ot 285.9 ANEMIA NOS 10/11/2017 MARLO BRYANT MD Ot 287.5 THROMBOCYTOPENIA NOS 10/11/2017 MARLO BRYANT MD Ot 571.3 ALCOHOL LIVER DAMAGE NOS 10/11/2017 MARLO BRYANT MD Ot V11.3 HX OF ALCOHOLISM 10/11/2017 MARLO BRYANT MD Ot V12.79 PERSONAL HISTORY OTH SPEC DIGESTIVE SYST 10/11/2017 MARLO BRYANT MD Ot V58.69 OTH MED,LT,CURRENT USE 10/11/2017 NAWAF TORRES MD Ot V72.84 EXAM PRE-OPERATIVE NOS 10/11/2017 MARLO BRYANT MD Ot 571.5 CIRRHOSIS OF LIVER NOS 10/11/2017 MARLO BRYANT MD Ot 789.2 SPLENOMEGALY 10/11/2017 MARLO BRYANT MD Ot 070.54 CHRONIC HEPATITIS C W/O HEPATIC COMA 10/11/2017 MARLO BRYANT MD Ot 285.9 ANEMIA NOS 10/11/2017 MARLO BRYATN MD Ot 287.5 THROMBOCYTOPENIA NOS 10/11/2017 MARLO BRYANT MD Ot 571.3 ALCOHOL LIVER DAMAGE NOS 10/11/2017 MARLO BRYANT MD Ot V11.3 HX OF ALCOHOLISM 10/11/2017 MARLO BRYANT MD Ot V12.79 PERSONAL HISTORY OTH SPEC DIGESTIVE SYST 10/11/2017 MARLO BRYANT MD Ot V58.69 OTH MED,LT,CURRENT USE 10/11/2017 MARLO BRYANT MD Ot 070.54 CHRONIC HEPATITIS C W/O HEPATIC COMA 10/11/2017 MARLO BRYANT MD Ot 285.9 ANEMIA NOS 10/11/2017 MARLO BRYANT MD Ot 287.5 THROMBOCYTOPENIA NOS 10/11/2017 MARLO BRYANT MD Ot 571.3 ALCOHOL LIVER DAMAGE NOS 10/11/2017 MARLO BRYANT MD Ot V11.3 HX OF ALCOHOLISM 10/11/2017 MARLO BRYANT MD Ot V12.79 PERSONAL HISTORY OTH SPEC DIGESTIVE SYST 10/11/2017 MARLO BRYANT MD Ot V58.69 OTH MED,LT,CURRENT USE 10/11/2017 CHRISTOPHER ZHENG MD Ot 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2 CHRONIC VIRAL HEPATITIS C 10/11/2017 ROXANA BENÍTEZ MD Ot D50.9 IRON DEFICIENCY ANEMIA, UNSPECIFIED 10/11/2017 ROXANA BENÍTEZ MD Ot D69.6 THROMBOCYTOPENIA, UNSPECIFIED 10/11/2017 ROXANA BENÍTEZ MD Ot D72.819 DECREASED WHITE BLOOD CELL COUNT, UNSPEC 10/11/2017 ROXANA BENÍTEZ MD Ot F10.21 ALCOHOL DEPENDENCE, IN REMISSION 10/11/2017 ROXANA BENÍTEZ MD Ot 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 10/11/2017 ROXANA BENÍTEZ MD Ot K70.30 ALCOHOLIC CIRRHOSIS OF LIVER WITHOUT ASC 10/11/2017 ROXANA BENÍTEZ MD Ot R16.1 SPLENOMEGALY, NOT ELSEWHERE CLASSIFIED 10/11/2017 ROXANA BENÍTEZ MD Ot Z79.899 OTHER CUSTODIAL (CURRENT) DRUG THERAPY 10/11/2017 ROXANA BENÍTEZ MD Ot Z87.891 PERSONAL HISTORY OF NICOTINE DEPENDENCE 10/15/2017 ANTOINE, ARMIDA [place] CERTIFIED NURSES AIDE Ot 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 10/15/2017 ANTOINE, ARMIDA [place] CERTIFIED NURSES AIDE Ot K70.30 ALCOHOLIC CIRRHOSIS OF LIVER WITHOUT ASC 10/15/2017 ANTOINE, ARMIDA [place] CERTIFIED NURSES AIDE Ot R16.1 SPLENOMEGALY, NOT ELSEWHERE CLASSIFIED 11/14/2017 ANTOINE, ARMIDA [place] CERTIFIED NURSES AIDE Ot 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 11/14/2017 ANTOINE, ARMIDA [place] CERTIFIED NURSES AIDE Ot K70.30 ALCOHOLIC CIRRHOSIS OF LIVER WITHOUT ASC 11/14/2017 ANTOINE, ARMIDA [place] CERTIFIED NURSES AIDE Ot R16.1 SPLENOMEGALY, NOT ELSEWHERE CLASSIFIED 12/05/2017 ROXANA BENÍTEZ MD Ot B18.2 CHRONIC VIRAL HEPATITIS C 12/05/2017 ROXANA BENÍTEZ MD Ot D50.9 IRON DEFICIENCY ANEMIA, UNSPECIFIED 12/05/2017 ROXANA BENÍTEZ MD Ot D69.6 THROMBOCYTOPENIA, UNSPECIFIED 12/05/2017 ROXANA BENÍTEZ MD Ot D72.819 DECREASED WHITE BLOOD CELL COUNT, UNSPEC 12/05/2017 ROXANA BENÍTEZ MD Ot F10.21 ALCOHOL DEPENDENCE, IN REMISSION 12/05/2017 ROXANA BENÍTEZ MD Ot 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 12/05/2017 ROXANA BENÍTEZ MD Ot K70.30 ALCOHOLIC CIRRHOSIS OF LIVER WITHOUT ASC 12/05/2017 ROXANA BENÍTEZ MD Ot R16.1 SPLENOMEGALY, NOT ELSEWHERE CLASSIFIED 12/05/2017 ROXANA BENÍTEZ MD Ot Z79.899 OTHER CUSTODIAL (CURRENT) DRUG THERAPY 12/05/2017 ROXANA BENÍTEZ MD Ot Z87.891 PERSONAL HISTORY OF NICOTINE DEPENDENCE 03/08/2018 ROXANA BENÍTEZ MD Ot B18.2 CHRONIC VIRAL HEPATITIS C 03/08/2018 ROXANA BENÍTEZ MD Ot D50.9 IRON DEFICIENCY ANEMIA, UNSPECIFIED 03/08/2018 ROXANA BENÍTEZ MD Ot D69.6 THROMBOCYTOPENIA, UNSPECIFIED 03/08/2018 ROXANA BENÍTEZ MD Ot D72.819 DECREASED WHITE BLOOD CELL COUNT, UNSPEC 03/08/2018 ROXANA BENÍTEZ MD Ot F10.21 ALCOHOL DEPENDENCE, IN REMISSION 03/08/2018 ROXANA BENÍTEZ MD Ot 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 03/08/2018 ROXANA BENÍTEZ MD Ot K70.30 ALCOHOLIC CIRRHOSIS OF LIVER WITHOUT ASC 03/08/2018 ROXANA BENÍTEZ MD Ot R16.1 SPLENOMEGALY, NOT ELSEWHERE CLASSIFIED 03/08/2018 ROXANA BENÍTEZ MD Ot Z79.899 OTHER CUSTODIAL (CURRENT) DRUG THERAPY 03/08/2018 ROXANA BENÍTEZ MD Ot Z87.891 PERSONAL HISTORY OF NICOTINE DEPENDENCE 03/12/2018 ROXANA BENÍTEZ MD Ot B18.2 CHRONIC VIRAL HEPATITIS C 03/12/2018 ROXANA BENÍTEZ MD Ot D50.9 IRON DEFICIENCY ANEMIA, UNSPECIFIED 03/12/2018 ROXANA BENÍTEZ MD Ot D69.6 THROMBOCYTOPENIA, UNSPECIFIED 03/12/2018 ROXANA BENÍTEZ MD Ot D72.819 DECREASED WHITE BLOOD CELL COUNT, UNSPEC 03/12/2018 ROXANA BENÍTEZ MD Ot F10.21 ALCOHOL DEPENDENCE, IN REMISSION 03/12/2018 ROXANA BENÍTEZ MD Ot 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 03/12/2018 ROXANA BENÍTEZ MD Ot K70.30 ALCOHOLIC CIRRHOSIS OF LIVER WITHOUT ASC 03/12/2018 ROXANA BENÍTEZ MD Ot R16.1 SPLENOMEGALY, NOT ELSEWHERE CLASSIFIED 03/12/2018 ROXANA BENÍTEZ MD Ot 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 03/12/2018 ROXANA BENÍTEZ MD Ot Z87.891 PERSONAL HISTORY OF NICOTINE DEPENDENCE 03/12/2018 MARLO BRYANT MD Ot 070.54 CHRONIC HEPATITIS C W/O HEPATIC COMA 03/12/2018 MARLO BRYANT MD Ot 285.9 ANEMIA NOS 03/12/2018 MARLO BRYANT MD Ot 287.5 THROMBOCYTOPENIA NOS 03/12/2018 MARLO BRYANT MD Ot 571.3 ALCOHOL LIVER DAMAGE NOS 03/12/2018 MARLO BRYANT MD Ot V12.79 PERSONAL HISTORY OTH SPEC DIGESTIVE SYST 03/12/2018 MARLO BRYANT MD Ot V58.69 OTH MED,LT,CURRENT USE 03/12/2018 MARLO BRYANT MD Ot 070.54 CHRONIC HEPATITIS C W/O HEPATIC COMA 03/12/2018 MARLO BRYANT MD Ot 285.9 ANEMIA NOS 03/12/2018 MARLO BRYANT MD Ot 287.5 THROMBOCYTOPENIA NOS 03/12/2018 MARLO BRYANT MD Ot 571.3 ALCOHOL LIVER DAMAGE NOS 03/12/2018 MANNY HOOKS MARLO Kristopher Ot V11.3 HX OF ALCOHOLISM 03/12/2018 MARLO BRYANT MD Ot V12.79 PERSONAL HISTORY OTH SPEC DIGESTIVE SYST 03/12/2018 MANNY HOOKS MARLO Kristopher Ot V58.69 OTH MED,LT,CURRENT USE 03/12/2018 MELISSA HOOKS, NAWAF Garvin Ot V72.84 EXAM PRE-OPERATIVE NOS 03/12/2018 MARLO BRYANT MD Ot 571.5 CIRRHOSIS OF LIVER NOS 03/12/2018 MARLO BRYANT MD Ot 789.2 SPLENOMEGALY 03/12/2018 MARLO BRYANT MD Ot 070.54 CHRONIC HEPATITIS C W/O HEPATIC COMA 03/12/2018 MARLO BRYANT MD Ot 285.9 ANEMIA NOS 03/12/2018 MARLO BRYANT MD Ot 287.5 THROMBOCYTOPENIA NOS 03/12/2018 MARLO BRYANT MD Ot 571.3 ALCOHOL LIVER DAMAGE NOS 03/12/2018 MARLO BRYANT MD Ot V11.3 HX OF ALCOHOLISM 03/12/2018 MANNY HOOKS MARLO Kristopher Ot V12.79 PERSONAL HISTORY OTH SPEC DIGESTIVE SYST 03/12/2018 MANNY HOOKS MARLO Kristopher Ot V58.69 OTH MED,LT,CURRENT USE 03/12/2018 MARLO BRYANT MD Ot 070.54 CHRONIC HEPATITIS C W/O HEPATIC COMA 03/12/2018 MARLO BRYANT MD Ot 285.9 ANEMIA NOS 03/12/2018 MARLO BRYANT MD Ot 287.5 THROMBOCYTOPENIA NOS 03/12/2018 MARLO BRYANT MD Ot 571.3 ALCOHOL LIVER DAMAGE NOS 03/12/2018 MANNY HOOKS MARLO Kristopher Ot V11.3 HX OF ALCOHOLISM 03/12/2018 MANNY HOOKS MARLO Kristopher Ot V12.79 PERSONAL HISTORY OTH SPEC DIGESTIVE SYST 03/12/2018 MANNY HOOKS MARLO Kristopher Ot V58.69 OTH MED,LT,CURRENT USE 03/12/2018 MARCE HOOKS, CHRISTOPHER Evans Ot 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 03/12/2018 CHRISTOPHER ZHENG MD Ot 571.5 CIRRHOSIS OF LIVER NOS 03/12/2018 CHRISTOPHER ZHENG MD Ot 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 03/12/2018 CHRISTOPHER ZHENG MD Ot 571.5 CIRRHOSIS OF LIVER NOS 03/12/2018 MARLO RBYANT MD Ot B18.2 CHRONIC VIRAL HEPATITIS C 03/12/2018 MARLO BRYANT MD Ot R16.1 SPLENOMEGALY, NOT ELSEWHERE CLASSIFIED 03/12/2018 CHRISTOPHER ZHENG MD Ot K70.30 ALCOHOLIC CIRRHOSIS OF LIVER WITHOUT ASC 03/12/2018 MARLO BRYANT MD Ot R16.1 SPLENOMEGALY, NOT ELSEWHERE CLASSIFIED 03/12/2018 RODY HEATHERNORY RUVALCABA Ot Z12.31 ENCNTR SCREEN MAMMOGRAM FOR MALIGNANT NE 03/12/2018 ARMIDA SCHULTZ APRN Ot 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 03/12/2018 ARMIDA SCHULTZ APRN Ot K70.30 ALCOHOLIC CIRRHOSIS OF LIVER WITHOUT ASC 03/12/2018 ARMIDA SCHULTZ APRN Ot R16.1 SPLENOMEGALY, NOT ELSEWHERE CLASSIFIED 03/12/2018 ROXANA BENÍTEZ MD Ot B18.2 CHRONIC VIRAL HEPATITIS C 03/12/2018 ROXANA BENÍTEZ MD Ot D50.9 IRON DEFICIENCY ANEMIA, UNSPECIFIED 03/12/2018 ROXANA BENÍTEZ MD Ot D69.6 THROMBOCYTOPENIA, UNSPECIFIED 03/12/2018 ROXANA BENÍTEZ MD Ot D72.819 DECREASED WHITE BLOOD CELL COUNT, UNSPEC 03/12/2018 ROXANA BENÍTEZ MD Ot F10.21 ALCOHOL DEPENDENCE, IN REMISSION 03/12/2018 ROXANA BENÍTEZ MD Ot 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 03/12/2018 ROXANA BENÍTEZ MD Ot K70.30 ALCOHOLIC CIRRHOSIS OF LIVER WITHOUT ASC 03/12/2018 ROXANA BENÍTEZ MD Ot R16.1 SPLENOMEGALY, NOT ELSEWHERE CLASSIFIED 03/12/2018 ROXANA BENÍTEZ MD Ot 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 03/12/2018 ROXANA BENÍTEZ MD Ot Z87.891 PERSONAL HISTORY OF NICOTINE DEPENDENCE 05/13/2018 ROXANA BENÍTEZ MD Ot B18.2 CHRONIC VIRAL HEPATITIS C 05/13/2018 ROXANA BENÍTEZ MD Ot D50.9 IRON DEFICIENCY ANEMIA, UNSPECIFIED 05/13/2018 ROXANA BENÍTEZ MD Ot D69.6 THROMBOCYTOPENIA, UNSPECIFIED 05/13/2018 ROXANA BENÍTEZ MD Ot D72.819 DECREASED WHITE BLOOD CELL COUNT, UNSPEC 05/13/2018 ROXANA BENÍTEZ MD Ot F10.21 ALCOHOL DEPENDENCE, IN REMISSION 05/13/2018 ROXANA BENÍTEZ MD Ot 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 05/13/2018 ROXANA BENÍTEZ MD, Ot K70.30 ALCOHOLIC CIRRHOSIS OF LIVER WITHOUT ASC 05/13/2018 ROXANA BENÍTEZ MD, Ot R16.1 SPLENOMEGALY, NOT ELSEWHERE CLASSIFIED 05/13/2018 ROXANA BENÍTEZ MD, Ot Z79.899 OTHER CUSTODIAL (CURRENT) DRUG THERAPY 05/13/2018 ROXANA BENÍTEZ MD, Ot Z87.891 PERSONAL HISTORY OF NICOTINE DEPENDENCE Procedures Code Description Performed By Performed On 45.16 ESOPHAGOGASTRODUODENOSCOPY [ EGD] W/CLOSE 11/02/2010 54.91 PERCUTANEOUS ABDOMINAL DRAINAGE 11/02/2010 45.16 ESOPHAGOGASTRODUODENOSCOPY [ EGD] W/CLOSE 04/12/2012 21809 UA W/ CULTURE IF INDICATED 05/23/2012 09700 CULTURE URINE 05/26/2012 45.13 OTHER ENDOSCOPY OF SM INTEST 08/26/2012 82012 UA W/ CULTURE IF INDICATED 11/13/2012 89771 MAMMOGRAM, SCREENING 11/14/2012 68153 XRAY KNEE LEFT, 1 OR 2 VIEWS 12/31/2012 54406 ROUTINE VENIPUNCTURE 05/28/2013 45865 URINE DRUG SCREEN (IN-HOUSE ) 05/28/2013 38288 CMP 05/29/2013 [id number] GFR CALC (RESULT ONLY) 05/29/2013 52466 CBC 05/29/2013 13044 FERRITIN 05/29/2013 90506 HEP C PCR QUANT (SERIAL) 06/07/2013 Miroslava Griffin 06/30/2013 28246 ROUTINE VENIPUNCTURE 08/25/2013 09002 URINE DRUG SCREEN (IN-HOUSE ) 08/25/2013 66301 CBC 08/25/2013 Nawaf Chung 09/10/2013 [employer] DRUG SCREEN 11/23/2013 15001 ROUTINE VENIPUNCTURE 12/15/2013 [id number] GFR CALC (RESULT ONLY) 12/15/2013 04754 CMP 12/15/2013 81593 CBC 12/15/2013 17807 CULTURE URINE 05/05/2014 11027 UA W/ CULTURE IF INDICATED 05/05/2014 78651 PULMONARY FUNCTION TEST (IN- HOUSE) 05/20/2014 38931 RESPIRATORY FLOW VOLUME LOOP 05/20/2014 75030 ROUTINE VENIPUNCTURE 08/24/2014 55448 CBC 08/25/2014 77289 PT/INR 08/26/2014 Results Test Result Range Complete urinalysis with reflex to culture - 06/10/16 18:15 Urine color determination YELLOW NRG Urine clarity determination SLIGHTLY CLOUDY NRG Urine pH measurement by test strip 6 5-9 Specific gravity of urine by test strip 1.010 1.016- 1.022 Urine protein assay by test strip, semi-quantitative NEGATIVE NEGATIVE Urine glucose detection by automated test strip NEGATIVE NEGATIVE Erythrocytes detection in urine sediment by light microscopy NEGATIVE NEGATIVE Urine ketones detection by automated test strip 2+ NEGATIVE Urine nitrite detection by test strip NEGATIVE NEGATIVE Urine total bilirubin detection by test strip NEGATIVE NEGATIVE Urine urobilinogen measurement by automated test strip (mass/volume) NORMAL NORMAL Urine leukocyte esterase detection by dipstick 3+ NEGATIVE Automated urine sediment erythrocyte count by microscopy (number/high power field) NONE NRG Automated urine sediment leukocyte count by microscopy (number/high power field ) RARE NRG Bacteria detection in urine sediment by light microscopy TRACE NRG Squamous epithelial cells detection in urine sediment by light microscopy RARE NRG Crystals detection in urine sediment by light microscopy NONE NRG Casts detection in urine sediment by light microscopy NONE NRG Mucus detection in urine sediment by light microscopy NEGATIVE NRG Complete urinalysis with reflex to culture NO NRG Complete urinalysis with reflex to culture - 10/01/16 23:04 Urine color determination SARITA NRG Urine clarity determination VERY CLOUDY NRG Urine pH measurement by test strip 6.5 5-9 Specific gravity of urine by test strip 1.020 1.016- 1.022 Urine protein assay by test strip, semi-quantitative 2+ NEGATIVE Urine glucose detection by automated test strip NEGATIVE NEGATIVE Erythrocytes detection in urine sediment by light microscopy 1+ NEGATIVE Urine ketones detection by automated test strip 1+ NEGATIVE Urine nitrite detection by test strip POSITIVE NEGATIVE Urine total bilirubin detection by test strip 1+ NEGATIVE Urine urobilinogen measurement by automated test strip (mass/volume) 4 mg/dL NORMAL Urine leukocyte esterase detection by dipstick 3+ NEGATIVE Automated urine sediment erythrocyte count by microscopy (number/high power field) [HPF] NRG Automated urine sediment leukocyte count by microscopy (number/high power field ) [HPF] NRG Bacteria detection in urine sediment by light microscopy LARGE NRG Crystals detection in urine sediment by light microscopy NONE NRG Casts detection in urine sediment by light microscopy NONE NRG Mucus detection in urine sediment by light microscopy NEGATIVE NRG Complete urinalysis with reflex to culture YES NRG Bacterial urine culture - 10/01/16 23:04 Bacterial urine culture [id number] NRG COLONY COUNT >100,000/ML NR FTX;REPORTABLE SENSITIVITY REPORTED 10/03/16 10:55 [facility] Bacterial susceptibility panel - 10/01/16 23:04 Gentamicin susceptibility test by minimum inhibitory concentration < = NRG Trimethoprim/sulfamethoxazole susceptibility test by minimum inhibitoryconcentration <= NRG Ampicillin susceptibility test by minimum inhibitory concentration < = NRG Tobramycin susceptibility test by minimum inhibitory concentration < = NRG Cefazolin susceptibility test by minimum inhibitory concentration < = NRG Ceftriaxone susceptibility test by minimum inhibitory concentration <= NRG Ampicillin/sulbactam susceptibility test by minimum inhibitory concentration <= NRG Piperacillin/tazobactam susceptibility test by minimum inhibitory concentration <= NRG Ciprofloxacin susceptibility test by minimum inhibitory concentration <= NRG Meropenem susceptibility test by minimum inhibitory concentration < = NRG Nitrofurantoin susceptibility test by minimum inhibitory concentration <= NRG Aztreonam susceptibility test by minimum inhibitory concentration < = NRG Extended spectrum beta lactamase (ESBL) producing bacteria susceptibility test by minimum inhibitory concentration - NR Complete blood count (CBC) with automated white blood cell (WBC) differential - 10/01/16 23:15 Blood leukocytes automated count (number/volume) 4.4 10*3/uL 4.3-11.0 Blood erythrocytes automated count (number/volume) 4.49 10*6/uL 4.35-5.85 Venous blood hemoglobin measurement (mass/volume) 12.9 g/dL 11.5-16.0 Blood hematocrit (volume fraction) 37 % 35-52 Automated erythrocyte mean corpuscular volume 83 [foz_us] 80-99 Automated erythrocyte mean corpuscular hemoglobin (mass per erythrocyte) 29 pg 25-34 Automated erythrocyte mean corpuscular hemoglobin concentration measurement ( mass/volume) 35 g/dL 32-36 Automated erythrocyte distribution width ratio 14.2 % 10.0-14.5 Automated blood platelet count (count/volume) 61 10*3/uL 130-400 Automated blood platelet mean volume measurement 10.3 [foz_us] 7.4-10.4 Automated blood neutrophils/100 leukocytes 77 % 42-75 Automated blood lymphocytes/100 leukocytes 11 % 12-44 Blood monocytes/100 leukocytes 10 % 0-12 Automated blood eosinophils/100 leukocytes 2 % 0-10 Automated blood basophils/100 leukocytes 0 % 0-10 Blood neutrophils automated count (number/volume) 3.4 10*3 1.8-7.8 Blood lymphocytes automated count (number/volume) 0.5 10*3 1.0-4.0 Blood monocytes automated count (number/volume) 0.4 10*3 0.0-1.0 Automated eosinophil count 0.1 10*3/uL 0.0-0.3 Automated blood basophil count (count/volume) 0.0 10*3/uL 0.0-0.1 PT panel in platelet poor plasma by coagulation assay - 10/01/16 23:15 Prothrombin time (PT) in platelet poor plasma by coagulation assay 16.4 s 12.2-14.7 INR in platelet poor plasma or blood by coagulation assay 1.4 0.8-1.4 Comprehensive metabolic panel - 10/01/16 23:15 Serum or plasma sodium measurement (moles/volume) 139 mmol/L 135-145 Serum or plasma potassium measurement (moles/volume) 3.6 mmol/L 3.6-5.0 Serum or plasma chloride measurement (moles/volume) 110 mmol/L 98-107 Carbon dioxide 17 mmol/L 21-32 Serum or plasma anion gap determination (moles/volume) 12 mmol/L 5-14 Serum or plasma urea nitrogen measurement (mass/volume) 15 mg/dL 7-18 Serum or plasma creatinine measurement (mass/volume) 0.86 mg/dL 0.60-1.30 Serum or plasma urea nitrogen/creatinine mass ratio 17 NRG Serum or plasma creatinine measurement with calculation of estimated glomerular filtration rate > NRG Serum or plasma glucose measurement (mass/volume) 121 mg/dL 70-105 Serum or plasma calcium measurement (mass/volume) 9.3 mg/dL 8.5-10.1 Serum or plasma total bilirubin measurement (mass/volume) 1.4 mg/dL 0.1-1.0 Serum or plasma alkaline phosphatase measurement (enzymatic activity/volume) 84 U/L 40-136 Serum or plasma aspartate aminotransferase measurement (enzymatic activity/ volume) 29 U/L 5-34 Serum or plasma alanine aminotransferase measurement (enzymatic activity/volume ) 22 U/L 0-55 Serum or plasma protein measurement (mass/volume) 7.1 g/dL 6.4-8.2 Serum or plasma albumin measurement (mass/volume) 4.1 g/dL 3.2-4.5 Magnesium - 10/01/16 23:15 Magnesium 2.1 mg/dL 1.8-2.4 Lipase - 10/01/16 23:15 Lipase 36 U/L 8-78 Serum or plasma C reactive protein measurement (mass/volume) - 10/01/16 23:15 Serum or plasma C reactive protein measurement (mass/volume) 0.13 mg /dL 0.00-0.50 Pap Lb, HPV-hr - 04/02/17 16:28 HPV, high-risk Negative Negative DIAGNOSIS: Comment Specimen adequacy: Comment Clinician provided ICD10: Comment Performed by: Comment . . Note: Comment PAP TEST W/ HPV REGARDLESS - 04/02/17 16:28 DIAGNOSIS: NRG Specimen adequacy: NRG Clinician provided ICD10: NRG Performed by: NRG . . NRG Note: NRG HPV, high-risk Negative Negative CULTURE, URINE - 07/16/17 14:32 CULTURE, URINE, ROUTINE SEE NOTE NRG PDM - 09 PANEL (PROFILE 1) - 03/04/18 14:49 Prescribed Drug 1 Ativan(TM) NRG Creatinine 15.0 mg/dL > or=20.0 pH 6.05 4.5 - 9.0 Oxidant NEGATIVE mcg/mL <200 Amphetamines NEGATIVE ng/mL <500 medMATCH Amphetamines CONSISTENT NRG Benzodiazepines NEGATIVE ng/mL <100 medMATCH Benzodiazepines INCONSISTENT NRG Marijuana Metabolite NEGATIVE ng/mL <20 medMATCH Marijuana Metab CONSISTENT NRG Cocaine Metabolite NEGATIVE ng/mL <150 medMATCH Cocaine Metab CONSISTENT NRG Opiates NEGATIVE ng/mL <100 medMATCH Opiates CONSISTENT NRG Oxycodone POSITIVE ng/mL <100 COMMENT NRG Prescribed Drug 2 Oxycodone NRG Specific [place] 1.003 > or=1.003 Noroxycodone NEGATIVE ng/mL <50 medMATCH Noroxycodone CONSISTENT NRG Oxycodone NEGATIVE ng/mL <50 medMATCH Oxycodone CONSISTENT NRG Oxymorphone 68 ng/mL <50 medMATCH Oxymorphone CONSISTENT NRG Barbiturates NEGATIVE ng/mL <300 medMATCH Barbiturates CONSISTENT NRG Methadone Metabolite NEGATIVE ng/mL <100 medMATCH Methadone Metab CONSISTENT NRG Phencyclidine NEGATIVE ng/mL <25 medMATCH Phencyclidine CONSISTENT NRG Encounters ACCT No. Visit Date/Time Discharge Status Pt. Type Provider Facility Loc./Unit Complaint [id number] 10/22/2014 17:25:00 10/22/2014 23:59:59 CLS Outpatient RODYHEATHER HERMOSILLO APRN S [id number] 09/24/2014 16:40:00 09/24/2014 23:59:59 CLS Outpatient RODY CARINA SAVAGEA S [id number] 08/24/2014 17:15:00 08/24/2014 23:59:59 CLS Outpatient RODY CARINA SAVAGEA S [id number] 07/30/2014 17:34:00 07/30/2014 23:59:59 CLS Outpatient HEATHER FINE APRN S [id number] 05/20/2014 16:02:00 05/20/2014 23:59:59 CLS Outpatient AGUILAR MIKE TENA [id number] 05/05/2014 16:45:00 05/05/2014 23:59:59 CLS Outpatient DEMONDTRAM Sanchez APRN [id number] 04/22/2014 14:28:00 04/22/2014 23:59:59 CLS Outpatient CARINA FINE APRNA S [id number] 03/12/2014 17:42:00 03/12/2014 23:59:59 CLS Outpatient RODY CARINA SAVAGEA S [id number] 12/15/2013 14:44:00 12/15/2013 23:59:59 CLS Outpatient CARINA FINE APRNA S [id number] 11/19/2013 15:56:00 11/19/2013 23:59:59 CLS Outpatient CARINA FINE APRNA S [id number] 08/25/2013 15:40:00 08/25/2013 23:59:59 CLS Outpatient CARINA FINE APRNA S [id number] 08/23/2013 14:39:00 08/23/2013 23:59:59 CLS Outpatient CARINA FINE APRNA S [id number] 08/14/2013 13:35:00 08/14/2013 23:59:59 CLS Outpatient MERCEDES JENNINGS DDS [id number] 06/30/2013 09:40:00 06/30/2013 23:59:59 CLS Outpatient RODY JANETTEHEATHER S [id number] 05/28/2013 16:45:00 05/28/2013 23:59:59 CLS Outpatient MIKE AGUILAR DO [id number] 03/17/2013 15:15:00 03/17/2013 23:59:59 CLS Outpatient MIKE AGUILAR DO [id number] 11/13/2012 13:24:00 11/13/2012 23:59:59 CLS Outpatient DEMOND JANETTE TRAM A [id number] 10/01/2012 08:32:00 10/01/2012 23:59:59 CLS Outpatient MIROSLAVA HILL MD [id number] 09/18/2012 13:26:00 09/18/2012 23:59:59 CLS Outpatient [id number] 07/09/2012 14:49:00 07/09/2012 23:59:59 CLS Outpatient RODY SAVAGE HEATHER S [id number] 05/23/2012 17:22:00 05/23/2012 23:59:59 CLS Outpatient RODY SAVAGE HEATHER S [id number] 12/31/2012 15:11:00 Document Registration [id number] 12/02/2012 09:05:00 Document Registration [id number] 05/13/2018 00:26:00 05/13/2018 23:59:59 CLS Preadmit ROXANA BENÍTEZ MD [facility] ONC [id number] 03/07/2018 14:01:00 03/12/2018 00:01:00 DIS Outpatient ROXANA BENÍTEZ MD [facility] ONC [id number] 10/11/2017 10:16:00 12/05/2017 00:01:00 DIS Outpatient ROXANA BENÍTEZ MD [facility] ONC [id number] 10/11/2017 09:27:00 10/11/2017 23:59:59 CLS Outpatient ARMIDA SCHULTZ CERTIFIED NURSES AIDE [facility] RAD ALCOHOLIC CIRRHOSIS OF LIVER WO ASCITES [id number] 03/01/2017 14:52:00 05/12/2017 00:01:00 DIS Outpatient MARLO BRYANT MD [facility] ONC [id number] 04/19/2017 08:49:00 04/19/2017 23:59:59 CLS Outpatient MARLO BRYANT MD [facility] RAD SPLENOMEGALY [id number] 04/12/2017 14:28:00 04/12/2017 23:59:59 CLS Outpatient HEATHER FINE [facility] RAD Z12.31 BREAST CANCER SCREENING [id number] 08/21/2016 14:28:00 11/19/2016 00:01:00 DIS Outpatient MARLO BRYANT MD [facility] ONC [id number] 10/01/2016 21:32:00 10/02/2016 01:53:00 DIS Emergency YARIEL ROBLES MD [facility] ER COLD SWEATS, N/V, LEG NUMBNESS [id number] 08/16/2016 09:19:00 08/16/2016 23:59:59 CLS Outpatient CHRISTOPHER ZHENG MD [facility] RAD ALCOHLIC CIRRHOSIS OF LIVER WO ASCITES (HCC) [id number] 06/10/2016 15:16:00 06/10/2016 19:17:00 DIS Emergency CHOLOAZUL [facility] ER HEAD/NECK/BACK/LEG PAIN [id number] 01/20/2016 13:39:00 04/19/2016 00:01:00 DIS Outpatient MARLO BRYANT MD [facility] ONC [id number] 03/01/2016 16:54:00 03/01/2016 19:49:00 DIS Emergency KOSTA MAGANA [facility] ER DENTAL PAIN [id number] 01/24/2016 10:08:00 01/24/2016 23:59:59 CLS Outpatient MARLO BRYANT MD [facility] RAD SPLEENOMEGALY [id number] 10/21/2015 13:12:00 01/11/2016 00:01:00 DIS Outpatient MARLO BRYANT MD [facility] ONC [id number] 03/23/2015 10:42:00 05/12/2015 00:01:00 DIS Outpatient MARLO BRYANT MD [facility] ONC [id number] 05/09/2015 14:07:00 05/09/2015 15:49:00 DIS Emergency STU YAN MD [facility] ER FOOT PAIN [id number] 11/23/2014 14:06:00 01/24/2015 00:01:00 DIS Outpatient MARLO BRYANT MD [facility] ONC [id number] 01/14/2015 21:38:00 01/15/2015 00:50:00 DIS Emergency YARIEL ROBLES MD [facility] ER DENTAL PAIN [id number] 01/08/2015 13:52:00 01/08/2015 23:59:59 CLS Outpatient CHRISTOPHER ZHENG MD [facility] LAB [id number] 01/07/2015 07:06:00 01/07/2015 23:59:59 CLS Outpatient CHRISTOPHER ZHENG MD [facility] RAD CIRRHOSIS OF LIVER [id number] 07/25/2014 13:24:00 07/25/2014 15:17:00 DIS Emergency STU YAN MD [facility] ER POST OP ABD BLOATING [id number] 07/20/2014 14:30:00 07/20/2014 23:59:59 CLS Outpatient MARLO BRYANT MD [facility] ONC [id number] 07/12/2014 11:48:00 07/12/2014 15:00:00 DIS Emergency DORIS GARCIA CERTIFIED NURSES AIDE [facility] ER VOMITING BLOOD [id number] 06/20/2014 04:41:00 06/20/2014 06:36:00 DIS Emergency VINCE HANNA DO [facility] ER PAIN ALL OVER,VOMITING, FLU SHOT ON 06-15-14 [id number] 06/18/2014 17:54:00 06/18/2014 20:23:00 DIS Emergency DORIS GARCIA APRN [facility] ER BODY ACHES, ABD PAIN [id number] 06/01/2014 14:33:00 06/01/2014 23:59:59 CLS Outpatient MARLO BRYANT MD [facility] ONC [id number] 03/21/2014 19:28:00 03/21/2014 20:47:00 DIS Emergency AMY MCCLAIN MD [facility] ER VOMITING [id number] 02/21/2014 17:35:00 02/21/2014 18:16:00 DIS Emergency DORIS GARCIA APRN [facility] ER COUGH [id number] 01/20/2014 13:50:00 01/20/2014 23:59:59 CLS Outpatient MARLO BRYANT MD [facility] ONC [id number] 01/04/2014 13:47:00 01/04/2014 15:32:00 DIS Emergency KOSTA MAGANA [facility] ER DENTAL PAIN [id number] 01/03/2014 16:44:00 01/03/2014 17:04:00 DIS Emergency DORIS GARCIA APRN [facility] ER L SIDE DENTAL PAIN [id number] 12/29/2013 09:10:00 12/29/2013 23:59:59 CLS Outpatient MARLO BRYANT MD [facility] RAD SPLEENOMEGALY [id number] 12/03/2013 14:13:00 12/03/2013 23:59:59 CLS Outpatient MARLO BRYANT MD [facility] ONC [id number] 09/18/2013 07:34:00 09/18/2013 11:00:00 DIS Outpatient NAWAF TORRES MD [facility] SDC ESOPHAGEAL [id number] 09/17/2013 07:34:00 09/17/2013 23:59:59 CLS Outpatient NAWAF TORRES MD [facility] PREOP ESOPHAGEAL [id number] 08/24/2013 13:09:00 08/24/2013 17:57:00 DIS Emergency TETO BLAND MD [facility] ER DENTAL PAIN [id number] 12/23/2012 13:16:00 12/23/2012 23:59:59 CLS Outpatient MARLO BRYANT MD [facility] ONC [id number] 07/30/2014 13:27:00 Document Registration [id number] 08/25/2012 20:42:00 Document Registration [id number] 05/08/2012 10:20:00 Document Registration [id number] 05/08/2012 09:47:00 Document Registration [id number] 04/11/2012 22:56:00 Document Registration [id number] 04/10/2012 08:23:00 Document Registration [id number] 01/04/2011 09:00:00 Document Registration [id number] 10/31/2010 18:36:00 Document Registration [id number] 04/19/2010 20:52:00 Document Registration [id number] 01/21/2010 00:53:00 Document Registration [id number] 01/16/2010 00:53:00 Document Registration [id number] 05/10/2015 02:26:08 ACT Document Registration [id number] 04/05/2017 15:09:00 Document Registration [id number] 07/29/2018 15:20:00 07/29/2018 23:59:59 [facility] HEATHER FINE APRN [facility] [id number] 03/04/2018 14:00:00 Document Registration [id number] 07/16/2017 13:40:00 Document Registration [id number] 04/02/2017 15:20:00 Document Registration
[2018-08-05] MEDS ORDERED: KETOROLAC 30 MG/ML VIAL IVP ONE (04:00)
--- OUTSIDE RECORDS SUMMARY | 2018-08-05 04:33 | XMS REPORT | Clinical Summary ---
Author Author [facility] Organization [facility] Address Unknown Phone Unavailable Care Team Providers Care Continuous Process Rotary Drum Tanner Name Role Phone Xuan Solomon MD Unavailable [...] in the Health Information Management department at [phone] for further assistance in locating additional records.[facility] Allergies Comments Active Allergy Reactions Severity Noted [...] Taken Vital Sign Reading 10/18/2017 1:55 PM CASEWORK SPECIALIST Blood Pressure 117/71 10/18/2017 1:55 PM CASEWORK SPECIALIST Pulse 98 10/18/2017 1:55 PM CASEWORK SPECIALIST Temperature 36.5 C (97.7 F) 10/18/2017 1:55 PM CASEWORK SPECIALIST Respiratory Rate 16 10/18/2017 1:55 PM CASEWORK SPECIALIST Oxygen Saturation 100% - Inhaled Oxygen - Concentration 10/18/2017 1:55 PM CASEWORK SPECIALIST Weight 46.4 kg (102 lb 6.4 oz) 10/18/2017 1:55 PM CASEWORK SPECIALIST Height 157.5 cm (5' 2") 10/18/2017 1:55 PM CASEWORK SPECIALIST Body Mass Index 18.73 Plan of Treatment [...] on file. For more information, please contact: [facility] [address] [place] [address] Date Inactivated Comments Code Status Date Activated 07/16/2014 8:24 PM Full Code 07/12/2014 5:13 PM Provider has discussed Code Status No, more discussion w/Patient or Family? needed
--- OUTSIDE RECORDS SUMMARY | 2018-08-05 04:33 | XMS REPORT | Encounter Summary ---
Author Author [facility] Organization [facility] Address Unknown Phone Unavailable Care Team Providers Care Pile Driving Supervisor Name Role Phone Xuan Solomon MD Unavailable [...] Date Type Department Jayla Adkins MD [address] [place] [address] Other 05/08/2018 Telephone [facility] [address] [place] [address] Social History Date Tobacco Use [...] her that orders were sent to [facility] for imaging and labs. We will scheduled EGD when she is due in October 2018 * Telephone Encounter - Ava Desir - 05/08/2018 8:28 AM CDT Pt called and she will get lab and US results from [facility]. Also, pt wants to know if she needs EGD again in October 2018 in this encounter Plan of Treatment Not on fileas of this encounter Visit Diagnoses Not on filein this encounter
--- OUTSIDE RECORDS SUMMARY | 2018-08-05 04:33 | XMS REPORT | Encounter Summary ---
Author Author [facility] Organization [facility] Address Unknown Phone Unavailable Care Team Providers Care Outboard Technician Name Role Phone Xuan Solomon MD [...] 05/13/2018 Orders Only [facility] [address] [place] [address] Social History Date Tobacco Use [...] Laurel Emery on 05/13/2018. Performing Organization Address [facility] Phone Number LABDE INTERFACE * CBC AND [...] Laurel Emery on 05/13/2018. Performing Organization Address City[place] Phone Number LABDE INTERFACE in this encounter Visit Diagnoses Diagnosis Alcoholic cirrhosis of liver without ascites (HCC) Alcoholic cirrhosis of liver in this encounter
[2018-08-05] MEDS ORDERED: LORazepam INJ 2 MG/ML (ATIVAN) VIAL IVP ONE (05:00)
--- OUTSIDE RECORDS SUMMARY | 2018-08-05 05:08 | XMS REPORT | Continuity of Care Document ---
Author Author [facility] Address Unknown Phone Unavailable Allergies Active Description Code Type Severity Reaction Onset Reported/Identified Relationship to Patient Clinical Status Yes Sulfa (Sulfonamide Antibiotics) Drug Allergy N/A N/A 10/31/2010 Yes sulfa drug Drug Allergy 10/31/2010 Yes Sulfa (Sulfonamide Antibiotics) [id number] Drug Allergy Moderate HIVES Medications There is [...] DO, MIKE K 785.1 PALPITATIONS 10/31/2010 RODY DIRECTOR OF PSYCHOLOGY, HEATHER S 285.9 ANEMIA UNSPECIFIED 10/31/2010 RODY DIRECTOR OF PSYCHOLOGY, HEATHER S 780.79 fatigue 10/31/2010 RODY DIRECTOR OF PSYCHOLOGY, HEATHER S 785.1 PALPITATIONS 10/31/2010 WHITE DDS, MERCEDES D 285.9 ANEMIA UNSPECIFIED 10/31/2010 WHITE DDS, MERCEDES D 780.79 fatigue 10/31/2010 WHITE DDS, MERCEDES D 785.1 PALPITATIONS 10/31/2010 RODY DIRECTOR OF PSYCHOLOGY, HEATHER S 285.9 ANEMIA UNSPECIFIED 10/31/2010 RODY DIRECTOR OF PSYCHOLOGY, HEATHER S 780.79 fatigue 10/31/2010 RODY DIRECTOR OF PSYCHOLOGY, HEATHER S 785.1 PALPITATIONS 10/31/2010 RODY DIRECTOR OF PSYCHOLOGY, HEATHER S 285.9 ANEMIA UNSPECIFIED 10/31/2010 RODY DIRECTOR OF PSYCHOLOGY, HEATHER S 780.79 fatigue 10/31/2010 RODY DIRECTOR OF PSYCHOLOGY, HEATHER S 785.1 PALPITATIONS 10/31/2010 RODY DIRECTOR OF PSYCHOLOGY, HEATHER S 285.9 ANEMIA UNSPECIFIED 10/31/2010 RODY DIRECTOR OF PSYCHOLOGY, HEATHER S 780.79 fatigue 10/31/2010 RODY DIRECTOR OF PSYCHOLOGY, HEATHER S 785.1 PALPITATIONS 10/31/2010 RODY DIRECTOR OF PSYCHOLOGY, HEATHER S 285.9 ANEMIA UNSPECIFIED 10/31/2010 RODY DIRECTOR OF PSYCHOLOGY, HEATHER S 780.79 fatigue 10/31/2010 RODY DIRECTOR OF PSYCHOLOGY, HEATHER S 785.1 PALPITATIONS 10/31/2010 RODY DIRECTOR OF PSYCHOLOGY, HEATHER S 285.9 ANEMIA UNSPECIFIED 10/31/2010 RODY DIRECTOR OF PSYCHOLOGY, HEATHER S 780.79 fatigue 10/31/2010 RODY DIRECTOR OF PSYCHOLOGY, HEATHER S 785.1 PALPITATIONS 10/31/2010 RODY DIRECTOR OF PSYCHOLOGY, HEATHER S 285.9 ANEMIA UNSPECIFIED 10/31/2010 RODY DIRECTOR OF PSYCHOLOGY, HEATHER S 780.79 fatigue 10/31/2010 RODY DIRECTOR OF PSYCHOLOGY, HEATHER S 785.1 PALPITATIONS 10/31/2010 DEMOND DIRECTOR OF PSYCHOLOGY, TRAM A 285.9 ANEMIA UNSPECIFIED 10/31/2010 DEMOND DIRECTOR OF PSYCHOLOGY, TRAM A 780.79 fatigue 10/31/2010 DEMOND DIRECTOR OF PSYCHOLOGY, TRAM A 785.1 PALPITATIONS 10/31/2010 AGUILAR DO, MIKE K 285.9 ANEMIA UNSPECIFIED 10/31/2010 AGUILAR DO, MIKE K 780.79 fatigue 10/31/2010 AGUILAR DO, MIKE K 785.1 PALPITATIONS 10/31/2010 RODY DIRECTOR OF PSYCHOLOGY, HEATHER S 285.9 ANEMIA UNSPECIFIED 10/31/2010 RODY DIRECTOR OF PSYCHOLOGY, HEATHER S 780.79 fatigue 10/31/2010 RODY DIRECTOR OF PSYCHOLOGY, HEATHER S 785.1 PALPITATIONS 10/31/2010 RODY DIRECTOR OF PSYCHOLOGY, HEATHER S 285.9 ANEMIA UNSPECIFIED 10/31/2010 RODY DIRECTOR OF PSYCHOLOGY, HEATHER S 780.79 fatigue 10/31/2010 RODY DIRECTOR OF PSYCHOLOGY, HEATHER S 785.1 PALPITATIONS 10/31/2010 RODY DIRECTOR OF PSYCHOLOGY, HEATHER S 285.9 ANEMIA UNSPECIFIED 10/31/2010 RODY DIRECTOR OF PSYCHOLOGY, HEATHER S 780.79 fatigue 10/31/2010 RODY DIRECTOR OF PSYCHOLOGY, HEATHER S 785.1 PALPITATIONS 10/31/2010 RDOY DIRECTOR OF PSYCHOLOGY, HEATHER S 285.9 ANEMIA UNSPECIFIED 10/31/2010 RODY DIRECTOR OF PSYCHOLOGY, HEATHER S 780.79 fatigue 10/31/2010 RODY DIRECTOR OF PSYCHOLOGY, HEATHER S 785.1 PALPITATIONS 10/31/2010 RODY DIRECTOR OF PSYCHOLOGY, HEATHER S 285.9 ANEMIA UNSPECIFIED 10/31/2010 RODY DIRECTOR OF PSYCHOLOGY, HEATHER S 780.79 FATIGUE 10/31/2010 RODY DIRECTOR OF PSYCHOLOGY, HEATHER S 785.1 PALPITATIONS 11/03/2010 Ot 263.9 [...] CIRRHOSIS OF LIVER WITHOUT ALCOHOL 11/08/2010 DEMOND DIRECTOR OF PSYCHOLOGY, TRAM A 571.5 CIRRHOSIS OF LIVER WITHOUT ALCOHOL 11/08/2010 AGUILAR DO, MIKE K 571.5 CIRRHOSIS OF LIVER WITHOUT ALCOHOL 11/08/2010 RODY DIRECTOR OF PSYCHOLOGY, HEATHER S 571.5 CIRRHOSIS OF LIVER WITHOUT ALCOHOL 11/08/2010 RODY DIRECTOR OF PSYCHOLOGY, HEATHER S 571.5 CIRRHOSIS OF LIVER WITHOUT ALCOHOL 11/08/2010 RODY DIRECTOR OF PSYCHOLOGY, HEATHER S 571.5 CIRRHOSIS OF LIVER WITHOUT ALCOHOL 11/08/2010 RODY DIRECTOR OF PSYCHOLOGY, HEATHER S 571.5 CIRRHOSIS OF LIVER WITHOUT ALCOHOL 11/08/2010 RODY DIRECTOR OF PSYCHOLOGY, HEATHER S 571.5 CIRRHOSIS OF LIVER WITHOUT ALCOHOL 11/11/2010 RODY DIRECTOR OF PSYCHOLOGY, HEATHER S 070.54 HEPATITIS C CHRONIC 11/11/2010 [...] DDS 070.54 HEPATITIS C CHRONIC 11/11/2010 RODY DIRECTOR OF PSYCHOLOGY, HEATHER S 070.54 HEPATITIS C CHRONIC 11/11/2010 RODY DIRECTOR OF PSYCHOLOGY, HEATHER S 070.54 HEPATITIS C CHRONIC 11/11/2010 RODY DIRECTOR OF PSYCHOLOGY, HEATHER S 070.54 HEPATITIS C CHRONIC 11/11/2010 RODY DIRECTOR OF PSYCHOLOGY, HEATHER S 070.54 HEPATITIS C CHRONIC 11/11/2010 RODY DIRECTOR OF PSYCHOLOGY, HEATHER S 070.54 HEPATITIS C CHRONIC 11/11/2010 RODY DIRECTOR OF PSYCHOLOGY, HEATHER S 070.54 HEPATITIS C CHRONIC 11/11/2010 DEMOND SAVAGE, TRAM A 070.54 HEPATITIS C CHRONIC 11/11/2010 AGUILAR DO MIKE K 070.54 HEPATITIS C CHRONIC 11/11/2010 RODY DIRECTOR OF PSYCHOLOGY, HEATHER S 070.54 HEPATITIS C CHRONIC 11/11/2010 RODY DIRECTOR OF PSYCHOLOGY, HEATHER S 070.54 HEPATITIS C CHRONIC 11/11/2010 RODY DIRECTOR OF PSYCHOLOGY, HEATHER S 070.54 HEPATITIS C CHRONIC 11/11/2010 RODY DIRECTOR OF PSYCHOLOGY, HEATHER S 070.54 HEPATITIS C CHRONIC 11/11/2010 RODY DIRECTOR OF PSYCHOLOGY, HEATHER S 070.54 HEPATITIS C CHRONIC 10/25/2011 [...] CERVICAL CANCER SCREENING (PAP SMEAR) 10/25/2011 RODY DIRECTOR OF PSYCHOLOGY, HEATHER S V76.19 OTHER SCREENING BREAST EXAMINATION 10/25/2011 RODY DIRECTOR OF PSYCHOLOGY HEATHER S V76.2 CERVICAL CANCER SCREENING (PAP SMEAR) 10/25/2011 RODY DIRECTOR OF PSYCHOLOGY, HEATHER S V76.19 OTHER SCREENING BREAST EXAMINATION 10/25/2011 RODY DIRECTOR OF PSYCHOLOGY, HEATHER S V76.2 CERVICAL CANCER SCREENING (PAP SMEAR) 10/25/2011 RODY DIRECTOR OF PSYCHOLOGY HEATHER S V76.19 OTHER SCREENING BREAST EXAMINATION 10/25/2011 RODY DIRECTOR OF PSYCHOLOGY HEATHER S V76.2 CERVICAL CANCER SCREENING (PAP SMEAR) 10/25/2011 RODY DIRECTOR OF PSYCHOLOGY HEATHER S V76.19 OTHER SCREENING BREAST EXAMINATION 10/25/2011 RODY DIRECTOR OF PSYCHOLOGY HEATHER S V76.2 CERVICAL CANCER SCREENING (PAP SMEAR) 10/25/2011 RODY DIRECTOR OF PSYCHOLOGY, HEATHER S V76.19 OTHER SCREENING BREAST EXAMINATION 10/25/2011 RODY DIRECTOR OF PSYCHOLOGY, HEATHER S V76.2 CERVICAL CANCER SCREENING (PAP SMEAR) 10/25/2011 RODY DIRECTOR OF PSYCHOLOGY, HEATHER S V76.19 OTHER SCREENING BREAST EXAMINATION 10/25/2011 RODY DIRECTOR OF PSYCHOLOGY, HEATHER S V76.2 CERVICAL CANCER SCREENING (PAP SMEAR) 10/25/2011 DEMOND SAVAGE TRAM A V76.19 OTHER SCREENING BREAST EXAMINATION 10/25/2011 DEMOND APRN, TRAM A V76.2 CERVICAL CANCER SCREENING (PAP SMEAR) 10/25/2011 LAUREN DO MIKE K V76.19 OTHER SCREENING BREAST EXAMINATION 10/25/2011 AGUILAR DO MIKE K V76.2 CERVICAL CANCER SCREENING (PAP SMEAR) 10/25/2011 RODY DIRECTOR OF PSYCHOLOGY, HEATHER S V76.19 OTHER SCREENING BREAST EXAMINATION 10/25/2011 RODY DIRECTOR OF PSYCHOLOGY, HEATHER S V76.2 CERVICAL CANCER SCREENING (PAP SMEAR) 10/25/2011 RODY DIRECTOR OF PSYCHOLOGY, HEATHER S V76.19 OTHER SCREENING BREAST EXAMINATION 10/25/2011 RODY DIRECTOR OF PSYCHOLOGY, HEATHER S V76.2 CERVICAL CANCER SCREENING (PAP SMEAR) 10/25/2011 RODY DIRECTOR OF PSYCHOLOGY, HEATHER S V76.19 OTHER SCREENING BREAST EXAMINATION 10/25/2011 RODY SAVAGE, HEATHER S V76.2 CERVICAL CANCER SCREENING (PAP SMEAR) 10/25/2011 RODY DIRECTOR OF PSYCHOLOGY, HEATHER S V76.19 OTHER SCREENING BREAST EXAMINATION 10/25/2011 RODY DIRECTOR OF PSYCHOLOGY, HEATHER S V76.2 CERVICAL CANCER SCREENING (PAP SMEAR) 10/25/2011 RODY DIRECTOR OF PSYCHOLOGY, HEATHER S V76.19 OTHER SCREENING BREAST EXAMINATION 10/25/2011 RODY DIRECTOR OF PSYCHOLOGY, HEATHER S V76.2 CERVICAL CANCER SCREENING (PAP [...] S 729.82 CRAMP OF LIMB 11/16/2011 RODY DIRECTOR OF PSYCHOLOGY, HEATHER S 729.82 CRAMP OF LIMB 11/16/2011 RODY DIRECTOR OF PSYCHOLOGY, HEATHER S 729.82 CRAMP OF LIMB 11/16/2011 RODY DIRECTOR OF PSYCHOLOGY, HEATHER S 729.82 CRAMP OF LIMB 11/16/2011 RODY DIRECTOR OF PSYCHOLOGY, HEATHER S 729.82 CRAMP OF LIMB 11/16/2011 TRAM LAGOS APRN A 729.82 CRAMP OF LIMB 11/16/2011 PRACHI AGUILAR DOA K 729.82 CRAMP OF LIMB 11/16/2011 RODY DIRECTOR OF PSYCHOLOGY, HEATHER S 729.82 CRAMP OF LIMB 11/16/2011 RODY DIRECTOR OF PSYCHOLOGY, HEATHER S 729.82 CRAMP OF LIMB 11/16/2011 RODY DIRECTOR OF PSYCHOLOGY, HEATHER S 729.82 CRAMP OF LIMB 11/16/2011 RODY DIRECTOR OF PSYCHOLOGY, HEATHER S 729.82 CRAMP OF LIMB 11/16/2011 RODY DIRECTOR OF PSYCHOLOGY, HEATHER S 729.82 CRAMP OF LIMB 02/09/2012 RODY DIRECTOR OF PSYCHOLOGY, HEATHER S 788.1 DYSURIA 02/09/2012 788.1 DYSURIA 02/09/2012 MIROSLAVA HILL MD 788.1 DYSURIA 02/09/2012 DEMONDPATRICIA SAVAGE TRAM A 788.1 DYSURIA 02/09/2012 788.1 DYSURIA 02/09/2012 788.1 DYSURIA 02/09/2012 AGUILAR DO, MIKE K 788.1 DYSURIA 02/09/2012 AGUILAR DO, MIKE K 788.1 DYSURIA 02/09/2012 RODYAJIMEE BOYKINN, HEATHER S 788.1 DYSURIA 02/09/2012 MERCEDES JENNINGS DDS 788.1 DYSURIA 02/09/2012 RODY BOYKINN, HEATHER S 788.1 DYSURIA 02/09/2012 RODY DIRECTOR OF PSYCHOLOGY, HEATHER S 788.1 DYSURIA 02/09/2012 RODY DIRECTOR OF PSYCHOLOGY, HEATHER S 788.1 DYSURIA 02/09/2012 RODY DIRECTOR OF PSYCHOLOGY, HEATHER S 788.1 DYSURIA 02/09/2012 RODY DIRECTOR OF PSYCHOLOGY, HEATHER S 788.1 DYSURIA 02/09/2012 RODY DIRECTOR OF PSYCHOLOGY, HEATHER S 788.1 DYSURIA 02/09/2012 JEAN CARLOS LAGOS APRNIDI A 788.1 DYSURIA 02/09/2012 AGUILAR DO, MIKE K 788.1 DYSURIA 02/09/2012 RODY DIRECTOR OF PSYCHOLOGY, HEATHER S 788.1 DYSURIA 02/09/2012 RODY DIRECTOR OF PSYCHOLOGY, HEATHER S 788.1 DYSURIA 02/09/2012 RODY DIRECTOR OF PSYCHOLOGY, HEATHER S 788.1 DYSURIA 02/09/2012 HEATHER FINE [...] 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 04/30/2012 RODY DIRECTOR OF PSYCHOLOGY, HEATHER S 578.9 HEMORRHAGE OF GASTROINTESTINAL TRACT UNSPECIFIED 04/30/2012 WHITE DDS, MERCEDES D 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 04/30/2012 WHITE DDS, MERCEDES D 578.9 HEMORRHAGE OF GASTROINTESTINAL TRACT UNSPECIFIED 04/30/2012 RODY DIRECTOR OF PSYCHOLOGY, HEATHER S 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 04/30/2012 RODY DIRECTOR OF PSYCHOLOGY, HEATHER S 578.9 HEMORRHAGE OF GASTROINTESTINAL TRACT UNSPECIFIED 04/30/2012 RODY DIRECTOR OF PSYCHOLOGY, HEATHER S 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 04/30/2012 RODY DIRECTOR OF PSYCHOLOGY, HEATHER S 578.9 HEMORRHAGE OF GASTROINTESTINAL TRACT UNSPECIFIED 04/30/2012 RODY DIRECTOR OF PSYCHOLOGY, HEATHER S 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 04/30/2012 RODY DIRECTOR OF PSYCHOLOGY, HEATHER S 578.9 HEMORRHAGE OF GASTROINTESTINAL TRACT UNSPECIFIED 04/30/2012 RODY DIRECTOR OF PSYCHOLOGY, HEATHER S 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 04/30/2012 RODY DIRECTOR OF PSYCHOLOGY, HEATHER S 578.9 HEMORRHAGE OF GASTROINTESTINAL TRACT UNSPECIFIED 04/30/2012 RODY DIRECTOR OF PSYCHOLOGY, HEATHER S 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 04/30/2012 RODY DIRECTOR OF PSYCHOLOGY, HEATHER S 578.9 HEMORRHAGE OF GASTROINTESTINAL TRACT UNSPECIFIED 04/30/2012 RODY DIRECTOR OF PSYCHOLOGY, HEATHER S 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 04/30/2012 RODY DIRECTOR OF PSYCHOLOGY, HEATHER S 578.9 HEMORRHAGE OF GASTROINTESTINAL TRACT UNSPECIFIED 04/30/2012 DEMOND DIRECTOR OF PSYCHOLOGY, TRAM A 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 04/30/2012 DEMOND DIRECTOR OF PSYCHOLOGY, TRAM A 578.9 HEMORRHAGE OF GASTROINTESTINAL TRACT UNSPECIFIED 04/30/2012 AGUILAR DO, MIKE K 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 04/30/2012 AGUILAR DO, MIKE K 578.9 HEMORRHAGE OF GASTROINTESTINAL TRACT UNSPECIFIED 04/30/2012 RODY DIRECTOR OF PSYCHOLOGY, HEATHER S 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 04/30/2012 RODY DIRECTOR OF PSYCHOLOGY, HEATHER S 578.9 HEMORRHAGE OF GASTROINTESTINAL TRACT UNSPECIFIED 04/30/2012 RODY DIRECTOR OF PSYCHOLOGY, HEATHER S 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 04/30/2012 RODY DIRECTOR OF PSYCHOLOGY, HEATHER S 578.9 HEMORRHAGE OF GASTROINTESTINAL TRACT UNSPECIFIED 04/30/2012 RODY DIRECTOR OF PSYCHOLOGY, HEATHER S 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 04/30/2012 RODY DIRECTOR OF PSYCHOLOGY, HEATHER S 578.9 HEMORRHAGE OF GASTROINTESTINAL TRACT UNSPECIFIED 04/30/2012 RODY DIRECTOR OF PSYCHOLOGY, HEATHER S 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 04/30/2012 RODY DIRECTOR OF PSYCHOLOGY, HEATHER S 578.9 HEMORRHAGE OF GASTROINTESTINAL TRACT UNSPECIFIED 04/30/2012 RODY DIRECTOR OF PSYCHOLOGY, HEATHER S 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 04/30/2012 RODY DIRECTOR OF PSYCHOLOGY, HEATHER S 578.9 HEMORRHAGE OF GASTROINTESTINAL TRACT [...] S V76.10 BREAST CANCER SCREENING 11/13/2012 RODY DIRECTOR OF PSYCHOLOGY, HEATHER S V76.10 BREAST CANCER SCREENING 11/13/2012 RODY DIRECTOR OF PSYCHOLOGY, HEATHER S V76.10 BREAST CANCER SCREENING 11/13/2012 RODY DIRECTOR OF PSYCHOLOGY, HEATHER S V76.10 BREAST CANCER SCREENING 11/13/2012 DEMOND DIRECTOR OF PSYCHOLOGY, TRAM A V76.10 BREAST CANCER SCREENING 11/13/2012 AGUILAR DO, MIKE K V76.10 BREAST CANCER SCREENING 11/13/2012 RODY DIRECTOR OF PSYCHOLOGY, HEATHER S V76.10 BREAST CANCER SCREENING 11/13/2012 RODY DIRECTOR OF PSYCHOLOGY, HEATHER S V76.10 BREAST CANCER SCREENING 11/13/2012 RODY DIRECTOR OF PSYCHOLOGY, HEATHER S V76.10 BREAST CANCER SCREENING 11/13/2012 RODY DIRECTOR OF PSYCHOLOGY, HEATHER S V76.10 BREAST CANCER SCREENING 12/31/2012 719.46 PAIN- KNEE 12/31/2012 AGUILAR DO, MIKE K 719.46 PAIN- KNEE 12/31/2012 AGUILAR DO, MIKE K 719.46 PAIN- KNEE 12/31/2012 RODY DIRECTOR OF PSYCHOLOGY, HEATHER S 719.46 PAIN- KNEE 12/31/2012 MERCEDES JENNINGS DDS 719.46 PAIN- KNEE 12/31/2012 RODY DIRECTOR OF PSYCHOLOGY, HEATHER S 719.46 PAIN- KNEE 12/31/2012 RODY DIRECTOR OF PSYCHOLOGY, HEATHER S 719.46 PAIN- KNEE 12/31/2012 RODY DIRECTOR OF PSYCHOLOGY, HEATHER S 719.46 PAIN- KNEE 12/31/2012 RODY DIRECTOR OF PSYCHOLOGY, HEATHER S 719.46 PAIN- KNEE 12/31/2012 RODY DIRECTOR OF PSYCHOLOGY, HEATHER S 719.46 PAIN- KNEE 12/31/2012 RODY DIRECTOR OF PSYCHOLOGY, HEATHER S 719.46 PAIN- KNEE 12/31/2012 DEMOND DIRECTOR OF PSYCHOLOGY, TRAM A 719.46 PAIN- KNEE 12/31/2012 AGUILAR DO, MIKE K 719.46 PAIN- KNEE 12/31/2012 RODY DIRECTOR OF PSYCHOLOGY, HEATHER S 719.46 PAIN- KNEE 12/31/2012 RODY DIRECTOR OF PSYCHOLOGY, HEATHER S 719.46 PAIN- KNEE 12/31/2012 RODY DIRECTOR OF PSYCHOLOGY, HEATHER S 719.46 PAIN- KNEE 12/31/2012 RODY DIRECTOR OF PSYCHOLOGY, HEATHER S 719.46 PAIN- KNEE 02/20/2013 AGUILAR DO, MIKE K 300.00 ANXIETY STATE UNSPECIFIED 02/20/2013 AGUILAR DO, MIKE K 300.00 ANXIETY STATE UNSPECIFIED 02/20/2013 RODY DIRECTOR OF PSYCHOLOGY, HEATHER S 300.00 ANXIETY STATE UNSPECIFIED 02/20/2013 WHITE DDS, MERCEDES D 300.00 ANXIETY STATE UNSPECIFIED 02/20/2013 RODY DIRECTOR OF PSYCHOLOGY, HEATHER S 300.00 ANXIETY STATE UNSPECIFIED 02/20/2013 RODY DIRECTOR OF PSYCHOLOGY, HEATHER S 300.00 ANXIETY STATE UNSPECIFIED 02/20/2013 RODY DIRECTOR OF PSYCHOLOGY, HEATHER S 300.00 ANXIETY STATE UNSPECIFIED 02/20/2013 RODY DIRECTOR OF PSYCHOLOGY, HEATHER S 300.00 ANXIETY STATE UNSPECIFIED 02/20/2013 RODY DIRECTOR OF PSYCHOLOGY, HEATHER S 300.00 ANXIETY STATE UNSPECIFIED 02/20/2013 RODY DIRECTOR OF PSYCHOLOGY, HEATHER S 300.00 ANXIETY STATE UNSPECIFIED 02/20/2013 DEMOND DIRECTOR OF PSYCHOLOGY, TRAM A 300.00 ANXIETY STATE UNSPECIFIED 02/20/2013 AGUILAR DO, MIKE K 300.00 ANXIETY STATE UNSPECIFIED 02/20/2013 RODY DIRECTOR OF PSYCHOLOGY, HEATHER S 300.00 ANXIETY STATE UNSPECIFIED 02/20/2013 RODY DIRECTOR OF PSYCHOLOGY, HEATHER S 300.00 ANXIETY STATE UNSPECIFIED 02/20/2013 RODY DIRECTOR OF PSYCHOLOGY, HEATHER S 300.00 ANXIETY STATE UNSPECIFIED 02/20/2013 RODY DIRECTOR OF PSYCHOLOGY, HEATHER S 300.00 ANXIETY STATE UNSPECIFIED 03/04/2013 AGUILAR DO, MIKE K 701.9 SKIN TAG 03/04/2013 AGUILAR DO, MIKE K 701.9 SKIN TAG 03/04/2013 RODY DIRECTOR OF PSYCHOLOGY, HEATHER S 701.9 SKIN TAG 03/04/2013 WHITE DDS, MERCEDES D 701.9 SKIN TAG 03/04/2013 RODY DIRECTOR OF PSYCHOLOGY, HEATHER S 701.9 SKIN TAG 03/04/2013 RODY DIRECTOR OF PSYCHOLOGY, HEATHER S 701.9 SKIN TAG 03/04/2013 RODY DIRECTOR OF PSYCHOLOGY, HEATHER S 701.9 SKIN TAG 03/04/2013 RODY DIRECTOR OF PSYCHOLOGY, HEATHER S 701.9 SKIN TAG 03/04/2013 RODY DIRECTOR OF PSYCHOLOGY, HEATHER S 701.9 SKIN TAG 03/04/2013 RODY DIRECTOR OF PSYCHOLOGY, HEATHER S 701.9 SKIN TAG 03/04/2013 DEMOND DIRECTOR OF PSYCHOLOGY, TRAM A 701.9 SKIN TAG 03/04/2013 AGUILAR DO, MIKE K 701.9 SKIN TAG 03/04/2013 RODY DIRECTOR OF PSYCHOLOGY, HEATHER S 701.9 SKIN TAG 03/04/2013 RODY DIRECTOR OF PSYCHOLOGY, HEATHER S 701.9 SKIN TAG 03/04/2013 RODY DIRECTOR OF PSYCHOLOGY, HEATHER S 701.9 SKIN TAG 03/04/2013 RODY DIRECTOR OF PSYCHOLOGY, HEATHER S 701.9 SKIN TAG 03/12/2013 AGUILAR DO, MIKE K 008.8 GASTROENTERITIS, VIRAL 03/12/2013 AGUILAR DO, MIKE K 008.8 GASTROENTERITIS, VIRAL 03/12/2013 RODY DIRECTOR OF PSYCHOLOGY, HEATHER S 008.8 GASTROENTERITIS, VIRAL 03/12/2013 WHITE DDS, MERCEDES D 008.8 GASTROENTERITIS, VIRAL 03/12/2013 RODY DIRECTOR OF PSYCHOLOGY, HEATHER S 008.8 GASTROENTERITIS, VIRAL 03/12/2013 RODY DIRECTOR OF PSYCHOLOGY, HEATHER S 008.8 GASTROENTERITIS, VIRAL 03/12/2013 RODY DIRECTOR OF PSYCHOLOGY, HEATHER S 008.8 GASTROENTERITIS, VIRAL 03/12/2013 RODY DIRECTOR OF PSYCHOLOGY, HEATHER S 008.8 GASTROENTERITIS, VIRAL 03/12/2013 RODY DIRECTOR OF PSYCHOLOGY, HEATHER S 008.8 GASTROENTERITIS, VIRAL 03/12/2013 RODY DIRECTOR OF PSYCHOLOGY, HEATHER S 008.8 GASTROENTERITIS, VIRAL 03/12/2013 DEMOND DIRECTOR OF PSYCHOLOGY, TRAM A 008.8 GASTROENTERITIS, VIRAL 03/12/2013 AGUILAR DO, MIKE K 008.8 GASTROENTERITIS, VIRAL 03/12/2013 RODY DIRECTOR OF PSYCHOLOGY, HEATHER S 008.8 GASTROENTERITIS, VIRAL 03/12/2013 RODY DIRECTOR OF PSYCHOLOGY, HEATHER S 008.8 GASTROENTERITIS, VIRAL 03/12/2013 RODY DIRECTOR OF PSYCHOLOGY, HEATHER S 008.8 GASTROENTERITIS, VIRAL 03/12/2013 RODY DIRECTOR OF PSYCHOLOGY, HEATHER S 008.8 GASTROENTERITIS, VIRAL 03/14/2013 AGUILAR DO, MIKE K 789.06 ABDOMINAL PAIN EPIGASTRIC 03/14/2013 AGUILAR DO, MIKE K 789.06 ABDOMINAL PAIN EPIGASTRIC 03/14/2013 RODY DIRECTOR OF PSYCHOLOGY, HEATHER S 789.06 ABDOMINAL PAIN EPIGASTRIC 03/14/2013 WHITE DDS, MERCEDES D 789.06 ABDOMINAL PAIN EPIGASTRIC 03/14/2013 RODY DIRECTOR OF PSYCHOLOGY, HEATHER S 789.06 ABDOMINAL PAIN EPIGASTRIC 03/14/2013 RODY DIRECTOR OF PSYCHOLOGY, HEATHER S 789.06 ABDOMINAL PAIN EPIGASTRIC 03/14/2013 RODY DIRECTOR OF PSYCHOLOGY, HEATHER S 789.06 ABDOMINAL PAIN EPIGASTRIC 03/14/2013 RODY DIRECTOR OF PSYCHOLOGY, HEATHER S 789.06 ABDOMINAL PAIN EPIGASTRIC 03/14/2013 RODY DIRECTOR OF PSYCHOLOGY, HEATHER S 789.06 ABDOMINAL PAIN EPIGASTRIC 03/14/2013 RODY DIRECTOR OF PSYCHOLOGY, HEATHER S 789.06 ABDOMINAL PAIN EPIGASTRIC 03/14/2013 DEMOND DIRECTOR OF PSYCHOLOGY, TRAM A 789.06 ABDOMINAL PAIN EPIGASTRIC 03/14/2013 AGUILAR DO, MIKE K 789.06 ABDOMINAL PAIN EPIGASTRIC 03/14/2013 RODY DIRECTOR OF PSYCHOLOGY, HEATHER S 789.06 ABDOMINAL PAIN EPIGASTRIC 03/14/2013 RODY DIRECTOR OF PSYCHOLOGY, HEATHER S 789.06 ABDOMINAL PAIN EPIGASTRIC 03/14/2013 RODY DIRECTOR OF PSYCHOLOGY, HEATHER S 789.06 ABDOMINAL PAIN EPIGASTRIC 03/14/2013 RDOY DIRECTOR OF PSYCHOLOGY, HEATHER S 789.06 ABDOMINAL PAIN EPIGASTRIC 08/23/2013 RODY DIRECTOR OF PSYCHOLOGY, HEATHER S 287.5 THROMBOCYTOPENIA 08/23/2013 RODY DIRECTOR OF PSYCHOLOGY, HEATHER S 525.9 TOOTH PAIN 08/23/2013 RODY DIRECTOR OF PSYCHOLOGY, HEATHER S 287.5 THROMBOCYTOPENIA 08/23/2013 RODY DIRECTOR OF PSYCHOLOGY, HEATHER S 525.9 TOOTH PAIN 08/23/2013 RODY DIRECTOR OF PSYCHOLOGY, HEATHER S 287.5 THROMBOCYTOPENIA 08/23/2013 RODY DIRECTOR OF PSYCHOLOGY, HEATHER S 525.9 TOOTH PAIN 08/23/2013 RODY DIRECTOR OF PSYCHOLOGY, HEATHER S 287.5 THROMBOCYTOPENIA 08/23/2013 RODY DIRECTOR OF PSYCHOLOGY, HEATHER S 525.9 TOOTH PAIN 08/23/2013 RODY DIRECTOR OF PSYCHOLOGY, HEATHER S 287.5 THROMBOCYTOPENIA 08/23/2013 RODY DIRECTOR OF PSYCHOLOGY, HEATHER S 525.9 TOOTH PAIN 08/23/2013 RODY DIRECTOR OF PSYCHOLOGY, HEATHER S 287.5 THROMBOCYTOPENIA 08/23/2013 RODY DIRECTOR OF PSYCHOLOGY, HEATHER S 525.9 TOOTH PAIN 08/23/2013 DEMOND DIRECTOR OF PSYCHOLOGY, TRAM A 287.5 THROMBOCYTOPENIA 08/23/2013 DEMOND DIRECTOR OF PSYCHOLOGY, TRAM A 525.9 TOOTH PAIN 08/23/2013 AGUILAR DO, MIKE K 287.5 THROMBOCYTOPENIA 08/23/2013 AGUILAR DO, MIKE K 525.9 TOOTH PAIN 08/23/2013 RODY DIRECTOR OF PSYCHOLOGY, HEATHER S 287.5 THROMBOCYTOPENIA 08/23/2013 RODY DIRECTOR OF PSYCHOLOGY, HEATHER S 525.9 TOOTH PAIN 08/23/2013 RODY DIRECTOR OF PSYCHOLOGY, HEATHER S 287.5 THROMBOCYTOPENIA 08/23/2013 RODY DIRECTOR OF PSYCHOLOGY, HEATHER S 525.9 TOOTH PAIN 08/23/2013 RODY DIRECTOR OF PSYCHOLOGY, HEATHER S 287.5 THROMBOCYTOPENIA 08/23/2013 RODY DIRECTOR OF PSYCHOLOGY, HEATHER S 525.9 TOOTH PAIN 08/23/2013 RODY DIRECTOR OF PSYCHOLOGY, HEATHER S 287.5 THROMBOCYTOPENIA 08/23/2013 RODY DIRECTOR OF PSYCHOLOGY, HEATHER S 525.9 TOOTH PAIN 08/24/2013 BALDO HOOKS, TETO Wells Ot 525.9 DENTAL DISORDER NOS 09/18/2013 MELISSA HOOKS, NAWAF Garvin Ot 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 11/19/2013 RODY DIRECTOR OF PSYCHOLOGY, HEATHER S 477.0 ALLERGIC RHINITIS DUE TO POLLEN 11/19/2013 RODY DIRECTOR OF PSYCHOLOGY, HEATHER S 477.0 ALLERGIC RHINITIS DUE TO POLLEN 11/19/2013 RODY DIRECTOR OF PSYCHOLOGY, HEATHER S 477.0 ALLERGIC RHINITIS DUE TO POLLEN 11/19/2013 RODY DIRECTOR OF PSYCHOLOGY, HEATHER S 477.0 ALLERGIC RHINITIS DUE TO POLLEN 11/19/2013 DEMOND DIRECTOR OF PSYCHOLOGY, TRAM A 477.0 ALLERGIC RHINITIS DUE TO POLLEN 11/19/2013 AGUILAR DO, MIKE K 477.0 ALLERGIC RHINITIS DUE TO POLLEN 11/19/2013 RODY DIRECTOR OF PSYCHOLOGY, HEATHER S 477.0 ALLERGIC RHINITIS DUE TO POLLEN 11/19/2013 RODY DIRECTOR OF PSYCHOLOGY, HEATHER S 477.0 ALLERGIC RHINITIS DUE TO POLLEN 11/19/2013 RODY DIRECTOR OF PSYCHOLOGY, HEATHER S 477.0 ALLERGIC RHINITIS DUE TO POLLEN 11/19/2013 RODY DIRECTOR OF PSYCHOLOGY, HEATHER S 477.0 ALLERGIC RHINITIS DUE TO POLLEN 01/03/2014 DORIS GARCIA DIRECTOR OF PSYCHOLOGY Ot 521.00 UNSPEC DENTAL CARIES 01/03/2014 DORIS GARCIA DIRECTOR OF PSYCHOLOGY Ot 525.9 DENTAL DISORDER NOS 01/04/2014 KOSTA [...] MIKE AGUILAR DO 786.2 COUGH 03/12/2014 RODY DIRECTOR OF PSYCHOLOGY, HEATHER S 786.2 COUGH 03/12/2014 RODY DIRECTOR OF PSYCHOLOGY, HEATHER S 786.2 COUGH 03/12/2014 RODY DIRECTOR OF PSYCHOLOGY, HEATHER S 786.2 COUGH 03/12/2014 RODY DIRECTOR OF PSYCHOLOGY, HEATHER S 786.2 COUGH 03/21/2014 JOHNY HOOKS, AMY Avalos Ot 519.11 ACUTE BRONCHOSPASM 03/21/2014 JOHNY HOOKS, AMY Avalos Ot 787.03 VOMITING ALONE 04/22/2014 RODY SAVAGE, HEATHER S 493.90 ASTHMA UNSPECIFIED 04/22/2014 DEMOND SAVAGE TRAM A 493.90 ASTHMA UNSPECIFIED 04/22/2014 MIKE AGUILAR DO 493.90 ASTHMA UNSPECIFIED 04/22/2014 RODY DIRECTOR OF PSYCHOLOGY, HEATHER S 493.90 ASTHMA UNSPECIFIED 04/22/2014 RODY SAVAGE, HEATHER S 493.90 ASTHMA UNSPECIFIED 04/22/2014 RODY DIRECTOR OF PSYCHOLOGY, HEATHER S 493.90 ASTHMA UNSPECIFIED 04/22/2014 RODY DIRECTOR OF PSYCHOLOGY, HEATHER S 493.90 ASTHMA UNSPECIFIED 05/05/2014 DEMONDLaura SAVAGE TRAM A 599.0 URINARY TRACT INFECTION 05/05/2014 MIKE AGUILAR DO K 599.0 URINARY TRACT INFECTION 05/05/2014 RODY DIRECTOR OF PSYCHOLOGY, HEATHER S 599.0 URINARY TRACT INFECTION 05/05/2014 RODY DIRECTOR OF PSYCHOLOGY, HEATHER S 599.0 URINARY TRACT INFECTION 05/05/2014 RODY DIRECTOR OF PSYCHOLOGY, HEATHER S 599.0 URINARY TRACT INFECTION 05/05/2014 RODY DIRECTOR OF PSYCHOLOGY, HEATHER S 599.0 URINARY TRACT INFECTION 06/18/2014 DORIS GARCIA DIRECTOR OF PSYCHOLOGY Ot 079.99 VIRAL INFECTION NOS 06/18/2014 DORIS GARCIA DIRECTOR OF PSYCHOLOGY Ot 284.19 OTHER PANCYTOPENIA 06/18/2014 DORIS GARCIA DIRECTOR OF PSYCHOLOGY Ot 780.60 FEVER, UNSPECIFIED 06/20/2014 CYNDI DODALIAA K Ot 287.5 THROMBOCYTOPENIA NOS 06/20/2014 CYNDI ADLIA TENAA K Ot 787.01 NAUSEA WITH VOMITING 06/20/2014 CYNDI DALIA TENAA K Ot 789.2 SPLENOMEGALY 07/01/2014 MANNY HOOKS, MARLO Summers Ot 070.54 07/01/2014 MANNY HOOKS, MARLO Sumemrs Ot 285.9 07/01/2014 MANNY HOOKS, MARLO Summers Ot 287.5 07/01/2014 MANNY HOOKS, MARLO Summers Ot 571.3 07/01/2014 MANNY HOOKS, MARLO Summers Ot V11.3 07/01/2014 MANNY HOOKS, MARLO Summers Ot V12.79 07/01/2014 MANNY HOOKS, MARLO Summers Ot V58.69 07/12/2014 DORIS GARCIA DIRECTOR OF PSYCHOLOGY Ot 070.70 UNSPECIFIED VIRAL HEPATITIS C WITHOUT HE 07/12/2014 DORIS GARCIA DIRECTOR OF PSYCHOLOGY Ot 456.20 BLEED ESOPH TASHI OTH DIS 07/12/2014 DORIS GARCIA DIRECTOR OF PSYCHOLOGY Ot 571.5 CIRRHOSIS OF LIVER NOS 07/12/2014 DORIS GARCIA DIRECTOR OF PSYCHOLOGY Ot 578.0 HEMATEMESIS 07/14/2014 MARLO BRYANT MD [...] Ot V58.69 OTH MED,LT,CURRENT USE 07/30/2014 RODY DIRECTOR OF PSYCHOLOGY, HEATHER S 789.59 OTHER ASCITES 07/30/2014 RODY DIRECTOR OF PSYCHOLOGY, HEATHER S 789.59 OTHER ASCITES 07/30/2014 RODY DIRECTOR OF PSYCHOLOGY, HEATHER S 789.59 OTHER ASCITES 07/30/2014 RODY DIRECTOR OF PSYCHOLOGY, HEATHER S 789.59 OTHER ASCITES 07/30/2014 MANNY [...] HOOKS, MARLO Kristopher Ot 571.3 07/30/2014 MANNY HOKOS, MARLO Summers Ot V11.3 07/30/2014 MANNY HOOKS, [...] MARCE HOOKS, CHRISTOPHER Evans Ot 571.5 01/11/2015 MRACE HOOKS, CHRISTOPHER Evans Ot 456.1 01/11/2015 MARCE [...] MARLO K Ot 287.5 01/14/2015 MANNY HOOKS, MALRO Kristopher Ot 571.3 01/14/2015 MANNY HOOKS, MARLO [...] K Ot 070.54 01/14/2015 MANNY HOOKS, MARLO Kristopher [...] MANNY HOOKS, MARLO Summers Ot V58.69 01/15/2015 MARCE HOOKS, CHRISTOPHER Evans Ot 456.1 [...] MANNY HOOKS, MARLO Summers Ot Z79.899 OTHER ACREAGE REPORTER (CURRENT) DRUG THERAPY 01/13/2016 MANNY HOOKS, MARLO Summers Ot B18.2 CHRONIC VIRAL HEPATITIS C 01/13/2016 MARLO BRYANT MD Ot D64.9 ANEMIA, UNSPECIFIED 01/13/2016 MARLO BRYANT MD Ot D69.6 THROMBOCYTOPENIA, UNSPECIFIED 01/13/2016 MARLO BRYANT MD Ot F10.21 ALCOHOL DEPENDENCE, IN REMISSION 01/13/2016 MARLO BRYANT MD Ot K70.9 ALCOHOLIC LIVER DISEASE, UNSPECIFIED 01/13/2016 MARLO BRYANT MD Ot Z79.899 OTHER LONG-TERM (CURRENT) DRUG THERAPY 01/24/2016 Ot 070.54 CHRONIC [...] MD Ot V58.69 OTH MED,LT,CURRENT USE 01/24/2016 NAWAF TORRES MD Ot V72.84 EXAM PRE-OPERATIVE [...] 01/24/2016 MARLO BRYANT MD Ot Z79.899 OTHER LONG-TERM (CURRENT) DRUG THERAPY 01/27/2016 MARLO BRYANT MD [...] 04/19/2016 MARLO BRYANT MD Ot Z79.899 OTHER ACREAGE REPORTER (CURRENT) DRUG THERAPY 04/20/2016 MARLO BRYANT MD Ot B18.2 CHRONIC VIRAL HEPATITIS C 04/20/2016 MARLO BRYANT MD Ot D64.9 ANEMIA, UNSPECIFIED 04/20/2016 MARLO BRYANT MD Ot D69.6 THROMBOCYTOPENIA, UNSPECIFIED 04/20/2016 MARLO BRYANT MD Ot F10.21 ALCOHOL DEPENDENCE, IN REMISSION 04/20/2016 MARLO BRYANT MD Ot K70.9 ALCOHOLIC LIVER DISEASE, UNSPECIFIED 04/20/2016 MANNY HOOKS, MARLO Summers Ot Z79.899 OTHER LONG-TERM (CURRENT) DRUG THERAPY 06/10/2016 AZUL EMMANUEL Ot [...] BRYANT MD Ot 285.9 ANEMIA NOS 06/10/2016 MAROL BRYANT MD Ot 287.5 THROMBOCYTOPENIA NOS 06/10/2016 [...] 06/10/2016 MARLO BRYANT MD Ot Z79.899 OTHER LONG-TERM (CURRENT) DRUG THERAPY 08/17/2016 MARCE HOOKS, CHRISTOPHER [...] 08/22/2016 MARLO BRYANT MD Ot Z79.899 OTHER LONG-TERM (CURRENT) DRUG THERAPY 10/02/2016 TRAVIS HOOKS, YARIEL Gutierrez Ot J44.9 CHRONIC OBSTRUCTIVE PULMONARY DISEASE, U 10/02/2016 TRAVIS HOOKS, YARIEL Gutierrez Ot K59.00 CONSTIPATION, UNSPECIFIED 10/02/2016 TRAVIS HOOKS, YARIEL Gutierrez Ot N39.0 URINARY TRACT INFECTION, SITE NOT SPECIF 10/02/2016 TRAVIS HOOKS, YARIEL Gutierrez Ot R10.32 LEFT LOWER QUADRANT PAIN 10/02/2016 TRAVIS HOOKS, YARIEL Gutierrez Ot Z79.899 OTHER LONG-TERM (CURRENT) DRUG THERAPY 10/02/2016 Ot 070.54 CHRONIC [...] 10/02/2016 MARLO BRYANT MD, Ot Z79.899 OTHER ACREAGE REPORTER (CURRENT) DRUG THERAPY 10/02/2016 MARLO BRYANT MD Ot Z87.891 PERSONAL HISTORY OF NICOTINE DEPENDENCE 10/03/2016 YARIEL ROBLES MD, Ot J44.9 CHRONIC OBSTRUCTIVE PULMONARY DISEASE, U 10/03/2016 YARIEL ROBLES MD, Ot K59.00 CONSTIPATION, UNSPECIFIED 10/03/2016 YARIEL ROBLES MD, Ot N39.0 URINARY TRACT INFECTION, SITE NOT SPECIF 10/03/2016 YARIEL ROBLES MD, Ot R10.32 LEFT LOWER QUADRANT PAIN 10/03/2016 YARIEL ROBLES MD, Ot Z79.899 OTHER LONG-TERM (CURRENT) DRUG THERAPY 10/04/2016 YARIEL ROBLES MD Ot J44.9 CHRONIC OBSTRUCTIVE PULMONARY DISEASE, U 10/04/2016 YARIEL ROBLES MD Ot K59.00 CONSTIPATION, UNSPECIFIED 10/04/2016 YARIEL ROBLES MD Ot N39.0 URINARY TRACT INFECTION, SITE NOT SPECIF 10/04/2016 YARIEL ROBLES MD Ot R10.32 LEFT LOWER QUADRANT PAIN 10/04/2016 YARIEL ROBLES MD, Ot Z79.899 OTHER ACREAGE REPORTER (CURRENT) DRUG THERAPY 11/19/2016 MARLO BRYANT MD [...] 11/19/2016 MARLO BRYANT MD Ot Z79.899 OTHER ACREAGE REPORTER (CURRENT) DRUG THERAPY 11/19/2016 MARLO BRYANT MD [...] 11/23/2016 MARLO BRYANT MD Ot Z79.899 OTHER LONG-TERM (CURRENT) DRUG THERAPY 11/23/2016 MARLO BRYANT MD [...] 11/24/2016 MARLO BRYANT MD, Ot Z79.899 OTHER LONG-TERM (CURRENT) DRUG THERAPY 11/24/2016 CHOLOAZUL Mejia Ot [...] 01/26/2017 MARLO BRYANT MD Ot Z79.899 OTHER ACREAGE REPORTER (CURRENT) DRUG THERAPY 01/26/2017 KOSTA MAGANA Ot [...] 03/01/2017 MARLO BRYANT MD Ot Z79.899 OTHER ACREAGE REPORTER (CURRENT) DRUG THERAPY 03/01/2017 MARLO BRYANT MD [...] 03/02/2017 MARLO BRYANT MD Ot Z79.899 OTHER LONG-TERM (CURRENT) DRUG THERAPY 03/02/2017 MARLO BRYANT MD [...] 03/19/2017 MARLO BRYANT MD Ot Z79.899 OTHER ACREAGE REPORTER (CURRENT) DRUG THERAPY 03/19/2017 MARLO BRYANT MD [...] 571.3 ALCOHOL LIVER DAMAGE NOS 04/03/2017 MARLO BRAYNT MD Ot V11.3 HX OF ALCOHOLISM 04/03/2017 [...] 04/03/2017 MARLO BRYANT MD Ot Z79.899 OTHER ACREAGE REPORTER (CURRENT) DRUG THERAPY 04/03/2017 MARLO BRYANT MD [...] BRYANT MD Ot 287.5 THROMBOCYTOPENIA NOS 04/06/2017 AMRLO BRYANT MD Ot 571.3 ALCOHOL LIVER DAMAGE [...] 04/06/2017 MARLO BRYANT MD Ot Z79.899 OTHER ACREAGE REPORTER (CURRENT) DRUG THERAPY 04/06/2017 MARLO BRYANT MD [...] 04/12/2017 MARLO BRYANT MD Ot Z79.899 OTHER ACREAGE REPORTER (CURRENT) DRUG THERAPY 04/12/2017 MARLO BRYANT MD, [...] 05/12/2017 MARLO BRYANT MD Ot Z79.899 OTHER LONG-TERM (CURRENT) DRUG THERAPY 05/12/2017 MARLO BRYANT MD [...] 10/11/2017 ROXANA BENÍTEZ MD Ot Z79.899 OTHER LONG-TERM (CURRENT) DRUG THERAPY 10/11/2017 ROXANA BENÍTEZ MD Ot Z87.891 PERSONAL HISTORY OF NICOTINE DEPENDENCE 10/15/2017 ANTOINE, ARMIDA Denton DIRECTOR OF PSYCHOLOGY Ot 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 10/15/2017 ANTOINE, ARMIDA Denton DIRECTOR OF PSYCHOLOGY Ot K70.30 ALCOHOLIC CIRRHOSIS OF LIVER WITHOUT ASC 10/15/2017 ANTOINE, ARMIDA Denton DIRECTOR OF PSYCHOLOGY Ot R16.1 SPLENOMEGALY, NOT ELSEWHERE CLASSIFIED 11/14/2017 ANTOINE, ARMIDA Denton DIRECTOR OF PSYCHOLOGY Ot 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 11/14/2017 ANTOINE, ARMIDA Denton DIRECTOR OF PSYCHOLOGY Ot K70.30 ALCOHOLIC CIRRHOSIS OF LIVER WITHOUT ASC 11/14/2017 ANTOINE, ARMIDA Denton DIRECTOR OF PSYCHOLOGY Ot R16.1 SPLENOMEGALY, NOT ELSEWHERE CLASSIFIED 12/05/2017 [...] 12/05/2017 ROXANA BENÍTEZ MD Ot Z79.899 OTHER LONG-TERM (CURRENT) DRUG THERAPY 12/05/2017 ROXANA BENÍTEZ MD [...] 03/08/2018 ROXANA BENÍTEZ MD Ot Z79.899 OTHER LONG-TERM (CURRENT) DRUG THERAPY 03/08/2018 ROXANA BENÍTEZ MD [...] 03/12/2018 ROXANA BENÍTEZ MD Ot Z79.899 OTHER ACREAGE REPORTER (CURRENT) DRUG THERAPY 03/12/2018 ROXANA BENÍTEZ MD Ot Z87.891 PERSONAL HISTORY OF NICOTINE DEPENDENCE 03/12/2018 MAROL BRYANT MD Ot 070.54 CHRONIC HEPATITIS C [...] LIVER NOS 03/12/2018 MARLO BRYANT MD Ot B18.2 CHRONIC VIRAL [...] BENÍTEZ MD Ot D69.6 THROMBOCYTOPENIA, UNSPECIFIED 03/12/2018 ROXAAN BENÍTEZ MD Ot D72.819 DECREASED WHITE BLOOD CELL COUNT, UNSPEC 03/12/2018 ROXANA BENÍTEZ MD Ot F10.21 ALCOHOL DEPENDENCE, IN REMISSION 03/12/2018 ROXANA BENÍTEZ MD Ot 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 03/12/2018 ROXANA BENÍTEZ MD Ot K70.30 ALCOHOLIC CIRRHOSIS OF LIVER WITHOUT ASC 03/12/2018 ROXANA BENÍTEZ MD Ot R16.1 SPLENOMEGALY, NOT ELSEWHERE CLASSIFIED 03/12/2018 ROXANA BENÍTEZ MD Ot Z79.899 OTHER ACREAGE REPORTER (CURRENT) DRUG THERAPY 03/12/2018 ROXANA BENÍTEZ MD [...] 05/13/2018 ROXANA BENÍTEZ MD, Ot Z79.899 OTHER LONG-TERM (CURRENT) DRUG THERAPY 05/13/2018 ROXANA BENÍTEZ MD, Ot Z87.891 PERSONAL HISTORY OF NICOTINE DEPENDENCE Procedures Code Description Performed By Performed On 45.16 ESOPHAGOGASTRODUODENOSCOPY [ EGD] W/CLOSE 11/02/2010 54.91 PERCUTANEOUS ABDOMINAL DRAINAGE 11/02/2010 45.16 ESOPHAGOGASTRODUODENOSCOPY [ EGD] W/CLOSE 04/12/2012 67151 UA W/ CULTURE IF INDICATED 05/23/2012 41228 CULTURE URINE 05/26/2012 45.13 OTHER ENDOSCOPY OF SM INTEST 08/26/2012 70821 UA W/ CULTURE IF INDICATED 11/13/2012 31534 MAMMOGRAM, SCREENING 11/14/2012 84544 XRAY KNEE LEFT, 1 OR 2 VIEWS 12/31/2012 94174 ROUTINE VENIPUNCTURE 05/28/2013 98015 URINE DRUG SCREEN (IN-HOUSE ) 05/28/2013 62636 CMP 05/29/2013 8283492 GFR CALC (RESULT ONLY) 05/29/2013 70142 CBC 05/29/2013 57481 FERRITIN 05/29/2013 72491 HEP C PCR QUANT (SERIAL) 06/07/2013 Miroslava Griffin 06/30/2013 92186 ROUTINE VENIPUNCTURE 08/25/2013 51425 URINE DRUG SCREEN (IN-HOUSE ) 08/25/2013 21496 CBC 08/25/2013 Nawaf Chung 09/10/2013 [employer] [employer] DRUG SCREEN 11/23/2013 77755 ROUTINE VENIPUNCTURE 12/15/2013 2262978 GFR CALC (RESULT ONLY) 12/15/2013 20735 CMP 12/15/2013 37048 CBC 12/15/2013 34629 CULTURE URINE 05/05/2014 17523 UA W/ CULTURE IF INDICATED 05/05/2014 83600 PULMONARY FUNCTION TEST (IN- HOUSE) 05/20/2014 95525 RESPIRATORY FLOW VOLUME LOOP 05/20/2014 71175 ROUTINE VENIPUNCTURE 08/24/2014 92910 CBC 08/25/2014 91608 PT/INR 08/26/2014 Results Test Result Range Complete [...] culture - 10/01/16 23:04 Bacterial urine culture [id number] NRG COLONY COUNT >100,000/ML NR FTX;REPORTABLE SENSITIVITY REPORTED 10/03/16 10:55 [facility] Bacterial susceptibility panel - 10/01/16 23:04 Gentamicin [...] NRG Prescribed Drug 2 Oxycodone NRG Specific [place] 1.003 > or=1.003 Noroxycodone NEGATIVE ng/mL <50 [...] Status Pt. Type Provider Facility Loc./Unit Complaint [id number] 10/22/2014 17:25:00 10/22/2014 23:59:59 CLS Outpatient RODYHEATHER HERMOSILLO APRN S [id number] 09/24/2014 16:40:00 09/24/2014 23:59:59 CLS Outpatient RODY CARINA SAVAGEA S [id number] 08/24/2014 17:15:00 08/24/2014 23:59:59 CLS Outpatient RODY CARINA SAVAGEA S [id number] 07/30/2014 17:34:00 07/30/2014 23:59:59 CLS Outpatient HEATHER FINE APRN S [id number] 05/20/2014 16:02:00 05/20/2014 23:59:59 CLS Outpatient AGUILAR MIEK TENA [id number] 05/05/2014 16:45:00 05/05/2014 23:59:59 CLS Outpatient DEMONDTRAM Sanchez APRN [id number] 04/22/2014 14:28:00 04/22/2014 23:59:59 CLS Outpatient CARINA FINE APRNA S [id number] 03/12/2014 17:42:00 03/12/2014 23:59:59 CLS Outpatient RODY CARINA SAVAGEA S [id number] 12/15/2013 14:44:00 12/15/2013 23:59:59 CLS Outpatient CARINA FINE APRNA S [id number] 11/19/2013 15:56:00 11/19/2013 23:59:59 CLS Outpatient CARINA FINE APRNA S [id number] 08/25/2013 15:40:00 08/25/2013 23:59:59 CLS Outpatient CARINA FINE APRNA S [id number] 08/23/2013 14:39:00 08/23/2013 23:59:59 CLS Outpatient CARINA FINE APRNA S [id number] 08/14/2013 13:35:00 08/14/2013 23:59:59 CLS Outpatient MERCEDES JENNINGS DDS [id number] 06/30/2013 09:40:00 06/30/2013 23:59:59 CLS Outpatient RODY JANETTEHEATHER S [id number] 05/28/2013 16:45:00 05/28/2013 23:59:59 CLS Outpatient MIKE AGUILAR DO [id number] 03/17/2013 15:15:00 03/17/2013 23:59:59 CLS Outpatient MIKE AGUILAR DO [id number] 11/13/2012 13:24:00 11/13/2012 23:59:59 CLS Outpatient DEMOND JANETTE TRAM A [id number] 10/01/2012 08:32:00 10/01/2012 23:59:59 CLS Outpatient MIROSLAVA HILL MD [id number] 09/18/2012 13:26:00 09/18/2012 23:59:59 CLS Outpatient [id number] 07/09/2012 14:49:00 07/09/2012 23:59:59 CLS Outpatient RODY SAVAGE HEATHER S [id number] 05/23/2012 17:22:00 05/23/2012 23:59:59 CLS Outpatient RODY SAVAGE HEATHER S [id number] 12/31/2012 15:11:00 Document Registration [id number] 12/02/2012 09:05:00 Document Registration [id number] 05/13/2018 00:26:00 05/13/2018 23:59:59 CLS Preadmit ROXANA BENÍTEZ MD [facility] ONC [id number] 03/07/2018 14:01:00 03/12/2018 00:01:00 DIS Outpatient ROXANA BENÍTEZ MD [facility] ONC [id number] 10/11/2017 10:16:00 12/05/2017 00:01:00 DIS Outpatient ROXANA BENÍTEZ MD [facility] ONC [id number] 10/11/2017 09:27:00 10/11/2017 23:59:59 CLS Outpatient ARMIDA SCHULTZ DIRECTOR OF PSYCHOLOGY [facility] RAD ALCOHOLIC CIRRHOSIS OF LIVER WO ASCITES [id number] 03/01/2017 14:52:00 05/12/2017 00:01:00 DIS Outpatient MARLO BRYANT MD [facility] ONC [id number] 04/19/2017 08:49:00 04/19/2017 23:59:59 CLS Outpatient MARLO BRYANT MD [facility] RAD SPLENOMEGALY [id number] 04/12/2017 14:28:00 04/12/2017 23:59:59 CLS Outpatient HEATHER FINE [facility] RAD Z12.31 BREAST CANCER SCREENING [id number] 08/21/2016 14:28:00 11/19/2016 00:01:00 DIS Outpatient MARLO BRYANT MD [facility] ONC [id number] 10/01/2016 21:32:00 10/02/2016 01:53:00 DIS Emergency YARIEL ROBLES MD [facility] ER COLD SWEATS, N/V, LEG NUMBNESS [id number] 08/16/2016 09:19:00 08/16/2016 23:59:59 CLS Outpatient CHRISTOPHER ZHENG MD [facility] RAD ALCOHLIC CIRRHOSIS OF LIVER WO ASCITES (HCC) [id number] 06/10/2016 15:16:00 06/10/2016 19:17:00 DIS Emergency CHOLOAZUL [facility] ER HEAD/NECK/BACK/LEG PAIN [id number] 01/20/2016 13:39:00 04/19/2016 00:01:00 DIS Outpatient MARLO BRYANT MD [facility] ONC [id number] 03/01/2016 16:54:00 03/01/2016 19:49:00 DIS Emergency KOSTA MAGANA [facility] ER DENTAL PAIN [id number] 01/24/2016 10:08:00 01/24/2016 23:59:59 CLS Outpatient MARLO BRYANT MD [facility] RAD SPLEENOMEGALY [id number] 10/21/2015 13:12:00 01/11/2016 00:01:00 DIS Outpatient MARLO BRYANT MD [facility] ONC [id number] 03/23/2015 10:42:00 05/12/2015 00:01:00 DIS Outpatient MARLO BRYANT MD [facility] ONC [id number] 05/09/2015 14:07:00 05/09/2015 15:49:00 DIS Emergency STU YAN MD [facility] ER FOOT PAIN [id number] 11/23/2014 14:06:00 01/24/2015 00:01:00 DIS Outpatient MARLO BRYANT MD [facility] ONC [id number] 01/14/2015 21:38:00 01/15/2015 00:50:00 DIS Emergency YARIEL ROBLES MD [facility] ER DENTAL PAIN [id number] 01/08/2015 13:52:00 01/08/2015 23:59:59 CLS Outpatient CHRISTOPHER ZHENG MD [facility] LAB [id number] 01/07/2015 07:06:00 01/07/2015 23:59:59 CLS Outpatient CHRISTOPHER ZHENG MD [facility] RAD CIRRHOSIS OF LIVER [id number] 07/25/2014 13:24:00 07/25/2014 15:17:00 DIS Emergency STU YAN MD [facility] ER POST OP ABD BLOATING [id number] 07/20/2014 14:30:00 07/20/2014 23:59:59 CLS Outpatient MARLO BRYANT MD [facility] ONC [id number] 07/12/2014 11:48:00 07/12/2014 15:00:00 DIS Emergency DORIS GARCIA DIRECTOR OF PSYCHOLOGY [facility] ER VOMITING BLOOD [id number] 06/20/2014 04:41:00 06/20/2014 06:36:00 DIS Emergency VINCE HANNA DO [facility] ER PAIN ALL OVER,VOMITING, FLU SHOT ON 06-15-14 [id number] 06/18/2014 17:54:00 06/18/2014 20:23:00 DIS Emergency DORIS GARCIA APRN [facility] ER BODY ACHES, ABD PAIN [id number] 06/01/2014 14:33:00 06/01/2014 23:59:59 CLS Outpatient MARLO BRYANT MD [facility] ONC [id number] 03/21/2014 19:28:00 03/21/2014 20:47:00 DIS Emergency AMY MCCLAIN MD [facility] ER VOMITING [id number] 02/21/2014 17:35:00 02/21/2014 18:16:00 DIS Emergency DORIS GARCIA APRN [facility] ER COUGH [id number] 01/20/2014 13:50:00 01/20/2014 23:59:59 CLS Outpatient MARLO BRYANT MD [facility] ONC [id number] 01/04/2014 13:47:00 01/04/2014 15:32:00 DIS Emergency KOSTA MAGANA [facility] ER DENTAL PAIN [id number] 01/03/2014 16:44:00 01/03/2014 17:04:00 DIS Emergency DORIS GARCIA APRN [facility] ER L SIDE DENTAL PAIN [id number] 12/29/2013 09:10:00 12/29/2013 23:59:59 CLS Outpatient MARLO BRYANT MD [facility] RAD SPLEENOMEGALY [id number] 12/03/2013 14:13:00 12/03/2013 23:59:59 CLS Outpatient MARLO BRYANT MD [facility] ONC [id number] 09/18/2013 07:34:00 09/18/2013 11:00:00 DIS Outpatient NAWAF TORRES MD [facility] SDC ESOPHAGEAL [id number] 09/17/2013 07:34:00 09/17/2013 23:59:59 CLS Outpatient NAWAF TORRES MD [facility] PREOP ESOPHAGEAL [id number] 08/24/2013 13:09:00 08/24/2013 17:57:00 DIS Emergency TETO BLAND MD [facility] ER DENTAL PAIN [id number] 12/23/2012 13:16:00 12/23/2012 23:59:59 CLS Outpatient MARLO BRYANT MD [facility] ONC [id number] 07/30/2014 13:27:00 Document Registration [id number] 08/25/2012 20:42:00 Document Registration [id number] 05/08/2012 10:20:00 Document Registration [id number] 05/08/2012 09:47:00 Document Registration [id number] 04/11/2012 22:56:00 Document Registration [id number] 04/10/2012 08:23:00 Document Registration [id number] 01/04/2011 09:00:00 Document Registration [id number] 10/31/2010 18:36:00 Document Registration [id number] 04/19/2010 20:52:00 Document Registration [id number] 01/21/2010 00:53:00 Document Registration [id number] 01/16/2010 00:53:00 Document Registration [id number] 05/10/2015 02:26:08 ACT Document Registration [id number] 04/05/2017 15:09:00 Document Registration [id number] 07/29/2018 15:20:00 07/29/2018 23:59:59 [facility] HEATHER FINE APRN [facility] [id number] 03/04/2018 14:00:00 Document Registration [id number] 07/16/2017 13:40:00 Document Registration [id number] 04/02/2017 15:20:00 Document Registration
[2018-08-05] MEDS ORDERED: PIPERACILLIN SODIUM/TAZOBACTAM 4.5 GM in NS (IVPB) 100 ML IV ONE (05:45)
[2018-08-05 05:57] LABS: BILIRUBIN,URINE NEGATIVE (NEGATIVE); CLARITY,URINE SLIGHTLY CLOUDY; COLOR,URINE YELLOW; GLUCOSE, URINE (UA) NEGATIVE (NEGATIVE); KETONES,URINE 2+ (NEGATIVE); LEUKOCYTE ESTERASE ,URINE 3+ (NEGATIVE); NITRITE,URINE POSITIVE (NEGATIVE); PH,URINE 5 (5-9); PROTEIN,URINE 2+ (NEGATIVE); UROBILINOGEN,URINE NORMAL (NORMAL)
[2018-08-05 06:02] LABS: BACTERIA,URINE MODERATE /HPF; RBC,URINE RARE /HPF; WBC,URINE 25-50 /HPF
[2018-08-05 06:53] LABS: HEMOGLOBIN 5.7 G/DL (11.5-16.0)
[2018-08-05] MEDS ORDERED: KETOROLAC 15 MG/ML VIAL IVP PRN (07:15)
[2018-08-05] MEDS ORDERED: ACETAMINOPHEN 650 MG SUPP (TYLENOL) PR PRN (07:15)
[2018-08-05] MEDS ORDERED: ONDANSETRON 4 MG/2 ML (SDV) Z0FRAN IVP PRN (07:15)
[2018-08-05] MEDS ORDERED: fentaNYL INJECTION 100 MCG/2 ML AMP IVP PRN (07:15)
--- NOTE | 2018-08-05 08:14 | Diagnostic Imaging Report ---
INDICATION: Weakness, nausea and vomiting. TECHNIQUE: Single view chest 3:15 AM. CORRELATION STUDY: 06/18/2014 FINDINGS: Lung morris are hyperinflated with chronic type changes. Very slight prominent interstitial markings. Overt Arya B lines does not appear to be suggested. No focal consolidating infiltrate. Heart size, mediastinal and vasculature generally stable. IMPRESSION: 1. Chronic appearing change lung parenchyma. Negative for acute cardiopulmonary abnormality. Interstitial markings are slightly prominent. Dictated by: Dictated on workstation # [id number]
[2018-08-05] MEDS ORDERED: OCTREOTIDE DRIP 500 MCG/NS 99 ML IV SCH ×2 (08:30)
--- NOTE | 2018-08-05 08:35 | Diagnostic Imaging Report ---
INDICATION: Line placement. TECHNIQUE: Single view chest 5:30 AM. CORRELATION STUDY: 08/05/2018 FINDINGS: The heart size, mediastinal configuration and pulmonary vascularity are within normal limits. The lungs are clear with no consolidating infiltrate. Prominent interstitial markings are present, perhaps slightly increased. A right IJ central line has been placed with tip projected over the expected location of the SVC. There is no significant effusion or pneumothorax. IMPRESSION: 1. Interval placement of the right IJ central line tip over the expected location of the SVC. 2. Prominent interstitial markings perhaps slightly increased from prior study. No infiltrate. Dictated by: Dictated on workstation # [id number]
--- NOTE | 2018-08-05 08:45 | Short Stay Summary ---
History of Present Illness History of Present Illness Reason for visit/HPI 53-year-old female brought in her in the early a.m. to [facility] emergency department apparently after having nausea and vomiting up blood. She does have a history of esophageal variceals and does get endoscopies at by gastroenterology. She reports to me this morning she is not due to have her scope until October. She was found to have a hemoglobin of 8.3 and the emergency department. Patient initially was placed in the unit for further monitoring of vital signs and following her hemoglobin. Patient does report she had normal bowel movement earlier today. She was also noted to have a low-grade fever of 100.6 from EMS report. Date of Admission Aug 05, 2018 at 04:27 Date of Discharge August 05, 2018 at 08 40 Time Seen by Provider: 06:50 Attending Physician Lou Reynaga MD Admitting Physician Destiny Haley DO Consult Allergies and Home Medications Allergies Coded Allergies: Sulfa (Sulfonamide Antibiotics) (Unverified Allergy, Intermediate, HIVES, 08/27/12) Home Medications Ciprofloxacin HCl 500 Mg Tablet, 500 MG PO BID Prescribed by: YARIEL PETERSON on 10/02/16 0619 Folic Acid 1 Mg Tab, 2 MG PO DAILY, (Reported) Nadolol 20 Mg Tablet, 0.5 EACH PO DAILY, (Reported) Ondansetron 4 Mg Tab.rapdis, 4 MG SL Q4H Prescribed by: YARIEL PETERSON on 10/02/16 014 Polyethylene Glycol 3350 119 Gm Powder, 17 GM PO TID One capful in 8-12 ounces of water or juice Prescribed by: YARIEL PETERSON on 10/02/16 014 Spironolactone 50 Mg Tablet, 50 MG PO BID Prescribed by: STU YAN on 07/25/14 9115 Patient Home Medication List Home Medication List Reviewed: Yes Past Qrscudx-Rvkpub-Ttqfzm Hx Patient Social History Alcohol Use: Past History Recreational Drug Use: No Smoking Status: Former Smoker Former Smoker, Quit: Aug 15, 2010 Type Used: Cigarettes Physical Abuse Screen: Yes Sexual Abuse: No Recent Foreign Travel: No Contact w/other who traveled: No Recent Hopitalizations: No Recent Infectious Disease Expo: No Immunizations Up To Date Tetanus Booster (TDap): Less than 5yrs Pediatric: No Date of Pneumonia Vaccine: May 13, 2013 Date of Influenza Vaccine: May 15, 2014 Seasonal Allergies Seasonal Allergies: No Surgeries Yes ( SECTION 08/2000, OVARY REMOVED 2000) Section, Oophorectomy Respiratory No Currently Using CPAP: No Currently Using BIPAP: No Cardiovascular No Neurological No 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 System Hx 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 Disorders: No Sexually Transmitted Disease: No HIV/AIDS: No Female 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 Disorders: Denies 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 Genitourinary No Gastrointestinal Yes (esophageal varices) Gastrointestinal Bleed, Esophageal Varices, Ulcer, Cirrhosis Musculoskeletal No Endocrine History of Endocrine Disorders: No HEENT History of HEENT Disorders: No Loss of Vision: Denies Hearing Impairment: Denies Cancer No Psychosocial History of Psychiatric Problem: No Behavioral Health Disorders: Depression Integumentary History of Skin or Integumenta: No Blood Transfusions History of Blood Disorders: No Adverse Reaction to a Blood Tr: No Family Medical History Significant Family History: No Pertinent Family Hx Review of Systems Constitutional: see HPI Physical Exam Vital Signs Vital Signs - First Documented 08/05/18 08/05/18 02:57 04:28 Temp 100.6 Pulse 76 Resp 19 B/P (MAP) 96/52 (67) Pulse Ox 96 O2 Delivery Room Air Capillary Refill : Less Than 3 Seconds Height, Weight, BMI Height: 5'2.00" Weight: 107lbs. 3.0oz. 48.452832ui; 19.6 BMI Method:Stated General Appearance: Other (Appears tired) Eyes: Bilateral Eye Normal Inspection HEENT: Moist Mucous Membranes Neck: Supple Respiratory: Lungs Clear Cardiovascular: Regular Rate, Rhythm Gastrointestinal: Soft (And nondistended) Rectal: Deferred Neurologic/Psychiatric: Oriented x3 Skin: Other (Perineal) Clinical Quality Measures DVT/VTE Risk/Contraindication: Risk Factor Score Per Nursin RFS Level Per Nursing on Admit: 1=Low/No VTE PPX Short Stay Diagnosis Discharge Diagnosis-Short Stay Admission Diagnosis: 1. Dehydration 2. Gastroenteritis suspected in ED 3. hematemesis Final Discharge Diagnosis: 1. Hematemesis with suspected active upper bleed 2. Esophageal varices 3. Anemia down to 5.3 Conclusion Labs Laboratory Tests 08/05/18 03:05: White Blood Count 7.4, Red Blood Count 2.92L, Hemoglobin 8.3L, Hematocrit 25L, Mean Corpuscular Volume 85, Mean Corpuscular Hemoglobin 28, Mean Corpuscular Hemoglobin Concent 34, Red Cell Distribution Width 14.9H, Platelet Count 102L, Mean Platelet Volume 9.6, Neutrophils (%) (Auto) 89H, Lymphocytes (%) (Auto) 9L , Monocytes (%) (Auto) 1, Eosinophils (%) (Auto) 1, Basophils (%) (Auto) 0, Neutrophils # (Auto) 6.6, Lymphocytes # (Auto) 0.6L, Monocytes # (Auto) 0.1, Eosinophils # (Auto) 0.1, Basophils # (Auto) 0.0, Neutrophils % (Manual) 82, Lymphocytes % (Manual) 9, Monocytes % (Manual) 1, Eosinophils % (Manual) 2, Basophils % (Manual) 1, Band Neutrophils 4, Reactive Lymphocytes 1, Polychromasia SLIGHT, Poikilocytosis SLIGHT, Anisocytosis SLIGHT, Macrocytosis SLIGHT, Elliptocytes SLIGHT, Rouleau SLIGHT, Prothrombin Time 15.6H, INR Comment 1.2, Activated Partial Thromboplast Time 27, Sodium Level 138, Potassium Level 4.0, Chloride Level 107, Carbon Dioxide Level 20L, Anion Gap 11 , Blood Urea Nitrogen 33H, Creatinine 0.77, Estimat Glomerular Filtration Rate > 60, BUN/Creatinine Ratio 43, Glucose Level 126H, Calcium Level 9.0, Corrected Calcium 9.2, Magnesium Level 1.8, Total Bilirubin 1.1H, Aspartate Amino Transf ( AST/SGOT) 33, Alanine Aminotransferase (ALT/SGPT) 30, Alkaline Phosphatase 70, Total Protein 6.3L, Albumin 3.7, Lipase 48 08/05/18 05:42: Urine Color YELLOW, Urine Clarity SLIGHTLY CLOUDY, Urine pH 5, Urine Specific [place] 1.015L, Urine Protein 2+H, Urine Glucose (UA) NEGATIVE, Urine Ketones 2+ H, Urine Nitrite POSITIVEH, Urine Bilirubin NEGATIVE, Urine Urobilinogen NORMAL , Urine Leukocyte Esterase 3+H, Urine RBC (Auto) 1+H, Urine RBC RARE, Urine WBC 25-50H, Urine Squamous Epithelial Cells NONE, Urine Crystals NONE, Urine Bacteria MODERATEH, Urine Casts NONE, Urine Mucus NEGATIVE, Urine Culture Indicated YES 08/05/18 05:58: Hemoglobin 5.7#*L, Hematocrit 17*L 08/05/18 06:58: Lactic Acid Level 0.61 Microbiology 08/05/18 Influenza Types A,B Antigen (ULISES) - Final, Complete Conclusion/Plan Patient was initially placed in ICU for further monitoring. Her hemoglobin came back 5.3. Surgical consultation obtained. Due to her history of esophageal varices she will need to be transferred as soon as possible to [facility] where her assistant center director is located and appropriate treatment is available. COURTNEY DU MD Aug 05, 2018 08:45
--- NOTE | 2018-08-05 08:46 | Consultation ---
History of Present Illness History of Present Illness Patient Consulted On(janelle/time) 08/05/18 08:40 Date Seen by Provider: Aug 05, 2018 Time Seen by Provider: 08:40 Reason for Visit: upper GI bleeding with anemia secondary to bleeding History of Present Illness This lady has established portal hypertension due to alcoholic liver disease, resulting in esophageal varices that have been managed by endoscopic technique at [facility] for the last several years. She developed epigastric discomfort, followed by hematemesis over the last 36 hours. She was brought emergency room and found to be firmly anemic with a hemoglobin of 5.7. In addition, she has been hypotensive, very likely due to ongoing blood loss. She has been on selective beta blockers in anticipation of reducing the splanchnic blood flow. Allergies and Home Medications Allergies Coded Allergies: Sulfa (Sulfonamide Antibiotics) (Unverified Allergy, Intermediate, HIVES, 08/27/12) Home Medications Ciprofloxacin HCl 500 Mg Tablet, 500 MG PO BID Prescribed by: YARIEL PETERSON on 10/02/16 0619 Folic Acid 1 Mg Tab, 2 MG PO DAILY, (Reported) Nadolol 20 Mg Tablet, 0.5 EACH PO DAILY, (Reported) Ondansetron 4 Mg Tab.rapdis, 4 MG SL Q4H Prescribed by: YARIEL PETERSON on 10/02/16 014 Polyethylene Glycol 3350 119 Gm Powder, 17 GM PO TID One capful in 8-12 ounces of water or juice Prescribed by: YARIEL PETERSON on 10/02/16 014 Spironolactone 50 Mg Tablet, 50 MG PO BID Prescribed by: STU YAN on 07/25/14 1455 Patient Home Medication List Home Medication List Reviewed: Yes Past Ejwljbu-Ltmopp-Bsdyuz Hx Patient Social History Alcohol Use: Past History Recreational Drug Use: No Smoking Status: Current Everyday Smoker Type Used: Cigarettes Former Smoker, Quit: Aug 15, 2010 Recent Foreign Travel: No Contact w/Someone Who Travel: No Recent Infectious Disease Expo: No Recent Hopitalizations: No Immunizations Up To Date Tetanus Booster (TDap): Less than 5yrs PED Vaccines UTD: No Date of Pneumonia Vaccine: May 13, 2013 Date of Influenza Vaccine: May 15, 2014 Seasonal Allergies Seasonal Allergies: No Past Medical History Surgeries: Yes ( SECTION 08/2000, OVARY REMOVED 2000) Section, Oophorectomy Respiratory: Yes COPD Currently Using CPAP: No Currently Using BIPAP: No Cardiac: No Neurological: No 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 Disorders: No Female 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 Disorders: Denies 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 Sexually Transmitted Disease: No HIV/AIDS: No Genitourinary: No Gastrointestinal: Yes (esophageal varices) Gastrointestinal Bleed, Esophageal Varices, Ulcer, Cirrhosis Musculoskeletal: No Endocrine: No HEENT: No Loss of Vision: Denies Hearing Impairment: Denies Cancer: No Psychosocial: No Depression Integumentary: No Blood Disorders: No Adverse Reaction/Blood Tranf: No Family Medical History No Pertinent Family Hx Review of Systems-General Constitutional: weakness EENTM: no symptoms reported Respiratory: cough Cardiovascular: see HPI Gastrointestinal: see HPI Genitourinary: no symptoms reported Musculoskeletal: no symptoms reported Skin: see HPI Psychiatric/Neurological: No Symptoms Reported Physical Exam-General Problems Physical Exam Vital Signs Vital Signs - First Documented 08/05/18 08/05/18 02:57 04:28 Temp 100.6 Pulse 76 Resp 19 B/P (MAP) 96/52 (67) Pulse Ox 96 O2 Delivery Room Air Capillary Refill : Less Than 3 Seconds General Appearance: mild distress Neck: supple Respiratory: lungs clear Cardiovascular: tachycardia Gastrointestinal: non tender, soft, other Rectal: deferred Extremities: non-tender Neurologic/Psychiatric: alert, oriented x 3 Skin: pallor Comments No incisional hernia. No tenderness. Assessment/Plan Assessment/Plan Admission Diagnosis/Plan Lady with hypotension and acute anemia due to blood loss possibly secondary to esophageal varices. Coagulation within normal limits. Reasonable to continue blood transfusion. I have initiated octreotide therapy to reduce splanchnic blood. Due to her management at [facility], it is appropriate to arrange for transfer. I have discussed this with her primary physician Dr. Duvall, who agreed to undertake the necessary arrangements. Admission Status: Observation Clinical Quality Measures DVT/VTE Risk/Contraindication: Risk Factor Score Per Nursin RFS Level Per Nursing on Admit: 1=Low/No VTE PPX AKI KELLY MD Aug 05, 2018 08:46
--- NOTE | 2018-08-05 08:56 | Discharge Inst-Simple/Standard ---
Discharge Inst-Standard Patient Instructions/Follow Up Plan of Care/Instructions/FU: [facility]-gastroenterology Activity as Tolerated: No Discharge Diet: Other Diet (NPO) COURTNEY DU MD Aug 05, 2018 08:56
[2018-08-05] MEDS ORDERED: PANTOPRAZOLE 40 MG (PROTONIX) VIAL IV SCH (09:00)
[2018-08-05] MEDS ORDERED: NOREPINEPHRINE 4 MG in NS (IVPB) 250 ML IV SCH (09:00)
[2018-08-06] MEDS ORDERED: POTASSIUM CL 10MEQ/50ML IVPB 50 ML IV SCH (06:00)
[2018-08-06] MEDS ORDERED: MAGNESIUM 1 GM/100 ML IVPB 100 ML IV SCH (06:00)
[2018-08-06] MEDS ORDERED: KCL 20 MEQ TAB (K-DUR) PO SCH (06:00)
== END 2018-08-05 10:49 | disposition short-term general hospital (02) | DRG 432 ==
LOC: EDUNIT# 02:57 → ER 03:00 → ICU 04:27
PROVIDERS: ADMIT Family Medicine; ATTEND Family Medicine
DX: K70.30 Alcoholic cirrhosis of liver without ascites (principal); I85.11 Secondary esophageal varices with bleeding; D62 Acute posthemorrhagic anemia; K76.6 Portal hypertension; E86.0 Dehydration; I95.89 Other hypotension; F17.210 Nicotine dependence, cigarettes, uncomplicated; J44.9 Chronic obstructive pulmonary disease, unspecified; K70.40 Alcoholic hepatic failure without coma; F32.9 Major depressive disorder, single episode, unspecified; F10.11 Alcohol abuse, in remission; Z90.721 Acquired absence of ovaries, unilateral; Z87.11 Personal history of peptic ulcer disease
CPT/HCPCS: 36415; 71045; 80053; 81000; 83605; 83690; 83735; 85007; 85014; 85018; 85027; 85610; 85730; 86850; 86900; 86901; 86920; 87040; 87077; 87081; 87088; 87186; 87804; 96361; 96365; 96375; 96376

== ENCOUNTER 2018-08-14 14:02 | Outpatient (RCR) | payer OTHER ==
[2018-08-14 16:56] LABS: BASOPHILS % (AUTO) 1 % (0-10); EOSINOPHILS # (AUTO) 0.1 10^3/uL (0.0-0.3); EOSINOPHILS % (AUTO) 2 % (0-10); HEMATOCRIT 25 % (35-52); HEMOGLOBIN 8.1 G/DL (11.5-16.0); LYMPHOCYTES # (AUTO) 0.6 X 10^3 (1.0-4.0); LYMPHOCYTES % (AUTO) 20 % (12-44); MEAN CORPUSCULAR HEMOGLOBIN 27 PG (25-34); MEAN CORPUSCULAR HGB CONC 33 G/DL (32-36); MEAN CORPUSCULAR VOLUME 84 FL (80-99); MEAN PLATELET VOLUME 10.2 FL (7.4-10.4); MONOCYTES # (AUTO) 0.3 X 10^3 (0.0-1.0); MONOCYTES % (AUTO) 10 % (0-12); NEUTROPHILS # (AUTO) 2.1 X 10^3 (1.8-7.8); NEUTROPHILS % (AUTO) 68 % (42-75); PLATELET COUNT 94 10^3/uL (130-400); RED CELL DISTRIBUTION WIDTH 14.9 % (10.0-14.5); WHITE BLOOD COUNT 3.1 10^3/uL (4.3-11.0)
[2018-08-14 17:06] LABS: INR 1.2 (0.8-1.4); PROTHROMBIN TIME PATIENT 14.9 SEC (12.2-14.7)
[2018-08-14 17:15] LABS: ALBUMIN 3.7 GM/DL (3.2-4.5); BILIRUBIN,TOTAL 0.7 MG/DL (0.1-1.0); CALCIUM 8.9 MG/DL (8.5-10.1); CREATININE SERUM 1.07 MG/DL (0.60-1.30); POTASSIUM 3.6 MMOL/L (3.6-5.0); TOTAL PROTEIN 6.4 GM/DL (6.4-8.2)
== END 2018-11-12 | disposition home or self-care (01) ==
LOC: ONC 14:02
PROVIDERS: ATTEND Internal Medicine Hematology & Oncology
DX: D69.6 Thrombocytopenia, unspecified (principal); D72.819 Decreased white blood cell count, unspecified; D50.9 Iron deficiency anemia, unspecified; B18.2 Chronic viral hepatitis C; K70.30 Alcoholic cirrhosis of liver without ascites; I85.10 Secondary esophageal varices without bleeding; R16.1 Splenomegaly, not elsewhere classified; F10.21 Alcohol dependence, in remission; Z79.899 Other long term (current) drug therapy; Z87.891 Personal history of nicotine dependence
CPT/HCPCS: 36415; 80053; 82105; 82728; 85025; 85610

== ENCOUNTER → 2018-08-14 | Outpatient (CLI) | payer SELFPAY ==
--- NOTE | 2018-08-14 17:06 | Diagnostic Imaging Report ---
PROCEDURE: US Abdomen, limited. TECHNIQUE: Multiple Realtime grayscale images were obtained over the abdomen in various projections. INDICATION: Evaluate for ascites. FINDINGS: A limited ultrasound of the abdomen demonstrates a large amount of ascites. A spot on the right lower quadrant was marked. IMPRESSION: There is a large amount of ascites. A spot on the right lower quadrant was marked. Dictated by: Dictated on workstation # [id number]
== END ==
LOC: RAD 15:46
PROVIDERS: ATTEND Internal Medicine Hematology & Oncology
DX: I85.10 Secondary esophageal varices without bleeding (principal); R16.1 Splenomegaly, not elsewhere classified; R18.8 Other ascites
CPT/HCPCS: 76705

== ENCOUNTER 2018-08-15 14:24 | Emergency (ER) | payer SELFPAY ==
[~2018-08-15] VITALS: Ht 157.5 cm; Wt 48.1 kg
--- OUTSIDE RECORDS SUMMARY | 2018-08-15 14:30 | XMS REPORT | Encounter Summary ---
Author Author [facility] Organization [facility] Address Unknown Phone Unavailable Care Team Providers Care Knowledge Architect Name Role Phone Xuan Solomon MD Unavailable [...] Description Date Type Department Jayla Adkins MD [address] [place] [address] 08/14/2018 Documentation [facility] [address] [place] [address] Social History Date Tobacco Use [...] Status Date of Assessment Functional Status Response 08/08/2018 Does the patient have a hearing impairment: No 08/08/2018 Does the patient have a visual impairment: No 08/08/2018 Does the patient have impaired ambulation: No 08/08/2018 Does the patient have an activity of daily living No (ADL) impairment: 08/08/2018 Does the patient have an instrumental activity of No daily living (IADL) impairment: Date of Assessment Cognitive Status Response 08/08/2018 Does the patient have a cognitive impairment: No as of this encounter Progress Notes * Renee Maldonado RN - 08/14/2018 1:47 PM TRACK MAN LM for pt to call back to see if the furosemide helped with the abdominal swelling. K MAN in this encounter Plan of Treatment Care Team Description Date Type Specialty Carlyle Bone MD [address] [place] [address] [phone] End stage liver disease (HCC) 09/04/2018 Hospital Encounter Carlyle Bone MD [address] [place] [address] [phone] ESOPHAGOGASTRODUODENOSCOPY WITH BAND LIGATION ESOPHAGEAL/ GASTRIC VARICES - FLEXIBLE 09/04/2018 Surgery as of this encounter Visit Diagnoses Not on filein this encounter
--- OUTSIDE RECORDS SUMMARY | 2018-08-15 14:30 | XMS REPORT | Encounter Summary ---
Author Author [facility] Organization [facility] Address Unknown Phone Unavailable Care Team Providers Care Dining Room Cashier Name Role Phone Xuan Solomon MD Unavailable True Arauz MD Unavailable Radha Chance Unavailable Unavailable Jayla Adkins MD Unavailable Eleuterio Berger MD Unavailable Gabriel Kaur RN Unavailable Unavailable Judy Harrison TOOL PUSHER PCP Michelle Edwards RN Unavailable Unavailable Magalis Stinson Unavailable Unavailable Ervin Stevenson MD Unavailable Asiya Culver Unavailable Unavailable Akila Zavala RN Unavailable Yessi Carreon MD Unavailable Encounter Details Care Team Description Date Type Department Germania Pop APRN [address] [place] [address] 08/15/2018 Documentation [facility] [address] [place] [address] Social History Date Tobacco Use [...] as of this encounter Progress Notes * Germania Pop APRN - 08/15/2018 1:15 PM CHANNELING MACHINE RUNNER Patient is in need of a paracentesis. Ascites has gradually increased since hospital discharge. She was started on diuretics earlier this week with little improvement in ascites. I have been in contact with both a radiologist and a surgeon within the [facility] trying to arrange for a para. Patient does not currently have insurance, and so she will need to proceed to their ER for para. Patient verbalizes understanding. We will touch base with her tomorrow. NELING MACHINE RUNNER in this encounter Plan of Treatment Care Team Description Date Type Specialty Carlyle Bone MD [address] [place] [address] [phone] End stage liver disease (HCC) 09/04/2018 Hospital Encounter Carlyle Bone MD [address] [place] [address] [phone] ESOPHAGOGASTRODUODENOSCOPY WITH BAND LIGATION ESOPHAGEAL/ GASTRIC VARICES - FLEXIBLE 09/04/2018 Surgery as of this encounter Visit Diagnoses Not on filein this encounter
--- OUTSIDE RECORDS SUMMARY | 2018-08-15 14:30 | XMS REPORT | Encounter Summary ---
Author Author [facility] Organization [facility] Address Unknown Phone Unavailable Care Team Providers Care Packaging Line Operator Name Role Phone Xaun Solomon MD Unavailable True Arauz MD Unavailable Radha Chance Unavailable Unavailable Jayla Adkins MD Unavailable Eleuterio Berger MD Unavailable Gabriel Kaur RN Unavailable Unavailable Judy Harrison APRN PCP Michelle Edwards RN Unavailable Unavailable Magalis Stinson Unavailable Unavailable Ervin Stevenson MD Unavailable Asiya Culver Unavailable Unavailable Akila Zavala RN Unavailable Yessi Carreon MD Unavailable Reason for Visit * Reason Comments Worsening Symptoms Encounter Details Care Team Description Date Type Department Jayla Adkins MD [address] [place] [address] Worsening Symptoms 08/09/2018 Telephone [facility] [address] [place] [address] Social History Date Tobacco Use [...] Telephone Encounter - Renee Maldonado RN - 08/09/2018 12:29 PM OFFAL ICER POULTRY Returned call to pt instructed her to take Spironolactone 50mg daily for 3 days to see if that help with the bloating/fluid retention. She will call back and report how she is feeling. L ICER POULTRY * Telephone Encounter - Ava Desir - 08/09/2018 10:32 AM OFFAL ICER POULTRY Pt has abdominal bloating and wants to know if there is anything she can do for it. L ICER POULTRY in this encounter Plan of Treatment Care Team Description Date Type Specialty Carlyle Bone MD [address] [place] [address] [phone] End stage liver disease (HCC) 09/04/2018 Hospital Encounter Carlyle Bone MD [address] [place] [address] [phone] ESOPHAGOGASTRODUODENOSCOPY WITH BAND LIGATION ESOPHAGEAL/ GASTRIC VARICES - FLEXIBLE 09/04/2018 Surgery as of this encounter Visit Diagnoses Not on filein this encounter
--- OUTSIDE RECORDS SUMMARY | 2018-08-15 14:30 | XMS REPORT | Encounter Summary ---
Author Author [facility] Organization [facility] Address Unknown Phone Unavailable Care Team Providers Care Supervisory Forester Name Role Phone Xuan Solomon MD Unavailable True rAauz MD Unavailable Radha Chance Unavailable Unavailable Jayla Adkins MD Unavailable Eleuterio Berger MD Unavailable Gabriel Kaur RN Unavailable Unavailable Judy Harrison APRN PCP Michelle Edwards RN Unavailable Unavailable Magalis Stinson Unavailable Unavailable Ervin Stevenson MD Unavailable Asiya Culver Unavailable Unavailable Akila Zavala RN Unavailable Yessi Carreon MD Unavailable Reason for Visit * Reason Comments Abdomen Swelling Encounter Details Care Team Description Date Type Department Jayla Adkins MD [address] [place] [address] Abdomen Swelling 08/12/2018 Telephone [facility] [address] [place] [address] Social History Date Tobacco Use [...] Telephone Encounter - Renee Maldonado RN - 08/14/2018 1:58 PM ACCOUNT SERVICES ASSOCIATE Returned call to pt. She did not answer cell phone LM for her to call back. Also called home phone number. LM with family member to have pt call us. UNT SERVICES ASSOCIATE * Telephone Encounter - Katerina Alicia - 08/14/2018 11:35 AM ACCOUNT SERVICES ASSOCIATE Please return a call to Aisha regarding fluid. She is unable to work and needs to speak to you maykel. UNT SERVICES ASSOCIATE * Telephone Encounter - Kathia Thomas RN - 08/12/2018 4:08 PM ACCOUNT SERVICES ASSOCIATE Call received from patient stating that her abdominal swelling/bloating has not improved with restarting spironolactone 50mg. Patient states that the spironolactone slightly increased her urine output and that she is unsure if it is gas or fluid. Patient states she is taking Miralax once daily for BM management and has only had 1 small BM in a few days. Discussed with Germania Pop APRN DOPER and she advised to start patient on Furosemide 40mg daily and keep spironolactone 50mg daily. She also advised to call patient Sunday to check on patient status to determine if patient requires paracentesis. Call placed to patient to advise, pt v/u and requests rx be sent to [facility]. Also advised patient to increase Miralax to BID for better BM management, especially while she is taking oxycodone, pt v/u. Routing to [place] to notify. Kathia Thomas TEST EXAMINER UNT SERVICES ASSOCIATE in this encounter Plan of Treatment Care Team Description Date Type Specialty Carlyle Bone MD [address] [place] [address] [phone] End stage liver disease (HCC) 09/04/2018 Hospital Encounter Carlyle Bone MD [address] [place] [address] [phone] ESOPHAGOGASTRODUODENOSCOPY WITH BAND LIGATION ESOPHAGEAL/ GASTRIC VARICES - FLEXIBLE 09/04/2018 Surgery as of this encounter Visit Diagnoses Not on filein this encounter
--- OUTSIDE RECORDS SUMMARY | 2018-08-15 14:30 | XMS REPORT | Encounter Summary ---
Author Author [facility] Organization [facility] Address Unknown Phone Unavailable Care Team Providers Care Express Clerk Name Role Phone Xuan Solomon MD Unavailable [...] Description Date Type Department Jayla Adkins MD [address] [place] [address] Worsening Symptoms 08/14/2018 Telephone [facility] [address] [place] [address] Social History Date Tobacco Use [...] encounter Miscellaneous Notes * Telephone Encounter - Katerina Alicia - 08/15/2018 10:29 AM BRAND PROTECTION MANAGER Call from Aisha. Very uncomfortable and wanting paracentesis done locally. Asking if ER there can do the procedure. Please return her call. D PROTECTION MANAGER * Telephone Encounter - Katerina Alicia - 08/15/2018 9:10 AM BRAND PROTECTION MANAGER Call from Aisha reegarding a return call maykel. She needs to make arrangements if she has to come back up here. D PROTECTION MANAGER * Telephone Encounter - Renee Maldonado RN - 08/14/2018 3:49 PM BRAND PROTECTION MANAGER Spoke to pt. She is currently at oncology office. Furosemide was helpful for only 1-2 days. She still feels bloated and her lower extremities are swollen. Oncology office is ordering ultrasound and will arrange for para if needed. They will send lab results once completed. We may be able to adjust diuretics. Will follow up with pt. D PROTECTION MANAGER in this encounter Plan of Treatment Care Team Description Date Type Specialty Carlyle Bone MD [address] [place] [address] [phone] End stage liver disease (HCC) 09/04/2018 Hospital Encounter Carlyle Bone MD [address] [place] [address] [phone] ESOPHAGOGASTRODUODENOSCOPY WITH BAND LIGATION ESOPHAGEAL/ GASTRIC VARICES - FLEXIBLE 09/04/2018 Surgery as of this encounter Visit Diagnoses Not on filein this encounter
--- OUTSIDE RECORDS SUMMARY | 2018-08-15 14:30 | XMS REPORT | Clinical Summary ---
Author Author [facility] Organization [facility] Address Unknown Phone Unavailable Care Team Providers Care Trial Attorney Name Role Phone Xuan Solomon MD Unavailable [...] in the Health Information Management department at [phone] for further assistance in locating additional records.[facility] Allergies Comments Active Allergy Reactions Severity Noted Date Sulfa (Sulfonamide HIVES Medium 09/08/2013 Antibiotics) Medications End Date Status Medication Sig Dispensed Refills Start Date Active nadolol(+) (CORGARD) 20 Take 10 mg by 0 mg tablet mouth at bedtime daily. Active folic acid (FOLVITE) 1 mg Take 1 mg by 0 tablet mouth every morning. Active RABEprazole DR (+) Take 1 Tab [...] WOMEN'S by mouth ACTIVE PO) daily. Active furosemide (LASIX) 40 mg Take one 30 tablet 1 tablet tablet by 8 mouth every morning. 08/07/2018 Discontinued other medication 1 Dose. 0 Medication Name & Strength: Circulation and Nancy Support Dose(how many): 1 tab Frequency(how often): QDAY 08/12/2018 ciprofloxacin (CIPRO) 500 Take one 6 tablet 0 201 mg tablet tablet by 8 mouth twice daily for 3 days. Active Problems Problem Noted Date Acute blood loss anemia 08/05/2018 Underweight 08/05/2018 UTI (lower urinary tract infection) 08/05/2018 Acute erosive gastritis 10/19/2015 Hypoalbuminemia 07/13/2014 Upper GI bleeding 07/12/2014 Anemia 07/12/2014 Thrombocytopenia 07/12/2014 Cirrhosis 09/17/2013 Hepatitis C 09/17/2013 Esophageal varices 09/17/2013 Encounters Care Team Description Date Type Specialty Germania Pop APRN 08/15/2018 Documentation Hepatology Jayla Adkins MD Worsening Symptoms 08/14/2018 Telephone HepatJayla Wheeler MD 08/14/2018 Documentation Hepatology Jayla Adkins MD Abdomen Swelling 08/12/2018 Telephone Hepatology Jayla Adkins MD Other (Med Question) 08/12/2018 Telephone Hepatology Jayla Adkins MD Worsening Symptoms 08/09/2018 Telephone Hepatology Yessi Jones RN End stage liver disease (HCC) (Primary Dx) 08/07/2018 Prep for Case Hepatology Rambo Zapata MD ESOPHAGOGASTRODUODENOSCOPY WITH BIOPSY - FLEXIBLE 08/05/2018 Surgery Tal Marr MD Acute blood loss anemia 08/05/2018 Hospital - Encounter 08/08/2018 08/05/2018 Hospital Radiology Encounter 08/05/2018 Hospital Radiology Encounter from Last 3 Months Family History Medical [...] Vital Signs Time Taken Vital Sign Reading 08/08/2018 11:35 AM BELT SPLICER Blood Pressure 106/78 08/08/2018 11:35 AM BELT SPLICER Pulse 80 08/08/2018 11:35 AM BELT SPLICER Temperature 36.7 C (98.1 F) 10/18/2017 1:55 PM BELT SPLICER Respiratory Rate 16 08/08/2018 11:35 AM BELT SPLICER Oxygen Saturation 97% - Inhaled Oxygen - Concentration 08/07/2018 8:31 AM BELT SPLICER Weight 45.4 kg (100 lb) 08/07/2018 8:31 AM BELT SPLICER Height 157.5 cm (5' 2") 08/07/2018 8:31 AM BELT SPLICER Body Mass Index 18.29 Plan of Treatment Care Team Description Date Type Specialty Carlyle Bone MD [address] [place] [address] [phone] End stage liver disease (HCC) 09/04/2018 Hospital Encounter Carlyle Bone MD [address] [place] [address] [phone] ESOPHAGOGASTRODUODENOSCOPY WITH BAND LIGATION ESOPHAGEAL/ GASTRIC VARICES - FLEXIBLE 09/04/2018 Surgery Health Maintenance Due Date Last Done Comments PHYSICAL (COMPREHENSIVE) 1972 EXAM HIV SCREENING 1980 DTAP/TDAP VACCINES (1 - 1983 Tdap) CERVICAL CANCER SCREENING 1995 BREAST CANCER SCREENING 2005 COLORECTAL CANCER 2015 SCREENING SHINGLES RECOMBINANT 2015 VACCINE (1 of 2) INFLUENZA VACCINE 03/13/2018 06/29/2008, 06/17/2007 Procedures Comments Procedure Name Priority Date/Time Associated Diagnosis CBC Routine 08/08/2018 5:11 AM BELT SPLICER COMPREHENSIVE METABOLIC Routine 08/08/2018 PANEL 5:11 AM BELT SPLICER PHOSPHORUS Routine 08/08/2018 5:11 AM BELT SPLICER MAGNESIUM Routine 08/08/2018 5:11 AM BELT SPLICER PROTIME INR (PT) Routine 08/08/2018 5:11 AM BELT SPLICER 2-D + DOPPLER KARYN 08/07/2018 ECHOCARDIOGRAM 8:31 AM BELT SPLICER CBC Routine 08/07/2018 3:41 AM BELT SPLICER COMPREHENSIVE METABOLIC Routine 08/07/2018 PANEL 3:41 AM BELT SPLICER PHOSPHORUS Routine 08/07/2018 3:41 AM BELT SPLICER MAGNESIUM Routine 08/07/2018 3:41 AM BELT SPLICER PROTIME INR (PT) Routine 08/07/2018 3:41 AM BELT SPLICER ABDOMEN AP ONLY Routine 08/06/2018 5:06 PM BELT SPLICER UA REFLEX CULTURE LABEL Routine 08/06/2018 10:33 AM BELT SPLICER URINALYSIS MICROSCOPIC Routine 08/06/2018 REFLEX TO CULTURE 10:33 AM BELT SPLICER URINALYSIS DIPSTICK Routine 08/06/2018 REFLEX TO CULTURE 10:33 AM BELT SPLICER CULTURE-URINE 08/06/2018 W/SENSITIVITY 10:33 AM BELT SPLICER COMPREHENSIVE METABOLIC STAT 08/06/2018 PANEL 8:55 AM BELT SPLICER US DOPPLER ABD PELV KARYN 08/06/2018 RETROPER COMP 6:27 AM BELT SPLICER US ABDOMEN COMPLETE KARYN 08/06/2018 6:27 AM BELT SPLICER CBC Routine 08/06/2018 3:52 AM BELT SPLICER PHOSPHORUS Routine 08/06/2018 3:52 AM BELT SPLICER MAGNESIUM Routine 08/06/2018 3:52 AM BELT SPLICER PROTIME INR (PT) Routine 08/06/2018 3:52 AM BELT SPLICER MAGNESIUM Add on 08/05/2018 11:45 PM BELT SPLICER TROPONIN-I STAT 08/05/2018 11:45 PM BELT SPLICER COMPREHENSIVE METABOLIC Routine 08/05/2018 PANEL 11:45 PM BELT SPLICER CBC Routine 08/05/2018 11:45 PM BELT SPLICER TROPONIN-I STAT 08/05/2018 6:28 PM BELT SPLICER CBC Routine 08/05/2018 6:28 PM BELT SPLICER EGD REPORT 08/05/2018 4:46 PM BELT SPLICER ESOPHAGOGASTRODUODENOSCOP 08/05/2018 Upper GI bleeding Y WITH BIOPSY - FLEXIBLE 4:05 PM BELT SPLICER CBC STAT 08/05/2018 3:10 PM BELT SPLICER INFLUENZA A/B AG (RAPID STAT 08/05/2018 TEST) 1:12 PM BELT SPLICER CHEST SINGLE VIEW KARYN 08/05/2018 1:09 PM BELT SPLICER TYPE & CROSSMATCH KARYN 08/05/2018 1:04 PM BELT SPLICER FREE T4-FREE THYROXINE Routine 08/05/2018 1:04 PM BELT SPLICER PROCALCITONIN Add on 08/05/2018 1:04 PM BELT SPLICER TSH WITH FREE T4 REFLEX Routine 08/05/2018 1:04 PM BELT SPLICER TROPONIN-I STAT 08/05/2018 1:04 PM BELT SPLICER BNP (B-TYPE NATRIURETIC Routine 08/05/2018 PEPTI) 1:04 PM BELT SPLICER PHOSPHORUS Routine 08/05/2018 1:04 PM BELT SPLICER MAGNESIUM Routine 08/05/2018 1:04 PM BELT SPLICER IONIZED CALCIUM Routine 08/05/2018 1:04 PM BELT SPLICER LACTIC ACID (BG - RAPID Routine 08/05/2018 LACTATE) 1:04 PM BELT SPLICER COMPREHENSIVE METABOLIC Routine 08/05/2018 PANEL 1:04 PM BELT SPLICER PROTIME INR (PT) Routine 08/05/2018 1:04 PM BELT SPLICER CBC AND DIFF Routine 08/05/2018 1:04 PM BELT SPLICER ECG 12-LEAD STAT 08/05/2018 12:30 PM BELT SPLICER GENERAL RAD CHEST Routine 08/05/2018 Diagnosis unknown EXTERNAL IMAGING 10:44 AM BELT SPLICER GENERAL RAD CHEST Routine 08/05/2018 EXTERNAL IMAGING 10:43 AM BELT SPLICER ECG-SCAN 08/05/2018 12:00 AM BELT SPLICER from Last 3 Months Results * PROTIME INR (PT) (08/08/2018 5:11 AM BELT SPLICER) Only the most recent of 4 results within the time period is included. INR 1.1 0.8 - 1.2 [facility] Specimen Blood Performing Organization Address City/State/Zipcode Phone Number MAIN LAB [address] [place] [address] * CBC (08/08/2018 5:11 AM BELT SPLICER) Only the most recent of 6 results within the time period is included. White Blood Cells 2.7 (L) 4.5 - 11.0 K/UL [facility] RBC 2.74 (L) 4.0 - 5.0 M/UL [facility] Hemoglobin 8.0 (L) 12.0 - 15.0 GM/DL [facility] Hematocrit 23.4 (L) 36 - 45 % [facility] MCV 85.4 80 - 100 FL [facility] MCH 29.1 26 - 34 PG [facility] MCHC 34.1 32.0 - 36.0 G/DL [facility] RDW 15.5 (H) 11 - 15 % [facility] Platelet Count 66 (L) 150 - 400 K/UL [facility] MPV 8.2 7 - 11 FL [facility] Specimen Blood Performing Organization Address [facility] Phone Number [facility] [address] [place] [address] * PHOSPHORUS (08/08/2018 5:11 AM BELT SPLICER) Only the most recent of 4 results within the time period is included. Phosphorus 2.5Comment: NOTE NEW REFERENCE 2.0 - 4.5 MG/DL [facility] RANGES Specimen Blood Performing Organization Address [facility] Phone Number [facility] [address] [place] [address] * MAGNESIUM (08/08/2018 5:11 AM BELT SPLICER) Only the most recent of 5 results within the time period is included. Magnesium 1.8 1.6 - 2.6 mg/dL [facility] Specimen Blood Performing Organization Address [facility] Phone Number [facility] [address] [place] [address] * COMPREHENSIVE METABOLIC PANEL (08/08/2018 5:11 AM BELT SPLICER) Only the most recent of 5 results within the time period is included. Sodium 135 (L) 137 - 147 MMOL/L [facility] Potassium 4.0 3.5 - 5.1 MMOL/L [facility] Chloride 108 98 - 110 MMOL/L [facility] Glucose 118 (H) 70 - 100 MG/DL [facility] Blood Urea Nitrogen 14 7 - 25 MG/DL [facility] Creatinine 0.70 0.4 - 1.00 MG/DL [facility] Calcium 8.4 (L) 8.5 - 10.6 MG/DL [facility] Total Protein 5.2 (L) 6.0 - 8.0 G/DL [facility] Total Bilirubin 0.8 0.3 - 1.2 MG/DL [facility] Albumin 3.1 (L) 3.5 - 5.0 G/DL [facility] Alk Phosphatase 51 25 - 110 U/L [facility] AST (SGOT) 21 7 - 40 U/L [facility] CO2 24 21 - 30 MMOL/L [facility] ALT (SGPT) 16 7 - 56 U/L [facility] Anion Gap 3 3 - 12 [facility] eGFR Non >60 >60 mL/min [facility] Comment: The eGFR is not validated for use in drug dosing adjustments.Continue to use estimated creatinine clearance per dosing reference text.Please contact the Clinical Pharmacist for questions. eGFR >60 >60 mL/min [facility] Comment: The eGFR is not validated for use in drug dosing adjustments.Continue to use estimated creatinine clearance per dosing reference text.Please contact the Clinical Pharmacist for questions. Specimen Blood Performing Organization Address City/State/Zipcode Phone Number MAIN LAB [address] [place] [address] * 2-D + DOPPLER ECHOCARDIOGRAM (08/07/2018 8:31 AM BELT SPLICER) IVS 0.90 0.6 - 0.9 cm OTHER OUTSIDE LAB LVIDD 4.23 3.8 - 5.2 cm OTHER OUTSIDE LAB LVIDS 2.68 2.2 - 3.5 cm OTHER OUTSIDE LAB PW 0.95 0.6 - 0.9 cm OTHER OUTSIDE LAB TDI e' 0.10 m/s OTHER OUTSIDE LAB Right Ventricular Mid 2.02 1.9 - 3.5 cm OTHER OUTSIDE LAB Diameter LA size 3.67 2.7 - 3.8 cm OTHER OUTSIDE LAB LA volume 30.20 22 - 52 mL OTHER OUTSIDE LAB Right Atrial Area 13.65 <18 cm2 OTHER OUTSIDE LAB Right Atrial Major 5.43 2.2 - 2.8 cm OTHER OUTSIDE LAB Dimension AV peak velocity 1.11 m/s OTHER OUTSIDE LAB MV Peak A Gregorio 0.48 m/s OTHER OUTSIDE LAB MV Peak E Gregorio PW 0.61 m/s OTHER OUTSIDE LAB Right Heart Systolic 3.03 >1.7 cm OTHER OUTSIDE LAB Mmode TAPSE Right Ventricular Basal 3.22 2.5 - 4.1 cm OTHER OUTSIDE LAB Diameter Sinus 2.81 2.7 - 3.3 cm OTHER OUTSIDE LAB BSA 1.41 m2 OTHER OUTSIDE LAB FS 36.64 28 - 44 % OTHER OUTSIDE LAB EF 62.29 % OTHER OUTSIDE LAB LV mass 124.63 66 - 150 g OTHER OUTSIDE LAB RWT 0.45 <=0.42 OTHER OUTSIDE LAB E/A ratio 1.27 OTHER OUTSIDE LAB TV rest pulmonary artery 22 mmHg OTHER OUTSIDE LAB pressure E/E' ratio 6.10 OTHER OUTSIDE LAB Right Heart Systolic TDI 0.220 m/s OTHER OUTSIDE LAB S' Left Atrium Index 21.42 16 - 34 OTHER OUTSIDE LAB Cardiology Ultrasound Siemens [id number] OTHER OUTSIDE LAB Machine Left Ventricle Mass Index 88.39 44 - 88 g/m2 OTHER OUTSIDE LAB ECHO EF 60 % OTHER OUTSIDE LAB Narrative Performed At OTHER OUTSIDE LAB Normal left ventricular systolic function with an EF of 60%. Normal right ventricular size and function Estimated peak systolic PA pressure=22 mmHg No significant valvular disease identified. No pericardial effusion No prior echocardiograms for comparison. Performing Organization Address City/State/Zipcode Phone Number OTHER OUTSIDE LAB * ABDOMEN AP ONLY (08/06/2018 5:06 PM BELT SPLICER) Impressions Performed At No radiographic evidence of bowel obstruction. [facility] RES[facility] Approved by Alec Garcia M.D. on 08/07/2018 9:15 AM By my electronic signature, I attest that I have personally reviewed the images for this examination and formulated the interpretations and opinions expressed in this report Finalized by Rosalie Arellano M.D. on 08/07/2018 11:46 AM. Dictated by Alec Garcia M.D. on 08/07/2018 7:49 AM. Narrative Performed At ABDOMEN AP ONLY [facility] RES[facility] Clinical Indication: Female, 53 years old. Increasing abdominal distention Comparison: CT abdomen/pelvis dated July 12, 2014. Findings: The lung bases are well aerated. Gas is seen throughout normal caliber large and small bowel. Procedure Note Interface, Radiant Results - 08/07/2018 11:49 AM BELT SPLICER ABDOMEN AP ONLY Clinical Indication: Female, 53 years old. Increasing abdominal distention Comparison: CT abdomen/pelvis dated July 12, 2014. Findings: The lung bases are well aerated. Gas is seen throughout normal caliber large and small bowel. IMPRESSION No radiographic evidence of bowel obstruction. Approved by Alec Garcia M.D. on 08/07/2018 9:15 AM By my electronic signature, I attest that I have personally reviewed the images for this examination and formulated the interpretations and opinions expressed in this report Finalized by Rosalie Arellano M.D. on 08/07/2018 11:46 AM. Dictated by Alec Garcia M.D. on 08/07/2018 7:49 AM. Performing Organization Address City/State/[facility] Phone Number [facility] * UA REFLEX CULTURE LABEL (08/06/2018 10:33 AM BELT SPLICER) UA Reflex Culture LAB LABEL [facility] Specimen Urine Performing Organization Address City/[facility]/Zipcode Phone Number [facility] [address] [place] [address] * URINALYSIS MICROSCOPIC REFLEX TO CULTURE (08/06/2018 10:33 AM BELT SPLICER) WBCs,UA 10-20 0 - 2 /HPF [facility] RBCs,UA 0-2 0 - 3 /HPF [facility] Comment,UA Urine submitted for reflex [facility] culture if criteria are met:WBC>10, positive nitrite and/or >=1+ leukocyte esterase. If quantity is not sufficient, an addendum will follow. MucousUA TRACE [facility] Squamous Epithelial Cells 0-2 0 - 5 [facility] Specimen Urine Performing Organization Address [facility] Phone Number [facility] [address] [place] [address] * URINALYSIS DIPSTICK REFLEX TO CULTURE (08/06/2018 10:33 AM BELT SPLICER) Color,UA YELLOW [facility] Turbidity,UA CLEAR CLEAR-CLEAR [facility] Specific Sophia-Urine 1.019 1.003 - 1.035 [facility] pH,UA 5.0 5.0 - 8.0 [facility] Protein,UA NEG NEG-NEG [facility] Glucose,UA NEG NEG-NEG [facility] Ketones,UA NEG NEG-NEG [facility] Bilirubin,UA NEG NEG-NEG [facility] Blood,UA NEG NEG-NEG [facility] Urobilinogen,UA NORMAL NORM-NORMAL [facility] Nitrite,UA NEG NEG-NEG [facility] Leukocytes,UA TRACE (A) NEG-NEG [facility] Urine Ascorbic Acid, UA NEG NEG-NEG [facility] Specimen Urine Performing Organization Address City/[facility] Phone Number [facility] [address] [place] [address] * CULTURE-URINE W/SENSITIVITY (08/06/2018 10:33 AM BELT SPLICER) Battery Name URINE CULTURE [facility] Specimen Description URINE [facility] Special Requests NONE [facility] Culture NO GROWTH [facility] Report Status FINAL [facility] 08/08/2018 Specimen Urine Performing Organization Address City/[facility]/Zipcode Phone Number [facility] [address] [place] [address] * US DOPPLER ABD PELV RETROPER COMP (08/06/2018 6:27 AM BELT SPLICER) Impressions Performed At 1.Small cirrhotic liver with portal hypertension demonstrated by stable [facility] RESULTS moderate splenomegaly and new mild abdominopelvic ascites. 2.Mildly distended gallbladder with diffuse, asymmetric wall thickening. No evidence of cholelithiasis or gallbladder sludge. This likely represents wall thickening from underlying liver disease and hypoalbuminemia/fluid overload. Acute acalculus cholecystitis would be a much less likely consideration. 3.Patent hepatic vasculature with normal direction of flow. Portal veins show slower flow, consistent with portal hypertension. By my electronic signature, I attest that I have personally reviewed the images for this examination and formulated the interpretations and opinions expressed in this report Finalized by Ervin Gay M.D. on 08/06/2018 6:54 AM. Dictated by Ervin Nielson M.D. on 08/06/2018 6:29 AM. Narrative Performed At Abdominal Ultrasound with Doppler [facility] RES[facility] Clinical Indication: Female, 53 years; cirrhosis of liver Technique: Multiple grayscale sonographic images were obtained through the abdomen with additional color and spectral Doppler acquisitions. Comparison: External abdominal ultrasound October 11, 2017 Findings: Liver and Biliary System: Liver demonstrates heterogeneous echotexture overall and mildly nodular margins, consistent with cirrhosis. The liver is small in size measuring 12.1 cm, compared to 13.0 cm previously. No discrete hepatic masses are identified. There is no intrahepatic biliary ductal dilatation.The common duct measures 0.5 cm.The gallbladder is mildly distended with some diffuse though asymmetric gallbladder wall thickening measuring up to 1.3 cm. Gallbladder wall thickening has markedly increased since prior exam where the gallbladder wall measured up to 0.3 cm in thickness. No cholelithiasis or gallbladder sludge is identified. Main portal vein: Hepatopetal, peak velocity 22.5 cm/sec. Right and left portal veins:Hepatopetal. Peak velocity of the right portal vein is 8 cm/s, with the velocity of 18 cm/s in the left portal vein. Splenic vein: Normal direction of flow at midline and splenic hilum. IVC: Patent, normal pulsatility. Hepatic veins: Patent, normal pulsatility. Hepatic arteries: Normal systolic acceleration; PHA resistive index is 0.70-0.78. Pancreas: Visualized portions of the pancreas are unremarkable. Spleen: Moderately enlarged measuring 17.1 cm, compared to 17.3 cm previously. Aorta: Visualized portions of the aorta are normal in caliber. Kidneys: The right kidney measures 11.5 x 4.4 cm.The left kidney measures 11.4 x 3.7 cm.No hydronephrosis. Peritoneal Space: The distended urinary bladder is unremarkable.Mild abdominopelvic ascites, new since prior. Procedure Note Interface, Radiant Results - 08/06/2018 6:57 AM BELT SPLICER Abdominal Ultrasound with Doppler Clinical Indication: Female, 53 years; cirrhosis of liver Technique: Multiple grayscale sonographic images were obtained through the abdomen with additional color and spectral Doppler acquisitions. Comparison: External abdominal ultrasound October 11, 2017 Findings: Liver and Biliary System: Liver demonstrates heterogeneous echotexture overall and mildly nodular margins, consistent with cirrhosis. The liver is small in size measuring 12.1 cm, compared to 13.0 cm previously. No discrete hepatic masses are identified. There is no intrahepatic biliary ductal dilatation. The common duct measures 0.5 cm. The gallbladder is mildly distended with some diffuse though asymmetric gallbladder wall thickening measuring up to 1.3 cm. Gallbladder wall thickening has markedly increased since prior exam where the gallbladder wall measured up to 0.3 cm in thickness. No cholelithiasis or gallbladder sludge is identified. Main portal vein: Hepatopetal, peak velocity 22.5 cm/sec. Right and left portal veins: Hepatopetal. Peak velocity of the right portal vein is 8 cm/s, with the velocity of 18 cm/s in the left portal vein. Splenic vein: Normal direction of flow at midline and splenic hilum. IVC: Patent, normal pulsatility. Hepatic veins: Patent, normal pulsatility. Hepatic arteries: Normal systolic acceleration; PHA resistive index is 0.70- 0.78. Pancreas: Visualized portions of the pancreas are unremarkable. Spleen: Moderately enlarged measuring 17.1 cm, compared to 17.3 cm previously. Aorta: Visualized portions of the aorta are normal in caliber. Kidneys: The right kidney measures 11.5 x 4.4 cm. The left kidney measures 11.4 x 3.7 cm. No hydronephrosis. Peritoneal Space: The distended urinary bladder is unremarkable. Mild abdominopelvic ascites, new since prior. IMPRESSION 1. Small cirrhotic liver with portal hypertension demonstrated by stable moderate splenomegaly and new mild abdominopelvic ascites. 2. Mildly distended gallbladder with diffuse, asymmetric wall thickening. No evidence of cholelithiasis or gallbladder sludge. This likely represents wall thickening from underlying liver disease and hypoalbuminemia/fluid overload. Acute acalculus cholecystitis would be a much less likely consideration. 3. Patent hepatic vasculature with normal direction of flow. Portal veins show slower flow, consistent with portal hypertension. By my electronic signature, I attest that I have personally reviewed the images for this examination and formulated the interpretations and opinions expressed in this report Finalized by Ervin Gay M.D. on 08/06/2018 6:54 AM. Dictated by Ervin Nielson M.D. on 08/06/2018 6:29 AM. Performing Organization Address City/State/Zipcode Phone Number [facility] RESULTS * US ABDOMEN COMPLETE (08/06/2018 6:27 AM BELT SPLICER) Impressions Performed At 1.Small cirrhotic liver with portal hypertension demonstrated by stable [facility] RESULTS moderate splenomegaly and new mild abdominopelvic ascites. 2.Mildly distended gallbladder with diffuse, asymmetric wall thickening. No evidence of cholelithiasis or gallbladder sludge. This likely represents wall thickening from underlying liver disease and hypoalbuminemia/fluid overload. Acute acalculus cholecystitis would be a much less likely consideration. 3.Patent hepatic vasculature with normal direction of flow. Portal veins show slower flow, consistent with portal hypertension. By my electronic signature, I attest that I have personally reviewed the images for this examination and formulated the interpretations and opinions expressed in this report Finalized by Ervin Gay M.D. on 08/06/2018 6:54 AM. Dictated by Ervin Nielson M.D. on 08/06/2018 6:29 AM. Narrative Performed At Abdominal Ultrasound with Doppler [facility] RESULTS Clinical Indication: Female, 53 years; cirrhosis of liver Technique: Multiple grayscale sonographic images were obtained through the abdomen with additional color and spectral Doppler acquisitions. Comparison: External abdominal ultrasound October 11, 2017 Findings: Liver and Biliary System: Liver demonstrates heterogeneous echotexture overall and mildly nodular margins, consistent with cirrhosis. The liver is small in size measuring 12.1 cm, compared to 13.0 cm previously. No discrete hepatic masses are identified. There is no intrahepatic biliary ductal dilatation.The common duct measures 0.5 cm.The gallbladder is mildly distended with some diffuse though asymmetric gallbladder wall thickening measuring up to 1.3 cm. Gallbladder wall thickening has markedly increased since prior exam where the gallbladder wall measured up to 0.3 cm in thickness. No cholelithiasis or gallbladder sludge is identified. Main portal vein: Hepatopetal, peak velocity 22.5 cm/sec. Right and left portal veins:Hepatopetal. Peak velocity of the right portal vein is 8 cm/s, with the velocity of 18 cm/s in the left portal vein. Splenic vein: Normal direction of flow at midline and splenic hilum. IVC: Patent, normal pulsatility. Hepatic veins: Patent, normal pulsatility. Hepatic arteries: Normal systolic acceleration; PHA resistive index is 0.70-0.78. Pancreas: Visualized portions of the pancreas are unremarkable. Spleen: Moderately enlarged measuring 17.1 cm, compared to 17.3 cm previously. Aorta: Visualized portions of the aorta are normal in caliber. Kidneys: The right kidney measures 11.5 x 4.4 cm.The left kidney measures 11.4 x 3.7 cm.No hydronephrosis. Peritoneal Space: The distended urinary bladder is unremarkable.Mild abdominopelvic ascites, new since prior. Procedure Note Interface, Radiant Results - 08/06/2018 6:57 AM BELT SPLICER Abdominal Ultrasound with Doppler Clinical Indication: Female, 53 years; cirrhosis of liver Technique: Multiple grayscale sonographic images were obtained through the abdomen with additional color and spectral Doppler acquisitions. Comparison: External abdominal ultrasound October 11, 2017 Findings: Liver and Biliary System: Liver demonstrates heterogeneous echotexture overall and mildly nodular margins, consistent with cirrhosis. The liver is small in size measuring 12.1 cm, compared to 13.0 cm previously. No discrete hepatic masses are identified. There is no intrahepatic biliary ductal dilatation. The common duct measures 0.5 cm. The gallbladder is mildly distended with some diffuse though asymmetric gallbladder wall thickening measuring up to 1.3 cm. Gallbladder wall thickening has markedly increased since prior exam where the gallbladder wall measured up to 0.3 cm in thickness. No cholelithiasis or gallbladder sludge is identified. Main portal vein: Hepatopetal, peak velocity 22.5 cm/sec. Right and left portal veins: Hepatopetal. Peak velocity of the right portal vein is 8 cm/s, with the velocity of 18 cm/s in the left portal vein. Splenic vein: Normal direction of flow at midline and splenic hilum. IVC: Patent, normal pulsatility. Hepatic veins: Patent, normal pulsatility. Hepatic arteries: Normal systolic acceleration; PHA resistive index is 0.70- 0.78. Pancreas: Visualized portions of the pancreas are unremarkable. Spleen: Moderately enlarged measuring 17.1 cm, compared to 17.3 cm previously. Aorta: Visualized portions of the aorta are normal in caliber. Kidneys: The right kidney measures 11.5 x 4.4 cm. The left kidney measures 11.4 x 3.7 cm. No hydronephrosis. Peritoneal Space: The distended urinary bladder is unremarkable. Mild abdominopelvic ascites, new since prior. IMPRESSION 1. Small cirrhotic liver with portal hypertension demonstrated by stable moderate splenomegaly and new mild abdominopelvic ascites. 2. Mildly distended gallbladder with diffuse, asymmetric wall thickening. No evidence of cholelithiasis or gallbladder sludge. This likely represents wall thickening from underlying liver disease and hypoalbuminemia/fluid overload. Acute acalculus cholecystitis would be a much less likely consideration. 3. Patent hepatic vasculature with normal direction of flow. Portal veins show slower flow, consistent with portal hypertension. By my electronic signature, I attest that I have personally reviewed the images for this examination and formulated the interpretations and opinions expressed in this report Finalized by Ervin Gay M.D. on 08/06/2018 6:54 AM. Dictated by Ervin Nielson M.D. on 08/06/2018 6:29 AM. Performing Organization Address [facility] Phone Number RAD RESULTS * TROPONIN-I (08/05/2018 11:45 PM BELT SPLICER) Only the most recent of 3 results within the time period is included. Troponin-I <0.01 0.0 - 0.05 NG/ML MAIN LAB Specimen Blood Performing Organization Address [facility]/Zipcode Phone Number MAIN LAB [address] [place] [address] * EGD REPORT (08/05/2018 4:46 PM BELT SPLICER) Provation Report Patient Name: Mohamud COOMBS OTHER RESULTS Procedure Date: 08/05/2018 4:46 PM CSN: [id number] Date of : 1965 Gender: Female Attending Physician: Rambo Zapata MD Procedure: Upper GI endoscopy Indications: Esophageal varices. Presented with coffee ground emesis Providers: Rambo Zapata MD (Doctor), Josie Leblanc MD (Fellow), Mitra Lewis RN (Nurse), Pavel Shane (Detective Sergeant) Referring Physician: Jayla Adkins MD Medications: Fentanyl 50 micrograms IV, Midazolam 5 mg IV Complications: No immediate complications. Procedure: Pre-Anesthesia Assessment: [...] anticoagulant or antiplatelet agents. ASA Grade Assessment: III - A patient with severe systemic disease. After reviewing the risks and benefits, the patient was deemed in satisfactory condition to undergo the procedure. After obtaining informed consent, the endoscope was passed under direct vision. Throughout the procedure, the patient's blood pressure, pulse, and oxygen saturations were monitored continuously. The Endoscope [id number] was introduced through the mouth, and advanced to the second part of duodenum. The upper GI endoscopy was accomplished without difficulty. The patient tolerated the procedure well. Findings: Small (< 5 mm) varices were found in the lower third of the esophagus. Scar of previously treated esophageal varices seen in the distal esophagus Esophagogastric landmarks were identified: the gastroesophageal junction was found at 38 cm from the incisors. Type 1 gastroesophageal varices (GOV1, esophageal varices which extend along the lesser curvature) with nop active bleeding but 2 red spots were seen suggestive of possible recent bleeding were found in the cardia. The duodenal bulb and second portion of the duodenum were normal. Impression: - Small (< 5 mm) esophageal varices. - Scar of previously treated esophageal varices seen in the distal esophagus - Esophagogastric landmarks identified. - Type 1 gastroesophageal varices (GOV1, esophageal varices which extend along the lesser curvature), nop active bleeding but 2 red spots were seen suggestive of possiblerecent bleed. - Normal duodenal bulb and second portion of the duodenum. - No specimens collected. Estimated Blood Loss: Estimated blood loss: none. Recommendation: - Patient has a contact number available for emergencies. The signs and symptoms of potential delayed complications were discussed with the patient. Return to normal activities tomorrow. Written discharge instructions were provided to the patient. - Resume previous diet. - Continue present medications. - Continue octreotide for 72 hours - Inpatient hepatology following Scope In: 5:00:48 PM Scope Out: 5:07:38 PM Total Procedure Duration Time 0 hours 6 minutes 50 seconds Attending Participation: I was present and participated during the entire procedure, including non-estrada portions. MD Rambo Clemons MD 08/05/2018 5:18:35 PM The attending physician has electronically signed and finalized this document. Josie Leblanc MD Number of Addenda: 0 Note Initiated On: 08/05/2018 4:46 PM Performing Organization Address City/[facility]/Zipcode Phone Number OTHER RESULTS * INFLUENZA A/B AG (RAPID TEST) (08/05/2018 1:12 PM BELT SPLICER) Battery Name INFLUENZA A/B ANTIGEN [facility] MAIN LAB Specimen Description NASOPHARYNGEAL SWAB MAIN LAB Special Requests NONE MAIN LAB Direct Antigen NEGATIVE FOR INFLUENZA A/B [facility] MAIN LAB Report Status FINAL MAIN LAB 08/05/2018 Specimen Nasopharyngeal Swab Performing Organization Address City/[facility]/Zipcode Phone Number MAIN LAB [address] [place] [address] * CHEST SINGLE VIEW (08/05/2018 1:09 PM BELT SPLICER) Impressions Performed At No acute cardiopulmonary abnormality. [facility] RAD RESULTS Approved by Walter Del Valle D.O. on 08/05/2018 2:16 PM By my electronic signature, I attest that I have personally reviewed the images for this examination and formulated the interpretations and opinions expressed in this report Finalized by Stacy Jacobsen M.D. on 08/05/2018 2:25 PM. Dictated by Walter Del Valle D.O. on 08/05/2018 1:12 PM. Narrative Performed At Procedure: CHEST SINGLE VIEW [facility] RAD RESULTS Clinical Indication: 53-year-old female; shortness of breath. Comparison: Prior outside examination from earlier 08/05/2018. FINDINGS: A right IJ central venous catheter remains in place and in similar position as the prior exam. The heart size is normal. The pulmonary vasculature is unremarkable. There is no pleural effusion, pneumothorax, or focal consolidative process. Procedure Note Interface, Radiant Results - 08/05/2018 2:28 PM BELT SPLICER Procedure: CHEST SINGLE VIEW Clinical Indication: 53-year-old female; shortness of breath. Comparison: Prior outside examination from earlier 08/05/2018. FINDINGS: A right IJ central venous catheter remains in place and in similar position as the prior exam. The heart size is normal. The pulmonary vasculature is unremarkable. There is no pleural effusion, pneumothorax, or focal consolidative process. IMPRESSION No acute cardiopulmonary abnormality. Approved by Walter Del Valle D.O. on 08/05/2018 2:16 PM By my electronic signature, I attest that I have personally reviewed the images for this examination and formulated the interpretations and opinions expressed in this report Finalized by Stacy Jacobsen M.D. on 08/05/2018 2:25 PM. Dictated by Walter Del Valle D.O. on 08/05/2018 1:12 PM. Performing Organization Address [facility] Phone Number RAD RESULTS * PROCALCITONIN (08/05/2018 1:04 PM BELT SPLICER) Procalcitonin 3.63 (H) <0.10 NG/ML [facility] MAIN LAB Performing Organization Address [facility] Phone Number MAIN LAB [address] [place] [address] * FREE T4-FREE THYROXINE (08/05/2018 1:04 PM BELT SPLICER) T4-Free 1.0 0.6 - 1.6 NG/DL [facility] MAIN LAB Performing Organization Address [facility] Phone Number MAIN LAB [address] [place] [address] * TSH WITH FREE T4 REFLEX (08/05/2018 1:04 PM BELT SPLICER) TSH 0.180 (L) 0.35 - 5.00 MCU/ML MAIN LAB Specimen Blood Performing Organization Address [facility] Phone Number MAIN LAB [address] [place] [address] * LACTIC ACID (BG - RAPID LACTATE) (08/05/2018 1:04 PM BELT SPLICER) Lactic Acid,BG 1.0 0.5 - 2.0 MMOL/L MAIN LAB Specimen Blood Performing Organization Address [facility] Phone Number MAIN LAB [address] [place] [address] * CBC AND DIFF (08/05/2018 1:04 PM BELT SPLICER) White Blood Cells 3.9 (L) 4.5 - 11.0 K/UL MAIN LAB RBC 2.59 (L) 4.0 - 5.0 M/[facility] Hemoglobin 7.6 (L) 12.0 - 15.0 GM/DL [facility] Hematocrit 22.3 (L) 36 - 45 % MAIN LAB MCV 86.0 80 - 100 FL MAIN LAB MCH 29.3 26 - 34 PG [facility] MCHC 34.1 32.0 - 36.0 G/DL [facility] RDW 14.5 11 - 15 % MAIN LAB Platelet Count 49 (L) 150 - 400 K/[facility] MPV 8.0 7 - 11 [facility] Neutrophils 83 (H) 41 - 77 % MAIN LAB Lymphocytes 8 (L) 24 - 44 % [facility] Monocytes 9 4 - 12 % [facility] Eosinophils 0 0 - 5 % [facility] Basophils 0 0 - 2 % [facility] Absolute Neutrophil Count 3.20 1.8 - 7.0 K/[facility] Absolute Lymph Count 0.30 (L) 1.0 - 4.8 K/[facility] Absolute Monocyte Count 0.30 0 - 0.80 K/[facility] Absolute Eosinophil Count 0.00 0 - 0.45 K/[facility] Absolute Basophil Count 0.00 0 - 0.20 K/[facility] Specimen Blood Performing Organization Address City/[facility]/Zipcode Phone Number MAIN LAB [address] [place] [address] * TYPE & CROSSMATCH (08/05/2018 1:04 PM BELT SPLICER) Units Ordered 0 MAIN LAB Crossmatch Expires 08/08/2018 MAIN LAB Record Check FOUND MAIN LAB ABO/RH(D) O POS MAIN LAB Antibody Screen NEG MAIN LAB Electronic Crossmatch YES MAIN LAB Specimen Blood Performing Organization Address City/[facility]/Zipcode Phone Number MAIN LAB [address] [place] [address] * BNP (B-TYPE NATRIURETIC PEPTI) (08/05/2018 1:04 PM BELT SPLICER) B Type Natriuretic 268.0 (H) 0 - 100 PG/ML MAIN LAB Peptide Specimen Blood Performing Organization Address City/[facility]/Zipcode Phone Number MAIN LAB [address] [place] [address] * IONIZED CALCIUM (08/05/2018 1:04 PM BELT SPLICER) Ionized Calcium 1.18 1.0 - 1.3 MMOL/L [facility] MAIN LAB Specimen Blood Performing Organization Address [facility] Phone Number MAIN LAB [address] [place] [address] * GENERAL RAD CHEST EXTERNAL IMAGING (08/05/2018 10:44 AM BELT SPLICER) Only the most recent of 2 results within the time period is included. Narrative Performed At This order has been auto finalized and does not contain a result. * ECG-SCAN (08/05/2018 12:00 AM BELT SPLICER) Narrative Performed At Ordered by an unspecified provider. from Last 3 Months Advance Directives Patient has advance care planning documents, and code status on file. For more information, please contact: [facility] [address] [facility] [address] [place] [address] Date Inactivated Comments Code Status Date Activated 08/08/2018 4:01 PM Full Code 08/05/2018 12:02 PM Provider has discussed Code Status No, more discussion w/Patient or Family? needed 07/16/2014 8:24 PM Full Code 07/12/2014 5:13 PM Provider has discussed Code Status No, more discussion w/Patient or Family? needed
--- OUTSIDE RECORDS SUMMARY | 2018-08-15 14:30 | XMS REPORT | Encounter Summary ---
Author Author [facility] Organization [facility] Address Unknown Phone Unavailable Care Team Providers Care Roll Out Manager Name Role Phone Xuan Solomon MD Unavailable [...] Reason for Visit * Reason Comments Other Med Question Encounter Details Care Team Description Date Type Department Jayla Adkins MD [address] [place] [address] Other (Med Question) 08/12/2018 Telephone [facility] [address] [place] [address] Social History Date Tobacco Use [...] encounter Miscellaneous Notes * Telephone Encounter - Cookie Swanson - 08/14/2018 11:11 AM CAFETERIA COOK Pt lvm wanting to speak with you about meds. TERIA COOK * Telephone Encounter - Cookie Swanson - 08/12/2018 10:56 AM CAFETERIA COOK Pt LVM with questions about her Spironolactone TERIA COOK in this encounter Plan of Treatment Care Team Description Date Type Specialty Carlyle Bone MD [address] [place] [address] [phone] End stage liver disease (HCC) 09/04/2018 Hospital Encounter Carlyel Bone MD [address] [place] [address] [phone] ESOPHAGOGASTRODUODENOSCOPY WITH BAND LIGATION ESOPHAGEAL/ GASTRIC VARICES - FLEXIBLE 09/04/2018 Surgery as of this encounter Visit Diagnoses Not on filein this encounter
--- OUTSIDE RECORDS SUMMARY | 2018-08-15 14:31 | XMS REPORT | Encounter Summary ---
Author Author [facility] Organization [facility] Address Unknown Phone Unavailable Care Team Providers Care Racing Driver Name Role Phone Xuan Solomon MD Unavailable True Arauz MD Unavailable Radha Chance Unavailable Unavailable Jayla Adkins MD Unavailable Eleuterio Berger MD Unavailable Gabriel Kaur RN Unavailable Unavailable Judy Harrison APRN PCP Michelle Edwards RN Unavailable Unavailable Magalis Stinson Unavailable Unavailable Ervin Stevenson MD Unavailable Asiya Culver Unavailable Unavailable Akila Zavala RN Unavailable Yessi Carreon MD Unavailable Reason for Visit * Auth/Cert Referred By Contact Referred To Contact Status Reason Specialty Diagnoses / Procedures Diagnoses Acute upper GI bleed esophageal varices Encounter Details Care Team Description Date Type Department Tal Marr MD [address] [place] [address] Acute blood loss anemia 08/05/2018 Hospital Progressive Telemetry - Encounter [facility] 6th fl Unit 08/08/2018 66 [address] [place] [address] Social History Date Tobacco Use [...] travel history available. as of this encounter Last Filed Vital Signs Time Taken Vital Sign Reading 08/08/2018 11:35 AM [employer] Blood Pressure 106/78 08/08/2018 11:35 AM [employer] Pulse 80 08/08/2018 11:35 AM [employer] Temperature 36.7 C (98.1 F) - Respiratory Rate - 08/08/2018 11:35 AM [employer]ER [employer] MECH[employer] Oxygen Saturation 97% - Inhaled Oxygen - Concentration 08/07/2018 8:31 AM [employer] Weight 45.4 kg (100 lb) 08/07/2018 8:31 AM [employer]ER [employer] Height 157.5 cm (5' 2") 08/07/2018 8:31 AM [employer] Body Mass Index 18.29 in this encounter Functional Status Date of Assessment [...] cognitive impairment: No as of this encounter Discharge Summaries * Akhil De La Cruz APRN-NP - 08/08/2018 11:26 AM [employer] Physician Discharge Summary Name: Aisha Mallory Date Of : 1965 Age: 53 years Admit date: 08/05/2018 Discharge date: 08/08/2018 Attending Physician: Dr. Tal Marr Service: Med ICU 1947 Physician Summary completed by: AMANDA Stauffer Reason for hospitalization: Upper GI bleed / Hematemesis Significant PMH: Past Medical History: Diagnosis Date Back pain Cirrhosis of liver with ascites (HCC) Esophageal varices (HCC) Status post gastric banding Stomach problems Allergies: Sulfa (sulfonamide antibiotics) Admission Physical Exam notable for: General: Alert, cooperative, no distress, appears stated age Head: Normocephalic, without obvious abnormality, atraumatic Eyes: Conjunctivae, cornea clear, LUCA, EOM's intact Neck: Supple, symmetrical, trachea midline, no adenopathy, thyroid: no enlargement/tenderness/nodules, no carotid bruit and no JVD Lungs: Clear to auscultation bilaterally Chest wall: No tenderness or deformity. Heart: Regular rate and rhythm, S1, S2 normal, no murmur, click rub or gallop Abdomen: soft, flat, non-tender, + BS Extremities: Extremities normal, atraumatic, no cyanosis or edema Peripheral pulses 2+ and symmetric, all extremities Cap Refill: less than 3 sec. Skin: pale, warm, normal texture, dry Neurologic: CNII - XII intact. Normal strength, sensation and reflexes throughout. Admission Lab/Radiology studies notable for: 08/05/18 1304 INR 1.4* TNI <0.01 Brief Hospital Course: Ms. Aisha Mallory is a 53 y/o female admitted 08/05 from [facility] for upper GIB. PMH: Cirrhotic Stage liver disease 2/2 ETOH abuse c/b esophageal varices and previous ascites. Hepatitis C, anxiety and chronic back pain. She was continued on octreotide gtt, started PPI b.i.d.. Hepatology consulted. Started on 7 day course ceftriaxone. Hemoglobin remained stable post single unit pRBC's transfused en route.EGD 08/05->small (<5mm) esophageal varices. Scar of previously tx esophageal varices seen in distal esophagus. Type 1 gastroesophageal varices which extend along the lesser curvature, no active bleeding but 2 red spots were seen suggestive of possible recent bleeding.Abd. US 08/06->.Small cirrhotic liver with portal hypertension demonstrated by stable moderate splenomegaly and new mild abdominal ascites. Mildly distended gall bladder with diffuse asymmetric wall thickening. No evidence of cholelithiasis or gallbladder sludge. Likely represents wall Thickening from underlying liver disease. Patent hepatic vasculature with normal direction of flow. Portal veins show slower flow, consistent with portal hypertension. Bradycardia with hypotension during EGD. Required Norepinephrine. Unresponsive to fluids via NICOM. Was able to liberate from vasopressors 08/06. Reported abdominal discomfort, firmness. KUB with gas / stool, No SBO or ileus noted.Discomfort, improved, Moving her bowels. Hemodynamically stable. Wanting to go home. Will plan to discharge today once octreotide infusion completed. Condition at Discharge: Stable Discharge Diagnoses: Hospital Problems Active Problems Cirrhosis (HCC) Esophageal varices (HCC) Upper GI bleeding Acute blood loss anemia Underweight UTI (lower urinary tract infection) Surgical Procedures: None Significant Diagnostic Studies and Procedures: noted in brief hospital course Consults: Hepatology Patient Disposition: Home Patient instructions/medications: No discharge procedures on file. Current Discharge Medication List CONTINUE these medications which have NOT CHANGED Details ascorbic acid (VITAMIN C) 500 mg tablet Take 500 mg by mouth daily. PRESCRIPTION TYPE: Historical Med folic acid (FOLVITE) 1 mg tablet Take 1 mg by mouth every morning. PRESCRIPTION TYPE: Historical Med LORazepam (ATIVAN) 0.5 mg tablet Take 1 Tab by mouth every 6 hours as needed for Nausea. PRESCRIPTION TYPE: Historical Med MV,CA,MIN/IRON/FA/GUARANA/CAFF (ONE-A-DAY WOMEN'S ACTIVE PO) Take 1 tablet by mouth daily. PRESCRIPTION TYPE: Historical Med nadolol(+) (CORGARD) 20 mg tablet Take 10 mg by mouth at bedtime daily. PRESCRIPTION TYPE: Historical Med oxyCODONE (ROXICODONE) 5 mg tablet Take 5 mg by mouth at bedtime as needed for Pain PRESCRIPTION TYPE: Historical Med RABEprazole DR (+) (ACIPHEX) 20 mg tablet Take 1 Tab by mouth twice daily. Take 1 cap twice daily x 1 week, then back to 1 cap daily. Qty: 90 Tab, Refills: 3 PRESCRIPTION TYPE: Fax Comments: Take twice daily for one week after discharge then resume once daily dosing spironolactone (ALDACTONE) 50 mg tablet Take 50 mg by mouth daily. PRESCRIPTION TYPE: Historical Med Scheduled appointments: Oct 17, 2018 2:00 PM [employer] Return Patient with Jayla Adkins MD [facility] [address] [address] Pending items needing follow up: Will need to complete course of antibiotics Follow up with Hepatology as previously scheduled Signed: AMANDA Stauffer 08/08/2018 cc: Primary Care Physician: Judy Harrison Verified Referring physicians: Simba Duvall MD Additional provider(s): ER SHOP MECHANIC in this encounter Medications at Time of Discharge Start Date End Date Medication Sig Dispensed Refills ascorbic acid (VITAMIN C) Take 500 mg 0 500 mg tablet by mouth daily. folic acid (FOLVITE) 1 mg Take 1 mg by 0 tablet mouth every morning. LORazepam (ATIVAN) 0.5 mg Take 1 Tab by 0 tablet mouth every 6 hours as needed for Nausea. MV,CA,MIN/IRON/FA/GUARANA Take 1 tablet 0 /CAFF (ONE-A-DAY WOMEN'S by mouth ACTIVE PO) daily. nadolol(+) (CORGARD) 20 Take 10 mg by 0 mg tablet mouth at bedtime daily. oxyCODONE (ROXICODONE) 5 Take 5 mg by 0 mg tablet mouth at bedtime as needed for Pain 07/16/[address] (+) Take 1 Tab by 90 Tab 3 (ACIPHEX) 20 mg tablet mouth twice daily. Take 1 cap twice daily x 1 week, then back to 1 cap daily. spironolactone Take 50 mg by 0 (ALDACTONE) 50 mg tablet mouth daily. 08/09/2018 08/12/2018 ciprofloxacin (CIPRO) 500 Take one 6 tablet 0 mg tablet tablet by mouth twice daily for 3 days. as of this encounter Progress Notes * Nicky Glasgow APRN-BANDING MACHINE OPERATOR - 08/08/2018 11:00 AM [employer] Hepatology Progress Note Name: Aisha Mallory Today's Date: 08/08/2018 Admission Date: 08/05/2018 LOS: 3 days Aisha Mallory is a 53 yr old lady with decompensated alcoholic cirrhosis complicated with esophageal varices bleeding, ascites presents to the [facility] as a transfer from outside facility due to upper GI bleed, now resolved. Assessment/Plan: Decompensated Alcoholic Cirrhosis - ESLD complicated by thrombocytopenia, EV and ascites - Recommend complete cessation of alcohol intake. - NaMELD:7(MELD:7) Hepatic enzymes without exacerbation at this time GI Bleed - Completed 72 hrs of IV Octreotide as well as IV PPI twice daily. - Recommend to complete 7-day course of antibiotics. On Ceftriaxone since 08/05 while inpatient with titration to oral flouroquinolone as outpatient (Cipro 500mg BID to complete 7 days). - Hgb improved today with no further blood in stool or black stool. Ascites - Mild ascites present on US. No paracentesis required this admission - Low Na+ diet recommended Renal - CR:0.70 today Variceal Surveillance - continued on nadolol 20 mg daily - EGDFebruary 2017 did not show any esophageal varices and showed mild portal hypertensive gastropathy. History of esophageal varices bleeding status post banding in the past - EGD 08/05/18 showed small esophageal varices and small GOV1 with red spots but not amenable to banding due to very small size ID - UA/culture without concern for infection on 08/06 - CXR: negative on 07/26 - SIRS: negative HCC Screening - Abd Ultrasound (August 06, 2018) No discrete hepatic masses are identified - AFP: 2.8 on 03/07/18 Follow Up Care: - Needs to repeat EGD in September 2018 with EV present and GOV1. - Appointment with Dr. Adkins scheduled on November 06, 2018 at 2 PM Patient evaluated with . Thank you for consulting the Hepatology team. Subjective Aisha Mallory is a 53 y.o. female. She reports feeling well today with no further hematemesis, blood in stools, black stools. She is able tolerate walking independently without dizziness or instability of gait reported she is able tolerate oral nutrition without nausea. She denies chest pain, palpitations, fevers, chills, night sweats, difficulty breathing, shortness of breath, change in strength or other concern at this time. Medications Scheduled Meds: cefTRIAXone (ROCEPHIN) IVP 1 g 1 g Intravenous Q24H* pantoprazole (PROTONIX) injection 40 mg 40 mg Intravenous BID(07-03) polyethylene glycol 3350 (MIRALAX) packet 17 g 1 packet Oral QDAY senna/docusate (SENOKOT-S) tablet 1 tablet 1 tablet Oral BID Continuous Infusions: octreotide (SANDOSTATIN) 500 mcg in sodium chloride 0.9% (NS) 100 mL IV drip (std conc) 50 mcg/hr (08/08/18 0432) PRN and Respiratory Meds:acetaminophen Q6H PRN, benzocaine/menthol Q2H PRN, oxyCODONE Q6H PRN Objective: Vital Signs: Last Filed Vital Signs: 24 Hour Range BP: 106/78 (08/08 1135) Temp: 36.7 C (98.1 F) (08/08 1135) Pulse: 80 (08/08 1135) Respirations: 18 PER MINUTE (08/08 1135) SpO2: 97 % (08/08 1135) O2 Delivery: None (Room Air) (08/08 1135) SpO2 Pulse: 72 (08/07 1500) BP: (105-117)/(56-78) Temp: [36.5 C (97.7 F)-36.9 C (98.5 F)] Pulse: [61-80] Respirations: [18 PER MINUTE] SpO2: [93 %-99 %] O2 Delivery: None (Room Air) Intensity Pain Scale (Self Report): 9 (08/08/18 0430) Intensity Pain Scale (Self Report): 9 (08/08/18 0430) Vitals: 08/05/18 1200 08/07/18 0600 08/07/18 0831 Weight: 45.8 kg (100 lb 15.5 oz) 48.2 kg (106 lb 4.2 oz) 45.4 kg (100 lb) Intake/Output Summary: (Last 24 hours) Intake/Output Summary (Last 24 hours) at 08/08/2018 1150 Last data filed at 08/08/2018 1135 Gross per 24 hour Intake 670 ml Output 425 ml Net 245 ml Stool Occurrence: 1 Physical Exam General: Resting in bed. cooperative, appears stated age. Neurologic: Alert, Oriented x4. Normal strength throughout. Asterixis not present HEENT: Normocephalic, without obvious abnormality, atraumatic. Anicteric Neck supple, symmetrical, trachea midline. Lungs: Clear to auscultation bilaterally. Non-labored. Heart: Regular rate. S1, S2 normal, no murmur. 2+ pulses in all extremities. no edema in extremities Abdomen: Soft, non-distended, non-tender. Bowel sounds +. Extremities: Extremities normal, atraumatic, no cyanosis. Skin: Skin color normal. Texture dry & turgor normal. Lab Review Pertinent labs reviewed MELD-Na score: 7 at 08/08/2018 5:11 AM MELD score: 7 at 08/08/2018 5:11 AM Calculated from: Serum Creatinine: 0.7 MG/DL (Rounded to 1 MG/DL) at 08/08/2018 5:11 AM Serum Sodium: 135 MMOL/L at 08/08/2018 5:11 AM Total Bilirubin: 0.8 MG/DL (Rounded to 1 MG/DL) at 08/08/2018 5:11 AM INR(ratio): 1.1 at 08/08/2018 5:11 AM Age: 53 years Point of Care Testing (Last 24 hours) Glucose: (!) 118 (08/08/18 0511) Radiology and other Diagnostics Review: Pertinent radiology reviewed. abd US 08/06: Small cirrhotic liver with portal hypertension demonstrated [...] show slower flow, consistent with portal hypertension. AMANDA Pereira Pager [phone] ER [employer]CH[employer]IC Associated attestation - Jayla Adkins MD - 08/08/2018 4:05 PM [employer] MECH[employer] ATTESTATION: I personally performed the estrada portions of the E/M visit, discussed case with Nikcy Glasgow Nurse Practitioner and concur with her documentation of history, physical exam, assessment, and treatment plan as outlined in her note of same date unless otherwise noted. HPI: Mrs. Mallory remains stable. Planning for discharge today. She is feeling well. PHYSICAL EXAM: GENERAL: Alert interactive and approprite HEENT: PERRL EOMI RESPIRATORY: Normal respiratory effort. CARDIAC: RRR ABDOMEN: Soft nontender EXTREMITIES: No peripheral edema SKIN: No acute lesions NEURO: Normal exam. IMPRESSION AND PLAN: Ms. Mallory asks about continuing diuretics. She has not been on any during her hospitalization and has no appreciable fluid accumulation therefore I have told her she can quite. She can contact us if she develops edema in the future. Remainder of plan as outlined in Nicky's note from today. Jayla Adkins MD * Christopher Velazquez, OT - 08/08/2018 9:05 AM [employer]ER [employer]OP MECH[employer]IC OCCUPATIONAL THERAPY DISCONTINUE NOTE Per discussion with PT, patient reports no concerns with completing activities of daily living with no OT goals identified. OT will discontinue service, please re-consult if the patient has a decline in functional status. Christopher Velazquez, OTR/L [id number] ER [employer] ME[employer]IC * Nancy Chaudhari, PT - 08/08/2018 9:01 AM [employer]ER SHOP MECH[employer]IC PHYSICAL THERAPY NOTE Patient denies changes from baseline mobility and reports no history of balance loss or falls in the last three months. Patient endorses no concerns with mobility at home. Currently, the patient is ambulating in room without difficulty. Reports is to leave this afternoon to return home around 1PM. Patient will be safe to return home at discharge. Encouraged patient to continue mobilization while in the hospital and discussed the mobility plan with the bedside nursing staff. Physical therapy services will be discontinued at this time, please re-consult if the patient has a change in mobility status. Therapist: Nancy Chaudhari, PT, DPT [id number] Date: 08/08/2018 ER [employer] MECH[employer]IC * Akhil De La Cruz APRN-BANDING MACHINE OPERATOR - 08/08/2018 6:59 AM [employer]CH[employer] Pulmonary / Critical Care Progress Note Aisha Mallory Today's Date: 08/08/2018 Admission Date: 08/05/2018 LOS: 3 days Active Problems: Cirrhosis (HCC) Esophageal varices (HCC) Upper GI bleeding Acute blood loss anemia Underweight UTI (lower urinary tract infection) Assessment/Plan: Ms. Aisha Mallory is a 53 y/o female admitted 08/05 from [facility] for upper GIB. PMH: Cirrhotic Stage liver disease 2/2 ETOH abuse c/b esophageal varices and previous ascites. 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 -will hold [employer] SALES [employer]GER medications for now PULM: No Acute Issues -CXr 08/05->No acute cardiopulmonary issues -Stable on RA Plan; -will ensure aggressive pulmonary hygiene CV: -LA: 1.0 -TNI:<0.01 x 3 -BNP: 268 Shock -required during sedation / EGD -Likely volume / sedation v.s. Sepsis SBP:87-117 -NE ->weaned off -Echo 08/06->NLVF with EF of 60%, normal RV size and function No significant valvular disease. Plan: -will ensure MAP of 65mmHg. 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 Normal ampulla, duodenal bulb and first part of the duodenum and 2nd part of the duodenum -EGD 09/2016->Scar in lower 1/3 of esophagus, No esophageal varices noted. Normal Stomach. Normal duodenum. -Follows with Dr. Adkins (10/2017) -Started on Octreotide gtt at [facility] -reports not having to have paracentesis in ~ 10 years -EGD 08/05->small (<5mm) esophageal varices. Scar of previously tx esophageal varices seen in distal esophagus. Type 1 gastroesophageal varices which extend along the lesser curvature, no active bleeding but 2 red spots were seen suggestive of possible recent bleeding -Abd. US 08/06->.Small cirrhotic liver with portal hypertension demonstrated by stable moderate splenomegaly and new mild abdominal ascites. Mildly distended gall bladder with diffuse asymmetric wall thickening. No evidence of cholelithiasis or gallbladder sludge. Likely represents wall Thickening from underlying liver disease. Patent hepatic vasculature with normal direction of flow. Portal veins show slower flow, consistent with portal hypertension -KUB->08/06 with bowel gas / stool. No Air/fluid levels noted. Plan: -will consult hepatology->appriciate recommendations -continue octreotide gttx 72H (1259 on 08/08) -continuepantoprazole b.i.d. -Maintain MAP of 65mmHg -NPO -Trend Hgbdaily. -Ceftriaxone for ppx -Daily MELD-Na+ labs RENAL: No Acute Issues -Cr. At OSH: 0.77 -Cr. Today:0.70 -I&O's:830ml / 675ml (+155ml/24H) Plan: -will follow I&O's -follow daily labs. ENDO: No Acute Issues -Serum Glucose->159 -TSH: 0.180 / Free T4: 1.0 ID: UTI->noted on UA from OSH -Tmax:36.9WBC: 2.7 -UA at OSH: 3+ leukocytes, + nitrates, 25-50 WBC's, moderate bacteria -Pip / Tazo 4.5gm at OSH 0600 -CXr 08/05->without acute infiltrate -UA 08/06->Trace leukocytes, negative nitrates, 10-20 WBCs -PCT 08/05->3.63 -Flu swab->Negative Plan: -follow up on ID work up -Continue ceftriaxone x 7 ->will transition to Cipro until 08/12 HEME: Acute Blood Loss Anemia -Likely 2/2 upper GIB -Hgb 8.5->5.7 at OSH -received 1 unit pRBC at OSH -Hgb:8.0 Plan: -will follow CBCdaily -Transfuse to keep Hgb > 7 Coagulopathy->improved -likely related to malnutrition vs. Underlying liver disease -INR: 1.1 Plan: Will check albumin / pre-albumin -Vit K x 3 doses FEN -low sodium diet -IVF:Bolus PRN -review electrolytes and replace as needed PPX: Lines:PIV, R IJ CVC Drains/Tubes:None Indwelling Urinary Catheter:No DVT:SCD's / Holding pharm agent due to bleeding GI:pantopraozole PT/OT:Yes Insulin:No Reviewed Quality Checklist with RN: Yes Code Status:Full code Disposition/Family:Stable to transfer to floor Akhil De La Cruz APRN Pulm/Critical Care Pager [phone] (2nd call/night) Pager [phone] 08/08/2018 Brief ICU / Hospital Course: Ms. Aisha Mallory is a 53 y/o female admitted 08/05 from [facility] for upper GIB. PMH: Cirrhotic Stage liver disease 2/2 ETOH abuse c/b esophageal varices and previous ascites. Hepatitis C, anxiety and chronic back pain. She was continued on octreotide gtt, started PPI b.i.d.. Hepatology consulted. Started on 7 day course ceftriaxone. Hemoglobin remained stable post single unit pRBC's transfused en route.EGD 08/05->small (<5mm) esophageal varices. Scar of previously tx esophageal varices seen in distal esophagus. Type 1 gastroesophageal varices which extend along the lesser curvature, no active bleeding but 2 red spots were seen suggestive of possible recent bleeding.Abd. US 08/06->.Small cirrhotic liver with portal hypertension demonstrated by stable moderate splenomegaly and new mild abdominal ascites. Mildly distended gall bladder with diffuse asymmetric wall thickening. No evidence of cholelithiasis or gallbladder sludge. Likely represents wall Thickening from underlying liver disease. Patent hepatic vasculature with normal direction of flow. Portal veins show slower flow, consistent with portal hypertension. Bradycardia with hypotension during EGD. Required Norepinephrine. Unresponsive to fluids via NICOM. Was able to liberate from vasopressors 08/06. Reported abdominal discomfort, firmness. KUB with gas / stool, No SBO or ileus noted. Discomfort, improved, Moving her bowels. Hemodynamically stable. Wanting to go home. Will plan to discharge today once octreotide infusion completed. __ Subjective: Aisha Mallory is a 53 y.o. female who was resting in bed at the time of my exam. Reports sleeping "OK" over-night. Continues to experience abdominal discomfort. RN reports no BM over-night ROS: Denies GUEVARA, fever, chills, CP, palpitations, orthopnea, SOB, increased WOB cough, N/V/D or abdominal pain, itching or rash Objective: Medications: Scheduled Meds: cefTRIAXone (ROCEPHIN) IVP 1 g 1 g Intravenous Q24H* pantoprazole (PROTONIX) injection 40 mg 40 mg Intravenous BID(07-03) polyethylene glycol 3350 (MIRALAX) packet 17 g 1 packet Oral QDAY senna/docusate (SENOKOT-S) tablet 1 tablet 1 tablet Oral BID Continuous Infusions: octreotide (SANDOSTATIN) 500 mcg in sodium chloride 0.9% (NS) 100 mL IV drip (std conc) 50 mcg/hr (08/08/18431) PRN and Respiratory Meds:acetaminophen Q6H PRN, benzocaine/menthol Q2H PRN, oxyCODONE Q6H PRN Vital Signs: Last Filed Vital Signs: 24 Hour Range BP: 113/71 (08/08 353) Temp: 36.8 C (98.3 F) (08/08 353) Pulse: 78 (08/08 353) Respirations: 18 PER MINUTE (08/08 353) SpO2: 95 % (08/08 353) O2 Delivery: None (Room Air) (08/08 353) SpO2 Pulse: 72 (08/07 1500) Height: 157.5 cm (62") (08/07 831) BP: (87-117)/(56-71) Temp: [36.5 C (97.7 F)-36.9 C (98.5 F)] Pulse: [61-83] Respirations: [17 PER MINUTE-26 PER MINUTE] SpO2: [94 %-99 %] O2 Delivery: None (Room Air) Intensity Pain Scale (Self Report): 9 (08/08/180) Vitals: 08/05/18 1200 08/07/18 0600 08/07/18 0831 Weight: 45.8 kg (100 lb 15.5 oz) 48.2 kg (106 lb 4.2 oz) 45.4 kg (100 lb) Intake/Output Summary: (Last 24 hours) Intake/Output Summary (Last 24 hours) at 08/08/2018 0659 Last data filed at 08/08/2018 0353 Gross per 24 hour Intake 840 ml Output 675 ml Net 165 ml Physical Exam: Physical Exam: General:Alert, cooperative, no distress, appears stated age Eyes:Conjunctivae, cornea clear, LUCA, EOM's intact Lungs:Clear to auscultation bilaterally Heart:Regular rate and rhythm, S1, S2 normal, no murmur, click rub or gallop Abdomen:Flat, soft, BS active Extremities:Extremities normal, atraumatic, no cyanosis or edema Skin:pale, warm, normal texture, dry Neurologic:CNII - XII intact. Normal strength, sensation and reflexes throughout. Laboratory: LABS: Recent Labs 08/05/18 1304 08/05/18 2345 08/06/18 0352 08/06/18 0855 08/07/18 0341 08/08/18 0511 NA 140 138 -- 136* 136* 135* K 3.6 3.8 -- 3.9 4.1 4.0 CL 114* 114* -- 111* 109 108 CO2 18* 22 -- 24 24 24 GAP 8 2* -- 1* 3 3 BUN 29* 25 -- 23 17 14 CR 0.89 0.74 -- 0.69 0.62 0.70 GLU 163* 146* -- 159* 113* 118* CA 8.2* 8.2* -- 8.2* 8.3* 8.4* ALBUMIN 3.0* 3.0* -- 3.0* 3.1* 3.1* MG 1.5* 1.8 1.8 -- 2.0 1.8 PO4 3.0 -- 1.8* -- 2.1 2.5 TSH 0.180* -- -- -- -- -- Recent Labs 08/05/18 1304 08/05/18 1510 08/05/18 1828 08/05/18 2345 08/06/18 0352 08/06/18 0855 08/07/18 0341 08/08/18 0511 WBC 3.9* 4.0* 6.2 5.5 4.6 -- 3.9* 2.7* HGB 7.6* 7.3* 7.9* 7.8* 7.7* -- 8.0* 8.0* HCT 22.3* 21.6* 23.4* 23.2* 22.6* -- 23.4* 23.4* PLTCT 49* 47* 67* 61* 57* -- 60* 66* INR 1.4* -- -- -- 1.3* -- 1.1 1.1 AST 27 -- -- 24 -- 29 23 21 ALT 19 -- -- 20 -- 22 19 16 ALKPHOS 46 -- -- 47 -- 43 49 51 TNI <0.01 -- <0.01 <0.01 -- -- -- -- CrCl cannot be calculated (Unknown ideal weight.). Vitals: 08/05/18 1200 08/07/18 0600 08/07/18 0831 Weight: 45.8 kg (100 lb 15.5 oz) 48.2 kg (106 lb 4.2 oz) 45.4 kg (100 lb) No results for input(s): PHART, PO2ART in the last 72 hours. Invalid input(s): PC02A Radiology and Other Diagnostic Procedures Review: Reviewed pertinent studies. ER SHOP MECHANIC Associated attestation - Tal Marr MD - 08/08/2018 4:43 PM BOILER SHOP MECHANIC ATTESTATION I personally interviewed and examined the patient. I have reviewed the history , physical, impression and plan outlined by the Nurse Practitioner. History: Patient doing well today. Set to complete octreotide drip. Wishes to go home. Review of Systems: A full 14 point review of systems was performed and is as above or is unremarkable. Vitals: 08/08/18 1135 BP: 106/78 Pulse: 80 Temp: 36.7 C (98.1 F) SpO2: 97% Physical Exam: GENERAL: Alert and Pleasant, No Distress, appears dry HEENT: PERRL, EOMI NECK: No Cervical or Supraclavicular Adenopathy, No Thyromegaly CVS: Regular Rate and Rhythm LUNGS: CTAB, No Wheezes ABDOMEN: soft, NT EXTREMITIES: No edema. SKIN: No rashes. No ulcers. NEURO: Grossly normal Assessment: Active Problems: Cirrhosis (HCC) Esophageal varices (HCC) Upper GI bleeding Acute blood loss anemia Underweight UTI (lower urinary tract infection) Plan: 1. Complete 7 days of antibiotics - will transition to cipro on discharge 2. Repeat EGD scheduled 3. PPI 4. OK to d/c home * Alec Tovar MD - 08/07/2018 1:31 PM BOILER SHOP MECHANIC General Progress Note Name: Aisha K Mohamud Today's Date: 08/07/2018 Admission Date: 08/05/2018 LOS: 2 days Assessment/Plan: 53 y.o. female with past medical history of alcoholic cirrhosis complicated with esophageal varices bleeding, ascites presents to the [facility] as a transfer from outside facility due to upper GI bleed. # End stage liver disease 2/2 to alcoholic cirrhosis: Not a liver transplant candidate due to low meld score as an outpatient MELD-Na score: 7 at 08/07/2018 3:41 AM MELD score: 7 at 08/07/2018 3:41 AM Calculated from: Serum Creatinine: 0.62 MG/DL (Rounded to 1 MG/DL) at 08/07/2018 3:41 AM Serum Sodium: 136 MMOL/L at 08/07/2018 3:41 AM Total Bilirubin: 0.8 MG/DL (Rounded to 1 MG/DL) at 08/07/2018 3:41 AM INR(ratio): 1.1 at 08/07/2018 3:41 AM Age: 53 years #GI bleed -Patient presented with 2 episodes of coffee-ground emesis for the last 2 days along with abdominal pain -Noted to have hemoglobin of 5.7 at the outside facility and transferred here after blood transfusion # Esophageal varices screening: EGD September 2016 did not show any esophageal varices and showed mild portal hypertensive gastropathy. History of esophageal varices bleeding status post banding in the past # Fluid management: Euvolemic and not on any diuretics as an outpatient # Hepatic encephalopathy: No previous history of hepatic encephalopathy #HCC screening: Ultrasound abdomen July 2018 did not show any hepatic mass. Recommendations -EGD 08/05/18 showed small esophageal varices and small GOV1 with red spots but not amenable to banding due to very small size (Disucssed with the GI fellow who did the procedure). -Recommend completing 3 days of octreotide drip. Continue PPI twice daily. -Call Ms. Mallory's sister Rowan and talked to her daughter as she was not available and updated about the plan. -Complete 7-day course of antibiotics. -We will schedule repeat EGD in the beginning of September for follow-up of esophageal varices/GOV 1 -Patient doing well clinically with stable hemoglobin and stable hemodynamics without any recurrence of GI bleed. Patient seen and discussed with Dr. Lucille Tovar GI fellow Pager [phone] 08/07/2018 1:37 PM Subjective Aisha Mallory is a 53 y.o. female No acute events overnight Patient did not have any recurrence of GI bleeding in terms of melena or hematemesis Hemoglobin stable and hemodynamically stable Medications Scheduled Meds: cefTRIAXone (ROCEPHIN) IVP 1 g 1 g Intravenous Q24H* pantoprazole (PROTONIX) injection 40 mg 40 mg Intravenous BID(07-03) polyethylene glycol 3350 (MIRALAX) packet 17 g 1 packet Oral QDAY senna/docusate (SENOKOT-S) tablet 1 tablet 1 tablet Oral BID Continuous Infusions: octreotide (SANDOSTATIN) 500 mcg in sodium chloride 0.9% (NS) 100 mL IV drip (std conc) 50 mcg/hr (08/07/18625) PRN and Respiratory Meds:acetaminophen Q6H PRN, oxyCODONE Q6H PRN Review of Systems: A 14 point review of systems was negative except for: HPI Objective: Vital Signs: Last Filed Vital Signs: 24 Hour Range BP: 94/68 (08/07 900) Temp: 36.9 C (98.5 F) (08/07 800) Pulse: 73 (08/07 900) Respirations: 25 PER MINUTE (08/07 900) SpO2: 96 % (08/07 900) O2 Delivery: None (Room Air) (08/07 900) SpO2 Pulse: 72 (08/07 900) Height: 157.5 cm (62") (08/07 831) BP: (83-101)/(54-69) Temp: [36.5 C (97.7 F)-37.1 C (98.8 F)] Pulse: [54-83] Respirations: [13 PER MINUTE-26 PER MINUTE] SpO2: [92 %-99 %] O2 Delivery: None (Room Air) Intensity Pain Scale (Self Report): 8 (08/07/18799) Intensity Pain Scale (Self Report): 8 (12/26/18 0800) Vitals: 08/05/18 1200 08/07/18 0600 08/07/18 0831 Weight: 45.8 kg (100 lb 15.5 oz) 48.2 kg (106 lb 4.2 oz) 45.4 kg (100 lb) Intake/Output Summary: (Last 24 hours) Intake/Output Summary (Last 24 hours) at 08/07/2018 1331 Last data filed at 08/07/2018 1300 Gross per 24 hour Intake 710 ml Output 1000 ml Net -290 ml Stool Occurrence: 1 Physical Exam General appearance: alert, cooperative and no distress Head: Normocephalic, atraumatic Eyes: No scleral icterus Oropharynx: No erythema, ulcers Neck: supple Lungs: clear to auscultation bilaterally Heart: regular rate and rhythm, S1, S2 normal, no murmur, click, rub or gallop Abdomen: Soft, non-tender, non- distended, no masses palpable, no organomegaly, BS+ve Neurologic: No focal deficits Skin: no obvious rashes Musculoskeletal: No obvious joint inflammation Extremities: No pedal edema noted Lab Review 24-hour labs: Results for orders placed or performed during the hospital encounter of (from the past 24 hour(s)) PROTIME INR (PT) Collection Time: 08/07/18 3:41 AM Result Value Ref Range INR 1.1 0.8 - 1.2 MAGNESIUM Collection Time: 08/07/18 3:41 AM Result Value Ref Range Magnesium 2.0 1.6 - 2.6 mg/dL PHOSPHORUS Collection Time: 08/07/18 3:41 AM Result Value Ref Range Phosphorus 2.1 2.0 - 4.5 MG/DL COMPREHENSIVE METABOLIC PANEL Collection Time: 08/07/18 3:41 AM Result Value Ref Range Sodium 136 (L) 137 - 147 MMOL/L Potassium 4.1 3.5 - 5.1 MMOL/L Chloride 109 98 - 110 MMOL/L Glucose 113 (H) 70 - 100 MG/DL Blood Urea Nitrogen 17 7 - 25 MG/DL Creatinine 0.62 0.4 - 1.00 MG/DL Calcium 8.3 (L) 8.5 - 10.6 MG/DL Total Protein 5.1 (L) 6.0 - 8.0 G/DL Total Bilirubin 0.8 0.3 - 1.2 MG/DL Albumin 3.1 (L) 3.5 - 5.0 G/DL Alk Phosphatase 49 25 - 110 U/L AST (SGOT) 23 7 - 40 U/L CO2 24 21 - 30 MMOL/L ALT (SGPT) 19 7 - 56 U/L Anion Gap 3 3 - 12 eGFR Non >60 >60 mL/min eGFR >60 >60 mL/min CBC Collection Time: 08/07/18 3:41 AM Result Value Ref Range White Blood Cells 3.9 (L) 4.5 - 11.0 K/UL RBC 2.70 (L) 4.0 - 5.0 M/UL Hemoglobin 8.0 (L) 12.0 - 15.0 GM/DL Hematocrit 23.4 (L) 36 - 45 % MCV 86.5 80 - 100 FL MCH 29.5 26 - 34 PG MCHC 34.1 32.0 - 36.0 G/DL RDW 15.8 (H) 11 - 15 % Platelet Count 60 (L) 150 - 400 K/UL MPV 8.2 7 - 11 FL Point of Care Testing (Last 24 hours) Glucose: (!) 113 (08/07/18 0341) Radiology and other Diagnostics Review: Pertinent radiology reviewed. Alec Tovar MD Pager ER SHOP MECHANIC Associated attestation - Jayla Adkins MD - 08/08/2018 4:59 PM BOILER SHOP MECHANIC ATTESTATION I personally performed the estrada portions of the E/M visit, discussed case with resident and concur with resident documentation of history, physical exam, assessment, and treatment plan unless otherwise noted. Staff name: Jayla Adkins MD Date: 08/07/2018 * Akhil De La Cruz APRN-BANDING MACHINE OPERATOR - 08/07/2018 4:58 AM BOILER SHOP MECHANIC Pulmonary / Critical Care Progress Note Aisha Mallory Today's Date: 08/07/2018 Admission Date: 08/05/2018 LOS: 2 days Active Problems: Cirrhosis (HCC) Esophageal varices (HCC) Upper GI bleeding Acute blood loss anemia Underweight UTI (lower urinary tract infection) Assessment/Plan: Ms. Aisha Mallory is a 53 y/o female admitted 08/05 from [facility] for upper GIB. PMH: Cirrhotic Stage liver disease 2/2 ETOH abuse c/b esophageal varices and previous ascites. 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 -will hold [employer] SALES MANAGER medications for now PULM: No Acute Issues -CXr 08/05->No acute cardiopulmonary issues -Stable on RA Plan; -will ensure aggressive pulmonary hygiene CV: -LA: 1.0 -TNI: <0.01 x 3 -BNP: 268 Shock -required during sedation / EGD -Likely volume / sedation v.s. Sepsis SBP: 82-118 -NE 0.08mcg/kg/min -Echo 08/06->pending Plan: -will ensure MAP of 65mmHg. -will obtain Echocardiogram today -wean pressors as able GI: Hx of Cirrhotic Stage Liver Disease 2/2 ETOH c/b esophageal varices, and previous Ascites, Hepatitis C Upper GIB -[employer] SALES MANAGER Spironolactone, Nadolol -reports several episodes of hematemesis since 08/03 -EGD 10/2015->Grade 1 varices noted in lower third of the esophagus, acute gastritis. Normal ampulla, duodenal bulb and first part of the duodenum and 2nd part of the duodenum -EGD 09/2016->Scar in lower 1/3 of esophagus, No esophageal varices noted. Normal Stomach. Normal duodenum. -Follows with Dr. Adkins (10/2017) -Started on Octreotide gtt at [facility] -reports not having to have paracentesis in ~ 10 years -EGD 08/05->small (<5mm) esophageal varices. Scar of previously tx esophageal varices seen in distal esophagus. Type 1 gastroesophageal varices which extend along the lesser curvature, no active bleeding but 2 red spots were seen suggestive of possible recent bleeding -Abd. US 08/06->. Small cirrhotic liver with portal hypertension demonstrated by stable moderate splenomegaly and new mild abdominal ascites. Mildly distended gall bladder with diffuse asymmetric wall thickening. No evidence of cholelithiasis or gallbladder sludge. Likely represents wall Thickening from underlying liver disease. Patent hepatic vasculature with normal direction of flow. Portal veins show slower flow, consistent with portal hypertension -KUB->08/06 with bowel gas / stool. No Air/fluid levels noted. Plan: -will consult hepatology->appriciate recommendations -continue octreotide gtt x 72H (1259 on 08/08) -continue pantoprazole b.i.d. -Maintain MAP of 65mmHg -NPO -Trend Hgb daily . -Ceftriaxone for ppx -Daily MELD-Na+ labs RENAL: No Acute Issues -Cr. At OSH: 0.77 -Cr. Today: 0.62 -I&O's: 1339ml / 1060ml (+279ml/24H)(1.4L/stay) Plan: -will follow I&O's -follow daily labs. ENDO: No Acute Issues -Serum Glucose->159 -TSH: 0.180 / Free T4: 1.0 ID: UTI->noted on UA from OSH -Tmax: 37.1 WBC: 3.9 -UA at OSH: 3+ leukocytes, + nitrates, 25-50 WBC's, moderate bacteria -Pip / Tazo 4.5gm at OSH 0600 -CXr 08/05->without acute infiltrate -UA 08/06->Trace leukocytes, negative nitrates, 10-20 WBCs -PCT 08/05->3.63 -Flu swab->Negative Plan: -follow up on ID work up -Continue ceftriaxone x 7 days HEME: Acute Blood Loss Anemia -Likely 2/2 upper GIB -Hgb 8.5->5.7 at OSH -received 1 unit pRBC at OSH -Hgb:8.0 Plan: -will follow CBC daily -Transfuse to keep Hgb > 7 Coagulopathy->improved -likely related to malnutrition vs. Underlying liver disease -INR: 1.1 Plan: Will check albumin / pre-albumin -Vit K x 3 doses FEN -low sodium diet -IVF: Bolus PRN -review electrolytes and replace as needed PPX: Lines: PIV, R IJ CVC Drains/Tubes: None Indwelling Urinary Catheter: No DVT: SCD's / Holding pharm agent due to bleeding GI:pantopraozole PT/OT: Yes Insulin: No Reviewed Quality Checklist with RN: Yes Code Status: Full code Disposition/Family: Stable to transfer to floor Akhil De La Cruz APRN Pulm/Critical Care Pager [phone] (2nd call/night) Pager [phone] 08/07/2018 Brief ICU / Hospital Course: Ms. Aisha Mallory is a 53 y/o female admitted 08/05 from [facility] for upper GIB. PMH: Cirrhotic Stage liver disease 2/2 ETOH abuse c/b esophageal varices and previous ascites. Hepatitis C, anxiety and chronic back pain. She was continued on octreotide gtt, started PPI b.i.d.. Hepatology consulted. Started on 7 day course ceftriaxone. Hemoglobin remained stable post single unit pRBC's transfused en route. EGD 08/05->small (<5mm) esophageal varices. Scar of previously tx esophageal varices seen in distal esophagus. Type 1 gastroesophageal varices which extend along the lesser curvature, no active bleeding but 2 red spots were seen suggestive of possible recent bleeding. Abd. US 08/06->. Small cirrhotic liver with portal hypertension demonstrated by stable moderate splenomegaly and new mild abdominal ascites. Mildly distended gall bladder with diffuse asymmetric wall thickening. No evidence of cholelithiasis or gallbladder sludge. Likely represents wall Thickening from underlying liver disease. Patent hepatic vasculature with normal direction of flow. Portal veins show slower flow, consistent with portal hypertension. Bradycardia with hypotension during EGD. Required Norepinephrine. Unresponsive to fluids via NICOM. Was able to liberate from vasopressors 08/06. Reported abdominal discomfort, firmness. KUB with gas / stool, No SBO or ileus noted. __ Subjective: Aisha Mallory is a 53 y.o. female who was resting in bed at the time of my exam. Reports sleeping "OK" over-night. Continues to experience abdominal discomfort. RN reports no BM over-night. ROS:Endorses Abdominal fullness / pain, :Denies GUEVARA, fever, chills, CP, palpitations, orthopnea, SOB, increased WOB cough, itching or rash Objective: Medications: Scheduled Meds: cefTRIAXone (ROCEPHIN) IVP 1 g 1 g Intravenous Q24H* pantoprazole (PROTONIX) injection 40 mg 40 mg Intravenous BID(07-03) phytonadione (VITAMIN K) injection 5 mg 5 mg Subcutaneous QDAY polyethylene glycol 3350 (MIRALAX) packet 17 g 1 packet Oral QDAY senna/docusate (SENOKOT-S) tablet 1 tablet 1 tablet Oral BID Continuous Infusions: octreotide (SANDOSTATIN) 500 mcg in sodium chloride 0.9% (NS) 100 mL IV drip (std conc) 50 mcg/hr (08/06/182112) PRN and Respiratory Meds:acetaminophen Q6H PRN Vital Signs: Last Filed Vital Signs: 24 Hour Range BP: 88/63 (08/07 400) Temp: 37.1 C (98.8 F) (08/07 400) Pulse: 58 (08/07 400) Respirations: 17 PER MINUTE (08/07 400) SpO2: 95 % (08/07 400) O2 Delivery: None (Room Air) (08/07 400) SpO2 Pulse: 58 (08/07 400) BP: (83-120)/(28-74) Temp: [36.5 C (97.7 F)-37.1 C (98.8 F)] Pulse: [54-72] Respirations: [13 PER MINUTE-27 PER MINUTE] SpO2: [94 %-100 %] O2 Delivery: None (Room Air) Intensity Pain Scale (Self Report): 0 (08/07/18399) Vitals: 08/05/18 1200 Weight: 45.8 kg (100 lb 15.5 oz) Intake/Output Summary: (Last 24 hours) Intake/Output Summary (Last 24 hours) at 08/07/2018 0458 Last data filed at 08/07/2018 0400 Gross per 24 hour Intake 2006.5 ml Output 1060 ml Net 946.5 ml Physical Exam: Physical Exam: General:Alert, cooperative, no distress, appears stated age Eyes:Conjunctivae, cornea clear, LUCA, EOM's intact Lungs:Clear to auscultation bilaterally Heart:Regular rate and rhythm, S1, S2 normal, no murmur, click rub or gallop Abdomen:Flat, soft, BS active Extremities:Extremities normal, atraumatic, no cyanosis or edema Skin:pale, warm, normal texture, dry Neurologic:CNII - XII intact. Normal strength, sensation and reflexes throughout. Laboratory: LABS: Recent Labs 08/05/18 1304 08/05/18 2345 08/06/18 0352 08/06/18 0855 08/07/18 0341 NA 140 138 -- 136* 136* K 3.6 3.8 -- 3.9 4.1 CL 114* 114* -- 111* 109 CO2 18* 22 -- 24 24 GAP 8 2* -- 1* 3 BUN 29* 25 -- 23 17 CR 0.89 0.74 -- 0.69 0.62 GLU 163* 146* -- 159* 113* CA 8.2* 8.2* -- 8.2* 8.3* ALBUMIN 3.0* 3.0* -- 3.0* 3.1* MG 1.5* 1.8 1.8 -- 2.0 PO4 3.0 -- 1.8* -- 2.1 TSH 0.180* -- -- -- -- Recent Labs 08/05/18 1304 08/05/18 1510 08/05/18 1828 08/05/18 2345 08/06/18 0352 08/06/18 0855 08/07/18 0341 WBC 3.9* 4.0* 6.2 5.5 4.6 -- 3.9* HGB 7.6* 7.3* 7.9* 7.8* 7.7* -- 8.0* HCT 22.3* 21.6* 23.4* 23.2* 22.6* -- 23.4* PLTCT 49* 47* 67* 61* 57* -- 60* INR 1.4* -- -- -- 1.3* -- 1.1 AST 27 -- -- 24 -- 29 23 ALT 19 -- -- 20 -- 22 19 ALKPHOS 46 -- -- 47 -- 43 49 TNI <0.01 -- <0.01 <0.01 -- -- -- Estimated Creatinine Clearance: 67.2 mL/min (based on SCr of 0.62 mg/dL). Vitals: 08/05/18 1200 Weight: 45.8 kg (100 lb 15.5 oz) No results for input(s): PHART, PO2ART in the last 72 hours. Invalid input(s): PC02A Radiology and Other Diagnostic Procedures Review: Reviewed pertinent studies. ER SHOP MECHANIC Associated attestation - Tal Marr MD - 08/07/2018 11:31 AM BOILER SHOP MECHANIC ATTESTATION I personally interviewed and examined the patient. I have reviewed the history , physical, impression and plan outlined by the Nurse Practitioner. History: Ms. Mallory has been weaned off vasopressors. She had some abdominal pain that improved with a bowel movement. No GI bleeding noted. Review of Systems: A full 14 point review of systems was performed and is as above or is unremarkable. Vitals: 08/07/18 0900 BP: 94/68 Pulse: 73 Temp: SpO2: 96% Physical Exam: GENERAL: Alert and Pleasant, No Distress, appears dry HEENT: PERRL, EOMI NECK: No Cervical or Supraclavicular Adenopathy, No Thyromegaly CVS: Regular Rate and Rhythm LUNGS: CTAB, No Wheezes ABDOMEN: soft, NT EXTREMITIES: No edema. SKIN: No rashes. No ulcers. NEURO: Grossly normal Assessment: Active Problems: Cirrhosis (HCC) Esophageal varices (HCC) Upper GI bleeding Acute blood loss anemia Underweight UTI (lower urinary tract infection) Plan: 1. Complete octreotide drip 2. Continue PPI 3. Continue to monitor H/H 4. She can transfer to the floor if a bed is available 5. 7 days total ceftriaxone * Ivory Hernandez RN - 08/06/2018 10:33 [address] SHOP MECH[employer] Dr. Young notified patient BP 81/52 Map 61 while patient sleeping in bed. Stating okay with SBP in 80s as long as MAP>60. Will continue to monitor. ER SHOP MECHANIC * Tal Marr MD - 08/06/2018 12:30 PM BOILER SHOP MECHANIC MICU STAFF NOTE Name: Aisha Mallory Code Status: Full Code Admission Date: 08/05/2018 I have independently seen, personally fully evaluated, and discussed patient with the Medical ICU team. I spent 35 minutes (excluding time spent performing or supervising any procedures and independent of BANDING MACHINE OPERATOR review) providing and personally directing critical care services including Systems and physical examination Review of laboratory data Review of telemetry data Review of imaging studies Review of medications Fluid and electrolyte management Coordination of care with consulting services Serial evaluations of respiratory and mental status History: Scope yesterday without clear etiology of bleeding. She is still requiring vasopressors for hypotension. She feels better today. No fevers, chills, bleeding. Review of Systems: A full 14 point review of systems was performed and is as above or is unremarkable. Vitals: 08/06/18 1200 BP: 96/67 Pulse: 63 Temp: 36.7 C (98.1 F) SpO2: 100% Physical Exam: GENERAL: Alert and Pleasant, No Distress, appears dry HEENT: PERRL, EOMI NECK: No Cervical or Supraclavicular Adenopathy, No Thyromegaly CVS: Regular Rate and Rhythm LUNGS: CTAB, No Wheezes ABDOMEN: soft, NT EXTREMITIES: No edema. SKIN: No rashes. No ulcers. NEURO: Grossly normal Assessment: The patient is critically ill with the conditions listed below: Active Problems: Cirrhosis (HCC) Esophageal varices (HCC) Upper GI bleeding Acute blood loss anemia Underweight UTI (lower urinary tract infection) Plan: 1. Assess for volume responsiveness to try and wean from vasopressors 2. PPI BID, octreotide x 72 hours. 3. Ceftriaxone for UGIB in setting of cirrhosis 4. Monitor H/H, transfuse as needed ER SHOP MECHANIC * Nerissa Salcido RN - 08/06/2018 5:59 AM BOILER SHOP MECHANIC NICOM Fluid Bolus Fluid Bolus Challenge: Yes Fluid Volume infused: 500ml Time started: 0545 CO CI HR NIBP MAP TPR TPRI SV SVI SVV Baseline 3.2 52 61 Challenge 3.8 60 66 Stroke Volume Index Change: 8.3% ER SHOP MECHANIC * Akhil De La Cruz APRN-JUHI - 08/06/2018 5:12 AM BOILER SHOP MECHANIC Pulmonary / Critical Care Progress Note Aisha Mallory Today's Date: 08/06/2018 Admission Date: 08/05/2018 LOS: 1 day Active Problems: Cirrhosis (HCC) Esophageal varices (HCC) Upper GI bleeding Acute blood loss anemia Underweight UTI (lower urinary tract infection) Assessment/Plan: Ms. Aisha Mallory is a 53 y/o female admitted 08/05 from [facility] for upper GIB. PMH: Cirrhotic Stage liver disease 2/2 ETOH abuse c/b esophageal varices and previous ascites. 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 -will hold [employer] MANAGER medications for now PULM: No Acute Issues -CXr 08/05->No acute cardiopulmonary issues -Stable on RA Plan; -will ensure aggressive pulmonary hygiene CV: -LA: 1.0 -TNI: <0.01 x 3 -BNP: 268 Shock -required during sedation / EGD -Likely volume / sedation v.s. Sepsis SBP: 82-118 -NE 0.08mcg/kg/min -Echo 08/06->pending Plan: -will ensure MAP of 65mmHg. -will obtain Echocardiogram today -wean pressors as able GI: Hx of Cirrhotic Stage Liver Disease 2/2 ETOH c/b esophageal varices, and previous Ascites, Hepatitis C Upper GIB -[employer] SALES MANAGER Spironolactone, Nadolol -reports several episodes of hematemesis since 08/03 -EGD 10/2015->Grade 1 varices noted in lower third of the esophagus, acute gastritis. Normal ampulla, duodenal bulb and first part of the duodenum and 2nd part of the duodenum -EGD 09/2016->Scar in lower 1/3 of esophagus, No esophageal varices noted. Normal Stomach. Normal duodenum. -Follows with Dr. Adkins (10/2017) -Started on Octreotide gtt at [facility] -reports not having to have paracentesis in ~ 10 years -EGD 08/05->small (<5mm) esophageal varices. Scar of previously tx esophageal varices seen in distal esophagus. Type 1 gastroesophageal varices which extend along the lesser curvature, no active bleeding but 2 red spots were seen suggestive of possible recent bleeding -Abd. US 08/06->. Small cirrhotic liver with portal hypertension demonstrated by stable moderate splenomegaly and new mild abdominal ascites. Mildly distended gall bladder with diffuse asymmetric wall thickening. No evidence of cholelithiasis or gallbladder sludge. Likely represents wall Thickening from underlying liver disease. Patent hepatic vasculature with normal direction of flow. Portal veins show slower flow, consistent with portal hypertension Plan: -will consult hepatology->appriciate recommendations -continue octreotide gtt x 72H (1259 on 08/08) -continue pantoprazole b.i.d. -Maintain MAP of 65mmHg -NPO -Trend Hgb daily . -Ceftriaxone for ppx -Daily MELD-Na+ labs RENAL: No Acute Issues -Cr. At OSH: 0.77 -Cr. Today: 0.69 -I&O's: 1252ml / 700ml (+552ml/24H)(+1.2L/Stay) Plan: -will follow I&O's -follow daily labs. ENDO: No Acute Issues -Serum Glucose->159 -TSH: 0.180 / Free T4: 1.0 ID: UTI->noted on UA from OSH -Tmax: 37.4 WBC: 4.6 -UA at OSH: 3+ leukocytes, + nitrates, 25-50 WBC's, moderate bacteria -Pip / Tazo 4.5gm at OSH 0600 -CXr 08/05->without acute infiltrate -UA 08/06->Trace leukocytes, negative nitrates, 10-20 WBCs -PCT 08/05->3.63 -Flu swab->Negative Plan: -follow up on ID work up -Continue ceftriaxone x 7 days HEME: Acute Blood Loss Anemia -Likely 2/2 upper GIB -Hgb 8.5->5.7 at OSH -received 1 unit pRBC at OSH -Hgb:7.7 Plan: -will follow CBC daily -Transfuse to keep Hgb > 7 Coagulopathy -likely related to malnutrition vs. Underlying liver disease -INR: 1.3 Plan: Will check albumin / pre-albumin -Vit K x 3 doses FEN -low sodium diet -IVF: Bolus PRN -review electrolytes and replace as needed PPX: Lines: PIV, R IJ CVC Drains/Tubes: None Indwelling Urinary Catheter: No DVT: SCD's / Holding pharm agent due to bleeding GI:pantopraozole PT/OT: Yes Insulin: No Reviewed Quality Checklist with RN: Yes Code Status: Full code Disposition/Family: continue care in the ICU [id number] x 1- Pt critically ill with the above diagnosis and is at risk for life threatening deterioration and requires the provision of ICU level care. I spent 55 minutes providing critical care services including: reviewing outside records and obtaining history from the patient/family members performing a physical examination serially reviewing laboratory, telemetry, hemodynamic, oximetry, and respiratory data reviewing radiographic images reviewing medications managing fluids/electrolytes, antibiotics, ICU prophylaxis, developing the overall plan of care. Akhil De La Cruz APRN Pulm/Critical Care Pager [phone] (2nd call/night) Pager [phone] 08/06/2018 Brief ICU / Hospital Course: Ms. Aisha Mallory is a 53 y/o female admitted 08/05 from [facility] for upper GIB. PMH: Cirrhotic Stage liver disease 2/2 ETOH abuse c/b esophageal varices and previous ascites. Hepatitis C, anxiety and chronic back pain. She was continued on octreotide gtt, started PPI b.i.d.. Hepatology consulted. Started on 7 day course ceftriaxone. Hemoglobin remained stable post single unit pRBC's transfused en route. EGD 08/05->small (<5mm) esophageal varices. Scar of previously tx esophageal varices seen in distal esophagus. Type 1 gastroesophageal varices which extend along the lesser curvature, no active bleeding but 2 red spots were seen suggestive of possible recent bleeding. Abd. US 08/06->. Small cirrhotic liver with portal hypertension demonstrated by stable moderate splenomegaly and new mild abdominal ascites. Mildly distended gall bladder with diffuse asymmetric wall thickening. No evidence of cholelithiasis or gallbladder sludge. Likely represents wall Thickening from underlying liver disease. Patent hepatic vasculature with normal direction of flow. Portal veins show slower flow, consistent with portal hypertension. Bradycardia with hypotension during EGD. Required Norepinephrine __ Subjective: Aisha Mallory is a 53 y.o. female who was lying in bed at the time of my exam. Reports resting well over-night. Denies pain, RN reports need for vasopressor / sinus bradycardia over-night w/after EGD. ROS:Denies GUEVARA, fever, chills, CP, palpitations, orthopnea, SOB, increased WOB cough, N/V/D or abdominal pain. Objective: Medications: Scheduled Meds: ATROPINE 0.1 MG/ML IJ SYRG (Cabinet Override) NOW cefTRIAXone (ROCEPHIN) IVP 1 g 1 g Intravenous Q24H* DEXTROSE 5% IN WATER IV SOLP (Cabinet Override) NOW magnesium sulfate 1 g/D5W 100 mL IVPB 1 g Intravenous Q1H X 2DO NOREPINEPHRINE BITARTRATE 1 MG/ML IV SOLN (Cabinet Override) NOW pantoprazole (PROTONIX) injection 40 mg 40 mg Intravenous BID(07-03) phytonadione (VITAMIN K) injection 5 mg 5 mg Subcutaneous QDAY Continuous Infusions: norepinephrine (LEVOPHED) 4 mg in dextrose 5% (D5W) 250 mL IV drip (std conc ) 0.08 mcg/kg/min (08/06/18 0436) octreotide (SANDOSTATIN) 500 mcg in sodium chloride 0.9% (NS) 100 mL IV drip (std conc) 50 mcg/hr (08/05/189) PRN and Respiratory Meds:acetaminophen Q6H PRN Vital Signs: Last Filed Vital Signs: 24 Hour Range BP: 87/57 (08/06 040) Temp: 36.6 C (97.8 F) (08/06 040) Pulse: 55 (08/06 0500) Respirations: 19 PER MINUTE (08/06 0500) SpO2: 96 % (08/06 0500) O2 Delivery: None (Room Air) (08/06 0500) SpO2 Pulse: 55 (08/06 0500) Height: 157.5 cm (62") (08/05 1200) BP: (82-118)/(47-68) Temp: [36.5 C (97.7 F)-37.4 C (99.4 F)] Pulse: [52-92] Respirations: [13 PER MINUTE-21 PER MINUTE] SpO2: [95 %-100 %] O2 Delivery: None (Room Air) Intensity Pain Scale (Self Report): 7 (08/05/18 1600) Vitals: 08/05/18 1200 Weight: 45.8 kg (100 lb 15.5 oz) Intake/Output Summary: (Last 24 hours) Intake/Output Summary (Last 24 hours) at 08/06/2018 0512 Last data filed at 08/06/2018 0500 Gross per 24 hour Intake 1252.85 ml Output 700 ml Net 552.85 ml Physical Exam: Physical Exam: General: Alert, cooperative, no distress, appears stated age Eyes: Conjunctivae, cornea clear, LUCA, EOM's intact Lungs: Clear to auscultation bilaterally Heart: Regular rate and rhythm, S1, S2 normal, no murmur, click rub or gallop Abdomen: soft, flat, non-tender, + BS Extremities: Extremities normal, atraumatic, no cyanosis or edema Skin: pale, warm, normal texture, dry Neurologic: CNII - XII intact. Normal strength, sensation and reflexes throughout. Laboratory: LABS: Recent Labs 08/05/18 1304 08/05/18 2345 08/06/18 0352 NA 140 138 -- K 3.6 3.8 -- CL 114* 114* -- CO2 18* 22 -- GAP 8 2* -- BUN 29* 25 -- CR 0.89 0.74 -- GLU 163* 146* -- CA 8.2* 8.2* -- ALBUMIN 3.0* 3.0* -- MG 1.5* 1.8 1.8 PO4 3.0 -- 1.8* TSH 0.180* -- -- Recent Labs 08/05/18 1304 08/05/18 1510 08/05/18 1828 08/05/18 2345 08/06/18 0352 WBC 3.9* 4.0* 6.2 5.5 4.6 HGB 7.6* 7.3* 7.9* 7.8* 7.7* HCT 22.3* 21.6* 23.4* 23.2* 22.6* PLTCT 49* 47* 67* 61* 57* INR 1.4* -- -- -- 1.3* AST 27 -- -- 24 -- ALT 19 -- -- 20 -- ALKPHOS 46 -- -- 47 -- TNI <0.01 -- <0.01 <0.01 -- Estimated Creatinine Clearance: 63.6 mL/min (based on SCr of 0.74 mg/dL). Vitals: 08/05/18 1200 Weight: 45.8 kg (100 lb 15.5 oz) No results for input(s): PHART, PO2ART in the last 72 hours. Invalid input(s): PC02A Radiology and Other Diagnostic Procedures Review: Reviewed pertinent studies. ER SHOP MECHANIC * Nerissa Salcido RN - 08/06/2018 12:45 AM BOILER SHOP MECHANIC 0045: Patient HR low 50s and occasionally in the 40s. Other VSS. Dr. Ghosh aware. 0230: Patient having pain around central line insertion site. Augie notified and tylenol ordered. ER SHOP MECHANIC * Jacque Goins RN - 08/05/2018 6:04 PM BOILER SHOP MECHANIC Patient arrived to room # (4623) via cart accompanied by transport. Patient transferred to the bed with assistance. Bedside safety checks completed. Initial patient assessment completed, refer to flowsheet for details. Admission skin assessment completed by: Pressure Injury Present on Hospital Admission (within 24 hours): No 1. Occiput: No 2. Ear: No 3. Scapula: No 4. Spinous Process: No 5. Shoulder: No 6. Elbow: No 7. Iliac Crest: No 8. Sacrum/Coccyx: No 9. Ischial Tuberosity: No 10. Trochanter: No 11. Knee: No 12. Malleolus: No 13. Heel: No 14. Toes: No 15. Assessed for device associated injury Yes 16. Nursing Nutrition Assessment Completed Yes See Doc Flowsheet for additional wound details. INTERVENTIONS: ER SHOP MECHANIC * Jacque Goins RN - 08/05/2018 5:46 PM BOILER SHOP MECHANIC 1220~ Pt up to the unit via bed with EMS. Pt alert and oriented x 4. Complains of slight abdominal pain. VSS. No bloody stools or vomit noted on admit. Pt denies any nausea and vomiting.Orders released and labs obtained. Plan of care discussed with patient. Plan for EGD later. 1650~ team in room for EGD. Verbal orders for 5mg versed and 50-100mcgs of fentanyl. Time out performed. meds given for procedure. See OCT. 170~ approximate end time for EGD. Post procedure recovery initiated. Pt on .3 mcgs of Levo to keep MAP>60. ER SHOP MECHANIC in this encounter H&P Notes * Vince Cates MBBS - 08/05/2018 4:43 PM BOILER SHOP MECHANIC Pre Procedure History and Physical/Sedation Plan Name:Aisha Mallory :1965 Age: 53 y.o. Admission Date: 08/05/2018 Days Admitted: LOS: 0 days Procedure Date: 08/05/2018 Planned Procedure(s): GI: EGD Sedation/Medication Plan: Conscious sedation Discussion/Reviews: Physician has discussed risks and alternatives of this type of sedation and above planned procedures with patient Chief Complaint: Inpatient endo consult note reviewed. Previous Anesthetic/Sedation History: Reviewed Allergies: Sulfa (sulfonamide antibiotics) Medications: Scheduled Meds: cefTRIAXone (ROCEPHIN) IVP 1 g 1 g Intravenous Q24H* FENTANYL CITRATE (PF) 50 MCG/ML IJ SOLN (Cabinet Override) NOW fentaNYL citrate PF (SUBLIMAZE) injection 50-100 mcg 50-100 mcg Intravenous ONCE midazolam (VERSED) injection 1-5 mg 1-5 mg Intravenous ONCE pantoprazole (PROTONIX) injection 40 mg 40 mg Intravenous BID(07-03) phytonadione (VITAMIN K) injection 5 mg 5 mg Subcutaneous QDAY Continuous Infusions: octreotide (SANDOSTATIN) 500 mcg in sodium chloride 0.9% (NS) 100 mL IV drip (std conc) 50 mcg/hr (08/05/18 1431) PRN and Respiratory Meds: Vital Signs: Last Filed Vital Signs: 24 Hour Range BP: 89/64 (08/05 1600) Temp: 37.4 C (99.4 F) (08/05 1600) Pulse: 92 (08/05 1600) Respirations: 16 PER MINUTE (08/05 1600) SpO2: 97 % (08/05 1600) O2 Delivery: None (Room Air) (08/05 1300) SpO2 Pulse: 91 (08/05 1600) Height: 157.5 cm (62") (08/05 1200) BP: (84-115)/(54-68) Temp: [36.5 C (97.7 F)-37.4 C (99.4 F)] Pulse: [72-92] Respirations: [14 PER MINUTE-20 PER MINUTE] SpO2: [95 %-98 %] O2 Delivery: None (Room Air) NPO Status: Airway: airway assessment performed Mallampati II (soft palate, uvula, fauces visible) Anesthesia Classification: ASA III (A patient with a severe systemic disease that limits activity, but is not incapacitating) NPO Status: Acceptable Preganancy Status: Not Lab/Radiology/Other Diagnostic Tests Labs: Hematology: Results for orders placed or performed during the hospital encounter of (from the past 24 hour(s)) CBC AND DIFF Collection Time: 08/05/18 1:04 PM Result Value Ref Range White Blood Cells 3.9 (L) 4.5 - 11.0 K/UL RBC 2.59 (L) 4.0 - 5.0 M/UL Hemoglobin 7.6 (L) 12.0 - 15.0 GM/DL Hematocrit 22.3 (L) 36 - 45 % MCV 86.0 80 - 100 FL MCH 29.3 26 - 34 PG MCHC 34.1 32.0 - 36.0 G/DL RDW 14.5 11 - 15 % Platelet Count 49 (L) 150 - 400 K/UL MPV 8.0 7 - 11 FL Neutrophils 83 (H) 41 - 77 % Lymphocytes 8 (L) 24 - 44 % Monocytes 9 4 - 12 % Eosinophils 0 0 - 5 % Basophils 0 0 - 2 % Absolute Neutrophil Count 3.20 1.8 - 7.0 K/UL Absolute Lymph Count 0.30 (L) 1.0 - 4.8 K/UL Absolute Monocyte Count 0.30 0 - 0.80 K/UL Absolute Eosinophil Count 0.00 0 - 0.45 K/UL Absolute Basophil Count 0.00 0 - 0.20 K/UL PROTIME INR (PT) Collection Time: 08/05/18 1:04 PM Result Value Ref Range INR 1.4 (H) 0.8 - 1.2 COMPREHENSIVE METABOLIC PANEL Collection Time: 08/05/18 1:04 PM Result Value Ref Range Sodium 140 137 - 147 MMOL/L Potassium 3.6 3.5 - 5.1 MMOL/L Chloride 114 (H) 98 - 110 MMOL/L Glucose 163 (H) 70 - 100 MG/DL Blood Urea Nitrogen 29 (H) 7 - 25 MG/DL Creatinine 0.89 0.4 - 1.00 MG/DL Calcium 8.2 (L) 8.5 - 10.6 MG/DL Total Protein 5.2 (L) 6.0 - 8.0 G/DL Total Bilirubin 1.4 (H) 0.3 - 1.2 MG/DL Albumin 3.0 (L) 3.5 - 5.0 G/DL Alk Phosphatase 46 25 - 110 U/L AST (SGOT) 27 7 - 40 U/L CO2 18 (L) 21 - 30 MMOL/L ALT (SGPT) 19 7 - 56 U/L Anion Gap 8 3 - 12 eGFR Non >60 >60 mL/min eGFR >60 >60 mL/min LACTIC ACID (BG - RAPID LACTATE) Collection Time: 08/05/18 1:04 PM Result Value Ref Range Lactic Acid,BG 1.0 0.5 - 2.0 MMOL/L IONIZED CALCIUM Collection Time: 08/05/18 1:04 PM Result Value Ref Range Ionized Calcium 1.18 1.0 - 1.3 MMOL/L MAGNESIUM Collection Time: 08/05/18 1:04 PM Result Value Ref Range Magnesium 1.5 (L) 1.6 - 2.6 mg/dL PHOSPHORUS Collection Time: 08/05/18 1:04 PM Result Value Ref Range Phosphorus 3.0 2.0 - 4.5 MG/DL BNP (B-TYPE NATRIURETIC PEPTI) Collection Time: 08/05/18 1:04 PM Result Value Ref Range B Type Natriuretic Peptide 268.0 (H) 0 - 100 PG/ML TROPONIN-I Collection Time: 08/05/18 1:04 PM Result Value Ref Range Troponin-I <0.01 0.0 - 0.05 NG/ML TYPE & CROSSMATCH Collection Time: 08/05/18 1:04 PM Result Value Ref Range Units Ordered 0 Crossmatch Expires 08/08/2018 Record Check FOUND ABO/RH(D) O POS Antibody Screen NEG Electronic Crossmatch YES PROCALCITONIN Collection Time: 08/05/18 1:04 PM Result Value Ref Range Procalcitonin 3.63 (H) <0.10 NG/ML INFLUENZA A/B AG (RAPID TEST) Collection Time: 08/05/18 1:12 PM Result Value Ref Range Battery Name INFLUENZA A/B ANTIGEN Specimen Description NASOPHARYNGEAL SWAB Special Requests NONE Direct Antigen NEGATIVE FOR INFLUENZA A/B Report Status FINAL 08/05/2018 CBC Collection Time: 08/05/18 3:10 PM Result Value Ref Range White Blood Cells 4.0 (L) 4.5 - 11.0 K/UL RBC 2.51 (L) 4.0 - 5.0 M/UL Hemoglobin 7.3 (L) 12.0 - 15.0 GM/DL Hematocrit 21.6 (L) 36 - 45 % MCV 85.8 80 - 100 FL MCH 28.9 26 - 34 PG MCHC 33.7 32.0 - 36.0 G/DL RDW 14.6 11 - 15 % Platelet Count 47 (L) 150 - 400 K/UL MPV 8.0 7 - 11 FL , Coagulation: Results for orders placed or performed during the hospital encounter of (from the past 24 hour(s)) CBC AND DIFF Collection Time: 08/05/18 1:04 PM Result Value Ref Range White Blood Cells 3.9 (L) 4.5 - 11.0 K/UL RBC 2.59 (L) 4.0 - 5.0 M/UL Hemoglobin 7.6 (L) 12.0 - 15.0 GM/DL Hematocrit 22.3 (L) 36 - 45 % MCV 86.0 80 - 100 FL MCH 29.3 26 - 34 PG MCHC 34.1 32.0 - 36.0 G/DL RDW 14.5 11 - 15 % Platelet Count 49 (L) 150 - 400 K/UL MPV 8.0 7 - 11 FL Neutrophils 83 (H) 41 - 77 % Lymphocytes 8 (L) 24 - 44 % Monocytes 9 4 - 12 % Eosinophils 0 0 - 5 % Basophils 0 0 - 2 % Absolute Neutrophil Count 3.20 1.8 - 7.0 K/UL Absolute Lymph Count 0.30 (L) 1.0 - 4.8 K/UL Absolute Monocyte Count 0.30 0 - 0.80 K/UL Absolute Eosinophil Count 0.00 0 - 0.45 K/UL Absolute Basophil Count 0.00 0 - 0.20 K/UL PROTIME INR (PT) Collection Time: 08/05/18 1:04 PM Result Value Ref Range INR 1.4 (H) 0.8 - 1.2 COMPREHENSIVE METABOLIC PANEL Collection Time: 08/05/18 1:04 PM Result Value Ref Range Sodium 140 137 - 147 MMOL/L Potassium 3.6 3.5 - 5.1 MMOL/L Chloride 114 (H) 98 - 110 MMOL/L Glucose 163 (H) 70 - 100 MG/DL Blood Urea Nitrogen 29 (H) 7 - 25 MG/DL Creatinine 0.89 0.4 - 1.00 MG/DL Calcium 8.2 (L) 8.5 - 10.6 MG/DL Total Protein 5.2 (L) 6.0 - 8.0 G/DL Total Bilirubin 1.4 (H) 0.3 - 1.2 MG/DL Albumin 3.0 (L) 3.5 - 5.0 G/DL Alk Phosphatase 46 25 - 110 U/L AST (SGOT) 27 7 - 40 U/L CO2 18 (L) 21 - 30 MMOL/L ALT (SGPT) 19 7 - 56 U/L Anion Gap 8 3 - 12 eGFR Non >60 >60 mL/min eGFR >60 >60 mL/min LACTIC ACID (BG - RAPID LACTATE) Collection Time: 08/05/18 1:04 PM Result Value Ref Range Lactic Acid,BG 1.0 0.5 - 2.0 MMOL/L IONIZED CALCIUM Collection Time: 08/05/18 1:04 PM Result Value Ref Range Ionized Calcium 1.18 1.0 - 1.3 MMOL/L MAGNESIUM Collection Time: 08/05/18 1:04 PM Result Value Ref Range Magnesium 1.5 (L) 1.6 - 2.6 mg/dL PHOSPHORUS Collection Time: 08/05/18 1:04 PM Result Value Ref Range Phosphorus 3.0 2.0 - 4.5 MG/DL BNP (B-TYPE NATRIURETIC PEPTI) Collection Time: 08/05/18 1:04 PM Result Value Ref Range B Type Natriuretic Peptide 268.0 (H) 0 - 100 PG/ML TROPONIN-I Collection Time: 08/05/18 1:04 PM Result Value Ref Range Troponin-I <0.01 0.0 - 0.05 NG/ML TYPE & CROSSMATCH Collection Time: 08/05/18 1:04 PM Result Value Ref Range Units Ordered 0 Crossmatch Expires 08/08/2018 Record Check FOUND ABO/RH(D) O POS Antibody Screen NEG Electronic Crossmatch YES PROCALCITONIN Collection Time: 08/05/18 1:04 PM Result Value Ref Range Procalcitonin 3.63 (H) <0.10 NG/ML INFLUENZA A/B AG (RAPID TEST) Collection Time: 08/05/18 1:12 PM Result Value Ref Range Battery Name INFLUENZA A/B ANTIGEN Specimen Description NASOPHARYNGEAL SWAB Special Requests NONE Direct Antigen NEGATIVE FOR INFLUENZA A/B Report Status FINAL 08/05/2018 CBC Collection Time: 08/05/18 3:10 PM Result Value Ref Range White Blood Cells 4.0 (L) 4.5 - 11.0 K/UL RBC 2.51 (L) 4.0 - 5.0 M/UL Hemoglobin 7.3 (L) 12.0 - 15.0 GM/DL Hematocrit 21.6 (L) 36 - 45 % MCV 85.8 80 - 100 FL MCH 28.9 26 - 34 PG MCHC 33.7 32.0 - 36.0 G/DL RDW 14.6 11 - 15 % Platelet Count 47 (L) 150 - 400 K/UL MPV 8.0 7 - 11 FL and General Chemistry: Results for orders placed or performed during the hospital encounter of (from the past 24 hour(s)) CBC AND DIFF Collection Time: 08/05/18 1:04 PM Result Value Ref Range White Blood Cells 3.9 (L) 4.5 - 11.0 K/UL RBC 2.59 (L) 4.0 - 5.0 M/UL Hemoglobin 7.6 (L) 12.0 - 15.0 GM/DL Hematocrit 22.3 (L) 36 - 45 % MCV 86.0 80 - 100 FL MCH 29.3 26 - 34 PG MCHC 34.1 32.0 - 36.0 G/DL RDW 14.5 11 - 15 % Platelet Count 49 (L) 150 - 400 K/UL MPV 8.0 7 - 11 FL Neutrophils 83 (H) 41 - 77 % Lymphocytes 8 (L) 24 - 44 % Monocytes 9 4 - 12 % Eosinophils 0 0 - 5 % Basophils 0 0 - 2 % Absolute Neutrophil Count 3.20 1.8 - 7.0 K/UL Absolute Lymph Count 0.30 (L) 1.0 - 4.8 K/UL Absolute Monocyte Count 0.30 0 - 0.80 K/UL Absolute Eosinophil Count 0.00 0 - 0.45 K/UL Absolute Basophil Count 0.00 0 - 0.20 K/UL PROTIME INR (PT) Collection Time: 08/05/18 1:04 PM Result Value Ref Range INR 1.4 (H) 0.8 - 1.2 COMPREHENSIVE METABOLIC PANEL Collection Time: 08/05/18 1:04 PM Result Value Ref Range Sodium 140 137 - 147 MMOL/L Potassium 3.6 3.5 - 5.1 MMOL/L Chloride 114 (H) 98 - 110 MMOL/L Glucose 163 (H) 70 - 100 MG/DL Blood Urea Nitrogen 29 (H) 7 - 25 MG/DL Creatinine 0.89 0.4 - 1.00 MG/DL Calcium 8.2 (L) 8.5 - 10.6 MG/DL Total Protein 5.2 (L) 6.0 - 8.0 G/DL Total Bilirubin 1.4 (H) 0.3 - 1.2 MG/DL Albumin 3.0 (L) 3.5 - 5.0 G/DL Alk Phosphatase 46 25 - 110 U/L AST (SGOT) 27 7 - 40 U/L CO2 18 (L) 21 - 30 MMOL/L ALT (SGPT) 19 7 - 56 U/L Anion Gap 8 3 - 12 eGFR Non >60 >60 mL/min eGFR >60 >60 mL/min LACTIC ACID (BG - RAPID LACTATE) Collection Time: 08/05/18 1:04 PM Result Value Ref Range Lactic Acid,BG 1.0 0.5 - 2.0 MMOL/L IONIZED CALCIUM Collection Time: 08/05/18 1:04 PM Result Value Ref Range Ionized Calcium 1.18 1.0 - 1.3 MMOL/L MAGNESIUM Collection Time: 08/05/18 1:04 PM Result Value Ref Range Magnesium 1.5 (L) 1.6 - 2.6 mg/dL PHOSPHORUS Collection Time: 08/05/18 1:04 PM Result Value Ref Range Phosphorus 3.0 2.0 - 4.5 MG/DL BNP (B-TYPE NATRIURETIC PEPTI) Collection Time: 08/05/18 1:04 PM Result Value Ref Range B Type Natriuretic Peptide 268.0 (H) 0 - 100 PG/ML TROPONIN-I Collection Time: 08/05/18 1:04 PM Result Value Ref Range Troponin-I <0.01 0.0 - 0.05 NG/ML TYPE & CROSSMATCH Collection Time: 08/05/18 1:04 PM Result Value Ref Range Units Ordered 0 Crossmatch Expires 08/08/2018 Record Check FOUND ABO/RH(D) O POS Antibody Screen NEG Electronic Crossmatch YES PROCALCITONIN Collection Time: 08/05/18 1:04 PM Result Value Ref Range Procalcitonin 3.63 (H) <0.10 NG/ML INFLUENZA A/B AG (RAPID TEST) Collection Time: 08/05/18 1:12 PM Result Value Ref Range Battery Name INFLUENZA A/B ANTIGEN Specimen Description NASOPHARYNGEAL SWAB Special Requests NONE Direct Antigen NEGATIVE FOR INFLUENZA A/B Report Status FINAL 08/05/2018 CBC Collection Time: 08/05/18 3:10 PM Result Value Ref Range White Blood Cells 4.0 (L) 4.5 - 11.0 K/UL RBC 2.51 (L) 4.0 - 5.0 M/UL Hemoglobin 7.3 (L) 12.0 - 15.0 GM/DL Hematocrit 21.6 (L) 36 - 45 % MCV 85.8 80 - 100 FL MCH 28.9 26 - 34 PG MCHC 33.7 32.0 - 36.0 G/DL RDW 14.6 11 - 15 % Platelet Count 47 (L) 150 - 400 K/UL MPV 8.0 7 - 11 FL MINNA Hdez Pager [phone] 4: 43 PM BOILER SH[employer] MECHANIC * Tal Marr MD - 08/05/2018 2:12 PM BOILER SHOP MECHANIC MICU STAFF NOTE Name: Aisha Mallory Code Status: Full Code Admission Date: 08/05/2018 I have independently seen, personally fully evaluated, and discussed patient with the Medical ICU team. I spent 35 minutes (excluding time spent performing or supervising any procedures and independent of BANDING MACHINE OPERATOR review) providing and personally directing critical care services including Systems and physical examination Review of laboratory data Review of telemetry data Review of imaging studies Review of medications Fluid and electrolyte management Coordination of care with consulting services Serial evaluations of respiratory and mental status History: Ms. Mallory is a pleasant 53 yo F with PMH of ETOH cirrhosis and a history of esophageal varices who presents with acute upper GI bleeding. She noted not feeling well and experiencing vomiting this weekend. She had several bloody episodes. She was admitted to [facility] and hemoglobin fell from 8 to mid 5's. She was given 1u PRBC, a central line was placed, octreotide started and transferred here. She notes that she has been feeling unwell for several days. She thought she had the flu. She has been having some epigastric pain. Review of Systems: A full 14 point review of systems was performed and is as above or is unremarkable. Vitals: 08/05/18 1300 BP: 92/56 Pulse: 79 Temp: SpO2: 97% Physical Exam: GENERAL: Alert and Pleasant, No Distress, appears dry HEENT: PERRL, EOMI NECK: No Cervical or Supraclavicular Adenopathy, No Thyromegaly CVS: Regular Rate and Rhythm LUNGS: CTAB, No Wheezes ABDOMEN: soft, mid epigastric tenderness. EXTREMITIES: No edema. SKIN: No rashes. No ulcers. NEURO: Grossly normal Assessment: The patient is critically ill with the conditions listed below: Active Problems: * No active hospital problems. * Acute upper GI bleeding Cirrhosis UTI Nausea/Vomiting Blood loss anemia Plan: 1. PPI BID, octreotide, hepatology consult for UGI endoscopy 2. Monitor CBC, transfusion as needed to keep Hgb >7. 3. Ceftriaxone for GI bleeding in setting of cirrhosis 4. Repeat UA 5. Check coags and platelet count 6. Flu swab 7. RUQ ultrasound with dopplers if liver enzyme abnormalities 8. IVF bolus, hold diuretics ER SHOP MECHANIC * Akhil De La Cruz APRN-BANDING MACHINE OPERATOR - 08/05/2018 12:31 PM BOILER SHOP MECHANIC Critical Care Admission History and Physical Assessment Name: Aisha Mallory Admission Date: 08/05/2018 Active Problems: Cirrhosis (HCC) Esophageal varices (HCC) Upper GI bleeding Acute blood loss anemia Underweight UTI (lower urinary tract infection) Assessment and Plan Ms. Aisha Mallory is a 53 y/o female admitted 08/05 from [facility] for upper GIB. PMH: Cirrhotic Stage liver disease 2/2 ETOH abuse c/b esophageal varices and previous ascites. 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 -will hold [employer] SALES MANAGER medications for now PULM: No Acute Issues -CXr 08/05-> -Stable on RA Plan; -will ensure aggressive pulmonary hygiene CV: -LA: 1.0 -TNI: No Acute Issues SBP: 115 Plan: -will ensure MAP of 65mmHg. GI: Hx of Cirrhotic Stage Liver Disease 2/2 ETOH c/b esophageal varices, and previous Ascites, Hepatitis C Upper GIB -[employer] SALES MANAGER Spironolactone, Nadolol -reports several episodes of hematemesis since 08/03 -EGD 10/2015->Grade 1 varices noted in lower third of the esophagus, acute gastritis. Normal ampulla, duodenal bulb and first part of the duodenum and 2nd part of the duodenum -EGD 09/2016->Scar in lower 1/3 of esophagus, No esophageal varices noted. Normal Stomach. Normal duodenum. -Follows with Dr. Adkins (10/2017) -Started on Octreotide gtt at [facility] -reports not having to have paracentesis in ~ 10 years Plan: -will consult hepatology->appriciate recommendations -continue octreotide gtt -add pantoprazole b.i.d. -Maintain MAP of 65mmHg -NPO -Trend Hgb q 6H. -Ceftriaxone for ppx -Daily MELD-Na+ labs RENAL: No Acute Issues -Cr. At OSH: 0.77 -Cr. Today: pending -I&O's: Plan: -will follow I&O's -follow daily labs. ENDO: No Acute Issues -Serum Glucose->pending -TSH pending ID: UTI->noted on UA from OSH -Tmax: 36.5 WBC: -UA at OSH: 3+ leukocytes, + nitrates, 25-50 WBC's, moderate bacteria -Pip / Tazo 4.5gm at OSH 0600 -CXr 08/05->without acute infiltrate -UA 08/05->pending -PCT 08/05->pending -Flu swab->pending Plan: -follow up on ID work up -Continue ceftriaxone x 7 days HEME: Acute Blood Loss Anemia -Likely 2/2 upper GIB -Hgb 8.5->5.7 at OSH -received 1 unit pRBC at OSH -Hgb:pending Plan: -will follow q 6h CBC -Transfuse to keep Hgb > 7 Coagulopathy -likely related to malnutrition vs. Underlying liver disease -INR: 1.4 Plan: Will check albumin / pre-albumin -Vit K x 3 doses IVF:LR x 500ml bolus Diet: NPO Prophylaxis Review: Lines: R IJ CVC placed at OSH Urinary Catheter: None VTE PPX: SCD's / Holding pharm agents due to GIB GI ppx: Pantoprazole b.i.d. Insulin: None PT/OT:yes Code status:Full Code Disposition:Continue Care in the ICU 26432 x 1, 22144 x 1 - Pt critically ill with the above diagnosis and is at risk for life threatening deterioration and requires the provision of ICU level care. I spent 90 minutes providing critical care services including: reviewing outside records and obtaining history from the patient/family members performing a physical examination serially reviewing laboratory, telemetry, hemodynamic, oximetry, and respiratory data reviewing radiographic images reviewing medications managing fluids/electrolytes, antibiotics, ICU prophylaxis, and developing the overall plan of care. Akhil De La Cruz APRN-BANDING MACHINE OPERATOR Pager [phone] Primary Care Physician: Judy Harrison CHIEF COMPLAINT: Mid epigastric pain / Hematemesis HISTORY OF PRESENT ILLNESS: Aisha Mallory is a 53 y.o. female who presented to [facility] early am 08/05 with mid epigastric pain, who had reportedly been vomiting blood on/off since Friday 08/03. States she has vomited dark blood on off but not every time she has vomited. Her Hgb on arrival at ED was noted to be 8.5 but trended down to 5.7. She received 1 unit of pRBC's and was started on an Octreotide infusion. She denies fever, chills, CP, Palpitations, orthopnea, GUEVARA, or rash. Endorses Nausea, vomiting / hematemesis. Denies aletha or hematochezia. PMH: Past Medical History: Diagnosis Date Back pain Cirrhosis of liver with ascites (HCC) Esophageal varices (HCC) Status post gastric banding Stomach problems PSH: Past Surgical History: Procedure Laterality Date HX SURGERY aug 2012 esophageal bands SOCIAL HISTORY: Social History Socioeconomic History Marital status: Single Spouse name: Not on file Number of children: Not on file Years of education: Not on file Highest education level: Not on file Occupational History Not on file Tobacco Use Smoking status: Former Smoker Packs/day: 1.00 Types: Cigarettes Start date: 09/08/2011 Last attempt to quit: 07/02/2014 Years since quittin.0 Tobacco comment: quit Substance and Sexual Activity Alcohol use: No Alcohol/week: 0.0 oz Comment: quit Drug use: No Sexual activity: Not on file Other Topics Concern Not on file Social History Narrative Not on file FAMILY HISTORY: Family History Problem Relation Age of Onset Cancer Mother IMMUNIZATIONS: There is no immunization history on file for this patient. ALLERGIES: Sulfa (sulfonamide antibiotics) HOME MEDICATIONS: Medications Prior to Admission Medication Sig ascorbic acid (VITAMIN C) 500 mg tablet Take 500 mg by mouth daily. folic acid (FOLVITE) 1 mg tablet Take 1 mg by mouth daily. LORazepam (ATIVAN) 0.5 mg tablet Take 1 Tab by mouth every 6 hours as needed for Nausea. MV,CA,MIN/IRON/FA/GUARANA/CAFF (ONE-A-DAY WOMEN'S ACTIVE PO) Take 1 tablet by mouth daily. nadolol(+) (CORGARD) 20 mg tablet Take 10 mg by mouth daily. other medication 1 Dose. Medication Name & Strength: Circulation and Nancy Support Dose(how many): 1 tab Frequency(how often): QDAY oxyCODONE (ROXICODONE) 5 mg tablet Take 5 mg by mouth at bedtime as needed for Pain RABEprazole DR (+) (ACIPHEX) 20 mg tablet Take 1 Tab by mouth twice daily. Take 1 cap twice daily x 1 week, then back to 1 cap daily. spironolactone (ALDACTONE) 50 mg tablet Take 50 mg by mouth daily. Vitals: 08/05/18 1300 BP: 92/56 Pulse: 79 Temp: SpO2: 97% ROS: A comprehensive review of systems was negative except for: Constitutional: positive for fatigue, malaise and anorexia Gastrointestinal: positive for vomiting, abdominal pain and Hematemesis Physical Exam: General: Alert, cooperative, no distress, appears stated age Head: Normocephalic, without obvious abnormality, atraumatic Eyes: Conjunctivae, cornea clear, LUCA, EOM's intact Neck: Supple, symmetrical, trachea midline, no adenopathy, thyroid: no enlargement/tenderness/nodules, no carotid bruit and no JVD Lungs: Clear to auscultation bilaterally Chest wall: No tenderness or deformity. Heart: Regular rate and rhythm, S1, S2 normal, no murmur, click rub or gallop Abdomen: soft, flat, non-tender, + BS Extremities: Extremities normal, atraumatic, no cyanosis or edema Peripheral pulses 2+ and symmetric, all extremities Cap Refill: less than 3 sec. Skin: pale, warm, normal texture, dry Neurologic: CNII - XII intact. Normal strength, sensation and reflexes throughout. Artificial Airway None Ventilator/Respiratory Therapy No Vent Weaning Not applicable Laboratory: No results for input(s): NA, K, CL, CO2, GAP, BUN, CR, GLU, CA, ALBUMIN, MG, PO4 , HGBA1C, TSH, IAM in the last 72 hours. Recent Labs 08/05/18 1304 INR 1.4* TNI <0.01 CrCl cannot be calculated (Patient's most recent lab result is older than the maximum 30 days allowed.). Vitals: 08/05/18 1200 Weight: 45.8 kg (100 lb 15.5 oz) No results for input(s): PHART, PO2ART in the last 72 hours. Invalid input(s): PC02A Radiology and Other Diagnostic Procedures Review: Reviewed ER SHOP MECHANIC in this encounter Consult Notes * Alec Tovar MD - 08/05/2018 3:01 PM BOILER SHOP MECHANIC Associated Order(s): CONSULT HEPATOLOGY PHYSICIAN General Consult Note Admission Date: 08/05/2018 LOS: 0 days Reason for Consult: Alcoholic cirrhosis presents with upper GI bleed as a transfer from outside facility Consult type: Opinion Assessment/Plan 53 y.o. female with past medical history of alcoholic cirrhosis complicated with esophageal varices bleeding, ascites presents to the [facility] as a transfer from outside facility due to upper GI bleed. # End stage liver disease 2/2 to alcoholic cirrhosis: Not a liver transplant candidate due to low meld score as an outpatient MELD-Na score: 11 at 08/05/2018 1:04 PM MELD score: 11 at 08/05/2018 1:04 PM Calculated from: Serum Creatinine: 0.89 MG/DL (Rounded to 1 MG/DL) at 08/05/2018 1:04 PM Serum Sodium: 140 MMOL/L (Rounded to 137 MMOL/L) at 08/05/2018 1:04 PM Total Bilirubin: 1.4 MG/DL at 08/05/2018 1:04 PM INR(ratio): 1.4 at 08/05/2018 1:04 PM Age: 53 years #GI bleed -Patient presented with 2 episodes of coffee-ground emesis for the last 2 days along with abdominal pain -Noted to have hemoglobin of 5.7 at the outside facility and transferred here after blood transfusion # Esophageal varices screening: EGD September 2016 did not show any esophageal varices and showed mild portal hypertensive gastropathy. History of esophageal varices bleeding status post banding in the past # Fluid management: Euvolemic and not on any diuretics as an outpatient # Hepatic encephalopathy: No previous history of hepatic encephalopathy #HCC screening: Ultrasound abdomen October 2017 did not show any hepatic mass. Due for repeat ultrasound for HCC screening Recommendations -Patient hemodynamically stable and repeat hemoglobin 7.6 on admission. Patient started on PPI IV twice daily, octreotide drip and ceftriaxone. -Plan for upper endoscopy today. Keep her n.p.o. for now. Give her one-time dose of 10 mg Reglan now. Differential includes esophageal varices, peptic ulcer disease and portal hypertensive possibly related bleeding. -Recommend ultrasound abdomen complete for HCC screening and rule out any blood clot. -We will follow the results of endoscopy -We will continue to follow Patient seen and discussed with Dr. Lucille Tovar GI fellow Pager [phone] 08/05/2018 3:39 PM History of Present Illness: Aisha Mallory is a 53 y.o. female with past medical history of alcoholic cirrhosis complicated with esophageal varices bleeding, ascites presents to the [facility] as a transfer from outside facility due to upper GI bleed. Patient reports she started having one episode of coffee-ground emesis on Sunday along with epigastric pain. She slept without any issues on Sunday night and woke up in the morning and had breakfast. Following that she started having one more episode of a little bit dark colored bloody emesis along with pain all through his body. She was taken to outside facility [address] and noted to have hemoglobin of 5.7. Patient reports he received 2 units of blood transfusion and was transferred to [facility] for further management. Patient denies taking any ibuprofen or Aleve or other NSAIDs. Last EGD was in September 2016 which did not show any esophageal varices. Has a history of esophageal varices bleeding in the past. Past Medical History: Diagnosis Date Back pain Cirrhosis of liver with ascites (HCC) Esophageal varices (HCC) Status post gastric banding Stomach problems Past Surgical History: Procedure Laterality Date HX SURGERY aug 2012 esophageal bands Social History Socioeconomic History Marital status: Single Spouse name: Not on file Number of children: Not on file Years of education: Not on file Highest education level: Not on file Social Needs Financial resource strain: Not on file Food insecurity - worry: Not on file Food insecurity - inability: Not on file Transportation needs - medical: Not on file Transportation needs - non-medical: Not on file Occupational History Not on file Tobacco Use Smoking status: Former Smoker Packs/day: 1.00 Types: Cigarettes Start date: 09/08/2011 Last attempt to quit: 07/02/2014 Years since quittin.0 Tobacco comment: quit Substance and Sexual Activity Alcohol use: No Alcohol/week: 0.0 oz Comment: quit Drug use: No Sexual activity: Not on file Other Topics Concern Not on file Social History Narrative Not on file Family history reviewed; non-contributory Allergies: Sulfa (sulfonamide antibiotics) Scheduled Meds: cefTRIAXone (ROCEPHIN) IVP 1 g 1 g Intravenous Q24H* pantoprazole (PROTONIX) injection 40 mg 40 mg Intravenous BID(07-03) phytonadione (VITAMIN K) injection 5 mg 5 mg Subcutaneous QDAY Continuous Infusions: octreotide (SANDOSTATIN) 500 mcg in sodium chloride 0.9% (NS) 100 mL IV drip (std conc) 50 mcg/hr (08/05/18 1431) PRN and Respiratory Meds: Review of Systems: A 14 point review of systems was negative except for: HPI Vital Signs: Last Filed in 24 hours Vital Signs: 24 hour Range BP: 92/54 (08/05 1400) Temp: 36.5 C (97.7 F) (08/05 1200) Pulse: 72 (08/05 1400) Respirations: 20 PER MINUTE (08/05 1400) SpO2: 95 % (08/05 1400) O2 Delivery: None (Room Air) (08/05 1300) SpO2 Pulse: 71 (08/05 1400) Height: 157.5 cm (62") (08/05 1200) BP: (92-115)/(54-68) Temp: [36.5 C (97.7 F)] Pulse: [72-83] Respirations: [14 PER MINUTE-20 PER MINUTE] SpO2: [95 %-98 %] O2 Delivery: None (Room Air) Physical Exam: General appearance: alert, cooperative and no distress Head: Normocephalic, atraumatic Eyes: No scleral icterus Oropharynx: No erythema, ulcers Neck: supple Lungs: clear to auscultation bilaterally Heart: regular rate and rhythm, S1, S2 normal, no murmur, click, rub or gallop Abdomen: Soft, non-tender, non- distended, no masses palpable, no organomegaly, BS+ve Neurologic: No focal deficits Skin: no obvious rashes Musculoskeletal: No obvious joint inflammation Extremities: No pedal edema noted Lab/Radiology/Other Diagnostic Tests: 24-hour labs: Results for orders placed or performed during the hospital encounter of (from the past 24 hour(s)) CBC AND DIFF Collection Time: 08/05/18 1:04 PM Result Value Ref Range White Blood Cells 3.9 (L) 4.5 - 11.0 K/UL RBC 2.59 (L) 4.0 - 5.0 M/UL Hemoglobin 7.6 (L) 12.0 - 15.0 GM/DL Hematocrit 22.3 (L) 36 - 45 % MCV 86.0 80 - 100 FL MCH 29.3 26 - 34 PG MCHC 34.1 32.0 - 36.0 G/DL RDW 14.5 11 - 15 % Platelet Count 49 (L) 150 - 400 K/UL MPV 8.0 7 - 11 FL Neutrophils 83 (H) 41 - 77 % Lymphocytes 8 (L) 24 - 44 % Monocytes 9 4 - 12 % Eosinophils 0 0 - 5 % Basophils 0 0 - 2 % Absolute Neutrophil Count 3.20 1.8 - 7.0 K/UL Absolute Lymph Count 0.30 (L) 1.0 - 4.8 K/UL Absolute Monocyte Count 0.30 0 - 0.80 K/UL Absolute Eosinophil Count 0.00 0 - 0.45 K/UL Absolute Basophil Count 0.00 0 - 0.20 K/UL PROTIME INR (PT) Collection Time: 08/05/18 1:04 PM Result Value Ref Range INR 1.4 (H) 0.8 - 1.2 COMPREHENSIVE METABOLIC PANEL Collection Time: 08/05/18 1:04 PM Result Value Ref Range Sodium 140 137 - 147 MMOL/L Potassium 3.6 3.5 - 5.1 MMOL/L Chloride 114 (H) 98 - 110 MMOL/L Glucose 163 (H) 70 - 100 MG/DL Blood Urea Nitrogen 29 (H) 7 - 25 MG/DL Creatinine 0.89 0.4 - 1.00 MG/DL Calcium 8.2 (L) 8.5 - 10.6 MG/DL Total Protein 5.2 (L) 6.0 - 8.0 G/DL Total Bilirubin 1.4 (H) 0.3 - 1.2 MG/DL Albumin 3.0 (L) 3.5 - 5.0 G/DL Alk Phosphatase 46 25 - 110 U/L AST (SGOT) 27 7 - 40 U/L CO2 18 (L) 21 - 30 MMOL/L ALT (SGPT) 19 7 - 56 U/L Anion Gap 8 3 - 12 eGFR Non >60 >60 mL/min eGFR >60 >60 mL/min LACTIC ACID (BG - RAPID LACTATE) Collection Time: 08/05/18 1:04 PM Result Value Ref Range Lactic Acid,BG 1.0 0.5 - 2.0 MMOL/L IONIZED CALCIUM Collection Time: 08/05/18 1:04 PM Result Value Ref Range Ionized Calcium 1.18 1.0 - 1.3 MMOL/L MAGNESIUM Collection Time: 08/05/18 1:04 PM Result Value Ref Range Magnesium 1.5 (L) 1.6 - 2.6 mg/dL PHOSPHORUS Collection Time: 08/05/18 1:04 PM Result Value Ref Range Phosphorus 3.0 2.0 - 4.5 MG/DL BNP (B-TYPE NATRIURETIC PEPTI) Collection Time: 08/05/18 1:04 PM Result Value Ref Range B Type Natriuretic Peptide 268.0 (H) 0 - 100 PG/ML TROPONIN-I Collection Time: 08/05/18 1:04 PM Result Value Ref Range Troponin-I <0.01 0.0 - 0.05 NG/ML TYPE & CROSSMATCH Collection Time: 08/05/18 1:04 PM Result Value Ref Range Units Ordered 0 Crossmatch Expires 08/08/2018 Record Check FOUND ABO/RH(D) O POS Antibody Screen NEG Electronic Crossmatch YES PROCALCITONIN Collection Time: 08/05/18 1:04 PM Result Value Ref Range Procalcitonin 3.63 (H) <0.10 NG/ML Pertinent radiology reviewed. Alec Tovar MD Pager ER SHOP MECHANIC Associated attestation - Jayla Adkins MD - 08/05/2018 3:55 PM BOILER SHOP MECHANIC ATTESTATION I personally performed the estrada portions of the E/M visit, discussed case with resident and concur with resident documentation of history, physical exam, assessment, and treatment plan unless otherwise noted. Staff name: Jayla Adkins MD Date: 08/05/2018 in this encounter Miscellaneous Notes * Care Coordination-Inpatient - Yessi Jones RN - 08/08/2018 12:02 PM BOILER SHOP MECHANIC DISCHARGE HEPATOLOGY CARE COORDINATION Patient: Aisha Mallory Admit/Discharge Dates: 08/05/18 - TBD Rounding Physician: Dr. Pia Adkins Brief narrative regarding inpatient admission: 53 y.o.femalewith past medical history of alcoholic cirrhosis complicated with esophageal varices bleeding, ascites presents to the [facility] as a transfer from outside facility due to upper GI bleed. SELF PAY: Scheduling form faxed to Financial Counselors to request EGD be approved and scheudled. Follow-ups: Appointment Date/Time: 11/06/18 @ 2:00 Appointment Provider: Dr. Jayla Adkins Endoscopy Appointment: Patient needs repeat EGD in the beginning of September for follow-up of esophageal varices/GOV 1. Prep for case entered and GI scheduling notified. Patient to be called by GI scheduling with appt if/once approved by FC's.. Education: Patient is aware of the above discharge plan. ~Will be available if patient needs anything from a hepatology standpoint while in the hospital Sunday through Sunday 7am-5pm ~Discharge information to be sent to the Hepatology provider & team that will follow with patientin the outpatient clinic. ALEXANDER Jeffries, RN Inpatient Hepatology Melt House Centrifugal Operator Office: [phone] Pager: [phone] ER SHOP MECHANIC * Case Mgmt DC Plan - CarsonDaphnesofía - 08/08/2018 10:01 AM BOILER SHOP MECHANIC Inpatient Medication Voucher Assessment Date: 08/08/2018 Primary Insurance: None Rx Coverage: No Medicaid pending: No Medicare Part D [place]: No VA Benefits (include location of services if applicable): None Is patient eligible for a Medication Voucher? Yes Date of last Medication Voucher: n/a Charitable Fund to be utilized (include name of fund if applicable): No Narcotics can be included on voucher: No Other information: Reminders: has authorized a Medication Voucher for up to $125. If Voucher is over this amount, please contact . Vouchers are to be provided once during a 12-month period. Vouchers cannot include medications on the Generic Drug List ($4.99) or co- pays. Vouchers should include only new medications; ongoing refills should not be authorized. No more than a 30-day supply should be authorized. Please contact ANGELA with needs outside of these parameters. Regis Carson LMSW Pager/Cell: [phone] ER SHOP MECHANIC * Case Mgmt DC Plan - Bela Torres RN - 08/07/2018 10:54 AM BOILER SHOP MECHANIC Case Management Admission AssessmentNAME:Aisha Mallory :1965 AGE: 53 y.o. ADMISSION DATE: 08/05/2018 DAYS ADMITTED: LOS: 2 days Todays Date: 08/07/2018 Source of Information: This NCM introduced self and explained role of CM. Patient resting in bed and able to answer all questions. Provided patient with business card and contact information. Plan Plan: Case Management Assessment, Assist PRN with /NCM Services, Discharge Planning for Home Anticipated Consult Hepatology Consult PT/OT DC planning on going Continue ICU care Interventions ? Support Patient lives at home with her Son and was independent prior to admission. 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 Patient's quit ETOH 2009. ? Info or Referral ? Discharge Planning ? Medication Needs ? Financial ? Legal ? Other Disposition ? Expected Discharge Date ? Transportation Does the patient need discharge transport arranged?: No Transportation Name, Phone and Availability #1: Elizabeth Grajeda [phone] Does the patient use Medicaid Transportation?: No ? Next Level of Care (Acute Psych discharges only) ? Discharge Disposition Durable Medical Equipment No service has been selected for the patient. [facility] Destination No service has been selected for the patient. Home Care No service has been selected for the patient. Dialysis/Infusion No service has been selected for the patient. Patient Address/Phone [address] [id number] (home) [phone] (work) Emergency Contact Extended Emergency Contact Information Primary Emergency Contact: Ryne Mallory Relation: Father Secondary Emergency Contact: Elizabeth Alvarez Mobile Relation: Sister Healthcare Directive Healthcare Directive: No, patient does not have a healthcare directive Would patient like to fill out a (a new) Healthcare Directive?: Yes, referral to Social Work Psych Advance Directive (Psych unit only): No, patient does not have a Psych Advance Directive Transportation Does the patient need discharge transport arranged?: No Transportation Name, Phone and Availability #1: Elizabeth - Sister [phone] Does the patient use Medicaid Transportation?: No Expected Discharge Date Living Situation Prior to Admission ? Living Arrangements Type of Residence: Home, independent Living Arrangements: Children Bathroom Shower / Tub: Tub/Shower Unit How many levels in the residence?: 1 Can patient live on one level if needed?: N/A Does residence have entry and/or side stairs?: Yes Assistance needed prior to admit or anticipated on discharge: No Who provides assistance or could if needed?: Sister, Father Are they in good health?: Yes Can support system provide 24/7 care if needed?: Yes ? Level of Function Prior level of function: Independent ? Cognitive Abilities Cognitive Abilities: Alert and Oriented, Participates in decision making Financial Resources ? Coverage ? Source of Income Source Of Income: Employed ? Financial Assistance Needed? Psychosocial Needs ? Mental Health Mental Health History: No ? Substance Use History ? Other Current/Previous Services ? PCP Judy Harrison, , ? Pharmacy [address] [address] ? Durable Medical Equipment Durable Medical Equipment at home: (Denies) ? Home Health Receiving home health: No ? Hemodialysis or Peritoneal Dialysis Undergoing hemodialysis or peritoneal dialysis: No ? Tube/Enteral Feeds Receive tube/enteral feeds: No ? Infusion Receive infusions: No ? Private Duty Private duty help used: No ? Home and Community Based Services Home and community based services: No ? Trever White Trever White: N/A ? Hospice Hospice: No ? Outpatient Therapy PT: No OT: No HARDWARE TEST ENGINEER: No ? Fdc Facility/Assisted SNF: No NH: No ? Inpatient Rehab IPR: No ? Long-Term Acute Care Hospital LTACH: No ? Acute Hospital Stay Acute Hospital Stay: No Bela Torres RN, BSN Nurse Blood Bank Supervisor [phone] or [phone] ER SHOP MECHANIC in this encounter Plan of Treatment Care Team Description Date Type Specialty Carlyle Bone MD [address] [place] [address] [phone] End stage liver disease (HCC) 09/04/2018 Hospital Encounter Carlyle Bone MD [address] [place] [address] [phone] ESOPHAGOGASTRODUODENOSCOPY WITH BAND LIGATION ESOPHAGEAL/ GASTRIC VARICES - FLEXIBLE 09/04/2018 Surgery as of this encounter Procedures Comments Procedure Name Priority Date/Time Associated Diagnosis PROTIME INR (PT) Routine 08/08/2018 5:11 AM BOILER SHOP MECHANIC CBC Routine 08/08/2018 5:11 AM BOILER SHOP MECHANIC PHOSPHORUS Routine 08/08/2018 5:11 AM BOILER SHOP MECHANIC MAGNESIUM Routine 08/08/2018 5:11 AM BOILER SHOP MECHANIC COMPREHENSIVE METABOLIC Routine 08/08/2018 PANEL 5:11 AM BOILER SHOP MECHANIC 2-D + DOPPLER KARYN 08/07/2018 ECHOCARDIOGRAM 8:31 AM BOILER SHOP MECHANIC PROTIME INR (PT) Routine 08/07/2018 3:41 AM BOILER SHOP MECHANIC CBC Routine 08/07/2018 3:41 AM BOILER SHOP MECHANIC PHOSPHORUS Routine 08/07/2018 3:41 AM BOILER SHOP MECHANIC MAGNESIUM Routine 08/07/2018 3:41 AM BOILER SHOP MECHANIC COMPREHENSIVE METABOLIC Routine 08/07/2018 PANEL 3:41 AM BOILER SHOP MECHANIC ABDOMEN AP ONLY Routine 08/06/2018 5:06 PM BOILER SHOP MECHANIC UA REFLEX CULTURE LABEL Routine 08/06/2018 10:33 AM BOILER SHOP MECHANIC URINALYSIS MICROSCOPIC Routine 08/06/2018 REFLEX TO CULTURE 10:33 AM BOILER SHOP MECHANIC URINALYSIS DIPSTICK Routine 08/06/2018 REFLEX TO CULTURE 10:33 AM BOILER SHOP MECHANIC CULTURE-URINE 08/06/2018 W/SENSITIVITY 10:33 AM BOILER SHOP MECHANIC COMPREHENSIVE METABOLIC STAT 08/06/2018 PANEL 8:55 AM BOILER SHOP MECHANIC US DOPPLER ABD PELV KARYN 08/06/2018 RETROPER COMP 6:27 AM BOILER SHOP MECHANIC US ABDOMEN COMPLETE KARYN 08/06/2018 6:27 AM BOILER SHOP MECHANIC PROTIME INR (PT) Routine 08/06/2018 3:52 AM BOILER SHOP MECHANIC CBC Routine 08/06/2018 3:52 AM BOILER SHOP MECHANIC PHOSPHORUS Routine 08/06/2018 3:52 AM BOILER SHOP MECHANIC MAGNESIUM Routine 08/06/2018 3:52 AM BOILER SHOP MECHANIC TROPONIN-I STAT 08/05/2018 11:45 PM BOILER SHOP MECHANIC CBC Routine 08/05/2018 11:45 PM BOILER SHOP MECHANIC MAGNESIUM Add on 08/05/2018 11:45 PM BOILER SHOP MECHANIC COMPREHENSIVE METABOLIC Routine 08/05/2018 PANEL 11:45 PM BOILER SHOP MECHANIC TROPONIN-I STAT 08/05/2018 6:28 PM BOILER SHOP MECHANIC CBC Routine 08/05/2018 6:28 PM BOILER SHOP MECHANIC EGD REPORT 08/05/2018 4:46 PM BOILER SHOP MECHANIC ESOPHAGOGASTRODUODENOSCOP 08/05/2018 Upper GI bleeding Y WITH BIOPSY - FLEXIBLE 4:05 PM BOILER SHOP MECHANIC CBC STAT 08/05/2018 3:10 PM BOILER SHOP MECHANIC INFLUENZA A/B AG (RAPID STAT 08/05/2018 TEST) 1:12 PM BOILER SHOP MECHANIC CHEST SINGLE VIEW KARYN 08/05/2018 1:09 PM BOILER SHOP MECHANIC PROCALCITONIN Add on 08/05/2018 1:04 PM BOILER SHOP MECHANIC FREE T4-FREE THYROXINE Routine 08/05/2018 1:04 PM BOILER SHOP MECHANIC TSH WITH FREE T4 REFLEX Routine 08/05/2018 1:04 PM BOILER SHOP MECHANIC LACTIC ACID (BG - RAPID Routine 08/05/2018 LACTATE) 1:04 PM BOILER SHOP MECHANIC TROPONIN-I STAT 08/05/2018 1:04 PM BOILER SHOP MECHANIC PROTIME INR (PT) Routine 08/05/2018 1:04 PM BOILER SHOP MECHANIC CBC AND DIFF Routine 08/05/2018 1:04 PM BOILER SHOP MECHANIC TYPE & CROSSMATCH KARYN 08/05/2018 1:04 PM BOILER SHOP MECHANIC PHOSPHORUS Routine 08/05/2018 1:04 PM BOILER SHOP MECHANIC BNP (B-TYPE NATRIURETIC Routine 08/05/2018 PEPTI) 1:04 PM BOILER SHOP MECHANIC MAGNESIUM Routine 08/05/2018 1:04 PM BOILER SHOP MECHANIC IONIZED CALCIUM Routine 08/05/2018 1:04 PM BOILER SHOP MECHANIC COMPREHENSIVE METABOLIC Routine 08/05/2018 PANEL 1:04 PM BOILER SHOP MECHANIC ECG 12-LEAD STAT 08/05/2018 12:30 PM BOILER SHOP MECHANIC in this encounter Results * CBC (08/08/2018 5:11 AM BOILER SHOP MECHANIC) White Blood Cells 2.7 (L) 4.5 - [...] LAB MCHC 34.1 32.0 - 36.0 G/DL MAIN LAB RDW 15.5 (H) 11 - 15 % [facility] MAIN LAB Platelet Count 66 (L) 150 - 400 K/UL [facility] MAIN LAB MPV 8.2 7 - 11 FL MAIN LAB Specimen Blood Performing Organization Address [facility] Phone Number [facility] [address] [phone] * COMPREHENSIVE METABOLIC PANEL (08/08/2018 5:11 AM BOILER SHOP MECHANIC) Sodium 135 (L) 137 - 147 MMOL/L [...] for questions. Specimen Blood Performing Organization Address [facility] Phone Number [facility] [address] [place] [address] * PHOSPHORUS (08/08/2018 5:11 AM BOILER SHOP MECHANIC) Phosphorus 2.5Comment: NOTE NEW REFERENCE 2.0 - 4.5 MG/DL MAIN LAB RANGES Specimen Blood Performing Organization Address City/[facility] Phone Number MAIN LAB [address] [place] [address] * MAGNESIUM (08/08/2018 5:11 AM [employer]CH[employer]) Magnesium 1.8 1.6 - 2.6 mg/dL MAIN LAB Specimen Blood Performing Organization Address City/[facility] Phone Number MAIN LAB [address] [place] [address] * PROTIME INR (PT) (08/08/2018 5:11 AM [employer] MECH[employer]IC) INR 1.1 0.8 - 1.2 MAIN LAB Specimen Blood Performing Organization Address [facility] Phone Number MAIN LAB [address] [place] [address] * 2-D + DOPPLER ECHOCARDIOGRAM (08/07/2018 8:31 AM [employer]CH[employer]IC) IVS 0.90 0.6 - 0.9 cm OTHER [...] 34 OTHER OUTSIDE LAB Cardiology Ultrasound Siemens [id number] OTHER OUTSIDE LAB Machine Left Ventricle Mass [...] prior echocardiograms for comparison. Performing Organization Address City/[facility] Phone Number OTHER OUTSIDE LAB * CBC (08/07/2018 3:41 AM [employer]) White Blood Cells 3.9 (L) 4.5 - 11.0 K/UL KU MAIN LAB RBC 2.70 (L) 4.0 - 5.0 M/UL K[facility] MAIN LAB Hemoglobin 8.0 (L) 12.0 - 15.0 GM/DL KU MAIN LAB Hematocrit 23.4 (L) 36 - 45 % KU MAIN LAB MCV 86.5 80 - 100 FL KU MAIN LAB MCH 29.5 26 - 34 PG [facility] MAIN LAB MCHC 34.1 32.0 - 36.0 G/DL K[facility] MAIN LAB RDW 15.8 (H) 11 - 15 % [facility] MAIN LAB Platelet Count 60 (L) 150 - 400 K/UL K[facility] MAIN LAB MPV 8.2 7 - 11 FL KU MAIN LAB Specimen Blood Performing Organization Address City/[facility] Phone Number [facility] MAIN LAB [address] [place] [address] * COMPREHENSIVE METABOLIC PANEL (08/07/2018 3:41 AM [employer]) Sodium 136 (L) 137 - 147 MMOL/L KU MAIN LAB Potassium 4.1 3.5 - 5.1 MMOL/L [facility] MAIN LAB Chloride 109 98 - 110 MMOL/L [facility] MAIN LAB Glucose 113 (H) 70 - 100 MG/DL K[facility] MAIN LAB Blood Urea Nitrogen 17 7 - 25 MG/DL K[facility] MAIN LAB Creatinine 0.62 0.4 - 1.00 MG/DL K[facility] MAIN LAB Calcium 8.3 (L) 8.5 - 10.6 MG/DL K[facility] MAIN LAB Total Protein 5.1 (L) 6.0 - 8.0 G/DL [facility] MAIN LAB Total Bilirubin 0.8 0.3 - 1.2 MG/DL K[facility] MAIN LAB Albumin 3.1 (L) 3.5 - 5.0 G/DL [facility] MAIN LAB Alk Phosphatase 49 25 - 110 U/L [facility] MAIN LAB AST (SGOT) 23 7 - 40 U/L [facility] MAIN LAB CO2 24 21 - 30 MMOL/L [facility] MAIN LAB ALT (SGPT) 19 7 - 56 U/L KU MAIN LAB [...] for questions. Specimen Blood Performing Organization Address [facility] Phone Number MAIN LAB [address] [place] [address] * PHOSPHORUS (08/07/2018 3:41 AM [employer]) Phosphorus 2.1Comment: NOTE NEW REFERENCE 2.0 - 4.5 MG/DL KU MAIN LAB RANGES Specimen Blood Performing Organization Address [facility] Phone Number MAIN LAB [address] [place] [address] * MAGNESIUM (08/07/2018 3:41 AM [employer]) Magnesium 2.0 1.6 - 2.6 mg/dL KU MAIN LAB Specimen Blood Performing Organization Address City/[facility] Phone Number MAIN LAB [address] [place] [address] * PROTIME INR (PT) (08/07/2018 3:41 AM [employer] ME[employer]) INR 1.1 0.8 - 1.2 KU MAIN LAB Specimen Blood Performing Organization Address [facility]/[employer] Phone Number MAIN LAB [address] [place] [address] * ABDOMEN AP ONLY (08/06/2018 5:06 PM [employer]) Impressions Performed At No radiographic evidence of [...] Interface, Radiant Results - 08/07/2018 11:49 AM [employer]IC ABDOMEN AP ONLY Clinical Indication: Female, 53 [...] on 08/07/2018 7:49 AM. Performing Organization Address City/[facility]/Zipcode Phone Number KU RAD RESULTS * CULTURE-URINE W/SENSITIVITY (08/06/2018 10:33 AM [employer] MECH[employer]IC) [facility] URINE CULTURE [facility] MAIN LAB Specimen Description URINE [facility] MAIN LAB Special Requests NONE [facility]U MAIN LAB Culture NO GROWTH [facility] MAIN LAB Report Status FINAL [facility] MAIN LAB 08/08/2018 Specimen Urine Performing Organization Address City/[facility]/Zipcode Phone Number KU MAIN LAB [address] [place] [address] * UA REFLEX CULTURE LABEL (08/06/2018 10:33 AM [employer] MECH[employer]) Reflex Culture LAB LABEL K[facility] MAIN LAB Specimen Urine Performing Organization Address City/[facility]/Zipcode Phone Number K[facility] MAIN LAB [address] [place] [address] * URINALYSIS MICROSCOPIC REFLEX TO CULTURE (08/06/2018 10:33 AM [employer]CH[employer]IC) WBCs,UA 10-20 0 - 2 /HPF KU [...] MAIN LAB Specimen Urine Performing Organization Address [facility] Phone Number [facility] MAIN LAB [address] [place] [address] * URINALYSIS DIPSTICK REFLEX TO CULTURE (08/06/2018 10:33 AM [employer]) Color,UA YELLOW [facility] MAIN LAB Turbidity,UA CLEAR CLEAR-CLEAR [facility] MAIN LAB Specific [place]-Urine 1.019 1.003 - 1.035 KU MAIN LAB [...] MAIN LAB Specimen Urine Performing Organization Address [facility] Phone Number [facility] MAIN LAB [address] [place] [address] * COMPREHENSIVE METABOLIC PANEL (08/06/2018 8:55 AM [employer]) Sodium 136 (L) 137 - 147 MMOL/L K[facility] MAIN LAB Potassium 3.9 3.5 - 5.1 MMOL/L [facility] MAIN LAB Chloride 111 (H) 98 - 110 MMOL/L [facility] MAIN LAB Glucose 159 (H) 70 - 100 MG/DL K[facility] MAIN LAB Blood Urea Nitrogen 23 7 - 25 MG/DL K[facility] MAIN LAB Creatinine 0.69 0.4 - 1.00 MG/DL K[facility] MAIN LAB Calcium 8.2 (L) 8.5 - 10.6 MG/DL [facility] MAIN LAB Total Protein 5.2 (L) 6.0 - 8.0 G/DL K[facility] MAIN LAB Total Bilirubin 0.8 0.3 - 1.2 MG/DL K[facility] MAIN LAB Albumin 3.0 (L) 3.5 - 5.0 G/DL K[facility] MAIN LAB Alk Phosphatase 43 25 - 110 U/L K[facility] MAIN LAB AST (SGOT) 29 7 - 40 U/L [facility] MAIN LAB CO2 24 21 - 30 MMOL/L [facility] MAIN LAB ALT (SGPT) 22 7 - 56 U/L [facility] MAIN LAB Anion Gap 1 (L) 3 - 12 K[facility] MAIN LAB eGFR [...] Blood Performing Organization Address City/State/Zipcode Phone Number K[facility] MAIN LAB [address] [place] [address] * US DOPPLER ABD PELV RETROPER COMP (08/06/2018 6:27 AM [employer]) Impressions Performed At 1.Small cirrhotic liver with [...] Interface, Radiant Results - 08/06/2018 6:57 AM [employer]IC Abdominal Ultrasound with Doppler Clinical Indication: Female, [...] * US ABDOMEN COMPLETE (08/06/2018 6:27 AM [employer]IC) Impressions Performed At 1.Small cirrhotic liver with [...] Interface, Radiant Results - 08/06/2018 6:57 AM [employer]IC Abdominal Ultrasound with Doppler Clinical Indication: Female, [...] on 08/06/2018 6:29 AM. Performing Organization Address [facility] Phone Number RAD RESULTS * CBC (08/06/2018 3:52 AM [employer] MECH[employer]IC) White Blood Cells 4.6 4.5 - 11.0 K/UL MAIN LAB RBC 2.61 (L) 4.0 - 5.0 M/UL [facility] MAIN LAB Hemoglobin 7.7 (L) 12.0 - 15.0 GM/DL MAIN LAB Hematocrit 22.6 (L) 36 - 45 % MAIN LAB MCV 86.6 80 - 100 FL MAIN LAB MCH 29.3 26 - 34 PG MAIN LAB MCHC 33.8 32.0 - 36.0 G/DL MAIN LAB RDW 15.3 (H) 11 - 15 % MAIN LAB Platelet Count 57 (L) 150 - 400 K/UL MAIN LAB MPV 8.4 7 - 11 FL MAIN LAB Specimen Blood Performing Organization Address [facility] Phone Number MAIN LAB [address] [place] [address] * PHOSPHORUS (08/06/2018 3:52 AM [employer]) Phosphorus 1.8 (L)Comment: NOTE NEW 2.0 - 4.5 MG/DL MAIN LAB REFERENCE RANGES Specimen Blood Performing Organization Address [facility] Phone Number MAIN LAB [address] [place] [address] * MAGNESIUM (08/06/2018 3:52 AM [employer]) Magnesium 1.8 1.6 - 2.6 mg/dL MAIN LAB Specimen Blood Performing Organization Address [facility] Phone Number MAIN LAB [address] [place] [address] * PROTIME INR (PT) (08/06/2018 3:52 AM [employer]IC) INR 1.3 (H) 0.8 - 1.2 MAIN LAB Specimen Blood Performing Organization Address [facility] Phone Number MAIN LAB [address] [place] [address] * MAGNESIUM (08/05/2018 11:45 PM [employer]) Magnesium 1.8 1.6 - 2.6 mg/dL [facility] MAIN LAB Performing Organization Address City/State/Zipcode Phone Number [facility] [address] [place] [address] * COMPREHENSIVE METABOLIC PANEL (08/05/2018 11:45 PM [employer]IC) Sodium 138 137 - 147 MMOL/L [facility] MAIN LAB Potassium 3.8 3.5 - 5.1 MMOL/L [facility] MAIN LAB Chloride 114 (H) 98 - 110 MMOL/L [facility] MAIN LAB Glucose 146 (H) 70 - 100 MG/DL [facility] MAIN LAB Blood Urea Nitrogen 25 7 - 25 MG/DL K[facility] MAIN LAB Creatinine 0.74 0.4 - 1.00 MG/DL [facility] MAIN LAB Calcium 8.2 (L) 8.5 - 10.6 MG/DL [facility] MAIN LAB Total Protein 5.1 (L) 6.0 - 8.0 G/DL [facility] MAIN LAB Total Bilirubin 0.9 0.3 - 1.2 MG/DL [facility] MAIN LAB Albumin 3.0 (L) 3.5 - 5.0 G/DL [facility] MAIN LAB Alk Phosphatase 47 25 - 110 U/L [facility] MAIN LAB AST (SGOT) 24 7 - 40 U/L [facility] MAIN LAB CO2 22 21 - 30 MMOL/L [facility] MAIN LAB ALT (SGPT) 20 7 - 56 U/L [facility] MAIN LAB Anion Gap 2 (L) 3 - 12 [facility] MAIN LAB eGFR [...] Organization Address City/State/Zipcode Phone Number MAIN LAB [address] [place] [address] * CBC (08/05/2018 11:45 PM [employer]) White Blood Cells 5.5 4.5 - 11.0 K/UL [facility] MAIN LAB RBC 2.68 (L) 4.0 - 5.0 M/UL [facility] MAIN LAB Hemoglobin 7.8 (L) 12.0 - 15.0 GM/DL [facility] MAIN LAB Hematocrit 23.2 (L) 36 - 45 % [facility] MAIN LAB MCV 86.6 80 - 100 FL KU MAIN LAB MCH 29.0 26 - 34 PG MAIN LAB MCHC 33.5 32.0 - 36.0 G/DL [facility] MAIN LAB RDW 15.2 (H) 11 - 15 % [facility] MAIN LAB Platelet Count 61 (L) 150 - 400 K/UL K[facility] MAIN LAB MPV 8.1 7 - 11 FL K[facility] MAIN LAB Specimen Blood Performing Organization Address [facility] Phone Number [facility] MAIN LAB [address] [place] [address] * TROPONIN-I (08/05/2018 11:45 PM [employer]) Troponin-I <0.01 0.0 - 0.05 NG/ML MAIN LAB Specimen Blood Performing Organization Address [facility] Phone Number MAIN LAB [address] [place] [address] * CBC (08/05/2018 6:28 PM [employer]) White Blood Cells 6.2 4.5 - 11.0 K/UL MAIN LAB RBC 2.72 (L) 4.0 - 5.0 M/UL MAIN LAB Hemoglobin 7.9 (L) 12.0 - 15.0 GM/DL MAIN LAB Hematocrit 23.4 (L) 36 - 45 % MAIN LAB MCV 85.9 80 - 100 FL MAIN LAB MCH 28.9 26 - 34 PG MAIN LAB MCHC 33.6 32.0 - 36.0 G/DL MAIN LAB RDW 15.1 (H) 11 - 15 % MAIN LAB Platelet Count 67 (L) 150 - 400 K/UL MAIN LAB MPV 9.0 7 - 11 FL MAIN LAB Specimen Blood Performing Organization Address [facility] Phone Number MAIN LAB [address] [place] [address] * TROPONIN-I (08/05/2018 6:28 PM [employer]) Troponin-I <0.01 0.0 - 0.05 NG/ML MAIN LAB Specimen Blood Performing Organization Address [facility] Phone Number MAIN LAB [address] [place] [address] * EGD REPORT (08/05/2018 4:46 PM [employer]IC) Provation Report Patient Name: Mohamud COOMBS OTHER RESULTS Procedure Date: 08/05/2018 4:46 PM CSN: [id number] Date of : 1965 Gender: Female Attending Physician: Rambo Zapata MD Procedure: Upper GI endoscopy Indications: Esophageal varices. Presented with coffee ground emesis Providers: Rambo Zapata MD (Doctor), Josie Leblanc MD (Fellow), Mitra Lewis RN (Nurse), Pavel Shane (Informatics Manager) Referring Physician: Jayla Adkins MD Medications: Fentanyl [...] On: 08/05/2018 4:46 PM Performing Organization Address City/[facility] Phone Number OTHER RESULTS * CBC (08/05/2018 3:10 PM [employer]) White Blood Cells 4.0 (L) 4.5 - 11.0 K/UL [facility]U MAIN LAB RBC 2.51 (L) 4.0 - 5.0 M/UL [facility] MAIN LAB Hemoglobin 7.3 (L) 12.0 - 15.0 GM/DL MAIN LAB Hematocrit 21.6 (L) 36 - 45 % MAIN LAB MCV 85.8 80 - 100 FL MAIN LAB MCH 28.9 26 - 34 PG MAIN LAB MCHC 33.7 32.0 - 36.0 G/DL MAIN LAB RDW 14.6 11 - 15 % [facility] MAIN LAB Platelet Count 47 (L) 150 - 400 K/UL MAIN LAB MPV 8.0 7 - 11 FL MAIN LAB Specimen Blood Performing Organization Address [facility] Phone Number MAIN LAB [address] [place] [address] * INFLUENZA A/B AG (RAPID TEST) (08/05/2018 1:12 PM [employer]) Battery Name INFLUENZA A/B ANTIGEN MAIN LAB Specimen Description NASOPHARYNGEAL SWAB MAIN LAB Special Requests NONE MAIN LAB Direct Antigen NEGATIVE FOR INFLUENZA A/B [facility] MAIN LAB Report Status FINAL MAIN LAB 08/05/2018 Specimen Nasopharyngeal Swab Performing Organization Address City/State/Zipcode Phone Number MAIN LAB [address] [place] [address] * CHEST SINGLE VIEW (08/05/2018 1:09 PM [employer] MECH[employer]IC) Impressions Performed At No acute cardiopulmonary abnormality. [...] Interface, Radiant Results - 08/05/2018 2:28 PM [employer]IC Procedure: CHEST SINGLE VIEW Clinical Indication: 53-year-old [...] on 08/05/2018 1:12 PM. Performing Organization Address City/State/[facility] Phone Number [facility] RAD RESULTS * FREE T4-FREE THYROXINE (08/05/2018 1:04 PM [employer]IC) T4-Free 1.0 0.6 - 1.6 NG/DL MAIN LAB Performing Organization Address [facility] Phone Number MAIN LAB [address] [place] [address] * PROCALCITONIN (08/05/2018 1:04 PM [employer]) Procalcitonin 3.63 (H) <0.10 NG/ML MAIN LAB Performing Organization Address [facility] Phone Number MAIN LAB [address] [place] [address] * TYPE & CROSSMATCH (08/05/2018 1:04 PM [employer]IC) Units Ordered 0 MAIN LAB Crossmatch Expires 08/08/2018 MAIN LAB Record Check FOUND MAIN LAB ABO/RH(D) O POS MAIN LAB Antibody Screen NEG MAIN LAB Electronic Crossmatch YES MAIN LAB Specimen Blood Performing Organization Address [facility] Phone Number MAIN LAB [address] [place] [address] * TSH WITH FREE T4 REFLEX (08/05/2018 1:04 PM [employer]IC) TSH 0.180 (L) 0.35 - 5.00 MCU/ML MAIN LAB Specimen Blood Performing Organization Address [facility] Phone Number MAIN LAB [address] [place] [address] * TROPONIN-I (08/05/2018 1:04 PM [employer]IC) Troponin-I <0.01 0.0 - 0.05 NG/ML MAIN LAB Specimen Blood Performing Organization [facility] Phone Number MAIN LAB [address] [place] [address] * BNP (B-TYPE NATRIURETIC PEPTI) (08/05/2018 1:04 PM [employer]IC) B Type Natriuretic 268.0 (H) 0 - 100 PG/ML MAIN LAB Peptide Specimen Blood Performing Organization Address [facility] Phone Number MAIN LAB [address] [place] [address] * PHOSPHORUS (08/05/2018 1:04 PM [employer]) Phosphorus 3.0Comment: NOTE NEW REFERENCE 2.0 - 4.5 MG/DL KU MAIN LAB RANGES Specimen Blood Performing Organization Address City/[facility] Phone Number [facility] MAIN LAB [address] [place] [address] * MAGNESIUM (08/05/2018 1:04 PM [employer]) Magnesium 1.5 (L) 1.6 - 2.6 mg/dL K[facility] MAIN LAB Specimen Blood Performing Organization Address [facility] Phone Number [facility] MAIN LAB [address] [place] [address] * IONIZED CALCIUM (08/05/2018 1:04 PM [employer]IC) Ionized Calcium 1.18 1.0 - 1.3 MMOL/L [facility] MAIN LAB Specimen Blood Performing Organization Address [facility] Phone Number [facility] MAIN LAB [address] [place] [address] * LACTIC ACID (BG - RAPID LACTATE) (08/05/2018 1:04 PM [employer] MECH[employer]IC) Lactic Acid,BG 1.0 0.5 - 2.0 MMOL/L [facility] MAIN LAB Specimen Blood Performing Organization Address [facility] Phone Number [facility] MAIN LAB [address] [place] [address] * COMPREHENSIVE METABOLIC PANEL (08/05/2018 1:04 PM [employer]IC) Sodium 140 137 - 147 MMOL/L [facility] MAIN LAB Potassium 3.6 3.5 - 5.1 MMOL/L [facility] MAIN LAB Chloride 114 (H) 98 - 110 MMOL/L [facility] MAIN LAB Glucose 163 (H) 70 - 100 MG/DL [facility] MAIN LAB Blood Urea Nitrogen 29 (H) 7 - 25 MG/DL [facility] MAIN LAB Creatinine 0.89 0.4 - 1.00 MG/DL [facility] MAIN LAB Calcium 8.2 (L) 8.5 - 10.6 MG/DL [facility] MAIN LAB Total Protein 5.2 (L) 6.0 - 8.0 G/DL [facility] MAIN LAB Total Bilirubin 1.4 (H) 0.3 - 1.2 MG/DL KU MAIN LAB Albumin 3.0 (L) 3.5 - 5.0 G/DL [facility] MAIN LAB Alk Phosphatase 46 25 - 110 U/L [facility] MAIN LAB AST (SGOT) 27 7 - 40 U/L [facility] MAIN LAB CO2 18 (L) 21 - 30 MMOL/L K[facility] MAIN LAB ALT (SGPT) 19 7 - 56 U/L [facility] MAIN LAB Anion Gap 8 3 - 12 K[facility] MAIN LAB eGFR [...] for questions. Specimen Blood Performing Organization Address City/[facility]/Zipcode Phone Number [facility] [address] [place] [address] * PROTIME INR (PT) (08/05/2018 1:04 PM [employer] ME[employer]IC) INR 1.4 (H) 0.8 - 1.2 [facility] Specimen Blood Performing Organization Address City/[facility]/Zipcode Phone Number [facility] [address] [place] [address] * CBC AND DIFF (08/05/2018 1:04 PM [employer]IC) White Blood Cells 3.9 (L) 4.5 - 11.0 K/UL [facility] LAB RBC 2.59 (L) 4.0 - 5.0 M/UL [facility]U MAIN LAB Hemoglobin 7.6 (L) 12.0 - 15.0 GM/DL KU MAIN LAB Hematocrit 22.3 (L) 36 - 45 % KU MAIN LAB MCV 86.0 80 - 100 FL MAIN LAB MCH 29.3 26 - 34 PG MAIN LAB MCHC 34.1 32.0 - 36.0 G/DL [facility] MAIN LAB RDW 14.5 11 - 15 % [facility] MAIN LAB Platelet Count 49 (L) 150 - 400 K/UL [facility] MAIN LAB MPV 8.0 7 - 11 FL KU MAIN LAB Neutrophils 83 (H) 41 - 77 % [facility]U MAIN LAB Lymphocytes 8 (L) 24 - 44 % KU MAIN LAB Monocytes 9 4 - 12 % KU MAIN LAB Eosinophils 0 0 - 5 % [facility] MAIN LAB Basophils 0 0 - 2 % [facility] MAIN LAB Absolute Neutrophil Count 3.20 1.8 - 7.0 K/UL [facility] MAIN LAB Absolute Lymph Count 0.30 (L) 1.0 - 4.8 K/UL [facility] MAIN LAB Absolute Monocyte Count 0.30 0 - 0.80 K/UL [facility] MAIN LAB Absolute Eosinophil Count 0.00 0 - 0.45 K/UL [facility] MAIN LAB Absolute Basophil Count 0.00 0 - 0.20 K/UL [facility] MAIN LAB Specimen Blood Performing Organization Address City/State/Zipcode Phone Number [facility] MAIN LAB [address] [place] [address] in this encounter Visit Diagnoses Diagnosis Upper GI bleeding - Primary Hemorrhage of gastrointestinal tract, unspecified Alcoholic cirrhosis of liver without ascites (HCC) Alcoholic cirrhosis of liver Secondary esophageal varices with bleeding (HCC) Esophageal varices with bleeding in diseases classified elsewhere UTI (lower urinary tract infection) Urinary tract infection, site not specified Acute blood loss anemia Acute posthemorrhagic anemia Underweight Cirrhosis (HCC) Cirrhosis of liver without mention of alcohol Esophageal varices (HCC) Esophageal varices without mention of bleeding in this encounter Administered Medications Action Date Dose Rate Site Medication Order MAR Action 08/07/2018 6:16 AM [employer]CH[employer] 325 mg acetaminophen (TYLENOL) tablet 650 mg Given 650 mg, Oral, EVERY 6 HOURS PRN, Starting Sun08/06/18 at 0231, Until Sondra 08/08/18 at 1556, Pain non-opioid: may be used alone or in combination with opioid analgesia, TOTAL ACETAMINOPHEN DOSE NOT TO EXCEED 4GM DAILY, 650 mg Given 08/06/2018 9:00 AM [employer] 650 mg Given 08/06/2018 2:36 AM [employer]CH[employer]IC 08/07/2018 3:16 PM [employer] 1 lozenge benzocaine/menthol (CHLORASEPTIC) Given lozenge 1 lozenge 1 lozenge, Oral, EVERY 2 HOURS PRN, Starting Sun08/07/18 at 1509, Until Sondra 08/08/18 at 1556, Mouth/Throat Pain 08/08/2018 11:44 AM [employer]IC 1 g cefTRIAXone (ROCEPHIN) IVP 1 g Given 1 g, Intravenous, EVERY 24 HOURS, 7 doses, First dose on 08/05/18 at 1445, Last dose on 08/11/18 at 1445, INSTR: IV PUSH -- RECONSTITUTE EACH 1 GM WITH 10 MLS 0.9% NACL , 1 g Given 08/07/2018 2:21 PM [employer]IC 1 g Given 08/06/2018 2:08 PM [employer]CH[employer]IC 08/05/2018 5:00 PM [employer] 50 mcg fentaNYL citrate PF (SUBLIMAZE) Given injection 50-100 mcg 50-100 mcg, Intravenous, ONCE, 1 dose, Sun08/05/18 at 1645, For EGD, 08/05/2018 2:33 PM [employer]CH[employer]IC 500 mL 250 mL/hr lactated ringers infusion Given - New 1,000 mL, 500 mL, Intravenous, at 250 Bag mL/hr, BOLUS, 1 dose, Sun08/05/18 at 1345 08/05/2018 5:00 PM [employer]IC 500 mL 500 mL/hr lactated ringers infusion Given - New 1,000 mL, 500 mL, Intravenous, at 500 Bag mL/hr, BOLUS, 1 dose, Sun08/05/18 at 1745 08/06/2018 5:33 AM [employer]IC 500 mL 999 mL/hr lactated ringers infusion Given - New 1,000 mL, 500 mL, Intravenous, at 999 Bag mL/hr, BOLUS, 1 dose, Sun08/06/18 at 0530, Please NICOM with bolus, LACTATED RINGERS IV SOLP (Cabinet Override) NOW, 1 dose, Sun08/05/18 at 1730, Created by cabinet override, Created by cabinet override, 08/06/2018 7:24 AM [employer] MECH[employer]IC 1 g 100 mL/hr magnesium sulfate 1 g/D5W 100 mL IVPB Given - New 1 g, Intravenous, 100 mL, Administer Bag over 1 Hours, EVERY 1 HOUR FOR 2 DOSES, 2 doses, First dose on Sun08/06/18 at 0600, Last dose on Sun08/06/18 at 0700, Each 1gm delivers 8.1 mEq Magnsium., 1 g 100 mL/hr Given - New Bag 08/06/2018 5:42 AM [employer]IC 08/05/2018 3:50 PM [employer]CH[employer]IC 10 mg metoclopramide (REGLAN) injection 10 mg Given 10 mg, Intravenous, ONCE, 1 dose, Sun08/05/18 at 1600 08/05/2018 4:56 PM [employer]IC 5 mg midazolam (VERSED) injection 1-5 mg Given 1-5 mg, Intravenous, ONCE, 1 dose, Sun08/05/18 at 1645, For EGD Per Dr Zapata, 08/06/2018 11:04 AM [employer] 0.02 mcg/kg/min 3.4 mL/hr norepinephrine (LEVOPHED) 4 mg in Dose/Rate dextrose 5% (D5W) 250 mL IV drip (std Change conc) 0.01-0.3 mcg/kg/min 45.8 kg (1.7175-51.525 mL/hr, rounded to 1.7-51.5 mL/hr) 250 mL, at 1.7-51.5 mL/hr, Intravenous, TITRATE DIRECTED , Starting Sun08/05/18 at 1730, Until Sun08/07/18 at 0457, Initiate at .01 mcg/kg/min Titrate to keep: (MAP > 60} Std Conc=16mcg/mL. For weight-based dosing, use patient dosing weight., 0.04 mcg/kg/min 6.9 mL/hr Dose/Rate Change 08/06/2018 10:18 AM [employer]CH[employer]IC 0.06 mcg/kg/min 10.3 mL/hr Dose/Rate Change 08/06/2018 8:51 AM [employer] MECH[employer]IC 08/08/2018 4:32 AM [employer]CH[employer]IC 50 mcg/hr 10 mL/hr octreotide (SANDOSTATIN) 500 mcg in Given - New sodium chloride 0.9% (NS) 100 mL IV drip Bag (std conc) 50 mcg/hr (10 mL/hr), Intravenous, 100 mL, at 10 mL/hr, CONTINUOUS, Starting Sun08/05/18 at 1230, Until Sun08/08/18 at 1229, Initiate at 50 mcg/hr Titrate to keep: Do not titrate, 50 mcg/hr 10 mL/hr Given - New Bag 08/07/2018 5:05 PM [employer] 50 mcg/hr 10 mL/hr Given - New Bag 08/07/2018 6:26 AM [employer]CH[employer]IC 08/06/2018 5:04 PM [employer]CH[employer] 5 mg oxyCODONE (ROXICODONE, OXY-IR) tablet 5 Given mg 5 mg, Oral, ONCE, 1 dose, Sun08/06/18 at 1645 08/06/2018 9:12 PM [employer]IC 5 mg oxyCODONE (ROXICODONE, OXY-IR) tablet 5 Given mg 5 mg, Oral, ONCE, 1 dose, Sun08/06/18 at 2115 08/08/2018 4:33 AM [employer]CH[employer]IC 5 mg oxyCODONE (ROXICODONE, OXY-IR) tablet 5 Given mg 5 mg, Oral, EVERY 6 HOURS PRN, Starting Sun08/07/18 at 0944, Until Sun08/08/18 at 1556, Pain PO 5 mg Given 08/07/2018 10:04 PM [employer] 5 mg Given 08/07/2018 10:25 AM [employer] 08/08/2018 11:44 AM [employer] 40 mg pantoprazole (PROTONIX) injection 40 mg Given 40 mg, Intravenous, TWICE DAILY, First dose on Sun08/05/18 at 1445, Until Discontinued 40 mg Given 08/07/2018 9:45 PM [employer] 40 mg Given 08/07/2018 10:26 AM [employer] 08/07/2018 8:41 AM [employer] 5 mg Abdominal Tissue phytonadione (VITAMIN K) injection 5 mg Given 5 mg, Subcutaneous, DAILY, 3 doses, First dose on Sun08/05/18 at 1515, Last dose on Sun08/07/18 at 0900 5 mg Abdominal Tissue Given 08/06/2018 9:00 AM [employer] 5 mg Abdominal Tissue Given 08/05/2018 2:42 PM [employer] 08/07/2018 9:31 AM [employer] 17 g polyethylene glycol 3350 (MIRALAX) Given packet 17 g 17 g (1 packet), Oral, DAILY, First dose on Sun08/06/18 at 1745, Until Discontinued, 8.5 GRAMS=0.5 PACKET 17 GRAMS=1 PACKET 34 GRAMS=2 PACKETS, 17 g Given 08/06/2018 5:04 PM BOILER SHOP MECHANIC 08/06/2018 10:09 AM BOILER SHOP MECHANIC 24 mmol 83.3 mL/hr potassium phosphate 24 mmol in sodium Given - New chloride 0.9% (NS) 500 mL IVPB (std) Bag 24 mmol, Intravenous, 500 mL, Administer over 6 Hours, ONCE, 1 dose, Sun08/06/18 at 0915, Each 10mM K Phos delivers 14.7meq K+ NOTE: This is a HIGH ALERT Medication., 08/07/2018 9:45 PM BOILER SHOP MECHANIC 1 tablet senna/docusate (SENOKOT-S) tablet 1 Given tablet 1 tablet, Oral, TWICE DAILY, First dose on Sun08/06/18 at 2100, Until Discontinued, Hold for loose stools, 1 tablet Given 08/07/2018 8:41 AM BOILER SHOP MECHANIC 1 tablet Given 08/06/2018 8:48 PM BOILER SHOP MECHANIC in this encounter
--- OUTSIDE RECORDS SUMMARY | 2018-08-15 14:32 | XMS REPORT | Encounter Summary ---
Author Author [facility] Organization [facility] Address Unknown Phone Unavailable Care Team Providers Care Supervisor [employer] Name Role Phone Xuan Solomon MD Unavailable [...] Details Care Team Description Date Type Department Yessi Jones RN End stage liver disease (HCC) (Primary Dx) 08/07/2018 Prep for [facility] [address] [place] [address] Social History Date Tobacco Use [...] Status Date of Assessment Functional Status Response 08/05/2018 Does the patient have a hearing impairment: [...] as of this encounter Plan of Treatment Care Team Description Date Type Specialty Carlyle Bone MD [address] [place] [address] [phone] End stage liver disease (HCC) 09/04/2018 Hospital Encounter Carlyle Bone MD [address] [place] [address] [phone] ESOPHAGOGASTRODUODENOSCOPY WITH BAND LIGATION ESOPHAGEAL/ GASTRIC VARICES - FLEXIBLE 09/04/2018 Surgery as of this encounter Visit Diagnoses Diagnosis End stage liver disease (HCC) - Primary in this encounter
--- OUTSIDE RECORDS SUMMARY | 2018-08-15 14:33 | XMS REPORT | Encounter Summary ---
Author Author [facility] Organization [facility] Address Unknown Phone Unavailable Care Team Providers Care Integrated Logistics Programs Director Name Role Phone Xuan Solomon MD Unavailable True Arauz MD Unavailable Radha Chance Unavailable Unavailable Jayla Adkins MD Unavailable Eleuterio Berger MD Unavailable Gabriel Kuar RN Unavailable Unavailable Judy Harrison APRN PCP Michelle Edwards RN Unavailable Unavailable Magalis Stinson Unavailable Unavailable Ervin Stevenson MD Unavailable Asiya Culver Unavailable Unavailable Akila Zavala RN Unavailable Yessi Carreon MD Unavailable Encounter Details Care Team Description Date Type Department 08/05/2018 Hospital [facility] Encounter Hospital Radiology [facility] [address] [place] [id number] Social History Date Tobacco Use Types [...] cognitive impairment: No as of this encounter Medications at Time of Discharge [...] by mouth twice daily for 3 days. 08/07/2018 other medication 1 Dose. 0 Medication Name & Strength: Circulation and Nancy Support Dose(how many): 1 tab Frequency(how often): QDAY as of this encounter Plan of Treatment Care Team Description Date Type Specialty Carlyle Bone MD [address] [place] [address] [phone] End stage liver disease (HCC) 09/04/2018 Hospital Encounter Carlyle Bone MD [address] [place] [address] [phone] ESOPHAGOGASTRODUODENOSCOPY WITH BAND LIGATION ESOPHAGEAL/ GASTRIC VARICES - FLEXIBLE 09/04/2018 Surgery as of this encounter Procedures Comments Procedure Name Priority Date/Time Associated Diagnosis GENERAL RAD CHEST Routine 08/05/2018 Diagnosis unknown EXTERNAL IMAGING 10:44 AM COOK APPRENTICE PASTRY in this encounter Results * GENERAL RAD CHEST EXTERNAL IMAGING (08/05/2018 10:44 AM COOK APPRENTICE PASTRY) Narrative Performed At This order has been auto finalized and does not contain a result. in this encounter Visit Diagnoses Diagnosis Diagnosis unknown Other unknown and unspecified cause of morbidity or mortality in this encounter
--- OUTSIDE RECORDS SUMMARY | 2018-08-15 14:33 | XMS REPORT | Encounter Summary ---
Author Author [facility] Organization [facility] Address Unknown Phone Unavailable Care Team Providers Care Diesel Engine Specialist Name Role Phone Xuan Solomon MD Unavailable [...] Description Date Type Department 08/05/2018 Hospital [facility] Encounter Hospital Radiology [facility] [address] [place] [id number] Social History Date Tobacco Use Types [...] Date Type Specialty Carlyle Bone MD [address] [place] [address] [phone] End stage liver disease (HCC) 09/04/2018 Hospital Encounter Carlyle Bone MD [address] [place] [address] [phone] ESOPHAGOGASTRODUODENOSCOPY WITH BAND LIGATION ESOPHAGEAL/ GASTRIC VARICES - FLEXIBLE 09/04/2018 Surgery as of this encounter Procedures Comments Procedure Name Priority Date/Time Associated Diagnosis GENERAL RAD CHEST Routine 08/05/2018 EXTERNAL IMAGING 10:43 AM WIRE MESH FILTER FABRICATOR ECG-SCAN 08/05/2018 12:00 AM WIRE MESH FILTER FABRICATOR in this encounter Results * GENERAL RAD CHEST EXTERNAL IMAGING (08/05/2018 10:43 AM WIRE MESH FILTER FABRICATOR) Narrative Performed At This order has been auto finalized and does not contain a result. * ECG-SCAN (08/05/2018 12:00 AM WIRE MESH FILTER FABRICATOR) Narrative Performed At Ordered by an unspecified provider. in this encounter Visit Diagnoses Not on filein this encounter
--- OUTSIDE RECORDS SUMMARY | 2018-08-15 14:33 | XMS REPORT | Encounter Summary ---
Author Author [facility] Organization [facility] Address Unknown Phone Unavailable Care Team Providers Care Rig Mechanic Name Role Phone Xuan Solomon MD Unavailable [...] Details Care Team Description Date Type Department Rambo Zapata MD [address] [place] [address] ESOPHAGOGASTRODUODENOSCOPY WITH BIOPSY - FLEXIBLE 08/05/2018 Surgery Gastrointenstinal Endoscopy [address] [place] [address] Social History Date Tobacco Use [...] Taken Vital Sign Reading 08/08/2018 11:35 AM BRAILLE TEACHER Blood Pressure 106/78 08/08/2018 11:35 AM BRAILLE TEACHER Pulse 80 08/08/2018 11:35 AM BRAILLE TEACHER Temperature 36.7 C (98.1 F) - Respiratory Rate - 08/08/2018 11:35 AM BRAILLE TEACHER Oxygen Saturation 97% - Inhaled Oxygen - Concentration 08/07/2018 8:31 AM BRAILLE TEACHER Weight 45.4 kg (100 lb) 08/07/2018 8:31 AM BRAILLE TEACHER Height 157.5 cm (5' 2") 08/07/2018 8:31 AM BRAILLE TEACHER Body Mass Index 18.29 in this encounter [...] for 3 days. as of this encounter Plan of Treatment Care Team Description Date Type Specialty Carlyle Bone MD [address] [place] [address] [phone] End stage liver disease (HCC) 09/04/2018 Hospital Encounter Carlyle Bone MD [address] [place] [address] [phone] ESOPHAGOGASTRODUODENOSCOPY WITH BAND LIGATION ESOPHAGEAL/ GASTRIC VARICES - FLEXIBLE 09/04/2018 Surgery as of this encounter Procedures Comments Procedure Name Priority Date/Time Associated Diagnosis PROTIME INR (PT) Routine 08/08/2018 5:11 AM BRAILLE TEACHER CBC Routine 08/08/2018 5:11 AM BRAILLE TEACHER PHOSPHORUS Routine 08/08/2018 5:11 AM BRAILLE TEACHER MAGNESIUM Routine 08/08/2018 5:11 AM BRAILLE TEACHER COMPREHENSIVE METABOLIC Routine 08/08/2018 PANEL 5:11 AM BRAILLE TEACHER 2-D + DOPPLER KARYN 08/07/2018 ECHOCARDIOGRAM 8:31 AM BRAILLE TEACHER PROTIME INR (PT) Routine 08/07/2018 3:41 AM BRAILLE TEACHER CBC Routine 08/07/2018 3:41 AM BRAILLE TEACHER PHOSPHORUS Routine 08/07/2018 3:41 AM BRAILLE TEACHER MAGNESIUM Routine 08/07/2018 3:41 AM BRAILLE TEACHER COMPREHENSIVE METABOLIC Routine 08/07/2018 PANEL 3:41 AM BRAILLE TEACHER ABDOMEN AP ONLY Routine 08/06/2018 5:06 PM BRAILLE TEACHER UA REFLEX CULTURE LABEL Routine 08/06/2018 10:33 AM BRAILLE TEACHER URINALYSIS MICROSCOPIC Routine 08/06/2018 REFLEX TO CULTURE 10:33 AM BRAILLE TEACHER URINALYSIS DIPSTICK Routine 08/06/2018 REFLEX TO CULTURE 10:33 AM BRAILLE TEACHER CULTURE-URINE 08/06/2018 W/SENSITIVITY 10:33 AM BRAILLE TEACHER COMPREHENSIVE METABOLIC STAT 08/06/2018 PANEL 8:55 AM BRAILLE TEACHER US DOPPLER ABD PELV KARYN 08/06/2018 RETROPER COMP 6:27 AM BRAILLE TEACHER US ABDOMEN COMPLETE KARYN 08/06/2018 6:27 AM BRAILLE TEACHER PROTIME INR (PT) Routine 08/06/2018 3:52 AM BRAILLE TEACHER CBC Routine 08/06/2018 3:52 AM BRAILLE TEACHER PHOSPHORUS Routine 08/06/2018 3:52 AM BRAILLE TEACHER MAGNESIUM Routine 08/06/2018 3:52 AM BRAILLE TEACHER TROPONIN-I STAT 08/05/2018 11:45 PM BRAILLE TEACHER CBC Routine 08/05/2018 11:45 PM BRAILLE TEACHER MAGNESIUM Add on 08/05/2018 11:45 PM BRAILLE TEACHER COMPREHENSIVE METABOLIC Routine 08/05/2018 PANEL 11:45 PM BRAILLE TEACHER TROPONIN-I STAT 08/05/2018 6:28 PM BRAILLE TEACHER CBC Routine 08/05/2018 6:28 PM BRAILLE TEACHER EGD REPORT 08/05/2018 4:46 PM BRAILLE TEACHER ESOPHAGOGASTRODUODENOSCOP 08/05/2018 Upper GI bleeding Y WITH BIOPSY - FLEXIBLE 4:05 PM BRAILLE TEACHER CBC STAT 08/05/2018 3:10 PM BRAILLE TEACHER INFLUENZA A/B AG (RAPID STAT 08/05/2018 TEST) 1:12 PM BRAILLE TEACHER CHEST SINGLE VIEW KARYN 08/05/2018 1:09 PM BRAILLE TEACHER PROCALCITONIN Add on 08/05/2018 1:04 PM BRAILLE TEACHER FREE T4-FREE THYROXINE Routine 08/05/2018 1:04 PM BRAILLE TEACHER TSH WITH FREE T4 REFLEX Routine 08/05/2018 1:04 PM BRAILLE TEACHER LACTIC ACID (BG - RAPID Routine 08/05/2018 LACTATE) 1:04 PM BRAILLE TEACHER TROPONIN-I STAT 08/05/2018 1:04 PM BRAILLE TEACHER PROTIME INR (PT) Routine 08/05/2018 1:04 PM BRAILLE TEACHER CBC AND DIFF Routine 08/05/2018 1:04 PM BRAILLE TEACHER TYPE & CROSSMATCH KARYN 08/05/2018 1:04 PM BRAILLE TEACHER PHOSPHORUS Routine 08/05/2018 1:04 PM BRAILLE TEACHER BNP (B-TYPE NATRIURETIC Routine 08/05/2018 PEPTI) 1:04 PM BRAILLE TEACHER MAGNESIUM Routine 08/05/2018 1:04 PM BRAILLE TEACHER IONIZED CALCIUM Routine 08/05/2018 1:04 PM BRAILLE TEACHER COMPREHENSIVE METABOLIC Routine 08/05/2018 PANEL 1:04 PM BRAILLE TEACHER ECG 12-LEAD STAT 08/05/2018 12:30 PM BRAILLE TEACHER in this encounter Results * CBC (08/08/2018 5:11 AM BRAILLE TEACHER) White Blood Cells 2.7 (L) 4.5 - [...] Address City/State/Zipcode Phone Number MAIN LAB [address] [place] [phone] * COMPREHENSIVE METABOLIC PANEL (08/08/2018 5:11 AM BRAILLE TEACHER) Sodium 135 (L) 137 - 147 MMOL/L [...] Organization Address City/State/Zipcode Phone Number MAIN LAB [address] [place] [address] * PHOSPHORUS (08/08/2018 5:11 AM BRAILLE TEACHER) Phosphorus 2.5Comment: NOTE NEW REFERENCE 2.0 - 4.5 MG/DL [facility] MAIN LAB RANGES Specimen Blood Performing Organization Address [facility] Phone [facility] LAB [address] [place] [address] * MAGNESIUM (08/08/2018 5:11 AM BRAILLE TEACHER) Magnesium 1.8 1.6 - 2.6 mg/dL [facility] MAIN LAB Specimen Blood Performing Organization Address City/[facility] Phone Number MA[facility] LAB [address] [place] [address] * PROTIME INR (PT) (08/08/2018 5:11 AM BRAILLE TEACHER) INR 1.1 0.8 - 1.2 MAIN LAB Specimen Blood Performing Organization Address [facility] Phone Number MAIN LAB [address] [place] [address] * 2-D + DOPPLER ECHOCARDIOGRAM (08/07/2018 8:31 AM BRAILLE TEACHER) IVS 0.90 0.6 - 0.9 cm OTHER [...] 34 OTHER OUTSIDE LAB Cardiology Ultrasound Siemens [id number] OTHER OUTSIDE LAB Machine Left Ventricle Mass [...] prior echocardiograms for comparison. Performing Organization Address City/[facility]/Zipcode Phone Number OTHER OUTSIDE LAB * CBC (08/07/2018 3:41 AM BRAILLE TEACHER) White Blood Cells 3.9 (L) 4.5 - [...] MAIN LAB Specimen Blood Performing Organization Address City/[facility]/Zipcode Phone Number MAIN LAB [address] [place] [address] * COMPREHENSIVE METABOLIC PANEL (08/07/2018 3:41 AM BRAILLE TEACHER) Sodium 136 (L) 137 - 147 MMOL/L [...] for questions. Specimen Blood Performing Organization Address [facility] Phone Number MAIN LAB [address] [place] [address] * PHOSPHORUS (08/07/2018 3:41 AM BRAILLE TEACHER) Phosphorus 2.1Comment: NOTE NEW REFERENCE 2.0 - 4.5 MG/DL MAIN LAB RANGES Specimen Blood Performing Organization Address [facility] Phone Number MAIN LAB [address] [place] [phone] * MAGNESIUM (08/07/2018 3:41 AM BRAILLE TEACHER) Magnesium 2.0 1.6 - 2.6 mg/dL MAIN LAB Specimen Blood Performing Organization Address [facility] Phone Number MAIN LAB [address] [place] [phone] * PROTIME INR (PT) (08/07/2018 3:41 AM BRAILLE TEACHER) INR 1.1 0.8 - 1.2 MAIN LAB Specimen Blood Performing Organization Address [facility] Phone Number MAIN LAB [address] [place] [phone] * ABDOMEN AP ONLY (08/06/2018 5:06 PM BRAILLE TEACHER) Impressions Performed At No radiographic evidence of bowel obstruction. RAD RESULTS Approved by Alec Garcia M.D. [...] Interface, Radiant Results - 08/07/2018 11:49 AM BRAILLE TEACHER ABDOMEN AP ONLY Clinical Indication: Female, 53 [...] on 08/07/2018 7:49 AM. Performing Organization Address City/[facility]/Zipcode Phone Number RAD RESULTS * CULTURE-URINE W/SENSITIVITY (08/06/2018 10:33 AM BRAILLE TEACHER) [facility] URINE CULTURE [facility] MAIN LAB Specimen Description URINE [facility] MAIN LAB Special Requests NONE [facility] MAIN LAB Culture NO GROWTH [facility] MAIN LAB Report Status FINAL MAIN LAB 08/08/2018 Specimen Urine Performing Organization Address City/[facility]/Zipcode Phone Number [facility] MAIN LAB [address] [place] [address] * UA REFLEX CULTURE LABEL (08/06/2018 10:33 AM BRAILLE TEACHER) UA Reflex Culture LAB LABEL [facility] MAIN LAB Specimen Urine Performing Organization Address City/[facility] Phone Number MAIN LAB [address] [place] [address] * URINALYSIS MICROSCOPIC REFLEX TO CULTURE (08/06/2018 10:33 AM BRAILLE TEACHER) WBCs,UA 10-20 0 - 2 /HPF KU [...] MAIN LAB Specimen Urine Performing Organization Address City/[facility] Phone Number [facility] MAIN [facility] [address] [place] [address] * URINALYSIS DIPSTICK REFLEX TO CULTURE (08/06/2018 10:33 AM BRAILLE TEACHER) Color,UA YELLOW [facility] MAIN LAB Turbidity,UA CLEAR CLEAR-CLEAR [facility] MAIN LAB Specific [place]-Urine 1.019 1.003 - 1.035 [facility] MAIN LAB [...] MAIN LAB Specimen Urine Performing Organization Address [facility] Phone Number [facility] MAIN LAB [address] [place] [address] * COMPREHENSIVE METABOLIC PANEL (08/06/2018 8:55 AM BRAILLE TEACHER) Sodium 136 (L) 137 - 147 MMOL/L [...] Address City/State/Zipcode Phone Number [facility] MAIN LAB [address] [place] [address] * US DOPPLER ABD PELV RETROPER COMP (08/06/2018 6:27 AM BRAILLE TEACHER) Impressions Performed At 1.Small cirrhotic liver with [...] Interface, Radiant Results - 08/06/2018 6:57 AM BRAILLE TEACHER Abdominal Ultrasound with Doppler Clinical Indication: Female, [...] * US ABDOMEN COMPLETE (08/06/2018 6:27 AM BRAILLE TEACHER) Impressions Performed At 1.Small cirrhotic liver with [...] Interface, Radiant Results - 08/06/2018 6:57 AM BRAILLE TEACHER Abdominal Ultrasound with Doppler Clinical Indication: Female, [...] on 08/06/2018 6:29 AM. Performing Organization Address [facility] Phone Number RAD RESULTS * CBC (08/06/2018 3:52 AM BRAILLE TEACHER) White Blood Cells 4.6 4.5 - 11.0 K/UL [facility] MAIN LAB RBC 2.61 (L) 4.0 - 5.0 M/UL [facility] MAIN LAB Hemoglobin 7.7 (L) 12.0 - 15.0 GM/DL [facility] MAIN LAB Hematocrit 22.6 (L) 36 - 45 % [facility] MAIN LAB MCV 86.6 80 - 100 FL [facility] MAIN LAB MCH 29.3 26 - 34 PG [facility] MAIN LAB MCHC 33.8 32.0 - 36.0 G/DL MAIN LAB RDW 15.3 (H) 11 - 15 % MAIN LAB Platelet Count 57 (L) 150 - 400 K/UL MAIN LAB MPV 8.4 7 - 11 FL MAIN LAB Specimen Blood Performing Organization Address [facility] Phone Number MAIN LAB [address] [place] [address] * PHOSPHORUS (08/06/2018 3:52 AM BRAILLE TEACHER) Phosphorus 1.8 (L)Comment: NOTE NEW 2.0 - 4.5 MG/DL MAIN LAB REFERENCE RANGES Specimen Blood Performing Organization [facility] Phone Number MAIN LAB [address] [place] [address] * MAGNESIUM (08/06/2018 3:52 AM BRAILLE TEACHER) Magnesium 1.8 1.6 - 2.6 mg/dL MAIN LAB Specimen Blood Performing Organization Address [facility] Phone Number MAIN LAB [address] [place] [address] * PROTIME INR (PT) (08/06/2018 3:52 AM BRAILLE TEACHER) INR 1.3 (H) 0.8 - 1.2 MAIN LAB Specimen Blood Performing Organization [facility] Phone Number MAIN LAB [address] [place] [address] * MAGNESIUM (08/05/2018 11:45 PM BRAILLE TEACHER) Magnesium 1.8 1.6 - 2.6 mg/dL [facility] MAIN LAB Performing Organization Address [facility]/Zipcode Phone Number [facility] MAIN LAB [address] [place] [address] * COMPREHENSIVE METABOLIC PANEL (08/05/2018 11:45 PM BRAILLE TEACHER) Sodium 138 137 - 147 MMOL/L K[facility] [...] City/State/Zipcode Phone Number MAIN LAB [address] [place] [address] * CBC (08/05/2018 11:45 PM BRAILLE TEACHER) White Blood Cells 5.5 4.5 - 11.0 [...] LAB MCHC 33.5 32.0 - 36.0 G/DL MAIN LAB RDW 15.2 (H) 11 - 15 % [facility] MAIN LAB Platelet Count 61 (L) 150 - 400 K/UL MAIN LAB MPV 8.1 7 - 11 FL MAIN LAB Specimen Blood Performing Organization Address [facility] Phone Number MAIN LAB [address] [place] [address] * TROPONIN-I (08/05/2018 11:45 PM BRAILLE TEACHER) Troponin-I <0.01 0.0 - 0.05 NG/ML MAIN LAB Specimen Blood Performing Organization Address [facility] Phone Number MAIN LAB [address] [place] [address] * CBC (08/05/2018 6:28 PM BRAILLE TEACHER) White Blood Cells 6.2 4.5 - 11.0 K/UL MAIN LAB RBC 2.72 (L) 4.0 - 5.0 M/UL [facility] MAIN LAB Hemoglobin 7.9 (L) 12.0 - [...] MAIN LAB Specimen Blood Performing Organization Address [facility] Phone Number MAIN LAB [address] [place] [address] * TROPONIN-I (08/05/2018 6:28 PM BRAILLE TEACHER) Troponin-I <0.01 0.0 - 0.05 NG/ML MAIN LAB Specimen Blood Performing Organization Address [facility] Phone Number MAIN LAB [address] [place] [address] * EGD REPORT (08/05/2018 4:46 PM BRAILLE TEACHER) Provation Report Patient Name: Mohamud COOMBS OTHER RESULTS Procedure Date: 08/05/2018 4:46 PM CSN: [id number] Date of : 1965 Gender: Female Attending Physician: Rambo Zapata MD Procedure: Upper GI endoscopy Indications: Esophageal varices. Presented with coffee ground emesis Providers: Rambo Zapata MD (Doctor), Josie Leblanc MD (Fellow), Mitra Lewis RN (Nurse), Pavel Shane (Business Advisor) Referring Physician: Jayla Adkins MD Medications: Fentanyl [...] On: 08/05/2018 4:46 PM Performing Organization Address City/[facility] Phone Number OTHER RESULTS * CBC (08/05/2018 3:10 PM BRAILLE TEACHER) White Blood Cells 4.0 (L) 4.5 - 11.0 K/UL MAIN LAB RBC 2.51 (L) 4.0 - 5.0 M/UL MAIN LAB Hemoglobin 7.3 (L) 12.0 - 15.0 GM/DL [facility] LAB Hematocrit 21.6 (L) 36 - 45 % MAIN LAB MCV 85.8 80 - 100 FL MAIN LAB MCH 28.9 26 - 34 PG [facility] LAB MCHC 33.7 32.0 - 36.0 G/DL [facility] LAB RDW 14.6 11 - 15 % MAIN LAB Platelet Count 47 (L) 150 - 400 K/UL [facility] LAB MPV 8.0 7 - 11 FL [facility] Specimen Blood Performing Organization Address City/[facility]/Zipcode Phone Number [facility] [address] [place] [address] * INFLUENZA A/B AG (RAPID TEST) (08/05/2018 1:12 PM BRAILLE TEACHER) Battery Name INFLUENZA A/B ANTIGEN MAIN LAB Specimen Description NASOPHARYNGEAL SWAB MAIN LAB Special Requests NONE [facility] MAIN LAB Direct Antigen NEGATIVE FOR INFLUENZA A/B [facility] MAIN LAB Report Status FINAL MAIN LAB 08/05/2018 Specimen Nasopharyngeal Swab Performing Organization Address City/State/Zipcode Phone Number MAIN LAB [address] [place] [address] * CHEST SINGLE VIEW (08/05/2018 1:09 PM BRAILLE TEACHER) Impressions Performed At No acute cardiopulmonary abnormality. [...] Interface, Radiant Results - 08/05/2018 2:28 PM BRAILLE TEACHER Procedure: CHEST SINGLE VIEW Clinical Indication: 53-year-old [...] on 08/05/2018 1:12 PM. Performing Organization Address City/State/Zipcode Phone Number [facility] RAD RESULTS * FREE T4-FREE THYROXINE (08/05/2018 1:04 PM BRAILLE TEACHER) T4-Free 1.0 0.6 - 1.6 NG/DL [facility] MAIN LAB Performing Organization Address City/[facility] Phone Number MAIN LAB [address] [place] [address] * PROCALCITONIN (08/05/2018 1:04 PM BRAILLE TEACHER) Procalcitonin 3.63 (H) <0.10 NG/ML [facility] MAIN LAB Performing Organization Address [facility] Phone Number MAIN LAB [address] [place] [address] * TYPE & CROSSMATCH (08/05/2018 1:04 PM BRAILLE TEACHER) Units Ordered 0 MAIN LAB Crossmatch Expires 08/08/2018 MAIN LAB Record Check FOUND MAIN LAB ABO/RH(D) O POS MAIN LAB Antibody Screen NEG MAIN LAB Electronic Crossmatch YES MAIN LAB Specimen Blood Performing Organization Address [facility] Phone Number MAIN LAB [address] [place] [address] * TSH WITH FREE T4 REFLEX (08/05/2018 1:04 PM BRAILLE TEACHER) TSH 0.180 (L) 0.35 - 5.00 MCU/ML MAIN LAB Specimen Blood Performing Organization Address [facility] Phone Number MAIN LAB [address] [place] [address] * TROPONIN-I (08/05/2018 1:04 PM BRAILLE TEACHER) Troponin-I <0.01 0.0 - 0.05 NG/ML MAIN LAB Specimen Blood Performing Organization Address [facility] Phone Number MAIN LAB [address] [place] [address] * BNP (B-TYPE NATRIURETIC PEPTI) (08/05/2018 1:04 PM BRAILLE TEACHER) B Type Natriuretic 268.0 (H) 0 - 100 PG/ML MAIN LAB Peptide Specimen Blood Performing Organization Address [facility] Phone Number MAIN LAB [address] [place] [address] * PHOSPHORUS (08/05/2018 1:04 PM BRAILLE TEACHER) Phosphorus 3.0Comment: NOTE NEW REFERENCE 2.0 - 4.5 MG/DL [facility] MAIN LAB RANGES Specimen Blood Performing Organization Address [facility] Phone Number [facility] MAIN LAB [address] [place] [address] * MAGNESIUM (08/05/2018 1:04 PM BRAILLE TEACHER) Magnesium 1.5 (L) 1.6 - 2.6 mg/dL [facility] MAIN LAB Specimen Blood Performing Organization Address [facility] Phone Number [facility] MAIN LAB [address] [place] [address] * IONIZED CALCIUM (08/05/2018 1:04 PM BRAILLE TEACHER) Ionized Calcium 1.18 1.0 - 1.3 MMOL/L [facility] MAIN LAB Specimen Blood Performing Organization Address [facility] Phone Number [facility] MAIN LAB [address] [place] [address] * LACTIC ACID (BG - RAPID LACTATE) (08/05/2018 1:04 PM BRAILLE TEACHER) Lactic Acid,BG 1.0 0.5 - 2.0 MMOL/L [facility] MAIN LAB Specimen Blood Performing Organization Address [facility] Phone Number [facility] MAIN LAB [address] [place] [address] * COMPREHENSIVE METABOLIC PANEL (08/05/2018 1:04 PM BRAILLE TEACHER) Sodium 140 137 - 147 MMOL/L K[facility] [...] for questions. Specimen Blood Performing Organization Address City/[facility]/Zipcode Phone Number [facility] [address] [place] [address] * PROTIME INR (PT) (08/05/2018 1:04 PM BRAILLE TEACHER) INR 1.4 (H) 0.8 - 1.2 [facility] Specimen Blood Performing Organization Address City/[facility]/Zipcode Phone Number [facility] [address] [place] [phone] * CBC AND DIFF (08/05/2018 1:04 PM BRAILLE TEACHER) White Blood Cells 3.9 (L) 4.5 - 11.0 K/UL MAIN LAB RBC 2.59 (L) 4.0 - 5.0 M/UL [facility] MAIN LAB Hemoglobin 7.6 (L) 12.0 - 15.0 GM/DL [facility] MAIN LAB Hematocrit 22.3 (L) 36 - 45 % [facility] MAIN LAB MCV 86.0 80 - 100 FL [facility] MAIN LAB MCH 29.3 26 - 34 PG [facility] MAIN LAB [...] Basophil Count 0.00 0 - 0.20 K/UL MAIN LAB Specimen Blood Performing Organization Address City/State/Zipcode Phone Number MAIN LAB [address] [place] [address] in this encounter Visit Diagnoses Diagnosis Upper GI bleeding Hemorrhage of gastrointestinal tract, unspecified in this encounter Administered Medications Action Date Dose Rate Site Medication Order MAR Action 08/07/2018 6:16 AM BRAILLE TEACHER 325 mg acetaminophen (TYLENOL) tablet 650 mg Given 650 mg, Oral, EVERY 6 HOURS PRN, Starting Sun08/06/18 at 0231, Until Sun08/08/18 at 1556, Pain non-opioid: may be used alone or in combination with opioid analgesia, TOTAL ACETAMINOPHEN DOSE NOT TO EXCEED 4GM DAILY, 650 mg Given 08/06/2018 9:00 AM BRAILLE TEACHER 650 mg Given 08/06/2018 2:36 AM BRAILLE TEACHER 08/07/2018 3:16 PM BRAILLE TEACHER 1 lozenge benzocaine/menthol (CHLORASEPTIC) Given lozenge 1 lozenge 1 lozenge, Oral, EVERY 2 HOURS PRN, Starting Sun08/07/18 at 1509, Until Sun08/08/18 at 1556, Mouth/Throat Pain 08/08/2018 11:44 AM BRAILLE TEACHER 1 g cefTRIAXone (ROCEPHIN) IVP 1 g Given 1 g, Intravenous, EVERY 24 HOURS, 7 doses, First dose on Sun08/05/18 at 1445, Last dose on Sun08/11/18 at 1445, INSTR: IV PUSH -- RECONSTITUTE EACH 1 GM WITH 10 MLS 0.9% NACL , 1 g Given 08/07/2018 2:21 PM BRAILLE TEACHER 1 g Given 08/06/2018 2:08 PM BRAILLE TEACHER 08/08/2018 4:33 AM BRAILLE TEACHER 5 mg oxyCODONE (ROXICODONE, OXY-IR) tablet 5 Given mg 5 mg, Oral, EVERY 6 HOURS PRN, Starting Sun08/07/18 at 0944, Until Sondra 08/08/18 at 1556, Pain PO 5 mg Given 08/07/2018 10:04 PM BRAILLE TEACHER 5 mg Given 08/07/2018 10:25 AM BRAILLE TEACHER 08/08/2018 11:44 AM BRAILLE TEACHER 40 mg pantoprazole (PROTONIX) injection 40 mg Given 40 mg, Intravenous, TWICE DAILY, First dose on Sun08/05/18 at 1445, Until Discontinued 40 mg Given 08/07/2018 9:45 PM BRAILLE TEACHER 40 mg Given 08/07/2018 10:26 AM BRAILLE TEACHER 08/07/2018 9:31 AM BRAILLE TEACHER 17 g polyethylene glycol 3350 (MIRALAX) Given packet 17 g 17 g (1 packet), Oral, DAILY, First dose on Sun08/06/18 at 1745, Until Discontinued, 8.5 GRAMS=0.5 PACKET 17 GRAMS=1 PACKET 34 GRAMS=2 PACKETS, 17 g Given 08/06/2018 5:04 PM BRAILLE TEACHER 08/07/2018 9:45 PM BRAILLE TEACHER 1 tablet senna/docusate (SENOKOT-S) tablet 1 Given tablet 1 tablet, Oral, TWICE DAILY, First dose on Sun08/06/18 at 2100, Until Discontinued, Hold for loose stools, 1 tablet Given 08/07/2018 8:41 AM BRAILLE TEACHER 1 tablet Given 08/06/2018 8:48 PM BRAILLE TEACHER in this encounter
--- OUTSIDE RECORDS SUMMARY | 2018-08-15 14:34 | XMS REPORT ---
Author Author HEATHER FINE [facility] Address [address] [place] [address] Care Team Providers Care Coating Operator Name Role Phone HEATHER FINE Unavailable PROBLEMS Type Condition ICD9-CM Code TXX24-AU Code Onset Dates Condition Status SNOMED Code Problem Unspecified cirrhosis of liver K74.60 Active 609049251 Problem Lymphocytosis D72.820 Active 08245955 Problem Secondary esophageal varices with bleeding I85.11 Active 28639091 Problem Anxiety F41.9 Active 88646365 Problem Asthma J45.909 Active 941031666 Problem Chronic back pain M54.9 Active 809418132 Problem Dysthymia F34.1 Active 69352208 Problem Thrombocytosis D47.3 Active 5000838 Problem Splenomegaly R16.1 Active 53045341 Problem 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 Active 929001816 Problem History of hepatitis C Z86.19 Active [id number] ALLERGIES Substance Reaction Event Type Date Status Sulfamethoxazole-Trimethoprim Unknown Drug Allergy Jul, Active ENCOUNTERS Encounter Location Date Diagnosis [place] [id number] [place] [address] 77274- 6580 Jul, Anxiety F41.9 [facility] [id number] [place] [address] 17554- 8056 Jul, [facility] [id number] [place] [address] 41101- 8153 Jul, [facility] [id number] [place] [address] 90538- 6697 Jul, Chronic back pain M54.9 ; Anxiety F41.9 and Breast cancer screening Z12.31 [facility] [address] [place] [address] 53131- 2536 Jun, Anxiety F41.9 [facility] [id number] [place] [address] 13506- 8961 Jun, [facility] [address] 04856- 5226 May, Anxiety F41.9 [facility] [id number] [place] [address] 37621- 7690 May, Right arm pain M79.601 [facility] [address] 98021- 8085 May, Encounter for immunization Z23 [facility] [address] 18045- 3653 Apr, Anxiety F41.9 [facility] [id number] [place] [address] 72157- 8919 Apr, [facility] [address] 82980- 7487 Mar, Anxiety F41.9 [facility] [id number] [place] [address] 13520- 6145 Mar, [facility] [id number] [place] [address] 28035- 1711 Mar, Right arm pain M79.601 [facility] [id number] [place] [address] 99243- 4979 Mar, Anxiety F41.9 [facility] [id number] [place] [address] 16297- 5759 Feb, [facility] [id number] [place] [address] 40569- 8414 Feb, Chronic back pain M54.9 ; Anxiety F41.9 and Dysuria R30.0 [facility] [id number] [place] [address] 69019- 8440 Feb, [facility] [id number] [place] [address] 28088- 1995 Feb, Anxiety F41.9 [facility] [address] [address] 5710 Jan, [facility] [id number] [place] [address] 97061- 6905 Jan, Chronic back pain M54.9 and Anxiety F41.9 [facility] [id number] [place] [address] 90357- 5097 December, Chronic back pain M54.9 and Anxiety F41.9 [facility] [id number] [place] [address] 86099- 2920 Nov, Chronic back pain M54.9 and Anxiety F41.9 [facility] [id number] [place] [address] 49501- 1829 Oct, Chronic back pain M54.9 and Anxiety F41.9 [facility] [id number] [place] [address] 95430- 7096 Oct, [facility] [id number] [place] [address] 48103- 9378 Sep, Chronic back pain M54.9 ; Anxiety F41.9 ; Pain of left leg M79.605 and Pain in right leg M79.604 [facility] [address] [address]- 8024 Sep, Anxiety F41.9 and Chronic back pain M54.9 [facility] [address] [address]- 0124 Sep, [facility] [id number] [place] [address] 68762- 5791 Aug, Anxiety F41.9 [facility] [id number] [place] [address] 60681- 5609 Jul, Anxiety F41.9 [facility] [id number] [place] [address] 70381- 7611 Jul, [facility] [address] [address]- 3859 Jul, Viral syndrome B34.9 ; Chronic back pain M54.9 and Dysuria R30.0 [facility] [id number] [address]- 4786 Jun, [facility] [id number] [place] [address] 44565- 5161 Jun, Anxiety F41.9 [facility] [address] [place] [address] 77122 -8748 Jun, Dysuria R30.0 and Acute cystitis without hematuria N30.00 [facility] [id number] [place] [address] 46962- 0263 Jun, [facility] [id number] [place] [address] 73778- 8700 May, Anxiety F41.9 [facility] [id number] [place] [address] 76674- 2904 May, Anxiety F41.9 [facility] [id number] [place] [address] 89872- 2540 Apr, [facility] [id number] [place] [address] 16929- 0718 Apr, Chronic back pain M54.9 and Anxiety F41.9 [facility] [address] [place] [address] 50449- 1624 Mar, [facility] [address] [place] [address] 26783- 4868 Mar, [facility] [id number] [place] [address] 05687- 0675 Mar, Well woman exam Z01.419 ; Cervical cancer screening Z12.4 ; Breast cancer screening Z12.31 and Colon cancer screening Z12.11 [facility] [id number] [address]- 7861 Mar, Chronic back pain M54.9 and Anxiety F41.9 [facility] [id number] [place] [address] 88297- 5221 Mar, [facility] [id number] [place] [address] 77060- 0530 Feb, Chronic back pain M54.9 and Anxiety F41.9 [facility] [id number] [place] [address] 38389- 4515 Feb, [facility] [id number] [place] [address] 10969- 3634 Feb, [facility] [id number] [place] [address] 60737- 2409 Jan, Chronic back pain M54.9 and Anxiety F41.9 [facility] [id number] [place] [address] 87867- 1324 Jan, [facility] [id number] [place] [address] 56520- 2482 Jan, [facility] [id number] [place] [address] 35350- 7759 December, Chronic back pain M54.9 and Anxiety F41.9 [facility] [address] [place] [address] 46150- 0787 Nov, Chronic back pain M54.9 and Anxiety F41.9 [facility] [address] [address]- 4814 Oct, Chronic back pain M54.9 and Anxiety F41.9 [facility] [id number] [place] [address] 00592- 2586 Oct, Chronic back pain M54.9 [facility] [address] [address]- 3258 Sep, Anxiety F41.9 and Chronic back pain M54.9 [facility] [id number] [place] [address] 39751- 8157 Aug, Anxiety F41.9 and Chronic back pain M54.9 [facility] [id number] [place] [address] 20672- 8954 Aug, [facility] [id number] [place] [address] 59337- 4634 Jul, Chronic back pain M54.9 and Anxiety F41.9 [facility] [id number] [place] [address] 88418- 6920 Jul, Anxiety F41.9 and Chronic back pain M54.9 [facility] [address] [place] [address] Jul, [facility] [id number] [place] [address] 89946- 5754 Jul, Anxiety F41.9 [facility] [id number] [place] [address] 36067- 8921 Jul, Anxiety F41.9 and Dysuria R30.0 [facility] [address] 03664- 2676 Jul, Chronic back pain M54.9 and Anxiety F41.9 [facility] [id number] [place] [address] 53068- 7061 Jun, Chronic back pain M54.9 [facility] [id number] [place] [address] 53621- 6603 Jun, Chronic back pain M54.9 [facility] [id number] [place] [address] 69457- 0858 May, Anxiety F41.9 [facility] [id number] [place] [address] 48213- 4120 May, Chronic back pain M54.9 [facility] [address] 75302- 1891 29 Apr, 2016 [facility] [address] [place] [address] 89810- 9857 29 Apr, 2016 [facility] [id number] [place] [address] 28249- 4686 Apr, [facility] [id number] [place] [address] 49252- 6086 Apr, Chronic back pain M54.9 [facility] [id number] [place] [address] 37403- 9301 Mar, Chronic back pain M54.9 [facility] [id number] [place] [address] 28704- 3844 Feb, Grief F43.20 [facility] [id number] [place] [address] 31528- 6750 Feb, Chronic back pain M54.9 and Anxiety F41.9 [facility] [id number] [place] [address] 80345- 0033 Feb, Chronic back pain M54.9 [facility] [id number] [place] [address] 16461- 9878 Jan, Chronic back pain M54.9 [facility] [id number] [place] [address] 05907- 8795 December, [facility] [id number] [place] [address] 82842- 7670 December, Grief F43.20 [facility] [id number] [place] [address] 61229- 9293 Nov, [facility] [id number] [place] [address] 82137- 5158 28 Oct, 2015 Cervicalgia M54.2 ; Secondary esophageal varices with bleeding I85.11 and Mouth pain K13.79 [facility] [id number] [place] [address] 44819- 9896 Oct, [facility] [address] [address]- 6821 Oct, [facility] [id number] [place] [address] 53379- 7252 Sep, [facility] [id number] [place] [address] 69871- 8582 Sep, Acute maxillary sinusitis, recurrence not specified J01.00 [facility] [id number] [place] [address] 07955- 0987 Aug, [facility] [id number] [place] [address] 53796- 7468 Aug, [facility] [id number] [place] [address] 56902- 0771 Aug, Dysuria R30.0 and Chronic back pain M54.9 [facility] [id number] [place] [address] 99278- 3378 Jul, [facility] [id number] [place] [address] 76942- 8993 Jul, [facility] [id number] [place] [address] 87297- 0274 Jul, [facility] [id number] [place] [address] 59460- 6390 Jul, Chronic back pain M54.9 [facility] [address] [place] [address] 156707- 5045 Jul, Dysthymia F34.1 and Chronic back pain M54.9 [facility] [id number] [place] [address] 63298- 7284 Jun, [facility] [id number] [place] [address] 072781- 2696 Jun, [facility] [id number] [place] [address] 813233- 8343 May, [facility] [address] [facility] [id number] [address]- 6990 May, [facility] [id number] [place] [address] 38479- 1857 May, [facility] [id number] [place] [address] 84185- 4655 May, Encounter for immunization Z23 [facility] [address] [facility] [id number] [place] [address] 30772- 4201 15 Apr, 2015 [facility] [id number] [place] [address] 71518- 8354 Apr, [facility] [id number] [place] [address] 38789- 0232 Mar, [facility] [id number] [place] [address] 10897- 1217 Mar, Back pain 724.5 [facility] [id number] [place] [address] 56439- 1900 Mar, Cough 786.2 and Back pain 724.5 [facility] [id number] [place] [address] 09846- 0547 Mar, [facility] [address] [place] [address] 22946- 7453 Mar, [facility] [address] [place] [address] 10822- 8402 December, [facility] [id number] [place] [address] 64809- 3052 December, [facility] [id number] [place] [address] 87982- 8574 14 Nov, 2014 [facility] [address] [facility] [id number], [place] [address]- 5192 Nov, [facility] [address] [place] [address] 88726- 8346 Oct, [facility] [place] [facility] [address] [id number] [place] [address]- 5406 Oct, [facility] [place] [facility] [address] [id number] [place] [address]- 6888 Sep, [facility] [place] [facility] [address] [id number] [place] [address]- 3671 Sep, [facility] [place] [facility] [address] [id number] [place] [address]- 5703 Sep, [facility] [place] [facility] [address] [id number] [place] [address]- 0738 Sep, [facility] [place] [facility] [address] [id number] [place] [address]- 9574 Sep, [facility] [place] [facility] [address] [id number] [place] [address]- 8204 Sep, [facility] [place] [facility] [address] [id number] [place] [address]- 4376 Sep, [facility] [place] [facility] [address] [id number] [place] [address]- 4856 Sep, [facility] [place] [facility] [address] [id number] [place] [address]- 2972 Aug, [facility] [place] [facility] [address] [id number] [place] [address]- 5354 Aug, [facility] [place] [facility] [address] [id number] [place] [address]- 6767 Aug, [facility] [place] [facility] [address] [id number] [place] [address]- 5605 Aug, [facility] [place] [facility] [address] [id number] [place] [address]- 1886 Aug, [facility] [place] [facility] [address] [facility] [id number] [place] [address]- 1833 Aug, [facility] [place] [facility] [address] [id number] [place] [address]- 4887 Aug, [facility] [address] [id number] [place] [address]- 8862 Jul, [facility] [place] [facility] [address] [id number] [place] [address]- 7270 Jul, [facility] [address] [id number] [place] [address]- 3882 Jul, [facility] [place] [facility] [address] [id number] [place] [address]- 3329 Jul, [facility] [address] [id number] [place] [address]- 0807 Jul, [facility] [place] [facility] [address] [id number] [place] [address]- 7510 Jul, [facility] [place] [facility] [address] [id number] [place] [address]- 5549 Jul, [facility] [address] [id number] [place] [address]- 1123 Jul, [facility] [place] [facility] [address] [id number] [place] [address]- 8613 Jun, [facility] [address] [id number] [place] [address]- 4901 Jun, [facility] [place] [facility] [address] [id number] [place] [address]- 2841 Jun, [facility] [place] [facility] [address] [id number] [place] [address]- 1127 Jun, [facility] [place] [facility] [address] [id number] [place] 9640 Jun, [facility] [place] [facility] [address] [id number] [place] [address]- 6838 Jun, [facility] [place] [facility] [address] [id number] [place] 8927 Jun, [facility] [place] [facility] [address] [id number] [place] [address]- 8022 May, [facility] [place] [facility] [address] [id number] [place] [address]- 6107 May, [facility] [place] [facility] [address] [id number] [place] [address]- 6850 May, [facility] [place] [facility] [address] [id number] [place] [address]- 6892 May, [facility] [place] [facility] [address] [id number] [place] [address]- 0283 May, [facility] [place] [facility] [address] [id number] [place] [address]- 9275 May, [facility] [place] [facility] [address] [id number] [place] [address]- 2068 May, [facility] [place] [facility] [address] [id number] [place] [address]- 7867 May, [facility] [place] [facility] [address] [id number] [place] [address]- 4168 May, [facility] [place] [facility] [address] [id number], [place] [address]- 9913 May, [facility] [place] [facility] [address] [id number], [place] [address]- 9668 10 May, 2014 [facility] [place] [facility] [address] [id number], [place] [address]- 6945 10 May, 2014 [facility] [place] [facility] [address] [id number] [place] [address]- 0937 May, [facility] [place] [facility] [address] [id number] [place] [address]- 2716 08 May, 2014 [facility] [place] [facility] [address] [id number][place]- 7628 26 Apr, 2014 [facility] [place] [facility] [address] [id number], [place] [address]- 3973 Apr, [facility] [place] [facility] [address] [id number] [place] [address]- 6674 Apr, [facility] [place] [facility] [address] [id number] [place] [address]- 5306 Apr, [facility] [place] [facility] [address] [id number] [place] [address]- 4463 Apr, [facility] [place] [facility] [address] [id number] [place] [address]- 5216 Apr, [facility] [place] [facility] [address] [id number] [place] [address]- 4015 Apr, [facility] [place] [facility] [address] [id number] [place] [address]- 8479 Mar, [facility] [place] [facility] [address] [id number] [place] [address]- 0187 Mar, [facility] [place] [facility] [address] [id number] [place] [address]- 0106 Mar, [facility] [place] [facility] [address] [id number] [place] [address]- 6406 Mar, [facility] [place] [facility] [address] [id number] [place] [address]- 6010 Mar, [facility] [place] [facility] [address] [id number] [place] [address]- 9059 Mar, [facility] [place] [facility] [address] [id number] [place] [address]- 5899 Feb, [facility] [place] [facility] [address] [id number] [place] [address]- 4007 Feb, [facility] [place] [facility] [address] [id number] [place] [address]- 0021 Feb, [facility] [place] [facility] [address] [id number] [place] [address]- 5238 Feb, [facility] [place] [facility] [address] [id number] [place] [address]- 6826 Feb, [facility] [place] [facility] [address] [id number] [place] [address]- 7999 Feb, [facility] [place] [facility] [address] [id number] [place] [address]- 9688 Feb, [facility] [place] [facility] [address] [id number] [place] [address]- 7134 Feb, [facility] [place] [facility] [address] [id number] [place] [address]- 9340 Jan, [facility] [place] [facility] [address] [id number] [place] [address] Jan, [facility] [place] [facility] [address] [id number] [place] [address] December, [facility] [place] [facility] [address] [id number] [place] [address] December, [facility] [place] [facility] [address] [id number] [place] [address] December, [facility] [place] [facility] [address] [id number] [place] [address] December, [facility] [place] [facility] [address] [id number] [place] [address] December, [facility] [place] [facility] [address] [id number] [place] [address] December, [facility] [place] [facility] [address] [id number] [place] [address] December, [facility] [place] [facility] [address] [id number] [place] [address] December, [facility] [place] [facility] [address] [id number] [place] [address] December, [facility] [place] [facility] [address] [id number] [place] [address] December, [facility] [place] [facility] [address] [id number] [place] [address] December, [facility] [place] [facility] [address] [id number] [place] [address] December, [facility] [place] [facility] [address] [id number] [place] [address] Nov, [facility] [place] [facility] [address] [id number] [place] [address] Nov, [facility] [place] [facility] [address] [id number] [place] [address] Nov, [facility] [place] [facility] [address] [id number] [place] [address] Nov, [facility] [place] [facility] [address] [id number] [place] [address] Nov, [facility] [place] [facility] [address] [id number] [place] [address] Nov, [facility] [place] [facility] [address] [id number] [place] [address] Nov, [facility] [place] [facility] [address] [id number] [place] [address] Nov, [facility] [place] [facility] [address] [id number] [place] [address] Nov, [facility] [place] [facility] [address] [id number] [place] [address] Nov, [facility] [place] [facility] [address] [id number] [place] [address] Nov, [facility] [place] [facility] [address] [id number] [place] [address] Nov, [facility] [place] [facility] [address] [id number] [place] [address] Nov, [facility] [place] [facility] [address] [id number] [place] [address] Oct, [facility] [place] [facility] [address] [id number] [place] [address] Oct, [facility] [place] [facility] [address] [id number] [place] [address] Sep, [facility] [place] [facility] [address] [facility] [id number] [place] [address] Sep, [facility] [place] [facility] [address] [id number] [place] [address] Sep, [facility] [place] [facility] [address] [id number] [place] [address] Sep, [facility] [place] [facility] [address] [facility] [id number] [place] [address] Sep, [facility] [place] [facility] [address] [id number] [place] [address] Sep, [facility] [place] [facility] [address] [facility] [id number] [place] [address] Sep, [facility] [place] [facility] [address] [facility] [id number] [place] [address] Sep, [facility] [place] [facility] [address] [id number] [place] [address] Sep, [facility] [place] [facility] [address] [facility] [id number] [place] [address] Sep, [facility] [place] [facility] [address] [facility] [id number] [place] [address] Sep, [facility] [place] [facility] [address] [address] [facility] [id number] [place] [address] Sep, [facility] [place] [facility] [address] [facility] [id number] [place] [address] Aug, [facility] [place] [facility] [address] [facility] [id number] [place] [address] 9653 Aug, [facility] [place] [facility] [address] [id number] [place] [address] Aug, [facility] [place] [facility] [address] [id number] [place] [address] 5135 Aug, [facility] [place] [facility] [address] [id number] [place] [address] 3353 Aug, [facility] [place] [facility] [address] [id number] [place] [address] 2043 Aug, [facility] [place] [facility] [address] [id number] [place] [address]- 7902 Aug, [facility] [place] [facility] [address] [id number] [place] [address]- 7726 Aug, [facility] [place] [facility] [address] [id number] [place] [address] 6112 Aug, [facility] [place] [facility] [address] [id number] [place] [address]- 0850 Aug, [facility] [place] [facility] [address] [id number] [place] [address]- 7884 Aug, [facility] [place] [facility] [address] [id number] [place] [address]- 7501 Aug, [facility] [place] [facility] [address] [id number] [place] [address]- 9426 Aug, [facility] [place] [facility] [address] [id number] [place] [address]- 0090 Aug, [facility] [place] [facility] [address] [id number] [place] [address]- 1139 Aug, [facility] [place] [facility] [address] [id number] [place] [address]- 1227 Aug, [facility] [place] [facility] [address] [id number] [place] [address]- 8011 Aug, [facility] [place] [facility] [address] [id number] [place] [address]- 3657 Aug, [facility] [address] [id number] [place] [address] 1632 Aug, [facility] [address] [id number] [place] [address] 0678 Aug, [facility] [address] [id number] [place] [address]- 7320 Aug, [facility] [address] [id number] [place] [address]- 3656 Aug, [facility] [address] [id number] [place] [address]- 1047 Aug, [facility] [address] [id number] [place] [address]- 3852 Jul, [facility] [address] [id number] [place] [address]- 0887 Jul, [facility] [address] [id number] [place] [address]- 4894 Jul, [facility] [address] [id number] [place] [address]- 0732 Jul, [facility] [address] [id number] [place] [address]- 5846 Jul, [facility] [address] [id number] [place] [address]- 3785 Jul, [facility] [address] [id number] [place] [address]- 8187 Jun, [facility] [address] [id number] [place] [address]- 1105 Jun, [facility] [address] [id number] [place] [address]- 3929 Jun, [facility] [address] [id number] [place] [address]- 0194 Jun, [facility] [place] [facility] [address] [id number] [place] [address]- 1450 Jun, [facility] [place] [facility] [address] [id number] [place] [address]- 4729 Jun, [facility] [place] [facility] [address] [id number] [place] [address]- 9092 Jun, [facility] [place] [facility] [address] [id number] [place] [address]- 4347 Jun, [facility] [place] [facility] [address] [id number] [place] [address]- 3300 Jun, [facility] [place] [facility] [address] [id number] [place] [address]- 4368 Jun, [facility] [place] [facility] [address] [id number] [place] [address]- 6895 May, [facility] [place] [facility] [address] [id number], [place] [address]- 3766 May, [facility] [place] [facility] [address] [id number] [place] [address]- 9609 May, [facility] [place] [facility] [address] [id number], [place] [address]- 6307 May, [facility] [place] [facility] [address] [id number], [place] [address]- 2325 May, [facility] [place] [facility] [address] [id number], [place] [address]- 6666 May, [facility] [place] [facility] [address] [id number], [place] [address]- 2634 May, [facility] [place] [facility] [address] [id number], [place] [address]- 0895 May, [facility] [place] [facility] [address] [id number], [place] [address]- 1093 May, [facility] [place] [facility] [address] [id number], [place] [address]- 2198 May, [facility] [place] [facility] [address] [id number] [place] [address]- 7892 17 May, 2013 [facility] [place] [facility] [address] [id number] [place] [address]- 7523 16 May, 2013 [facility] [place] [facility] [address] [id number] [place] [address]- 2919 May, [facility] [place] [facility] [address] [id number] [place] [address]- 0746 16 May, 2013 [facility] [place] [facility] [address] [id number] [place] [address]- 4835 May, [facility] [place] [facility] [address] [id number] [place] [address]- 1574 24 Apr, 2013 [facility] [place] [facility] [address] [id number] [place] [address]- 5009 Apr, [facility] [place] [facility] [address] [id number] [place] [address]- 4274 Apr, [facility] [place] [facility] [address] [id number] [place] [address]- 2664 Mar, [facility] [place] [facility] [address] [id number] [place] [address]- 5104 Mar, [facility] [place] [facility] [address] [id number] [place] [address]- 8394 Mar, [facility] [place] [facility] [address] [id number] [place] [address]- 9148 Mar, [facility] [place] [facility] [address] [id number] [place] [address]- 6970 Mar, [facility] [place] [facility] [address] [id number] [place] [address]- 8679 Mar, [facility] [place] [facility] [address] [id number] [place] [address]- 9070 Feb, [facility] [place] [facility] [address] [id number] [place] [address]- 8896 Feb, [facility] [place] [facility] [address] [id number] [place] [address]- 9081 Feb, [facility] [place] [facility] [address] [id number] [place] [address]- 5436 Feb, [facility] [place] [facility] [address] [id number] [place] [address]- 6421 Feb, [facility] [place] [facility] [address] [id number] [place] [address]- 7638 Feb, [facility] [place] [facility] [address] [id number] [place] [address]- 7795 Feb, [facility] [place] [facility] [address] [id number] [place] [address]- 6614 Feb, [facility] [place] [facility] [address] [id number] [place] [address]- 9355 Feb, [facility] [place] [facility] [address] [id number] [place] [address]- 6857 Feb, [facility] [place] [facility] [address] [id number] [place] [address]- 8490 Jan, [facility] [place] [facility] [address] [id number] [place] [address]- 4576 Jan, [facility] [place] [facility] [address] [id number] [place] [address]- 8052 Jan, [facility] [place] [facility] [address] [id number] [place] [address]- 5862 Jan, [facility] [place] [facility] [address] [id number] [place] [address]- 1026 December, [facility] [place] [facility] [address] [id number] [place] [address]- 2526 December, [facility] [place] [facility] [address] [id number] [place] [address]- 9096 December, [facility] [address] [id number] [place] [address]- 7721 Nov, [facility] [place] [facility] [address] [id number] [place] [address]- 3280 Nov, [facility] [place] [facility] [address] [id number] [place] [address]- 7975 Nov, [facility] [place] [facility] [address] [id number] [place] [address]- 8114 Nov, [facility] [place] [facility] [address] [id number] [place] [address]- 8085 Nov, [facility] [place] [facility] [address] [id number] [place] [address]- 4229 Nov, [facility] [place] [facility] [address] [id number] [place] [address]- 3056 Oct, [facility] [place] [facility] [address] [id number] [place] [address]- 2376 Oct, [facility] [place] [facility] [address] [id number] [place] [address]- 1075 Oct, [facility] [place] [facility] [address] [id number] [place] [address]- 2915 Sep, [facility] [place] [facility] [address] [id number] [place] [address]- 0564 Sep, [facility] [place] [facility] [address] [id number] [place] [address]- 9462 Sep, [facility] [place] [facility] [address] [id number] [place] [address]- 6725 Aug, [facility] [place] [facility] [address] [id number] [place] [address]- 3092 Aug, [facility] [place] [facility] [address] [id number] [place] [address]- 9451 Aug, [facility] [place] [facility] [address] [id number] [place] [address]- 5561 Aug, [facility] [address] [id number] [place] [address]- 3396 Jul, [facility] [place] [facility] [address] [id number] [place] [address] Jul, [facility] [address] [id number] [place] [address]- 2459 Jul, [facility] [place] [facility] [address] [id number] [place] [address]- 5074 Jul, [facility] [place] [facility] [address] [id number] [place] [address], [place] [address]- 6690 Jun, [facility] [place] [facility] [address] [id number] [place] [address]- 6443 Jun, [facility] [place] [facility] [address] [facility] [id number] [place] [address]- 4802 Jun, [facility] [place] [facility] [address] [id number] [place] [address]- 1339 Jun, [facility] [place] [facility] [address] [facility] [id number] [place] [address]- 8880 Jun, [facility] [place] [facility] [address] [facility] [id number] [place] [address]- 7620 Jun, [facility] [place] [facility] [address] [id number] [place] [address]- 4500 Jun, [facility] [place] [facility] [address] [facility] [id number] [place] [address]- 4646 Jun, [facility] [place] [facility] [address] [id number] [place] [address]- 4831 May, [facility] [place] [facility] [address] [facility] [id number] [place] [address]- 9210 May, [facility] [place] [facility] [address] [id number] [place] [address]- 2953 May, [facility] [place] [facility] [address] [id number] [place] [address]- 3769 18 May, 2012 [facility] [place] [facility] [address] [id number] [place] [address]- 4918 2012 [facility] [place] [facility] [address] [id number] [place] [address]- 1230 13 May, 2012 [facility] [place] [facility] [address] [id number] [place] [address]- 5831 11 May, 2012 [facility] [place] [facility] [address] [id number] [place] [address]- 1626 11 May, 2012 [facility] [place] [facility] [address] [id number] [place] [address]- 1224 10 May, 2012 [facility] [place] [facility] [address] [id number] [place] [address]- 6435 08 May, 2012 [facility] [place] [facility] [address] [id number] [place] [address]- 8177 24 Apr, 2012 [facility] [place] [facility] [address] [id number] [place] [address]- 5312 19 Apr, 2012 [facility] [place] [facility] [address] [id number] [place] [address]- 5687 18 Apr, 2012 [facility] [place] [facility] [address] [id number] [place] [address]- 5884 17 Apr, 2012 [facility] [place] [facility] [address] [id number], [place] [address]- 3454 16 Apr, 2012 [facility] [place] [facility] [address] [id number] [place] [address]- 2787 10 Apr, 2012 [facility] [place] [facility] [address] [id number] [place] [address]- 7713 29 Mar, 2012 [facility] [place] [facility] [address] [id number] [place] [address]- 1558 27 Mar, 2012 [facility] [place] [facility] [address] [id number], [place] [address]- 7522 Mar, [facility] [place] [facility] [address] [id number] [place] [address]- 4316 Mar, [facility] [place] [facility] [address] [id number] [place] [address]- 1009 Mar, [facility] [place] [facility] [address] [id number] [place] [address]- 0290 Mar, [facility] [place] [facility] [address] [id number] [place] [address]- 4922 Feb, [facility] [place] [facility] [address] [id number] [place] [address]- 1349 Feb, [facility] [place] [facility] [address] [id number] [place] [address]- 1105 Feb, [facility] [place] [facility] [address] [id number] [place] [address]- 5630 Feb, [facility] [place] [facility] [address] [id number] [place] [address]- 9031 Feb, [facility] [place] [facility] [address] [id number] [place] [address]- 5415 Feb, [facility] [place] [facility] [address] [id number] [place] [address]- 5285 Feb, [facility] [place] [facility] [address] [id number] [place] [address]- 8902 Feb, [facility] [place] [facility] [address] [id number] [place] [address]- 0160 Feb, [facility] [place] [facility] [address] [id number] [place] [address]- 0369 Jan, [facility] [place] [facility] [address] [id number] [place] [address]- 0187 Jan, [facility] [place] [facility] [address] [id number] [place] [address]- 9612 Jan, [facility] [place] [facility] [address] [id number] [place] [address]- 1906 Jan, [facility] [address] [id number] [place] [address]- 9846 Jan, [facility] [place] [facility] [address] [id number] [place] [address]- 1476 Jan, [facility] [address] [id number] [place] [address]- 9575 Jan, [facility] [place] [facility] [address] [id number] [place] [address]- 2049 Jan, [facility] [place] [facility] [address] [id number] [place] [address]- 7937 Jan, [facility] [place] [facility] [address] [id number] [place] [address]- 3082 December, [facility] [address] [id number] [place] [address]- 3182 December, [facility] [address] [id number] [place] [address]- 9587 December, [facility] [address] [id number] [place] [address]- 9341 December, [facility] [address] [id number] [place] [address]- 3268 December, [facility] [place] [facility] [address] [id number] [place] [address]- 5219 December, [facility] [place] [facility] [address] [id number] [place] [address]- 7716 December, [facility] [place] [facility] [address] [id number] [place] [address]- 5226 December, [facility] [place] [facility] [address] [id number] [place] [address]- 5586 December, [facility] [place] [facility] [address] [id number] [place] [address]- 5332 December, [facility] [address] [id number] [place] [address]- 8623 30 Nov, 2011 [facility] [place] [facility] [address] [id number] [place] [address]- 5179 Nov, [facility] [place] [facility] [address] [id number] [place] [address]- 8896 Nov, [facility] [place] [facility] [address] [id number] [place] [address]- 8166 Nov, [facility] [place] [facility] [address] [id number] [place] [address]- 2944 16 Nov, 2011 [facility] [place] [facility] [address] [id number] [place] [address]- 5775 Nov, [facility] [place] [facility] [address] [id number] [place] [address]- 4699 Nov, [facility] [place] [facility] [address] [id number] [place] [address]- 3140 Nov, [facility] [place] [facility] [address] [id number] [place] [address]- 7310 Nov, [facility] [place] [facility] [address] [id number] [place] [address]- 2412 Nov, [facility] [place] [facility] [address] [id number] [place] [address]- 5295 Oct, [facility] [place] [facility] [address] [id number] [place] [address]- 3577 Oct, [facility] [place] [facility] [address] [id number] [place] [address]- 9330 Oct, [facility] [place] [facility] [address] [id number] [place] [address]- 2568 Oct, [facility] [place] [facility] [address] [id number] [place] [address]- 1767 Oct, [facility] [place] [facility] [address] [id number] [place] [address]- 8277 20 Oct, 2011 [facility] [place] [facility] [address] [id number] [place] [address]- 7896 19 Oct, 2011 [facility] [place] [facility] [address] [id number] [place] [address]- 6026 19 Oct, 2011 [facility] [place] [facility] [address] [id number] [place] [address]- 4546 16 Oct, 2011 [facility] [place] [facility] [address] [id number] [place] [address]- 1966 14 Oct, 2011 [facility] [place] [facility] [address] [id number] [place] [address]- 8116 14 Oct, 2011 [facility] [place] [facility] [address] [id number] [place] [address]- 5236 09 Oct, 2011 [facility] [place] [facility] [address] [id number] [place] [address]- 4283 08 Oct, 2011 [facility] [place] [facility] [address] [id number] [place] [address]- 7245 06 Oct, 2011 [facility] [place] [facility] [address] [id number] [place] [address]- 1432 02 Oct, 2011 [facility] [place] [facility] [address] [facility] [id number] [place] [address]- 1050 28 Sep, 2011 [facility] [place] [facility] [address] [id number] [place] [address]- 7576 24 Sep, 2011 [facility] [place] [facility] [address] [id number] [place] [address]- 2288 20 Sep, 2011 [facility] [place] [facility] [address] [id number] [place] [address]- 5256 17 Sep, 2011 [facility] [place] [facility] [address] [id number] [place] [address]- 1436 16 Sep, 2011 [facility] [place] [facility] [address] [id number] [place] [address]- 3690 14 Sep, 2011 [facility] [address] [id number] [place] [address] 13 Sep, 2011 [facility] [place] [facility] [address] [id number] [place] [address] 10 Sep, 2011 [facility] [place] [facility] [address] [id number] [place] [address] 06 Sep, 2011 [facility] [place] [facility] [address] [id number] [place] [address] 03 Sep, 2011 [facility] [place] [facility] [address] [id number] [place] [address] Sep, [facility] [place] [facility] [address] [id number] [place] [address] 30 Aug, 2011 [facility] [place] [facility] [address] [id number] [place] [address] Aug, [facility] [place] [facility] [address] [id number] [place] [address] Aug, [facility] [place] [facility] [address] [id number] [place] [address] 24 Aug, 2011 [facility] [place] [facility] [address] [id number] [place] [address] Aug, [facility] [place] [facility] [address] [id number] [place] [address]88 17 Aug, 2011 [facility] [place] [facility] [address] [id number] [place] [address] 7546 17 Aug, 2011 [facility] [place] [facility] [address] [id number] [place] [address] 17 Aug, 2011 [facility] [place] [facility] [address] [id number] [place] [address] 2696 16 Aug, 2011 [facility] [place] [facility] [address] [id number] [place] [address] 13 Aug, 2011 [facility] [place] [facility] [address] [id number] [place] [address] 59[address] 11 Aug, 2011 [facility] [address] [id number] [place] [address] Aug, [facility] [address] [id number] [place] [address] Aug, [facility] [address] [id number] [place] [address] Aug, [facility] [address] [id number] [place] [address] Aug, [facility] [address] [id number] [place] [address] 7927 Aug, [facility] [address] [id number] [place] [address] Aug, [facility] [address] [id number] [place] [address] 30 Jul, 2011 [facility] [address] [id number] [place] [address] 28 Jul, 2011 [facility] [address] [id number] [place] [address] 9767 27 Jul, 2011 [facility] [address] [id number] [place] [address]272 23 Jul, 2011 [facility] [address] [id number] [place] [address] 19 Jul, 2011 [facility] [address] [id number] [place] [address] 19 Jul, 2011 [facility] [place] [facility] [address] [id number] [place] [address] 29[address] 17 Jul, 2011 [facility] [place] [facility] [address] [id number] [place] [address] 29[address] 16 Jul, 2011 [facility] [address] [id number] [place] [address] Jul, [facility] [address] [facility] [id number], [place] [address] Jul, [facility] [address] [facility] [id number], [place] [address] Jul, [facility] [address] [facility] [id number], [place] [address] Jun, [facility] [address] [facility] [id number], [place] [address] Jun, [facility] [address] [facility] [id number], [place] [address] Jun, IMMUNIZATIONS No Known Immunizations SOCIAL HISTORY Never Assessed REASON FOR VISIT f/u pain management, Pt states she goes to in October to see Doctor about liver SILVIA Isaac PLAN OF CARE Activity Details Follow Up 3 Months Reason:pain mgmt Pending Test Mammogram, Bilateral Screening VITAL SIGNS Height 61 in 2018-07-29 Weight 102.1 lbs 2018-07-29 Temperature 97.9 degrees Fahrenheit 2018-07-29 Heart Rate 66 bpm 2018-07-29 Respiratory Rate 18 2018-07-29 BMI 19.29 kg/m2 2018-07-29 Blood pressure systolic 102 mmHg 2018-07-29 Blood pressure diastolic 64 mmHg 2018-07-29 MEDICATIONS Medication Instructions Dosage Frequency Start Date End Date Duration Status Nadolol 20 mg Orally Once a day 1 tablet 24h 30 days Active Ativan 0.5 MG Orally Once a day 1 tablet as needed 24h December, 28 days Active Aldactone 50 MG Orally Once a day 1 tablet 24h 180 days Active Oxycodone HCl 5 MG Orally Once a day 1 tablet at bedtime 24h Jun, 28 days Active Aciphex 20 MG Orally Once a day 1 tablet 24h 30 days Active Ibuprofen 800 MG Orally 3 times a day 1 tablet with food or milk as needed 8h Mar, 30 days Active Folic Acid 1 MG [...]
--- OUTSIDE RECORDS SUMMARY | 2018-08-15 15:07 | XMS REPORT | Continuity of Care Document ---
Author Author [facility] Address Unknown Phone Unavailable Allergies Active Description Code Type Severity Reaction Onset Reported/Identified Relationship to Patient Clinical Status Yes Sulfa (Sulfonamide Antibiotics) Drug Allergy N/A N/A 10/31/2010 Yes sulfa drug Drug Allergy 10/31/2010 Yes Sulfa (Sulfonamide Antibiotics) [id number] Drug Allergy Moderate HIVES Medications There is [...] DO, MIKE K 785.1 PALPITATIONS 10/31/2010 RODY TAR POT WORKER, HEATHER S 285.9 ANEMIA UNSPECIFIED 10/31/2010 RODY TAR POT WORKER, HEATHER S 780.79 fatigue 10/31/2010 RODY TAR POT WORKER, HEATHER S 785.1 PALPITATIONS 10/31/2010 WHITE DDS, MERCEDES D 285.9 ANEMIA UNSPECIFIED 10/31/2010 WHITE DDS, MERCEDES D 780.79 fatigue 10/31/2010 WHITE DDS, MERCEDES D 785.1 PALPITATIONS 10/31/2010 RODY TAR POT WORKER, HEATHER S 285.9 ANEMIA UNSPECIFIED 10/31/2010 RODY TAR POT WORKER, HEATHER S 780.79 fatigue 10/31/2010 RODY TAR POT WORKER, HEATHER S 785.1 PALPITATIONS 10/31/2010 RODY TAR POT WORKER, HEATHER S 285.9 ANEMIA UNSPECIFIED 10/31/2010 RODY TAR POT WORKER, HEATHER S 780.79 fatigue 10/31/2010 RODY TAR POT WORKER, HEATHER S 785.1 PALPITATIONS 10/31/2010 RODY TAR POT WORKER, HEATHER S 285.9 ANEMIA UNSPECIFIED 10/31/2010 RODY TAR POT WORKER, HEATHER S 780.79 fatigue 10/31/2010 RODY TAR POT WORKER, HEATHER S 785.1 PALPITATIONS 10/31/2010 RODY TAR POT WORKER, HEATHER S 285.9 ANEMIA UNSPECIFIED 10/31/2010 RODY TAR POT WORKER, HEATHER S 780.79 fatigue 10/31/2010 RODY TAR POT WORKER, HEATHER S 785.1 PALPITATIONS 10/31/2010 RODY TAR POT WORKER, HEATHER S 285.9 ANEMIA UNSPECIFIED 10/31/2010 RODY TAR POT WORKER, HEATHER S 780.79 fatigue 10/31/2010 RODY TAR POT WORKER, HEATHER S 785.1 PALPITATIONS 10/31/2010 RODY TAR POT WORKER, HEATHER S 285.9 ANEMIA UNSPECIFIED 10/31/2010 RODY TAR POT WORKER, HEATHER S 780.79 fatigue 10/31/2010 RODY TAR POT WORKER, HEATHER S 785.1 PALPITATIONS 10/31/2010 DEMOND TAR POT WORKER, TRAM A 285.9 ANEMIA UNSPECIFIED 10/31/2010 DEMOND TAR POT WORKER, TRAM A 780.79 fatigue 10/31/2010 DEMODN TAR POT WORKER, TRAM A 785.1 PALPITATIONS 10/31/2010 AGUILAR DO, MIKE K 285.9 ANEMIA UNSPECIFIED 10/31/2010 AGUILAR DO, MIKE K 780.79 fatigue 10/31/2010 AGUILAR DO, MIKE K 785.1 PALPITATIONS 10/31/2010 RODY TAR POT WORKER, HEATHER S 285.9 ANEMIA UNSPECIFIED 10/31/2010 RDOY TAR POT WORKER, HEATHER S 780.79 fatigue 10/31/2010 RODY TAR POT WORKER, HEATHER S 785.1 PALPITATIONS 10/31/2010 RODY TAR POT WORKER, HEATHER S 285.9 ANEMIA UNSPECIFIED 10/31/2010 RODY TAR POT WORKER, HEATHER S 780.79 fatigue 10/31/2010 RODY TAR POT WORKER, HEATHER S 785.1 PALPITATIONS 10/31/2010 RODY TAR POT WORKER, HEATHER S 285.9 ANEMIA UNSPECIFIED 10/31/2010 RODY TAR POT WORKER, HEATHER S 780.79 fatigue 10/31/2010 RODY TAR POT WORKER, HEATHER S 785.1 PALPITATIONS 10/31/2010 RODY TAR POT WORKER, HEATHER S 285.9 ANEMIA UNSPECIFIED 10/31/2010 RODY TAR POT WORKER, HEATHER S 780.79 fatigue 10/31/2010 RODY TAR POT WORKER, HEATHER S 785.1 PALPITATIONS 10/31/2010 RODY TAR POT WORKER, HEATHER S 285.9 ANEMIA UNSPECIFIED 10/31/2010 RODY TAR POT WORKER, HEATHER S 780.79 FATIGUE 10/31/2010 RODY TAR POT WORKER, HEATHER S 785.1 PALPITATIONS 11/03/2010 Ot 263.9 [...] CIRRHOSIS OF LIVER WITHOUT ALCOHOL 11/08/2010 DEMOND TAR POT WORKER, TRAM A 571.5 CIRRHOSIS OF LIVER WITHOUT ALCOHOL 11/08/2010 AGUILAR DO, MIKE K 571.5 CIRRHOSIS OF LIVER WITHOUT ALCOHOL 11/08/2010 RODY TAR POT WORKER, HEATHER S 571.5 CIRRHOSIS OF LIVER WITHOUT ALCOHOL 11/08/2010 RODY TAR POT WORKER, HEATHER S 571.5 CIRRHOSIS OF LIVER WITHOUT ALCOHOL 11/08/2010 RODY TAR POT WORKER, HEATHER S 571.5 CIRRHOSIS OF LIVER WITHOUT ALCOHOL 11/08/2010 RODY TAR POT WORKER, HEATHER S 571.5 CIRRHOSIS OF LIVER WITHOUT ALCOHOL 11/08/2010 RODY TAR POT WORKER, HEATHER S 571.5 CIRRHOSIS OF LIVER WITHOUT ALCOHOL 11/11/2010 RODY TAR POT WORKER, HEATHER S 070.54 HEPATITIS C CHRONIC 11/11/2010 [...] DDS 070.54 HEPATITIS C CHRONIC 11/11/2010 RODY TAR POT WORKER, HEATHER S 070.54 HEPATITIS C CHRONIC 11/11/2010 RODY TAR POT WORKER, HEATHER S 070.54 HEPATITIS C CHRONIC 11/11/2010 RODY TAR POT WORKER, HEATHER S 070.54 HEPATITIS C CHRONIC 11/11/2010 RODY TAR POT WORKER, HEATHER S 070.54 HEPATITIS C CHRONIC 11/11/2010 RODY TAR POT WORKER, HEATHER S 070.54 HEPATITIS C CHRONIC 11/11/2010 RODY TAR POT WORKER, HEATHER S 070.54 HEPATITIS C CHRONIC 11/11/2010 DEMOND SAVAGE, TRAM A 070.54 HEPATITIS C CHRONIC 11/11/2010 AGUILAR DO MIKE K 070.54 HEPATITIS C CHRONIC 11/11/2010 RODY TAR POT WORKER, HEATHER S 070.54 HEPATITIS C CHRONIC 11/11/2010 RODY TAR POT WORKER, HETAHER S 070.54 HEPATITIS C CHRONIC 11/11/2010 RODY TAR POT WORKER, HEATHER S 070.54 HEPATITIS C CHRONIC 11/11/2010 RODY TAR POT WORKER, HEATHER S 070.54 HEPATITIS C CHRONIC 11/11/2010 RODY TAR POT WORKER, HEATHER S 070.54 HEPATITIS C CHRONIC 10/25/2011 [...] CERVICAL CANCER SCREENING (PAP SMEAR) 10/25/2011 RODY TAR POT WORKER, HEATHER S V76.19 OTHER SCREENING BREAST EXAMINATION 10/25/2011 RODY TAR POT WORKER HEATHER S V76.2 CERVICAL CANCER SCREENING (PAP SMEAR) 10/25/2011 RODY TAR POT WORKER, HEATHER S V76.19 OTHER SCREENING BREAST EXAMINATION 10/25/2011 RODY TAR POT WORKER, HEATHER S V76.2 CERVICAL CANCER SCREENING (PAP SMEAR) 10/25/2011 RODY TAR POT WORKER HEATHER S V76.19 OTHER SCREENING BREAST EXAMINATION 10/25/2011 RODY TAR POT WORKER HEATHER S V76.2 CERVICAL CANCER SCREENING (PAP SMEAR) 10/25/2011 RODY TAR POT WORKER HEATHER S V76.19 OTHER SCREENING BREAST EXAMINATION 10/25/2011 RODY TAR POT WORKER HEATHER S V76.2 CERVICAL CANCER SCREENING (PAP SMEAR) 10/25/2011 RODY TAR POT WORKER, HEATHER S V76.19 OTHER SCREENING BREAST EXAMINATION 10/25/2011 RODY TAR POT WORKER, HEATHER S V76.2 CERVICAL CANCER SCREENING (PAP SMEAR) 10/25/2011 RODY TAR POT WORKER, HEATHER S V76.19 OTHER SCREENING BREAST EXAMINATION 10/25/2011 RODY TAR POT WORKER, HEATHER S V76.2 CERVICAL CANCER SCREENING (PAP SMEAR) 10/25/2011 DEMOND SAVAGE TRAM A V76.19 OTHER SCREENING BREAST EXAMINATION 10/25/2011 DEMOND APRN, TRAM A V76.2 CERVICAL CANCER SCREENING (PAP SMEAR) 10/25/2011 LAUREN DO MIKE K V76.19 OTHER SCREENING BREAST EXAMINATION 10/25/2011 AGUILAR DO MIKE K V76.2 CERVICAL CANCER SCREENING (PAP SMEAR) 10/25/2011 RODY TAR POT WORKER, HEATHER S V76.19 OTHER SCREENING BREAST EXAMINATION 10/25/2011 RODY TAR POT WORKER, HEATHER S V76.2 CERVICAL CANCER SCREENING (PAP SMEAR) 10/25/2011 RODY TAR POT WORKER, HEATHER S V76.19 OTHER SCREENING BREAST EXAMINATION 10/25/2011 RODY TAR POT WORKER, HEATHER S V76.2 CERVICAL CANCER SCREENING (PAP SMEAR) 10/25/2011 RODY TAR POT WORKER, HEATHER S V76.19 OTHER SCREENING BREAST EXAMINATION 10/25/2011 RODY SAVAGE, HEATHER S V76.2 CERVICAL CANCER SCREENING (PAP SMEAR) 10/25/2011 RODY TAR POT WORKER, HEATHER S V76.19 OTHER SCREENING BREAST EXAMINATION 10/25/2011 RODY TAR POT WORKER, HEATHER S V76.2 CERVICAL CANCER SCREENING (PAP SMEAR) 10/25/2011 RODY TAR POT WORKER, HEATHER S V76.19 OTHER SCREENING BREAST EXAMINATION 10/25/2011 RODY TAR POT WORKER, HEATHER S V76.2 CERVICAL CANCER SCREENING (PAP [...] S 729.82 CRAMP OF LIMB 11/16/2011 RODY TAR POT WORKER, HEATHER S 729.82 CRAMP OF LIMB 11/16/2011 RODY TAR POT WORKER, HEATHER S 729.82 CRAMP OF LIMB 11/16/2011 RODY TAR POT WORKER, HEATHER S 729.82 CRAMP OF LIMB 11/16/2011 RODY TAR POT WORKER, HEATHER S 729.82 CRAMP OF LIMB 11/16/2011 TRAM LAGOS APRN A 729.82 CRAMP OF LIMB 11/16/2011 PRACHI AGUILAR DOA K 729.82 CRAMP OF LIMB 11/16/2011 RODY TAR POT WORKER, HEATHER S 729.82 CRAMP OF LIMB 11/16/2011 RODY TAR POT WORKER, HEATHER S 729.82 CRAMP OF LIMB 11/16/2011 RODY TAR POT WORKER, HEATHER S 729.82 CRAMP OF LIMB 11/16/2011 RODY TAR POT WORKER, HEATHER S 729.82 CRAMP OF LIMB 11/16/2011 RODY TAR POT WORKER, HEATHER S 729.82 CRAMP OF LIMB 02/09/2012 RODY TAR POT WORKER, HEATHER S 788.1 DYSURIA 02/09/2012 788.1 DYSURIA 02/09/2012 MIROSLAVA HILL MD 788.1 DYSURIA 02/09/2012 DEMONDPATRICIA SAVAGE TRAM A 788.1 DYSURIA 02/09/2012 788.1 DYSURIA 02/09/2012 788.1 DYSURIA 02/09/2012 AGUILAR DO, MIKE K 788.1 DYSURIA 02/09/2012 AGUILAR DO, MIKE K 788.1 DYSURIA 02/09/2012 RODYJAIMEE BOYKINN, HEATHER S 788.1 DYSURIA 02/09/2012 MERCEDES JENNINGS DDS 788.1 DYSURIA 02/09/2012 RODY BOYKINN, HEATHER S 788.1 DYSURIA 02/09/2012 RODY TAR POT WORKER, HEATHER S 788.1 DYSURIA 02/09/2012 RODY TAR POT WORKER, HEATHER S 788.1 DYSURIA 02/09/2012 RODY TAR POT WORKER, HEATHER S 788.1 DYSURIA 02/09/2012 RODY TAR POT WORKER, HEATHER S 788.1 DYSURIA 02/09/2012 RODY TAR POT WORKER, HEATHER S 788.1 DYSURIA 02/09/2012 JEAN CARLOS LAGOS APRNIDI A 788.1 DYSURIA 02/09/2012 AGUILAR DO, MIKE K 788.1 DYSURIA 02/09/2012 RODY TAR POT WORKER, HEATHER S 788.1 DYSURIA 02/09/2012 RODY TAR POT WORKER, HEATHER S 788.1 DYSURIA 02/09/2012 RODY TAR POT WORKER, HEATHER S 788.1 DYSURIA 02/09/2012 HEATHER FINE [...] APRN 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 04/30/2012 RDOY TAR POT WORKER, HEATHER S 578.9 HEMORRHAGE OF GASTROINTESTINAL TRACT UNSPECIFIED 04/30/2012 WHITE DDS, MERCEDES D 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 04/30/2012 WHITE DDS, MERCEDES D 578.9 HEMORRHAGE OF GASTROINTESTINAL TRACT UNSPECIFIED 04/30/2012 RODY TAR POT WORKER, HEATHER S 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 04/30/2012 RODY TAR POT WORKER, HEATHER S 578.9 HEMORRHAGE OF GASTROINTESTINAL TRACT UNSPECIFIED 04/30/2012 RODY TAR POT WORKER, HEATHER S 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 04/30/2012 RODY TAR POT WORKER, HEATHER S 578.9 HEMORRHAGE OF GASTROINTESTINAL TRACT UNSPECIFIED 04/30/2012 RODY TAR POT WORKER, HEATHER S 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 04/30/2012 RODY TAR POT WORKER, HEATHER S 578.9 HEMORRHAGE OF GASTROINTESTINAL TRACT UNSPECIFIED 04/30/2012 RODY TAR POT WORKER, HEATHER S 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 04/30/2012 RODY TAR POT WORKER, HEATHER S 578.9 HEMORRHAGE OF GASTROINTESTINAL TRACT UNSPECIFIED 04/30/2012 RODY TAR POT WORKER, HEATHER S 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 04/30/2012 RODY TAR POT WORKER, HEATHER S 578.9 HEMORRHAGE OF GASTROINTESTINAL TRACT UNSPECIFIED 04/30/2012 RODY TAR POT WORKER, HEATHER S 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 04/30/2012 RODY TAR POT WORKER, HEATHER S 578.9 HEMORRHAGE OF GASTROINTESTINAL TRACT UNSPECIFIED 04/30/2012 DEMOND TAR POT WORKER, TRAM A 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 04/30/2012 DEMOND TAR POT WORKER, TRAM A 578.9 HEMORRHAGE OF GASTROINTESTINAL TRACT UNSPECIFIED 04/30/2012 AGUILAR DO, MIKE K 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 04/30/2012 AUGILAR DO, MIKE K 578.9 HEMORRHAGE OF GASTROINTESTINAL TRACT UNSPECIFIED 04/30/2012 RODY TAR POT WORKER, HEATHER S 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 04/30/2012 RODY TAR POT WORKER, HEATHER S 578.9 HEMORRHAGE OF GASTROINTESTINAL TRACT UNSPECIFIED 04/30/2012 RODY TAR POT WORKER, HEATHER S 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 04/30/2012 RODY TAR POT WORKER, HEATHER S 578.9 HEMORRHAGE OF GASTROINTESTINAL TRACT UNSPECIFIED 04/30/2012 RODY TAR POT WORKER, HEATHER S 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 04/30/2012 RODY TAR POT WORKER, HEATHER S 578.9 HEMORRHAGE OF GASTROINTESTINAL TRACT UNSPECIFIED 04/30/2012 RODY TAR POT WORKER, HEATHER S 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 04/30/2012 RODY TAR POT WORKER, HEATHER S 578.9 HEMORRHAGE OF GASTROINTESTINAL TRACT UNSPECIFIED 04/30/2012 RODY TAR POT WORKER, HEATHER S 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 04/30/2012 RODY TAR POT WORKER, HEATHER S 578.9 HEMORRHAGE OF GASTROINTESTINAL TRACT [...] S V76.10 BREAST CANCER SCREENING 11/13/2012 RODY TAR POT WORKER, HEATHER S V76.10 BREAST CANCER SCREENING 11/13/2012 RODY TAR POT WORKER, HEATHER S V76.10 BREAST CANCER SCREENING 11/13/2012 RODY TAR POT WORKER, HEATHER S V76.10 BREAST CANCER SCREENING 11/13/2012 DEMOND TAR POT WORKER, TRAM A V76.10 BREAST CANCER SCREENING 11/13/2012 AGUILAR DO, MIKE K V76.10 BREAST CANCER SCREENING 11/13/2012 RODY TAR POT WORKER, HEATHER S V76.10 BREAST CANCER SCREENING 11/13/2012 RODY TAR POT WORKER, HEATHER S V76.10 BREAST CANCER SCREENING 11/13/2012 RODY TAR POT WORKER, HEATHER S V76.10 BREAST CANCER SCREENING 11/13/2012 RODY TAR POT WORKER, HEATHER S V76.10 BREAST CANCER SCREENING 12/31/2012 719.46 PAIN- KNEE 12/31/2012 AGUILAR DO, MIKE K 719.46 PAIN- KNEE 12/31/2012 AGUILAR DO, MIKE K 719.46 PAIN- KNEE 12/31/2012 RODY TAR POT WORKER, HEATHER S 719.46 PAIN- KNEE 12/31/2012 MERCEDES JENNINGS DDS 719.46 PAIN- KNEE 12/31/2012 RODY TAR POT WORKER, HEATHER S 719.46 PAIN- KNEE 12/31/2012 RODY TAR POT WORKER, HEATHER S 719.46 PAIN- KNEE 12/31/2012 RODY TAR POT WORKER, HEATHRE S 719.46 PAIN- KNEE 12/31/2012 RODY TAR POT WORKER, HEATHER S 719.46 PAIN- KNEE 12/31/2012 RODY TAR POT WORKER, HEATHER S 719.46 PAIN- KNEE 12/31/2012 RODY TAR POT WORKER, HEATHER S 719.46 PAIN- KNEE 12/31/2012 DEMOND TAR POT WORKER, TRAM A 719.46 PAIN- KNEE 12/31/2012 AGUILAR DO, MIKE K 719.46 PAIN- KNEE 12/31/2012 RODY TAR POT WORKER, HEATHER S 719.46 PAIN- KNEE 12/31/2012 RODY TAR POT WORKER, HEATHER S 719.46 PAIN- KNEE 12/31/2012 RODY TAR POT WORKER, HEATHER S 719.46 PAIN- KNEE 12/31/2012 RODY TAR POT WORKER, HEATHER S 719.46 PAIN- KNEE 02/20/2013 AGUILAR DO, MIKE K 300.00 ANXIETY STATE UNSPECIFIED 02/20/2013 AGUILAR DO, MIKE K 300.00 ANXIETY STATE UNSPECIFIED 02/20/2013 RODY TAR POT WORKER, HEATHER S 300.00 ANXIETY STATE UNSPECIFIED 02/20/2013 WHITE DDS, MERCEDES D 300.00 ANXIETY STATE UNSPECIFIED 02/20/2013 RODY TAR POT WORKER, HEATHER S 300.00 ANXIETY STATE UNSPECIFIED 02/20/2013 RODY TAR POT WORKER, HEATHER S 300.00 ANXIETY STATE UNSPECIFIED 02/20/2013 RODY TAR POT WORKER, HEATHER S 300.00 ANXIETY STATE UNSPECIFIED 02/20/2013 RODY TAR POT WORKER, HEATHER S 300.00 ANXIETY STATE UNSPECIFIED 02/20/2013 RODY TAR POT WORKER, HEATHER S 300.00 ANXIETY STATE UNSPECIFIED 02/20/2013 RODY TAR POT WORKER, HEATHER S 300.00 ANXIETY STATE UNSPECIFIED 02/20/2013 DEMOND TAR POT WORKER, TRAM A 300.00 ANXIETY STATE UNSPECIFIED 02/20/2013 AGUILAR DO, MIKE K 300.00 ANXIETY STATE UNSPECIFIED 02/20/2013 RODY TAR POT WORKER, HEATHER S 300.00 ANXIETY STATE UNSPECIFIED 02/20/2013 RODY TAR POT WORKER, HEATHER S 300.00 ANXIETY STATE UNSPECIFIED 02/20/2013 RODY TAR POT WORKER, HEATHER S 300.00 ANXIETY STATE UNSPECIFIED 02/20/2013 RODY TAR POT WORKER, HEATHER S 300.00 ANXIETY STATE UNSPECIFIED 03/04/2013 AGUILAR DO, MIKE K 701.9 SKIN TAG 03/04/2013 AGUILAR DO, MIKE K 701.9 SKIN TAG 03/04/2013 RODY TAR POT WORKER, HEATHER S 701.9 SKIN TAG 03/04/2013 WHITE DDS, MERCEDES D 701.9 SKIN TAG 03/04/2013 RODY TAR POT WORKER, HEATHER S 701.9 SKIN TAG 03/04/2013 RODY TAR POT WORKER, HEATHER S 701.9 SKIN TAG 03/04/2013 RODY TAR POT WORKER, HEATHER S 701.9 SKIN TAG 03/04/2013 RODY TAR POT WORKER, HEATHER S 701.9 SKIN TAG 03/04/2013 RODY TAR POT WORKER, HEATHER S 701.9 SKIN TAG 03/04/2013 RODY TAR POT WORKER, HEATHER S 701.9 SKIN TAG 03/04/2013 DEMOND TAR POT WORKER, TRAM A 701.9 SKIN TAG 03/04/2013 AGUILAR DO, MIKE K 701.9 SKIN TAG 03/04/2013 RODY TAR POT WORKER, HEATHER S 701.9 SKIN TAG 03/04/2013 RODY TAR POT WORKER, HEATHER S 701.9 SKIN TAG 03/04/2013 RODY TAR POT WORKER, HEATHER S 701.9 SKIN TAG 03/04/2013 RODY TAR POT WORKER, HEATHER S 701.9 SKIN TAG 03/12/2013 AGUILAR DO, MIKE K 008.8 GASTROENTERITIS, VIRAL 03/12/2013 AGUILAR DO, MIKE K 008.8 GASTROENTERITIS, VIRAL 03/12/2013 RODY TAR POT WORKER, HEATHER S 008.8 GASTROENTERITIS, VIRAL 03/12/2013 WHITE DDS, MERCEDES D 008.8 GASTROENTERITIS, VIRAL 03/12/2013 ROYD TAR POT WORKER, HEATHER S 008.8 GASTROENTERITIS, VIRAL 03/12/2013 RODY TAR POT WORKER, HEATHER S 008.8 GASTROENTERITIS, VIRAL 03/12/2013 RODY TAR POT WORKER, HEATHER S 008.8 GASTROENTERITIS, VIRAL 03/12/2013 RODY TAR POT WORKER, HEATHER S 008.8 GASTROENTERITIS, VIRAL 03/12/2013 RODY TAR POT WORKER, HEATHER S 008.8 GASTROENTERITIS, VIRAL 03/12/2013 RODY TAR POT WORKER, HEATHER S 008.8 GASTROENTERITIS, VIRAL 03/12/2013 DEMOND TAR POT WORKER, TRAM A 008.8 GASTROENTERITIS, VIRAL 03/12/2013 AGUILAR DO, MIKE K 008.8 GASTROENTERITIS, VIRAL 03/12/2013 RODY TAR POT WORKER, HEATHER S 008.8 GASTROENTERITIS, VIRAL 03/12/2013 RODY TAR POT WORKER, HEATHER S 008.8 GASTROENTERITIS, VIRAL 03/12/2013 RODY TAR POT WORKER, HEATHER S 008.8 GASTROENTERITIS, VIRAL 03/12/2013 RODY TAR POT WORKER, HEATHER S 008.8 GASTROENTERITIS, VIRAL 03/14/2013 AGULIAR DO, MIKE K 789.06 ABDOMINAL PAIN EPIGASTRIC 03/14/2013 AGUILAR DO, MIKE K 789.06 ABDOMINAL PAIN EPIGASTRIC 03/14/2013 RODY TAR POT WORKER, HEATHER S 789.06 ABDOMINAL PAIN EPIGASTRIC 03/14/2013 WHITE DDS, MERCEDES D 789.06 ABDOMINAL PAIN EPIGASTRIC 03/14/2013 RODY TAR POT WORKER, HEATHER S 789.06 ABDOMINAL PAIN EPIGASTRIC 03/14/2013 RODY TAR POT WORKER, HEATHER S 789.06 ABDOMINAL PAIN EPIGASTRIC 03/14/2013 RODY TAR POT WORKER, HEATHER S 789.06 ABDOMINAL PAIN EPIGASTRIC 03/14/2013 RODY TAR POT WORKER, HEATHER S 789.06 ABDOMINAL PAIN EPIGASTRIC 03/14/2013 RODY TAR POT WORKER, HEATHER S 789.06 ABDOMINAL PAIN EPIGASTRIC 03/14/2013 RODY TAR POT WORKER, HEATHER S 789.06 ABDOMINAL PAIN EPIGASTRIC 03/14/2013 DEMOND TAR POT WORKER, TRAM A 789.06 ABDOMINAL PAIN EPIGASTRIC 03/14/2013 AGUILAR DO, MIKE K 789.06 ABDOMINAL PAIN EPIGASTRIC 03/14/2013 RODY TAR POT WORKER, HEATHER S 789.06 ABDOMINAL PAIN EPIGASTRIC 03/14/2013 RODY TAR POT WORKER, HEATHER S 789.06 ABDOMINAL PAIN EPIGASTRIC 03/14/2013 RODY TAR POT WORKER, HEATHER S 789.06 ABDOMINAL PAIN EPIGASTRIC 03/14/2013 RODY TAR POT WORKER, HEATHER S 789.06 ABDOMINAL PAIN EPIGASTRIC 08/23/2013 RODY TAR POT WORKER, HEATHER S 287.5 THROMBOCYTOPENIA 08/23/2013 RODY TAR POT WORKER, HEATHER S 525.9 TOOTH PAIN 08/23/2013 RODY TAR POT WORKER, HEATHER S 287.5 THROMBOCYTOPENIA 08/23/2013 RODY TAR POT WORKER, HEATHER S 525.9 TOOTH PAIN 08/23/2013 RODY TAR POT WORKER, HEATHER S 287.5 THROMBOCYTOPENIA 08/23/2013 ORDY TAR POT WORKER, HEATHER S 525.9 TOOTH PAIN 08/23/2013 RODY TAR POT WORKER, HEATHER S 287.5 THROMBOCYTOPENIA 08/23/2013 RODY TAR POT WORKER, HEATHER S 525.9 TOOTH PAIN 08/23/2013 RODY TAR POT WORKER, HEATHER S 287.5 THROMBOCYTOPENIA 08/23/2013 RODY TAR POT WORKER, HEATHER S 525.9 TOOTH PAIN 08/23/2013 RODY TAR POT WORKER, HEATHER S 287.5 THROMBOCYTOPENIA 08/23/2013 RODY TAR POT WORKER, HEATHER S 525.9 TOOTH PAIN 08/23/2013 DEMOND TAR POT WORKER, TRAM A 287.5 THROMBOCYTOPENIA 08/23/2013 DEMOND TAR POT WORKER, TRAM A 525.9 TOOTH PAIN 08/23/2013 AGUILAR DO, MIKE K 287.5 THROMBOCYTOPENIA 08/23/2013 AGUILAR DO, MIKE K 525.9 TOOTH PAIN 08/23/2013 RODY TAR POT WORKER, HEATHER S 287.5 THROMBOCYTOPENIA 08/23/2013 RODY TAR POT WORKER, HEATHER S 525.9 TOOTH PAIN 08/23/2013 RODY TAR POT WORKER, HEATHER S 287.5 THROMBOCYTOPENIA 08/23/2013 RODY TAR POT WORKER, HEATHER S 525.9 TOOTH PAIN 08/23/2013 RODY TAR POT WORKER, HEATHER S 287.5 THROMBOCYTOPENIA 08/23/2013 RODY TAR POT WORKER, HEATHER S 525.9 TOOTH PAIN 08/23/2013 RODY TAR POT WORKER, HEATHER S 287.5 THROMBOCYTOPENIA 08/23/2013 RODY TAR POT WORKER, HEATHER S 525.9 TOOTH PAIN 08/24/2013 BALDO HOOKS, TETO Wells Ot 525.9 DENTAL DISORDER NOS 09/18/2013 MELISSA HOOKS, NAWAF Garvin Ot 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 11/19/2013 RODY TAR POT WORKER, HEATHER S 477.0 ALLERGIC RHINITIS DUE TO POLLEN 11/19/2013 RODY TAR POT WORKER, HEATHER S 477.0 ALLERGIC RHINITIS DUE TO POLLEN 11/19/2013 RODY TAR POT WORKER, HEATHER S 477.0 ALLERGIC RHINITIS DUE TO POLLEN 11/19/2013 RODY TAR POT WORKER, HEATHER S 477.0 ALLERGIC RHINITIS DUE TO POLLEN 11/19/2013 DEMOND TAR POT WORKER, TRAM A 477.0 ALLERGIC RHINITIS DUE TO POLLEN 11/19/2013 AGUILAR DO, MIKE K 477.0 ALLERGIC RHINITIS DUE TO POLLEN 11/19/2013 RODY TAR POT WORKER, HEATHER S 477.0 ALLERGIC RHINITIS DUE TO POLLEN 11/19/2013 RODY TAR POT WORKER, HEATHER S 477.0 ALLERGIC RHINITIS DUE TO POLLEN 11/19/2013 RODY TAR POT WORKER, HEATHER S 477.0 ALLERGIC RHINITIS DUE TO POLLEN 11/19/2013 RODY TAR POT WORKER, HEATHER S 477.0 ALLERGIC RHINITIS DUE TO POLLEN 01/03/2014 DORIS GARCIA TAR POT WORKER Ot 521.00 UNSPEC DENTAL CARIES 01/03/2014 DORIS GARCIA TAR POT WORKER Ot 525.9 DENTAL DISORDER NOS 01/04/2014 KOSTA [...] MIKE AGUILAR DO 786.2 COUGH 03/12/2014 RODY TAR POT WORKER, HEATHER S 786.2 COUGH 03/12/2014 RODY TAR POT WORKER, HEATHER S 786.2 COUGH 03/12/2014 RODY TAR POT WORKER, HEATHER S 786.2 COUGH 03/12/2014 RODY TAR POT WORKER, HEATHER S 786.2 COUGH 03/21/2014 JOHNY HOOKS, AMY Avalos Ot 519.11 ACUTE BRONCHOSPASM 03/21/2014 JOHNY HOOKS, AMY Avalos Ot 787.03 VOMITING ALONE 04/22/2014 RODY SAVAGE, HEATHER S 493.90 ASTHMA UNSPECIFIED 04/22/2014 DEMOND SAVAGE TRAM A 493.90 ASTHMA UNSPECIFIED 04/22/2014 MIKE AGUILAR DO 493.90 ASTHMA UNSPECIFIED 04/22/2014 RODY TAR POT WORKER, HEATHER S 493.90 ASTHMA UNSPECIFIED 04/22/2014 RODY SAVAGE, HEATHER S 493.90 ASTHMA UNSPECIFIED 04/22/2014 RODY TAR POT WORKER, HEATHER S 493.90 ASTHMA UNSPECIFIED 04/22/2014 RODY TAR POT WORKER, HEATHER S 493.90 ASTHMA UNSPECIFIED 05/05/2014 DEMONDLaura SAVAGE TRAM A 599.0 URINARY TRACT INFECTION 05/05/2014 MIKE AGUILAR DO K 599.0 URINARY TRACT INFECTION 05/05/2014 RODY TAR POT WORKER, HEATHER S 599.0 URINARY TRACT INFECTION 05/05/2014 RODY TAR POT WORKER, HEATHER S 599.0 URINARY TRACT INFECTION 05/05/2014 RODY TAR POT WORKER, HEATHER S 599.0 URINARY TRACT INFECTION 05/05/2014 RODY TAR POT WORKER, HEATHER S 599.0 URINARY TRACT INFECTION 06/18/2014 DORIS GARCIA TAR POT WORKER Ot 079.99 VIRAL INFECTION NOS 06/18/2014 DORIS GARCIA TAR POT WORKER Ot 284.19 OTHER PANCYTOPENIA 06/18/2014 DORIS GARCIA TAR POT WORKER Ot 780.60 FEVER, UNSPECIFIED 06/20/2014 CYNDI DODALIAA [...] MARLO Summers Ot V58.69 07/12/2014 DORIS GARCIA TAR POT WORKER Ot 070.70 UNSPECIFIED VIRAL HEPATITIS C WITHOUT HE 07/12/2014 DORIS GARCIA TAR POT WORKER Ot 456.20 BLEED ESOPH TASHI OTH DIS 07/12/2014 DORIS GARCIA TAR POT WORKER Ot 571.5 CIRRHOSIS OF LIVER NOS 07/12/2014 DORIS GARCIA TAR POT WORKER Ot 578.0 HEMATEMESIS 07/14/2014 MARLO BRYANT MD [...] Ot V58.69 OTH MED,LT,CURRENT USE 07/30/2014 RODY TAR POT WORKER, HEATHER S 789.59 OTHER ASCITES 07/30/2014 RODY TAR POT WORKER, HEATHER S 789.59 OTHER ASCITES 07/30/2014 RODY TAR POT WORKER, HEATHER S 789.59 OTHER ASCITES 07/30/2014 RODY TAR POT WORKER, HEATHER S 789.59 OTHER ASCITES 07/30/2014 MANNY [...] MANNY HOOKS, MARLO Summers Ot 070.54 07/30/2014 AMNNY HOOKS, MARLO Summers Ot 285.9 07/30/2014 MANNY [...] Summers Ot 287.5 THROMBOCYTOPENIA NOS 10/18/2014 MANNY OHOKS, MARLO Summers Ot 571.3 ALCOHOL LIVER DAMAGE [...] MARCE HOOKS, CHRISTOPHER Evans Ot 456.1 01/15/2015 MAREC HOOKS, CHRISTOPHER Evans Ot 571.5 01/15/2015 MARCE [...] HOOKS, MARLO Summers Ot V58.69 05/09/2015 STU YNA MD Ot 924.20 CONTUSION OF FOOT 05/09/2015 [...] HOOKS, MARLO Summers Ot 789.2 10/13/2015 MANNY OHOKS, MARLO Summers Ot 070.54 10/13/2015 MANNY HOOKS, [...] Summers Ot V58.69 10/13/2015 MARCE HOOKS, CHRISTOPHER Eavns Ot 456.1 10/13/2015 MARCE HOOKS, CHRISTOPHER Evans [...] MANNY HOOKS, MARLO Summers Ot Z79.899 OTHER RN RESIDENTIAL (CURRENT) DRUG THERAPY 01/13/2016 MANNY HOOKS, MARLO Summers Ot B18.2 CHRONIC VIRAL HEPATITIS C 01/13/2016 MARLO BRYANT MD Ot D64.9 ANEMIA, UNSPECIFIED 01/13/2016 MARLO BRYANT MD Ot D69.6 THROMBOCYTOPENIA, UNSPECIFIED 01/13/2016 MARLO BRYANT MD Ot F10.21 ALCOHOL DEPENDENCE, IN REMISSION 01/13/2016 MARLO BRYANT MD Ot K70.9 ALCOHOLIC LIVER DISEASE, UNSPECIFIED 01/13/2016 MARLO BRYANT MD Ot Z79.899 OTHER GROUP HOME (CURRENT) DRUG THERAPY 01/24/2016 Ot 070.54 CHRONIC [...] 01/24/2016 MARLO BRYANT MD Ot Z79.899 OTHER GROUP HOME (CURRENT) DRUG THERAPY 01/27/2016 MARLO BRYANT MD [...] 04/19/2016 MARLO BRYANT MD Ot Z79.899 OTHER RN RESIDENTIAL (CURRENT) DRUG THERAPY 04/20/2016 MARLO BRYANT MD Ot B18.2 CHRONIC VIRAL HEPATITIS C 04/20/2016 MARLO BRYANT MD Ot D64.9 ANEMIA, UNSPECIFIED 04/20/2016 MARLO BRYANT MD Ot D69.6 THROMBOCYTOPENIA, UNSPECIFIED 04/20/2016 MARLO BRYANT MD Ot F10.21 ALCOHOL DEPENDENCE, IN REMISSION 04/20/2016 MARLO BRYANT MD Ot K70.9 ALCOHOLIC LIVER DISEASE, UNSPECIFIED 04/20/2016 MANNY HOOKS, MARLO Summers Ot Z79.899 OTHER GROUP HOME (CURRENT) DRUG THERAPY 06/10/2016 AZUL EMMANUEL Ot [...] Ot 571.5 CIRRHOSIS OF LIVER NOS 06/10/2016 CHRITSOPHER ZHENG MD Ot 456.1 ESOPH VARICES W/O [...] 06/10/2016 MARLO BRYANT MD Ot Z79.899 OTHER GROUP HOME (CURRENT) DRUG THERAPY 08/17/2016 MARCE HOOKS, CHRISTOPHER [...] 08/22/2016 MARLO BRYANT MD Ot Z79.899 OTHER GROUP HOME (CURRENT) DRUG THERAPY 10/02/2016 TRAVIS HOOKS, YARIEL Gutierrez Ot J44.9 CHRONIC OBSTRUCTIVE PULMONARY DISEASE, U 10/02/2016 TRAVIS HOOKS, YARIEL Gutierrez Ot K59.00 CONSTIPATION, UNSPECIFIED 10/02/2016 TRAVIS HOOKS, YARIEL Gutierrez Ot N39.0 URINARY TRACT INFECTION, SITE NOT SPECIF 10/02/2016 TRAVIS HOOKS, YARIEL Gutierrez Ot R10.32 LEFT LOWER QUADRANT PAIN 10/02/2016 TRAVIS HOOKS, YARIEL Gutierrez Ot Z79.899 OTHER GROUP HOME (CURRENT) DRUG THERAPY 10/02/2016 Ot 070.54 CHRONIC [...] BRYANT MD Ot 287.5 THROMBOCYTOPENIA NOS 10/02/2016 MAROL BRYANT MD Ot 571.3 ALCOHOL LIVER DAMAGE [...] 10/02/2016 MARLO BRYANT MD, Ot Z79.899 OTHER RN RESIDENTIAL (CURRENT) DRUG THERAPY 10/02/2016 MARLO BRYANT MD Ot Z87.891 PERSONAL HISTORY OF NICOTINE DEPENDENCE 10/03/2016 YARIEL ROBLES MD, Ot J44.9 CHRONIC OBSTRUCTIVE PULMONARY DISEASE, U 10/03/2016 YARIEL ROBLES MD, Ot K59.00 CONSTIPATION, UNSPECIFIED 10/03/2016 YARIEL ROBLES MD, Ot N39.0 URINARY TRACT INFECTION, SITE NOT SPECIF 10/03/2016 YARIEL ROBLES MD, Ot R10.32 LEFT LOWER QUADRANT PAIN 10/03/2016 YARIEL ROBLES MD, Ot Z79.899 OTHER GROUP HOME (CURRENT) DRUG THERAPY 10/04/2016 YARIEL ROBLES MD Ot J44.9 CHRONIC OBSTRUCTIVE PULMONARY DISEASE, U 10/04/2016 YARIEL ROBLES MD Ot K59.00 CONSTIPATION, UNSPECIFIED 10/04/2016 YARIEL ROBLES MD Ot N39.0 URINARY TRACT INFECTION, SITE NOT SPECIF 10/04/2016 YARIEL ROBLES MD Ot R10.32 LEFT LOWER QUADRANT PAIN 10/04/2016 YARIEL ROBLES MD, Ot Z79.899 OTHER RN RESIDENTIAL (CURRENT) DRUG THERAPY 11/19/2016 MARLO BRYANT MD [...] 11/19/2016 MARLO BRYANT MD Ot Z79.899 OTHER RN RESIDENTIAL (CURRENT) DRUG THERAPY 11/19/2016 MARLO BRYANT MD [...] MD, Ot V58.69 OT MED,LT,CURRENT USE 11/23/2016 HCRISTOPHER ZHENG MD, Ot 456.1 ESOPH VARICES W/O [...] D50.9 IRON DEFICIENCY ANEMIA, UNSPECIFIED 11/23/2016 MARLO BRYATN MD Ot D69.6 THROMBOCYTOPENIA, UNSPECIFIED 11/23/2016 MARLO BRYANT MD Ot D72.819 DECREASED WHITE BLOOD CELL COUNT, UNSPEC 11/23/2016 MARLO BRYANT MD Ot F10.21 ALCOHOL DEPENDENCE, IN REMISSION 11/23/2016 MARLO BRYANT MD Ot K70.9 ALCOHOLIC LIVER DISEASE, UNSPECIFIED 11/23/2016 MARLO BRYANT MD Ot Z79.899 OTHER GROUP HOME (CURRENT) DRUG THERAPY 11/23/2016 MARLO BRYANT MD [...] Ot K70.9 ALCOHOLIC LIVER DISEASE, UNSPECIFIED 11/24/2016 MALRO BRYANT MD, Ot Z79.899 OTHER GROUP HOME (CURRENT) DRUG THERAPY 11/24/2016 CHOLOAZUL Mejia Ot [...] 01/26/2017 MARLO BRYANT MD Ot Z79.899 OTHER RN RESIDENTIAL (CURRENT) DRUG THERAPY 01/26/2017 KOSTA MAGANA Ot [...] 03/01/2017 MARLO BRYANT MD Ot Z79.899 OTHER RN RESIDENTIAL (CURRENT) DRUG THERAPY 03/01/2017 MARLO BRYANT MD Ot Z87.891 PERSONAL HISTORY OF NICOTINE DEPENDENCE 03/02/2017 MARLO BRYANT MD Ot B18.2 CHRONIC VIRAL HEPATITIS C 03/02/2017 MARLO BYRANT MD Ot D50.9 IRON DEFICIENCY ANEMIA, UNSPECIFIED 03/02/2017 MARLO BRYANT MD Ot D69.6 THROMBOCYTOPENIA, UNSPECIFIED 03/02/2017 MARLO BRYANT MD Ot D72.819 DECREASED WHITE BLOOD CELL COUNT, UNSPEC 03/02/2017 MARLO BRYANT MD Ot F10.21 ALCOHOL DEPENDENCE, IN REMISSION 03/02/2017 MARLO BRYANT MD Ot K70.9 ALCOHOLIC LIVER DISEASE, UNSPECIFIED 03/02/2017 MARLO BRYANT MD Ot Z79.899 OTHER GROUP HOME (CURRENT) DRUG THERAPY 03/02/2017 MARLO BRYANT MD [...] 03/19/2017 MARLO BRYANT MD Ot Z79.899 OTHER RN RESIDENTIAL (CURRENT) DRUG THERAPY 03/19/2017 MARLO BRYANT MD [...] 04/03/2017 MARLO BRYANT MD Ot Z79.899 OTHER RN RESIDENTIAL (CURRENT) DRUG THERAPY 04/03/2017 MARLO BRYANT MD [...] 04/06/2017 MARLO BRYANT MD Ot Z79.899 OTHER RN RESIDENTIAL (CURRENT) DRUG THERAPY 04/06/2017 MARLO BRYANT MD [...] 04/12/2017 MARLO BRYANT MD Ot Z79.899 OTHER RN RESIDENTIAL (CURRENT) DRUG THERAPY 04/12/2017 MARLO BRYANT MD, [...] 05/12/2017 MARLO BRYANT MD Ot Z79.899 OTHER GROUP HOME (CURRENT) DRUG THERAPY 05/12/2017 MARLO BRYANT MD [...] 10/11/2017 ROXANA BENÍTEZ MD Ot Z79.899 OTHER GROUP HOME (CURRENT) DRUG THERAPY 10/11/2017 ROXANA BENÍTEZ MD Ot Z87.891 PERSONAL HISTORY OF NICOTINE DEPENDENCE 10/15/2017 ANTOINE, ARMIDA Denton [employer] WORKER Ot 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 10/15/2017 ANTOINE, ARMIDA Denton [employer] WORKER Ot K70.30 ALCOHOLIC CIRRHOSIS OF LIVER WITHOUT ASC 10/15/2017 ANTOINE, ARMIDA Denton [employer] WORKER Ot R16.1 SPLENOMEGALY, NOT ELSEWHERE CLASSIFIED 11/14/2017 ANTOINE, ARMIDA Denton [employer] P[employer] WORKER Ot 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899 OTHER RN RESIDENTIAL (CURRENT) DRUG THERAPY 03/12/2018 ROXANA BENÍTEZ MD [...] ESOPHAGEAL VARICES WITHOUT BLE 05/13/2018 ROXANA BENÍTEZ MD Ot K70.30 ALCOHOLIC CIRRHOSIS OF LIVER WITHOUT ASC 05/13/2018 ROXANA BENÍTEZ MD Ot R16.1 SPLENOMEGALY, NOT ELSEWHERE CLASSIFIED 05/13/2018 ROXANA BENÍTEZ MD Ot Z79.899 OTHER GROUP HOME (CURRENT) DRUG THERAPY 05/13/2018 ROXANA BENÍTEZ MD Ot Z87.891 PERSONAL HISTORY OF NICOTINE DEPENDENCE 08/05/2018 MARLO BRYANT MD Ot 070.54 CHRONIC HEPATITIS C W/O HEPATIC COMA 08/05/2018 MARLO BRYANT MD Ot 285.9 ANEMIA NOS 08/05/2018 MARLO BRYANT MD Ot 287.5 THROMBOCYTOPENIA NOS 08/05/2018 MARLO BRYANT MD Ot 571.3 ALCOHOL LIVER DAMAGE NOS 08/05/2018 MARLO BRYANT MD Ot V11.3 HX OF ALCOHOLISM 08/05/2018 MARLO BRYANT MD Ot V12.79 PERSONAL HISTORY OTH SPEC DIGESTIVE SYST 08/05/2018 MARLO BRYANT MD Ot V58.69 OTH MED,LT,CURRENT USE 08/05/2018 MELISSA HOOKS, NAWAF Garvin Ot V72.84 EXAM PRE-OPERATIVE NOS 08/05/2018 MARLO BRYANT MD Ot 571.5 CIRRHOSIS OF LIVER NOS 08/05/2018 MARLO BRYANT MD Ot 789.2 SPLENOMEGALY 08/05/2018 MARLO BRYANT MD Ot 070.54 CHRONIC HEPATITIS C W/O HEPATIC COMA 08/05/2018 MARLO BRYANT MD Ot 285.9 ANEMIA NOS 08/05/2018 MARLO BRYANT MD Ot 287.5 THROMBOCYTOPENIA NOS 08/05/2018 MARLO BRYANT MD Ot 571.3 ALCOHOL LIVER DAMAGE NOS 08/05/2018 MARLO BRYANT MD Ot V11.3 HX OF ALCOHOLISM 08/05/2018 MARLO BRYANT MD Ot V12.79 PERSONAL HISTORY OTH SPEC DIGESTIVE SYST 08/05/2018 MARLO BRYANT MD Ot V58.69 OTH MED,LT,CURRENT USE 08/05/2018 MARLO BRYANT MD Ot 070.54 CHRONIC HEPATITIS C W/O HEPATIC COMA 08/05/2018 MARLO BRYANT MD Ot 285.9 ANEMIA NOS 08/05/2018 MARLO BRYANT MD Ot 287.5 THROMBOCYTOPENIA NOS 08/05/2018 MARLO BRYANT MD Ot 571.3 ALCOHOL LIVER DAMAGE NOS 08/05/2018 MARLO BRYANT MD Ot V11.3 HX OF ALCOHOLISM 08/05/2018 MARLO BRYANT MD Ot V12.79 PERSONAL HISTORY OTH SPEC DIGESTIVE SYST 08/05/2018 MARLO BRYANT MD, Ot V58.69 OTH MED,LT,CURRENT USE 08/05/2018 CHRISTOPHER ZHENG MD Ot 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 08/05/2018 CHRISTOPHER ZHENG MD Ot 571.5 CIRRHOSIS OF LIVER NOS 08/05/2018 CHRISTOPHER ZHENG MD Ot 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 08/05/2018 CHRISTOPHER ZHENG MD Ot 571.5 CIRRHOSIS OF LIVER NOS 08/05/2018 MARLO BRYANT MD, Ot B18.2 CHRONIC VIRAL HEPATITIS C 08/05/2018 MARLO BRYANT MD Ot R16.1 SPLENOMEGALY, NOT ELSEWHERE CLASSIFIED 08/05/2018 CHRISTOPHER ZHENG MD Ot K70.30 ALCOHOLIC CIRRHOSIS OF LIVER WITHOUT ASC 08/05/2018 MARLO BRYANT MD Ot R16.1 SPLENOMEGALY, NOT ELSEWHERE CLASSIFIED 08/05/2018 HEATHER FINE Ot Z12.31 ENCNTR SCREEN MAMMOGRAM FOR MALIGNANT NE 08/05/2018 ARMIDA SCHULTZ APRN Ot 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 08/05/2018 ARMIDA SCHULTZ APRN Ot K70.30 ALCOHOLIC CIRRHOSIS OF LIVER WITHOUT ASC 08/05/2018 ARMIDA SCHULTZ APRN Ot R16.1 SPLENOMEGALY, NOT ELSEWHERE CLASSIFIED 08/05/2018 ROXANA BENÍTEZ MD Ot B18.2 CHRONIC VIRAL HEPATITIS C 08/05/2018 ROXANA BENÍTEZ MD Ot D50.9 IRON DEFICIENCY ANEMIA, UNSPECIFIED 08/05/2018 ROXANA BENÍTEZ MD Ot D69.6 THROMBOCYTOPENIA, UNSPECIFIED 08/05/2018 ROXANA BENÍTEZ MD Ot D72.819 DECREASED WHITE BLOOD CELL COUNT, UNSPEC 08/05/2018 ROXANA BENÍTEZ MD Ot F10.21 ALCOHOL DEPENDENCE, IN REMISSION 08/05/2018 ROXANA BENÍTEZ MD Ot 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 08/05/2018 ROXANA BENÍTEZ MD Ot K70.30 ALCOHOLIC CIRRHOSIS OF LIVER WITHOUT ASC 08/05/2018 ROXANA BENÍTEZ MD Ot R16.1 SPLENOMEGALY, NOT ELSEWHERE CLASSIFIED 08/05/2018 ROXANA BENÍTEZ MD Ot Z79.899 OTHER GROUP HOME (CURRENT) DRUG THERAPY 08/05/2018 ROXANA BENÍTEZ MD Ot Z87.891 PERSONAL HISTORY OF NICOTINE DEPENDENCE 08/05/2018 OLIVER AMOS MD Ot D62 ACUTE POSTHEMORRHAGIC ANEMIA 08/05/2018 OLIVER AMOS MD Ot E86.0 DEHYDRATION 08/05/2018 OLIVER AMOS MD Ot F10.11 ALCOHOL ABUSE, IN REMISSION 08/05/2018 OLIVER AMOS MD Ot F17.210 NICOTINE DEPENDENCE, CIGARETTES, UNCOMPL 08/05/2018 OLIVER AMOS MD Ot F32.9 MAJOR DEPRESSIVE DISORDER, SINGLE EPISOD 08/05/2018 OLIVER AMOS MD Ot I85.11 SECONDARY ESOPHAGEAL VARICES WITH BLEEDI 08/05/2018 OLIVER AMOS MD Ot I95.89 OTHER HYPOTENSION 08/05/2018 OLIVER AMOS MD, Ot J44.9 CHRONIC OBSTRUCTIVE PULMONARY DISEASE, U 08/05/2018 OLIVER AMOS MD Ot K70.30 ALCOHOLIC CIRRHOSIS OF LIVER WITHOUT ASC 08/05/2018 OLIVER AMOS MD Ot K70.40 ALCOHOLIC HEPATIC FAILURE WITHOUT COMA 08/05/2018 OLIVER AMOS MD Ot K76.6 PORTAL HYPERTENSION 08/05/2018 OLIVER AMOS MD, Ot Z87.11 PERSONAL HISTORY OF PEPTIC ULCER DISEASE 08/05/2018 OLIVER AMOS MD Ot Z90.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, UNILATERAL 08/15/2018 ROXANA BENÍTEZ MD Ot 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 08/15/2018 ROXANA BENÍTEZ MD Ot R16.1 SPLENOMEGALY, NOT ELSEWHERE CLASSIFIED 08/15/2018 ROXANA BENÍTEZ MD Ot R18.8 OTHER ASCITES Procedures Code Description Performed By Performed On 45.16 ESOPHAGOGASTRODUODENOSCOPY [ EGD] W/CLOSE 11/02/2010 54.91 PERCUTANEOUS ABDOMINAL DRAINAGE 11/02/2010 45.16 ESOPHAGOGASTRODUODENOSCOPY [ EGD] W/CLOSE 04/12/2012 06890 UA W/ CULTURE IF INDICATED 05/23/2012 51974 CULTURE URINE 05/26/2012 45.13 OTHER ENDOSCOPY OF SM INTEST 08/26/2012 37358 UA W/ CULTURE IF INDICATED 11/13/2012 60493 MAMMOGRAM, SCREENING 11/14/2012 04115 XRAY KNEE LEFT, 1 OR 2 VIEWS 12/31/2012 50806 ROUTINE VENIPUNCTURE 05/28/2013 57302 URINE DRUG SCREEN (IN-HOUSE ) 05/28/2013 90747 CMP 05/29/2013 3403234 GFR CALC (RESULT ONLY) 05/29/2013 14598 CBC 05/29/2013 99346 FERRITIN 05/29/2013 33662 HEP C PCR QUANT (SERIAL) 06/07/2013 Gastro[facility]rosl[facility] [place] 06/30/2013 01435 ROUTINE VENIPUNCTURE 08/25/2013 90237 URINE DRUG SCREEN (IN-HOUSE ) 08/25/2013 80077 CBC 08/25/2013 Nawaf Chung 09/10/2013 AMERITOX AMER[employer] DRUG SCREEN 11/23/2013 65300 ROUTINE VENIPUNCTURE 12/15/2013 0609357 GFR CALC (RESULT ONLY) 12/15/2013 57635 CMP 12/15/2013 60687 CBC 12/15/2013 86008 CULTURE URINE 05/05/2014 46037 UA W/ CULTURE IF INDICATED 05/05/2014 54020 PULMONARY FUNCTION TEST (IN- HOUSE) 05/20/2014 72791 RESPIRATORY FLOW VOLUME LOOP 05/20/2014 90783 ROUTINE VENIPUNCTURE 08/24/2014 91846 CBC 08/25/2014 54522 PT/INR 08/26/2014 Results Test Result Range Complete [...] culture - 10/01/16 23:04 Bacterial urine culture [id number] NRG COLONY COUNT >100,000/ML NR FTX;REPORTABLE SENSITIVITY REPORTED 10/03/16 10:55 NR Bacterial susceptibility panel - 10/01/16 23:04 Gentamicin [...] NRG Prescribed Drug 2 Oxycodone NRG Specific [place] 1.003 > or=1.003 Noroxycodone NEGATIVE ng/mL <50 medMATCH Noroxycodone CONSISTENT NRG Oxycodone NEGATIVE ng/mL <50 medMATCH Oxycodone CONSISTENT NRG Oxymorphone 68 ng/mL <50 medMATCH Oxymorphone CONSISTENT NRG Barbiturates NEGATIVE ng/mL <300 medMATCH Barbiturates CONSISTENT NRG Methadone Metabolite NEGATIVE ng/mL <100 medMATCH Methadone Metab CONSISTENT NRG Phencyclidine NEGATIVE ng/mL <25 medMATCH Phencyclidine CONSISTENT NRG Complete blood count (CBC) with automated white blood cell (WBC) differential - 08/05/18 03:05 Blood leukocytes automated count (number/volume) 7.4 10*3/uL 4.3-11.0 Blood erythrocytes automated count (number/volume) 2.92 10*6/uL 4.35-5.85 Venous blood hemoglobin measurement (mass/volume) 8.3 g/dL 11.5-16.0 Blood hematocrit (volume fraction) 25 % 35-52 Automated erythrocyte mean corpuscular volume 85 [foz_us] 80-99 Automated erythrocyte mean corpuscular hemoglobin (mass per erythrocyte) 28 pg 25-34 Automated erythrocyte mean corpuscular hemoglobin concentration measurement ( mass/volume) 34 g/dL 32-36 Automated erythrocyte distribution width ratio 14.9 % 10.0-14.5 Automated blood platelet count (count/volume) 102 10*3/uL 130-400 Automated blood platelet mean volume measurement 9.6 [foz_us] 7.4-10.4 Automated blood neutrophils/100 leukocytes 89 % 42-75 Automated blood lymphocytes/100 leukocytes 9 % 12-44 Blood monocytes/100 leukocytes 1 % 0-12 Automated blood eosinophils/100 leukocytes 1 % 0-10 Automated blood basophils/100 leukocytes 0 % 0-10 Blood neutrophils automated count (number/volume) 6.6 10*3 1.8-7.8 Blood lymphocytes automated count (number/volume) 0.6 10*3 1.0-4.0 Blood monocytes automated count (number/volume) 0.1 10*3 0.0-1.0 Automated eosinophil count 0.1 10*3/uL 0.0-0.3 Automated blood basophil count (count/volume) 0.0 10*3/uL 0.0-0.1 PT panel in platelet poor plasma by coagulation assay - 08/05/18 03:05 Prothrombin time (PT) in platelet poor plasma by coagulation assay 15.6 s 12.2-14.7 INR in platelet poor plasma or blood by coagulation assay 1.2 0.8-1.4 Activated partial thromboplastin time (aPTT) in platelet poor plasma bycoagulation assay - 08/05/18 03:05 Activated partial thromboplastin time (aPTT) in platelet poor plasma bycoagulation assay 27 s 24-35 Comprehensive metabolic panel - 08/05/18 03:05 Serum or plasma sodium measurement (moles/volume) 138 mmol/L 135-145 Serum or plasma potassium measurement (moles/volume) 4.0 mmol/L 3.6-5.0 Serum or plasma chloride measurement (moles/volume) 107 mmol/L 98-107 Carbon dioxide 20 mmol/L 21-32 Serum or plasma anion gap determination (moles/volume) 11 mmol/L 5-14 Serum or plasma urea nitrogen measurement (mass/volume) 33 mg/dL 7-18 Serum or plasma creatinine measurement (mass/volume) 0.77 mg/dL 0.60-1.30 Serum or plasma urea nitrogen/creatinine mass ratio 43 NRG Serum or plasma creatinine measurement with calculation of estimated glomerular filtration rate > NRG Serum or plasma glucose measurement (mass/volume) 126 mg/dL 70-105 Serum or plasma calcium measurement (mass/volume) 9.0 mg/dL 8.5-10.1 Serum or plasma total bilirubin measurement (mass/volume) 1.1 mg/dL 0.1-1.0 Serum or plasma alkaline phosphatase measurement (enzymatic activity/volume) 70 U/L 40-136 Serum or plasma aspartate aminotransferase measurement (enzymatic activity/ volume) 33 U/L 5-34 Serum or plasma alanine aminotransferase measurement (enzymatic activity/volume ) 30 U/L 0-55 Serum or plasma protein measurement (mass/volume) 6.3 g/dL 6.4-8.2 Serum or plasma albumin measurement (mass/volume) 3.7 g/dL 3.2-4.5 CALCIUM CORRECTED 9.2 mg/dL 8.5-10.1 Magnesium - 08/05/18 03:05 Magnesium 1.8 mg/dL 1.8-2.4 Lipase - 08/05/18 03:05 Lipase 48 U/L 8-78 Blood manual differential performed detection - 08/05/18 03:05 Blood monocytes/100 leukocytes 1 % NRG Manual blood segmented neutrophils/100 leukocytes 82 % NRG Blood band neutrophils/100 leukocytes 4 % NRG Manual blood lymphocytes/100 leukocytes 9 % NRG Manual eosinophils/100 leukocytes in nose 2 % NRG Manual blood basophils/100 leukocytes 1 % NRG Blood lymphocytes variant/100 leukocytes 1 % NRG Blood polychromasia detection by light microscopy SLIGHT NRG Blood anisocytosis detection by light microscopy SLIGHT NRG Blood macrocytes detection by light microscopy SLIGHT NRG Blood ovalocytes detection by light microscopy SLIGHT NRG Blood poikilocytosis detection by light microscopy SLIGHT NRG Blood rouleaux detection by light microscopy SLIGHT NRG Bacterial blood culture - 08/05/18 03:05 Bacterial blood culture NG NRG Influenza virus A and B antigen detection - 08/05/18 03:20 FLU RESULT NEGATIVE FOR INFLUENZA A AND B ANTIGENS BY IA NRG RED CELLS LEUKO REDUCED AS1 - 08/05/18 03:40 RED CELLS LEUKO REDUCED AS1 NOT AVAILABLE NRG Blood type T Indirect antibody screen panel - 08/05/18 03:40 ABO+Rh group OP NRG Transfusion band number [id number] NRG Blood group antibody screen NEGATIVE NRG Complete urinalysis with reflex to culture - 08/05/18 05:42 Urine color determination YELLOW NRG Urine clarity determination SLIGHTLY CLOUDY NRG Urine pH measurement by test strip 5 5-9 Specific gravity of urine by test strip 1.015 1.016- 1.022 Urine protein assay by test [...] erythrocyte count by microscopy (number/high power field) RARE NRG Automated urine sediment leukocyte count by microscopy (number/high power field ) [HPF] NRG Bacteria detection in urine sediment by light microscopy MODERATE NRG Squamous epithelial cells detection in urine sediment by light microscopy NONE NRG Crystals detection in urine sediment by light microscopy NONE NRG Casts detection in urine sediment by light microscopy NONE NRG Mucus detection in urine sediment by light microscopy NEGATIVE NRG Complete urinalysis with reflex to culture YES NRG Bacterial urine culture - 08/05/18 05:42 Bacterial urine culture [id number] NRG COLONY COUNT >100,000/ML NRG FTX;REPORTABLE ID REPORTED 08/06/18 14:05 NRG FREE TEXT ENTRY 2 SUSCEPTIBILITY REPORTED 08-07-18, 1005. NR RML Sensitivity Panel - 08/05/18 05:42 Gentamicin susceptibility test by minimum inhibitory concentration < = NRG Trimethoprim/sulfamethoxazole susceptibility test by minimum inhibitoryconcentration <= NRG Levofloxacin susceptibility test by minimum inhibitory concentration <= NRG Ampicillin susceptibility test by minimum inhibitory concentration < = NRG Cefazolin susceptibility test by minimum inhibitory concentration < = NRG Ceftriaxone susceptibility test by minimum inhibitory concentration <= NRG Ciprofloxacin susceptibility test by minimum inhibitory concentration <= NRG Meropenem susceptibility test by minimum inhibitory concentration < = NRG Nitrofurantoin susceptibility test by minimum inhibitory concentration <= NRG Amoxicillin and clavulanate potassium susc ULISES <= NRG Whole blood hemoglobin and hematocrit panel - 08/05/18 05:58 Venous blood hemoglobin measurement (mass/volume) 5.7 g/dL 11.5-16.0 Blood hematocrit (volume fraction) 17 % 35-52 Bacterial blood culture - 08/05/18 05:58 Bacterial blood culture NG NRG Methicillin resistant Staphylococcus aureus (MRSA) screening culture - 06:18 Methicillin resistant Staphylococcus aureus (MRSA) screening culture NEG NRG Blood lactic acid measurement (moles/volume) - 08/05/18 06:58 Blood lactic acid measurement (moles/volume) 0.61 mmol/L 0.50-2.00 Encounters ACCT No. Visit Date/Time Discharge Status Pt. Type Provider Facility Loc./Unit Complaint [id number] 10/22/2014 17:25:00 10/22/2014 23:59:59 CLS Outpatient HEATHER FINE APRN S [id number] 09/24/2014 16:40:00 09/24/2014 23:59:59 CLS Outpatient HEATHER FINE APRN S [id number] 08/24/2014 17:15:00 08/24/2014 23:59:59 CLS Outpatient HEATHER FINE APRN S [id number] 07/30/2014 17:34:00 07/30/2014 23:59:59 CLS Outpatient HEATHER FINE APRN S [id number] 05/20/2014 16:02:00 05/20/2014 23:59:59 CLS Outpatient MIKE AGIULAR DO [id number] 05/05/2014 16:45:00 05/05/2014 23:59:59 CLS Outpatient JEAN CARLOS LAGOS APRNROMAINE Avalos [id number] 04/22/2014 14:28:00 04/22/2014 23:59:59 CLS Outpatient HEATHER FINE APRN S [id number] 03/12/2014 17:42:00 03/12/2014 23:59:59 CLS Outpatient CARINA FINE APRNA S [id number] 12/15/2013 14:44:00 12/15/2013 23:59:59 CLS Outpatient CARINA FINE APRNA S [id number] 11/19/2013 15:56:00 11/19/2013 23:59:59 CLS Outpatient HEATHER FINE APRN S [id number] 08/25/2013 15:40:00 08/25/2013 23:59:59 CLS Outpatient HEATHER FINE APRN S [id number] 08/23/2013 14:39:00 08/23/2013 23:59:59 CLS Outpatient HEATHER FINE APRN S [id number] 08/14/2013 13:35:00 08/14/2013 23:59:59 CLS Outpatient MERCEDES JENNINGS DDS Priscilla [id number] 06/30/2013 09:40:00 06/30/2013 23:59:59 CLS Outpatient HEATHER FINE APRN [id number] 05/28/2013 16:45:00 05/28/2013 23:59:59 CLS Outpatient LAUREN TENAMIKE [id number] 03/17/2013 15:15:00 03/17/2013 23:59:59 CLS Outpatient LAUREN TENAMIKE [id number] 11/13/2012 13:24:00 11/13/2012 23:59:59 CLS Outpatient TRAM LAGOS APRN [id number] 10/01/2012 08:32:00 10/01/2012 23:59:59 CLS Outpatient MIROSLAVA HILL MD [id number] 09/18/2012 13:26:00 09/18/2012 23:59:59 CLS Outpatient [id number] 07/09/2012 14:49:00 07/09/2012 23:59:59 CLS Outpatient HEATHER FINE APRN [id number] 05/23/2012 17:22:00 05/23/2012 23:59:59 CLS Outpatient HEATHER FINE APRN [id number] 12/31/2012 15:11:00 Document Registration [id number] 12/02/2012 09:05:00 Document Registration [id number] 08/05/2018 04:27:00 08/05/2018 10:49:00 DIS Outpatient OLIVER AMOS MD [facility] ICU DEHYDRATION; VIRAL GASTROENTERITIS [id number] 03/07/2018 14:01:00 03/12/2018 00:01:00 DIS Outpatient ROXANA BENÍTEZ MD [facility] ONC [id number] 10/11/2017 10:16:00 12/05/2017 00:01:00 DIS Outpatient ROXANA BENÍTEZ MD [facility] ONC [id number] 10/11/2017 09:27:00 10/11/2017 23:59:59 CLS Outpatient ARMIDA SCHULTZ APRN [facility] RAD ALCOHOLIC CIRRHOSIS OF LIVER WO ASCITES [id number] 03/01/2017 14:52:00 05/12/2017 00:01:00 DIS Outpatient MARLO BRYANT MD [facility] ONC [id number] 04/19/2017 08:49:00 04/19/2017 23:59:59 CLS Outpatient MARLO BRYANT MD [facility] RAD SPLENOMEGALY [id number] 04/12/2017 14:28:00 04/12/2017 23:59:59 CLS Outpatient HEATHER FINE [facility] RAD Z12.31 BREAST CANCER SCREENING [id number] 08/21/2016 14:28:00 11/19/2016 00:01:00 DIS Outpatient MARLO BRYANT MD [facility] ONC [id number] 10/01/2016 21:32:00 10/02/2016 01:53:00 DIS Emergency YARIEL ROBLES MD [facility] ER COLD SWEATS, N/V, LEG NUMBNESS [id number] 08/16/2016 09:19:00 08/16/2016 23:59:59 CLS Outpatient CHRISTOPHER ZHENG MD [facility] RAD ALCOHLIC CIRRHOSIS OF LIVER WO ASCITES (HCC) [id number] 06/10/2016 15:16:00 06/10/2016 19:17:00 DIS Emergency AZUL EMMANUEL [facility] ER HEAD/NECK/BACK/LEG PAIN [id number] 01/20/2016 13:39:00 04/19/2016 00:01:00 DIS Outpatient MARLO BRYANT MD [facility] ONC [id number] 03/01/2016 16:54:00 03/01/2016 19:49:00 DIS Emergency KOSTA MAGANA [facility] ER DENTAL PAIN [id number] 01/24/2016 10:08:00 01/24/2016 23:59:59 CLS Outpatient MARLO BRYANT MD [facility] RAD SPLEENOMEGALY [id number] 10/21/2015 13:12:00 01/11/2016 00:01:00 DIS Outpatient MALRO BRYANT MD [facility] ONC [id number] 03/23/2015 10:42:00 05/12/2015 00:01:00 DIS Outpatient MARLO BRYANT MD [facility] ONC [id number] 05/09/2015 14:07:00 05/09/2015 15:49:00 DIS Emergency STU YAN MD [facility] ER FOOT PAIN [id number] 11/23/2014 14:06:00 01/24/2015 00:01:00 DIS Outpatient MARLO BRYANT MD [facility] ONC [id number] 01/14/2015 21:38:00 01/15/2015 00:50:00 DIS Emergency YARIEL ROBLES MD [facility] ER DENTAL PAIN [id number] 01/08/2015 13:52:00 01/08/2015 23:59:59 CLS Outpatient CHRISTOPHER ZHENG MD [facility] LAB [id number] 01/07/2015 07:06:00 01/07/2015 23:59:59 CLS Outpatient CHRISTOPHER ZHENG MD [facility] RAD CIRRHOSIS OF LIVER [id number] 07/25/2014 13:24:00 07/25/2014 15:17:00 DIS Emergency STU YAN MD [facility] ER POST OP ABD BLOATING [id number] 07/20/2014 14:30:00 07/20/2014 23:59:59 CLS Outpatient MARLO BRYANT MD [facility] ONC [id number] 07/12/2014 11:48:00 07/12/2014 15:00:00 DIS Emergency DORIS GARCIA APRN [facility] ER VOMITING BLOOD [id number] 06/20/2014 04:41:00 06/20/2014 06:36:00 DIS Emergency VINCE HANNA DO [facility] ER PAIN ALL OVER,VOMITING, FLU SHOT ON 06-15-14 [id number] 06/18/2014 17:54:00 06/18/2014 20:23:00 DIS Emergency DORIS GARCIA TAR POT WORKER [facility] ER BODY ACHES, ABD PAIN [id number] 06/01/2014 14:33:00 06/01/2014 23:59:59 CLS Outpatient MARLO BRYANT MD [facility] ONC [id number] 03/21/2014 19:28:00 03/21/2014 20:47:00 DIS Emergency AMY MCCLAIN MD [facility] ER VOMITING [id number] 02/21/2014 17:35:00 02/21/2014 18:16:00 DIS Emergency DORIS GARCIA TAR POT WORKER [facility] ER COUGH [id number] 01/20/2014 13:50:00 01/20/2014 23:59:59 CLS Outpatient MARLO BRYANT MD [facility] ONC [id number] 01/04/2014 13:47:00 01/04/2014 15:32:00 DIS Emergency KOSTA MAGANA [facility] ER DENTAL PAIN [id number] 01/03/2014 16:44:00 01/03/2014 17:04:00 DIS Emergency DORIS GARCIA TAR POT WORKER [facility] ER L SIDE DENTAL PAIN [id number] 12/29/2013 09:10:00 12/29/2013 23:59:59 CLS Outpatient MARLO BRYANT MD [facility] RAD SPLEENOMEGALY [id number] 12/03/2013 14:13:00 12/03/2013 23:59:59 CLS Outpatient MARLO BRYANT MD [facility] ONC [id number] 09/18/2013 07:34:00 09/18/2013 11:00:00 DIS Outpatient NAWAF TORRES MD [facility] SDC ESOPHAGEAL [id number] 09/17/2013 07:34:00 09/17/2013 23:59:59 CLS Outpatient NAWAF TORRES MD [facility] PREOP ESOPHAGEAL [id number] 08/24/2013 13:09:00 08/24/2013 17:57:00 DIS Emergency TETO BLAND MD [facility] ER DENTAL PAIN [id number] 12/23/2012 13:16:00 12/23/2012 23:59:59 CLS Outpatient MARLO BRYANT MD [facility] ONC [id number] 08/14/2018 15:46:00 ACT Outpatient ROXANA BENÍTEZ MD [facility] RAD [id number] 08/14/2018 14:02:00 ACT Outpatient ROXANA BENÍTEZ MD [facility] ONC [id number] 07/30/2014 13:27:00 Document Registration [id number] 08/25/2012 20:42:00 Document Registration [id number] 05/08/2012 10:20:00 Document Registration [id number] 05/08/2012 09:47:00 Document Registration [id number] 04/11/2012 22:56:00 Document Registration [id number] 04/10/2012 08:23:00 Document Registration [id number] 01/04/2011 09:00:00 Document Registration [id number] 10/31/2010 18:36:00 Document Registration [id number] 04/19/2010 20:52:00 Document Registration [id number] 01/21/2010 00:53:00 Document Registration [id number] 01/16/2010 00:53:00 Document Registration [id number] 05/10/2015 02:26:08 ACT Document Registration [id number] 04/05/2017 15:09:00 Document Registration [id number] 07/29/2018 15:20:00 07/29/2018 23:59:59 CLS Outpatient HEATHER FINE APRN [facility] [id number] 03/04/2018 14:00:00 Document Registration [id number] 07/16/2017 13:40:00 Document Registration [id number] 04/02/2017 15:20:00 Document Registration
[2018-08-15] MEDS ORDERED: LIDOCAINE 1% INJ 20 ML 20 ML VIAL ONE (17:03)
[2018-08-15] MEDS ORDERED: LIDOCAINE 1% INJ 20 ML 20 ML VIAL INJ ONE (17:05)
--- NOTE | 2018-08-15 17:26 | Progress Note-Post Operative ---
Post-Operative Progess Note Surgeon (s)/Licensed Life And Health Agent (s) Surgeon URIEL MONTES MD Licensed Life And Health Agent: none Pre-Operative Diagnosis liver cirrhosis and symptomatic ascites Post-Operative Diagnosis same Procedure & Operative Findings Date of Procedure 08/15/18 Procedure Performed/Findings paracentesis. Anesthesia Type local Estimated Blood Loss Estimated blood loss (mL): minimal Specimens/Packing Specimens Removed none URIEL MONTES MD Aug 15, 2018 17:26
--- NOTE | 2018-08-15 17:59 | HISTORY AND PHYSICAL ---
DATE OF SERVICE: ATTENDING PRIMARY OPENING MACHINE CLEANER: Judy Harrison APRN. HISTORY OF PRESENT ILLNESS: The patient is a 53-year-old female who presented to the Emergency Department with symptomatic ascites. She had recently been at [facility] for a workup and evaluation for known history alcoholic liver cirrhosis. She has been medically treated and on spironolactone as well as Lasix and beta destinee. She has had symptomatic ascites before requiring paracentesis; however, she states that this was approximately 2-3 years ago. She has also undergone upper endoscopy and found to have esophageal varices and has undergone variceal banding procedures in the past. She was seen recently at [facility] and has had worsening abdominal distention. She underwent an ultrasound and marking for paracentesis to be done here close to home. She states that she is otherwise doing well, tolerating a regular diet, having normal bowel movements and does not report any significant abdominal pain. PAST MEDICAL HISTORY: Liver cirrhosis diagnosed in 2009, history of esophageal varices. PAST SURGICAL HISTORY: 1. section in 2000. 2. Right salpingo-oophorectomy in 2001. ALLERGIES: SULFA. MEDICATIONS: Spironolactone, Lasix, nadolol, lorazepam. SOCIAL HISTORY: Previous alcohol, quit in 2009, previous smoke 16 pack years, quit in 2009. FAMILY HISTORY: Mother with breast cancer. REVIEW OF SYSTEMS: Well-nourished female, in no acute distress. She is not experiencing any shortness of breath or difficulty breathing. No chest pain, palpitations or diaphoresis. No nausea or vomiting, no diarrhea or constipation. No fever or chills, no recent inadvertent weight loss. All other review of systems is negative. PHYSICAL EXAMINATION: VITAL SIGNS: Temperature is 98.4, blood pressure 113/41, pulse 68, respirations 16, and pulse ox 100% on room air. CHEST: Clear. Good breath sounds bilaterally. HEART: Regular, no murmurs. EXTREMITIES: No lower extremity edema, negative Homans sign. HEENT: No scleral icterus. NECK: No cervical lymphadenopathy. ABDOMEN: Soft, distended with a positive fluid shift wave. There are no peritoneal signs. She does have a small umbilical hernia, which is easily reducible. SKIN: Warm, dry. ASSESSMENT AND PLAN: A 53-year-old female with a history of liver cirrhosis and recurrent symptomatic ascites. She has already undergone ultrasound and marking at [facility] and presented for paracentesis to be done closer to home. We will proceed with paracentesis and once she is asymptomatic and have the catheter withdrawn, covered with gauze and Op-Site and she may be discharged home. Job ID: [id number] DocumentID: [id number] Dictated Date: 08/15/2018 17:30:44 Customs Port Director Date: 08/15/2018 17:58:39 Dictated By: URIEL MONTES MD [facility]
[2018-08-15 19:30] VITALS: BP 107/59
--- NOTE | 2018-08-16 03:33 | OPERATIVE REPORT ---
DATE OF SERVICE: 08/15/2018 ATTENDING PROCESS TANK TENDER: Judy Harrison APRN PREPROCEDURE DIAGNOSIS: Recurrent symptomatic ascites secondary to liver cirrhosis. POSTPROCEDURE DIAGNOSIS: Recurrent symptomatic ascites secondary to liver cirrhosis. PROCEDURE: Paracentesis. SURGEON: Uriel Montes MD ANESTHESIA: Local. ESTIMATED BLOOD LOSS: Minimal. FINDINGS: Straw yellow clear transudative fluid. DISPOSITION: The patient tolerated the procedure well. INDICATIONS: The patient is a 53-year-old female with a known history of liver cirrhosis diagnosed in 2009 secondary to alcohol. Since that time, she has proceeded with alcohol cessation. She has been followed at [facility] for her liver cirrhosis and is being medically treated. She was recently seen and evaluated and underwent an EGD. She states that there were a few new esophageal varices identified, which sounded to have been banded. She also had reported with abdominal distention over time, which is becoming comfortable. An ultrasound was performed and marked for ascites and for paracentesis closer to home. She reports that she has had one before done approximately two years ago. DESCRIPTION OF PROCEDURE: The patient's abdomen was prepped and draped in standard surgical fashion along the marking in the right lower abdominal quadrant. The skin, subcutaneous tissue, muscle layers fascia and peritoneal lining were then anesthetized using 1% lidocaine. A small vertical skin incision was made using 11 blade. The catheter and trocar were then introduced withdrawing of straw yellow clear transudative fluid. The catheter was then guided over the trocar without any resistance. The catheter was then connected to the tubing and gravity drainage bag and fixed to the skin using 2 large Op-Sites. The patient tolerated the procedure well. Once she is asymptomatic and her abdomen is significantly less distended and there is minimal drainage, the catheter may be removed, recovered with sterile gauze followed by new Op-Site and discharged home. Job ID: [id number] DocumentID: [id number] Dictated Date: 08/15/2018 17:33:54 Willow Analyst Date: 08/16/2018 03:32:28 Dictated By: URIEL MONTES MD
== END 2018-08-15 19:30 | disposition home or self-care (01) ==
LOC: EDUNIT# 14:24 → ER 14:25
DX: R18.8 Other ascites (principal); Z87.19 Personal history of other diseases of the digestive system; Z98.890 Other specified postprocedural states; Z90.721 Acquired absence of ovaries, unilateral; Z88.2 Allergy status to sulfonamides; Z87.891 Personal history of nicotine dependence; Z80.3 Family history of malignant neoplasm of breast

== ENCOUNTER → 2018-09-18 | Outpatient (CLI) | payer OTHER ==
[~2018-09-18] MED LIST changes: +LIDOCAINE 1% INJ 20 ML 20 ML VIAL INJ ONE
== END ==
LOC: RAD 11:55
PROVIDERS: ATTEND Surgery
DX: R18.8 Other ascites (principal)

== ENCOUNTER → 2019-02-05 | Outpatient (CLI) | payer SELFPAY ==
[~2019-02-05] MED LIST changes: -LIDOCAINE 1% INJ 20 ML 20 ML VIAL INJ ONE
[2019-02-05 13:55] LABS: BASOPHILS % (AUTO) 1 % (0-10); EOSINOPHILS # (AUTO) 0.1 10^3/uL (0.0-0.3); EOSINOPHILS % (AUTO) 3 % (0-10); HEMATOCRIT 38 % (35-52); HEMOGLOBIN 12.9 G/DL (11.5-16.0); LYMPHOCYTES # (AUTO) 0.7 X 10^3 (1.0-4.0); LYMPHOCYTES % (AUTO) 20 % (12-44); MEAN CORPUSCULAR HEMOGLOBIN 29 PG (25-34); MEAN CORPUSCULAR HGB CONC 34 G/DL (32-36); MEAN CORPUSCULAR VOLUME 86 FL (80-99); MEAN PLATELET VOLUME 9.9 FL (7.4-10.4); MONOCYTES # (AUTO) 0.3 X 10^3 (0.0-1.0); MONOCYTES % (AUTO) 8 % (0-12); NEUTROPHILS # (AUTO) 2.4 X 10^3 (1.8-7.8); NEUTROPHILS % (AUTO) 68 % (42-75); PLATELET COUNT 68 10^3/uL (130-400); WHITE BLOOD COUNT 3.4 10^3/uL (4.3-11.0)
[2019-02-05 14:18] LABS: ALANINE AMINOTRANSFERASE 27 U/L (0-55); ALBUMIN 4.3 GM/DL (3.2-4.5); ALKALINE PHOSPHATASE 103 U/L (40-136); BILIRUBIN,TOTAL 1.1 MG/DL (0.1-1.0); BUN/CREATININE RATIO 19; CALCIUM 9.9 MG/DL (8.5-10.1); CARBON DIOXIDE 26 MMOL/L (21-32); CHLORIDE 100 MMOL/L (98-107); CREATININE SERUM 0.91 MG/DL (0.60-1.30); GFR ESTIMATED > 60; GLUCOSE 99 MG/DL (70-105); POTASSIUM 4.1 MMOL/L (3.6-5.0); SODIUM 134 MMOL/L (135-145); TOTAL PROTEIN 7.5 GM/DL (6.4-8.2)
== END ==
LOC: EDSTATUS 11-13 13:26 → ONC 13:30
PROVIDERS: ATTEND Internal Medicine Hematology & Oncology
DX: D69.6 Thrombocytopenia, unspecified (principal); D72.819 Decreased white blood cell count, unspecified; D50.9 Iron deficiency anemia, unspecified; B18.2 Chronic viral hepatitis C; K70.30 Alcoholic cirrhosis of liver without ascites; I85.10 Secondary esophageal varices without bleeding; R16.1 Splenomegaly, not elsewhere classified; F10.21 Alcohol dependence, in remission; Z79.899 Other long term (current) drug therapy; Z87.891 Personal history of nicotine dependence
CPT/HCPCS: 36415; 80053; 82105; 82728; 85025; 99213

== ENCOUNTER → 2019-03-05 | Outpatient (CLI) | payer OTHER ==
--- NOTE | 2019-03-05 12:05 | Diagnostic Imaging Report ---
PROCEDURE: US Abdomen, limited. TECHNIQUE: Multiple realtime grayscale images were obtained over the abdomen in various projections. INDICATION: Cirrhosis. FINDINGS: The previous abdominal ultrasound exam performed on 08/14/2018 noted a large amount of ascites. On this exam, however, there is no sign of ascites. The liver is not enlarged and the liver has a heterogeneous appearance. There is no focal mass involving the liver and the biliary tree is not abnormally dilated. Spectral and color flow imaging of the portal vein shows that the vein is patent and that there is normal directional flow within the vein. The gallbladder wall is at the upper limits of normal in thickness. However, there is no pericholecystic fluid collection to suggest acute cholecystitis. There is no evidence for cholelithiasis. The common bile duct is not dilated. The right kidney is unremarkable. The pancreas, aorta, and inferior vena cava are partially obscured by bowel gas. IMPRESSION: 1. The ascites noted on prior exam is no longer evident. 2. There is no acute abnormality of the right upper quadrant. 3. If clinical concern regarding an acute abnormality of the gallbladder persists and further images are desired, then a nuclear medicine hepatobiliary scan will be recommended. Dictated by: Dictated on workstation # [id number]
== END ==
LOC: RAD 08:42
PROVIDERS: ATTEND Internal Medicine Hematology & Oncology
DX: K74.60 Unspecified cirrhosis of liver (principal)
CPT/HCPCS: 76705

== ENCOUNTER → 2019-07-28 | Outpatient (CLI) | payer OTHER ==
--- NOTE | 2019-07-28 10:12 | Diagnostic Imaging Report ---
EXAMINATION: US Abdomen limited. TECHNIQUE: Multiple real-time grayscale images were obtained over the right upper quadrant in various projections. REASON FOR EXAM: CIRRHOSIS OF LIVER COMPARISON: 03/05/2019. FINDINGS: The liver has a micronodular contour with coarse and heterogeneous echogenicity throughout. No focal hepatic lesions are identified. No intrahepatic biliary dilatation is present. The common bile duct is not dilated and measures 4 mm. The main portal vein is hepatopedal. No ascites is present in the upper abdomen. There is no evidence of cholelithiasis or pericholecystic fluid. The gallbladder wall is mildly thickened, likely secondary to cirrhotic changes in the liver. Sonographic Santoyo's sign is negative. The visualized portion of the head of the pancreas are within normal limits. The body and tail of the pancreas are not well visualized due to overlying bowel gas. The visualized portions of the IVC and aorta appear normal. The right kidney measures approximately 10.9 cm in length and has a normal appearance. IMPRESSION: 1. Cirrhotic morphology of the liver. No focal hepatic lesions. No evidence of ascites. The portal vein is patent and demonstrates hepatopetal flow. 2. Mildly thickened gallbladder wall, likely secondary to cirrhosis. No evidence of cholelithiasis or acute cholecystitis. Dictated by: Dictated on workstation # [id number]
== END ==
LOC: RAD 09:01
PROVIDERS: ATTEND Internal Medicine Hematology & Oncology
DX: K70.30 Alcoholic cirrhosis of liver without ascites (principal)
CPT/HCPCS: 76705

== ENCOUNTER 2019-07-31 14:29 | Outpatient (RCR) | payer OTHER ==
[2019-07-17 14:53] LABS: BASOPHILS % (AUTO) 1 % (0-10); EOSINOPHILS # (AUTO) 0.1 10^3/uL (0.0-0.3); EOSINOPHILS % (AUTO) 3 % (0-10); HEMATOCRIT 37 % (35-52); HEMOGLOBIN 12.5 G/DL (11.5-16.0); LYMPHOCYTES # (AUTO) 0.8 X 10^3 (1.0-4.0); LYMPHOCYTES % (AUTO) 24 % (12-44); MEAN CORPUSCULAR HEMOGLOBIN 29 PG (25-34); MEAN CORPUSCULAR HGB CONC 34 G/DL (32-36); MEAN CORPUSCULAR VOLUME 85 FL (80-99); MEAN PLATELET VOLUME 10.2 FL (7.4-10.4); MONOCYTES # (AUTO) 0.3 X 10^3 (0.0-1.0); MONOCYTES % (AUTO) 10 % (0-12); NEUTROPHILS % (AUTO) 63 % (42-75); PLATELET COUNT 59 10^3/uL (130-400); WHITE BLOOD COUNT 3.2 10^3/uL (4.3-11.0)
[2019-07-17 15:16] LABS: BUN/CREATININE RATIO 15; CARBON DIOXIDE 25 MMOL/L (21-32); CHLORIDE 102 MMOL/L (98-107); CREATININE SERUM 0.84 MG/DL (0.60-1.30); POTASSIUM 3.7 MMOL/L (3.6-5.0); SODIUM 136 MMOL/L (135-145)
[2019-07-17 15:17] LABS: ALANINE AMINOTRANSFERASE 28 U/L (0-55); ALBUMIN 4.3 GM/DL (3.2-4.5); ALKALINE PHOSPHATASE 90 U/L (40-136); BILIRUBIN,TOTAL 1.2 MG/DL (0.1-1.0); CALCIUM 9.5 MG/DL (8.5-10.1); GFR ESTIMATED > 60; GLUCOSE 86 MG/DL (70-105); TOTAL PROTEIN 7.5 GM/DL (6.4-8.2)
== END 2019-10-15 | disposition home or self-care (01) ==
LOC: ONC 14:29
PROVIDERS: ATTEND Internal Medicine Hematology & Oncology
DX: D69.6 Thrombocytopenia, unspecified (principal); D72.819 Decreased white blood cell count, unspecified; D50.9 Iron deficiency anemia, unspecified; B18.2 Chronic viral hepatitis C; K70.30 Alcoholic cirrhosis of liver without ascites; I85.10 Secondary esophageal varices without bleeding; R16.1 Splenomegaly, not elsewhere classified; F10.21 Alcohol dependence, in remission; Z79.899 Other long term (current) drug therapy; Z87.891 Personal history of nicotine dependence
CPT/HCPCS: 80053; 82105; 82728; 85025; 99213

== ENCOUNTER → 2020-01-28 | Outpatient (CLI) | payer SELFPAY ==
[~2020-01-28] MED LIST changes: -OXYC-529; +OXYC5TAB96
[2020-01-28 12:09] LABS: BASOPHILS % (AUTO) 1 % (0-10); EOSINOPHILS # (AUTO) 0.1 10^3/uL (0.0-0.3); EOSINOPHILS % (AUTO) 4 % (0-10); HEMATOCRIT 40 % (35-52); HEMOGLOBIN 13.4 G/DL (11.5-16.0); LYMPHOCYTES # (AUTO) 0.6 X 10^3 (1.0-4.0); LYMPHOCYTES % (AUTO) 16 % (12-44); MEAN CORPUSCULAR HEMOGLOBIN 29 PG (25-34); MEAN CORPUSCULAR HGB CONC 34 G/DL (32-36); MEAN CORPUSCULAR VOLUME 86 FL (80-99); MEAN PLATELET VOLUME 10.1 FL (7.4-10.4); MONOCYTES # (AUTO) 0.4 X 10^3 (0.0-1.0); MONOCYTES % (AUTO) 9 % (0-12); NEUTROPHILS # (AUTO) 2.7 X 10^3 (1.8-7.8); NEUTROPHILS % (AUTO) 70 % (42-75); PLATELET COUNT 69 10^3/uL (130-400); WHITE BLOOD COUNT 3.8 10^3/uL (4.3-11.0)
[2020-01-28 12:29] LABS: ALANINE AMINOTRANSFERASE 30 U/L (0-55); ALBUMIN 4.3 GM/DL (3.2-4.5); ALKALINE PHOSPHATASE 112 U/L (40-136); BILIRUBIN,TOTAL 1.3 MG/DL (0.1-1.0); BUN/CREATININE RATIO 17; CALCIUM 9.7 MG/DL (8.5-10.1); CARBON DIOXIDE 29 MMOL/L (21-32); CHLORIDE 102 MMOL/L (98-107); CREATININE SERUM 0.88 MG/DL (0.60-1.30); GFR ESTIMATED > 60; GLUCOSE 74 MG/DL (70-105); SODIUM 137 MMOL/L (135-145); TOTAL PROTEIN 7.9 GM/DL (6.4-8.2)
== END ==
LOC: EDSTATUS 10-16 14:38 → ONC 11:57
PROVIDERS: ATTEND Internal Medicine Hematology & Oncology
DX: D72.819 Decreased white blood cell count, unspecified (principal); D69.6 Thrombocytopenia, unspecified; R16.1 Splenomegaly, not elsewhere classified
CPT/HCPCS: 80053; 82105; 82728; 85025

== ENCOUNTER → 2020-02-17 | Outpatient (CLI) | payer OTHER ==
--- NOTE | 2020-02-17 11:23 | Diagnostic Imaging Report ---
INDICATION: Liver cirrhosis TECHNIQUE: Multiple grayscale sonographic images were obtained of the right upper quadrant of the abdomen. CORRELATION STUDY: None FINDINGS: LIVER: Heterogeneous echotexture through liver parenchyma. Liver size small, 13 cm. The portal vein appears to be dilated. Continued normal direction of flow. GALLBLADDER: Borderline gallbladder wall thickening at 3 mm. No definitive shadowing gallstones. COMMON BILE DUCT: Nondilated at 5 mm. PANCREAS: Pancreatic duct very mildly prominent. Pancreas otherwise unremarkable. RIGHT KIDNEY: Measures 9.5 x 5.0 x 3.9 cm. No hydronephrosis. AORTA/IVC: Not well visualized. OTHER: None. IMPRESSION: 1. Heterogeneous appearance about the liver parenchyma which is somewhat small compatible with chronic liver disease. 2. Dilated portal vein. Findings do suggest potential for early portal hypertension. No appreciable upper abdominal ascites. Dictated by: Dictated on workstation # [id number]
== END ==
LOC: RAD 09:44
PROVIDERS: ATTEND Internal Medicine Hematology & Oncology
DX: K74.60 Unspecified cirrhosis of liver (principal); I85.10 Secondary esophageal varices without bleeding; B18.2 Chronic viral hepatitis C; I86.8 Varicose veins of other specified sites
CPT/HCPCS: 76705

== ENCOUNTER → 2020-02-19 | Outpatient (CLI) | payer OTHER | LOC: ONC 13:58 | PROVIDERS: ATTEND Internal Medicine Hematology & Oncology | DX: K74.60 Unspecified cirrhosis of liver (principal); I85.10 Secondary esophageal varices without bleeding; D72.819 Decreased white blood cell count, unspecified; F10.10 Alcohol abuse, uncomplicated; D69.6 Thrombocytopenia, unspecified; R16.1 Splenomegaly, not elsewhere classified | CPT/HCPCS: 99213 ==

== ENCOUNTER → 2020-02-24 | Outpatient (CLI) | payer OTHER | LOC: LABNPT 02-23 06:33 | PROVIDERS: ATTEND Internal Medicine | DX: Z20.828 Contact with and (suspected) exposure to other viral communicable diseases (principal) | CPT/HCPCS: 87635 ==

== ENCOUNTER → 2020-06-24 | Outpatient (CLI) | payer OTHER ==
[~2020-06-24] MED LIST changes: +OXC5T; -OXYC5TAB96
== END ==
LOC: LABNPT 06:34
PROVIDERS: ATTEND Internal Medicine
DX: Z53.9 Procedure and treatment not carried out, unspecified reason (principal)

== ENCOUNTER → 2020-06-25 | Outpatient (CLI) | payer OTHER | LOC: LABNPT 08:48 | PROVIDERS: ATTEND Internal Medicine | DX: Z20.828 Contact with and (suspected) exposure to other viral communicable diseases (principal) | CPT/HCPCS: 87635 ==

== ENCOUNTER → 2020-09-13 | Outpatient (CLI) | payer OTHER ==
--- NOTE | 2020-09-13 11:11 | Diagnostic Imaging Report ---
INDICATION: Cirrhosis and splenomegaly. PROCEDURE: Ultrasound abdomen complete. TECHNIQUE: Multiple real-time grayscale images were obtained of the abdomen in various projections. FINDINGS: Liver measures 13 cm. No discrete liver mass is detected. Portal vein is patent and shows normal direction of flow. Gallbladder does demonstrate wall thickening which could be owing to hepatic dysfunction. No definite stones are identified. There is trace pericholecystic fluid. Extrahepatic bile duct is normal in diameter. The visualized pancreas is unremarkable. The spleen is enlarged measuring up to 20 cm. Aorta is nonaneurysmal. IVC is patent. The kidneys are without calculi or hydronephrosis. There is no ascites. IMPRESSION: 1. No discrete liver mass is identified. 2. Gallbladder wall thickening and minimal pericholecystic fluid which can be owing to hepatic dysfunction. 3. Splenomegaly. There is no evidence of ascites. Dictated by: Dictated on workstation # [id number]
== END ==
LOC: RAD 08:53
PROVIDERS: ATTEND Internal Medicine Hematology & Oncology
DX: K82.8 Other specified diseases of gallbladder (principal); D73.2 Chronic congestive splenomegaly
CPT/HCPCS: 76700

== ENCOUNTER → 2020-09-17 | Outpatient (CLI) | payer OTHER ==
[2020-09-17 14:12] LABS: BASOPHILS % (AUTO) 1 % (0-10); EOSINOPHILS # (AUTO) 0.1 10^3/uL (0.0-0.3); EOSINOPHILS % (AUTO) 3 % (0-10); HEMATOCRIT 38 % (35-52); HEMOGLOBIN 12.8 g/dL (11.5-16.0); LYMPHOCYTES # (AUTO) 0.7 10^3/uL (1.0-4.0); LYMPHOCYTES % (AUTO) 20 % (12-44); MEAN CORPUSCULAR HEMOGLOBIN 29 pg (25-34); MEAN CORPUSCULAR HGB CONC 33 g/dL (32-36); MEAN CORPUSCULAR VOLUME 87 fL (80-99); MEAN PLATELET VOLUME 10.6 fL (9.0-12.2); MONOCYTES # (AUTO) 0.3 10^3/uL (0.0-1.0); MONOCYTES % (AUTO) 8 % (0-12); NEUTROPHILS # (AUTO) 2.4 10^3/uL (1.8-7.8); NEUTROPHILS % (AUTO) 68 % (42-75); PLATELET COUNT 60 10^3/uL (130-400); WHITE BLOOD COUNT 3.5 10^3/uL (4.3-11.0)
[2020-09-17 14:28] LABS: ALBUMIN 4.2 GM/DL (3.2-4.5); BILIRUBIN,TOTAL 1.5 MG/DL (0.1-1.0); CALCIUM 9.7 MG/DL (8.5-10.1); CREATININE SERUM 0.99 MG/DL (0.60-1.30); TOTAL PROTEIN 7.7 GM/DL (6.4-8.2)
== END ==
LOC: ONC 13:29
PROVIDERS: ATTEND Internal Medicine Hematology & Oncology
DX: K74.60 Unspecified cirrhosis of liver (principal); I85.10 Secondary esophageal varices without bleeding; D69.59 Other secondary thrombocytopenia; B18.2 Chronic viral hepatitis C; R16.0 Hepatomegaly, not elsewhere classified; Z87.891 Personal history of nicotine dependence; K70.9 Alcoholic liver disease, unspecified; D72.819 Decreased white blood cell count, unspecified; D69.6 Thrombocytopenia, unspecified; K76.6 Portal hypertension
CPT/HCPCS: 80053; 82105; 85025; G0463; 99213

== ENCOUNTER → 2021-03-02 | Outpatient (CLI) | payer SELFPAY ==
--- NOTE | 2021-03-02 16:32 | Diagnostic Imaging Report ---
PROCEDURE: US left lower extremity venous. TECHNIQUE: Multiple real-time grayscale images were obtained over the left lower extremity in various projections. Additional duplex Doppler and color Doppler images were also obtained. INDICATION: Thigh pain. FINDINGS: Left lower extremity femoropopliteal deep venous system showed normal color flow, normal compressibility, and normal waveforms. No deep or superficial venous thrombus was found, and no mass or fluid collection demonstrated. IMPRESSION: Normal negative unilateral left lower extremity venous Doppler and ultrasound. Dictated by: Dictated on workstation # [id number]
== END ==
LOC: RAD 14:36
PROVIDERS: ATTEND Physician Assistant
DX: M79.652 Pain in left thigh (principal)

== ENCOUNTER → 2021-04-06 | Outpatient (CLI) | payer SELFPAY ==
[~2021-04-06] MED LIST changes: +HYDR2TAB30 PO
[2021-04-06 13:51] LABS: BASOPHILS % (AUTO) 1 % (0-10); MEAN CORPUSCULAR VOLUME 87 fL (80-99)
[2021-04-06 13:53] LABS: EOSINOPHILS # (AUTO) 0.1 10^3/uL (0.0-0.3); EOSINOPHILS % (AUTO) 2 % (0-10); HEMATOCRIT 43 % (35-52); LYMPHOCYTES # (AUTO) 0.5 10^3/uL (1.0-4.0); LYMPHOCYTES % (AUTO) 14 % (12-44); MEAN CORPUSCULAR HEMOGLOBIN 29 pg (25-34); MEAN CORPUSCULAR HGB CONC 33 g/dL (32-36); MEAN PLATELET VOLUME 10.2 fL (9.0-12.2); MONOCYTES # (AUTO) 0.2 10^3/uL (0.0-1.0); MONOCYTES % (AUTO) 6 % (0-12); NEUTROPHILS # (AUTO) 2.6 10^3/uL (1.8-7.8); NEUTROPHILS % (AUTO) 77 % (42-75); PLATELET COUNT 63 10^3/uL (130-400); WHITE BLOOD COUNT 3.4 10^3/uL (4.3-11.0)
[2021-04-06 14:05] LABS: ALBUMIN 4.3 GM/DL (3.2-4.5); BILIRUBIN,TOTAL 1.5 MG/DL (0.1-1.0); CALCIUM 10.1 MG/DL (8.5-10.1); CREATININE SERUM 0.92 MG/DL (0.60-1.30); POTASSIUM 4.2 MMOL/L (3.6-5.0); TOTAL PROTEIN 8.2 GM/DL (6.4-8.2)
== END ==
LOC: ONC 10:18
PROVIDERS: ATTEND Internal Medicine Hematology & Oncology
DX: I85.10 Secondary esophageal varices without bleeding (principal); D69.59 Other secondary thrombocytopenia; B18.2 Chronic viral hepatitis C; R16.2 Hepatomegaly with splenomegaly, not elsewhere classified
CPT/HCPCS: 80053; 82105; 82728; 85025; G0463; 99213

== ENCOUNTER → 2021-04-06 | Outpatient (CLI) | payer SELFPAY ==
--- NOTE | 2021-04-06 11:14 | Diagnostic Imaging Report ---
INDICATION: Cirrhosis. PROCEDURE: Ultrasound abdomen complete. TECHNIQUE: Multiple Real-time grayscale images were obtained of the abdomen in various projections. FINDINGS: The liver is slightly heterogeneous with no focal lesion seen. No gallstones are seen. The gallbladder wall is upper limits of normal with no pericholecystic fluid seen. The bile ducts are not dilated. The pancreas is normal. The spleen is enlarged measuring 16 cm in length. The kidneys are normal. No abnormality of the aorta or IVC is seen. There is no ascites. IMPRESSION: Splenomegaly. No acute abnormality is seen. There is no significant change from a prior study from 09/13/2020. Dictated by: Dictated on workstation # [id number]
== END ==
LOC: RAD 10:00
PROVIDERS: ATTEND Nurse Practitioner Adult Health
DX: K70.30 Alcoholic cirrhosis of liver without ascites (principal); R16.1 Splenomegaly, not elsewhere classified
CPT/HCPCS: 76700

== ENCOUNTER 2021-04-09 20:50 | Emergency (ER) | payer SELFPAY ==
[~2021-04-09] VITALS: Ht 157.4 cm; Wt 45.0 kg
[~2021-04-09 20:50] MED LIST changes: -HYDR2TAB30 PO
[2021-04-09] MEDS ORDERED: CYCLOBENZAPRINE 10 MG (FLEXERIL) TAB PO STA (22:23)
[2021-04-09] MEDS ORDERED: HYDROmorphone (DILAUDID) 2 MG TAB PO ONE (22:30)
--- NOTE | 2021-04-09 22:33 | ED Lower Extremity ---
General Chief Complaint: Lower Extremity Stated Complaint: FALL/LEFT LEG PAIN History of Present Illness Date Seen by Provider: Apr 09, 2021 Time Seen by Provider: 20:15 Initial Comments 55-year-old female reports falling down 3-4 steps at approximately 1600 today. Since then she has been having difficulty walking secondary to pain and discomfort in her left knee. She tried taking oxycodone and tramadol with no improvement in her symptoms. She has chronic history of back problems. She denies any other injuries related to the fall and had no head injury. There are no abrasions or lacerations. Onset: this afternoon Pain/Injury Location: right leg, right knee Method of Injury: fell (AZUL EMMANUEL) Allergies and Home Medications Allergies Coded Allergies: Sulfa (Sulfonamide Antibiotics) (Unverified Allergy, Intermediate, HIVES, 08/27/12) Home Medications Hydromorphone HCl 2 Mg Tablet, 2 MG PO Q8H PRN for PAIN-SEVERE (8-10) Prescribed by: AZUL EMMANUEL on 04/09/21 6168 Patient Home Medication List Home Medication List Reviewed: Yes (AZUL EMMANUEL) Review of Systems Constitutional: no symptoms reported, see HPI Musculoskeletal: see HPI, joint pain (Left knee) (AZUL EMMANUEL) All Other Systems Reviewed Negative Unless Noted: Yes (AZUL EMMANUEL) Past Mxjsgfy-Ijqzkc-Giaciw Hx Immunizations Up To Date Tetanus Booster (TDap): Less than 5yrs PED Vaccines UTD: No (AZUL EMMANUEL) Seasonal Allergies Seasonal Allergies: No (AZUL EMMANUEL) Past Medical History Surgeries: Yes ( SECTION 08/2000, OVARY REMOVED 2000) Section, Oophorectomy Respiratory: Yes COPD Currently Using CPAP: No Currently Using BIPAP: No Cardiac: No Neurological: No 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 Disorders: No Female 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 Disorders: Denies 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 Sexually Transmitted Disease: No HIV/AIDS: No Genitourinary: No Gastrointestinal: Yes (esophageal varices) Gastrointestinal Bleed, Esophageal Varices, Ulcer, Cirrhosis Musculoskeletal: No Endocrine: No HEENT: No Loss of Vision: Denies Hearing Impairment: Denies Cancer: No Psychosocial: No Depression Integumentary: No Blood Disorders: No Adverse Reaction/Blood Tranf: No (AZUL EMMANUEL) Family Medical History Reviewed Nursing Family Hx (AZUL EMMANUEL) No Pertinent Family Hx (AZUL EMMANUEL) Physical Exam Vital Signs Vital Signs - First Documented 04/09/21 22:17 Temp 36.0 Pulse 54 Resp 22 B/P (MAP) 112/55 (74) Pulse Ox 100 O2 Delivery Room Air (YARIEL ROBLES MD) Vital Signs Capillary Refill : (AZUL EMMANUEL) Height, Weight, BMI Height: 5'2.00" Weight: 106lbs. 3.0oz. 48.786093ay; 19.6 BMI Method:Stated General Appearance: WD/WN, no apparent distress Cardiovascular: normal peripheral pulses, regular rate, rhythm Respiratory: chest non-tender, lungs clear Hips: bilateral hip non-tender, bilateral hip normal inspection, bilateral hip normal range of motion, bilateral hip no evidence of injury Knees: bilateral knee normal inspection; right knee normal range of motion; left knee bone tenderness, left knee joint effusion, left knee soft tissue tenderness Neurologic/Psychiatric: no motor/sensory deficits, alert, normal mood/affect, oriented x 3 Skin: normal color, warm/dry (AZUL EMMANUEL) Progress/Results/Core Measures Results/Orders Medications Given in ED Current Medications Medications Dose Ordered Sig/Nabor Route Start Time Stop Time Status Last Admin Dose Admin Hydromorphone HCl 2 mg ONCE ONCE PO 04/09/21 22:30 04/09/21 22:31 DC 04/09/21 22:45 2 MG (YARIEL ROBLES MD) Vital Signs/I&O 04/09/21 04/09/21 22:17 23:35 Temp 36.0 Pulse 54 84 Resp 22 20 B/P (MAP) 112/55 (74) 105/57 Pulse Ox 100 99 O2 Delivery Room Air Room Air (YARIEL ROBLES MD) Progress Progress Note : Time: 20:15 Progress Note Patient seen and evaluated, will obtain x-ray of the left knee. Flexeril for muscle spasms and Dilaudid for pain. 2300 tibial plateau fracture noted on x-ray. Results discussed with the patient. She will be placed in a knee immobilizer and Jc wrap. To use her walker nonweightbearing on the left. She will need to follow-up with orthopedics. (AZUL EMMANUEL) Diagnostic Imaging Diagonstic Imaging: Xray Plain Films/CT/US/NM/MRI: knee Comments Mildly displaced intra-articular medial tibial plateau fracture. NAME: MARY SAUCEDA [facility] REC#: [id number] PT STATUS: REG ER : 1965 PHYSICIAN: AZUL EMMANUEL ADMIT DATE: 04/09/21/ER Draft Date of Exam:04/09/21 KNEE, LEFT, 3 VIEWS INDICATION: Fall. Knee pain. Injury. COMPARISON: None FINDINGS: 3 radiographic views of the left knee were obtained. There is acute fracture of the proximal tibia. Fracture extends from the medial margins of the proximal tibia into the tibial spine. There is slight displacement of fracture fragments. There appears to be mild comminution of the tibial spine as well. Tibiofemoral joint space is maintained. There is moderate joint effusion. No unexpected radiopaque foreign bodies are seen. IMPRESSION: 1. Acute fracture of the proximal left tibia as described above. Dictated on workstation # [id number] Dict: 04/09/21 2303 Trans: 04/09/21 2307 [facility] [id number] Interpreted by: LANCE TATUM MD Electronically signed by: Reviewed: Reviewed by Me (AZUL EMMANUEL) Departure Impression Primary Impression: Fall on stairs Qualified Codes: W10.9XXA - Fall (on) (from) unspecified stairs and steps, initial encounter Additional Impressions: Knee pain Qualified Codes: M25.562 - Pain in left knee Tibial plateau fracture, left Qualified Codes: S82.142A - Displaced bicondylar fracture of left tibia, initial encounter for closed fracture Disposition: 01 HOME, SELF-CARE Condition: Stable Departure-Patient Inst. Decision time for Depature: 23:00 (AZUL EMMANUEL) Referrals: MIROSLAVA ABBASI (PCP/Family) Primary Care Physician Patient Instructions: Knee Sprain (DC) Add. Discharge Instructions: Ice and elevate left knee. Jc wrap to left knee and knee immobilizer. Use walker, non-weight bearing to your left leg. You will need to see orthopedics, you can call [address] in [place] or the Orthopedic Surgeons at [facility], [facility] or [place] Take the disc with your x-rays to the appt. Ice to left knee, 20 min every 2 hours, while awake. Return to the emergency department for new, urgent healthcare needs. All discharge instructions reviewed with patient and/or family. Voiced understanding. Scripts Hydromorphone HCl (Dilaudid) 2 Mg Tablet 2 MG PO Q8H PRN for PAIN-SEVERE (8-10), #20 TAB 0 Refills Prov: AZUL EMMANUEL 04/09/21 ATTENDING PHYSICIAN NOTE: I was physically present as attending physician in the emergency department during the care of this patient, but I was not directly involved in the decision making or delivery of care for this patient. (YARIEL ROBLES MD) AZUL EMMANUEL Apr 09, 2021 22:33 YARIEL ROBLES MD Apr 10, 2021 07:41
--- NOTE | 2021-04-09 23:07 | Diagnostic Imaging Report ---
INDICATION: Fall. Knee pain. Injury. COMPARISON: None FINDINGS: 3 radiographic views of the left knee were obtained. There is acute fracture of the proximal tibia. Fracture extends from the medial margins of the proximal tibia into the tibial spine. There is slight displacement of fracture fragments. There appears to be mild comminution of the tibial spine as well. Tibiofemoral joint space is maintained. There is moderate joint effusion. No unexpected radiopaque foreign bodies are seen. IMPRESSION: 1. Acute fracture of the proximal left tibia as described above. Dictated by: Dictated on workstation # [id number]
[2021-04-09] MEDS ORDERED: HYDR2TAB30 PO (23:08)
[2021-04-09 23:35] VITALS: BP 105/57
== END 2021-04-09 23:35 | disposition home or self-care (01) ==
LOC: EDUNIT# 20:50 → ER 20:54
DX: S82.142A Displaced bicondylar fracture of left tibia, initial encounter for closed fracture (principal); J44.9 Chronic obstructive pulmonary disease, unspecified; W10.8XXA Fall (on) (from) other stairs and steps, initial encounter
CPT/HCPCS: 73562

== ENCOUNTER 2021-06-14 16:11 | Emergency (ER) | payer OTHER ==
[~2021-06-14] VITALS: Ht 157.4 cm; Wt 45.0 kg
[~2021-06-14 16:11] MED LIST changes: +HYDR2TAB30 PO
--- NOTE | 2021-06-14 16:41 | ED Lower Extremity ---
General Chief Complaint: Lower Extremity Stated Complaint: L FOOT SWOLLEN Source: patient Exam Limitations: no limitations (DORIS GARCIA APRN) History of Present Illness Date Seen by Provider: Jun 14, 2021 Time Seen by Provider: 16:33 Initial Comments To ER with left lower extremity redness swelling and pain. Is been ongoing for a couple of weeks. She has been on Levaquin and cephalexin without improvement. She had an ultrasound at [facility] yesterday but does not know the results. No fever no chills. Onset: other Severity: moderate Pain/Injury Location: left foot Method of Injury: fell Modifying Factors: Worse With Movement (DORIS GARCIA APRN) Allergies and Home Medications Allergies Coded Allergies: Sulfa (Sulfonamide Antibiotics) (Unverified Allergy, Intermediate, HIVES, 08/27/12) Patient Home Medication List Home Medication List Reviewed: Yes (DORIS GARCIA APRN) Amoxicillin/Potassium Clav (Augmentin 875-125 Tablet) 1 Each Tablet, 1 EACH PO BID Prescribed by: DORIS GARCIA on 06/14/21 183 Hydromorphone HCl (Dilaudid) 2 Mg Tablet, 2 MG PO Q8H PRN for PAIN-SEVERE (8-10) Prescribed by: AZUL EMMANUEL on 04/09/21 2309 Oxycodone Hcl (Oxyir Tablet) 5 Mg Tab, 5 MG PO Q6H PRN for PAIN-MODERATE (5-7) Prescribed by: DORIS GARCIA on 06/14/21 1855 Prednisone (Prednisone) 20 Mg Tab, 40 MG PO DAILY Prescribed by: DORIS GARCIA on 06/14/21 1831 Review of Systems Constitutional: see HPI EENTM: see HPI Respiratory: no symptoms reported Cardiovascular: no symptoms reported Gastrointestinal: abdominal pain Musculoskeletal: no symptoms reported Skin: no symptoms reported Psychiatric/Neurological: No Symptoms Reported (DORIS GARCIA APRN) Past Gbcqlsf-Gebxoa-Rkzrel Hx Immunizations Up To Date Tetanus Booster (TDap): Less than 5yrs PED Vaccines UTD: No Second COVID19 Vaccination Edgardo: 10/31 (DORIS GARCIA APRN) Seasonal Allergies Seasonal Allergies: No (DORIS GARCIA APRN) Past Medical History Surgeries: Yes ( SECTION 08/2000, OVARY REMOVED 2000) Section, Oophorectomy Respiratory: Yes COPD Currently Using CPAP: No Currently Using BIPAP: No Cardiac: No Neurological: No 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 Disorders: No Female 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 Disorders: 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 Sexually Transmitted Disease: No HIV/AIDS: No Genitourinary: No Gastrointestinal: Yes (esophageal varices) Gastrointestinal Bleed, Esophageal Varices, Ulcer, Cirrhosis Musculoskeletal: No Endocrine: No HEENT: No Loss of Vision: Denies Hearing Impairment: Denies Cancer: No Psychosocial: No Depression Integumentary: No Blood Disorders: No Adverse Reaction/Blood Tranf: No (DORIS GARCIA APRN) Family Medical History No Pertinent Family Hx (DORIS GARCIA APRN) Physical Exam Vital Signs Vital Signs - First Documented 06/14/21 20:07 Temp 37.1 Pulse 62 Resp 20 B/P (MAP) 96/62 Pulse Ox 97 O2 Delivery Room Air (YARIEL ROBLES MD) Vital Signs Capillary Refill : (DORIS GARCIA APRN) Height, Weight, BMI Height: 5'2.00" Weight: 106lbs. 3.0oz. 48.890093ev; 18.00 BMI Method:Stated General Appearance: WD/WN, no apparent distress HEENT: PERRL/EOMI, normal ENT inspection Neck: non-tender, full range of motion Respiratory: no respiratory distress, no accessory muscle use Hips: bilateral hip non-tender, bilateral hip normal inspection, bilateral hip normal range of motion Legs: left leg pain, left leg soft tissue tenderness, left leg swelling, left leg other (From the lower third of the leg distally down to the toes is a deeply red petechial rash with some swelling. No open wounds.) Knees: bilateral knee non-tender, bilateral knee normal inspection, bilateral knee normal range of motion Ankles: bilateral ankle non-tender, bilateral ankle normal inspection, bilateral ankle normal range of motion Feet: bilateral foot non-tender, bilateral foot normal inspection Skin: normal color, warm/dry Capillary refill at the toe is between 2 and 3 seconds and I cannot palpate a dorsalis pedis pulse on either side but I am able to Doppler blood flow easily at this location (DORIS GARCIA APRN) Progress/Results/Core Measures Results/Orders Lab Results Laboratory Tests Test 06/14/21 16:41 Range/Units White Blood Count 4.2 L 4.3-11.0 10^3/uL Red Blood Count 3.91 3.80-5.11 10^6/uL Hemoglobin 11.2 L 11.5-16.0 g/dL Hematocrit 34 L 35-52 % Mean Corpuscular Volume 87 80-99 fL Mean Corpuscular Hemoglobin 29 25-34 pg Mean Corpuscular Hemoglobin Concent 33 32-36 g/dL Red Cell Distribution Width 14.5 10.0-14.5 % Platelet Count 67 L 130-400 10^3/uL Mean Platelet Volume 10.2 9.0-12.2 fL Immature Granulocyte % (Auto) 0 % Neutrophils (%) (Auto) 65 42-75 % Lymphocytes (%) (Auto) 19 12-44 % Monocytes (%) (Auto) 10 0-12 % Eosinophils (%) (Auto) 5 0-10 % Basophils (%) (Auto) 1 0-10 % Neutrophils # (Auto) 2.7 1.8-7.8 10^3/uL Lymphocytes # (Auto) 0.8 L 1.0-4.0 10^3/uL Monocytes # (Auto) 0.4 0.0-1.0 10^3/uL Eosinophils # (Auto) 0.2 0.0-0.3 10^3/uL Basophils # (Auto) 0.0 0.0-0.1 10^3/uL Immature Granulocyte # (Auto) 0.0 0.0-0.1 10^3/uL Percent Immature Platelet Fraction 5.6 0.0-7.6 % Sodium Level 138 135-145 MMOL/L Potassium Level 4.0 3.6-5.0 MMOL/L Chloride Level 102 98-107 MMOL/L Carbon Dioxide Level 26 21-32 MMOL/L Anion Gap 10 5-14 MMOL/L Blood Urea Nitrogen 25 H 7-18 MG/DL Creatinine 0.98 0.60-1.30 MG/DL Estimat Glomerular Filtration Rate 59 BUN/Creatinine Ratio 26 Glucose Level 91 70-105 MG/DL Calcium Level 9.3 8.5-10.1 MG/DL C-Reactive Protein High Sensitivity 0.15 0.00-0.50 MG/DL (YARIEL ROBLES MD) Medications Given in ED Current Medications Medications Dose Ordered Sig/Nabor Route Start Time Stop Time Status Last Admin Dose Admin Ceftriaxone Sodium 1000 mg/ Sterile Water 10 ml @ 200 mls/hr ONCE ONCE IV 06/14/21 18:30 06/14/21 18:32 DC 06/14/21 18:58 200 MLS/HR Methylprednisolone Sodium Succinate 80 mg ONCE ONCE IV 06/14/21 18:30 06/14/21 18:31 DC 06/14/21 18:58 80 MG Oxycodone HCl 5 mg ONCE ONCE PO 06/14/21 19:30 06/14/21 19:31 DC 06/14/21 20:03 5 MG (YARIEL ROBLES MD) Vital Signs/I&O 06/14/21 06/14/21 20:07 20:07 Temp 37.1 Pulse 62 60 Resp 20 18 B/P (MAP) 96/62 91/57 (68) Pulse Ox 97 96 O2 Delivery Room Air Room Air (YARIEL ROBLES MD) Departure Communication (Admissions) NAME: MARY ASUCEDA [facility] REC#: [id number] PT STATUS: REG ER : 1965 PHYSICIAN: DORIS GARCIA APRN ADMIT DATE: 06/14/21/ER Draft Date of Exam:06/14/21 FOOT, LEFT, 3 VIEWS INDICATION: Pain and redness and swelling. EXAMINATION: Left foot from 06/14/2021. COMPARISON: 05/09/2015. FINDINGS: Three views of the foot. There is mild osteopenia within the distal metatarsals, nonspecific in nature. No destructive lesions appreciated. No displaced fractures or dislocations visualized. There is irregularity along the anterior aspect of the distal tibia along the tibial plafond, likely due to degenerative disease but if there is focal pain, dedicated ankle radiographs recommended. Soft tissues are unremarkable. IMPRESSION: 1. Irregularity along the distal anterior tibia, possibly due to degenerative disease but if there is focal point tenderness, dedicated three views of the ankle recommended. Otherwise, incidental findings as discussed above. Dictated on workstation # [id number] Dict: 06/14/21 1656 Trans: 06/14/21 1703 [id number] Interpreted by: NUSRAT PEREZ MD Electronically signed by: (DORIS GARCIA APRN) Impression Primary Impression: petechiael rash of foot Additional Impressions: Thrombocytopenia Cellulitis Disposition: 01 HOME, SELF-CARE Condition: Stable Departure-Patient Inst. Decision time for Depature: 18:30 (DORIS GARCIA APRN) Referrals: MIROSLAVA ABBASI (PCP/Family) Primary Care Physician Patient Instructions: Cellulitis and Erysipelas (Skin Infections) Add. Discharge Instructions: Steroids and antibiotics as directed. Return to ER for any concerns. All discharge instructions reviewed with patient and/or family. Voiced understanding. Scripts Oxycodone Hcl (OXYIR TABLET) 5 Mg Tab 5 MG PO Q6H PRN for PAIN-MODERATE (5-7), #10 TAB Prov: DORIS GARCIA APRN 06/14/21 Amoxicillin/Potassium Clav (Augmentin 875-125 Tablet) 1 Each Tablet 1 EACH PO BID, #14 TAB 0 Refills Prov: DORIS GARCIA APRN 06/14/21 Prednisone (Prednisone) 20 Mg Tab 40 MG PO DAILY, #6 TAB 0 Refills Prov: DORIS GARCIA APRN 06/14/21 ATTENDING PHYSICIAN NOTE: I was physically present as attending physician in the emergency department during the care of this patient, but I was not directly involved in the decision making or delivery of care for this patient. (YARIEL ROBLES MD) DORIS GARCIA APRN Jun 14, 2021 16:41 YARIEL ROBLES MD Jun 15, 2021 04:50
[2021-06-14 16:51] LABS: MEAN CORPUSCULAR VOLUME 87 fL (80-99); WHITE BLOOD COUNT 4.2 10^3/uL (4.3-11.0)
[2021-06-14 16:53] LABS: BASOPHILS % (AUTO) 1 % (0-10); EOSINOPHILS # (AUTO) 0.2 10^3/uL (0.0-0.3); EOSINOPHILS % (AUTO) 5 % (0-10); HEMATOCRIT 34 % (35-52); HEMOGLOBIN 11.2 g/dL (11.5-16.0); LYMPHOCYTES # (AUTO) 0.8 10^3/uL (1.0-4.0); LYMPHOCYTES % (AUTO) 19 % (12-44); MEAN CORPUSCULAR HEMOGLOBIN 29 pg (25-34); MEAN CORPUSCULAR HGB CONC 33 g/dL (32-36); MEAN PLATELET VOLUME 10.2 fL (9.0-12.2); MONOCYTES # (AUTO) 0.4 10^3/uL (0.0-1.0); MONOCYTES % (AUTO) 10 % (0-12); NEUTROPHILS # (AUTO) 2.7 10^3/uL (1.8-7.8); NEUTROPHILS % (AUTO) 65 % (42-75); PLATELET COUNT 67 10^3/uL (130-400)
[2021-06-14 16:58] LABS: CALCIUM 9.3 MG/DL (8.5-10.1); CREATININE SERUM 0.98 MG/DL (0.60-1.30)
[2021-06-14] MEDS ORDERED: LACTATED RINGERS 1,000 ML IV SCH (17:00)
--- NOTE | 2021-06-14 17:03 | Diagnostic Imaging Report ---
INDICATION: Pain and redness and swelling. EXAMINATION: Left foot from 06/14/2021. COMPARISON: 05/09/2015. FINDINGS: Three views of the foot. There is mild osteopenia within the distal metatarsals, nonspecific in nature. No destructive lesions appreciated. No displaced fractures or dislocations visualized. There is irregularity along the anterior aspect of the distal tibia along the tibial plafond, likely due to degenerative disease but if there is focal pain, dedicated ankle radiographs recommended. Soft tissues are unremarkable. IMPRESSION: 1. Irregularity along the distal anterior tibia, possibly due to degenerative disease but if there is focal point tenderness, dedicated three views of the ankle recommended. Otherwise, incidental findings as discussed above. Dictated by: Dictated on workstation # [id number]
--- NOTE | 2021-06-14 18:22 | Diagnostic Imaging Report ---
PROCEDURE: US left lower extremity venous. TECHNIQUE: Multiple real-time grayscale images were obtained over the left lower extremity in various projections. Additional duplex Doppler and color Doppler images were also obtained. INDICATION: Redness and swelling in the left lower extremity. There is no evidence of left lower extremity DVT. Left lower extremity deep venous system shows normal compressibility with normal response to augmentation and Valsalva. No fluid collection or mass is detected. IMPRESSION: No evidence of left lower extremity DVT. Dictated by: Dictated on workstation # [id number]
[2021-06-14] MEDS ORDERED: cefTRIAXone 1,000 MG in WATER (STERILE) FOR INJECTION 10 ML IV ONE (18:30)
[2021-06-14] MEDS ORDERED: methylPREDNISolone 40 MG/ML (Solu-MEDROL) VIAL IV ONE (18:30)
[2021-06-14] MEDS ORDERED: PRD20T PO (18:31)
[2021-06-14] MEDS ORDERED: AMOX-358 PO (18:31)
[2021-06-14] MEDS ORDERED: OXC5T PO (18:55)
[2021-06-14 20:07] VITALS: BP 96/62
== END 2021-06-14 20:10 | disposition home or self-care (01) ==
LOC: EDUNIT# 16:11 → ER 16:12
DX: R23.3 Spontaneous ecchymoses (principal); L03.116 Cellulitis of left lower limb; J44.9 Chronic obstructive pulmonary disease, unspecified
CPT/HCPCS: 36415; 73630; 80048; 85025; 86141; 96361; 96374; 96375

== ENCOUNTER 2021-06-26 12:22 | Emergency (ER) | payer OTHER ==
[~2021-06-26] VITALS: Ht 157 cm; Wt 45.0 kg
[~2021-06-26 12:22] MED LIST changes: +AMOX-358 PO; +OXC5T PO
--- NOTE | 2021-06-26 12:57 | Diagnostic Imaging Report ---
Indication: Ankle swelling, pain. Findings: 3 view left ankle shows the medial, lateral and posterior malleolar to be intact. No evidence for joint effusion in the lateral view. No fracture. No gas. No foreign body. No acute periosteal reaction. No disruption of the mortise. Impression: Unremarkable 3 view ankle Dictated by: Dictated on workstation # [id number]
--- NOTE | 2021-06-26 13:09 | ED Lower Extremity ---
General Chief Complaint: Lower Extremity Stated Complaint: L FOOT PAIN/SWELLING Nursing Triage Note: PT AMB TO [facility] CO OF L FOOT PAIN 8/10 AND SWELLING, PT HAS INJURY TO L KNEE IN MARCH THAT STATES IS HEALED BUT STATES NOT ABLE TO WALK ON FOOT. History of Present Illness Date Seen by Provider: Jun 26, 2021 Time Seen by Provider: 12:30 Initial Comments 56-year-old female returns for continued swelling and pain in her left ankle and foot. She had a left tibial plateau fracture in March of this year and since then has been having intermittent pain and swelling in her ankle. She denies any injuries to her left ankle. She has been seen and evaluated here earlier this month, including x-ray of the foot and ultrasound which were both negative. She is not on anticoagulants and does not take aspirin daily. She has not started physical therapy because of the left ankle and foot Onset: other Pain/Injury Location: left foot, left ankle Method of Injury: unknown Modifying Factors: Improves With Rest Allergies and Home Medications Allergies Coded Allergies: Sulfa (Sulfonamide Antibiotics) (Unverified Allergy, Intermediate, HIVES, 08/27/12) Patient Home Medication List Home Medication List Reviewed: Yes Amoxicillin/Potassium Clav (Augmentin 875-125 Tablet) 1 Each Tablet, 1 EACH PO BID Prescribed by: DORIS GARCIA on 06/14/21 183 Hydromorphone HCl (Dilaudid) 2 Mg Tablet, 2 MG PO Q8H PRN for PAIN-SEVERE (8-10) Prescribed by: AZUL EMMANUEL on 04/09/21 2309 Oxycodone Hcl (Oxyir Tablet) 5 Mg Tab, 5 MG PO Q6H PRN for PAIN-MODERATE (5-7) Prescribed by: DORIS GARCIA on 06/14/21 185 Prednisone (Prednisone) 20 Mg Tab, 40 MG PO DAILY Prescribed by: DORIS GARCIA on 06/14/21 183 Review of Systems Constitutional: no symptoms reported, see HPI Musculoskeletal: see HPI, joint pain (Left ankle and foot), joint swelling, muscle pain (Left lower extremity) All Other Systems Reviewed Negative Unless Noted: Yes Past Fhhdhic-Ktbgss-Wftkzf Hx Patient Social History Smoking Status: Former Smoker Substance use?: No Alcohol Use?: No Pt feels they are or have been: No Immunizations Up To Date Tetanus Booster (TDap): Less than 5yrs PED Vaccines UTD: No Second COVID19 Vaccination Edgardo: PT STATES HAS HAD 2 VACCINES UNABLE TO REMEMBER BRAND Seasonal Allergies Seasonal Allergies: No Past Medical History Surgeries: Yes ( SECTION 08/2000, OVARY REMOVED 2000) Section, Oophorectomy Respiratory: Yes COPD Currently Using CPAP: No Currently Using BIPAP: No Cardiac: No Neurological: No 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 Disorders: No 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 Sexually Transmitted Disease: No HIV/AIDS: No Genitourinary: No Gastrointestinal: Yes (esophageal varices) Gastrointestinal Bleed, Esophageal Varices, Ulcer, Cirrhosis Musculoskeletal: No Endocrine: No HEENT: No Loss of Vision: Denies Hearing Impairment: Denies Cancer: No Psychosocial: No Depression Integumentary: No Blood Disorders: No Adverse Reaction/Blood Tranf: No Family Medical History Reviewed Nursing Family Hx No Pertinent Family Hx Physical Exam Vital Signs Vital Signs - First Documented 06/26/21 12:30 Temp 36.6 Pulse 57 Resp 20 B/P (MAP) 98/56 (70) Pulse Ox 99 Capillary Refill : Less Than 3 Seconds Height, Weight, BMI Height: 5'2.00" Weight: 106lbs. 3.0oz. 48.195441yk; 18.00 BMI Method:Stated General Appearance: WD/WN, no apparent distress Neck: non-tender, full range of motion, supple, normal inspection Cardiovascular: normal peripheral pulses, regular rate, rhythm, no JVD, no murmur Respiratory: chest non-tender, lungs clear, normal breath sounds Ankles: left ankle bone tenderness (Generalized), left ankle limited range of motion (Secondary to pain), left ankle pain, left ankle soft tissue tenderness, left ankle swelling Feet: left foot limited range of motion, left foot soft tissue tenderness, left foot swelling Neurologic/Tendon: normal sensation, normal motor functions, normal tendon functions Neurologic/Psychiatric: no motor/sensory deficits, alert, normal mood/affect, oriented x 3 Skin: normal color, warm/dry + Cate's, cap refill 5-6 sec in left LE. Pedal pulses 1+ and symmetric. Progress/Results/Core Measures Results/Orders My Orders Orders - AZUL EMMANUEL Ankle, Left, 3 Views (06/26/21 12:40) Enoxaparin Injection (Lovenox Injection) (06/26/21 13:26) Vital Signs/I&O 06/26/21 12:30 Temp 36.6 Pulse 57 Resp 20 B/P (MAP) 98/56 (70) Pulse Ox 99 Blood Pressure Mean: 70 Progress Progress Note : Time: 12:30 Progress Note Patient seen and evaluated, last visit she had an x-ray of the foot but not the ankle, will obtain x-ray of the ankle at this time and then reevaluate. 1315 x-ray negative for acute findings, discussed results with the patient. Based on her symptoms I would recommend an ultrasound of the left lower extremity to rule out a DVT. She is agreeable to this. It is not available on the weekend, she can have an outpatient ultrasound done tomorrow. We will start Lovenox 30 mg subcu today. Discharge instructions and return precautions reviewed. Diagnostic Imaging Diagonstic Imaging: Xray Plain Films/CT/US/NM/MRI: ankle Comments NAME: MARY SAUCEDA [facility] REC#: [id number] PT STATUS: REG ER : 1965 PHYSICIAN: AZUL EMMANUEL ADMIT DATE: 06/26/21/ER Signed Date of Exam:06/26/21 ANKLE, LEFT, 3 VIEWS Indication: Ankle swelling, pain. Findings: 3 view left ankle shows the medial, lateral and posterior malleolar to be intact. No evidence for joint effusion in the lateral view. No fracture. No gas. No foreign body. No acute periosteal reaction. No disruption of the mortise. Impression: Unremarkable 3 view ankle Dictated by: Dictated on workstation # [id number] Dict: 06/26/21 1254 Trans: 06/26/21 1300 [facility] [id number] Interpreted by: VIDHYA HOWE Electronically signed by: VIDHYA HOWE 06/26/21 1300 Reviewed: Reviewed by Me Departure Impression Primary Impression: Ankle pain Qualified Codes: M25.572 - Pain in left ankle and joints of left foot Additional Impression: Ankle swelling Qualified Codes: M25.472 - Effusion, left ankle Disposition: 01 HOME, SELF-CARE Condition: Improved Departure-Patient Inst. Decision time for Depature: 13:15 Referrals: [facility] [place] (PCP) Primary Care Physician MIROSLAVA ABBASI (Family) Primary Care Physician Patient Instructions: Ankle Sprain (DC), Deep Vein Thrombosis (Blood Clots in the Legs) (DC) Add. Discharge Instructions: Call [phone] tomorrow morning and ask for scheduling, tell them you have an order for an ultrasound of your left leg. They will give you a time to come to the hospital. The Ultrasound results will be sent to your Primary Care Provider at [facility]. [facility] has ultrasound, if you prefer to go to them, call your Primary Care Provider. Elevate your left ankle higher than your heart, begin working on range of motion for your left ankle and foot. Follow-up with your primary care provider or your surgeon if symptoms are not improving or worsen. Take Aspirin 81 mg daily, with food. Return to the emergency department for new, urgent healthcare needs. All discharge instructions reviewed with patient and/or family. Voiced understanding. Copy Copies To 1: MIKE AGUILAR AMY ARNP Jun 26, 2021 13:09
[2021-06-26] MEDS ORDERED: ENOXAPARIN 30 MG/0.3 ML (LOVENOX) SYR SC STA (13:26)
[2021-06-26 13:40] VITALS: BP 99/57
== END 2021-06-26 13:40 | disposition home or self-care (01) ==
LOC: EDUNIT# 12:22 → ER 12:24
DX: M25.572 Pain in left ankle and joints of left foot (principal); M25.472 Effusion, left ankle; J44.9 Chronic obstructive pulmonary disease, unspecified; Z87.891 Personal history of nicotine dependence
CPT/HCPCS: 73610; 99284

== ENCOUNTER → 2021-06-27 | Outpatient (CLI) | payer OTHER ==
--- NOTE | 2021-06-27 13:52 | Diagnostic Imaging Report ---
PROCEDURE: US left lower extremity venous. TECHNIQUE: Multiple real-time grayscale images were obtained over the left lower extremity in various projections. Additional duplex Doppler and color Doppler images were also obtained. INDICATION: Left lower extremity swelling and pain. COMPARISON: None. FINDINGS: Visualized deep and superficial venous system is patent. There is no DVT. IMPRESSION: Negative left lower extremity venous Doppler. Dictated by: Dictated on workstation # [id number]
== END ==
LOC: RAD 12:45
PROVIDERS: ATTEND Emergency Medicine
DX: M25.572 Pain in left ankle and joints of left foot (principal); M79.89 Other specified soft tissue disorders

== ENCOUNTER 2021-08-08 08:50 | Outpatient (CLI) | payer SELFPAY ==
[~2021-08-08] VITALS: Ht 157 cm; Wt 45.4 kg
[2021-08-08 08:59] VITALS: BP 92/48
[2021-08-08] MEDS ORDERED: ACETAMINOPHEN 500 MG TAB (TYLENOL) PO PRN ×2 (09:30)
[2021-08-08] MEDS ORDERED: CASIRIVIMAB/IMDEVIMAB 1,200 MG in NS (IVPB) 250 ML IV ONE (09:30)
[2021-08-08] MEDS ORDERED: BAMLANIVIMAB 700 MG/ETESEVIMAB 1,400 MG IN NS IV ONE ×3 (09:30)
[2021-08-08] MEDS ORDERED: diphenhydrAMINE 50 MG/ML INJ (BENADRYL) IV PRN ×2 (09:30)
[2021-08-08] MEDS ORDERED: ONDANSETRON 4 MG/2 ML (SDV) Z0FRAN IV PRN ×2 (09:30)
[2021-08-08] MEDS ORDERED: EPINEPHrine INJECTION 1 MG/ML AMP IM PRN ×2 (09:30)
[2021-08-08 11:30] VITALS: BP 94/43
== END 2021-08-08 11:35 | disposition home or self-care (01) ==
LOC: INFUSION 08:50
PROVIDERS: ATTEND Physician Assistant
DX: U07.1 COVID-19 (principal)

== ENCOUNTER 2021-08-09 08:15 | Emergency (ER) | payer OTHER ==
[~2021-08-09] VITALS: Ht 157 cm; Wt 40.0 kg
[2021-08-09] MEDS ORDERED: FAMOTIDINE 20MG/2ML IV (PEPCID) IV STA (08:44)
[2021-08-09] MEDS ORDERED: LIDOCAINE 2% VISCOUS 15 ML UDC PO ONE (08:45)
[2021-08-09] MEDS ORDERED: ONDANSETRON 4 MG/2 ML (SDV) Z0FRAN IVP ONE (08:45)
[2021-08-09] MEDS ORDERED: ANTACID SUSP 30 ML UDC (MYLANTA) PO ONE (08:45)
[2021-08-09 09:01] LABS: BASOPHILS % (AUTO) 1 % (0-10); EOSINOPHILS % (AUTO) 1 % (0-10); HEMATOCRIT 23 % (35-52); LYMPHOCYTES # (AUTO) 0.6 10^3/uL (1.0-4.0); LYMPHOCYTES % (AUTO) 14 % (12-44); MEAN CORPUSCULAR HGB CONC 28 g/dL (32-36); MEAN CORPUSCULAR VOLUME 91 fL (80-99); MEAN PLATELET VOLUME 11.6 fL (9.0-12.2); MONOCYTES # (AUTO) 0.3 10^3/uL (0.0-1.0); MONOCYTES % (AUTO) 8 % (0-12); NEUTROPHILS # (AUTO) 3.1 10^3/uL (1.8-7.8); NEUTROPHILS % (AUTO) 76 % (42-75); PLATELET COUNT 88 10^3/uL (130-400); WHITE BLOOD COUNT 4.1 10^3/uL (4.3-11.0)
[2021-08-09 09:04] LABS: HEMOGLOBIN 6.5 g/dL (11.5-16.0); MEAN CORPUSCULAR HEMOGLOBIN 25 pg (25-34)
[2021-08-09 09:14] LABS: POTASSIUM 4.8 MMOL/L (3.6-5.0)
[2021-08-09 09:15] LABS: CALCIUM 8.4 MG/DL (8.5-10.1)
[2021-08-09 09:17] LABS: TOTAL PROTEIN 6.4 GM/DL (6.4-8.2)
[2021-08-09 09:18] LABS: BILIRUBIN,TOTAL 0.7 MG/DL (0.1-1.0)
[2021-08-09 09:20] LABS: CREATININE SERUM 0.73 MG/DL (0.60-1.30)
--- NOTE | 2021-08-09 09:27 | ED Abdominal Pain ---
General Chief Complaint: General Problems/Pain Stated Complaint: ABD PAIN,WEAKNESS,N/V, HAD COVID INFUSION 08/08/21 Nursing Triage Note: AMB TO ED WITH HILARY PAUL HAS CONGESTION 1 WEEK WENT AFTER ELY HAD POS COVD AT [facility] 1 WEEK AGO HAD ANTIBIOTICS YESTERDAY. ONSET OF NAUSEA LAST NIGHT. Source of Information: Patient Exam Limitations: No Limitations History of Present Illness Date Seen by Provider: Aug 09, 2021 Time Seen by Provider: 08:33 Initial Comments This 56-year-old woman with history of alcoholic cirrhosis, liver failure, and esophageal varices presents to the ER with concerns about nausea and central abdominal pain that started last night. She is on day 13 of COVID-19 infection (initially states as day 10 but later corrected upon review of the calendar). Symptoms started on July 31 and she tested positive on August 01 at [facility]. She was tested because of upper respiratory infection symptoms. She had a monoclonal antibody infusion yesterday. She denies any constipation or diarrhea. She denies any loss of blood from GI sources. She sees a hep atologist at [facility] for esophageal varices. She no longer drinks alcohol. Miroslava Stauffer is her PCP at [facility]. Allergies and Home Medications Allergies Coded Allergies: Sulfa (Sulfonamide Antibiotics) (Unverified Allergy, Intermediate, HIVES, 08/27/12) Patient Home Medication List Home Medication List Reviewed: Yes Amoxicillin/Potassium Clav (Augmentin 875-125 Tablet) 1 Each Tablet, 1 EACH PO BID Prescribed by: DORIS GARCIA on 06/14/211830 Hydromorphone HCl (Dilaudid) 2 Mg Tablet, 2 MG PO Q8H PRN for PAIN-SEVERE (8-10) Prescribed by: AZUL EMMANUEL on 04/09/21 2309 Oxycodone Hcl (Oxyir Tablet) 5 Mg Tab, 5 MG PO Q6H PRN for PAIN-MODERATE (5-7) Prescribed by: DORIS GARCIA on 06/14/21 185 Prednisone (Prednisone) 20 Mg Tab, 40 MG PO DAILY Prescribed by: DORIS GARCIA on 06/14/211830 Review of Systems Review of Systems Constitutional: no symptoms reported EENTM: No Symptoms Reported Respiratory: No Symptoms Reported Cardiovascular: No Symptoms Reported Gastrointestinal: See HPI Genitourinary: No Symptoms Reported Musculoskeletal: no symptoms reported Skin: no symptoms reported Psychiatric/Neurological: Anxiety Endocrine: No Symptoms Reported Hematologic/Lymphatic: No Symptoms Reported Past Hiiojgb-Uhbqmu-Zbwojr Hx Patient Social History Tobacco Use?: No Substance use?: No Immunizations Up To Date Tetanus Booster (TDap): Less than 5yrs PED Vaccines UTD: No First/Initial COVID19 Vaccinat: aug Second COVID19 Vaccination Edgardo: sep 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 [employer] Seasonal Allergies Seasonal Allergies: No Past Medical History Surgeries: Yes ( SECTION 08/2000, OVARY REMOVED 2000) Section, Oophorectomy Respiratory: Yes COPD Currently Using CPAP: No Currently Using BIPAP: No Cardiac: No Neurological: No 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 Disorders: No Female 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 Disorders: 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 Sexually Transmitted Disease: No HIV/AIDS: No Genitourinary: No Gastrointestinal: Yes (esophageal varices) Gastrointestinal Bleed, Esophageal Varices, Ulcer, Cirrhosis Musculoskeletal: No Endocrine: No HEENT: No Loss of Vision: Denies Hearing Impairment: Denies Cancer: No Psychosocial: No Depression Integumentary: No Blood Disorders: No Adverse Reaction/Blood Tranf: No Family Medical History No Pertinent Family Hx Physical Exam Vital Signs Vital Signs - First Documented 08/09/21 08:27 Temp 37.1 Pulse 89 Resp 18 B/P (MAP) 103/99 (100) Pulse Ox 100 O2 Delivery Room Air Capillary Refill : Less Than 3 Seconds Height/Weight/BMI Height: 5'2.00" Weight: 106lbs. 3.0oz. 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, no motor/sensory deficits, alert, oriented x 3, other (Anxious) Skin: normal color, warm/dry Progress/Results/Core Measures Results/Orders Lab Results Laboratory Tests Test 08/09/21 08:53 08/09/21 09:40 Range/Units White Blood Count 4.1 L 4.3-11.0 10^3/uL Red Blood Count 2.55 L 3.80-5.11 10^6/uL Hemoglobin 6.5 *L 11.5-16.0 g/dL Hematocrit 23 L 35-52 % Mean Corpuscular Volume 91 80-99 fL Mean Corpuscular Hemoglobin 25 25-34 pg Mean Corpuscular Hemoglobin Concent 28 L 32-36 g/dL Red Cell Distribution Width 14.3 10.0-14.5 % Platelet Count 88 L 130-400 10^3/uL Mean Platelet Volume 11.6 9.0-12.2 fL Immature Granulocyte % (Auto) 1 % Neutrophils (%) (Auto) 76 H 42-75 % Lymphocytes (%) (Auto) 14 12-44 % Monocytes (%) (Auto) 8 0-12 % Eosinophils (%) (Auto) 1 0-10 % Basophils (%) (Auto) 1 0-10 % Neutrophils # (Auto) 3.1 1.8-7.8 10^3/uL Lymphocytes # (Auto) 0.6 L 1.0-4.0 10^3/uL Monocytes # (Auto) 0.3 0.0-1.0 10^3/uL Eosinophils # (Auto) 0.0 0.0-0.3 10^3/uL Basophils # (Auto) 0.0 0.0-0.1 10^3/uL Immature Granulocyte # (Auto) 0.0 0.0-0.1 10^3/uL Percent Immature Platelet Fraction 5.4 0.0-7.6 % Prothrombin Time 17.2 H 12.2-14.7 SEC INR Comment 1.4 0.8-1.4 Activated Partial Thromboplast Time 27 24-35 SEC Sodium Level 134 L 135-145 MMOL/L Potassium Level 4.8 3.6-5.0 MMOL/L Chloride Level 109 H 98-107 MMOL/L Carbon Dioxide Level 17 L 21-32 MMOL/L Anion Gap 8 5-14 MMOL/L Blood Urea Nitrogen 37 H 7-18 MG/DL Creatinine 0.73 0.60-1.30 MG/DL Estimat Glomerular Filtration Rate 82 BUN/Creatinine Ratio 51 Glucose Level 107 H 70-105 MG/DL Calcium Level 8.4 L 8.5-10.1 MG/DL Corrected Calcium 9.2 8.5-10.1 MG/DL Total Bilirubin 0.7 0.1-1.0 MG/DL Aspartate Amino Transf (AST/SGOT) 26 5-34 U/L Alanine Aminotransferase (ALT/SGPT) 12 0-55 U/L Alkaline Phosphatase 96 40-136 U/L C-Reactive Protein High Sensitivity 0.58 H 0.00-0.50 MG/DL Total Protein 6.4 6.4-8.2 GM/DL Albumin 3.0 L 3.2-4.5 GM/DL Lipase 34 8-78 U/L Urine Color YELLOW Urine Clarity CLEAR Urine pH 6.0 5-9 Urine Specific [place] 1.015 L 1.016-1.022 Urine Protein NEGATIVE NEGATIVE Urine Glucose (UA) NEGATIVE NEGATIVE Urine Ketones NEGATIVE NEGATIVE Urine Nitrite NEGATIVE NEGATIVE Urine Bilirubin NEGATIVE NEGATIVE Urine Urobilinogen 0.2 < = 1.0 MG/DL Urine Leukocyte Esterase NEGATIVE NEGATIVE Urine RBC (Auto) NEGATIVE NEGATIVE Urine RBC NONE /HPF Urine WBC NONE /HPF Urine Crystals NONE /LPF Urine Bacteria NEGATIVE /HPF Urine Casts NONE /LPF Urine Mucus NEGATIVE /LPF Urine Culture Indicated NO My Orders Aaliyah - YARIEL ROBLES MD Cbc With Automated Diff (08/09/21 08:44) Comprehensive Metabolic Panel (08/09/21 08:44) Hs C Reactive Protein (08/09/21 08:44) Lipase (08/09/21 08:44) Ua Culture If Indicated (08/09/21 08:44) Ed Iv/Invasive Line Start (08/09/21 08:44) Ondansetron Injection (Zofran Injectio (08/09/21 08:45) Lidocaine 2% Viscous 15 Ml (Xylocaine Vi (08/09/21 08:45) Antacid Suspension (Mylanta Suspension (08/09/21 08:45) Famotidine Injection (Pepcid Injection) (08/09/21 08:44) Red Cells Leukocytes Reduced (08/09/21 09:08) Type And Screen (08/09/21 09:08) Ns Iv 500 Ml (Sodium Chloride 0.9%) (08/09/21 10:30) Protime With Inr (08/09/21 11:08) Partial Thromboplastin Time (08/09/21 11:08) Pantoprazole Injection (Protonix Injecti (08/09/21 13:45) Fentanyl Inj (Sublimaze Injection) (08/09/21 15:15) Medications Given in ED Current Medications Medications Dose Ordered Sig/Nabor Route Start Time Stop Time Status Last Admin Dose Admin Al Hydrox/Mg Hydrox/Simethicone 30 ml ONCE ONCE PO 08/09/21 08:45 08/09/21 08:46 DC 08/09/21 09:22 30 ML Fentanyl Citrate 50 mcg ONCE ONCE IVP 08/09/21 15:15 08/09/21 15:16 DC 08/09/21 15:26 50 MCG Lidocaine HCl 15 ml ONCE ONCE PO 08/09/21 08:45 08/09/21 08:46 DC 08/09/21 09:22 15 ML Ondansetron HCl 4 mg ONCE ONCE IVP 08/09/21 08:45 08/09/21 08:46 DC 08/09/21 09:00 4 MG Pantoprazole 40 mg ONCE ONCE IV 08/09/21 13:45 08/09/21 13:46 DC 08/09/21 15:27 40 MG Sodium Chloride 500 ml @ 0 mls/hr Q0M ONCE IV 08/09/21 10:30 08/09/21 10:31 DC 08/09/21 10:41 500 MLS/HR Vital Signs/I&O 08/09/21 08/09/21 08/09/21 08/09/21 08:27 10:56 11:15 11:49 Temp 37.1 Pulse 89 83 83 77 Resp 18 18 18 18 B/P (MAP) 103/99 (100) 105/53 97/70 100/59 Pulse Ox 100 100 100 O2 Delivery Room Air Room Air 08/09/21 08/09/21 08/09/21 08/09/21 12:51 13:41 14:38 15:11 Temp 36.5 Pulse 82 73 72 80 Resp 18 18 18 18 B/P (MAP) 98/62 93/60 93/71 100/50 Pulse Ox 100 99 99 99 O2 Delivery Room Air Room Air Room Air 08/09/21 08/09/21 16:21 17:34 Pulse 73 72 Resp 18 18 B/P (MAP) 97/55 96/58 Pulse Ox 95 98 O2 Delivery Room Air Room Air Blood Pressure Mean: 100 Progress Progress Note #1: Time: 09:27 Progress Note Patient is being given a trial of GI cocktail. In the meantime, hemoglobin returned at 6.5. This is a drop from 11.2 on June 14. A unit of PRBC is being crossmatched. Vital signs are stable. Progress Note #2: Time: 10:21 Progress Note The GI treatment with GI cocktail, Pepcid, and Zofran resolved her abdominal pain. A unit of PRBC transfusion is pending. I have been in contact with the [facility] and both are on diversion to medical bed admissions. [facility] will likely not be able to take this patient because she is still within her Covid quarantine. I have spoken with Dr. Dunn. His recommendation is to transfer her somewhere with banding capabilities because of the potential for worsening bleed or other complications that may require emergent intervention. Patient did clarify with me as well that she may have had a couple episodes of melena recently. Progress Note #3: Time: 10:38 Progress Note I stressed the importance of knowing exactly when Covid symptoms started in further conversation with the patient. She states the symptoms started the day she received her Covid booster vaccination at [facility]. Symptoms at that time included cough. I contacted [facility] and confirmed the dates she received the vaccination was July 28. That means this is Covid day #13. Progress Note #4: Time: 12:14 Progress Note We received acceptance from [facility] to Dr. Willis Wilson. We are awaiting bed assignment which may take several hours as they are pending discharges. While we are awaiting bed assignment, we will add Protonix to her therapy. Progress Note #5: Time: 17:02 Progress Note Patient has remained stable. Rebounding pain was treated with fentanyl. [facility] was eventually able to sign bed placement. Transfer is pending. Departure Impression Primary Impression: Severe anemia Additional Impressions: Epigastric pain Nausea History of esophageal varices Alcoholic cirrhosis Qualified Codes: K70.30 - Alcoholic cirrhosis of liver without ascites Disposition: XFER SHT-TRM HOSP Condition: Stable Transfer Transfer Reason: Exceeds level of care Time Spoke to Accepting Phy: 11:58 Transfer Progress Notes Transfer accepted at [facility] to Dr. Willis Wilson Transfer Time: 17:36 Transfer Facility: [facility] Method of Transfer: EMS Departure-Patient Inst. Referrals: [facility] (PCP) Primary Care Physician MIROSLAVA STAUFFER (Family) Primary Care Physician Copy Copies To 1: MIKE AGUILAR JOSHUA T MD Aug 09, 2021 09:27
[2021-08-09 09:48] LABS: BILIRUBIN,URINE NEGATIVE (NEGATIVE); CLARITY,URINE CLEAR; COLOR,URINE YELLOW; GLUCOSE, URINE (UA) NEGATIVE (NEGATIVE); KETONES,URINE NEGATIVE (NEGATIVE); LEUKOCYTE ESTERASE ,URINE NEGATIVE (NEGATIVE); NITRITE,URINE NEGATIVE (NEGATIVE); PROTEIN,URINE NEGATIVE (NEGATIVE)
[2021-08-09 09:54] LABS: BACTERIA,URINE NEGATIVE /HPF
[2021-08-09] MEDS ORDERED: NS IV 500 ML 500 ML IV ONE (10:30)
[2021-08-09 10:56] VITALS: BP 105/53
[2021-08-09 11:15] VITALS: BP 97/70
[2021-08-09 11:21] LABS: INR 1.4 (0.8-1.4); PROTHROMBIN TIME PATIENT 17.2 SEC (12.2-14.7)
[2021-08-09 12:51] VITALS: BP 98/62
[2021-08-09] MEDS ORDERED: PANTOPRAZOLE 40 MG (PROTONIX) VIAL IV ONE (13:45)
[2021-08-09] MEDS ORDERED: fentaNYL INJ 100 MCG/2 ML AMP IVP ONE (15:15)
[2021-08-09 17:34] VITALS: BP 96/58
== END 2021-08-09 17:37 | disposition short-term general hospital (02) ==
LOC: EDUNIT# 08:15 → ER 08:18
DX: D64.9 Anemia, unspecified (principal); R10.13 Epigastric pain; K70.30 Alcoholic cirrhosis of liver without ascites; J44.9 Chronic obstructive pulmonary disease, unspecified
CPT/HCPCS: 80053; 81000; 83690; 85025; 85610; 85730; 86141; 86850; 86900; 86901; 86920; 96374; 96375; 99284; P9016; 36415

== ENCOUNTER → 2021-11-18 | Outpatient (CLI) | payer OTHER ==
[2021-11-18 09:57] LABS: BASOPHILS % (AUTO) 1 % (0-10)
[2021-11-18 09:59] LABS: EOSINOPHILS # (AUTO) 0.1 10^3/uL (0.0-0.3); EOSINOPHILS % (AUTO) 2 % (0-10); HEMATOCRIT 33 % (35-52); HEMOGLOBIN 9.7 g/dL (11.5-16.0); LYMPHOCYTES # (AUTO) 0.4 10^3/uL (1.0-4.0); LYMPHOCYTES % (AUTO) 15 % (12-44); MEAN CORPUSCULAR HEMOGLOBIN 23 pg (25-34); MEAN CORPUSCULAR HGB CONC 30 g/dL (32-36); MEAN CORPUSCULAR VOLUME 77 fL (80-99); MONOCYTES # (AUTO) 0.2 10^3/uL (0.0-1.0); MONOCYTES % (AUTO) 10 % (0-12); NEUTROPHILS # (AUTO) 1.8 10^3/uL (1.8-7.8); NEUTROPHILS % (AUTO) 72 % (42-75); PLATELET COUNT 59 10^3/uL (130-400); WHITE BLOOD COUNT 2.5 10^3/uL (4.3-11.0)
[2021-11-18 10:17] LABS: BILIRUBIN,TOTAL 0.8 MG/DL (0.1-1.0); CALCIUM 9.5 MG/DL (8.5-10.1); CREATININE SERUM 0.84 MG/DL (0.60-1.30); POTASSIUM 3.8 MMOL/L (3.6-5.0); TOTAL PROTEIN 7.7 GM/DL (6.4-8.2)
== END ==
LOC: ONC 09:47
PROVIDERS: ATTEND Internal Medicine Hematology & Oncology
DX: D72.819 Decreased white blood cell count, unspecified (principal); D69.59 Other secondary thrombocytopenia; B18.2 Chronic viral hepatitis C; K74.60 Unspecified cirrhosis of liver; D61.818 Other pancytopenia; D50.0 Iron deficiency anemia secondary to blood loss (chronic); I85.01 Esophageal varices with bleeding; R16.1 Splenomegaly, not elsewhere classified; Z87.891 Personal history of nicotine dependence
CPT/HCPCS: 36415; 80053; 82105; 82728; 83540; 83550; 85025

== ENCOUNTER → 2021-11-18 | Outpatient (CLI) | payer OTHER ==
--- NOTE | 2021-11-18 10:02 | Diagnostic Imaging Report ---
PROCEDURE: US Abdomen, limited. INDICATION: ALCOHOLIC CIRRHOSIS OF LIVER TECHNIQUE: Multiple grayscale sonographic images were obtained of the right upper quadrant of the abdomen. CORRELATION STUDY: 04/06/2021 FINDINGS: LIVER: Coarse echotexture throughout the liver. Liver small 13.2 cm. The main portal vein is patent and with normal direction of flow, however appears dilated. GALLBLADDER: Abnormal gallbladder wall thickening at 0.4 cm. No definitive shadowing gallstones. COMMON BILE DUCT: Nondilated at 0.3 cm. AORTA/IVC: Not well visualized. PANCREAS: Visualized portions appearing unremarkable. RIGHT KIDNEY: 11.0 x 4.1 x 3.9 cm. No hydronephrosis. OTHER: None. IMPRESSION: 1. Cirrhotic morphology of the liver. No definitive focal lesion. 2. Abnormal gallbladder wall thickening. Could be owing to underlying chronic liver disease. No definitive gallstones or bile duct dilatation. Dictated by: Dictated on workstation # [id number]
== END ==
LOC: RAD 09:00
PROVIDERS: ATTEND Internal Medicine
DX: K70.30 Alcoholic cirrhosis of liver without ascites (principal); K82.8 Other specified diseases of gallbladder
CPT/HCPCS: 76705

== ENCOUNTER 2021-12-18 04:10 | Emergency (ER) | payer OTHER ==
[~2021-12-18] VITALS: Ht 157.5 cm; Wt 48.6 kg
[2021-12-18] MEDS ORDERED: ONDANSETRON 4 MG/2 ML (SDV) Z0FRAN IVP ONE (04:30)
[2021-12-18] MEDS ORDERED: PANTOPRAZOLE 40 MG (PROTONIX) VIAL IV ONE (04:30)
[2021-12-18] MEDS ORDERED: FAMOTIDINE 20MG/2ML IV (PEPCID) IVP ONE (04:30)
[2021-12-18 04:42] LABS: BASOPHILS # (AUTO) 0.1 10^3/uL (0.0-0.1); BASOPHILS % (AUTO) 1 % (0-10); EOSINOPHILS # (AUTO) 0.2 10^3/uL (0.0-0.3); EOSINOPHILS % (AUTO) 3 % (0-10); HEMATOCRIT 26 % (35-52); HEMOGLOBIN 8.1 g/dL (11.5-16.0); LYMPHOCYTES % (AUTO) 16 % (12-44); MEAN CORPUSCULAR HEMOGLOBIN 25 pg (25-34); MEAN CORPUSCULAR HGB CONC 31 g/dL (32-36); MEAN CORPUSCULAR VOLUME 78 fL (80-99); MONOCYTES # (AUTO) 0.6 10^3/uL (0.0-1.0); MONOCYTES % (AUTO) 10 % (0-12); NEUTROPHILS # (AUTO) 4.2 10^3/uL (1.8-7.8); NEUTROPHILS % (AUTO) 70 % (42-75); PLATELET COUNT 89 10^3/uL (130-400); WHITE BLOOD COUNT 6.1 10^3/uL (4.3-11.0)
[2021-12-18 04:57] LABS: ALBUMIN 3.7 GM/DL (3.2-4.5); CHLORIDE 101 MMOL/L (98-107); POTASSIUM 3.8 MMOL/L (3.6-5.0); SODIUM 134 MMOL/L (135-145)
[2021-12-18 04:58] LABS: CALCIUM 9.3 MG/DL (8.5-10.1)
[2021-12-18 04:59] LABS: GLUCOSE 119 MG/DL (70-105); TOTAL PROTEIN 6.8 GM/DL (6.4-8.2)
[2021-12-18 05:00] LABS: CARBON DIOXIDE 23 MMOL/L (21-32)
[2021-12-18] MEDS ORDERED: NS IV 500 ML 500 ML IV ONE (05:00)
[2021-12-18 05:01] LABS: BILIRUBIN,TOTAL 0.7 MG/DL (0.1-1.0); INR 1.2 (0.8-1.4); PROTHROMBIN TIME PATIENT 15.5 SEC (12.2-14.7)
[2021-12-18 05:03] LABS: ALKALINE PHOSPHATASE 90 U/L (40-136); CREATININE SERUM 0.78 MG/DL (0.60-1.30); GFR ESTIMATED 89
[2021-12-18 05:04] LABS: BUN/CREATININE RATIO 36
[2021-12-18 05:06] LABS: ALANINE AMINOTRANSFERASE 22 U/L (0-55); LIPASE 49 U/L (8-78)
--- NOTE | 2021-12-18 05:07 | ED General ---
General Chief Complaint: Cough/Cold/Flu Symptoms Stated Complaint: THREW UP BLOOD X2,STOMACH PAIN Nursing Triage Note: c/o of "cough since covid last year". She has been prescribed "a bunch of different meds". She reports that 2 days ago she coughed up blood and felt better and then vomited blood at one point as well. Since then she reports intermittent nausea Source of Information: Patient, Old Records Exam Limitations: No Limitations History of Present Illness Date Seen by Provider: December 18, 2021 Time Seen by Provider: 04:17 Initial Comments This 56-year-old woman presents to the emergency room by private vehicle with abdominal pain and hematemesis. She has history of cirrhosis with esophageal varices. Symptoms started on December 14 when she was coughing hard and had coughed up some dark blood. She reports having chronic cough since having COVID-19 last July. She has been undergoing work-up and treatment with her primary care provider for this cough. Symptoms seemed to improve until last night when she developed significant abdominal pain and then vomited about 1 cup of bright red blood at approximately 0300. Her abdominal pain is generalized. 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 [facility]. Her primary care provider is Miroslava Stauffer. Allergies and Home Medications Allergies Coded Allergies: Sulfa (Sulfonamide Antibiotics) (Unverified Allergy, Intermediate, HIVES, 08/27/12) Patient Home Medication List Home Medication List Reviewed: Yes Amoxicillin/Potassium Clav (Augmentin 875-125 Tablet) 1 Each Tablet, 1 EACH PO BID Prescribed by: DORIS GARCIA on 06/14/211830 Hydromorphone HCl (Dilaudid) 2 Mg Tablet, 2 MG PO Q8H PRN for PAIN-SEVERE (8-10) Prescribed by: AZUL EMMANUEL on 04/09/21 2309 Oxycodone Hcl (Oxyir Tablet) 5 Mg Tab, 5 MG PO Q6H PRN for PAIN-MODERATE (5-7) Prescribed by: DORIS GARCIA on 06/14/21 185 Prednisone (Prednisone) 20 Mg Tab, 40 MG PO DAILY Prescribed by: DORIS GARCIA on 06/14/211830 Review of Systems Review of Systems Constitutional: no symptoms reported EENTM: no symptoms reported Respiratory: no symptoms reported Cardiovascular: no symptoms reported Gastrointestinal: see HPI Genitourinary: no symptoms reported : No Musculoskeletal: no symptoms reported Skin: no symptoms reported Psychiatric/Neurological: No Symptoms Reported Hematologic/Lymphatic: See HPI Immunological/Allergic: no symptoms reported Past Vmifxrp-Bftrao-Xewitw Hx Patient Social History Tobacco Use?: No Substance use?: No Alcohol Use?: No Immunizations Up To Date Tetanus Booster (TDap): Less than 5yrs PED Vaccines UTD: No First/Initial COVID19 Vaccinat: unknown dates Second COVID19 Vaccination Edgardo: sep Seasonal Allergies Seasonal Allergies: No Past Medical History Surgery/Hospitalization HX: iron deficiency- anemia Surgeries: Yes ( SECTION 08/2000, OVARY REMOVED 2000) Section, Oophorectomy Respiratory: Yes COPD Currently Using CPAP: No Currently Using BIPAP: No Cardiac: No Neurological: No : No 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 Disorders: No Female 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 Disorders: 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 Sexually Transmitted Disease: No HIV/AIDS: No Genitourinary: No Gastrointestinal: Yes (esophageal varices) Gastrointestinal Bleed, Esophageal Varices, Ulcer, Cirrhosis Musculoskeletal: No Endocrine: No HEENT: No Loss of Vision: Denies Hearing Impairment: Denies Cancer: No Psychosocial: Yes Depression Integumentary: No Blood Disorders: No Adverse Reaction/Blood Tranf: No Family Medical History No Pertinent Family Hx Physical Exam Vital Signs Vital Signs - First Documented 12/18/21 04:10 Temp 36.1 Pulse 76 Resp 20 B/P (MAP) 95/58 (70) Pulse Ox 98 O2 Delivery Room Air Capillary Refill : Less Than 3 Seconds Height, Weight, BMI Height: 5'2.00" Weight: 106lbs. 3.0oz. 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-XII Norm as Tested Skin: Normal Color, Warm/Dry Progress/Results/Core Measures Suspected Sepsis SIRS Temperature: Pulse: 76 Respiratory Rate: 20 Laboratory Tests 12/18/21 04:34: White Blood Count 6.1 Blood Pressure 95 /58 Mean: 70 Laboratory Tests 12/18/21 04:34: Creatinine 0.78, INR Comment 1.2, Platelet Count 89L, Total Bilirubin 0.7 Results/Orders Lab Results Laboratory Tests Test 12/18/21 04:34 12/18/21 06:20 Range/Units White Blood Count 6.1 4.3-11.0 10^3/uL Red Blood Count 3.29 L 3.80-5.11 10^6/uL Hemoglobin 8.1 L 5.8 #*L 11.5-16.0 g/dL Hematocrit 26 L 19 *L 35-52 % Mean Corpuscular Volume 78 L 80-99 fL Mean Corpuscular Hemoglobin 25 25-34 pg Mean Corpuscular Hemoglobin Concent 31 L 32-36 g/dL Red Cell Distribution Width 19.5 H 10.0-14.5 % Platelet Count 89 L 130-400 10^3/uL Mean Platelet Volume 10.0 9.0-12.2 fL Immature Granulocyte % (Auto) 1 % Neutrophils (%) (Auto) 70 42-75 % Lymphocytes (%) (Auto) 16 12-44 % Monocytes (%) (Auto) 10 0-12 % Eosinophils (%) (Auto) 3 0-10 % Basophils (%) (Auto) 1 0-10 % Neutrophils # (Auto) 4.2 1.8-7.8 10^3/uL Lymphocytes # (Auto) 1.0 1.0-4.0 10^3/uL Monocytes # (Auto) 0.6 0.0-1.0 10^3/uL Eosinophils # (Auto) 0.2 0.0-0.3 10^3/uL Basophils # (Auto) 0.1 0.0-0.1 10^3/uL Immature Granulocyte # (Auto) 0.0 0.0-0.1 10^3/uL Prothrombin Time 15.5 H 12.2-14.7 SEC INR Comment 1.2 0.8-1.4 Sodium Level 134 L 135-145 MMOL/L Potassium Level 3.8 3.6-5.0 MMOL/L Chloride Level 101 98-107 MMOL/L Carbon Dioxide Level 23 21-32 MMOL/L Anion Gap 10 5-14 MMOL/L Blood Urea Nitrogen 28 H 7-18 MG/DL Creatinine 0.78 0.60-1.30 MG/DL Estimat Glomerular Filtration Rate 89 BUN/Creatinine Ratio 36 Glucose Level 119 H 70-105 MG/DL Calcium Level 9.3 8.5-10.1 MG/DL Corrected Calcium 9.5 8.5-10.1 MG/DL Total Bilirubin 0.7 0.1-1.0 MG/DL Aspartate Amino Transf (AST/SGOT) 28 5-34 U/L Alanine Aminotransferase (ALT/SGPT) 22 0-55 U/L Alkaline Phosphatase 90 40-136 U/L C-Reactive Protein High Sensitivity 0.05 0.00-0.50 MG/DL Total Protein 6.8 6.4-8.2 GM/DL Albumin 3.7 3.2-4.5 GM/DL Lipase 49 8-78 U/L Serum Alcohol < 10 <10 MG/DL My Orders Orders - YARIEL ROBLES MD Ondansetron Injection (Zofran Injectio (12/18/21 04:30) Pantoprazole Injection (Protonix Injecti (12/18/21 04:30) Famotidine Injection (Pepcid Injection) (12/18/21 04:30) Alcohol (12/18/21 04:18) Cbc With Automated Diff (12/18/21 04:18) Comprehensive Metabolic Panel (12/18/21 04:18) Hs C Reactive Protein (12/18/21 04:18) Lipase (12/18/21 04:18) Protime With Inr (12/18/21 04:18) Ed Iv/Invasive Line Start (12/18/21 04:18) Ns Iv 500 Ml (Sodium Chloride 0.9%) (12/18/21 05:00) Red Cells Leukocytes Reduced (12/18/21 04:58) Type And Screen (12/18/21 04:58) Ns (Ivpb) (Sodium C... W/Octreotide Inj (12/18/21 05:30) Red Cells Leukocytes Reduced (12/18/21 05:37) Fentanyl Inj (Sublimaze Injection) (12/18/21 06:00) Ns Iv 500 Ml (Sodium Chloride 0.9%) (12/18/21 05:48) Hemoglobin And Hematocrit (12/18/21 06:20) Medications Given in ED Vital Signs/I&O 12/18/21 12/18/21 12/18/21 12/18/21 04:10 06:00 06:01 06:04 Temp 36.1 35.3 35.0 35.5 Pulse 76 52 58 77 Resp 20 16 14 16 B/P (MAP) 95/58 (70) 62/46 61/36 100/73 Pulse Ox 98 98 97 97 O2 Delivery Room Air Room Air Room Air 12/18/21 12/18/21 06:04 06:06 Temp 35.5 36.1 Pulse 77 76 Resp 20 16 B/P (MAP) 100/73 100/73 Pulse Ox 97 O2 Delivery Room Air Room Air Capillary Refill : Less Than 3 Seconds Blood Pressure Mean: 70 Progress Note #1: Time: 05:40 Progress Note Patient has a known history of esophageal varices. She was treated with Prot lisbeth 80 mg and Pepcid 20 mg by IV route. She then began actively vomiting blood in a significant quantity of clots. An octreotide drip was then ordered and emergent transfer was sought. [facility] [place] [facility] on ICU diversion. I spoke with Dr. Espinoza (gastroenterology) and Dr. Amos (garment turner) who accepted the patient for transfer. I am presently awaiting bed assignment. Aisha usually receives her GI services at [facility], but with active bleeding she needs to be transferred to the nearest capable facility. Patient expresses understanding. She does not want to fly so we will send her by emergent ground transport. A 500 mL normal saline bolus is being administered. 2 units of PRBC are being crossmatched for transfusion in route. Progress Note #2: Progress Note Patient was experiencing asymptomatic hypotension at the time of transfer. She was receiving 2 units of PRBC at that time. EMS called in route and requested permission to give a gram of TXA by bolus. Order was given. Patient continued to have mild hypotension with EMS but was alert and conversational without significant symptoms of hypotension. Departure Impression Primary Impression: Hematemesis Qualified Codes: K92.0 - Hematemesis Additional Impressions: Esophageal varices Qualified Codes: I85.01 - Esophageal varices with bleeding Abdominal pain Qualified Codes: R10.84 - Generalized abdominal pain Anemia Qualified Codes: D64.9 - Anemia, unspecified Hypotension Qualified Codes: I95.89 - Other hypotension; E86.1 - Hypovolemia Disposition: 01 HOME, SELF-CARE Condition: Improved Transfer Transfer Reason: Exceeds level of care Time Spoke to Accepting Phy: 05:25 Transfer Progress Notes Transfer accepted to [facility] Transfer Time: 06:14 Transfer Facility: [facility] Method of Transfer: EMS Departure-Patient Inst. Referrals: [facility] (PCP) Primary Care Physician MIROSLAVA STAUFFER (Family) Primary Care Physician Copy Copies To 1: MIKE AGUILAR JOSHUA T MD December 18, 2021 05:07
[2021-12-18] MEDS ORDERED: OCTREOTIDE INJECTION 500 MCG in NS (IVPB) 99 ML IV SCH (05:30)
[2021-12-18] MEDS ORDERED: NS IV 500 ML 500 ML ONE (05:48)
[2021-12-18 06:00] VITALS: BP 62/46
[2021-12-18] MEDS ORDERED: fentaNYL INJ 100 MCG/2 ML AMP IVP ONE (06:00)
[2021-12-18 06:01] VITALS: BP 61/36
[2021-12-18 06:04] VITALS: BP 100/73
[2021-12-18 06:06] VITALS: BP 100/73
[2021-12-18 06:41] LABS: HEMOGLOBIN 5.8 g/dL (11.5-16.0)
== END 2021-12-18 06:06 | disposition home or self-care (01) ==
LOC: EDUNIT# 04:10 → ER 04:12
DX: I85.01 Esophageal varices with bleeding (principal); D50.0 Iron deficiency anemia secondary to blood loss (chronic); I95.89 Other hypotension; E86.1 Hypovolemia; Z86.16 Personal history of COVID-19
CPT/HCPCS: 36430; 80053; 83690; 85014; 85018; 85025; 85610; 86141; 86850; 86900; 86901; 86920; 99291; G0480; P9016; 36415; 80320

== ENCOUNTER 2022-01-06 10:46 | Outpatient (RCR) | payer OTHER ==
[2022-01-02 13:33] LABS: BASOPHILS % (AUTO) 1 % (0-10); HEMOGLOBIN 8.6 g/dL (11.5-16.0); MEAN CORPUSCULAR VOLUME 83 fL (80-99); WHITE BLOOD COUNT 3.3 10^3/uL (4.3-11.0)
[2022-01-02 13:35] LABS: EOSINOPHILS # (AUTO) 0.1 10^3/uL (0.0-0.3); EOSINOPHILS % (AUTO) 2 % (0-10); HEMATOCRIT 28 % (35-52); LYMPHOCYTES # (AUTO) 0.5 10^3/uL (1.0-4.0); LYMPHOCYTES % (AUTO) 16 % (12-44); MEAN CORPUSCULAR HEMOGLOBIN 26 pg (25-34); MEAN CORPUSCULAR HGB CONC 31 g/dL (32-36); MEAN PLATELET VOLUME 10.5 fL (9.0-12.2); MONOCYTES # (AUTO) 0.4 10^3/uL (0.0-1.0); MONOCYTES % (AUTO) 11 % (0-12); NEUTROPHILS # (AUTO) 2.3 10^3/uL (1.8-7.8); NEUTROPHILS % (AUTO) 69 % (42-75)
[2022-01-02 13:39] LABS: PLATELET COUNT 78 10^3/uL (130-400)
[2022-01-02 14:10] LABS: ALBUMIN 3.9 GM/DL (3.2-4.5); CALCIUM 9.4 MG/DL (8.5-10.1); CREATININE SERUM 0.85 MG/DL (0.60-1.30); POTASSIUM 4.4 MMOL/L (3.6-5.0); TOTAL PROTEIN 7.1 GM/DL (6.4-8.2)
== END 2022-01-10 | disposition home or self-care (01) ==
LOC: ONC 10:46
PROVIDERS: ATTEND Internal Medicine Hematology & Oncology
DX: D72.819 Decreased white blood cell count, unspecified (principal); D69.59 Other secondary thrombocytopenia; D50.0 Iron deficiency anemia secondary to blood loss (chronic); I85.11 Secondary esophageal varices with bleeding; B18.2 Chronic viral hepatitis C; D61.818 Other pancytopenia; K70.30 Alcoholic cirrhosis of liver without ascites; Z87.891 Personal history of nicotine dependence
CPT/HCPCS: 36415; 80053; 82728; 83540; 83550; 85025; 99213

== ENCOUNTER 2022-02-01 14:21 | Outpatient (RCR) | payer OTHER ==
[2022-01-26 14:43] LABS: BASOPHILS % (AUTO) 1 % (0-10); EOSINOPHILS % (AUTO) 1 % (0-10); HEMATOCRIT 31 % (35-52); HEMOGLOBIN 9.4 g/dL (11.5-16.0); LYMPHOCYTES # (AUTO) 0.5 10^3/uL (1.0-4.0); LYMPHOCYTES % (AUTO) 13 % (12-44); MEAN CORPUSCULAR HEMOGLOBIN 24 pg (25-34); MEAN CORPUSCULAR HGB CONC 31 g/dL (32-36); MEAN CORPUSCULAR VOLUME 77 fL (80-99); MEAN PLATELET VOLUME 10.4 fL (9.0-12.2); MONOCYTES # (AUTO) 0.3 10^3/uL (0.0-1.0); MONOCYTES % (AUTO) 9 % (0-12); NEUTROPHILS # (AUTO) 2.6 10^3/uL (1.8-7.8); NEUTROPHILS % (AUTO) 75 % (42-75); PLATELET COUNT 68 10^3/uL (130-400); WHITE BLOOD COUNT 3.5 10^3/uL (4.3-11.0)
[2022-01-26 15:08] LABS: ALBUMIN 4.2 GM/DL (3.2-4.5); BILIRUBIN,TOTAL 1.1 MG/DL (0.1-1.0); CALCIUM 9.7 MG/DL (8.5-10.1); CREATININE SERUM 0.81 MG/DL (0.60-1.30); POTASSIUM 3.6 MMOL/L (3.6-5.0); TOTAL PROTEIN 7.9 GM/DL (6.4-8.2)
[~2022-02-01 14:21] MED LIST changes: +FERRIC CARBOXYMALTOSE INJ 750 MG in NS (IVPB) 250 ML IV SCH
== END 2022-02-09 | disposition home or self-care (01) ==
LOC: ONC 14:21
PROVIDERS: ATTEND Internal Medicine Hematology & Oncology
DX: D72.819 Decreased white blood cell count, unspecified (principal); D69.59 Other secondary thrombocytopenia; D50.0 Iron deficiency anemia secondary to blood loss (chronic); I85.11 Secondary esophageal varices with bleeding; D61.818 Other pancytopenia; K70.30 Alcoholic cirrhosis of liver without ascites; Z87.891 Personal history of nicotine dependence; R16.1 Splenomegaly, not elsewhere classified
CPT/HCPCS: 36415; 80053; 82728; 83540; 83550; 85025; 96365

== ENCOUNTER → 2022-02-02 | Outpatient (CLI) | payer OTHER ==
[~2022-02-02] VITALS: Ht 157.5 cm; Wt 46.4 kg
[~2022-02-02] MED LIST changes: -FERRIC CARBOXYMALTOSE INJ 750 MG in NS (IVPB) 250 ML IV SCH; +LIDOCAINE 1% INJ 20 ML VIAL INJ ONE
--- NOTE | 2022-02-02 14:40 | Diagnostic Imaging Report ---
INDICATION: Left thyroid nodule. The patient presents for ultrasound-guided fine-needle aspiration and Rotex biopsy. The patient was brought to the sonographic suite and placed on the table in the supine position. Ultrasound imaging of the left neck was performed to evaluate appropriate entry site. Left neck was then prepped and draped in the usual sterile fashion. A small amount of 1% lidocaine was utilized for local anesthesia. Four passes were made into the dominant solid mass left lobe of the thyroid utilizing 25-gauge needles and fine-needle aspiration technique. A single pass was made with a Rotex needle and Rotex biopsy was performed. Hemostasis was obtained. Patient tolerated the procedure well and left the department in stable condition. IMPRESSION: Successful ultrasound-guided fine-needle aspiration and Rotex biopsy of left thyroid lobe mass. Pathology results are currently pending. Dictated by: Dictated on workstation # [id number]
== END ==
LOC: RAD 11:00
PROVIDERS: ATTEND Surgery
DX: E04.1 Nontoxic single thyroid nodule (principal)
CPT/HCPCS: 10005

== ENCOUNTER → 2022-02-24 | Outpatient (CLI) | payer OTHER ==
[~2022-02-24] MED LIST changes: -LIDOCAINE 1% INJ 20 ML VIAL INJ ONE
[2022-02-24 14:13] LABS: TSH (THYROID ANALYZER) 0.25 UIU/ML (0.35-4.94)
[2022-02-24 15:07] LABS: FREE T4 (FREE THYROXINE) 0.83 NG/DL (0.70-1.48)
== END ==
LOC: LAB 13:03
PROVIDERS: ATTEND Physician Assistant
DX: E04.1 Nontoxic single thyroid nodule (principal)
CPT/HCPCS: 36415; 84439; 84443

== ENCOUNTER 2022-03-01 14:49 | Outpatient (RCR) | payer OTHER ==
[2022-02-24 13:21] LABS: HEMOGLOBIN 11.5 g/dL (11.5-16.0); MEAN CORPUSCULAR HEMOGLOBIN 25 pg (25-34)
[2022-02-24 13:23] LABS: BASOPHILS % (AUTO) 1 % (0-10); EOSINOPHILS # (AUTO) 0.1 10^3/uL (0.0-0.3); EOSINOPHILS % (AUTO) 4 % (0-10); HEMATOCRIT 37 % (35-52); LYMPHOCYTES # (AUTO) 0.4 10^3/uL (1.0-4.0); LYMPHOCYTES % (AUTO) 12 % (12-44); MEAN CORPUSCULAR HGB CONC 31 g/dL (32-36); MEAN CORPUSCULAR VOLUME 82 fL (80-99); MEAN PLATELET VOLUME 10.8 fL (9.0-12.2); MONOCYTES # (AUTO) 0.3 10^3/uL (0.0-1.0); MONOCYTES % (AUTO) 10 % (0-12); NEUTROPHILS # (AUTO) 2.5 10^3/uL (1.8-7.8); NEUTROPHILS % (AUTO) 73 % (42-75); PLATELET COUNT 62 10^3/uL (130-400); WHITE BLOOD COUNT 3.5 10^3/uL (4.3-11.0)
[2022-02-24 13:37] LABS: ALBUMIN 4.2 GM/DL (3.2-4.5); BILIRUBIN,TOTAL 1.2 MG/DL (0.1-1.0); CALCIUM 9.8 MG/DL (8.5-10.1); CREATININE SERUM 0.79 MG/DL (0.60-1.30)
== END 2022-03-12 | disposition home or self-care (01) ==
LOC: ONC 14:49
PROVIDERS: ATTEND Internal Medicine Hematology & Oncology
DX: D72.819 Decreased white blood cell count, unspecified (principal); D69.59 Other secondary thrombocytopenia; D50.0 Iron deficiency anemia secondary to blood loss (chronic); I85.11 Secondary esophageal varices with bleeding; D61.818 Other pancytopenia; K70.30 Alcoholic cirrhosis of liver without ascites; Z87.891 Personal history of nicotine dependence
CPT/HCPCS: 36415; 80053; 82728; 83540; 83550; 85025; 99213

== ENCOUNTER → 2022-05-17 | Outpatient (CLI) | payer OTHER ==
[~2022-05-17] MED LIST changes: +RT-ALBUTEROL SULF 2.5 MG/3 ML PRE-MIX VIAL INH ONE
== END ==
LOC: RT 15:30
PROVIDERS: ATTEND Nurse Practitioner Family
DX: R05.9 Cough, unspecified (principal)
CPT/HCPCS: 94060; 94726; 94729

== ENCOUNTER → 2022-06-08 | Outpatient (CLI) | payer OTHER ==
[~2022-06-08] MED LIST changes: -RT-ALBUTEROL SULF 2.5 MG/3 ML PRE-MIX VIAL INH ONE
--- NOTE | 2022-06-08 17:54 | Diagnostic Imaging Report ---
PROCEDURE: US Thyroid. TECHNIQUE: Multiple real-time grayscale images were obtained of the thyroid in various projections. INDICATION: Follow-up multinodular goiter. COMPARISON: 02/02/2022. FINDINGS: Both thyroid lobes demonstrate smooth and homogenous background echotexture. Color flow Doppler demonstrates normal and symmetric vascularity bilaterally. The right lobe measures 4.8 cm in length, 1.5 cm AP and 1.4 cm transverse. The left lobe measures 6.1 cm in length, 2.4 cm AP and 2.9 cm transverse. The isthmus measures 0.2 cm. A heterogeneous solid nodule in the mid right thyroid measures 1.5 x 0.8 x 1.1 cm, similar in size to the prior exam. A part solid part cystic nodule was seen within the mid left lobe of the thyroid measuring 3.0 x 2.0 x 2.8 cm, also not significantly changed since the prior exam. IMPRESSION: Stable multinodular goiter. No new suspicious nodule or interval increase in size in the previously visualized nodules. Given the size and imaging characteristics, continued follow-up is recommended in 12 months with thyroid ultrasound. Dictated by: Dictated on workstation # [id number]
== END ==
LOC: RAD 12:30
PROVIDERS: ATTEND Surgery
DX: E04.2 Nontoxic multinodular goiter (principal)
CPT/HCPCS: 76536

== ENCOUNTER → 2022-08-24 | Outpatient (CLI) | payer OTHER ==
--- NOTE | 2022-08-24 09:48 | Diagnostic Imaging Report ---
PROCEDURE: US Abdomen, limited. TECHNIQUE: Multiple realtime grayscale images were obtained over the abdomen in various projections. INDICATION: Cirrhosis and ascites. Liver is normal in size 13 cm. Portal vein is patent and shows normal direction of flow. The liver demonstrates a nodular contour and heterogeneous parenchyma consistent with cirrhosis. No mass is seen. Gallbladder is without stones or sludge. There is some wall thickening of the gallbladder measuring up to 5 mm. No biliary ductal dilatation is seen. Visualized pancreas unremarkable. Aorta is nonaneurysmal. IVC is patent. Right kidney is unremarkable. There is a small amount of free fluid in the right upper quadrant. Note is made of an enlarged spleen measuring up to approximately 20 cm. IMPRESSION: Findings of cirrhosis and likely portal hypertension with splenomegaly and small amount of ascites. There is some generalized gallbladder wall thickening which may be owing to liver dysfunction. There is no cholelithiasis. No other significant abnormality is seen. Dictated by: Dictated on workstation # [id number]
== END ==
LOC: RAD 07:46
PROVIDERS: ATTEND Internal Medicine
DX: K74.60 Unspecified cirrhosis of liver (principal); R18.8 Other ascites; K82.8 Other specified diseases of gallbladder
CPT/HCPCS: 76705

== ENCOUNTER 2022-08-30 14:02 | Outpatient (RCR) | payer OTHER ==
[2022-08-28 13:20] LABS: BASOPHILS % (AUTO) 1 % (0-10); HEMATOCRIT 39 % (35-52)
[2022-08-28 13:21] LABS: EOSINOPHILS # (AUTO) 0.1 10^3/uL (0.0-0.3); EOSINOPHILS % (AUTO) 4 % (0-10); HEMOGLOBIN 12.5 g/dL (11.5-16.0); LYMPHOCYTES # (AUTO) 0.4 10^3/uL (1.0-4.0); LYMPHOCYTES % (AUTO) 12 % (12-44); MEAN CORPUSCULAR HEMOGLOBIN 28 pg (25-34); MEAN CORPUSCULAR HGB CONC 32 g/dL (32-36); MEAN CORPUSCULAR VOLUME 86 fL (80-99); MEAN PLATELET VOLUME 10.8 fL (9.0-12.2); MONOCYTES # (AUTO) 0.3 10^3/uL (0.0-1.0); MONOCYTES % (AUTO) 10 % (0-12); NEUTROPHILS # (AUTO) 2.3 10^3/uL (1.8-7.8); NEUTROPHILS % (AUTO) 74 % (42-75); WHITE BLOOD COUNT 3.1 10^3/uL (4.3-11.0)
[2022-08-28 13:24] LABS: PLATELET COUNT 54 10^3/uL (130-400)
[2022-08-28 13:53] LABS: ALBUMIN 4.3 GM/DL (3.2-4.5); BILIRUBIN,TOTAL 1.4 MG/DL (0.1-1.0); CALCIUM 9.6 MG/DL (8.5-10.1); CREATININE SERUM 0.82 MG/DL (0.60-1.30); POTASSIUM 3.4 MMOL/L (3.6-5.0)
== END 2022-09-12 | disposition home or self-care (01) ==
LOC: ONC 14:02
PROVIDERS: ATTEND Internal Medicine Hematology & Oncology
DX: K74.60 Unspecified cirrhosis of liver (principal); I85.10 Secondary esophageal varices without bleeding; D69.59 Other secondary thrombocytopenia; B18.2 Chronic viral hepatitis C; D50.9 Iron deficiency anemia, unspecified; R16.1 Splenomegaly, not elsewhere classified
CPT/HCPCS: 36415; 80053; 82728; 83540; 83550; 85025; 99213

== ENCOUNTER 2023-02-21 14:52 | Outpatient (RCR) | payer OTHER ==
[2023-02-16 12:36] LABS: HEMOGLOBIN 12.5 g/dL (11.5-16.0)
[2023-02-16 12:38] LABS: BASOPHILS % (AUTO) 1 % (0-10); EOSINOPHILS # (AUTO) 0.1 10^3/uL (0.0-0.3); EOSINOPHILS % (AUTO) 4 % (0-10); HEMATOCRIT 38 % (35-52); LYMPHOCYTES # (AUTO) 0.5 10^3/uL (1.0-4.0); LYMPHOCYTES % (AUTO) 16 % (12-44); MEAN CORPUSCULAR HEMOGLOBIN 28 pg (25-34); MEAN CORPUSCULAR HGB CONC 33 g/dL (32-36); MEAN CORPUSCULAR VOLUME 85 fL (80-99); MEAN PLATELET VOLUME 11.1 fL (9.0-12.2); MONOCYTES # (AUTO) 0.3 10^3/uL (0.0-1.0); MONOCYTES % (AUTO) 8 % (0-12); NEUTROPHILS # (AUTO) 2.3 10^3/uL (1.8-7.8); NEUTROPHILS % (AUTO) 71 % (42-75); WHITE BLOOD COUNT 3.2 10^3/uL (4.3-11.0)
[2023-02-16 12:39] LABS: PLATELET COUNT 50 10^3/uL (130-400)
[2023-02-16 12:47] LABS: ALBUMIN 4.2 GM/DL (3.2-4.5); POTASSIUM 3.7 MMOL/L (3.6-5.0)
[2023-02-16 12:48] LABS: CALCIUM 9.3 MG/DL (8.5-10.1)
[2023-02-16 12:49] LABS: TOTAL PROTEIN 7.8 GM/DL (6.4-8.2)
[2023-02-16 12:51] LABS: BILIRUBIN,TOTAL 1.2 MG/DL (0.1-1.0)
[2023-02-16 12:53] LABS: CREATININE SERUM 0.76 MG/DL (0.60-1.30)
== END 2023-03-12 | disposition home or self-care (01) ==
LOC: ONC 14:52
PROVIDERS: ATTEND Internal Medicine Hematology & Oncology
DX: D72.819 Decreased white blood cell count, unspecified (principal); D69.59 Other secondary thrombocytopenia; K74.60 Unspecified cirrhosis of liver; I85.10 Secondary esophageal varices without bleeding; B18.2 Chronic viral hepatitis C; D50.9 Iron deficiency anemia, unspecified; R16.1 Splenomegaly, not elsewhere classified
CPT/HCPCS: 36415; 80053; 82728; 83540; 83550; 85025